=== PATIENT | female | born 1935 | race Caucasian/White ===

== ENCOUNTER 2016-10-11 04:00 | Inpatient (IN) | payer MEDICARE ==
[~2016-10-11] VITALS: Ht 160 cm; Wt 78.4 kg
[~2016-10-11 04:00] MED LIST: ACET500T68 PO; AMLO10TA2 PO; ASPI-612 PO; ATOR40TA59 PO; BYSTOLIC10 MG PO; CALC-104 PO; CELE200C PO; CHOL200074 PO; CLON0.3T PO; CLOP75TA PO; DOCU-150 PO; DOXA2TAB2 PO; FURO80TA3 PO; HYDR-2758 PO; INSU100V11 IJ; ISOS60TA2 PO; LOSA100T6 PO; MECL12.52 PO; MECL25TA3 PO; MELO7.5T29 PO; METF850T2 PO; METO25TA4 PO; NIFE90TA7 PO; NPH,100V SQ; OMEP40CA5 PO; POTA10TA31 PO; POTASSIUM CHLO10 MEQ PO; SPIR25TA3 PO; WARF2.5T83 PO; WARF2TAB7 PO; WARF5TAB7 PO
--- NOTE | 2016-10-11 04:12 | PHYS DOC ---
Past Medical History Past Medical History: CAD, Cancer, CHF, Diabetes-Type II, Hypertension, NV, Other Additional Past Medical Histor: menieres, breast cancer - L lumpectomy, cellulitis - BLE, Past Surgical History: Appendectomy, Cholecystectomy, Hysterectomy, Knee Replacement, Tonsillectomy, Other Additional Past Surgical Histo: lumpectomy in left breast, 2 CARDIAC STENTS AND 3 BALLOONS Alcohol Use: None Drug Use: None Adult General Chief Complaint Chief Complaint: CHEST PAIN HPI HPI Patient is a 81 year old F who presents with chest pain that started at 1 AM this morning. Patient states she woke up with chest pain on her left side nonradiating. Patient has a history of 2 MIs with stents placement in the past. Patient history of PEs and is currently on Coumadin. Patient is brought in by EMS given aspirin and nitroglycerin in route which has brought her pain down to a 5 out of 10. Patient denies any fevers. Patient denies any shortness of breath. Patient denies any nausea/vomiting/diarrhea. Patient has no other complaints. Liquor Clerk: Dr. Cast Pertinent exam findings: 4/ LIZZIE, heart was regular rate and rhythm Lungs are clear to auscultation bilaterally without crackles wheezes or rales ED course: Patient is seen and evaluated upon arrival CBC, CMP, troponin, EKG, INR, chest x -ray, CT angios chest were ordered 0435: Patient's chest pain has improved with some medical nitroglycerin given in the emergency room 0440: Dr. Prater paged 0445: Dr. Benton paged 0450: Dr. Prater called back and stated Dr. Cast is taking call this morning 0453: Discussed CC/HP/PMH with Dr. Benton and recommends Texting EKGs 0456: Dr. Benton agreed that the EKGs do not show a STEMI 0456: Dr. Cast has been paged 0505: Dr. Cast was re-paged 0510: Unable to get a hold of Dr. Cast 0533: Discussed CC/HP/PMH with Dr. Prater and recommends admit to the hospitalist and put Dr. Cast on consult 0543: Discussed CC/HP/PMH with Dr. Reyes and recommends admit 0550: Explained results and plan with the patient to admit and start a heparin drip and consult cardiology [] Pertinent results: 0407: EKG shows normal sinus rhythm rate of 100 no STEMI compared to EKG from May 15, 2016 the lateral depressions were present 0430: Repeat EKG shows normal sinus rhythm rate of [address] changes are still present compared to prior EKG 0445; repeat EKG shows normal sinus rhythm rate of 93 no STEMI and no overall change from previous 2 EKGs Troponin is elevated 0.631 MDM: After reviewing the chart, CC/HPI/PMH, physical exam, [lab results], [ radiological results], I do not believe the patient having a STEMI however given the patient's EKG findings, cardiac history, elevated troponin I believe the patient is having and NSTEMI and will be placed on a heparin drip and admitted to the CVC to the hospitalist with Dr. Cast on consult. After multiple attempts to get a hold of Dr. Cast who admits his own patients we discussed the plan with Dr. Prater who wanted the patient admitted to the hospitalist and have Dr. Cast on consult. Review of Systems Review of Systems GEN: Denies fevers, chills, sweats HEENT: Denies blurred vision, sore throat CV: chest pain RESP: Denies shortness of air, cough GI: Denies n/v/d NEURO: Denies confusion, dizziness MSK: Denies weakness, joint pain/swelling Current Medications Current Medications Current Medications Medications (Trade) Dose Ordered Sig/Huyen Start Time Stop Time Status Last Admin Dose Admin Heparin Sodium (Porcine) (Heparin Sodium) 1,900 unit PRN Q6HRS PRN 10/11/16 05:45 Heparin Sodium/ Dextrose 500 ml @ 0 mls/hr CONT PRN 10/11/16 05:45 Nitroglycerin (Nitrostat) 0.4 mg PRN Q5MIN PRN 10/11/16 04:15 10/11/16 04:55 0.4 MG Sodium Chloride 500 ml @ 500 mls/hr 1X ONCE 10/11/16 04:30 10/11/16 05:29 DC 10/11/16 04:25 500 MLS/HR Allergies Allergies Allergies Coded Allergies Type Severity Reaction Last Updated Verified Iodinated Contrast Media - Oral and Allergy Severe Anaphylaxis 03/18/16 Yes adhesive tape Allergy Intermediate 03/19/16 Yes meperidine Adverse Reaction Intermediate Vomiting 04/19/16 Yes Physical Exam Physical Exam GEN.: No apparent distress. Alert and oriented. HEENT: Head is normocephalic, atraumatic NECK: Supple. LUNGS: CTAB. HEART: RRR, 4/6 LIZZIE. Peripheral pulses intact ABDOMEN: Soft, nontender. Positive bowel sounds. EXTREMITIES: Without any cyanosis. NEUROLOGIC: Normal speech, normal tone PSYCHIATRIC: Normal affect, normal mood. SKIN: No ulcerations Current Patient Data Vital Signs Vital Signs Date Time Temp Pulse Resp B/P (MAP) Pulse Ox O2 Delivery O2 Flow Rate FiO2 10/11/16 04:55 90 179/81 10/11/16 04:40 18 94 Nasal Cannula 2.0 10/11/16 04:11 98.5 98.5 Lab Values Laboratory Tests Test 10/11/16 04:10 White Blood Count 8.4 x10^3/uL (4.0-11.0) Red Blood Count 3.35 x10^6/uL (3.50-5.40) L Hemoglobin 9.8 g/dL (12.0-15.5) L Hematocrit 29.7 % (36.0-47.0) L Mean Corpuscular Volume 89 fL (79-100) Mean Corpuscular Hemoglobin 29 pg (25-35) Mean Corpuscular Hemoglobin Concent 33 g/dL (31-37) Red Cell Distribution Width 15.7 % (11.5-14.5) H Platelet Count 352 x10^3/uL (140-400) Neutrophils (%) (Auto) 77 % (31-73) H Lymphocytes (%) (Auto) 12 % (24-48) L Monocytes (%) (Auto) 7 % (0-9) Eosinophils (%) (Auto) 4 % (0-3) H Basophils (%) (Auto) 1 % (0-3) Neutrophils # (Auto) 6.4 x10^3uL (1.8-7.7) Lymphocytes # (Auto) 1.0 x10^3/uL (1.0-4.8) Monocytes # (Auto) 0.6 x10^3/uL (0.0-1.1) Eosinophils # (Auto) 0.3 x10^3/uL (0.0-0.7) Basophils # (Auto) 0.1 x10^3/uL (0.0-0.2) Prothrombin Time 14.4 SEC (11.7-14.0) H Prothrombin Time INR 1.2 (0.8-1.1) H Sodium Level 134 mmol/L (136-145) L Potassium Level 4.4 mmol/L (3.5-5.1) Chloride Level 99 mmol/L (98-107) Carbon Dioxide Level 30 mmol/L (21-32) Anion Gap 5 (6-14) L Blood Urea Nitrogen 18 mg/dL (7-20) Creatinine 1.0 mg/dL (0.6-1.0) Estimated GFR (Cockcroft-Gault) 53.3 BUN/Creatinine Ratio 18 (6-20) Glucose Level 356 mg/dL (70-99) H Calcium Level 10.5 mg/dL (8.5-10.1) H Total Bilirubin 0.3 mg/dL (0.2-1.0) Aspartate Amino Transferase (AST) 18 U/L (15-37) Alanine Aminotransferase (ALT) 18 U/L (14-59) Alkaline Phosphatase 131 U/L (46-116) H Troponin I Quantitative 0.631 ng/mL (0.000-0.055) Total Protein 7.3 g/dL (6.4-8.2) Albumin 2.2 g/dL (3.4-5.0) L Albumin/Globulin Ratio 0.4 (1.0-1.7) L Laboratory Tests 10/11/16 04:10 Laboratory Tests 10/11/16 04:10 EKG EKG 0407: EKG shows normal sinus rhythm rate of 100 no STEMI compared to EKG from May 15, 2016 the lateral depressions were present 0430: Repeat EKG shows normal sinus rhythm rate of [address] changes are still present compared to prior EKG 0445; repeat EKG shows normal sinus rhythm rate of 93 no STEMI and no overall change from previous 2 EKGs Radiology/Procedures Radiology/Procedures Chest x-ray shows improvement of pulmonary congestion in the lower lobes bilaterally [] Course & Med Decision Making Course & Med Decision Making Pertinent Labs and Imaging studies reviewed. (See chart for details) Critical care time was 35 minutes exclusive of procedures. [] Dragon Disclaimer Dragon Disclaimer This electronic medical record was generated, in whole or in part, using a voice recognition dictation system. Departure Departure Impression: Primary Impression: NSTEMI (non-ST elevated myocardial infarction) Disposition: 09 ADMITTED INPATIENT Admitting Physician: Disha Reyes Condition: STABLE Referrals: ROSELIA KUMAR MD (PCP) JAMEEL CASTILLO DO Oct 11, 2016 04:12
[2016-10-11] MEDS ORDERED: IV NORMAL SALINE 1000ML BAG 1,000 ML IV ONE (04:15)
[2016-10-11 04:21] LABS: BASO # 0.1 x10^3/uL (0.0-0.2); BASO % 1 % (0-3); EOS % 4 % (0-3); HEMATOCRIT 29.7 % (36.0-47.0); HEMOGLOBIN 9.8 g/dL (12.0-15.5); LYMPH % 12 % (24-48); MEAN CORPUSCULAR HEMOGLOBIN 29 pg (25-35); MEAN CORPUSCULAR HGB CONC 33 g/dL (31-37); MEAN CORPUSCULAR VOLUME 89 fL (79-100); MONO % 7 % (0-9); NEUT % 77 % (31-73); PLATELET COUNT 352 x10^3/uL (140-400); RED BLOOD COUNT 3.35 x10^6/uL (3.50-5.40); RED CELL DISTRIBUTION WIDTH 15.7 % (11.5-14.5); WHITE BLOOD COUNT 8.4 x10^3/uL (4.0-11.0)
[2016-10-11] MEDS: NITROGLYCERIN SUBLINGUAL 0.4 MG BOTTLE OF 25. SL PRN ×2 (04:25→04:55)
[2016-10-11 04:29] LABS: INR 1.2 (0.8-1.1); PROTHROMBIN TIME PATIENT 14.4 SEC (11.7-14.0)
[2016-10-11] MEDS ORDERED: IV NORMAL SALINE 500ML BAG 500 ML IV ONE (04:30)
[2016-10-11 04:36] LABS: CALCIUM 10.5 mg/dL (8.5-10.1); GFR 53.3; POTASSIUM 4.4 mmol/L (3.5-5.1)
[2016-10-11 04:40] LABS: ALBUMIN 2.2 g/dL (3.4-5.0); ALBUMIN/GLOBULIN RATIO 0.4 (1.0-1.7); TOTAL BILIRUBIN 0.3 mg/dL (0.2-1.0); TOTAL PROTEIN 7.3 g/dL (6.4-8.2)
[2016-10-11] MEDS ORDERED: HEPARIN for IV BOLUS 10,000 UNIT/10 ML VIAL. IV PRN (05:45)
[2016-10-11] MEDS ORDERED: MORPHINE SULFATE 4 MG/ML DISP.SYRIN. IV PRN (06:00)
[2016-10-11] MEDS ORDERED: ONDANSETRON PF 4 MG/2 ML VIAL. IV PRN ×2 (06:00→08:36)
[2016-10-11] MEDS ORDERED: NITROGLYCERIN SUBLINGUAL 0.4 MG BOTTLE OF 25. SL PRN (06:00)
[2016-10-11] MEDS ORDERED: ACETAMINOPHEN 325 MG TABLET. PO PRN (06:00)
[2016-10-11] MEDS: HEPARIN 25,000UTS/500ML PREMIX 500 ML IV PRN ×2 (06:06→10:00)
--- NOTE | 2016-10-11 07:02 | EKG ---
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
--- NOTE | 2016-10-11 07:08 | EKG ---
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
--- NOTE | 2016-10-11 07:08 | EKG ---
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
--- NOTE | 2016-10-11 07:31 | RAD ---
Indication chest pain. A single view of the chest was obtained. Comparison is made to a study May 22, 2016. There is unchanged cardiomegaly. There are bilateral pulmonary infiltrates compatible with congestive heart failure. A consolidated pneumonia is not seen. Significant pleural fluid is not present. There is no pneumothorax. There are degenerative changes about the shoulders. IMPRESSION: Stable cardiomegaly. Pulmonary infiltrates compatible with congestive heart failure. No focal consolidated process seen
--- NOTE | 2016-10-11 07:35 | ACF ---
Admission Forms Criteria MYOCARDIAL INFARCTION Clinical Indications for Admission to Inpatient Care (Place 'X' for any and all applicable criteria): Admission is indicated for 1 or more of the following (1)(2)(3)(4): [X]I. Acute IN [ ]II. Contraindications and/or Inappropriate clinical situations for Observational Care in patients with Myocardial Infarction, when ANY ONE of the following is required: [ ]a) Patient with High risk of cardiac embolism (e.g, patients with previous cardiac embolism, LVEF < 40%, age >75 and patients with prosthetic valve) 18 [ ]b) Patient with Moderate risk including DM patient, CAD and patient aged 65-75 18 [ ]c) Patient with any change in cardiac biomarker especially troponin should be managed as high risk in an inpatient setting 19 [ ]d) Physician judgement irrespective of ECG and other diagnostic findings 20 [ ]III.General contraindications and/or Inappropriate clinical situations for Observational Care in patients with Myocardial Infarction, when ANY ONE of the following is required: [ ]a) Prediction of prolongation of LOS based on ANY ONE of the following may be considered as a contraindication for observational care 2, 3, 4, 5, 6, 7, 8, 9, 10, 11 [ ]i) Age > 65 yrs. [ ]ii) Patient arriving by ambulance [ ]iii) Patient with high acuity [ ]iv) Patient requiring vital sign monitoring [ ]v) Patient on IV medication [ ]b) Systolic blood pressures greater than or equal to 180mmHg 3,12 [ ]c) Patient with altered mental status including delirium and other alteration of consciousness, (3) [ ]d) Patient whose discharge disposition will be to a senior living home or rehabilitation home should not be managed in Emergency Department Observation Unit. CMS rule requires 3 days hospital stay before such placement. 3,13 [ ]e) Patient with failure to thrive due to broad array of etiologies 3 ,16,17 [ ]f) Inability to ambulate 3,14 Extended stay beyond goal length of stay may be needed for (1)(18)(20)(24)(25): [ ]a) Hemodynamic instability, persisting symptoms after intensive medical management, or recurring severe, prolonged symptoms [ ]b) Intravascular procedural complications such as acute vessel closure, stent thrombosis, stent malposition, or vessel dissection (26)(27)(28) [ ]c) Extravascular procedural complications such as retroperitoneal hematoma , pericardial effusion, or cardiac tamponade [ ]d) Entry site complications causing bleeding, hematoma or distal ischemia and requiring ongoing monitoring, surgical repair or surgical thrombectomy. Dangerous arrhythmia [ ]e) Complicated percutaneous coronary intervention (e.g., unsuccessful percutaneous coronary intervention or percutaneous coronary intervention of non- [place] vessel) [ ]f) Urgent or emergent surgery for complications of IN (e.g., ventricular rupture, valvular insufficiency) [ ]g) Surgical revascularization via coronary artery bypass graft [ ]h) Heart failure (e.g., pulmonary edema) [ ]i) Unstable pulmonary comorbidities, including COPD or pneumonia (31) [ ]j) Acute renal failure The original [employer] content created by [employer] has been revised. The portions of the content which have been revised are identified through the use of italic text or in bold, and [facility] [employer] has neither reviewed nor approved the modified material. All other unmodified content is copyright [employer] [facility] [employer] Please see references footnoted in the original [facility] [employer] center[facility] edition 2016 Admission Criteria Met?: Yes TITO MULLINS Oct 11, 2016 07:35
[2016-10-11 08:22] VITALS: BP 166/69
[2016-10-11] MEDS ORDERED: LABETALOL 20 MG/4 ML DISP.SYRIN. IVP PRN (08:45)
[2016-10-11] MEDS ORDERED: HYDROcodone/APAP 5/325MG 1 TAB TABLET PO PRN (08:45)
[2016-10-11] MEDS ORDERED: ACETAMINOPHEN 500 MG TABLET PO PRN (08:45)
[2016-10-11] MEDS ORDERED: DEXTROSE 50% 25 GM / 50ML DISP.SYRIN. IV PRN (08:45)
[2016-10-11] MEDS ORDERED: ASPIRIN ENTERIC COATED 81 MG TABLET.DR. PO SCH (09:00)
[2016-10-11] MEDS: FUROSEMIDE 80 MG TABLET. PO SCH ×2 (09:00→15:13)
[2016-10-11] MEDS: CLOPIDOGREL BISULFATE 75 MG TABLET PO SCH (09:00)
[2016-10-11] MEDS ORDERED: INSULIN ASPART 300 UNITS/3 ML INSULN.PEN SQ ONE (09:45)
[2016-10-11] MEDS: INSULIN DETEMIR 300 UNITS/3 ML INSULN.PEN. SQ SCH ×2 (10:00→21:00)
--- NOTE | 2016-10-11 11:43 | PDOC1 ---
History and Physical Date of Admission Date of Admission DATE: 10/11/16 TIME: 11:36 Identification/Chief Complaint Chief Complaint cp at sleep Problems: Source Source: Caregiver, Chart review, Patient History of Present Illness History of Present Illness 81 [address] Coronado for 30 yrs, i last admitted within the past yr for CHF, she does have extensive cardiac hx including IE? [place] before. This time, CP that woke her up from sleep, similar to CP she had when she had the SD in spet. Left sided, sharp, alleviated by meds at ER,. Admitted for nSTEMi, some ST t wave depression, Started on heparin gtt, Trops 0.6 Currently comfortable. Past Medical History Cardiovascular: CAD, CHF, HTN, SD, Valve insufficiency, Pulmonary hypertension GI: GERD, Gastritis Heme/Onc: Cancer Renal/: Chronic renal insuff Endocrine: Diabetes Past Surgical History Past Surgical History: Pacemaker, Other Family History Family History: No Significant, Diabetes, Hypertension Social History Smoke: No ALCOHOL: none Drugs: None Current Problem List Problem List Problems Medical Problems: (1) NSTEMI (non-ST elevated myocardial infarction) Status: Acute Problems: Current Medications Current Medications Current Medications Sodium Chloride 1,000 ml @ 1,000 mls/hr 1X ONCE IV ; Start 10/11/16 at 04:15; Stop 10/11/16 at 04:17; Status DC Nitroglycerin (Nitrostat) 0.4 mg PRN Q5MIN PRN SL CHEST PAIN Last administered on 10/11/16 04:55; Start 10/11/16 at 04:15 Sodium Chloride 500 ml @ 500 mls/hr 1X ONCE IV Last administered on 10/11/16 04:25; Start 10/11/16 at 04:30; Stop 10/11/16 at 05:29; Status DC Heparin Sodium/ Dextrose 500 ml @ 0 mls/hr CONT PRN IV SEE I/O RECORD Last administered on 10/11/16 06:06; Start 10/11/16 at 05:45 Heparin Sodium (Porcine) (Heparin Sodium) 1,900 unit PRN Q6HRS PRN IV FOR UFH LEVEL LESS THAN 0.2 Last administered on 10/11/16 06:04; Start 10/11/16 at 05:45 Ondansetron HCl (Zofran) 4 mg PRN Q8HRS PRN IV NAUSEA/VOMITING; Start 10/11/16 at 06:00; Stop 10/11/16 at 08:38; Status DC Morphine Sulfate 4 mg PRN Q2HR PRN IV PAIN; Start 10/11/16 at 06:00; Stop at 05:59 Acetaminophen (Tylenol) 650 mg PRN Q4HRS PRN PO FEVER; Start 10/11/16 at 06:00; Stop 10/11/16 at 09:49; Status DC Nitroglycerin (Nitrostat) 0.4 mg PRN Q5MIN PRN SL CHEST PAIN; Start 10/11/16 at 06:00; Stop 10/12/16 at 05:59 Ondansetron HCl (Zofran) 4 mg PRN Q6HRS PRN IV NAUSEA/VOMITING; Start 10/11/16 at 08:36; Stop 10/12/16 at 08:35 Acetaminophen (Tylenol) 500 mg PRN QID PRN PO PAIN; Start 10/11/16 at 08:45 Amlodipine Besylate (Norvasc) 10 mg DAILY PO ; Start 10/11/16 at 09:00 Aspirin (Ecotrin) 325 mg DAILY PO ; Start 10/11/16 at 09:00 Atorvastatin Calcium (Lipitor) 40 mg HS PO ; Start 10/11/16 at 21:00 Clopidogrel Bisulfate (Plavix) 75 mg QODAY PO ; Start 10/11/16 at 09:00 Docusate Sodium (Colace) 200 mg HS PO ; Start 10/11/16 at 21:00 Furosemide (Lasix) 80 mg BID92 PO ; Start 10/11/16 at 09:00 Acetaminophen/ Hydrocodone Bitart (Lortab 5/325) 1 tab PRN Q12HR PRN PO PAIN; Start 10/11/16 at 08:45 Isosorbide Mononitrate (Imdur) 60 mg DAILY PO ; Start 10/11/16 at 09:00 Meclizine HCl (Antivert) 12.5 mg BID PO ; Start 10/11/16 at 09:00 Meloxicam (Mobic) 7.5 mg DAILY PO ; Start 10/11/16 at 09:00 Metoprolol Tartrate (Lopressor) 25 mg BID PO ; Start 10/11/16 at 09:00 Spironolactone (Aldactone) 25 mg DAILY PO ; Start 10/11/16 at 09:00 Warfarin Sodium (Coumadin) 2.5 mg QTUTHSASU PO ; Start 10/11/16 at 16:00 Calcium/Vitamin D (Oscal D 500mg/ 200uts) 1 tab DAILYWBKFT PO ; Start 10/11/16 at 10:00 Vitamin D (Vitamin D3) 2,000 unit DAILY PO ; Start 10/11/16 at 10:00 Losartan Potassium (Cozaar) 50 mg DAILY PO ; Start 10/11/16 at 10:00 Insulin Detemir (Levemir) 20 units QHS SQ ; Start 10/11/16 at 21:00 Insulin Detemir (Levemir) 40 units DAILYWBKFT SQ ; Start 10/11/16 at 10:00 Pantoprazole Sodium (Protonix) 40 mg DAILYAC PO ; Start 10/11/16 at 11:30 Potassium Chloride (Klor-Con) 10 meq MoWeFr PO ; Start 10/11/16 at 08:00 Insulin Aspart (NovoLOG) 0-9 UNITS TIDWMEALS SQ ; Start 10/11/16 at 12:00 Dextrose (Dextrose 50%-Water Syringe) 12.5 gm PRN Q15MIN PRN IV SEE COMMENTS; Start 10/11/16 at 08:45 Labetalol HCl (Normodyne) 10 mg PRN Q2HR PRN IVP HYPERTENSION, SEE COMMENTS; Start 10/11/16 at 08:45 Insulin Aspart (NovoLOG) 12 units 1X ONCE SQ Last administered on 10/11/16t 09: 56; Start 10/11/16 at 09:45; Stop 10/11/16 at 09:46; Status DC Warfarin Sodium (Coumadin Per Physician) 1 each PRN DAILY PRN MC SEE COMMENTS; Start 10/11/16 at 09:45 Active Scripts Active Reported Clopidogrel (Clopidogrel Bisulfate) 75 Mg Tablet 1 Tab PO QODAY Metoprolol Tartrate 25 Mg Tablet 1 Tab PO BID Acetaminophen 500 Mg Tablet 500 Mg PO PRN PRN Warfarin Sodium 2 Mg Tablet 2.5 Mg PO QTUTHSASU Potassium Chloride 10 Meq Capsule.er 10 Meq PO 3X/WEEK Omeprazole 40 Mg Capsule.dr 1 Cap PO DAILYAC Meloxicam 7.5 Mg Tablet 1 Tab PO DAILY Meclizine Hcl 12.5 Mg Tablet 1 Tab PO BID Hydrocodone-Apap 5-325 (Hydrocodone Bit/Acetaminophen) 1 Each Tablet 1 Tab PO Q12HR PRN Humulin N (Nph, Human Insulin Isophane) 100 Unit/1 Ml Vial 20 Unit SQ HS Humulin N (Nph, Human Insulin Isophane) 100 Unit/1 Ml Vial 40 Unit SQ DAILYWBKFT Spironolactone 25 Mg Tablet 25 Mg PO DAILY Furosemide 80 Mg Tablet 80 Mg PO BID Stool Softener (Docusate Sodium) 100 Mg Capsule 200 Mg PO HS Amlodipine Besylate 10 Mg Tablet 10 Mg PO DAILY Losartan Potassium 100 Mg Tablet 100 Mg PO DAILY Atorvastatin Calcium 40 Mg Tablet 40 Mg PO HS Citracal + D Maximum Caplet (Calcium Citrate/Vitamin D3) 1 Each Tablet 1 Each PO DAILY Isosorbide Mononitrate Er (Isosorbide Mononitrate) 60 Mg Tab.er.24h 60 Mg PO DAILY Vitamin D-3 (Cholecalciferol (Vitamin D3)) 2,000 Unit Capsule 2,000 Unit PO DAILY Aspirin Ec (Aspirin) 81 Mg Tablet.dr 325 Mg PO DAILY Allergies Allergies: Coded Allergies: Iodinated Contrast Media - Oral and (Verified Allergy, Severe, Anaphylaxis , 03/18/16) adhesive tape (Verified Allergy, Intermediate, 03/19/16) meperidine (Verified Adverse Reaction, Intermediate, Vomiting, 04/19/16) ROS General: No: Chills, Night Sweats, Fatigue, Malaise, Appetite, Other PSYCHOLOGICAL ROS: No: Anxiety, Behavioral Disorder, Concentration difficultie , Decreased libido, Depression, Disorientation, Hallucinations, Hostility, Irritablity, Memory difficulties, Mood Swings, Obsessive thoughts, Physical abuse, Sexual abuse, Sleep disturbances, Suicidal ideation, Other Eyes: No Blurry vision, No Decreased vision, No Double vision, No Dry eyes, No Excessive tearing, No Eye Pain, No Itchy Eyes, No Loss of vision, No Photophobia , No Scotomata, No Uses contacts, No Uses glasses, No Other HEENT: No: Heacaches, Visual Changes, Hearing change, Nasal congestion, Nasal discharge, Oral lesions, Sinus pain, Sore Throat, Epistaxis, Sneezing, Snoring, Tinnitus, Vertigo, Vocal changes, Other ALLERGY AND IMMUNOLOGY: No: Hives, Insect Bite Sensitivity, Itchy/Watery Eyes, Nasal Congestion, Post Nasal Drip, Seasonal Allergies, Other Hematological and Lymphatic: No: Bleeding Problems, Blood Clots, Blood Transfusions, Brusing, Night Sweats, Pallor, Swollen Lymph Nodes, Other ENDOCRINE: No: Breast Changes, Galactorrhea, Hair Pattern Changes, Hot Flashes , Malaise/lethargy, Mood Swings, Palpitations, Polydipsia/polyuria, Skin Changes , Temperature Intolerance, Unexpected Weight Changes, Other Breast: No New/Changing Breast Lumps, No Nipple changes, No Nipple discharge, No Other Respiratory: No: Cough, Hemoptysis, Orthopnea, Pleuritic Pain, Shortness of breath, SOB with excertion, Sputum Changes, Stridor, Tachypnea, Wheezing, Other Cardiovascular: yes Chest Pain Gastrointestinal: No Nausea, No Vomiting, No Abdominal Pain, No Diarrhea, No Constipation, No Melena, No Hematochezia, No Other Genitourinary: No Dysuria, No Frequency, No Incontinence, No Hematuria, No Retention, No Discharge, No Urgency, No Pain, No Flank Pain, No Other, No , No , No , No , No , No , No Musculoskeletal: No Gait Disturbance, No Joint Pain, No Joint Stiffness, No Joint Swelling, No Muscle Pain, No Muscular Weakness, No Pain In:, No Swelling In:, No Other Neurological: No Behavorial Changes, No Bowel/Bladder ControlChng, No Confusion , No Dizziness, No Gait Disturbance, No Headaches, No Impaired Coord/balance, No Memory Loss, No Numbness/Tingling, No Seizures, No Speech Problems, No Tremors, No Visual Changes, No Weakness, No Other Skin: No Dry Skin, No Eczema, No Hair Changes, No Lumps, No Mole Changes, No Mottling, No Nail Changes, No Pruritus, No Rash, No Skin Lesion Changes, No Other, No Acne Physical Exam General: Alert, Oriented X3, Cooperative, No acute distress HEENT: PERRLA, EOMI Lungs: Clear to auscultation, Normal air movement Heart: S1S2, RRR, no thrills, no rubs, no gallops, no murmurs Cardiovascular: S1, S2 Breasts: Normal, Rt breast nml w/o mass, Lt breast nml w/o mass, Nipples normal Abdomen: Normal bowel sounds, Soft, No tenderness, No hepatosplenomegaly, No masses Rectal Exam: not examined Extremities: No clubbing, No cyanosis, No edema, Normal pulses, No tenderness/ swelling Skin: No rashes, No breakdown, No significant lesion Neuro: Normal gait, Normal speech, Strength at 5/5 X4 ext, Normal tone, Sensation intact, Cranial nerves 3-12 NL, Reflexes 2+ Psych/Mental Status: Mental status NL, Mood NL Vitals Vitals Vital Signs Date Time Temp Pulse Resp B/P (MAP) Pulse Ox O2 Delivery O2 Flow Rate FiO2 10/11/16 08:22 97.9 17 166/69 (101) 97 Room Air 97.9 10/11/16 07:40 2.0 10/11/16 06:31 80 Labs Labs Laboratory Tests Test 10/11/16 04:10 10/11/16 08:34 White Blood Count 8.4 x10^3/uL (4.0-11.0) Red Blood Count 3.35 x10^6/uL (3.50-5.40) Hemoglobin 9.8 g/dL (12.0-15.5) Hematocrit 29.7 % (36.0-47.0) Mean Corpuscular Volume 89 fL (79-100) Mean Corpuscular Hemoglobin 29 pg (25-35) Mean Corpuscular Hemoglobin Concent 33 g/dL (31-37) Red Cell Distribution Width 15.7 % (11.5-14.5) Platelet Count 352 x10^3/uL (140-400) Neutrophils (%) (Auto) 77 % (31-73) Lymphocytes (%) (Auto) 12 % (24-48) Monocytes (%) (Auto) 7 % (0-9) Eosinophils (%) (Auto) 4 % (0-3) Basophils (%) (Auto) 1 % (0-3) Neutrophils # (Auto) 6.4 x10^3uL (1.8-7.7) Lymphocytes # (Auto) 1.0 x10^3/uL (1.0-4.8) Monocytes # (Auto) 0.6 x10^3/uL (0.0-1.1) Eosinophils # (Auto) 0.3 x10^3/uL (0.0-0.7) Basophils # (Auto) 0.1 x10^3/uL (0.0-0.2) Prothrombin Time 14.4 SEC (11.7-14.0) Prothromb Time International Ratio 1.2 (0.8-1.1) Sodium Level 134 mmol/L (136-145) Potassium Level 4.4 mmol/L (3.5-5.1) Chloride Level 99 mmol/L (98-107) Carbon Dioxide Level 30 mmol/L (21-32) Anion Gap 5 (6-14) Blood Urea Nitrogen 18 mg/dL (7-20) Creatinine 1.0 mg/dL (0.6-1.0) Estimated GFR (Cockcroft-Gault) 53.3 BUN/Creatinine Ratio 18 (6-20) Glucose Level 356 mg/dL (70-99) Calcium Level 10.5 mg/dL (8.5-10.1) Total Bilirubin 0.3 mg/dL (0.2-1.0) Aspartate Amino Transf (AST/SGOT) 18 U/L (15-37) Alanine Aminotransferase (ALT/SGPT) 18 U/L (14-59) Alkaline Phosphatase 131 U/L (46-116) Troponin I Quantitative 0.631 ng/mL (0.000-0.055) Total Protein 7.3 g/dL (6.4-8.2) Albumin 2.2 g/dL (3.4-5.0) Albumin/Globulin Ratio 0.4 (1.0-1.7) Glucose (Fingerstick) 354 mg/dL (70-99) Laboratory Tests Test 10/11/16 04:10 10/11/16 08:34 White Blood Count 8.4 x10^3/uL (4.0-11.0) Red Blood Count 3.35 x10^6/uL (3.50-5.40) Hemoglobin 9.8 g/dL (12.0-15.5) Hematocrit 29.7 % (36.0-47.0) Mean Corpuscular Volume 89 fL (79-100) Mean Corpuscular Hemoglobin 29 pg (25-35) Mean Corpuscular Hemoglobin Concent 33 g/dL (31-37) Red Cell Distribution Width 15.7 % (11.5-14.5) Platelet Count 352 x10^3/uL (140-400) Neutrophils (%) (Auto) 77 % (31-73) Lymphocytes (%) (Auto) 12 % (24-48) Monocytes (%) (Auto) 7 % (0-9) Eosinophils (%) (Auto) 4 % (0-3) Basophils (%) (Auto) 1 % (0-3) Neutrophils # (Auto) 6.4 x10^3uL (1.8-7.7) Lymphocytes # (Auto) 1.0 x10^3/uL (1.0-4.8) Monocytes # (Auto) 0.6 x10^3/uL (0.0-1.1) Eosinophils # (Auto) 0.3 x10^3/uL (0.0-0.7) Basophils # (Auto) 0.1 x10^3/uL (0.0-0.2) Prothrombin Time 14.4 SEC (11.7-14.0) Prothromb Time International Ratio 1.2 (0.8-1.1) Sodium Level 134 mmol/L (136-145) Potassium Level 4.4 mmol/L (3.5-5.1) Chloride Level 99 mmol/L (98-107) Carbon Dioxide Level 30 mmol/L (21-32) Anion Gap 5 (6-14) Blood Urea Nitrogen 18 mg/dL (7-20) Creatinine 1.0 mg/dL (0.6-1.0) Estimated GFR (Cockcroft-Gault) 53.3 BUN/Creatinine Ratio 18 (6-20) Glucose Level 356 mg/dL (70-99) Calcium Level 10.5 mg/dL (8.5-10.1) Total Bilirubin 0.3 mg/dL (0.2-1.0) Aspartate Amino Transf (AST/SGOT) 18 U/L (15-37) Alanine Aminotransferase (ALT/SGPT) 18 U/L (14-59) Alkaline Phosphatase 131 U/L (46-116) Troponin I Quantitative 0.631 ng/mL (0.000-0.055) Total Protein 7.3 g/dL (6.4-8.2) Albumin 2.2 g/dL (3.4-5.0) Albumin/Globulin Ratio 0.4 (1.0-1.7) Glucose (Fingerstick) 354 mg/dL (70-99) VTE Prophylaxis Ordered VTE Prophylaxis Devices: Yes VTE Pharmacological Prophylaxi: Yes Assessment/Plan Assessment/Plan 1. NSTEMI 2. DM 2 on insulin, uncontrolled 3. 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 ARF, vasomotor DNR in [place] past but full code in chart now PLAn: Admit CArds consult Follow cards recs SSI resume home meds STarted on heparin gtt ON warf TTHSat INR 1,.2 only ALso on heparin gtt and plavix and ASA - will dw cards JOVANA GARCIA MD Oct 11, 2016 11:43
[2016-10-11 11:50] VITALS: BP 162/72
[2016-10-11] MEDS: LOSARTAN POTASSIUM 50 MG TABLET. PO SCH (12:39)
[2016-10-11] MEDS: CALCIUM CARB/VIT D3 500/200 TABLET. PO SCH (12:40)
[2016-10-11] MEDS: PANTOPRAZOLE 40 MG TABLET.DR. PO SCH (12:40)
[2016-10-11] MEDS: CHOLECALCIFEROL (VITAMIN D3) 1,000 UNIT TABLET PO SCH (12:40)
[2016-10-11] MEDS: POTASSIUM CHLORIDE 10 MEQ TABLET.ER. PO SCH (12:40)
[2016-10-11] MEDS: METOPROLOL TART IMMED RELEASE 25 MG TABLET. PO SCH ×2 (12:40→21:00)
[2016-10-11] MEDS: SPIRONOLACTONE 25 MG TABLET PO SCH (12:40)
[2016-10-11] MEDS: ISOSORBIDE MONONITRATE ER 60 MG TAB.ER.24H. PO SCH (12:40)
[2016-10-11] MEDS: MECLIZINE HCL 12.5 MG TABLET. PO SCH ×2 (12:41→21:00)
[2016-10-11] MEDS: amLODIPine BESYLATE 10 MG TABLET PO SCH (12:41)
[2016-10-11] MEDS: MELOXICAM 7.5 MG TABLET PO SCH (12:41)
[2016-10-11] MEDS: INSULIN ASPART 300 UNITS/3 ML INSULN.PEN SQ SCH ×2 (12:48→17:52)
[2016-10-11 15:00] VITALS: BP 148/68
[2016-10-11] MEDS: ASPIRIN ENTERIC COATED 325 MG TABLET.DR. PO SCH (15:13)
[2016-10-11] MEDS: WARFARIN 2.5 MG TABLET. PO SCH (16:00)
[2016-10-11 19:05] VITALS: BP 159/67
[2016-10-11] MEDS: DOCUSATE SODIUM 100 MG CAPSULE. PO SCH (21:00)
[2016-10-11] MEDS: ATORVASTATIN CALCIUM 40 MG TABLET. PO SCH (21:00)
--- NOTE | 2016-10-11 21:12 | PDOC2 ---
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 She has completed weeks of IV antibiotics. The patient had some episodes of chest pains that were on the left side and came in. There was a mild elevation of the troponin and no significant changes in her EKG. At the time that I saw her she was resting comfortably and denies having any chest pains. No dyspnea at this point. Past Medical History Cardiovascular: CAD, CHF, HTN, VA, Valve insufficiency, Pulmonary hypertension , Other (SBE) GI: GERD, Gastritis Heme/Onc: Cancer Renal/: Chronic renal insuff Endocrine: Diabetes Past Surgical History Past Surgical History: Pacemaker, Other Family History Family History: No Significant, Diabetes, Hypertension Social History No ALCOHOL: none Drugs: None Lives: with Family Current Problem List Problem List Problems Medical Problems: (1) NSTEMI (non-ST elevated myocardial infarction) Status: Acute Current Medications Current Medications Current Medications Sodium Chloride 1,000 ml @ 1,000 mls/hr 1X ONCE IV ; Start 10/11/16 at 04:15; Stop 10/11/16 at 04:17; Status DC Nitroglycerin (Nitrostat) 0.4 mg PRN Q5MIN PRN SL CHEST PAIN Last administered on 10/11/16 04:55; Start 10/11/16 at 04:15 Sodium Chloride 500 ml @ 500 mls/hr 1X ONCE IV Last administered on 10/11/16 04:25; Start 10/11/16 at 04:30; Stop 10/11/16 at 05:29; Status DC Heparin Sodium/ Dextrose 500 ml @ 0 mls/hr CONT PRN IV SEE I/O RECORD Last administered on 10/11/16 06:06; Start 10/11/16 at 05:45 Heparin Sodium (Porcine) (Heparin Sodium) 1,900 unit PRN Q6HRS PRN IV FOR UFH LEVEL LESS THAN 0.2 Last administered on 10/11/16 06:04; Start 10/11/16 at 05:45 Ondansetron HCl (Zofran) 4 mg PRN Q8HRS PRN IV NAUSEA/VOMITING; Start 10/11/16 at 06:00; Stop 10/11/16 at 08:38; Status DC Morphine Sulfate 4 mg PRN Q2HR PRN IV PAIN; Start 10/11/16 at 06:00; Stop at 05:59 Acetaminophen (Tylenol) 650 mg PRN Q4HRS PRN PO FEVER; Start 10/11/16 at 06:00; Stop 10/11/16 at 09:49; Status DC Nitroglycerin (Nitrostat) 0.4 mg PRN Q5MIN PRN SL CHEST PAIN; Start 10/11/16 at 06:00; Stop 10/12/16 at 05:59 Ondansetron HCl (Zofran) 4 mg PRN Q6HRS PRN IV NAUSEA/VOMITING; Start 10/11/16 at 08:36; Stop 10/12/16 at 08:35 Acetaminophen (Tylenol) 500 mg PRN QID PRN PO PAIN; Start 10/11/16 at 08:45 Amlodipine Besylate (Norvasc) 10 mg DAILY PO Last administered on 10/11/16 12: 41; Start 10/11/16 at 09:00 Aspirin (Ecotrin) 325 mg DAILY PO ; Start 10/11/16 at 09:00; Status Cancel Atorvastatin Calcium (Lipitor) 40 mg HS PO Last administered on 10/11/16 21:00 ; Start 10/11/16 at 21:00 Clopidogrel Bisulfate (Plavix) 75 mg QODAY PO ; Start 10/11/16 at 09:00 Docusate Sodium (Colace) 200 mg HS PO Last administered on 10/11/16 21:00; Start 10/11/16 at 21:00 Furosemide (Lasix) 80 mg BID92 PO Last administered on 10/11/16 15:13; Start at 09:00 Acetaminophen/ Hydrocodone Bitart (Lortab 5/325) 1 tab PRN Q12HR PRN PO PAIN; Start 10/11/16 at 08:45 Isosorbide Mononitrate (Imdur) 60 mg DAILY PO Last administered on 10/11/16 12: 40; Start 10/11/16 at 09:00 Meclizine HCl (Antivert) 12.5 mg BID PO Last administered on 10/11/16 21:00; Start 10/11/16 at 09:00 Meloxicam (Mobic) 7.5 mg DAILY PO Last administered on 10/11/16 12:41; Start at 09:00 Metoprolol Tartrate (Lopressor) 25 mg BID PO Last administered on 10/11/16 21: 00; Start 10/11/16 at 09:00 Spironolactone (Aldactone) 25 mg DAILY PO Last administered on 10/11/16 12:40; Start 10/11/16 at 09:00 Warfarin Sodium (Coumadin) 2.5 mg QTUTHSASU PO ; Start 10/11/16 at 16:00 Calcium/Vitamin D (Oscal D 500mg/ 200uts) 1 tab DAILYWBKFT PO Last administered on 10/11/16 12:40; Start 10/11/16 at 10:00 Vitamin D (Vitamin D3) 2,000 unit DAILY PO Last administered on 10/11/16 12:40 ; Start 10/11/16 at 10:00 Losartan Potassium (Cozaar) 50 mg DAILY PO Last administered on 10/11/16 12:39 ; Start 10/11/16 at 10:00 Insulin Detemir (Levemir) 20 units QHS SQ Last administered on 10/11/16 21:00; Start 10/11/16 at 21:00 Insulin Detemir (Levemir) 40 units DAILYWBKFT SQ ; Start 10/11/16 at 10:00 Pantoprazole Sodium (Protonix) 40 mg DAILYAC PO Last administered on 10/11/16 12:40; Start 10/11/16 at 11:30 Potassium Chloride (Klor-Con) 10 meq MoWeFr PO Last administered on 10/11/16 12 :40; Start 10/11/16 at 08:00 Insulin Aspart (NovoLOG) 0-9 UNITS TIDWMEALS SQ Last administered on 10/11/16 17:52; Start 10/11/16 at 12:00 Dextrose (Dextrose 50%-Water Syringe) 12.5 gm PRN Q15MIN PRN IV SEE COMMENTS; Start 10/11/16 at 08:45 Labetalol HCl (Normodyne) 10 mg PRN Q2HR PRN IVP HYPERTENSION, SEE COMMENTS; Start 10/11/16 at 08:45 Insulin Aspart (NovoLOG) 12 units 1X ONCE SQ Last administered on 10/11/16 09: 56; Start 10/11/16 at 09:45; Stop 10/11/16 at 09:46; Status DC Warfarin Sodium (Coumadin Per Physician) 1 each PRN DAILY PRN MC SEE COMMENTS Last administered on 10/11/16 14:23; Start 10/11/16 at 09:45 Aspirin (Ecotrin) 325 mg DAILY PO Last administered on 10/11/16 15:13; Start at 13:00 Active Scripts Active Reported Clopidogrel (Clopidogrel Bisulfate) 75 Mg Tablet 1 Tab PO QODAY Metoprolol Tartrate 25 Mg Tablet 1 Tab PO BID Acetaminophen 500 Mg Tablet 500 Mg PO PRN PRN Warfarin Sodium 2 Mg Tablet 2.5 Mg PO QTUTHSASU Potassium Chloride 10 Meq Capsule.er 10 Meq PO 3X/WEEK Omeprazole 40 Mg Capsule.dr 1 Cap PO DAILYAC Meloxicam 7.5 Mg Tablet 1 Tab PO DAILY Meclizine Hcl 12.5 Mg Tablet 1 Tab PO BID Hydrocodone-Apap 5-325 (Hydrocodone Bit/Acetaminophen) 1 Each Tablet 1 Tab PO Q12HR PRN Humulin N (Nph, Human Insulin Isophane) 100 Unit/1 Ml Vial 20 Unit SQ HS Humulin N (Nph, Human Insulin Isophane) 100 Unit/1 Ml Vial 40 Unit SQ DAILYWBKFT Spironolactone 25 Mg Tablet 25 Mg PO DAILY Furosemide 80 Mg Tablet 80 Mg PO BID Stool Softener (Docusate Sodium) 100 Mg Capsule 200 Mg PO HS Amlodipine Besylate 10 Mg Tablet 10 Mg PO DAILY Losartan Potassium 100 Mg Tablet 100 Mg PO DAILY Atorvastatin Calcium 40 Mg Tablet 40 Mg PO HS Citracal + D Maximum Caplet (Calcium Citrate/Vitamin D3) 1 Each Tablet 1 Each PO DAILY Isosorbide Mononitrate Er (Isosorbide Mononitrate) 60 Mg Tab.er.24h 60 Mg PO DAILY Vitamin D-3 (Cholecalciferol (Vitamin D3)) 2,000 Unit Capsule 2,000 Unit PO DAILY Aspirin Ec (Aspirin) 81 Mg Tablet. 325 Mg PO DAILY Allergies Allergies: Coded Allergies: Iodinated Contrast Media - Oral and (Verified Allergy, Severe, Anaphylaxis , 03/18/16) adhesive tape (Verified Allergy, Intermediate, 03/19/16) meperidine (Verified Adverse Reaction, Intermediate, Vomiting, 04/19/16) Physical Exam Physical Exam H EENT pupils are responsive. Oral mucosa well-hydrated. Neck is supple no JVD. Lungs moving air normally. No wheezing no Rales. Heart regular rate. S1-S2, no changes in her systolic murmur. Abdomen is soft bowel sounds are present Extremities no edema Vitals VITALS Vital Signs Date Time Temp Pulse Resp B/P (MAP) Pulse Ox O2 Delivery O2 Flow Rate FiO2 10/11/16 21:00 74 159/67 10/11/16 20:06 Nasal Cannula 2.0 10/11/16 19:05 99.8 18 88 99.8 Labs Labs Laboratory Tests Test 10/11/16 04:10 10/11/16 08:34 10/11/16 12:18 10/11/16 13:15 White Blood Count 8.4 x10^3/uL (4.0-11.0) Red Blood Count 3.35 x10^6/uL (3.50-5.40) Hemoglobin 9.8 g/dL (12.0-15.5) Hematocrit 29.7 % (36.0-47.0) Mean Corpuscular Volume 89 fL (79-100) Mean Corpuscular Hemoglobin 29 pg (25-35) Mean Corpuscular Hemoglobin Concent 33 g/dL (31-37) Red Cell Distribution Width 15.7 % (11.5-14.5) Platelet Count 352 x10^3/uL (140-400) Neutrophils (%) (Auto) 77 % (31-73) Lymphocytes (%) (Auto) 12 % (24-48) Monocytes (%) (Auto) 7 % (0-9) Eosinophils (%) (Auto) 4 % (0-3) Basophils (%) (Auto) 1 % (0-3) Neutrophils # (Auto) 6.4 x10^3uL (1.8-7.7) Lymphocytes # (Auto) 1.0 x10^3/uL (1.0-4.8) Monocytes # (Auto) 0.6 x10^3/uL (0.0-1.1) Eosinophils # (Auto) 0.3 x10^3/uL (0.0-0.7) Basophils # (Auto) 0.1 x10^3/uL (0.0-0.2) Prothrombin Time 14.4 SEC (11.7-14.0) Prothromb Time International Ratio 1.2 (0.8-1.1) Sodium Level 134 mmol/L (136-145) Potassium Level 4.4 mmol/L (3.5-5.1) Chloride Level 99 mmol/L (98-107) Carbon Dioxide Level 30 mmol/L (21-32) Anion Gap 5 (6-14) Blood Urea Nitrogen 18 mg/dL (7-20) Creatinine 1.0 mg/dL (0.6-1.0) Estimated GFR (Cockcroft-Gault) 53.3 BUN/Creatinine Ratio 18 (6-20) Glucose Level 356 mg/dL (70-99) Calcium Level 10.5 mg/dL (8.5-10.1) Total Bilirubin 0.3 mg/dL (0.2-1.0) Aspartate Amino Transf (AST/SGOT) 18 U/L (15-37) Alanine Aminotransferase (ALT/SGPT) 18 U/L (14-59) Alkaline Phosphatase 131 U/L (46-116) Troponin I Quantitative 0.631 ng/mL (0.000-0.055) Total Protein 7.3 g/dL (6.4-8.2) Albumin 2.2 g/dL (3.4-5.0) Albumin/Globulin Ratio 0.4 (1.0-1.7) Glucose (Fingerstick) 354 mg/dL (70-99) 155 mg/dL (70-99) Heparin Anti-Xa Act, Unfractionated < 0.10 IU/mL (0.30-0.70) Test 10/11/16 17:23 10/11/16 20:59 Glucose (Fingerstick) 217 mg/dL (70-99) 244 mg/dL (70-99) Laboratory Tests Test 10/11/16 04:10 10/11/16 08:34 10/11/16 12:18 10/11/16 13:15 White Blood Count 8.4 x10^3/uL (4.0-11.0) Red Blood Count 3.35 x10^6/uL (3.50-5.40) Hemoglobin 9.8 g/dL (12.0-15.5) Hematocrit 29.7 % (36.0-47.0) Mean Corpuscular Volume 89 fL (79-100) Mean Corpuscular Hemoglobin 29 pg (25-35) Mean Corpuscular Hemoglobin Concent 33 g/dL (31-37) Red Cell Distribution Width 15.7 % (11.5-14.5) Platelet Count 352 x10^3/uL (140-400) Neutrophils (%) (Auto) 77 % (31-73) Lymphocytes (%) (Auto) 12 % (24-48) Monocytes (%) (Auto) 7 % (0-9) Eosinophils (%) (Auto) 4 % (0-3) Basophils (%) (Auto) 1 % (0-3) Neutrophils # (Auto) 6.4 x10^3uL (1.8-7.7) Lymphocytes # (Auto) 1.0 x10^3/uL (1.0-4.8) Monocytes # (Auto) 0.6 x10^3/uL (0.0-1.1) Eosinophils # (Auto) 0.3 x10^3/uL (0.0-0.7) Basophils # (Auto) 0.1 x10^3/uL (0.0-0.2) Prothrombin Time 14.4 SEC (11.7-14.0) Prothromb Time International Ratio 1.2 (0.8-1.1) Sodium Level 134 mmol/L (136-145) Potassium Level 4.4 mmol/L (3.5-5.1) Chloride Level 99 mmol/L (98-107) Carbon Dioxide Level 30 mmol/L (21-32) Anion Gap 5 (6-14) Blood Urea Nitrogen 18 mg/dL (7-20) Creatinine 1.0 mg/dL (0.6-1.0) Estimated GFR (Cockcroft-Gault) 53.3 BUN/Creatinine Ratio 18 (6-20) Glucose Level 356 mg/dL (70-99) Calcium Level 10.5 mg/dL (8.5-10.1) Total Bilirubin 0.3 mg/dL (0.2-1.0) Aspartate Amino Transf (AST/SGOT) 18 U/L (15-37) Alanine Aminotransferase (ALT/SGPT) 18 U/L (14-59) Alkaline Phosphatase 131 U/L (46-116) Troponin I Quantitative 0.631 ng/mL (0.000-0.055) Total Protein 7.3 g/dL (6.4-8.2) Albumin 2.2 g/dL (3.4-5.0) Albumin/Globulin Ratio 0.4 (1.0-1.7) Glucose (Fingerstick) 354 mg/dL (70-99) 155 mg/dL (70-99) Heparin Anti-Xa Act, Unfractionated < 0.10 IU/mL (0.30-0.70) Test 10/11/16 17:23 10/11/16 20:59 Glucose (Fingerstick) 217 mg/dL (70-99) 244 mg/dL (70-99) Assessment/Plan Assessment/Plan This patient comes in after an episode of chest pains and may have had a non- STEMI she has multiple problems including known coronary artery disease, SBE, CAD, and renal failure. At this time I would like to treat the patient in a conservative fashion, medically. She had been recently in my office and we had a long discussion about this and had decided on a conservative approach. I will be happy to follow the patient with you. Thank you very much for asking me to participate in the care of this patient WILLY GURROLA MD Oct 11, 2016 21:12
[2016-10-11 23:05] VITALS: BP 120/59
[2016-10-12 03:05] VITALS: BP 134/62
[2016-10-12 03:58] LABS: BASO # 0.1 x10^3/uL (0.0-0.2); BASO % 1 % (0-3); EOS % 3 % (0-3); HEMATOCRIT 25.5 % (36.0-47.0); HEMOGLOBIN 8.6 g/dL (12.0-15.5); LYMPH # 1.5 x10^3/uL (1.0-4.8); LYMPH % 19 % (24-48); MEAN CORPUSCULAR HEMOGLOBIN 30 pg (25-35); MEAN CORPUSCULAR HGB CONC 34 g/dL (31-37); MEAN CORPUSCULAR VOLUME 88 fL (79-100); MONO % 9 % (0-9); NEUT % 68 % (31-73); PLATELET COUNT 293 x10^3/uL (140-400); RED CELL DISTRIBUTION WIDTH 16.3 % (11.5-14.5); WHITE BLOOD COUNT 7.5 x10^3/uL (4.0-11.0)
[2016-10-12 04:14] LABS: CALCIUM 9.4 mg/dL (8.5-10.1); GFR 53.3; POTASSIUM 3.7 mmol/L (3.5-5.1)
[2016-10-12 07:41] VITALS: BP 148/89
[2016-10-12] MEDS: INSULIN ASPART 300 UNITS/3 ML INSULN.PEN SQ SCH ×3 (08:00→17:18)
[2016-10-12] MEDS: PANTOPRAZOLE 40 MG TABLET.DR. PO SCH (08:21)
[2016-10-12] MEDS: MELOXICAM 7.5 MG TABLET PO SCH (08:21)
[2016-10-12] MEDS: MECLIZINE HCL 12.5 MG TABLET. PO SCH ×2 (08:21→21:03)
[2016-10-12] MEDS: SPIRONOLACTONE 25 MG TABLET PO SCH (08:22)
[2016-10-12] MEDS: CALCIUM CARB/VIT D3 500/200 TABLET. PO SCH (08:23)
[2016-10-12] MEDS: CHOLECALCIFEROL (VITAMIN D3) 1,000 UNIT TABLET PO SCH (08:23)
[2016-10-12] MEDS: ASPIRIN ENTERIC COATED 325 MG TABLET.DR. PO SCH (08:24)
[2016-10-12] MEDS: FUROSEMIDE 80 MG TABLET. PO SCH ×2 (08:24→14:40)
[2016-10-12] MEDS: amLODIPine BESYLATE 10 MG TABLET PO SCH (08:25)
[2016-10-12] MEDS: METOPROLOL TART IMMED RELEASE 25 MG TABLET. PO SCH ×2 (08:25→21:03)
[2016-10-12] MEDS: ISOSORBIDE MONONITRATE ER 60 MG TAB.ER.24H. PO SCH (08:26)
[2016-10-12] MEDS: LOSARTAN POTASSIUM 50 MG TABLET. PO SCH (08:26)
[2016-10-12] MEDS: INSULIN DETEMIR 300 UNITS/3 ML INSULN.PEN. SQ SCH ×2 (08:36→21:11)
[2016-10-12 10:51] VITALS: BP 142/66
--- NOTE | 2016-10-12 13:35 | PDOC ---
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 5 d/w daughter SSI History of Present Illness History of Present Illness NO CHEST PAIN WEAKNESS MILD FEVERS. Vitals Vitals Vital Signs Date Time Temp Pulse Resp B/P (MAP) Pulse Ox O2 Delivery O2 Flow Rate FiO2 10/12/16 10:51 99.5 65 21 142/66 (91) 97 Nasal Cannula 2.0 99.5 Physical Exam General: Alert, Oriented X3, Cooperative, No acute distress Heart: Normal S1 Lungs: Clear Abdomen: Normal bowel sounds, Soft, No tenderness, No hepatosplenomegaly, No masses Extremities: No clubbing, No cyanosis, No edema, Normal pulses, No tenderness/ swelling Skin: No rashes, No breakdown, No significant lesion Labs LABS Laboratory Tests Test 10/11/16 17:23 10/11/16 20:59 10/12/16 03:20 10/12/16 07:43 Glucose (Fingerstick) 217 mg/dL (70-99) 244 mg/dL (70-99) 102 mg/dL (70-99) White Blood Count 7.5 x10^3/uL (4.0-11.0) Red Blood Count 2.90 x10^6/uL (3.50-5.40) Hemoglobin 8.6 g/dL (12.0-15.5) Hematocrit 25.5 % (36.0-47.0) Mean Corpuscular Volume 88 fL (79-100) Mean Corpuscular Hemoglobin 30 pg (25-35) Mean Corpuscular Hemoglobin Concent 34 g/dL (31-37) Red Cell Distribution Width 16.3 % (11.5-14.5) Platelet Count 293 x10^3/uL (140-400) Neutrophils (%) (Auto) 68 % (31-73) Lymphocytes (%) (Auto) 19 % (24-48) Monocytes (%) (Auto) 9 % (0-9) Eosinophils (%) (Auto) 3 % (0-3) Basophils (%) (Auto) 1 % (0-3) Neutrophils # (Auto) 5.1 x10^3uL (1.8-7.7) Lymphocytes # (Auto) 1.5 x10^3/uL (1.0-4.8) Monocytes # (Auto) 0.7 x10^3/uL (0.0-1.1) Eosinophils # (Auto) 0.2 x10^3/uL (0.0-0.7) Basophils # (Auto) 0.1 x10^3/uL (0.0-0.2) Sodium Level 137 mmol/L (136-145) Potassium Level 3.7 mmol/L (3.5-5.1) Chloride Level 101 mmol/L (98-107) Carbon Dioxide Level 31 mmol/L (21-32) Anion Gap 5 (6-14) Blood Urea Nitrogen 18 mg/dL (7-20) Creatinine 1.0 mg/dL (0.6-1.0) Estimated GFR (Cockcroft-Gault) 53.3 Glucose Level 162 mg/dL (70-99) Calcium Level 9.4 mg/dL (8.5-10.1) Test 10/12/16 13:08 Glucose (Fingerstick) 134 mg/dL (70-99) Assessment and Plan Assessmemt and Plan Problems Medical Problems: (1) NSTEMI (non-ST elevated myocardial infarction) Status: Acute Problems: Comment Review of Relevant I have reviewed the following items alejandra (where applicable) has been applied. Labs Laboratory Tests Test 10/11/16 04:10 10/11/16 08:34 10/11/16 12:18 10/11/16 13:15 White Blood Count 8.4 x10^3/uL (4.0-11.0) Red Blood Count 3.35 x10^6/uL (3.50-5.40) Hemoglobin 9.8 g/dL (12.0-15.5) Hematocrit 29.7 % (36.0-47.0) Mean Corpuscular Volume 89 fL (79-100) Mean Corpuscular Hemoglobin 29 pg (25-35) Mean Corpuscular Hemoglobin Concent 33 g/dL (31-37) Red Cell Distribution Width 15.7 % (11.5-14.5) Platelet Count 352 x10^3/uL (140-400) Neutrophils (%) (Auto) 77 % (31-73) Lymphocytes (%) (Auto) 12 % (24-48) Monocytes (%) (Auto) 7 % (0-9) Eosinophils (%) (Auto) 4 % (0-3) Basophils (%) (Auto) 1 % (0-3) Neutrophils # (Auto) 6.4 x10^3uL (1.8-7.7) Lymphocytes # (Auto) 1.0 x10^3/uL (1.0-4.8) Monocytes # (Auto) 0.6 x10^3/uL (0.0-1.1) Eosinophils # (Auto) 0.3 x10^3/uL (0.0-0.7) Basophils # (Auto) 0.1 x10^3/uL (0.0-0.2) Prothrombin Time 14.4 SEC (11.7-14.0) Prothromb Time International Ratio 1.2 (0.8-1.1) Sodium Level 134 mmol/L (136-145) Potassium Level 4.4 mmol/L (3.5-5.1) Chloride Level 99 mmol/L (98-107) Carbon Dioxide Level 30 mmol/L (21-32) Anion Gap 5 (6-14) Blood Urea Nitrogen 18 mg/dL (7-20) Creatinine 1.0 mg/dL (0.6-1.0) Estimated GFR (Cockcroft-Gault) 53.3 BUN/Creatinine Ratio 18 (6-20) Glucose Level 356 mg/dL (70-99) Calcium Level 10.5 mg/dL (8.5-10.1) Total Bilirubin 0.3 mg/dL (0.2-1.0) Aspartate Amino Transf (AST/SGOT) 18 U/L (15-37) Alanine Aminotransferase (ALT/SGPT) 18 U/L (14-59) Alkaline Phosphatase 131 U/L (46-116) Troponin I Quantitative 0.631 ng/mL (0.000-0.055) Total Protein 7.3 g/dL (6.4-8.2) Albumin 2.2 g/dL (3.4-5.0) Albumin/Globulin Ratio 0.4 (1.0-1.7) Glucose (Fingerstick) 354 mg/dL (70-99) 155 mg/dL (70-99) Heparin Anti-Xa Act, Unfractionated < 0.10 IU/mL (0.30-0.70) Test 10/11/16 17:23 10/11/16 20:59 10/12/16 03:20 10/12/16 07:43 Glucose (Fingerstick) 217 mg/dL (70-99) 244 mg/dL (70-99) 102 mg/dL (70-99) White Blood Count 7.5 x10^3/uL (4.0-11.0) Red Blood Count 2.90 x10^6/uL (3.50-5.40) Hemoglobin 8.6 g/dL (12.0-15.5) Hematocrit 25.5 % (36.0-47.0) Mean Corpuscular Volume 88 fL (79-100) Mean Corpuscular Hemoglobin 30 pg (25-35) Mean Corpuscular Hemoglobin Concent 34 g/dL (31-37) Red Cell Distribution Width 16.3 % (11.5-14.5) Platelet Count 293 x10^3/uL (140-400) Neutrophils (%) (Auto) 68 % (31-73) Lymphocytes (%) (Auto) 19 % (24-48) Monocytes (%) (Auto) 9 % (0-9) Eosinophils (%) (Auto) 3 % (0-3) Basophils (%) (Auto) 1 % (0-3) Neutrophils # (Auto) 5.1 x10^3uL (1.8-7.7) Lymphocytes # (Auto) 1.5 x10^3/uL (1.0-4.8) Monocytes # (Auto) 0.7 x10^3/uL (0.0-1.1) Eosinophils # (Auto) 0.2 x10^3/uL (0.0-0.7) Basophils # (Auto) 0.1 x10^3/uL (0.0-0.2) Sodium Level 137 mmol/L (136-145) Potassium Level 3.7 mmol/L (3.5-5.1) Chloride Level 101 mmol/L (98-107) Carbon Dioxide Level 31 mmol/L (21-32) Anion Gap 5 (6-14) Blood Urea Nitrogen 18 mg/dL (7-20) Creatinine 1.0 mg/dL (0.6-1.0) Estimated GFR (Cockcroft-Gault) 53.3 Glucose Level 162 mg/dL (70-99) Calcium Level 9.4 mg/dL (8.5-10.1) Test 10/12/16 13:08 Glucose (Fingerstick) 134 mg/dL (70-99) Laboratory Tests Test 10/11/16 17:23 10/11/16 20:59 10/12/16 03:20 10/12/16 07:43 Glucose (Fingerstick) 217 mg/dL (70-99) 244 mg/dL (70-99) 102 mg/dL (70-99) White Blood Count 7.5 x10^3/uL (4.0-11.0) Red Blood Count 2.90 x10^6/uL (3.50-5.40) Hemoglobin 8.6 g/dL (12.0-15.5) Hematocrit 25.5 % (36.0-47.0) Mean Corpuscular Volume 88 fL (79-100) Mean Corpuscular Hemoglobin 30 pg (25-35) Mean Corpuscular Hemoglobin Concent 34 g/dL (31-37) Red Cell Distribution Width 16.3 % (11.5-14.5) Platelet Count 293 x10^3/uL (140-400) Neutrophils (%) (Auto) 68 % (31-73) Lymphocytes (%) (Auto) 19 % (24-48) Monocytes (%) (Auto) 9 % (0-9) Eosinophils (%) (Auto) 3 % (0-3) Basophils (%) (Auto) 1 % (0-3) Neutrophils # (Auto) 5.1 x10^3uL (1.8-7.7) Lymphocytes # (Auto) 1.5 x10^3/uL (1.0-4.8) Monocytes # (Auto) 0.7 x10^3/uL (0.0-1.1) Eosinophils # (Auto) 0.2 x10^3/uL (0.0-0.7) Basophils # (Auto) 0.1 x10^3/uL (0.0-0.2) Sodium Level 137 mmol/L (136-145) Potassium Level 3.7 mmol/L (3.5-5.1) Chloride Level 101 mmol/L (98-107) Carbon Dioxide Level 31 mmol/L (21-32) Anion Gap 5 (6-14) Blood Urea Nitrogen 18 mg/dL (7-20) Creatinine 1.0 mg/dL (0.6-1.0) Estimated GFR (Cockcroft-Gault) 53.3 Glucose Level 162 mg/dL (70-99) Calcium Level 9.4 mg/dL (8.5-10.1) Test 10/12/16 13:08 Glucose (Fingerstick) 134 mg/dL (70-99) Medications Current Medications Sodium Chloride 1,000 ml @ 1,000 mls/hr 1X ONCE IV ; Start 10/11/16 at 04:15; Stop 10/11/16 at 04:17; Status DC Nitroglycerin (Nitrostat) 0.4 mg PRN Q5MIN PRN SL CHEST PAIN Last administered on 10/11/16 04:55; Start 10/11/16 at 04:15 Sodium Chloride 500 ml @ 500 mls/hr 1X ONCE IV Last administered on 10/11/16 04:25; Start 10/11/16 at 04:30; Stop 10/11/16 at 05:29; Status DC Heparin Sodium/ Dextrose 500 ml @ 0 mls/hr CONT PRN IV SEE I/O RECORD Last administered on 10/11/16 06:06; Start 10/11/16 at 05:45 Heparin Sodium (Porcine) (Heparin Sodium) 1,900 unit PRN Q6HRS PRN IV FOR UFH LEVEL LESS THAN 0.2 Last administered on 10/11/16 06:04; Start 10/11/16 at 05:45 Ondansetron HCl (Zofran) 4 mg PRN Q8HRS PRN IV NAUSEA/VOMITING; Start 10/11/16 at 06:00; Stop 10/11/16 at 08:38; Status DC Morphine Sulfate 4 mg PRN Q2HR PRN IV PAIN; Start 10/11/16 at 06:00; Stop at 05:59; Status DC Acetaminophen (Tylenol) 650 mg PRN Q4HRS PRN PO FEVER; Start 10/11/16 at 06:00; Stop 10/11/16 at 09:49; Status DC Nitroglycerin (Nitrostat) 0.4 mg PRN Q5MIN PRN SL CHEST PAIN; Start 10/11/16 at 06:00; Stop 10/12/16 at 05:59; Status DC Ondansetron HCl (Zofran) 4 mg PRN Q6HRS PRN IV NAUSEA/VOMITING; Start 10/11/16 at 08:36; Stop 10/12/16 at 08:35; Status DC Acetaminophen (Tylenol) 500 mg PRN QID PRN PO MILD PAIN; Start 10/11/16 at 08:45 Amlodipine Besylate (Norvasc) 10 mg DAILY PO Last administered on 10/12/16 08: 25; Start 10/11/16 at 09:00 Aspirin (Ecotrin) 325 mg DAILY PO ; Start 10/11/16 at 09:00; Status Cancel Atorvastatin Calcium (Lipitor) 40 mg HS PO Last administered on 10/11/16 21:00 ; Start 10/11/16 at 21:00 Clopidogrel Bisulfate (Plavix) 75 mg QODAY PO ; Start 10/11/16 at 09:00 Docusate Sodium (Colace) 200 mg HS PO Last administered on 10/11/16 21:00; Start 10/11/16 at 21:00 Furosemide (Lasix) 80 mg [id number] PO Last administered on 10/12/16 08:24; Start at 09:00 Acetaminophen/ Hydrocodone Bitart (Lortab 5/325) 1 tab PRN Q12HR PRN PO MODERATE - SEVERE PAIN; Start 10/11/16 at 08:45 Isosorbide Mononitrate (Imdur) 60 mg DAILY PO Last administered on 10/12/16 08: 26; Start 10/11/16 at 09:00 Meclizine HCl (Antivert) 12.5 mg BID PO Last administered on 10/12/16 08:21; Start 10/11/16 at 09:00 Meloxicam (Mobic) 7.5 mg DAILY PO Last administered on 10/12/16 08:21; Start at 09:00 Metoprolol Tartrate (Lopressor) 25 mg BID PO Last administered on 10/12/16 08: 25; Start 10/11/16 at 09:00 Spironolactone (Aldactone) 25 mg DAILY PO Last administered on 10/12/16 08:22; Start 10/11/16 at 09:00 Warfarin Sodium (Coumadin) 2.5 mg QTUTHSASU PO ; Start 10/11/16 at 16:00 Calcium/Vitamin D (Oscal D 500mg/ 200uts) 1 tab DAILYWBKFT PO Last administered on 10/12/16 08:23; Start 10/11/16 at 10:00 Vitamin D (Vitamin D3) 2,000 unit DAILY PO Last administered on 10/12/16 08:23 ; Start 10/11/16 at 10:00 Losartan Potassium (Cozaar) 50 mg DAILY PO Last administered on 10/12/16 08:26 ; Start 10/11/16 at 10:00 Insulin Detemir (Levemir) 20 units QHS SQ Last administered on 10/11/16 21:00; Start 10/11/16 at 21:00 Insulin Detemir (Levemir) 40 units DAILYWBKFT SQ Last administered on 10/12/16 08:36; Start 10/11/16 at 10:00 Pantoprazole Sodium (Protonix) 40 mg DAILYAC PO Last administered on 10/12/16 08:21; Start 10/11/16 at 11:30 Potassium Chloride (Klor-Con) 10 meq MoWeFr PO Last administered on 10/11/16 12 :40; Start 10/11/16 at 08:00 Insulin Aspart (NovoLOG) 0-9 UNITS TIDWMEALS SQ Last administered on 10/11/16 17:52; Start 10/11/16 at 12:00 Dextrose (Dextrose 50%-Water Syringe) 12.5 gm PRN Q15MIN PRN IV SEE COMMENTS; Start 10/11/16 at 08:45 Labetalol HCl (Normodyne) 10 mg PRN Q2HR PRN IVP HYPERTENSION, SEE COMMENTS; Start 10/11/16 at 08:45 Insulin Aspart (NovoLOG) 12 units 1X ONCE SQ Last administered on 10/11/16 09: 56; Start 10/11/16 at 09:45; Stop 10/11/16 at 09:46; Status DC Warfarin Sodium (Coumadin Per Physician) 1 each PRN DAILY PRN MC SEE COMMENTS Last administered on 10/12/16 09:05; Start 10/11/16 at 09:45 Aspirin (Ecotrin) 325 mg DAILY PO Last administered on 10/12/16 08:24; Start at 13:00 Active Scripts Active Reported Clopidogrel (Clopidogrel Bisulfate) 75 Mg Tablet 1 Tab PO QODAY Metoprolol Tartrate 25 Mg Tablet 1 Tab PO BID Acetaminophen 500 Mg Tablet 500 Mg PO PRN PRN Warfarin Sodium 2 Mg Tablet 2.5 Mg PO QTUTHSASU Potassium Chloride 10 Meq Capsule.er 10 Meq PO 3X/WEEK Omeprazole 40 Mg Capsule.dr 1 Cap PO DAILYAC Meloxicam 7.5 Mg Tablet 1 Tab PO DAILY Meclizine Hcl 12.5 Mg Tablet 1 Tab PO BID Hydrocodone-Apap 5-325 (Hydrocodone Bit/Acetaminophen) 1 Each Tablet 1 Tab PO Q12HR PRN Humulin N (Nph, Human Insulin Isophane) 100 Unit/1 Ml Vial 20 Unit SQ HS Humulin N (Nph, Human Insulin Isophane) 100 Unit/1 Ml Vial 40 Unit SQ DAILYWBKFT Spironolactone 25 Mg Tablet 25 Mg PO DAILY Furosemide 80 Mg Tablet 80 Mg PO BID Stool Softener (Docusate Sodium) 100 Mg Capsule 200 Mg PO HS Amlodipine Besylate 10 Mg Tablet 10 Mg PO DAILY Losartan Potassium 100 Mg Tablet 100 Mg PO DAILY Atorvastatin Calcium 40 Mg Tablet 40 Mg PO HS Citracal + D Maximum Caplet (Calcium Citrate/Vitamin D3) 1 Each Tablet 1 Each PO DAILY Isosorbide Mononitrate Er (Isosorbide Mononitrate) 60 Mg Tab.er.24h 60 Mg PO DAILY Vitamin D-3 (Cholecalciferol (Vitamin D3)) 2,000 Unit Capsule 2,000 Unit PO DAILY Aspirin Ec (Aspirin) 81 Mg Tablet. 325 Mg PO DAILY Vitals/I & O Vital Sign - Last 24 Hours 10/11/16 10/11/16 10/11/16 10/11/16 15:00 19:05 20:06 21:00 Temp 97.9 99.8 97.9 99.8 Pulse 74 74 74 Resp 14 18 B/P (MAP) 148/68 (94) 159/67 (97) 159/67 Pulse Ox 95 88 O2 Delivery Nasal Cannula Room Air Nasal Cannula O2 Flow Rate 2.0 2.0 6/7/17 10/12/16 10/12/16 10/12/16 23:05 03:05 07:41 08:00 Temp 99.3 98.7 99.1 99.3 98.7 99.1 Pulse 74 57 69 Resp 20 16 20 B/P (MAP) 120/59 (79) 134/62 (86) 148/89 (108) Pulse Ox 93 93 96 O2 Delivery Room Air Room Air Room Air Room Air 10/12/16 10/12/16 10/12/16 10/12/16 08:25 08:25 08:26 08:26 Pulse 80 80 80 80 B/P (MAP) 148/89 148/89 148/89 148/89 10/12/16 10:51 Temp 99.5 99.5 Pulse 65 Resp 21 B/P (MAP) 142/66 (91) Pulse Ox 97 O2 Delivery Nasal Cannula O2 Flow Rate 2.0 Intake and Output 10/11/16 10/11/16 10/12/16 14:59 22:59 06:59 Intake Total 360 ml 300 ml Output Total 400 ml 500 ml Balance -40 ml -200 ml NOEMI CINTRON MD Oct 12, 2016 13:35
[2016-10-12 14:15] VITALS: BP 119/62
--- NOTE | 2016-10-12 15:34 | PDOC ---
PROGRESS NOTES Subjective Subjective Patient feels very weak and tired, no chest pains mild dyspnea at rest Objective Objective Vital Signs Date Time Temp Pulse Resp B/P (MAP) Pulse Ox O2 Delivery O2 Flow Rate FiO2 10/12/16 14:15 98.5 71 20 119/62 (81) 94 Nasal Cannula 2.0 98.5 Intake and Output 10/12/16 07:00 Intake Total 660 ml Output Total 900 ml Balance -240 ml Intake Oral 660 ml Output Urine Total 900 ml # Voids 10 Physical Exam Physical Exam No significant changes cardiac exam Assessment Assessment Patient has been running a low temperature. 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 This was discussed with the patient and her daughter Comment Review of Relevant I have reviewed the following items alejandra (where applicable) has been applied. Labs Laboratory Tests Test 10/11/16 04:10 10/11/16 08:34 10/11/16 12:18 10/11/16 13:15 White Blood Count 8.4 x10^3/uL (4.0-11.0) Red Blood Count 3.35 x10^6/uL (3.50-5.40) Hemoglobin 9.8 g/dL (12.0-15.5) Hematocrit 29.7 % (36.0-47.0) Mean Corpuscular Volume 89 fL (79-100) Mean Corpuscular Hemoglobin 29 pg (25-35) Mean Corpuscular Hemoglobin Concent 33 g/dL (31-37) Red Cell Distribution Width 15.7 % (11.5-14.5) Platelet Count 352 x10^3/uL (140-400) Neutrophils (%) (Auto) 77 % (31-73) Lymphocytes (%) (Auto) 12 % (24-48) Monocytes (%) (Auto) 7 % (0-9) Eosinophils (%) (Auto) 4 % (0-3) Basophils (%) (Auto) 1 % (0-3) Neutrophils # (Auto) 6.4 x10^3uL (1.8-7.7) Lymphocytes # (Auto) 1.0 x10^3/uL (1.0-4.8) Monocytes # (Auto) 0.6 x10^3/uL (0.0-1.1) Eosinophils # (Auto) 0.3 x10^3/uL (0.0-0.7) Basophils # (Auto) 0.1 x10^3/uL (0.0-0.2) Prothrombin Time 14.4 SEC (11.7-14.0) Prothromb Time International Ratio 1.2 (0.8-1.1) Sodium Level 134 mmol/L (136-145) Potassium Level 4.4 mmol/L (3.5-5.1) Chloride Level 99 mmol/L (98-107) Carbon Dioxide Level 30 mmol/L (21-32) Anion Gap 5 (6-14) Blood Urea Nitrogen 18 mg/dL (7-20) Creatinine 1.0 mg/dL (0.6-1.0) Estimated GFR (Cockcroft-Gault) 53.3 BUN/Creatinine Ratio 18 (6-20) Glucose Level 356 mg/dL (70-99) Calcium Level 10.5 mg/dL (8.5-10.1) Total Bilirubin 0.3 mg/dL (0.2-1.0) Aspartate Amino Transf (AST/SGOT) 18 U/L (15-37) Alanine Aminotransferase (ALT/SGPT) 18 U/L (14-59) Alkaline Phosphatase 131 U/L (46-116) Troponin I Quantitative 0.631 ng/mL (0.000-0.055) Total Protein 7.3 g/dL (6.4-8.2) Albumin 2.2 g/dL (3.4-5.0) Albumin/Globulin Ratio 0.4 (1.0-1.7) Glucose (Fingerstick) 354 mg/dL (70-99) 155 mg/dL (70-99) Heparin Anti-Xa Act, Unfractionated < 0.10 IU/mL (0.30-0.70) Test 10/11/16 17:23 10/11/16 20:59 10/12/16 03:20 10/12/16 07:43 Glucose (Fingerstick) 217 mg/dL (70-99) 244 mg/dL (70-99) 102 mg/dL (70-99) White Blood Count 7.5 x10^3/uL (4.0-11.0) Red Blood Count 2.90 x10^6/uL (3.50-5.40) Hemoglobin 8.6 g/dL (12.0-15.5) Hematocrit 25.5 % (36.0-47.0) Mean Corpuscular Volume 88 fL (79-100) Mean Corpuscular Hemoglobin 30 pg (25-35) Mean Corpuscular Hemoglobin Concent 34 g/dL (31-37) Red Cell Distribution Width 16.3 % (11.5-14.5) Platelet Count 293 x10^3/uL (140-400) Neutrophils (%) (Auto) 68 % (31-73) Lymphocytes (%) (Auto) 19 % (24-48) Monocytes (%) (Auto) 9 % (0-9) Eosinophils (%) (Auto) 3 % (0-3) Basophils (%) (Auto) 1 % (0-3) Neutrophils # (Auto) 5.1 x10^3uL (1.8-7.7) Lymphocytes # (Auto) 1.5 x10^3/uL (1.0-4.8) Monocytes # (Auto) 0.7 x10^3/uL (0.0-1.1) Eosinophils # (Auto) 0.2 x10^3/uL (0.0-0.7) Basophils # (Auto) 0.1 x10^3/uL (0.0-0.2) Sodium Level 137 mmol/L (136-145) Potassium Level 3.7 mmol/L (3.5-5.1) Chloride Level 101 mmol/L (98-107) Carbon Dioxide Level 31 mmol/L (21-32) Anion Gap 5 (6-14) Blood Urea Nitrogen 18 mg/dL (7-20) Creatinine 1.0 mg/dL (0.6-1.0) Estimated GFR (Cockcroft-Gault) 53.3 Glucose Level 162 mg/dL (70-99) Calcium Level 9.4 mg/dL (8.5-10.1) Test 10/12/16 13:08 Glucose (Fingerstick) 134 mg/dL (70-99) Laboratory Tests Test 10/11/16 17:23 10/11/16 20:59 10/12/16 03:20 10/12/16 07:43 Glucose (Fingerstick) 217 mg/dL (70-99) 244 mg/dL (70-99) 102 mg/dL (70-99) White Blood Count 7.5 x10^3/uL (4.0-11.0) Red Blood Count 2.90 x10^6/uL (3.50-5.40) Hemoglobin 8.6 g/dL (12.0-15.5) Hematocrit 25.5 % (36.0-47.0) Mean Corpuscular Volume 88 fL (79-100) Mean Corpuscular Hemoglobin 30 pg (25-35) Mean Corpuscular Hemoglobin Concent 34 g/dL (31-37) Red Cell Distribution Width 16.3 % (11.5-14.5) Platelet Count 293 x10^3/uL (140-400) Neutrophils (%) (Auto) 68 % (31-73) Lymphocytes (%) (Auto) 19 % (24-48) Monocytes (%) (Auto) 9 % (0-9) Eosinophils (%) (Auto) 3 % (0-3) Basophils (%) (Auto) 1 % (0-3) Neutrophils # (Auto) 5.1 x10^3uL (1.8-7.7) Lymphocytes # (Auto) 1.5 x10^3/uL (1.0-4.8) Monocytes # (Auto) 0.7 x10^3/uL (0.0-1.1) Eosinophils # (Auto) 0.2 x10^3/uL (0.0-0.7) Basophils # (Auto) 0.1 x10^3/uL (0.0-0.2) Sodium Level 137 mmol/L (136-145) Potassium Level 3.7 mmol/L (3.5-5.1) Chloride Level 101 mmol/L (98-107) Carbon Dioxide Level 31 mmol/L (21-32) Anion Gap 5 (6-14) Blood Urea Nitrogen 18 mg/dL (7-20) Creatinine 1.0 mg/dL (0.6-1.0) Estimated GFR (Cockcroft-Gault) 53.3 Glucose Level 162 mg/dL (70-99) Calcium Level 9.4 mg/dL (8.5-10.1) Test 10/12/16 13:08 Glucose (Fingerstick) 134 mg/dL (70-99) Medications Current Medications Sodium Chloride 1,000 ml @ 1,000 mls/hr 1X ONCE IV ; Start 10/11/16 at 04:15; Stop 10/11/16 at 04:17; Status DC Nitroglycerin (Nitrostat) 0.4 mg PRN Q5MIN PRN SL CHEST PAIN Last administered on 10/11/16 04:55; Start 10/11/16 at 04:15 Sodium Chloride 500 ml @ 500 mls/hr 1X ONCE IV Last administered on 10/11/16 04:25; Start 10/11/16 at 04:30; Stop 10/11/16 at 05:29; Status DC Heparin Sodium/ Dextrose 500 ml @ 0 mls/hr CONT PRN IV SEE I/O RECORD Last administered on 10/11/16 06:06; Start 10/11/16 at 05:45; Stop 10/12/16 at 14:18; Status DC Heparin Sodium (Porcine) (Heparin Sodium) 1,900 unit PRN Q6HRS PRN IV FOR UFH LEVEL LESS THAN 0.2 Last administered on 10/11/16 06:04; Start 10/11/16 at 05:45 ; Stop 10/12/16 at 14:18; Status DC Ondansetron HCl (Zofran) 4 mg PRN Q8HRS PRN IV NAUSEA/VOMITING; Start 10/11/16 at 06:00; Stop 10/11/16 at 08:38; Status DC Morphine Sulfate 4 mg PRN Q2HR PRN IV PAIN; Start 10/11/16 at 06:00; Stop at 05:59; Status DC Acetaminophen (Tylenol) 650 mg PRN Q4HRS PRN PO FEVER; Start 10/11/16 at 06:00; Stop 10/11/16 at 09:49; Status DC Nitroglycerin (Nitrostat) 0.4 mg PRN Q5MIN PRN SL CHEST PAIN; Start 10/11/16 at 06:00; Stop 10/12/16 at 05:59; Status DC Ondansetron HCl (Zofran) 4 mg PRN Q6HRS PRN IV NAUSEA/VOMITING; Start 10/11/16 at 08:36; Stop 10/12/16 at 08:35; Status DC Acetaminophen (Tylenol) 500 mg PRN QID PRN PO MILD PAIN; Start 10/11/16 at 08:45 Amlodipine Besylate (Norvasc) 10 mg DAILY PO Last administered on 10/12/16 08: 25; Start 10/11/16 at 09:00 Aspirin (Ecotrin) 325 mg DAILY PO ; Start 10/11/16 at 09:00; Status Cancel Atorvastatin Calcium (Lipitor) 40 mg HS PO Last administered on 10/11/16 21:00 ; Start 10/11/16 at 21:00 Clopidogrel Bisulfate (Plavix) 75 mg QODAY PO ; Start 10/11/16 at 09:00 Docusate Sodium (Colace) 200 mg HS PO Last administered on 10/11/16 21:00; Start 10/11/16 at 21:00 Furosemide (Lasix) 80 mg BID92 PO Last administered on 10/12/16 14:40; Start at 09:00 Acetaminophen/ Hydrocodone Bitart (Lortab 5/325) 1 tab PRN Q12HR PRN PO MODERATE - SEVERE PAIN; Start 10/11/16 at 08:45 Isosorbide Mononitrate (Imdur) 60 mg DAILY PO Last administered on 10/12/16 08: 26; Start 10/11/16 at 09:00 Meclizine HCl (Antivert) 12.5 mg BID PO Last administered on 10/12/16 08:21; Start 10/11/16 at 09:00 Meloxicam (Mobic) 7.5 mg DAILY PO Last administered on 10/12/16 08:21; Start at 09:00 Metoprolol Tartrate (Lopressor) 25 mg BID PO Last administered on 10/12/16 08: 25; Start 10/11/16 at 09:00 Spironolactone (Aldactone) 25 mg DAILY PO Last administered on 10/12/16 08:22; Start 10/11/16 at 09:00 Warfarin Sodium (Coumadin) 2.5 mg QTUTHSASU PO ; Start 10/11/16 at 16:00 Calcium/Vitamin D (Oscal D 500mg/ 200uts) 1 tab DAILYWBKFT PO Last administered on 10/12/16 08:23; Start 10/11/16 at 10:00 Vitamin D (Vitamin D3) 2,000 unit DAILY PO Last administered on 10/12/16 08:23 ; Start 10/11/16 at 10:00 Losartan Potassium (Cozaar) 50 mg DAILY PO Last administered on 10/12/16 08:26 ; Start 10/11/16 at 10:00 Insulin Detemir (Levemir) 20 units QHS SQ Last administered on 10/11/16 21:00; Start 10/11/16 at 21:00 Insulin Detemir (Levemir) 40 units DAILYWBKFT SQ Last administered on 10/12/16 08:36; Start 10/11/16 at 10:00 Pantoprazole Sodium (Protonix) 40 mg DAILYAC PO Last administered on 10/12/16 08:21; Start 10/11/16 at 11:30 Potassium Chloride (Klor-Con) 10 meq MoWeFr PO Last administered on 10/11/16 12 :40; Start 10/11/16 at 08:00 Insulin Aspart (NovoLOG) 0-9 UNITS TIDWMEALS SQ Last administered on 10/11/16 17:52; Start 10/11/16 at 12:00 Dextrose (Dextrose 50%-Water Syringe) 12.5 gm PRN Q15MIN PRN IV SEE COMMENTS; Start 10/11/16 at 08:45 Labetalol HCl (Normodyne) 10 mg PRN Q2HR PRN IVP HYPERTENSION, SEE COMMENTS; Start 10/11/16 at 08:45 Insulin Aspart (NovoLOG) 12 units 1X ONCE SQ Last administered on 10/11/16 09: 56; Start 10/11/16 at 09:45; Stop 10/11/16 at 09:46; Status DC Warfarin Sodium (Coumadin Per Physician) 1 each PRN DAILY PRN MC SEE COMMENTS Last administered on 10/12/16 09:05; Start 10/11/16 at 09:45 Aspirin (Ecotrin) 325 mg DAILY PO Last administered on 10/12/16 08:24; Start at 13:00 Enoxaparin Sodium (Lovenox Per Pharmacy Treatment Dosing) 1 each PRN DAILY PRN MC SEE COMMENTS; Start 10/12/16 at 14:15 Enoxaparin Sodium (Lovenox 80mg Syringe) 80 mg Q12HR SQ Last administered on t 14:40; Start 10/12/16 at 14:30 Active Scripts Active Reported Clopidogrel (Clopidogrel Bisulfate) 75 Mg Tablet 1 Tab PO QODAY Metoprolol Tartrate 25 Mg Tablet 1 Tab PO BID Acetaminophen 500 Mg Tablet 500 Mg PO PRN PRN Warfarin Sodium 2 Mg Tablet 2.5 Mg PO QTUTHSASU Potassium Chloride 10 Meq Capsule.er 10 Meq PO 3X/WEEK Omeprazole 40 Mg Capsule.dr 1 Cap PO DAILYAC Meloxicam 7.5 Mg Tablet 1 Tab PO DAILY Meclizine Hcl 12.5 Mg Tablet 1 Tab PO BID Hydrocodone-Apap 5-325 (Hydrocodone Bit/Acetaminophen) 1 Each Tablet 1 Tab PO Q12HR PRN Humulin N (Nph, Human Insulin Isophane) 100 Unit/1 Ml Vial 20 Unit SQ HS Humulin N (Nph, Human Insulin Isophane) 100 Unit/1 Ml Vial 40 Unit SQ DAILYWBKFT Spironolactone 25 Mg Tablet 25 Mg PO DAILY Furosemide 80 Mg Tablet 80 Mg PO BID Stool Softener (Docusate Sodium) 100 Mg Capsule 200 Mg PO HS Amlodipine Besylate 10 Mg Tablet 10 Mg PO DAILY Losartan Potassium 100 Mg Tablet 100 Mg PO DAILY Atorvastatin Calcium 40 Mg Tablet 40 Mg PO HS Citracal + D Maximum Caplet (Calcium Citrate/Vitamin D3) 1 Each Tablet 1 Each PO DAILY Isosorbide Mononitrate Er (Isosorbide Mononitrate) 60 Mg Tab.er.24h 60 Mg PO DAILY Vitamin D-3 (Cholecalciferol (Vitamin D3)) 2,000 Unit Capsule 2,000 Unit PO DAILY Aspirin Ec (Aspirin) 81 Mg Tablet. 325 Mg PO DAILY Vitals/I & O Vital Sign - Last 24 Hours 10/11/16 10/11/16 10/11/16 10/11/16 19:05 20:06 21:00 23:05 Temp 99.8 99.3 99.8 99.3 Pulse 74 74 74 Resp 18 20 B/P (MAP) 159/67 (97) 159/67 120/59 (79) Pulse Ox 88 93 O2 Delivery Room Air Nasal Cannula Room Air O2 Flow Rate 2.0 10/12/16 10/12/16 10/12/16 10/12/16 03:05 07:41 08:00 08:25 Temp 98.7 99.1 98.7 99.1 Pulse 57 69 80 Resp 16 20 B/P (MAP) 134/62 (86) 148/89 (108) 148/89 Pulse Ox 93 96 O2 Delivery Room Air Room Air Room Air 10/12/16 10/12/16 10/12/16 10/12/16 08:25 08:26 08:26 10:51 Temp 99.5 99.5 Pulse 80 80 80 65 Resp 21 B/P (MAP) 148/89 148/89 148/89 142/66 (91) Pulse Ox 97 O2 Delivery Nasal Cannula O2 Flow Rate 2.0 10/12/16 14:15 Temp 98.5 98.5 Pulse 71 Resp 20 B/P (MAP) 119/62 (81) Pulse Ox 94 O2 Delivery Nasal Cannula O2 Flow Rate 2.0 Intake and Output 10/11/16 10/11/16 10/12/16 15:00 23:00 07:00 Intake Total 360 ml 300 ml Output Total 400 ml 500 ml Balance -40 ml -200 ml WILLY GURROLA MD Oct 12, 2016 15:34
[2016-10-12] MEDS: WARFARIN 2.5 MG TABLET. PO SCH (17:13)
[2016-10-12 18:25] LABS: BILIRUBIN,URINE NEGATIVE (NEG); GLUCOSE,URINE NEGATIVE (NEG); NITRITE,URINE NEGATIVE (NEG); PH,URINE 5.5; PROTEIN,URINE NEGATIVE (NEG-TRACE); UROBILINOGEN,URINE 0.2 mg/dL (0.2 mg/dL)
[2016-10-12 18:34] LABS: BACTERIA,URINE 0 /HPF (0-FEW); RBC,URINE 0 /HPF (0-2); SQUAMOUS EPITHELIAL CELL,UR FEW /LPF
[2016-10-12 19:34] VITALS: BP 125/41
[2016-10-12] MEDS: ATORVASTATIN CALCIUM 40 MG TABLET. PO SCH (21:02)
[2016-10-12] MEDS: DOCUSATE SODIUM 100 MG CAPSULE. PO SCH (21:03)
[2016-10-12 23:31] VITALS: BP 138/45
[2016-10-13 03:30] VITALS: BP 146/62
[2016-10-13 07:00] VITALS: BP 145/70
[2016-10-13] MEDS: INSULIN ASPART 300 UNITS/3 ML INSULN.PEN SQ SCH ×3 (08:00→17:36)
[2016-10-13] MEDS: CHOLECALCIFEROL (VITAMIN D3) 1,000 UNIT TABLET PO SCH (08:51)
[2016-10-13] MEDS: CLOPIDOGREL BISULFATE 75 MG TABLET PO SCH (08:51)
[2016-10-13] MEDS: SPIRONOLACTONE 25 MG TABLET PO SCH (08:52)
[2016-10-13] MEDS: amLODIPine BESYLATE 10 MG TABLET PO SCH (08:52)
[2016-10-13] MEDS: ISOSORBIDE MONONITRATE ER 60 MG TAB.ER.24H. PO SCH (08:52)
[2016-10-13] MEDS: METOPROLOL TART IMMED RELEASE 25 MG TABLET. PO SCH ×2 (08:52→20:44)
[2016-10-13] MEDS: FUROSEMIDE 80 MG TABLET. PO SCH ×2 (08:52→14:41)
[2016-10-13] MEDS: PANTOPRAZOLE 40 MG TABLET.DR. PO SCH (08:52)
[2016-10-13] MEDS: LOSARTAN POTASSIUM 50 MG TABLET. PO SCH (08:53)
[2016-10-13] MEDS: MECLIZINE HCL 12.5 MG TABLET. PO SCH ×2 (08:53→20:44)
[2016-10-13] MEDS: CALCIUM CARB/VIT D3 500/200 TABLET. PO SCH (08:53)
[2016-10-13] MEDS: POTASSIUM CHLORIDE 10 MEQ TABLET.ER. PO SCH (08:53)
[2016-10-13] MEDS: ASPIRIN ENTERIC COATED 325 MG TABLET.DR. PO SCH (08:54)
[2016-10-13] MEDS: MELOXICAM 7.5 MG TABLET PO SCH (08:54)
[2016-10-13] MEDS: INSULIN DETEMIR 300 UNITS/3 ML INSULN.PEN. SQ SCH ×2 (08:56→20:46)
[2016-10-13 09:57] LABS: INR 1.2 (0.8-1.1); PROTHROMBIN TIME PATIENT 14.4 SEC (11.7-14.0)
--- NOTE | 2016-10-13 11:20 | PDOC ---
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 pt agrees with that. UA INR not therapeutic, give Lovenox weight based, Pharmacy to dose Coumadin cxr reviewed, BCX if temp > 100. 5 PT/OT SSI History of Present Illness History of Present Illness NO CHEST PAIN WEAKNESS MILD FEVERS. Vitals Vitals Vital Signs Date Time Temp Pulse Resp B/P (MAP) Pulse Ox O2 Delivery O2 Flow Rate FiO2 10/13/16 08:53 74 145/70 10/13/16 08:15 Room Air 2.0 10/13/16 07:00 98.8 16 95 98.8 Physical Exam General: Alert, Oriented X3, Cooperative, No acute distress Heart: Normal S1 Lungs: Clear Abdomen: Normal bowel sounds, Soft, No tenderness, No hepatosplenomegaly, No masses Extremities: No clubbing, No cyanosis, No edema, Normal pulses, No tenderness/ swelling Skin: No rashes, No breakdown, No significant lesion Labs LABS Laboratory Tests Test 10/12/16 13:08 10/12/16 14:55 10/12/16 16:52 10/12/16 18:10 Glucose (Fingerstick) 134 mg/dL (70-99) 194 mg/dL (70-99) Erythrocyte Sedimentation Rate > 150 (0-25) C-Reactive Protein, Quantitative 115.2 mg/L (0-3.3) Urine Collection Type Unknown Urine Color Yellow Urine Clarity Clear Urine pH 5.5 Urine Specific Gilbert 1.015 Urine Protein Negative mg/dL (NEG-TRACE) Urine Glucose (UA) Negative mg/dL (NEG) Urine Ketones (Stick) Negative mg/dL (NEG) Urine Blood Negative (NEG) Urine Nitrite Negative (NEG) Urine Bilirubin Negative (NEG) Urine Urobilinogen Dipstick 0.2 mg/dL (0.2 mg/dL) Urine Leukocyte Esterase Trace (NEG) Urine RBC 0 /HPF (0-2) Urine WBC 5-10 /HPF (0-4) Urine Squamous Epithelial Cells Few /LPF Urine Bacteria 0 /HPF (0-FEW) Urine Hyaline Casts Many /HPF Urine Mucus Mod /LPF Test 10/12/16 21:06 10/13/16 07:57 10/13/16 09:30 Glucose (Fingerstick) 192 mg/dL (70-99) 74 mg/dL (70-99) Prothrombin Time 14.4 SEC (11.7-14.0) Prothromb Time International Ratio 1.2 (0.8-1.1) Assessment and Plan Assessmemt and Plan Problems Medical Problems: (1) NSTEMI (non-ST elevated myocardial infarction) Status: Acute Problems: Comment Review of Relevant I have reviewed the following items alejandra (where applicable) has been applied. Labs Laboratory Tests Test 10/11/16 12:18 10/11/16 13:15 10/11/16 17:23 10/11/16 20:59 Glucose (Fingerstick) 155 mg/dL (70-99) 217 mg/dL (70-99) 244 mg/dL (70-99) Heparin Anti-Xa Act, Unfractionated < 0.10 IU/mL (0.30-0.70) Test 10/12/16 03:20 10/12/16 07:43 10/12/16 13:08 10/12/16 14:55 White Blood Count 7.5 x10^3/uL (4.0-11.0) Red Blood Count 2.90 x10^6/uL (3.50-5.40) Hemoglobin 8.6 g/dL (12.0-15.5) Hematocrit 25.5 % (36.0-47.0) Mean Corpuscular Volume 88 fL (79-100) Mean Corpuscular Hemoglobin 30 pg (25-35) Mean Corpuscular Hemoglobin Concent 34 g/dL (31-37) Red Cell Distribution Width 16.3 % (11.5-14.5) Platelet Count 293 x10^3/uL (140-400) Neutrophils (%) (Auto) 68 % (31-73) Lymphocytes (%) (Auto) 19 % (24-48) Monocytes (%) (Auto) 9 % (0-9) Eosinophils (%) (Auto) 3 % (0-3) Basophils (%) (Auto) 1 % (0-3) Neutrophils # (Auto) 5.1 x10^3uL (1.8-7.7) Lymphocytes # (Auto) 1.5 x10^3/uL (1.0-4.8) Monocytes # (Auto) 0.7 x10^3/uL (0.0-1.1) Eosinophils # (Auto) 0.2 x10^3/uL (0.0-0.7) Basophils # (Auto) 0.1 x10^3/uL (0.0-0.2) Sodium Level 137 mmol/L (136-145) Potassium Level 3.7 mmol/L (3.5-5.1) Chloride Level 101 mmol/L (98-107) Carbon Dioxide Level 31 mmol/L (21-32) Anion Gap 5 (6-14) Blood Urea Nitrogen 18 mg/dL (7-20) Creatinine 1.0 mg/dL (0.6-1.0) Estimated GFR (Cockcroft-Gault) 53.3 Glucose Level 162 mg/dL (70-99) Calcium Level 9.4 mg/dL (8.5-10.1) Glucose (Fingerstick) 102 mg/dL (70-99) 134 mg/dL (70-99) Erythrocyte Sedimentation Rate > 150 (0-25) C-Reactive Protein, Quantitative 115.2 mg/L (0-3.3) Test 10/12/16 16:52 10/12/16 18:10 10/12/16 21:06 10/13/16 07:57 Glucose (Fingerstick) 194 mg/dL (70-99) 192 mg/dL (70-99) 74 mg/dL (70-99) Urine Collection Type Unknown Urine Color Yellow Urine Clarity Clear Urine pH 5.5 Urine Specific Gilbert 1.015 Urine Protein Negative mg/dL (NEG-TRACE) Urine Glucose (UA) Negative mg/dL (NEG) Urine Ketones (Stick) Negative mg/dL (NEG) Urine Blood Negative (NEG) Urine Nitrite Negative (NEG) Urine Bilirubin Negative (NEG) Urine Urobilinogen Dipstick 0.2 mg/dL (0.2 mg/dL) Urine Leukocyte Esterase Trace (NEG) Urine RBC 0 /HPF (0-2) Urine WBC 5-10 /HPF (0-4) Urine Squamous Epithelial Cells Few /LPF Urine Bacteria 0 /HPF (0-FEW) Urine Hyaline Casts Many /HPF Urine Mucus Mod /LPF Test 10/13/16 09:30 Prothrombin Time 14.4 SEC (11.7-14.0) Prothromb Time International Ratio 1.2 (0.8-1.1) Laboratory Tests Test 10/12/16 13:08 10/12/16 14:55 10/12/16 16:52 10/12/16 18:10 Glucose (Fingerstick) 134 mg/dL (70-99) 194 mg/dL (70-99) Erythrocyte Sedimentation Rate > 150 (0-25) C-Reactive Protein, Quantitative 115.2 mg/L (0-3.3) Urine Collection Type Unknown Urine Color Yellow Urine Clarity Clear Urine pH 5.5 Urine Specific Gilbert 1.015 Urine Protein Negative mg/dL (NEG-TRACE) Urine Glucose (UA) Negative mg/dL (NEG) Urine Ketones (Stick) Negative mg/dL (NEG) Urine Blood Negative (NEG) Urine Nitrite Negative (NEG) Urine Bilirubin Negative (NEG) Urine Urobilinogen Dipstick 0.2 mg/dL (0.2 mg/dL) Urine Leukocyte Esterase Trace (NEG) Urine RBC 0 /HPF (0-2) Urine WBC 5-10 /HPF (0-4) Urine Squamous Epithelial Cells Few /LPF Urine Bacteria 0 /HPF (0-FEW) Urine Hyaline Casts Many /HPF Urine Mucus Mod /LPF Test 10/12/16 21:06 10/13/16 07:57 10/13/16 09:30 Glucose (Fingerstick) 192 mg/dL (70-99) 74 mg/dL (70-99) Prothrombin Time 14.4 SEC (11.7-14.0) Prothromb Time International Ratio 1.2 (0.8-1.1) Medications Current Medications Sodium Chloride 1,000 ml @ 1,000 mls/hr 1X ONCE IV ; Start 10/11/16 at 04:15; Stop 10/11/16 at 04:17; Status DC Nitroglycerin (Nitrostat) 0.4 mg PRN Q5MIN PRN SL CHEST PAIN Last administered on 10/11/16 04:55; Start 10/11/16 at 04:15 Sodium Chloride 500 ml @ 500 mls/hr 1X ONCE IV Last administered on 10/11/16 04:25; Start 10/11/16 at 04:30; Stop 10/11/16 at 05:29; Status DC Heparin Sodium/ Dextrose 500 ml @ 0 mls/hr CONT PRN IV SEE I/O RECORD Last administered on 10/11/16 06:06; Start 10/11/16 at 05:45; Stop 10/12/16 at 14:18; Status DC Heparin Sodium (Porcine) (Heparin Sodium) 1,900 unit PRN Q6HRS PRN IV FOR UFH LEVEL LESS THAN 0.2 Last administered on 10/11/16 06:04; Start 10/11/16 at 05:45 ; Stop 10/12/16 at 14:18; Status DC Ondansetron HCl (Zofran) 4 mg PRN Q8HRS PRN IV NAUSEA/VOMITING; Start 10/11/16 at 06:00; Stop 10/11/16 at 08:38; Status DC Morphine Sulfate 4 mg PRN Q2HR PRN IV PAIN; Start 10/11/16 at 06:00; Stop at 05:59; Status DC Acetaminophen (Tylenol) 650 mg PRN Q4HRS PRN PO FEVER; Start 10/11/16 at 06:00; Stop 10/11/16 at 09:49; Status DC Nitroglycerin (Nitrostat) 0.4 mg PRN Q5MIN PRN SL CHEST PAIN; Start 10/11/16 at 06:00; Stop 10/12/16 at 05:59; Status DC Ondansetron HCl (Zofran) 4 mg PRN Q6HRS PRN IV NAUSEA/VOMITING; Start 10/11/16 at 08:36; Stop 10/12/16 at 08:35; Status DC Acetaminophen (Tylenol) 500 mg PRN QID PRN PO MILD PAIN; Start 10/11/16 at 08:45 Amlodipine Besylate (Norvasc) 10 mg DAILY PO Last administered on 10/13/16 08: 52; Start 10/11/16 at 09:00 Aspirin (Ecotrin) 325 mg DAILY PO ; Start 10/11/16 at 09:00; Status Cancel Atorvastatin Calcium (Lipitor) 40 mg HS PO Last administered on 10/12/16 21:02 ; Start 10/11/16 at 21:00 Clopidogrel Bisulfate (Plavix) 75 mg QODAY PO Last administered on 10/13/16 08: 51; Start 10/11/16 at 09:00 Docusate Sodium (Colace) 200 mg HS PO Last administered on 10/12/16 21:03; Start 10/11/16 at 21:00 Furosemide (Lasix) 80 mg BID92 PO Last administered on 10/13/16 08:52; Start at 09:00 Acetaminophen/ Hydrocodone Bitart (Lortab 5/325) 1 tab PRN Q12HR PRN PO MODERATE - SEVERE PAIN; Start 10/11/16 at 08:45 Isosorbide Mononitrate (Imdur) 60 mg DAILY PO Last administered on 10/13/16 08: 52; Start 10/11/16 at 09:00 Meclizine HCl (Antivert) 12.5 mg BID PO Last administered on 10/13/16 08:53; Start 10/11/16 at 09:00 Meloxicam (Mobic) 7.5 mg DAILY PO Last administered on 10/13/16 08:54; Start at 09:00 Metoprolol Tartrate (Lopressor) 25 mg BID PO Last administered on 10/13/16 08: 52; Start 10/11/16 at 09:00 Spironolactone (Aldactone) 25 mg DAILY PO Last administered on 10/13/16 08:52; Start 10/11/16 at 09:00 Warfarin Sodium (Coumadin) 2.5 mg QTUTHSASU PO Last administered on 10/12/16 17 :13; Start 10/11/16 at 16:00 Calcium/Vitamin D (Oscal D 500mg/ 200uts) 1 tab DAILYWBKFT PO Last administered on 10/13/16 08:53; Start 10/11/16 at 10:00 Vitamin D (Vitamin D3) 2,000 unit DAILY PO Last administered on 10/13/16 08:51 ; Start 10/11/16 at 10:00 Losartan Potassium (Cozaar) 50 mg DAILY PO Last administered on 10/13/16 08:53 ; Start 10/11/16 at 10:00 Insulin Detemir (Levemir) 20 units QHS SQ Last administered on 10/12/16 21:11; Start 10/11/16 at 21:00 Insulin Detemir (Levemir) 40 units DAILYWBKFT SQ Last administered on 10/13/16 08:56; Start 10/11/16 at 10:00 Pantoprazole Sodium (Protonix) 40 mg DAILYAC PO Last administered on 10/13/16 08:52; Start 10/11/16 at 11:30 Potassium Chloride (Klor-Con) 10 meq MoWeFr PO Last administered on 10/13/16 08 :53; Start 10/11/16 at 08:00 Insulin Aspart (NovoLOG) 0-9 UNITS TIDWMEALS SQ Last administered on 10/12/16 17:18; Start 10/11/16 at 12:00 Dextrose (Dextrose 50%-Water Syringe) 12.5 gm PRN Q15MIN PRN IV SEE COMMENTS; Start 10/11/16 at 08:45 Labetalol HCl (Normodyne) 10 mg PRN Q2HR PRN IVP HYPERTENSION, SEE COMMENTS; Start 10/11/16 at 08:45 Insulin Aspart (NovoLOG) 12 units 1X ONCE SQ Last administered on 10/11/16 09: 56; Start 10/11/16 at 09:45; Stop 10/11/16 at 09:46; Status DC Warfarin Sodium (Coumadin Per Physician) 1 each PRN DAILY PRN MC SEE COMMENTS Last administered on 10/12/16 09:05; Start 10/11/16 at 09:45 Aspirin (Ecotrin) 325 mg DAILY PO Last administered on 10/13/16 08:54; Start at 13:00 Enoxaparin Sodium (Lovenox Per Pharmacy Treatment Dosing) 1 each PRN DAILY PRN MC SEE COMMENTS; Start 10/12/16 at 14:15 Enoxaparin Sodium (Lovenox 80mg Syringe) 80 mg Q12HR SQ Last administered on 08:57; Start 10/12/16 at 14:30 Active Scripts Active Reported Clopidogrel (Clopidogrel Bisulfate) 75 Mg Tablet 1 Tab PO QODAY Metoprolol Tartrate 25 Mg Tablet 1 Tab PO BID Acetaminophen 500 Mg Tablet 500 Mg PO PRN PRN Warfarin Sodium 2 Mg Tablet 2.5 Mg PO QTUTHSASU Potassium Chloride 10 Meq Capsule.er 10 Meq PO 3X/WEEK Omeprazole 40 Mg Capsule.dr 1 Cap PO DAILYAC Meloxicam 7.5 Mg Tablet 1 Tab PO DAILY Meclizine Hcl 12.5 Mg Tablet 1 Tab PO BID Hydrocodone-Apap 5-325 (Hydrocodone Bit/Acetaminophen) 1 Each Tablet 1 Tab PO Q12HR PRN Humulin N (Nph, Human Insulin Isophane) 100 Unit/1 Ml Vial 20 Unit SQ HS Humulin N (Nph, Human Insulin Isophane) 100 Unit/1 Ml Vial 40 Unit SQ DAILYWBKFT Spironolactone 25 Mg Tablet 25 Mg PO DAILY Furosemide 80 Mg Tablet 80 Mg PO BID Stool Softener (Docusate Sodium) 100 Mg Capsule 200 Mg PO HS Amlodipine Besylate 10 Mg Tablet 10 Mg PO DAILY Losartan Potassium 100 Mg Tablet 100 Mg PO DAILY Atorvastatin Calcium 40 Mg Tablet 40 Mg PO HS Citracal + D Maximum Caplet (Calcium Citrate/Vitamin D3) 1 Each Tablet 1 Each PO DAILY Isosorbide Mononitrate Er (Isosorbide Mononitrate) 60 Mg Tab.er.24h 60 Mg PO DAILY Vitamin D-3 (Cholecalciferol (Vitamin D3)) 2,000 Unit Capsule 2,000 Unit PO DAILY Aspirin Ec (Aspirin) 81 Mg Tablet.dr 325 Mg PO DAILY Vitals/I & O Vital Sign - Last 24 Hours 10/12/16 10/12/16 10/12/16 10/12/16 14:15 19:34 19:49 21:03 Temp 98.5 98.5 98.5 98.5 Pulse 71 68 68 Resp 20 16 B/P (MAP) 119/62 (81) 125/41 (69) 125/41 Pulse Ox 94 94 O2 Delivery Nasal Cannula Room Air Room Air O2 Flow Rate 2.0 2.0 10/12/16 10/13/16 10/13/16 10/13/16 23:31 03:30 07:00 08:15 Temp 98.9 98.7 98.8 98.9 98.7 98.8 Pulse 65 72 74 Resp 20 24 16 B/P (MAP) 138/45 (76) 146/62 (90) 145/70 (95) Pulse Ox 91 93 95 O2 Delivery Room Air Nasal Cannula Nasal Cannula Room Air O2 Flow Rate 2.0 2.0 10/13/16 10/13/16 10/13/16 10/13/16 08:52 08:52 08:52 08:53 Pulse 74 74 74 74 B/P (MAP) 145/70 145/70 145/70 145/70 Intake and Output 10/12/16 10/12/16 10/13/16 15:00 23:00 07:00 Intake Total 780 ml 350 ml Output Total 500 ml 200 ml Balance 280 ml 150 ml NOEMI CINTRON MD Oct 13, 2016 11:20
[2016-10-13 11:59] VITALS: BP 125/43
[2016-10-13 14:07] VITALS: BP 148/66
--- NOTE | 2016-10-13 17:14 | PDOC ---
PROGRESS NOTES Subjective Subjective Patient feels better today. Blood cultures are pending. Objective Objective Vital Signs Date Time Temp Pulse Resp B/P (MAP) Pulse Ox O2 Delivery O2 Flow Rate FiO2 10/13/16 14:07 98.0 68 21 148/66 (93) 96 Room Air 98.0 10/13/16 08:15 2.0 Intake and Output 10/13/16 07:00 Intake Total 1130 ml Output Total 700 ml Balance 430 ml Intake Oral 1130 ml Output Urine Total 700 ml # Voids 2 # Bowel Movements 1 Physical Exam Physical Exam No significant changes in cardiac exam Assessment Assessment A she is doing better today. She is compensated. No fever now. The blood cultures are pending. If the blood cultures are negative consider discharge in a.m. Comment Review of Relevant I have reviewed the following items alejandra (where applicable) has been applied. Labs Laboratory Tests Test 10/11/16 17:23 10/11/16 20:59 10/12/16 03:20 10/12/16 07:43 Glucose (Fingerstick) 217 mg/dL (70-99) 244 mg/dL (70-99) 102 mg/dL (70-99) White Blood Count 7.5 x10^3/uL (4.0-11.0) Red Blood Count 2.90 x10^6/uL (3.50-5.40) Hemoglobin 8.6 g/dL (12.0-15.5) Hematocrit 25.5 % (36.0-47.0) Mean Corpuscular Volume 88 fL (79-100) Mean Corpuscular Hemoglobin 30 pg (25-35) Mean Corpuscular Hemoglobin Concent 34 g/dL (31-37) Red Cell Distribution Width 16.3 % (11.5-14.5) Platelet Count 293 x10^3/uL (140-400) Neutrophils (%) (Auto) 68 % (31-73) Lymphocytes (%) (Auto) 19 % (24-48) Monocytes (%) (Auto) 9 % (0-9) Eosinophils (%) (Auto) 3 % (0-3) Basophils (%) (Auto) 1 % (0-3) Neutrophils # (Auto) 5.1 x10^3uL (1.8-7.7) Lymphocytes # (Auto) 1.5 x10^3/uL (1.0-4.8) Monocytes # (Auto) 0.7 x10^3/uL (0.0-1.1) Eosinophils # (Auto) 0.2 x10^3/uL (0.0-0.7) Basophils # (Auto) 0.1 x10^3/uL (0.0-0.2) Sodium Level 137 mmol/L (136-145) Potassium Level 3.7 mmol/L (3.5-5.1) Chloride Level 101 mmol/L (98-107) Carbon Dioxide Level 31 mmol/L (21-32) Anion Gap 5 (6-14) Blood Urea Nitrogen 18 mg/dL (7-20) Creatinine 1.0 mg/dL (0.6-1.0) Estimated GFR (Cockcroft-Gault) 53.3 Glucose Level 162 mg/dL (70-99) Calcium Level 9.4 mg/dL (8.5-10.1) Test 10/12/16 13:08 10/12/16 14:55 10/12/16 16:52 10/12/16 18:10 Glucose (Fingerstick) 134 mg/dL (70-99) 194 mg/dL (70-99) Erythrocyte Sedimentation Rate > 150 (0-25) C-Reactive Protein, Quantitative 115.2 mg/L (0-3.3) Urine Collection Type Unknown Urine Color Yellow Urine Clarity Clear Urine pH 5.5 Urine Specific [place] 1.015 Urine Protein Negative mg/dL (NEG-TRACE) Urine Glucose (UA) Negative mg/dL (NEG) Urine Ketones (Stick) Negative mg/dL (NEG) Urine Blood Negative (NEG) Urine Nitrite Negative (NEG) Urine Bilirubin Negative (NEG) Urine Urobilinogen Dipstick 0.2 mg/dL (0.2 mg/dL) Urine Leukocyte Esterase Trace (NEG) Urine RBC 0 /HPF (0-2) Urine WBC 5-10 /HPF (0-4) Urine Squamous Epithelial Cells Few /LPF Urine Bacteria 0 /HPF (0-FEW) Urine Hyaline Casts Many /HPF Urine Mucus Mod /LPF Test 10/12/16 21:06 10/13/16 07:57 10/13/16 09:30 10/13/16 11:44 Glucose (Fingerstick) 192 mg/dL (70-99) 74 mg/dL (70-99) 218 mg/dL (70-99) Prothrombin Time 14.4 SEC (11.7-14.0) Prothromb Time International Ratio 1.2 (0.8-1.1) Laboratory Tests Test 10/12/16 18:10 10/12/16 21:06 10/13/16 07:57 10/13/16 09:30 Urine Collection Type Unknown Urine Color Yellow Urine Clarity Clear Urine pH 5.5 Urine Specific [place] 1.015 Urine Protein Negative mg/dL (NEG-TRACE) Urine Glucose (UA) Negative mg/dL (NEG) Urine Ketones (Stick) Negative mg/dL (NEG) Urine Blood Negative (NEG) Urine Nitrite Negative (NEG) Urine Bilirubin Negative (NEG) Urine Urobilinogen Dipstick 0.2 mg/dL (0.2 mg/dL) Urine Leukocyte Esterase Trace (NEG) Urine RBC 0 /HPF (0-2) Urine WBC 5-10 /HPF (0-4) Urine Squamous Epithelial Cells Few /LPF Urine Bacteria 0 /HPF (0-FEW) Urine Hyaline Casts Many /HPF Urine Mucus Mod /LPF Glucose (Fingerstick) 192 mg/dL (70-99) 74 mg/dL (70-99) Prothrombin Time 14.4 SEC (11.7-14.0) Prothromb Time International Ratio 1.2 (0.8-1.1) Test 10/13/16 11:44 Glucose (Fingerstick) 218 mg/dL (70-99) Microbiology 10/12/16 Blood Culture - Preliminary, Resulted NO GROWTH AFTER 1 DAY 10/12/16 Urine Culture - Preliminary, Resulted 10/12/16 Urine Culture Result 1 (SHERRIE) - Preliminary, Resulted Medications Current Medications Sodium Chloride 1,000 ml @ 1,000 mls/hr 1X ONCE IV ; Start 10/11/16 at 04:15; Stop 10/11/16 at 04:17; Status DC Nitroglycerin (Nitrostat) 0.4 mg PRN Q5MIN PRN SL CHEST PAIN Last administered on 10/11/16 04:55; Start 10/11/16 at 04:15 Sodium Chloride 500 ml @ 500 mls/hr 1X ONCE IV Last administered on 10/11/16 04:25; Start 10/11/16 at 04:30; Stop 10/11/16 at 05:29; Status DC Heparin Sodium/ Dextrose 500 ml @ 0 mls/hr CONT PRN IV SEE I/O RECORD Last administered on 10/11/16 06:06; Start 10/11/16 at 05:45; Stop 10/12/16 at 14:18; Status DC Heparin Sodium (Porcine) (Heparin Sodium) 1,900 unit PRN Q6HRS PRN IV FOR UFH LEVEL LESS THAN 0.2 Last administered on 10/11/16 06:04; Start 10/11/16 at 05:45 ; Stop 10/12/16 at 14:18; Status DC Ondansetron HCl (Zofran) 4 mg PRN Q8HRS PRN IV NAUSEA/VOMITING; Start 10/11/16 at 06:00; Stop 10/11/16 at 08:38; Status DC Morphine Sulfate 4 mg PRN Q2HR PRN IV PAIN; Start 10/11/16 at 06:00; Stop at 05:59; Status DC Acetaminophen (Tylenol) 650 mg PRN Q4HRS PRN PO FEVER; Start 10/11/16 at 06:00; Stop 10/11/16 at 09:49; Status DC Nitroglycerin (Nitrostat) 0.4 mg PRN Q5MIN PRN SL CHEST PAIN; Start 10/11/16 at 06:00; Stop 10/12/16 at 05:59; Status DC Ondansetron HCl (Zofran) 4 mg PRN Q6HRS PRN IV NAUSEA/VOMITING; Start 10/11/16 at 08:36; Stop 10/12/16 at 08:35; Status DC Acetaminophen (Tylenol) 500 mg PRN QID PRN PO MILD PAIN; Start 10/11/16 at 08:45 Amlodipine Besylate (Norvasc) 10 mg DAILY PO Last administered on 10/13/16 08: 52; Start 10/11/16 at 09:00 Aspirin (Ecotrin) 325 mg DAILY PO ; Start 10/11/16 at 09:00; Status Cancel Atorvastatin Calcium (Lipitor) 40 mg HS PO Last administered on 10/12/16 21:02 ; Start 10/11/16 at 21:00 Clopidogrel Bisulfate (Plavix) 75 mg QODAY PO Last administered on 10/13/16 08: 51; Start 10/11/16 at 09:00 Docusate Sodium (Colace) 200 mg HS PO Last administered on 10/12/16 21:03; Start 10/11/16 at 21:00 Furosemide (Lasix) 80 mg BID92 PO Last administered on 10/13/16 14:41; Start at 09:00 Acetaminophen/ Hydrocodone Bitart (Lortab 5/325) 1 tab PRN Q12HR PRN PO MODERATE - SEVERE PAIN; Start 10/11/16 at 08:45 Isosorbide Mononitrate (Imdur) 60 mg DAILY PO Last administered on 10/13/16 08: 52; Start 10/11/16 at 09:00 Meclizine HCl (Antivert) 12.5 mg BID PO Last administered on 10/13/16 08:53; Start 10/11/16 at 09:00 Meloxicam (Mobic) 7.5 mg DAILY PO Last administered on 10/13/16 08:54; Start at 09:00 Metoprolol Tartrate (Lopressor) 25 mg BID PO Last administered on 10/13/16 08: 52; Start 10/11/16 at 09:00 Spironolactone (Aldactone) 25 mg DAILY PO Last administered on 10/13/16 08:52; Start 10/11/16 at 09:00 Warfarin Sodium (Coumadin) 2.5 mg QTUTHSASU PO Last administered on 10/12/16 17 :13; Start 10/11/16 at 16:00 Calcium/Vitamin D (Oscal D 500mg/ 200uts) 1 tab DAILYWBKFT PO Last administered on 10/13/16 08:53; Start 10/11/16 at 10:00 Vitamin D (Vitamin D3) 2,000 unit DAILY PO Last administered on 10/13/16 08:51 ; Start 10/11/16 at 10:00 Losartan Potassium (Cozaar) 50 mg DAILY PO Last administered on 10/13/16 08:53 ; Start 10/11/16 at 10:00 Insulin Detemir (Levemir) 20 units QHS SQ Last administered on 10/12/16 21:11; Start 10/11/16 at 21:00 Insulin Detemir (Levemir) 40 units DAILYWBKFT SQ Last administered on 10/13/16 08:56; Start 10/11/16 at 10:00 Pantoprazole Sodium (Protonix) 40 mg DAILYAC PO Last administered on 10/13/16 08:52; Start 10/11/16 at 11:30 Potassium Chloride (Klor-Con) 10 meq MoWeFr PO Last administered on 10/13/16 08 :53; Start 10/11/16 at 08:00 Insulin Aspart (NovoLOG) 0-9 UNITS TIDWMEALS SQ Last administered on 10/13/16 12:18; Start 10/11/16 at 12:00 Dextrose (Dextrose 50%-Water Syringe) 12.5 gm PRN Q15MIN PRN IV SEE COMMENTS; Start 10/11/16 at 08:45 Labetalol HCl (Normodyne) 10 mg PRN Q2HR PRN IVP HYPERTENSION, SEE COMMENTS; Start 10/11/16 at 08:45 Insulin Aspart (NovoLOG) 12 units 1X ONCE SQ Last administered on 10/11/16 09: 56; Start 10/11/16 at 09:45; Stop 10/11/16 at 09:46; Status DC Warfarin Sodium (Coumadin Per Physician) 1 each PRN DAILY PRN MC SEE COMMENTS Last administered on 10/13/16 13:00; Start 10/11/16 at 09:45 Aspirin (Ecotrin) 325 mg DAILY PO Last administered on 10/13/16 08:54; Start at 13:00 Enoxaparin Sodium (Lovenox Per Pharmacy Treatment Dosing) 1 each PRN DAILY PRN MC SEE COMMENTS; Start 10/12/16 at 14:15; Stop 10/13/16 at 13:00; Status DC Enoxaparin Sodium (Lovenox 80mg Syringe) 80 mg Q12HR SQ Last administered on 08:57; Start 10/12/16 at 14:30 Active Scripts Active Reported Clopidogrel (Clopidogrel Bisulfate) 75 Mg Tablet 1 Tab PO QODAY Metoprolol Tartrate 25 Mg Tablet 1 Tab PO BID Acetaminophen 500 Mg Tablet 500 Mg PO PRN PRN Warfarin Sodium 2 Mg Tablet 2.5 Mg PO QTUTHSASU Potassium Chloride 10 Meq Capsule.er 10 Meq PO 3X/WEEK Omeprazole 40 Mg Capsule.dr 1 Cap PO DAILYAC Meloxicam 7.5 Mg Tablet 1 Tab PO DAILY Meclizine Hcl 12.5 Mg Tablet 1 Tab PO BID Hydrocodone-Apap 5-325 (Hydrocodone Bit/Acetaminophen) 1 Each Tablet 1 Tab PO Q12HR PRN Humulin N (Nph, Human Insulin Isophane) 100 Unit/1 Ml Vial 20 Unit SQ HS Humulin N (Nph, Human Insulin Isophane) 100 Unit/1 Ml Vial 40 Unit SQ DAILYWBKFT Spironolactone 25 Mg Tablet 25 Mg PO DAILY Furosemide 80 Mg Tablet 80 Mg PO BID Stool Softener (Docusate Sodium) 100 Mg Capsule 200 Mg PO HS Amlodipine Besylate 10 Mg Tablet 10 Mg PO DAILY Losartan Potassium 100 Mg Tablet 100 Mg PO DAILY Atorvastatin Calcium 40 Mg Tablet 40 Mg PO HS Citracal + D Maximum Caplet (Calcium Citrate/Vitamin D3) 1 Each Tablet 1 Each PO DAILY Isosorbide Mononitrate Er (Isosorbide Mononitrate) 60 Mg Tab.er.24h 60 Mg PO DAILY Vitamin D-3 (Cholecalciferol (Vitamin D3)) 2,000 Unit Capsule 2,000 Unit PO DAILY Aspirin Ec (Aspirin) 81 Mg Tablet. 325 Mg PO DAILY Vitals/I & O Vital Sign - Last 24 Hours 10/12/16 10/12/16 10/12/16 10/12/16 19:34 19:49 21:03 23:31 Temp 98.5 98.9 98.5 98.9 Pulse 68 68 65 Resp 16 20 B/P (MAP) 125/41 (69) 125/41 138/45 (76) Pulse Ox 94 91 O2 Delivery Room Air Room Air Room Air O2 Flow Rate 2.0 10/13/16 10/13/16 10/13/16 10/13/16 03:30 07:00 08:15 08:52 Temp 98.7 98.8 98.7 98.8 Pulse 72 74 74 Resp 24 16 B/P (MAP) 146/62 (90) 145/70 (95) 145/70 Pulse Ox 93 95 O2 Delivery Nasal Cannula Nasal Cannula Room Air O2 Flow Rate 2.0 2.0 10/13/16 10/13/16 10/13/16 10/13/16 08:52 08:52 08:53 11:59 Temp 98.1 98.1 Pulse 74 74 74 64 Resp 20 B/P (MAP) 145/70 145/70 145/70 125/43 (70) Pulse Ox 92 O2 Delivery Room Air 10/13/16 14:07 Temp 98.0 98.0 Pulse 68 Resp 21 B/P (MAP) 148/66 (93) Pulse Ox 96 O2 Delivery Room Air Intake and Output 10/12/16 10/12/16 10/13/16 15:00 23:00 07:00 Intake Total 780 ml 350 ml Output Total 500 ml 200 ml Balance 280 ml 150 ml WILLY GURROLA MD Oct 13, 2016 17:14
[2016-10-13 19:43] VITALS: BP 150/67
[2016-10-13] MEDS: ATORVASTATIN CALCIUM 40 MG TABLET. PO SCH (20:44)
[2016-10-13] MEDS: DOCUSATE SODIUM 100 MG CAPSULE. PO SCH (20:44)
[2016-10-13 22:37] VITALS: BP 155/68
[2016-10-14 02:26] VITALS: BP 148/78
[2016-10-14 04:16] LABS: INR 1.2 (0.8-1.1); PROTHROMBIN TIME PATIENT 14.2 SEC (11.7-14.0)
[2016-10-14 07:00] VITALS: BP 147/57
[2016-10-14] MEDS: INSULIN ASPART 300 UNITS/3 ML INSULN.PEN SQ SCH ×2 (08:00→12:23)
[2016-10-14] MEDS: MELOXICAM 7.5 MG TABLET PO SCH (08:41)
[2016-10-14] MEDS: CHOLECALCIFEROL (VITAMIN D3) 1,000 UNIT TABLET PO SCH (08:41)
[2016-10-14] MEDS: PANTOPRAZOLE 40 MG TABLET.DR. PO SCH (08:41)
[2016-10-14] MEDS: FUROSEMIDE 80 MG TABLET. PO SCH (08:41)
[2016-10-14] MEDS: ASPIRIN ENTERIC COATED 325 MG TABLET.DR. PO SCH (08:41)
[2016-10-14] MEDS: SPIRONOLACTONE 25 MG TABLET PO SCH (08:41)
[2016-10-14] MEDS: MECLIZINE HCL 12.5 MG TABLET. PO SCH (08:41)
[2016-10-14] MEDS: LOSARTAN POTASSIUM 50 MG TABLET. PO SCH (08:42)
[2016-10-14] MEDS: amLODIPine BESYLATE 10 MG TABLET PO SCH (08:42)
[2016-10-14] MEDS: CALCIUM CARB/VIT D3 500/200 TABLET. PO SCH (08:42)
[2016-10-14] MEDS: METOPROLOL TART IMMED RELEASE 25 MG TABLET. PO SCH (08:42)
[2016-10-14] MEDS: ISOSORBIDE MONONITRATE ER 60 MG TAB.ER.24H. PO SCH (08:42)
[2016-10-14 11:00] VITALS: BP 136/63
[2016-10-14] MEDS: INSULIN DETEMIR 300 UNITS/3 ML INSULN.PEN. SQ SCH (12:23)
[2016-10-14] MEDS ORDERED: SMZ/TMP 800/160MG TABLET. PO SCH (13:00)
[2016-10-14] MEDS ORDERED: WARF3TAB7 PO (13:16)
--- NOTE | 2016-10-14 13:57 | PDOC ---
PROGRESS NOTES Subjective Subjective Patient feels better today. Urine cultures were negative. Blood cultures are pending Objective Objective Vital Signs Date Time Temp Pulse Resp B/P (MAP) Pulse Ox O2 Delivery O2 Flow Rate FiO2 10/14/16 11:00 98.6 75 18 136/63 (87) 95 Room Air 98.6 10/13/16 19:45 2.0 Intake and Output 10/14/16 07:00 Intake Total 340 ml Output Total 1750 ml Balance -1410 ml Intake Oral 340 ml Output Urine Total 1750 ml # Bowel Movements 1 Physical Exam Physical Exam No significant changes in cardiac exam Assessment Assessment Patient may go home. I would like to send her home on warfarin 2 mg by mouth daily and we will check as an outpatient and INR on Sunday. We will give her a prescription for Bactrim to take once a day if she starts having urinary tract problems again. She's had previous admissions with urinary tract infections. If her blood cultures come back positive then I will set her up as an outpatient to start getting antibiotics IV again. Comment Review of Relevant I have reviewed the following items alejandra (where applicable) has been applied. Labs Laboratory Tests Test 10/12/16 14:55 10/12/16 16:52 10/12/16 18:10 10/12/16 21:06 Erythrocyte Sedimentation Rate > 150 (0-25) C-Reactive Protein, Quantitative 115.2 mg/L (0-3.3) Glucose (Fingerstick) 194 mg/dL (70-99) 192 mg/dL (70-99) Urine Collection Type Unknown Urine Color Yellow Urine Clarity Clear Urine pH 5.5 Urine Specific [place] 1.015 Urine Protein Negative mg/dL (NEG-TRACE) Urine Glucose (UA) Negative mg/dL (NEG) Urine Ketones (Stick) Negative mg/dL (NEG) Urine Blood Negative (NEG) Urine Nitrite Negative (NEG) Urine Bilirubin Negative (NEG) Urine Urobilinogen Dipstick 0.2 mg/dL (0.2 mg/dL) Urine Leukocyte Esterase Trace (NEG) Urine RBC 0 /HPF (0-2) Urine WBC 5-10 /HPF (0-4) Urine Squamous Epithelial Cells Few /LPF Urine Bacteria 0 /HPF (0-FEW) Urine Hyaline Casts Many /HPF Urine Mucus Mod /LPF Test 10/13/16 07:57 10/13/16 09:30 10/13/16 11:44 10/13/16 17:23 Glucose (Fingerstick) 74 mg/dL (70-99) 218 mg/dL (70-99) 155 mg/dL (70-99) Prothrombin Time 14.4 SEC (11.7-14.0) Prothromb Time International Ratio 1.2 (0.8-1.1) Test 10/13/16 20:22 10/14/16 04:00 10/14/16 07:37 10/14/16 12:18 Glucose (Fingerstick) 141 mg/dL (70-99) 87 mg/dL (70-99) 228 mg/dL (70-99) Prothrombin Time 14.2 SEC (11.7-14.0) Prothromb Time International Ratio 1.2 (0.8-1.1) Laboratory Tests Test 10/13/16 17:23 10/13/16 20:22 10/14/16 04:00 10/14/16 07:37 Glucose (Fingerstick) 155 mg/dL (70-99) 141 mg/dL (70-99) 87 mg/dL (70-99) Prothrombin Time 14.2 SEC (11.7-14.0) Prothromb Time International Ratio 1.2 (0.8-1.1) Test 10/14/16 12:18 Glucose (Fingerstick) 228 mg/dL (70-99) Microbiology 10/12/16 Blood Culture - Preliminary, Resulted NO GROWTH AFTER 1 DAY 10/12/16 Urine Culture - Preliminary, Resulted 10/12/16 Urine Culture Result 1 (SHERRIE) - Preliminary, Resulted Medications Current Medications Sodium Chloride 1,000 ml @ 1,000 mls/hr 1X ONCE IV ; Start 10/11/16 at 04:15; Stop 10/11/16 at 04:17; Status DC Nitroglycerin (Nitrostat) 0.4 mg PRN Q5MIN PRN SL CHEST PAIN Last administered on 10/11/16 04:55; Start 10/11/16 at 04:15 Sodium Chloride 500 ml @ 500 mls/hr 1X ONCE IV Last administered on 10/11/16 04:25; Start 10/11/16 at 04:30; Stop 10/11/16 at 05:29; Status DC Heparin Sodium/ Dextrose 500 ml @ 0 mls/hr CONT PRN IV SEE I/O RECORD Last administered on 10/11/16 06:06; Start 10/11/16 at 05:45; Stop 10/12/16 at 14:18; Status DC Heparin Sodium (Porcine) (Heparin Sodium) 1,900 unit PRN Q6HRS PRN IV FOR UFH LEVEL LESS THAN 0.2 Last administered on 10/11/16 06:04; Start 10/11/16 at 05:45 ; Stop 10/12/16 at 14:18; Status DC Ondansetron HCl (Zofran) 4 mg PRN Q8HRS PRN IV NAUSEA/VOMITING; Start 10/11/16 at 06:00; Stop 10/11/16 at 08:38; Status DC Morphine Sulfate 4 mg PRN Q2HR PRN IV PAIN; Start 10/11/16 at 06:00; Stop at 05:59; Status DC Acetaminophen (Tylenol) 650 mg PRN Q4HRS PRN PO FEVER; Start 10/11/16 at 06:00; Stop 10/11/16 at 09:49; Status DC Nitroglycerin (Nitrostat) 0.4 mg PRN Q5MIN PRN SL CHEST PAIN; Start 10/11/16 at 06:00; Stop 10/12/16 at 05:59; Status DC Ondansetron HCl (Zofran) 4 mg PRN Q6HRS PRN IV NAUSEA/VOMITING; Start 10/11/16 at 08:36; Stop 10/12/16 at 08:35; Status DC Acetaminophen (Tylenol) 500 mg PRN QID PRN PO MILD PAIN; Start 10/11/16 at 08:45 Amlodipine Besylate (Norvasc) 10 mg DAILY PO Last administered on 10/14/16 08: 42; Start 10/11/16 at 09:00 Aspirin (Ecotrin) 325 mg DAILY PO ; Start 10/11/16 at 09:00; Status Cancel Atorvastatin Calcium (Lipitor) 40 mg HS PO Last administered on 10/13/16 20:44 ; Start 10/11/16 at 21:00 Clopidogrel Bisulfate (Plavix) 75 mg QODAY PO Last administered on 10/13/16 08: 51; Start 10/11/16 at 09:00 Docusate Sodium (Colace) 200 mg HS PO Last administered on 10/13/16 20:44; Start 10/11/16 at 21:00 Furosemide (Lasix) 80 mg BID92 PO Last administered on 10/14/16 08:41; Start 10/11/16 at 09:00 Acetaminophen/ Hydrocodone Bitart (Lortab 5/325) 1 tab PRN Q12HR PRN PO MODERATE - SEVERE PAIN; Start 10/11/16 at 08:45 Isosorbide Mononitrate (Imdur) 60 mg DAILY PO Last administered on 10/14/16 08 :42; Start 10/11/16 at 09:00 Meclizine HCl (Antivert) 12.5 mg BID PO Last administered on 10/14/16 08:41; Start 10/11/16 at 09:00 Meloxicam (Mobic) 7.5 mg DAILY PO Last administered on 10/14/16 08:41; Start 10/11/16 at 09:00 Metoprolol Tartrate (Lopressor) 25 mg BID PO Last administered on 10/14/16 08: 42; Start 10/11/16 at 09:00 Spironolactone (Aldactone) 25 mg DAILY PO Last administered on 10/14/16 08:41 ; Start 10/11/16 at 09:00 Warfarin Sodium (Coumadin) 2.5 mg QTUTHSASU PO Last administered on 10/12/16 17 :13; Start 10/11/16 at 16:00; Stop 10/14/16 at 10:56; Status DC Calcium/Vitamin D (Oscal D 500mg/ 200uts) 1 tab DAILYWBKFT PO Last administered on 10/14/16 08:42; Start 10/11/16 at 10:00 Vitamin D (Vitamin D3) 2,000 unit DAILY PO Last administered on 10/14/16 08:41 ; Start 10/11/16 at 10:00 Losartan Potassium (Cozaar) 50 mg DAILY PO Last administered on 10/14/16 08:42 ; Start 10/11/16 at 10:00 Insulin Detemir (Levemir) 20 units QHS SQ Last administered on 10/13/16 20:46; Start 10/11/16 at 21:00 Insulin Detemir (Levemir) 40 units DAILYWBKFT SQ Last administered on 12:23; Start 10/11/16 at 10:00 Pantoprazole Sodium (Protonix) 40 mg DAILYAC PO Last administered on 10/14/16 08:41; Start 10/11/16 at 11:30 Potassium Chloride (Klor-Con) 10 meq MoWeFr PO Last administered on 10/13/16 08 :53; Start 10/11/16 at 08:00 Insulin Aspart (NovoLOG) 0-9 UNITS TIDWMEALS SQ Last administered on 10/14/16 12:23; Start 10/11/16 at 12:00 Dextrose (Dextrose 50%-Water Syringe) 12.5 gm PRN Q15MIN PRN IV SEE COMMENTS; Start 10/11/16 at 08:45 Labetalol HCl (Normodyne) 10 mg PRN Q2HR PRN IVP HYPERTENSION, SEE COMMENTS; Start 10/11/16 at 08:45 Insulin Aspart (NovoLOG) 12 units 1X ONCE SQ Last administered on 10/11/16 09: 56; Start 10/11/16 at 09:45; Stop 10/11/16 at 09:46; Status DC Warfarin Sodium (Coumadin Per Physician) 1 each PRN DAILY PRN MC SEE COMMENTS Last administered on 10/14/16 10:47; Start 10/11/16 at 09:45; Stop 10/14/16 at 10:55; Status DC Aspirin (Ecotrin) 325 mg DAILY PO Last administered on 10/14/16 08:41; Start 10/11/16 at 13:00 Enoxaparin Sodium (Lovenox Per Pharmacy Treatment Dosing) 1 each PRN DAILY PRN MC SEE COMMENTS; Start 10/12/16 at 14:15; Stop 10/13/16 at 13:00; Status DC Enoxaparin Sodium (Lovenox 80mg Syringe) 80 mg Q12HR SQ Last administered on 08:43; Start 10/12/16 at 14:30 Warfarin Sodium (Coumadin Per Pharmacy) 1 each PRN DAILY PRN MC SEE COMMENTS Last administered on 10/14/16 10:59; Start 10/14/16 at 11:00 Warfarin Sodium (Coumadin) 4 mg 1X WARF ONCE PO ; Start 10/14/16 at 16:00; Stop 10/14/16 at 16:01 Trimethoprim/ Sulfamethoxazole (Bactrim Ds) 1 tab DAILY PO ; Start 10/14/16 at 13:00 Active Scripts Active Warfarin Sodium 3 Mg Tablet 1 Tab PO DAILY Reported Clopidogrel (Clopidogrel Bisulfate) 75 Mg Tablet 1 Tab PO QODAY Metoprolol Tartrate 25 Mg Tablet 1 Tab PO BID Acetaminophen 500 Mg Tablet 500 Mg PO PRN PRN Potassium Chloride 10 Meq Capsule.er 10 Meq PO 3X/WEEK Omeprazole 40 Mg Capsule.dr 1 Cap PO DAILYAC Meloxicam 7.5 Mg Tablet 1 Tab PO DAILY Meclizine Hcl 12.5 Mg Tablet 1 Tab PO BID Hydrocodone-Apap 5-325 (Hydrocodone Bit/Acetaminophen) 1 Each Tablet 1 Tab PO Q12HR PRN Humulin N (Nph, Human Insulin Isophane) 100 Unit/1 Ml Vial 20 Unit SQ HS Humulin N (Nph, Human Insulin Isophane) 100 Unit/1 Ml Vial 40 Unit SQ DAILYWBKFT Spironolactone 25 Mg Tablet 25 Mg PO DAILY Furosemide 80 Mg Tablet 80 Mg PO BID Stool Softener (Docusate Sodium) 100 Mg Capsule 200 Mg PO HS Amlodipine Besylate 10 Mg Tablet 10 Mg PO DAILY Losartan Potassium 100 Mg Tablet 100 Mg PO DAILY Atorvastatin Calcium 40 Mg Tablet 40 Mg PO HS Citracal + D Maximum Caplet (Calcium Citrate/Vitamin D3) 1 Each Tablet 1 Each PO DAILY Isosorbide Mononitrate Er (Isosorbide Mononitrate) 60 Mg Tab.er.24h 60 Mg PO DAILY Vitamin D-3 (Cholecalciferol (Vitamin D3)) 2,000 Unit Capsule 2,000 Unit PO DAILY Aspirin Ec (Aspirin) 81 Mg Tablet. 325 Mg PO DAILY Vitals/I & O Vital Sign - Last 24 Hours 10/13/16 10/13/16 10/13/16 10/13/16 14:07 19:43 19:45 20:44 Temp 98.0 97.9 98.0 97.9 Pulse 68 85 85 Resp 21 18 B/P (MAP) 148/66 (93) 150/67 (94) 150/67 Pulse Ox 96 93 O2 Delivery Room Air Room Air Room Air O2 Flow Rate 2.0 10/13/16 10/14/16 10/14/16 10/14/16 22:37 02:26 07:00 07:40 Temp 99.0 98.4 99.0 99.0 98.4 99.0 Pulse 72 75 75 Resp 18 18 16 B/P (MAP) 155/68 (97) 148/78 (101) 147/57 (87) Pulse Ox 94 94 94 O2 Delivery Room Air Room Air Room Air Room Air 10/14/16 10/14/16 10/14/16 10/14/16 08:42 08:42 08:42 08:42 Pulse 75 75 75 75 B/P (MAP) 147/57 147/57 147/57 147/57 10/14/16 11:00 Temp 98.6 98.6 Pulse 75 Resp 18 B/P (MAP) 136/63 (87) Pulse Ox 95 O2 Delivery Room Air Intake and Output 10/13/16 10/13/16 10/14/16 15:00 23:00 07:00 Intake Total 100 ml 240 ml Output Total 1000 ml 750 ml Balance -900 ml -510 ml WILLY GURROLA MD Oct 14, 2016 13:57
[2016-10-14] MEDS ORDERED: WARFARIN 4 MG TABLET. PO ONE (16:00)
== END 2016-10-14 14:00 | disposition home or self-care (01) | DRG 281 ==
LOC: ER 04:00 → 2 NORTH 05:34
PROVIDERS: ADMIT Internal Medicine; ATTEND Internal Medicine
DX: I21.4 Non-ST elevation (NSTEMI) myocardial infarction (principal); I50.42 Chronic combined systolic (congestive) and diastolic (congestive) heart failure; D63.8 Anemia in other chronic diseases classified elsewhere; E11.65 Type 2 diabetes mellitus with hyperglycemia; E78.5 Hyperlipidemia, unspecified; I11.0 Hypertensive heart disease with heart failure; Z96.659 Presence of unspecified artificial knee joint; I25.10 Atherosclerotic heart disease of native coronary artery without angina pectoris; I27.2 Other secondary pulmonary hypertension; I34.0 Nonrheumatic mitral (valve) insufficiency; K21.9 Gastro-esophageal reflux disease without esophagitis; Z66 Do not resuscitate; Z79.01 Long term (current) use of anticoagulants; I25.2 Old myocardial infarction; Z79.4 Long term (current) use of insulin; Z82.49 Family history of ischemic heart disease and other diseases of the circulatory system; Z83.3 Family history of diabetes mellitus; Z85.3 Personal history of malignant neoplasm of breast; Z86.711 Personal history of pulmonary embolism; Z86.718 Personal history of other venous thrombosis and embolism; Z90.49 Acquired absence of other specified parts of digestive tract; Z90.710 Acquired absence of both cervix and uterus; Z95.5 Presence of coronary angioplasty implant and graft; Z79.899 Other long term (current) drug therapy; Z79.2 Long term (current) use of antibiotics; Z79.1 Long term (current) use of non-steroidal anti-inflammatories (NSAID); Z79.82 Long term (current) use of aspirin
CPT/HCPCS: 36415; 71010; 80048; 80053; 81001; 82962; 84484; 85027; 85520; 85610; 85651; 86140; 87040; 87086; 93005; 96361; 96374; J1650; J1815; J7040; J8597; 99291-25

== ENCOUNTER 2016-11-10 15:32 | Inpatient (IN) | payer MEDICARE ==
[~2016-11-10] VITALS: Ht 160 cm; Wt 79.0 kg
[~2016-11-10 15:32] MED LIST changes: -CALC-157 PO; -INSU100C4 SQ; -INSU100I17 SQ; -INSU100V13 SQ; -NITR0.4T22 SL; -PANT40TA3 PO
[2016-11-10 19:22] VITALS: BP 120/45
[2016-11-10] MEDS ORDERED: NITR0.4T22 SL (20:24)
[2016-11-10] MEDS ORDERED: INSU100C4 SQ (20:24)
[2016-11-10] MEDS ORDERED: PANT40TA3 PO (20:24)
[2016-11-10] MEDS ORDERED: INSU100I17 SQ (20:24)
[2016-11-10] MEDS ORDERED: WARF2TAB7 PO (20:24)
[2016-11-10] MEDS ORDERED: CALC-157 PO (20:24)
[2016-11-10] MEDS ORDERED: INSU100V13 SQ (20:24)
[2016-11-10] MEDS ORDERED: HYDROcodone/APAP 5/325MG 1 TAB TABLET PO PRN (20:45)
[2016-11-10] MEDS ORDERED: ACETAMINOPHEN 500 MG TABLET PO PRN (20:45)
[2016-11-10] MEDS ORDERED: NITROGLYCERIN SUBLINGUAL 0.4 MG BOTTLE OF 25. SL PRN (20:45)
[2016-11-10 21:25] LABS: BASO % 1 % (0-3); EOS % 3 % (0-3); HEMATOCRIT 31.9 % (36.0-47.0); HEMOGLOBIN 10.4 g/dL (12.0-15.5); LYMPH # 1.6 x10^3/uL (1.0-4.8); LYMPH % 18 % (24-48); MEAN CORPUSCULAR HEMOGLOBIN 29 pg (25-35); MEAN CORPUSCULAR HGB CONC 33 g/dL (31-37); MEAN CORPUSCULAR VOLUME 89 fL (79-100); MONO % 6 % (0-9); NEUT % 72 % (31-73); PLATELET COUNT 388 x10^3/uL (140-400); RED BLOOD COUNT 3.59 x10^6/uL (3.50-5.40); RED CELL DISTRIBUTION WIDTH 16.5 % (11.5-14.5); WHITE BLOOD COUNT 8.8 x10^3/uL (4.0-11.0)
[2016-11-10 21:34] LABS: INR 1.3 (0.8-1.1); PROTHROMBIN TIME PATIENT 15.6 SEC (11.7-14.0)
[2016-11-10 21:38] LABS: ALBUMIN/GLOBULIN RATIO 0.5 (1.0-1.7); CALCIUM 9.9 mg/dL (8.5-10.1); CREATININE 1.5 mg/dL (0.6-1.0); GFR 33.4; POTASSIUM 4.6 mmol/L (3.5-5.1); TOTAL BILIRUBIN 0.2 mg/dL (0.2-1.0); TOTAL PROTEIN 8.7 g/dL (6.4-8.2)
[2016-11-10] MEDS: DOCUSATE SODIUM 100 MG CAPSULE. PO SCH (22:26)
[2016-11-10] MEDS: ATORVASTATIN CALCIUM 40 MG TABLET. PO SCH (22:26)
[2016-11-10] MEDS: MECLIZINE HCL 12.5 MG TABLET. PO SCH (22:26)
[2016-11-10] MEDS: INSULIN DETEMIR 300 UNITS/3 ML INSULN.PEN. SQ SCH (22:28)
[2016-11-10] MEDS: METOPROLOL TART IMMED RELEASE 25 MG TABLET. PO SCH (22:31)
[2016-11-10] MEDS: INSULIN ASPART 300 UNITS/3 ML INSULN.PEN SQ SCH (23:00)
[2016-11-10 23:02] VITALS: BP 154/53
[2016-11-11 03:10] VITALS: BP 122/54
[2016-11-11 07:00] VITALS: BP 125/70
--- NOTE | 2016-11-11 08:10 | RAD ---
Examination: 2 views of the chest. History: History of pneumonia. Comparison: 10/18/2016 Findings: The cardiomediastinal silhouette grossly appears unremarkable. A right-sided PICC line is identified with the tip projecting in the distal SVC region. There is no acute infiltrate or visualized pneumothorax identified. Mild hyperinflated lungs. Moderate degenerative changes thoracic spine. Impression: 1. No acute cardiopulmonary findings.
[2016-11-11] MEDS: ASPIRIN ENTERIC COATED 325 MG TABLET.DR. PO SCH (08:18)
[2016-11-11] MEDS: SPIRONOLACTONE 25 MG TABLET PO SCH (08:18)
[2016-11-11] MEDS: PANTOPRAZOLE 40 MG TABLET.DR. PO SCH (08:18)
[2016-11-11] MEDS: MECLIZINE HCL 12.5 MG TABLET. PO SCH ×2 (08:19→20:56)
[2016-11-11] MEDS: METOPROLOL TART IMMED RELEASE 25 MG TABLET. PO SCH ×2 (08:20→21:00)
[2016-11-11] MEDS: LOSARTAN POTASSIUM 50 MG TABLET. PO SCH (08:20)
[2016-11-11] MEDS: FUROSEMIDE 80 MG TABLET. PO SCH ×2 (08:20→16:18)
[2016-11-11] MEDS: ISOSORBIDE MONONITRATE ER 30 MG TAB.ER.24H PO SCH (08:20)
[2016-11-11] MEDS: CHOLECALCIFEROL (VITAMIN D3) 1,000 UNIT TABLET PO SCH (08:21)
[2016-11-11] MEDS: amLODIPine BESYLATE 10 MG TABLET PO SCH (08:21)
[2016-11-11] MEDS: MELOXICAM 7.5 MG TABLET PO SCH (08:21)
[2016-11-11] MEDS: CALCIUM CARB/VIT D3 500/200 TABLET. PO SCH (08:21)
[2016-11-11] MEDS: INSULIN ASPART 300 UNITS/3 ML INSULN.PEN SQ SCH ×7 (08:28→21:02)
--- NOTE | 2016-11-11 09:26 | PDOC2 ---
IM Consult Referring physician Dr Cast for ? endocarditis Date of Admission DATE: 11/11/16 TIME: 09:16 Chief Complaint Chief Complaint Pt is admitted for not feeling well, flutuating blood glucose, 60-600, some headache, no fever, no n/v/d/pain Problems: Past Medical History Cardiovascular: CAD, CHF, HTN, [place], Valve insufficiency, Pulmonary hypertension , Other (h/o endocarditis) GI: GERD, Gastritis Heme/Onc: Cancer Renal/: Chronic renal insuff Endocrine: Diabetes Past Surgical History Past Surgical History: Pacemaker, Other Past Family History Family History: No Significant, Diabetes, Hypertension Past Social History PSH no smoking, etoh or drugs Review of Symptoms Review of Symptoms General ROS: positive for - Psychological ROS: negative Ophthalmic ROS: negative ENT ROS: negative Allergy and Immunology ROS: negative Hematology and Lymphatic: negative Endocrine ROS: negative Respiratory ROS: no cold, cough, dyspnea. Cardiovascular ROS: no chest pain or dyspnea on exertion Gastrointestinal ROS: no abdominal pain, change in bowel habits, or black or bloody stools Genito-Urinary ROS: no dysuria, trouble voiding, or hematuria Musculoskeletal ROS: no pain Neurological ROS: negative Dermatological ROS: no rash Medications Current Medications Acetaminophen (Tylenol) 500 mg PRN Q8HRS PRN PO MILD PAIN Last administered on 11/11/16 08:22; Start 11/10/16 at 20:45 Acetaminophen/ Hydrocodone Bitart (Lortab 5/325) 1 tab PRN Q12HR PRN PO MODERATE - SEVERE PAIN; Start 11/10/16 at 20:45 Amlodipine Besylate (Norvasc) 10 mg DAILY PO Last administered on 11/11/16 08: 21; Start 11/11/16 at 09:00 Aspirin (Ecotrin) 325 mg DAILYWBKFT PO Last administered on 11/11/16 08:18; Start 11/11/16 at 08:00 Atorvastatin Calcium (Lipitor) 40 mg HS PO Last administered on 11/10/16 22:26 ; Start 11/10/16 at 21:00 Calcium/Vitamin D (Oscal D 500mg/ 200uts) 1 tab DAILY PO Last administered on 08:21; Start 11/11/16 at 09:00 Clopidogrel Bisulfate (Plavix) 75 mg QODAY PO ; Start 11/12/16 at 09:00; Stop 11/12/16 at 09:00; Status DC Docusate Sodium (Colace) 200 mg HS PO Last administered on 11/10/16 22:26; Start 11/10/16 at 21:00 Furosemide (Lasix) 80 mg BID94 PO Last administered on 11/11/16 08:20; Start at 09:00 Insulin Aspart (NovoLOG) 6 units TIDAC SQ Last administered on 11/11/16 08:28; Start 11/11/16 at 07:30 Insulin Aspart (NovoLOG) 150-200 3 UNITS 201-25... TIDACHC SQ Last administered on 11/11/16 08:28; Start 11/10/16 at 23:00 Insulin Detemir (Levemir) 50 units QHS SQ Last administered on 11/10/16 22:28; Start 11/10/16 at 21:30 Isosorbide Mononitrate (Imdur) 60 mg DAILY PO Last administered on 11/11/16 08: 20; Start 11/11/16 at 09:00 Losartan Potassium (Cozaar) 50 mg DAILY PO Last administered on 11/11/16 08:20 ; Start 11/11/16 at 09:00 Meclizine HCl (Antivert) 12.5 mg BID PO Last administered on 11/11/16 08:19; Start 11/10/16 at 21:00 Meloxicam (Mobic) 7.5 mg DAILY PO Last administered on 11/11/16 08:21; Start at 09:00 Metoprolol Tartrate (Lopressor) 25 mg BID PO Last administered on 11/11/16 08: 20; Start 11/10/16 at 21:00 Nitroglycerin (Nitrostat) 0.4 mg PRN Q5MIN PRN SL CHEST PAIN; Start 11/10/16 at 20:45 Pantoprazole Sodium (Protonix) 40 mg DAILYAC PO Last administered on 11/11/16 08:18; Start 11/11/16 at 07:30 Potassium Chloride (Klor-Con) 10 meq 3X/WEEK PO ; Start 11/13/16 at 09:00 Spironolactone (Aldactone) 25 mg DAILY PO Last administered on 11/11/16 08:18; Start 11/11/16 at 09:00 Vitamin D (Vitamin D3) 2,000 unit DAILY PO Last administered on 11/11/16 08:21 ; Start 11/11/16 at 09:00 Warfarin Sodium (Coumadin Per Physician) 1 each PRN DAILY PRN MC SEE COMMENTS Last administered on 11/11/16 09:09; Start 11/10/16 at 22:00 Warfarin Sodium (Coumadin) 2 mg DAILY16 PO ; Start 11/11/16 at 16:00 Allergy Allergies Coded Allergies Type Severity Reaction Last Updated Verified Iodinated Contrast- Oral and IV Dye Allergy Severe Anaphylaxis 03/18/16 Yes adhesive tape Allergy Intermediate 03/19/16 Yes meperidine Adverse Reaction Intermediate Vomiting 04/19/16 Yes Physical Exam Physical Exam General appearance - alert,well appearing, and in no distress and oriented to person, place, and time Mental Status - alert, oriented to person, place, and time, affect appropriate to mood Head - normal Chest - clear to auscultation, no wheezes, rales or rhonchi, symmetric air entry Heart - S1 and S2 normal Abdomen - soft, nontender, nondistended, no masses or organomegaly Neurological - alert and oriented Musculoskeletal - no muscular tenderness noted Extremities - no pedal edema Skin - warm and dry Labs Laboratory Tests Test 11/10/16 20:40 11/10/16 21:00 11/11/16 07:43 Glucose (Fingerstick) 429 mg/dL (70-99) 188 mg/dL (70-99) White Blood Count 8.8 x10^3/uL (4.0-11.0) Red Blood Count 3.59 x10^6/uL (3.50-5.40) Hemoglobin 10.4 g/dL (12.0-15.5) Hematocrit 31.9 % (36.0-47.0) Mean Corpuscular Volume 89 fL (79-100) Mean Corpuscular Hemoglobin 29 pg (25-35) Mean Corpuscular Hemoglobin Concent 33 g/dL (31-37) Red Cell Distribution Width 16.5 % (11.5-14.5) Platelet Count 388 x10^3/uL (140-400) Neutrophils (%) (Auto) 72 % (31-73) Lymphocytes (%) (Auto) 18 % (24-48) Monocytes (%) (Auto) 6 % (0-9) Eosinophils (%) (Auto) 3 % (0-3) Basophils (%) (Auto) 1 % (0-3) Neutrophils # (Auto) 6.3 x10^3uL (1.8-7.7) Lymphocytes # (Auto) 1.6 x10^3/uL (1.0-4.8) Monocytes # (Auto) 0.6 x10^3/uL (0.0-1.1) Eosinophils # (Auto) 0.2 x10^3/uL (0.0-0.7) Basophils # (Auto) 0.0 x10^3/uL (0.0-0.2) Prothrombin Time 15.6 SEC (11.7-14.0) Prothromb Time International Ratio 1.3 (0.8-1.1) Sodium Level 133 mmol/L (136-145) Potassium Level 4.6 mmol/L (3.5-5.1) Chloride Level 95 mmol/L (98-107) Carbon Dioxide Level 30 mmol/L (21-32) Anion Gap 8 (6-14) Blood Urea Nitrogen 42 mg/dL (7-20) Creatinine 1.5 mg/dL (0.6-1.0) Estimated GFR (Cockcroft-Gault) 33.4 BUN/Creatinine Ratio 28 (6-20) Glucose Level 439 mg/dL (70-99) Calcium Level 9.9 mg/dL (8.5-10.1) Total Bilirubin 0.2 mg/dL (0.2-1.0) Aspartate Amino Transf (AST/SGOT) 21 U/L (15-37) Alanine Aminotransferase (ALT/SGPT) 37 U/L (14-59) Alkaline Phosphatase 144 U/L (46-116) Total Protein 8.7 g/dL (6.4-8.2) Albumin 3.0 g/dL (3.4-5.0) Albumin/Globulin Ratio 0.5 (1.0-1.7) Laboratory Tests Test 11/10/16 20:40 11/10/16 21:00 11/11/16 07:43 Glucose (Fingerstick) 429 mg/dL (70-99) 188 mg/dL (70-99) White Blood Count 8.8 x10^3/uL (4.0-11.0) Red Blood Count 3.59 x10^6/uL (3.50-5.40) Hemoglobin 10.4 g/dL (12.0-15.5) Hematocrit 31.9 % (36.0-47.0) Mean Corpuscular Volume 89 fL (79-100) Mean Corpuscular Hemoglobin 29 pg (25-35) Mean Corpuscular Hemoglobin Concent 33 g/dL (31-37) Red Cell Distribution Width 16.5 % (11.5-14.5) Platelet Count 388 x10^3/uL (140-400) Neutrophils (%) (Auto) 72 % (31-73) Lymphocytes (%) (Auto) 18 % (24-48) Monocytes (%) (Auto) 6 % (0-9) Eosinophils (%) (Auto) 3 % (0-3) Basophils (%) (Auto) 1 % (0-3) Neutrophils # (Auto) 6.3 x10^3uL (1.8-7.7) Lymphocytes # (Auto) 1.6 x10^3/uL (1.0-4.8) Monocytes # (Auto) 0.6 x10^3/uL (0.0-1.1) Eosinophils # (Auto) 0.2 x10^3/uL (0.0-0.7) Basophils # (Auto) 0.0 x10^3/uL (0.0-0.2) Prothrombin Time 15.6 SEC (11.7-14.0) Prothromb Time International Ratio 1.3 (0.8-1.1) Sodium Level 133 mmol/L (136-145) Potassium Level 4.6 mmol/L (3.5-5.1) Chloride Level 95 mmol/L (98-107) Carbon Dioxide Level 30 mmol/L (21-32) Anion Gap 8 (6-14) Blood Urea Nitrogen 42 mg/dL (7-20) Creatinine 1.5 mg/dL (0.6-1.0) Estimated GFR (Cockcroft-Gault) 33.4 BUN/Creatinine Ratio 28 (6-20) Glucose Level 439 mg/dL (70-99) Calcium Level 9.9 mg/dL (8.5-10.1) Total Bilirubin 0.2 mg/dL (0.2-1.0) Aspartate Amino Transf (AST/SGOT) 21 U/L (15-37) Alanine Aminotransferase (ALT/SGPT) 37 U/L (14-59) Alkaline Phosphatase 144 U/L (46-116) Total Protein 8.7 g/dL (6.4-8.2) Albumin 3.0 g/dL (3.4-5.0) Albumin/Globulin Ratio 0.5 (1.0-1.7) Vitals Vital Signs Date Time Temp Pulse Resp B/P (MAP) Pulse Ox O2 Delivery O2 Flow Rate FiO2 11/11/16 08:21 59 125/70 11/11/16 07:43 Room Air 11/11/16 07:00 99.0 16 97 99.0 Assessment Assessment Fluctuating Blood glucose ? etiology H/O Endocarditis, no evidence s/s or recurrence CHF DM Plan Plan bc taken, will follow no need for antibiotics diabetic education ERINN BARRIOS MD Nov 11, 2016 09:26
[2016-11-11 11:00] VITALS: BP 101/28
[2016-11-11 15:00] VITALS: BP 115/32
[2016-11-11] MEDS: WARFARIN 2 MG TABLET. PO SCH (16:18)
--- NOTE | 2016-11-11 18:55 | PDOC1 ---
History and Physical Date of Admission Date of Admission DATE: 11/11/16 TIME: 18:49 Identification/Chief Complaint Chief Complaint Dyspnea, fatigue Problems: History of Present Illness History of Present Illness This patient is a very pleasant 81-year-old lady that has a long history of cardiac problems. She has mitral insufficiency and has a recent diagnosis of bacterial endocarditis with positive blood cultures and has an abnormal echocardiogram that showed a vegetation on the anterior mitral leaflet. The patient was treated with over 6 weeks of IV antibiotics and has had several hospital admissions. The last echocardiogram that was done showed almost complete dissolution of the vegetation. She now comes in with weakness and fatigue elevations of the CRP and overall deterioration. I talked to the nurse practitioner at the assisted living with the patient resides and he was decided to bring the patient in for an echocardiogram, cultures and further treatment. Past Medical History Cardiovascular: CAD, CHF, HTN, [place], Valve insufficiency, Pulmonary hypertension , Other (h/o endocarditis) GI: GERD, Gastritis Heme/Onc: Cancer Renal/: Chronic renal insuff Endocrine: Diabetes Past Surgical History Past Surgical History: Pacemaker, Other Family History Family History: No Significant, Diabetes, Hypertension Social History ALCOHOL: none Drugs: None Current Medications Current Medications Current Medications Acetaminophen (Tylenol) 500 mg PRN Q8HRS PRN PO MILD PAIN Last administered on 11/11/16 08:22; Start 11/10/16 at 20:45 Amlodipine Besylate (Norvasc) 10 mg DAILY PO Last administered on 11/11/16 08: 21; Start 11/11/16 at 09:00 Aspirin (Ecotrin) 325 mg DAILYWBKFT PO Last administered on 11/11/16 08:18; Start 11/11/16 at 08:00 Atorvastatin Calcium (Lipitor) 40 mg HS PO Last administered on 11/10/16 22:26 ; Start 11/10/16 at 21:00 Calcium/Vitamin D (Oscal D 500mg/ 200uts) 1 tab DAILY PO Last administered on 08:21; Start 11/11/16 at 09:00 Clopidogrel Bisulfate (Plavix) 75 mg QODAY PO ; Start 11/12/16 at 09:00; Stop 11/12/16 at 09:00; Status DC Docusate Sodium (Colace) 200 mg HS PO Last administered on 11/10/16 22:26; Start 11/10/16 at 21:00 Furosemide (Lasix) 80 mg BID94 PO Last administered on 11/11/16 16:18; Start at 09:00 Acetaminophen/ Hydrocodone Bitart (Lortab 5/325) 1 tab PRN Q12HR PRN PO MODERATE - SEVERE PAIN; Start 11/10/16 at 20:45 Meclizine HCl (Antivert) 12.5 mg BID PO Last administered on 11/11/16 08:19; Start 11/10/16 at 21:00 Meloxicam (Mobic) 7.5 mg DAILY PO Last administered on 11/11/16 08:21; Start at 09:00 Metoprolol Tartrate (Lopressor) 25 mg BID PO Last administered on 11/11/16 08: 20; Start 11/10/16 at 21:00 Nitroglycerin (Nitrostat) 0.4 mg PRN Q5MIN PRN SL CHEST PAIN; Start 11/10/16 at 20:45 Pantoprazole Sodium (Protonix) 40 mg DAILYAC PO Last administered on 11/11/16 08:18; Start 11/11/16 at 07:30 Spironolactone (Aldactone) 25 mg DAILY PO Last administered on 11/11/16 08:18; Start 11/11/16 at 09:00 Warfarin Sodium (Coumadin) 2 mg DAILY16 PO Last administered on 11/11/16 16:18 ; Start 11/11/16 at 16:00 Vitamin D (Vitamin D3) 2,000 unit DAILY PO Last administered on 11/11/16 08:21 ; Start 11/11/16 at 09:00 Insulin Aspart (NovoLOG) 6 units TIDAC SQ Last administered on 11/11/16 17:36; Start 11/11/16 at 07:30 Insulin Detemir (Levemir) 50 units QHS SQ Last administered on 11/10/16 22:28; Start 11/10/16 at 21:30 Isosorbide Mononitrate (Imdur) 60 mg DAILY PO Last administered on 11/11/16 08: 20; Start 11/11/16 at 09:00 Losartan Potassium (Cozaar) 50 mg DAILY PO Last administered on 11/11/16 08:20 ; Start 11/11/16 at 09:00 Potassium Chloride (Klor-Con) 10 meq 3X/WEEK PO ; Start 11/13/16 at 09:00 Warfarin Sodium (Coumadin Per Physician) 1 each PRN DAILY PRN MC SEE COMMENTS Last administered on 11/11/16 09:09; Start 11/10/16 at 22:00 Insulin Aspart (NovoLOG) 150-200 3 UNITS 201-25... TIDACHC SQ Last administered on 11/11/16 17:28; Start 11/10/16 at 23:00 Active Scripts Active Reported Calcium 500 + Vit D 200 Tablet (Calcium Carbonate/Vitamin D3) 1 Each Tablet 1 Each PO DAILY Novolog (Insulin Aspart) 100 Unit/1 Ml Cartridge 6 Unit SQ TIDBFRMEAL Novolog Flexpen (Insulin Aspart) 100 Unit/1 Ml Insuln.pen 1 Unit SQ 150-200= 3units 201-250= 6 units 251-300= 9 units 301-350= 12 units 351-400= 15 units 401+= notify Levsiriair (Insulin Detemir) 100 Unit/1 Ml Vial 50 Unit SQ QHS NITROGLYCERIN SubLingual (Nitroglycerin) 0.4 Mg Tab.subl 0.4 Mg SL PRN Q5MIN PRN Protonix (Pantoprazole Sodium) 40 Mg Tablet.dr 1 Tab PO DAILY Warfarin Sodium 2 Mg Tablet 1 Tab PO DAILY Metoprolol Tartrate 25 Mg Tablet 1 Tab PO BID Acetaminophen 500 Mg Tablet 500 Mg PO PRN Q8HRS PRN Potassium Chloride 10 Meq Capsule.er 10 Meq PO 3X/WEEK sunday, sunday, sunday Meloxicam 7.5 Mg Tablet 1 Tab PO DAILY Meclizine Hcl 12.5 Mg Tablet 1 Tab PO BID Hydrocodone-Apap 5-325 (Hydrocodone Bit/Acetaminophen) 1 Each Tablet 1 Tab PO Q12HR PRN Spironolactone 25 Mg Tablet 25 Mg PO DAILY Furosemide 80 Mg Tablet 80 Mg PO BID Stool Softener (Docusate Sodium) 100 Mg Capsule 200 Mg PO HS Amlodipine Besylate 10 Mg Tablet 10 Mg PO DAILY hold if sbp less than 100 Losartan Potassium 100 Mg Tablet 50 Mg PO DAILY Atorvastatin Calcium 40 Mg Tablet 40 Mg PO HS Isosorbide Mononitrate Er (Isosorbide Mononitrate) 60 Mg Tab.er.24h 60 Mg PO DAILY Vitamin D-3 (Cholecalciferol (Vitamin D3)) 2,000 Unit Capsule 2,000 Unit PO DAILY Aspirin Ec (Aspirin) 81 Mg Tablet.dr 325 Mg PO DAILY Allergies Allergies: Coded Allergies: Iodinated Contrast- Oral and IV Dye (Verified Allergy, Severe, Anaphylaxis , 03/18/16) adhesive tape (Verified Allergy, Intermediate, 03/19/16) meperidine (Verified Adverse Reaction, Intermediate, Vomiting, 04/19/16) Physical Exam General: Alert, Oriented X3, Cooperative HEENT: Atraumatic, PERRLA Lungs: Clear to auscultation Heart: S1S2, RRR, no rubs, murmurs Abdomen: Normal bowel sounds, Soft Rectal Exam: not examined Extremities: No edema Neuro: Normal gait, Normal speech, Strength at 5/5 X4 ext, Normal tone, Sensation intact, Cranial nerves 3-12 NL, Reflexes 2+ Vitals Vitals Vital Signs Date Time Temp Pulse Resp B/P (MAP) Pulse Ox O2 Delivery O2 Flow Rate FiO2 11/11/16 15:00 98.5 58 16 115/32 (59) 96 Room Air 98.5 Labs Labs Laboratory Tests Test 11/10/16 20:40 11/10/16 21:00 11/11/16 07:43 11/11/16 10:56 Glucose (Fingerstick) 429 mg/dL (70-99) 188 mg/dL (70-99) 147 mg/dL (70-99) White Blood Count 8.8 x10^3/uL (4.0-11.0) Red Blood Count 3.59 x10^6/uL (3.50-5.40) Hemoglobin 10.4 g/dL (12.0-15.5) Hematocrit 31.9 % (36.0-47.0) Mean Corpuscular Volume 89 fL (79-100) Mean Corpuscular Hemoglobin 29 pg (25-35) Mean Corpuscular Hemoglobin Concent 33 g/dL (31-37) Red Cell Distribution Width 16.5 % (11.5-14.5) Platelet Count 388 x10^3/uL (140-400) Neutrophils (%) (Auto) 72 % (31-73) Lymphocytes (%) (Auto) 18 % (24-48) Monocytes (%) (Auto) 6 % (0-9) Eosinophils (%) (Auto) 3 % (0-3) Basophils (%) (Auto) 1 % (0-3) Neutrophils # (Auto) 6.3 x10^3uL (1.8-7.7) Lymphocytes # (Auto) 1.6 x10^3/uL (1.0-4.8) Monocytes # (Auto) 0.6 x10^3/uL (0.0-1.1) Eosinophils # (Auto) 0.2 x10^3/uL (0.0-0.7) Basophils # (Auto) 0.0 x10^3/uL (0.0-0.2) Prothrombin Time 15.6 SEC (11.7-14.0) Prothromb Time International Ratio 1.3 (0.8-1.1) Sodium Level 133 mmol/L (136-145) Potassium Level 4.6 mmol/L (3.5-5.1) Chloride Level 95 mmol/L (98-107) Carbon Dioxide Level 30 mmol/L (21-32) Anion Gap 8 (6-14) Blood Urea Nitrogen 42 mg/dL (7-20) Creatinine 1.5 mg/dL (0.6-1.0) Estimated GFR (Cockcroft-Gault) 33.4 BUN/Creatinine Ratio 28 (6-20) Glucose Level 439 mg/dL (70-99) Calcium Level 9.9 mg/dL (8.5-10.1) Total Bilirubin 0.2 mg/dL (0.2-1.0) Aspartate Amino Transf (AST/SGOT) 21 U/L (15-37) Alanine Aminotransferase (ALT/SGPT) 37 U/L (14-59) Alkaline Phosphatase 144 U/L (46-116) Total Protein 8.7 g/dL (6.4-8.2) Albumin 3.0 g/dL (3.4-5.0) Albumin/Globulin Ratio 0.5 (1.0-1.7) Test 11/11/16 16:54 Glucose (Fingerstick) 225 mg/dL (70-99) Laboratory Tests Test 11/10/16 20:40 11/10/16 21:00 11/11/16 07:43 11/11/16 10:56 Glucose (Fingerstick) 429 mg/dL (70-99) 188 mg/dL (70-99) 147 mg/dL (70-99) White Blood Count 8.8 x10^3/uL (4.0-11.0) Red Blood Count 3.59 x10^6/uL (3.50-5.40) Hemoglobin 10.4 g/dL (12.0-15.5) Hematocrit 31.9 % (36.0-47.0) Mean Corpuscular Volume 89 fL (79-100) Mean Corpuscular Hemoglobin 29 pg (25-35) Mean Corpuscular Hemoglobin Concent 33 g/dL (31-37) Red Cell Distribution Width 16.5 % (11.5-14.5) Platelet Count 388 x10^3/uL (140-400) Neutrophils (%) (Auto) 72 % (31-73) Lymphocytes (%) (Auto) 18 % (24-48) Monocytes (%) (Auto) 6 % (0-9) Eosinophils (%) (Auto) 3 % (0-3) Basophils (%) (Auto) 1 % (0-3) Neutrophils # (Auto) 6.3 x10^3uL (1.8-7.7) Lymphocytes # (Auto) 1.6 x10^3/uL (1.0-4.8) Monocytes # (Auto) 0.6 x10^3/uL (0.0-1.1) Eosinophils # (Auto) 0.2 x10^3/uL (0.0-0.7) Basophils # (Auto) 0.0 x10^3/uL (0.0-0.2) Prothrombin Time 15.6 SEC (11.7-14.0) Prothromb Time International Ratio 1.3 (0.8-1.1) Sodium Level 133 mmol/L (136-145) Potassium Level 4.6 mmol/L (3.5-5.1) Chloride Level 95 mmol/L (98-107) Carbon Dioxide Level 30 mmol/L (21-32) Anion Gap 8 (6-14) Blood Urea Nitrogen 42 mg/dL (7-20) Creatinine 1.5 mg/dL (0.6-1.0) Estimated GFR (Cockcroft-Gault) 33.4 BUN/Creatinine Ratio 28 (6-20) Glucose Level 439 mg/dL (70-99) Calcium Level 9.9 mg/dL (8.5-10.1) Total Bilirubin 0.2 mg/dL (0.2-1.0) Aspartate Amino Transf (AST/SGOT) 21 U/L (15-37) Alanine Aminotransferase (ALT/SGPT) 37 U/L (14-59) Alkaline Phosphatase 144 U/L (46-116) Total Protein 8.7 g/dL (6.4-8.2) Albumin 3.0 g/dL (3.4-5.0) Albumin/Globulin Ratio 0.5 (1.0-1.7) Test 11/11/16 16:54 Glucose (Fingerstick) 225 mg/dL (70-99) VTE Prophylaxis Ordered VTE Prophylaxis Devices: Yes VTE Pharmacological Prophylaxi: Yes Assessment/Plan Assessment/Plan This patient is a lady that is very well-known to me as well as the institution from multiple admissions over the years. She comes in with possible recurrence of her bacterial endocarditis and I am concerned that if this is the case that we need to resume IV antibiotics, check the echocardiogram and consult infectious disease. Depending on the results of the cultures, the recommendations of the infectious disease physician, and the results of the echocardiogram will then decide about further workup and treatment. WILLY GURROLA MD Nov 11, 2016 18:55
[2016-11-11 19:00] VITALS: BP 111/46
[2016-11-11] MEDS: ATORVASTATIN CALCIUM 40 MG TABLET. PO SCH (20:56)
[2016-11-11] MEDS: DOCUSATE SODIUM 100 MG CAPSULE. PO SCH (20:57)
[2016-11-11] MEDS: INSULIN DETEMIR 300 UNITS/3 ML INSULN.PEN. SQ SCH (21:01)
[2016-11-11 23:00] VITALS: BP 152/38
[2016-11-12 03:00] VITALS: BP 143/38
[2016-11-12 06:58] LABS: INR 1.2 (0.8-1.1); PROTHROMBIN TIME PATIENT 14.3 SEC (11.7-14.0)
--- NOTE | 2016-11-12 06:59 | PDOC ---
Infectious Disease Note Subjective Subjective Doing ok. Didn't sleep much, Occ chill ROS ROS GEN: Denies fevers, sweats HEENT: Denies blurred vision, sore throat CV: Denies chest pain RESP: Denies shortness of air, has occ cough GI: Denies n/v/ NEURO: Denies confusion, dizziness MSK: Denies weakness, joint pain/swelling Vital Sign Vital Signs Vital Signs Date Time Temp Pulse Resp B/P (MAP) Pulse Ox O2 Delivery O2 Flow Rate FiO2 11/12/16 03:00 98.9 59 17 143/38 (73) 94 Room Air 98.9 Physical Exam PHYSICAL EXAM GENERAL: NAD, Alert, sitting up playing [employer] and drinking coffee HEENT: PERRL -s/p cataract, OC/OP- clear NECK: Supple, no JVD, no LN LUNGS: Clear - on 02 HEART: S1S2, no gallop, no murmur ABD: Soft, NT, no organomegaly, no rebound EXT: No edema, no cyanosis 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 etiology H/O Endocarditis, no evidence s/s or recurrence CHF DM Plan Plan of Care Cont off abx F/u labs and cults HARJINDER PANTOJA MD Nov 12, 2016 06:59
[2016-11-12 07:00] VITALS: BP 132/29
[2016-11-12] MEDS: INSULIN ASPART 300 UNITS/3 ML INSULN.PEN SQ SCH ×7 (07:30→20:59)
[2016-11-12] MEDS: CALCIUM CARB/VIT D3 500/200 TABLET. PO SCH (08:37)
[2016-11-12] MEDS: MECLIZINE HCL 12.5 MG TABLET. PO SCH ×2 (08:37→20:55)
[2016-11-12] MEDS: LOSARTAN POTASSIUM 50 MG TABLET. PO SCH (08:37)
[2016-11-12] MEDS: ISOSORBIDE MONONITRATE ER 30 MG TAB.ER.24H PO SCH (08:37)
[2016-11-12] MEDS: MELOXICAM 7.5 MG TABLET PO SCH (08:37)
[2016-11-12] MEDS: SPIRONOLACTONE 25 MG TABLET PO SCH (08:38)
[2016-11-12] MEDS: METOPROLOL TART IMMED RELEASE 25 MG TABLET. PO SCH ×2 (08:38→20:55)
[2016-11-12] MEDS: ASPIRIN ENTERIC COATED 325 MG TABLET.DR. PO SCH (08:38)
[2016-11-12] MEDS: FUROSEMIDE 80 MG TABLET. PO SCH ×2 (08:38→17:09)
[2016-11-12] MEDS: amLODIPine BESYLATE 10 MG TABLET PO SCH (08:38)
[2016-11-12] MEDS: PANTOPRAZOLE 40 MG TABLET.DR. PO SCH (08:38)
[2016-11-12] MEDS: CHOLECALCIFEROL (VITAMIN D3) 1,000 UNIT TABLET PO SCH (08:39)
[2016-11-12] MEDS ORDERED: CLOPIDOGREL BISULFATE 75 MG TABLET PO SCH (09:00)
[2016-11-12 10:50] VITALS: BP 134/35
--- NOTE | 2016-11-12 14:49 | PDOC ---
PROGRESS NOTES Subjective Subjective Covering for Dr. Cast. The patient has no symptoms today. Objective Objective Vital Signs Remains afebrile. No stigmata of embolization. Lungs are clear. Date Time Temp Pulse Resp B/P (MAP) Pulse Ox O2 Delivery O2 Flow Rate FiO2 11/12/16 10:50 97.6 57 18 134/35 (68) 98 Room Air 97.6 Intake and Output 11/12/16 07:00 Intake Total 1060 ml Output Total 1650 ml Balance -590 ml Intake Oral 1060 ml Output Urine Total 1650 ml Diagnosis DIAGNOSIS History of endocarditis. Febrile illness consider recurrence. Diabetes mellitus with fluctuating blood sugars. Problems: Plan Plan of Care Await blood cultures. May need ELADIO. Dr. Cast returns tomorrow. Comment Review of Relevant I have reviewed the following items alejandra (where applicable) has been applied. Labs Laboratory Tests Test 11/10/16 20:40 11/10/16 21:00 11/11/16 07:43 11/11/16 10:56 Glucose (Fingerstick) 429 mg/dL (70-99) 188 mg/dL (70-99) 147 mg/dL (70-99) White Blood Count 8.8 x10^3/uL (4.0-11.0) Red Blood Count 3.59 x10^6/uL (3.50-5.40) Hemoglobin 10.4 g/dL (12.0-15.5) Hematocrit 31.9 % (36.0-47.0) Mean Corpuscular Volume 89 fL (79-100) Mean Corpuscular Hemoglobin 29 pg (25-35) Mean Corpuscular Hemoglobin Concent 33 g/dL (31-37) Red Cell Distribution Width 16.5 % (11.5-14.5) Platelet Count 388 x10^3/uL (140-400) Neutrophils (%) (Auto) 72 % (31-73) Lymphocytes (%) (Auto) 18 % (24-48) Monocytes (%) (Auto) 6 % (0-9) Eosinophils (%) (Auto) 3 % (0-3) Basophils (%) (Auto) 1 % (0-3) Neutrophils # (Auto) 6.3 x10^3uL (1.8-7.7) Lymphocytes # (Auto) 1.6 x10^3/uL (1.0-4.8) Monocytes # (Auto) 0.6 x10^3/uL (0.0-1.1) Eosinophils # (Auto) 0.2 x10^3/uL (0.0-0.7) Basophils # (Auto) 0.0 x10^3/uL (0.0-0.2) Prothrombin Time 15.6 SEC (11.7-14.0) Prothromb Time International Ratio 1.3 (0.8-1.1) Sodium Level 133 mmol/L (136-145) Potassium Level 4.6 mmol/L (3.5-5.1) Chloride Level 95 mmol/L (98-107) Carbon Dioxide Level 30 mmol/L (21-32) Anion Gap 8 (6-14) Blood Urea Nitrogen 42 mg/dL (7-20) Creatinine 1.5 mg/dL (0.6-1.0) Estimated GFR (Cockcroft-Gault) 33.4 BUN/Creatinine Ratio 28 (6-20) Glucose Level 439 mg/dL (70-99) Calcium Level 9.9 mg/dL (8.5-10.1) Total Bilirubin 0.2 mg/dL (0.2-1.0) Aspartate Amino Transf (AST/SGOT) 21 U/L (15-37) Alanine Aminotransferase (ALT/SGPT) 37 U/L (14-59) Alkaline Phosphatase 144 U/L (46-116) Total Protein 8.7 g/dL (6.4-8.2) Albumin 3.0 g/dL (3.4-5.0) Albumin/Globulin Ratio 0.5 (1.0-1.7) Test 11/11/16 16:54 11/11/16 20:25 11/12/16 06:20 11/12/16 07:51 Glucose (Fingerstick) 225 mg/dL (70-99) 194 mg/dL (70-99) 119 mg/dL (70-99) Prothrombin Time 14.3 SEC (11.7-14.0) Prothromb Time International Ratio 1.2 (0.8-1.1) Test 11/12/16 11:31 Glucose (Fingerstick) 211 mg/dL (70-99) Laboratory Tests Test 11/11/16 16:54 11/11/16 20:25 11/12/16 06:20 11/12/16 07:51 Glucose (Fingerstick) 225 mg/dL (70-99) 194 mg/dL (70-99) 119 mg/dL (70-99) Prothrombin Time 14.3 SEC (11.7-14.0) Prothromb Time International Ratio 1.2 (0.8-1.1) Test 11/12/16 11:31 Glucose (Fingerstick) 211 mg/dL (70-99) Microbiology 11/10/16 Blood Culture - Preliminary, Resulted NO GROWTH AFTER 1 DAY Medications Current Medications Acetaminophen (Tylenol) 500 mg PRN Q8HRS PRN PO MILD PAIN Last administered on 11/11/16 08:22; Start 11/10/16 at 20:45 Amlodipine Besylate (Norvasc) 10 mg DAILY PO Last administered on 11/12/16 08: 38; Start 11/11/16 at 09:00 Aspirin (Ecotrin) 325 mg DAILYWBKFT PO Last administered on 11/12/16 08:38; Start 11/11/16 at 08:00 Atorvastatin Calcium (Lipitor) 40 mg HS PO Last administered on 11/11/16 20:56 ; Start 11/10/16 at 21:00 Calcium/Vitamin D (Oscal D 500mg/ 200uts) 1 tab DAILY PO Last administered on 08:37; Start 11/11/16 at 09:00 Clopidogrel Bisulfate (Plavix) 75 mg QODAY PO ; Start 11/12/16 at 09:00; Stop 11/12/16 at 09:00; Status DC Docusate Sodium (Colace) 200 mg HS PO Last administered on 11/11/16 20:57; Start 11/10/16 at 21:00 Furosemide (Lasix) 80 mg BID94 PO Last administered on 11/12/16 08:38; Start at 09:00 Acetaminophen/ Hydrocodone Bitart (Lortab 5/325) 1 tab PRN Q12HR PRN PO MODERATE - SEVERE PAIN; Start 11/10/16 at 20:45 Meclizine HCl (Antivert) 12.5 mg BID PO Last administered on 11/12/16 08:37; Start 11/10/16 at 21:00 Meloxicam (Mobic) 7.5 mg DAILY PO Last administered on 11/12/16 08:37; Start at 09:00 Metoprolol Tartrate (Lopressor) 25 mg BID PO Last administered on 11/12/16 08: 38; Start 11/10/16 at 21:00 Nitroglycerin (Nitrostat) 0.4 mg PRN Q5MIN PRN SL CHEST PAIN; Start 11/10/16 at 20:45 Pantoprazole Sodium (Protonix) 40 mg DAILYAC PO Last administered on 11/12/16 08:38; Start 11/11/16 at 07:30 Spironolactone (Aldactone) 25 mg DAILY PO Last administered on 11/12/16 08:38; Start 11/11/16 at 09:00 Warfarin Sodium (Coumadin) 2 mg DAILY16 PO Last administered on 11/11/16 16:18 ; Start 11/11/16 at 16:00 Vitamin D (Vitamin D3) 2,000 unit DAILY PO Last administered on 11/12/16 08:39 ; Start 11/11/16 at 09:00 Insulin Aspart (NovoLOG) 6 units TIDAC SQ Last administered on 11/12/16 12:11; Start 11/11/16 at 07:30 Insulin Detemir (Levemir) 50 units QHS SQ Last administered on 11/11/16 21:01; Start 11/10/16 at 21:30 Isosorbide Mononitrate (Imdur) 60 mg DAILY PO Last administered on 11/12/16 08: 37; Start 11/11/16 at 09:00 Losartan Potassium (Cozaar) 50 mg DAILY PO Last administered on 11/12/16 08:37 ; Start 11/11/16 at 09:00 Potassium Chloride (Klor-Con) 10 meq 3X/WEEK PO ; Start 11/13/16 at 09:00 Warfarin Sodium (Coumadin Per Physician) 1 each PRN DAILY PRN MC SEE COMMENTS Last administered on 11/12/16 09:31; Start 11/10/16 at 22:00 Insulin Aspart (NovoLOG) 150-200 3 UNITS 201-25... TIDACHC SQ Last administered on 11/12/16 12:12; Start 11/10/16 at 23:00 Active Scripts Active Reported Calcium 500 + Vit D 200 Tablet (Calcium Carbonate/Vitamin D3) 1 Each Tablet 1 Each PO DAILY Novolog (Insulin Aspart) 100 Unit/1 Ml Cartridge 6 Unit SQ TIDBFRMEAL Novolog Flexpen (Insulin Aspart) 100 Unit/1 Ml Insuln.pen 1 Unit SQ 150-200= 3units 201-250= 6 units 251-300= 9 units 301-350= 12 units 351-400= 15 units 401+= notify Levemir (Insulin Detemir) 100 Unit/1 Ml Vial 50 Unit SQ QHS NITROGLYCERIN SubLingual (Nitroglycerin) 0.4 Mg Tab.subl 0.4 Mg SL PRN Q5MIN PRN Protonix (Pantoprazole Sodium) 40 Mg Tablet.dr 1 Tab PO DAILY Warfarin Sodium 2 Mg Tablet 1 Tab PO DAILY Metoprolol Tartrate 25 Mg Tablet 1 Tab PO BID Acetaminophen 500 Mg Tablet 500 Mg PO PRN Q8HRS PRN Potassium Chloride 10 Meq Capsule.er 10 Meq PO 3X/WEEK sunday, sunday, sunday Meloxicam 7.5 Mg Tablet 1 Tab PO DAILY Meclizine Hcl 12.5 Mg Tablet 1 Tab PO BID Hydrocodone-Apap 5-325 (Hydrocodone Bit/Acetaminophen) 1 Each Tablet 1 Tab PO Q12HR PRN Spironolactone 25 Mg Tablet 25 Mg PO DAILY Furosemide 80 Mg Tablet 80 Mg PO BID Stool Softener (Docusate Sodium) 100 Mg Capsule 200 Mg PO HS Amlodipine Besylate 10 Mg Tablet 10 Mg PO DAILY hold if sbp less than 100 Losartan Potassium 100 Mg Tablet 50 Mg PO DAILY Atorvastatin Calcium 40 Mg Tablet 40 Mg PO HS Isosorbide Mononitrate Er (Isosorbide Mononitrate) 60 Mg Tab.er.24h 60 Mg PO DAILY Vitamin D-3 (Cholecalciferol (Vitamin D3)) 2,000 Unit Capsule 2,000 Unit PO DAILY Aspirin Ec (Aspirin) 81 Mg Tablet. 325 Mg PO DAILY Vitals/I & O Vital Sign - Last 24 Hours 11/11/16 11/11/16 11/11/16 11/11/16 15:00 19:00 20:00 21:00 Temp 98.5 98.5 98.5 98.5 Pulse 58 61 50 Resp 16 18 B/P (MAP) 115/32 (59) 111/46 (67) 111/46 Pulse Ox 96 94 O2 Delivery Room Air Room Air Room Air 11/11/16 11/12/16 11/12/16 11/12/16 23:00 03:00 07:00 08:10 Temp 98.7 98.9 98.9 98.7 98.9 98.9 Pulse 63 59 58 Resp 18 17 18 B/P (MAP) 152/38 (76) 143/38 (73) 132/29 (63) Pulse Ox 96 94 99 O2 Delivery Room Air Room Air Room Air Room Air 11/12/16 11/12/16 11/12/16 11/12/16 08:37 08:37 08:38 08:38 Pulse 58 58 58 58 B/P (MAP) 132/29 132/29 132/29 132/29 11/12/16 10:50 Temp 97.6 97.6 Pulse 57 Resp 18 B/P (MAP) 134/35 (68) Pulse Ox 98 O2 Delivery Room Air Intake and Output 11/11/16 11/11/16 11/12/16 15:00 23:00 07:00 Intake Total 250 ml 760 ml 50 ml Output Total 1350 ml 300 ml Balance 250 ml -590 ml -250 ml ABI MALAGON MD Nov 12, 2016 14:48
[2016-11-12 15:00] VITALS: BP 110/29
[2016-11-12] MEDS: WARFARIN 2 MG TABLET. PO SCH (17:09)
[2016-11-12 19:00] VITALS: BP 129/36
[2016-11-12] MEDS: DOCUSATE SODIUM 100 MG CAPSULE. PO SCH (20:54)
[2016-11-12] MEDS: ATORVASTATIN CALCIUM 40 MG TABLET. PO SCH (20:55)
[2016-11-12] MEDS: INSULIN DETEMIR 300 UNITS/3 ML INSULN.PEN. SQ SCH (20:58)
[2016-11-12 23:30] VITALS: BP 112/46
[2016-11-13 04:05] VITALS: BP 124/53
[2016-11-13 06:22] VITALS: BP 165/86
[2016-11-13 07:10] VITALS: BP 110/48
[2016-11-13] MEDS: INSULIN ASPART 300 UNITS/3 ML INSULN.PEN SQ SCH ×6 (07:30→17:37)
[2016-11-13 08:02] LABS: HEMATOCRIT 30.4 % (36.0-47.0); HEMOGLOBIN 10.3 g/dL (12.0-15.5); RED BLOOD COUNT 3.47 x10^6/uL (3.50-5.40); RED CELL DISTRIBUTION WIDTH 16.3 % (11.5-14.5); WHITE BLOOD COUNT 8.5 x10^3/uL (4.0-11.0)
[2016-11-13 08:17] LABS: INR 1.1 (0.8-1.1); PROTHROMBIN TIME PATIENT 13.8 SEC (11.7-14.0)
--- NOTE | 2016-11-13 08:17 | PDOC ---
Infectious Disease Note Subjective Subjective Doing ok. Has dull CRUZ which is unusual for her. O/w fine and ready to go ROS ROS GEN: Denies fevers, chills, sweats HEENT: Denies blurred vision, sore throat CV: Denies chest pain RESP: Denies shortness of air, cough GI: Denies n/v/d NEURO: Denies confusion, dizziness MSK: Denies weakness, joint pain/swelling Vital Sign Vital Signs Vital Signs Date Time Temp Pulse Resp B/P (MAP) Pulse Ox O2 Delivery O2 Flow Rate FiO2 11/13/16 07:10 98.5 56 18 110/48 (68) 97 Room Air 98.5 Physical Exam PHYSICAL EXAM GENERAL: NAD, Alert. 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, oriented x 3, no focal neurologic deficit SKIN: No rash IV: ok Labs Lab Laboratory Tests Test 11/12/16 11:31 11/12/16 16:28 11/12/16 20:29 11/13/16 07:17 Glucose (Fingerstick) 211 mg/dL (70-99) 171 mg/dL (70-99) 243 mg/dL (70-99) 105 mg/dL (70-99) Test 11/13/16 07:40 White Blood Count 8.5 x10^3/uL (4.0-11.0) Red Blood Count 3.47 x10^6/uL (3.50-5.40) Hemoglobin 10.3 g/dL (12.0-15.5) Hematocrit 30.4 % (36.0-47.0) Mean Corpuscular Volume 88 fL (79-100) Mean Corpuscular Hemoglobin 30 pg (25-35) Mean Corpuscular Hemoglobin Concent 34 g/dL (31-37) Red Cell Distribution Width 16.3 % (11.5-14.5) Platelet Count 322 x10^3/uL (140-400) Objective Assessment Fluctuating Blood glucose ? etiology Occ CRUZ. ? related to blood sugar ? HTN. No obvious weaknesses/droop/slurred speech/dizziness/sinus pressure or drainage H/O Endocarditis, no evidence s/s or recurrence. Blood cults are neg CHF DM Plan Plan of Care Cont off abx ID to sign off HARJINDER PANTOJA MD Nov 13, 2016 08:16
[2016-11-13 08:19] LABS: CALCIUM 9.6 mg/dL (8.5-10.1); CREATININE 1.5 mg/dL (0.6-1.0); GFR 33.4
[2016-11-13 08:36] LABS: POTASSIUM 4.5 mmol/L (3.5-5.1)
[2016-11-13] MEDS: MECLIZINE HCL 12.5 MG TABLET. PO SCH (08:38)
[2016-11-13] MEDS: LOSARTAN POTASSIUM 50 MG TABLET. PO SCH (08:39)
[2016-11-13] MEDS: amLODIPine BESYLATE 10 MG TABLET PO SCH (08:39)
[2016-11-13] MEDS: ASPIRIN ENTERIC COATED 325 MG TABLET.DR. PO SCH (08:40)
[2016-11-13] MEDS: METOPROLOL TART IMMED RELEASE 25 MG TABLET. PO SCH (08:40)
[2016-11-13] MEDS: MELOXICAM 7.5 MG TABLET PO SCH (08:40)
[2016-11-13] MEDS: ISOSORBIDE MONONITRATE ER 30 MG TAB.ER.24H PO SCH (08:40)
[2016-11-13] MEDS: CHOLECALCIFEROL (VITAMIN D3) 1,000 UNIT TABLET PO SCH (08:41)
[2016-11-13] MEDS: FUROSEMIDE 80 MG TABLET. PO SCH ×2 (08:41→16:21)
[2016-11-13] MEDS: CALCIUM CARB/VIT D3 500/200 TABLET. PO SCH (08:41)
[2016-11-13] MEDS: PANTOPRAZOLE 40 MG TABLET.DR. PO SCH (08:41)
[2016-11-13] MEDS: SPIRONOLACTONE 25 MG TABLET PO SCH (08:46)
[2016-11-13] MEDS ORDERED: POTASSIUM CHLORIDE 10 MEQ TABLET.ER. PO SCH (09:00)
[2016-11-13] MEDS ORDERED: HYDROmorphone 2 MG/ML VIAL IV PRN (10:45)
[2016-11-13 11:15] VITALS: BP 127/59
--- NOTE | 2016-11-13 13:20 | PDOC ---
PROGRESS NOTES Subjective Subjective Ms Astorga has maintained stable vitals. She doesn't complain of chest pain or shortness of breath. Objective Objective Vital Signs Date Time Temp Pulse Resp B/P (MAP) Pulse Ox O2 Delivery O2 Flow Rate FiO2 11/13/16 11:15 98.7 56 18 127/59 (81) 97 Room Air 98.7 Intake and Output 11/13/16 07:00 Intake Total 1130 ml Output Total 1450 ml Balance -320 ml Intake Oral 1130 ml Output Urine Total 1450 ml # Voids 2 # Bowel Movements 3 Physical Exam Heart: Regular rate (and rhythm), Normal S1, Normal S2 Extremities: No edema, Normal pulses (2/4 radial b/l) General: Alert, No acute distress Lungs: Clear to auscultation (b/l) Assessment Assessment Ms Astorga has no symptoms, with negative cultures after two days. Will discharge home Comment Review of Relevant I have reviewed the following items alejandra (where applicable) has been applied. Labs Laboratory Tests Test 11/11/16 16:54 11/11/16 20:25 11/12/16 06:20 11/12/16 07:51 Glucose (Fingerstick) 225 mg/dL (70-99) 194 mg/dL (70-99) 119 mg/dL (70-99) Prothrombin Time 14.3 SEC (11.7-14.0) Prothromb Time International Ratio 1.2 (0.8-1.1) Test 11/12/16 11:31 11/12/16 16:28 11/12/16 20:29 11/13/16 07:17 Glucose (Fingerstick) 211 mg/dL (70-99) 171 mg/dL (70-99) 243 mg/dL (70-99) 105 mg/dL (70-99) Test 11/13/16 07:40 11/13/16 11:13 White Blood Count 8.5 x10^3/uL (4.0-11.0) Red Blood Count 3.47 x10^6/uL (3.50-5.40) Hemoglobin 10.3 g/dL (12.0-15.5) Hematocrit 30.4 % (36.0-47.0) Mean Corpuscular Volume 88 fL (79-100) Mean Corpuscular Hemoglobin 30 pg (25-35) Mean Corpuscular Hemoglobin Concent 34 g/dL (31-37) Red Cell Distribution Width 16.3 % (11.5-14.5) Platelet Count 322 x10^3/uL (140-400) Prothrombin Time 13.8 SEC (11.7-14.0) Prothromb Time International Ratio 1.1 (0.8-1.1) Sodium Level 136 mmol/L (136-145) Potassium Level 4.5 mmol/L (3.5-5.1) Chloride Level 101 mmol/L (98-107) Carbon Dioxide Level 28 mmol/L (21-32) Anion Gap 7 (6-14) Blood Urea Nitrogen 56 mg/dL (7-20) Creatinine 1.5 mg/dL (0.6-1.0) Estimated GFR (Cockcroft-Gault) 33.4 Glucose Level 97 mg/dL (70-99) Calcium Level 9.6 mg/dL (8.5-10.1) Glucose (Fingerstick) 189 mg/dL (70-99) Laboratory Tests Test 11/12/16 16:28 11/12/16 20:29 11/13/16 07:17 11/13/16 07:40 Glucose (Fingerstick) 171 mg/dL (70-99) 243 mg/dL (70-99) 105 mg/dL (70-99) White Blood Count 8.5 x10^3/uL (4.0-11.0) Red Blood Count 3.47 x10^6/uL (3.50-5.40) Hemoglobin 10.3 g/dL (12.0-15.5) Hematocrit 30.4 % (36.0-47.0) Mean Corpuscular Volume 88 fL (79-100) Mean Corpuscular Hemoglobin 30 pg (25-35) Mean Corpuscular Hemoglobin Concent 34 g/dL (31-37) Red Cell Distribution Width 16.3 % (11.5-14.5) Platelet Count 322 x10^3/uL (140-400) Prothrombin Time 13.8 SEC (11.7-14.0) Prothromb Time International Ratio 1.1 (0.8-1.1) Sodium Level 136 mmol/L (136-145) Potassium Level 4.5 mmol/L (3.5-5.1) Chloride Level 101 mmol/L (98-107) Carbon Dioxide Level 28 mmol/L (21-32) Anion Gap 7 (6-14) Blood Urea Nitrogen 56 mg/dL (7-20) Creatinine 1.5 mg/dL (0.6-1.0) Estimated GFR (Cockcroft-Gault) 33.4 Glucose Level 97 mg/dL (70-99) Calcium Level 9.6 mg/dL (8.5-10.1) Test 11/13/16 11:13 Glucose (Fingerstick) 189 mg/dL (70-99) Microbiology 11/10/16 Blood Culture - Preliminary, Resulted NO GROWTH AFTER 2 DAYS Medications Current Medications Acetaminophen (Tylenol) 500 mg PRN Q8HRS PRN PO MILD PAIN Last administered on 11/11/16 08:22; Start 11/10/16 at 20:45 Amlodipine Besylate (Norvasc) 10 mg DAILY PO Last administered on 11/13/16 08: 39; Start 11/11/16 at 09:00 Aspirin (Ecotrin) 325 mg DAILYWBKFT PO Last administered on 11/13/16 08:40; Start 11/11/16 at 08:00 Atorvastatin Calcium (Lipitor) 40 mg HS PO Last administered on 11/12/16 20:55 ; Start 11/10/16 at 21:00 Calcium/Vitamin D (Oscal D 500mg/ 200uts) 1 tab DAILY PO Last administered on 08:41; Start 11/11/16 at 09:00 Clopidogrel Bisulfate (Plavix) 75 mg QODAY PO ; Start 11/12/16 at 09:00; Stop 11/12/16 at 09:00; Status DC Docusate Sodium (Colace) 200 mg HS PO Last administered on 11/12/16 20:54; Start 11/10/16 at 21:00 Furosemide (Lasix) 80 mg BID94 PO Last administered on 11/13/16 08:41; Start 11/11/16 at 09:00 Acetaminophen/ Hydrocodone Bitart (Lortab 5/325) 1 tab PRN Q12HR PRN PO MODERATE - SEVERE PAIN; Start 11/10/16 at 20:45 Meclizine HCl (Antivert) 12.5 mg BID PO Last administered on 11/13/16 08:38; Start 11/10/16 at 21:00 Meloxicam (Mobic) 7.5 mg DAILY PO Last administered on 11/13/16 08:40; Start 11/11/16 at 09:00 Metoprolol Tartrate (Lopressor) 25 mg BID PO Last administered on 11/13/16 08: 40; Start 11/10/16 at 21:00 Nitroglycerin (Nitrostat) 0.4 mg PRN Q5MIN PRN SL CHEST PAIN; Start 11/10/16 at 20:45 Pantoprazole Sodium (Protonix) 40 mg DAILYAC PO Last administered on 11/13/16 08:41; Start 11/11/16 at 07:30 Spironolactone (Aldactone) 25 mg DAILY PO Last administered on 11/13/16 08:46 ; Start 11/11/16 at 09:00 Warfarin Sodium (Coumadin) 2 mg DAILY16 PO Last administered on 11/12/16 17:09 ; Start 11/11/16 at 16:00 Vitamin D (Vitamin D3) 2,000 unit DAILY PO Last administered on 11/13/16 08:41 ; Start 11/11/16 at 09:00 Insulin Aspart (NovoLOG) 6 units TIDAC SQ Last administered on 11/13/16 12:56 ; Start 11/11/16 at 07:30 Insulin Detemir (Levemir) 50 units QHS SQ Last administered on 11/12/16 20:58; Start 11/10/16 at 21:30 Isosorbide Mononitrate (Imdur) 60 mg DAILY PO Last administered on 11/13/16 08 :40; Start 11/11/16 at 09:00 Losartan Potassium (Cozaar) 50 mg DAILY PO Last administered on 11/13/16 08:39 ; Start 11/11/16 at 09:00 Potassium Chloride (Klor-Con) 10 meq 3X/WEEK PO Last administered on 11/13/16 08:41; Start 11/13/16 at 09:00 Warfarin Sodium (Coumadin Per Physician) 1 each PRN DAILY PRN MC SEE COMMENTS Last administered on 11/13/16 10:53; Start 11/10/16 at 22:00 Insulin Aspart (NovoLOG) 150-200 3 UNITS 201-25... TIDACHC SQ Last administered on 11/13/16t 12:55; Start 11/10/16 at 23:00 Hydromorphone HCl (Dilaudid) 2 mg PRN Q4HRS PRN IV PAIN; Start 11/13/16 at 10: 45; Status UNV Active Scripts Active Reported Calcium 500 + Vit D 200 Tablet (Calcium Carbonate/Vitamin D3) 1 Each Tablet 1 Each PO DAILY Novolog (Insulin Aspart) 100 Unit/1 Ml Cartridge 6 Unit SQ TIDBFRMEAL Novolog Flexpen (Insulin Aspart) 100 Unit/1 Ml Insuln.pen 1 Unit SQ 150-200= 3units 201-250= 6 units 251-300= 9 units 301-350= 12 units 351-400= 15 units 401+= notify MD Nuñezir (Insulin Detemir) 100 Unit/1 Ml Vial 50 Unit SQ QHS NITROGLYCERIN SubLingual (Nitroglycerin) 0.4 Mg Tab.subl 0.4 Mg SL PRN Q5MIN PRN Protonix (Pantoprazole Sodium) 40 Mg Tablet.dr 1 Tab PO DAILY Warfarin Sodium 2 Mg Tablet 1 Tab PO DAILY Metoprolol Tartrate 25 Mg Tablet 1 Tab PO BID Acetaminophen 500 Mg Tablet 500 Mg PO PRN Q8HRS PRN Potassium Chloride 10 Meq Capsule.er 10 Meq PO 3X/WEEK sunday, sunday, sunday Meloxicam 7.5 Mg Tablet 1 Tab PO DAILY Meclizine Hcl 12.5 Mg Tablet 1 Tab PO BID Hydrocodone-Apap 5-325 (Hydrocodone Bit/Acetaminophen) 1 Each Tablet 1 Tab PO Q12HR PRN Spironolactone 25 Mg Tablet 25 Mg PO DAILY Furosemide 80 Mg Tablet 80 Mg PO BID Stool Softener (Docusate Sodium) 100 Mg Capsule 200 Mg PO HS Amlodipine Besylate 10 Mg Tablet 10 Mg PO DAILY hold if sbp less than 100 Losartan Potassium 100 Mg Tablet 50 Mg PO DAILY Atorvastatin Calcium 40 Mg Tablet 40 Mg PO HS Isosorbide Mononitrate Er (Isosorbide Mononitrate) 60 Mg Tab.er.24h 60 Mg PO DAILY Vitamin D-3 (Cholecalciferol (Vitamin D3)) 2,000 Unit Capsule 2,000 Unit PO DAILY Aspirin Ec (Aspirin) 81 Mg Tablet. 325 Mg PO DAILY Vitals/I & O Vital Sign - Last 24 Hours 11/12/16 11/12/16 11/12/16 11/12/16 15:00 19:00 20:00 20:55 Temp 97.6 98.1 97.6 98.1 Pulse 56 68 59 Resp 18 20 B/P (MAP) 110/29 (56) 129/36 (67) 103/45 Pulse Ox 97 96 O2 Delivery Room Air Room Air Room Air 11/12/16 11/13/16 11/13/16 11/13/16 23:30 03:00 04:05 06:22 Temp 98.5 98.4 98.5 98.4 Pulse 56 55 58 Resp 18 22 B/P (MAP) 112/46 (68) 124/53 (76) 165/86 (112) Pulse Ox 97 97 O2 Delivery Room Air Room Air 11/13/16 11/13/16 11/13/16 11/13/16 07:10 08:00 08:39 08:39 Temp 98.5 98.5 Pulse 56 Resp 18 B/P (MAP) 110/48 (68) 110/48 110/48 Pulse Ox 97 O2 Delivery Room Air Room Air 11/13/16 11/13/16 11/13/16 08:40 08:40 11:15 Temp 98.7 98.7 Pulse 56 Resp 18 B/P (MAP) 110/48 110/48 127/59 (81) Pulse Ox 97 O2 Delivery Room Air Intake and Output 11/12/16 11/12/16 11/13/16 15:00 23:00 07:00 Intake Total 540 ml 240 ml 350 ml Output Total 550 ml 900 ml Balance 540 ml -310 ml -550 ml WILLY GURROLA MD Nov 13, 2016 13:20
[2016-11-13 15:10] VITALS: BP 103/48
[2016-11-13] MEDS ORDERED: ASPI325T70 PO (15:43)
[2016-11-13] MEDS: WARFARIN 2 MG TABLET. PO SCH (16:22)
--- NOTE | 2016-11-13 19:47 | PDOC3 ---
Discharge Summary* Date of Admission: Nov 11, 2016 Date of Discharge: Nov 13, 2016 Admitting Diagnosis SBE Problems: Brief Hospital Course Ms. Astorga is a 81 old Lady who presented with progressive fatigue and increasing CRP at the assisted living facility. 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 Pt had been treated with IV antibiotics for 6 weeks. She returned with recurrence of the previous symptoms and was admitted to be evaluated. After admission ID was consulted and cultures and lab tests were done, please see the chart for the results. A repeat echocardiogram was questionable for recurrence of the vegetation and today the report on the blood cultures showed no bacterial growth. ID recommended to discharge the pt and I agree with this. Pt to be followed as an outpatient. The situation, options, follow up, diet, meds, and activity were discussed with the pt and she agrees with discharge. See MRAD for list of meds CONDITION AT DISCHARGE: Improved, Stable Scheduled Amlodipine Besylate (Amlodipine Besylate), 10 MG PO DAILY, (Reported) Aspirin/Calcium Carbonate/Mag (Aspirin Buffered 325 Mg Tab), 325 MG PO DAILY, ( Reported) Atorvastatin Calcium (Atorvastatin Calcium), 40 MG PO HS, (Reported) Calcium Carbonate/Vitamin D3 (Calcium 500 + Vit D 200 Tablet), 1 EACH PO DAILY, (Reported) Cholecalciferol (Vitamin D3) (Vitamin D-3), 2,000 UNIT PO DAILY, (Reported) Docusate Sodium (Stool Softener), 200 MG PO HS, (Reported) Furosemide (Furosemide), 80 MG PO BID, (Reported) Insulin Aspart (Novolog), 6 UNIT SQ TIDBFRMEAL, (Reported) Insulin Detemir (Levemir), 50 UNIT SQ QHS, (Reported) Isosorbide Mononitrate (Isosorbide Mononitrate Er), 60 MG PO DAILY, (Reported) Losartan Potassium (Losartan Potassium), 50 MG PO DAILY, (Reported) Meclizine Hcl (Meclizine Hcl), 1 TAB PO BID, (Reported) Meloxicam (Meloxicam), 1 TAB PO DAILY, (Reported) Metoprolol Tartrate (Metoprolol Tartrate), 1 TAB PO BID, (Reported) Pantoprazole Sodium (Protonix), 1 TAB PO DAILY, (Reported) Potassium Chloride (Potassium Chloride), 10 MEQ PO 3X/WEEK, (Reported) Spironolactone (Spironolactone), 25 MG PO DAILY, (Reported) Warfarin Sodium (Warfarin Sodium), 1 TAB PO DAILY, (Reported) Scheduled PRN Acetaminophen (Acetaminophen), 500 MG PO PRN Q8HRS PRN for PAIN, (Reported) Hydrocodone Bit/Acetaminophen (Hydrocodone-Apap 5-325 ), 1 TAB PO Q12HR PRN for PAIN, (Reported) Nitroglycerin (NITROGLYCERIN SubLingual), 0.4 MG SL PRN Q5MIN PRN for CHEST PAIN , (Reported) Miscellaneous Medications Insulin Aspart (Novolog Flexpen), 1 UNIT SQ, (Reported) Discontinued Medications Aspirin (Aspirin Ec), 325 MG PO DAILY, (Reported) Discontinued Reason: Prescription changed Calcium Citrate/Vitamin D3 (Citracal + D Maximum Caplet), 1 EACH PO DAILY, ( Reported) Clopidogrel Bisulfate (Clopidogrel), 1 TAB PO QODAY, (Reported) Nph, Human Insulin Isophane (Humulin N), 40 UNIT SQ [id number], (Reported) Nph, Human Insulin Isophane (Humulin N), 20 UNIT SQ HS, (Reported) Omeprazole (Omeprazole), 1 CAP PO DAILYAC, (Reported) Time Spent Total time spent with patient [] minutes for coordination of care, counseling, and education. WILLY GURROLA MD Nov 13, 2016 19:47
== END 2016-11-13 18:09 | disposition home or self-care (01) | DRG 948 ==
LOC: 2 SOUTH 18:50
PROVIDERS: ADMIT Internal Medicine Cardiovascular Disease; ATTEND Internal Medicine Cardiovascular Disease
DX: R53.83 Other fatigue (principal); I13.0 Hypertensive heart and chronic kidney disease with heart failure and stage 1 through stage 4 chronic kidney disease, or unspecified chronic kidney disease; I34.0 Nonrheumatic mitral (valve) insufficiency; I27.2 Other secondary pulmonary hypertension; N18.9 Chronic kidney disease, unspecified; I25.10 Atherosclerotic heart disease of native coronary artery without angina pectoris; K21.9 Gastro-esophageal reflux disease without esophagitis; I50.9 Heart failure, unspecified; Z79.899 Other long term (current) drug therapy; Z79.4 Long term (current) use of insulin; Z79.1 Long term (current) use of non-steroidal anti-inflammatories (NSAID); Z79.2 Long term (current) use of antibiotics; E11.22 Type 2 diabetes mellitus with diabetic chronic kidney disease; Z66 Do not resuscitate
CPT/HCPCS: 36415; 71020; 80048; 80053; 82962; 85027; 85610; 85651; 87040; 93306; A6539; J1815; J8597

== ENCOUNTER → 2016-11-10 | Outpatient (CLI) | payer MEDICARE ==
[2016-10-21 17:55] VITALS: BP 134/47
[~2016-11-10] MED LIST changes: +CALC-157 PO; +INSU100C4 SQ; +INSU100I17 SQ; +INSU100V13 SQ; +NITR0.4T22 SL; +PANT40TA3 PO; +WARF3TAB7 PO
[2016-11-10 14:39] LABS: BASO # 0.1 x10^3/uL (0.0-0.2); BASO % 1 % (0-3); EOS % 4 % (0-3); HEMATOCRIT 31.6 % (36.0-47.0); HEMOGLOBIN 10.5 g/dL (12.0-15.5); LYMPH # 2.3 x10^3/uL (1.0-4.8); LYMPH % 23 % (24-48); MEAN CORPUSCULAR HEMOGLOBIN 29 pg (25-35); MEAN CORPUSCULAR HGB CONC 33 g/dL (31-37); MEAN CORPUSCULAR VOLUME 88 fL (79-100); MONO % 9 % (0-9); NEUT % 64 % (31-73); PLATELET COUNT 424 x10^3/uL (140-400); RED BLOOD COUNT 3.59 x10^6/uL (3.50-5.40); RED CELL DISTRIBUTION WIDTH 16.6 % (11.5-14.5); WHITE BLOOD COUNT 10.3 x10^3/uL (4.0-11.0)
--- NOTE | 2016-11-10 14:49 | CARD ---
APPROVED REPORT EXAM: Two-dimensional and M-mode echocardiogram with Doppler and color Doppler. Other Information Quality : GoodHR: 61bpm Rhythm : NSR INDICATION Subacute bacterial endocarditis, Chronic CHF 2D DIMENSIONS RVDd3.3 (2.9-3.5cm)Left Atrium(2D)4.8 (1.6-4.0cm) IVSd1.1 (0.7-1.1cm)Aortic Root(2D)3.0 (2.0-3.7cm) LVDd4.2 (3.9-5.9cm)LVOT Diameter2.0 (1.8-2.4cm) PWd1.2 (0.7-1.1cm)LVDs3.3 (2.5-4.0cm) FS (%) 21.9 %SV35.3 ml LVEF(%)40.0 (>50%) Aortic Valve AoV Peak Amilcar.147.3cm/sAoV VTI32.7cm AO Peak GR.8.7mmHgLVOT Peak Amilcar.92.0cm/s AO Mean GR.5mmHgAVA (VMAX)1.88cm2 AI P 1/2 [id number] Mitral Valve MV E Snaapbop265.8cm/sMV E Peak Gr.4mmHg MV DECEL [id number] A Qdzgodgk04.9cm/s MV E Mean Gr.1mmHgE/A Ratio1.4 MV A [id number] Pulmonary Valve PV Peak Fjhtxodv715.1cm/s Tricuspid Valve TR P. Inrvkczv795io/sTR Peak Gr.39mmHg Pulmonary Vein S1 Hmdrqcvq93.6cm/sD2 Iectqaur86.8cm/s PVa [id number] LEFT VENTRICLE The left ventricle is normal size. There is mild concentric left ventricular hypertrophy. Left ventri urmila systolic function is bellow normal The Ejection Fraction is 40 %. There is mild hypokinesis in th e inferior, posterior and septal chapa at the base levels. The left ventricular diastolic function an d filling is normal for age. No left ventricle thrombus noted on this study. RIGHT VENTRICLE The right ventricle is normal size. There is normal right ventricular wall thickness. The right ventr icular systolic function is normal. ATRIA The left atrium is severely dilated. The right atrium size is normal. The interatrial septum is intac t with no evidence for an atrial septal defect or patent foramen ovale as noted on 2-D or Doppler chris ging. AORTIC VALVE The aortic valve is mildly sclerotic. The aortic valve is trileaflet. Doppler and Color Flow revealed mild aortic regurgitation. There is no significant aortic valvular stenosis. There is no aortic valv ular vegetation at exam time. MITRAL VALVE Mitral annular calcification is moderate. The mitral valve leaflets are calcified. There is no eviden ce of mitral valve prolapse. There is no mitral valve stenosis. Doppler and Color Flow revealed moder ate mitral regurgitation. The jet is anteriorly directed. There is calcifications and thickening of t he anterior leaflet, cannot rule out a vegetation there. This is where the vegetation was at in the p ast and it looks a little thicker than the last echocardiogram. TRICUSPID VALVE Doppler and Color Flow revealed mild tricuspid regurgitation. The pulmonary artery systolic pressure is estimated at 42 mmHg. There is mild pulmonary hypertension. PULMONIC VALVE The pulmonic valve is not well visualized but appears to open well. Doppler and Color Flow revealed m ild pulmonic valvular regurgitation. There is no pulmonic valvular stenosis by spectral Doppler. GREAT VESSELS The aortic root is normal in size. The ascending aorta is normal in size. The pulmonary artery is nor mal. The IVC is normal in size and collapses >50% with inspiration. PERICARDIAL EFFUSION There is no evidence of significant pericardial effusion. Critical Notification Critical Value: No <Conclusion> Left ventricle systolic function is bellow normal The Ejection Fraction is 40 %. There is mild concentric left ventricular hypertrophy. The left atrium is severely dilated. The right atrium size is normal. Doppler and Color Flow revealed mild aortic regurgitation. The aortic valve is mildly sclerotic. The aortic valve is trileaflet. Mitral annular calcification is moderate. The mitral valve leaflets are calcified. Doppler and Color Flow revealed moderate mitral regurgitation. The jet is anteriorly directed. There is calcifications and thickening of the anterior leaflet, cannot rule out a vegetation there. This i s where the vegetation was at in the past and it looks a little thicker than the last echocardiogram. Doppler and Color Flow revealed mild tricuspid regurgitation. The pulmonary artery systolic pressure is estimated at 42 mmHg. There is mild pulmonary hypertension. The pulmonic valve is not well visualized but appears to open well. Doppler and Color Flow revealed mild pulmonic valvular regurgitation. There is no pulmonic valvular stenosis by spectral Doppler. There is no evidence of significant pericardial effusion.
[2016-11-10 14:51] LABS: ALBUMIN 2.8 g/dL (3.4-5.0); ALBUMIN/GLOBULIN RATIO 0.5 (1.0-1.7); CALCIUM 9.8 mg/dL (8.5-10.1); CREATININE 1.4 mg/dL (0.6-1.0); GFR 36.2; POTASSIUM 4.3 mmol/L (3.5-5.1); TOTAL BILIRUBIN 0.2 mg/dL (0.2-1.0); TOTAL PROTEIN 8.2 g/dL (6.4-8.2)
== END | disposition home or self-care (01) ==
LOC: ECHO 13:03
PROVIDERS: ATTEND Internal Medicine Cardiovascular Disease
DX: I08.3 Combined rheumatic disorders of mitral, aortic and tricuspid valves (principal); I27.2 Other secondary pulmonary hypertension; I31.3 Pericardial effusion (noninflammatory); I33.0 Acute and subacute infective endocarditis; I50.9 Heart failure, unspecified
CPT/HCPCS: 36415; 80053; 85027; 85651; 87040; 93306

== ENCOUNTER 2016-12-28 12:49 | Inpatient (IN) | payer MEDICARE ==
[~2016-12-28] VITALS: Ht 154.9 cm; Wt 81.3 kg
[~2016-12-28 12:49] MED LIST changes: +ASPI325T70 PO; +CALC-157 PO; +INSU100C4 SQ; +INSU100I17 SQ; +INSU100V13 SQ; +NITR0.4T22 SL; +PANT40TA3 PO
--- NOTE | 2016-12-28 14:07 | PHYS DOC ---
Past Medical History Past Medical History: CAD, Cancer, CHF, Diabetes-Type II, GERD, Hypertension, ID, Other Additional Past Medical Histor: menieres, breast cancer - L lumpectomy, cellulitis - BLE, Past Surgical History: Appendectomy, Cholecystectomy, Hysterectomy, Knee Replacement, Tonsillectomy, Other Additional Past Surgical Histo: lumpectomy in left breast, 2 CARDIAC STENTS AND 3 BALLOONS Alcohol Use: None Drug Use: None Adult General Chief Complaint Chief Complaint: HYPERGLYCEMIA HPI HPI Patient is a 81 year old female who presents with hyperglycemia. She states she's has a urinary tract infection was diagnosed recently is on Levaquin for. She states that she's been filling worse in her sugars and binges getting higher and higher. She denies any fevers chills nausea or vomiting currently. She does have a history of mitral valve endocarditis and follows with Dr. Carlos regarding this. Review of Systems Review of Systems Constitutional: Denies fever or chills [] Eyes: Denies change in visual acuity, redness, or eye pain [] HENT: Denies nasal congestion or sore throat [] Respiratory: Denies cough or shortness of breath [] Cardiovascular: No additional information not addressed in HPI [] GI: Denies abdominal pain, nausea, vomiting, bloody stools or diarrhea [] : Denies dysuria or hematuria [] Musculoskeletal: Denies back pain or joint pain [] Integument: Denies rash or skin lesions [] Neurologic: Denies headache, focal weakness or sensory changes [] Endocrine: Denies polyuria or polydipsia [] Current Medications Current Medications Current Medications Medications (Trade) Dose Ordered Sig/Huyen Start Time Stop Time Status Last Admin Dose Admin Ceftriaxone Sodium 50 ml @ 100 mls/hr 1X ONCE 12/28/16 15:15 12/28/16 15:44 DC 12/28/16 15:29 100 MLS/HR Dextrose (Dextrose 50%-Water Syringe) 12.5 gm PRN Q15MIN PRN 12/28/16 15:30 Allergies Allergies Allergies Coded Allergies Type Severity Reaction Last Updated Verified Iodinated Contrast- Oral and IV Dye Allergy Severe Anaphylaxis 03/18/16 Yes adhesive tape Allergy Intermediate 03/19/16 Yes meperidine Adverse Reaction Intermediate Vomiting 04/19/16 Yes Physical Exam Physical Exam Constitutional: Well developed, well nourished, no acute distress, non-toxic appearance. [] HENT: Normocephalic, atraumatic, bilateral external ears normal, oropharynx moist, no oral exudates, nose normal. [] Eyes: PERRLA, EOMI, conjunctiva normal, no discharge. [] Neck: Normal range of motion, no tenderness, supple, no stridor. [] Cardiovascular:Heart rate regular rhythm, no murmur [] Lungs & Thorax: Bilateral breath sounds clear to auscultation [] Abdomen: Bowel sounds normal, soft, no tenderness, no masses, no pulsatile masses. [] Skin: Warm, dry, no erythema, no rash. [] Back: No tenderness, no CVA tenderness. [] Extremities: No tenderness, no cyanosis, no clubbing, ROM intact, no edema. [] Neurologic: Alert and oriented X 3, normal motor function, normal sensory function, no focal deficits noted. [] Psychologic: Affect normal, judgement normal, mood normal. [] Current Patient Data Vital Signs Vital Signs Date Time Temp Pulse Resp B/P (MAP) Pulse Ox O2 Delivery O2 Flow Rate FiO2 12/28/16 15:16 54 128/78 (95) 97 Room Air 12/28/16 13:46 20 12/28/16 13:13 98.0 98.0 Lab Values Laboratory Tests Test 12/28/16 13:55 12/28/16 14:24 White Blood Count 6.8 x10^3/uL (4.0-11.0) Red Blood Count 3.59 x10^6/uL (3.50-5.40) Hemoglobin 10.2 g/dL (12.0-15.5) L Hematocrit 31.1 % (36.0-47.0) L Mean Corpuscular Volume 87 fL (79-100) Mean Corpuscular Hemoglobin 29 pg (25-35) Mean Corpuscular Hemoglobin Concent 33 g/dL (31-37) Red Cell Distribution Width 16.7 % (11.5-14.5) H Platelet Count 330 x10^3/uL (140-400) Neutrophils (%) (Auto) 73 % (31-73) Lymphocytes (%) (Auto) 16 % (24-48) L Monocytes (%) (Auto) 7 % (0-9) Eosinophils (%) (Auto) 3 % (0-3) Basophils (%) (Auto) 0 % (0-3) Neutrophils # (Auto) 5.0 x10^3uL (1.8-7.7) Lymphocytes # (Auto) 1.1 x10^3/uL (1.0-4.8) Monocytes # (Auto) 0.5 x10^3/uL (0.0-1.1) Eosinophils # (Auto) 0.2 x10^3/uL (0.0-0.7) Basophils # (Auto) 0.0 x10^3/uL (0.0-0.2) Prothrombin Time 24.9 SEC (11.7-14.0) H Prothrombin Time INR 2.4 (0.8-1.1) H Sodium Level 129 mmol/L (136-145) L Potassium Level 5.2 mmol/L (3.5-5.1) H Chloride Level 93 mmol/L (98-107) L Carbon Dioxide Level 31 mmol/L (21-32) Anion Gap 5 (6-14) L Blood Urea Nitrogen 67 mg/dL (7-20) H Creatinine 2.0 mg/dL (0.6-1.0) H Estimated GFR (Cockcroft-Gault) 24.0 Glucose Level 636 mg/dL (70-99) *H Calcium Level 10.3 mg/dL (8.5-10.1) H Magnesium Level 2.3 mg/dL (1.8-2.4) Total Bilirubin 0.3 mg/dL (0.2-1.0) Direct Bilirubin 0.1 mg/dL (0.0-0.2) Aspartate Amino Transferase (AST) 11 U/L (15-37) L Alanine Aminotransferase (ALT) 18 U/L (14-59) Alkaline Phosphatase 148 U/L (46-116) H Creatine Kinase 22 U/L (26-192) L Creatine Kinase MB (Mass) 0.9 ng/mL (0.0-3.6) Creatine Kinase MB Relative Index 4.1 % (0-4) H Troponin I Quantitative 0.022 ng/mL (0.000-0.055) ZI-Anz-Z-Type Natriuretic Peptide 3568 pg/mL (0-449) H Total Protein 8.3 g/dL (6.4-8.2) H Albumin 2.7 g/dL (3.4-5.0) L Lipase 97 U/L (73-393) Thyroid Stimulating Hormone (TSH) 3.068 uIU/mL (0.358-3.74) Urine Collection Type Unknown Urine Color Yellow Urine Clarity Clear Urine pH 6.5 Urine Specific [place] 1.010 Urine Protein Negative mg/dL (NEG-TRACE) Urine Glucose (UA) >=1000 mg/dL (NEG) Urine Ketones (Stick) Negative mg/dL (NEG) Urine Blood Negative (NEG) Urine Nitrite Negative (NEG) Urine Bilirubin Negative (NEG) Urine Urobilinogen Dipstick 0.2 mg/dL (0.2 mg/dL) Urine Leukocyte Esterase Trace (NEG) Urine RBC Occ /HPF (0-2) Urine WBC 1-4 /HPF (0-4) Urine Squamous Epithelial Cells Mod /LPF Urine Bacteria Few /HPF (0-FEW) Urine Hyaline Casts Moderate /HPF Laboratory Tests 12/28/16 13:55 Laboratory Tests 12/28/16 13:55 EKG EKG EKG shows sinus rhythm with rate of 56 bpm with left axis deviation, T-wave inversions noted in leads 1 and aVL, T-wave inversions in V6, QTC 408 ms, as interpreted by me. EKG similar to one performed on October 18, 2016. Radiology/Procedures Radiology/Procedures [] Impressions: Hyperglycemia UTI Pseudohyponatremia Acute on chronic renal failure Course & Med Decision Making Course & Med Decision Making Pertinent Labs and Imaging studies reviewed. (See chart for details) Patient has slightly elevated potassium and hyponatremia which is likely secondary to her hyperglycemia that sugars in the 600s. She receives 10 units subcutaneous of NovoLog and was placed on sliding scale. She's being admitted to Dr. Fairchild with Dr. Carlos as consultation. Patient was also started on Rocephin for UTI. Since that she's been on Levaquin which has not been working effectively. Interim orders have been written patient's in stable condition. Dragon Disclaimer Dragon Disclaimer This electronic medical record was generated, in whole or in part, using a voice recognition dictation system. Departure Departure Impression: Primary Impression: Hyperglycemia Additional Impression: UTI (urinary tract infection) Disposition: ADMITTED INPATIENT Admitting Physician: Raza Fairchild Condition: STABLE Referrals: WILLY GURROLA MD (PCP) Problem Qualifiers Additional Impression: UTI (urinary tract infection) Urinary tract infection type: acute cystitis Hematuria presence: with hematuria Qualified Codes: N30.01 - Acute cystitis with hematuria SAMANTHA BUTLER MD Dec 28, 2016 14:07
[2016-12-28 14:12] LABS: BASO % 0 % (0-3); EOS % 3 % (0-3); HEMATOCRIT 31.1 % (36.0-47.0); HEMOGLOBIN 10.2 g/dL (12.0-15.5); LYMPH # 1.1 x10^3/uL (1.0-4.8); LYMPH % 16 % (24-48); MEAN CORPUSCULAR HEMOGLOBIN 29 pg (25-35); MEAN CORPUSCULAR HGB CONC 33 g/dL (31-37); MEAN CORPUSCULAR VOLUME 87 fL (79-100); MONO % 7 % (0-9); NEUT % 73 % (31-73); PLATELET COUNT 330 x10^3/uL (140-400); RED BLOOD COUNT 3.59 x10^6/uL (3.50-5.40); RED CELL DISTRIBUTION WIDTH 16.7 % (11.5-14.5); WHITE BLOOD COUNT 6.8 x10^3/uL (4.0-11.0)
[2016-12-28 14:23] LABS: INR 2.4 (0.8-1.1); PROTHROMBIN TIME PATIENT 24.9 SEC (11.7-14.0)
[2016-12-28 14:31] LABS: BILIRUBIN,URINE NEGATIVE (NEG); GLUCOSE,URINE >=1000 mg/dL (NEG); NITRITE,URINE NEGATIVE (NEG); PH,URINE 6.5; PROTEIN,URINE NEGATIVE (NEG-TRACE); UROBILINOGEN,URINE 0.2 mg/dL (0.2 mg/dL)
[2016-12-28 14:36] LABS: BACTERIA,URINE FEW /HPF (0-FEW); RBC,URINE OCC /HPF (0-2); SQUAMOUS EPITHELIAL CELL,UR MOD /LPF
[2016-12-28 14:37] LABS: ALBUMIN 2.7 g/dL (3.4-5.0); CALCIUM 10.3 mg/dL (8.5-10.1); DIRECT BILIRUBIN 0.1 mg/dL (0.0-0.2); MAGNESIUM 2.3 mg/dL (1.8-2.4); POTASSIUM 5.2 mmol/L (3.5-5.1); TOTAL BILIRUBIN 0.3 mg/dL (0.2-1.0); TOTAL PROTEIN 8.3 g/dL (6.4-8.2)
[2016-12-28 14:39] LABS: CKMB MASS 0.9 ng/mL (0.0-3.6)
[2016-12-28] MEDS ORDERED: DEXTROSE 50% 25 GM / 50ML DISP.SYRIN. IV PRN (15:30)
[2016-12-28] MEDS ORDERED: IV NORMAL SALINE 1000ML BAG 1,000 ML IV ONE (15:45)
--- NOTE | 2016-12-28 15:53 | EKG ---
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
[2016-12-28] MEDS ORDERED: ONDANSETRON PF 4 MG/2 ML VIAL. IV PRN (16:30)
[2016-12-28] MEDS: INSULIN ASPART 300 UNITS/3 ML INSULN.PEN SQ SCH (17:00)
[2016-12-28] MEDS ORDERED: INSULIN ASPART 300 UNITS/3 ML INSULN.PEN SQ ONE ×2 (17:15→19:15)
[2016-12-28] MEDS ORDERED: ASPI325T8 PO (19:22)
[2016-12-28] MEDS ORDERED: LEVO500T59 PO (19:41)
[2016-12-28] MEDS ORDERED: WARF4TAB68 PO ×2 (19:41)
[2016-12-28] MEDS ORDERED: NITROGLYCERIN SUBLINGUAL 0.4 MG BOTTLE OF 25. SL PRN (20:00)
[2016-12-28 20:25] VITALS: BP 122/40
[2016-12-28] MEDS: HYDROcodone/APAP 5/325MG 1 TAB TABLET PO PRN (20:30)
[2016-12-28] MEDS: MECLIZINE HCL 12.5 MG TABLET. PO SCH (21:11)
[2016-12-28] MEDS: DOCUSATE SODIUM 100 MG CAPSULE. PO SCH (21:12)
[2016-12-28] MEDS: ATORVASTATIN CALCIUM 40 MG TABLET. PO SCH (21:12)
[2016-12-28] MEDS: METOPROLOL TART IMMED RELEASE 25 MG TABLET. PO SCH (21:15)
[2016-12-28] MEDS ORDERED: WARFARIN 4 MG TABLET. PO ONE (21:29)
--- NOTE | 2016-12-28 22:18 | HP ---
ADMIT DATE: 12/28/2016 CHIEF COMPLAINT: Hyperglycemia. HISTORY OF PRESENT ILLNESS: The patient is a pleasant 81-year-old female well known to our service. At this time, she presents with hyperglycemia. Her sugars are in the 600 range. Her anion gap is surprisingly normal at 5. I have discussed the case with the ER physician. We are going to admit the patient with sliding scale insulin and fluids. PAST MEDICAL HISTORY: CAD, cancer, CHF, Meniere's, diabetes, breast cancer, lumpectomy, GERD, hypertension, cholecystectomy, hysterectomy, knee replacement, tonsillectomy, 2 cardiac stents. ALLERGIES: IODINE AND ADHESIVE AND MEPERIDINE. FAMILY HISTORY: Coronary artery disease. SOCIAL HISTORY: She does not drink, smoke or take drugs. MEDICATIONS: Reviewed, please refer to the MRAD. REVIEW OF SYSTEMS: GENERAL: No history of weight change or fevers. She complains of hyperglycemia and weakness. SKIN: No bruising, hair changes or rashes. EYES: No blurred, double or loss of vision. NOSE AND THROAT: No history of nosebleeds, hoarseness or sore throat. HEART: No history of palpitations, chest pain or shortness of breath on exertion. LUNGS: Denies cough, hemoptysis, wheezing or shortness of breath. GASTROINTESTINAL: Denies changes in appetite, nausea, vomiting, diarrhea or constipation. GENITOURINARY: No history of frequency, urgency, hesitancy or nocturia. NEUROLOGIC: Denies history of numbness, tingling, tremor or weakness. PSYCHIATRIC: No history of panic, anxiety or depression. ENDOCRINE: No history of heat or cold intolerance, polyuria or polydipsia. EXTREMITIES: Denies muscle weakness, joint pain, pain on walking or stiffness. PHYSICAL EXAMINATION: VITAL SIGNS: Temperature afebrile, pulse 98, respirations 16, blood pressure 139/80. GENERAL: She is alert, weak. HEART: Normal S1, S2. LUNGS: Clear. ABDOMEN: Soft. EXTREMITIES: No edema. SKIN: No rashes. PSYCHIATRIC: She is anxious. VASCULAR: Good capillary refill. ENDOCRINE: No thyromegaly. LYMPHATICS: No cervical nodes. HEMATOPOIETIC: No bruising. ASSESSMENT AND PLAN: Hyperglycemic hyperosmolar state. The patient has been admitted. We will give her IV fluids and subcutaneous insulin sliding scale. Continue home medicines, physical therapy, occupational therapy. HERVEL Sukhi BUSTILLOS DO DR: Laron JOB#: [id number] / [id number]
[2016-12-28 22:37] VITALS: BP 114/61
[2016-12-29 02:53] VITALS: BP 131/44
[2016-12-29 07:00] VITALS: BP 169/47
[2016-12-29] MEDS: PANTOPRAZOLE 40 MG TABLET.DR. PO SCH (07:59)
[2016-12-29] MEDS: ASPIRIN 325 MG TABLET PO SCH (07:59)
[2016-12-29] MEDS: INSULIN ASPART 300 UNITS/3 ML INSULN.PEN SQ SCH ×5 (08:08→20:52)
[2016-12-29] MEDS ORDERED: INSULIN ASPART 300 UNITS/3 ML INSULN.PEN SQ ONE ×3 (08:30→21:00)
[2016-12-29] MEDS: ISOSORBIDE MONONITRATE ER 30 MG TAB.ER.24H PO SCH (08:44)
[2016-12-29] MEDS: LOSARTAN POTASSIUM 50 MG TABLET. PO SCH (08:45)
[2016-12-29] MEDS: CALCIUM CARB/VIT D3 500/200 TABLET. PO SCH (08:45)
[2016-12-29] MEDS: METOPROLOL TART IMMED RELEASE 25 MG TABLET. PO SCH ×2 (08:45→20:31)
[2016-12-29] MEDS: MECLIZINE HCL 12.5 MG TABLET. PO SCH ×2 (08:46→20:31)
[2016-12-29] MEDS: amLODIPine BESYLATE 10 MG TABLET PO SCH (08:46)
[2016-12-29] MEDS: SPIRONOLACTONE 25 MG TABLET PO SCH (08:46)
[2016-12-29 08:51] LABS: BASO # 0.1 x10^3/uL (0.0-0.2); BASO % 1 % (0-3); EOS % 4 % (0-3); HEMATOCRIT 31.5 % (36.0-47.0); HEMOGLOBIN 10.9 g/dL (12.0-15.5); LYMPH # 1.4 x10^3/uL (1.0-4.8); LYMPH % 18 % (24-48); MEAN CORPUSCULAR HEMOGLOBIN 29 pg (25-35); MEAN CORPUSCULAR HGB CONC 35 g/dL (31-37); MEAN CORPUSCULAR VOLUME 85 fL (79-100); MONO % 6 % (0-9); NEUT % 71 % (31-73); PLATELET COUNT 345 x10^3/uL (140-400); RED BLOOD COUNT 3.71 x10^6/uL (3.50-5.40); RED CELL DISTRIBUTION WIDTH 16.8 % (11.5-14.5)
[2016-12-29 09:00] LABS: INR 2.4 (0.8-1.1); PROTHROMBIN TIME PATIENT 24.9 SEC (11.7-14.0)
[2016-12-29] MEDS ORDERED: MELOXICAM 7.5 MG TABLET PO SCH (09:00)
[2016-12-29] MEDS: FUROSEMIDE 80 MG TABLET. PO SCH ×2 (09:00→13:26)
[2016-12-29 09:05] LABS: CALCIUM 9.6 mg/dL (8.5-10.1); CREATININE 1.6 mg/dL (0.6-1.0); POTASSIUM 5.1 mmol/L (3.5-5.1)
--- NOTE | 2016-12-29 09:51 | PDOC ---
Infectious Disease Note Vital Sign Vital Signs Vital Signs Date Time Temp Pulse Resp B/P (MAP) Pulse Ox O2 Delivery O2 Flow Rate FiO2 12/29/16 08:46 64 169/47 12/29/16 07:00 97.3 18 96 Room Air 97.3 12/28/16 21:30 97.0 Labs Lab Laboratory Tests Test 12/28/16 13:55 12/28/16 14:24 12/28/16 18:53 12/28/16 18:55 White Blood Count 6.8 x10^3/uL (4.0-11.0) Red Blood Count 3.59 x10^6/uL (3.50-5.40) Hemoglobin 10.2 g/dL (12.0-15.5) Hematocrit 31.1 % (36.0-47.0) Mean Corpuscular Volume 87 fL (79-100) Mean Corpuscular Hemoglobin 29 pg (25-35) Mean Corpuscular Hemoglobin Concent 33 g/dL (31-37) Red Cell Distribution Width 16.7 % (11.5-14.5) Platelet Count 330 x10^3/uL (140-400) Neutrophils (%) (Auto) 73 % (31-73) Lymphocytes (%) (Auto) 16 % (24-48) Monocytes (%) (Auto) 7 % (0-9) Eosinophils (%) (Auto) 3 % (0-3) Basophils (%) (Auto) 0 % (0-3) Neutrophils # (Auto) 5.0 x10^3uL (1.8-7.7) Lymphocytes # (Auto) 1.1 x10^3/uL (1.0-4.8) Monocytes # (Auto) 0.5 x10^3/uL (0.0-1.1) Eosinophils # (Auto) 0.2 x10^3/uL (0.0-0.7) Basophils # (Auto) 0.0 x10^3/uL (0.0-0.2) Prothrombin Time 24.9 SEC (11.7-14.0) Prothromb Time International Ratio 2.4 (0.8-1.1) Sodium Level 129 mmol/L (136-145) Potassium Level 5.2 mmol/L (3.5-5.1) Chloride Level 93 mmol/L (98-107) Carbon Dioxide Level 31 mmol/L (21-32) Anion Gap 5 (6-14) Blood Urea Nitrogen 67 mg/dL (7-20) Creatinine 2.0 mg/dL (0.6-1.0) Estimated GFR (Cockcroft-Gault) 24.0 Glucose Level 636 mg/dL (70-99) 592 mg/dL (70-99) Calcium Level 10.3 mg/dL (8.5-10.1) Magnesium Level 2.3 mg/dL (1.8-2.4) Total Bilirubin 0.3 mg/dL (0.2-1.0) Direct Bilirubin 0.1 mg/dL (0.0-0.2) Aspartate Amino Transf (AST/SGOT) 11 U/L (15-37) Alanine Aminotransferase (ALT/SGPT) 18 U/L (14-59) Alkaline Phosphatase 148 U/L (46-116) Creatine Kinase 22 U/L (26-192) Creatine Kinase MB (Mass) 0.9 ng/mL (0.0-3.6) Creatine Kinase MB Relative Index 4.1 % (0-4) Troponin I Quantitative 0.022 ng/mL (0.000-0.055) LX-Jcy-M-Type Natriuretic Peptide 3568 pg/mL (0-449) Total Protein 8.3 g/dL (6.4-8.2) Albumin 2.7 g/dL (3.4-5.0) Lipase 97 U/L (73-393) Thyroid Stimulating Hormone (TSH) 3.068 uIU/mL (0.358-3.74) Urine Collection Type Unknown Urine Color Yellow Urine Clarity Clear Urine pH 6.5 Urine Specific [place] 1.010 Urine Protein Negative mg/dL (NEG-TRACE) Urine Glucose (UA) >=1000 mg/dL (NEG) Urine Ketones (Stick) Negative mg/dL (NEG) Urine Blood Negative (NEG) Urine Nitrite Negative (NEG) Urine Bilirubin Negative (NEG) Urine Urobilinogen Dipstick 0.2 mg/dL (0.2 mg/dL) Urine Leukocyte Esterase Trace (NEG) Urine RBC Occ /HPF (0-2) Urine WBC 1-4 /HPF (0-4) Urine Squamous Epithelial Cells Mod /LPF Urine Bacteria Few /HPF (0-FEW) Urine Hyaline Casts Moderate /HPF Glucose (Fingerstick) 591 mg/dL (70-99) Test 12/28/16 20:32 12/28/16 21:12 12/28/16 22:05 12/29/16 01:13 Glucose (Fingerstick) 465 mg/dL (70-99) 433 mg/dL (70-99) 287 mg/dL (70-99) Troponin I Quantitative 0.024 ng/mL (0.000-0.055) Test 12/29/16 07:47 12/29/16 08:00 Glucose (Fingerstick) 395 mg/dL (70-99) White Blood Count 8.0 x10^3/uL (4.0-11.0) Red Blood Count 3.71 x10^6/uL (3.50-5.40) Hemoglobin 10.9 g/dL (12.0-15.5) Hematocrit 31.5 % (36.0-47.0) Mean Corpuscular Volume 85 fL (79-100) Mean Corpuscular Hemoglobin 29 pg (25-35) Mean Corpuscular Hemoglobin Concent 35 g/dL (31-37) Red Cell Distribution Width 16.8 % (11.5-14.5) Platelet Count 345 x10^3/uL (140-400) Neutrophils (%) (Auto) 71 % (31-73) Lymphocytes (%) (Auto) 18 % (24-48) Monocytes (%) (Auto) 6 % (0-9) Eosinophils (%) (Auto) 4 % (0-3) Basophils (%) (Auto) 1 % (0-3) Neutrophils # (Auto) 5.7 x10^3uL (1.8-7.7) Lymphocytes # (Auto) 1.4 x10^3/uL (1.0-4.8) Monocytes # (Auto) 0.5 x10^3/uL (0.0-1.1) Eosinophils # (Auto) 0.4 x10^3/uL (0.0-0.7) Basophils # (Auto) 0.1 x10^3/uL (0.0-0.2) Prothrombin Time 24.9 SEC (11.7-14.0) Prothromb Time International Ratio 2.4 (0.8-1.1) Sodium Level 132 mmol/L (136-145) Potassium Level 5.1 mmol/L (3.5-5.1) Chloride Level 94 mmol/L (98-107) Carbon Dioxide Level 31 mmol/L (21-32) Anion Gap 7 (6-14) Blood Urea Nitrogen 58 mg/dL (7-20) Creatinine 1.6 mg/dL (0.6-1.0) Estimated GFR (Cockcroft-Gault) 31.0 Glucose Level 373 mg/dL (70-99) Calcium Level 9.6 mg/dL (8.5-10.1) Troponin I Quantitative < 0.017 ng/mL (0.000-0.055) Objective Assessment Hyperglycemia Renal insufficiency H/O Endocarditis in apr 2016, no evidence for recurrence Plan Plan of Care d/c antibiotics no need for any further work up for endocarditis does not have UTI ERINN BARRIOS MD Dec 29, 2016 09:51
[2016-12-29 11:00] VITALS: BP 116/43
--- NOTE | 2016-12-29 11:52 | PDOC2 ---
CONSULT Date of Consult Date of Consult DATE: 12/29/16 TIME: 11:46 Reason for Consult Reason for Consult: GRACIELA Referring Physician Referring Physician: APOLLO Identification/Chief Complaint Chief Complaint WEAKNESS Problems: Source Source: Chart review, Patient History of Present Illness Reason for Visit: THIS IS A VERY PLEASANT 81 YR OLD ADMITTED WITH HIGH BLOOD SUGARS. HER BG WAS 636. CR WAS 2.0. SHE STATES BS HAS BEEN OUT OF CONTROL SINCE HER RECENT DX OF AN UTI FOR WHICH SHE HAD BEEN PLACED ON LEVAQUIN. SHE HAS CKD STAGE 3 WITH BASELINE CR OF ABOUT 1.2-1.5. HX NOTABLE FOR HTN AND DM II Past Medical History Cardiovascular: CAD, CHF, HTN, GA, Valve insufficiency, Pulmonary hypertension , Other GI: GERD, Gastritis Heme/Onc: Cancer Renal/: Chronic renal insuff Endocrine: Diabetes Past Surgical History Past Surgical History: Pacemaker, Other Family History Family History: No Significant, Diabetes, Hypertension Social History ALCOHOL: none Drugs: None Lives: with Family Current Problem List Problem List Problems Medical Problems: (1) UTI (urinary tract infection) Status: Acute Current Medications Current Medications Current Medications Ceftriaxone Sodium 50 ml @ 100 mls/hr 1X ONCE IV Last administered on 15:29; Start 12/28/16 at 15:15; Stop 12/28/16 at 15:44; Status DC Insulin Aspart (NovoLOG) 0-7 UNITS TIDWMEALS SQ Last administered on 12/29/16 08:08; Start 12/28/16 at 17:00 Dextrose (Dextrose 50%-Water Syringe) 12.5 gm PRN Q15MIN PRN IV SEE COMMENTS; Start 12/28/16 at 15:30 Sodium Chloride 1,000 ml @ 1,000 mls/hr 1X ONCE IV Last administered on 15:48; Start 12/28/16 at 15:45; Stop 12/28/16 at 16:44; Status DC Ondansetron HCl (Zofran) 4 mg PRN Q8HRS PRN IV NAUSEA/VOMITING; Start 12/28/16 at 16:30; Stop 12/29/16 at 16:29 Insulin Aspart (NovoLOG) 10 units 1X ONCE SQ Last administered on 12/28/16 17 :35; Start 12/28/16 at 17:15; Stop 12/28/16 at 17:16; Status DC Insulin Aspart (NovoLOG) 10 units 1X ONCE SQ Last administered on 12/28/16 19 :24; Start 12/28/16 at 19:15; Stop 12/28/16 at 19:16; Status DC Acetaminophen (Tylenol) 500 mg PRN Q8HRS PRN PO PAIN; Start 12/28/16 at 20:00 Amlodipine Besylate (Norvasc) 10 mg DAILY PO Last administered on 12/29/16 08: 46; Start 12/29/16 at 09:00 Aspirin (Derek Aspirin) 325 mg [id number] PO Last administered on 12/29/16 07: 59; Start 12/29/16 at 08:00 Atorvastatin Calcium (Lipitor) 40 mg HS PO Last administered on 12/28/16 21:12 ; Start 12/28/16 at 21:00 Calcium/Vitamin D (Oscal D 500mg/ 200uts) 1 tab DAILY PO Last administered on 08:45; Start 12/29/16 at 09:00 Docusate Sodium (Colace) 200 mg HS PO Last administered on 12/28/16 21:12; Start 12/28/16 at 21:00 Furosemide (Lasix) 80 mg BID92 PO Last administered on 12/29/16 09:00; Start 12/29/16 at 09:00 Acetaminophen/ Hydrocodone Bitart (Lortab 5/325) 1 tab Q12HR PRN PO PAIN Last administered on 12/28/16 20:30; Start 12/28/16 at 20:00 Meclizine HCl (Antivert) 12.5 mg BID PO Last administered on 12/29/16 08:46; Start 12/28/16 at 21:00 Meloxicam (Mobic) 7.5 mg DAILY PO Last administered on 12/29/16 08:45; Start 12/29/16 at 09:00 Metoprolol Tartrate (Lopressor) 25 mg BID PO Last administered on 12/29/16 08: 45; Start 12/28/16 at 21:00 Nitroglycerin (Nitrostat) 0.4 mg PRN Q5MIN PRN SL CHEST PAIN; Start 12/28/16 at 20:00 Pantoprazole Sodium (Protonix) 40 mg DAILYAC PO Last administered on 12/29/16 07:59; Start 12/29/16 at 07:30 Spironolactone (Aldactone) 25 mg DAILY PO Last administered on 12/29/16 08:46 ; Start 12/29/16 at 09:00 Warfarin Sodium (Coumadin) 4 mg QM-F PO ; Start 12/29/16 at 16:00 Warfarin Sodium (Coumadin) 4 mg QSA PO ; Start 12/30/16 at 16:00 Isosorbide Mononitrate (Imdur) 60 mg DAILY PO Last administered on 12/29/16 08 :44; Start 12/29/16 at 09:00 Losartan Potassium (Cozaar) 50 mg DAILY PO Last administered on 12/29/16 08:45 ; Start 12/29/16 at 09:00 Levofloxacin (Levaquin) 250 mg DAILY06 PO Last administered on 12/29/16 06:30 ; Start 12/29/16 at 06:00; Stop 12/29/16 at 09:49; Status DC Warfarin Sodium (Coumadin Per Pharmacy) 1 each PRN DAILY PRN MC SEE COMMENTS; Start 12/28/16 at 20:45 Warfarin Sodium (Coumadin) 4 mg 1X WARF ONCE PO Last administered on 22:33; Start 12/28/16 at 21:29; Stop 12/28/16 at 21:30; Status DC Insulin Aspart (NovoLOG) 5 units 1X ONCE SQ Last administered on 12/29/16 08: 51; Start 12/29/16 at 08:30; Stop 12/29/16 at 08:31; Status DC Insulin Human Regular (NovoLIN R VIAL) 10 unit 1X ONCE IV ; Start 12/29/16 at 12:15; Stop 12/29/16 at 12:16 Active Scripts Active Reported Levaquin (Levofloxacin) 500 Mg Tablet 250 Mg PO DAILY for 14 days order started 12/22/16 Coumadin (Warfarin Sodium) 4 Mg Tablet 1 Tab PO QSA Coumadin (Warfarin Sodium) 4 Mg Tablet 1 Tab PO QM-F fr Mon til Sat Aspirin 325 Mg Tablet 1 Tab PO DAILY Calcium 500 + Vit D 200 Tablet (Calcium Carbonate/Vitamin D3) 1 Each Tablet 1 Each PO DAILY TAKE NEXT DOSE TOMORROW 11/14 IN AM Novolog Flexpen (Insulin Aspart) 100 Unit/1 Ml Insuln.pen 1 Unit SQ 150-200= 4 units 201-250= 7 units 251-300= 10 units 301-350= 13 units 351-400= 16 units 401-450= 18 units 451-500= 20 units 501-550= 22 units notify if bg < 110 NITROGLYCERIN SubLingual (Nitroglycerin) 0.4 Mg Tab.subl 0.4 Mg SL PRN Q5MIN PRN Protonix (Pantoprazole Sodium) 40 Mg Tablet.dr 1 Tab PO DAILY TAKE NEXT DOSE TOMORROW 11/14 IN AM Metoprolol Tartrate 25 Mg Tablet 1 Tab PO BID TAKE NEXT DOSE TONIGHT 710 AT BEDTIME Acetaminophen 500 Mg Tablet 500 Mg PO PRN Q8HRS PRN Potassium Chloride 10 Meq Capsule.er 10 Meq PO DAILY Meloxicam 7.5 Mg Tablet 1 Tab PO DAILY TAKE NEXT DOSE TOMORROW 11/14 IN AM Meclizine Hcl 12.5 Mg Tablet 1 Tab PO BID TAKE NEXT DOSE TONIGHT 07 AT BEDTIME Hydrocodone-Apap 5-325 (Hydrocodone Bit/Acetaminophen) 1 Each Tablet 1 Tab PO Q12HR PRN Spironolactone 25 Mg Tablet 25 Mg PO DAILY TAKE NEXT DOSE TOMORROW 11/14 IN AM Furosemide 80 Mg Tablet 80 Mg PO BID TAKE NEXT DOSE TOMORROW 11/14 IN AM Stool Softener (Docusate Sodium) 100 Mg Capsule 200 Mg PO HS TAKE NEXT DOSE TONIGHT 07 AT BEDTIME Amlodipine Besylate 10 Mg Tablet 10 Mg PO DAILY TAKE NEXT DOSE TOMORROW 11/14 IN AM hold if sbp less than 100 Losartan Potassium 100 Mg Tablet 50 Mg PO DAILY TAKE NEXT DOSE TOMORROW 11/14 IN AM Atorvastatin Calcium 40 Mg Tablet 40 Mg PO HS TAKE NEXT DOSE TONIGHT 0710 AT BEDTIME Isosorbide Mononitrate Er (Isosorbide Mononitrate) 60 Mg Tab.er.24h 60 Mg PO DAILY TAKE NEXT DOSE TOMORROW 11/14 IN AM Allergies Allergies: Coded Allergies: Iodinated Contrast- Oral and IV Dye (Verified Allergy, Severe, Anaphylaxis , 03/18/16) adhesive tape (Verified Allergy, Intermediate, 03/19/16) meperidine (Verified Adverse Reaction, Intermediate, Vomiting, 04/19/16) ROS General: YES: Fatigue, Malaise, Appetite PSYCHOLOGICAL ROS: YES: Anxiety Eyes: Yes Blurry vision, Yes Decreased vision HEENT: YES: Heacaches Respiratory: YES: Cough Gastrointestinal: Yes Constipation Genitourinary: YES Frequency, YES Other (NOCTURIA ) Musculoskeletal: Yes Muscular Weakness Neurological: Yes Weakness Skin: Yes Dry Skin Physical Exam General: Alert, Oriented X3, Cooperative, No acute distress HEENT: Atraumatic, PERRLA, EOMI, Mucous membr. moist/pink Lungs: Clear to auscultation, Normal air movement Heart: Regular rate, Normal S1, Normal S2 Abdomen: Normal bowel sounds, Soft, No tenderness Extremities: No clubbing, No cyanosis, No edema Skin: No rashes, No breakdown Neuro: Normal speech, Cranial nerves 3-12 NL Psych/Mental Status: Mental status NL, Mood NL MUSCULOSKELETAL: No joint tenderness, No deformity, No swelling Vitals VITALS Vital Signs Date Time Temp Pulse Resp B/P (MAP) Pulse Ox O2 Delivery O2 Flow Rate FiO2 12/29/16 11:00 97.4 53 18 116/43 (67) 94 Room Air 97.4 12/29/16 08:00 97.0 Labs Labs Laboratory Tests Test 12/28/16 13:55 12/28/16 14:24 12/28/16 18:53 12/28/16 18:55 White Blood Count 6.8 x10^3/uL (4.0-11.0) Red Blood Count 3.59 x10^6/uL (3.50-5.40) Hemoglobin 10.2 g/dL (12.0-15.5) Hematocrit 31.1 % (36.0-47.0) Mean Corpuscular Volume 87 fL (79-100) Mean Corpuscular Hemoglobin 29 pg (25-35) Mean Corpuscular Hemoglobin Concent 33 g/dL (31-37) Red Cell Distribution Width 16.7 % (11.5-14.5) Platelet Count 330 x10^3/uL (140-400) Neutrophils (%) (Auto) 73 % (31-73) Lymphocytes (%) (Auto) 16 % (24-48) Monocytes (%) (Auto) 7 % (0-9) Eosinophils (%) (Auto) 3 % (0-3) Basophils (%) (Auto) 0 % (0-3) Neutrophils # (Auto) 5.0 x10^3uL (1.8-7.7) Lymphocytes # (Auto) 1.1 x10^3/uL (1.0-4.8) Monocytes # (Auto) 0.5 x10^3/uL (0.0-1.1) Eosinophils # (Auto) 0.2 x10^3/uL (0.0-0.7) Basophils # (Auto) 0.0 x10^3/uL (0.0-0.2) Prothrombin Time 24.9 SEC (11.7-14.0) Prothromb Time International Ratio 2.4 (0.8-1.1) Sodium Level 129 mmol/L (136-145) Potassium Level 5.2 mmol/L (3.5-5.1) Chloride Level 93 mmol/L (98-107) Carbon Dioxide Level 31 mmol/L (21-32) Anion Gap 5 (6-14) Blood Urea Nitrogen 67 mg/dL (7-20) Creatinine 2.0 mg/dL (0.6-1.0) Estimated GFR (Cockcroft-Gault) 24.0 Glucose Level 636 mg/dL (70-99) 592 mg/dL (70-99) Calcium Level 10.3 mg/dL (8.5-10.1) Magnesium Level 2.3 mg/dL (1.8-2.4) Total Bilirubin 0.3 mg/dL (0.2-1.0) Direct Bilirubin 0.1 mg/dL (0.0-0.2) Aspartate Amino Transf (AST/SGOT) 11 U/L (15-37) Alanine Aminotransferase (ALT/SGPT) 18 U/L (14-59) Alkaline Phosphatase 148 U/L (46-116) Creatine Kinase 22 U/L (26-192) Creatine Kinase MB (Mass) 0.9 ng/mL (0.0-3.6) Creatine Kinase MB Relative Index 4.1 % (0-4) Troponin I Quantitative 0.022 ng/mL (0.000-0.055) ER-Yqh-Q-Type Natriuretic Peptide 3568 pg/mL (0-449) Total Protein 8.3 g/dL (6.4-8.2) Albumin 2.7 g/dL (3.4-5.0) Lipase 97 U/L (73-393) Thyroid Stimulating Hormone (TSH) 3.068 uIU/mL (0.358-3.74) Urine Collection Type Unknown Urine Color Yellow Urine Clarity Clear Urine pH 6.5 Urine Specific [place] 1.010 Urine Protein Negative mg/dL (NEG-TRACE) Urine Glucose (UA) >=1000 mg/dL (NEG) Urine Ketones (Stick) Negative mg/dL (NEG) Urine Blood Negative (NEG) Urine Nitrite Negative (NEG) Urine Bilirubin Negative (NEG) Urine Urobilinogen Dipstick 0.2 mg/dL (0.2 mg/dL) Urine Leukocyte Esterase Trace (NEG) Urine RBC Occ /HPF (0-2) Urine WBC 1-4 /HPF (0-4) Urine Squamous Epithelial Cells Mod /LPF Urine Bacteria Few /HPF (0-FEW) Urine Hyaline Casts Moderate /HPF Glucose (Fingerstick) 591 mg/dL (70-99) Test 12/28/16 20:32 12/28/16 21:12 12/28/16 22:05 12/29/16 01:13 Glucose (Fingerstick) 465 mg/dL (70-99) 433 mg/dL (70-99) 287 mg/dL (70-99) Troponin I Quantitative 0.024 ng/mL (0.000-0.055) Test 12/29/16 07:47 12/29/16 08:00 12/29/16 11:27 Glucose (Fingerstick) 395 mg/dL (70-99) 442 mg/dL (70-99) White Blood Count 8.0 x10^3/uL (4.0-11.0) Red Blood Count 3.71 x10^6/uL (3.50-5.40) Hemoglobin 10.9 g/dL (12.0-15.5) Hematocrit 31.5 % (36.0-47.0) Mean Corpuscular Volume 85 fL (79-100) Mean Corpuscular Hemoglobin 29 pg (25-35) Mean Corpuscular Hemoglobin Concent 35 g/dL (31-37) Red Cell Distribution Width 16.8 % (11.5-14.5) Platelet Count 345 x10^3/uL (140-400) Neutrophils (%) (Auto) 71 % (31-73) Lymphocytes (%) (Auto) 18 % (24-48) Monocytes (%) (Auto) 6 % (0-9) Eosinophils (%) (Auto) 4 % (0-3) Basophils (%) (Auto) 1 % (0-3) Neutrophils # (Auto) 5.7 x10^3uL (1.8-7.7) Lymphocytes # (Auto) 1.4 x10^3/uL (1.0-4.8) Monocytes # (Auto) 0.5 x10^3/uL (0.0-1.1) Eosinophils # (Auto) 0.4 x10^3/uL (0.0-0.7) Basophils # (Auto) 0.1 x10^3/uL (0.0-0.2) Prothrombin Time 24.9 SEC (11.7-14.0) Prothromb Time International Ratio 2.4 (0.8-1.1) Sodium Level 132 mmol/L (136-145) Potassium Level 5.1 mmol/L (3.5-5.1) Chloride Level 94 mmol/L (98-107) Carbon Dioxide Level 31 mmol/L (21-32) Anion Gap 7 (6-14) Blood Urea Nitrogen 58 mg/dL (7-20) Creatinine 1.6 mg/dL (0.6-1.0) Estimated GFR (Cockcroft-Gault) 31.0 Glucose Level 373 mg/dL (70-99) Calcium Level 9.6 mg/dL (8.5-10.1) Troponin I Quantitative < 0.017 ng/mL (0.000-0.055) Laboratory Tests Test 12/28/16 13:55 12/28/16 14:24 12/28/16 18:53 12/28/16 18:55 White Blood Count 6.8 x10^3/uL (4.0-11.0) Red Blood Count 3.59 x10^6/uL (3.50-5.40) Hemoglobin 10.2 g/dL (12.0-15.5) Hematocrit 31.1 % (36.0-47.0) Mean Corpuscular Volume 87 fL (79-100) Mean Corpuscular Hemoglobin 29 pg (25-35) Mean Corpuscular Hemoglobin Concent 33 g/dL (31-37) Red Cell Distribution Width 16.7 % (11.5-14.5) Platelet Count 330 x10^3/uL (140-400) Neutrophils (%) (Auto) 73 % (31-73) Lymphocytes (%) (Auto) 16 % (24-48) Monocytes (%) (Auto) 7 % (0-9) Eosinophils (%) (Auto) 3 % (0-3) Basophils (%) (Auto) 0 % (0-3) Neutrophils # (Auto) 5.0 x10^3uL (1.8-7.7) Lymphocytes # (Auto) 1.1 x10^3/uL (1.0-4.8) Monocytes # (Auto) 0.5 x10^3/uL (0.0-1.1) Eosinophils # (Auto) 0.2 x10^3/uL (0.0-0.7) Basophils # (Auto) 0.0 x10^3/uL (0.0-0.2) Prothrombin Time 24.9 SEC (11.7-14.0) Prothromb Time International Ratio 2.4 (0.8-1.1) Sodium Level 129 mmol/L (136-145) Potassium Level 5.2 mmol/L (3.5-5.1) Chloride Level 93 mmol/L (98-107) Carbon Dioxide Level 31 mmol/L (21-32) Anion Gap 5 (6-14) Blood Urea Nitrogen 67 mg/dL (7-20) Creatinine 2.0 mg/dL (0.6-1.0) Estimated GFR (Cockcroft-Gault) 24.0 Glucose Level 636 mg/dL (70-99) 592 mg/dL (70-99) Calcium Level 10.3 mg/dL (8.5-10.1) Magnesium Level 2.3 mg/dL (1.8-2.4) Total Bilirubin 0.3 mg/dL (0.2-1.0) Direct Bilirubin 0.1 mg/dL (0.0-0.2) Aspartate Amino Transf (AST/SGOT) 11 U/L (15-37) Alanine Aminotransferase (ALT/SGPT) 18 U/L (14-59) Alkaline Phosphatase 148 U/L (46-116) Creatine Kinase 22 U/L (26-192) Creatine Kinase MB (Mass) 0.9 ng/mL (0.0-3.6) Creatine Kinase MB Relative Index 4.1 % (0-4) Troponin I Quantitative 0.022 ng/mL (0.000-0.055) VA-Nuk-J-Type Natriuretic Peptide 3568 pg/mL (0-449) Total Protein 8.3 g/dL (6.4-8.2) Albumin 2.7 g/dL (3.4-5.0) Lipase 97 U/L (73-393) Thyroid Stimulating Hormone (TSH) 3.068 uIU/mL (0.358-3.74) Urine Collection Type Unknown Urine Color Yellow Urine Clarity Clear Urine pH 6.5 Urine Specific [place] 1.010 Urine Protein Negative mg/dL (NEG-TRACE) Urine Glucose (UA) >=1000 mg/dL (NEG) Urine Ketones (Stick) Negative mg/dL (NEG) Urine Blood Negative (NEG) Urine Nitrite Negative (NEG) Urine Bilirubin Negative (NEG) Urine Urobilinogen Dipstick 0.2 mg/dL (0.2 mg/dL) Urine Leukocyte Esterase Trace (NEG) Urine RBC Occ /HPF (0-2) Urine WBC 1-4 /HPF (0-4) Urine Squamous Epithelial Cells Mod /LPF Urine Bacteria Few /HPF (0-FEW) Urine Hyaline Casts Moderate /HPF Glucose (Fingerstick) 591 mg/dL (70-99) Test 12/28/16 20:32 12/28/16 21:12 12/28/16 22:05 12/29/16 01:13 Glucose (Fingerstick) 465 mg/dL (70-99) 433 mg/dL (70-99) 287 mg/dL (70-99) Troponin I Quantitative 0.024 ng/mL (0.000-0.055) Test 12/29/16 07:47 12/29/16 08:00 12/29/16 11:27 Glucose (Fingerstick) 395 mg/dL (70-99) 442 mg/dL (70-99) White Blood Count 8.0 x10^3/uL (4.0-11.0) Red Blood Count 3.71 x10^6/uL (3.50-5.40) Hemoglobin 10.9 g/dL (12.0-15.5) Hematocrit 31.5 % (36.0-47.0) Mean Corpuscular Volume 85 fL (79-100) Mean Corpuscular Hemoglobin 29 pg (25-35) Mean Corpuscular Hemoglobin Concent 35 g/dL (31-37) Red Cell Distribution Width 16.8 % (11.5-14.5) Platelet Count 345 x10^3/uL (140-400) Neutrophils (%) (Auto) 71 % (31-73) Lymphocytes (%) (Auto) 18 % (24-48) Monocytes (%) (Auto) 6 % (0-9) Eosinophils (%) (Auto) 4 % (0-3) Basophils (%) (Auto) 1 % (0-3) Neutrophils # (Auto) 5.7 x10^3uL (1.8-7.7) Lymphocytes # (Auto) 1.4 x10^3/uL (1.0-4.8) Monocytes # (Auto) 0.5 x10^3/uL (0.0-1.1) Eosinophils # (Auto) 0.4 x10^3/uL (0.0-0.7) Basophils # (Auto) 0.1 x10^3/uL (0.0-0.2) Prothrombin Time 24.9 SEC (11.7-14.0) Prothromb Time International Ratio 2.4 (0.8-1.1) Sodium Level 132 mmol/L (136-145) Potassium Level 5.1 mmol/L (3.5-5.1) Chloride Level 94 mmol/L (98-107) Carbon Dioxide Level 31 mmol/L (21-32) Anion Gap 7 (6-14) Blood Urea Nitrogen 58 mg/dL (7-20) Creatinine 1.6 mg/dL (0.6-1.0) Estimated GFR (Cockcroft-Gault) 31.0 Glucose Level 373 mg/dL (70-99) Calcium Level 9.6 mg/dL (8.5-10.1) Troponin I Quantitative < 0.017 ng/mL (0.000-0.055) Assessment/Plan Assessment/Plan IMP GRACIELA DEHYDRATION NON KETOTIC HYPEROSMOTIC STATE HYPERGLYCEMIA CKD STAGE 3 WITH CR OF 1.2-1.5 ON AVG DM II RECENT UTI HYPERNATREMIA HYPERKALEMIA PLAN IVF'S CR ESSENTIALLY BACK TO BASELINE FOR HER ALSO ASKED HER TO AVOID MOBIC USE-STOP MOBIC CONT COZAAR LABS IN WILL FOLLOW JOSHUA HERNANDEZ MD Dec 29, 2016 11:52
[2016-12-29] MEDS: IV NORMAL SALINE 1000ML BAG 1,000 ML IV SCH (12:11)
[2016-12-29] MEDS ORDERED: INSULIN REGULAR 100 UNIT/ML 10ML VIAL. IV ONE (12:15)
--- NOTE | 2016-12-29 12:28 | PDOC2 ---
CONSULT Date of Consult Date of Consult DATE: 12/29/16 TIME: 12:06 Reason for Consult Reason for Consult: CHF Referring Physician Referring Physician: Eligio Benitez MD Identification/Chief Complaint Chief Complaint Hyperglycemia Problems: History of Present Illness Reason for Visit: Ms. Astorga is a very pleasant 81 yo female who presents complaining of hyperglycemia. She stated on Sunday she had an episode with BS >600 and loss of consciousness and vomiting while at dinner. She came on on due to continuation of uncontrolled BS. She stated her blood sugars used to run <150 but have been consistently above 500 for the past week. She said she has an appointment with a new park interpreter soon and that she is unsure why her sugars have been so out of control. She additionalyl admits to being very weak, and "wobbly." She has a history of mitral regurg, WI x2, stents, endocarditis, and heart failure, and contrast induced anaphylaxis. 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 Past Medical History Cardiovascular: CAD, CHF, HTN, WI, Valve insufficiency, Pulmonary hypertension , Other GI: GERD, Gastritis Heme/Onc: Cancer Renal/: Chronic renal insuff Endocrine: Diabetes Past Surgical History Past Surgical History: Pacemaker, Other Family History Family History: No Significant, Diabetes, Hypertension Social History ALCOHOL: none Drugs: None Lives: with Family Current Problem List Problem List Problems Medical Problems: (1) UTI (urinary tract infection) Status: Acute Current Medications Current Medications Current Medications Ceftriaxone Sodium 50 ml @ 100 mls/hr 1X ONCE IV Last administered on 15:29; Start 12/28/16 at 15:15; Stop 12/28/16 at 15:44; Status DC Insulin Aspart (NovoLOG) 0-7 UNITS TIDWMEALS SQ Last administered on 12/29/16 08:08; Start 12/28/16 at 17:00 Dextrose (Dextrose 50%-Water Syringe) 12.5 gm PRN Q15MIN PRN IV SEE COMMENTS; Start 12/28/16 at 15:30 Sodium Chloride 1,000 ml @ 1,000 mls/hr 1X ONCE IV Last administered on 15:48; Start 12/28/16 at 15:45; Stop 12/28/16 at 16:44; Status DC Ondansetron HCl (Zofran) 4 mg PRN Q8HRS PRN IV NAUSEA/VOMITING; Start 12/28/16 at 16:30; Stop 12/29/16 at 16:29 Insulin Aspart (NovoLOG) 10 units 1X ONCE SQ Last administered on 12/28/16 17 :35; Start 12/28/16 at 17:15; Stop 12/28/16 at 17:16; Status DC Insulin Aspart (NovoLOG) 10 units 1X ONCE SQ Last administered on 12/28/16 19 :24; Start 12/28/16 at 19:15; Stop 12/28/16 at 19:16; Status DC Acetaminophen (Tylenol) 500 mg PRN Q8HRS PRN PO PAIN; Start 12/28/16 at 20:00 Amlodipine Besylate (Norvasc) 10 mg DAILY PO Last administered on 12/29/16 08: 46; Start 12/29/16 at 09:00 Aspirin (Derek Aspirin) 325 mg [id number] PO Last administered on 12/29/16 07: 59; Start 12/29/16 at 08:00 Atorvastatin Calcium (Lipitor) 40 mg HS PO Last administered on 12/28/16 21:12 ; Start 12/28/16 at 21:00 Calcium/Vitamin D (Oscal D 500mg/ 200uts) 1 tab DAILY PO Last administered on 08:45; Start 12/29/16 at 09:00 Docusate Sodium (Colace) 200 mg HS PO Last administered on 12/28/16 21:12; Start 12/28/16 at 21:00 Furosemide (Lasix) 80 mg BID92 PO Last administered on 12/29/16 09:00; Start 12/29/16 at 09:00 Acetaminophen/ Hydrocodone Bitart (Lortab 5/325) 1 tab Q12HR PRN PO PAIN Last administered on 12/28/16 20:30; Start 12/28/16 at 20:00 Meclizine HCl (Antivert) 12.5 mg BID PO Last administered on 12/29/16 08:46; Start 12/28/16 at 21:00 Meloxicam (Mobic) 7.5 mg DAILY PO Last administered on 12/29/16 08:45; Start 12/29/16 at 09:00; Stop 12/29/16 at 11:53; Status DC Metoprolol Tartrate (Lopressor) 25 mg BID PO Last administered on 12/29/16 08: 45; Start 12/28/16 at 21:00 Nitroglycerin (Nitrostat) 0.4 mg PRN Q5MIN PRN SL CHEST PAIN; Start 12/28/16 at 20:00 Pantoprazole Sodium (Protonix) 40 mg DAILYAC PO Last administered on 12/29/16 07:59; Start 12/29/16 at 07:30 Spironolactone (Aldactone) 25 mg DAILY PO Last administered on 12/29/16 08:46 ; Start 12/29/16 at 09:00 Warfarin Sodium (Coumadin) 4 mg QM-F PO ; Start 12/29/16 at 16:00 Warfarin Sodium (Coumadin) 4 mg QSA PO ; Start 12/30/16 at 16:00 Isosorbide Mononitrate (Imdur) 60 mg DAILY PO Last administered on 12/29/16 08 :44; Start 12/29/16 at 09:00 Losartan Potassium (Cozaar) 50 mg DAILY PO Last administered on 12/29/16 08:45 ; Start 12/29/16 at 09:00 Levofloxacin (Levaquin) 250 mg DAILY06 PO Last administered on 12/29/16 06:30 ; Start 12/29/16 at 06:00; Stop 12/29/16 at 09:49; Status DC Warfarin Sodium (Coumadin Per Pharmacy) 1 each PRN DAILY PRN MC SEE COMMENTS; Start 12/28/16 at 20:45 Warfarin Sodium (Coumadin) 4 mg 1X WARF ONCE PO Last administered on 22:33; Start 12/28/16 at 21:29; Stop 12/28/16 at 21:30; Status DC Insulin Aspart (NovoLOG) 5 units 1X ONCE SQ Last administered on 12/29/16 08: 51; Start 12/29/16 at 08:30; Stop 12/29/16 at 08:31; Status DC Insulin Human Regular (NovoLIN R VIAL) 10 unit 1X ONCE IV ; Start 12/29/16 at 12:15; Stop 12/29/16 at 12:16 Sodium Chloride 1,000 ml @ 75 mls/hr [id number] IV ; Start 12/29/16 at 12:00 Active Scripts Active Reported Levaquin (Levofloxacin) 500 Mg Tablet 250 Mg PO DAILY for 14 days order started 12/22/16 Coumadin (Warfarin Sodium) 4 Mg Tablet 1 Tab PO QSA Coumadin (Warfarin Sodium) 4 Mg Tablet 1 Tab PO QM-F fr Mon til Sat Aspirin 325 Mg Tablet 1 Tab PO DAILY Calcium 500 + Vit D 200 Tablet (Calcium Carbonate/Vitamin D3) 1 Each Tablet 1 Each PO DAILY TAKE NEXT DOSE TOMORROW 11/14 IN AM Novolog Flexpen (Insulin Aspart) 100 Unit/1 Ml Insuln.pen 1 Unit SQ 150-200= 4 units 201-250= 7 units 251-300= 10 units 301-350= 13 units 351-400= 16 units 401-450= 18 units 451-500= 20 units 501-550= 22 units notify if bg < 110 NITROGLYCERIN SubLingual (Nitroglycerin) 0.4 Mg Tab.subl 0.4 Mg SL PRN Q5MIN PRN Protonix (Pantoprazole Sodium) 40 Mg Tablet.dr 1 Tab PO DAILY TAKE NEXT DOSE TOMORROW 11/14 IN AM Metoprolol Tartrate 25 Mg Tablet 1 Tab PO BID TAKE NEXT DOSE TONIGHT 7/10 AT BEDTIME Acetaminophen 500 Mg Tablet 500 Mg PO PRN Q8HRS PRN Potassium Chloride 10 Meq Capsule.er 10 Meq PO DAILY Meloxicam 7.5 Mg Tablet 1 Tab PO DAILY TAKE NEXT DOSE TOMORROW 11/14 IN AM Meclizine Hcl 12.5 Mg Tablet 1 Tab PO BID TAKE NEXT DOSE TONIGHT 07 AT BEDTIME Hydrocodone-Apap 5-325 (Hydrocodone Bit/Acetaminophen) 1 Each Tablet 1 Tab PO Q12HR PRN Spironolactone 25 Mg Tablet 25 Mg PO DAILY TAKE NEXT DOSE TOMORROW 11/14 IN AM Furosemide 80 Mg Tablet 80 Mg PO BID TAKE NEXT DOSE TOMORROW 11/14 IN AM Stool Softener (Docusate Sodium) 100 Mg Capsule 200 Mg PO HS TAKE NEXT DOSE TONIGHT 07/10 AT BEDTIME Amlodipine Besylate 10 Mg Tablet 10 Mg PO DAILY TAKE NEXT DOSE TOMORROW 11/14 IN AM hold if sbp less than 100 Losartan Potassium 100 Mg Tablet 50 Mg PO DAILY TAKE NEXT DOSE TOMORROW 11/14 IN AM Atorvastatin Calcium 40 Mg Tablet 40 Mg PO HS TAKE NEXT DOSE TONIGHT 11/13 AT BEDTIME Isosorbide Mononitrate Er (Isosorbide Mononitrate) 60 Mg Tab.er.24h 60 Mg PO DAILY TAKE NEXT DOSE TOMORROW 11/14 IN AM Allergies Allergies: Coded Allergies: Iodinated Contrast- Oral and IV Dye (Verified Allergy, Severe, Anaphylaxis , 03/18/16) adhesive tape (Verified Allergy, Intermediate, 03/19/16) meperidine (Verified Adverse Reaction, Intermediate, Vomiting, 04/19/16) ROS General: YES: Fatigue, Malaise Gastrointestinal: Yes Nausea, Yes Vomiting Genitourinary: YES Frequency Physical Exam Physical Exam General: Awake, alert, weak. Mild distress Heart: RRR, mitral regurg 2/6. No rubs, gallops. Lungs: CTA bilaterally Vasc: No JVD, peripheral edema b/l LE Vitals VITALS Vital Signs Date Time Temp Pulse Resp B/P (MAP) Pulse Ox O2 Delivery O2 Flow Rate FiO2 12/29/16 11:00 97.4 53 18 116/43 (67) 94 Room Air 97.4 12/29/16 08:00 97.0 Labs Labs Laboratory Tests Test 12/28/16 13:55 12/28/16 14:24 12/28/16 18:53 12/28/16 18:55 White Blood Count 6.8 x10^3/uL (4.0-11.0) Red Blood Count 3.59 x10^6/uL (3.50-5.40) Hemoglobin 10.2 g/dL (12.0-15.5) Hematocrit 31.1 % (36.0-47.0) Mean Corpuscular Volume 87 fL (79-100) Mean Corpuscular Hemoglobin 29 pg (25-35) Mean Corpuscular Hemoglobin Concent 33 g/dL (31-37) Red Cell Distribution Width 16.7 % (11.5-14.5) Platelet Count 330 x10^3/uL (140-400) Neutrophils (%) (Auto) 73 % (31-73) Lymphocytes (%) (Auto) 16 % (24-48) Monocytes (%) (Auto) 7 % (0-9) Eosinophils (%) (Auto) 3 % (0-3) Basophils (%) (Auto) 0 % (0-3) Neutrophils # (Auto) 5.0 x10^3uL (1.8-7.7) Lymphocytes # (Auto) 1.1 x10^3/uL (1.0-4.8) Monocytes # (Auto) 0.5 x10^3/uL (0.0-1.1) Eosinophils # (Auto) 0.2 x10^3/uL (0.0-0.7) Basophils # (Auto) 0.0 x10^3/uL (0.0-0.2) Prothrombin Time 24.9 SEC (11.7-14.0) Prothromb Time International Ratio 2.4 (0.8-1.1) Sodium Level 129 mmol/L (136-145) Potassium Level 5.2 mmol/L (3.5-5.1) Chloride Level 93 mmol/L (98-107) Carbon Dioxide Level 31 mmol/L (21-32) Anion Gap 5 (6-14) Blood Urea Nitrogen 67 mg/dL (7-20) Creatinine 2.0 mg/dL (0.6-1.0) Estimated GFR (Cockcroft-Gault) 24.0 Glucose Level 636 mg/dL (70-99) 592 mg/dL (70-99) Calcium Level 10.3 mg/dL (8.5-10.1) Magnesium Level 2.3 mg/dL (1.8-2.4) Total Bilirubin 0.3 mg/dL (0.2-1.0) Direct Bilirubin 0.1 mg/dL (0.0-0.2) Aspartate Amino Transf (AST/SGOT) 11 U/L (15-37) Alanine Aminotransferase (ALT/SGPT) 18 U/L (14-59) Alkaline Phosphatase 148 U/L (46-116) Creatine Kinase 22 U/L (26-192) Creatine Kinase MB (Mass) 0.9 ng/mL (0.0-3.6) Creatine Kinase MB Relative Index 4.1 % (0-4) Troponin I Quantitative 0.022 ng/mL (0.000-0.055) PH-Ova-K-Type Natriuretic Peptide 3568 pg/mL (0-449) Total Protein 8.3 g/dL (6.4-8.2) Albumin 2.7 g/dL (3.4-5.0) Lipase 97 U/L (73-393) Thyroid Stimulating Hormone (TSH) 3.068 uIU/mL (0.358-3.74) Urine Collection Type Unknown Urine Color Yellow Urine Clarity Clear Urine pH 6.5 Urine Specific Larsen 1.010 Urine Protein Negative mg/dL (NEG-TRACE) Urine Glucose (UA) >=1000 mg/dL (NEG) Urine Ketones (Stick) Negative mg/dL (NEG) Urine Blood Negative (NEG) Urine Nitrite Negative (NEG) Urine Bilirubin Negative (NEG) Urine Urobilinogen Dipstick 0.2 mg/dL (0.2 mg/dL) Urine Leukocyte Esterase Trace (NEG) Urine RBC Occ /HPF (0-2) Urine WBC 1-4 /HPF (0-4) Urine Squamous Epithelial Cells Mod /LPF Urine Bacteria Few /HPF (0-FEW) Urine Hyaline Casts Moderate /HPF Glucose (Fingerstick) 591 mg/dL (70-99) Test 12/28/16 20:32 12/28/16 21:12 12/28/16 22:05 12/29/16 01:13 Glucose (Fingerstick) 465 mg/dL (70-99) 433 mg/dL (70-99) 287 mg/dL (70-99) Troponin I Quantitative 0.024 ng/mL (0.000-0.055) Test 12/29/16 07:47 12/29/16 08:00 12/29/16 11:27 Glucose (Fingerstick) 395 mg/dL (70-99) 442 mg/dL (70-99) White Blood Count 8.0 x10^3/uL (4.0-11.0) Red Blood Count 3.71 x10^6/uL (3.50-5.40) Hemoglobin 10.9 g/dL (12.0-15.5) Hematocrit 31.5 % (36.0-47.0) Mean Corpuscular Volume 85 fL (79-100) Mean Corpuscular Hemoglobin 29 pg (25-35) Mean Corpuscular Hemoglobin Concent 35 g/dL (31-37) Red Cell Distribution Width 16.8 % (11.5-14.5) Platelet Count 345 x10^3/uL (140-400) Neutrophils (%) (Auto) 71 % (31-73) Lymphocytes (%) (Auto) 18 % (24-48) Monocytes (%) (Auto) 6 % (0-9) Eosinophils (%) (Auto) 4 % (0-3) Basophils (%) (Auto) 1 % (0-3) Neutrophils # (Auto) 5.7 x10^3uL (1.8-7.7) Lymphocytes # (Auto) 1.4 x10^3/uL (1.0-4.8) Monocytes # (Auto) 0.5 x10^3/uL (0.0-1.1) Eosinophils # (Auto) 0.4 x10^3/uL (0.0-0.7) Basophils # (Auto) 0.1 x10^3/uL (0.0-0.2) Prothrombin Time 24.9 SEC (11.7-14.0) Prothromb Time International Ratio 2.4 (0.8-1.1) Sodium Level 132 mmol/L (136-145) Potassium Level 5.1 mmol/L (3.5-5.1) Chloride Level 94 mmol/L (98-107) Carbon Dioxide Level 31 mmol/L (21-32) Anion Gap 7 (6-14) Blood Urea Nitrogen 58 mg/dL (7-20) Creatinine 1.6 mg/dL (0.6-1.0) Estimated GFR (Cockcroft-Gault) 31.0 Glucose Level 373 mg/dL (70-99) Calcium Level 9.6 mg/dL (8.5-10.1) Troponin I Quantitative < 0.017 ng/mL (0.000-0.055) Laboratory Tests Test 12/28/16 13:55 12/28/16 14:24 12/28/16 18:53 12/28/16 18:55 White Blood Count 6.8 x10^3/uL (4.0-11.0) Red Blood Count 3.59 x10^6/uL (3.50-5.40) Hemoglobin 10.2 g/dL (12.0-15.5) Hematocrit 31.1 % (36.0-47.0) Mean Corpuscular Volume 87 fL (79-100) Mean Corpuscular Hemoglobin 29 pg (25-35) Mean Corpuscular Hemoglobin Concent 33 g/dL (31-37) Red Cell Distribution Width 16.7 % (11.5-14.5) Platelet Count 330 x10^3/uL (140-400) Neutrophils (%) (Auto) 73 % (31-73) Lymphocytes (%) (Auto) 16 % (24-48) Monocytes (%) (Auto) 7 % (0-9) Eosinophils (%) (Auto) 3 % (0-3) Basophils (%) (Auto) 0 % (0-3) Neutrophils # (Auto) 5.0 x10^3uL (1.8-7.7) Lymphocytes # (Auto) 1.1 x10^3/uL (1.0-4.8) Monocytes # (Auto) 0.5 x10^3/uL (0.0-1.1) Eosinophils # (Auto) 0.2 x10^3/uL (0.0-0.7) Basophils # (Auto) 0.0 x10^3/uL (0.0-0.2) Prothrombin Time 24.9 SEC (11.7-14.0) Prothromb Time International Ratio 2.4 (0.8-1.1) Sodium Level 129 mmol/L (136-145) Potassium Level 5.2 mmol/L (3.5-5.1) Chloride Level 93 mmol/L (98-107) Carbon Dioxide Level 31 mmol/L (21-32) Anion Gap 5 (6-14) Blood Urea Nitrogen 67 mg/dL (7-20) Creatinine 2.0 mg/dL (0.6-1.0) Estimated GFR (Cockcroft-Gault) 24.0 Glucose Level 636 mg/dL (70-99) 592 mg/dL (70-99) Calcium Level 10.3 mg/dL (8.5-10.1) Magnesium Level 2.3 mg/dL (1.8-2.4) Total Bilirubin 0.3 mg/dL (0.2-1.0) Direct Bilirubin 0.1 mg/dL (0.0-0.2) Aspartate Amino Transf (AST/SGOT) 11 U/L (15-37) Alanine Aminotransferase (ALT/SGPT) 18 U/L (14-59) Alkaline Phosphatase 148 U/L (46-116) Creatine Kinase 22 U/L (26-192) Creatine Kinase MB (Mass) 0.9 ng/mL (0.0-3.6) Creatine Kinase MB Relative Index 4.1 % (0-4) Troponin I Quantitative 0.022 ng/mL (0.000-0.055) QF-Hfd-I-Type Natriuretic Peptide 3568 pg/mL (0-449) Total Protein 8.3 g/dL (6.4-8.2) Albumin 2.7 g/dL (3.4-5.0) Lipase 97 U/L (73-393) Thyroid Stimulating Hormone (TSH) 3.068 uIU/mL (0.358-3.74) Urine Collection Type Unknown Urine Color Yellow Urine Clarity Clear Urine pH 6.5 Urine Specific Larsen 1.010 Urine Protein Negative mg/dL (NEG-TRACE) Urine Glucose (UA) >=1000 mg/dL (NEG) Urine Ketones (Stick) Negative mg/dL (NEG) Urine Blood Negative (NEG) Urine Nitrite Negative (NEG) Urine Bilirubin Negative (NEG) Urine Urobilinogen Dipstick 0.2 mg/dL (0.2 mg/dL) Urine Leukocyte Esterase Trace (NEG) Urine RBC Occ /HPF (0-2) Urine WBC 1-4 /HPF (0-4) Urine Squamous Epithelial Cells Mod /LPF Urine Bacteria Few /HPF (0-FEW) Urine Hyaline Casts Moderate /HPF Glucose (Fingerstick) 591 mg/dL (70-99) Test 12/28/16 20:32 12/28/16 21:12 12/28/16 22:05 12/29/16 01:13 Glucose (Fingerstick) 465 mg/dL (70-99) 433 mg/dL (70-99) 287 mg/dL (70-99) Troponin I Quantitative 0.024 ng/mL (0.000-0.055) Test 12/29/16 07:47 12/29/16 08:00 12/29/16 11:27 Glucose (Fingerstick) 395 mg/dL (70-99) 442 mg/dL (70-99) White Blood Count 8.0 x10^3/uL (4.0-11.0) Red Blood Count 3.71 x10^6/uL (3.50-5.40) Hemoglobin 10.9 g/dL (12.0-15.5) Hematocrit 31.5 % (36.0-47.0) Mean Corpuscular Volume 85 fL (79-100) Mean Corpuscular Hemoglobin 29 pg (25-35) Mean Corpuscular Hemoglobin Concent 35 g/dL (31-37) Red Cell Distribution Width 16.8 % (11.5-14.5) Platelet Count 345 x10^3/uL (140-400) Neutrophils (%) (Auto) 71 % (31-73) Lymphocytes (%) (Auto) 18 % (24-48) Monocytes (%) (Auto) 6 % (0-9) Eosinophils (%) (Auto) 4 % (0-3) Basophils (%) (Auto) 1 % (0-3) Neutrophils # (Auto) 5.7 x10^3uL (1.8-7.7) Lymphocytes # (Auto) 1.4 x10^3/uL (1.0-4.8) Monocytes # (Auto) 0.5 x10^3/uL (0.0-1.1) Eosinophils # (Auto) 0.4 x10^3/uL (0.0-0.7) Basophils # (Auto) 0.1 x10^3/uL (0.0-0.2) Prothrombin Time 24.9 SEC (11.7-14.0) Prothromb Time International Ratio 2.4 (0.8-1.1) Sodium Level 132 mmol/L (136-145) Potassium Level 5.1 mmol/L (3.5-5.1) Chloride Level 94 mmol/L (98-107) Carbon Dioxide Level 31 mmol/L (21-32) Anion Gap 7 (6-14) Blood Urea Nitrogen 58 mg/dL (7-20) Creatinine 1.6 mg/dL (0.6-1.0) Estimated GFR (Cockcroft-Gault) 31.0 Glucose Level 373 mg/dL (70-99) Calcium Level 9.6 mg/dL (8.5-10.1) Troponin I Quantitative < 0.017 ng/mL (0.000-0.055) Assessment/Plan Assessment/Plan -Pt has a longstanding hx of multiple cardiac issues. Concern for repeat heart failure d/t her MR vs any repeat of her endocarditis. However I think this is less likely as her weakness, fatigue is more likely explained by her hyperglycemia/ hyperglycemic hyperosmolar state. Will need to tightly control her BS. Pt to be managed with insulin sliding scale and fluids. Anion gap is normal. Echo has been ordered and will review. -Pt in [place], likely due to dehydration. Renal managing -I have looked at her echo and cannot rule out new vegetations vs calcifications on the mitral valve. I will follow up regarding this. However I do not believe this is affecting her current symptoms. -I will continue to monitor her closely as there are multiple different cardiac concerns WILLY GURROLA MD Dec 29, 2016 12:27
[2016-12-29] MEDS: LIDOCAINE (700MG/PATCH) PATCH. TD PRN (13:27)
[2016-12-29] MEDS: ACETAMINOPHEN 500 MG TABLET PO PRN ×2 (13:27→20:01)
--- NOTE | 2016-12-29 13:31 | PDOC ---
PROGRESS NOTES Chief Complaint Chief Complaint uncontrolled DM2 hyponatremia GRACIELA on ckd3, vasomotor no UTI h/o endocarditis h/o CAD with pci stable systolic CHF ef 40% H/O BCa htn gerd from assissted living facility h/o DVT on warfain plan: fu with card, id no need abx gentle ivf, dc tmr add levemir 20u qhs, aspart 6u tid, ssi check hba1c cont home meds on coumadin, INR daily PTOT History of Present Illness History of Present Illness tail bone pain hyperglycemia at home fluctuate glucose no UTI symptom, + polyuria with lasix bid Vitals Vitals Vital Signs Date Time Temp Pulse Resp B/P (MAP) Pulse Ox O2 Delivery O2 Flow Rate FiO2 12/29/16 11:00 97.4 53 18 116/43 (67) 94 Room Air 97.4 12/29/16 08:00 97.0 Physical Exam General: Alert, Oriented X3, Cooperative, No acute distress Heart: Regular rate, Normal S1, Normal S2 Lungs: Clear Abdomen: Normal bowel sounds, Soft, No tenderness Extremities: No clubbing, No cyanosis, No edema Skin: No rashes, No breakdown Labs LABS Laboratory Tests Test 12/28/16 13:55 12/28/16 14:24 12/28/16 18:53 12/28/16 18:55 White Blood Count 6.8 x10^3/uL (4.0-11.0) Red Blood Count 3.59 x10^6/uL (3.50-5.40) Hemoglobin 10.2 g/dL (12.0-15.5) Hematocrit 31.1 % (36.0-47.0) Mean Corpuscular Volume 87 fL (79-100) Mean Corpuscular Hemoglobin 29 pg (25-35) Mean Corpuscular Hemoglobin Concent 33 g/dL (31-37) Red Cell Distribution Width 16.7 % (11.5-14.5) Platelet Count 330 x10^3/uL (140-400) Neutrophils (%) (Auto) 73 % (31-73) Lymphocytes (%) (Auto) 16 % (24-48) Monocytes (%) (Auto) 7 % (0-9) Eosinophils (%) (Auto) 3 % (0-3) Basophils (%) (Auto) 0 % (0-3) Neutrophils # (Auto) 5.0 x10^3uL (1.8-7.7) Lymphocytes # (Auto) 1.1 x10^3/uL (1.0-4.8) Monocytes # (Auto) 0.5 x10^3/uL (0.0-1.1) Eosinophils # (Auto) 0.2 x10^3/uL (0.0-0.7) Basophils # (Auto) 0.0 x10^3/uL (0.0-0.2) Prothrombin Time 24.9 SEC (11.7-14.0) Prothromb Time International Ratio 2.4 (0.8-1.1) Sodium Level 129 mmol/L (136-145) Potassium Level 5.2 mmol/L (3.5-5.1) Chloride Level 93 mmol/L (98-107) Carbon Dioxide Level 31 mmol/L (21-32) Anion Gap 5 (6-14) Blood Urea Nitrogen 67 mg/dL (7-20) Creatinine 2.0 mg/dL (0.6-1.0) Estimated GFR (Cockcroft-Gault) 24.0 Glucose Level 636 mg/dL (70-99) 592 mg/dL (70-99) Calcium Level 10.3 mg/dL (8.5-10.1) Magnesium Level 2.3 mg/dL (1.8-2.4) Total Bilirubin 0.3 mg/dL (0.2-1.0) Direct Bilirubin 0.1 mg/dL (0.0-0.2) Aspartate Amino Transf (AST/SGOT) 11 U/L (15-37) Alanine Aminotransferase (ALT/SGPT) 18 U/L (14-59) Alkaline Phosphatase 148 U/L (46-116) Creatine Kinase 22 U/L (26-192) Creatine Kinase MB (Mass) 0.9 ng/mL (0.0-3.6) Creatine Kinase MB Relative Index 4.1 % (0-4) Troponin I Quantitative 0.022 ng/mL (0.000-0.055) YT-Tgc-C-Type Natriuretic Peptide 3568 pg/mL (0-449) Total Protein 8.3 g/dL (6.4-8.2) Albumin 2.7 g/dL (3.4-5.0) Lipase 97 U/L (73-393) Thyroid Stimulating Hormone (TSH) 3.068 uIU/mL (0.358-3.74) Urine Collection Type Unknown Urine Color Yellow Urine Clarity Clear Urine pH 6.5 Urine Specific Cunningham 1.010 Urine Protein Negative mg/dL (NEG-TRACE) Urine Glucose (UA) >=1000 mg/dL (NEG) Urine Ketones (Stick) Negative mg/dL (NEG) Urine Blood Negative (NEG) Urine Nitrite Negative (NEG) Urine Bilirubin Negative (NEG) Urine Urobilinogen Dipstick 0.2 mg/dL (0.2 mg/dL) Urine Leukocyte Esterase Trace (NEG) Urine RBC Occ /HPF (0-2) Urine WBC 1-4 /HPF (0-4) Urine Squamous Epithelial Cells Mod /LPF Urine Bacteria Few /HPF (0-FEW) Urine Hyaline Casts Moderate /HPF Glucose (Fingerstick) 591 mg/dL (70-99) Test 12/28/16 20:32 12/28/16 21:12 12/28/16 22:05 12/29/16 01:13 Glucose (Fingerstick) 465 mg/dL (70-99) 433 mg/dL (70-99) 287 mg/dL (70-99) Troponin I Quantitative 0.024 ng/mL (0.000-0.055) Test 12/29/16 07:47 12/29/16 08:00 12/29/16 11:27 Glucose (Fingerstick) 395 mg/dL (70-99) 442 mg/dL (70-99) White Blood Count 8.0 x10^3/uL (4.0-11.0) Red Blood Count 3.71 x10^6/uL (3.50-5.40) Hemoglobin 10.9 g/dL (12.0-15.5) Hematocrit 31.5 % (36.0-47.0) Mean Corpuscular Volume 85 fL (79-100) Mean Corpuscular Hemoglobin 29 pg (25-35) Mean Corpuscular Hemoglobin Concent 35 g/dL (31-37) Red Cell Distribution Width 16.8 % (11.5-14.5) Platelet Count 345 x10^3/uL (140-400) Neutrophils (%) (Auto) 71 % (31-73) Lymphocytes (%) (Auto) 18 % (24-48) Monocytes (%) (Auto) 6 % (0-9) Eosinophils (%) (Auto) 4 % (0-3) Basophils (%) (Auto) 1 % (0-3) Neutrophils # (Auto) 5.7 x10^3uL (1.8-7.7) Lymphocytes # (Auto) 1.4 x10^3/uL (1.0-4.8) Monocytes # (Auto) 0.5 x10^3/uL (0.0-1.1) Eosinophils # (Auto) 0.4 x10^3/uL (0.0-0.7) Basophils # (Auto) 0.1 x10^3/uL (0.0-0.2) Prothrombin Time 24.9 SEC (11.7-14.0) Prothromb Time International Ratio 2.4 (0.8-1.1) Sodium Level 132 mmol/L (136-145) Potassium Level 5.1 mmol/L (3.5-5.1) Chloride Level 94 mmol/L (98-107) Carbon Dioxide Level 31 mmol/L (21-32) Anion Gap 7 (6-14) Blood Urea Nitrogen 58 mg/dL (7-20) Creatinine 1.6 mg/dL (0.6-1.0) Estimated GFR (Cockcroft-Gault) 31.0 Glucose Level 373 mg/dL (70-99) Calcium Level 9.6 mg/dL (8.5-10.1) Troponin I Quantitative < 0.017 ng/mL (0.000-0.055) Assessment and Plan Assessmemt and Plan Problems Medical Problems: (1) UTI (urinary tract infection) Status: Acute Problems: Comment Review of Relevant I have reviewed the following items alejandra (where applicable) has been applied. Labs Laboratory Tests Test 12/28/16 13:55 12/28/16 14:24 12/28/16 18:53 12/28/16 18:55 White Blood Count 6.8 x10^3/uL (4.0-11.0) Red Blood Count 3.59 x10^6/uL (3.50-5.40) Hemoglobin 10.2 g/dL (12.0-15.5) Hematocrit 31.1 % (36.0-47.0) Mean Corpuscular Volume 87 fL (79-100) Mean Corpuscular Hemoglobin 29 pg (25-35) Mean Corpuscular Hemoglobin Concent 33 g/dL (31-37) Red Cell Distribution Width 16.7 % (11.5-14.5) Platelet Count 330 x10^3/uL (140-400) Neutrophils (%) (Auto) 73 % (31-73) Lymphocytes (%) (Auto) 16 % (24-48) Monocytes (%) (Auto) 7 % (0-9) Eosinophils (%) (Auto) 3 % (0-3) Basophils (%) (Auto) 0 % (0-3) Neutrophils # (Auto) 5.0 x10^3uL (1.8-7.7) Lymphocytes # (Auto) 1.1 x10^3/uL (1.0-4.8) Monocytes # (Auto) 0.5 x10^3/uL (0.0-1.1) Eosinophils # (Auto) 0.2 x10^3/uL (0.0-0.7) Basophils # (Auto) 0.0 x10^3/uL (0.0-0.2) Prothrombin Time 24.9 SEC (11.7-14.0) Prothromb Time International Ratio 2.4 (0.8-1.1) Sodium Level 129 mmol/L (136-145) Potassium Level 5.2 mmol/L (3.5-5.1) Chloride Level 93 mmol/L (98-107) Carbon Dioxide Level 31 mmol/L (21-32) Anion Gap 5 (6-14) Blood Urea Nitrogen 67 mg/dL (7-20) Creatinine 2.0 mg/dL (0.6-1.0) Estimated GFR (Cockcroft-Gault) 24.0 Glucose Level 636 mg/dL (70-99) 592 mg/dL (70-99) Calcium Level 10.3 mg/dL (8.5-10.1) Magnesium Level 2.3 mg/dL (1.8-2.4) Total Bilirubin 0.3 mg/dL (0.2-1.0) Direct Bilirubin 0.1 mg/dL (0.0-0.2) Aspartate Amino Transf (AST/SGOT) 11 U/L (15-37) Alanine Aminotransferase (ALT/SGPT) 18 U/L (14-59) Alkaline Phosphatase 148 U/L (46-116) Creatine Kinase 22 U/L (26-192) Creatine Kinase MB (Mass) 0.9 ng/mL (0.0-3.6) Creatine Kinase MB Relative Index 4.1 % (0-4) Troponin I Quantitative 0.022 ng/mL (0.000-0.055) ZC-Wqm-Q-Type Natriuretic Peptide 3568 pg/mL (0-449) Total Protein 8.3 g/dL (6.4-8.2) Albumin 2.7 g/dL (3.4-5.0) Lipase 97 U/L (73-393) Thyroid Stimulating Hormone (TSH) 3.068 uIU/mL (0.358-3.74) Urine Collection Type Unknown Urine Color Yellow Urine Clarity Clear Urine pH 6.5 Urine Specific Cunningham 1.010 Urine Protein Negative mg/dL (NEG-TRACE) Urine Glucose (UA) >=1000 mg/dL (NEG) Urine Ketones (Stick) Negative mg/dL (NEG) Urine Blood Negative (NEG) Urine Nitrite Negative (NEG) Urine Bilirubin Negative (NEG) Urine Urobilinogen Dipstick 0.2 mg/dL (0.2 mg/dL) Urine Leukocyte Esterase Trace (NEG) Urine RBC Occ /HPF (0-2) Urine WBC 1-4 /HPF (0-4) Urine Squamous Epithelial Cells Mod /LPF Urine Bacteria Few /HPF (0-FEW) Urine Hyaline Casts Moderate /HPF Glucose (Fingerstick) 591 mg/dL (70-99) Test 12/28/16 20:32 12/28/16 21:12 12/28/16 22:05 12/29/16 01:13 Glucose (Fingerstick) 465 mg/dL (70-99) 433 mg/dL (70-99) 287 mg/dL (70-99) Troponin I Quantitative 0.024 ng/mL (0.000-0.055) Test 12/29/16 07:47 12/29/16 08:00 12/29/16 11:27 Glucose (Fingerstick) 395 mg/dL (70-99) 442 mg/dL (70-99) White Blood Count 8.0 x10^3/uL (4.0-11.0) Red Blood Count 3.71 x10^6/uL (3.50-5.40) Hemoglobin 10.9 g/dL (12.0-15.5) Hematocrit 31.5 % (36.0-47.0) Mean Corpuscular Volume 85 fL (79-100) Mean Corpuscular Hemoglobin 29 pg (25-35) Mean Corpuscular Hemoglobin Concent 35 g/dL (31-37) Red Cell Distribution Width 16.8 % (11.5-14.5) Platelet Count 345 x10^3/uL (140-400) Neutrophils (%) (Auto) 71 % (31-73) Lymphocytes (%) (Auto) 18 % (24-48) Monocytes (%) (Auto) 6 % (0-9) Eosinophils (%) (Auto) 4 % (0-3) Basophils (%) (Auto) 1 % (0-3) Neutrophils # (Auto) 5.7 x10^3uL (1.8-7.7) Lymphocytes # (Auto) 1.4 x10^3/uL (1.0-4.8) Monocytes # (Auto) 0.5 x10^3/uL (0.0-1.1) Eosinophils # (Auto) 0.4 x10^3/uL (0.0-0.7) Basophils # (Auto) 0.1 x10^3/uL (0.0-0.2) Prothrombin Time 24.9 SEC (11.7-14.0) Prothromb Time International Ratio 2.4 (0.8-1.1) Sodium Level 132 mmol/L (136-145) Potassium Level 5.1 mmol/L (3.5-5.1) Chloride Level 94 mmol/L (98-107) Carbon Dioxide Level 31 mmol/L (21-32) Anion Gap 7 (6-14) Blood Urea Nitrogen 58 mg/dL (7-20) Creatinine 1.6 mg/dL (0.6-1.0) Estimated GFR (Cockcroft-Gault) 31.0 Glucose Level 373 mg/dL (70-99) Calcium Level 9.6 mg/dL (8.5-10.1) Troponin I Quantitative < 0.017 ng/mL (0.000-0.055) Laboratory Tests Test 12/28/16 13:55 12/28/16 14:24 12/28/16 18:53 12/28/16 18:55 White Blood Count 6.8 x10^3/uL (4.0-11.0) Red Blood Count 3.59 x10^6/uL (3.50-5.40) Hemoglobin 10.2 g/dL (12.0-15.5) Hematocrit 31.1 % (36.0-47.0) Mean Corpuscular Volume 87 fL (79-100) Mean Corpuscular Hemoglobin 29 pg (25-35) Mean Corpuscular Hemoglobin Concent 33 g/dL (31-37) Red Cell Distribution Width 16.7 % (11.5-14.5) Platelet Count 330 x10^3/uL (140-400) Neutrophils (%) (Auto) 73 % (31-73) Lymphocytes (%) (Auto) 16 % (24-48) Monocytes (%) (Auto) 7 % (0-9) Eosinophils (%) (Auto) 3 % (0-3) Basophils (%) (Auto) 0 % (0-3) Neutrophils # (Auto) 5.0 x10^3uL (1.8-7.7) Lymphocytes # (Auto) 1.1 x10^3/uL (1.0-4.8) Monocytes # (Auto) 0.5 x10^3/uL (0.0-1.1) Eosinophils # (Auto) 0.2 x10^3/uL (0.0-0.7) Basophils # (Auto) 0.0 x10^3/uL (0.0-0.2) Prothrombin Time 24.9 SEC (11.7-14.0) Prothromb Time International Ratio 2.4 (0.8-1.1) Sodium Level 129 mmol/L (136-145) Potassium Level 5.2 mmol/L (3.5-5.1) Chloride Level 93 mmol/L (98-107) Carbon Dioxide Level 31 mmol/L (21-32) Anion Gap 5 (6-14) Blood Urea Nitrogen 67 mg/dL (7-20) Creatinine 2.0 mg/dL (0.6-1.0) Estimated GFR (Cockcroft-Gault) 24.0 Glucose Level 636 mg/dL (70-99) 592 mg/dL (70-99) Calcium Level 10.3 mg/dL (8.5-10.1) Magnesium Level 2.3 mg/dL (1.8-2.4) Total Bilirubin 0.3 mg/dL (0.2-1.0) Direct Bilirubin 0.1 mg/dL (0.0-0.2) Aspartate Amino Transf (AST/SGOT) 11 U/L (15-37) Alanine Aminotransferase (ALT/SGPT) 18 U/L (14-59) Alkaline Phosphatase 148 U/L (46-116) Creatine Kinase 22 U/L (26-192) Creatine Kinase MB (Mass) 0.9 ng/mL (0.0-3.6) Creatine Kinase MB Relative Index 4.1 % (0-4) Troponin I Quantitative 0.022 ng/mL (0.000-0.055) TR-Wkk-Y-Type Natriuretic Peptide 3568 pg/mL (0-449) Total Protein 8.3 g/dL (6.4-8.2) Albumin 2.7 g/dL (3.4-5.0) Lipase 97 U/L (73-393) Thyroid Stimulating Hormone (TSH) 3.068 uIU/mL (0.358-3.74) Urine Collection Type Unknown Urine Color Yellow Urine Clarity Clear Urine pH 6.5 Urine Specific Cunningham 1.010 Urine Protein Negative mg/dL (NEG-TRACE) Urine Glucose (UA) >=1000 mg/dL (NEG) Urine Ketones (Stick) Negative mg/dL (NEG) Urine Blood Negative (NEG) Urine Nitrite Negative (NEG) Urine Bilirubin Negative (NEG) Urine Urobilinogen Dipstick 0.2 mg/dL (0.2 mg/dL) Urine Leukocyte Esterase Trace (NEG) Urine RBC Occ /HPF (0-2) Urine WBC 1-4 /HPF (0-4) Urine Squamous Epithelial Cells Mod /LPF Urine Bacteria Few /HPF (0-FEW) Urine Hyaline Casts Moderate /HPF Glucose (Fingerstick) 591 mg/dL (70-99) Test 12/28/16 20:32 12/28/16 21:12 12/28/16 22:05 12/29/16 01:13 Glucose (Fingerstick) 465 mg/dL (70-99) 433 mg/dL (70-99) 287 mg/dL (70-99) Troponin I Quantitative 0.024 ng/mL (0.000-0.055) Test 12/29/16 07:47 12/29/16 08:00 12/29/16 11:27 Glucose (Fingerstick) 395 mg/dL (70-99) 442 mg/dL (70-99) White Blood Count 8.0 x10^3/uL (4.0-11.0) Red Blood Count 3.71 x10^6/uL (3.50-5.40) Hemoglobin 10.9 g/dL (12.0-15.5) Hematocrit 31.5 % (36.0-47.0) Mean Corpuscular Volume 85 fL (79-100) Mean Corpuscular Hemoglobin 29 pg (25-35) Mean Corpuscular Hemoglobin Concent 35 g/dL (31-37) Red Cell Distribution Width 16.8 % (11.5-14.5) Platelet Count 345 x10^3/uL (140-400) Neutrophils (%) (Auto) 71 % (31-73) Lymphocytes (%) (Auto) 18 % (24-48) Monocytes (%) (Auto) 6 % (0-9) Eosinophils (%) (Auto) 4 % (0-3) Basophils (%) (Auto) 1 % (0-3) Neutrophils # (Auto) 5.7 x10^3uL (1.8-7.7) Lymphocytes # (Auto) 1.4 x10^3/uL (1.0-4.8) Monocytes # (Auto) 0.5 x10^3/uL (0.0-1.1) Eosinophils # (Auto) 0.4 x10^3/uL (0.0-0.7) Basophils # (Auto) 0.1 x10^3/uL (0.0-0.2) Prothrombin Time 24.9 SEC (11.7-14.0) Prothromb Time International Ratio 2.4 (0.8-1.1) Sodium Level 132 mmol/L (136-145) Potassium Level 5.1 mmol/L (3.5-5.1) Chloride Level 94 mmol/L (98-107) Carbon Dioxide Level 31 mmol/L (21-32) Anion Gap 7 (6-14) Blood Urea Nitrogen 58 mg/dL (7-20) Creatinine 1.6 mg/dL (0.6-1.0) Estimated GFR (Cockcroft-Gault) 31.0 Glucose Level 373 mg/dL (70-99) Calcium Level 9.6 mg/dL (8.5-10.1) Troponin I Quantitative < 0.017 ng/mL (0.000-0.055) Microbiology 12/28/16 Urine Culture - Preliminary, Resulted 12/28/16 Urine Culture Result 1 (SHERRIE) - Preliminary, Resulted Medications Current Medications Ceftriaxone Sodium 50 ml @ 100 mls/hr 1X ONCE IV Last administered on 15:29; Start 12/28/16 at 15:15; Stop 12/28/16 at 15:44; Status DC Insulin Aspart (NovoLOG) 0-7 UNITS TIDWMEALS SQ Last administered on 12/29/16 08:08; Start 12/28/16 at 17:00 Dextrose (Dextrose 50%-Water Syringe) 12.5 gm PRN Q15MIN PRN IV SEE COMMENTS; Start 12/28/16 at 15:30 Sodium Chloride 1,000 ml @ 1,000 mls/hr 1X ONCE IV Last administered on 15:48; Start 12/28/16 at 15:45; Stop 12/28/16 at 16:44; Status DC Ondansetron HCl (Zofran) 4 mg PRN Q8HRS PRN IV NAUSEA/VOMITING; Start 12/28/16 at 16:30; Stop 12/29/16 at 16:29 Insulin Aspart (NovoLOG) 10 units 1X ONCE SQ Last administered on 12/28/16 17 :35; Start 12/28/16 at 17:15; Stop 12/28/16 at 17:16; Status DC Insulin Aspart (NovoLOG) 10 units 1X ONCE SQ Last administered on 12/28/16 19 :24; Start 12/28/16 at 19:15; Stop 12/28/16 at 19:16; Status DC Acetaminophen (Tylenol) 500 mg PRN Q8HRS PRN PO PAIN; Start 12/28/16 at 20:00 Amlodipine Besylate (Norvasc) 10 mg DAILY PO Last administered on 12/29/16 08: 46; Start 12/29/16 at 09:00 Aspirin (Derek Aspirin) 325 mg [id number] PO Last administered on 12/29/16 07: 59; Start 12/29/16 at 08:00 Atorvastatin Calcium (Lipitor) 40 mg HS PO Last administered on 12/28/16 21:12 ; Start 12/28/16 at 21:00 Calcium/Vitamin D (Oscal D 500mg/ 200uts) 1 tab DAILY PO Last administered on 08:45; Start 12/29/16 at 09:00 Docusate Sodium (Colace) 200 mg HS PO Last administered on 12/28/16 21:12; Start 12/28/16 at 21:00 Furosemide (Lasix) 80 mg [id number] PO Last administered on 12/29/16 09:00; Start 12/29/16 at 09:00 Acetaminophen/ Hydrocodone Bitart (Lortab 5/325) 1 tab Q12HR PRN PO PAIN Last administered on 12/28/16 20:30; Start 12/28/16 at 20:00 Meclizine HCl (Antivert) 12.5 mg BID PO Last administered on 12/29/16 08:46; Start 12/28/16 at 21:00 Meloxicam (Mobic) 7.5 mg DAILY PO Last administered on 12/29/16 08:45; Start 12/29/16 at 09:00; Stop 12/29/16 at 11:53; Status DC Metoprolol Tartrate (Lopressor) 25 mg BID PO Last administered on 12/29/16 08: 45; Start 12/28/16 at 21:00 Nitroglycerin (Nitrostat) 0.4 mg PRN Q5MIN PRN SL CHEST PAIN; Start 12/28/16 at 20:00 Pantoprazole Sodium (Protonix) 40 mg DAILYAC PO Last administered on 12/29/16 07:59; Start 12/29/16 at 07:30 Spironolactone (Aldactone) 25 mg DAILY PO Last administered on 12/29/16 08:46 ; Start 12/29/16 at 09:00 Warfarin Sodium (Coumadin) 4 mg QM-F PO ; Start 12/29/16 at 16:00 Warfarin Sodium (Coumadin) 4 mg QSA PO ; Start 12/30/16 at 16:00 Isosorbide Mononitrate (Imdur) 60 mg DAILY PO Last administered on 12/29/16 08 :44; Start 12/29/16 at 09:00 Losartan Potassium (Cozaar) 50 mg DAILY PO Last administered on 12/29/16 08:45 ; Start 12/29/16 at 09:00 Levofloxacin (Levaquin) 250 mg DAILY06 PO Last administered on 12/29/16 06:30 ; Start 12/29/16 at 06:00; Stop 12/29/16 at 09:49; Status DC Warfarin Sodium (Coumadin Per Pharmacy) 1 each PRN DAILY PRN MC SEE COMMENTS; Start 12/28/16 at 20:45 Warfarin Sodium (Coumadin) 4 mg 1X WARF ONCE PO Last administered on 22:33; Start 12/28/16 at 21:29; Stop 12/28/16 at 21:30; Status DC Insulin Aspart (NovoLOG) 5 units 1X ONCE SQ Last administered on 12/29/16 08: 51; Start 12/29/16 at 08:30; Stop 12/29/16 at 08:31; Status DC Insulin Human Regular (NovoLIN R VIAL) 10 unit 1X ONCE IV Last administered on 12/29/16 12:18; Start 12/29/16 at 12:15; Stop 12/29/16 at 12:16; Status DC Sodium Chloride 1,000 ml @ 75 mls/hr [id number] IV Last administered on 12:11; Start 12/29/16 at 12:00 Lidocaine (Lidoderm) 1 patch PRN DAILY PRN TD PAIN; Start 12/29/16 at 13:30 Active Scripts Active Reported Levaquin (Levofloxacin) 500 Mg Tablet 250 Mg PO DAILY for 14 days order started 12/22/16 Coumadin (Warfarin Sodium) 4 Mg Tablet 1 Tab PO QSA Coumadin (Warfarin Sodium) 4 Mg Tablet 1 Tab PO QM-F fr Mon til Sat Aspirin 325 Mg Tablet 1 Tab PO DAILY Calcium 500 + Vit D 200 Tablet (Calcium Carbonate/Vitamin D3) 1 Each Tablet 1 Each PO DAILY TAKE NEXT DOSE TOMORROW 11/14 IN AM Novolog Flexpen (Insulin Aspart) 100 Unit/1 Ml Insuln.pen 1 Unit SQ 150-200= 4 units 201-250= 7 units 251-300= 10 units 301-350= 13 units 351-400= 16 units 401-450= 18 units 451-500= 20 units 501-550= 22 units notify if bg < 110 NITROGLYCERIN SubLingual (Nitroglycerin) 0.4 Mg Tab.subl 0.4 Mg SL PRN Q5MIN PRN Protonix (Pantoprazole Sodium) 40 Mg Tablet.dr 1 Tab PO DAILY TAKE NEXT DOSE TOMORROW 11/14 IN AM Metoprolol Tartrate 25 Mg Tablet 1 Tab PO BID TAKE NEXT DOSE TONIGHT 710 AT BEDTIME Acetaminophen 500 Mg Tablet 500 Mg PO PRN Q8HRS PRN Potassium Chloride 10 Meq Capsule.er 10 Meq PO DAILY Meloxicam 7.5 Mg Tablet 1 Tab PO DAILY TAKE NEXT DOSE TOMORROW 11/14 IN AM Meclizine Hcl 12.5 Mg Tablet 1 Tab PO BID TAKE NEXT DOSE TONIGHT 07 AT BEDTIME Hydrocodone-Apap 5-325 (Hydrocodone Bit/Acetaminophen) 1 Each Tablet 1 Tab PO Q12HR PRN Spironolactone 25 Mg Tablet 25 Mg PO DAILY TAKE NEXT DOSE TOMORROW 11/14 IN AM Furosemide 80 Mg Tablet 80 Mg PO BID TAKE NEXT DOSE TOMORROW 11/14 IN AM Stool Softener (Docusate Sodium) 100 Mg Capsule 200 Mg PO HS TAKE NEXT DOSE TONIGHT 07 AT BEDTIME Amlodipine Besylate 10 Mg Tablet 10 Mg PO DAILY TAKE NEXT DOSE TOMORROW 11/14 IN AM hold if sbp less than 100 Losartan Potassium 100 Mg Tablet 50 Mg PO DAILY TAKE NEXT DOSE TOMORROW 11/14 IN AM Atorvastatin Calcium 40 Mg Tablet 40 Mg PO HS TAKE NEXT DOSE TONIGHT 0710 AT BEDTIME Isosorbide Mononitrate Er (Isosorbide Mononitrate) 60 Mg Tab.er.24h 60 Mg PO DAILY TAKE NEXT DOSE TOMORROW 11/14 IN AM Vitals/I & O Vital Sign - Last 24 Hours 12/28/16 12/28/16 12/28/16 12/28/16 13:46 14:25 14:46 15:16 Pulse 60 56 54 Resp 20 B/P (MAP) 157/69 (98) 142/67 (92) 126/61 (82) 128/78 (95) Pulse Ox 96 96 97 O2 Delivery Room Air Room Air Room Air Room Air 12/28/16 12/28/16 12/28/16 12/28/16 15:46 16:16 16:46 17:14 Pulse 62 64 64 61 B/P (MAP) 146/72 (96) 126/54 (78) 136/59 (84) 152/68 (96) Pulse Ox 97 98 95 96 O2 Delivery Room Air Room Air Room Air Room Air 12/28/16 12/28/16 12/28/16 12/28/16 17:16 19:38 20:00 20:25 Temp 97.7 97.7 Pulse 60 62 Resp 18 20 B/P (MAP) 161/70 (100) 122/40 (67) Pulse Ox 95 O2 Delivery Room Air Room Air Room Air Room Air O2 Flow Rate 97.0 97.0 12/28/16 12/28/16 12/28/16 12/28/16 20:30 21:15 21:30 22:37 Temp 98.1 98.1 Pulse 62 56 Resp 20 20 18 B/P (MAP) 122/40 114/61 (78) Pulse Ox 95 95 95 O2 Delivery Room Air Room Air Room Air O2 Flow Rate 97.0 97.0 12/29/16 12/29/16 12/29/16 12/29/16 02:53 07:00 08:00 08:44 Temp 97.7 97.3 97.7 97.3 Pulse 52 64 64 Resp 18 18 B/P (MAP) 131/44 (73) 169/47 (87) 169/47 Pulse Ox 95 96 O2 Delivery Room Air Room Air Room Air O2 Flow Rate 97.0 12/29/16 12/29/16 12/29/16 12/29/16 08:45 08:45 08:46 11:00 Temp 97.4 97.4 Pulse 64 64 64 53 Resp 18 B/P (MAP) 169/47 169/47 169/47 116/43 (67) Pulse Ox 94 O2 Delivery Room Air Intake and Output 12/28/16 12/28/16 12/29/16 15:00 23:00 07:00 Intake Total 50 ml Output Total 1 ml Balance 50 ml -1 ml ALHAJI TONG MD Dec 29, 2016 13:31
--- NOTE | 2016-12-29 13:48 | CARD ---
APPROVED REPORT EXAM: Two-dimensional and M-mode echocardiogram with Doppler and color Doppler. Other Information Quality : GoodHR: 53bpm Rhythm : Bradycardia INDICATION Congestive Heart Failure Hx. mitral valve vegetations 2D DIMENSIONS RVDd3.4 (2.9-3.5cm)Left Atrium(2D)5.8 (1.6-4.0cm) IVSd1.2 (0.7-1.1cm)Aortic Root(2D)2.8 (2.0-3.7cm) LVDd4.7 (3.9-5.9cm)LVOT Diameter2.3 (1.8-2.4cm) PWd1.2 (0.7-1.1cm)LVDs3.5 (2.5-4.0cm) FS (%) 26.8 %SV54.6 ml LVEF(%)52.0 (>50%) Aortic Valve AoV Peak Amilcar.135.7cm/sAoV VTI30.9cm AO Peak GR.7.4mmHgLVOT Peak Amilcar.95.4cm/s AO Mean GR.4mmHgAVA (VMAX)2.93cm2 AI P 1/2 [id number] Mitral Valve MV E Phcowcru17.1cm/sMV E Peak Gr.5mmHg MV DECEL [id number] A Jfaakeof78.8cm/s MV E Mean Gr.2mmHgE/A Ratio0.9 MV A [id number] Pulmonary Valve PV Peak Lmtlhclr991.6cm/s Tricuspid Valve TR P. Zskshoab776yz/sTR Peak Gr.36mmHg Pulmonary Vein S1 Sxxyttry40.5cm/sD2 Yripnsft19.3cm/s PVa [id number] LEFT VENTRICLE The left ventricle is normal size. There is mild concentric left ventricular hypertrophy. Left ventri urmila systolic function is low normal. The Ejection Fraction is 52 % but has improved from previous exa m done in November of 2016 (40 %). There is mild hypokinesis in the basal septal and inferobasal chapa. T ransmitral Doppler flow pattern is Grade I-abnormal relaxation pattern. No left ventricle thrombus no kennedy on this study. RIGHT VENTRICLE The right ventricle is normal size. There is normal right ventricular wall thickness. The right ventr icular systolic function is normal. ATRIA The left atrium is severely dilated. The right atrium size is normal. The interatrial septum is intac t with no evidence for an atrial septal defect or patent foramen ovale as noted on 2-D or Doppler chrsi ging. AORTIC VALVE The aortic valve is mildly sclerotic. The aortic valve is trileaflet. Doppler and Color Flow revealed mild aortic regurgitation. There is no significant aortic valvular stenosis. MITRAL VALVE Mitral annular calcification is moderate. The mitral valve leaflets are thickened and calcified. Comp marquez mitral valve structure due to significant sclerosis and scarring of both leaflets and chordae ten dineae. Small vegetation/s cannot be ruled out at this time. There is no evidence of mitral valve pro lapse. There is no mitral valve stenosis. Doppler and Color Flow revealed moderate mitral regurgitati on. The mitral regurgitant jet is anteriorly directed. TRICUSPID VALVE Doppler and Color Flow revealed mild tricuspid regurgitation. The pulmonary artery systolic pressure is estimated at 39 mmHg. There is mild pulmonary hypertension. PULMONIC VALVE The pulmonic valve is not well visualized but appears to open adequately. Doppler and Color Flow reve aled trace pulmonic valvular regurgitation. There is no pulmonic valvular stenosis by spectral Dopple r. GREAT VESSELS The aortic root is normal in size. The ascending aorta is normal in size. The pulmonary artery is nor mal. The IVC is normal in size and collapses >50% with inspiration. PERICARDIAL EFFUSION There is no evidence of significant pericardial effusion. Critical Notification Critical Value: No <Conclusion> Left ventricle systolic function is low normal. The Ejection Fraction is 52 % but has improved from previous exam done in November of 2016 (40 %). Transmitral Doppler flow pattern is Grade I-abnormal relaxation pattern. The left atrium is severely dilated. The right atrium size is normal. Doppler and Color Flow revealed mild aortic regurgitation. The aortic valve is mildly sclerotic. The aortic valve is trileaflet. Mitral annular calcification is moderate. The mitral valve leaflets are thickened and calcified. Complex mitral valve structure due to signific ant sclerosis and scarring of both leaflets and chordae tendineae. Small vegetation/s cannot be rule d out at this time. Doppler and Color Flow revealed moderate mitral regurgitation. The mitral regurgitant jet is anterior ly directed. Doppler and Color Flow revealed mild tricuspid regurgitation. The pulmonary artery systolic pressure is estimated at 39 mmHg. There is mild pulmonary hypertension. The pulmonic valve is not well visualized but appears to open adequately. Doppler and Color Flow revealed trace pulmonic valvular regurgitation. There is no pulmonic valvular stenosis by spectral Doppler. There is no evidence of significant pericardial effusion.
[2016-12-29 15:00] VITALS: BP 113/23
--- NOTE | 2016-12-29 15:16 | CONS ---
DATE OF CONSULTATION: 12/29/2016 REQUESTING PHYSICIAN: Dr. Cast. REASON FOR CONSULTATION: History of endocarditis. ATTENDING PHYSICIAN: Dr. Raza Fairchild. HISTORY OF PRESENT ILLNESS: This is an 81-year-old female with history of endocarditis in April last year who has been adequately treated and repeat cultures multiple have been negative, who comes in with blood sugar fluctuating between low to 600. The patient had vomited once. The patient denies any fever or chills. Denies any urinary symptoms, denies any chest pain, abdominal pain, shortness of breath, headache or visual symptoms. The patient has been put on Levaquin for some reason, thinking UTI. PAST MEDICAL AND SURGICAL HISTORY: Positive for coronary artery disease, congestive heart failure, diabetes, hypertension, history of breast cancer, has lumpectomy done. 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 SOCIAL HISTORY: Negative for smoking, alcohol, illicit drug use. The patient is now a permanent detention resident. CURRENT MEDICATIONS: Reviewed. The patient is on Levaquin. REVIEW OF SYSTEMS: As per HPI, all other systems reviewed are negative. PHYSICAL EXAMINATION: GENERAL: Alert, oriented female, not in distress. VITAL SIGNS: Stable, afebrile. HEENT: NAD. NECK: Supple, no JVP, no lymphadenopathy. LUNGS: Clear. HEART: S1, S2 regular. ABDOMEN: Benign. EXTREMITIES: No cyanosis. SKIN: Unremarkable other than chronic venous insufficiency changes, especially on the left leg. NEUROLOGIC: The patient is neurologically intact. LABORATORY DATA: White count is normal. Her platelets are normal. BUN 58, creatinine 1.6. Urinalysis unremarkable. IMPRESSION: 1. Hyperglycemia. 2. Renal insufficiency. 3. History of endocarditis. No evidence or indication for any further workup on endocarditis. RECOMMENDATIONS: We would discontinue Levaquin, do not see the need for any antibiotics or any further workup in that direction. The patient also does not have urinary tract infection. Thank you very much, Dr. Cast and Dr. Fairchild for giving me the opportunity to participate in this patient's care. ERINN BARRIOS MD DR: SVEN/colten JOB#: [id number] / [id number]
[2016-12-29] MEDS ORDERED: DEXTROSE 50% 25 GM / 50ML DISP.SYRIN. IV PRN (16:00)
[2016-12-29] MEDS: WARFARIN 4 MG TABLET. PO SCH (17:27)
[2016-12-29 19:45] VITALS: BP 120/43
[2016-12-29] MEDS: DOCUSATE SODIUM 100 MG CAPSULE. PO SCH (20:30)
[2016-12-29] MEDS: ATORVASTATIN CALCIUM 40 MG TABLET. PO SCH (20:30)
[2016-12-29] MEDS: INSULIN DETEMIR 300 UNITS/3 ML INSULN.PEN. SQ SCH (20:34)
[2016-12-29] MEDS: HYDROcodone/APAP 5/325MG 1 TAB TABLET PO PRN (21:48)
[2016-12-29 22:41] VITALS: BP 147/45
[2016-12-30] MEDS: IV NORMAL SALINE 1000ML BAG 1,000 ML IV SCH (01:25)
--- NOTE | 2016-12-30 01:37 | ACF ---
Admission Forms Criteria DIABETES Clinical Indications for Admission to Inpatient Care ([facility]/check or initial the applicable condition/ criteria) Admission is indicated by 1 or more of the following(1)(2)(3)(4)(5): [ ]a) Diabetic ketoacidosis as indicated by ALL the following(9): [ ]i) Hyperglycemia (eg, plasma glucose greater than 200 mg/ dL (11.1 mmol/L)) [ ]ii) Acidosis (eg, arterial or venous pH less than 7.30, serum bicarbonate level less than 15 mEq/L (mmol/L)) [A] [ ]iii) Moderate ketonuria or ketonemia [ ]b) Hyperglycemic hyperosmolar state as indicated by ALL of the following: [ ]i) Plasma glucose greater than 600 mg/dL (33.3 mmol/L) [ ]ii) Serum osmolality greater than 320 mOsm/kg (mmol/kg) [ ]iii) Neurologic dysfunction (eg, stupor, coma, hemiparesis , seizure)(14) [X]c) Hyperglycemia requiring inpatient care as indicated by 1 or more of the following: [ ]i) Altered mental status that is severe or persistent [ ]ii) Dehydration that is severe or persistent [ ]iii) Vomiting that is severe or persistent [X]iv) Unexplained fever or severe infection [ ]v) Significant electrolyte abnormality(e.g., hypokalemia, hyperkalemia, hypernatremia) not responsive to outpatient and observation care treatment Extended stay beyond goal length of stay may be needed for(3)(20) [ ]a) Treatment of precipitating causes(2) [ ]b) Development of significant hypoglycemia(22)(23) [ ]c) Complications of treatment(24) [ ]d) Complications of decompensated diabetes (e.g., acute gastric dilatation, persistent metabolic or neurologic derangement) (25) [ ]e) Active Comorbidities [ ]f) Older patients The original [employer] content created by [employer] has been revised. The portions of the content which have been revised are identified through the use of italic text,and [facility] Coronel[facility]OFFER has neither reviewed nor approved the modified material. All other unmodified content is copyright [facility] [employer]. Please see references footnoted in the original [facility] [employer] edition 2015 Admission Criteria Met?: Yes JANE RAMOS Dec 30, 2016 01:37
[2016-12-30 03:30] VITALS: BP 152/90
[2016-12-30 07:00] VITALS: BP 146/47
[2016-12-30] MEDS: ISOSORBIDE MONONITRATE ER 30 MG TAB.ER.24H PO SCH (08:30)
[2016-12-30] MEDS: PANTOPRAZOLE 40 MG TABLET.DR. PO SCH (08:30)
[2016-12-30] MEDS: ASPIRIN 325 MG TABLET PO SCH (08:30)
[2016-12-30] MEDS: CALCIUM CARB/VIT D3 500/200 TABLET. PO SCH (08:31)
[2016-12-30] MEDS: MECLIZINE HCL 12.5 MG TABLET. PO SCH ×2 (08:31→20:56)
[2016-12-30] MEDS: amLODIPine BESYLATE 10 MG TABLET PO SCH (08:31)
[2016-12-30] MEDS: METOPROLOL TART IMMED RELEASE 25 MG TABLET. PO SCH ×2 (08:31→20:57)
[2016-12-30] MEDS: FUROSEMIDE 80 MG TABLET. PO SCH ×2 (08:31→15:00)
[2016-12-30] MEDS: SPIRONOLACTONE 25 MG TABLET PO SCH (08:31)
[2016-12-30] MEDS: INSULIN ASPART 300 UNITS/3 ML INSULN.PEN SQ SCH ×7 (08:40→21:00)
[2016-12-30] MEDS: LOSARTAN POTASSIUM 50 MG TABLET. PO SCH (09:25)
[2016-12-30] MEDS: LIDOCAINE (700MG/PATCH) PATCH. TD PRN (09:27)
[2016-12-30] MEDS: HYDROcodone/APAP 5/325MG 1 TAB TABLET PO PRN ×2 (09:31→21:46)
[2016-12-30 11:15] LABS: CALCIUM 9.1 mg/dL (8.5-10.1); CREATININE 1.6 mg/dL (0.6-1.0); POTASSIUM 4.5 mmol/L (3.5-5.1)
[2016-12-30 11:25] LABS: INR 2.7 (0.8-1.1)
[2016-12-30 11:35] VITALS: BP 114/35
--- NOTE | 2016-12-30 12:03 | PDOC ---
PROGRESS NOTES Subjective Subjective The patient feels a little better today. Her blood sugars have been running over 300. No cardiac complaints at this time. Objective Objective Vital Signs Date Time Temp Pulse Resp B/P (MAP) Pulse Ox O2 Delivery O2 Flow Rate FiO2 12/30/16 11:35 98.1 55 16 114/35 (61) 95 Room Air 98.1 12/30/16 10:31 97.0 Intake and Output 12/30/16 07:00 Intake Total 1781 ml Output Total 6 ml Balance 1775 ml Intake Oral 999 ml IV Total 782 ml Output Urine Total 5 ml Stool Total 1 ml # Voids 4 Physical Exam Physical Exam No significant changes and cardiac exam Assessment Assessment The patient appears to be compensated cardiac-ramos. However I am concerned that the blood sugars being out of control may be a manifestation of an ongoing infection. We'll leave up to infectious disease whether or not to add antibiotics. The case has been discussed with Dr. Fairchild Problems Medical Problems: (1) UTI (urinary tract infection) Status: Acute Comment Review of Relevant I have reviewed the following items alejandra (where applicable) has been applied. Labs Laboratory Tests Test 12/28/16 13:55 12/28/16 14:24 12/28/16 18:53 12/28/16 18:55 White Blood Count 6.8 x10^3/uL (4.0-11.0) Red Blood Count 3.59 x10^6/uL (3.50-5.40) Hemoglobin 10.2 g/dL (12.0-15.5) Hematocrit 31.1 % (36.0-47.0) Mean Corpuscular Volume 87 fL (79-100) Mean Corpuscular Hemoglobin 29 pg (25-35) Mean Corpuscular Hemoglobin Concent 33 g/dL (31-37) Red Cell Distribution Width 16.7 % (11.5-14.5) Platelet Count 330 x10^3/uL (140-400) Neutrophils (%) (Auto) 73 % (31-73) Lymphocytes (%) (Auto) 16 % (24-48) Monocytes (%) (Auto) 7 % (0-9) Eosinophils (%) (Auto) 3 % (0-3) Basophils (%) (Auto) 0 % (0-3) Neutrophils # (Auto) 5.0 x10^3uL (1.8-7.7) Lymphocytes # (Auto) 1.1 x10^3/uL (1.0-4.8) Monocytes # (Auto) 0.5 x10^3/uL (0.0-1.1) Eosinophils # (Auto) 0.2 x10^3/uL (0.0-0.7) Basophils # (Auto) 0.0 x10^3/uL (0.0-0.2) Prothrombin Time 24.9 SEC (11.7-14.0) Prothromb Time International Ratio 2.4 (0.8-1.1) Sodium Level 129 mmol/L (136-145) Potassium Level 5.2 mmol/L (3.5-5.1) Chloride Level 93 mmol/L (98-107) Carbon Dioxide Level 31 mmol/L (21-32) Anion Gap 5 (6-14) Blood Urea Nitrogen 67 mg/dL (7-20) Creatinine 2.0 mg/dL (0.6-1.0) Estimated GFR (Cockcroft-Gault) 24.0 Glucose Level 636 mg/dL (70-99) 592 mg/dL (70-99) Calcium Level 10.3 mg/dL (8.5-10.1) Magnesium Level 2.3 mg/dL (1.8-2.4) Total Bilirubin 0.3 mg/dL (0.2-1.0) Direct Bilirubin 0.1 mg/dL (0.0-0.2) Aspartate Amino Transf (AST/SGOT) 11 U/L (15-37) Alanine Aminotransferase (ALT/SGPT) 18 U/L (14-59) Alkaline Phosphatase 148 U/L (46-116) Creatine Kinase 22 U/L (26-192) Creatine Kinase MB (Mass) 0.9 ng/mL (0.0-3.6) Creatine Kinase MB Relative Index 4.1 % (0-4) Troponin I Quantitative 0.022 ng/mL (0.000-0.055) OG-Sqb-X-Type Natriuretic Peptide 3568 pg/mL (0-449) Total Protein 8.3 g/dL (6.4-8.2) Albumin 2.7 g/dL (3.4-5.0) Lipase 97 U/L (73-393) Thyroid Stimulating Hormone (TSH) 3.068 uIU/mL (0.358-3.74) Urine Collection Type Unknown Urine Color Yellow Urine Clarity Clear Urine pH 6.5 Urine Specific Kelford 1.010 Urine Protein Negative mg/dL (NEG-TRACE) Urine Glucose (UA) >=1000 mg/dL (NEG) Urine Ketones (Stick) Negative mg/dL (NEG) Urine Blood Negative (NEG) Urine Nitrite Negative (NEG) Urine Bilirubin Negative (NEG) Urine Urobilinogen Dipstick 0.2 mg/dL (0.2 mg/dL) Urine Leukocyte Esterase Trace (NEG) Urine RBC Occ /HPF (0-2) Urine WBC 1-4 /HPF (0-4) Urine Squamous Epithelial Cells Mod /LPF Urine Bacteria Few /HPF (0-FEW) Urine Hyaline Casts Moderate /HPF Glucose (Fingerstick) 591 mg/dL (70-99) Test 12/28/16 20:32 12/28/16 20:45 12/28/16 21:12 12/28/16 22:05 Glucose (Fingerstick) 465 mg/dL (70-99) 433 mg/dL (70-99) Nasal Screen MRSA (PCR) Negative (Negative) Troponin I Quantitative 0.024 ng/mL (0.000-0.055) Test 12/29/16 01:13 12/29/16 07:47 12/29/16 08:00 12/29/16 11:27 Glucose (Fingerstick) 287 mg/dL (70-99) 395 mg/dL (70-99) 442 mg/dL (70-99) White Blood Count 8.0 x10^3/uL (4.0-11.0) Red Blood Count 3.71 x10^6/uL (3.50-5.40) Hemoglobin 10.9 g/dL (12.0-15.5) Hematocrit 31.5 % (36.0-47.0) Mean Corpuscular Volume 85 fL (79-100) Mean Corpuscular Hemoglobin 29 pg (25-35) Mean Corpuscular Hemoglobin Concent 35 g/dL (31-37) Red Cell Distribution Width 16.8 % (11.5-14.5) Platelet Count 345 x10^3/uL (140-400) Neutrophils (%) (Auto) 71 % (31-73) Lymphocytes (%) (Auto) 18 % (24-48) Monocytes (%) (Auto) 6 % (0-9) Eosinophils (%) (Auto) 4 % (0-3) Basophils (%) (Auto) 1 % (0-3) Neutrophils # (Auto) 5.7 x10^3uL (1.8-7.7) Lymphocytes # (Auto) 1.4 x10^3/uL (1.0-4.8) Monocytes # (Auto) 0.5 x10^3/uL (0.0-1.1) Eosinophils # (Auto) 0.4 x10^3/uL (0.0-0.7) Basophils # (Auto) 0.1 x10^3/uL (0.0-0.2) Prothrombin Time 24.9 SEC (11.7-14.0) Prothromb Time International Ratio 2.4 (0.8-1.1) Sodium Level 132 mmol/L (136-145) Potassium Level 5.1 mmol/L (3.5-5.1) Chloride Level 94 mmol/L (98-107) Carbon Dioxide Level 31 mmol/L (21-32) Anion Gap 7 (6-14) Blood Urea Nitrogen 58 mg/dL (7-20) Creatinine 1.6 mg/dL (0.6-1.0) Estimated GFR (Cockcroft-Gault) 31.0 Glucose Level 373 mg/dL (70-99) Calcium Level 9.6 mg/dL (8.5-10.1) Troponin I Quantitative < 0.017 ng/mL (0.000-0.055) Test 12/29/16 14:04 12/29/16 16:48 12/29/16 19:42 12/29/16 22:44 Glucose (Fingerstick) 298 mg/dL (70-99) 443 mg/dL (70-99) 393 mg/dL (70-99) 188 mg/dL (70-99) Test 12/30/16 07:51 12/30/16 10:30 12/30/16 11:24 Glucose (Fingerstick) 161 mg/dL (70-99) 311 mg/dL (70-99) Prothrombin Time 27.0 SEC (11.7-14.0) Prothromb Time International Ratio 2.7 (0.8-1.1) Sodium Level 132 mmol/L (136-145) Potassium Level 4.5 mmol/L (3.5-5.1) Chloride Level 97 mmol/L (98-107) Carbon Dioxide Level 27 mmol/L (21-32) Anion Gap 8 (6-14) Blood Urea Nitrogen 60 mg/dL (7-20) Creatinine 1.6 mg/dL (0.6-1.0) Estimated GFR (Cockcroft-Gault) 31.0 Glucose Level 320 mg/dL (70-99) Calcium Level 9.1 mg/dL (8.5-10.1) Laboratory Tests Test 12/29/16 14:04 12/29/16 16:48 12/29/16 19:42 12/29/16 22:44 Glucose (Fingerstick) 298 mg/dL (70-99) 443 mg/dL (70-99) 393 mg/dL (70-99) 188 mg/dL (70-99) Test 12/30/16 07:51 12/30/16 10:30 12/30/16 11:24 Glucose (Fingerstick) 161 mg/dL (70-99) 311 mg/dL (70-99) Prothrombin Time 27.0 SEC (11.7-14.0) Prothromb Time International Ratio 2.7 (0.8-1.1) Sodium Level 132 mmol/L (136-145) Potassium Level 4.5 mmol/L (3.5-5.1) Chloride Level 97 mmol/L (98-107) Carbon Dioxide Level 27 mmol/L (21-32) Anion Gap 8 (6-14) Blood Urea Nitrogen 60 mg/dL (7-20) Creatinine 1.6 mg/dL (0.6-1.0) Estimated GFR (Cockcroft-Gault) 31.0 Glucose Level 320 mg/dL (70-99) Calcium Level 9.1 mg/dL (8.5-10.1) Microbiology 12/28/16 Blood Culture - Preliminary, Resulted NO GROWTH AFTER 1 DAY 12/28/16 Urine Culture - Preliminary, Resulted 12/28/16 Urine Culture Result 1 (SHERRIE) - Preliminary, Resulted Medications Current Medications Ceftriaxone Sodium 50 ml @ 100 mls/hr 1X ONCE IV Last administered on t 15:29; Start 12/28/16 at 15:15; Stop 12/28/16 at 15:44; Status DC Insulin Aspart (NovoLOG) 0-7 UNITS TIDWMEALS SQ Last administered on 12/29/16 08:08; Start 12/28/16 at 17:00; Stop 12/29/16 at 16:00; Status DC Dextrose (Dextrose 50%-Water Syringe) 12.5 gm PRN Q15MIN PRN IV SEE COMMENTS; Start 12/28/16 at 15:30; Stop 12/29/16 at 17:02; Status DC Sodium Chloride 1,000 ml @ 1,000 mls/hr 1X ONCE IV Last administered on 15:48; Start 12/28/16 at 15:45; Stop 12/28/16 at 16:44; Status DC Ondansetron HCl (Zofran) 4 mg PRN Q8HRS PRN IV NAUSEA/VOMITING; Start 12/28/16 at 16:30; Stop 12/29/16 at 16:29; Status DC Insulin Aspart (NovoLOG) 10 units 1X ONCE SQ Last administered on 12/28/16 17 :35; Start 12/28/16 at 17:15; Stop 12/28/16 at 17:16; Status DC Insulin Aspart (NovoLOG) 10 units 1X ONCE SQ Last administered on 12/28/16 19 :24; Start 12/28/16 at 19:15; Stop 12/28/16 at 19:16; Status DC Acetaminophen (Tylenol) 500 mg PRN Q8HRS PRN PO PAIN Last administered on 20:01; Start 12/28/16 at 20:00 Amlodipine Besylate (Norvasc) 10 mg DAILY PO Last administered on 12/30/16 08: 31; Start 12/29/16 at 09:00 Aspirin (Derek Aspirin) 325 mg DAILYWBKFT PO Last administered on 12/30/16 08: 30; Start 12/29/16 at 08:00 Atorvastatin Calcium (Lipitor) 40 mg HS PO Last administered on 12/29/16 20:30 ; Start 12/28/16 at 21:00 Calcium/Vitamin D (Oscal D 500mg/ 200uts) 1 tab DAILY PO Last administered on 08:31; Start 12/29/16 at 09:00 Docusate Sodium (Colace) 200 mg HS PO Last administered on 12/29/16 20:30; Start 12/28/16 at 21:00 Furosemide (Lasix) 80 mg BID92 PO Last administered on 12/30/16 08:31; Start 12/29/16 at 09:00 Acetaminophen/ Hydrocodone Bitart (Lortab 5/325) 1 tab Q12HR PRN PO PAIN Last administered on 12/30/16 09:31; Start 12/28/16 at 20:00 Meclizine HCl (Antivert) 12.5 mg BID PO Last administered on 12/30/16 08:31; Start 12/28/16 at 21:00 Meloxicam (Mobic) 7.5 mg DAILY PO Last administered on 12/29/16 08:45; Start 12/29/16 at 09:00; Stop 12/29/16 at 11:53; Status DC Metoprolol Tartrate (Lopressor) 25 mg BID PO Last administered on 12/30/16 08: 31; Start 12/28/16 at 21:00 Nitroglycerin (Nitrostat) 0.4 mg PRN Q5MIN PRN SL CHEST PAIN; Start 12/28/16 at 20:00 Pantoprazole Sodium (Protonix) 40 mg DAILYAC PO Last administered on 12/30/16 08:30; Start 12/29/16 at 07:30 Spironolactone (Aldactone) 25 mg DAILY PO Last administered on 12/30/16 08:31 ; Start 12/29/16 at 09:00 Warfarin Sodium (Coumadin) 4 mg QM-F PO Last administered on 12/29/16 17:27; Start 12/29/16 at 16:00 Warfarin Sodium (Coumadin) 4 mg QSA PO ; Start 12/30/16 at 16:00 Isosorbide Mononitrate (Imdur) 60 mg DAILY PO Last administered on 12/30/16 08 :30; Start 12/29/16 at 09:00 Losartan Potassium (Cozaar) 50 mg DAILY PO Last administered on 12/30/16 09:25 ; Start 12/29/16 at 09:00 Levofloxacin (Levaquin) 250 mg DAILY06 PO Last administered on 12/29/16 06:30 ; Start 12/29/16 at 06:00; Stop 12/29/16 at 09:49; Status DC Warfarin Sodium (Coumadin Per Pharmacy) 1 each PRN DAILY PRN MC SEE COMMENTS Last administered on 12/29/16 14:05; Start 12/28/16 at 20:45 Warfarin Sodium (Coumadin) 4 mg 1X WARF ONCE PO Last administered on 22:33; Start 12/28/16 at 21:29; Stop 12/28/16 at 21:30; Status DC Insulin Aspart (NovoLOG) 5 units 1X ONCE SQ Last administered on 12/29/16 08: 51; Start 12/29/16 at 08:30; Stop 12/29/16 at 08:31; Status DC Insulin Human Regular (NovoLIN R VIAL) 10 unit 1X ONCE IV Last administered on 12/29/16 12:18; Start 12/29/16 at 12:15; Stop 12/29/16 at 12:16; Status DC Sodium Chloride 1,000 ml @ 75 mls/hr [id number] IV Last administered on 01:25; Start 12/29/16 at 12:00 Lidocaine (Lidoderm) 1 patch PRN DAILY PRN TD PAIN Last administered on 09:27; Start 12/29/16 at 13:30 Insulin Detemir (Levemir) 20 units QHS SQ Last administered on 12/29/16 20:34 ; Start 12/29/16 at 21:00 Insulin Aspart (NovoLOG) 6 units TIDAC SQ Last administered on 12/30/16 11:47 ; Start 12/29/16 at 16:30 Insulin Aspart (NovoLOG) 0-9 UNITS QIDACHS SQ Last administered on 12/30/16 11 :46; Start 12/29/16 at 16:30 Dextrose (Dextrose 50%-Water Syringe) 12.5 gm PRN Q15MIN PRN IV SEE COMMENTS; Start 12/29/16 at 16:00 Insulin Aspart (NovoLOG) 20 units 1X ONCE SQ Last administered on 12/29/16 17 :32; Start 12/29/16 at 17:00; Stop 12/29/16 at 17:02; Status DC Insulin Aspart (NovoLOG) 15 units 1X ONCE SQ Last administered on 12/29/16t 20 :58; Start 12/29/16 at 21:00; Stop 12/29/16 at 21:01; Status DC Active Scripts Active Reported Levaquin (Levofloxacin) 500 Mg Tablet 250 Mg PO DAILY for 14 days order started 12/22/16 Coumadin (Warfarin Sodium) 4 Mg Tablet 1 Tab PO QSA Coumadin (Warfarin Sodium) 4 Mg Tablet 1 Tab PO QM-F fr Mon til Sat Aspirin 325 Mg Tablet 1 Tab PO DAILY Calcium 500 + Vit D 200 Tablet (Calcium Carbonate/Vitamin D3) 1 Each Tablet 1 Each PO DAILY TAKE NEXT DOSE TOMORROW 11/14 IN AM Novolog Flexpen (Insulin Aspart) 100 Unit/1 Ml Insuln.pen 1 Unit SQ 150-200= 4 units 201-250= 7 units 251-300= 10 units 301-350= 13 units 351-400= 16 units 401-450= 18 units 451-500= 20 units 501-550= 22 units notify if bg < 110 NITROGLYCERIN SubLingual (Nitroglycerin) 0.4 Mg Tab.subl 0.4 Mg SL PRN Q5MIN PRN Protonix (Pantoprazole Sodium) 40 Mg Tablet.dr 1 Tab PO DAILY TAKE NEXT DOSE TOMORROW 11/14 IN AM Metoprolol Tartrate 25 Mg Tablet 1 Tab PO BID TAKE NEXT DOSE TONIGHT 7/10 AT BEDTIME Acetaminophen 500 Mg Tablet 500 Mg PO PRN Q8HRS PRN Potassium Chloride 10 Meq Capsule.er 10 Meq PO DAILY Meloxicam 7.5 Mg Tablet 1 Tab PO DAILY TAKE NEXT DOSE TOMORROW 11/14 IN AM Meclizine Hcl 12.5 Mg Tablet 1 Tab PO BID TAKE NEXT DOSE TONIGHT 0710 AT BEDTIME Hydrocodone-Apap 5-325 (Hydrocodone Bit/Acetaminophen) 1 Each Tablet 1 Tab PO Q12HR PRN Spironolactone 25 Mg Tablet 25 Mg PO DAILY TAKE NEXT DOSE TOMORROW 11/14 IN AM Furosemide 80 Mg Tablet 80 Mg PO BID TAKE NEXT DOSE TOMORROW 11/14 IN AM Stool Softener (Docusate Sodium) 100 Mg Capsule 200 Mg PO HS TAKE NEXT DOSE TONIGHT 07/10 AT BEDTIME Amlodipine Besylate 10 Mg Tablet 10 Mg PO DAILY TAKE NEXT DOSE TOMORROW 11/14 IN AM hold if sbp less than 100 Losartan Potassium 100 Mg Tablet 50 Mg PO DAILY TAKE NEXT DOSE TOMORROW 11/14 IN AM Atorvastatin Calcium 40 Mg Tablet 40 Mg PO HS TAKE NEXT DOSE TONIGHT 11/13 AT BEDTIME Isosorbide Mononitrate Er (Isosorbide Mononitrate) 60 Mg Tab.er.24h 60 Mg PO DAILY TAKE NEXT DOSE TOMORROW 11/14 IN AM Vitals/I & O Vital Sign - Last 24 Hours 12/29/16 12/29/16 12/29/16 12/29/16 15:00 19:45 20:09 20:31 Temp 97.2 98.0 97.2 98.0 Pulse 55 68 68 Resp 18 16 B/P (MAP) 113/23 (53) 120/43 (68) 120/43 Pulse Ox 95 93 O2 Delivery Room Air Room Air Room Air 12/29/16 12/29/16 12/29/16 12/30/16 21:48 22:41 22:57 03:30 Temp 97.5 96.4 97.5 96.4 Pulse 60 58 Resp 20 18 20 16 B/P (MAP) 147/45 (79) 152/90 (110) Pulse Ox 98 97 O2 Delivery Room Air Room Air Room Air 12/30/16 12/30/16 12/30/16 12/30/16 07:00 08:30 08:31 08:31 Temp 96.1 96.1 Pulse 62 58 58 58 Resp 17 B/P (MAP) 146/47 (80) 152/90 152/90 152/90 Pulse Ox 100 O2 Delivery Room Air 12/30/16 12/30/16 12/30/16 12/30/16 09:25 09:31 10:31 11:35 Temp 98.1 98.1 Pulse 58 55 Resp 16 B/P (MAP) 152/90 114/35 (61) Pulse Ox 100 100 95 O2 Delivery Room Air Room Air Room Air O2 Flow Rate 97.0 97.0 Intake and Output 12/29/16 12/29/16 12/30/16 15:00 23:00 07:00 Intake Total 620 ml 1161 ml Output Total 1 ml 5 ml Balance 619 ml 1156 ml WILLY GURROLA MD Dec 30, 2016 12:03
--- NOTE | 2016-12-30 12:47 | PDOC ---
PROGRESS NOTES Chief Complaint Chief Complaint Uncontrolled DM2 Hyponatremia GRACIELA on ckd3 H/o endocarditis H/o CAD with pci HTN GERD H/o DVT on warfain History of Present Illness History of Present Illness Pt laying in bed and talkative. Glucose fluctuating. Vitals Vitals Vital Signs Date Time Temp Pulse Resp B/P (MAP) Pulse Ox O2 Delivery O2 Flow Rate FiO2 12/30/16 11:35 98.1 55 16 114/35 (61) 95 Room Air 98.1 12/30/16 10:31 97.0 Physical Exam General: Alert, Oriented X3, Cooperative, No acute distress Heart: Regular rate, Normal S1, Normal S2 Lungs: Clear, Other (No respiratory distress noted on exam) Abdomen: Normal bowel sounds, Soft, No tenderness Extremities: No clubbing, No cyanosis, No edema Skin: No rashes, No breakdown Labs LABS Laboratory Tests Test 12/29/16 14:04 12/29/16 16:48 12/29/16 19:42 12/29/16 22:44 Glucose (Fingerstick) 298 mg/dL (70-99) 443 mg/dL (70-99) 393 mg/dL (70-99) 188 mg/dL (70-99) Test 12/30/16 07:51 12/30/16 10:30 12/30/16 11:24 Glucose (Fingerstick) 161 mg/dL (70-99) 311 mg/dL (70-99) Prothrombin Time 27.0 SEC (11.7-14.0) Prothromb Time International Ratio 2.7 (0.8-1.1) Sodium Level 132 mmol/L (136-145) Potassium Level 4.5 mmol/L (3.5-5.1) Chloride Level 97 mmol/L (98-107) Carbon Dioxide Level 27 mmol/L (21-32) Anion Gap 8 (6-14) Blood Urea Nitrogen 60 mg/dL (7-20) Creatinine 1.6 mg/dL (0.6-1.0) Estimated GFR (Cockcroft-Gault) 31.0 Glucose Level 320 mg/dL (70-99) Calcium Level 9.1 mg/dL (8.5-10.1) Review of Systems Review of Systems C/o fatigue c/o hunger Assessment and Plan Assessmemt and Plan cc: Uncontrolled DM2: Sliding scale. Probable d/c when glucose <200 1. Hyponatremia: monitor 2. GRACIELA on ckd3: monitor. Consult renal 3. H/o endocarditis: discussed w/ Dr. Cast. Concerned about possible recurring bacterial endocarditis. Will await further ID input 4. H/o CAD with pci: cardiac consulted 5. HTN: monitor 6. GERD: monitor 7. H/o DVT on warfain: monitor 8. PTOT Problems: Comment Review of Relevant I have reviewed the following items alejandra (where applicable) has been applied. Labs Laboratory Tests Test 12/28/16 13:55 12/28/16 14:24 12/28/16 18:53 12/28/16 18:55 White Blood Count 6.8 x10^3/uL (4.0-11.0) Red Blood Count 3.59 x10^6/uL (3.50-5.40) Hemoglobin 10.2 g/dL (12.0-15.5) Hematocrit 31.1 % (36.0-47.0) Mean Corpuscular Volume 87 fL (79-100) Mean Corpuscular Hemoglobin 29 pg (25-35) Mean Corpuscular Hemoglobin Concent 33 g/dL (31-37) Red Cell Distribution Width 16.7 % (11.5-14.5) Platelet Count 330 x10^3/uL (140-400) Neutrophils (%) (Auto) 73 % (31-73) Lymphocytes (%) (Auto) 16 % (24-48) Monocytes (%) (Auto) 7 % (0-9) Eosinophils (%) (Auto) 3 % (0-3) Basophils (%) (Auto) 0 % (0-3) Neutrophils # (Auto) 5.0 x10^3uL (1.8-7.7) Lymphocytes # (Auto) 1.1 x10^3/uL (1.0-4.8) Monocytes # (Auto) 0.5 x10^3/uL (0.0-1.1) Eosinophils # (Auto) 0.2 x10^3/uL (0.0-0.7) Basophils # (Auto) 0.0 x10^3/uL (0.0-0.2) Prothrombin Time 24.9 SEC (11.7-14.0) Prothromb Time International Ratio 2.4 (0.8-1.1) Sodium Level 129 mmol/L (136-145) Potassium Level 5.2 mmol/L (3.5-5.1) Chloride Level 93 mmol/L (98-107) Carbon Dioxide Level 31 mmol/L (21-32) Anion Gap 5 (6-14) Blood Urea Nitrogen 67 mg/dL (7-20) Creatinine 2.0 mg/dL (0.6-1.0) Estimated GFR (Cockcroft-Gault) 24.0 Glucose Level 636 mg/dL (70-99) 592 mg/dL (70-99) Calcium Level 10.3 mg/dL (8.5-10.1) Magnesium Level 2.3 mg/dL (1.8-2.4) Total Bilirubin 0.3 mg/dL (0.2-1.0) Direct Bilirubin 0.1 mg/dL (0.0-0.2) Aspartate Amino Transf (AST/SGOT) 11 U/L (15-37) Alanine Aminotransferase (ALT/SGPT) 18 U/L (14-59) Alkaline Phosphatase 148 U/L (46-116) Creatine Kinase 22 U/L (26-192) Creatine Kinase MB (Mass) 0.9 ng/mL (0.0-3.6) Creatine Kinase MB Relative Index 4.1 % (0-4) Troponin I Quantitative 0.022 ng/mL (0.000-0.055) MZ-Gbn-T-Type Natriuretic Peptide 3568 pg/mL (0-449) Total Protein 8.3 g/dL (6.4-8.2) Albumin 2.7 g/dL (3.4-5.0) Lipase 97 U/L (73-393) Thyroid Stimulating Hormone (TSH) 3.068 uIU/mL (0.358-3.74) Urine Collection Type Unknown Urine Color Yellow Urine Clarity Clear Urine pH 6.5 Urine Specific [place] 1.010 Urine Protein Negative mg/dL (NEG-TRACE) Urine Glucose (UA) >=1000 mg/dL (NEG) Urine Ketones (Stick) Negative mg/dL (NEG) Urine Blood Negative (NEG) Urine Nitrite Negative (NEG) Urine Bilirubin Negative (NEG) Urine Urobilinogen Dipstick 0.2 mg/dL (0.2 mg/dL) Urine Leukocyte Esterase Trace (NEG) Urine RBC Occ /HPF (0-2) Urine WBC 1-4 /HPF (0-4) Urine Squamous Epithelial Cells Mod /LPF Urine Bacteria Few /HPF (0-FEW) Urine Hyaline Casts Moderate /HPF Glucose (Fingerstick) 591 mg/dL (70-99) Test 12/28/16 20:32 12/28/16 20:45 12/28/16 21:12 12/28/16 22:05 Glucose (Fingerstick) 465 mg/dL (70-99) 433 mg/dL (70-99) Nasal Screen MRSA (PCR) Negative (Negative) Troponin I Quantitative 0.024 ng/mL (0.000-0.055) Test 12/29/16 01:13 12/29/16 07:47 12/29/16 08:00 12/29/16 11:27 Glucose (Fingerstick) 287 mg/dL (70-99) 395 mg/dL (70-99) 442 mg/dL (70-99) White Blood Count 8.0 x10^3/uL (4.0-11.0) Red Blood Count 3.71 x10^6/uL (3.50-5.40) Hemoglobin 10.9 g/dL (12.0-15.5) Hematocrit 31.5 % (36.0-47.0) Mean Corpuscular Volume 85 fL (79-100) Mean Corpuscular Hemoglobin 29 pg (25-35) Mean Corpuscular Hemoglobin Concent 35 g/dL (31-37) Red Cell Distribution Width 16.8 % (11.5-14.5) Platelet Count 345 x10^3/uL (140-400) Neutrophils (%) (Auto) 71 % (31-73) Lymphocytes (%) (Auto) 18 % (24-48) Monocytes (%) (Auto) 6 % (0-9) Eosinophils (%) (Auto) 4 % (0-3) Basophils (%) (Auto) 1 % (0-3) Neutrophils # (Auto) 5.7 x10^3uL (1.8-7.7) Lymphocytes # (Auto) 1.4 x10^3/uL (1.0-4.8) Monocytes # (Auto) 0.5 x10^3/uL (0.0-1.1) Eosinophils # (Auto) 0.4 x10^3/uL (0.0-0.7) Basophils # (Auto) 0.1 x10^3/uL (0.0-0.2) Prothrombin Time 24.9 SEC (11.7-14.0) Prothromb Time International Ratio 2.4 (0.8-1.1) Sodium Level 132 mmol/L (136-145) Potassium Level 5.1 mmol/L (3.5-5.1) Chloride Level 94 mmol/L (98-107) Carbon Dioxide Level 31 mmol/L (21-32) Anion Gap 7 (6-14) Blood Urea Nitrogen 58 mg/dL (7-20) Creatinine 1.6 mg/dL (0.6-1.0) Estimated GFR (Cockcroft-Gault) 31.0 Glucose Level 373 mg/dL (70-99) Calcium Level 9.6 mg/dL (8.5-10.1) Troponin I Quantitative < 0.017 ng/mL (0.000-0.055) Test 12/29/16 14:04 12/29/16 16:48 12/29/16 19:42 12/29/16 22:44 Glucose (Fingerstick) 298 mg/dL (70-99) 443 mg/dL (70-99) 393 mg/dL (70-99) 188 mg/dL (70-99) Test 12/30/16 07:51 12/30/16 10:30 12/30/16 11:24 Glucose (Fingerstick) 161 mg/dL (70-99) 311 mg/dL (70-99) Prothrombin Time 27.0 SEC (11.7-14.0) Prothromb Time International Ratio 2.7 (0.8-1.1) Sodium Level 132 mmol/L (136-145) Potassium Level 4.5 mmol/L (3.5-5.1) Chloride Level 97 mmol/L (98-107) Carbon Dioxide Level 27 mmol/L (21-32) Anion Gap 8 (6-14) Blood Urea Nitrogen 60 mg/dL (7-20) Creatinine 1.6 mg/dL (0.6-1.0) Estimated GFR (Cockcroft-Gault) 31.0 Glucose Level 320 mg/dL (70-99) Calcium Level 9.1 mg/dL (8.5-10.1) Laboratory Tests Test 12/29/16 14:04 12/29/16 16:48 12/29/16 19:42 12/29/16 22:44 Glucose (Fingerstick) 298 mg/dL (70-99) 443 mg/dL (70-99) 393 mg/dL (70-99) 188 mg/dL (70-99) Test 12/30/16 07:51 12/30/16 10:30 12/30/16 11:24 Glucose (Fingerstick) 161 mg/dL (70-99) 311 mg/dL (70-99) Prothrombin Time 27.0 SEC (11.7-14.0) Prothromb Time International Ratio 2.7 (0.8-1.1) Sodium Level 132 mmol/L (136-145) Potassium Level 4.5 mmol/L (3.5-5.1) Chloride Level 97 mmol/L (98-107) Carbon Dioxide Level 27 mmol/L (21-32) Anion Gap 8 (6-14) Blood Urea Nitrogen 60 mg/dL (7-20) Creatinine 1.6 mg/dL (0.6-1.0) Estimated GFR (Cockcroft-Gault) 31.0 Glucose Level 320 mg/dL (70-99) Calcium Level 9.1 mg/dL (8.5-10.1) Microbiology 12/28/16 Blood Culture - Preliminary, Resulted NO GROWTH AFTER 1 DAY 12/28/16 Urine Culture - Preliminary, Resulted 12/28/16 Urine Culture Result 1 (SHERRIE) - Preliminary, Resulted Medications Current Medications Ceftriaxone Sodium 50 ml @ 100 mls/hr 1X ONCE IV Last administered on 15:29; Start 12/28/16 at 15:15; Stop 12/28/16 at 15:44; Status DC Insulin Aspart (NovoLOG) 0-7 UNITS TIDWMEALS SQ Last administered on 12/29/16 08:08; Start 12/28/16 at 17:00; Stop 12/29/16 at 16:00; Status DC Dextrose (Dextrose 50%-Water Syringe) 12.5 gm PRN Q15MIN PRN IV SEE COMMENTS; Start 12/28/16 at 15:30; Stop 12/29/16 at 17:02; Status DC Sodium Chloride 1,000 ml @ 1,000 mls/hr 1X ONCE IV Last administered on 15:48; Start 12/28/16 at 15:45; Stop 12/28/16 at 16:44; Status DC Ondansetron HCl (Zofran) 4 mg PRN Q8HRS PRN IV NAUSEA/VOMITING; Start 12/28/16 at 16:30; Stop 12/29/16 at 16:29; Status DC Insulin Aspart (NovoLOG) 10 units 1X ONCE SQ Last administered on 12/28/16 17 :35; Start 12/28/16 at 17:15; Stop 12/28/16 at 17:16; Status DC Insulin Aspart (NovoLOG) 10 units 1X ONCE SQ Last administered on 12/28/16 19 :24; Start 12/28/16 at 19:15; Stop 12/28/16 at 19:16; Status DC Acetaminophen (Tylenol) 500 mg PRN Q8HRS PRN PO PAIN Last administered on 20:01; Start 12/28/16 at 20:00 Amlodipine Besylate (Norvasc) 10 mg DAILY PO Last administered on 12/30/16 08: 31; Start 12/29/16 at 09:00 Aspirin (Derek Aspirin) 325 mg [id number] PO Last administered on 12/30/16 08: 30; Start 12/29/16 at 08:00 Atorvastatin Calcium (Lipitor) 40 mg HS PO Last administered on 12/29/16 20:30 ; Start 12/28/16 at 21:00 Calcium/Vitamin D (Oscal D 500mg/ 200uts) 1 tab DAILY PO Last administered on 08:31; Start 12/29/16 at 09:00 Docusate Sodium (Colace) 200 mg HS PO Last administered on 12/29/16 20:30; Start 12/28/16 at 21:00 Furosemide (Lasix) 80 mg BID92 PO Last administered on 12/30/16 08:31; Start 12/29/16 at 09:00 Acetaminophen/ Hydrocodone Bitart (Lortab 5/325) 1 tab Q12HR PRN PO PAIN Last administered on 12/30/16 09:31; Start 12/28/16 at 20:00 Meclizine HCl (Antivert) 12.5 mg BID PO Last administered on 12/30/16 08:31; Start 12/28/16 at 21:00 Meloxicam (Mobic) 7.5 mg DAILY PO Last administered on 12/29/16 08:45; Start 12/29/16 at 09:00; Stop 12/29/16 at 11:53; Status DC Metoprolol Tartrate (Lopressor) 25 mg BID PO Last administered on 12/30/16 08: 31; Start 12/28/16 at 21:00 Nitroglycerin (Nitrostat) 0.4 mg PRN Q5MIN PRN SL CHEST PAIN; Start 12/28/16 at 20:00 Pantoprazole Sodium (Protonix) 40 mg DAILYAC PO Last administered on 12/30/16 08:30; Start 12/29/16 at 07:30 Spironolactone (Aldactone) 25 mg DAILY PO Last administered on 12/30/16 08:31 ; Start 12/29/16 at 09:00 Warfarin Sodium (Coumadin) 4 mg QM-F PO Last administered on 12/29/16 17:27; Start 12/29/16 at 16:00 Warfarin Sodium (Coumadin) 4 mg QSA PO ; Start 12/30/16 at 16:00 Isosorbide Mononitrate (Imdur) 60 mg DAILY PO Last administered on 12/30/16 08 :30; Start 12/29/16 at 09:00 Losartan Potassium (Cozaar) 50 mg DAILY PO Last administered on 12/30/16 09:25 ; Start 12/29/16 at 09:00 Levofloxacin (Levaquin) 250 mg DAILY06 PO Last administered on 12/29/16 06:30 ; Start 12/29/16 at 06:00; Stop 12/29/16 at 09:49; Status DC Warfarin Sodium (Coumadin Per Pharmacy) 1 each PRN DAILY PRN MC SEE COMMENTS Last administered on 12/29/16 14:05; Start 12/28/16 at 20:45 Warfarin Sodium (Coumadin) 4 mg 1X WARF ONCE PO Last administered on 22:33; Start 12/28/16 at 21:29; Stop 12/28/16 at 21:30; Status DC Insulin Aspart (NovoLOG) 5 units 1X ONCE SQ Last administered on 12/29/16 08: 51; Start 12/29/16 at 08:30; Stop 12/29/16 at 08:31; Status DC Insulin Human Regular (NovoLIN R VIAL) 10 unit 1X ONCE IV Last administered on 12/29/16 12:18; Start 12/29/16 at 12:15; Stop 12/29/16 at 12:16; Status DC Sodium Chloride 1,000 ml @ 75 mls/hr [id number] IV Last administered on 01:25; Start 12/29/16 at 12:00 Lidocaine (Lidoderm) 1 patch PRN DAILY PRN TD PAIN Last administered on 09:27; Start 12/29/16 at 13:30 Insulin Detemir (Levemir) 20 units QHS SQ Last administered on 12/29/16 20:34 ; Start 12/29/16 at 21:00 Insulin Aspart (NovoLOG) 6 units TIDAC SQ Last administered on 12/30/16 11:47 ; Start 12/29/16 at 16:30 Insulin Aspart (NovoLOG) 0-9 UNITS QIDACHS SQ Last administered on 12/30/16 11 :46; Start 12/29/16 at 16:30 Dextrose (Dextrose 50%-Water Syringe) 12.5 gm PRN Q15MIN PRN IV SEE COMMENTS; Start 12/29/16 at 16:00 Insulin Aspart (NovoLOG) 20 units 1X ONCE SQ Last administered on 12/29/16 17 :32; Start 12/29/16 at 17:00; Stop 12/29/16 at 17:02; Status DC Insulin Aspart (NovoLOG) 15 units 1X ONCE SQ Last administered on 12/29/16 20 :58; Start 12/29/16 at 21:00; Stop 12/29/16 at 21:01; Status DC Active Scripts Active Reported Levaquin (Levofloxacin) 500 Mg Tablet 250 Mg PO DAILY for 14 days order started 12/22/16 Coumadin (Warfarin Sodium) 4 Mg Tablet 1 Tab PO QSA Coumadin (Warfarin Sodium) 4 Mg Tablet 1 Tab PO QM-F fr Mon til Sat Aspirin 325 Mg Tablet 1 Tab PO DAILY Calcium 500 + Vit D 200 Tablet (Calcium Carbonate/Vitamin D3) 1 Each Tablet 1 Each PO DAILY TAKE NEXT DOSE TOMORROW 11/14 IN AM Novolog Flexpen (Insulin Aspart) 100 Unit/1 Ml Insuln.pen 1 Unit SQ 150-200= 4 units 201-250= 7 units 251-300= 10 units 301-350= 13 units 351-400= 16 units 401-450= 18 units 451-500= 20 units 501-550= 22 units notify if bg < 110 NITROGLYCERIN SubLingual (Nitroglycerin) 0.4 Mg Tab.subl 0.4 Mg SL PRN Q5MIN PRN Protonix (Pantoprazole Sodium) 40 Mg Tablet.dr 1 Tab PO DAILY TAKE NEXT DOSE TOMORROW 11/14 IN AM Metoprolol Tartrate 25 Mg Tablet 1 Tab PO BID TAKE NEXT DOSE TONIGHT 7 AT BEDTIME Acetaminophen 500 Mg Tablet 500 Mg PO PRN Q8HRS PRN Potassium Chloride 10 Meq Capsule.er 10 Meq PO DAILY Meloxicam 7.5 Mg Tablet 1 Tab PO DAILY TAKE NEXT DOSE TOMORROW 11/14 IN AM Meclizine Hcl 12.5 Mg Tablet 1 Tab PO BID TAKE NEXT DOSE TONIGHT 07 AT BEDTIME Hydrocodone-Apap 5-325 (Hydrocodone Bit/Acetaminophen) 1 Each Tablet 1 Tab PO Q12HR PRN Spironolactone 25 Mg Tablet 25 Mg PO DAILY TAKE NEXT DOSE TOMORROW 11/14 IN AM Furosemide 80 Mg Tablet 80 Mg PO BID TAKE NEXT DOSE TOMORROW 11/14 IN AM Stool Softener (Docusate Sodium) 100 Mg Capsule 200 Mg PO HS TAKE NEXT DOSE TONIGHT 07 AT BEDTIME Amlodipine Besylate 10 Mg Tablet 10 Mg PO DAILY TAKE NEXT DOSE TOMORROW 11/14 IN AM hold if sbp less than 100 Losartan Potassium 100 Mg Tablet 50 Mg PO DAILY TAKE NEXT DOSE TOMORROW 11/14 IN AM Atorvastatin Calcium 40 Mg Tablet 40 Mg PO HS TAKE NEXT DOSE TONIGHT 0710 AT BEDTIME Isosorbide Mononitrate Er (Isosorbide Mononitrate) 60 Mg Tab.er.24h 60 Mg PO DAILY TAKE NEXT DOSE TOMORROW 11/14 IN AM Vitals/I & O Vital Sign - Last 24 Hours 12/29/16 12/29/16 12/29/16 12/29/16 15:00 19:45 20:09 20:31 Temp 97.2 98.0 97.2 98.0 Pulse 55 68 68 Resp 18 16 B/P (MAP) 113/23 (53) 120/43 (68) 120/43 Pulse Ox 95 93 O2 Delivery Room Air Room Air Room Air 12/29/16 12/29/16 12/29/16 12/30/16 21:48 22:41 22:57 03:30 Temp 97.5 96.4 97.5 96.4 Pulse 60 58 Resp 20 18 20 16 B/P (MAP) 147/45 (79) 152/90 (110) Pulse Ox 98 97 O2 Delivery Room Air Room Air Room Air 12/30/16 12/30/16 12/30/16 12/30/16 07:00 08:30 08:31 08:31 Temp 96.1 96.1 Pulse 62 58 58 58 Resp 17 B/P (MAP) 146/47 (80) 152/90 152/90 152/90 Pulse Ox 100 O2 Delivery Room Air 12/30/16 12/30/16 12/30/16 12/30/16 09:25 09:31 10:31 11:35 Temp 98.1 98.1 Pulse 58 55 Resp 16 B/P (MAP) 152/90 114/35 (61) Pulse Ox 100 100 95 O2 Delivery Room Air Room Air Room Air O2 Flow Rate 97.0 97.0 Intake and Output 12/29/16 12/29/16 12/30/16 15:00 23:00 07:00 Intake Total 620 ml 1161 ml Output Total 1 ml 5 ml Balance 619 ml 1156 ml JAIRO BUSTILLOS III DO Dec 30, 2016 12:47
--- NOTE | 2016-12-30 14:36 | PDOC ---
Infectious Disease Note Subjective Subjective Not feeling bad but not feeling good either ROS ROS GEN: Denies fevers, chills, sweats HEENT: Denies blurred vision, sore throat or sinus congestion CV: Denies chest pain RESP: Denies shortness of air, cough GI: Denies n/v/d NEURO: Denies confusion, dizziness MSK: Denies weakness, joint pain/swelling : Denies dysuria Vital Sign Vital Signs Vital Signs Date Time Temp Pulse Resp B/P (MAP) Pulse Ox O2 Delivery O2 Flow Rate FiO2 12/30/16 11:35 98.1 55 16 114/35 (61) 95 Room Air 98.1 12/30/16 10:31 97.0 Physical Exam PHYSICAL EXAM GENERAL: Sitting in the chair getting her hair curled, relaxed appearance, NAD HEENT: PERRL, OC/OP clear NECK: Supple, no JVD, no LN LUNGS: Clear HEART: S1S2, no gallop, no murmur appreciated ABD: Soft, NT EXT: No edema, no cyanosis; chronic venous changes MINE ANALYST: Alert, oriented x 3, no focal neurologic deficit SKIN: No rash IV: ok Labs Lab Laboratory Tests Test 12/29/16 16:48 12/29/16 19:42 12/29/16 22:44 12/30/16 07:51 Glucose (Fingerstick) 443 mg/dL (70-99) 393 mg/dL (70-99) 188 mg/dL (70-99) 161 mg/dL (70-99) Test 12/30/16 10:30 12/30/16 11:24 Prothrombin Time 27.0 SEC (11.7-14.0) Prothromb Time International Ratio 2.7 (0.8-1.1) Sodium Level 132 mmol/L (136-145) Potassium Level 4.5 mmol/L (3.5-5.1) Chloride Level 97 mmol/L (98-107) Carbon Dioxide Level 27 mmol/L (21-32) Anion Gap 8 (6-14) Blood Urea Nitrogen 60 mg/dL (7-20) Creatinine 1.6 mg/dL (0.6-1.0) Estimated GFR (Cockcroft-Gault) 31.0 Glucose Level 320 mg/dL (70-99) Calcium Level 9.1 mg/dL (8.5-10.1) Glucose (Fingerstick) 311 mg/dL (70-99) Micro BLOOD CULTURE Preliminary NO GROWTH AFTER 2 DAYS URINE CULTURE RES 1 Preliminary Comment No growth after 18-24 hours. Objective Assessment Hyperglycemia Renal insufficiency/CKD H/O Endocarditis in apr 2016, no evidence for recurrence Uncontrolled diabetes mellitus Plan Plan of Care Patient says her glucose readings at home normally range b/t 250-300 but that over the last 3 weeks has been in the 400-600 range. She is concern about a possible infection contributing to her uncontrolled glucose levels. The TTE showed no evidence of vegetation, urine and BC NGTD, WBC is WNL and she has been afebrile for weeks. There are no overt signs of infection. ? needs DM meds adjusted. Uncertain if a tumor could play into this but aside from elevated sugars she is asymptomatic. Mother of Pancreatitis. 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 Hensley Jan 22. Attending Co-Sign Attending Co-Sign The patient was seen and interviewed as well as examined at the bedside. The chart was reviewed. The case was discussed. Agree with the plan of care. JUSTIN NUNEZ APRN Dec 30, 2016 14:36 HARJINDER PANTOJA MD Dec 30, 2016 14:43
[2016-12-30 15:36] VITALS: BP 111/43
[2016-12-30] MEDS ORDERED: WARFARIN 4 MG TABLET. PO SCH (16:00)
[2016-12-30 19:00] VITALS: BP 97/52
[2016-12-30] MEDS: DOCUSATE SODIUM 100 MG CAPSULE. PO SCH (20:56)
[2016-12-30] MEDS: ATORVASTATIN CALCIUM 40 MG TABLET. PO SCH (20:56)
[2016-12-30] MEDS: INSULIN DETEMIR 300 UNITS/3 ML INSULN.PEN. SQ SCH (21:03)
[2016-12-30] MEDS ORDERED: INSULIN ASPART 300 UNITS/3 ML INSULN.PEN SQ ONE (21:30)
[2016-12-30 23:00] VITALS: BP 135/49
[2016-12-31] MEDS: IV NORMAL SALINE 1000ML BAG 1,000 ML IV SCH (00:25)
[2016-12-31 03:00] VITALS: BP 130/50
[2016-12-31 05:53] LABS: BASO % 1 % (0-3); EOS % 4 % (0-3); HEMATOCRIT 25.8 % (36.0-47.0); HEMOGLOBIN 9.2 g/dL (12.0-15.5); LYMPH # 1.5 x10^3/uL (1.0-4.8); LYMPH % 20 % (24-48); MEAN CORPUSCULAR HEMOGLOBIN 30 pg (25-35); MEAN CORPUSCULAR HGB CONC 36 g/dL (31-37); MEAN CORPUSCULAR VOLUME 83 fL (79-100); MONO % 9 % (0-9); NEUT % 66 % (31-73); PLATELET COUNT 293 x10^3/uL (140-400); RED BLOOD COUNT 3.11 x10^6/uL (3.50-5.40); RED CELL DISTRIBUTION WIDTH 16.4 % (11.5-14.5); WHITE BLOOD COUNT 7.4 x10^3/uL (4.0-11.0)
[2016-12-31 06:04] LABS: PROTHROMBIN TIME PATIENT 29.6 SEC (11.7-14.0)
[2016-12-31 06:12] LABS: CALCIUM 9.1 mg/dL (8.5-10.1); CREATININE 1.5 mg/dL (0.6-1.0); GFR 33.4; POTASSIUM 4.2 mmol/L (3.5-5.1)
[2016-12-31 07:00] VITALS: BP 156/54
[2016-12-31] MEDS: PANTOPRAZOLE 40 MG TABLET.DR. PO SCH (07:30)
[2016-12-31] MEDS: FUROSEMIDE 80 MG TABLET. PO SCH ×2 (08:21→13:17)
[2016-12-31] MEDS: ASPIRIN 325 MG TABLET PO SCH (08:21)
[2016-12-31] MEDS: SPIRONOLACTONE 25 MG TABLET PO SCH (08:21)
[2016-12-31] MEDS: CALCIUM CARB/VIT D3 500/200 TABLET. PO SCH (08:21)
[2016-12-31] MEDS: amLODIPine BESYLATE 10 MG TABLET PO SCH (08:23)
[2016-12-31] MEDS: ISOSORBIDE MONONITRATE ER 30 MG TAB.ER.24H PO SCH (08:23)
[2016-12-31] MEDS: METOPROLOL TART IMMED RELEASE 25 MG TABLET. PO SCH ×2 (08:23→21:18)
[2016-12-31] MEDS: MECLIZINE HCL 12.5 MG TABLET. PO SCH ×2 (08:23→21:17)
[2016-12-31] MEDS: INSULIN ASPART 300 UNITS/3 ML INSULN.PEN SQ SCH ×7 (08:32→21:30)
[2016-12-31] MEDS: LOSARTAN POTASSIUM 50 MG TABLET. PO SCH (08:34)
[2016-12-31 11:00] VITALS: BP 126/35
[2016-12-31] MEDS: HYDROcodone/APAP 5/325MG 1 TAB TABLET PO PRN ×2 (11:57→21:19)
[2016-12-31 14:41] VITALS: BP 130/46
[2016-12-31] MEDS ORDERED: BISACODYL 5 MG TABLET.DR. PO PRN (14:45)
--- NOTE | 2016-12-31 15:23 | RAD ---
CT abdomen and pelvis without contrast 12/31/2016 Clinical indication: Evaluation for pancreatic mass. Comparison: None. Findings: Multiple CT images of the abdomen and pelvis were obtained without contrast according to standard protocol. Coronal and sagittal reformations were obtained. PQRS Compliance Statement: One or more of the following individualized dose reduction techniques were utilized for this examination: 1. Automated exposure control 2. Adjustment of the mA and/or kV according to patient size 3. Use of iterative reconstruction technique Findings: Abdomen and pelvis: There is a 3 mm noncalcified nodule in the right middle lobe series 2/image 1, 3 mm noncalcified nodule in the right middle lobe also on series 2/image 1, 4 mm noncalcified nodule in the right lower lobe series 2/image 2. There are clustered reticular nodular opacities in the lateral left lung base. Moderate generalized cardiomegaly with coronary artery calcifications. Evaluation of the solid abdominopelvic viscera, lymphadenopathy and vasculature is limited in the absence of intravenous contrast. Unenhanced contour of the liver, spleen and adrenal glands are grossly unremarkable. Prior cholecystectomy. There is mild extra hepatic bladder ductal dilatation measuring up to 9 mm with gradual tapering to the ampulla and may be due to prior cholecystectomy. There is a small superior pole left renal cyst. No collecting system dilatation. There is moderate fatty atrophy of the pancreas. There is no suspicious solid soft tissue mass in the pancreas. There is a 11 mm low attenuation structure in the uncinate process with internal Hounsfield units of 10 which may represent a pancreatic pseudocyst or side branch IPM and. No main branch pancreatic ductal dilatation. Abdominal aorta is normal in caliber with heavy calcified atheromatous disease of the abdominal aorta, iliac arteries and major branch vessels. There is a small hiatal hernia. No bowel obstruction. There is mild scattered distal colonic diverticulosis without diverticulitis. No abdominal free fluid. No definite retroperitoneal or mesenteric lymphadenopathy. Mildly distended and unopacified urinary bladder unremarkable. Prior hysterectomy with the vaginal cuff within normal limits. No iliac or inguinal lymphadenopathy. There is mild subcutaneous stranding anterior to the right common femoral artery, likely due to prior catheterization. There is diffuse bony demineralization. There is a moderate central superior compression deformity at L2 with no significant bony retropulsion. Impression: 1. 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 No main branch pancreatic ductal dilatation or focal parenchymal atrophy. Given patient cannot receive iodinated contrast due to anaphylaxis, follow-up MR abdomen with contrast is recommended. 2. A few sub-5 mm noncalcified pulmonary nodules in the visualized lung bases, indeterminate. Follow-up noncontrast CT chest is recommended to assess for stability. 3. Moderate L2 compression deformity, age indeterminate, with no significant bony retropulsion. Correlation with point tenderness is recommended.
--- NOTE | 2016-12-31 15:33 | PDOC ---
PROGRESS NOTES Chief Complaint Chief Complaint Uncontrolled DM2 Hyponatremia GRACIELA on ckd3 H/o endocarditis H/o CAD with pci HTN GERD H/o DVT on warfain History of Present Illness History of Present Illness Pt in bathroom as we discussed her tx. She discussed w/ us her concerns for a previous CT that showed what she said were irregularities on her pancreas. Vitals Vitals Vital Signs Date Time Temp Pulse Resp B/P (MAP) Pulse Ox O2 Delivery O2 Flow Rate FiO2 12/31/16 14:41 97.7 61 18 130/46 (74) 97 Room Air 97.7 12/31/16 11:57 97.0 Physical Exam General: Alert, Oriented X3, Cooperative, No acute distress Heart: Regular rate, Normal S1, Normal S2 Lungs: Clear, Other (No respiratory distress noted on exam) Abdomen: Normal bowel sounds, Soft, No tenderness Extremities: No clubbing, No cyanosis, No edema Skin: No rashes, No breakdown Labs LABS Laboratory Tests Test 12/30/16 16:55 12/30/16 20:56 12/31/16 04:00 12/31/16 05:00 Glucose (Fingerstick) 229 mg/dL (70-99) 364 mg/dL (70-99) Sodium Level 133 mmol/L (136-145) Potassium Level 4.2 mmol/L (3.5-5.1) Chloride Level 98 mmol/L (98-107) Carbon Dioxide Level 28 mmol/L (21-32) Anion Gap 7 (6-14) Blood Urea Nitrogen 62 mg/dL (7-20) Creatinine 1.5 mg/dL (0.6-1.0) Estimated GFR (Cockcroft-Gault) 33.4 Glucose Level 211 mg/dL (70-99) Calcium Level 9.1 mg/dL (8.5-10.1) White Blood Count 7.4 x10^3/uL (4.0-11.0) Red Blood Count 3.11 x10^6/uL (3.50-5.40) Hemoglobin 9.2 g/dL (12.0-15.5) Hematocrit 25.8 % (36.0-47.0) Mean Corpuscular Volume 83 fL (79-100) Mean Corpuscular Hemoglobin 30 pg (25-35) Mean Corpuscular Hemoglobin Concent 36 g/dL (31-37) Red Cell Distribution Width 16.4 % (11.5-14.5) Platelet Count 293 x10^3/uL (140-400) Neutrophils (%) (Auto) 66 % (31-73) Lymphocytes (%) (Auto) 20 % (24-48) Monocytes (%) (Auto) 9 % (0-9) Eosinophils (%) (Auto) 4 % (0-3) Basophils (%) (Auto) 1 % (0-3) Neutrophils # (Auto) 4.9 x10^3uL (1.8-7.7) Lymphocytes # (Auto) 1.5 x10^3/uL (1.0-4.8) Monocytes # (Auto) 0.7 x10^3/uL (0.0-1.1) Eosinophils # (Auto) 0.3 x10^3/uL (0.0-0.7) Basophils # (Auto) 0.0 x10^3/uL (0.0-0.2) Prothrombin Time 29.6 SEC (11.7-14.0) Prothromb Time International Ratio 3.0 (0.8-1.1) Test 12/31/16 07:00 12/31/16 10:56 Glucose (Fingerstick) 205 mg/dL (70-99) 375 mg/dL (70-99) Review of Systems Review of Systems c/o fatigue c/o concerns about possible pancreatic complications that she says she remembers from a previous CT Assessment and Plan Assessmemt and Plan cc: Uncontrolled DM2: Sliding scale. Probable d/c when glucose <200 1. Hyponatremia: monitor 2. GRACIELA on ckd3: monitor. Consult renal 3. H/o endocarditis: discussed w/ Dr. Cast. Await further ID input 4. H/o CAD with pci: cardiac consulted 5. HTN: continue losartan, lasix. 6. GERD: continue pantoprazole 7. H/o DVT on warfarin: continue to give warfarin 8. PTOT Problems: Comment Review of Relevant I have reviewed the following items alejandra (where applicable) has been applied. Labs Laboratory Tests Test 12/29/16 16:48 12/29/16 19:42 12/29/16 22:44 12/30/16 07:51 Glucose (Fingerstick) 443 mg/dL (70-99) 393 mg/dL (70-99) 188 mg/dL (70-99) 161 mg/dL (70-99) Test 12/30/16 10:30 12/30/16 11:24 12/30/16 16:55 12/30/16 20:56 Prothrombin Time 27.0 SEC (11.7-14.0) Prothromb Time International Ratio 2.7 (0.8-1.1) Sodium Level 132 mmol/L (136-145) Potassium Level 4.5 mmol/L (3.5-5.1) Chloride Level 97 mmol/L (98-107) Carbon Dioxide Level 27 mmol/L (21-32) Anion Gap 8 (6-14) Blood Urea Nitrogen 60 mg/dL (7-20) Creatinine 1.6 mg/dL (0.6-1.0) Estimated GFR (Cockcroft-Gault) 31.0 Glucose Level 320 mg/dL (70-99) Hemoglobin A1c 11.2 % (4.8-5.6) Calcium Level 9.1 mg/dL (8.5-10.1) Glucose (Fingerstick) 311 mg/dL (70-99) 229 mg/dL (70-99) 364 mg/dL (70-99) Test 12/31/16 04:00 12/31/16 05:00 12/31/16 07:00 12/31/16 10:56 Sodium Level 133 mmol/L (136-145) Potassium Level 4.2 mmol/L (3.5-5.1) Chloride Level 98 mmol/L (98-107) Carbon Dioxide Level 28 mmol/L (21-32) Anion Gap 7 (6-14) Blood Urea Nitrogen 62 mg/dL (7-20) Creatinine 1.5 mg/dL (0.6-1.0) Estimated GFR (Cockcroft-Gault) 33.4 Glucose Level 211 mg/dL (70-99) Calcium Level 9.1 mg/dL (8.5-10.1) White Blood Count 7.4 x10^3/uL (4.0-11.0) Red Blood Count 3.11 x10^6/uL (3.50-5.40) Hemoglobin 9.2 g/dL (12.0-15.5) Hematocrit 25.8 % (36.0-47.0) Mean Corpuscular Volume 83 fL (79-100) Mean Corpuscular Hemoglobin 30 pg (25-35) Mean Corpuscular Hemoglobin Concent 36 g/dL (31-37) Red Cell Distribution Width 16.4 % (11.5-14.5) Platelet Count 293 x10^3/uL (140-400) Neutrophils (%) (Auto) 66 % (31-73) Lymphocytes (%) (Auto) 20 % (24-48) Monocytes (%) (Auto) 9 % (0-9) Eosinophils (%) (Auto) 4 % (0-3) Basophils (%) (Auto) 1 % (0-3) Neutrophils # (Auto) 4.9 x10^3uL (1.8-7.7) Lymphocytes # (Auto) 1.5 x10^3/uL (1.0-4.8) Monocytes # (Auto) 0.7 x10^3/uL (0.0-1.1) Eosinophils # (Auto) 0.3 x10^3/uL (0.0-0.7) Basophils # (Auto) 0.0 x10^3/uL (0.0-0.2) Prothrombin Time 29.6 SEC (11.7-14.0) Prothromb Time International Ratio 3.0 (0.8-1.1) Glucose (Fingerstick) 205 mg/dL (70-99) 375 mg/dL (70-99) Laboratory Tests Test 12/30/16 16:55 12/30/16 20:56 12/31/16 04:00 12/31/16 05:00 Glucose (Fingerstick) 229 mg/dL (70-99) 364 mg/dL (70-99) Sodium Level 133 mmol/L (136-145) Potassium Level 4.2 mmol/L (3.5-5.1) Chloride Level 98 mmol/L (98-107) Carbon Dioxide Level 28 mmol/L (21-32) Anion Gap 7 (6-14) Blood Urea Nitrogen 62 mg/dL (7-20) Creatinine 1.5 mg/dL (0.6-1.0) Estimated GFR (Cockcroft-Gault) 33.4 Glucose Level 211 mg/dL (70-99) Calcium Level 9.1 mg/dL (8.5-10.1) White Blood Count 7.4 x10^3/uL (4.0-11.0) Red Blood Count 3.11 x10^6/uL (3.50-5.40) Hemoglobin 9.2 g/dL (12.0-15.5) Hematocrit 25.8 % (36.0-47.0) Mean Corpuscular Volume 83 fL (79-100) Mean Corpuscular Hemoglobin 30 pg (25-35) Mean Corpuscular Hemoglobin Concent 36 g/dL (31-37) Red Cell Distribution Width 16.4 % (11.5-14.5) Platelet Count 293 x10^3/uL (140-400) Neutrophils (%) (Auto) 66 % (31-73) Lymphocytes (%) (Auto) 20 % (24-48) Monocytes (%) (Auto) 9 % (0-9) Eosinophils (%) (Auto) 4 % (0-3) Basophils (%) (Auto) 1 % (0-3) Neutrophils # (Auto) 4.9 x10^3uL (1.8-7.7) Lymphocytes # (Auto) 1.5 x10^3/uL (1.0-4.8) Monocytes # (Auto) 0.7 x10^3/uL (0.0-1.1) Eosinophils # (Auto) 0.3 x10^3/uL (0.0-0.7) Basophils # (Auto) 0.0 x10^3/uL (0.0-0.2) Prothrombin Time 29.6 SEC (11.7-14.0) Prothromb Time International Ratio 3.0 (0.8-1.1) Test 12/31/16 07:00 12/31/16 10:56 Glucose (Fingerstick) 205 mg/dL (70-99) 375 mg/dL (70-99) Microbiology 12/28/16 Blood Culture - Preliminary, Resulted NO GROWTH AFTER 3 DAYS 12/28/16 Urine Culture - Final, Complete 12/28/16 Urine Culture Result 1 (SHERRIE) - Final, Complete Medications Current Medications Ceftriaxone Sodium 50 ml @ 100 mls/hr 1X ONCE IV Last administered on t 15:29; Start 12/28/16 at 15:15; Stop 12/28/16 at 15:44; Status DC Insulin Aspart (NovoLOG) 0-7 UNITS TIDWMEALS SQ Last administered on 12/29/16 08:08; Start 12/28/16 at 17:00; Stop 12/29/16 at 16:00; Status DC Dextrose (Dextrose 50%-Water Syringe) 12.5 gm PRN Q15MIN PRN IV SEE COMMENTS; Start 12/28/16 at 15:30; Stop 12/29/16 at 17:02; Status DC Sodium Chloride 1,000 ml @ 1,000 mls/hr 1X ONCE IV Last administered on 15:48; Start 12/28/16 at 15:45; Stop 12/28/16 at 16:44; Status DC Ondansetron HCl (Zofran) 4 mg PRN Q8HRS PRN IV NAUSEA/VOMITING; Start 12/28/16 at 16:30; Stop 12/29/16 at 16:29; Status DC Insulin Aspart (NovoLOG) 10 units 1X ONCE SQ Last administered on 12/28/16 17 :35; Start 12/28/16 at 17:15; Stop 12/28/16 at 17:16; Status DC Insulin Aspart (NovoLOG) 10 units 1X ONCE SQ Last administered on 12/28/16 19 :24; Start 12/28/16 at 19:15; Stop 12/28/16 at 19:16; Status DC Acetaminophen (Tylenol) 500 mg PRN Q8HRS PRN PO PAIN Last administered on 20:01; Start 12/28/16 at 20:00 Amlodipine Besylate (Norvasc) 10 mg DAILY PO Last administered on 12/31/16 08: 23; Start 12/29/16 at 09:00 Aspirin (Derek Aspirin) 325 mg [id number] PO Last administered on 12/31/16 08: 21; Start 12/29/16 at 08:00 Atorvastatin Calcium (Lipitor) 40 mg HS PO Last administered on 12/30/16 20:56 ; Start 12/28/16 at 21:00 Calcium/Vitamin D (Oscal D 500mg/ 200uts) 1 tab DAILY PO Last administered on 08:21; Start 12/29/16 at 09:00 Docusate Sodium (Colace) 200 mg HS PO Last administered on 12/30/16 20:56; Start 12/28/16 at 21:00 Furosemide (Lasix) 80 mg [id number] PO Last administered on 12/31/16 13:17; Start 12/29/16 at 09:00 Acetaminophen/ Hydrocodone Bitart (Lortab 5/325) 1 tab Q12HR PRN PO PAIN Last administered on 12/31/16 11:57; Start 12/28/16 at 20:00 Meclizine HCl (Antivert) 12.5 mg BID PO Last administered on 12/31/16 08:23; Start 12/28/16 at 21:00 Meloxicam (Mobic) 7.5 mg DAILY PO Last administered on 12/29/16 08:45; Start 12/29/16 at 09:00; Stop 12/29/16 at 11:53; Status DC Metoprolol Tartrate (Lopressor) 25 mg BID PO Last administered on 12/31/16 08: 23; Start 12/28/16 at 21:00 Nitroglycerin (Nitrostat) 0.4 mg PRN Q5MIN PRN SL CHEST PAIN; Start 12/28/16 at 20:00 Pantoprazole Sodium (Protonix) 40 mg DAILYAC PO Last administered on 12/31/16 07:30; Start 12/29/16 at 07:30 Spironolactone (Aldactone) 25 mg DAILY PO Last administered on 12/31/16 08:21 ; Start 12/29/16 at 09:00 Warfarin Sodium (Coumadin) 4 mg QM-F PO Last administered on 12/29/16 17:27; Start 12/29/16 at 16:00 Warfarin Sodium (Coumadin) 4 mg QSA PO Last administered on 12/30/16 17:02; Start 12/30/16 at 16:00 Isosorbide Mononitrate (Imdur) 60 mg DAILY PO Last administered on 12/31/16 08 :23; Start 12/29/16 at 09:00 Losartan Potassium (Cozaar) 50 mg DAILY PO Last administered on 12/31/16 08:34 ; Start 12/29/16 at 09:00 Levofloxacin (Levaquin) 250 mg DAILY06 PO Last administered on 12/29/16 06:30 ; Start 12/29/16 at 06:00; Stop 12/29/16 at 09:49; Status DC Warfarin Sodium (Coumadin Per Pharmacy) 1 each PRN DAILY PRN MC SEE COMMENTS Last administered on 12/31/16 09:03; Start 12/28/16 at 20:45 Warfarin Sodium (Coumadin) 4 mg 1X WARF ONCE PO Last administered on 22:33; Start 12/28/16 at 21:29; Stop 12/28/16 at 21:30; Status DC Insulin Aspart (NovoLOG) 5 units 1X ONCE SQ Last administered on 12/29/16 08: 51; Start 12/29/16 at 08:30; Stop 12/29/16 at 08:31; Status DC Insulin Human Regular (NovoLIN R VIAL) 10 unit 1X ONCE IV Last administered on 12/29/16 12:18; Start 12/29/16 at 12:15; Stop 12/29/16 at 12:16; Status DC Sodium Chloride 1,000 ml @ 75 mls/hr [id number] IV Last administered on 00:25; Start 12/29/16 at 12:00; Stop 12/31/16 at 13:45; Status DC Lidocaine (Lidoderm) 1 patch PRN DAILY PRN TD PAIN Last administered on 09:27; Start 12/29/16 at 13:30 Insulin Detemir (Levemir) 20 units QHS SQ Last administered on 12/30/16 21:03 ; Start 12/29/16 at 21:00 Insulin Aspart (NovoLOG) 6 units TIDAC SQ Last administered on 12/31/16 12:04 ; Start 12/29/16 at 16:30 Insulin Aspart (NovoLOG) 0-9 UNITS QIDACHS SQ Last administered on 12/31/16 12 :04; Start 12/29/16 at 16:30 Dextrose (Dextrose 50%-Water Syringe) 12.5 gm PRN Q15MIN PRN IV SEE COMMENTS; Start 12/29/16 at 16:00 Insulin Aspart (NovoLOG) 20 units 1X ONCE SQ Last administered on 12/29/16 17 :32; Start 12/29/16 at 17:00; Stop 12/29/16 at 17:02; Status DC Insulin Aspart (NovoLOG) 15 units 1X ONCE SQ Last administered on 12/29/16 20 :58; Start 12/29/16 at 21:00; Stop 12/29/16 at 21:01; Status DC Insulin Aspart (NovoLOG) 15 units 1X ONCE SQ Last administered on 12/30/16t 21 :50; Start 12/30/16 at 21:30; Stop 12/30/16 at 21:32; Status DC Polyethylene Glycol (miraLAX PACKET) 17 gm DAILY PO ; Start 12/31/16 at 15:00 Bisacodyl (Dulcolax Tab) 10 mg PRN DAILY PRN PO CONSTIPATION; Start 12/31/16 at 14:45 Active Scripts Active Reported Levaquin (Levofloxacin) 500 Mg Tablet 250 Mg PO DAILY for 14 days order started 12/22/16 Coumadin (Warfarin Sodium) 4 Mg Tablet 1 Tab PO QSA Coumadin (Warfarin Sodium) 4 Mg Tablet 1 Tab PO QM-F fr Mon til Sat Aspirin 325 Mg Tablet 1 Tab PO DAILY Calcium 500 + Vit D 200 Tablet (Calcium Carbonate/Vitamin D3) 1 Each Tablet 1 Each PO DAILY TAKE NEXT DOSE TOMORROW 11/14 IN AM Novolog Flexpen (Insulin Aspart) 100 Unit/1 Ml Insuln.pen 1 Unit SQ 150-200= 4 units 201-250= 7 units 251-300= 10 units 301-350= 13 units 351-400= 16 units 401-450= 18 units 451-500= 20 units 501-550= 22 units notify if bg < 110 NITROGLYCERIN SubLingual (Nitroglycerin) 0.4 Mg Tab.subl 0.4 Mg SL PRN Q5MIN PRN Protonix (Pantoprazole Sodium) 40 Mg Tablet.dr 1 Tab PO DAILY TAKE NEXT DOSE TOMORROW 11/14 IN AM Metoprolol Tartrate 25 Mg Tablet 1 Tab PO BID TAKE NEXT DOSE TONIGHT 10 AT BEDTIME Acetaminophen 500 Mg Tablet 500 Mg PO PRN Q8HRS PRN Potassium Chloride 10 Meq Capsule.er 10 Meq PO DAILY Meloxicam 7.5 Mg Tablet 1 Tab PO DAILY TAKE NEXT DOSE TOMORROW 11/14 IN AM Meclizine Hcl 12.5 Mg Tablet 1 Tab PO BID TAKE NEXT DOSE TONIGHT 07 AT BEDTIME Hydrocodone-Apap 5-325 (Hydrocodone Bit/Acetaminophen) 1 Each Tablet 1 Tab PO Q12HR PRN Spironolactone 25 Mg Tablet 25 Mg PO DAILY TAKE NEXT DOSE TOMORROW 11/14 IN AM Furosemide 80 Mg Tablet 80 Mg PO BID TAKE NEXT DOSE TOMORROW 11/14 IN AM Stool Softener (Docusate Sodium) 100 Mg Capsule 200 Mg PO HS TAKE NEXT DOSE TONIGHT 11/13 AT BEDTIME Amlodipine Besylate 10 Mg Tablet 10 Mg PO DAILY TAKE NEXT DOSE TOMORROW 11/14 IN AM hold if sbp less than 100 Losartan Potassium 100 Mg Tablet 50 Mg PO DAILY TAKE NEXT DOSE TOMORROW 11/14 IN AM Atorvastatin Calcium 40 Mg Tablet 40 Mg PO HS TAKE NEXT DOSE TONIGHT 11/13 AT BEDTIME Isosorbide Mononitrate Er (Isosorbide Mononitrate) 60 Mg Tab.er.24h 60 Mg PO DAILY TAKE NEXT DOSE TOMORROW 11/14 IN AM Vitals/I & O Vital Sign - Last 24 Hours 12/30/16 12/30/16 12/30/16 12/30/16 15:36 19:00 20:00 20:57 Temp 98.0 98.1 98.0 98.1 Pulse 61 64 66 Resp 16 18 B/P (MAP) 111/43 (65) 97/52 (67) 135/46 Pulse Ox 97 97 O2 Delivery Room Air Room Air Room Air 12/30/16 12/30/16 12/30/16 12/31/16 21:46 22:46 23:00 03:00 Temp 98.1 97.5 98.1 97.5 Pulse 71 66 Resp 20 18 18 18 B/P (MAP) 135/49 (77) 130/50 (76) Pulse Ox 97 96 98 96 O2 Delivery Room Air Room Air Room Air Room Air O2 Flow Rate 97.0 97.0 12/31/16 12/31/16 12/31/16 12/31/16 07:00 08:23 08:23 08:23 Temp 97.9 97.9 Pulse 65 65 65 65 Resp 18 B/P (MAP) 156/54 (88) 156/54 156/54 156/54 Pulse Ox 99 O2 Delivery Room Air 12/31/16 12/31/16 12/31/16 12/31/16 08:34 11:00 11:57 14:41 Temp 98.1 97.7 98.1 97.7 Pulse 65 55 61 Resp 17 18 B/P (MAP) 156/54 126/35 (65) 130/46 (74) Pulse Ox 95 95 97 O2 Delivery Room Air Room Air Room Air O2 Flow Rate 97.0 Intake and Output 12/30/16 12/30/16 12/31/16 15:00 23:00 07:00 Intake Total 460 ml 1480 ml Output Total 4 ml Balance 456 ml 1480 ml JAIRO BUSTILLOS III DO Dec 31, 2016 15:33
--- NOTE | 2016-12-31 15:49 | PDOC ---
PROGRESS NOTES Subjective Subjective Patient has no new cardiac complaints. Her blood sugars are still above 300 Objective Objective Vital Signs Date Time Temp Pulse Resp B/P (MAP) Pulse Ox O2 Delivery O2 Flow Rate FiO2 12/31/16 14:41 97.7 61 18 130/46 (74) 97 Room Air 97.7 12/31/16 11:57 97.0 Intake and Output 12/31/16 07:00 Intake Total 1940 ml Output Total 4 ml Balance 1936 ml Intake Oral 940 ml IV Total 1000 ml Output Urine Total 4 ml # Voids 5 Physical Exam Physical Exam No significant changes in cardiac exam Assessment Assessment The patient is compensated cardiac-ramos. The diabetes is still not well controlled. I agree with present plan. Comment Review of Relevant I have reviewed the following items alejandra (where applicable) has been applied. Labs Laboratory Tests Test 12/29/16 16:48 12/29/16 19:42 12/29/16 22:44 12/30/16 07:51 Glucose (Fingerstick) 443 mg/dL (70-99) 393 mg/dL (70-99) 188 mg/dL (70-99) 161 mg/dL (70-99) Test 12/30/16 10:30 12/30/16 11:24 12/30/16 16:55 12/30/16 20:56 Prothrombin Time 27.0 SEC (11.7-14.0) Prothromb Time International Ratio 2.7 (0.8-1.1) Sodium Level 132 mmol/L (136-145) Potassium Level 4.5 mmol/L (3.5-5.1) Chloride Level 97 mmol/L (98-107) Carbon Dioxide Level 27 mmol/L (21-32) Anion Gap 8 (6-14) Blood Urea Nitrogen 60 mg/dL (7-20) Creatinine 1.6 mg/dL (0.6-1.0) Estimated GFR (Cockcroft-Gault) 31.0 Glucose Level 320 mg/dL (70-99) Hemoglobin A1c 11.2 % (4.8-5.6) Calcium Level 9.1 mg/dL (8.5-10.1) Glucose (Fingerstick) 311 mg/dL (70-99) 229 mg/dL (70-99) 364 mg/dL (70-99) Test 12/31/16 04:00 12/31/16 05:00 12/31/16 07:00 12/31/16 10:56 Sodium Level 133 mmol/L (136-145) Potassium Level 4.2 mmol/L (3.5-5.1) Chloride Level 98 mmol/L (98-107) Carbon Dioxide Level 28 mmol/L (21-32) Anion Gap 7 (6-14) Blood Urea Nitrogen 62 mg/dL (7-20) Creatinine 1.5 mg/dL (0.6-1.0) Estimated GFR (Cockcroft-Gault) 33.4 Glucose Level 211 mg/dL (70-99) Calcium Level 9.1 mg/dL (8.5-10.1) White Blood Count 7.4 x10^3/uL (4.0-11.0) Red Blood Count 3.11 x10^6/uL (3.50-5.40) Hemoglobin 9.2 g/dL (12.0-15.5) Hematocrit 25.8 % (36.0-47.0) Mean Corpuscular Volume 83 fL (79-100) Mean Corpuscular Hemoglobin 30 pg (25-35) Mean Corpuscular Hemoglobin Concent 36 g/dL (31-37) Red Cell Distribution Width 16.4 % (11.5-14.5) Platelet Count 293 x10^3/uL (140-400) Neutrophils (%) (Auto) 66 % (31-73) Lymphocytes (%) (Auto) 20 % (24-48) Monocytes (%) (Auto) 9 % (0-9) Eosinophils (%) (Auto) 4 % (0-3) Basophils (%) (Auto) 1 % (0-3) Neutrophils # (Auto) 4.9 x10^3uL (1.8-7.7) Lymphocytes # (Auto) 1.5 x10^3/uL (1.0-4.8) Monocytes # (Auto) 0.7 x10^3/uL (0.0-1.1) Eosinophils # (Auto) 0.3 x10^3/uL (0.0-0.7) Basophils # (Auto) 0.0 x10^3/uL (0.0-0.2) Prothrombin Time 29.6 SEC (11.7-14.0) Prothromb Time International Ratio 3.0 (0.8-1.1) Glucose (Fingerstick) 205 mg/dL (70-99) 375 mg/dL (70-99) Laboratory Tests Test 12/30/16 16:55 12/30/16 20:56 12/31/16 04:00 12/31/16 05:00 Glucose (Fingerstick) 229 mg/dL (70-99) 364 mg/dL (70-99) Sodium Level 133 mmol/L (136-145) Potassium Level 4.2 mmol/L (3.5-5.1) Chloride Level 98 mmol/L (98-107) Carbon Dioxide Level 28 mmol/L (21-32) Anion Gap 7 (6-14) Blood Urea Nitrogen 62 mg/dL (7-20) Creatinine 1.5 mg/dL (0.6-1.0) Estimated GFR (Cockcroft-Gault) 33.4 Glucose Level 211 mg/dL (70-99) Calcium Level 9.1 mg/dL (8.5-10.1) White Blood Count 7.4 x10^3/uL (4.0-11.0) Red Blood Count 3.11 x10^6/uL (3.50-5.40) Hemoglobin 9.2 g/dL (12.0-15.5) Hematocrit 25.8 % (36.0-47.0) Mean Corpuscular Volume 83 fL (79-100) Mean Corpuscular Hemoglobin 30 pg (25-35) Mean Corpuscular Hemoglobin Concent 36 g/dL (31-37) Red Cell Distribution Width 16.4 % (11.5-14.5) Platelet Count 293 x10^3/uL (140-400) Neutrophils (%) (Auto) 66 % (31-73) Lymphocytes (%) (Auto) 20 % (24-48) Monocytes (%) (Auto) 9 % (0-9) Eosinophils (%) (Auto) 4 % (0-3) Basophils (%) (Auto) 1 % (0-3) Neutrophils # (Auto) 4.9 x10^3uL (1.8-7.7) Lymphocytes # (Auto) 1.5 x10^3/uL (1.0-4.8) Monocytes # (Auto) 0.7 x10^3/uL (0.0-1.1) Eosinophils # (Auto) 0.3 x10^3/uL (0.0-0.7) Basophils # (Auto) 0.0 x10^3/uL (0.0-0.2) Prothrombin Time 29.6 SEC (11.7-14.0) Prothromb Time International Ratio 3.0 (0.8-1.1) Test 12/31/16 07:00 12/31/16 10:56 Glucose (Fingerstick) 205 mg/dL (70-99) 375 mg/dL (70-99) Microbiology 12/28/16 Blood Culture - Preliminary, Resulted NO GROWTH AFTER 3 DAYS 12/28/16 Urine Culture - Final, Complete 12/28/16 Urine Culture Result 1 (SHERRIE) - Final, Complete Medications Current Medications Ceftriaxone Sodium 50 ml @ 100 mls/hr 1X ONCE IV Last administered on 15:29; Start 12/28/16 at 15:15; Stop 12/28/16 at 15:44; Status DC Insulin Aspart (NovoLOG) 0-7 UNITS TIDWMEALS SQ Last administered on 12/29/16 08:08; Start 12/28/16 at 17:00; Stop 12/29/16 at 16:00; Status DC Dextrose (Dextrose 50%-Water Syringe) 12.5 gm PRN Q15MIN PRN IV SEE COMMENTS; Start 12/28/16 at 15:30; Stop 12/29/16 at 17:02; Status DC Sodium Chloride 1,000 ml @ 1,000 mls/hr 1X ONCE IV Last administered on 15:48; Start 12/28/16 at 15:45; Stop 12/28/16 at 16:44; Status DC Ondansetron HCl (Zofran) 4 mg PRN Q8HRS PRN IV NAUSEA/VOMITING; Start 12/28/16 at 16:30; Stop 12/29/16 at 16:29; Status DC Insulin Aspart (NovoLOG) 10 units 1X ONCE SQ Last administered on 12/28/16 17 :35; Start 12/28/16 at 17:15; Stop 12/28/16 at 17:16; Status DC Insulin Aspart (NovoLOG) 10 units 1X ONCE SQ Last administered on 12/28/16 19 :24; Start 12/28/16 at 19:15; Stop 12/28/16 at 19:16; Status DC Acetaminophen (Tylenol) 500 mg PRN Q8HRS PRN PO PAIN Last administered on 20:01; Start 12/28/16 at 20:00 Amlodipine Besylate (Norvasc) 10 mg DAILY PO Last administered on 12/31/16 08: 23; Start 12/29/16 at 09:00 Aspirin (Derek Aspirin) 325 mg [id number] PO Last administered on 12/31/16 08: 21; Start 12/29/16 at 08:00 Atorvastatin Calcium (Lipitor) 40 mg HS PO Last administered on 12/30/16 20:56 ; Start 12/28/16 at 21:00 Calcium/Vitamin D (Oscal D 500mg/ 200uts) 1 tab DAILY PO Last administered on 08:21; Start 12/29/16 at 09:00 Docusate Sodium (Colace) 200 mg HS PO Last administered on 12/30/16 20:56; Start 12/28/16 at 21:00 Furosemide (Lasix) 80 mg BID92 PO Last administered on 12/31/16 13:17; Start 12/29/16 at 09:00 Acetaminophen/ Hydrocodone Bitart (Lortab 5/325) 1 tab Q12HR PRN PO PAIN Last administered on 12/31/16 11:57; Start 12/28/16 at 20:00 Meclizine HCl (Antivert) 12.5 mg BID PO Last administered on 12/31/16 08:23; Start 12/28/16 at 21:00 Meloxicam (Mobic) 7.5 mg DAILY PO Last administered on 12/29/16 08:45; Start 12/29/16 at 09:00; Stop 12/29/16 at 11:53; Status DC Metoprolol Tartrate (Lopressor) 25 mg BID PO Last administered on 12/31/16 08: 23; Start 12/28/16 at 21:00 Nitroglycerin (Nitrostat) 0.4 mg PRN Q5MIN PRN SL CHEST PAIN; Start 12/28/16 at 20:00 Pantoprazole Sodium (Protonix) 40 mg DAILYAC PO Last administered on 12/31/16 07:30; Start 12/29/16 at 07:30 Spironolactone (Aldactone) 25 mg DAILY PO Last administered on 12/31/16 08:21 ; Start 12/29/16 at 09:00 Warfarin Sodium (Coumadin) 4 mg QM-F PO Last administered on 12/29/16 17:27; Start 12/29/16 at 16:00 Warfarin Sodium (Coumadin) 4 mg QSA PO Last administered on 12/30/16 17:02; Start 12/30/16 at 16:00 Isosorbide Mononitrate (Imdur) 60 mg DAILY PO Last administered on 12/31/16 08 :23; Start 12/29/16 at 09:00 Losartan Potassium (Cozaar) 50 mg DAILY PO Last administered on 12/31/16 08:34 ; Start 12/29/16 at 09:00 Levofloxacin (Levaquin) 250 mg DAILY06 PO Last administered on 12/29/16 06:30 ; Start 12/29/16 at 06:00; Stop 12/29/16 at 09:49; Status DC Warfarin Sodium (Coumadin Per Pharmacy) 1 each PRN DAILY PRN MC SEE COMMENTS Last administered on 12/31/16 09:03; Start 12/28/16 at 20:45 Warfarin Sodium (Coumadin) 4 mg 1X WARF ONCE PO Last administered on 22:33; Start 12/28/16 at 21:29; Stop 12/28/16 at 21:30; Status DC Insulin Aspart (NovoLOG) 5 units 1X ONCE SQ Last administered on 12/29/16 08: 51; Start 12/29/16 at 08:30; Stop 12/29/16 at 08:31; Status DC Insulin Human Regular (NovoLIN R VIAL) 10 unit 1X ONCE IV Last administered on 12/29/16 12:18; Start 12/29/16 at 12:15; Stop 12/29/16 at 12:16; Status DC Sodium Chloride 1,000 ml @ 75 mls/hr [id number] IV Last administered on 00:25; Start 12/29/16 at 12:00; Stop 12/31/16 at 13:45; Status DC Lidocaine (Lidoderm) 1 patch PRN DAILY PRN TD PAIN Last administered on 09:27; Start 12/29/16 at 13:30 Insulin Detemir (Levemir) 20 units QHS SQ Last administered on 12/30/16 21:03 ; Start 12/29/16 at 21:00 Insulin Aspart (NovoLOG) 6 units TIDAC SQ Last administered on 12/31/16 12:04 ; Start 12/29/16 at 16:30 Insulin Aspart (NovoLOG) 0-9 UNITS QIDACHS SQ Last administered on 12/31/16 12 :04; Start 12/29/16 at 16:30 Dextrose (Dextrose 50%-Water Syringe) 12.5 gm PRN Q15MIN PRN IV SEE COMMENTS; Start 12/29/16 at 16:00 Insulin Aspart (NovoLOG) 20 units 1X ONCE SQ Last administered on 12/29/16 17 :32; Start 12/29/16 at 17:00; Stop 12/29/16 at 17:02; Status DC Insulin Aspart (NovoLOG) 15 units 1X ONCE SQ Last administered on 12/29/16 20 :58; Start 12/29/16 at 21:00; Stop 12/29/16 at 21:01; Status DC Insulin Aspart (NovoLOG) 15 units 1X ONCE SQ Last administered on 12/30/16 21 :50; Start 12/30/16 at 21:30; Stop 12/30/16 at 21:32; Status DC Polyethylene Glycol (miraLAX PACKET) 17 gm DAILY PO ; Start 12/31/16 at 15:00 Bisacodyl (Dulcolax Tab) 10 mg PRN DAILY PRN PO CONSTIPATION; Start 12/31/16 at 14:45 Active Scripts Active Reported Levaquin (Levofloxacin) 500 Mg Tablet 250 Mg PO DAILY for 14 days order started 12/22/16 Coumadin (Warfarin Sodium) 4 Mg Tablet 1 Tab PO QSA Coumadin (Warfarin Sodium) 4 Mg Tablet 1 Tab PO QM-F fr Mon til Sat Aspirin 325 Mg Tablet 1 Tab PO DAILY Calcium 500 + Vit D 200 Tablet (Calcium Carbonate/Vitamin D3) 1 Each Tablet 1 Each PO DAILY TAKE NEXT DOSE TOMORROW 11/14 IN AM Novolog Flexpen (Insulin Aspart) 100 Unit/1 Ml Insuln.pen 1 Unit SQ 150-200= 4 units 201-250= 7 units 251-300= 10 units 301-350= 13 units 351-400= 16 units 401-450= 18 units 451-500= 20 units 501-550= 22 units notify if bg < 110 NITROGLYCERIN SubLingual (Nitroglycerin) 0.4 Mg Tab.subl 0.4 Mg SL PRN Q5MIN PRN Protonix (Pantoprazole Sodium) 40 Mg Tablet.dr 1 Tab PO DAILY TAKE NEXT DOSE TOMORROW 11/14 IN AM Metoprolol Tartrate 25 Mg Tablet 1 Tab PO BID TAKE NEXT DOSE TONIGHT 710 AT BEDTIME Acetaminophen 500 Mg Tablet 500 Mg PO PRN Q8HRS PRN Potassium Chloride 10 Meq Capsule.er 10 Meq PO DAILY Meloxicam 7.5 Mg Tablet 1 Tab PO DAILY TAKE NEXT DOSE TOMORROW 11/14 IN AM Meclizine Hcl 12.5 Mg Tablet 1 Tab PO BID TAKE NEXT DOSE TONIGHT 07 AT BEDTIME Hydrocodone-Apap 5-325 (Hydrocodone Bit/Acetaminophen) 1 Each Tablet 1 Tab PO Q12HR PRN Spironolactone 25 Mg Tablet 25 Mg PO DAILY TAKE NEXT DOSE TOMORROW 11/14 IN AM Furosemide 80 Mg Tablet 80 Mg PO BID TAKE NEXT DOSE TOMORROW 11/14 IN AM Stool Softener (Docusate Sodium) 100 Mg Capsule 200 Mg PO HS TAKE NEXT DOSE TONIGHT 07/ AT BEDTIME Amlodipine Besylate 10 Mg Tablet 10 Mg PO DAILY TAKE NEXT DOSE TOMORROW 11/14 IN AM hold if sbp less than 100 Losartan Potassium 100 Mg Tablet 50 Mg PO DAILY TAKE NEXT DOSE TOMORROW 11/14 IN AM Atorvastatin Calcium 40 Mg Tablet 40 Mg PO HS TAKE NEXT DOSE TONIGHT 07 AT BEDTIME Isosorbide Mononitrate Er (Isosorbide Mononitrate) 60 Mg Tab.er.24h 60 Mg PO DAILY TAKE NEXT DOSE TOMORROW 11/14 IN AM Vitals/I & O Vital Sign - Last 24 Hours 12/30/16 12/30/16 12/30/16 12/30/16 19:00 20:00 20:57 21:46 Temp 98.1 98.1 Pulse 64 66 Resp 18 20 B/P (MAP) 97/52 (67) 135/46 Pulse Ox 97 97 O2 Delivery Room Air Room Air Room Air O2 Flow Rate 97.0 812/30/16 12/31/16 12/31/16 22:46 23:00 03:00 07:00 Temp 98.1 97.5 97.9 98.1 97.5 97.9 Pulse 71 66 65 Resp 18 18 18 18 B/P (MAP) 135/49 (77) 130/50 (76) 156/54 (88) Pulse Ox 96 98 96 99 O2 Delivery Room Air Room Air Room Air Room Air O2 Flow Rate 97.0 12/31/16 12/31/16 12/31/16 12/31/16 08:23 08:23 08:23 08:34 Pulse 65 65 65 65 B/P (MAP) 156/54 156/54 156/54 156/54 12/31/16 12/31/16 12/31/16 11:00 11:57 14:41 Temp 98.1 97.7 98.1 97.7 Pulse 55 61 Resp 17 18 B/P (MAP) 126/35 (65) 130/46 (74) Pulse Ox 95 95 97 O2 Delivery Room Air Room Air Room Air O2 Flow Rate 97.0 Intake and Output 12/30/16 12/30/16 12/31/16 15:00 23:00 07:00 Intake Total 460 ml 1480 ml Output Total 4 ml Balance 456 ml 1480 ml WILLY GURROLA MD Dec 31, 2016 15:49
[2016-12-31] MEDS: POLYETHYLENE GLYCOL 3350 17 GM PACKET. PO SCH (16:58)
[2016-12-31 19:00] VITALS: BP 149/47
[2016-12-31] MEDS: DOCUSATE SODIUM 100 MG CAPSULE. PO SCH (21:17)
[2016-12-31] MEDS: ATORVASTATIN CALCIUM 40 MG TABLET. PO SCH (21:17)
[2016-12-31] MEDS: INSULIN DETEMIR 300 UNITS/3 ML INSULN.PEN. SQ SCH (21:29)
[2016-12-31 23:00] VITALS: BP 142/50
--- NOTE | 2016-12-31 23:58 | PDOC ---
Provider Note Provider Note RENAL F/U : NATHALY S : Doing OK No new issues. O : VSS Afberile BP low stable Alert No distress Neck : Supple Lungs : Non labored CVS : RRR Abd : Soft, no masses Ext : Trace edema Labs and meds reviewed. A/P: ARF HTH w CKD HYPERGLYCEMIA Better CPM NADINE ANDERSEN MD Dec 31, 2016 23:58
[2017-01-01 03:00] VITALS: BP 140/45
[2017-01-01 04:42] LABS: INR 2.6 (0.8-1.1); PROTHROMBIN TIME PATIENT 25.9 SEC (11.7-14.0)
[2017-01-01 04:43] LABS: BASO # 0.1 x10^3/uL (0.0-0.2); BASO % 1 % (0-3); EOS % 4 % (0-3); HEMOGLOBIN 10.2 g/dL (12.0-15.5); LYMPH # 1.4 x10^3/uL (1.0-4.8); LYMPH % 19 % (24-48); MEAN CORPUSCULAR HEMOGLOBIN 29 pg (25-35); MEAN CORPUSCULAR HGB CONC 34 g/dL (31-37); MEAN CORPUSCULAR VOLUME 86 fL (79-100); MONO % 7 % (0-9); NEUT % 70 % (31-73); PLATELET COUNT 351 x10^3/uL (140-400); RED CELL DISTRIBUTION WIDTH 16.4 % (11.5-14.5); WHITE BLOOD COUNT 7.6 x10^3/uL (4.0-11.0)
[2017-01-01 04:57] LABS: CALCIUM 9.8 mg/dL (8.5-10.1); CREATININE 1.4 mg/dL (0.6-1.0); GFR 36.2; POTASSIUM 4.4 mmol/L (3.5-5.1)
[2017-01-01] MEDS: LIDOCAINE (700MG/PATCH) PATCH. TD PRN (06:37)
[2017-01-01] MEDS: PANTOPRAZOLE 40 MG TABLET.DR. PO SCH (06:37)
[2017-01-01 07:00] VITALS: BP 154/39
[2017-01-01] MEDS: ISOSORBIDE MONONITRATE ER 30 MG TAB.ER.24H PO SCH (08:29)
[2017-01-01] MEDS: SPIRONOLACTONE 25 MG TABLET PO SCH (08:29)
[2017-01-01] MEDS: POLYETHYLENE GLYCOL 3350 17 GM PACKET. PO SCH (08:29)
[2017-01-01] MEDS: FUROSEMIDE 80 MG TABLET. PO SCH ×2 (08:29→13:09)
[2017-01-01] MEDS: METOPROLOL TART IMMED RELEASE 25 MG TABLET. PO SCH ×2 (08:30→20:54)
[2017-01-01] MEDS: amLODIPine BESYLATE 10 MG TABLET PO SCH (08:30)
[2017-01-01] MEDS: MECLIZINE HCL 12.5 MG TABLET. PO SCH ×2 (08:30→20:53)
[2017-01-01] MEDS: CALCIUM CARB/VIT D3 500/200 TABLET. PO SCH (08:30)
[2017-01-01] MEDS: ASPIRIN 325 MG TABLET PO SCH (08:30)
[2017-01-01] MEDS: LOSARTAN POTASSIUM 50 MG TABLET. PO SCH (08:30)
[2017-01-01] MEDS: INSULIN ASPART 300 UNITS/3 ML INSULN.PEN SQ SCH ×7 (08:38→21:00)
--- NOTE | 2017-01-01 10:16 | PDOC ---
Infectious Disease Note Subjective Subjective Not feeling bad in general but constipated and frustrated with sugars ROS ROS GEN: Denies fevers, chills, sweats HEENT: Denies blurred vision, sore throat CV: Denies chest pain RESP: Denies shortness of air, cough GI: Denies n/v/d NEURO: Denies confusion, dizziness MSK: Denies weakness, joint pain/swelling Vital Sign Vital Signs Vital Signs Date Time Temp Pulse Resp B/P (MAP) Pulse Ox O2 Delivery O2 Flow Rate FiO2 01/01/17 08:30 59 154/39 01/01/17 08:00 Room Air 97.0 01/01/17 07:00 97.7 20 98 97.7 Physical Exam PHYSICAL EXAM GENERAL: In bed, relaxed appearance, NAD HEENT: PERRL, OC/OP clear NECK: Supple, no JVD, no LN LUNGS: Clear HEART: S1S2, no gallop, no murmur appreciated ABD: Soft, NT, Obese EXT: No edema, no cyanosis; chronic venous changes OIL WELL ENGINEER: Alert, oriented x 3, no focal neurologic deficit SKIN: No rash IV: ok Labs Lab Laboratory Tests Test 12/31/16 10:56 12/31/16 16:36 12/31/16 20:47 01/01/17 04:10 Glucose (Fingerstick) 375 mg/dL (70-99) 281 mg/dL (70-99) 267 mg/dL (70-99) White Blood Count 7.6 x10^3/uL (4.0-11.0) Red Blood Count 3.50 x10^6/uL (3.50-5.40) Hemoglobin 10.2 g/dL (12.0-15.5) Hematocrit 30.0 % (36.0-47.0) Mean Corpuscular Volume 86 fL (79-100) Mean Corpuscular Hemoglobin 29 pg (25-35) Mean Corpuscular Hemoglobin Concent 34 g/dL (31-37) Red Cell Distribution Width 16.4 % (11.5-14.5) Platelet Count 351 x10^3/uL (140-400) Neutrophils (%) (Auto) 70 % (31-73) Lymphocytes (%) (Auto) 19 % (24-48) Monocytes (%) (Auto) 7 % (0-9) Eosinophils (%) (Auto) 4 % (0-3) Basophils (%) (Auto) 1 % (0-3) Neutrophils # (Auto) 5.3 x10^3uL (1.8-7.7) Lymphocytes # (Auto) 1.4 x10^3/uL (1.0-4.8) Monocytes # (Auto) 0.5 x10^3/uL (0.0-1.1) Eosinophils # (Auto) 0.3 x10^3/uL (0.0-0.7) Basophils # (Auto) 0.1 x10^3/uL (0.0-0.2) Prothrombin Time 25.9 SEC (11.7-14.0) Prothromb Time International Ratio 2.6 (0.8-1.1) Sodium Level 131 mmol/L (136-145) Potassium Level 4.4 mmol/L (3.5-5.1) Chloride Level 95 mmol/L (98-107) Carbon Dioxide Level 30 mmol/L (21-32) Anion Gap 6 (6-14) Blood Urea Nitrogen 58 mg/dL (7-20) Creatinine 1.4 mg/dL (0.6-1.0) Estimated GFR (Cockcroft-Gault) 36.2 Glucose Level 341 mg/dL (70-99) Calcium Level 9.8 mg/dL (8.5-10.1) Test 01/01/17 08:04 Glucose (Fingerstick) 305 mg/dL (70-99) Objective Assessment Hyperglycemia Constipation Renal insufficiency/CKD 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 Fairchild he plans Gi eval for pancreatic ? cyst/constipation. Mother of Pancreatitis. The TTE showed no evidence of vegetation, urine and BC NGTD, WBC is WNL and she has been afebrile for weeks. There are no overt signs of infection. She has appt with a new surgical instrument technician, Dr. Hensley Jan 18th ID to sign off HARJINDER PANTOJA MD Jan 01, 2017 10:16
[2017-01-01 11:00] VITALS: BP 119/41
--- NOTE | 2017-01-01 12:44 | PDOC ---
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 she would like further abd imaging, Vitals Vitals Vital Signs Date Time Temp Pulse Resp B/P (MAP) Pulse Ox O2 Delivery O2 Flow Rate FiO2 01/01/17 11:00 97.5 57 20 119/41 (67) 99 Room Air 97.5 01/01/17 08:00 97.0 Physical Exam General: Alert, Oriented X3, Cooperative, No acute distress Heart: Regular rate, Normal S1, Normal S2 Lungs: Clear, Other (No respiratory distress noted on exam) Abdomen: Normal bowel sounds, Soft, No tenderness Extremities: No clubbing, No cyanosis, No edema Skin: No rashes, No breakdown Labs LABS Laboratory Tests Test 12/31/16 16:36 12/31/16 20:47 01/01/17 04:10 01/01/17 08:04 Glucose (Fingerstick) 281 mg/dL (70-99) 267 mg/dL (70-99) 305 mg/dL (70-99) White Blood Count 7.6 x10^3/uL (4.0-11.0) Red Blood Count 3.50 x10^6/uL (3.50-5.40) Hemoglobin 10.2 g/dL (12.0-15.5) Hematocrit 30.0 % (36.0-47.0) Mean Corpuscular Volume 86 fL (79-100) Mean Corpuscular Hemoglobin 29 pg (25-35) Mean Corpuscular Hemoglobin Concent 34 g/dL (31-37) Red Cell Distribution Width 16.4 % (11.5-14.5) Platelet Count 351 x10^3/uL (140-400) Neutrophils (%) (Auto) 70 % (31-73) Lymphocytes (%) (Auto) 19 % (24-48) Monocytes (%) (Auto) 7 % (0-9) Eosinophils (%) (Auto) 4 % (0-3) Basophils (%) (Auto) 1 % (0-3) Neutrophils # (Auto) 5.3 x10^3uL (1.8-7.7) Lymphocytes # (Auto) 1.4 x10^3/uL (1.0-4.8) Monocytes # (Auto) 0.5 x10^3/uL (0.0-1.1) Eosinophils # (Auto) 0.3 x10^3/uL (0.0-0.7) Basophils # (Auto) 0.1 x10^3/uL (0.0-0.2) Prothrombin Time 25.9 SEC (11.7-14.0) Prothromb Time International Ratio 2.6 (0.8-1.1) Sodium Level 131 mmol/L (136-145) Potassium Level 4.4 mmol/L (3.5-5.1) Chloride Level 95 mmol/L (98-107) Carbon Dioxide Level 30 mmol/L (21-32) Anion Gap 6 (6-14) Blood Urea Nitrogen 58 mg/dL (7-20) Creatinine 1.4 mg/dL (0.6-1.0) Estimated GFR (Cockcroft-Gault) 36.2 Glucose Level 341 mg/dL (70-99) Calcium Level 9.8 mg/dL (8.5-10.1) Test 01/01/17 11:27 Glucose (Fingerstick) 260 mg/dL (70-99) Assessment and Plan Assessmemt and Plan Problems Medical Problems: (1) UTI (urinary tract infection) Status: Acute Problems: Comment Review of Relevant I have reviewed the following items alejandra (where applicable) has been applied. Labs Laboratory Tests Test 12/30/16 16:55 12/30/16 20:56 12/31/16 04:00 12/31/16 05:00 Glucose (Fingerstick) 229 mg/dL (70-99) 364 mg/dL (70-99) Sodium Level 133 mmol/L (136-145) Potassium Level 4.2 mmol/L (3.5-5.1) Chloride Level 98 mmol/L (98-107) Carbon Dioxide Level 28 mmol/L (21-32) Anion Gap 7 (6-14) Blood Urea Nitrogen 62 mg/dL (7-20) Creatinine 1.5 mg/dL (0.6-1.0) Estimated GFR (Cockcroft-Gault) 33.4 Glucose Level 211 mg/dL (70-99) Calcium Level 9.1 mg/dL (8.5-10.1) White Blood Count 7.4 x10^3/uL (4.0-11.0) Red Blood Count 3.11 x10^6/uL (3.50-5.40) Hemoglobin 9.2 g/dL (12.0-15.5) Hematocrit 25.8 % (36.0-47.0) Mean Corpuscular Volume 83 fL (79-100) Mean Corpuscular Hemoglobin 30 pg (25-35) Mean Corpuscular Hemoglobin Concent 36 g/dL (31-37) Red Cell Distribution Width 16.4 % (11.5-14.5) Platelet Count 293 x10^3/uL (140-400) Neutrophils (%) (Auto) 66 % (31-73) Lymphocytes (%) (Auto) 20 % (24-48) Monocytes (%) (Auto) 9 % (0-9) Eosinophils (%) (Auto) 4 % (0-3) Basophils (%) (Auto) 1 % (0-3) Neutrophils # (Auto) 4.9 x10^3uL (1.8-7.7) Lymphocytes # (Auto) 1.5 x10^3/uL (1.0-4.8) Monocytes # (Auto) 0.7 x10^3/uL (0.0-1.1) Eosinophils # (Auto) 0.3 x10^3/uL (0.0-0.7) Basophils # (Auto) 0.0 x10^3/uL (0.0-0.2) Prothrombin Time 29.6 SEC (11.7-14.0) Prothromb Time International Ratio 3.0 (0.8-1.1) Test 12/31/16 07:00 12/31/16 10:56 12/31/16 16:36 12/31/16 20:47 Glucose (Fingerstick) 205 mg/dL (70-99) 375 mg/dL (70-99) 281 mg/dL (70-99) 267 mg/dL (70-99) Test 01/01/17 04:10 01/01/17 08:04 01/01/17 11:27 White Blood Count 7.6 x10^3/uL (4.0-11.0) Red Blood Count 3.50 x10^6/uL (3.50-5.40) Hemoglobin 10.2 g/dL (12.0-15.5) Hematocrit 30.0 % (36.0-47.0) Mean Corpuscular Volume 86 fL (79-100) Mean Corpuscular Hemoglobin 29 pg (25-35) Mean Corpuscular Hemoglobin Concent 34 g/dL (31-37) Red Cell Distribution Width 16.4 % (11.5-14.5) Platelet Count 351 x10^3/uL (140-400) Neutrophils (%) (Auto) 70 % (31-73) Lymphocytes (%) (Auto) 19 % (24-48) Monocytes (%) (Auto) 7 % (0-9) Eosinophils (%) (Auto) 4 % (0-3) Basophils (%) (Auto) 1 % (0-3) Neutrophils # (Auto) 5.3 x10^3uL (1.8-7.7) Lymphocytes # (Auto) 1.4 x10^3/uL (1.0-4.8) Monocytes # (Auto) 0.5 x10^3/uL (0.0-1.1) Eosinophils # (Auto) 0.3 x10^3/uL (0.0-0.7) Basophils # (Auto) 0.1 x10^3/uL (0.0-0.2) Prothrombin Time 25.9 SEC (11.7-14.0) Prothromb Time International Ratio 2.6 (0.8-1.1) Sodium Level 131 mmol/L (136-145) Potassium Level 4.4 mmol/L (3.5-5.1) Chloride Level 95 mmol/L (98-107) Carbon Dioxide Level 30 mmol/L (21-32) Anion Gap 6 (6-14) Blood Urea Nitrogen 58 mg/dL (7-20) Creatinine 1.4 mg/dL (0.6-1.0) Estimated GFR (Cockcroft-Gault) 36.2 Glucose Level 341 mg/dL (70-99) Calcium Level 9.8 mg/dL (8.5-10.1) Glucose (Fingerstick) 305 mg/dL (70-99) 260 mg/dL (70-99) Laboratory Tests Test 12/31/16 16:36 12/31/16 20:47 01/01/17 04:10 01/01/17 08:04 Glucose (Fingerstick) 281 mg/dL (70-99) 267 mg/dL (70-99) 305 mg/dL (70-99) White Blood Count 7.6 x10^3/uL (4.0-11.0) Red Blood Count 3.50 x10^6/uL (3.50-5.40) Hemoglobin 10.2 g/dL (12.0-15.5) Hematocrit 30.0 % (36.0-47.0) Mean Corpuscular Volume 86 fL (79-100) Mean Corpuscular Hemoglobin 29 pg (25-35) Mean Corpuscular Hemoglobin Concent 34 g/dL (31-37) Red Cell Distribution Width 16.4 % (11.5-14.5) Platelet Count 351 x10^3/uL (140-400) Neutrophils (%) (Auto) 70 % (31-73) Lymphocytes (%) (Auto) 19 % (24-48) Monocytes (%) (Auto) 7 % (0-9) Eosinophils (%) (Auto) 4 % (0-3) Basophils (%) (Auto) 1 % (0-3) Neutrophils # (Auto) 5.3 x10^3uL (1.8-7.7) Lymphocytes # (Auto) 1.4 x10^3/uL (1.0-4.8) Monocytes # (Auto) 0.5 x10^3/uL (0.0-1.1) Eosinophils # (Auto) 0.3 x10^3/uL (0.0-0.7) Basophils # (Auto) 0.1 x10^3/uL (0.0-0.2) Prothrombin Time 25.9 SEC (11.7-14.0) Prothromb Time International Ratio 2.6 (0.8-1.1) Sodium Level 131 mmol/L (136-145) Potassium Level 4.4 mmol/L (3.5-5.1) Chloride Level 95 mmol/L (98-107) Carbon Dioxide Level 30 mmol/L (21-32) Anion Gap 6 (6-14) Blood Urea Nitrogen 58 mg/dL (7-20) Creatinine 1.4 mg/dL (0.6-1.0) Estimated GFR (Cockcroft-Gault) 36.2 Glucose Level 341 mg/dL (70-99) Calcium Level 9.8 mg/dL (8.5-10.1) Test 01/01/17 11:27 Glucose (Fingerstick) 260 mg/dL (70-99) Microbiology 12/28/16 Blood Culture - Preliminary, Resulted NO GROWTH AFTER 3 DAYS 12/28/16 Urine Culture - Final, Complete 12/28/16 Urine Culture Result 1 (SHERRIE) - Final, Complete Medications Current Medications Ceftriaxone Sodium 50 ml @ 100 mls/hr 1X ONCE IV Last administered on 15:29; Start 12/28/16 at 15:15; Stop 12/28/16 at 15:44; Status DC Insulin Aspart (NovoLOG) 0-7 UNITS TIDWMEALS SQ Last administered on 12/29/16 08:08; Start 12/28/16 at 17:00; Stop 12/29/16 at 16:00; Status DC Dextrose (Dextrose 50%-Water Syringe) 12.5 gm PRN Q15MIN PRN IV SEE COMMENTS; Start 12/28/16 at 15:30; Stop 12/29/16 at 17:02; Status DC Sodium Chloride 1,000 ml @ 1,000 mls/hr 1X ONCE IV Last administered on 15:48; Start 12/28/16 at 15:45; Stop 12/28/16 at 16:44; Status DC Ondansetron HCl (Zofran) 4 mg PRN Q8HRS PRN IV NAUSEA/VOMITING; Start 12/28/16 at 16:30; Stop 12/29/16 at 16:29; Status DC Insulin Aspart (NovoLOG) 10 units 1X ONCE SQ Last administered on 12/28/16 17 :35; Start 12/28/16 at 17:15; Stop 12/28/16 at 17:16; Status DC Insulin Aspart (NovoLOG) 10 units 1X ONCE SQ Last administered on 12/28/16 19 :24; Start 12/28/16 at 19:15; Stop 12/28/16 at 19:16; Status DC Acetaminophen (Tylenol) 500 mg PRN Q8HRS PRN PO PAIN Last administered on 20:01; Start 12/28/16 at 20:00 Amlodipine Besylate (Norvasc) 10 mg DAILY PO Last administered on 01/01/17 08: 30; Start 12/29/16 at 09:00 Aspirin (Derek Aspirin) 325 mg [id number] PO Last administered on 01/01/17 08: 30; Start 12/29/16 at 08:00 Atorvastatin Calcium (Lipitor) 40 mg HS PO Last administered on 12/31/16 21:17 ; Start 12/28/16 at 21:00 Calcium/Vitamin D (Oscal D 500mg/ 200uts) 1 tab DAILY PO Last administered on 08:30; Start 12/29/16 at 09:00 Docusate Sodium (Colace) 200 mg HS PO Last administered on 12/31/16 21:17; Start 12/28/16 at 21:00 Furosemide (Lasix) 80 mg [id number] PO Last administered on 01/01/17 08:29; Start 12/29/16 at 09:00 Acetaminophen/ Hydrocodone Bitart (Lortab 5/325) 1 tab Q12HR PRN PO PAIN Last administered on 12/31/16 21:19; Start 12/28/16 at 20:00 Meclizine HCl (Antivert) 12.5 mg BID PO Last administered on 01/01/17 08:30; Start 12/28/16 at 21:00 Meloxicam (Mobic) 7.5 mg DAILY PO Last administered on 12/29/16 08:45; Start 12/29/16 at 09:00; Stop 12/29/16 at 11:53; Status DC Metoprolol Tartrate (Lopressor) 25 mg BID PO Last administered on 01/01/17 08: 30; Start 12/28/16 at 21:00 Nitroglycerin (Nitrostat) 0.4 mg PRN Q5MIN PRN SL CHEST PAIN; Start 12/28/16 at 20:00 Pantoprazole Sodium (Protonix) 40 mg DAILYAC PO Last administered on 01/01/17 06:37; Start 12/29/16 at 07:30 Spironolactone (Aldactone) 25 mg DAILY PO Last administered on 01/01/17 08:29 ; Start 12/29/16 at 09:00 Warfarin Sodium (Coumadin) 4 mg QM-F PO Last administered on 12/29/16 17:27; Start 12/29/16 at 16:00 Warfarin Sodium (Coumadin) 4 mg QSA PO Last administered on 12/30/16 17:02; Start 12/30/16 at 16:00 Isosorbide Mononitrate (Imdur) 60 mg DAILY PO Last administered on 01/01/17 08 :29; Start 12/29/16 at 09:00 Losartan Potassium (Cozaar) 50 mg DAILY PO Last administered on 01/01/17 08:30 ; Start 12/29/16 at 09:00 Levofloxacin (Levaquin) 250 mg DAILY06 PO Last administered on 12/29/16 06:30 ; Start 12/29/16 at 06:00; Stop 12/29/16 at 09:49; Status DC Warfarin Sodium (Coumadin Per Pharmacy) 1 each PRN DAILY PRN MC SEE COMMENTS Last administered on 12/31/16 09:03; Start 12/28/16 at 20:45 Warfarin Sodium (Coumadin) 4 mg 1X WARF ONCE PO Last administered on 22:33; Start 12/28/16 at 21:29; Stop 12/28/16 at 21:30; Status DC Insulin Aspart (NovoLOG) 5 units 1X ONCE SQ Last administered on 12/29/16 08: 51; Start 12/29/16 at 08:30; Stop 12/29/16 at 08:31; Status DC Insulin Human Regular (NovoLIN R VIAL) 10 unit 1X ONCE IV Last administered on 12/29/16 12:18; Start 12/29/16 at 12:15; Stop 12/29/16 at 12:16; Status DC Sodium Chloride 1,000 ml @ 75 mls/hr [id number] IV Last administered on 00:25; Start 12/29/16 at 12:00; Stop 12/31/16 at 13:45; Status DC Lidocaine (Lidoderm) 1 patch PRN DAILY PRN TD PAIN Last administered on 06:37; Start 12/29/16 at 13:30 Insulin Detemir (Levemir) 20 units QHS SQ Last administered on 12/31/16 21:29 ; Start 12/29/16 at 21:00 Insulin Aspart (NovoLOG) 6 units TIDAC SQ Last administered on 01/01/17 12:12 ; Start 12/29/16 at 16:30 Insulin Aspart (NovoLOG) 0-9 UNITS QIDACHS SQ Last administered on 01/01/17 12 :13; Start 12/29/16 at 16:30 Dextrose (Dextrose 50%-Water Syringe) 12.5 gm PRN Q15MIN PRN IV SEE COMMENTS; Start 12/29/16 at 16:00 Insulin Aspart (NovoLOG) 20 units 1X ONCE SQ Last administered on 12/29/16 17 :32; Start 12/29/16 at 17:00; Stop 12/29/16 at 17:02; Status DC Insulin Aspart (NovoLOG) 15 units 1X ONCE SQ Last administered on 12/29/16 20 :58; Start 12/29/16 at 21:00; Stop 12/29/16 at 21:01; Status DC Insulin Aspart (NovoLOG) 15 units 1X ONCE SQ Last administered on 12/30/16 21 :50; Start 12/30/16 at 21:30; Stop 12/30/16 at 21:32; Status DC Polyethylene Glycol (miraLAX PACKET) 17 gm DAILY PO Last administered on 08:29; Start 12/31/16 at 15:00 Bisacodyl (Dulcolax Tab) 10 mg PRN DAILY PRN PO CONSTIPATION Last administered on 12/31/16 17:07; Start 12/31/16 at 14:45 Active Scripts Active Reported Levaquin (Levofloxacin) 500 Mg Tablet 250 Mg PO DAILY for 14 days order started 12/22/16 Coumadin (Warfarin Sodium) 4 Mg Tablet 1 Tab PO QSA Coumadin (Warfarin Sodium) 4 Mg Tablet 1 Tab PO QM-F fr Mon til Sat Aspirin 325 Mg Tablet 1 Tab PO DAILY Calcium 500 + Vit D 200 Tablet (Calcium Carbonate/Vitamin D3) 1 Each Tablet 1 Each PO DAILY TAKE NEXT DOSE TOMORROW 11/14 IN AM Novolog Flexpen (Insulin Aspart) 100 Unit/1 Ml Insuln.pen 1 Unit SQ 150-200= 4 units 201-250= 7 units 251-300= 10 units 301-350= 13 units 351-400= 16 units 401-450= 18 units 451-500= 20 units 501-550= 22 units notify if bg < 110 NITROGLYCERIN SubLingual (Nitroglycerin) 0.4 Mg Tab.subl 0.4 Mg SL PRN Q5MIN PRN Protonix (Pantoprazole Sodium) 40 Mg Tablet.dr 1 Tab PO DAILY TAKE NEXT DOSE TOMORROW 11/14 IN AM Metoprolol Tartrate 25 Mg Tablet 1 Tab PO BID TAKE NEXT DOSE TONIGHT 710 AT BEDTIME Acetaminophen 500 Mg Tablet 500 Mg PO PRN Q8HRS PRN Potassium Chloride 10 Meq Capsule.er 10 Meq PO DAILY Meloxicam 7.5 Mg Tablet 1 Tab PO DAILY TAKE NEXT DOSE TOMORROW 11/14 IN AM Meclizine Hcl 12.5 Mg Tablet 1 Tab PO BID TAKE NEXT DOSE TONIGHT 07 AT BEDTIME Hydrocodone-Apap 5-325 (Hydrocodone Bit/Acetaminophen) 1 Each Tablet 1 Tab PO Q12HR PRN Spironolactone 25 Mg Tablet 25 Mg PO DAILY TAKE NEXT DOSE TOMORROW 11/14 IN AM Furosemide 80 Mg Tablet 80 Mg PO BID TAKE NEXT DOSE TOMORROW 11/14 IN AM Stool Softener (Docusate Sodium) 100 Mg Capsule 200 Mg PO HS TAKE NEXT DOSE TONIGHT 07/10 AT BEDTIME Amlodipine Besylate 10 Mg Tablet 10 Mg PO DAILY TAKE NEXT DOSE TOMORROW 11/14 IN AM hold if sbp less than 100 Losartan Potassium 100 Mg Tablet 50 Mg PO DAILY TAKE NEXT DOSE TOMORROW 11/14 IN AM Atorvastatin Calcium 40 Mg Tablet 40 Mg PO HS TAKE NEXT DOSE TONIGHT 07 AT BEDTIME Isosorbide Mononitrate Er (Isosorbide Mononitrate) 60 Mg Tab.er.24h 60 Mg PO DAILY TAKE NEXT DOSE TOMORROW 11/14 IN AM Vitals/I & O Vital Sign - Last 24 Hours 12/31/16 12/31/16 12/31/16 12/31/16 14:41 19:00 20:00 21:18 Temp 97.7 98.1 97.7 98.1 Pulse 61 65 59 Resp 18 18 B/P (MAP) 130/46 (74) 149/47 (81) 130/54 Pulse Ox 97 98 O2 Delivery Room Air Room Air Room Air 12/31/16 12/31/16 12/31/16 01/01/17 21:19 22:19 23:00 03:00 Temp 96.9 97.7 96.9 97.7 Pulse 62 54 Resp 20 20 20 20 B/P (MAP) 142/50 (80) 140/45 (76) Pulse Ox 98 93 93 95 O2 Delivery Room Air Room Air Room Air Room Air O2 Flow Rate 97.0 97.0 01/01/17 01/01/17 01/01/17 01/01/17 07:00 08:00 08:29 08:30 Temp 97.7 97.7 Pulse 59 59 59 Resp 20 B/P (MAP) 154/39 (77) 154/39 154/39 Pulse Ox 98 O2 Delivery Room Air Room Air O2 Flow Rate 97.0 01/01/17 01/01/17 01/01/17 08:30 08:30 11:00 Temp 97.5 97.5 Pulse 59 59 57 Resp 20 B/P (MAP) 154/39 154/39 119/41 (67) Pulse Ox 99 O2 Delivery Room Air Intake and Output 12/31/16 12/31/16 01/01/17 15:00 23:00 07:00 Intake Total 300 ml 420 ml 3353 ml Balance 300 ml 420 ml 3353 ml ZEE POLO MD Jan 01, 2017 12:44
[2017-01-01] MEDS ORDERED: BISACODYL 10 MG SUPP.RECT. PR PRN (12:45)
[2017-01-01] MEDS ORDERED: SODIUM PHOSPHATES 19/7GM 133 ML ENEMA. PR PRN (12:45)
--- NOTE | 2017-01-01 13:05 | PDOC ---
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 FSBS Problems: COMMENT/RELEVANT DATA Meds Current Medications Medications (Trade) Dose Ordered Sig/Huyen Start Time Stop Time Status Last Admin Dose Admin Acetaminophen (Tylenol) 500 mg PRN Q8HRS PRN 12/28/16 20:00 12/29/16 20:01 500 MG Acetaminophen/ Hydrocodone Bitart (Lortab 5/325) 1 tab Q12HR PRN 12/28/16 20:00 12/31/16 21:19 1 TAB Amlodipine Besylate (Norvasc) 10 mg DAILY 12/29/16 09:00 01/01/17 08:30 10 MG Aspirin (Derek Aspirin) 325 mg [id number] 12/29/16 08:00 01/01/17 08:30 325 MG Atorvastatin Calcium (Lipitor) 40 mg HS 12/28/16 21:00 12/31/16 21:17 40 MG Bisacodyl (Dulcolax Supp) 10 mg PRN DAILY PRN 01/01/17 12:45 Bisacodyl (Dulcolax Tab) 10 mg PRN DAILY PRN 12/31/16 14:45 12/31/16 17:07 10 MG Calcium/Vitamin D (Oscal D 500mg/ 200uts) 1 tab DAILY 12/29/16 09:00 01/01/17 08:30 1 TAB Ceftriaxone Sodium 50 ml @ 100 mls/hr 1X ONCE 12/28/16 15:15 12/28/16 15:44 DC 12/28/16 15:29 100 MLS/HR Dextrose (Dextrose 50%-Water Syringe) 12.5 gm PRN Q15MIN PRN 12/29/16 16:00 Docusate Sodium (Colace) 200 mg HS 12/28/16 21:00 12/31/16 21:17 200 MG Furosemide (Lasix) 80 mg BID92 12/29/16 09:00 01/01/17 08:29 80 MG Insulin Aspart (NovoLOG) 9 units TIDAC 01/01/17 16:30 Insulin Detemir (Levemir) 25 units QHS 01/01/17 21:00 Insulin Human Regular (NovoLIN R VIAL) 10 unit 1X ONCE 12/29/16 12:15 12/29/16 12:16 DC 12/29/16 12:18 10 UNIT Isosorbide Mononitrate (Imdur) 60 mg DAILY 12/29/16 09:00 01/01/17 08:29 60 MG Levofloxacin (Levaquin) 250 mg DAILY06 12/29/16 06:00 12/29/16 09:49 DC 12/29/16 06:30 250 MG Lidocaine (Lidoderm) 1 patch PRN DAILY PRN 12/29/16 13:30 01/01/17 06:37 1 PATCH Losartan Potassium (Cozaar) 50 mg DAILY 12/29/16 09:00 01/01/17 08:30 50 MG Meclizine HCl (Antivert) 12.5 mg BID 12/28/16 21:00 01/01/17 08:30 12.5 MG Meloxicam (Mobic) 7.5 mg DAILY 12/29/16 09:00 12/29/16 11:53 DC 12/29/16 08:45 7.5 MG Metoprolol Tartrate (Lopressor) 25 mg BID 12/28/16 21:00 01/01/17 08:30 25 MG Nitroglycerin (Nitrostat) 0.4 mg PRN Q5MIN PRN 12/28/16 20:00 Ondansetron HCl (Zofran) 4 mg PRN Q8HRS PRN 12/28/16 16:30 12/29/16 16:29 DC Pantoprazole Sodium (Protonix) 40 mg DAILYAC 12/29/16 07:30 01/01/17 06:37 40 MG Polyethylene Glycol (miraLAX PACKET) 17 gm DAILY 8/27/17 15:00 01/01/17 08:29 17 GM Sodium Monofluorophosphate (Fleet Adult) 133 ml PRN DAILY PRN 01/01/17 12:45 Sodium Chloride 1,000 ml @ 75 mls/hr [id number] 12/29/16 12:00 12/31/16 13:45 DC 12/31/16 00:25 75 MLS/HR Spironolactone (Aldactone) 25 mg DAILY 12/29/16 09:00 01/01/17 08:29 25 MG Warfarin Sodium (Coumadin Per Pharmacy) 1 each PRN DAILY PRN 12/28/16 20:45 01/01/17 12:33 1 EACH Warfarin Sodium (Coumadin) 4 mg 1X WARF ONCE 12/28/16 21:29 12/28/16 21:30 DC 12/28/16 22:33 4 MG Lab Laboratory Tests Test 12/31/16 16:36 12/31/16 20:47 01/01/17 04:10 01/01/17 08:04 Glucose (Fingerstick) 281 mg/dL (70-99) 267 mg/dL (70-99) 305 mg/dL (70-99) White Blood Count 7.6 x10^3/uL (4.0-11.0) Red Blood Count 3.50 x10^6/uL (3.50-5.40) Hemoglobin 10.2 g/dL (12.0-15.5) Hematocrit 30.0 % (36.0-47.0) Mean Corpuscular Volume 86 fL (79-100) Mean Corpuscular Hemoglobin 29 pg (25-35) Mean Corpuscular Hemoglobin Concent 34 g/dL (31-37) Red Cell Distribution Width 16.4 % (11.5-14.5) Platelet Count 351 x10^3/uL (140-400) Neutrophils (%) (Auto) 70 % (31-73) Lymphocytes (%) (Auto) 19 % (24-48) Monocytes (%) (Auto) 7 % (0-9) Eosinophils (%) (Auto) 4 % (0-3) Basophils (%) (Auto) 1 % (0-3) Neutrophils # (Auto) 5.3 x10^3uL (1.8-7.7) Lymphocytes # (Auto) 1.4 x10^3/uL (1.0-4.8) Monocytes # (Auto) 0.5 x10^3/uL (0.0-1.1) Eosinophils # (Auto) 0.3 x10^3/uL (0.0-0.7) Basophils # (Auto) 0.1 x10^3/uL (0.0-0.2) Prothrombin Time 25.9 SEC (11.7-14.0) Prothromb Time International Ratio 2.6 (0.8-1.1) Sodium Level 131 mmol/L (136-145) Potassium Level 4.4 mmol/L (3.5-5.1) Chloride Level 95 mmol/L (98-107) Carbon Dioxide Level 30 mmol/L (21-32) Anion Gap 6 (6-14) Blood Urea Nitrogen 58 mg/dL (7-20) Creatinine 1.4 mg/dL (0.6-1.0) Estimated GFR (Cockcroft-Gault) 36.2 Glucose Level 341 mg/dL (70-99) Calcium Level 9.8 mg/dL (8.5-10.1) Test 01/01/17 11:27 Glucose (Fingerstick) 260 mg/dL (70-99) JULIO C BARRIOS MD Jan 01, 2017 13:05
--- NOTE | 2017-01-01 13:37 | PDOC ---
PROGRESS NOTES Subjective Subjective Pt continues to be weak, constipated. Sitting up in bed upon arrival Blood sugars remain >300 today Denies chest pain, shortness of breath Objective Objective Vital Signs Date Time Temp Pulse Resp B/P (MAP) Pulse Ox O2 Delivery O2 Flow Rate FiO2 01/01/17 11:00 97.5 57 20 119/41 (67) 99 Room Air 97.5 01/01/17 08:00 97.0 Intake and Output 01/01/17 07:00 Intake Total 4073 ml Balance 4073 ml Intake Oral 4073 ml # Voids 6 Physical Exam Physical Exam No significant changes Assessment Assessment 1) Hyperglycemia 2) Uncontrolled DBMT2 2) Hx of endocarditis 3) CAD 4) HTN 6) Hx [place] Plan Plan of Care I am concerned about her blood sugars remaining uncontrolled, >300. Possibility of infection vs neoplasm of the pancreas. She will receive an MRI for follow up of pancreatic findings on CT. Pt has prior anaphylactic reaction to contrast. She remains compensated cardiac ramos. Thank you for involving us in her care! Comment Review of Relevant I have reviewed the following items alejandra (where applicable) has been applied. Labs Laboratory Tests Test 12/30/16 16:55 12/30/16 20:56 12/31/16 04:00 12/31/16 05:00 Glucose (Fingerstick) 229 mg/dL (70-99) 364 mg/dL (70-99) Sodium Level 133 mmol/L (136-145) Potassium Level 4.2 mmol/L (3.5-5.1) Chloride Level 98 mmol/L (98-107) Carbon Dioxide Level 28 mmol/L (21-32) Anion Gap 7 (6-14) Blood Urea Nitrogen 62 mg/dL (7-20) Creatinine 1.5 mg/dL (0.6-1.0) Estimated GFR (Cockcroft-Gault) 33.4 Glucose Level 211 mg/dL (70-99) Calcium Level 9.1 mg/dL (8.5-10.1) White Blood Count 7.4 x10^3/uL (4.0-11.0) Red Blood Count 3.11 x10^6/uL (3.50-5.40) Hemoglobin 9.2 g/dL (12.0-15.5) Hematocrit 25.8 % (36.0-47.0) Mean Corpuscular Volume 83 fL (79-100) Mean Corpuscular Hemoglobin 30 pg (25-35) Mean Corpuscular Hemoglobin Concent 36 g/dL (31-37) Red Cell Distribution Width 16.4 % (11.5-14.5) Platelet Count 293 x10^3/uL (140-400) Neutrophils (%) (Auto) 66 % (31-73) Lymphocytes (%) (Auto) 20 % (24-48) Monocytes (%) (Auto) 9 % (0-9) Eosinophils (%) (Auto) 4 % (0-3) Basophils (%) (Auto) 1 % (0-3) Neutrophils # (Auto) 4.9 x10^3uL (1.8-7.7) Lymphocytes # (Auto) 1.5 x10^3/uL (1.0-4.8) Monocytes # (Auto) 0.7 x10^3/uL (0.0-1.1) Eosinophils # (Auto) 0.3 x10^3/uL (0.0-0.7) Basophils # (Auto) 0.0 x10^3/uL (0.0-0.2) Prothrombin Time 29.6 SEC (11.7-14.0) Prothromb Time International Ratio 3.0 (0.8-1.1) Test 12/31/16 07:00 12/31/16 10:56 12/31/16 16:36 12/31/16 20:47 Glucose (Fingerstick) 205 mg/dL (70-99) 375 mg/dL (70-99) 281 mg/dL (70-99) 267 mg/dL (70-99) Test 01/01/17 04:10 01/01/17 08:04 01/01/17 11:27 White Blood Count 7.6 x10^3/uL (4.0-11.0) Red Blood Count 3.50 x10^6/uL (3.50-5.40) Hemoglobin 10.2 g/dL (12.0-15.5) Hematocrit 30.0 % (36.0-47.0) Mean Corpuscular Volume 86 fL (79-100) Mean Corpuscular Hemoglobin 29 pg (25-35) Mean Corpuscular Hemoglobin Concent 34 g/dL (31-37) Red Cell Distribution Width 16.4 % (11.5-14.5) Platelet Count 351 x10^3/uL (140-400) Neutrophils (%) (Auto) 70 % (31-73) Lymphocytes (%) (Auto) 19 % (24-48) Monocytes (%) (Auto) 7 % (0-9) Eosinophils (%) (Auto) 4 % (0-3) Basophils (%) (Auto) 1 % (0-3) Neutrophils # (Auto) 5.3 x10^3uL (1.8-7.7) Lymphocytes # (Auto) 1.4 x10^3/uL (1.0-4.8) Monocytes # (Auto) 0.5 x10^3/uL (0.0-1.1) Eosinophils # (Auto) 0.3 x10^3/uL (0.0-0.7) Basophils # (Auto) 0.1 x10^3/uL (0.0-0.2) Prothrombin Time 25.9 SEC (11.7-14.0) Prothromb Time International Ratio 2.6 (0.8-1.1) Sodium Level 131 mmol/L (136-145) Potassium Level 4.4 mmol/L (3.5-5.1) Chloride Level 95 mmol/L (98-107) Carbon Dioxide Level 30 mmol/L (21-32) Anion Gap 6 (6-14) Blood Urea Nitrogen 58 mg/dL (7-20) Creatinine 1.4 mg/dL (0.6-1.0) Estimated GFR (Cockcroft-Gault) 36.2 Glucose Level 341 mg/dL (70-99) Calcium Level 9.8 mg/dL (8.5-10.1) Glucose (Fingerstick) 305 mg/dL (70-99) 260 mg/dL (70-99) Laboratory Tests Test 12/31/16 16:36 12/31/16 20:47 01/01/17 04:10 01/01/17 08:04 Glucose (Fingerstick) 281 mg/dL (70-99) 267 mg/dL (70-99) 305 mg/dL (70-99) White Blood Count 7.6 x10^3/uL (4.0-11.0) Red Blood Count 3.50 x10^6/uL (3.50-5.40) Hemoglobin 10.2 g/dL (12.0-15.5) Hematocrit 30.0 % (36.0-47.0) Mean Corpuscular Volume 86 fL (79-100) Mean Corpuscular Hemoglobin 29 pg (25-35) Mean Corpuscular Hemoglobin Concent 34 g/dL (31-37) Red Cell Distribution Width 16.4 % (11.5-14.5) Platelet Count 351 x10^3/uL (140-400) Neutrophils (%) (Auto) 70 % (31-73) Lymphocytes (%) (Auto) 19 % (24-48) Monocytes (%) (Auto) 7 % (0-9) Eosinophils (%) (Auto) 4 % (0-3) Basophils (%) (Auto) 1 % (0-3) Neutrophils # (Auto) 5.3 x10^3uL (1.8-7.7) Lymphocytes # (Auto) 1.4 x10^3/uL (1.0-4.8) Monocytes # (Auto) 0.5 x10^3/uL (0.0-1.1) Eosinophils # (Auto) 0.3 x10^3/uL (0.0-0.7) Basophils # (Auto) 0.1 x10^3/uL (0.0-0.2) Prothrombin Time 25.9 SEC (11.7-14.0) Prothromb Time International Ratio 2.6 (0.8-1.1) Sodium Level 131 mmol/L (136-145) Potassium Level 4.4 mmol/L (3.5-5.1) Chloride Level 95 mmol/L (98-107) Carbon Dioxide Level 30 mmol/L (21-32) Anion Gap 6 (6-14) Blood Urea Nitrogen 58 mg/dL (7-20) Creatinine 1.4 mg/dL (0.6-1.0) Estimated GFR (Cockcroft-Gault) 36.2 Glucose Level 341 mg/dL (70-99) Calcium Level 9.8 mg/dL (8.5-10.1) Test 01/01/17 11:27 Glucose (Fingerstick) 260 mg/dL (70-99) Microbiology 12/28/16 Blood Culture - Preliminary, Resulted NO GROWTH AFTER 3 DAYS 12/28/16 Urine Culture - Final, Complete 12/28/16 Urine Culture Result 1 (SHERRIE) - Final, Complete Medications Current Medications Ceftriaxone Sodium 50 ml @ 100 mls/hr 1X ONCE IV Last administered on 15:29; Start 12/28/16 at 15:15; Stop 12/28/16 at 15:44; Status DC Insulin Aspart (NovoLOG) 0-7 UNITS TIDWMEALS SQ Last administered on 12/29/16 08:08; Start 12/28/16 at 17:00; Stop 12/29/16 at 16:00; Status DC Dextrose (Dextrose 50%-Water Syringe) 12.5 gm PRN Q15MIN PRN IV SEE COMMENTS; Start 12/28/16 at 15:30; Stop 12/29/16 at 17:02; Status DC Sodium Chloride 1,000 ml @ 1,000 mls/hr 1X ONCE IV Last administered on 15:48; Start 12/28/16 at 15:45; Stop 12/28/16 at 16:44; Status DC Ondansetron HCl (Zofran) 4 mg PRN Q8HRS PRN IV NAUSEA/VOMITING; Start 12/28/16 at 16:30; Stop 12/29/16 at 16:29; Status DC Insulin Aspart (NovoLOG) 10 units 1X ONCE SQ Last administered on 12/28/16 17 :35; Start 12/28/16 at 17:15; Stop 12/28/16 at 17:16; Status DC Insulin Aspart (NovoLOG) 10 units 1X ONCE SQ Last administered on 12/28/16 19 :24; Start 12/28/16 at 19:15; Stop 12/28/16 at 19:16; Status DC Acetaminophen (Tylenol) 500 mg PRN Q8HRS PRN PO PAIN Last administered on 20:01; Start 12/28/16 at 20:00 Amlodipine Besylate (Norvasc) 10 mg DAILY PO Last administered on 01/01/17 08: 30; Start 12/29/16 at 09:00 Aspirin (Derek Aspirin) 325 mg [id number] PO Last administered on 01/01/17 08: 30; Start 12/29/16 at 08:00 Atorvastatin Calcium (Lipitor) 40 mg HS PO Last administered on 12/31/16 21:17 ; Start 12/28/16 at 21:00 Calcium/Vitamin D (Oscal D 500mg/ 200uts) 1 tab DAILY PO Last administered on 08:30; Start 12/29/16 at 09:00 Docusate Sodium (Colace) 200 mg HS PO Last administered on 12/31/16 21:17; Start 12/28/16 at 21:00 Furosemide (Lasix) 80 mg BID92 PO Last administered on 01/01/17 13:09; Start 12/29/16 at 09:00 Acetaminophen/ Hydrocodone Bitart (Lortab 5/325) 1 tab Q12HR PRN PO PAIN Last administered on 12/31/16 21:19; Start 12/28/16 at 20:00 Meclizine HCl (Antivert) 12.5 mg BID PO Last administered on 01/01/17 08:30; Start 12/28/16 at 21:00 Meloxicam (Mobic) 7.5 mg DAILY PO Last administered on 12/29/16 08:45; Start 12/29/16 at 09:00; Stop 12/29/16 at 11:53; Status DC Metoprolol Tartrate (Lopressor) 25 mg BID PO Last administered on 01/01/17 08: 30; Start 12/28/16 at 21:00 Nitroglycerin (Nitrostat) 0.4 mg PRN Q5MIN PRN SL CHEST PAIN; Start 12/28/16 at 20:00 Pantoprazole Sodium (Protonix) 40 mg DAILYAC PO Last administered on 01/01/17 06:37; Start 12/29/16 at 07:30 Spironolactone (Aldactone) 25 mg DAILY PO Last administered on 01/01/17 08:29 ; Start 12/29/16 at 09:00 Warfarin Sodium (Coumadin) 4 mg QM-F PO Last administered on 12/29/16 17:27; Start 12/29/16 at 16:00 Warfarin Sodium (Coumadin) 4 mg QSA PO Last administered on 12/30/16 17:02; Start 12/30/16 at 16:00 Isosorbide Mononitrate (Imdur) 60 mg DAILY PO Last administered on 01/01/17 08 :29; Start 12/29/16 at 09:00 Losartan Potassium (Cozaar) 50 mg DAILY PO Last administered on 01/01/17 08:30 ; Start 12/29/16 at 09:00 Levofloxacin (Levaquin) 250 mg DAILY06 PO Last administered on 12/29/16 06:30 ; Start 12/29/16 at 06:00; Stop 12/29/16 at 09:49; Status DC Warfarin Sodium (Coumadin Per Pharmacy) 1 each PRN DAILY PRN MC SEE COMMENTS Last administered on 01/01/17 12:33; Start 12/28/16 at 20:45 Warfarin Sodium (Coumadin) 4 mg 1X WARF ONCE PO Last administered on 22:33; Start 12/28/16 at 21:29; Stop 12/28/16 at 21:30; Status DC Insulin Aspart (NovoLOG) 5 units 1X ONCE SQ Last administered on 12/29/16 08: 51; Start 12/29/16 at 08:30; Stop 12/29/16 at 08:31; Status DC Insulin Human Regular (NovoLIN R VIAL) 10 unit 1X ONCE IV Last administered on 12/29/16 12:18; Start 12/29/16 at 12:15; Stop 12/29/16 at 12:16; Status DC Sodium Chloride 1,000 ml @ 75 mls/hr [id number] IV Last administered on 00:25; Start 12/29/16 at 12:00; Stop 12/31/16 at 13:45; Status DC Lidocaine (Lidoderm) 1 patch PRN DAILY PRN TD PAIN Last administered on 06:37; Start 12/29/16 at 13:30 Insulin Detemir (Levemir) 20 units QHS SQ Last administered on 12/31/16 21:29 ; Start 12/29/16 at 21:00; Stop 01/01/17 at 12:24; Status DC Insulin Aspart (NovoLOG) 6 units TIDAC SQ Last administered on 01/01/17 12:12 ; Start 12/29/16 at 16:30; Stop 01/01/17 at 12:24; Status DC Insulin Aspart (NovoLOG) 0-9 UNITS QIDACHS SQ Last administered on 01/01/17 12 :13; Start 12/29/16 at 16:30 Dextrose (Dextrose 50%-Water Syringe) 12.5 gm PRN Q15MIN PRN IV SEE COMMENTS; Start 12/29/16 at 16:00 Insulin Aspart (NovoLOG) 20 units 1X ONCE SQ Last administered on 12/29/16 17 :32; Start 12/29/16 at 17:00; Stop 12/29/16 at 17:02; Status DC Insulin Aspart (NovoLOG) 15 units 1X ONCE SQ Last administered on 12/29/16 20 :58; Start 12/29/16 at 21:00; Stop 12/29/16 at 21:01; Status DC Insulin Aspart (NovoLOG) 15 units 1X ONCE SQ Last administered on 12/30/16 21 :50; Start 12/30/16 at 21:30; Stop 12/30/16 at 21:32; Status DC Polyethylene Glycol (miraLAX PACKET) 17 gm DAILY PO Last administered on 08:29; Start 12/31/16 at 15:00 Bisacodyl (Dulcolax Tab) 10 mg PRN DAILY PRN PO CONSTIPATION Last administered on 12/31/16 17:07; Start 12/31/16 at 14:45 Insulin Aspart (NovoLOG) 10 units TIDAC SQ ; Start 01/01/17 at 16:30; Stop 01/01 at 16:30; Status DC Insulin Detemir (Levemir) 28 units QHS SQ ; Start 01/01/17 at 21:00; Stop at 21:00; Status DC Bisacodyl (Dulcolax Supp) 10 mg PRN DAILY PRN GA CONSTIPATION Last administered on 01/01/17 13:09; Start 01/01/17 at 12:45 Sodium Monofluorophosphate (Fleet Adult) 133 ml PRN DAILY PRN GA CONSTIPATION; Start 01/01/17 at 12:45 Insulin Aspart (NovoLOG) 9 units TIDAC SQ ; Start 01/01/17 at 16:30 Insulin Detemir (Levemir) 25 units QHS SQ ; Start 01/01/17 at 21:00 Active Scripts Active Reported Levaquin (Levofloxacin) 500 Mg Tablet 250 Mg PO DAILY for 14 days order started 12/22/16 Coumadin (Warfarin Sodium) 4 Mg Tablet 1 Tab PO QSA Coumadin (Warfarin Sodium) 4 Mg Tablet 1 Tab PO QM-F fr Mon til Sat Aspirin 325 Mg Tablet 1 Tab PO DAILY Calcium 500 + Vit D 200 Tablet (Calcium Carbonate/Vitamin D3) 1 Each Tablet 1 Each PO DAILY TAKE NEXT DOSE TOMORROW 11/14 IN AM Novolog Flexpen (Insulin Aspart) 100 Unit/1 Ml Insuln.pen 1 Unit SQ 150-200= 4 units 201-250= 7 units 251-300= 10 units 301-350= 13 units 351-400= 16 units 401-450= 18 units 451-500= 20 units 501-550= 22 units notify if bg < 110 NITROGLYCERIN SubLingual (Nitroglycerin) 0.4 Mg Tab.subl 0.4 Mg SL PRN Q5MIN PRN Protonix (Pantoprazole Sodium) 40 Mg Tablet.dr 1 Tab PO DAILY TAKE NEXT DOSE TOMORROW 11/14 IN AM Metoprolol Tartrate 25 Mg Tablet 1 Tab PO BID TAKE NEXT DOSE TONIGHT 7/10 AT BEDTIME Acetaminophen 500 Mg Tablet 500 Mg PO PRN Q8HRS PRN Potassium Chloride 10 Meq Capsule.er 10 Meq PO DAILY Meloxicam 7.5 Mg Tablet 1 Tab PO DAILY TAKE NEXT DOSE TOMORROW 11/14 IN AM Meclizine Hcl 12.5 Mg Tablet 1 Tab PO BID TAKE NEXT DOSE TONIGHT 07 AT BEDTIME Hydrocodone-Apap 5-325 (Hydrocodone Bit/Acetaminophen) 1 Each Tablet 1 Tab PO Q12HR PRN Spironolactone 25 Mg Tablet 25 Mg PO DAILY TAKE NEXT DOSE TOMORROW 11/14 IN AM Furosemide 80 Mg Tablet 80 Mg PO BID TAKE NEXT DOSE TOMORROW 11/14 IN AM Stool Softener (Docusate Sodium) 100 Mg Capsule 200 Mg PO HS TAKE NEXT DOSE TONIGHT 07/10 AT BEDTIME Amlodipine Besylate 10 Mg Tablet 10 Mg PO DAILY TAKE NEXT DOSE TOMORROW 11/14 IN AM hold if sbp less than 100 Losartan Potassium 100 Mg Tablet 50 Mg PO DAILY TAKE NEXT DOSE TOMORROW 11/14 IN AM Atorvastatin Calcium 40 Mg Tablet 40 Mg PO HS TAKE NEXT DOSE TONIGHT 07/10 AT BEDTIME Isosorbide Mononitrate Er (Isosorbide Mononitrate) 60 Mg Tab.er.24h 60 Mg PO DAILY TAKE NEXT DOSE TOMORROW 11/14 IN AM Vitals/I & O Vital Sign - Last 24 Hours 12/31/16 12/31/16 12/31/16 12/31/16 14:41 19:00 20:00 21:18 Temp 97.7 98.1 97.7 98.1 Pulse 61 65 59 Resp 18 18 B/P (MAP) 130/46 (74) 149/47 (81) 130/54 Pulse Ox 97 98 O2 Delivery Room Air Room Air Room Air 12/31/16 12/31/16 12/31/16 01/01/17 21:19 22:19 23:00 03:00 Temp 96.9 97.7 96.9 97.7 Pulse 62 54 Resp 20 20 20 20 B/P (MAP) 142/50 (80) 140/45 (76) Pulse Ox 98 93 93 95 O2 Delivery Room Air Room Air Room Air Room Air O2 Flow Rate 97.0 97.0 01/01/17 01/01/17 01/01/17 01/01/17 07:00 08:00 08:29 08:30 Temp 97.7 97.7 Pulse 59 59 59 Resp 20 B/P (MAP) 154/39 (77) 154/39 154/39 Pulse Ox 98 O2 Delivery Room Air Room Air O2 Flow Rate 97.0 01/01/17 01/01/17 01/01/17 08:30 08:30 11:00 Temp 97.5 97.5 Pulse 59 59 57 Resp 20 B/P (MAP) 154/39 154/39 119/41 (67) Pulse Ox 99 O2 Delivery Room Air Intake and Output 12/31/16 12/31/16 01/01/17 15:00 23:00 07:00 Intake Total 300 ml 420 ml 3353 ml Balance 300 ml 420 ml 3353 ml WILLY GURROLA MD Jan 01, 2017 13:37
[2017-01-01 15:00] VITALS: BP 100/30
[2017-01-01] MEDS ORDERED: INSULIN ASPART 300 UNITS/3 ML INSULN.PEN SQ SCH (16:30)
[2017-01-01] MEDS: WARFARIN 4 MG TABLET. PO SCH (17:28)
[2017-01-01 19:00] VITALS: BP 128/43
[2017-01-01] MEDS: ATORVASTATIN CALCIUM 40 MG TABLET. PO SCH (20:51)
[2017-01-01] MEDS: DOCUSATE SODIUM 100 MG CAPSULE. PO SCH (20:52)
[2017-01-01] MEDS ORDERED: INSULIN DETEMIR 300 UNITS/3 ML INSULN.PEN. SQ SCH (21:00)
[2017-01-01] MEDS: INSULIN DETEMIR 300 UNITS/3 ML INSULN.PEN. SQ SCH (21:01)
[2017-01-01] MEDS: ACETAMINOPHEN 500 MG TABLET PO PRN (21:09)
[2017-01-01] MEDS ORDERED: INSULIN ASPART 300 UNITS/3 ML INSULN.PEN SQ ONE (21:30)
[2017-01-01 23:00] VITALS: BP 130/43
[2017-01-02] VITALS (7 sets, daily range): BP systolic 100–149; BP diastolic 38–78
[2017-01-02 04:34] LABS: BASO # 0.1 x10^3/uL (0.0-0.2); BASO % 1 % (0-3); EOS % 3 % (0-3); HEMATOCRIT 25.6 % (36.0-47.0); HEMOGLOBIN 8.6 g/dL (12.0-15.5); LYMPH # 1.4 x10^3/uL (1.0-4.8); LYMPH % 16 % (24-48); MEAN CORPUSCULAR HEMOGLOBIN 29 pg (25-35); MEAN CORPUSCULAR HGB CONC 34 g/dL (31-37); MEAN CORPUSCULAR VOLUME 85 fL (79-100); MONO % 7 % (0-9); NEUT % 73 % (31-73); PLATELET COUNT 336 x10^3/uL (140-400); RED CELL DISTRIBUTION WIDTH 16.5 % (11.5-14.5); WHITE BLOOD COUNT 8.6 x10^3/uL (4.0-11.0)
[2017-01-02] MEDS: INSULIN ASPART 300 UNITS/3 ML INSULN.PEN SQ SCH ×7 (07:30→20:28)
[2017-01-02] MEDS: PANTOPRAZOLE 40 MG TABLET.DR. PO SCH (07:30)
[2017-01-02] MEDS: ASPIRIN 325 MG TABLET PO SCH (08:00)
[2017-01-02 08:46] LABS: CALCIUM 9.8 mg/dL (8.5-10.1); CREATININE 1.3 mg/dL (0.6-1.0); GFR 39.4; POTASSIUM 4.6 mmol/L (3.5-5.1)
[2017-01-02] MEDS: ACETAMINOPHEN 500 MG TABLET PO PRN ×2 (08:49→16:30)
[2017-01-02] MEDS: LIDOCAINE (700MG/PATCH) PATCH. TD PRN (08:50)
[2017-01-02] MEDS: METOPROLOL TART IMMED RELEASE 25 MG TABLET. PO SCH ×2 (08:50→20:22)
[2017-01-02] MEDS: FUROSEMIDE 80 MG TABLET. PO SCH ×2 (09:00→14:29)
[2017-01-02] MEDS: LOSARTAN POTASSIUM 50 MG TABLET. PO SCH (09:00)
[2017-01-02] MEDS: CALCIUM CARB/VIT D3 500/200 TABLET. PO SCH (09:00)
[2017-01-02] MEDS: MECLIZINE HCL 12.5 MG TABLET. PO SCH ×2 (09:00→20:21)
[2017-01-02] MEDS: ISOSORBIDE MONONITRATE ER 30 MG TAB.ER.24H PO SCH (09:00)
[2017-01-02] MEDS: POLYETHYLENE GLYCOL 3350 17 GM PACKET. PO SCH (09:00)
[2017-01-02] MEDS: amLODIPine BESYLATE 10 MG TABLET PO SCH (09:00)
[2017-01-02] MEDS: SPIRONOLACTONE 25 MG TABLET PO SCH (09:00)
--- NOTE | 2017-01-02 09:35 | RAD ---
MRI of the abdomen without contrast 01/01/2017 Clinical history: Cystic mass seen within the pancreas on recent CT scan. Technique: Unenhanced T2-weighted axial and coronal, fat-saturated T2-weighted axial and coronal and in and out of phase T1-weighted axial images of the abdomen were obtained. Findings: Comparison is made to the patient's CT scan of the abdomen dated 12/31/2016. There is mild to moderate cardiomegaly. A moderate-sized sliding hiatal hernia is seen. The adrenal glands are within normal limits. A 6 mm rounded high signal intensity lesion is seen involving the left lobe of the liver on the T2-weighted images consistent with a hepatic cyst. A 8 mm high signal intensity area is seen involving the anterior aspect of the spleen on the T2-weighted images. This likely represents a cyst. Several rounded high signal intensity lesions are seen on the T2-weighted images scattered throughout both kidneys. These measure 2 mm to 1.6 cm in size. They likely represent cysts. Atrophy of the pancreas is noted. Innumerable small rounded high signal intensity lesions are seen scattered throughout the pancreas which predominantly measure 2 mm to 1 cm in size on the T2-weighted images. The largest lesion is located in the uncinate process of the pancreas. It measures 1.2 cm in greatest diameter. This corresponds to the abnormality seen on patient's CT scan. No solid component is definitely visualized involving any of these lesions. No significant dilatation of the pancreatic duct is noted. These lesions are felt to most likely represent cysts. The abdominal aorta tapers normally. No free fluid fluid is seen. The patient appears to be post cholecystectomy. There is no evidence of bowel obstruction. The marrow signal visualized bony structures is within normal limits. Impression: Innumerable cysts are seen scattered throughout the pancreas which measure 2 mm to 1.2 cm in size. No solid mass is seen.
[2017-01-02 09:43] LABS: INR 2.2 (0.8-1.1)
--- NOTE | 2017-01-02 11:20 | PDOC ---
PROGRESS NOTES Subjective Subjective Pt feeling better today, feels much less "woozy" Denies chest pain, shortness of breath, lightheadedness, dizziness, or any other complaints Constipation improved after manual disimpaction, pt had bm earlier today Glucose improved at 180 this AM, patient encouraged by progress Objective Objective Vital Signs Date Time Temp Pulse Resp B/P (MAP) Pulse Ox O2 Delivery O2 Flow Rate FiO2 01/02/17 09:00 60 137/48 01/02/17 08:00 Room Air 97.0 01/02/17 07:00 97.0 18 95 97.0 Intake and Output 01/03/17 07:00 Intake Total 250 ml Balance 250 ml Intake Oral 250 ml Physical Exam Physical Exam no significant changes Assessment Assessment 1) Hyperglycemia 2) Uncontrolled DBMT2 2) Hx of endocarditis 3) CAD 4) HTN 6) Hx DE Plan Plan of Care Blood sugars improved today at 180. 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 She remains compensated cardiac ramos. I am not going to make any further changes at this time. Thank you for involving me in her care! Comment Review of Relevant I have reviewed the following items [email or web address] (where applicable) has been applied. Labs Laboratory Tests Test 12/31/16 16:36 12/31/16 20:47 01/01/17 04:10 01/01/17 08:04 Glucose (Fingerstick) 281 mg/dL (70-99) 267 mg/dL (70-99) 305 mg/dL (70-99) White Blood Count 7.6 x10^3/uL (4.0-11.0) Red Blood Count 3.50 x10^6/uL (3.50-5.40) Hemoglobin 10.2 g/dL (12.0-15.5) Hematocrit 30.0 % (36.0-47.0) Mean Corpuscular Volume 86 fL (79-100) Mean Corpuscular Hemoglobin 29 pg (25-35) Mean Corpuscular Hemoglobin Concent 34 g/dL (31-37) Red Cell Distribution Width 16.4 % (11.5-14.5) Platelet Count 351 x10^3/uL (140-400) Neutrophils (%) (Auto) 70 % (31-73) Lymphocytes (%) (Auto) 19 % (24-48) Monocytes (%) (Auto) 7 % (0-9) Eosinophils (%) (Auto) 4 % (0-3) Basophils (%) (Auto) 1 % (0-3) Neutrophils # (Auto) 5.3 x10^3uL (1.8-7.7) Lymphocytes # (Auto) 1.4 x10^3/uL (1.0-4.8) Monocytes # (Auto) 0.5 x10^3/uL (0.0-1.1) Eosinophils # (Auto) 0.3 x10^3/uL (0.0-0.7) Basophils # (Auto) 0.1 x10^3/uL (0.0-0.2) Prothrombin Time 25.9 SEC (11.7-14.0) Prothromb Time International Ratio 2.6 (0.8-1.1) Sodium Level 131 mmol/L (136-145) Potassium Level 4.4 mmol/L (3.5-5.1) Chloride Level 95 mmol/L (98-107) Carbon Dioxide Level 30 mmol/L (21-32) Anion Gap 6 (6-14) Blood Urea Nitrogen 58 mg/dL (7-20) Creatinine 1.4 mg/dL (0.6-1.0) Estimated GFR (Cockcroft-Gault) 36.2 Glucose Level 341 mg/dL (70-99) Calcium Level 9.8 mg/dL (8.5-10.1) Test 01/01/17 11:27 01/01/17 17:11 01/01/17 20:49 01/02/17 04:15 Glucose (Fingerstick) 260 mg/dL (70-99) 191 mg/dL (70-99) 368 mg/dL (70-99) White Blood Count 8.6 x10^3/uL (4.0-11.0) Red Blood Count 3.00 x10^6/uL (3.50-5.40) Hemoglobin 8.6 g/dL (12.0-15.5) Hematocrit 25.6 % (36.0-47.0) Mean Corpuscular Volume 85 fL (79-100) Mean Corpuscular Hemoglobin 29 pg (25-35) Mean Corpuscular Hemoglobin Concent 34 g/dL (31-37) Red Cell Distribution Width 16.5 % (11.5-14.5) Platelet Count 336 x10^3/uL (140-400) Neutrophils (%) (Auto) 73 % (31-73) Lymphocytes (%) (Auto) 16 % (24-48) Monocytes (%) (Auto) 7 % (0-9) Eosinophils (%) (Auto) 3 % (0-3) Basophils (%) (Auto) 1 % (0-3) Neutrophils # (Auto) 6.3 x10^3uL (1.8-7.7) Lymphocytes # (Auto) 1.4 x10^3/uL (1.0-4.8) Monocytes # (Auto) 0.6 x10^3/uL (0.0-1.1) Eosinophils # (Auto) 0.2 x10^3/uL (0.0-0.7) Basophils # (Auto) 0.1 x10^3/uL (0.0-0.2) Prothrombin Time 23.0 SEC (11.7-14.0) Prothromb Time International Ratio 2.2 (0.8-1.1) Test 01/02/17 04:20 01/02/17 07:07 Sodium Level 136 mmol/L (136-145) Potassium Level 4.6 mmol/L (3.5-5.1) Chloride Level 100 mmol/L (98-107) Carbon Dioxide Level 31 mmol/L (21-32) Anion Gap 5 (6-14) Blood Urea Nitrogen 60 mg/dL (7-20) Creatinine 1.3 mg/dL (0.6-1.0) Estimated GFR (Cockcroft-Gault) 39.4 Glucose Level 175 mg/dL (70-99) Calcium Level 9.8 mg/dL (8.5-10.1) Glucose (Fingerstick) 180 mg/dL (70-99) Laboratory Tests Test 01/01/17 11:27 01/01/17 17:11 01/01/17 20:49 01/02/17 04:15 Glucose (Fingerstick) 260 mg/dL (70-99) 191 mg/dL (70-99) 368 mg/dL (70-99) White Blood Count 8.6 x10^3/uL (4.0-11.0) Red Blood Count 3.00 x10^6/uL (3.50-5.40) Hemoglobin 8.6 g/dL (12.0-15.5) Hematocrit 25.6 % (36.0-47.0) Mean Corpuscular Volume 85 fL (79-100) Mean Corpuscular Hemoglobin 29 pg (25-35) Mean Corpuscular Hemoglobin Concent 34 g/dL (31-37) Red Cell Distribution Width 16.5 % (11.5-14.5) Platelet Count 336 x10^3/uL (140-400) Neutrophils (%) (Auto) 73 % (31-73) Lymphocytes (%) (Auto) 16 % (24-48) Monocytes (%) (Auto) 7 % (0-9) Eosinophils (%) (Auto) 3 % (0-3) Basophils (%) (Auto) 1 % (0-3) Neutrophils # (Auto) 6.3 x10^3uL (1.8-7.7) Lymphocytes # (Auto) 1.4 x10^3/uL (1.0-4.8) Monocytes # (Auto) 0.6 x10^3/uL (0.0-1.1) Eosinophils # (Auto) 0.2 x10^3/uL (0.0-0.7) Basophils # (Auto) 0.1 x10^3/uL (0.0-0.2) Prothrombin Time 23.0 SEC (11.7-14.0) Prothromb Time International Ratio 2.2 (0.8-1.1) Test 01/02/17 04:20 01/02/17 07:07 Sodium Level 136 mmol/L (136-145) Potassium Level 4.6 mmol/L (3.5-5.1) Chloride Level 100 mmol/L (98-107) Carbon Dioxide Level 31 mmol/L (21-32) Anion Gap 5 (6-14) Blood Urea Nitrogen 60 mg/dL (7-20) Creatinine 1.3 mg/dL (0.6-1.0) Estimated GFR (Cockcroft-Gault) 39.4 Glucose Level 175 mg/dL (70-99) Calcium Level 9.8 mg/dL (8.5-10.1) Glucose (Fingerstick) 180 mg/dL (70-99) Microbiology 12/28/16 Blood Culture - Preliminary, Resulted NO GROWTH AFTER 4 DAYS 12/28/16 Urine Culture - Final, Complete 12/28/16 Urine Culture Result 1 (SHERRIE) - Final, Complete Medications Current Medications Ceftriaxone Sodium 50 ml @ 100 mls/hr 1X ONCE IV Last administered on 15:29; Start 12/28/16 at 15:15; Stop 12/28/16 at 15:44; Status DC Insulin Aspart (NovoLOG) 0-7 UNITS TIDWMEALS SQ Last administered on 12/29/16 08:08; Start 12/28/16 at 17:00; Stop 12/29/16 at 16:00; Status DC Dextrose (Dextrose 50%-Water Syringe) 12.5 gm PRN Q15MIN PRN IV SEE COMMENTS; Start 12/28/16 at 15:30; Stop 12/29/16 at 17:02; Status DC Sodium Chloride 1,000 ml @ 1,000 mls/hr 1X ONCE IV Last administered on 15:48; Start 12/28/16 at 15:45; Stop 12/28/16 at 16:44; Status DC Ondansetron HCl (Zofran) 4 mg PRN Q8HRS PRN IV NAUSEA/VOMITING; Start 12/28/16 at 16:30; Stop 12/29/16 at 16:29; Status DC Insulin Aspart (NovoLOG) 10 units 1X ONCE SQ Last administered on 12/28/16 17 :35; Start 12/28/16 at 17:15; Stop 12/28/16 at 17:16; Status DC Insulin Aspart (NovoLOG) 10 units 1X ONCE SQ Last administered on 12/28/16 19 :24; Start 12/28/16 at 19:15; Stop 12/28/16 at 19:16; Status DC Acetaminophen (Tylenol) 500 mg PRN Q8HRS PRN PO MILD TO MODERATE PAIN Last administered on 01/02/17 08:49; Start 12/28/16 at 20:00 Amlodipine Besylate (Norvasc) 10 mg DAILY PO Last administered on 01/02/17 09: 00; Start 12/29/16 at 09:00 Aspirin (Derek Aspirin) 325 mg [id number] PO Last administered on 01/02/17 08: 00; Start 12/29/16 at 08:00 Atorvastatin Calcium (Lipitor) 40 mg HS PO Last administered on 01/01/17 20:51 ; Start 12/28/16 at 21:00 Calcium/Vitamin D (Oscal D 500mg/ 200uts) 1 tab DAILY PO Last administered on 09:00; Start 12/29/16 at 09:00 Docusate Sodium (Colace) 200 mg HS PO Last administered on 01/01/17 20:52; Start 12/28/16 at 21:00 Furosemide (Lasix) 80 mg [id number] PO Last administered on 01/02/17 09:00; Start 12/29/16 at 09:00 Acetaminophen/ Hydrocodone Bitart (Lortab 5/325) 1 tab Q12HR PRN PO PAIN Last administered on 12/31/16 21:19; Start 12/28/16 at 20:00; Stop 01/01/17 at 14:18 ; Status DC Meclizine HCl (Antivert) 12.5 mg BID PO Last administered on 01/02/17 09:00; Start 12/28/16 at 21:00 Meloxicam (Mobic) 7.5 mg DAILY PO Last administered on 12/29/16 08:45; Start 12/29/16 at 09:00; Stop 12/29/16 at 11:53; Status DC Metoprolol Tartrate (Lopressor) 25 mg BID PO Last administered on 01/02/17 08: 50; Start 12/28/16 at 21:00 Nitroglycerin (Nitrostat) 0.4 mg PRN Q5MIN PRN SL CHEST PAIN; Start 12/28/16 at 20:00 Pantoprazole Sodium (Protonix) 40 mg DAILYAC PO Last administered on 01/02/17 07:30; Start 12/29/16 at 07:30 Spironolactone (Aldactone) 25 mg DAILY PO Last administered on 01/02/17 09:00 ; Start 12/29/16 at 09:00 Warfarin Sodium (Coumadin) 4 mg QM-F PO Last administered on 01/01/17 17:28; Start 12/29/16 at 16:00 Warfarin Sodium (Coumadin) 4 mg QSA PO Last administered on 12/30/16 17:02; Start 12/30/16 at 16:00 Isosorbide Mononitrate (Imdur) 60 mg DAILY PO Last administered on 01/02/17 09 :00; Start 12/29/16 at 09:00 Losartan Potassium (Cozaar) 50 mg DAILY PO Last administered on 01/02/17 09:00 ; Start 12/29/16 at 09:00 Levofloxacin (Levaquin) 250 mg DAILY06 PO Last administered on 12/29/16 06:30 ; Start 12/29/16 at 06:00; Stop 12/29/16 at 09:49; Status DC Warfarin Sodium (Coumadin Per Pharmacy) 1 each PRN DAILY PRN MC SEE COMMENTS Last administered on 01/01/17 12:33; Start 12/28/16 at 20:45 Warfarin Sodium (Coumadin) 4 mg 1X WARF ONCE PO Last administered on 22:33; Start 12/28/16 at 21:29; Stop 12/28/16 at 21:30; Status DC Insulin Aspart (NovoLOG) 5 units 1X ONCE SQ Last administered on 12/29/16 08: 51; Start 12/29/16 at 08:30; Stop 12/29/16 at 08:31; Status DC Insulin Human Regular (NovoLIN R VIAL) 10 unit 1X ONCE IV Last administered on 12/29/16 12:18; Start 12/29/16 at 12:15; Stop 12/29/16 at 12:16; Status DC Sodium Chloride 1,000 ml @ 75 mls/hr [id number] IV Last administered on 00:25; Start 12/29/16 at 12:00; Stop 12/31/16 at 13:45; Status DC Lidocaine (Lidoderm) 1 patch PRN DAILY PRN TD PAIN Last administered on 08:50; Start 12/29/16 at 13:30 Insulin Detemir (Levemir) 20 units QHS SQ Last administered on 12/31/16 21:29 ; Start 12/29/16 at 21:00; Stop 01/01/17 at 12:24; Status DC Insulin Aspart (NovoLOG) 6 units TIDAC SQ Last administered on 01/01/17 12:12 ; Start 12/29/16 at 16:30; Stop 01/01/17 at 12:24; Status DC Insulin Aspart (NovoLOG) 0-9 UNITS QIDACHS SQ Last administered on 01/02/17 07 :30; Start 12/29/16 at 16:30 Dextrose (Dextrose 50%-Water Syringe) 12.5 gm PRN Q15MIN PRN IV SEE COMMENTS; Start 12/29/16 at 16:00 Insulin Aspart (NovoLOG) 20 units 1X ONCE SQ Last administered on 12/29/16 17 :32; Start 12/29/16 at 17:00; Stop 12/29/16 at 17:02; Status DC Insulin Aspart (NovoLOG) 15 units 1X ONCE SQ Last administered on 12/29/16 20 :58; Start 12/29/16 at 21:00; Stop 12/29/16 at 21:01; Status DC Insulin Aspart (NovoLOG) 15 units 1X ONCE SQ Last administered on 12/30/16 21 :50; Start 12/30/16 at 21:30; Stop 12/30/16 at 21:32; Status DC Polyethylene Glycol (miraLAX PACKET) 17 gm DAILY PO Last administered on 09:00; Start 12/31/16 at 15:00 Bisacodyl (Dulcolax Tab) 10 mg PRN DAILY PRN PO CONSTIPATION Last administered on 12/31/16 17:07; Start 12/31/16 at 14:45 Insulin Aspart (NovoLOG) 10 units TIDAC SQ ; Start 01/01/17 at 16:30; Stop 01/01 at 16:30; Status DC Insulin Detemir (Levemir) 28 units QHS SQ ; Start 01/01/17 at 21:00; Stop at 21:00; Status DC Bisacodyl (Dulcolax Supp) 10 mg PRN DAILY PRN [place] CONSTIPATION Last administered on 01/01/17 13:09; Start 01/01/17 at 12:45 Sodium Monofluorophosphate (Fleet Adult) 133 ml PRN DAILY PRN [place] CONSTIPATION; Start 01/01/17 at 12:45 Insulin Aspart (NovoLOG) 9 units TIDAC SQ Last administered on 01/02/17 07:30 ; Start 01/01/17 at 16:30 Insulin Detemir (Levemir) 25 units QHS SQ Last administered on 01/01/17 21:01 ; Start 01/01/17 at 21:00 Acetaminophen/ Hydrocodone Bitart (Lortab 5/325) 1 tab PRN Q12HR PRN PO MODERATE TO SEVER PAIN; Start 01/01/17 at 14:30 Insulin Aspart (NovoLOG) 15 units 1X ONCE SQ Last administered on 01/01/17 21 :27; Start 01/01/17 at 21:30; Stop 01/01/17 at 21:31; Status DC Active Scripts Active Reported Levaquin (Levofloxacin) 500 Mg Tablet 250 Mg PO DAILY for 14 days order started 12/22/16 Coumadin (Warfarin Sodium) 4 Mg Tablet 1 Tab PO QSA Coumadin (Warfarin Sodium) 4 Mg Tablet 1 Tab PO QM-F fr Mon til Sat Aspirin 325 Mg Tablet 1 Tab PO DAILY Calcium 500 + Vit D 200 Tablet (Calcium Carbonate/Vitamin D3) 1 Each Tablet 1 Each PO DAILY TAKE NEXT DOSE TOMORROW 11/14 IN AM Novolog Flexpen (Insulin Aspart) 100 Unit/1 Ml Insuln.pen 1 Unit SQ 150-200= 4 units 201-250= 7 units 251-300= 10 units 301-350= 13 units 351-400= 16 units 401-450= 18 units 451-500= 20 units 501-550= 22 units notify if bg < 110 NITROGLYCERIN SubLingual (Nitroglycerin) 0.4 Mg Tab.subl 0.4 Mg SL PRN Q5MIN PRN Protonix (Pantoprazole Sodium) 40 Mg Tablet.dr 1 Tab PO DAILY TAKE NEXT DOSE TOMORROW 11/14 IN AM Metoprolol Tartrate 25 Mg Tablet 1 Tab PO BID TAKE NEXT DOSE TONIGHT 710 AT BEDTIME Acetaminophen 500 Mg Tablet 500 Mg PO PRN Q8HRS PRN Potassium Chloride 10 Meq Capsule.er 10 Meq PO DAILY Meloxicam 7.5 Mg Tablet 1 Tab PO DAILY TAKE NEXT DOSE TOMORROW 11/14 IN AM Meclizine Hcl 12.5 Mg Tablet 1 Tab PO BID TAKE NEXT DOSE TONIGHT 07 AT BEDTIME Hydrocodone-Apap 5-325 (Hydrocodone Bit/Acetaminophen) 1 Each Tablet 1 Tab PO Q12HR PRN Spironolactone 25 Mg Tablet 25 Mg PO DAILY TAKE NEXT DOSE TOMORROW 11/14 IN AM Furosemide 80 Mg Tablet 80 Mg PO BID TAKE NEXT DOSE TOMORROW 11/14 IN AM Stool Softener (Docusate Sodium) 100 Mg Capsule 200 Mg PO HS TAKE NEXT DOSE TONIGHT 11/13 AT BEDTIME Amlodipine Besylate 10 Mg Tablet 10 Mg PO DAILY TAKE NEXT DOSE TOMORROW 11/14 IN AM hold if sbp less than 100 Losartan Potassium 100 Mg Tablet 50 Mg PO DAILY TAKE NEXT DOSE TOMORROW 11/14 IN AM Atorvastatin Calcium 40 Mg Tablet 40 Mg PO HS TAKE NEXT DOSE TONIGHT 11/13 AT BEDTIME Isosorbide Mononitrate Er (Isosorbide Mononitrate) 60 Mg Tab.er.24h 60 Mg PO DAILY TAKE NEXT DOSE TOMORROW 11/14 IN AM Vitals/I & O Vital Sign - Last 24 Hours 01/01/17 01/01/17 01/01/17 01/01/17 15:00 19:00 19:54 20:54 Temp 97.7 98.2 97.7 98.2 Pulse 59 73 69 Resp 20 20 B/P (MAP) 100/30 (53) 128/43 (71) 125/39 Pulse Ox 99 95 O2 Delivery Room Air Room Air Room Air O2 Flow Rate 97.0 01/01/17 01/02/17 01/02/17 01/02/17 23:00 03:00 07:00 08:00 Temp 97.9 96.4 97.0 97.9 96.4 97.0 Pulse 59 65 60 Resp 20 20 18 B/P (MAP) 130/43 (72) 149/78 (101) 137/48 (77) Pulse Ox 97 99 95 O2 Delivery Room Air Room Air Room Air Room Air O2 Flow Rate 97.0 01/02/17 01/02/17 01/02/17 01/02/17 08:50 09:00 09:00 09:00 Pulse 60 60 60 60 B/P (MAP) 137/48 137/48 137/48 137/48 Intake and Output 01/02/17 01/02/17 01/03/17 15:00 23:00 07:00 Intake Total 250 ml Balance 250 ml WILLY GURROLA MD Jan 02, 2017 11:20
--- NOTE | 2017-01-02 12:47 | PDOC ---
SUBJECTIVE ROS CKD III doign Ok from Renal standpoint OBJECTIVE Vital Signs Vital Signs Date Time Temp Pulse Resp B/P (MAP) Pulse Ox O2 Delivery O2 Flow Rate FiO2 01/02/17 09:00 60 137/48 01/02/17 08:00 Room Air 97.0 01/02/17 07:00 97.0 18 95 97.0 I & 0 Intake and Output 01/03/17 07:00 Intake Total 250 ml Balance 250 ml Intake Oral 250 ml PHYSICAL EXAM Physical Exam General Appearance: Awake: Alert Oriented x 2 Neck: No JVD or JVP Chest: CTA [place]: S1 S2 Abdomen - Soft NTND Extremities - No Edema DIAGNOSIS/ASSESSMENT Assessment & Plan CKD III - stable/ little better creat HTN with CKD - stable on +nt meds DM -2 with ^ed FSBS COMMENT/RELEVANT DATA Meds Current Medications Medications (Trade) Dose Ordered Sig/Huyen Start Time Stop Time Status Last Admin Dose Admin Acetaminophen (Tylenol) 500 mg PRN Q8HRS PRN 12/28/16 20:00 01/02/17 08:49 500 MG Acetaminophen/ Hydrocodone Bitart (Lortab 5/325) 1 tab PRN Q12HR PRN 01/01/17 14:30 Amlodipine Besylate (Norvasc) 10 mg DAILY 12/29/16 09:00 01/02/17 09:00 10 MG Aspirin (Derek Aspirin) 325 mg [id number] 12/29/16 08:00 01/02/17 08:00 325 MG Atorvastatin Calcium (Lipitor) 40 mg HS 12/28/16 21:00 01/01/17 20:51 40 MG Bisacodyl (Dulcolax Supp) 10 mg PRN DAILY PRN 01/01/17 12:45 01/01/17 13:09 10 MG Bisacodyl (Dulcolax Tab) 10 mg PRN DAILY PRN 12/31/16 14:45 12/31/16 17:07 10 MG Calcium/Vitamin D (Oscal D 500mg/ 200uts) 1 tab DAILY 12/29/16 09:00 01/02/17 09:00 1 TAB Ceftriaxone Sodium 50 ml @ 100 mls/hr 1X ONCE 12/28/16 15:15 12/28/16 15:44 DC 12/28/16 15:29 100 MLS/HR Dextrose (Dextrose 50%-Water Syringe) 12.5 gm PRN Q15MIN PRN 12/29/16 16:00 Docusate Sodium (Colace) 200 mg HS 12/28/16 21:00 01/01/17 20:52 200 MG Furosemide (Lasix) 80 mg [id number] 12/29/16 09:00 01/02/17 09:00 80 MG Insulin Aspart (NovoLOG) 15 units 1X ONCE 01/01/17 21:30 01/01/17 21:31 DC 01/01/17 21:27 15 UNITS Insulin Detemir (Levemir) 25 units QHS 01/01/17 21:00 01/01/17 21:01 25 UNITS Insulin Human Regular (NovoLIN R VIAL) 10 unit 1X ONCE 12/29/16 12:15 12/29/16 12:16 DC 12/29/16 12:18 10 UNIT Isosorbide Mononitrate (Imdur) 60 mg DAILY 12/29/16 09:00 01/02/17 09:00 60 MG Levofloxacin (Levaquin) 250 mg DAILY06 12/29/16 06:00 12/29/16 09:49 DC 12/29/16 06:30 250 MG Lidocaine (Lidoderm) 1 patch PRN DAILY PRN 12/29/16 13:30 01/02/17 08:50 1 PATCH Losartan Potassium (Cozaar) 50 mg DAILY 12/29/16 09:00 01/02/17 09:00 50 MG Meclizine HCl (Antivert) 12.5 mg BID 12/28/16 21:00 01/02/17 09:00 12.5 MG Meloxicam (Mobic) 7.5 mg DAILY 12/29/16 09:00 12/29/16 11:53 DC 12/29/16 08:45 7.5 MG Metoprolol Tartrate (Lopressor) 25 mg BID 12/28/16 21:00 01/02/17 08:50 25 MG Nitroglycerin (Nitrostat) 0.4 mg PRN Q5MIN PRN 12/28/16 20:00 Ondansetron HCl (Zofran) 4 mg PRN Q8HRS PRN 12/28/16 16:30 12/29/16 16:29 DC Pantoprazole Sodium (Protonix) 40 mg DAILYAC 12/29/16 07:30 01/02/17 07:30 40 MG Polyethylene Glycol (miraLAX PACKET) 17 gm DAILY 12/31/16 15:00 01/02/17 09:00 17 GM Sodium Monofluorophosphate (Fleet Adult) 133 ml PRN DAILY PRN 01/01/17 12:45 Sodium Chloride 1,000 ml @ 75 mls/hr [id number] 12/29/16 12:00 12/31/16 13:45 DC 12/31/16 00:25 75 MLS/HR Spironolactone (Aldactone) 25 mg DAILY 12/29/16 09:00 01/02/17 09:00 25 MG Warfarin Sodium (Coumadin Per Pharmacy) 1 each PRN DAILY PRN 12/28/16 20:45 01/01/17 12:33 1 EACH Warfarin Sodium (Coumadin) 4 mg 1X WARF ONCE 12/28/16 21:29 12/28/16 21:30 DC 12/28/16 22:33 4 MG Lab Laboratory Tests Test 01/01/17 17:11 01/01/17 20:49 01/02/17 04:15 01/02/17 04:20 Glucose (Fingerstick) 191 mg/dL (70-99) 368 mg/dL (70-99) White Blood Count 8.6 x10^3/uL (4.0-11.0) Red Blood Count 3.00 x10^6/uL (3.50-5.40) Hemoglobin 8.6 g/dL (12.0-15.5) Hematocrit 25.6 % (36.0-47.0) Mean Corpuscular Volume 85 fL (79-100) Mean Corpuscular Hemoglobin 29 pg (25-35) Mean Corpuscular Hemoglobin Concent 34 g/dL (31-37) Red Cell Distribution Width 16.5 % (11.5-14.5) Platelet Count 336 x10^3/uL (140-400) Neutrophils (%) (Auto) 73 % (31-73) Lymphocytes (%) (Auto) 16 % (24-48) Monocytes (%) (Auto) 7 % (0-9) Eosinophils (%) (Auto) 3 % (0-3) Basophils (%) (Auto) 1 % (0-3) Neutrophils # (Auto) 6.3 x10^3uL (1.8-7.7) Lymphocytes # (Auto) 1.4 x10^3/uL (1.0-4.8) Monocytes # (Auto) 0.6 x10^3/uL (0.0-1.1) Eosinophils # (Auto) 0.2 x10^3/uL (0.0-0.7) Basophils # (Auto) 0.1 x10^3/uL (0.0-0.2) Prothrombin Time 23.0 SEC (11.7-14.0) Prothromb Time International Ratio 2.2 (0.8-1.1) Sodium Level 136 mmol/L (136-145) Potassium Level 4.6 mmol/L (3.5-5.1) Chloride Level 100 mmol/L (98-107) Carbon Dioxide Level 31 mmol/L (21-32) Anion Gap 5 (6-14) Blood Urea Nitrogen 60 mg/dL (7-20) Creatinine 1.3 mg/dL (0.6-1.0) Estimated GFR (Cockcroft-Gault) 39.4 Glucose Level 175 mg/dL (70-99) Calcium Level 9.8 mg/dL (8.5-10.1) Test 01/02/17 07:07 01/02/17 11:41 Glucose (Fingerstick) 180 mg/dL (70-99) 246 mg/dL (70-99) JULIO C BARRIOS MD Jan 02, 2017 12:47
--- NOTE | 2017-01-02 13:11 | PDOC ---
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 Pt was frustrated re: her blood glucose levels. Discussed w/ pt the MRI results and told her that she has several pancreatic cysts & that we will consult GI Vitals Vitals Vital Signs Date Time Temp Pulse Resp B/P (MAP) Pulse Ox O2 Delivery O2 Flow Rate FiO2 01/02/17 09:00 60 137/48 01/02/17 08:00 Room Air 97.0 01/02/17 07:00 97.0 18 95 97.0 Physical Exam General: Alert, Oriented X3, Cooperative, No acute distress Heart: Regular rate, Normal S1, Normal S2 Lungs: Clear, Other (No respiratory distress ) Abdomen: Normal bowel sounds, Soft, No tenderness Extremities: No clubbing, No cyanosis, No edema Skin: No rashes, No breakdown Labs LABS Laboratory Tests Test 01/01/17 17:11 01/01/17 20:49 01/02/17 04:15 01/02/17 04:20 Glucose (Fingerstick) 191 mg/dL (70-99) 368 mg/dL (70-99) White Blood Count 8.6 x10^3/uL (4.0-11.0) Red Blood Count 3.00 x10^6/uL (3.50-5.40) Hemoglobin 8.6 g/dL (12.0-15.5) Hematocrit 25.6 % (36.0-47.0) Mean Corpuscular Volume 85 fL (79-100) Mean Corpuscular Hemoglobin 29 pg (25-35) Mean Corpuscular Hemoglobin Concent 34 g/dL (31-37) Red Cell Distribution Width 16.5 % (11.5-14.5) Platelet Count 336 x10^3/uL (140-400) Neutrophils (%) (Auto) 73 % (31-73) Lymphocytes (%) (Auto) 16 % (24-48) Monocytes (%) (Auto) 7 % (0-9) Eosinophils (%) (Auto) 3 % (0-3) Basophils (%) (Auto) 1 % (0-3) Neutrophils # (Auto) 6.3 x10^3uL (1.8-7.7) Lymphocytes # (Auto) 1.4 x10^3/uL (1.0-4.8) Monocytes # (Auto) 0.6 x10^3/uL (0.0-1.1) Eosinophils # (Auto) 0.2 x10^3/uL (0.0-0.7) Basophils # (Auto) 0.1 x10^3/uL (0.0-0.2) Prothrombin Time 23.0 SEC (11.7-14.0) Prothromb Time International Ratio 2.2 (0.8-1.1) Sodium Level 136 mmol/L (136-145) Potassium Level 4.6 mmol/L (3.5-5.1) Chloride Level 100 mmol/L (98-107) Carbon Dioxide Level 31 mmol/L (21-32) Anion Gap 5 (6-14) Blood Urea Nitrogen 60 mg/dL (7-20) Creatinine 1.3 mg/dL (0.6-1.0) Estimated GFR (Cockcroft-Gault) 39.4 Glucose Level 175 mg/dL (70-99) Calcium Level 9.8 mg/dL (8.5-10.1) Test 01/02/17 07:07 01/02/17 11:41 Glucose (Fingerstick) 180 mg/dL (70-99) 246 mg/dL (70-99) Review of Systems Review of Systems c/o anxiety re: blood sugar levels c/o hunger Assessment and Plan Assessmemt and Plan cc: Uncontrolled DM2: Sliding scale & continue to monitor levels. Level has improved from the last couple days 1.. MRI- Pancreatic cysts (largest is 1.2 cm in diamter on uncinate process): consulting GI 2. Hyponatremia: monitoring & currently within therapeutic range 3. GRACIELA on ckd3: monitor. Consulted renal. 4. H/o endocarditis: discussed w/ Dr. Cast 5. H/o CAD with pci: cardiac consulted 6. HTN: continue losartan, lasix. 7. GERD: continue pantoprazole 8. H/o DVT on warfarin: continue to give warfarin 9. Continue PTOT Problems: Comment Review of Relevant I have reviewed the following items alejandra (where applicable) has been applied. Labs Laboratory Tests Test 12/31/16 16:36 8/27/17 20:47 01/01/17 04:10 01/01/17 08:04 Glucose (Fingerstick) 281 mg/dL (70-99) 267 mg/dL (70-99) 305 mg/dL (70-99) White Blood Count 7.6 x10^3/uL (4.0-11.0) Red Blood Count 3.50 x10^6/uL (3.50-5.40) Hemoglobin 10.2 g/dL (12.0-15.5) Hematocrit 30.0 % (36.0-47.0) Mean Corpuscular Volume 86 fL (79-100) Mean Corpuscular Hemoglobin 29 pg (25-35) Mean Corpuscular Hemoglobin Concent 34 g/dL (31-37) Red Cell Distribution Width 16.4 % (11.5-14.5) Platelet Count 351 x10^3/uL (140-400) Neutrophils (%) (Auto) 70 % (31-73) Lymphocytes (%) (Auto) 19 % (24-48) Monocytes (%) (Auto) 7 % (0-9) Eosinophils (%) (Auto) 4 % (0-3) Basophils (%) (Auto) 1 % (0-3) Neutrophils # (Auto) 5.3 x10^3uL (1.8-7.7) Lymphocytes # (Auto) 1.4 x10^3/uL (1.0-4.8) Monocytes # (Auto) 0.5 x10^3/uL (0.0-1.1) Eosinophils # (Auto) 0.3 x10^3/uL (0.0-0.7) Basophils # (Auto) 0.1 x10^3/uL (0.0-0.2) Prothrombin Time 25.9 SEC (11.7-14.0) Prothromb Time International Ratio 2.6 (0.8-1.1) Sodium Level 131 mmol/L (136-145) Potassium Level 4.4 mmol/L (3.5-5.1) Chloride Level 95 mmol/L (98-107) Carbon Dioxide Level 30 mmol/L (21-32) Anion Gap 6 (6-14) Blood Urea Nitrogen 58 mg/dL (7-20) Creatinine 1.4 mg/dL (0.6-1.0) Estimated GFR (Cockcroft-Gault) 36.2 Glucose Level 341 mg/dL (70-99) Calcium Level 9.8 mg/dL (8.5-10.1) Test 01/01/17 11:27 01/01/17 17:11 01/01/17 20:49 01/02/17 04:15 Glucose (Fingerstick) 260 mg/dL (70-99) 191 mg/dL (70-99) 368 mg/dL (70-99) White Blood Count 8.6 x10^3/uL (4.0-11.0) Red Blood Count 3.00 x10^6/uL (3.50-5.40) Hemoglobin 8.6 g/dL (12.0-15.5) Hematocrit 25.6 % (36.0-47.0) Mean Corpuscular Volume 85 fL (79-100) Mean Corpuscular Hemoglobin 29 pg (25-35) Mean Corpuscular Hemoglobin Concent 34 g/dL (31-37) Red Cell Distribution Width 16.5 % (11.5-14.5) Platelet Count 336 x10^3/uL (140-400) Neutrophils (%) (Auto) 73 % (31-73) Lymphocytes (%) (Auto) 16 % (24-48) Monocytes (%) (Auto) 7 % (0-9) Eosinophils (%) (Auto) 3 % (0-3) Basophils (%) (Auto) 1 % (0-3) Neutrophils # (Auto) 6.3 x10^3uL (1.8-7.7) Lymphocytes # (Auto) 1.4 x10^3/uL (1.0-4.8) Monocytes # (Auto) 0.6 x10^3/uL (0.0-1.1) Eosinophils # (Auto) 0.2 x10^3/uL (0.0-0.7) Basophils # (Auto) 0.1 x10^3/uL (0.0-0.2) Prothrombin Time 23.0 SEC (11.7-14.0) Prothromb Time International Ratio 2.2 (0.8-1.1) Test 01/02/17 04:20 01/02/17 07:07 01/02/17 11:41 Sodium Level 136 mmol/L (136-145) Potassium Level 4.6 mmol/L (3.5-5.1) Chloride Level 100 mmol/L (98-107) Carbon Dioxide Level 31 mmol/L (21-32) Anion Gap 5 (6-14) Blood Urea Nitrogen 60 mg/dL (7-20) Creatinine 1.3 mg/dL (0.6-1.0) Estimated GFR (Cockcroft-Gault) 39.4 Glucose Level 175 mg/dL (70-99) Calcium Level 9.8 mg/dL (8.5-10.1) Glucose (Fingerstick) 180 mg/dL (70-99) 246 mg/dL (70-99) Laboratory Tests Test 01/01/17 17:11 01/01/17 20:49 01/02/17 04:15 01/02/17 04:20 Glucose (Fingerstick) 191 mg/dL (70-99) 368 mg/dL (70-99) White Blood Count 8.6 x10^3/uL (4.0-11.0) Red Blood Count 3.00 x10^6/uL (3.50-5.40) Hemoglobin 8.6 g/dL (12.0-15.5) Hematocrit 25.6 % (36.0-47.0) Mean Corpuscular Volume 85 fL (79-100) Mean Corpuscular Hemoglobin 29 pg (25-35) Mean Corpuscular Hemoglobin Concent 34 g/dL (31-37) Red Cell Distribution Width 16.5 % (11.5-14.5) Platelet Count 336 x10^3/uL (140-400) Neutrophils (%) (Auto) 73 % (31-73) Lymphocytes (%) (Auto) 16 % (24-48) Monocytes (%) (Auto) 7 % (0-9) Eosinophils (%) (Auto) 3 % (0-3) Basophils (%) (Auto) 1 % (0-3) Neutrophils # (Auto) 6.3 x10^3uL (1.8-7.7) Lymphocytes # (Auto) 1.4 x10^3/uL (1.0-4.8) Monocytes # (Auto) 0.6 x10^3/uL (0.0-1.1) Eosinophils # (Auto) 0.2 x10^3/uL (0.0-0.7) Basophils # (Auto) 0.1 x10^3/uL (0.0-0.2) Prothrombin Time 23.0 SEC (11.7-14.0) Prothromb Time International Ratio 2.2 (0.8-1.1) Sodium Level 136 mmol/L (136-145) Potassium Level 4.6 mmol/L (3.5-5.1) Chloride Level 100 mmol/L (98-107) Carbon Dioxide Level 31 mmol/L (21-32) Anion Gap 5 (6-14) Blood Urea Nitrogen 60 mg/dL (7-20) Creatinine 1.3 mg/dL (0.6-1.0) Estimated GFR (Cockcroft-Gault) 39.4 Glucose Level 175 mg/dL (70-99) Calcium Level 9.8 mg/dL (8.5-10.1) Test 01/02/17 07:07 01/02/17 11:41 Glucose (Fingerstick) 180 mg/dL (70-99) 246 mg/dL (70-99) Microbiology 12/28/16 Blood Culture - Preliminary, Resulted NO GROWTH AFTER 4 DAYS 12/28/16 Urine Culture - Final, Complete 12/28/16 Urine Culture Result 1 (SHERRIE) - Final, Complete Medications Current Medications Ceftriaxone Sodium 50 ml @ 100 mls/hr 1X ONCE IV Last administered on 15:29; Start 12/28/16 at 15:15; Stop 12/28/16 at 15:44; Status DC Insulin Aspart (NovoLOG) 0-7 UNITS TIDWMEALS SQ Last administered on 12/29/16 08:08; Start 12/28/16 at 17:00; Stop 12/29/16 at 16:00; Status DC Dextrose (Dextrose 50%-Water Syringe) 12.5 gm PRN Q15MIN PRN IV SEE COMMENTS; Start 12/28/16 at 15:30; Stop 12/29/16 at 17:02; Status DC Sodium Chloride 1,000 ml @ 1,000 mls/hr 1X ONCE IV Last administered on 15:48; Start 12/28/16 at 15:45; Stop 12/28/16 at 16:44; Status DC Ondansetron HCl (Zofran) 4 mg PRN Q8HRS PRN IV NAUSEA/VOMITING; Start 12/28/16 at 16:30; Stop 12/29/16 at 16:29; Status DC Insulin Aspart (NovoLOG) 10 units 1X ONCE SQ Last administered on 12/28/16 17 :35; Start 12/28/16 at 17:15; Stop 12/28/16 at 17:16; Status DC Insulin Aspart (NovoLOG) 10 units 1X ONCE SQ Last administered on 12/28/16 19 :24; Start 12/28/16 at 19:15; Stop 12/28/16 at 19:16; Status DC Acetaminophen (Tylenol) 500 mg PRN Q8HRS PRN PO MILD TO MODERATE PAIN Last administered on 01/02/17 08:49; Start 12/28/16 at 20:00 Amlodipine Besylate (Norvasc) 10 mg DAILY PO Last administered on 01/02/17 09: 00; Start 12/29/16 at 09:00 Aspirin (Derek Aspirin) 325 mg [id number] PO Last administered on 01/02/17 08: 00; Start 12/29/16 at 08:00 Atorvastatin Calcium (Lipitor) 40 mg HS PO Last administered on 01/01/17 20:51 ; Start 12/28/16 at 21:00 Calcium/Vitamin D (Oscal D 500mg/ 200uts) 1 tab DAILY PO Last administered on 09:00; Start 12/29/16 at 09:00 Docusate Sodium (Colace) 200 mg HS PO Last administered on 01/01/17 20:52; Start 12/28/16 at 21:00 Furosemide (Lasix) 80 mg BID92 PO Last administered on 01/02/17 09:00; Start 12/29/16 at 09:00 Acetaminophen/ Hydrocodone Bitart (Lortab 5/325) 1 tab Q12HR PRN PO PAIN Last administered on 12/31/16 21:19; Start 12/28/16 at 20:00; Stop 01/01/17 at 14:18 ; Status DC Meclizine HCl (Antivert) 12.5 mg BID PO Last administered on 01/02/17 09:00; Start 12/28/16 at 21:00 Meloxicam (Mobic) 7.5 mg DAILY PO Last administered on 12/29/16 08:45; Start 12/29/16 at 09:00; Stop 12/29/16 at 11:53; Status DC Metoprolol Tartrate (Lopressor) 25 mg BID PO Last administered on 01/02/17 08: 50; Start 12/28/16 at 21:00 Nitroglycerin (Nitrostat) 0.4 mg PRN Q5MIN PRN SL CHEST PAIN; Start 12/28/16 at 20:00 Pantoprazole Sodium (Protonix) 40 mg DAILYAC PO Last administered on 01/02/17 07:30; Start 12/29/16 at 07:30 Spironolactone (Aldactone) 25 mg DAILY PO Last administered on 01/02/17 09:00 ; Start 12/29/16 at 09:00 Warfarin Sodium (Coumadin) 4 mg QM-F PO Last administered on 01/01/17 17:28; Start 12/29/16 at 16:00 Warfarin Sodium (Coumadin) 4 mg QSA PO Last administered on 12/30/16 17:02; Start 12/30/16 at 16:00 Isosorbide Mononitrate (Imdur) 60 mg DAILY PO Last administered on 01/02/17 09 :00; Start 12/29/16 at 09:00 Losartan Potassium (Cozaar) 50 mg DAILY PO Last administered on 01/02/17 09:00 ; Start 12/29/16 at 09:00 Levofloxacin (Levaquin) 250 mg DAILY06 PO Last administered on 12/29/16 06:30 ; Start 12/29/16 at 06:00; Stop 12/29/16 at 09:49; Status DC Warfarin Sodium (Coumadin Per Pharmacy) 1 each PRN DAILY PRN MC SEE COMMENTS Last administered on 01/01/17 12:33; Start 12/28/16 at 20:45 Warfarin Sodium (Coumadin) 4 mg 1X WARF ONCE PO Last administered on 22:33; Start 12/28/16 at 21:29; Stop 12/28/16 at 21:30; Status DC Insulin Aspart (NovoLOG) 5 units 1X ONCE SQ Last administered on 12/29/16 08: 51; Start 12/29/16 at 08:30; Stop 12/29/16 at 08:31; Status DC Insulin Human Regular (NovoLIN R VIAL) 10 unit 1X ONCE IV Last administered on 12/29/16 12:18; Start 12/29/16 at 12:15; Stop 12/29/16 at 12:16; Status DC Sodium Chloride 1,000 ml @ 75 mls/hr [id number] IV Last administered on 00:25; Start 12/29/16 at 12:00; Stop 12/31/16 at 13:45; Status DC Lidocaine (Lidoderm) 1 patch PRN DAILY PRN TD PAIN Last administered on 08:50; Start 12/29/16 at 13:30 Insulin Detemir (Levemir) 20 units QHS SQ Last administered on 12/31/16 21:29 ; Start 12/29/16 at 21:00; Stop 01/01/17 at 12:24; Status DC Insulin Aspart (NovoLOG) 6 units TIDAC SQ Last administered on 01/01/17 12:12 ; Start 12/29/16 at 16:30; Stop 01/01/17 at 12:24; Status DC Insulin Aspart (NovoLOG) 0-9 UNITS QIDACHS SQ Last administered on 01/02/17 12 :10; Start 12/29/16 at 16:30 Dextrose (Dextrose 50%-Water Syringe) 12.5 gm PRN Q15MIN PRN IV SEE COMMENTS; Start 12/29/16 at 16:00 Insulin Aspart (NovoLOG) 20 units 1X ONCE SQ Last administered on 12/29/16 17 :32; Start 12/29/16 at 17:00; Stop 12/29/16 at 17:02; Status DC Insulin Aspart (NovoLOG) 15 units 1X ONCE SQ Last administered on 12/29/16 20 :58; Start 12/29/16 at 21:00; Stop 12/29/16 at 21:01; Status DC Insulin Aspart (NovoLOG) 15 units 1X ONCE SQ Last administered on 12/30/16 21 :50; Start 12/30/16 at 21:30; Stop 12/30/16 at 21:32; Status DC Polyethylene Glycol (miraLAX PACKET) 17 gm DAILY PO Last administered on 09:00; Start 12/31/16 at 15:00 Bisacodyl (Dulcolax Tab) 10 mg PRN DAILY PRN PO CONSTIPATION Last administered on 12/31/16 17:07; Start 12/31/16 at 14:45 Insulin Aspart (NovoLOG) 10 units TIDAC SQ ; Start 01/01/17 at 16:30; Stop 01/01 at 16:30; Status DC Insulin Detemir (Levemir) 28 units QHS SQ ; Start 01/01/17 at 21:00; Stop at 21:00; Status DC Bisacodyl (Dulcolax Supp) 10 mg PRN DAILY PRN [place] CONSTIPATION Last administered on 01/01/17 13:09; Start 01/01/17 at 12:45 Sodium Monofluorophosphate (Fleet Adult) 133 ml PRN DAILY PRN [place] CONSTIPATION; Start 01/01/17 at 12:45 Insulin Aspart (NovoLOG) 9 units TIDAC SQ Last administered on 01/02/17 12:10 ; Start 01/01/17 at 16:30 Insulin Detemir (Levemir) 25 units QHS SQ Last administered on 01/01/17 21:01 ; Start 01/01/17 at 21:00 Acetaminophen/ Hydrocodone Bitart (Lortab 5/325) 1 tab PRN Q12HR PRN PO MODERATE TO SEVER PAIN; Start 01/01/17 at 14:30 Insulin Aspart (NovoLOG) 15 units 1X ONCE SQ Last administered on 01/01/17 21 :27; Start 01/01/17 at 21:30; Stop 01/01/17 at 21:31; Status DC Active Scripts Active Reported Levaquin (Levofloxacin) 500 Mg Tablet 250 Mg PO DAILY for 14 days order started 12/22/16 Coumadin (Warfarin Sodium) 4 Mg Tablet 1 Tab PO QSA Coumadin (Warfarin Sodium) 4 Mg Tablet 1 Tab PO QM-F fr Mon til Sat Aspirin 325 Mg Tablet 1 Tab PO DAILY Calcium 500 + Vit D 200 Tablet (Calcium Carbonate/Vitamin D3) 1 Each Tablet 1 Each PO DAILY TAKE NEXT DOSE TOMORROW 11/14 IN AM Novolog Flexpen (Insulin Aspart) 100 Unit/1 Ml Insuln.pen 1 Unit SQ 150-200= 4 units 201-250= 7 units 251-300= 10 units 301-350= 13 units 351-400= 16 units 401-450= 18 units 451-500= 20 units 501-550= 22 units notify if bg < 110 NITROGLYCERIN SubLingual (Nitroglycerin) 0.4 Mg Tab.subl 0.4 Mg SL PRN Q5MIN PRN Protonix (Pantoprazole Sodium) 40 Mg Tablet.dr 1 Tab PO DAILY TAKE NEXT DOSE TOMORROW 11/14 IN AM Metoprolol Tartrate 25 Mg Tablet 1 Tab PO BID TAKE NEXT DOSE TONIGHT 710 AT BEDTIME Acetaminophen 500 Mg Tablet 500 Mg PO PRN Q8HRS PRN Potassium Chloride 10 Meq Capsule.er 10 Meq PO DAILY Meloxicam 7.5 Mg Tablet 1 Tab PO DAILY TAKE NEXT DOSE TOMORROW 11/14 IN AM Meclizine Hcl 12.5 Mg Tablet 1 Tab PO BID TAKE NEXT DOSE TONIGHT 07 AT BEDTIME Hydrocodone-Apap 5-325 (Hydrocodone Bit/Acetaminophen) 1 Each Tablet 1 Tab PO Q12HR PRN Spironolactone 25 Mg Tablet 25 Mg PO DAILY TAKE NEXT DOSE TOMORROW 11/14 IN AM Furosemide 80 Mg Tablet 80 Mg PO BID TAKE NEXT DOSE TOMORROW 11/14 IN AM Stool Softener (Docusate Sodium) 100 Mg Capsule 200 Mg PO HS TAKE NEXT DOSE TONIGHT 07 AT BEDTIME Amlodipine Besylate 10 Mg Tablet 10 Mg PO DAILY TAKE NEXT DOSE TOMORROW 11/14 IN AM hold if sbp less than 100 Losartan Potassium 100 Mg Tablet 50 Mg PO DAILY TAKE NEXT DOSE TOMORROW 11/14 IN AM Atorvastatin Calcium 40 Mg Tablet 40 Mg PO HS TAKE NEXT DOSE TONIGHT 07 AT BEDTIME Isosorbide Mononitrate Er (Isosorbide Mononitrate) 60 Mg Tab.er.24h 60 Mg PO DAILY TAKE NEXT DOSE TOMORROW 11/14 IN AM Vitals/I & O Vital Sign - Last 24 Hours 01/01/17 01/01/17 01/01/17 01/01/17 15:00 19:00 19:54 20:54 Temp 97.7 98.2 97.7 98.2 Pulse 59 73 69 Resp 20 20 B/P (MAP) 100/30 (53) 128/43 (71) 125/39 Pulse Ox 99 95 O2 Delivery Room Air Room Air Room Air O2 Flow Rate 97.0 8/28/17 8/29/17 8/29/17 8/29/17 23:00 03:00 07:00 08:00 Temp 97.9 96.4 97.0 97.9 96.4 97.0 Pulse 59 65 60 Resp 20 20 18 B/P (MAP) 130/43 (72) 149/78 (101) 137/48 (77) Pulse Ox 97 99 95 O2 Delivery Room Air Room Air Room Air Room Air O2 Flow Rate 97.0 01/02/17 01/02/17 01/02/17 01/02/17 08:50 09:00 09:00 09:00 Pulse 60 60 60 60 B/P (MAP) 137/48 137/48 137/48 137/48 Intake and Output 01/02/17 01/02/17 01/03/17 15:00 23:00 07:00 Intake Total 250 ml Balance 250 ml JAIRO BUSTILLOS III DO Jan 02, 2017 13:11
--- NOTE | 2017-01-02 14:15 | PDOC2 ---
GI CONSULT Reason For Consult: Pancreatic cysts HPI: HPI: 81 y/o female admitted 12/28/16 w/ hyperglycemia. H/o DM, A1c >11. Additionally , reports abnormal imaging of pancreas in 04/2016 or 05/2016 @ [facility] (hospitalized for endocarditis, had a ELADIO). Because of this had CT A/P which showed 10mm cyst on pancreatic uncinate process (small pseudocyst or side branch IPMN), fatty atrophy of pancreas, and extrahepatic ductal dilation (9mm) with gradual taper to ampulla. Follow-up abd MRI again showed pancreatic atrophy and innumerable cysts scattered throughout the pancreas (from 2mm to 1.2cm) w/o pancreatic ductal dilatation or solid components to lesions. Also noted were hepatic, splenic, and renal cysts. Prior to abnormal imaging earlier this year , denies pancreatic history. Denies n/v, abd pain, weight loss, early satiety, change in appetite, diarrhea, melena, and hematochezia. H/o GERD controlled for the most part on PPI QD. Previous EGD by Dr. Mansfield reportedly showed esophageal narrowing (not dilated as was asymptomatic). We did see her in 2015 for n/v, diarrhea, and anemia on NSAIDs; inpatient EGD was scheduled but cancelled due to CHF exacerbation. Outpt follow-up was recommended but not pursued by pt. Was constipated while taking pain medication since injuring tailbone last week, says was manually disimpacted yesterday and had a stool following. No previous colonoscopy. Additionally note h/o ACD w/ previous labs in 04/2016 showing low iron studies and normal retic, folate, and B12 levels. Most recent labs show normal WBC, Hgb 8.6 (not outside her normal range ) with normal indices, INR 2.2 (on Warfarin), BUN 60, Cr 1.3, glucose 246 (on admission >600), normal lipase and LFTs except Alk Phos 148 (has ranged from 131 to 152 since 04/2016). PMH: PMH: GERD, hiatal hernia, diverticulosis, CAD s/p stents, valvular insufficiency, endocarditis, HTN, KS, DM, DVT (LLE), PVD, CKD, arthritis, cellulitis, breast cancer s/p left lumpectomy and radiation, appendectomy, hysterectomy, cholecystectomy, tonsillectomy, pacemaker FH: Family History: Other (mother - pancreatitis) Social History: Smoke: No ALCOHOL: none (drank socially in the past, essentially not at all since diagnosed w/ DM in 1980s) Drugs: None ROS: GEN: Denies fevers, chills, sweats HEENT: Denies blurred vision, sore throat CV: Denies chest pain RESP: Denies shortness of air, cough GI: Per HPI : Denies hematuria, dysuria ENDO: Denies weight changes NEURO: Denies confusion, dizziness MSK: +tailbone pain SKIN: Denies jaundice, pruritus Vitals: Vitals: Vital Signs Date Time Temp Pulse Resp B/P (MAP) Pulse Ox O2 Delivery O2 Flow Rate FiO2 01/02/17 11:00 97.7 55 18 100/38 (58) 98 Room Air 97.7 01/02/17 08:00 97.0 Labs: Labs: Laboratory Tests Test 01/01/17 17:11 01/01/17 20:49 01/02/17 04:15 01/02/17 04:20 Glucose (Fingerstick) 191 mg/dL (70-99) 368 mg/dL (70-99) White Blood Count 8.6 x10^3/uL (4.0-11.0) Red Blood Count 3.00 x10^6/uL (3.50-5.40) Hemoglobin 8.6 g/dL (12.0-15.5) Hematocrit 25.6 % (36.0-47.0) Mean Corpuscular Volume 85 fL (79-100) Mean Corpuscular Hemoglobin 29 pg (25-35) Mean Corpuscular Hemoglobin Concent 34 g/dL (31-37) Red Cell Distribution Width 16.5 % (11.5-14.5) Platelet Count 336 x10^3/uL (140-400) Neutrophils (%) (Auto) 73 % (31-73) Lymphocytes (%) (Auto) 16 % (24-48) Monocytes (%) (Auto) 7 % (0-9) Eosinophils (%) (Auto) 3 % (0-3) Basophils (%) (Auto) 1 % (0-3) Neutrophils # (Auto) 6.3 x10^3uL (1.8-7.7) Lymphocytes # (Auto) 1.4 x10^3/uL (1.0-4.8) Monocytes # (Auto) 0.6 x10^3/uL (0.0-1.1) Eosinophils # (Auto) 0.2 x10^3/uL (0.0-0.7) Basophils # (Auto) 0.1 x10^3/uL (0.0-0.2) Prothrombin Time 23.0 SEC (11.7-14.0) Prothromb Time International Ratio 2.2 (0.8-1.1) Sodium Level 136 mmol/L (136-145) Potassium Level 4.6 mmol/L (3.5-5.1) Chloride Level 100 mmol/L (98-107) Carbon Dioxide Level 31 mmol/L (21-32) Anion Gap 5 (6-14) Blood Urea Nitrogen 60 mg/dL (7-20) Creatinine 1.3 mg/dL (0.6-1.0) Estimated GFR (Cockcroft-Gault) 39.4 Glucose Level 175 mg/dL (70-99) Calcium Level 9.8 mg/dL (8.5-10.1) Test 01/02/17 07:07 01/02/17 11:41 Glucose (Fingerstick) 180 mg/dL (70-99) 246 mg/dL (70-99) Allergies: Coded Allergies: Iodinated Contrast- Oral and IV Dye (Verified Allergy, Severe, Anaphylaxis , 03/18/16) adhesive tape (Verified Allergy, Intermediate, 03/19/16) meperidine (Verified Adverse Reaction, Intermediate, Vomiting, 04/19/16) Medications: Current Medications Medications (Trade) Dose Ordered Sig/Huyen Route PRN Reason Start Time Stop Time Status Last Admin Dose Admin Insulin Aspart (NovoLOG) 9 units TIDAC SQ 01/01/17 16:30 01/02/17 12:10 Insulin Detemir (Levemir) 25 units QHS SQ 01/01/17 21:00 01/01/17 21:01 Insulin Aspart (NovoLOG) 15 units 1X ONCE SQ 01/01/17 21:30 01/01/17 21:31 DC 01/01/17 21:27 Imaging: Imaging: CT A/P 12/31/16 Findings: There is a 3 mm noncalcified nodule in the right middle lobe series 2/image 1, 3 mm noncalcified nodule in the right middle lobe also on series 2/image 1, 4 mm noncalcified nodule in the right lower lobe series 2/image 2. There are clustered reticular nodular opacities in the lateral left lung base. Moderate generalized cardiomegaly with coronary artery calcifications. Evaluation of the solid abdominopelvic viscera, lymphadenopathy and vasculature is limited in the absence of intravenous contrast. Unenhanced contour of the liver, spleen and adrenal glands are grossly unremarkable. Prior cholecystectomy. There is mild extra hepatic bladder ductal dilatation measuring up to 9 mm with gradual tapering to the ampulla and may be due to prior cholecystectomy. There is a small superior pole left renal cyst. No collecting system dilatation. There is moderate fatty atrophy of the pancreas. There is no suspicious solid soft tissue mass in the pancreas. There is a 11 mm low attenuation structure in the uncinate process with internal Hounsfield units of 10 which may represent a pancreatic pseudocyst or side branch IPM and. No main branch pancreatic ductal dilatation. Abdominal aorta is normal in caliber with heavy calcified atheromatous disease of the abdominal aorta, iliac arteries and major branch vessels. There is a small hiatal hernia. No bowel obstruction. There is mild scattered distal colonic diverticulosis without diverticulitis. No abdominal free fluid. No definite retroperitoneal or mesenteric lymphadenopathy. Mildly distended and unopacified urinary bladder unremarkable. Prior hysterectomy with the vaginal cuff within normal limits. No iliac or inguinal lymphadenopathy. There is mild subcutaneous stranding anterior to the right common femoral artery, likely due to prior catheterization. There is diffuse bony demineralization. There is a moderate central superior compression deformity at L2 with no significant bony retropulsion. Impression: 1. 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 No main branch pancreatic ductal dilatation or focal parenchymal atrophy. Given patient cannot receive iodinated contrast due to anaphylaxis, follow-up MR abdomen with contrast is recommended. 2. A few sub-5 mm noncalcified pulmonary nodules in the visualized lung bases, indeterminate. Follow-up noncontrast CT chest is recommended to assess for stability. 3. Moderate L2 compression deformity, age indeterminate, with no significant bony retropulsion. Correlation with point tenderness is recommended. Abd MRI 01/01/17 There is mild to moderate cardiomegaly. A moderate-sized sliding hiatal hernia is seen. The adrenal glands are within normal limits. A 6 mm rounded high signal intensity lesion is seen involving the left lobe of the liver on the T2- weighted images consistent with a hepatic cyst. A 8 mm high signal intensity area is seen involving the anterior aspect of the spleen on the T2-weighted images. This likely represents a cyst. Several rounded high signal intensity lesions are seen on the T2-weighted images scattered throughout both kidneys. These measure 2 mm to 1.6 cm in size. They likely represent cysts. Atrophy of the pancreas is noted. Innumerable small rounded high signal intensity lesions are seen scattered throughout the pancreas which predominantly measure 2 mm to 1 cm in size on the T2-weighted images. The largest lesion is located in the uncinate process of the pancreas. It measures 1.2 cm in greatest diameter. This corresponds to the abnormality seen on patient 's CT scan. No solid component is definitely visualized involving any of these lesions. No significant dilatation of the pancreatic duct is noted. These lesions are felt to most likely represent cysts. The abdominal aorta tapers normally. No free fluid fluid is seen. The patient appears to be post cholecystectomy. There is no evidence of bowel obstruction. The marrow signal visualized bony structures is within normal limits. Impression: Innumerable cysts are seen scattered throughout the pancreas which measure 2 mm to 1.2 cm in size. No solid mass is seen. PE: GEN: NAD HEENT: Atraumatic, PERRL LUNGS: CTAB HEART: RRR +murm ABD: NABS, S/ND/NT EXTREMITY: No edema SKIN: No rashes, no jaundice NEURO/PSYCH: A & O 3 A/P: A/P: Uncontrolled IDDM, CKD Abnormal imaging of pancreas -abd MRI: pancreatic atrophy, innumerable cysts scattered throughout the pancreas (from 2mm to 1.2cm) -mother had pancreatitis ACD GERD - controlled w/ PPI Constipation - resolved -has Miralax and Colace QD along w/ Dulcolax tabs/supp PRN CRC screen -no previous colonoscopy -- Requested records from [facility]. Will review w/ Dr. Jj re: further workup. PAYAM ELLER Jan 02, 2017 14:14
[2017-01-02] MEDS: WARFARIN 4 MG TABLET. PO SCH (16:30)
[2017-01-02] MEDS: DOCUSATE SODIUM 100 MG CAPSULE. PO SCH (20:21)
[2017-01-02] MEDS: ATORVASTATIN CALCIUM 40 MG TABLET. PO SCH (20:21)
[2017-01-02] MEDS: INSULIN DETEMIR 300 UNITS/3 ML INSULN.PEN. SQ SCH (20:29)
[2017-01-03 05:48] LABS: BASO % 1 % (0-3); EOS % 3 % (0-3); HEMATOCRIT 27.5 % (36.0-47.0); HEMOGLOBIN 9.6 g/dL (12.0-15.5); LYMPH # 1.4 x10^3/uL (1.0-4.8); LYMPH % 17 % (24-48); MEAN CORPUSCULAR HEMOGLOBIN 29 pg (25-35); MEAN CORPUSCULAR HGB CONC 35 g/dL (31-37); MEAN CORPUSCULAR VOLUME 84 fL (79-100); MONO % 8 % (0-9); NEUT % 71 % (31-73); PLATELET COUNT 341 x10^3/uL (140-400); RED BLOOD COUNT 3.29 x10^6/uL (3.50-5.40); RED CELL DISTRIBUTION WIDTH 16.7 % (11.5-14.5)
[2017-01-03 06:04] LABS: CALCIUM 10.1 mg/dL (8.5-10.1); CREATININE 1.4 mg/dL (0.6-1.0); GFR 36.2; POTASSIUM 4.5 mmol/L (3.5-5.1)
[2017-01-03 07:00] VITALS: BP 153/47
[2017-01-03] MEDS: PANTOPRAZOLE 40 MG TABLET.DR. PO SCH (08:33)
[2017-01-03] MEDS: MECLIZINE HCL 12.5 MG TABLET. PO SCH ×2 (08:34→21:34)
[2017-01-03] MEDS: SPIRONOLACTONE 25 MG TABLET PO SCH (08:34)
[2017-01-03] MEDS: LOSARTAN POTASSIUM 50 MG TABLET. PO SCH (08:35)
[2017-01-03] MEDS: FUROSEMIDE 80 MG TABLET. PO SCH ×2 (08:36→13:46)
[2017-01-03] MEDS: ISOSORBIDE MONONITRATE ER 30 MG TAB.ER.24H PO SCH (08:36)
[2017-01-03] MEDS: POLYETHYLENE GLYCOL 3350 17 GM PACKET. PO SCH (08:37)
[2017-01-03] MEDS: METOPROLOL TART IMMED RELEASE 25 MG TABLET. PO SCH ×2 (08:37→21:35)
[2017-01-03] MEDS: amLODIPine BESYLATE 10 MG TABLET PO SCH (08:37)
[2017-01-03] MEDS: CALCIUM CARB/VIT D3 500/200 TABLET. PO SCH (08:38)
[2017-01-03] MEDS: ASPIRIN 325 MG TABLET PO SCH (08:38)
[2017-01-03] MEDS: INSULIN ASPART 300 UNITS/3 ML INSULN.PEN SQ SCH ×7 (08:48→21:00)
--- NOTE | 2017-01-03 09:24 | PDOC ---
PROGRESS NOTES Subjective Subjective Feeling much better today Admits to some mild SOB, but states it is chronic in nature. Denies chest pain, n/v, lightheadedness, syncope/presyncope, or any other symptoms Constipation significantly improved States her insulin is still being adjusted, but she is encouraged by the improvement. States she is very happy with the care she has been receiving here. Objective Objective Vital Signs Date Time Temp Pulse Resp B/P (MAP) Pulse Ox O2 Delivery O2 Flow Rate FiO2 01/03/17 08:37 64 153/47 01/03/17 07:00 98.1 18 96 Room Air 98.1 01/02/17 08:00 97.0 Physical Exam Physical Exam no significant changes Assessment Assessment 1) Hyperglycemia 2) Uncontrolled DBMT2 2) Hx of endocarditis 3) CAD 4) HTN 6) Hx TN Plan Plan of Care I would like to see her again tomorrow before possible d/c as I will continue to f/u with her in the outpatient setting. I will call the FOOD WRITER at her long term and go over medication changes. Blood sugars remain high at 211 this AM, however they are much improved. Pt will need long-term close follow up regarding this. GI seeing patient regarding pancreatic cysts. 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 Mother had pancreatitis, from this. She continues to be compensated cardiac ramos. No further changes at this time Thank you for involving me in her care! Comment Review of Relevant I have reviewed the following items alejandra (where applicable) has been applied. Labs Laboratory Tests Test 01/01/17 11:27 01/01/17 17:11 01/01/17 20:49 01/02/17 04:15 Glucose (Fingerstick) 260 mg/dL (70-99) 191 mg/dL (70-99) 368 mg/dL (70-99) White Blood Count 8.6 x10^3/uL (4.0-11.0) Red Blood Count 3.00 x10^6/uL (3.50-5.40) Hemoglobin 8.6 g/dL (12.0-15.5) Hematocrit 25.6 % (36.0-47.0) Mean Corpuscular Volume 85 fL (79-100) Mean Corpuscular Hemoglobin 29 pg (25-35) Mean Corpuscular Hemoglobin Concent 34 g/dL (31-37) Red Cell Distribution Width 16.5 % (11.5-14.5) Platelet Count 336 x10^3/uL (140-400) Neutrophils (%) (Auto) 73 % (31-73) Lymphocytes (%) (Auto) 16 % (24-48) Monocytes (%) (Auto) 7 % (0-9) Eosinophils (%) (Auto) 3 % (0-3) Basophils (%) (Auto) 1 % (0-3) Neutrophils # (Auto) 6.3 x10^3uL (1.8-7.7) Lymphocytes # (Auto) 1.4 x10^3/uL (1.0-4.8) Monocytes # (Auto) 0.6 x10^3/uL (0.0-1.1) Eosinophils # (Auto) 0.2 x10^3/uL (0.0-0.7) Basophils # (Auto) 0.1 x10^3/uL (0.0-0.2) Prothrombin Time 23.0 SEC (11.7-14.0) Prothromb Time International Ratio 2.2 (0.8-1.1) Test 01/02/17 04:20 01/02/17 07:07 01/02/17 11:41 01/02/17 16:14 Sodium Level 136 mmol/L (136-145) Potassium Level 4.6 mmol/L (3.5-5.1) Chloride Level 100 mmol/L (98-107) Carbon Dioxide Level 31 mmol/L (21-32) Anion Gap 5 (6-14) Blood Urea Nitrogen 60 mg/dL (7-20) Creatinine 1.3 mg/dL (0.6-1.0) Estimated GFR (Cockcroft-Gault) 39.4 Glucose Level 175 mg/dL (70-99) Calcium Level 9.8 mg/dL (8.5-10.1) Glucose (Fingerstick) 180 mg/dL (70-99) 246 mg/dL (70-99) 218 mg/dL (70-99) Test 01/02/17 20:10 01/03/17 04:50 01/03/17 07:56 Glucose (Fingerstick) 206 mg/dL (70-99) 211 mg/dL (70-99) White Blood Count 8.0 x10^3/uL (4.0-11.0) Red Blood Count 3.29 x10^6/uL (3.50-5.40) Hemoglobin 9.6 g/dL (12.0-15.5) Hematocrit 27.5 % (36.0-47.0) Mean Corpuscular Volume 84 fL (79-100) Mean Corpuscular Hemoglobin 29 pg (25-35) Mean Corpuscular Hemoglobin Concent 35 g/dL (31-37) Red Cell Distribution Width 16.7 % (11.5-14.5) Platelet Count 341 x10^3/uL (140-400) Neutrophils (%) (Auto) 71 % (31-73) Lymphocytes (%) (Auto) 17 % (24-48) Monocytes (%) (Auto) 8 % (0-9) Eosinophils (%) (Auto) 3 % (0-3) Basophils (%) (Auto) 1 % (0-3) Neutrophils # (Auto) 5.7 x10^3uL (1.8-7.7) Lymphocytes # (Auto) 1.4 x10^3/uL (1.0-4.8) Monocytes # (Auto) 0.6 x10^3/uL (0.0-1.1) Eosinophils # (Auto) 0.3 x10^3/uL (0.0-0.7) Basophils # (Auto) 0.0 x10^3/uL (0.0-0.2) Sodium Level 136 mmol/L (136-145) Potassium Level 4.5 mmol/L (3.5-5.1) Chloride Level 98 mmol/L (98-107) Carbon Dioxide Level 30 mmol/L (21-32) Anion Gap 8 (6-14) Blood Urea Nitrogen 65 mg/dL (7-20) Creatinine 1.4 mg/dL (0.6-1.0) Estimated GFR (Cockcroft-Gault) 36.2 Glucose Level 214 mg/dL (70-99) Calcium Level 10.1 mg/dL (8.5-10.1) Laboratory Tests Test 01/02/17 11:41 01/02/17 16:14 01/02/17 20:10 01/03/17 04:50 Glucose (Fingerstick) 246 mg/dL (70-99) 218 mg/dL (70-99) 206 mg/dL (70-99) White Blood Count 8.0 x10^3/uL (4.0-11.0) Red Blood Count 3.29 x10^6/uL (3.50-5.40) Hemoglobin 9.6 g/dL (12.0-15.5) Hematocrit 27.5 % (36.0-47.0) Mean Corpuscular Volume 84 fL (79-100) Mean Corpuscular Hemoglobin 29 pg (25-35) Mean Corpuscular Hemoglobin Concent 35 g/dL (31-37) Red Cell Distribution Width 16.7 % (11.5-14.5) Platelet Count 341 x10^3/uL (140-400) Neutrophils (%) (Auto) 71 % (31-73) Lymphocytes (%) (Auto) 17 % (24-48) Monocytes (%) (Auto) 8 % (0-9) Eosinophils (%) (Auto) 3 % (0-3) Basophils (%) (Auto) 1 % (0-3) Neutrophils # (Auto) 5.7 x10^3uL (1.8-7.7) Lymphocytes # (Auto) 1.4 x10^3/uL (1.0-4.8) Monocytes # (Auto) 0.6 x10^3/uL (0.0-1.1) Eosinophils # (Auto) 0.3 x10^3/uL (0.0-0.7) Basophils # (Auto) 0.0 x10^3/uL (0.0-0.2) Sodium Level 136 mmol/L (136-145) Potassium Level 4.5 mmol/L (3.5-5.1) Chloride Level 98 mmol/L (98-107) Carbon Dioxide Level 30 mmol/L (21-32) Anion Gap 8 (6-14) Blood Urea Nitrogen 65 mg/dL (7-20) Creatinine 1.4 mg/dL (0.6-1.0) Estimated GFR (Cockcroft-Gault) 36.2 Glucose Level 214 mg/dL (70-99) Calcium Level 10.1 mg/dL (8.5-10.1) Test 01/03/17 07:56 Glucose (Fingerstick) 211 mg/dL (70-99) Microbiology 12/28/16 Blood Culture - Final, Complete NO GROWTH AFTER 5 DAYS 12/28/16 Urine Culture - Final, Complete 12/28/16 Urine Culture Result 1 (SHERRIE) - Final, Complete Medications Current Medications Ceftriaxone Sodium 50 ml @ 100 mls/hr 1X ONCE IV Last administered on 15:29; Start 12/28/16 at 15:15; Stop 12/28/16 at 15:44; Status DC Insulin Aspart (NovoLOG) 0-7 UNITS TIDWMEALS SQ Last administered on 12/29/16 08:08; Start 12/28/16 at 17:00; Stop 12/29/16 at 16:00; Status DC Dextrose (Dextrose 50%-Water Syringe) 12.5 gm PRN Q15MIN PRN IV SEE COMMENTS; Start 12/28/16 at 15:30; Stop 12/29/16 at 17:02; Status DC Sodium Chloride 1,000 ml @ 1,000 mls/hr 1X ONCE IV Last administered on 15:48; Start 12/28/16 at 15:45; Stop 12/28/16 at 16:44; Status DC Ondansetron HCl (Zofran) 4 mg PRN Q8HRS PRN IV NAUSEA/VOMITING; Start 12/28/16 at 16:30; Stop 12/29/16 at 16:29; Status DC Insulin Aspart (NovoLOG) 10 units 1X ONCE SQ Last administered on 12/28/16 17 :35; Start 12/28/16 at 17:15; Stop 12/28/16 at 17:16; Status DC Insulin Aspart (NovoLOG) 10 units 1X ONCE SQ Last administered on 12/28/16 19 :24; Start 12/28/16 at 19:15; Stop 12/28/16 at 19:16; Status DC Acetaminophen (Tylenol) 500 mg PRN Q8HRS PRN PO MILD TO MODERATE PAIN Last administered on 01/02/17 16:30; Start 12/28/16 at 20:00 Amlodipine Besylate (Norvasc) 10 mg DAILY PO Last administered on 01/03/17 08: 37; Start 12/29/16 at 09:00 Aspirin (Derek Aspirin) 325 mg [id number] PO Last administered on 01/03/17 08: 38; Start 12/29/16 at 08:00 Atorvastatin Calcium (Lipitor) 40 mg HS PO Last administered on 01/02/17 20:21 ; Start 12/28/16 at 21:00 Calcium/Vitamin D (Oscal D 500mg/ 200uts) 1 tab DAILY PO Last administered on 08:38; Start 12/29/16 at 09:00 Docusate Sodium (Colace) 200 mg HS PO Last administered on 01/02/17 20:21; Start 12/28/16 at 21:00 Furosemide (Lasix) 80 mg BID92 PO Last administered on 01/03/17 08:36; Start 12/29/16 at 09:00 Acetaminophen/ Hydrocodone Bitart (Lortab 5/325) 1 tab Q12HR PRN PO PAIN Last administered on 12/31/16 21:19; Start 12/28/16 at 20:00; Stop 01/01/17 at 14:18 ; Status DC Meclizine HCl (Antivert) 12.5 mg BID PO Last administered on 01/03/17 08:34; Start 12/28/16 at 21:00 Meloxicam (Mobic) 7.5 mg DAILY PO Last administered on 12/29/16 08:45; Start 12/29/16 at 09:00; Stop 12/29/16 at 11:53; Status DC Metoprolol Tartrate (Lopressor) 25 mg BID PO Last administered on 01/03/17 08: 37; Start 12/28/16 at 21:00 Nitroglycerin (Nitrostat) 0.4 mg PRN Q5MIN PRN SL CHEST PAIN; Start 12/28/16 at 20:00 Pantoprazole Sodium (Protonix) 40 mg DAILYAC PO Last administered on 01/03/17 08:33; Start 12/29/16 at 07:30 Spironolactone (Aldactone) 25 mg DAILY PO Last administered on 01/03/17 08:34 ; Start 12/29/16 at 09:00 Warfarin Sodium (Coumadin) 4 mg QM-F PO Last administered on 01/02/17 16:30; Start 12/29/16 at 16:00 Warfarin Sodium (Coumadin) 4 mg QSA PO Last administered on 12/30/16 17:02; Start 12/30/16 at 16:00 Isosorbide Mononitrate (Imdur) 60 mg DAILY PO Last administered on 01/03/17 08 :36; Start 12/29/16 at 09:00 Losartan Potassium (Cozaar) 50 mg DAILY PO Last administered on 01/03/17 08:35 ; Start 12/29/16 at 09:00 Levofloxacin (Levaquin) 250 mg DAILY06 PO Last administered on 12/29/16 06:30 ; Start 12/29/16 at 06:00; Stop 12/29/16 at 09:49; Status DC Warfarin Sodium (Coumadin Per Pharmacy) 1 each PRN DAILY PRN MC SEE COMMENTS Last administered on 01/02/17 13:08; Start 12/28/16 at 20:45 Warfarin Sodium (Coumadin) 4 mg 1X WARF ONCE PO Last administered on 22:33; Start 12/28/16 at 21:29; Stop 12/28/16 at 21:30; Status DC Insulin Aspart (NovoLOG) 5 units 1X ONCE SQ Last administered on 12/29/16 08: 51; Start 12/29/16 at 08:30; Stop 12/29/16 at 08:31; Status DC Insulin Human Regular (NovoLIN R VIAL) 10 unit 1X ONCE IV Last administered on 12/29/16 12:18; Start 12/29/16 at 12:15; Stop 12/29/16 at 12:16; Status DC Sodium Chloride 1,000 ml @ 75 mls/hr [id number] IV Last administered on 00:25; Start 12/29/16 at 12:00; Stop 12/31/16 at 13:45; Status DC Lidocaine (Lidoderm) 1 patch PRN DAILY PRN TD PAIN Last administered on 08:50; Start 12/29/16 at 13:30 Insulin Detemir (Levemir) 20 units QHS SQ Last administered on 12/31/16 21:29 ; Start 12/29/16 at 21:00; Stop 01/01/17 at 12:24; Status DC Insulin Aspart (NovoLOG) 6 units TIDAC SQ Last administered on 01/01/17 12:12 ; Start 12/29/16 at 16:30; Stop 01/01/17 at 12:24; Status DC Insulin Aspart (NovoLOG) 0-9 UNITS QIDACHS SQ Last administered on 01/03/17 08 :48; Start 12/29/16 at 16:30 Dextrose (Dextrose 50%-Water Syringe) 12.5 gm PRN Q15MIN PRN IV SEE COMMENTS; Start 12/29/16 at 16:00 Insulin Aspart (NovoLOG) 20 units 1X ONCE SQ Last administered on 12/29/16 17 :32; Start 12/29/16 at 17:00; Stop 12/29/16 at 17:02; Status DC Insulin Aspart (NovoLOG) 15 units 1X ONCE SQ Last administered on 12/29/16 20 :58; Start 12/29/16 at 21:00; Stop 12/29/16 at 21:01; Status DC Insulin Aspart (NovoLOG) 15 units 1X ONCE SQ Last administered on 12/30/16 21 :50; Start 12/30/16 at 21:30; Stop 12/30/16 at 21:32; Status DC Polyethylene Glycol (miraLAX PACKET) 17 gm DAILY PO Last administered on 08:37; Start 12/31/16 at 15:00 Bisacodyl (Dulcolax Tab) 10 mg PRN DAILY PRN PO CONSTIPATION Last administered on 12/31/16 17:07; Start 12/31/16 at 14:45 Insulin Aspart (NovoLOG) 10 units TIDAC SQ ; Start 01/01/17 at 16:30; Stop 01/01 at 16:30; Status DC Insulin Detemir (Levemir) 28 units QHS SQ ; Start 01/01/17 at 21:00; Stop at 21:00; Status DC Bisacodyl (Dulcolax Supp) 10 mg PRN DAILY PRN [place] CONSTIPATION Last administered on 01/01/17 13:09; Start 01/01/17 at 12:45 Sodium Monofluorophosphate (Fleet Adult) 133 ml PRN DAILY PRN [place] CONSTIPATION; Start 01/01/17 at 12:45 Insulin Aspart (NovoLOG) 9 units TIDAC SQ Last administered on 01/02/17 16:38 ; Start 01/01/17 at 16:30; Stop 01/03/17 at 08:03; Status DC Insulin Detemir (Levemir) 25 units QHS SQ Last administered on 01/02/17 20:29 ; Start 01/01/17 at 21:00; Stop 01/03/17 at 08:03; Status DC Acetaminophen/ Hydrocodone Bitart (Lortab 5/325) 1 tab PRN Q12HR PRN PO MODERATE TO SEVER PAIN; Start 01/01/17 at 14:30 Insulin Aspart (NovoLOG) 15 units 1X ONCE SQ Last administered on 01/01/17 21 :27; Start 01/01/17 at 21:30; Stop 01/01/17 at 21:31; Status DC Insulin Aspart (NovoLOG) 10 units TIDAC SQ ; Start 01/03/17 at 11:30; Stop 01/03 at 11:30; Status DC Insulin Detemir (Levemir) 27 units QHS SQ ; Start 01/03/17 at 21:00 Insulin Aspart (NovoLOG) 10 units TIDAC SQ Last administered on 01/03/17 08:49 ; Start 01/03/17 at 08:30 Active Scripts Active Reported Levaquin (Levofloxacin) 500 Mg Tablet 250 Mg PO DAILY for 14 days order started 12/22/16 Coumadin (Warfarin Sodium) 4 Mg Tablet 1 Tab PO QSA Coumadin (Warfarin Sodium) 4 Mg Tablet 1 Tab PO QM-F fr Mon til Sat Aspirin 325 Mg Tablet 1 Tab PO DAILY Calcium 500 + Vit D 200 Tablet (Calcium Carbonate/Vitamin D3) 1 Each Tablet 1 Each PO DAILY TAKE NEXT DOSE TOMORROW 11/14 IN AM Novolog Flexpen (Insulin Aspart) 100 Unit/1 Ml Insuln.pen 1 Unit SQ 150-200= 4 units 201-250= 7 units 251-300= 10 units 301-350= 13 units 351-400= 16 units 401-450= 18 units 451-500= 20 units 501-550= 22 units notify if bg < 110 NITROGLYCERIN SubLingual (Nitroglycerin) 0.4 Mg Tab.subl 0.4 Mg SL PRN Q5MIN PRN Protonix (Pantoprazole Sodium) 40 Mg Tablet.dr 1 Tab PO DAILY TAKE NEXT DOSE TOMORROW 11/14 IN AM Metoprolol Tartrate 25 Mg Tablet 1 Tab PO BID TAKE NEXT DOSE TONIGHT 7/10 AT BEDTIME Acetaminophen 500 Mg Tablet 500 Mg PO PRN Q8HRS PRN Potassium Chloride 10 Meq Capsule.er 10 Meq PO DAILY Meloxicam 7.5 Mg Tablet 1 Tab PO DAILY TAKE NEXT DOSE TOMORROW 11/14 IN AM Meclizine Hcl 12.5 Mg Tablet 1 Tab PO BID TAKE NEXT DOSE TONIGHT 11/13 AT BEDTIME Hydrocodone-Apap 5-325 (Hydrocodone Bit/Acetaminophen) 1 Each Tablet 1 Tab PO Q12HR PRN Spironolactone 25 Mg Tablet 25 Mg PO DAILY TAKE NEXT DOSE TOMORROW 11/14 IN AM Furosemide 80 Mg Tablet 80 Mg PO BID TAKE NEXT DOSE TOMORROW 11/14 IN AM Stool Softener (Docusate Sodium) 100 Mg Capsule 200 Mg PO HS TAKE NEXT DOSE TONIGHT 11/13 AT BEDTIME Amlodipine Besylate 10 Mg Tablet 10 Mg PO DAILY TAKE NEXT DOSE TOMORROW 11/14 IN AM hold if sbp less than 100 Losartan Potassium 100 Mg Tablet 50 Mg PO DAILY TAKE NEXT DOSE TOMORROW 11/14 IN AM Atorvastatin Calcium 40 Mg Tablet 40 Mg PO HS TAKE NEXT DOSE TONIGHT 11/13 AT BEDTIME Isosorbide Mononitrate Er (Isosorbide Mononitrate) 60 Mg Tab.er.24h 60 Mg PO DAILY TAKE NEXT DOSE TOMORROW 11/14 IN AM Vitals/I & O Vital Sign - Last 24 Hours 01/02/17 01/02/17 01/02/17 01/02/17 11:00 15:00 19:15 19:50 Temp 97.7 97.5 97.9 97.7 97.5 97.9 Pulse 55 55 57 Resp 18 18 14 B/P (MAP) 100/38 (58) 113/42 (65) 131/39 (69) Pulse Ox 98 99 98 O2 Delivery Room Air Room Air Room Air Room Air 01/02/17 01/02/17 01/02/17 01/03/17 20:01 20:22 23:03 07:00 Temp 97.9 97.7 98.1 97.9 97.7 98.1 Pulse 57 57 60 64 Resp 14 16 18 B/P (MAP) 131/39 (69) 131/39 136/40 (72) 153/47 (82) Pulse Ox 98 95 96 O2 Delivery Room Air Room Air Room Air 8/3001/03/17 01/03/17 01/03/17 08:35 08:36 08:37 08:37 Pulse 64 64 64 64 B/P ([facility]) 153/47 153/47 153/47 153/47 WILLY GURROLA MD Jan 03, 2017 09:24
[2017-01-03] MEDS: LIDOCAINE (700MG/PATCH) PATCH. TD PRN (10:26)
[2017-01-03] MEDS: HYDROcodone/APAP 5/325MG 1 TAB TABLET PO PRN ×2 (10:27→21:47)
[2017-01-03 11:00] VITALS: BP 138/48
[2017-01-03] MEDS ORDERED: INSULIN ASPART 300 UNITS/3 ML INSULN.PEN SQ SCH (11:30)
--- NOTE | 2017-01-03 11:57 | PDOC ---
Subjective: Subjective: Feeling better, no GI complaints, says might get to discharge tomorrow. No BM today. Objective: Vital Signs: Vital Signs Date Time Temp Pulse Resp B/P (MAP) Pulse Ox O2 Delivery O2 Flow Rate FiO2 01/03/17 11:00 97.7 18 18 138/48 (78) 97 Room Air 97.7 01/02/17 08:00 97.0 Labs: Laboratory Tests Test 01/02/17 16:14 01/02/17 20:10 01/03/17 04:50 01/03/17 07:56 Glucose (Fingerstick) 218 mg/dL 206 mg/dL 211 mg/dL White Blood Count 8.0 x10^3/uL Red Blood Count 3.29 x10^6/uL Hemoglobin 9.6 g/dL Hematocrit 27.5 % Mean Corpuscular Volume 84 fL Mean Corpuscular Hemoglobin 29 pg Mean Corpuscular Hemoglobin Concent 35 g/dL Red Cell Distribution Width 16.7 % Platelet Count 341 x10^3/uL Neutrophils (%) (Auto) 71 % Lymphocytes (%) (Auto) 17 % Monocytes (%) (Auto) 8 % Eosinophils (%) (Auto) 3 % Basophils (%) (Auto) 1 % Neutrophils # (Auto) 5.7 x10^3uL Lymphocytes # (Auto) 1.4 x10^3/uL Monocytes # (Auto) 0.6 x10^3/uL Eosinophils # (Auto) 0.3 x10^3/uL Basophils # (Auto) 0.0 x10^3/uL Sodium Level 136 mmol/L Potassium Level 4.5 mmol/L Chloride Level 98 mmol/L Carbon Dioxide Level 30 mmol/L Anion Gap 8 Blood Urea Nitrogen 65 mg/dL Creatinine 1.4 mg/dL Estimated GFR (Cockcroft-Gault) 36.2 Glucose Level 214 mg/dL Calcium Level 10.1 mg/dL Test 01/03/17 11:26 Glucose (Fingerstick) 257 mg/dL PE: GEN: NAD LUNGS: clear HEART: RRR ABD: NABS, S/ND/NT NEURO/PSYCH: A & O 3 A/P: Uncontrolled IDDM, CKD, CAD, h/o endocarditis, h/o DVT Abnormal imaging of pancreas -abd MRI: pancreatic atrophy, innumerable cysts scattered throughout the pancreas (from 2mm to 1.2cm) Constipation - resolved -has Miralax and Colace QD along w/ Dulcolax tabs/supp PRN -no previous colonoscopy -additional h/o anemia (chronic disease), also GERD on PPI (previous EGD by Dr. Mansfield) -- No additional workup for pancreatic cysts at this time. Continue PPI and Miralax. PAYAM ELLER Jan 03, 2017 11:57
--- NOTE | 2017-01-03 13:16 | PDOC ---
PROGRESS NOTES Chief Complaint Chief Complaint uncontrolled DM2 hyponatremia GRACIELA on ckd3, vasomotor no UTI h/o endocarditis h/o CAD with pci stable systolic CHF ef 40% H/O BCa htn gerd from assisted living facility h/o DVT on warfarin abd pain, with pancreatic cysts, chronic cyst plan: fu with gi, card, id, renal cr stable no need abx slightly increased insulin ,see orders plan dc tmr History of Present Illness History of Present Illness glucose better cr ok no fever, chills, sob or chest pain Vitals Vitals Vital Signs Date Time Temp Pulse Resp B/P (MAP) Pulse Ox O2 Delivery O2 Flow Rate FiO2 01/03/17 11:27 20 95 Room Air 01/03/17 11:00 97.7 18 138/48 (78) 97.7 01/02/17 08:00 97.0 Physical Exam General: Alert, Oriented X3, Cooperative, No acute distress Heart: Regular rate, Normal S1, Normal S2 Lungs: Clear, Other (No respiratory distress ) Abdomen: Normal bowel sounds, Soft, No tenderness Extremities: No clubbing, No cyanosis, No edema Skin: No rashes, No breakdown Labs LABS Laboratory Tests Test 01/02/17 16:14 01/02/17 20:10 01/03/17 04:50 01/03/17 07:56 Glucose (Fingerstick) 218 mg/dL (70-99) 206 mg/dL (70-99) 211 mg/dL (70-99) White Blood Count 8.0 x10^3/uL (4.0-11.0) Red Blood Count 3.29 x10^6/uL (3.50-5.40) Hemoglobin 9.6 g/dL (12.0-15.5) Hematocrit 27.5 % (36.0-47.0) Mean Corpuscular Volume 84 fL (79-100) Mean Corpuscular Hemoglobin 29 pg (25-35) Mean Corpuscular Hemoglobin Concent 35 g/dL (31-37) Red Cell Distribution Width 16.7 % (11.5-14.5) Platelet Count 341 x10^3/uL (140-400) Neutrophils (%) (Auto) 71 % (31-73) Lymphocytes (%) (Auto) 17 % (24-48) Monocytes (%) (Auto) 8 % (0-9) Eosinophils (%) (Auto) 3 % (0-3) Basophils (%) (Auto) 1 % (0-3) Neutrophils # (Auto) 5.7 x10^3uL (1.8-7.7) Lymphocytes # (Auto) 1.4 x10^3/uL (1.0-4.8) Monocytes # (Auto) 0.6 x10^3/uL (0.0-1.1) Eosinophils # (Auto) 0.3 x10^3/uL (0.0-0.7) Basophils # (Auto) 0.0 x10^3/uL (0.0-0.2) Sodium Level 136 mmol/L (136-145) Potassium Level 4.5 mmol/L (3.5-5.1) Chloride Level 98 mmol/L (98-107) Carbon Dioxide Level 30 mmol/L (21-32) Anion Gap 8 (6-14) Blood Urea Nitrogen 65 mg/dL (7-20) Creatinine 1.4 mg/dL (0.6-1.0) Estimated GFR (Cockcroft-Gault) 36.2 Glucose Level 214 mg/dL (70-99) Calcium Level 10.1 mg/dL (8.5-10.1) Test 01/03/17 11:26 Glucose (Fingerstick) 257 mg/dL (70-99) Assessment and Plan Assessmemt and Plan Problems Medical Problems: (1) UTI (urinary tract infection) Status: Acute Problems: Comment Review of Relevant I have reviewed the following items alejandra (where applicable) has been applied. Labs Laboratory Tests Test 01/01/17 17:11 01/01/17 20:49 01/02/17 04:15 01/02/17 04:20 Glucose (Fingerstick) 191 mg/dL (70-99) 368 mg/dL (70-99) White Blood Count 8.6 x10^3/uL (4.0-11.0) Red Blood Count 3.00 x10^6/uL (3.50-5.40) Hemoglobin 8.6 g/dL (12.0-15.5) Hematocrit 25.6 % (36.0-47.0) Mean Corpuscular Volume 85 fL (79-100) Mean Corpuscular Hemoglobin 29 pg (25-35) Mean Corpuscular Hemoglobin Concent 34 g/dL (31-37) Red Cell Distribution Width 16.5 % (11.5-14.5) Platelet Count 336 x10^3/uL (140-400) Neutrophils (%) (Auto) 73 % (31-73) Lymphocytes (%) (Auto) 16 % (24-48) Monocytes (%) (Auto) 7 % (0-9) Eosinophils (%) (Auto) 3 % (0-3) Basophils (%) (Auto) 1 % (0-3) Neutrophils # (Auto) 6.3 x10^3uL (1.8-7.7) Lymphocytes # (Auto) 1.4 x10^3/uL (1.0-4.8) Monocytes # (Auto) 0.6 x10^3/uL (0.0-1.1) Eosinophils # (Auto) 0.2 x10^3/uL (0.0-0.7) Basophils # (Auto) 0.1 x10^3/uL (0.0-0.2) Prothrombin Time 23.0 SEC (11.7-14.0) Prothromb Time International Ratio 2.2 (0.8-1.1) Sodium Level 136 mmol/L (136-145) Potassium Level 4.6 mmol/L (3.5-5.1) Chloride Level 100 mmol/L (98-107) Carbon Dioxide Level 31 mmol/L (21-32) Anion Gap 5 (6-14) Blood Urea Nitrogen 60 mg/dL (7-20) Creatinine 1.3 mg/dL (0.6-1.0) Estimated GFR (Cockcroft-Gault) 39.4 Glucose Level 175 mg/dL (70-99) Calcium Level 9.8 mg/dL (8.5-10.1) Test 01/02/17 07:07 01/02/17 11:41 01/02/17 16:14 01/02/17 20:10 Glucose (Fingerstick) 180 mg/dL (70-99) 246 mg/dL (70-99) 218 mg/dL (70-99) 206 mg/dL (70-99) Test 01/03/17 04:50 01/03/17 07:56 01/03/17 11:26 White Blood Count 8.0 x10^3/uL (4.0-11.0) Red Blood Count 3.29 x10^6/uL (3.50-5.40) Hemoglobin 9.6 g/dL (12.0-15.5) Hematocrit 27.5 % (36.0-47.0) Mean Corpuscular Volume 84 fL (79-100) Mean Corpuscular Hemoglobin 29 pg (25-35) Mean Corpuscular Hemoglobin Concent 35 g/dL (31-37) Red Cell Distribution Width 16.7 % (11.5-14.5) Platelet Count 341 x10^3/uL (140-400) Neutrophils (%) (Auto) 71 % (31-73) Lymphocytes (%) (Auto) 17 % (24-48) Monocytes (%) (Auto) 8 % (0-9) Eosinophils (%) (Auto) 3 % (0-3) Basophils (%) (Auto) 1 % (0-3) Neutrophils # (Auto) 5.7 x10^3uL (1.8-7.7) Lymphocytes # (Auto) 1.4 x10^3/uL (1.0-4.8) Monocytes # (Auto) 0.6 x10^3/uL (0.0-1.1) Eosinophils # (Auto) 0.3 x10^3/uL (0.0-0.7) Basophils # (Auto) 0.0 x10^3/uL (0.0-0.2) Sodium Level 136 mmol/L (136-145) Potassium Level 4.5 mmol/L (3.5-5.1) Chloride Level 98 mmol/L (98-107) Carbon Dioxide Level 30 mmol/L (21-32) Anion Gap 8 (6-14) Blood Urea Nitrogen 65 mg/dL (7-20) Creatinine 1.4 mg/dL (0.6-1.0) Estimated GFR (Cockcroft-Gault) 36.2 Glucose Level 214 mg/dL (70-99) Calcium Level 10.1 mg/dL (8.5-10.1) Glucose (Fingerstick) 211 mg/dL (70-99) 257 mg/dL (70-99) Laboratory Tests Test 01/02/17 16:14 01/02/17 20:10 01/03/17 04:50 01/03/17 07:56 Glucose (Fingerstick) 218 mg/dL (70-99) 206 mg/dL (70-99) 211 mg/dL (70-99) White Blood Count 8.0 x10^3/uL (4.0-11.0) Red Blood Count 3.29 x10^6/uL (3.50-5.40) Hemoglobin 9.6 g/dL (12.0-15.5) Hematocrit 27.5 % (36.0-47.0) Mean Corpuscular Volume 84 fL (79-100) Mean Corpuscular Hemoglobin 29 pg (25-35) Mean Corpuscular Hemoglobin Concent 35 g/dL (31-37) Red Cell Distribution Width 16.7 % (11.5-14.5) Platelet Count 341 x10^3/uL (140-400) Neutrophils (%) (Auto) 71 % (31-73) Lymphocytes (%) (Auto) 17 % (24-48) Monocytes (%) (Auto) 8 % (0-9) Eosinophils (%) (Auto) 3 % (0-3) Basophils (%) (Auto) 1 % (0-3) Neutrophils # (Auto) 5.7 x10^3uL (1.8-7.7) Lymphocytes # (Auto) 1.4 x10^3/uL (1.0-4.8) Monocytes # (Auto) 0.6 x10^3/uL (0.0-1.1) Eosinophils # (Auto) 0.3 x10^3/uL (0.0-0.7) Basophils # (Auto) 0.0 x10^3/uL (0.0-0.2) Sodium Level 136 mmol/L (136-145) Potassium Level 4.5 mmol/L (3.5-5.1) Chloride Level 98 mmol/L (98-107) Carbon Dioxide Level 30 mmol/L (21-32) Anion Gap 8 (6-14) Blood Urea Nitrogen 65 mg/dL (7-20) Creatinine 1.4 mg/dL (0.6-1.0) Estimated GFR (Cockcroft-Gault) 36.2 Glucose Level 214 mg/dL (70-99) Calcium Level 10.1 mg/dL (8.5-10.1) Test 8/30/17 11:26 Glucose (Fingerstick) 257 mg/dL (70-99) Microbiology 12/28/16 Blood Culture - Final, Complete NO GROWTH AFTER 5 DAYS 12/28/16 Urine Culture - Final, Complete 12/28/16 Urine Culture Result 1 (SHERRIE) - Final, Complete Medications Current Medications Ceftriaxone Sodium 50 ml @ 100 mls/hr 1X ONCE IV Last administered on 15:29; Start 12/28/16 at 15:15; Stop 12/28/16 at 15:44; Status DC Insulin Aspart (NovoLOG) 0-7 UNITS TIDWMEALS SQ Last administered on 12/29/16 08:08; Start 12/28/16 at 17:00; Stop 12/29/16 at 16:00; Status DC Dextrose (Dextrose 50%-Water Syringe) 12.5 gm PRN Q15MIN PRN IV SEE COMMENTS; Start 12/28/16 at 15:30; Stop 12/29/16 at 17:02; Status DC Sodium Chloride 1,000 ml @ 1,000 mls/hr 1X ONCE IV Last administered on 15:48; Start 12/28/16 at 15:45; Stop 12/28/16 at 16:44; Status DC Ondansetron HCl (Zofran) 4 mg PRN Q8HRS PRN IV NAUSEA/VOMITING; Start 12/28/16 at 16:30; Stop 12/29/16 at 16:29; Status DC Insulin Aspart (NovoLOG) 10 units 1X ONCE SQ Last administered on 12/28/16 17 :35; Start 12/28/16 at 17:15; Stop 12/28/16 at 17:16; Status DC Insulin Aspart (NovoLOG) 10 units 1X ONCE SQ Last administered on 12/28/16 19 :24; Start 12/28/16 at 19:15; Stop 12/28/16 at 19:16; Status DC Acetaminophen (Tylenol) 500 mg PRN Q8HRS PRN PO MILD TO MODERATE PAIN Last administered on 01/02/17 16:30; Start 12/28/16 at 20:00 Amlodipine Besylate (Norvasc) 10 mg DAILY PO Last administered on 01/03/17 08: 37; Start 12/29/16 at 09:00 Aspirin (Derek Aspirin) 325 mg [id number] PO Last administered on 01/03/17 08: 38; Start 12/29/16 at 08:00 Atorvastatin Calcium (Lipitor) 40 mg HS PO Last administered on 01/02/17 20:21 ; Start 12/28/16 at 21:00 Calcium/Vitamin D (Oscal D 500mg/ 200uts) 1 tab DAILY PO Last administered on 08:38; Start 12/29/16 at 09:00 Docusate Sodium (Colace) 200 mg HS PO Last administered on 01/02/17 20:21; Start 12/28/16 at 21:00 Furosemide (Lasix) 80 mg BID92 PO Last administered on 01/03/17 08:36; Start 12/29/16 at 09:00 Acetaminophen/ Hydrocodone Bitart (Lortab 5/325) 1 tab Q12HR PRN PO PAIN Last administered on 12/31/16 21:19; Start 12/28/16 at 20:00; Stop 01/01/17 at 14:18 ; Status DC Meclizine HCl (Antivert) 12.5 mg BID PO Last administered on 01/03/17 08:34; Start 12/28/16 at 21:00 Meloxicam (Mobic) 7.5 mg DAILY PO Last administered on 12/29/16 08:45; Start 12/29/16 at 09:00; Stop 12/29/16 at 11:53; Status DC Metoprolol Tartrate (Lopressor) 25 mg BID PO Last administered on 01/03/17 08: 37; Start 12/28/16 at 21:00 Nitroglycerin (Nitrostat) 0.4 mg PRN Q5MIN PRN SL CHEST PAIN; Start 12/28/16 at 20:00 Pantoprazole Sodium (Protonix) 40 mg DAILYAC PO Last administered on 01/03/17 08:33; Start 12/29/16 at 07:30 Spironolactone (Aldactone) 25 mg DAILY PO Last administered on 01/03/17 08:34 ; Start 12/29/16 at 09:00 Warfarin Sodium (Coumadin) 4 mg QM-F PO Last administered on 01/02/17 16:30; Start 12/29/16 at 16:00 Warfarin Sodium (Coumadin) 4 mg QSA PO Last administered on 12/30/16 17:02; Start 12/30/16 at 16:00 Isosorbide Mononitrate (Imdur) 60 mg DAILY PO Last administered on 01/03/17 08 :36; Start 12/29/16 at 09:00 Losartan Potassium (Cozaar) 50 mg DAILY PO Last administered on 01/03/17 08:35 ; Start 12/29/16 at 09:00 Levofloxacin (Levaquin) 250 mg DAILY06 PO Last administered on 12/29/16 06:30 ; Start 12/29/16 at 06:00; Stop 12/29/16 at 09:49; Status DC Warfarin Sodium (Coumadin Per Pharmacy) 1 each PRN DAILY PRN MC SEE COMMENTS Last administered on 01/03/17 13:07; Start 12/28/16 at 20:45 Warfarin Sodium (Coumadin) 4 mg 1X WARF ONCE PO Last administered on 22:33; Start 12/28/16 at 21:29; Stop 12/28/16 at 21:30; Status DC Insulin Aspart (NovoLOG) 5 units 1X ONCE SQ Last administered on 12/29/16 08: 51; Start 12/29/16 at 08:30; Stop 12/29/16 at 08:31; Status DC Insulin Human Regular (NovoLIN R VIAL) 10 unit 1X ONCE IV Last administered on 12/29/16 12:18; Start 12/29/16 at 12:15; Stop 12/29/16 at 12:16; Status DC Sodium Chloride 1,000 ml @ 75 mls/hr [id number] IV Last administered on 00:25; Start 12/29/16 at 12:00; Stop 12/31/16 at 13:45; Status DC Lidocaine (Lidoderm) 1 patch PRN DAILY PRN TD PAIN Last administered on 10:26; Start 12/29/16 at 13:30 Insulin Detemir (Levemir) 20 units QHS SQ Last administered on 12/31/16 21:29 ; Start 12/29/16 at 21:00; Stop 01/01/17 at 12:24; Status DC Insulin Aspart (NovoLOG) 6 units TIDAC SQ Last administered on 01/01/17 12:12 ; Start 12/29/16 at 16:30; Stop 01/01/17 at 12:24; Status DC Insulin Aspart (NovoLOG) 0-9 UNITS QIDACHS SQ Last administered on 01/03/17 12 :27; Start 12/29/16 at 16:30 Dextrose (Dextrose 50%-Water Syringe) 12.5 gm PRN Q15MIN PRN IV SEE COMMENTS; Start 12/29/16 at 16:00 Insulin Aspart (NovoLOG) 20 units 1X ONCE SQ Last administered on 12/29/16 17 :32; Start 12/29/16 at 17:00; Stop 12/29/16 at 17:02; Status DC Insulin Aspart (NovoLOG) 15 units 1X ONCE SQ Last administered on 12/29/16 20 :58; Start 12/29/16 at 21:00; Stop 12/29/16 at 21:01; Status DC Insulin Aspart (NovoLOG) 15 units 1X ONCE SQ Last administered on 12/30/16 21 :50; Start 12/30/16 at 21:30; Stop 12/30/16 at 21:32; Status DC Polyethylene Glycol (miraLAX PACKET) 17 gm DAILY PO Last administered on 08:37; Start 12/31/16 at 15:00 Bisacodyl (Dulcolax Tab) 10 mg PRN DAILY PRN PO CONSTIPATION Last administered on 12/31/16 17:07; Start 12/31/16 at 14:45 Insulin Aspart (NovoLOG) 10 units TIDAC SQ ; Start 01/01/17 at 16:30; Stop 01/01 at 16:30; Status DC Insulin Detemir (Levemir) 28 units QHS SQ ; Start 01/01/17 at 21:00; Stop at 21:00; Status DC Bisacodyl (Dulcolax Supp) 10 mg PRN DAILY PRN DC CONSTIPATION Last administered on 01/01/17 13:09; Start 01/01/17 at 12:45 Sodium Monofluorophosphate (Fleet Adult) 133 ml PRN DAILY PRN DC CONSTIPATION; Start 01/01/17 at 12:45 Insulin Aspart (NovoLOG) 9 units TIDAC SQ Last administered on 01/02/17 16:38 ; Start 01/01/17 at 16:30; Stop 01/03/17 at 08:03; Status DC Insulin Detemir (Levemir) 25 units QHS SQ Last administered on 01/02/17 20:29 ; Start 01/01/17 at 21:00; Stop 01/03/17 at 08:03; Status DC Acetaminophen/ Hydrocodone Bitart (Lortab 5/325) 1 tab PRN Q12HR PRN PO MODERATE TO SEVER PAIN Last administered on 01/03/17 10:27; Start 01/01/17 at 14:30 Insulin Aspart (NovoLOG) 15 units 1X ONCE SQ Last administered on 01/01/17 21 :27; Start 01/01/17 at 21:30; Stop 01/01/17 at 21:31; Status DC Insulin Aspart (NovoLOG) 10 units TIDAC SQ ; Start 01/03/17 at 11:30; Stop 01/03 at 11:30; Status DC Insulin Detemir (Levemir) 27 units QHS SQ ; Start 01/03/17 at 21:00 Insulin Aspart (NovoLOG) 10 units TIDAC SQ Last administered on 01/03/17 12:27 ; Start 01/03/17 at 08:30 Active Scripts Active Reported Levaquin (Levofloxacin) 500 Mg Tablet 250 Mg PO DAILY for 14 days order started 12/22/16 Coumadin (Warfarin Sodium) 4 Mg Tablet 1 Tab PO QSA Coumadin (Warfarin Sodium) 4 Mg Tablet 1 Tab PO QM-F fr Mon til Sat Aspirin 325 Mg Tablet 1 Tab PO DAILY Calcium 500 + Vit D 200 Tablet (Calcium Carbonate/Vitamin D3) 1 Each Tablet 1 Each PO DAILY TAKE NEXT DOSE TOMORROW 11/14 IN AM Novolog Flexpen (Insulin Aspart) 100 Unit/1 Ml Insuln.pen 1 Unit SQ 150-200= 4 units 201-250= 7 units 251-300= 10 units 301-350= 13 units 351-400= 16 units 401-450= 18 units 451-500= 20 units 501-550= 22 units notify if bg < 110 NITROGLYCERIN SubLingual (Nitroglycerin) 0.4 Mg Tab.subl 0.4 Mg SL PRN Q5MIN PRN Protonix (Pantoprazole Sodium) 40 Mg Tablet.dr 1 Tab PO DAILY TAKE NEXT DOSE TOMORROW 11/14 IN AM Metoprolol Tartrate 25 Mg Tablet 1 Tab PO BID TAKE NEXT DOSE TONIGHT 11/13 AT BEDTIME Acetaminophen 500 Mg Tablet 500 Mg PO PRN Q8HRS PRN Potassium Chloride 10 Meq Capsule.er 10 Meq PO DAILY Meloxicam 7.5 Mg Tablet 1 Tab PO DAILY TAKE NEXT DOSE TOMORROW 11/14 IN AM Meclizine Hcl 12.5 Mg Tablet 1 Tab PO BID TAKE NEXT DOSE TONIGHT 07 AT BEDTIME Hydrocodone-Apap 5-325 (Hydrocodone Bit/Acetaminophen) 1 Each Tablet 1 Tab PO Q12HR PRN Spironolactone 25 Mg Tablet 25 Mg PO DAILY TAKE NEXT DOSE TOMORROW 11/14 IN AM Furosemide 80 Mg Tablet 80 Mg PO BID TAKE NEXT DOSE TOMORROW 11/14 IN AM Stool Softener (Docusate Sodium) 100 Mg Capsule 200 Mg PO HS TAKE NEXT DOSE TONIGHT 07 AT BEDTIME Amlodipine Besylate 10 Mg Tablet 10 Mg PO DAILY TAKE NEXT DOSE TOMORROW 11/14 IN AM hold if sbp less than 100 Losartan Potassium 100 Mg Tablet 50 Mg PO DAILY TAKE NEXT DOSE TOMORROW 11/14 IN AM Atorvastatin Calcium 40 Mg Tablet 40 Mg PO HS TAKE NEXT DOSE TONIGHT 11/13 AT BEDTIME Isosorbide Mononitrate Er (Isosorbide Mononitrate) 60 Mg Tab.er.24h 60 Mg PO DAILY TAKE NEXT DOSE TOMORROW 11/14 IN AM Vitals/I & O Vital Sign - Last 24 Hours 01/02/17 01/02/17 01/02/17 01/02/17 15:00 19:15 19:50 20:01 Temp 97.5 97.9 97.9 97.5 97.9 97.9 Pulse 55 57 57 Resp 18 14 14 B/P (MAP) 113/42 (65) 131/39 (69) 131/39 (69) Pulse Ox 99 98 98 O2 Delivery Room Air Room Air Room Air Room Air 01/02/17 01/02/17 01/03/17 01/03/17 20:22 23:03 07:00 08:00 Temp 97.7 98.1 97.7 98.1 Pulse 57 60 64 Resp 16 18 B/P (MAP) 131/39 136/40 (72) 153/47 (82) Pulse Ox 95 96 O2 Delivery Room Air Room Air Room Air 01/03/17 01/03/17 01/03/17 01/03/17 08:35 08:36 08:37 08:37 Pulse 64 64 64 64 B/P (MAP) 153/47 153/47 153/47 153/47 01/03/17 01/03/17 01/03/17 10:27 11:00 11:27 Temp 97.7 97.7 Pulse 18 Resp 20 18 20 B/P (MAP) 138/48 (78) Pulse Ox 95 97 95 O2 Delivery Room Air Room Air Room Air ALHAJI TONG MD Jan 03, 2017 13:16
[2017-01-03 14:09] VITALS: BP 120/43
--- NOTE | 2017-01-03 15:46 | PDOC ---
SUBJECTIVE ROS CKD III doing OK overall OBJECTIVE Vital Signs Vital Signs Date Time Temp Pulse Resp B/P (MAP) Pulse Ox O2 Delivery O2 Flow Rate FiO2 01/03/17 14:09 97.5 56 20 120/43 (68) 99 Room Air 97.5 01/02/17 08:00 97.0 PHYSICAL EXAM Physical Exam General Appearance: Awake: Alert Oriented x 2 Neck: No JVD or JVP Chest: CTA [place]: S1 S2 Abdomen - Soft NTND Extremities - No Edema DIAGNOSIS/ASSESSMENT Assessment & Plan CKD III - stable/ little better creat HTN with CKD - stable on +nt meds COMMENT/RELEVANT DATA Meds Current Medications Medications (Trade) Dose Ordered Sig/Huyen Start Time Stop Time Status Last Admin Dose Admin Acetaminophen (Tylenol) 500 mg PRN Q8HRS PRN 12/28/16 20:00 01/02/17 16:30 500 MG Acetaminophen/ Hydrocodone Bitart (Lortab 5/325) 1 tab PRN Q12HR PRN 01/01/17 14:30 01/03/17 10:27 1 TAB Amlodipine Besylate (Norvasc) 10 mg DAILY 12/29/16 09:00 01/03/17 08:37 10 MG Aspirin (Derek Aspirin) 325 mg [id number] 12/29/16 08:00 01/03/17 08:38 325 MG Atorvastatin Calcium (Lipitor) 40 mg HS 12/28/16 21:00 01/02/17 20:21 40 MG Bisacodyl (Dulcolax Supp) 10 mg PRN DAILY PRN 01/01/17 12:45 01/01/17 13:09 10 MG Bisacodyl (Dulcolax Tab) 10 mg PRN DAILY PRN 12/31/16 14:45 12/31/16 17:07 10 MG Calcium/Vitamin D (Oscal D 500mg/ 200uts) 1 tab DAILY 12/29/16 09:00 01/03/17 08:38 1 TAB Ceftriaxone Sodium 50 ml @ 100 mls/hr 1X ONCE 12/28/16 15:15 12/28/16 15:44 DC 12/28/16 15:29 100 MLS/HR Dextrose (Dextrose 50%-Water Syringe) 12.5 gm PRN Q15MIN PRN 12/29/16 16:00 Docusate Sodium (Colace) 200 mg HS 12/28/16 21:00 01/02/17 20:21 200 MG Furosemide (Lasix) 80 mg [id number] 12/29/16 09:00 01/03/17 13:46 80 MG Insulin Aspart (NovoLOG) 10 units TIDAC 01/03/17 08:30 01/03/17 12:27 10 UNITS Insulin Detemir (Levemir) 27 units QHS 01/03/17 21:00 Insulin Human Regular (NovoLIN R VIAL) 10 unit 1X ONCE 12/29/16 12:15 12/29/16 12:16 DC 12/29/16 12:18 10 UNIT Isosorbide Mononitrate (Imdur) 60 mg DAILY 12/29/16 09:00 01/03/17 08:36 60 MG Levofloxacin (Levaquin) 250 mg DAILY06 12/29/16 06:00 12/29/16 09:49 DC 12/29/16 06:30 250 MG Lidocaine (Lidoderm) 1 patch PRN DAILY PRN 12/29/16 13:30 01/03/17 10:26 1 PATCH Losartan Potassium (Cozaar) 50 mg DAILY 12/29/16 09:00 01/03/17 08:35 50 MG Meclizine HCl (Antivert) 12.5 mg BID 12/28/16 21:00 01/03/17 08:34 12.5 MG Meloxicam (Mobic) 7.5 mg DAILY 12/29/16 09:00 12/29/16 11:53 DC 12/29/16 08:45 7.5 MG Metoprolol Tartrate (Lopressor) 25 mg BID 12/28/16 21:00 01/03/17 08:37 25 MG Nitroglycerin (Nitrostat) 0.4 mg PRN Q5MIN PRN 12/28/16 20:00 Ondansetron HCl (Zofran) 4 mg PRN Q8HRS PRN 12/28/16 16:30 12/29/16 16:29 DC Pantoprazole Sodium (Protonix) 40 mg DAILYAC 12/29/16 07:30 01/03/17 08:33 40 MG Polyethylene Glycol (miraLAX PACKET) 17 gm DAILY 12/31/16 15:00 01/03/17 08:37 17 GM Sodium Monofluorophosphate (Fleet Adult) 133 ml PRN DAILY PRN 01/01/17 12:45 Sodium Chloride 1,000 ml @ 75 mls/hr [id number] 12/29/16 12:00 12/31/16 13:45 DC 12/31/16 00:25 75 MLS/HR Spironolactone (Aldactone) 25 mg DAILY 12/29/16 09:00 01/03/17 08:34 25 MG Warfarin Sodium (Coumadin Per Pharmacy) 1 each PRN DAILY PRN 12/28/16 20:45 01/03/17 13:07 1 EACH Warfarin Sodium (Coumadin) 4 mg 1X WARF ONCE 12/28/16 21:29 12/28/16 21:30 DC 12/28/16 22:33 4 MG Lab Laboratory Tests Test 01/02/17 16:14 01/02/17 20:10 01/03/17 04:50 01/03/17 07:56 Glucose (Fingerstick) 218 mg/dL (70-99) 206 mg/dL (70-99) 211 mg/dL (70-99) White Blood Count 8.0 x10^3/uL (4.0-11.0) Red Blood Count 3.29 x10^6/uL (3.50-5.40) Hemoglobin 9.6 g/dL (12.0-15.5) Hematocrit 27.5 % (36.0-47.0) Mean Corpuscular Volume 84 fL (79-100) Mean Corpuscular Hemoglobin 29 pg (25-35) Mean Corpuscular Hemoglobin Concent 35 g/dL (31-37) Red Cell Distribution Width 16.7 % (11.5-14.5) Platelet Count 341 x10^3/uL (140-400) Neutrophils (%) (Auto) 71 % (31-73) Lymphocytes (%) (Auto) 17 % (24-48) Monocytes (%) (Auto) 8 % (0-9) Eosinophils (%) (Auto) 3 % (0-3) Basophils (%) (Auto) 1 % (0-3) Neutrophils # (Auto) 5.7 x10^3uL (1.8-7.7) Lymphocytes # (Auto) 1.4 x10^3/uL (1.0-4.8) Monocytes # (Auto) 0.6 x10^3/uL (0.0-1.1) Eosinophils # (Auto) 0.3 x10^3/uL (0.0-0.7) Basophils # (Auto) 0.0 x10^3/uL (0.0-0.2) Sodium Level 136 mmol/L (136-145) Potassium Level 4.5 mmol/L (3.5-5.1) Chloride Level 98 mmol/L (98-107) Carbon Dioxide Level 30 mmol/L (21-32) Anion Gap 8 (6-14) Blood Urea Nitrogen 65 mg/dL (7-20) Creatinine 1.4 mg/dL (0.6-1.0) Estimated GFR (Cockcroft-Gault) 36.2 Glucose Level 214 mg/dL (70-99) Calcium Level 10.1 mg/dL (8.5-10.1) Test 01/03/17 11:26 Glucose (Fingerstick) 257 mg/dL (70-99) JULIO C BARRIOS MD Jan 03, 2017 15:46
[2017-01-03] MEDS: WARFARIN 4 MG TABLET. PO SCH (17:06)
[2017-01-03 19:00] VITALS: BP 124/40
[2017-01-03] MEDS ORDERED: INSULIN DETEMIR 300 UNITS/3 ML INSULN.PEN. SQ SCH (21:00)
[2017-01-03] MEDS: ATORVASTATIN CALCIUM 40 MG TABLET. PO SCH (21:34)
[2017-01-03] MEDS: DOCUSATE SODIUM 100 MG CAPSULE. PO SCH (21:34)
[2017-01-03 23:00] VITALS: BP 129/35
[2017-01-04 05:53] LABS: BASO # 0.1 x10^3/uL (0.0-0.2); BASO % 1 % (0-3); EOS % 3 % (0-3); HEMATOCRIT 27.2 % (36.0-47.0); HEMOGLOBIN 9.4 g/dL (12.0-15.5); LYMPH # 1.7 x10^3/uL (1.0-4.8); LYMPH % 22 % (24-48); MEAN CORPUSCULAR HEMOGLOBIN 29 pg (25-35); MEAN CORPUSCULAR HGB CONC 35 g/dL (31-37); MEAN CORPUSCULAR VOLUME 84 fL (79-100); MONO % 8 % (0-9); NEUT % 67 % (31-73); PLATELET COUNT 373 x10^3/uL (140-400); RED BLOOD COUNT 3.22 x10^6/uL (3.50-5.40); RED CELL DISTRIBUTION WIDTH 16.7 % (11.5-14.5); WHITE BLOOD COUNT 7.6 x10^3/uL (4.0-11.0)
[2017-01-04 06:01] LABS: INR 2.2 (0.8-1.1); PROTHROMBIN TIME PATIENT 23.2 SEC (11.7-14.0)
[2017-01-04 06:06] LABS: CREATININE 1.4 mg/dL (0.6-1.0); GFR 36.2; POTASSIUM 4.7 mmol/L (3.5-5.1)
[2017-01-04 07:00] VITALS: BP 91/55
[2017-01-04] MEDS: PANTOPRAZOLE 40 MG TABLET.DR. PO SCH (08:49)
[2017-01-04] MEDS: ASPIRIN 325 MG TABLET PO SCH (08:49)
[2017-01-04] MEDS: MECLIZINE HCL 12.5 MG TABLET. PO SCH (08:50)
[2017-01-04] MEDS: POLYETHYLENE GLYCOL 3350 17 GM PACKET. PO SCH (08:51)
[2017-01-04] MEDS: CALCIUM CARB/VIT D3 500/200 TABLET. PO SCH (08:51)
[2017-01-04] MEDS: INSULIN ASPART 300 UNITS/3 ML INSULN.PEN SQ SCH ×4 (08:58→12:35)
--- NOTE | 2017-01-04 09:49 | PDOC ---
Subjective: Subjective: Says Dr. Cast told her she might go home today. Tailbone pain (w/ recent fall). Stooling normally. Objective: Vital Signs: Vital Signs Date Time Temp Pulse Resp B/P (MAP) Pulse Ox O2 Delivery O2 Flow Rate FiO2 01/04/17 07:00 96.4 57 18 91/55 (67) 99 Room Air 96.4 Labs: Laboratory Tests Test 01/03/17 11:26 01/03/17 16:34 01/03/17 18:04 01/03/17 21:45 Glucose (Fingerstick) 257 mg/dL 114 mg/dL 136 mg/dL 158 mg/dL Test 01/04/17 05:05 01/04/17 07:50 White Blood Count 7.6 x10^3/uL Red Blood Count 3.22 x10^6/uL Hemoglobin 9.4 g/dL Hematocrit 27.2 % Mean Corpuscular Volume 84 fL Mean Corpuscular Hemoglobin 29 pg Mean Corpuscular Hemoglobin Concent 35 g/dL Red Cell Distribution Width 16.7 % Platelet Count 373 x10^3/uL Neutrophils (%) (Auto) 67 % Lymphocytes (%) (Auto) 22 % Monocytes (%) (Auto) 8 % Eosinophils (%) (Auto) 3 % Basophils (%) (Auto) 1 % Neutrophils # (Auto) 5.1 x10^3uL Lymphocytes # (Auto) 1.7 x10^3/uL Monocytes # (Auto) 0.6 x10^3/uL Eosinophils # (Auto) 0.2 x10^3/uL Basophils # (Auto) 0.1 x10^3/uL Prothrombin Time 23.2 SEC Prothromb Time International Ratio 2.2 Sodium Level 133 mmol/L Potassium Level 4.7 mmol/L Chloride Level 97 mmol/L Carbon Dioxide Level 31 mmol/L Anion Gap 5 Blood Urea Nitrogen 69 mg/dL Creatinine 1.4 mg/dL Estimated GFR (Cockcroft-Gault) 36.2 Glucose Level 228 mg/dL Calcium Level 10.0 mg/dL Glucose (Fingerstick) 166 mg/dL PE: GEN: NAD, up to chair LUNGS: clear HEART: S1S2 ABD: S/ND/NT NEURO/PSYCH: A & O 3 A/P: IDDM, CKD, CAD, h/o endocarditis, h/o DVT Abnormal imaging of pancreas -abd MRI: pancreatic atrophy, innumerable cysts scattered throughout the pancreas (from 2mm to 1.2cm) ---> no further workup recommended Constipation - resolved -has Miralax and Colace QD along w/ Dulcolax tabs/supp PRN -no previous colonoscopy -additional h/o anemia (chronic disease), also GERD on PPI (previous EGD by Dr. Mansfield) -- Continue PPI and Miralax. DC per primary, follow-up w/ GI PRN. PAYAM ELLER Jan 04, 2017 09:49
[2017-01-04 09:54] VITALS: BP 126/45
[2017-01-04] MEDS: SPIRONOLACTONE 25 MG TABLET PO SCH (09:55)
[2017-01-04] MEDS: LOSARTAN POTASSIUM 50 MG TABLET. PO SCH (09:56)
[2017-01-04] MEDS: METOPROLOL TART IMMED RELEASE 25 MG TABLET. PO SCH (09:57)
[2017-01-04] MEDS: ISOSORBIDE MONONITRATE ER 30 MG TAB.ER.24H PO SCH (09:57)
[2017-01-04] MEDS: FUROSEMIDE 80 MG TABLET. PO SCH (09:57)
[2017-01-04] MEDS: amLODIPine BESYLATE 10 MG TABLET PO SCH (09:58)
[2017-01-04] MEDS: HYDROcodone/APAP 5/325MG 1 TAB TABLET PO PRN (09:59)
[2017-01-04] MEDS: LIDOCAINE (700MG/PATCH) PATCH. TD PRN (10:00)
--- NOTE | 2017-01-04 10:02 | PDOC ---
SUBJECTIVE ROS CKD III Feeling good this am CVS: no Orthopnea, no CP RESP: no SOB, no CHANCE GI: no Nausea, no Vomiting : no Dysuria, no Urgency OBJECTIVE Vital Signs Vital Signs Date Time Temp Pulse Resp B/P (MAP) Pulse Ox O2 Delivery O2 Flow Rate FiO2 01/04/17 07:00 96.4 57 18 91/55 (67) 99 Room Air 96.4 PHYSICAL EXAM Physical Exam GEN: Awake, Oriented x 3, In no distress EYES: Vision Unchanged, Conjunctiva Normal EN: No EN Drainage, Mucous Membranes moist NECK: no JVD, no JVP, Supple, no Thyromegaly CVS: S1S2, + Murmur, No Gallop, No Rub,no Edema RESP: no Rales, no Rhonchi,no Acc. Muscle Use GI: BS + ve, NO Bruit, Non Tender, Non Distended : no CVA tenderness, no Suprapubic Tenderness DIAGNOSIS/ASSESSMENT Assessment & Plan CKD III - Current fluid and E-lyte status does not necessitate emergent need for dialysis. Creat is stable for now ^ed BUN/Creat ratio - Given Improved EF on ECHo - I will decrease Lasix ANEMIA; Check [place]; Aranap as ordered, Transfuse as needed Uncontrolled DM - defer to Primary team - may be contributing to some dehydrationt oo HypoTN: reval after dec Lasix Discussed Plan of Care with Dr Mukherjee (re ABN ECHO) and pt at bedside Problems: COMMENT/RELEVANT DATA Meds Current Medications Medications (Trade) Dose Ordered Sig/Huyen Start Time Stop Time Status Last Admin Dose Admin Acetaminophen (Tylenol) 500 mg PRN Q8HRS PRN 12/28/16 20:00 01/02/17 16:30 500 MG Acetaminophen/ Hydrocodone Bitart (Lortab 5/325) 1 tab PRN Q12HR PRN 01/01/17 14:30 01/03/17 21:47 1 TAB Amlodipine Besylate (Norvasc) 10 mg DAILY 12/29/16 09:00 01/03/17 08:37 10 MG Aspirin (Derek Aspirin) 325 mg [id number] 12/29/16 08:00 01/04/17 08:49 325 MG Atorvastatin Calcium (Lipitor) 40 mg HS 12/28/16 21:00 01/03/17 21:34 40 MG Bisacodyl (Dulcolax Supp) 10 mg PRN DAILY PRN 01/01/17 12:45 01/01/17 13:09 10 MG Bisacodyl (Dulcolax Tab) 10 mg PRN DAILY PRN 12/31/16 14:45 12/31/16 17:07 10 MG Calcium/Vitamin D (Oscal D 500mg/ 200uts) 1 tab DAILY 12/29/16 09:00 01/04/17 08:51 1 TAB Ceftriaxone Sodium 50 ml @ 100 mls/hr 1X ONCE 12/28/16 15:15 12/28/16 15:44 DC 12/28/16 15:29 100 MLS/HR Dextrose (Dextrose 50%-Water Syringe) 12.5 gm PRN Q15MIN PRN 12/29/16 16:00 Docusate Sodium (Colace) 200 mg HS 12/28/16 21:00 01/03/17 21:34 200 MG Furosemide (Lasix) 80 mg [id number] 12/29/16 09:00 01/03/17 13:46 80 MG Insulin Aspart (NovoLOG) 10 units TIDAC 01/03/17 08:30 01/04/17 08:58 10 UNITS Insulin Detemir (Levemir) 27 units QHS 01/03/17 21:00 01/03/17 21:50 27 UNITS Insulin Human Regular (NovoLIN R VIAL) 10 unit 1X ONCE 12/29/16 12:15 12/29/16 12:16 DC 12/29/16 12:18 10 UNIT Isosorbide Mononitrate (Imdur) 60 mg DAILY 12/29/16 09:00 01/03/17 08:36 60 MG Levofloxacin (Levaquin) 250 mg DAILY06 12/29/16 06:00 12/29/16 09:49 DC 12/29/16 06:30 250 MG Lidocaine (Lidoderm) 1 patch PRN DAILY PRN 12/29/16 13:30 01/03/17 10:26 1 PATCH Losartan Potassium (Cozaar) 50 mg DAILY 12/29/16 09:00 01/03/17 08:35 50 MG Meclizine HCl (Antivert) 12.5 mg BID 12/28/16 21:00 01/04/17 08:50 12.5 MG Meloxicam (Mobic) 7.5 mg DAILY 12/29/16 09:00 12/29/16 11:53 DC 12/29/16 08:45 7.5 MG Metoprolol Tartrate (Lopressor) 25 mg BID 12/28/16 21:00 01/03/17 21:35 25 MG Nitroglycerin (Nitrostat) 0.4 mg PRN Q5MIN PRN 12/28/16 20:00 Ondansetron HCl (Zofran) 4 mg PRN Q8HRS PRN 12/28/16 16:30 12/29/16 16:29 DC Pantoprazole Sodium (Protonix) 40 mg DAILYAC 12/29/16 07:30 01/04/17 08:49 40 MG Polyethylene Glycol (miraLAX PACKET) 17 gm DAILY 12/31/16 15:00 01/04/17 08:51 17 GM Sodium Monofluorophosphate (Fleet Adult) 133 ml PRN DAILY PRN 01/01/17 12:45 Sodium Chloride 1,000 ml @ 75 mls/hr [id number] 12/29/16 12:00 12/31/16 13:45 DC 12/31/16 00:25 75 MLS/HR Spironolactone (Aldactone) 25 mg DAILY 12/29/16 09:00 01/03/17 08:34 25 MG Warfarin Sodium (Coumadin Per Pharmacy) 1 each PRN DAILY PRN 12/28/16 20:45 01/03/17 13:07 1 EACH Warfarin Sodium (Coumadin) 4 mg 1X WARF ONCE 12/28/16 21:29 12/28/16 21:30 DC 12/28/16 22:33 4 MG Lab Laboratory Tests Test 01/03/17 11:26 01/03/17 16:34 01/03/17 18:04 01/03/17 21:45 Glucose (Fingerstick) 257 mg/dL (70-99) 114 mg/dL (70-99) 136 mg/dL (70-99) 158 mg/dL (70-99) Test 01/04/17 05:05 01/04/17 07:50 White Blood Count 7.6 x10^3/uL (4.0-11.0) Red Blood Count 3.22 x10^6/uL (3.50-5.40) Hemoglobin 9.4 g/dL (12.0-15.5) Hematocrit 27.2 % (36.0-47.0) Mean Corpuscular Volume 84 fL (79-100) Mean Corpuscular Hemoglobin 29 pg (25-35) Mean Corpuscular Hemoglobin Concent 35 g/dL (31-37) Red Cell Distribution Width 16.7 % (11.5-14.5) Platelet Count 373 x10^3/uL (140-400) Neutrophils (%) (Auto) 67 % (31-73) Lymphocytes (%) (Auto) 22 % (24-48) Monocytes (%) (Auto) 8 % (0-9) Eosinophils (%) (Auto) 3 % (0-3) Basophils (%) (Auto) 1 % (0-3) Neutrophils # (Auto) 5.1 x10^3uL (1.8-7.7) Lymphocytes # (Auto) 1.7 x10^3/uL (1.0-4.8) Monocytes # (Auto) 0.6 x10^3/uL (0.0-1.1) Eosinophils # (Auto) 0.2 x10^3/uL (0.0-0.7) Basophils # (Auto) 0.1 x10^3/uL (0.0-0.2) Prothrombin Time 23.2 SEC (11.7-14.0) Prothromb Time International Ratio 2.2 (0.8-1.1) Sodium Level 133 mmol/L (136-145) Potassium Level 4.7 mmol/L (3.5-5.1) Chloride Level 97 mmol/L (98-107) Carbon Dioxide Level 31 mmol/L (21-32) Anion Gap 5 (6-14) Blood Urea Nitrogen 69 mg/dL (7-20) Creatinine 1.4 mg/dL (0.6-1.0) Estimated GFR (Cockcroft-Gault) 36.2 Glucose Level 228 mg/dL (70-99) Calcium Level 10.0 mg/dL (8.5-10.1) Glucose (Fingerstick) 166 mg/dL (70-99) JULIO C BARRIOS MD Jan 04, 2017 10:02
[2017-01-04 10:31] LABS: % SAT IRON 14 % (15-34); IRON,SERUM 42 ug/dL (50-170)
[2017-01-04 11:00] VITALS: BP 154/45
[2017-01-04] MEDS ORDERED: IRON SUCROSE COMPLEX 200 MG in IV NORMAL SALINE 100ML 100 ML IV ONE (11:00)
[2017-01-04] MEDS ORDERED: BISA-42 PO (11:46)
[2017-01-04] MEDS ORDERED: BISA10SU55 RC (11:47)
[2017-01-04] MEDS ORDERED: INSU100I17 SQ (11:48)
[2017-01-04] MEDS ORDERED: INSU100V13 SQ (11:49)
[2017-01-04] MEDS ORDERED: POLY17PO29 PO (11:49)
[2017-01-04] MEDS ORDERED: FURO40TA4 PO (11:53)
--- NOTE | 2017-01-04 13:25 | PDOC3 ---
Discharge Summary Visit Information Date of Admission: Dec 28, 2016 Date of Discharge: Jan 04, 2017 Final Diagnosis uncontrolled DM2, A1c 11.2 hyponatremia GRACIELA on ckd3, vasomotor no UTI h/o endocarditis h/o CAD with pci stable systolic CHF ef 40% H/O BCa htn gerd from assisted living facility h/o DVT on warfarin abd pain, with pancreatic cysts, chronic cyst iron deficiency without significant anemia Problems Medical Problems: (1) UTI (urinary tract infection) Status: Acute Brief Hospital Course Allergies Allergies Coded Allergies Type Severity Reaction Last Updated Verified Iodinated Contrast- Oral and IV Dye Allergy Severe Anaphylaxis 03/18/16 Yes adhesive tape Allergy Intermediate 03/19/16 Yes meperidine Adverse Reaction Intermediate Vomiting 04/19/16 Yes Vital Signs Vital Signs Date Time Temp Pulse Resp B/P (MAP) Pulse Ox O2 Delivery O2 Flow Rate FiO2 01/04/17 11:00 98.8 56 16 154/45 (81) 97 Room Air 98.8 Lab Results Laboratory Tests Test 01/02/17 16:14 01/02/17 20:10 01/03/17 04:50 01/03/17 07:56 Glucose (Fingerstick) 218 mg/dL (70-99) 206 mg/dL (70-99) 211 mg/dL (70-99) White Blood Count 8.0 x10^3/uL (4.0-11.0) Red Blood Count 3.29 x10^6/uL (3.50-5.40) Hemoglobin 9.6 g/dL (12.0-15.5) Hematocrit 27.5 % (36.0-47.0) Mean Corpuscular Volume 84 fL (79-100) Mean Corpuscular Hemoglobin 29 pg (25-35) Mean Corpuscular Hemoglobin Concent 35 g/dL (31-37) Red Cell Distribution Width 16.7 % (11.5-14.5) Platelet Count 341 x10^3/uL (140-400) Neutrophils (%) (Auto) 71 % (31-73) Lymphocytes (%) (Auto) 17 % (24-48) Monocytes (%) (Auto) 8 % (0-9) Eosinophils (%) (Auto) 3 % (0-3) Basophils (%) (Auto) 1 % (0-3) Neutrophils # (Auto) 5.7 x10^3uL (1.8-7.7) Lymphocytes # (Auto) 1.4 x10^3/uL (1.0-4.8) Monocytes # (Auto) 0.6 x10^3/uL (0.0-1.1) Eosinophils # (Auto) 0.3 x10^3/uL (0.0-0.7) Basophils # (Auto) 0.0 x10^3/uL (0.0-0.2) Sodium Level 136 mmol/L (136-145) Potassium Level 4.5 mmol/L (3.5-5.1) Chloride Level 98 mmol/L (98-107) Carbon Dioxide Level 30 mmol/L (21-32) Anion Gap 8 (6-14) Blood Urea Nitrogen 65 mg/dL (7-20) Creatinine 1.4 mg/dL (0.6-1.0) Estimated GFR (Cockcroft-Gault) 36.2 Glucose Level 214 mg/dL (70-99) Calcium Level 10.1 mg/dL (8.5-10.1) Test 01/03/17 11:26 01/03/17 16:34 01/03/17 18:04 01/03/17 21:45 Glucose (Fingerstick) 257 mg/dL (70-99) 114 mg/dL (70-99) 136 mg/dL (70-99) 158 mg/dL (70-99) Test 01/04/17 05:05 01/04/17 07:50 01/04/17 11:13 White Blood Count 7.6 x10^3/uL (4.0-11.0) Red Blood Count 3.22 x10^6/uL (3.50-5.40) Hemoglobin 9.4 g/dL (12.0-15.5) Hematocrit 27.2 % (36.0-47.0) Mean Corpuscular Volume 84 fL (79-100) Mean Corpuscular Hemoglobin 29 pg (25-35) Mean Corpuscular Hemoglobin Concent 35 g/dL (31-37) Red Cell Distribution Width 16.7 % (11.5-14.5) Platelet Count 373 x10^3/uL (140-400) Neutrophils (%) (Auto) 67 % (31-73) Lymphocytes (%) (Auto) 22 % (24-48) Monocytes (%) (Auto) 8 % (0-9) Eosinophils (%) (Auto) 3 % (0-3) Basophils (%) (Auto) 1 % (0-3) Neutrophils # (Auto) 5.1 x10^3uL (1.8-7.7) Lymphocytes # (Auto) 1.7 x10^3/uL (1.0-4.8) Monocytes # (Auto) 0.6 x10^3/uL (0.0-1.1) Eosinophils # (Auto) 0.2 x10^3/uL (0.0-0.7) Basophils # (Auto) 0.1 x10^3/uL (0.0-0.2) Reticulocyte Count (auto) 1.3 % (0.5-2.5) Prothrombin Time 23.2 SEC (11.7-14.0) Prothromb Time International Ratio 2.2 (0.8-1.1) Sodium Level 133 mmol/L (136-145) Potassium Level 4.7 mmol/L (3.5-5.1) Chloride Level 97 mmol/L (98-107) Carbon Dioxide Level 31 mmol/L (21-32) Anion Gap 5 (6-14) Blood Urea Nitrogen 69 mg/dL (7-20) Creatinine 1.4 mg/dL (0.6-1.0) Estimated GFR (Cockcroft-Gault) 36.2 Glucose Level 228 mg/dL (70-99) Calcium Level 10.0 mg/dL (8.5-10.1) Iron Level 42 ug/dL (50-170) Total Iron Binding Capacity 308 ug/dL (250-450) Iron Saturation 14 % (15-34) Ferritin 86 ng/mL (8-252) Glucose (Fingerstick) 166 mg/dL (70-99) 221 mg/dL (70-99) Laboratory Tests Test 01/03/17 16:34 01/03/17 18:04 01/03/17 21:45 01/04/17 05:05 Glucose (Fingerstick) 114 mg/dL (70-99) 136 mg/dL (70-99) 158 mg/dL (70-99) White Blood Count 7.6 x10^3/uL (4.0-11.0) Red Blood Count 3.22 x10^6/uL (3.50-5.40) Hemoglobin 9.4 g/dL (12.0-15.5) Hematocrit 27.2 % (36.0-47.0) Mean Corpuscular Volume 84 fL (79-100) Mean Corpuscular Hemoglobin 29 pg (25-35) Mean Corpuscular Hemoglobin Concent 35 g/dL (31-37) Red Cell Distribution Width 16.7 % (11.5-14.5) Platelet Count 373 x10^3/uL (140-400) Neutrophils (%) (Auto) 67 % (31-73) Lymphocytes (%) (Auto) 22 % (24-48) Monocytes (%) (Auto) 8 % (0-9) Eosinophils (%) (Auto) 3 % (0-3) Basophils (%) (Auto) 1 % (0-3) Neutrophils # (Auto) 5.1 x10^3uL (1.8-7.7) Lymphocytes # (Auto) 1.7 x10^3/uL (1.0-4.8) Monocytes # (Auto) 0.6 x10^3/uL (0.0-1.1) Eosinophils # (Auto) 0.2 x10^3/uL (0.0-0.7) Basophils # (Auto) 0.1 x10^3/uL (0.0-0.2) Reticulocyte Count (auto) 1.3 % (0.5-2.5) Prothrombin Time 23.2 SEC (11.7-14.0) Prothromb Time International Ratio 2.2 (0.8-1.1) Sodium Level 133 mmol/L (136-145) Potassium Level 4.7 mmol/L (3.5-5.1) Chloride Level 97 mmol/L (98-107) Carbon Dioxide Level 31 mmol/L (21-32) Anion Gap 5 (6-14) Blood Urea Nitrogen 69 mg/dL (7-20) Creatinine 1.4 mg/dL (0.6-1.0) Estimated GFR (Cockcroft-Gault) 36.2 Glucose Level 228 mg/dL (70-99) Calcium Level 10.0 mg/dL (8.5-10.1) Iron Level 42 ug/dL (50-170) Total Iron Binding Capacity 308 ug/dL (250-450) Iron Saturation 14 % (15-34) Ferritin 86 ng/mL (8-252) Test 01/04/17 07:50 01/04/17 11:13 Glucose (Fingerstick) 166 mg/dL (70-99) 221 mg/dL (70-99) Brief Hospital Course Ms. Astorga is a 81 old female,. admit iwth hyperglycemia to 600, weakess, lethargy. Prior known to our serivce. Hgb A1c > 10, she reported compliance with meds and diet. insulin increased, lasix decreased, BUN elevated to 60, Dr. Hunter to follow, CHF meds OK she felt well at DC pt and OT to home health with assisted lviing. Discharge Information Condition at Discharge: Improved Follow Up: Weeks Disposition/Orders: D/C to Home Scheduled Amlodipine Besylate (Amlodipine Besylate), 10 MG PO DAILY, (Reported) Aspirin (Aspirin), 1 TAB PO DAILY, (Reported) Atorvastatin Calcium (Atorvastatin Calcium), 40 MG PO HS, (Reported) Calcium Carbonate/Vitamin D3 (Calcium 500 + Vit D 200 Tablet), 1 EACH PO DAILY, (Reported) Docusate Sodium (Stool Softener), 200 MG PO HS, (Reported) Furosemide (Furosemide), 40 MG PO BID92, (Reported) Insulin Aspart (Novolog Flexpen), 10 UNIT SQ TIDAC, (Reported) Insulin Detemir (Levemir), 27 UNIT SQ HS, (Reported) Isosorbide Mononitrate (Isosorbide Mononitrate Er), 60 MG PO DAILY, (Reported) Losartan Potassium (Losartan Potassium), 50 MG PO DAILY, (Reported) Meclizine Hcl (Meclizine Hcl), 1 TAB PO BID, (Reported) Metoprolol Tartrate (Metoprolol Tartrate), 1 TAB PO BID, (Reported) Pantoprazole Sodium (Protonix), 1 TAB PO DAILY, (Reported) Polyethylene Glycol 3350 (Miralax), 1 PACKET PO DAILY, (Reported) Spironolactone (Spironolactone), 25 MG PO DAILY, (Reported) Warfarin Sodium (Coumadin), 1 TAB PO QM-F, (Reported) Warfarin Sodium (Coumadin), 1 TAB PO QSA, (Reported) Scheduled PRN Acetaminophen (Acetaminophen), 500 MG PO PRN Q8HRS PRN for PAIN, (Reported) Bisacodyl (Dulcolax), 10 MG PO PRN DAILY PRN for CONSTIPATION, (Reported) Bisacodyl (Dulcolax), 10 MG RC PRN DAILY PRN for CONSTIPATION, (Reported) Hydrocodone Bit/Acetaminophen (Hydrocodone-Apap 5-325 ), 1 TAB PO Q12HR PRN for PAIN, (Reported) Nitroglycerin (NITROGLYCERIN SubLingual), 0.4 MG SL PRN Q5MIN PRN for CHEST PAIN , (Reported) Discontinued Medications Furosemide (Furosemide), 80 MG PO BID, (Reported) Insulin Aspart (Novolog Flexpen), 1 UNIT SQ, (Reported) Levofloxacin (Levaquin), 250 MG PO DAILY, (Reported) Meloxicam (Meloxicam), 1 TAB PO DAILY, (Reported) Potassium Chloride (Potassium Chloride), 10 MEQ PO DAILY, (Reported) Patient Instructions Patient Instructions > 30 min ZEE POLO MD Jan 04, 2017 13:25
[2017-01-04] MEDS ORDERED: FERR-26 PO (13:47)
[2017-01-04 15:40] VITALS: BP 115/43
--- NOTE | 2017-01-04 15:44 | PDOC ---
PROGRESS NOTES Subjective Subjective Ms. Astorga is feeling much better today, no concerns or complaints at the time Denies chest pain, shortness of breath, diaphoresis, n/v, lightheadedness or any other complaints She is sitting up in her chair at time of arrival She will be discharged back to custodial Objective Objective Vital Signs Date Time Temp Pulse Resp B/P (MAP) Pulse Ox O2 Delivery O2 Flow Rate FiO2 01/04/17 11:00 98.8 56 16 154/45 (81) 97 Room Air 98.8 01/02/17 08:00 97.0 Intake and Output 01/05/17 07:00 Intake Total 600 ml Balance 600 ml Intake Oral 600 ml Physical Exam Physical Exam no significant changes Assessment Assessment 1) Hyperglycemia 2) Uncontrolled DBMT2 2) Hx of endocarditis 3) CAD 4) HTN 6) Hx MD Plan Plan of Care I have no further concerns at this time. BS this morning is improved to 228, although will still need further close management in the outpatient setting. She continues to be compensated cardiac ramos. No further changes. Thank you for involving me in her care! Comment Review of Relevant I have reviewed the following items alejandra (where applicable) has been applied. Labs Laboratory Tests Test 01/02/17 16:14 01/02/17 20:10 01/03/17 04:50 01/03/17 07:56 Glucose (Fingerstick) 218 mg/dL (70-99) 206 mg/dL (70-99) 211 mg/dL (70-99) White Blood Count 8.0 x10^3/uL (4.0-11.0) Red Blood Count 3.29 x10^6/uL (3.50-5.40) Hemoglobin 9.6 g/dL (12.0-15.5) Hematocrit 27.5 % (36.0-47.0) Mean Corpuscular Volume 84 fL (79-100) Mean Corpuscular Hemoglobin 29 pg (25-35) Mean Corpuscular Hemoglobin Concent 35 g/dL (31-37) Red Cell Distribution Width 16.7 % (11.5-14.5) Platelet Count 341 x10^3/uL (140-400) Neutrophils (%) (Auto) 71 % (31-73) Lymphocytes (%) (Auto) 17 % (24-48) Monocytes (%) (Auto) 8 % (0-9) Eosinophils (%) (Auto) 3 % (0-3) Basophils (%) (Auto) 1 % (0-3) Neutrophils # (Auto) 5.7 x10^3uL (1.8-7.7) Lymphocytes # (Auto) 1.4 x10^3/uL (1.0-4.8) Monocytes # (Auto) 0.6 x10^3/uL (0.0-1.1) Eosinophils # (Auto) 0.3 x10^3/uL (0.0-0.7) Basophils # (Auto) 0.0 x10^3/uL (0.0-0.2) Sodium Level 136 mmol/L (136-145) Potassium Level 4.5 mmol/L (3.5-5.1) Chloride Level 98 mmol/L (98-107) Carbon Dioxide Level 30 mmol/L (21-32) Anion Gap 8 (6-14) Blood Urea Nitrogen 65 mg/dL (7-20) Creatinine 1.4 mg/dL (0.6-1.0) Estimated GFR (Cockcroft-Gault) 36.2 Glucose Level 214 mg/dL (70-99) Calcium Level 10.1 mg/dL (8.5-10.1) Test 01/03/17 11:26 01/03/17 16:34 01/03/17 18:04 01/03/17 21:45 Glucose (Fingerstick) 257 mg/dL (70-99) 114 mg/dL (70-99) 136 mg/dL (70-99) 158 mg/dL (70-99) Test 01/04/17 05:05 01/04/17 07:50 01/04/17 11:13 White Blood Count 7.6 x10^3/uL (4.0-11.0) Red Blood Count 3.22 x10^6/uL (3.50-5.40) Hemoglobin 9.4 g/dL (12.0-15.5) Hematocrit 27.2 % (36.0-47.0) Mean Corpuscular Volume 84 fL (79-100) Mean Corpuscular Hemoglobin 29 pg (25-35) Mean Corpuscular Hemoglobin Concent 35 g/dL (31-37) Red Cell Distribution Width 16.7 % (11.5-14.5) Platelet Count 373 x10^3/uL (140-400) Neutrophils (%) (Auto) 67 % (31-73) Lymphocytes (%) (Auto) 22 % (24-48) Monocytes (%) (Auto) 8 % (0-9) Eosinophils (%) (Auto) 3 % (0-3) Basophils (%) (Auto) 1 % (0-3) Neutrophils # (Auto) 5.1 x10^3uL (1.8-7.7) Lymphocytes # (Auto) 1.7 x10^3/uL (1.0-4.8) Monocytes # (Auto) 0.6 x10^3/uL (0.0-1.1) Eosinophils # (Auto) 0.2 x10^3/uL (0.0-0.7) Basophils # (Auto) 0.1 x10^3/uL (0.0-0.2) Reticulocyte Count (auto) 1.3 % (0.5-2.5) Prothrombin Time 23.2 SEC (11.7-14.0) Prothromb Time International Ratio 2.2 (0.8-1.1) Sodium Level 133 mmol/L (136-145) Potassium Level 4.7 mmol/L (3.5-5.1) Chloride Level 97 mmol/L (98-107) Carbon Dioxide Level 31 mmol/L (21-32) Anion Gap 5 (6-14) Blood Urea Nitrogen 69 mg/dL (7-20) Creatinine 1.4 mg/dL (0.6-1.0) Estimated GFR (Cockcroft-Gault) 36.2 Glucose Level 228 mg/dL (70-99) Calcium Level 10.0 mg/dL (8.5-10.1) Iron Level 42 ug/dL (50-170) Total Iron Binding Capacity 308 ug/dL (250-450) Iron Saturation 14 % (15-34) Ferritin 86 ng/mL (8-252) Glucose (Fingerstick) 166 mg/dL (70-99) 221 mg/dL (70-99) Laboratory Tests Test 01/03/17 16:34 01/03/17 18:04 01/03/17 21:45 01/04/17 05:05 Glucose (Fingerstick) 114 mg/dL (70-99) 136 mg/dL (70-99) 158 mg/dL (70-99) White Blood Count 7.6 x10^3/uL (4.0-11.0) Red Blood Count 3.22 x10^6/uL (3.50-5.40) Hemoglobin 9.4 g/dL (12.0-15.5) Hematocrit 27.2 % (36.0-47.0) Mean Corpuscular Volume 84 fL (79-100) Mean Corpuscular Hemoglobin 29 pg (25-35) Mean Corpuscular Hemoglobin Concent 35 g/dL (31-37) Red Cell Distribution Width 16.7 % (11.5-14.5) Platelet Count 373 x10^3/uL (140-400) Neutrophils (%) (Auto) 67 % (31-73) Lymphocytes (%) (Auto) 22 % (24-48) Monocytes (%) (Auto) 8 % (0-9) Eosinophils (%) (Auto) 3 % (0-3) Basophils (%) (Auto) 1 % (0-3) Neutrophils # (Auto) 5.1 x10^3uL (1.8-7.7) Lymphocytes # (Auto) 1.7 x10^3/uL (1.0-4.8) Monocytes # (Auto) 0.6 x10^3/uL (0.0-1.1) Eosinophils # (Auto) 0.2 x10^3/uL (0.0-0.7) Basophils # (Auto) 0.1 x10^3/uL (0.0-0.2) Reticulocyte Count (auto) 1.3 % (0.5-2.5) Prothrombin Time 23.2 SEC (11.7-14.0) Prothromb Time International Ratio 2.2 (0.8-1.1) Sodium Level 133 mmol/L (136-145) Potassium Level 4.7 mmol/L (3.5-5.1) Chloride Level 97 mmol/L (98-107) Carbon Dioxide Level 31 mmol/L (21-32) Anion Gap 5 (6-14) Blood Urea Nitrogen 69 mg/dL (7-20) Creatinine 1.4 mg/dL (0.6-1.0) Estimated GFR (Cockcroft-Gault) 36.2 Glucose Level 228 mg/dL (70-99) Calcium Level 10.0 mg/dL (8.5-10.1) Iron Level 42 ug/dL (50-170) Total Iron Binding Capacity 308 ug/dL (250-450) Iron Saturation 14 % (15-34) Ferritin 86 ng/mL (8-252) Test 01/04/17 07:50 01/04/17 11:13 Glucose (Fingerstick) 166 mg/dL (70-99) 221 mg/dL (70-99) Microbiology 12/28/16 Blood Culture - Final, Complete NO GROWTH AFTER 5 DAYS 12/28/16 Urine Culture - Final, Complete 12/28/16 Urine Culture Result 1 (SHERRIE) - Final, Complete Medications Current Medications Ceftriaxone Sodium 50 ml @ 100 mls/hr 1X ONCE IV Last administered on 15:29; Start 12/28/16 at 15:15; Stop 12/28/16 at 15:44; Status DC Insulin Aspart (NovoLOG) 0-7 UNITS TIDWMEALS SQ Last administered on 12/29/16 08:08; Start 12/28/16 at 17:00; Stop 12/29/16 at 16:00; Status DC Dextrose (Dextrose 50%-Water Syringe) 12.5 gm PRN Q15MIN PRN IV SEE COMMENTS; Start 12/28/16 at 15:30; Stop 12/29/16 at 17:02; Status DC Sodium Chloride 1,000 ml @ 1,000 mls/hr 1X ONCE IV Last administered on 15:48; Start 12/28/16 at 15:45; Stop 12/28/16 at 16:44; Status DC Ondansetron HCl (Zofran) 4 mg PRN Q8HRS PRN IV NAUSEA/VOMITING; Start 12/28/16 at 16:30; Stop 12/29/16 at 16:29; Status DC Insulin Aspart (NovoLOG) 10 units 1X ONCE SQ Last administered on 12/28/16 17 :35; Start 12/28/16 at 17:15; Stop 12/28/16 at 17:16; Status DC Insulin Aspart (NovoLOG) 10 units 1X ONCE SQ Last administered on 12/28/16 19 :24; Start 12/28/16 at 19:15; Stop 12/28/16 at 19:16; Status DC Acetaminophen (Tylenol) 500 mg PRN Q8HRS PRN PO MILD TO MODERATE PAIN Last administered on 01/02/17 16:30; Start 12/28/16 at 20:00 Amlodipine Besylate (Norvasc) 10 mg DAILY PO Last administered on 01/04/17 09: 58; Start 12/29/16 at 09:00 Aspirin (Derek Aspirin) 325 mg [id number] PO Last administered on 01/04/17 08: 49; Start 12/29/16 at 08:00 Atorvastatin Calcium (Lipitor) 40 mg HS PO Last administered on 01/03/17 21:34 ; Start 12/28/16 at 21:00 Calcium/Vitamin D (Oscal D 500mg/ 200uts) 1 tab DAILY PO Last administered on 08:51; Start 12/29/16 at 09:00 Docusate Sodium (Colace) 200 mg HS PO Last administered on 01/03/17 21:34; Start 12/28/16 at 21:00 Furosemide (Lasix) 80 mg BID92 PO Last administered on 01/04/17 09:57; Start 12/29/16 at 09:00; Stop 01/04/17 at 10:00; Status DC Acetaminophen/ Hydrocodone Bitart (Lortab 5/325) 1 tab Q12HR PRN PO PAIN Last administered on 12/31/16 21:19; Start 12/28/16 at 20:00; Stop 01/01/17 at 14:18 ; Status DC Meclizine HCl (Antivert) 12.5 mg BID PO Last administered on 01/04/17 08:50; Start 12/28/16 at 21:00 Meloxicam (Mobic) 7.5 mg DAILY PO Last administered on 12/29/16 08:45; Start 12/29/16 at 09:00; Stop 12/29/16 at 11:53; Status DC Metoprolol Tartrate (Lopressor) 25 mg BID PO Last administered on 01/04/17 09: 57; Start 12/28/16 at 21:00 Nitroglycerin (Nitrostat) 0.4 mg PRN Q5MIN PRN SL CHEST PAIN; Start 12/28/16 at 20:00 Pantoprazole Sodium (Protonix) 40 mg DAILYAC PO Last administered on 01/04/17 08:49; Start 12/29/16 at 07:30 Spironolactone (Aldactone) 25 mg DAILY PO Last administered on 01/04/17 09:55 ; Start 12/29/16 at 09:00 Warfarin Sodium (Coumadin) 4 mg QM-F PO Last administered on 01/03/17 17:06; Start 12/29/16 at 16:00 Warfarin Sodium (Coumadin) 4 mg QSA PO Last administered on 12/30/16 17:02; Start 12/30/16 at 16:00 Isosorbide Mononitrate (Imdur) 60 mg DAILY PO Last administered on 01/04/17 09 :57; Start 12/29/16 at 09:00 Losartan Potassium (Cozaar) 50 mg DAILY PO Last administered on 01/04/17 09:56 ; Start 12/29/16 at 09:00 Levofloxacin (Levaquin) 250 mg DAILY06 PO Last administered on 12/29/16 06:30 ; Start 12/29/16 at 06:00; Stop 12/29/16 at 09:49; Status DC Warfarin Sodium (Coumadin Per Pharmacy) 1 each PRN DAILY PRN MC SEE COMMENTS Last administered on 01/03/17 13:07; Start 12/28/16 at 20:45 Warfarin Sodium (Coumadin) 4 mg 1X WARF ONCE PO Last administered on 22:33; Start 12/28/16 at 21:29; Stop 12/28/16 at 21:30; Status DC Insulin Aspart (NovoLOG) 5 units 1X ONCE SQ Last administered on 12/29/16 08: 51; Start 12/29/16 at 08:30; Stop 12/29/16 at 08:31; Status DC Insulin Human Regular (NovoLIN R VIAL) 10 unit 1X ONCE IV Last administered on 12/29/16 12:18; Start 12/29/16 at 12:15; Stop 12/29/16 at 12:16; Status DC Sodium Chloride 1,000 ml @ 75 mls/hr [id number] IV Last administered on 00:25; Start 12/29/16 at 12:00; Stop 12/31/16 at 13:45; Status DC Lidocaine (Lidoderm) 1 patch PRN DAILY PRN TD PAIN Last administered on 10:00; Start 12/29/16 at 13:30 Insulin Detemir (Levemir) 20 units QHS SQ Last administered on 12/31/16 21:29 ; Start 12/29/16 at 21:00; Stop 01/01/17 at 12:24; Status DC Insulin Aspart (NovoLOG) 6 units TIDAC SQ Last administered on 01/01/17 12:12 ; Start 12/29/16 at 16:30; Stop 01/01/17 at 12:24; Status DC Insulin Aspart (NovoLOG) 0-9 UNITS QIDACHS SQ Last administered on 01/04/17 12 :34; Start 12/29/16 at 16:30 Dextrose (Dextrose 50%-Water Syringe) 12.5 gm PRN Q15MIN PRN IV SEE COMMENTS; Start 12/29/16 at 16:00 Insulin Aspart (NovoLOG) 20 units 1X ONCE SQ Last administered on 12/29/16 17 :32; Start 12/29/16 at 17:00; Stop 12/29/16 at 17:02; Status DC Insulin Aspart (NovoLOG) 15 units 1X ONCE SQ Last administered on 12/29/16 20 :58; Start 12/29/16 at 21:00; Stop 12/29/16 at 21:01; Status DC Insulin Aspart (NovoLOG) 15 units 1X ONCE SQ Last administered on 12/30/16 21 :50; Start 12/30/16 at 21:30; Stop 12/30/16 at 21:32; Status DC Polyethylene Glycol (miraLAX PACKET) 17 gm DAILY PO Last administered on 08:51; Start 12/31/16 at 15:00 Bisacodyl (Dulcolax Tab) 10 mg PRN DAILY PRN PO CONSTIPATION Last administered on 12/31/16 17:07; Start 12/31/16 at 14:45 Insulin Aspart (NovoLOG) 10 units TIDAC SQ ; Start 01/01/17 at 16:30; Stop 01/01 at 16:30; Status DC Insulin Detemir (Levemir) 28 units QHS SQ ; Start 01/01/17 at 21:00; Stop at 21:00; Status DC Bisacodyl (Dulcolax Supp) 10 mg PRN DAILY PRN UT CONSTIPATION Last administered on 01/01/17 13:09; Start 01/01/17 at 12:45 Sodium Monofluorophosphate (Fleet Adult) 133 ml PRN DAILY PRN UT CONSTIPATION; Start 01/01/17 at 12:45; Stop 01/04/17 at 10:00; Status DC Insulin Aspart (NovoLOG) 9 units TIDAC SQ Last administered on 01/02/17 16:38 ; Start 01/01/17 at 16:30; Stop 01/03/17 at 08:03; Status DC Insulin Detemir (Levemir) 25 units QHS SQ Last administered on 01/02/17 20:29 ; Start 01/01/17 at 21:00; Stop 01/03/17 at 08:03; Status DC Acetaminophen/ Hydrocodone Bitart (Lortab 5/325) 1 tab PRN Q12HR PRN PO MODERATE TO SEVER PAIN Last administered on 01/04/17 09:59; Start 01/01/17 at 14:30 Insulin Aspart (NovoLOG) 15 units 1X ONCE SQ Last administered on 01/01/17 21 :27; Start 01/01/17 at 21:30; Stop 01/01/17 at 21:31; Status DC Insulin Aspart (NovoLOG) 10 units TIDAC SQ ; Start 01/03/17 at 11:30; Stop 01/03 at 11:30; Status DC Insulin Detemir (Levemir) 27 units QHS SQ Last administered on 01/03/17 21:50 ; Start 01/03/17 at 21:00 Insulin Aspart (NovoLOG) 10 units TIDAC SQ Last administered on 01/04/17 12:35 ; Start 01/03/17 at 08:30 Furosemide (Lasix) 40 mg BID92 PO ; Start 01/05/17 at 14:00 Iron Sucrose 200 mg/Sodium Chloride 110 ml @ 55 mls/hr 1X ONCE IV ; Start at 11:00; Stop 01/04/17 at 11:16; Status DC Active Scripts Active Reported Ferrous Sulfate 325 Mg Tablet 1 Tab PO DAILY Furosemide 40 Mg Tablet 40 Mg PO BID92 Miralax (Polyethylene Glycol 3350) 17 Gm Powd.pack 1 Packet PO DAILY Levemir (Insulin Detemir) 100 Unit/1 Ml Vial 27 Unit SQ HS Novolog Flexpen (Insulin Aspart) 100 Unit/1 Ml Insuln.pen 10 Unit SQ TIDAC Dulcolax (Bisacodyl) 10 Mg Supp.rect 10 Mg RC PRN DAILY PRN Dulcolax (Bisacodyl) 5 Mg Tablet.dr 10 Mg PO PRN DAILY PRN Coumadin (Warfarin Sodium) 4 Mg Tablet 1 Tab PO QSA Coumadin (Warfarin Sodium) 4 Mg Tablet 1 Tab PO QM-F fr Mon til Sat Aspirin 325 Mg Tablet 1 Tab PO DAILY Calcium 500 + Vit D 200 Tablet (Calcium Carbonate/Vitamin D3) 1 Each Tablet 1 Each PO DAILY TAKE NEXT DOSE TOMORROW 11/14 IN AM NITROGLYCERIN SubLingual (Nitroglycerin) 0.4 Mg Tab.subl 0.4 Mg SL PRN Q5MIN PRN Protonix (Pantoprazole Sodium) 40 Mg Tablet.dr 1 Tab PO DAILY TAKE NEXT DOSE TOMORROW 11/14 IN AM Metoprolol Tartrate 25 Mg Tablet 1 Tab PO BID TAKE NEXT DOSE TONIGHT 7/10 AT BEDTIME Acetaminophen 500 Mg Tablet 500 Mg PO PRN Q8HRS PRN Meclizine Hcl 12.5 Mg Tablet 1 Tab PO BID TAKE NEXT DOSE TONIGHT 07/10 AT BEDTIME Hydrocodone-Apap 5-325 (Hydrocodone Bit/Acetaminophen) 1 Each Tablet 1 Tab PO Q12HR PRN Spironolactone 25 Mg Tablet 25 Mg PO DAILY TAKE NEXT DOSE TOMORROW 11/14 IN AM Stool Softener (Docusate Sodium) 100 Mg Capsule 200 Mg PO HS TAKE NEXT DOSE TONIGHT 07/10 AT BEDTIME Amlodipine Besylate 10 Mg Tablet 10 Mg PO DAILY TAKE NEXT DOSE TOMORROW 11/14 IN AM hold if sbp less than 100 Losartan Potassium 100 Mg Tablet 50 Mg PO DAILY TAKE NEXT DOSE TOMORROW 11/14 IN AM Atorvastatin Calcium 40 Mg Tablet 40 Mg PO HS TAKE NEXT DOSE TONIGHT 07/10 AT BEDTIME Isosorbide Mononitrate Er (Isosorbide Mononitrate) 60 Mg Tab.er.24h 60 Mg PO DAILY TAKE NEXT DOSE TOMORROW 11/14 IN AM Vitals/I & O Vital Sign - Last 24 Hours 8/01/03/17 01/03/17 01/03/17 19:00 20:00 21:35 21:47 Temp 97.9 97.9 Pulse 62 62 B/P (MAP) 124/40 (68) 124/40 Pulse Ox 95 99 O2 Delivery Room Air Room Air Room Air 01/03/17 01/04/17 01/04/17 01/04/17 23:00 07:00 09:54 09:56 Temp 97.9 96.4 97.9 96.4 Pulse 62 57 61 61 Resp 18 18 18 B/P (MAP) 129/35 (66) 91/55 (67) 126/45 (72) 126/45 Pulse Ox 98 99 95 O2 Delivery Room Air Room Air Room Air 01/04/17 01/04/17 01/04/17 01/04/17 09:57 09:57 09:58 09:59 Pulse 61 61 61 Resp 20 B/P (MAP) 126/45 126/45 126/45 Pulse Ox 95 O2 Delivery Room Air 01/04/17 01/04/17 10:59 11:00 Temp 98.8 98.8 Pulse 56 Resp 18 16 B/P (MAP) 154/45 (81) Pulse Ox 95 97 O2 Delivery Room Air Room Air Intake and Output 01/04/17 01/04/17 01/05/17 15:00 23:00 07:00 Intake Total 600 ml Balance 600 ml WILLY GURROLA MD Jan 04, 2017 15:44
[2017-01-04] MEDS: WARFARIN 4 MG TABLET. PO SCH (16:24)
[2017-01-05] MEDS ORDERED: FUROSEMIDE 40 MG TABLET. PO SCH (14:00)
== END 2017-01-04 16:30 | disposition home health service (06) | DRG 637 ==
LOC: ER 12:49 → 5 NORTH 15:40
PROVIDERS: ADMIT Internal Medicine; ATTEND Internal Medicine
DX: E11.00 Type 2 diabetes mellitus with hyperosmolarity without nonketotic hyperglycemic-hyperosmolar coma (NKHHC) (principal); N17.0 Acute kidney failure with tubular necrosis; K86.2 Cyst of pancreas; E44.0 Moderate protein-calorie malnutrition; I50.42 Chronic combined systolic (congestive) and diastolic (congestive) heart failure; I13.0 Hypertensive heart and chronic kidney disease with heart failure and stage 1 through stage 4 chronic kidney disease, or unspecified chronic kidney disease; E87.1 Hypo-osmolality and hyponatremia; E11.65 Type 2 diabetes mellitus with hyperglycemia; E11.22 Type 2 diabetes mellitus with diabetic chronic kidney disease; E11.51 Type 2 diabetes mellitus with diabetic peripheral angiopathy without gangrene; K21.9 Gastro-esophageal reflux disease without esophagitis; I25.10 Atherosclerotic heart disease of native coronary artery without angina pectoris; I05.9 Rheumatic mitral valve disease, unspecified; N18.3 Chronic kidney disease, stage 3 (moderate); E61.1 Iron deficiency; K59.00 Constipation, unspecified; E87.5 Hyperkalemia; I27.2 Other secondary pulmonary hypertension; K57.90 Diverticulosis of intestine, part unspecified, without perforation or abscess without bleeding; M19.90 Unspecified osteoarthritis, unspecified site; Z96.659 Presence of unspecified artificial knee joint; Z90.49 Acquired absence of other specified parts of digestive tract; Z90.710 Acquired absence of both cervix and uterus; Z95.5 Presence of coronary angioplasty implant and graft; I25.2 Old myocardial infarction; Z88.8 Allergy status to other drugs, medicaments and biological substances; Z88.9 Allergy status to unspecified drugs, medicaments and biological substances; Z91.041 Radiographic dye allergy status; Z79.01 Long term (current) use of anticoagulants; Z86.718 Personal history of other venous thrombosis and embolism; Z79.4 Long term (current) use of insulin; Z92.3 Personal history of irradiation; Z85.3 Personal history of malignant neoplasm of breast; Z83.3 Family history of diabetes mellitus; Z82.49 Family history of ischemic heart disease and other diseases of the circulatory system; Z68.33 Body mass index [BMI] 33.0-33.9, adult
CPT/HCPCS: 36415; 74176; 74181; 80048; 80076; 81001; 82553; 82728; 82947; 82962; 83036; 83540; 83550; 83690; 83735; 83880; 84443; 84484; 85025; 85045; 85610; 87040; 87086; 87641; 93005; 93306; 96361; 96365; 96375; J0690; J1815; J7030; J8597; 99285-25

== ENCOUNTER 2017-03-25 03:42 | Inpatient (IN) | payer MEDICARE ==
[~2017-03-25] VITALS: Ht 157.5 cm; Wt 86.3 kg
[~2017-03-25 03:42] MED LIST changes: +ASPI325T8 PO; +BISA-42 PO; +BISA10SU55 RC; +DARB10SY IJ; +FERR-26 PO; +FURO40TA4 PO; +INSU100I30 SQ; +INSU100V31 SQ; +LEVO500T59 PO; +MELO7.5T5 PO; -NIFE90TA7 PO; +NIFE90TA8 PO; +POLY17PO29 PO; +WARF4TAB68 PO
--- NOTE | 2017-03-25 03:52 | PHYS DOC ---
Past Medical History Past Medical History: CAD, Cancer, CHF, Diabetes-Type II, GERD, Hypertension, [place], Other Additional Past Medical Histor: menieres, breast cancer - L lumpectomy, cellulitis - BLE, Past Surgical History: Appendectomy, Cholecystectomy, Hysterectomy, Knee Replacement, Tonsillectomy, Other Additional Past Surgical Histo: lumpectomy in left breast, 2 CARDIAC STENTS AND 3 BALLOONS Alcohol Use: None Drug Use: None Adult General Chief Complaint Chief Complaint: CHEST PAIN HPI HPI Patient is a 82 year old F who presents with chest pain since 10 PM. Patient states the pain started off as a heartburn epigastric pain that progressively got worse throughout the night. Patient has history of stent placement with congestive heart failure. 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 Patient denies any shortness of breath. Patient denies any fevers. Patient denies any nausea or vomiting. Patient state her pain in the emergency room is better after receiving aspirin and nitroglycerin and morphine and route by EMS. Patient has no other complaints. Review of Systems Review of Systems GEN: Denies fevers, chills, sweats HEENT: Denies blurred vision, sore throat CV: Chest pain RESP: Denies shortness of air, cough GI: Denies n/v/d NEURO: Denies confusion, dizziness MSK: Denies weakness, joint pain/swelling All other systems were reviewed and found to be within normal limits, except as documented in this note. Current Medications Current Medications Current Medications Medications (Trade) Dose Ordered Sig/Huyen Start Time Stop Time Status Last Admin Dose Admin Acetaminophen (Tylenol) 650 mg PRN Q4HRS PRN 03/25/17 04:30 03/26/17 04:29 UNV Heparin Sodium (Porcine) (Heparin Sodium) 2,150 unit PRN Q6HRS PRN 03/25/17 04:30 UNV Heparin Sodium/ Dextrose 500 ml @ 0 mls/hr CONT PRN 03/25/17 04:30 UNV Morphine Sulfate 4 mg PRN Q2HR PRN 03/25/17 04:30 03/26/17 04:29 UNV Nitroglycerin (Nitrostat) 0.4 mg PRN Q5MIN PRN 03/25/17 04:30 03/26/17 04:29 UNV Ondansetron HCl (Zofran) 4 mg PRN Q8HRS PRN 03/25/17 04:30 03/26/17 04:29 UNV Allergies Allergies Allergies Coded Allergies Type Severity Reaction Last Updated Verified Iodinated Contrast- Oral and IV Dye Allergy Severe Anaphylaxis 01/11/17 Yes adhesive tape Allergy Intermediate 01/11/17 Yes meperidine Adverse Reaction Intermediate Vomiting 01/11/17 Yes Physical Exam Physical Exam GEN.: No apparent distress. Alert and oriented. HEENT: Head is normocephalic, atraumatic NECK: Supple. LUNGS: CTAB. HEART: RRR, 3/6 LIZZIE. Peripheral pulses intact ABDOMEN: Soft, nontender. Positive bowel sounds. EXTREMITIES: Without any cyanosis. NEUROLOGIC: Normal speech, normal tone PSYCHIATRIC: Normal affect, normal mood. SKIN: No ulcerations Current Patient Data Vital Signs Vital Signs Date Time Temp Pulse Resp B/P (MAP) Pulse Ox O2 Delivery O2 Flow Rate FiO2 03/25/17 03:47 98.4 84 18 190/81 (117) 95 Room Air 98.4 Lab Values Laboratory Tests Test 03/25/17 03:50 White Blood Count 8.2 x10^3/uL (4.0-11.0) Red Blood Count 3.44 x10^6/uL (3.50-5.40) L Hemoglobin 9.9 g/dL (12.0-15.5) L Hematocrit 29.9 % (36.0-47.0) L Mean Corpuscular Volume 87 fL (79-100) Mean Corpuscular Hemoglobin 29 pg (25-35) Mean Corpuscular Hemoglobin Concent 33 g/dL (31-37) Red Cell Distribution Width 17.6 % (11.5-14.5) H Platelet Count 349 x10^3/uL (140-400) Neutrophils (%) (Auto) 81 % (31-73) H Lymphocytes (%) (Auto) 12 % (24-48) L Monocytes (%) (Auto) 5 % (0-9) Eosinophils (%) (Auto) 1 % (0-3) Basophils (%) (Auto) 0 % (0-3) Neutrophils # (Auto) 6.6 x10^3uL (1.8-7.7) Lymphocytes # (Auto) 1.0 x10^3/uL (1.0-4.8) Monocytes # (Auto) 0.4 x10^3/uL (0.0-1.1) Eosinophils # (Auto) 0.1 x10^3/uL (0.0-0.7) Basophils # (Auto) 0.0 x10^3/uL (0.0-0.2) Sodium Level 134 mmol/L (136-145) L Potassium Level 4.1 mmol/L (3.5-5.1) Chloride Level 100 mmol/L (98-107) Carbon Dioxide Level 29 mmol/L (21-32) Anion Gap 5 (6-14) L Blood Urea Nitrogen 43 mg/dL (7-20) H Creatinine 1.4 mg/dL (0.6-1.0) H Estimated GFR (Cockcroft-Gault) 36.1 BUN/Creatinine Ratio 31 (6-20) H Glucose Level 403 mg/dL (70-99) H Calcium Level 9.8 mg/dL (8.5-10.1) Total Bilirubin 0.2 mg/dL (0.2-1.0) Aspartate Amino Transferase (AST) 19 U/L (15-37) Alanine Aminotransferase (ALT) 17 U/L (14-59) Alkaline Phosphatase 123 U/L (46-116) H Troponin I Quantitative 0.387 ng/mL (0.000-0.055) Total Protein 8.2 g/dL (6.4-8.2) Albumin 3.0 g/dL (3.4-5.0) L Albumin/Globulin Ratio 0.6 (1.0-1.7) L Laboratory Tests 03/25/17 03:50 Laboratory Tests 03/25/17 03:50 EKG EKG 0345: EKG shows normal sinus rhythm rate of 85 no STEMI, when compared to the EKG from October 11, 2016 no overall significant change still ST depressions in the lateral leads[] Radiology/Procedures Radiology/Procedures Chest x-ray NAD[] Course & Med Decision Making Course & Med Decision Making Pertinent Labs and Imaging studies reviewed. (See chart for details) ED course: Patient was seen and examined emergency room cardiac workup was ordered Patient was updated on blood work and elevated troponin and plan to admit and start a heparin drip, on reexamination patient's chest pain is still 1/10 in no acute distress 0440: Discussed CC/HP/PMH with Dr. Cast and recommends admit to CVC and place the patient heparin drip MDM: After reviewing the chart, CC/HPI/PMH, physical exam, [lab results], [ radiological results], I believe the patient is having an NSTEMI and will place the patient on a heparin drip to the CVC. Critical care time was 35 minutes exclusive of procedures. [] Dragon Disclaimer Dragon Disclaimer This electronic medical record was generated, in whole or in part, using a voice recognition dictation system. Departure Departure Impression: Primary Impression: NSTEMI (non-ST elevated myocardial infarction) Additional Impression: Chest pain Disposition: 09 ADMITTED INPATIENT Admitting Physician: Pelon Cast Condition: STABLE Referrals: ROSELIA KUMAR MD (PCP) Problem Qualifiers JAMEEL CASTILLO DO Mar 25, 2017 03:52
[2017-03-25 04:00] LABS: BASO % 0 % (0-3); EOS % 1 % (0-3); HEMATOCRIT 29.9 % (36.0-47.0); HEMOGLOBIN 9.9 g/dL (12.0-15.5); LYMPH % 12 % (24-48); MEAN CORPUSCULAR HEMOGLOBIN 29 pg (25-35); MEAN CORPUSCULAR HGB CONC 33 g/dL (31-37); MEAN CORPUSCULAR VOLUME 87 fL (79-100); MONO % 5 % (0-9); NEUT % 81 % (31-73); PLATELET COUNT 349 x10^3/uL (140-400); RED BLOOD COUNT 3.44 x10^6/uL (3.50-5.40); RED CELL DISTRIBUTION WIDTH 17.6 % (11.5-14.5); WHITE BLOOD COUNT 8.2 x10^3/uL (4.0-11.0)
[2017-03-25 04:10] LABS: CALCIUM 9.8 mg/dL (8.5-10.1); CREATININE 1.4 mg/dL (0.6-1.0); GFR 36.1; POTASSIUM 4.1 mmol/L (3.5-5.1)
[2017-03-25 04:16] LABS: ALBUMIN/GLOBULIN RATIO 0.6 (1.0-1.7); TOTAL BILIRUBIN 0.2 mg/dL (0.2-1.0); TOTAL PROTEIN 8.2 g/dL (6.4-8.2)
[2017-03-25] MEDS ORDERED: HEPARIN for IV BOLUS 10,000 UNIT/10 ML VIAL. IV ONE (04:30)
[2017-03-25] MEDS ORDERED: HEPARIN for IV BOLUS 10,000 UNIT/10 ML VIAL. IV PRN (04:30)
[2017-03-25] MEDS ORDERED: ACETAMINOPHEN 325 MG TABLET. PO PRN (04:30)
[2017-03-25] MEDS ORDERED: MORPHINE SULFATE 4 MG/ML DISP.SYRIN. IV PRN (04:30)
[2017-03-25] MEDS ORDERED: NITROGLYCERIN SUBLINGUAL 0.4 MG BOTTLE OF 25. SL PRN ×2 (04:30→12:00)
[2017-03-25] MEDS ORDERED: ONDANSETRON PF 4 MG/2 ML VIAL. IV PRN (04:30)
[2017-03-25] MEDS: HEPARIN 25,000UTS/500ML PREMIX 500 ML IV PRN ×2 (05:07→20:20)
[2017-03-25 05:56] VITALS: BP 165/80
[2017-03-25 07:00] VITALS: BP 173/70
[2017-03-25] MEDS ORDERED: FURO20TA3 PO (07:07)
--- NOTE | 2017-03-25 08:00 | RAD ---
AP PORTABLE CHEST Clinical Indication: cp. Comparison: AP chest 03/12/2017. Findings: Atherosclerotic thoracic aorta. Stable cardiomegaly. Mild interstitial marking prominence. No focal airspace disease. There is no pneumothorax. No pleural effusion is appreciated. There is advanced degenerative arthropathy of the shoulders. IMPRESSION: Mild interstitial edema. Stable cardiomegaly.
--- NOTE | 2017-03-25 08:59 | EKG ---
[facility] [address] [place] [address] Test Date: 2017-03-25 Test Time: 03:45:59 Pat Name: TESSA ROGERS Department: Room: 207 1 Gender: F Jewel Sorter: : 1935 Requested By: JAMEEL CASTILLO Order Number: [id number] Reading MD: Darian Carreno MD Measurements Intervals [place] Rate: 85 P: 90 FL: 230 QRS: -36 QRSD: 102 T: 100 QT: 388 QTc: 462 Interpretive Statements SINUS RHYTHM PROLONGED FL INTERVAL ABNORMAL LEFT AXIS DEVIATION LEFT ANTERIOR FASCICULAR BLOCK LVH WITH REPOLARIZATION ABNORMALITY Electronically Signed On 03-27-2017 12:26:44 RESEARCH ADVISOR by Darian Carreno MD
[2017-03-25 11:00] VITALS: BP_SYST 119; BP_SYST 196; BP_SYST 199; BP_DIAS 64; BP_DIAS 71; BP_DIAS 77
--- NOTE | 2017-03-25 11:55 | PDOC1 ---
History and Physical Date of Admission Date of Admission DATE: 03/25/17 TIME: 11:47 Identification/Chief Complaint Chief Complaint Chest pain Problems: History of Present Illness History of Present Illness This is a very pleasant 82-year-old lady that has a known history of coronary artery disease, hypertension, diabetes, CKD, previous problems with cancer and valvular heart disease. She is very allergic to contrast and has had a previous episode of anaphylactic shock when we were trying to do a heart catheterization. Her condition has been deterioratingrecently the last year and a half and she is a DNR. The patient was sent home and developed acute onset of severe chest pain worse and she's had in the past and radiating into the neck and the left axilla. She came into the emergency room and her EKG did not show any significant ST segment changes but she had elevation of the troponin. At the time that I examined the patient she is not having any chest discomfort. The patient complains that she has also been gaining weight and has had a 5 pound gain over 2 days. She is having some dyspnea. Past Medical History Cardiovascular: CAD, CHF, HTN, PA, Valve insufficiency, Pulmonary hypertension , Other GI: GERD, Gastritis Heme/Onc: Cancer Renal/: Chronic renal insuff Endocrine: Diabetes Past Surgical History Past Surgical History: Pacemaker, Other Family History Family History: No Significant, Diabetes, Hypertension Social History ALCOHOL: none Drugs: None Current Problem List Problem List Problems Medical Problems: (1) Chest pain Status: Acute (2) NSTEMI (non-ST elevated myocardial infarction) Status: Acute Problems: Current Medications Current Medications Current Medications Heparin Sodium (Porcine) (Heparin Sodium) 4,000 unit 1X ONCE IV Last administered on 03/25/17 04:58; Start 03/25/17 at 04:30; Stop 03/25/17 at 05 :07; Status DC Heparin Sodium/ Dextrose 500 ml @ 0 mls/hr CONT PRN IV SEE I/O RECORD Last administered on 03/25/17 05:07; Start 03/25/17 at 04:30 Heparin Sodium (Porcine) (Heparin Sodium) 2,150 unit PRN Q6HRS PRN IV FOR UFH LEVEL LESS THAN 0.2; Start 03/25/17 at 04:30 Ondansetron HCl (Zofran) 4 mg PRN Q8HRS PRN IV NAUSEA/VOMITING; Start at 04:30; Stop 03/26/17 at 04:29 Morphine Sulfate 4 mg PRN Q2HR PRN IV PAIN; Start 03/25/17 at 04:30; Stop at 04:29 Acetaminophen (Tylenol) 650 mg PRN Q4HRS PRN PO FEVER; Start 03/25/17 at 04:30 ; Stop 03/26/17 at 04:29 Nitroglycerin (Nitrostat) 0.4 mg PRN Q5MIN PRN SL CHEST PAIN; Start 03/25/17 at 04:30; Stop 03/26/17 at 04:29 Insulin Aspart (NovoLOG) 12 units DAILYAC SQ ; Start 03/26/17 at 07:30 Active Scripts Active Reported Furosemide 20 Mg Tablet 60 Mg PO BID am and 1400 Mobic (Meloxicam) 7.5 Mg Tablet 7.5 Mg PO DAILY Aranesp (Darbepoetin Pablo in Polysorbat) 10 Mcg/0.4 Ml Syringe 60 Mcg IJ WEEKLYHS on sunday Tresiba Flextouch U-100 (Insulin Degludec) 100 Unit/1 Ml Insuln.pen 30 Unit SQ DAILYWBKFT Novolog (Insulin Aspart) 100 Unit/1 Ml Vial 100 Unit SQ sliding scale as follows 150-200=2units 201-250=4units 251-300=6units 301-350=8units 351-400=10units >401=12units Novolog (Insulin Aspart) 100 Unit/1 Ml Vial 12 Unit SQ DAILYAC Ferrous Sulfate 325 Mg Tablet 1 Tab PO DAILY Miralax (Polyethylene Glycol 3350) 17 Gm Powd.pack 1 Packet PO DAILY Dulcolax (Bisacodyl) 10 Mg Supp.rect 10 Mg RC PRN DAILY PRN Dulcolax (Bisacodyl) 5 Mg Tablet.dr 10 Mg PO PRN DAILY PRN Coumadin (Warfarin Sodium) 4 Mg Tablet 4 Mg PO DAILY fr Mon til Sat Aspirin 325 Mg Tablet 1 Tab PO DAILY Calcium 500 + Vit D 200 Tablet (Calcium Carbonate/Vitamin D3) 1 Each Tablet 1 Each PO DAILY TAKE NEXT DOSE TOMORROW 11/14 IN AM NITROGLYCERIN SubLingual (Nitroglycerin) 0.4 Mg Tab.subl 0.4 Mg SL PRN Q5MIN PRN Protonix (Pantoprazole Sodium) 40 Mg Tablet.dr 1 Tab PO DAILY TAKE NEXT DOSE TOMORROW 11/14 IN AM Metoprolol Tartrate 25 Mg Tablet 1 Tab PO BID TAKE NEXT DOSE TONIGHT 11/13 AT BEDTIME Acetaminophen 500 Mg Tablet 500 Mg PO PRN Q8HRS PRN Meclizine Hcl 12.5 Mg Tablet 1 Tab PO BID Hydrocodone-Apap 5-325 (Hydrocodone Bit/Acetaminophen) 1 Each Tablet 1 Tab PO Q12HR PRN Stool Softener (Docusate Sodium) 100 Mg Capsule 200 Mg PO HS TAKE NEXT DOSE TONIGHT 11/13 AT BEDTIME Amlodipine Besylate 10 Mg Tablet 5 Mg PO DAILY hold if sbp less than 100 hold if sbp less than 100 Losartan Potassium 100 Mg Tablet 50 Mg PO DAILY TAKE NEXT DOSE TOMORROW 11/14 IN AM Atorvastatin Calcium 40 Mg Tablet 40 Mg PO HS TAKE NEXT DOSE TONIGHT 11/13 AT BEDTIME Isosorbide Mononitrate Er (Isosorbide Mononitrate) 60 Mg Tab.er.24h 60 Mg PO DAILY TAKE NEXT DOSE TOMORROW 11/14 IN AM Allergies Allergies: Coded Allergies: Iodinated Contrast- Oral and IV Dye (Verified Allergy, Severe, Anaphylaxis , 01/11/17) adhesive tape (Verified Allergy, Intermediate, 01/11/17) meperidine (Verified Adverse Reaction, Intermediate, Vomiting, 01/11/17) Physical Exam General: Alert, Oriented X3, Cooperative HEENT: PERRLA Lungs: Other (% decrease some rales in the lower justin) Heart: S1S2, RRR, murmurs Abdomen: Normal bowel sounds, Soft Extremities: Other (2+ pitting edema bilaterally) Vitals Vitals Vital Signs Date Time Temp Pulse Resp B/P (MAP) Pulse Ox O2 Delivery O2 Flow Rate FiO2 03/25/17 08:00 Room Air 03/25/17 07:00 97.4 63 19 173/70 (104) 97 97.4 Labs Labs Laboratory Tests Test 03/25/17 03:50 03/25/17 06:00 03/25/17 08:02 03/25/17 10:25 White Blood Count 8.2 x10^3/uL (4.0-11.0) Red Blood Count 3.44 x10^6/uL (3.50-5.40) Hemoglobin 9.9 g/dL (12.0-15.5) Hematocrit 29.9 % (36.0-47.0) Mean Corpuscular Volume 87 fL (79-100) Mean Corpuscular Hemoglobin 29 pg (25-35) Mean Corpuscular Hemoglobin Concent 33 g/dL (31-37) Red Cell Distribution Width 17.6 % (11.5-14.5) Platelet Count 349 x10^3/uL (140-400) Neutrophils (%) (Auto) 81 % (31-73) Lymphocytes (%) (Auto) 12 % (24-48) Monocytes (%) (Auto) 5 % (0-9) Eosinophils (%) (Auto) 1 % (0-3) Basophils (%) (Auto) 0 % (0-3) Neutrophils # (Auto) 6.6 x10^3uL (1.8-7.7) Lymphocytes # (Auto) 1.0 x10^3/uL (1.0-4.8) Monocytes # (Auto) 0.4 x10^3/uL (0.0-1.1) Eosinophils # (Auto) 0.1 x10^3/uL (0.0-0.7) Basophils # (Auto) 0.0 x10^3/uL (0.0-0.2) Sodium Level 134 mmol/L (136-145) Potassium Level 4.1 mmol/L (3.5-5.1) Chloride Level 100 mmol/L (98-107) Carbon Dioxide Level 29 mmol/L (21-32) Anion Gap 5 (6-14) Blood Urea Nitrogen 43 mg/dL (7-20) Creatinine 1.4 mg/dL (0.6-1.0) Estimated GFR (Cockcroft-Gault) 36.1 BUN/Creatinine Ratio 31 (6-20) Glucose Level 403 mg/dL (70-99) Calcium Level 9.8 mg/dL (8.5-10.1) Total Bilirubin 0.2 mg/dL (0.2-1.0) Aspartate Amino Transf (AST/SGOT) 19 U/L (15-37) Alanine Aminotransferase (ALT/SGPT) 17 U/L (14-59) Alkaline Phosphatase 123 U/L (46-116) Troponin I Quantitative 0.387 ng/mL (0.000-0.055) 5.287 ng/mL (0.000-0.055) Total Protein 8.2 g/dL (6.4-8.2) Albumin 3.0 g/dL (3.4-5.0) Albumin/Globulin Ratio 0.6 (1.0-1.7) CW-Fvg-I-Type Natriuretic Peptide 5262 pg/mL (0-449) Glucose (Fingerstick) 265 mg/dL (70-99) Heparin Anti-Xa Act, Unfractionated 0.24 IU/mL (0.30-0.70) Laboratory Tests Test 03/25/17 03:50 03/25/17 06:00 03/25/17 08:02 03/25/17 10:25 White Blood Count 8.2 x10^3/uL (4.0-11.0) Red Blood Count 3.44 x10^6/uL (3.50-5.40) Hemoglobin 9.9 g/dL (12.0-15.5) Hematocrit 29.9 % (36.0-47.0) Mean Corpuscular Volume 87 fL (79-100) Mean Corpuscular Hemoglobin 29 pg (25-35) Mean Corpuscular Hemoglobin Concent 33 g/dL (31-37) Red Cell Distribution Width 17.6 % (11.5-14.5) Platelet Count 349 x10^3/uL (140-400) Neutrophils (%) (Auto) 81 % (31-73) Lymphocytes (%) (Auto) 12 % (24-48) Monocytes (%) (Auto) 5 % (0-9) Eosinophils (%) (Auto) 1 % (0-3) Basophils (%) (Auto) 0 % (0-3) Neutrophils # (Auto) 6.6 x10^3uL (1.8-7.7) Lymphocytes # (Auto) 1.0 x10^3/uL (1.0-4.8) Monocytes # (Auto) 0.4 x10^3/uL (0.0-1.1) Eosinophils # (Auto) 0.1 x10^3/uL (0.0-0.7) Basophils # (Auto) 0.0 x10^3/uL (0.0-0.2) Sodium Level 134 mmol/L (136-145) Potassium Level 4.1 mmol/L (3.5-5.1) Chloride Level 100 mmol/L (98-107) Carbon Dioxide Level 29 mmol/L (21-32) Anion Gap 5 (6-14) Blood Urea Nitrogen 43 mg/dL (7-20) Creatinine 1.4 mg/dL (0.6-1.0) Estimated GFR (Cockcroft-Gault) 36.1 BUN/Creatinine Ratio 31 (6-20) Glucose Level 403 mg/dL (70-99) Calcium Level 9.8 mg/dL (8.5-10.1) Total Bilirubin 0.2 mg/dL (0.2-1.0) Aspartate Amino Transf (AST/SGOT) 19 U/L (15-37) Alanine Aminotransferase (ALT/SGPT) 17 U/L (14-59) Alkaline Phosphatase 123 U/L (46-116) Troponin I Quantitative 0.387 ng/mL (0.000-0.055) 5.287 ng/mL (0.000-0.055) Total Protein 8.2 g/dL (6.4-8.2) Albumin 3.0 g/dL (3.4-5.0) Albumin/Globulin Ratio 0.6 (1.0-1.7) OD-Dqx-W-Type Natriuretic Peptide 5262 pg/mL (0-449) Glucose (Fingerstick) 265 mg/dL (70-99) Heparin Anti-Xa Act, Unfractionated 0.24 IU/mL (0.30-0.70) VTE Prophylaxis Ordered VTE Prophylaxis Devices: Yes VTE Pharmacological Prophylaxi: Yes Assessment/Plan Assessment/Plan This patient is a very complex situation with multiple medical problems. At this point she appears to be here with a non-STEMI and she continues to deteriorate. She also appears to be in acute on chronic CHF. I will keep her on heparin and consult nephrology to address the kidney issues so that we can get some fluid off of her. The patient is a DNR/DNI. The long-term prognosis is poor for this patient WILLY GURROLA MD Mar 25, 2017 11:55
[2017-03-25] MEDS ORDERED: HYDROcodone/APAP 5/325MG 1 TAB TABLET PO PRN (12:00)
[2017-03-25] MEDS ORDERED: BISACODYL 10 MG SUPP.RECT. RC PRN (12:00)
[2017-03-25] MEDS ORDERED: ACETAMINOPHEN 500 MG TABLET PO PRN (12:00)
[2017-03-25] MEDS ORDERED: BISACODYL 5 MG TABLET.DR. PO PRN (12:00)
[2017-03-25] MEDS: ASPIRIN 325 MG TABLET PO SCH (12:56)
[2017-03-25] MEDS: FUROSEMIDE 20 MG TABLET PO SCH ×2 (12:56→16:55)
[2017-03-25] MEDS: ISOSORBIDE MONONITRATE ER 30 MG TAB.ER.24H PO SCH (12:56)
[2017-03-25] MEDS: LOSARTAN POTASSIUM 50 MG TABLET. PO SCH (12:56)
[2017-03-25] MEDS: CALCIUM CARB/VIT D3 500/200 TABLET. PO SCH (12:57)
[2017-03-25] MEDS: METOPROLOL TART IMMED RELEASE 25 MG TABLET. PO SCH ×2 (12:57→20:21)
[2017-03-25] MEDS: MELOXICAM 7.5 MG TABLET PO SCH (12:58)
[2017-03-25] MEDS: amLODIPine BESYLATE 5 MG TABLET PO SCH (12:58)
[2017-03-25] MEDS: PANTOPRAZOLE 40 MG TABLET.DR. PO SCH (12:58)
[2017-03-25] MEDS: FERROUS SULFATE 325 MG TABLET. PO SCH (13:00)
[2017-03-25] MEDS: MECLIZINE HCL 12.5 MG TABLET. PO SCH ×2 (13:01→20:21)
[2017-03-25] MEDS: POLYETHYLENE GLYCOL 3350 17 GM PACKET. PO SCH (13:01)
[2017-03-25 15:00] VITALS: BP 154/60
--- NOTE | 2017-03-25 15:47 | PDOC2 ---
CONSULT Date of Consult Date of Consult DATE: 03/25/17 TIME: 15:39 Reason for Consult Reason for Consult: CKD III Referring Physician Referring Physician: Dr Cast Identification/Chief Complaint Chief Complaint CP Problems: Source Source: Chart review, Patient History of Present Illness Reason for Visit: as dictated Past Medical History Cardiovascular: CAD, CHF, HTN, [place], Valve insufficiency, Pulmonary hypertension , Other GI: GERD, Gastritis Heme/Onc: Cancer Renal/: Chronic renal insuff Endocrine: Diabetes Past Surgical History Past Surgical History: Pacemaker, Other Family History Family History: No Significant, Diabetes, Hypertension Social History ALCOHOL: none Drugs: None Lives: with Family Current Problem List Problem List Problems Medical Problems: (1) Chest pain Status: Acute (2) NSTEMI (non-ST elevated myocardial infarction) Status: Acute Current Medications Current Medications Current Medications Heparin Sodium (Porcine) (Heparin Sodium) 4,000 unit 1X ONCE IV Last administered on 03/25/17 04:58; Start 03/25/17 at 04:30; Stop 03/25/17 at 05 :07; Status DC Heparin Sodium/ Dextrose 500 ml @ 0 mls/hr CONT PRN IV SEE I/O RECORD Last administered on 03/25/17 05:07; Start 03/25/17 at 04:30 Heparin Sodium (Porcine) (Heparin Sodium) 2,150 unit PRN Q6HRS PRN IV FOR UFH LEVEL LESS THAN 0.2; Start 03/25/17 at 04:30 Ondansetron HCl (Zofran) 4 mg PRN Q8HRS PRN IV NAUSEA/VOMITING; Start at 04:30; Stop 03/26/17 at 04:29 Morphine Sulfate 4 mg PRN Q2HR PRN IV PAIN; Start 03/25/17 at 04:30; Stop at 04:29 Acetaminophen (Tylenol) 650 mg PRN Q4HRS PRN PO FEVER; Start 03/25/17 at 04:30 ; Stop 03/26/17 at 04:29 Nitroglycerin (Nitrostat) 0.4 mg PRN Q5MIN PRN SL CHEST PAIN; Start 03/25/17 at 04:30; Stop 03/25/17 at 12:32; Status DC Insulin Aspart (NovoLOG) 12 units DAILYAC SQ ; Start 03/26/17 at 07:30 Acetaminophen (Tylenol) 500 mg PRN Q8HRS PRN PO PAIN; Start 03/25/17 at 12:00 Amlodipine Besylate (Norvasc) 5 mg DAILY PO Last administered on 03/25/17 12: 58; Start 03/25/17 at 12:30 Aspirin (Derek Aspirin) 325 mg DAILY PO Last administered on 03/25/17 12:56; Start 03/25/17 at 12:30 Atorvastatin Calcium (Lipitor) 40 mg HS PO ; Start 03/25/17 at 21:00 Bisacodyl (Dulcolax Tab) 10 mg PRN DAILY PRN PO CONSTIPATION; Start 03/25/17 at 12:00 Bisacodyl (Dulcolax Supp) 10 mg PRN DAILY PRN RC CONSTIPATION; Start 03/25/17 at 12:00 Calcium/Vitamin D (Oscal D 500mg/ 200uts) 1 tab DAILY PO Last administered on 03/25/17 12:57; Start 03/25/17 at 12:30 Docusate Sodium (Colace) 200 mg HS PO ; Start 03/25/17 at 21:00 Ferrous Sulfate (Feosol) 325 mg DAILYWBKFT PO Last administered on 03/25/17 13:00; Start 03/25/17 at 12:30 Furosemide (Lasix) 60 mg BID94 PO Last administered on 03/25/17 12:56; Start 03/25/17 at 12:30 Acetaminophen/ Hydrocodone Bitart (Lortab 5/325) 1 tab PRN Q12HRS PRN PO PAIN; Start 03/25/17 at 12:00 Meclizine HCl (Antivert) 12.5 mg BID PO Last administered on 03/25/17 13:01; Start 03/25/17 at 12:30 Meloxicam (Mobic) 7.5 mg DAILY PO Last administered on 03/25/17 12:58; Start 03/25/17 at 12:30 Metoprolol Tartrate (Lopressor) 25 mg BID PO Last administered on 03/25/17 12 :57; Start 03/25/17 at 12:30 Nitroglycerin (Nitrostat) 0.4 mg PRN Q5MIN PRN SL CHEST PAIN; Start 03/25/17 at 12:00 Pantoprazole Sodium (Protonix) 40 mg DAILYAC PO Last administered on 12:58; Start 03/25/17 at 12:30 Polyethylene Glycol (miraLAX PACKET) 17 gm DAILY PO Last administered on 13:01; Start 03/25/17 at 12:30 Darbepoetin Pablo (Aranesp) 60 mcg WEEKLYHS SQ ; Start 03/28/17 at 21:00 Non-Formulary Medication 30 unit DAILYWBKFT SQ ; Start 03/26/17 at 08:00; Status UNV Isosorbide Mononitrate (Imdur) 60 mg DAILY PO Last administered on 03/25/17 12:56; Start 03/25/17 at 12:30 Losartan Potassium (Cozaar) 50 mg DAILY PO Last administered on 03/25/17 12: 56; Start 03/25/17 at 12:30 Prednisone (Prednisone) 20 mg BIDACLD PO ; Start 03/25/17 at 16:30 Famotidine (Pepcid) 20 mg BID PO ; Start 03/25/17 at 21:00 Active Scripts Active Reported Furosemide 20 Mg Tablet 60 Mg PO BID am and 1400 Mobic (Meloxicam) 7.5 Mg Tablet 7.5 Mg PO DAILY Aranesp (Darbepoetin Pablo in Polysorbat) 10 Mcg/0.4 Ml Syringe 60 Mcg IJ WEEKLYHS on sunday Tresiba Flextouch U-100 (Insulin Degludec) 100 Unit/1 Ml Insuln.pen 30 Unit SQ DAILYWBKFT Novolog (Insulin Aspart) 100 Unit/1 Ml Vial 100 Unit SQ sliding scale as follows 150-200=2units 201-250=4units 251-300=6units 301-350=8units 351-400=10units >401=12units Novolog (Insulin Aspart) 100 Unit/1 Ml Vial 12 Unit SQ DAILYAC Ferrous Sulfate 325 Mg Tablet 1 Tab PO DAILY Miralax (Polyethylene Glycol 3350) 17 Gm Powd.pack 1 Packet PO DAILY Dulcolax (Bisacodyl) 10 Mg Supp.rect 10 Mg RC PRN DAILY PRN Dulcolax (Bisacodyl) 5 Mg Tablet.dr 10 Mg PO PRN DAILY PRN Coumadin (Warfarin Sodium) 4 Mg Tablet 4 Mg PO DAILY fr Mon til Sat Aspirin 325 Mg Tablet 1 Tab PO DAILY Calcium 500 + Vit D 200 Tablet (Calcium Carbonate/Vitamin D3) 1 Each Tablet 1 Each PO DAILY TAKE NEXT DOSE TOMORROW 11/14 IN AM NITROGLYCERIN SubLingual (Nitroglycerin) 0.4 Mg Tab.subl 0.4 Mg SL PRN Q5MIN PRN Protonix (Pantoprazole Sodium) 40 Mg Tablet.dr 1 Tab PO DAILY TAKE NEXT DOSE TOMORROW 11/14 IN AM Metoprolol Tartrate 25 Mg Tablet 1 Tab PO BID TAKE NEXT DOSE TONIGHT 10 AT BEDTIME Acetaminophen 500 Mg Tablet 500 Mg PO PRN Q8HRS PRN Meclizine Hcl 12.5 Mg Tablet 1 Tab PO BID Hydrocodone-Apap 5-325 (Hydrocodone Bit/Acetaminophen) 1 Each Tablet 1 Tab PO Q12HR PRN Stool Softener (Docusate Sodium) 100 Mg Capsule 200 Mg PO HS TAKE NEXT DOSE TONIGHT 07 AT BEDTIME Amlodipine Besylate 10 Mg Tablet 5 Mg PO DAILY hold if sbp less than 100 hold if sbp less than 100 Losartan Potassium 100 Mg Tablet 50 Mg PO DAILY TAKE NEXT DOSE TOMORROW 11/14 IN AM Atorvastatin Calcium 40 Mg Tablet 40 Mg PO HS TAKE NEXT DOSE TONIGHT 07 AT BEDTIME Isosorbide Mononitrate Er (Isosorbide Mononitrate) 60 Mg Tab.er.24h 60 Mg PO DAILY TAKE NEXT DOSE TOMORROW 11/14 IN AM Allergies Allergies: Coded Allergies: Iodinated Contrast- Oral and IV Dye (Verified Allergy, Severe, Anaphylaxis , 01/11/17) adhesive tape (Verified Allergy, Intermediate, 01/11/17) meperidine (Verified Adverse Reaction, Intermediate, Vomiting, 01/11/17) ROS Review of System GEN: no Fevers no Chills EYES: no new Visual Complaints ENT: no EN Drainage no Hearing deficiets CVS: no Orthopnea + CP RESP: min SOB ? CHANCE GI: + Nausea no Vomiting : no Dysuria no Urgency HEME: no easy bruising no Palp Ly Nodes NEURO no Focal Weakness no Sz PSYCH: no Suicidal Ideation no Depression SKIN: no Rashes ENDO: no Polyuria or Polydipsia no Hot/Cold Intolerance MU SK: + Arthraigia no Myalgia Physical Exam Physical Exam General Appearance: Awake Alert Oriented x 3 In no Distress Eyes: VIsion Unchanged Conjunctiva Normal EN: No EN Drainage Mucous Memb. moist Neck: min JVD + JVP Supple no Thyromegaly CVS: S1 S2 + Murmur No Gallop No Rub tr Edema Resp: no Rales no Rhonchi no Acc. Muscle use GI: BAS +ve NO Bruit Non Tender Non Distended : no CVA tenderness; no Suprapubic Tenderness SKIN: no Rashes Breast Exam deferred Mu.Sk: Adequate ROM no Muscle Atrophy Heme: Unable to palpate Obvious LAD no Splenomegaly NEURO: Good Strength and Tone Cranial Nerves II - XII grossly intact Psych: ? Depressed no Active hallucination Vital Signs Vital Signs Date Time Temp Pulse Resp B/P (MAP) Pulse Ox O2 Delivery O2 Flow Rate FiO2 03/25/17 12:58 72 199/64 03/25/17 11:00 97.5 19 98 Room Air 97.5 Assessment & Plan CKD III (DM/ HTNsive / NS) Current FLuid and E-lyte status does not necessitate emergent need for Dialysis. Will re-evaluate for Dialysis in am IDDM - fci insulin use with ^ed AIC ( uncontrolled) Anemia: started Epogen Transfuse as needed. Wake OK on previous exam Accel. HTN: reviewed home BP meds . Meds were not given until recently. recehck after BP meds restarted. Fl. Overload - / wt gain - agree with lasix gtt; consider RHC - suspect Pulm Pressures are much higher then estimated by ECHO. This may explain a lot of her fluid gain/ wt gain - she is not significantly proteinruic per se NSTEMI - Dr Johnson's note reviewed. Discussed Plan of Care and prognosis etc. at length with family. Labs Labs Laboratory Tests Test 03/25/17 03:50 03/25/17 06:00 03/25/17 08:02 03/25/17 10:25 White Blood Count 8.2 x10^3/uL (4.0-11.0) Red Blood Count 3.44 x10^6/uL (3.50-5.40) Hemoglobin 9.9 g/dL (12.0-15.5) Hematocrit 29.9 % (36.0-47.0) Mean Corpuscular Volume 87 fL (79-100) Mean Corpuscular Hemoglobin 29 pg (25-35) Mean Corpuscular Hemoglobin Concent 33 g/dL (31-37) Red Cell Distribution Width 17.6 % (11.5-14.5) Platelet Count 349 x10^3/uL (140-400) Neutrophils (%) (Auto) 81 % (31-73) Lymphocytes (%) (Auto) 12 % (24-48) Monocytes (%) (Auto) 5 % (0-9) Eosinophils (%) (Auto) 1 % (0-3) Basophils (%) (Auto) 0 % (0-3) Neutrophils # (Auto) 6.6 x10^3uL (1.8-7.7) Lymphocytes # (Auto) 1.0 x10^3/uL (1.0-4.8) Monocytes # (Auto) 0.4 x10^3/uL (0.0-1.1) Eosinophils # (Auto) 0.1 x10^3/uL (0.0-0.7) Basophils # (Auto) 0.0 x10^3/uL (0.0-0.2) Sodium Level 134 mmol/L (136-145) Potassium Level 4.1 mmol/L (3.5-5.1) Chloride Level 100 mmol/L (98-107) Carbon Dioxide Level 29 mmol/L (21-32) Anion Gap 5 (6-14) Blood Urea Nitrogen 43 mg/dL (7-20) Creatinine 1.4 mg/dL (0.6-1.0) Estimated GFR (Cockcroft-Gault) 36.1 BUN/Creatinine Ratio 31 (6-20) Glucose Level 403 mg/dL (70-99) Calcium Level 9.8 mg/dL (8.5-10.1) Total Bilirubin 0.2 mg/dL (0.2-1.0) Aspartate Amino Transf (AST/SGOT) 19 U/L (15-37) Alanine Aminotransferase (ALT/SGPT) 17 U/L (14-59) Alkaline Phosphatase 123 U/L (46-116) Troponin I Quantitative 0.387 ng/mL (0.000-0.055) 5.287 ng/mL (0.000-0.055) Total Protein 8.2 g/dL (6.4-8.2) Albumin 3.0 g/dL (3.4-5.0) Albumin/Globulin Ratio 0.6 (1.0-1.7) KP-Ugj-E-Type Natriuretic Peptide 5262 pg/mL (0-449) Glucose (Fingerstick) 265 mg/dL (70-99) Heparin Anti-Xa Act, Unfractionated 0.24 IU/mL (0.30-0.70) Test 03/25/17 12:08 Glucose (Fingerstick) 151 mg/dL (70-99) Laboratory Tests Test 03/25/17 03:50 03/25/17 06:00 03/25/17 08:02 03/25/17 10:25 White Blood Count 8.2 x10^3/uL (4.0-11.0) Red Blood Count 3.44 x10^6/uL (3.50-5.40) Hemoglobin 9.9 g/dL (12.0-15.5) Hematocrit 29.9 % (36.0-47.0) Mean Corpuscular Volume 87 fL (79-100) Mean Corpuscular Hemoglobin 29 pg (25-35) Mean Corpuscular Hemoglobin Concent 33 g/dL (31-37) Red Cell Distribution Width 17.6 % (11.5-14.5) Platelet Count 349 x10^3/uL (140-400) Neutrophils (%) (Auto) 81 % (31-73) Lymphocytes (%) (Auto) 12 % (24-48) Monocytes (%) (Auto) 5 % (0-9) Eosinophils (%) (Auto) 1 % (0-3) Basophils (%) (Auto) 0 % (0-3) Neutrophils # (Auto) 6.6 x10^3uL (1.8-7.7) Lymphocytes # (Auto) 1.0 x10^3/uL (1.0-4.8) Monocytes # (Auto) 0.4 x10^3/uL (0.0-1.1) Eosinophils # (Auto) 0.1 x10^3/uL (0.0-0.7) Basophils # (Auto) 0.0 x10^3/uL (0.0-0.2) Sodium Level 134 mmol/L (136-145) Potassium Level 4.1 mmol/L (3.5-5.1) Chloride Level 100 mmol/L (98-107) Carbon Dioxide Level 29 mmol/L (21-32) Anion Gap 5 (6-14) Blood Urea Nitrogen 43 mg/dL (7-20) Creatinine 1.4 mg/dL (0.6-1.0) Estimated GFR (Cockcroft-Gault) 36.1 BUN/Creatinine Ratio 31 (6-20) Glucose Level 403 mg/dL (70-99) Calcium Level 9.8 mg/dL (8.5-10.1) Total Bilirubin 0.2 mg/dL (0.2-1.0) Aspartate Amino Transf (AST/SGOT) 19 U/L (15-37) Alanine Aminotransferase (ALT/SGPT) 17 U/L (14-59) Alkaline Phosphatase 123 U/L (46-116) Troponin I Quantitative 0.387 ng/mL (0.000-0.055) 5.287 ng/mL (0.000-0.055) Total Protein 8.2 g/dL (6.4-8.2) Albumin 3.0 g/dL (3.4-5.0) Albumin/Globulin Ratio 0.6 (1.0-1.7) RN-Wur-I-Type Natriuretic Peptide 5262 pg/mL (0-449) Glucose (Fingerstick) 265 mg/dL (70-99) Heparin Anti-Xa Act, Unfractionated 0.24 IU/mL (0.30-0.70) Test 03/25/17 12:08 Glucose (Fingerstick) 151 mg/dL (70-99) JULIO C BARRIOS MD Mar 25, 2017 15:47
[2017-03-25] MEDS ORDERED: MAGNESIUM SULFATE 2GM 50 ML IV PRN (16:00)
[2017-03-25] MEDS ORDERED: DEXTROSE 50% 25 GM / 50ML DISP.SYRIN. IV PRN (16:45)
[2017-03-25] MEDS: predniSONE 20 MG TABLET PO SCH (16:56)
[2017-03-25] MEDS: INSULIN ASPART 300 UNITS/3 ML INSULN.PEN SQ SCH ×2 (17:00)
[2017-03-25 19:55] VITALS: BP 148/67
[2017-03-25] MEDS: FAMOTIDINE 20 MG TABLET. PO SCH (20:21)
[2017-03-25] MEDS: DOCUSATE SODIUM 100 MG CAPSULE. PO SCH (20:21)
[2017-03-25] MEDS: FUROSEMIDE INJ 100 MG in IV NORMAL SALINE 100ML 100 ML IV PRN (20:21)
[2017-03-25] MEDS: ATORVASTATIN CALCIUM 40 MG TABLET. PO SCH (20:21)
[2017-03-25] MEDS ORDERED: DARBEPOETIN ALFA 60 MCG/0.3 ML DISP.SYRIN. SQ SCH (21:00)
[2017-03-25 22:26] VITALS: BP 144/57
[2017-03-26 01:55] LABS: BASO % 0 % (0-3); EOS % 0 % (0-3); HEMATOCRIT 27.9 % (36.0-47.0); HEMOGLOBIN 9.2 g/dL (12.0-15.5); LYMPH # 0.8 x10^3/uL (1.0-4.8); LYMPH % 9 % (24-48); MEAN CORPUSCULAR HEMOGLOBIN 29 pg (25-35); MEAN CORPUSCULAR HGB CONC 33 g/dL (31-37); MEAN CORPUSCULAR VOLUME 87 fL (79-100); MONO % 2 % (0-9); NEUT % 89 % (31-73); PLATELET COUNT 308 x10^3/uL (140-400); RED BLOOD COUNT 3.21 x10^6/uL (3.50-5.40); RED CELL DISTRIBUTION WIDTH 17.3 % (11.5-14.5); WHITE BLOOD COUNT 8.9 x10^3/uL (4.0-11.0)
[2017-03-26 02:33] LABS: ALBUMIN 2.8 g/dL (3.4-5.0); CALCIUM 9.1 mg/dL (8.5-10.1); CREATININE 1.4 mg/dL (0.6-1.0); GFR 36.1; PHOSPHORUS 3.7 mg/dL (2.6-4.7); POTASSIUM 4.7 mmol/L (3.5-5.1)
[2017-03-26 02:34] LABS: ANISOCYTOSIS SLIGHT; HYPOCHROMIA SLIGHT; PLT ESTIMATE ADEQUATE (ADEQUATE)
[2017-03-26 02:35] LABS: TEAR DROP CELLS OCC
[2017-03-26 03:16] VITALS: BP 148/74
[2017-03-26] MEDS: FUROSEMIDE INJ 100 MG in IV NORMAL SALINE 100ML 100 ML IV PRN ×2 (04:44→14:56)
--- NOTE | 2017-03-26 05:57 | CONS ---
DATE OF CONSULTATION: 03/25/2017 HISTORY OF PRESENT ILLNESS: The patient is an 82-year-old female who has had multiple hospitalizations here at this facility mostly for fluid overload. She presented to the ER with new onset chest pain. It initially started off as heartburn and epigastric discomfort that got worse through the night. Her troponins were checked in the ER and were somewhat marginal; however, these have gone up from 0.387-5.287. She is known to have anaphylactic shock associated with IV dye use and hence heart catheterization has not been pursued. She does not have a history of longstanding diabetes and CKD. Her baseline creatinine appears to be 1.4-1.8. She has occasionally been as high as 2.0 and she has required significant diuresis. Her medication list does show she is on Mobic; however, she takes it rarely by her report and is not aware of when she last took it. Her chest in the ER did get better with aspirin, nitro and morphine. Blood pressures are extremely elevated currently. She is known to have significant atherosclerotic vascular disease and possibly left renal artery stenosis also. Blood pressures are now better controlled after home blood pressure medications were restarted. She is chest pain free currently and is feeling much better. She does feel like she has gained some fluid weight as well as some edema. She is noted to have small amounts of JVD as well as significant JVP. Her Lasix drip is being contemplated and I would agree with the same as she is felt to be grossly fluid overloaded. She does have the blood pressure for the same currently also. For rest of details, see electronic records. JULIO C BARRIOS MD DR: ZOE/colten JOB#: [id number] / [id number]
[2017-03-26 07:00] VITALS: BP 160/65
[2017-03-26] MEDS ORDERED: INSULIN ASPART 300 UNITS/3 ML INSULN.PEN SQ SCH (07:30)
[2017-03-26] MEDS: CALCIUM CARB/VIT D3 500/200 TABLET. PO SCH (08:46)
[2017-03-26] MEDS: MELOXICAM 7.5 MG TABLET PO SCH (08:46)
[2017-03-26] MEDS: ASPIRIN 325 MG TABLET PO SCH (08:46)
[2017-03-26] MEDS: PANTOPRAZOLE 40 MG TABLET.DR. PO SCH (08:46)
[2017-03-26] MEDS: LOSARTAN POTASSIUM 50 MG TABLET. PO SCH (08:47)
[2017-03-26] MEDS: predniSONE 20 MG TABLET PO SCH ×2 (08:47→17:44)
[2017-03-26] MEDS: ISOSORBIDE MONONITRATE ER 30 MG TAB.ER.24H PO SCH (08:47)
[2017-03-26] MEDS: amLODIPine BESYLATE 5 MG TABLET PO SCH (08:48)
[2017-03-26] MEDS: FERROUS SULFATE 325 MG TABLET. PO SCH (08:48)
[2017-03-26] MEDS: FAMOTIDINE 20 MG TABLET. PO SCH (08:48)
[2017-03-26] MEDS: METOPROLOL TART IMMED RELEASE 25 MG TABLET. PO SCH ×2 (08:48→20:40)
[2017-03-26] MEDS: POLYETHYLENE GLYCOL 3350 17 GM PACKET. PO SCH (08:49)
[2017-03-26] MEDS: INSULIN DEGLUDEC SQ SCH (08:56)
[2017-03-26] MEDS: INSULIN ASPART 300 UNITS/3 ML INSULN.PEN SQ SCH ×6 (08:57→17:47)
[2017-03-26] MEDS: MECLIZINE HCL 12.5 MG TABLET. PO SCH ×2 (08:59→20:40)
--- NOTE | 2017-03-26 09:40 | PDOC ---
PROGRESS NOTES Subjective Subjective Patient sitting up in chair eating breakfast this AM. States that she was unable to sleep last night and is very tired this AM. Reports mild SOB that is not abnormal for her. Denies any chest discomfort. Feels that her LE edema is decreasing with diuresis. No additional concerns at this time. Objective Objective Vital Signs Date Time Temp Pulse Resp B/P (MAP) Pulse Ox O2 Delivery O2 Flow Rate FiO2 03/26/17 08:48 62 160/65 03/26/17 07:00 97.9 18 93 Room Air 97.9 Intake and Output 03/26/17 06:59 Intake Total 2450 ml Output Total 4100 ml Balance -1650 ml Intake Oral 2450 ml Output Urine Total 4100 ml Physical Exam COMMENT Awake, Alert, Oriented No acute distress No change in cardiac exam + 1 pitting edema in LE b/l Assessment Assessment Problems Medical Problems: (1) Chest pain Status: Acute (2) NSTEMI (non-ST elevated myocardial infarction) Status: Acute Plan Plan of Care This patient is a very complex situation with multiple medical problems. Acute on Chronic CHF- Patient stable at this time. Decreased LE edema with increased diuresis. Will continue on Lasix. Nephrology following for CKDIII. They will reassess need for HD this am. Non-STEMI- Continue on heparin. Continue on BP meds. BP continues to be elevated this AM. Patient is a DNR/DNI. Long-term prognosis is poor. Comment Review of Relevant I have reviewed the following items alejandra (where applicable) has been applied. Labs Laboratory Tests Test 03/25/17 03:50 03/25/17 06:00 03/25/17 08:02 03/25/17 10:25 White Blood Count 8.2 x10^3/uL (4.0-11.0) Red Blood Count 3.44 x10^6/uL (3.50-5.40) Hemoglobin 9.9 g/dL (12.0-15.5) Hematocrit 29.9 % (36.0-47.0) Mean Corpuscular Volume 87 fL (79-100) Mean Corpuscular Hemoglobin 29 pg (25-35) Mean Corpuscular Hemoglobin Concent 33 g/dL (31-37) Red Cell Distribution Width 17.6 % (11.5-14.5) Platelet Count 349 x10^3/uL (140-400) Neutrophils (%) (Auto) 81 % (31-73) Lymphocytes (%) (Auto) 12 % (24-48) Monocytes (%) (Auto) 5 % (0-9) Eosinophils (%) (Auto) 1 % (0-3) Basophils (%) (Auto) 0 % (0-3) Neutrophils # (Auto) 6.6 x10^3uL (1.8-7.7) Lymphocytes # (Auto) 1.0 x10^3/uL (1.0-4.8) Monocytes # (Auto) 0.4 x10^3/uL (0.0-1.1) Eosinophils # (Auto) 0.1 x10^3/uL (0.0-0.7) Basophils # (Auto) 0.0 x10^3/uL (0.0-0.2) Sodium Level 134 mmol/L (136-145) Potassium Level 4.1 mmol/L (3.5-5.1) Chloride Level 100 mmol/L (98-107) Carbon Dioxide Level 29 mmol/L (21-32) Anion Gap 5 (6-14) Blood Urea Nitrogen 43 mg/dL (7-20) Creatinine 1.4 mg/dL (0.6-1.0) Estimated GFR (Cockcroft-Gault) 36.1 BUN/Creatinine Ratio 31 (6-20) Glucose Level 403 mg/dL (70-99) Calcium Level 9.8 mg/dL (8.5-10.1) Total Bilirubin 0.2 mg/dL (0.2-1.0) Aspartate Amino Transf (AST/SGOT) 19 U/L (15-37) Alanine Aminotransferase (ALT/SGPT) 17 U/L (14-59) Alkaline Phosphatase 123 U/L (46-116) Troponin I Quantitative 0.387 ng/mL (0.000-0.055) 5.287 ng/mL (0.000-0.055) Total Protein 8.2 g/dL (6.4-8.2) Albumin 3.0 g/dL (3.4-5.0) Albumin/Globulin Ratio 0.6 (1.0-1.7) LO-Jia-M-Type Natriuretic Peptide 5262 pg/mL (0-449) Glucose (Fingerstick) 265 mg/dL (70-99) Heparin Anti-Xa Act, Unfractionated 0.24 IU/mL (0.30-0.70) Test 03/25/17 12:08 03/25/17 16:10 03/25/17 16:22 03/25/17 20:56 Glucose (Fingerstick) 151 mg/dL (70-99) 207 mg/dL (70-99) 153 mg/dL (70-99) Troponin I Quantitative 6.481 ng/mL (0.000-0.055) Test 03/26/17 01:30 03/26/17 07:40 White Blood Count 8.9 x10^3/uL (4.0-11.0) Red Blood Count 3.21 x10^6/uL (3.50-5.40) Hemoglobin 9.2 g/dL (12.0-15.5) Hematocrit 27.9 % (36.0-47.0) Mean Corpuscular Volume 87 fL (79-100) Mean Corpuscular Hemoglobin 29 pg (25-35) Mean Corpuscular Hemoglobin Concent 33 g/dL (31-37) Red Cell Distribution Width 17.3 % (11.5-14.5) Platelet Count 308 x10^3/uL (140-400) Neutrophils (%) (Auto) 89 % (31-73) Lymphocytes (%) (Auto) 9 % (24-48) Monocytes (%) (Auto) 2 % (0-9) Eosinophils (%) (Auto) 0 % (0-3) Basophils (%) (Auto) 0 % (0-3) Neutrophils # (Auto) 8.0 x10^3uL (1.8-7.7) Lymphocytes # (Auto) 0.8 x10^3/uL (1.0-4.8) Monocytes # (Auto) 0.1 x10^3/uL (0.0-1.1) Eosinophils # (Auto) 0.0 x10^3/uL (0.0-0.7) Basophils # (Auto) 0.0 x10^3/uL (0.0-0.2) Segmented Neutrophils % 89 % (35-66) Lymphocytes % 10 % (24-48) Monocytes % 1 % (0-10) Platelet Estimate Adequate (ADEQUATE) Hypochromasia Slight Anisocytosis Slight Tear Drop Cells Occ Heparin Anti-Xa Act, Unfractionated 0.23 IU/mL (0.30-0.70) Sodium Level 137 mmol/L (136-145) Potassium Level 4.7 mmol/L (3.5-5.1) Chloride Level 101 mmol/L (98-107) Carbon Dioxide Level 28 mmol/L (21-32) Anion Gap 8 (6-14) Blood Urea Nitrogen 43 mg/dL (7-20) Creatinine 1.4 mg/dL (0.6-1.0) Estimated GFR (Cockcroft-Gault) 36.1 Glucose Level 319 mg/dL (70-99) Calcium Level 9.1 mg/dL (8.5-10.1) Phosphorus Level 3.7 mg/dL (2.6-4.7) Magnesium Level 1.9 mg/dL (1.8-2.4) Albumin 2.8 g/dL (3.4-5.0) Glucose (Fingerstick) 280 mg/dL (70-99) Laboratory Tests Test 03/25/17 10:25 03/25/17 12:08 03/25/17 16:10 03/25/17 16:22 Heparin Anti-Xa Act, Unfractionated 0.24 IU/mL (0.30-0.70) Troponin I Quantitative 5.287 ng/mL (0.000-0.055) 6.481 ng/mL (0.000-0.055) Glucose (Fingerstick) 151 mg/dL (70-99) 207 mg/dL (70-99) Test 03/25/17 20:56 03/26/17 01:30 03/26/17 07:40 Glucose (Fingerstick) 153 mg/dL (70-99) 280 mg/dL (70-99) White Blood Count 8.9 x10^3/uL (4.0-11.0) Red Blood Count 3.21 x10^6/uL (3.50-5.40) Hemoglobin 9.2 g/dL (12.0-15.5) Hematocrit 27.9 % (36.0-47.0) Mean Corpuscular Volume 87 fL (79-100) Mean Corpuscular Hemoglobin 29 pg (25-35) Mean Corpuscular Hemoglobin Concent 33 g/dL (31-37) Red Cell Distribution Width 17.3 % (11.5-14.5) Platelet Count 308 x10^3/uL (140-400) Neutrophils (%) (Auto) 89 % (31-73) Lymphocytes (%) (Auto) 9 % (24-48) Monocytes (%) (Auto) 2 % (0-9) Eosinophils (%) (Auto) 0 % (0-3) Basophils (%) (Auto) 0 % (0-3) Neutrophils # (Auto) 8.0 x10^3uL (1.8-7.7) Lymphocytes # (Auto) 0.8 x10^3/uL (1.0-4.8) Monocytes # (Auto) 0.1 x10^3/uL (0.0-1.1) Eosinophils # (Auto) 0.0 x10^3/uL (0.0-0.7) Basophils # (Auto) 0.0 x10^3/uL (0.0-0.2) Segmented Neutrophils % 89 % (35-66) Lymphocytes % 10 % (24-48) Monocytes % 1 % (0-10) Platelet Estimate Adequate (ADEQUATE) Hypochromasia Slight Anisocytosis Slight Tear Drop Cells Occ Heparin Anti-Xa Act, Unfractionated 0.23 IU/mL (0.30-0.70) Sodium Level 137 mmol/L (136-145) Potassium Level 4.7 mmol/L (3.5-5.1) Chloride Level 101 mmol/L (98-107) Carbon Dioxide Level 28 mmol/L (21-32) Anion Gap 8 (6-14) Blood Urea Nitrogen 43 mg/dL (7-20) Creatinine 1.4 mg/dL (0.6-1.0) Estimated GFR (Cockcroft-Gault) 36.1 Glucose Level 319 mg/dL (70-99) Calcium Level 9.1 mg/dL (8.5-10.1) Phosphorus Level 3.7 mg/dL (2.6-4.7) Magnesium Level 1.9 mg/dL (1.8-2.4) Albumin 2.8 g/dL (3.4-5.0) Medications Current Medications Heparin Sodium (Porcine) (Heparin Sodium) 4,000 unit 1X ONCE IV Last administered on 03/25/17 04:58; Start 03/25/17 at 04:30; Stop 03/25/17 at 05 :07; Status DC Heparin Sodium/ Dextrose 500 ml @ 0 mls/hr CONT PRN IV SEE I/O RECORD Last administered on 03/25/17 20:20; Start 03/25/17 at 04:30 Heparin Sodium (Porcine) (Heparin Sodium) 2,150 unit PRN Q6HRS PRN IV FOR UFH LEVEL LESS THAN 0.2; Start 03/25/17 at 04:30 Ondansetron HCl (Zofran) 4 mg PRN Q8HRS PRN IV NAUSEA/VOMITING; Start at 04:30; Stop 03/26/17 at 04:30; Status DC Morphine Sulfate 4 mg PRN Q2HR PRN IV PAIN; Start 03/25/17 at 04:30; Stop at 04:30; Status DC Acetaminophen (Tylenol) 650 mg PRN Q4HRS PRN PO FEVER; Start 03/25/17 at 04:30 ; Stop 03/26/17 at 04:30; Status DC Nitroglycerin (Nitrostat) 0.4 mg PRN Q5MIN PRN SL CHEST PAIN; Start 03/25/17 at 04:30; Stop 03/25/17 at 12:32; Status DC Insulin Aspart (NovoLOG) 12 units DAILYAC SQ ; Start 03/26/17 at 07:30; Stop 03/26/17 at 07:30; Status DC Acetaminophen (Tylenol) 500 mg PRN Q8HRS PRN PO PAIN; Start 03/25/17 at 12:00 Amlodipine Besylate (Norvasc) 5 mg DAILY PO Last administered on 03/26/17 08: 48; Start 03/25/17 at 12:30 Aspirin (Derek Aspirin) 325 mg DAILY PO Last administered on 03/26/17 08:46; Start 03/25/17 at 12:30 Atorvastatin Calcium (Lipitor) 40 mg HS PO Last administered on 03/25/17 20: 21; Start 03/25/17 at 21:00 Bisacodyl (Dulcolax Tab) 10 mg PRN DAILY PRN PO CONSTIPATION; Start 03/25/17 at 12:00 Bisacodyl (Dulcolax Supp) 10 mg PRN DAILY PRN RC CONSTIPATION; Start 03/25/17 at 12:00 Calcium/Vitamin D (Oscal D 500mg/ 200uts) 1 tab DAILY PO Last administered on 03/26/17 08:46; Start 03/25/17 at 12:30 Docusate Sodium (Colace) 200 mg HS PO Last administered on 03/25/17 20:21; Start 03/25/17 at 21:00 Ferrous Sulfate (Feosol) 325 mg DAILYWBKFT PO Last administered on 03/26/17 08:48; Start 03/25/17 at 12:30 Furosemide (Lasix) 60 mg BID94 PO Last administered on 03/25/17 16:55; Start 03/25/17 at 12:30; Stop 03/25/17 at 19:26; Status DC Acetaminophen/ Hydrocodone Bitart (Lortab 5/325) 1 tab PRN Q12HRS PRN PO PAIN; Start 03/25/17 at 12:00 Meclizine HCl (Antivert) 12.5 mg BID PO Last administered on 03/26/17 08:59; Start 03/25/17 at 12:30 Meloxicam (Mobic) 7.5 mg DAILY PO Last administered on 03/26/17 08:46; Start 03/25/17 at 12:30 Metoprolol Tartrate (Lopressor) 25 mg BID PO Last administered on 03/26/17 08 :48; Start 03/25/17 at 12:30 Nitroglycerin (Nitrostat) 0.4 mg PRN Q5MIN PRN SL CHEST PAIN; Start 03/25/17 at 12:00 Pantoprazole Sodium (Protonix) 40 mg DAILYAC PO Last administered on 08:46; Start 03/25/17 at 12:30 Polyethylene Glycol (miraLAX PACKET) 17 gm DAILY PO Last administered on 08:49; Start 03/25/17 at 12:30 Darbepoetin Pablo (Aranesp) 60 mcg WEEKLYHS SQ ; Start 03/28/17 at 21:00 Non-Formulary Medication 30 unit DAILYWBKFT SQ Last administered on 03/26/17 08:56; Start 03/26/17 at 08:00 Isosorbide Mononitrate (Imdur) 60 mg DAILY PO Last administered on 03/26/17 08:47; Start 03/25/17 at 12:30 Losartan Potassium (Cozaar) 50 mg DAILY PO Last administered on 03/26/17 08: 47; Start 03/25/17 at 12:30 Prednisone (Prednisone) 20 mg BIDACLD PO Last administered on 03/26/17 08:47 ; Start 03/25/17 at 16:30 Famotidine (Pepcid) 20 mg BID PO Last administered on 03/26/17 08:48; Start 03/25/17 at 21:00 Darbepoetin Pablo (Aranesp) 60 mcg WEEKLYHS SQ ; Start 03/25/17 at 21:00; Status UNV Magnesium Sulfate/ Dextrose 50 ml @ 25 mls/hr PRN DAILY PRN IV for Mag < 1.7 on am labs; Start 03/25/17 at 16:00 Insulin Aspart (NovoLOG) 0-7 UNITS TIDWMEALS SQ Last administered on 08:58; Start 03/25/17 at 17:00 Dextrose (Dextrose 50%-Water Syringe) 12.5 gm PRN Q15MIN PRN IV SEE COMMENTS; Start 03/25/17 at 16:45 Insulin Aspart (NovoLOG) 12 units TIDWMEALS SQ Last administered on 03/26/17 08:57; Start 03/25/17 at 17:00 Furosemide 100 mg/ Sodium Chloride 100 ml @ 0 mls/hr CONT PRN IV SEE I/O RECORD Last administered on 03/26/17 04:44; Start 03/25/17 at 19:15 Active Scripts Active Reported Furosemide 20 Mg Tablet 60 Mg PO BID am and 1400 Mobic (Meloxicam) 7.5 Mg Tablet 7.5 Mg PO DAILY Aranesp (Darbepoetin Pablo in Polysorbat) 10 Mcg/0.4 Ml Syringe 60 Mcg IJ WEEKLYHS on sunday Tresiba Flextouch U-100 (Insulin Degludec) 100 Unit/1 Ml Insuln.pen 30 Unit SQ DAILYWBKFT Novolog (Insulin Aspart) 100 Unit/1 Ml Vial 100 Unit SQ sliding scale as follows 150-200=2units 201-250=4units 251-300=6units 301-350=8units 351-400=10units >401=12units Novolog (Insulin Aspart) 100 Unit/1 Ml Vial 12 Unit SQ DAILYAC Ferrous Sulfate 325 Mg Tablet 1 Tab PO DAILY Miralax (Polyethylene Glycol 3350) 17 Gm Powd.pack 1 Packet PO DAILY Dulcolax (Bisacodyl) 10 Mg Supp.rect 10 Mg RC PRN DAILY PRN Dulcolax (Bisacodyl) 5 Mg Tablet.dr 10 Mg PO PRN DAILY PRN Coumadin (Warfarin Sodium) 4 Mg Tablet 4 Mg PO DAILY fr Mon til Sat Aspirin 325 Mg Tablet 1 Tab PO DAILY Calcium 500 + Vit D 200 Tablet (Calcium Carbonate/Vitamin D3) 1 Each Tablet 1 Each PO DAILY TAKE NEXT DOSE TOMORROW 11/14 IN AM NITROGLYCERIN SubLingual (Nitroglycerin) 0.4 Mg Tab.subl 0.4 Mg SL PRN Q5MIN PRN Protonix (Pantoprazole Sodium) 40 Mg Tablet.dr 1 Tab PO DAILY TAKE NEXT DOSE TOMORROW 11/14 IN AM Metoprolol Tartrate 25 Mg Tablet 1 Tab PO BID TAKE NEXT DOSE TONIGHT 710 AT BEDTIME Acetaminophen 500 Mg Tablet 500 Mg PO PRN Q8HRS PRN Meclizine Hcl 12.5 Mg Tablet 1 Tab PO BID Hydrocodone-Apap 5-325 (Hydrocodone Bit/Acetaminophen) 1 Each Tablet 1 Tab PO Q12HR PRN Stool Softener (Docusate Sodium) 100 Mg Capsule 200 Mg PO HS TAKE NEXT DOSE TONIGHT 0710 AT BEDTIME Amlodipine Besylate 10 Mg Tablet 5 Mg PO DAILY hold if sbp less than 100 hold if sbp less than 100 Losartan Potassium 100 Mg Tablet 50 Mg PO DAILY TAKE NEXT DOSE TOMORROW 11/14 IN AM Atorvastatin Calcium 40 Mg Tablet 40 Mg PO HS TAKE NEXT DOSE TONIGHT 0710 AT BEDTIME Isosorbide Mononitrate Er (Isosorbide Mononitrate) 60 Mg Tab.er.24h 60 Mg PO DAILY TAKE NEXT DOSE TOMORROW 11/14 IN AM Vitals/I & O Vital Sign - Last 24 Hours 03/25/17 03/25/17 03/25/17 03/25/17 11:00 11:00 12:56 12:56 Temp 97.5 97.5 Pulse 72 72 72 Resp 19 B/P (MAP) 199/64 (109) 196/71 (112) 199/64 199/64 Pulse Ox 98 O2 Delivery Room Air 03/25/17 03/25/17 03/25/17 03/25/17 12:57 12:58 15:00 19:50 Pulse 72 72 67 Resp 18 B/P (MAP) 199/64 199/64 154/60 (91) O2 Delivery Room Air Room Air 03/25/17 03/25/17 03/25/17 03/26/17 19:55 20:21 22:26 03:16 Temp 98.5 98.1 98.3 98.5 98.1 98.3 Pulse 61 61 55 58 Resp 18 18 18 B/P (MAP) 148/67 (94) 148/67 144/57 (86) 148/74 (98) Pulse Ox 94 94 94 O2 Delivery Room Air Room Air 03/26/17 03/26/17 03/26/17 03/26/17 07:00 08:47 08:47 08:48 Temp 97.9 97.9 Pulse 62 62 62 62 Resp 18 B/P (MAP) 160/65 (96) 160/65 160/65 160/65 Pulse Ox 93 O2 Delivery Room Air 03/26/17 08:48 Pulse 62 B/P (MAP) 160/65 Intake and Output 03/25/17 03/25/17 03/26/17 14:59 22:59 06:59 Intake Total 750 ml 1400 ml 300 ml Output Total 500 ml 875 ml 2725 ml Balance 250 ml 525 ml -2425 ml WILLY GURROLA MD Mar 26, 2017 09:40
[2017-03-26 11:00] VITALS: BP 146/52
--- NOTE | 2017-03-26 12:00 | PDOC ---
SUBJECTIVE ROS CKD III Doign better today CVS: ch Orthopnea, no CP RESP: no SOB, ? CHANCE GI: no Nausea, no Vomiting : no Dysuria, no Urgency OBJECTIVE Vital Signs Vital Signs Date Time Temp Pulse Resp B/P (MAP) Pulse Ox O2 Delivery O2 Flow Rate FiO2 03/26/17 11:00 97.5 69 20 146/52 (83) 93 Room Air 97.5 I & 0 Intake and Output 03/26/17 07:00 Intake Total 2450 ml Output Total 4100 ml Balance -1650 ml Intake Oral 2450 ml Output Urine Total 4100 ml PHYSICAL EXAM Physical Exam General Appearance: Awake Alert Oriented x 3 In no Distress Eyes: VIsion Unchanged Conjunctiva Normal EN: No EN Drainage Mucous Memb. moist Neck: min JVD + JVP Supple no Thyromegaly CVS: S1 S2 + Murmur No Gallop No Rub tr Edema Resp: no Rales no Rhonchi no Acc. Muscle use GI: BAS +ve NO Bruit Non Tender Non Distended : no CVA tenderness; no Suprapubic Tenderness Assessment & Plan CKD III (DM/ HTNsive / NS) Current FLuid and E-lyte status does not necessitate emergent need for Dialysis. Will re-evaluate for Dialysis in am . 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 Page OK on previous exam Accel. HTN: reviewed home BP meds . Meds were not given until recently. recehck after BP meds restarted. Fl. Overload - / wt gain - agree with lasix gtt for now; D/w Dr Cast re posibilty of Pulm Pressures being much higher then estimated by ECHO. This may explain her fluid gain/ wt gain - she is not significantly proteinuric per se; Suspect some of this may be exacerbated by NSAID use too NSTEMI - D/w Dr Johnson - conservative mx Discussed Plan of Care and prognosis etc. at length with pt COMMENT/RELEVANT DATA Meds Current Medications Medications (Trade) Dose Ordered Sig/Huyen Start Time Stop Time Status Last Admin Dose Admin Acetaminophen (Tylenol) 500 mg PRN Q8HRS PRN 03/25/17 12:00 Acetaminophen/ Hydrocodone Bitart (Lortab 5/325) 1 tab PRN Q12HRS PRN 03/25/17 12:00 Amlodipine Besylate (Norvasc) 5 mg DAILY 03/25/17 12:30 03/26/17 08:48 5 MG Aspirin (Derek Aspirin) 325 mg DAILY 03/25/17 12:30 03/26/17 08:46 325 MG Atorvastatin Calcium (Lipitor) 40 mg HS 03/25/17 21:00 03/25/17 20:21 40 MG Bisacodyl (Dulcolax Supp) 10 mg PRN DAILY PRN 03/25/17 12:00 Bisacodyl (Dulcolax Tab) 10 mg PRN DAILY PRN 03/25/17 12:00 Calcium/Vitamin D (Oscal D 500mg/ 200uts) 1 tab DAILY 03/25/17 12:30 03/26/17 08:46 1 TAB Darbepoetin Pablo (Aranesp) 60 mcg WEEKLYHS 03/25/17 21:00 UNV Dextrose (Dextrose 50%-Water Syringe) 12.5 gm PRN Q15MIN PRN 03/25/17 16:45 Docusate Sodium (Colace) 200 mg HS 03/25/17 21:00 03/25/17 20:21 200 MG Famotidine (Pepcid) 20 mg BID 03/25/17 21:00 03/26/17 08:48 20 MG Ferrous Sulfate (Feosol) 325 mg DAILYWBKFT 03/25/17 12:30 03/26/17 08:48 325 MG Furosemide (Lasix) 60 mg BID94 03/25/17 12:30 03/25/17 19:26 DC 03/25/17 16:55 60 MG Furosemide 100 mg/ Sodium Chloride 100 ml @ 0 mls/hr CONT PRN 03/25/17 19:15 03/26/17 04:44 10 MLS/HR Heparin Sodium (Porcine) (Heparin Sodium) 2,150 unit PRN Q6HRS PRN 03/25/17 04:30 Heparin Sodium/ Dextrose 500 ml @ 0 mls/hr CONT PRN 03/25/17 04:30 03/25/17 20:20 0 MLS/HR Insulin Aspart (NovoLOG) 12 units TIDWMEALS 03/25/17 17:00 03/26/17 08:57 12 UNITS Isosorbide Mononitrate (Imdur) 60 mg DAILY 03/25/17 12:30 03/26/17 08:47 60 MG Losartan Potassium (Cozaar) 50 mg DAILY 03/25/17 12:30 03/26/17 08:47 50 MG Magnesium Sulfate/ Dextrose 50 ml @ 25 mls/hr PRN DAILY PRN 03/25/17 16:00 Meclizine HCl (Antivert) 12.5 mg BID 03/25/17 12:30 03/26/17 08:59 12.5 MG Meloxicam (Mobic) 7.5 mg DAILY 03/25/17 12:30 03/26/17 08:46 7.5 MG Metoprolol Tartrate (Lopressor) 25 mg BID 03/25/17 12:30 03/26/17 08:48 25 MG Morphine Sulfate 4 mg PRN Q2HR PRN 03/25/17 04:30 03/26/17 04:30 DC Nitroglycerin (Nitrostat) 0.4 mg PRN Q5MIN PRN 03/25/17 12:00 Non-Formulary Medication 30 unit DAILYWBKFT 03/26/17 08:00 03/26/17 08:56 30 UNIT Ondansetron HCl (Zofran) 4 mg PRN Q8HRS PRN 03/25/17 04:30 03/26/17 04:30 DC Pantoprazole Sodium (Protonix) 40 mg DAILYAC 03/25/17 12:30 03/26/17 08:46 40 MG Polyethylene Glycol (miraLAX PACKET) 17 gm DAILY 03/25/17 12:30 03/26/17 08:49 17 GM Prednisone (Prednisone) 20 mg BIDACLD 03/25/17 16:30 03/26/17 08:47 20 MG Lab Laboratory Tests Test 03/25/17 12:08 03/25/17 16:10 03/25/17 16:22 03/25/17 20:56 Glucose (Fingerstick) 151 mg/dL (70-99) 207 mg/dL (70-99) 153 mg/dL (70-99) Troponin I Quantitative 6.481 ng/mL (0.000-0.055) Test 03/26/17 01:30 03/26/17 07:40 03/26/17 09:14 White Blood Count 8.9 x10^3/uL (4.0-11.0) Red Blood Count 3.21 x10^6/uL (3.50-5.40) Hemoglobin 9.2 g/dL (12.0-15.5) Hematocrit 27.9 % (36.0-47.0) Mean Corpuscular Volume 87 fL (79-100) Mean Corpuscular Hemoglobin 29 pg (25-35) Mean Corpuscular Hemoglobin Concent 33 g/dL (31-37) Red Cell Distribution Width 17.3 % (11.5-14.5) Platelet Count 308 x10^3/uL (140-400) Neutrophils (%) (Auto) 89 % (31-73) Lymphocytes (%) (Auto) 9 % (24-48) Monocytes (%) (Auto) 2 % (0-9) Eosinophils (%) (Auto) 0 % (0-3) Basophils (%) (Auto) 0 % (0-3) Neutrophils # (Auto) 8.0 x10^3uL (1.8-7.7) Lymphocytes # (Auto) 0.8 x10^3/uL (1.0-4.8) Monocytes # (Auto) 0.1 x10^3/uL (0.0-1.1) Eosinophils # (Auto) 0.0 x10^3/uL (0.0-0.7) Basophils # (Auto) 0.0 x10^3/uL (0.0-0.2) Segmented Neutrophils % 89 % (35-66) Lymphocytes % 10 % (24-48) Monocytes % 1 % (0-10) Platelet Estimate Adequate (ADEQUATE) Hypochromasia Slight Anisocytosis Slight Tear Drop Cells Occ Heparin Anti-Xa Act, Unfractionated 0.23 IU/mL (0.30-0.70) 0.42 IU/mL (0.30-0.70) Sodium Level 137 mmol/L (136-145) Potassium Level 4.7 mmol/L (3.5-5.1) Chloride Level 101 mmol/L (98-107) Carbon Dioxide Level 28 mmol/L (21-32) Anion Gap 8 (6-14) Blood Urea Nitrogen 43 mg/dL (7-20) Creatinine 1.4 mg/dL (0.6-1.0) Estimated GFR (Cockcroft-Gault) 36.1 Glucose Level 319 mg/dL (70-99) Calcium Level 9.1 mg/dL (8.5-10.1) Phosphorus Level 3.7 mg/dL (2.6-4.7) Magnesium Level 1.9 mg/dL (1.8-2.4) Albumin 2.8 g/dL (3.4-5.0) Glucose (Fingerstick) 280 mg/dL (70-99) JULIO C BARRIOS MD Mar 26, 2017 12:00
[2017-03-26 15:00] VITALS: BP 140/61
[2017-03-26] MEDS: HEPARIN 25,000UTS/500ML PREMIX 500 ML IV PRN (17:40)
[2017-03-26 19:25] VITALS: BP 159/71
[2017-03-26] MEDS: DOCUSATE SODIUM 100 MG CAPSULE. PO SCH (20:40)
[2017-03-26] MEDS: ATORVASTATIN CALCIUM 40 MG TABLET. PO SCH (20:40)
[2017-03-26 23:05] VITALS: BP 183/59
[2017-03-27] MEDS: FUROSEMIDE INJ 100 MG in IV NORMAL SALINE 100ML 100 ML IV PRN (01:11)
[2017-03-27 03:05] VITALS: BP 177/75
[2017-03-27 04:47] LABS: ALBUMIN 2.6 g/dL (3.4-5.0); CALCIUM 9.4 mg/dL (8.5-10.1); CREATININE 1.4 mg/dL (0.6-1.0); GFR 36.1; POTASSIUM 4.1 mmol/L (3.5-5.1)
[2017-03-27 07:00] VITALS: BP 181/56
[2017-03-27] MEDS: MELOXICAM 7.5 MG TABLET PO SCH (09:00)
[2017-03-27] MEDS: MECLIZINE HCL 12.5 MG TABLET. PO SCH ×2 (09:00→20:34)
[2017-03-27] MEDS: ASPIRIN 325 MG TABLET PO SCH (09:04)
[2017-03-27] MEDS: CALCIUM CARB/VIT D3 500/200 TABLET. PO SCH (09:04)
[2017-03-27] MEDS: ISOSORBIDE MONONITRATE ER 30 MG TAB.ER.24H PO SCH (09:05)
[2017-03-27] MEDS: FAMOTIDINE 20 MG TABLET. PO SCH (09:06)
[2017-03-27] MEDS: METOPROLOL TART IMMED RELEASE 25 MG TABLET. PO SCH ×2 (09:06→20:34)
[2017-03-27] MEDS: PANTOPRAZOLE 40 MG TABLET.DR. PO SCH (09:07)
[2017-03-27] MEDS: amLODIPine BESYLATE 5 MG TABLET PO SCH (09:07)
[2017-03-27] MEDS: LOSARTAN POTASSIUM 50 MG TABLET. PO SCH (09:07)
[2017-03-27] MEDS: FERROUS SULFATE 325 MG TABLET. PO SCH (09:07)
[2017-03-27] MEDS: INSULIN DEGLUDEC SQ SCH (09:08)
[2017-03-27] MEDS: POLYETHYLENE GLYCOL 3350 17 GM PACKET. PO SCH (09:08)
[2017-03-27] MEDS: INSULIN ASPART 300 UNITS/3 ML INSULN.PEN SQ SCH ×6 (09:18→17:40)
--- NOTE | 2017-03-27 09:29 | PDOC ---
SUBJECTIVE ROS CKD III Doign better today CVS: no Orthopnea, min CP(yest) RESP: ch SOB, ? CHANCE GI: no Nausea, no Vomiting : no Dysuria, no Urgency - joyce in place OBJECTIVE Vital Signs Vital Signs Date Time Temp Pulse Resp B/P (MAP) Pulse Ox O2 Delivery O2 Flow Rate FiO2 03/27/17 08:00 Room Air 03/27/17 07:00 97.6 57 18 181/56 (97) 96 97.6 I & 0 Intake and Output 03/27/17 06:59 Intake Total 2804 ml Output Total 5375 ml Balance -2571 ml Intake Oral 1220 ml IV Total 1584 ml Output Urine Total 5375 ml PHYSICAL EXAM Physical Exam General Appearance: Awake Alert Oriented x 3 In no Distress Eyes: VIsion Unchanged Conjunctiva Normal EN: No EN Drainage Mucous Memb. moist Neck: no JVD + JVP Supple no Thyromegaly CVS: S1 S2 soft Murmur No Gallop No Rub no Edema Resp: no Rales no Rhonchi no Acc. Muscle use GI: BS +ve NO Bruit Non Tender Non Distended : no CVA tenderness; no Suprapubic Tenderness Assessment & Plan CKD III (DM/ HTNsive / NS) creat at or close to baseline IDDM - senior living insulin use with ^ed AIC ( uncontrolled based on most recent A1c) ; FSBS remain ^ed Anemia: started Epogen Transfuse as needed. Iron OK on previous exam Accel. HTN: reviewed home BP meds . ^ ARB forn ow; defer to Dr Cast to optimzie further from cardiac standpoint Fl. Overload - / wt gain - agree with lasix gtt for now; transition to PO BUMEX 1mg BID once CHF is better NSTEMI - D/w Dr Johnson - conservative mx Discussed Plan of Care and prognosis etc. at length with pt COMMENT/RELEVANT DATA Meds Current Medications Medications (Trade) Dose Ordered Sig/Huyen Start Time Stop Time Status Last Admin Dose Admin Acetaminophen (Tylenol) 500 mg PRN Q8HRS PRN 03/25/17 12:00 Acetaminophen/ Hydrocodone Bitart (Lortab 5/325) 1 tab PRN Q12HRS PRN 03/25/17 12:00 Amlodipine Besylate (Norvasc) 5 mg DAILY 03/25/17 12:30 03/26/17 08:48 5 MG Aspirin (Derek Aspirin) 325 mg DAILY 03/25/17 12:30 03/26/17 08:46 325 MG Atorvastatin Calcium (Lipitor) 40 mg HS 03/25/17 21:00 03/26/17 20:40 40 MG Bisacodyl (Dulcolax Supp) 10 mg PRN DAILY PRN 03/25/17 12:00 Bisacodyl (Dulcolax Tab) 10 mg PRN DAILY PRN 03/25/17 12:00 Calcium/Vitamin D (Oscal D 500mg/ 200uts) 1 tab DAILY 03/25/17 12:30 03/26/17 08:46 1 TAB Darbepoetin Pablo (Aranesp) 60 mcg WEEKLYHS 03/25/17 21:00 UNV Dextrose (Dextrose 50%-Water Syringe) 12.5 gm PRN Q15MIN PRN 03/25/17 16:45 Docusate Sodium (Colace) 200 mg HS 03/25/17 21:00 03/26/17 20:40 200 MG Famotidine (Pepcid) 20 mg DAILY 03/27/17 09:00 Ferrous Sulfate (Feosol) 325 mg DAILYWBKFT 03/25/17 12:30 03/26/17 08:48 325 MG Furosemide (Lasix) 60 mg BID94 03/25/17 12:30 03/25/17 19:26 DC 03/25/17 16:55 60 MG Furosemide 100 mg/ Sodium Chloride 100 ml @ 0 mls/hr CONT PRN 03/25/17 19:15 03/27/17 01:11 10 MLS/HR Heparin Sodium (Porcine) (Heparin Sodium) 2,150 unit PRN Q6HRS PRN 03/25/17 04:30 Heparin Sodium/ Dextrose 500 ml @ 0 mls/hr CONT PRN 03/25/17 04:30 03/26/17 17:40 0 MLS/HR Insulin Aspart (NovoLOG) 12 units TIDWMEALS 03/25/17 17:00 03/26/17 17:47 12 UNITS Isosorbide Mononitrate (Imdur) 60 mg DAILY 03/25/17 12:30 03/26/17 08:47 60 MG Losartan Potassium (Cozaar) 50 mg DAILY 03/25/17 12:30 03/26/17 08:47 50 MG Magnesium Sulfate/ Dextrose 50 ml @ 25 mls/hr PRN DAILY PRN 03/25/17 16:00 Meclizine HCl (Antivert) 12.5 mg BID 03/25/17 12:30 03/26/17 20:40 12.5 MG Meloxicam (Mobic) 7.5 mg DAILY 03/25/17 12:30 03/26/17 08:46 7.5 MG Metoprolol Tartrate (Lopressor) 25 mg BID 03/25/17 12:30 03/26/17 20:40 25 MG Morphine Sulfate 4 mg PRN Q2HR PRN 03/25/17 04:30 03/26/17 04:30 DC Nitroglycerin (Nitrostat) 0.4 mg PRN Q5MIN PRN 03/25/17 12:00 Non-Formulary Medication 30 unit DAILYWBKFT 03/26/17 08:00 03/26/17 08:56 30 UNIT Ondansetron HCl (Zofran) 4 mg PRN Q8HRS PRN 03/25/17 04:30 03/26/17 04:30 DC Pantoprazole Sodium (Protonix) 40 mg DAILYAC 03/25/17 12:30 03/26/17 08:46 40 MG Polyethylene Glycol (miraLAX PACKET) 17 gm DAILY 03/25/17 12:30 03/26/17 08:49 17 GM Prednisone (Prednisone) 20 mg BIDACLD 03/25/17 16:30 03/26/17 17:44 20 MG Lab Laboratory Tests Test 03/26/17 11:54 03/26/17 15:00 03/26/17 16:38 03/26/17 20:38 Glucose (Fingerstick) 300 mg/dL (70-99) 278 mg/dL (70-99) 286 mg/dL (70-99) Heparin Anti-Xa Act, Unfractionated 0.33 IU/mL (0.30-0.70) Test 03/27/17 03:55 03/27/17 07:54 Heparin Anti-Xa Act, Unfractionated 0.36 IU/mL (0.30-0.70) Sodium Level 134 mmol/L (136-145) Potassium Level 4.1 mmol/L (3.5-5.1) Chloride Level 97 mmol/L (98-107) Carbon Dioxide Level 29 mmol/L (21-32) Anion Gap 8 (6-14) Blood Urea Nitrogen 50 mg/dL (7-20) Creatinine 1.4 mg/dL (0.6-1.0) Estimated GFR (Cockcroft-Gault) 36.1 Glucose Level 385 mg/dL (70-99) Calcium Level 9.4 mg/dL (8.5-10.1) Phosphorus Level 3.0 mg/dL (2.6-4.7) Magnesium Level 2.0 mg/dL (1.8-2.4) Albumin 2.6 g/dL (3.4-5.0) Glucose (Fingerstick) 301 mg/dL (70-99) JULIO C BARRIOS MD Mar 27, 2017 09:29
--- NOTE | 2017-03-27 10:35 | PDOC ---
PROGRESS NOTES Subjective Subjective Patient doing well this AM. Sitting up comfortable in chair. New bradycardia noted today; not present since admission. HRs in the 40s. Denies any chest discomfort. Reports mild SOB that is not abnormal for her. LE edema continues to decrease with diuresis. Patient c/o hematoma on R acosta. Reports that she hit her acosta over the weekend and had a bruise from this incident. She noticed the "knot" on her R acosta yesterday and placed ice on it. Does not feel that it has grown much since yesterday. No additional concerns at this time. Objective Objective Vital Signs Date Time Temp Pulse Resp B/P (MAP) Pulse Ox O2 Delivery O2 Flow Rate FiO2 03/27/17 09:29 Room Air 03/27/17 09:07 57 181/56 03/27/17 07:00 97.6 18 96 97.6 Intake and Output 03/27/17 06:59 Intake Total 2804 ml Output Total 5375 ml Balance -2571 ml Intake Oral 1220 ml IV Total 1584 ml Output Urine Total 5375 ml Physical Exam COMMENT Alert, Awake, Oriented No Acute Distress No changes in cardiac exam Lungs CTAB 0-1 edema in LE b/l, improving Medium-sized round hematoma on middle right acosta; stable. Does not appear to be growing Assessment Assessment Problems Medical Problems: (1) Chest pain Status: Acute (2) NSTEMI (non-ST elevated myocardial infarction) Status: Acute Plan Plan of Care This patient is a very complex situation with multiple medical problems. Acute on Chronic CHF- Patient stable at this time. Decreased LE edema with increased diuresis. Will continue on Lasix. Agree with plan to transition to PO Bumex 1 mg BID once CH is better. Nephrology following for CKDIII. No indication for HD at this time. Non-STEMI- Will d/c heparin today. Continue on current BP meds. BP continues to be elevated this AM. Increased ARB for continued elevated BP. Patient is a DNR/ DNI. Long-term prognosis is poor. Due to this, will proceed with conservative medical management at this time vs. heart catheterization. Discussed plan with patient who is in agreement. R Acosta Hematoma- Will d/c heparin today. Continue to monitor for improvement Comment Review of Relevant I have reviewed the following items alejandra (where applicable) has been applied. Labs Laboratory Tests Test 03/25/17 12:08 03/25/17 16:10 03/25/17 16:22 03/25/17 20:56 Glucose (Fingerstick) 151 mg/dL (70-99) 207 mg/dL (70-99) 153 mg/dL (70-99) Troponin I Quantitative 6.481 ng/mL (0.000-0.055) Test 03/26/17 01:30 03/26/17 07:40 03/26/17 09:14 03/26/17 11:54 White Blood Count 8.9 x10^3/uL (4.0-11.0) Red Blood Count 3.21 x10^6/uL (3.50-5.40) Hemoglobin 9.2 g/dL (12.0-15.5) Hematocrit 27.9 % (36.0-47.0) Mean Corpuscular Volume 87 fL (79-100) Mean Corpuscular Hemoglobin 29 pg (25-35) Mean Corpuscular Hemoglobin Concent 33 g/dL (31-37) Red Cell Distribution Width 17.3 % (11.5-14.5) Platelet Count 308 x10^3/uL (140-400) Neutrophils (%) (Auto) 89 % (31-73) Lymphocytes (%) (Auto) 9 % (24-48) Monocytes (%) (Auto) 2 % (0-9) Eosinophils (%) (Auto) 0 % (0-3) Basophils (%) (Auto) 0 % (0-3) Neutrophils # (Auto) 8.0 x10^3uL (1.8-7.7) Lymphocytes # (Auto) 0.8 x10^3/uL (1.0-4.8) Monocytes # (Auto) 0.1 x10^3/uL (0.0-1.1) Eosinophils # (Auto) 0.0 x10^3/uL (0.0-0.7) Basophils # (Auto) 0.0 x10^3/uL (0.0-0.2) Segmented Neutrophils % 89 % (35-66) Lymphocytes % 10 % (24-48) Monocytes % 1 % (0-10) Platelet Estimate Adequate (ADEQUATE) Hypochromasia Slight Anisocytosis Slight Tear Drop Cells Occ Heparin Anti-Xa Act, Unfractionated 0.23 IU/mL (0.30-0.70) 0.42 IU/mL (0.30-0.70) Sodium Level 137 mmol/L (136-145) Potassium Level 4.7 mmol/L (3.5-5.1) Chloride Level 101 mmol/L (98-107) Carbon Dioxide Level 28 mmol/L (21-32) Anion Gap 8 (6-14) Blood Urea Nitrogen 43 mg/dL (7-20) Creatinine 1.4 mg/dL (0.6-1.0) Estimated GFR (Cockcroft-Gault) 36.1 Glucose Level 319 mg/dL (70-99) Calcium Level 9.1 mg/dL (8.5-10.1) Phosphorus Level 3.7 mg/dL (2.6-4.7) Magnesium Level 1.9 mg/dL (1.8-2.4) Albumin 2.8 g/dL (3.4-5.0) Glucose (Fingerstick) 280 mg/dL (70-99) 300 mg/dL (70-99) Test 03/26/17 15:00 03/26/17 16:38 03/26/17 20:38 03/27/17 03:55 Heparin Anti-Xa Act, Unfractionated 0.33 IU/mL (0.30-0.70) 0.36 IU/mL (0.30-0.70) Glucose (Fingerstick) 278 mg/dL (70-99) 286 mg/dL (70-99) Sodium Level 134 mmol/L (136-145) Potassium Level 4.1 mmol/L (3.5-5.1) Chloride Level 97 mmol/L (98-107) Carbon Dioxide Level 29 mmol/L (21-32) Anion Gap 8 (6-14) Blood Urea Nitrogen 50 mg/dL (7-20) Creatinine 1.4 mg/dL (0.6-1.0) Estimated GFR (Cockcroft-Gault) 36.1 Glucose Level 385 mg/dL (70-99) Calcium Level 9.4 mg/dL (8.5-10.1) Phosphorus Level 3.0 mg/dL (2.6-4.7) Magnesium Level 2.0 mg/dL (1.8-2.4) Albumin 2.6 g/dL (3.4-5.0) Test 03/27/17 07:54 Glucose (Fingerstick) 301 mg/dL (70-99) Laboratory Tests Test 03/26/17 11:54 03/26/17 15:00 03/26/17 16:38 03/26/17 20:38 Glucose (Fingerstick) 300 mg/dL (70-99) 278 mg/dL (70-99) 286 mg/dL (70-99) Heparin Anti-Xa Act, Unfractionated 0.33 IU/mL (0.30-0.70) Test 03/27/17 03:55 03/27/17 07:54 Heparin Anti-Xa Act, Unfractionated 0.36 IU/mL (0.30-0.70) Sodium Level 134 mmol/L (136-145) Potassium Level 4.1 mmol/L (3.5-5.1) Chloride Level 97 mmol/L (98-107) Carbon Dioxide Level 29 mmol/L (21-32) Anion Gap 8 (6-14) Blood Urea Nitrogen 50 mg/dL (7-20) Creatinine 1.4 mg/dL (0.6-1.0) Estimated GFR (Cockcroft-Gault) 36.1 Glucose Level 385 mg/dL (70-99) Calcium Level 9.4 mg/dL (8.5-10.1) Phosphorus Level 3.0 mg/dL (2.6-4.7) Magnesium Level 2.0 mg/dL (1.8-2.4) Albumin 2.6 g/dL (3.4-5.0) Glucose (Fingerstick) 301 mg/dL (70-99) Medications Current Medications Heparin Sodium (Porcine) (Heparin Sodium) 4,000 unit 1X ONCE IV Last administered on 03/25/17 04:58; Start 03/25/17 at 04:30; Stop 03/25/17 at 05 :07; Status DC Heparin Sodium/ Dextrose 500 ml @ 0 mls/hr CONT PRN IV SEE I/O RECORD Last administered on 03/26/17 17:40; Start 03/25/17 at 04:30 Heparin Sodium (Porcine) (Heparin Sodium) 2,150 unit PRN Q6HRS PRN IV FOR UFH LEVEL LESS THAN 0.2; Start 03/25/17 at 04:30 Ondansetron HCl (Zofran) 4 mg PRN Q8HRS PRN IV NAUSEA/VOMITING; Start at 04:30; Stop 03/26/17 at 04:30; Status DC Morphine Sulfate 4 mg PRN Q2HR PRN IV PAIN; Start 03/25/17 at 04:30; Stop at 04:30; Status DC Acetaminophen (Tylenol) 650 mg PRN Q4HRS PRN PO FEVER; Start 03/25/17 at 04:30 ; Stop 03/26/17 at 04:30; Status DC Nitroglycerin (Nitrostat) 0.4 mg PRN Q5MIN PRN SL CHEST PAIN; Start 03/25/17 at 04:30; Stop 03/25/17 at 12:32; Status DC Insulin Aspart (NovoLOG) 12 units DAILYAC SQ ; Start 03/26/17 at 07:30; Stop 03/26/17 at 07:30; Status DC Acetaminophen (Tylenol) 500 mg PRN Q8HRS PRN PO PAIN; Start 03/25/17 at 12:00 Amlodipine Besylate (Norvasc) 5 mg DAILY PO Last administered on 03/27/17 09: 07; Start 03/25/17 at 12:30 Aspirin (Derek Aspirin) 325 mg DAILY PO Last administered on 03/27/17 09:04; Start 03/25/17 at 12:30 Atorvastatin Calcium (Lipitor) 40 mg HS PO Last administered on 03/26/17 20: 40; Start 03/25/17 at 21:00 Bisacodyl (Dulcolax Tab) 10 mg PRN DAILY PRN PO CONSTIPATION; Start 03/25/17 at 12:00 Bisacodyl (Dulcolax Supp) 10 mg PRN DAILY PRN RC CONSTIPATION; Start 03/25/17 at 12:00 Calcium/Vitamin D (Oscal D 500mg/ 200uts) 1 tab DAILY PO Last administered on 03/27/17 09:04; Start 03/25/17 at 12:30 Docusate Sodium (Colace) 200 mg HS PO Last administered on 03/26/17 20:40; Start 03/25/17 at 21:00 Ferrous Sulfate (Feosol) 325 mg DAILYWBKFT PO Last administered on 03/27/17 09:07; Start 03/25/17 at 12:30 Furosemide (Lasix) 60 mg BID94 PO Last administered on 03/25/17 16:55; Start 03/25/17 at 12:30; Stop 03/25/17 at 19:26; Status DC Acetaminophen/ Hydrocodone Bitart (Lortab 5/325) 1 tab PRN Q12HRS PRN PO PAIN; Start 03/25/17 at 12:00 Meclizine HCl (Antivert) 12.5 mg BID PO Last administered on 03/26/17 20:40; Start 03/25/17 at 12:30 Meloxicam (Mobic) 7.5 mg DAILY PO Last administered on 03/26/17 08:46; Start 03/25/17 at 12:30 Metoprolol Tartrate (Lopressor) 25 mg BID PO Last administered on 03/27/17 09 :06; Start 03/25/17 at 12:30 Nitroglycerin (Nitrostat) 0.4 mg PRN Q5MIN PRN SL CHEST PAIN; Start 03/25/17 at 12:00 Pantoprazole Sodium (Protonix) 40 mg DAILYAC PO Last administered on 09:07; Start 03/25/17 at 12:30 Polyethylene Glycol (miraLAX PACKET) 17 gm DAILY PO Last administered on 09:08; Start 03/25/17 at 12:30 Darbepoetin Pablo (Aranesp) 60 mcg WEEKLYHS SQ ; Start 03/28/17 at 21:00 Non-Formulary Medication 30 unit DAILYWBKFT SQ Last administered on 03/27/17 09:08; Start 03/26/17 at 08:00 Isosorbide Mononitrate (Imdur) 60 mg DAILY PO Last administered on 03/27/17 09:05; Start 03/25/17 at 12:30 Losartan Potassium (Cozaar) 50 mg DAILY PO Last administered on 03/27/17 09: 07; Start 03/25/17 at 12:30; Stop 03/27/17 at 09:29; Status DC Prednisone (Prednisone) 20 mg BIDACLD PO Last administered on 03/26/17 17:44 ; Start 03/25/17 at 16:30 Famotidine (Pepcid) 20 mg BID PO Last administered on 03/26/17 08:48; Start 03/25/17 at 21:00; Stop 03/26/17 at 13:06; Status DC Darbepoetin Pablo (Aranesp) 60 mcg WEEKLYHS SQ ; Start 03/25/17 at 21:00; Status UNV Magnesium Sulfate/ Dextrose 50 ml @ 25 mls/hr PRN DAILY PRN IV for Mag < 1.7 on am labs; Start 03/25/17 at 16:00 Insulin Aspart (NovoLOG) 0-7 UNITS TIDWMEALS SQ Last administered on 09:19; Start 03/25/17 at 17:00 Dextrose (Dextrose 50%-Water Syringe) 12.5 gm PRN Q15MIN PRN IV SEE COMMENTS; Start 03/25/17 at 16:45 Insulin Aspart (NovoLOG) 12 units TIDWMEALS SQ Last administered on 03/27/17 09:18; Start 03/25/17 at 17:00 Furosemide 100 mg/ Sodium Chloride 100 ml @ 0 mls/hr CONT PRN IV SEE I/O RECORD Last administered on 03/27/17 01:11; Start 03/25/17 at 19:15 Famotidine (Pepcid) 20 mg DAILY PO Last administered on 03/27/17 09:06; Start 03/27/17 at 09:00 Losartan Potassium (Cozaar) 100 mg DAILY PO ; Start 03/28/17 at 09:00 Active Scripts Active Reported Furosemide 20 Mg Tablet 60 Mg PO BID am and 1400 Mobic (Meloxicam) 7.5 Mg Tablet 7.5 Mg PO DAILY Aranesp (Darbepoetin Pablo in Polysorbat) 10 Mcg/0.4 Ml Syringe 60 Mcg IJ WEEKLYHS on sunday Tresiba Flextouch U-100 (Insulin Degludec) 100 Unit/1 Ml Insuln.pen 30 Unit SQ DAILYWBKFT Novolog (Insulin Aspart) 100 Unit/1 Ml Vial 100 Unit SQ sliding scale as follows 150-200=2units 201-250=4units 251-300=6units 301-350=8units 351-400=10units >401=12units Novolog (Insulin Aspart) 100 Unit/1 Ml Vial 12 Unit SQ DAILYAC Ferrous Sulfate 325 Mg Tablet 1 Tab PO DAILY Miralax (Polyethylene Glycol 3350) 17 Gm Powd.pack 1 Packet PO DAILY Dulcolax (Bisacodyl) 10 Mg Supp.rect 10 Mg RC PRN DAILY PRN Dulcolax (Bisacodyl) 5 Mg Tablet.dr 10 Mg PO PRN DAILY PRN Coumadin (Warfarin Sodium) 4 Mg Tablet 4 Mg PO DAILY fr Mon til Sat Aspirin 325 Mg Tablet 1 Tab PO DAILY Calcium 500 + Vit D 200 Tablet (Calcium Carbonate/Vitamin D3) 1 Each Tablet 1 Each PO DAILY TAKE NEXT DOSE TOMORROW 11/14 IN AM NITROGLYCERIN SubLingual (Nitroglycerin) 0.4 Mg Tab.subl 0.4 Mg SL PRN Q5MIN PRN Protonix (Pantoprazole Sodium) 40 Mg Tablet.dr 1 Tab PO DAILY TAKE NEXT DOSE TOMORROW 11/14 IN AM Metoprolol Tartrate 25 Mg Tablet 1 Tab PO BID TAKE NEXT DOSE TONIGHT 710 AT BEDTIME Acetaminophen 500 Mg Tablet 500 Mg PO PRN Q8HRS PRN Meclizine Hcl 12.5 Mg Tablet 1 Tab PO BID Hydrocodone-Apap 5-325 (Hydrocodone Bit/Acetaminophen) 1 Each Tablet 1 Tab PO Q12HR PRN Stool Softener (Docusate Sodium) 100 Mg Capsule 200 Mg PO HS TAKE NEXT DOSE TONIGHT 07 AT BEDTIME Amlodipine Besylate 10 Mg Tablet 5 Mg PO DAILY hold if sbp less than 100 hold if sbp less than 100 Losartan Potassium 100 Mg Tablet 50 Mg PO DAILY TAKE NEXT DOSE TOMORROW 11/14 IN AM Atorvastatin Calcium 40 Mg Tablet 40 Mg PO HS TAKE NEXT DOSE TONIGHT 07 AT BEDTIME Isosorbide Mononitrate Er (Isosorbide Mononitrate) 60 Mg Tab.er.24h 60 Mg PO DAILY TAKE NEXT DOSE TOMORROW 11/14 IN AM Vitals/I & O Vital Sign - Last 24 Hours 03/26/17 03/26/17 03/26/17 03/26/17 11:00 15:00 19:25 20:00 Temp 97.5 97.2 97.8 97.5 97.2 97.8 Pulse 69 74 61 Resp 20 20 20 B/P (MAP) 146/52 (83) 140/61 (87) 159/71 (100) Pulse Ox 93 94 97 O2 Delivery Room Air Room Air Room Air Room Air 03/26/17 03/26/17 03/27/17 03/27/17 20:40 23:05 03:05 07:00 Temp 98.6 97.7 97.6 98.6 97.7 97.6 Pulse 61 61 65 57 Resp 18 18 18 B/P (MAP) 159/71 183/59 (100) 177/75 (109) 181/56 (97) Pulse Ox 97 98 96 O2 Delivery Room Air Room Air Room Air 03/27/17 03/27/17 03/27/17 03/27/17 08:00 09:05 09:06 09:07 Pulse 57 57 57 B/P (MAP) 181/56 181/56 181/56 O2 Delivery Room Air 03/27/17 03/27/17 09:07 09:29 Pulse 57 B/P (MAP) 181/56 O2 Delivery Room Air Intake and Output 03/26/17 03/26/17 03/27/17 14:59 22:59 06:59 Intake Total 660 ml 2144 ml Output Total 1325 ml 1000 ml 3050 ml Balance -1325 ml -340 ml -906 ml WILLY GURROLA MD Mar 27, 2017 10:35
[2017-03-27 11:00] VITALS: BP 140/39
[2017-03-27] MEDS: predniSONE 20 MG TABLET PO SCH (11:30)
[2017-03-27] MEDS ORDERED: BUME1TAB PO (13:17)
[2017-03-27 14:58] VITALS: BP 125/42
[2017-03-27] MEDS ORDERED: BISACODYL 10 MG SUPP.RECT. PR PRN (15:45)
[2017-03-27 16:43] LABS: INR 1.3 (0.8-1.1); PROTHROMBIN TIME PATIENT 15.8 SEC (11.7-14.0)
[2017-03-27] MEDS ORDERED: WARFARIN 5 MG TABLET. PO ONE (17:00)
[2017-03-27] MEDS: BUMETANIDE 1 MG TABLET. PO SCH (17:37)
[2017-03-27 19:15] VITALS: BP 131/45
[2017-03-27] MEDS: DOCUSATE SODIUM 100 MG CAPSULE. PO SCH (20:33)
[2017-03-27] MEDS: ATORVASTATIN CALCIUM 40 MG TABLET. PO SCH (20:34)
[2017-03-27 23:00] VITALS: BP 151/57
[2017-03-28 02:28] VITALS: BP 165/62
[2017-03-28 06:04] LABS: ALBUMIN 2.6 g/dL (3.4-5.0); CALCIUM 9.6 mg/dL (8.5-10.1); CREATININE 1.5 mg/dL (0.6-1.0); GFR 33.3; MAGNESIUM 2.2 mg/dL (1.8-2.4); PHOSPHORUS 2.4 mg/dL (2.6-4.7)
[2017-03-28 07:20] VITALS: BP 161/48
[2017-03-28] MEDS: INSULIN ASPART 300 UNITS/3 ML INSULN.PEN SQ SCH ×4 (08:00→12:23)
[2017-03-28] MEDS ORDERED: LOSARTAN POTASSIUM 50 MG TABLET. PO SCH (09:00)
[2017-03-28] MEDS ORDERED: predniSONE 5 MG TABLET PO SCH (09:00)
[2017-03-28] MEDS: POLYETHYLENE GLYCOL 3350 17 GM PACKET. PO SCH (09:19)
[2017-03-28] MEDS: amLODIPine BESYLATE 5 MG TABLET PO SCH (09:20)
[2017-03-28] MEDS: MELOXICAM 7.5 MG TABLET PO SCH (09:20)
[2017-03-28] MEDS: BUMETANIDE 1 MG TABLET. PO SCH ×2 (09:22→16:26)
[2017-03-28] MEDS: FERROUS SULFATE 325 MG TABLET. PO SCH (09:23)
[2017-03-28] MEDS: CALCIUM CARB/VIT D3 500/200 TABLET. PO SCH (09:23)
[2017-03-28] MEDS: FAMOTIDINE 20 MG TABLET. PO SCH (09:23)
[2017-03-28] MEDS: ISOSORBIDE MONONITRATE ER 30 MG TAB.ER.24H PO SCH (09:24)
[2017-03-28] MEDS: MECLIZINE HCL 12.5 MG TABLET. PO SCH (09:24)
[2017-03-28] MEDS: PANTOPRAZOLE 40 MG TABLET.DR. PO SCH (09:25)
[2017-03-28] MEDS: ASPIRIN 325 MG TABLET PO SCH (09:25)
[2017-03-28] MEDS: METOPROLOL TART IMMED RELEASE 25 MG TABLET. PO SCH (09:25)
[2017-03-28] MEDS: INSULIN DEGLUDEC SQ SCH (09:35)
[2017-03-28 09:55] LABS: INR 1.4 (0.8-1.1); PROTHROMBIN TIME PATIENT 16.1 SEC (11.7-14.0)
[2017-03-28 10:32] VITALS: BP 126/32
--- NOTE | 2017-03-28 12:44 | PDOC ---
SUBJECTIVE ROS CKD III doing well, thinks the Bumex is working better CVS: no Orthopnea, no CP RESP: no SOB, no CHANCE GI: no Nausea, no Vomiting : no Dysuria, no Urgency OBJECTIVE Vital Signs Vital Signs Date Time Temp Pulse Resp B/P (MAP) Pulse Ox O2 Delivery O2 Flow Rate FiO2 03/28/17 10:32 97.3 59 18 126/32 (63) 97 Room Air 97.3 I & 0 Intake and Output 03/28/17 07:00 Intake Total 1740 ml Output Total 1850 ml Balance -110 ml Intake Oral 1740 ml Output Urine Total 1850 ml # Voids 1 PHYSICAL EXAM Physical Exam General Appearance: Awake Alert Oriented x 3 In no Distress Eyes: VIsion Unchanged Conjunctiva Normal EN: No EN Drainage Mucous Memb. moist Neck: no JVD + JVP Supple no Thyromegaly CVS: S1 S2 soft Murmur No Gallop No Rub no Edema Resp: no Rales no Rhonchi no Acc. Muscle use GI: BS +ve NO Bruit Non Tender Non Distended : no CVA tenderness; no Suprapubic Tenderness Assessment & Plan CKD III (DM/ HTNsive / NS) creat at or close to baseline - No NSAIDs re- emphasized with the Pt IDDM - senior care insulin use with ^ed AIC ( uncontrolled based on most recent A1c) ; FSBS remain ^ed Anemia: started Epogen Transfuse as needed. Iron OK on previous exam Accel. HTN: ^ed ARB forn ow; defer to Dr Cast to optimzie further from cardiac standpoint - remains labile Fl. Overload - / wt gain - she thinks the PO BUMEX 1mg BID is working better NSTEMI - D/w Dr Johnson - conservative mx Discussed Plan of Care and prognosis etc. at length with pt COMMENT/RELEVANT DATA Meds Current Medications Medications (Trade) Dose Ordered Sig/Huyen Start Time Stop Time Status Last Admin Dose Admin Acetaminophen (Tylenol) 500 mg PRN Q8HRS PRN 03/25/17 12:00 Acetaminophen/ Hydrocodone Bitart (Lortab 5/325) 1 tab PRN Q12HRS PRN 03/25/17 12:00 Amlodipine Besylate (Norvasc) 5 mg DAILY 03/25/17 12:30 03/28/17 09:20 5 MG Aspirin (Derek Aspirin) 325 mg DAILY 03/25/17 12:30 03/28/17 09:25 325 MG Atorvastatin Calcium (Lipitor) 40 mg HS 03/25/17 21:00 03/27/17 20:34 40 MG Bisacodyl (Dulcolax Supp) 10 mg PRN DAILY PRN 03/27/17 15:45 Bisacodyl (Dulcolax Tab) 10 mg PRN DAILY PRN 03/25/17 12:00 03/28/17 09:21 10 MG Bumetanide (Bumex) 1.5 mg BID94 03/27/17 16:00 03/28/17 09:22 1.5 MG Calcium/Vitamin D (Oscal D 500mg/ 200uts) 1 tab DAILY 03/25/17 12:30 03/28/17 09:23 1 TAB Darbepoetin Pablo (Aranesp) 60 mcg WEEKLYHS 03/25/17 21:00 UNV Dextrose (Dextrose 50%-Water Syringe) 12.5 gm PRN Q15MIN PRN 03/25/17 16:45 Docusate Sodium (Colace) 200 mg HS 03/25/17 21:00 03/27/17 20:33 200 MG Famotidine (Pepcid) 20 mg DAILY 03/27/17 09:00 03/28/17 09:23 20 MG Ferrous Sulfate (Feosol) 325 mg DAILYWBKFT 03/25/17 12:30 03/28/17 09:23 325 MG Furosemide (Lasix) 60 mg BID94 03/25/17 12:30 03/25/17 19:26 DC 03/25/17 16:55 60 MG Furosemide 100 mg/ Sodium Chloride 100 ml @ 0 mls/hr CONT PRN 03/25/17 19:15 03/27/17 13:05 DC 03/27/17 01:11 10 MLS/HR Heparin Sodium (Porcine) (Heparin Sodium) 2,150 unit PRN Q6HRS PRN 03/25/17 04:30 03/27/17 16:13 DC Heparin Sodium/ Dextrose 500 ml @ 0 mls/hr CONT PRN 03/25/17 04:30 03/27/17 13:05 DC 03/26/17 17:40 0 MLS/HR Insulin Aspart (NovoLOG) 12 units TIDWMEALS 03/25/17 17:00 03/28/17 12:23 12 UNITS Isosorbide Mononitrate (Imdur) 60 mg DAILY 03/25/17 12:30 03/28/17 09:24 60 MG Losartan Potassium (Cozaar) 100 mg DAILY 03/28/17 09:00 03/28/17 09:24 100 MG Magnesium Sulfate/ Dextrose 50 ml @ 25 mls/hr PRN DAILY PRN 03/25/17 16:00 Meclizine HCl (Antivert) 12.5 mg BID 03/25/17 12:30 03/28/17 09:24 12.5 MG Meloxicam (Mobic) 7.5 mg DAILY 03/25/17 12:30 03/28/17 09:20 7.5 MG Metoprolol Tartrate (Lopressor) 25 mg BID 03/25/17 12:30 03/28/17 09:25 25 MG Morphine Sulfate 4 mg PRN Q2HR PRN 03/25/17 04:30 03/26/17 04:30 DC Nitroglycerin (Nitrostat) 0.4 mg PRN Q5MIN PRN 03/25/17 12:00 Non-Formulary Medication 30 unit DAILYWBKFT 03/26/17 08:00 03/28/17 09:35 30 UNIT Ondansetron HCl (Zofran) 4 mg PRN Q8HRS PRN 03/25/17 04:30 03/26/17 04:30 DC Pantoprazole Sodium (Protonix) 40 mg DAILYAC 03/25/17 12:30 03/28/17 09:25 40 MG Polyethylene Glycol (miraLAX PACKET) 17 gm DAILY 03/25/17 12:30 03/28/17 09:19 17 GM Prednisone (Prednisone) 5 mg DAILY 03/28/17 09:00 03/28/17 09:25 5 MG Warfarin Sodium (Coumadin Per Physician) 1 each PRN DAILY PRN 03/27/17 16:15 Warfarin Sodium (Coumadin) 5 mg 1X ONCE 03/27/17 17:00 03/27/17 17:01 DC 03/27/17 17:36 5 MG Lab Laboratory Tests Test 03/27/17 16:09 03/27/17 16:57 03/27/17 21:32 03/28/17 04:00 Prothrombin Time 15.8 SEC (11.7-14.0) Prothromb Time International Ratio 1.3 (0.8-1.1) Glucose (Fingerstick) 110 mg/dL (70-99) 153 mg/dL (70-99) Sodium Level 140 mmol/L (136-145) Potassium Level 4.0 mmol/L (3.5-5.1) Chloride Level 100 mmol/L (98-107) Carbon Dioxide Level 35 mmol/L (21-32) Anion Gap 5 (6-14) Blood Urea Nitrogen 59 mg/dL (7-20) Creatinine 1.5 mg/dL (0.6-1.0) Estimated GFR (Cockcroft-Gault) 33.3 Glucose Level 111 mg/dL (70-99) Calcium Level 9.6 mg/dL (8.5-10.1) Phosphorus Level 2.4 mg/dL (2.6-4.7) Magnesium Level 2.2 mg/dL (1.8-2.4) Albumin 2.6 g/dL (3.4-5.0) Test 03/28/17 07:23 03/28/17 09:04 03/28/17 11:35 Glucose (Fingerstick) 121 mg/dL (70-99) 237 mg/dL (70-99) Prothrombin Time 16.1 SEC (11.7-14.0) Prothromb Time International Ratio 1.4 (0.8-1.1) JULIO C BARRIOS MD Mar 28, 2017 12:44
[2017-03-28 15:15] VITALS: BP 116/38
--- NOTE | 2017-03-28 16:39 | PDOC3 ---
Discharge Summary* Date of Admission: Mar 25, 2017 Date of Discharge: Mar 28, 2017 Admitting Diagnosis Problems Medical Problems: (1) Chest pain Status: Acute (2) NSTEMI (non-ST elevated myocardial infarction) Status: Acute Problems: Final Diagnosis Chest pain Non-STEMI CHF Chronic renal failure Brief Hospital Course Patient is a very pleasant 82-year-old lady with a known history of vomiting or heart disease, cardiomyopathy, CHF and coronary artery disease. For over a year the patient's overall condition has been deteriorating and she' s had some recent admissions for CHF and chronic renal failure. This time she woke up with a severe chest pain that did not go away and eventually made her come in to the emergency room. There were no acute changes in the EKG but she had mild elevation of the troponins on the first set of enzymes. She was seen and evaluated in the ER and he was decided to admit her for further workup and treatment. After admission the enzymes went up and the troponin peaked at 5. She didn't have any more chest pain when I saw her initially and there were no significant changes in her EKG. However the patient was getting very short of breath and she had a lot of edema as well as pulmonary rales and was found to be in acute on chronic CHF again. Her CHF is both systolic and diastolic. Was decided to treat the patient conservatively. She is a DNR/DNI and did not want to have any sort of intervention. I consulted the foundation director because of her chronic renal failure and started the patient on a Lasix drip. She gradually improved and was switched from the Lasix to a Bumex this she appeared to be diuresing better. Today the patient appears to be stable and she wants to go home to be followed as an outpatient. I will see the patient in the office next week and I have discussed with her with regards to her condition, prognosis, status, medications, diet, activity and her overall prognosis as well as deteriorating situation the patient's understands this. I have also discussed this with one of the daughters. See the MRAD for the list of discharge medications. Patient to be discharged home today in stable condition with a non-STEMI and she is to be followed with a conservative management. CONDITION AT DISCHARGE: Improved, Stable Scheduled Amlodipine Besylate (Amlodipine Besylate), 5 MG PO DAILY, (Reported) Aspirin (Aspirin), 1 TAB PO DAILY, (Reported) Atorvastatin Calcium (Atorvastatin Calcium), 40 MG PO HS, (Reported) Bumetanide (Bumetanide), 1.5 TAB PO BID94, (Reported) Calcium Carbonate/Vitamin D3 (Calcium 500 + Vit D 200 Tablet), 1 EACH PO DAILY, (Reported) Darbepoetin Pablo in Polysorbat (Aranesp), 60 MCG IJ WEEKLYHS, (Reported) Docusate Sodium (Stool Softener), 200 MG PO HS, (Reported) Ferrous Sulfate (Ferrous Sulfate), 1 TAB PO DAILY, (Reported) Insulin Aspart (Novolog), 12 UNIT SQ DAILYAC, (Reported) Insulin Degludec (Tresiba Flextouch U-100), 30 UNIT SQ DAILYWBKFT, (Reported) Isosorbide Mononitrate (Isosorbide Mononitrate Er), 60 MG PO DAILY, (Reported) Losartan Potassium (Losartan Potassium), 50 MG PO DAILY, (Reported) Meclizine Hcl (Meclizine Hcl), 1 TAB PO BID, (Reported) Metoprolol Tartrate (Metoprolol Tartrate), 1 TAB PO BID, (Reported) Pantoprazole Sodium (Protonix), 1 TAB PO DAILY, (Reported) Polyethylene Glycol 3350 (Miralax), 1 PACKET PO DAILY, (Reported) Warfarin Sodium (Coumadin), 4 MG PO DAILY, (Reported) Scheduled PRN Acetaminophen (Acetaminophen), 500 MG PO PRN Q8HRS PRN for PAIN, (Reported) Bisacodyl (Dulcolax), 10 MG PO PRN DAILY PRN for CONSTIPATION, (Reported) Bisacodyl (Dulcolax), 10 MG RC PRN DAILY PRN for CONSTIPATION, (Reported) Hydrocodone Bit/Acetaminophen (Hydrocodone-Apap 5-325 ), 1 TAB PO Q12HR PRN for PAIN, (Reported) Nitroglycerin (NITROGLYCERIN SubLingual), 0.4 MG SL PRN Q5MIN PRN for CHEST PAIN , (Reported) Miscellaneous Medications Insulin Aspart (Novolog), 100 UNIT SQ, (Reported) Discontinued Medications Furosemide (Furosemide), 60 MG PO BID, (Reported) Meloxicam (Mobic), 7.5 MG PO DAILY, (Reported) Time Spent Total time spent with patient [] minutes for coordination of care, counseling, and education. WILLY GURROLA MD Mar 28, 2017 16:39
[2017-03-28] MEDS ORDERED: DARBEPOETIN ALFA 60 MCG/0.3 ML DISP.SYRIN. SQ SCH (21:00)
[2017-05-04] MEDS ORDERED: FURO20TA3 PO (12:27)
[2017-05-04] MEDS ORDERED: INSU100I17 SQ (12:27)
[2017-05-04] MEDS ORDERED: DILT240C77 PO (12:27)
[2017-05-07] MEDS ORDERED: AMLO5TAB2 PO (13:03)
== END 2017-03-28 17:45 | disposition home or self-care (01) | DRG 280 ==
LOC: ER 03:42 → 2 NORTH 04:36
PROVIDERS: ADMIT Internal Medicine Cardiovascular Disease; ATTEND Internal Medicine Cardiovascular Disease
DX: I21.4 Non-ST elevation (NSTEMI) myocardial infarction (principal); I50.43 Acute on chronic combined systolic (congestive) and diastolic (congestive) heart failure; E11.22 Type 2 diabetes mellitus with diabetic chronic kidney disease; I27.20 Pulmonary hypertension, unspecified; I13.0 Hypertensive heart and chronic kidney disease with heart failure and stage 1 through stage 4 chronic kidney disease, or unspecified chronic kidney disease; I42.9 Cardiomyopathy, unspecified; I25.10 Atherosclerotic heart disease of native coronary artery without angina pectoris; K21.9 Gastro-esophageal reflux disease without esophagitis; Z96.659 Presence of unspecified artificial knee joint; Z66 Do not resuscitate; N18.3 Chronic kidney disease, stage 3 (moderate); D64.9 Anemia, unspecified; N28.1 Cyst of kidney, acquired; I25.2 Old myocardial infarction; Z85.3 Personal history of malignant neoplasm of breast; Z90.49 Acquired absence of other specified parts of digestive tract; Z90.710 Acquired absence of both cervix and uterus; Z95.5 Presence of coronary angioplasty implant and graft; Z91.041 Radiographic dye allergy status; Z88.8 Allergy status to other drugs, medicaments and biological substances; Z91.048 Other nonmedicinal substance allergy status; Z79.4 Long term (current) use of insulin
CPT/HCPCS: 36415; 71010; 80053; 80069; 82962; 83735; 83880; 84484; 85007; 85025; 85520; 85610; 93005; J1644; J1815; J7512; J8597; 99291-25

== ENCOUNTER 2017-04-27 10:41 | Inpatient (IN) | payer MEDICARE ==
[2017-04-27] MEDS: ASPIRIN CHEWABLE 81 MG TABLET. PO ×2 (11:15→11:23)
[2017-04-27] MEDS: dilTIAZem IV PUSH 25 MG/5 ML VIAL IVP ×2 (11:24→13:52)
[2017-04-27] MEDS: dilTIAZem 125 MG in IV NORMAL SALINE 100ML 100 ML IV ×2 (11:25→20:39)
[2017-04-27 11:33] LABS: GLUCOSE ISTAT 296 mg/dL (70-99); HEMATOCRIT ISTAT 31 % (36-40); POTASSIUM ISTAT 4.7 mmol/L (3.5-5.0); SODIUM ISTAT 138 mmol/L (135-145); TOT CO2 ISTAT 30 mmol/L (23-32)
[2017-04-27 11:40] LABS: ADD MAN DIFF? NO
[2017-04-27 11:42] LABS: BASO # 0.1 x10^3/uL (0.0-0.2); BASO % 1 % (0-3); EOS % 2 % (0-3); HEMATOCRIT 31.3 % (36.0-47.0); HEMOGLOBIN 10.4 g/dL (12.0-15.5); LYMPH # 0.9 x10^3/uL (1.0-4.8); LYMPH % 11 % (24-48); MEAN CORPUSCULAR HEMOGLOBIN 29 pg (25-35); MEAN CORPUSCULAR HGB CONC 33 g/dL (31-37); MEAN CORPUSCULAR VOLUME 87 fL (79-100); MONO % 7 % (0-9); NEUT % 79 % (31-73); PLATELET COUNT 432 x10^3/uL (140-400); RED BLOOD COUNT 3.61 x10^6/uL (3.50-5.40); RED CELL DISTRIBUTION WIDTH 17.5 % (11.5-14.5); WHITE BLOOD COUNT 8.1 x10^3/uL (4.0-11.0)
[2017-04-27 11:53] LABS: ANION GAP 12 (6-14); BLOOD UREA NITROGEN 27 mg/dL (7-20); CARBON DIOXIDE 28 mmol/L (21-32); CHLORIDE 100 mmol/L (98-107); CREATININE 1.2 mg/dL (0.6-1.0); GFR 43.1; GLUCOSE 307 mg/dL (70-99); INR 3.2 (0.8-1.1); POTASSIUM 4.7 mmol/L (3.5-5.1); SODIUM 140 mmol/L (136-145)
[2017-04-27 11:54] LABS: PARTIAL THROMBOPLASTIN TIME 67 SEC (24-38)
[2017-04-27 11:59] LABS: ALBUMIN 2.7 g/dL (3.4-5.0); ALK PHOS 143 U/L (46-116); ALT (SGPT) 14 U/L (14-59); AST (SGOT) 23 U/L (15-37); DIRECT BILIRUBIN < 0.1 mg/dL (0.0-0.2); TOTAL BILIRUBIN 0.2 mg/dL (0.2-1.0); TOTAL PROTEIN 8.2 g/dL (6.4-8.2)
[2017-04-27 12:05] LABS: NT-PRO BNP 5761 pg/mL (0-449)
[2017-04-27 12:08] LABS: TROPONINI 0.216 ng/mL (0.000-0.055)
[2017-04-27] MEDS ORDERED: MORPHINE SULFATE 2 MG/ML DISP.SYRIN. (12:21)
[2017-04-27] MEDS: MORPHINE SULFATE 2 MG/ML DISP.SYRIN. IV (12:25)
[2017-04-27 12:30] LABS: TROPONIN BY ISTAT 0.17 ng/ml (<0.08)
[2017-04-27] MEDS ORDERED: ONDANSETRON PF 4 MG/2 ML VIAL. IV (12:30)
[2017-04-27] MEDS: HEPARIN for IV BOLUS 10,000 UNIT/10 ML VIAL. IV (12:39)
[2017-04-27] MEDS: HEPARIN 25,000UTS/500ML PREMIX 500 ML IV (12:42)
[2017-04-27 14:36] LABS: POC GLUCOSE 159 mg/dL (70-99)
[2017-04-27] MEDS: DIGOXIN IV 500 MCG/2 ML AMPUL. IV (15:56)
[2017-04-27] MEDS ORDERED: DEXTROSE 50% 25 GM / 50ML DISP.SYRIN. IV (17:30)
[2017-04-27] MEDS ORDERED: HYDROcodone/APAP 5/325MG 1 TAB TABLET PO (17:30)
[2017-04-27] MEDS ORDERED: NITROGLYCERIN SUBLINGUAL 0.4 MG BOTTLE OF 25. SL (17:30)
[2017-04-27] MEDS ORDERED: BISACODYL 10 MG SUPP.RECT. RC (17:30)
[2017-04-27] MEDS: INSULIN ASPART 300 UNITS/3 ML INSULN.PEN SQ (18:13)
[2017-04-27 20:07] LABS: TROPONINI 5.174 ng/mL (0.000-0.055)
[2017-04-27] MEDS: DOCUSATE SODIUM 100 MG CAPSULE. PO (20:39)
[2017-04-27] MEDS: METOPROLOL TART IMMED RELEASE 25 MG TABLET. PO (20:40)
[2017-04-27] MEDS: MECLIZINE HCL 12.5 MG TABLET. PO (20:44)
[2017-04-27] MEDS: ATORVASTATIN CALCIUM 40 MG TABLET. PO (20:48)
[2017-04-27 21:09] LABS: POC GLUCOSE 154 mg/dL (70-99)
[2017-04-27] MEDS: ALPRAZolam 0.5 MG TABLET PO (21:25)
[2017-04-28 01:28] LABS: TROPONINI 5.534 ng/mL (0.000-0.055)
[2017-04-28 02:32] LABS: POC GLUCOSE 258 mg/dL (70-99)
[2017-04-28 04:38] LABS: ADD MAN DIFF? NO
[2017-04-28 04:55] LABS: BASO % 1 % (0-3); EOS % 5 % (0-3); HEMATOCRIT 26.9 % (36.0-47.0); HEMOGLOBIN 8.9 g/dL (12.0-15.5); LYMPH # 1.5 x10^3/uL (1.0-4.8); LYMPH % 21 % (24-48); MEAN CORPUSCULAR HEMOGLOBIN 29 pg (25-35); MEAN CORPUSCULAR HGB CONC 33 g/dL (31-37); MEAN CORPUSCULAR VOLUME 87 fL (79-100); MONO % 8 % (0-9); NEUT % 65 % (31-73); PLATELET COUNT 362 x10^3/uL (140-400); RED BLOOD COUNT 3.11 x10^6/uL (3.50-5.40); RED CELL DISTRIBUTION WIDTH 17.2 % (11.5-14.5)
[2017-04-28 05:02] LABS: ANION GAP 7 (6-14); BLOOD UREA NITROGEN 28 mg/dL (7-20); CALCIUM 8.9 mg/dL (8.5-10.1); CARBON DIOXIDE 29 mmol/L (21-32); CHLORIDE 103 mmol/L (98-107); CREATININE 1.2 mg/dL (0.6-1.0); GFR 43.1; GLUCOSE 174 mg/dL (70-99); POTASSIUM 4.3 mmol/L (3.5-5.1); SODIUM 139 mmol/L (136-145)
[2017-04-28] MEDS: dilTIAZem 125 MG in IV NORMAL SALINE 100ML 100 ML IV (05:26)
[2017-04-28] MEDS: INSULIN ASPART 300 UNITS/3 ML INSULN.PEN SQ ×4 (08:00→17:24)
[2017-04-28] MEDS: BUMETANIDE 1 MG TABLET. PO ×2 (08:08→15:54)
[2017-04-28] MEDS: CALCIUM CARB/VIT D3 500/200 TABLET. PO (08:09)
[2017-04-28] MEDS: METOPROLOL TART IMMED RELEASE 25 MG TABLET. PO ×2 (08:09→21:13)
[2017-04-28] MEDS: ASPIRIN 325 MG TABLET PO (08:10)
[2017-04-28] MEDS: PANTOPRAZOLE 40 MG TABLET.DR. PO (08:10)
[2017-04-28] MEDS: FERROUS SULFATE 325 MG TABLET. PO (08:10)
[2017-04-28] MEDS: amLODIPine BESYLATE 5 MG TABLET PO (08:10)
[2017-04-28] MEDS: LOSARTAN POTASSIUM 50 MG TABLET. PO (08:10)
[2017-04-28] MEDS: MECLIZINE HCL 12.5 MG TABLET. PO ×2 (08:10→21:13)
[2017-04-28] MEDS: ISOSORBIDE MONONITRATE ER 30 MG TAB.ER.24H PO (08:11)
[2017-04-28] MEDS: POLYETHYLENE GLYCOL 3350 17 GM PACKET. PO (08:13)
[2017-04-28 08:15] LABS: POC GLUCOSE 173 mg/dL (70-99)
[2017-04-28] MEDS: TRESIBA INSULIN SQ (08:51)
[2017-04-28 12:11] LABS: POC GLUCOSE 203 mg/dL (70-99)
[2017-04-28] MEDS: ALPRAZolam 0.5 MG TABLET PO (14:28)
[2017-04-28] MEDS: WARFARIN 4 MG TABLET. PO (15:56)
[2017-04-28 16:23] LABS: POC GLUCOSE 182 mg/dL (70-99)
[2017-04-28 20:56] LABS: POC GLUCOSE 123 mg/dL (70-99)
[2017-04-28] MEDS: DOCUSATE SODIUM 100 MG CAPSULE. PO (21:12)
[2017-04-28] MEDS: ATORVASTATIN CALCIUM 40 MG TABLET. PO (21:12)
[2017-04-29] MEDS: ALPRAZolam 0.5 MG TABLET PO ×2 (02:34→23:45)
[2017-04-29 06:09] LABS: INR 2.8 (0.8-1.1)
[2017-04-29] MEDS: INSULIN ASPART 300 UNITS/3 ML INSULN.PEN SQ ×4 (08:00→17:18)
[2017-04-29 08:23] LABS: POC GLUCOSE 188 mg/dL (70-99)
[2017-04-29] MEDS: ISOSORBIDE MONONITRATE ER 30 MG TAB.ER.24H PO (08:23)
[2017-04-29] MEDS: ASPIRIN 325 MG TABLET PO (08:24)
[2017-04-29] MEDS: BUMETANIDE 1 MG TABLET. PO ×2 (08:24→17:14)
[2017-04-29] MEDS: amLODIPine BESYLATE 5 MG TABLET PO (08:24)
[2017-04-29] MEDS: FERROUS SULFATE 325 MG TABLET. PO (08:24)
[2017-04-29] MEDS: METOPROLOL TART IMMED RELEASE 25 MG TABLET. PO ×2 (08:25→19:59)
[2017-04-29] MEDS: CALCIUM CARB/VIT D3 500/200 TABLET. PO (08:25)
[2017-04-29] MEDS: MECLIZINE HCL 12.5 MG TABLET. PO ×2 (08:25→19:59)
[2017-04-29] MEDS: POLYETHYLENE GLYCOL 3350 17 GM PACKET. PO ×3 (08:25→20:00)
[2017-04-29] MEDS: PANTOPRAZOLE 40 MG TABLET.DR. PO (08:25)
[2017-04-29] MEDS: LOSARTAN POTASSIUM 50 MG TABLET. PO (08:26)
[2017-04-29] MEDS: BISACODYL 5 MG TABLET.DR. PO (08:26)
[2017-04-29] MEDS: TRESIBA INSULIN SQ (08:27)
[2017-04-29 12:00] LABS: POC GLUCOSE 201 mg/dL (70-99)
[2017-04-29 14:09] LABS: RETIC COUNT 1.6 % (0.5-2.5)
[2017-04-29 14:10] LABS: % SAT IRON 47 % (15-34); IRON,SERUM 24 ug/dL (50-170)
[2017-04-29 14:24] LABS: FERRITIN 92 ng/mL (8-252)
[2017-04-29 16:44] LABS: POC GLUCOSE 170 mg/dL (70-99)
[2017-04-29] MEDS: WARFARIN 4 MG TABLET. PO (17:14)
[2017-04-29] MEDS: ATORVASTATIN CALCIUM 40 MG TABLET. PO (19:59)
[2017-04-29] MEDS: DOCUSATE SODIUM 100 MG CAPSULE. PO (19:59)
[2017-04-29] MEDS: ZOLPIDEM 5 MG TABLET. PO (20:00)
[2017-04-29] MEDS: MAGNESIUM HYDROXIDE 2,400 MG/30 ML ORAL.SUSP. PO (20:01)
[2017-04-29 20:53] LABS: POC GLUCOSE 284 mg/dL (70-99)
[2017-04-30 05:36] LABS: INR 2.6 (0.8-1.1); PROTHROMBIN TIME PATIENT 26.3 SEC (11.7-14.0)
[2017-04-30 05:45] LABS: ANION GAP 9 (6-14); BLOOD UREA NITROGEN 37 mg/dL (7-20); CALCIUM 8.4 mg/dL (8.5-10.1); CARBON DIOXIDE 27 mmol/L (21-32); CHLORIDE 101 mmol/L (98-107); CREATININE 1.3 mg/dL (0.6-1.0); GFR 39.3; GLUCOSE 377 mg/dL (70-99); POTASSIUM 4.1 mmol/L (3.5-5.1); SODIUM 137 mmol/L (136-145)
[2017-04-30] MEDS: BUMETANIDE 1 MG TABLET. PO ×2 (08:40→16:44)
[2017-04-30] MEDS: CALCIUM CARB/VIT D3 500/200 TABLET. PO (08:40)
[2017-04-30] MEDS: ISOSORBIDE MONONITRATE ER 30 MG TAB.ER.24H PO (08:40)
[2017-04-30 08:41] LABS: POC GLUCOSE 316 mg/dL (70-99)
[2017-04-30] MEDS: LOSARTAN POTASSIUM 50 MG TABLET. PO (08:41)
[2017-04-30] MEDS: PANTOPRAZOLE 40 MG TABLET.DR. PO (08:41)
[2017-04-30] MEDS: amLODIPine BESYLATE 5 MG TABLET PO (08:41)
[2017-04-30] MEDS: MECLIZINE HCL 12.5 MG TABLET. PO ×2 (08:41→21:11)
[2017-04-30] MEDS: FERROUS SULFATE 325 MG TABLET. PO (08:42)
[2017-04-30] MEDS: POLYETHYLENE GLYCOL 3350 17 GM PACKET. PO ×2 (08:42→21:24)
[2017-04-30] MEDS: METOPROLOL TART IMMED RELEASE 25 MG TABLET. PO ×2 (08:42→21:12)
[2017-04-30] MEDS: INSULIN ASPART 300 UNITS/3 ML INSULN.PEN SQ ×4 (08:52→16:50)
[2017-04-30] MEDS: TRESIBA INSULIN SQ (09:16)
[2017-04-30] MEDS: ASPIRIN 325 MG TABLET PO (09:16)
[2017-04-30 11:39] LABS: POC GLUCOSE 413 mg/dL (70-99)
[2017-04-30 14:16] LABS: POC GLUCOSE 147 mg/dL (70-99)
[2017-04-30 16:26] LABS: POC GLUCOSE 234 mg/dL (70-99)
[2017-04-30] MEDS: WARFARIN 4 MG TABLET. PO (16:44)
[2017-04-30] MEDS: ATORVASTATIN CALCIUM 40 MG TABLET. PO (21:11)
[2017-04-30] MEDS: DOCUSATE SODIUM 100 MG CAPSULE. PO (21:12)
[2017-04-30] MEDS: ZOLPIDEM 5 MG TABLET. PO (21:16)
[2017-04-30 21:27] LABS: POC GLUCOSE 282 mg/dL (70-99)
[2017-05-01 04:50] LABS: INR 2.5 (0.8-1.1); PROTHROMBIN TIME PATIENT 25.3 SEC (11.7-14.0)
[2017-05-01] MEDS: PANTOPRAZOLE 40 MG TABLET.DR. PO (08:13)
[2017-05-01] MEDS: BUMETANIDE 1 MG TABLET. PO ×3 (08:14→14:00)
[2017-05-01] MEDS: amLODIPine BESYLATE 5 MG TABLET PO (08:15)
[2017-05-01] MEDS: FERROUS SULFATE 325 MG TABLET. PO (08:15)
[2017-05-01] MEDS: CALCIUM CARB/VIT D3 500/200 TABLET. PO (08:15)
[2017-05-01] MEDS: ASPIRIN 325 MG TABLET PO (08:15)
[2017-05-01] MEDS: MECLIZINE HCL 12.5 MG TABLET. PO ×2 (08:15→21:22)
[2017-05-01 08:16] LABS: POC GLUCOSE 322 mg/dL (70-99)
[2017-05-01] MEDS: LOSARTAN POTASSIUM 50 MG TABLET. PO (08:16)
[2017-05-01] MEDS: ISOSORBIDE MONONITRATE ER 30 MG TAB.ER.24H PO (08:17)
[2017-05-01] MEDS: POLYETHYLENE GLYCOL 3350 17 GM PACKET. PO ×2 (08:19→21:23)
[2017-05-01] MEDS: METOPROLOL TART IMMED RELEASE 25 MG TABLET. PO ×2 (08:19→21:22)
[2017-05-01] MEDS: INSULIN ASPART 300 UNITS/3 ML INSULN.PEN SQ ×3 (08:32→17:58)
[2017-05-01] MEDS: TRESIBA INSULIN SQ (08:33)
[2017-05-01 11:53] LABS: POC GLUCOSE 314 mg/dL (70-99)
[2017-05-01] MEDS ORDERED: FUROSEMIDE 100 MG/10 ML VIAL. IVP (13:30)
[2017-05-01] MEDS ORDERED: BUMETANIDE 1 MG TABLET. PO (14:00)
[2017-05-01] MEDS: FUROSEMIDE 100 MG/10 ML VIAL. IVP (17:42)
[2017-05-01] MEDS: WARFARIN 4 MG TABLET. PO (17:44)
[2017-05-01 17:46] LABS: POC GLUCOSE 305 mg/dL (70-99)
[2017-05-01] MEDS: ATORVASTATIN CALCIUM 40 MG TABLET. PO (21:21)
[2017-05-01] MEDS: DOCUSATE SODIUM 100 MG CAPSULE. PO (21:22)
[2017-05-01] MEDS: ZOLPIDEM 5 MG TABLET. PO (21:22)
[2017-05-01 21:57] LABS: POC GLUCOSE 268 mg/dL (70-99)
[2017-05-02 04:28] LABS: ADD MAN DIFF? NO
[2017-05-02 04:35] LABS: BASO % 1 % (0-3); EOS % 3 % (0-3); HEMATOCRIT 25.9 % (36.0-47.0); HEMOGLOBIN 8.5 g/dL (12.0-15.5); LYMPH # 1.1 x10^3/uL (1.0-4.8); LYMPH % 12 % (24-48); MEAN CORPUSCULAR HEMOGLOBIN 28 pg (25-35); MEAN CORPUSCULAR HGB CONC 33 g/dL (31-37); MEAN CORPUSCULAR VOLUME 86 fL (79-100); MONO % 8 % (0-9); NEUT % 77 % (31-73); PLATELET COUNT 304 x10^3/uL (140-400); RED BLOOD COUNT 3.02 x10^6/uL (3.50-5.40); RED CELL DISTRIBUTION WIDTH 17.1 % (11.5-14.5); WHITE BLOOD COUNT 9.2 x10^3/uL (4.0-11.0)
[2017-05-02 04:57] LABS: ANION GAP 9 (6-14); BLOOD UREA NITROGEN 37 mg/dL (7-20); CALCIUM 8.5 mg/dL (8.5-10.1); CARBON DIOXIDE 27 mmol/L (21-32); CHLORIDE 101 mmol/L (98-107); CREATININE 1.2 mg/dL (0.6-1.0); GFR 43.1; GLUCOSE 238 mg/dL (70-99); MAGNESIUM 1.9 mg/dL (1.8-2.4); POTASSIUM 4.4 mmol/L (3.5-5.1); SODIUM 137 mmol/L (136-145)
[2017-05-02 05:35] LABS: INR 2.6 (0.8-1.1); PROTHROMBIN TIME PATIENT 26.2 SEC (11.7-14.0)
[2017-05-02] MEDS: FUROSEMIDE 100 MG/10 ML VIAL. IVP ×2 (05:46→17:03)
[2017-05-02] MEDS: PANTOPRAZOLE 40 MG TABLET.DR. PO (05:47)
[2017-05-02 08:24] LABS: POC GLUCOSE 234 mg/dL (70-99)
[2017-05-02] MEDS: POLYETHYLENE GLYCOL 3350 17 GM PACKET. PO ×2 (08:44→21:31)
[2017-05-02] MEDS: CALCIUM CARB/VIT D3 500/200 TABLET. PO (08:45)
[2017-05-02] MEDS: BUMETANIDE 1 MG TABLET. PO (08:45)
[2017-05-02] MEDS: amLODIPine BESYLATE 5 MG TABLET PO (08:45)
[2017-05-02] MEDS: MECLIZINE HCL 12.5 MG TABLET. PO ×2 (08:45→21:30)
[2017-05-02] MEDS: ASPIRIN 325 MG TABLET PO (08:45)
[2017-05-02] MEDS: FERROUS SULFATE 325 MG TABLET. PO (08:45)
[2017-05-02] MEDS: LOSARTAN POTASSIUM 50 MG TABLET. PO (08:46)
[2017-05-02] MEDS: ISOSORBIDE MONONITRATE ER 30 MG TAB.ER.24H PO (08:48)
[2017-05-02] MEDS: METOPROLOL TART IMMED RELEASE 25 MG TABLET. PO ×2 (08:48→21:30)
[2017-05-02] MEDS: INSULIN ASPART 300 UNITS/3 ML INSULN.PEN SQ ×3 (08:55→17:12)
[2017-05-02] MEDS: TRESIBA INSULIN SQ (08:56)
[2017-05-02] MEDS: ACETAMINOPHEN 500 MG TABLET PO (09:35)
[2017-05-02] MEDS: ALPRAZolam 0.5 MG TABLET PO (09:35)
[2017-05-02 12:05] LABS: POC GLUCOSE 249 mg/dL (70-99)
[2017-05-02] MEDS: WARFARIN 4 MG TABLET. PO (17:04)
[2017-05-02 17:42] LABS: POC GLUCOSE 222 mg/dL (70-99)
[2017-05-02] MEDS: DOCUSATE SODIUM 100 MG CAPSULE. PO (21:30)
[2017-05-02] MEDS: ATORVASTATIN CALCIUM 40 MG TABLET. PO (21:30)
[2017-05-02] MEDS: ZOLPIDEM 5 MG TABLET. PO (21:30)
[2017-05-02] MEDS: DARBEPOETIN ALFA 60 MCG/0.3 ML DISP.SYRIN. SQ (21:36)
[2017-05-02 21:40] LABS: POC GLUCOSE 315 mg/dL (70-99)
[2017-05-03] MEDS: PANTOPRAZOLE 40 MG TABLET.DR. PO (06:24)
[2017-05-03] MEDS: FUROSEMIDE 100 MG/10 ML VIAL. IVP (06:25)
[2017-05-03 07:33] LABS: ADD MAN DIFF? NO
[2017-05-03 07:36] LABS: BASO # 0.1 x10^3/uL (0.0-0.2); BASO % 1 % (0-3); EOS % 3 % (0-3); HEMATOCRIT 28.2 % (36.0-47.0); HEMOGLOBIN 9.1 g/dL (12.0-15.5); LYMPH # 0.9 x10^3/uL (1.0-4.8); LYMPH % 10 % (24-48); MEAN CORPUSCULAR HEMOGLOBIN 28 pg (25-35); MEAN CORPUSCULAR HGB CONC 32 g/dL (31-37); MEAN CORPUSCULAR VOLUME 87 fL (79-100); MONO % 6 % (0-9); NEUT % 80 % (31-73); PLATELET COUNT 344 x10^3/uL (140-400); RED BLOOD COUNT 3.26 x10^6/uL (3.50-5.40); RED CELL DISTRIBUTION WIDTH 17.3 % (11.5-14.5); WHITE BLOOD COUNT 9.4 x10^3/uL (4.0-11.0)
[2017-05-03 07:46] LABS: INR 2.7 (0.8-1.1); PROTHROMBIN TIME PATIENT 27.1 SEC (11.7-14.0)
[2017-05-03 08:14] LABS: ANION GAP 7 (6-14); BLOOD UREA NITROGEN 39 mg/dL (7-20); CALCIUM 8.7 mg/dL (8.5-10.1); CARBON DIOXIDE 30 mmol/L (21-32); CHLORIDE 99 mmol/L (98-107); CREATININE 1.2 mg/dL (0.6-1.0); GFR 43.1; GLUCOSE 303 mg/dL (70-99); MAGNESIUM 2.1 mg/dL (1.8-2.4); POTASSIUM 4.5 mmol/L (3.5-5.1); SODIUM 136 mmol/L (136-145)
[2017-05-03] MEDS: ASPIRIN 325 MG TABLET PO (08:26)
[2017-05-03] MEDS: FERROUS SULFATE 325 MG TABLET. PO (08:27)
[2017-05-03] MEDS: LOSARTAN POTASSIUM 50 MG TABLET. PO (08:27)
[2017-05-03] MEDS: ISOSORBIDE MONONITRATE ER 30 MG TAB.ER.24H PO (08:28)
[2017-05-03] MEDS: CALCIUM CARB/VIT D3 500/200 TABLET. PO (08:28)
[2017-05-03] MEDS: amLODIPine BESYLATE 5 MG TABLET PO (08:28)
[2017-05-03] MEDS: POLYETHYLENE GLYCOL 3350 17 GM PACKET. PO ×2 (08:29→21:32)
[2017-05-03] MEDS: TRESIBA INSULIN SQ (08:29)
[2017-05-03] MEDS: METOPROLOL TART IMMED RELEASE 25 MG TABLET. PO ×2 (08:29→21:33)
[2017-05-03] MEDS: MECLIZINE HCL 12.5 MG TABLET. PO ×2 (08:29→21:32)
[2017-05-03] MEDS: INSULIN ASPART 300 UNITS/3 ML INSULN.PEN SQ ×3 (08:37→17:27)
[2017-05-03 11:32] LABS: POC GLUCOSE 342 mg/dL (70-99)
[2017-05-03 16:37] LABS: POC GLUCOSE 216 mg/dL (70-99)
[2017-05-03] MEDS: WARFARIN 4 MG TABLET. PO (17:24)
[2017-05-03] MEDS: ATORVASTATIN CALCIUM 40 MG TABLET. PO (21:32)
[2017-05-03] MEDS: DOCUSATE SODIUM 100 MG CAPSULE. PO (21:32)
[2017-05-03] MEDS: ZOLPIDEM 5 MG TABLET. PO (21:33)
[2017-05-03 21:35] LABS: POC GLUCOSE 250 mg/dL (70-99)
[2017-05-04 04:24] LABS: POC GLUCOSE 303 mg/dL (70-99)
[2017-05-04 04:37] LABS: ADD MAN DIFF? NO
[2017-05-04 04:52] LABS: BASO % 1 % (0-3); EOS % 4 % (0-3); HEMATOCRIT 24.4 % (36.0-47.0); LYMPH # 1.2 x10^3/uL (1.0-4.8); LYMPH % 15 % (24-48); MEAN CORPUSCULAR HEMOGLOBIN 28 pg (25-35); MEAN CORPUSCULAR HGB CONC 33 g/dL (31-37); MEAN CORPUSCULAR VOLUME 86 fL (79-100); MONO % 7 % (0-9); NEUT % 74 % (31-73); PLATELET COUNT 299 x10^3/uL (140-400); RED BLOOD COUNT 2.84 x10^6/uL (3.50-5.40); RED CELL DISTRIBUTION WIDTH 17.1 % (11.5-14.5)
[2017-05-04 05:06] LABS: ANION GAP 8 (6-14); BLOOD UREA NITROGEN 50 mg/dL (7-20); CALCIUM 8.6 mg/dL (8.5-10.1); CARBON DIOXIDE 29 mmol/L (21-32); CHLORIDE 96 mmol/L (98-107); CREATININE 1.3 mg/dL (0.6-1.0); GFR 39.3; GLUCOSE 293 mg/dL (70-99); MAGNESIUM 2.1 mg/dL (1.8-2.4); POTASSIUM 4.1 mmol/L (3.5-5.1); SODIUM 133 mmol/L (136-145)
[2017-05-04] MEDS: PANTOPRAZOLE 40 MG TABLET.DR. PO (05:55)
[2017-05-04 06:47] LABS: INR 2.8 (0.8-1.1); PROTHROMBIN TIME PATIENT 27.6 SEC (11.7-14.0)
[2017-05-04] MEDS: POLYETHYLENE GLYCOL 3350 17 GM PACKET. PO (08:27)
[2017-05-04] MEDS: MECLIZINE HCL 12.5 MG TABLET. PO (08:28)
[2017-05-04] MEDS: FERROUS SULFATE 325 MG TABLET. PO (08:28)
[2017-05-04] MEDS: CALCIUM CARB/VIT D3 500/200 TABLET. PO (08:28)
[2017-05-04] MEDS: ASPIRIN 325 MG TABLET PO (08:28)
[2017-05-04] MEDS: FUROSEMIDE 20 MG TABLET PO (08:28)
[2017-05-04] MEDS: LOSARTAN POTASSIUM 50 MG TABLET. PO (08:30)
[2017-05-04] MEDS: METOPROLOL TART IMMED RELEASE 25 MG TABLET. PO (08:30)
[2017-05-04] MEDS: amLODIPine BESYLATE 5 MG TABLET PO (08:31)
[2017-05-04] MEDS: ISOSORBIDE MONONITRATE ER 30 MG TAB.ER.24H PO (08:31)
[2017-05-04] MEDS: TRESIBA INSULIN SQ (08:32)
[2017-05-04] MEDS: INSULIN ASPART 300 UNITS/3 ML INSULN.PEN SQ ×2 (08:38→12:52)
[2017-05-04 11:04] LABS: POC GLUCOSE 295 mg/dL (70-99)
[2017-05-04 11:04] LABS: POC GLUCOSE 280 mg/dL (70-99)
== END 2017-05-04 16:40 | disposition home health service (06) | DRG 280 ==
LOC: ER 10:41 → 2 SOUTH 11:27
DX: I13.0 Hypertensive heart and chronic kidney disease with heart failure and stage 1 through stage 4 chronic kidney disease, or unspecified chronic kidney disease (principal); I21.4 Non-ST elevation (NSTEMI) myocardial infarction; I50.43 Acute on chronic combined systolic (congestive) and diastolic (congestive) heart failure; E11.22 Type 2 diabetes mellitus with diabetic chronic kidney disease; I27.20 Pulmonary hypertension, unspecified; N18.3 Chronic kidney disease, stage 3 (moderate); G47.00 Insomnia, unspecified; I25.119 Atherosclerotic heart disease of native coronary artery with unspecified angina pectoris; I25.2 Old myocardial infarction; I48.91 Unspecified atrial fibrillation; K21.9 Gastro-esophageal reflux disease without esophagitis; K59.00 Constipation, unspecified; Z82.49 Family history of ischemic heart disease and other diseases of the circulatory system; Z83.3 Family history of diabetes mellitus; Z85.3 Personal history of malignant neoplasm of breast; Z90.49 Acquired absence of other specified parts of digestive tract; Z90.710 Acquired absence of both cervix and uterus; Z95.5 Presence of coronary angioplasty implant and graft; Z96.659 Presence of unspecified artificial knee joint; Z85.9 Personal history of malignant neoplasm, unspecified; Z88.8 Allergy status to other drugs, medicaments and biological substances; Z91.041 Radiographic dye allergy status; D64.9 Anemia, unspecified
CPT/HCPCS: 36415; 71010; 80047; 80048; 80076; 82728; 82962; 83540; 83550; 83690; 83735; 83880; 84484; 85025; 85045; 85610; 85730; 93005; 94620; 96374; 96375; 97116-GP; 97161-GP; 97166-GO; 97530-GO; 97530-GP; 97535-GO; 99291; 99291-25; J0881; J1160; J1644; J1815; J2270; J3490; J8597

== ENCOUNTER 2017-06-20 14:30 | Inpatient (IN) | payer MEDICARE ==
[2017-06-20] MEDS: VANCOMYCIN 2 GM in IV DEXTROSE 5 %-0.2 % NACL 500 ML IV (16:30)
[2017-06-20 17:54] LABS: POC GLUCOSE 313 mg/dL (70-99)
[2017-06-20 18:00] LABS: ADD MAN DIFF? NO
[2017-06-20] MEDS ORDERED: ceFAZolin SODIUM 1 GM in IV DEXTROSE 5% 50 ML IV (18:00)
[2017-06-20 18:09] LABS: BASO # 0.1 x10^3/uL (0.0-0.2); BASO % 1 % (0-3); EOS # 0.4 x10^3/uL (0.0-0.7); EOS % 4 % (0-3); HEMATOCRIT 28.7 % (36.0-47.0); HEMOGLOBIN 9.6 g/dL (12.0-15.5); LYMPH # 1.4 x10^3/uL (1.0-4.8); LYMPH % 14 % (24-48); MEAN CORPUSCULAR HEMOGLOBIN 29 pg (25-35); MEAN CORPUSCULAR HGB CONC 34 g/dL (31-37); MEAN CORPUSCULAR VOLUME 86 fL (79-100); MONO # 0.6 x10^3/uL (0.0-1.1); MONO % 6 % (0-9); NEUT # 7.2 x10^3uL (1.8-7.7); NEUT % 75 % (31-73); PLATELET COUNT 331 x10^3/uL (140-400); RED BLOOD COUNT 3.34 x10^6/uL (3.50-5.40); RED CELL DISTRIBUTION WIDTH 17.9 % (11.5-14.5); WHITE BLOOD COUNT 9.6 x10^3/uL (4.0-11.0)
[2017-06-20 18:13] LABS: ANION GAP 8 (6-14); BLOOD UREA NITROGEN 62 mg/dL (7-20); BUN/CREATININE RATIO 44 (6-20); CALCIUM 9.6 mg/dL (8.5-10.1); CARBON DIOXIDE 34 mmol/L (21-32); CHLORIDE 95 mmol/L (98-107); CREATININE 1.4 mg/dL (0.6-1.0); GFR 36.1; GLUCOSE 305 mg/dL (70-99); POTASSIUM 3.5 mmol/L (3.5-5.1); SODIUM 137 mmol/L (136-145)
[2017-06-20 18:18] LABS: PROTHROMBIN TIME PATIENT 29.6 SEC (11.7-14.0)
[2017-06-20 18:19] LABS: ALBUMIN 2.5 g/dL (3.4-5.0); ALBUMIN/GLOBULIN RATIO 0.5 (1.0-1.7); ALK PHOS 128 U/L (46-116); ALT (SGPT) 13 U/L (14-59); AST (SGOT) 15 U/L (15-37); TOTAL BILIRUBIN 0.3 mg/dL (0.2-1.0)
[2017-06-20] MEDS: VANCOMYCIN PER PHARMACY MC (20:18)
[2017-06-20] MEDS ORDERED: BISACODYL 10 MG SUPP.RECT. RC (20:30)
[2017-06-20] MEDS: DARBEPOETIN ALFA 60 MCG/0.3 ML DISP.SYRIN. SQ (22:13)
[2017-06-20] MEDS: ceFAZolin SODIUM IV Push 1 GM VIAL. IVP (22:14)
[2017-06-20] MEDS: ATORVASTATIN CALCIUM 40 MG TABLET. PO (22:14)
[2017-06-20] MEDS: DOCUSATE SODIUM 100 MG CAPSULE. PO (22:15)
[2017-06-20] MEDS: METOPROLOL TART IMMED RELEASE 25 MG TABLET. PO (22:15)
[2017-06-20] MEDS: HYDROcodone/APAP 5/325MG 1 TAB TABLET PO (22:16)
[2017-06-20] MEDS: MECLIZINE HCL 12.5 MG TABLET. PO (22:17)
[2017-06-20] MEDS: INSULIN ASPART 300 UNITS/3 ML INSULN.PEN SQ (22:29)
[2017-06-20 22:58] LABS: POC GLUCOSE 385 mg/dL (70-99)
[2017-06-21] MEDS: ceFAZolin SODIUM IV Push 1 GM VIAL. IVP ×4 (01:23→22:43)
[2017-06-21 08:08] LABS: POC GLUCOSE 207 mg/dL (70-99)
[2017-06-21] MEDS: POLYETHYLENE GLYCOL 3350 17 GM PACKET. PO (09:25)
[2017-06-21] MEDS: MECLIZINE HCL 12.5 MG TABLET. PO ×2 (09:26→22:19)
[2017-06-21] MEDS: BUMETANIDE 1 MG TABLET. PO ×2 (09:26→16:07)
[2017-06-21] MEDS: PANTOPRAZOLE 40 MG TABLET.DR. PO (09:26)
[2017-06-21] MEDS: FUROSEMIDE 80 MG TABLET. PO (09:26)
[2017-06-21] MEDS: ASPIRIN 325 MG TABLET PO (09:26)
[2017-06-21] MEDS: CALCIUM CARB/VIT D3 500/200 TABLET. PO (09:26)
[2017-06-21] MEDS: METOPROLOL TART IMMED RELEASE 25 MG TABLET. PO ×2 (09:27→22:19)
[2017-06-21] MEDS: FERROUS SULFATE 325 MG TABLET. PO (09:27)
[2017-06-21] MEDS: HYDROcodone/APAP 5/325MG 1 TAB TABLET PO ×2 (09:28→22:18)
[2017-06-21] MEDS: LOSARTAN POTASSIUM 50 MG TABLET. PO (09:28)
[2017-06-21] MEDS: metOLazone 2.5 MG TABLET PO (09:29)
[2017-06-21] MEDS: INSULIN ASPART 300 UNITS/3 ML INSULN.PEN SQ ×3 (09:33→18:22)
[2017-06-21] MEDS: [UNRECOGNIZED DRUG - OTHER] SQ (09:34)
[2017-06-21] MEDS: INSULIN DEGLUDEC SQ (09:34)
[2017-06-21 11:15] LABS: POC GLUCOSE 317 mg/dL (70-99)
[2017-06-21] MEDS ORDERED: VANCOMYCIN 1 GM in IV DEXTROSE 5% 250 ML IV (12:00)
[2017-06-21] MEDS: VANCOMYCIN PER PHARMACY MC (15:11)
[2017-06-21] MEDS: DEXTROSE ORAL GEL 15 GM TUBE. PO (15:32)
[2017-06-21 15:39] LABS: POC GLUCOSE 40 mg/dL (70-99)
[2017-06-21 15:39] LABS: POC GLUCOSE 71 mg/dL (70-99)
[2017-06-21 16:01] LABS: GLUCOSE 84 mg/dL (70-99)
[2017-06-21] MEDS: VANCOMYCIN 1.25 GM in IV DEXTROSE 5% 250 ML IV (16:08)
[2017-06-21 17:21] LABS: POC GLUCOSE 185 mg/dL (70-99)
[2017-06-21 20:52] LABS: POC GLUCOSE 295 mg/dL (70-99)
[2017-06-21] MEDS: DOCUSATE SODIUM 100 MG CAPSULE. PO (22:18)
[2017-06-21] MEDS: ATORVASTATIN CALCIUM 40 MG TABLET. PO (22:19)
[2017-06-21] MEDS: LACTOBACILLUS RHAMNOSUS GG 1 CAPSULE. PO (22:19)
[2017-06-22] MEDS: ceFAZolin SODIUM IV Push 1 GM VIAL. IVP ×4 (00:08→17:42)
[2017-06-22] MEDS: MORPHINE SULFATE 5 MG, KETOROLAC 30 MG, ROPIVacaine 0.5% PF 60 ML, EPINEPHrine 0.5 MG i... INT ART (06:00)
[2017-06-22] MEDS ORDERED: HYDROmorphone 2 MG/ML VIAL IV (07:00)
[2017-06-22] MEDS ORDERED: LIDOCAINE 1% PF 2 ML VIAL. ID (07:00)
[2017-06-22 07:10] LABS: POC GLUCOSE 177 mg/dL (70-99)
[2017-06-22] MEDS ORDERED: SCOPOLAMINE 1.5MG PATCH. TD (07:12)
[2017-06-22] MEDS ORDERED: FAMOTIDINE 20 MG/2 ML VIAL (07:13)
[2017-06-22] MEDS ORDERED: ONDANSETRON PF 4 MG/2 ML VIAL. (07:13)
[2017-06-22] MEDS ORDERED: ROCURONIUM 50 MG/5 ML VIAL. (07:13)
[2017-06-22] MEDS ORDERED: LIDOCAINE 2% PF Vial for OR 5 ML VIAL. (07:13)
[2017-06-22] MEDS ORDERED: ETOMIDATE 20 MG/10 ML VIAL. IV (07:13)
[2017-06-22] MEDS ORDERED: fentaNYL PF VIAL 100 MCG/2 ML VIAL ×2 (07:14→08:35)
[2017-06-22] MEDS: SCOPOLAMINE 1.5MG PATCH. TD (07:16)
[2017-06-22] MEDS ORDERED: PHENYLEPHRINE in 0.9% NACL PF 1 MG/10 ML SYRINGE. IV (07:17)
[2017-06-22] MEDS: IV RINGERS,LACTATED 1000ML 1,000 ML IV (07:17)
[2017-06-22] MEDS: INSULIN ASPART 300 UNITS/3 ML INSULN.PEN SQ ×4 (07:30→22:36)
[2017-06-22] MEDS ORDERED: diphenhydrAMINE 50 MG/ML VIAL (07:59)
[2017-06-22] MEDS: INSULIN DEGLUDEC SQ (08:00)
[2017-06-22] MEDS: [UNRECOGNIZED DRUG - OTHER] SQ (08:00)
[2017-06-22 08:20] LABS: HEMOGLOBIN 9.3 g/dL (12.0-15.5)
[2017-06-22 08:21] LABS: HEMATOCRIT 27.8 % (36.0-47.0)
[2017-06-22 08:38] LABS: INR 1.5 (0.8-1.1); PROTHROMBIN TIME PATIENT 17.4 SEC (11.7-14.0)
[2017-06-22] MEDS ORDERED: NEOSTIGMINE METHYLSULFATE 5 MG/5 ML SYRINGE. (08:50)
[2017-06-22] MEDS ORDERED: GLYCOPYRROLATE 1 MG/5 ML VIAL. (08:50)
[2017-06-22] MEDS: PANTOPRAZOLE 40 MG TABLET.DR. PO (09:00)
[2017-06-22] MEDS: LACTOBACILLUS RHAMNOSUS GG 1 CAPSULE. PO ×2 (09:00→21:04)
[2017-06-22] MEDS: FERROUS SULFATE 325 MG TABLET. PO (09:00)
[2017-06-22] MEDS: MECLIZINE HCL 12.5 MG TABLET. PO ×2 (09:00→21:05)
[2017-06-22] MEDS: metOLazone 2.5 MG TABLET PO (09:00)
[2017-06-22] MEDS: METOPROLOL TART IMMED RELEASE 25 MG TABLET. PO ×2 (09:00→21:08)
[2017-06-22] MEDS: CALCIUM CARB/VIT D3 500/200 TABLET. PO (09:00)
[2017-06-22] MEDS: FUROSEMIDE 80 MG TABLET. PO (09:00)
[2017-06-22] MEDS: LOSARTAN POTASSIUM 50 MG TABLET. PO (09:00)
[2017-06-22] MEDS: ASPIRIN 325 MG TABLET PO (09:00)
[2017-06-22] MEDS: BUMETANIDE 1 MG TABLET. PO ×2 (09:00→17:43)
[2017-06-22] MEDS: POLYETHYLENE GLYCOL 3350 17 GM PACKET. PO (09:00)
[2017-06-22] MEDS ORDERED: SEVOFLURANE 61 TO 120 MINUTES. IH (09:17)
[2017-06-22] MEDS ORDERED: PROCHLORPERAZINE 10 MG/2 ML VIAL. (10:06)
[2017-06-22] MEDS: PROCHLORPERAZINE 10 MG/2 ML VIAL. IV (10:09)
[2017-06-22 10:13] LABS: POC GLUCOSE 220 mg/dL (70-99)
[2017-06-22] MEDS: ONDANSETRON PF 4 MG/2 ML VIAL. IV (10:59)
[2017-06-22] MEDS: MORPHINE SULFATE 2 MG/ML DISP.SYRIN. IV (11:46)
[2017-06-22 11:47] LABS: POC GLUCOSE 263 mg/dL (70-99)
[2017-06-22 13:38] LABS: CREATININE 1.2 mg/dL (0.6-1.0)
[2017-06-22 13:38] LABS: GFR 43.1
[2017-06-22] MEDS: HYDROcodone/APAP 5/325MG 1 TAB TABLET PO (13:52)
[2017-06-22] MEDS: MORPHINE SULFATE 4 MG/ML DISP.SYRIN. IV (14:30)
[2017-06-22] MEDS: VANCOMYCIN PER PHARMACY MC (16:30)
[2017-06-22 16:49] LABS: POC GLUCOSE 384 mg/dL (70-99)
[2017-06-22] MEDS: VANCOMYCIN 1.25 GM in IV DEXTROSE 5% 250 ML IV (17:43)
[2017-06-22] MEDS: fentaNYL PF VIAL 100 MCG/2 ML VIAL IV (17:48)
[2017-06-22] MEDS: ATORVASTATIN CALCIUM 40 MG TABLET. PO (21:04)
[2017-06-22] MEDS: DOCUSATE SODIUM 100 MG CAPSULE. PO (21:04)
[2017-06-22] MEDS: ACETAMINOPHEN 500 MG TABLET PO (21:05)
[2017-06-22 21:09] LABS: POC GLUCOSE 329 mg/dL (70-99)
[2017-06-22] MEDS ORDERED: INSULIN ASPART 300 UNITS/3 ML INSULN.PEN SQ (22:30)
[2017-06-23] MEDS: ceFAZolin SODIUM IV Push 1 GM VIAL. IVP ×3 (00:05→13:08)
[2017-06-23] MEDS: HYDROcodone/APAP 10/325 1 TAB TABLET PO ×4 (00:31→21:49)
[2017-06-23] MEDS: ACETAMINOPHEN 500 MG TABLET PO (05:52)
[2017-06-23] MEDS: INSULIN ASPART 300 UNITS/3 ML INSULN.PEN SQ ×6 (07:30→17:00)
[2017-06-23] MEDS: INSULIN DEGLUDEC SQ (08:00)
[2017-06-23] MEDS: [UNRECOGNIZED DRUG - OTHER] SQ (08:00)
[2017-06-23 08:39] LABS: POC GLUCOSE 314 mg/dL (70-99)
[2017-06-23] MEDS: LACTOBACILLUS RHAMNOSUS GG 1 CAPSULE. PO ×2 (10:12→21:48)
[2017-06-23] MEDS: POLYETHYLENE GLYCOL 3350 17 GM PACKET. PO (10:12)
[2017-06-23] MEDS: BUMETANIDE 1 MG TABLET. PO ×2 (10:12→18:19)
[2017-06-23] MEDS: metOLazone 2.5 MG TABLET PO (10:12)
[2017-06-23] MEDS: CALCIUM CARB/VIT D3 500/200 TABLET. PO (10:13)
[2017-06-23] MEDS: FUROSEMIDE 80 MG TABLET. PO (10:13)
[2017-06-23] MEDS: ASPIRIN 325 MG TABLET PO (10:13)
[2017-06-23] MEDS: MECLIZINE HCL 12.5 MG TABLET. PO ×2 (10:13→21:48)
[2017-06-23] MEDS: LOSARTAN POTASSIUM 50 MG TABLET. PO (10:14)
[2017-06-23] MEDS: FERROUS SULFATE 325 MG TABLET. PO (10:14)
[2017-06-23] MEDS: PANTOPRAZOLE 40 MG TABLET.DR. PO (10:14)
[2017-06-23] MEDS: METOPROLOL TART IMMED RELEASE 25 MG TABLET. PO ×2 (10:15→21:48)
[2017-06-23 12:00] LABS: POC GLUCOSE 322 mg/dL (70-99)
[2017-06-23] MEDS: VANCOMYCIN PER PHARMACY MC ×3 (13:39→16:41)
[2017-06-23] MEDS: PIPERACILLIN/TAZOBACTAM 3.375 GM in IV NORMAL SALINE 50ML 50 ML IV ×2 (15:00→18:22)
[2017-06-23 16:25] LABS: POC GLUCOSE 146 mg/dL (70-99)
[2017-06-23 16:35] LABS: VANC TR 21.9 mcg/mL (10.0-20.0)
[2017-06-23] MEDS ORDERED: ONDANSETRON ODT 4 MG TAB.RAPDIS. PO (18:30)
[2017-06-23] MEDS: DOCUSATE SODIUM 100 MG CAPSULE. PO (21:48)
[2017-06-23] MEDS: ATORVASTATIN CALCIUM 40 MG TABLET. PO (21:48)
[2017-06-23 21:57] LABS: POC GLUCOSE 126 mg/dL (70-99)
[2017-06-24] MEDS: HYDROcodone/APAP 10/325 1 TAB TABLET PO ×3 (04:24→20:00)
[2017-06-24] MEDS: VANCOMYCIN 1 GM in IV 1/2 NORMAL SALINE 250 ML IV (05:00)
[2017-06-24] MEDS: PIPERACILLIN/TAZOBACTAM 3.375 GM in IV NORMAL SALINE 50ML 50 ML IV ×4 (05:15→17:23)
[2017-06-24 05:18] LABS: POC GLUCOSE 159 mg/dL (70-99)
[2017-06-24 05:29] LABS: ADD MAN DIFF? NO
[2017-06-24 05:37] LABS: BASO % 1 % (0-3); EOS # 0.3 x10^3/uL (0.0-0.7); EOS % 3 % (0-3); HEMATOCRIT 21.9 % (36.0-47.0); HEMOGLOBIN 7.3 g/dL (12.0-15.5); LYMPH # 0.9 x10^3/uL (1.0-4.8); LYMPH % 12 % (24-48); MEAN CORPUSCULAR HEMOGLOBIN 29 pg (25-35); MEAN CORPUSCULAR HGB CONC 33 g/dL (31-37); MEAN CORPUSCULAR VOLUME 87 fL (79-100); MONO # 0.5 x10^3/uL (0.0-1.1); MONO % 6 % (0-9); NEUT % 78 % (31-73); PLATELET COUNT 253 x10^3/uL (140-400); RED BLOOD COUNT 2.52 x10^6/uL (3.50-5.40); RED CELL DISTRIBUTION WIDTH 17.8 % (11.5-14.5); WHITE BLOOD COUNT 7.7 x10^3/uL (4.0-11.0)
[2017-06-24 05:48] LABS: ANION GAP 5 (6-14); BLOOD UREA NITROGEN 62 mg/dL (7-20); CALCIUM 9.1 mg/dL (8.5-10.1); CARBON DIOXIDE 32 mmol/L (21-32); CHLORIDE 96 mmol/L (98-107); CREATININE 1.5 mg/dL (0.6-1.0); GFR 33.3; GLUCOSE 168 mg/dL (70-99); POTASSIUM 3.6 mmol/L (3.5-5.1); SODIUM 133 mmol/L (136-145)
[2017-06-24] MEDS: INSULIN ASPART 300 UNITS/3 ML INSULN.PEN SQ ×6 (08:00→17:00)
[2017-06-24] MEDS: FUROSEMIDE 80 MG TABLET. PO (09:10)
[2017-06-24] MEDS: ASPIRIN 325 MG TABLET PO (09:10)
[2017-06-24] MEDS: MECLIZINE HCL 12.5 MG TABLET. PO ×2 (09:10→20:00)
[2017-06-24] MEDS: metOLazone 2.5 MG TABLET PO (09:11)
[2017-06-24] MEDS: FERROUS SULFATE 325 MG TABLET. PO (09:11)
[2017-06-24] MEDS: LOSARTAN POTASSIUM 50 MG TABLET. PO (09:11)
[2017-06-24] MEDS: METOPROLOL TART IMMED RELEASE 25 MG TABLET. PO ×2 (09:11→20:00)
[2017-06-24 09:12] LABS: POC GLUCOSE 240 mg/dL (70-99)
[2017-06-24] MEDS: BUMETANIDE 1 MG TABLET. PO ×2 (09:12→15:29)
[2017-06-24] MEDS: LACTOBACILLUS RHAMNOSUS GG 1 CAPSULE. PO ×2 (09:12→20:00)
[2017-06-24] MEDS: DOCUSATE SODIUM 100 MG CAPSULE. PO ×2 (09:12→20:00)
[2017-06-24] MEDS: POLYETHYLENE GLYCOL 3350 17 GM PACKET. PO (09:12)
[2017-06-24] MEDS: CALCIUM CARB/VIT D3 500/200 TABLET. PO (09:12)
[2017-06-24] MEDS: PANTOPRAZOLE 40 MG TABLET.DR. PO (09:12)
[2017-06-24] MEDS: [UNRECOGNIZED DRUG - OTHER] SQ (09:15)
[2017-06-24] MEDS: INSULIN DEGLUDEC SQ (09:15)
[2017-06-24 12:26] LABS: POC GLUCOSE 168 mg/dL (70-99)
[2017-06-24] MEDS: VANCOMYCIN PER PHARMACY MC (14:46)
[2017-06-24] MEDS: DEXTROSE 50% 25 GM / 50ML DISP.SYRIN. IV (16:02)
[2017-06-24 16:21] LABS: POC GLUCOSE 57 mg/dL (70-99)
[2017-06-24 17:09] LABS: POC GLUCOSE 146 mg/dL (70-99)
[2017-06-24] MEDS: ATORVASTATIN CALCIUM 40 MG TABLET. PO (20:00)
[2017-06-24 21:54] LABS: POC GLUCOSE 178 mg/dL (70-99)
[2017-06-25] MEDS: HYDROcodone/APAP 10/325 1 TAB TABLET PO ×4 (00:43→21:05)
[2017-06-25] MEDS: PANTOPRAZOLE 40 MG TABLET.DR. PO (05:15)
[2017-06-25] MEDS: PIPERACILLIN/TAZOBACTAM 3.375 GM in IV NORMAL SALINE 50ML 50 ML IV ×2 (05:16)
[2017-06-25] MEDS: VANCOMYCIN 1 GM in IV DEXTROSE 5 %-0.2 % NACL 250 ML IV (05:16)
[2017-06-25 05:56] LABS: CREATININE 1.7 mg/dL (0.6-1.0)
[2017-06-25 05:56] LABS: GFR 28.8
[2017-06-25] MEDS: INSULIN ASPART 300 UNITS/3 ML INSULN.PEN SQ ×7 (08:00→22:02)
[2017-06-25 08:12] LABS: POC GLUCOSE 221 mg/dL (70-99)
[2017-06-25] MEDS: INSULIN DEGLUDEC SQ (08:52)
[2017-06-25] MEDS: [UNRECOGNIZED DRUG - OTHER] SQ (08:52)
[2017-06-25] MEDS: MECLIZINE HCL 12.5 MG TABLET. PO ×2 (09:00→21:02)
[2017-06-25] MEDS: DOCUSATE SODIUM 100 MG CAPSULE. PO ×2 (09:00→21:03)
[2017-06-25] MEDS: BUMETANIDE 1 MG TABLET. PO ×2 (09:00→14:17)
[2017-06-25] MEDS: POLYETHYLENE GLYCOL 3350 17 GM PACKET. PO (09:00)
[2017-06-25] MEDS: FUROSEMIDE 80 MG TABLET. PO (10:10)
[2017-06-25] MEDS: ASPIRIN 325 MG TABLET PO (10:10)
[2017-06-25] MEDS: metOLazone 2.5 MG TABLET PO (10:10)
[2017-06-25] MEDS: METOPROLOL TART IMMED RELEASE 25 MG TABLET. PO ×2 (10:11→21:03)
[2017-06-25] MEDS: FERROUS SULFATE 325 MG TABLET. PO (10:12)
[2017-06-25] MEDS: LOSARTAN POTASSIUM 50 MG TABLET. PO (10:12)
[2017-06-25] MEDS: CALCIUM CARB/VIT D3 500/200 TABLET. PO (10:12)
[2017-06-25 11:03] LABS: POC GLUCOSE 207 mg/dL (70-99)
[2017-06-25 11:38] LABS: POC GLUCOSE 191 mg/dL (70-99)
[2017-06-25] MEDS: VANCOMYCIN PER PHARMACY MC (12:37)
[2017-06-25] MEDS: LACTOBACILLUS RHAMNOSUS GG 1 CAPSULE. PO ×2 (14:16→21:03)
[2017-06-25] MEDS: DEXTROSE 50% 25 GM / 50ML DISP.SYRIN. IV (15:49)
[2017-06-25 16:13] LABS: POC GLUCOSE 44 mg/dL (70-99)
[2017-06-25 16:14] LABS: POC GLUCOSE 93 mg/dL (70-99)
[2017-06-25 17:42] LABS: POC GLUCOSE 88 mg/dL (70-99)
[2017-06-25] MEDS: NITROGLYCERIN SUBLINGUAL 0.4 MG BOTTLE OF 25. SL ×2 (21:01→21:21)
[2017-06-25] MEDS: ATORVASTATIN CALCIUM 40 MG TABLET. PO (21:03)
[2017-06-25 21:40] LABS: POC GLUCOSE 333 mg/dL (70-99)
[2017-06-25] MEDS: MORPHINE SULFATE 4 MG/ML DISP.SYRIN. IV (21:55)
[2017-06-26 04:54] LABS: GFR 33.3
[2017-06-26 04:54] LABS: CREATININE 1.5 mg/dL (0.6-1.0)
[2017-06-26 04:59] LABS: VANC TR 22.9 mcg/mL (10.0-20.0)
[2017-06-26] MEDS: [UNRECOGNIZED DRUG - OTHER] SQ (08:00)
[2017-06-26] MEDS: INSULIN ASPART 300 UNITS/3 ML INSULN.PEN SQ ×6 (08:00→17:41)
[2017-06-26] MEDS: INSULIN DEGLUDEC SQ (08:00)
[2017-06-26 08:59] LABS: POC GLUCOSE 149 mg/dL (70-99)
[2017-06-26] MEDS: VANCOMYCIN PER PHARMACY MC ×4 (08:59→16:19)
[2017-06-26] MEDS: METOPROLOL TART IMMED RELEASE 25 MG TABLET. PO ×2 (09:00→21:03)
[2017-06-26] MEDS: ASPIRIN 325 MG TABLET PO (09:12)
[2017-06-26] MEDS: metOLazone 2.5 MG TABLET PO (09:12)
[2017-06-26] MEDS: FERROUS SULFATE 325 MG TABLET. PO (09:12)
[2017-06-26] MEDS: BUMETANIDE 1 MG TABLET. PO ×2 (09:12→16:50)
[2017-06-26] MEDS: MECLIZINE HCL 12.5 MG TABLET. PO ×2 (09:12→21:02)
[2017-06-26] MEDS: LOSARTAN POTASSIUM 50 MG TABLET. PO (09:13)
[2017-06-26] MEDS: PANTOPRAZOLE 40 MG TABLET.DR. PO (09:14)
[2017-06-26] MEDS: CALCIUM CARB/VIT D3 500/200 TABLET. PO (09:14)
[2017-06-26] MEDS: POLYETHYLENE GLYCOL 3350 17 GM PACKET. PO (09:14)
[2017-06-26] MEDS: FUROSEMIDE 80 MG TABLET. PO (09:14)
[2017-06-26] MEDS: DOCUSATE SODIUM 100 MG CAPSULE. PO ×2 (09:14→21:02)
[2017-06-26] MEDS: LACTOBACILLUS RHAMNOSUS GG 1 CAPSULE. PO ×2 (09:14→21:02)
[2017-06-26 12:05] LABS: POC GLUCOSE 184 mg/dL (70-99)
[2017-06-26] MEDS ORDERED: PIPERACILLIN/TAZOBACTAM 3.375 GM in IV NORMAL SALINE 50ML 50 ML IV (16:30)
[2017-06-26 17:23] LABS: POC GLUCOSE 148 mg/dL (70-99)
[2017-06-26] MEDS ORDERED: VANCOMYCIN 1 GM in IV 1/2 NORMAL SALINE 250 ML IV (21:00)
[2017-06-26] MEDS ORDERED: VANCOMYCIN 750 MG in IV 1/2 NORMAL SALINE 250 ML IV (21:00)
[2017-06-26] MEDS: ATORVASTATIN CALCIUM 40 MG TABLET. PO (21:02)
[2017-06-26] MEDS: HYDROcodone/APAP 5/325MG 1 TAB TABLET PO (21:06)
[2017-06-27] MEDS: VANCOMYCIN RANDOM LEVEL. MC (05:55)
[2017-06-27 06:09] LABS: GFR 33.3
[2017-06-27 06:09] LABS: CREATININE 1.5 mg/dL (0.6-1.0)
[2017-06-27 06:35] LABS: POC GLUCOSE 80 mg/dL (70-99)
[2017-06-27 06:35] LABS: POC GLUCOSE 163 mg/dL (70-99)
[2017-06-27] MEDS: INSULIN ASPART 300 UNITS/3 ML INSULN.PEN SQ ×6 (08:00→18:06)
[2017-06-27 08:47] LABS: POC GLUCOSE 136 mg/dL (70-99)
[2017-06-27] MEDS: POLYETHYLENE GLYCOL 3350 17 GM PACKET. PO (09:00)
[2017-06-27] MEDS: MECLIZINE HCL 12.5 MG TABLET. PO ×2 (09:02→20:47)
[2017-06-27] MEDS: DOCUSATE SODIUM 100 MG CAPSULE. PO ×2 (09:02→20:47)
[2017-06-27] MEDS: BUMETANIDE 1 MG TABLET. PO ×2 (09:02→15:27)
[2017-06-27] MEDS: FUROSEMIDE 80 MG TABLET. PO (09:02)
[2017-06-27] MEDS: CALCIUM CARB/VIT D3 500/200 TABLET. PO (09:03)
[2017-06-27] MEDS: ASPIRIN 325 MG TABLET PO (09:03)
[2017-06-27] MEDS: FERROUS SULFATE 325 MG TABLET. PO (09:03)
[2017-06-27] MEDS: METOPROLOL TART IMMED RELEASE 25 MG TABLET. PO ×2 (09:03→20:47)
[2017-06-27] MEDS: LACTOBACILLUS RHAMNOSUS GG 1 CAPSULE. PO ×2 (09:03→20:53)
[2017-06-27] MEDS: PANTOPRAZOLE 40 MG TABLET.DR. PO (09:03)
[2017-06-27] MEDS: LOSARTAN POTASSIUM 50 MG TABLET. PO (09:03)
[2017-06-27] MEDS: [UNRECOGNIZED DRUG - OTHER] SQ (09:05)
[2017-06-27] MEDS: INSULIN DEGLUDEC SQ (09:05)
[2017-06-27] MEDS: metOLazone 2.5 MG TABLET PO (09:15)
[2017-06-27 11:13] LABS: CREATINE KINASE 25 U/L (26-192)
[2017-06-27 11:54] LABS: POC GLUCOSE 197 mg/dL (70-99)
[2017-06-27] MEDS: DAPTOmycin 540 MG in IV NORMAL SALINE 50ML 50 ML IV (13:27)
[2017-06-27] MEDS: MULTIVITAMIN with MINERAL TABLET. PO (15:26)
[2017-06-27] MEDS: ASCORBIC ACID 500 MG TABLET PO (15:26)
[2017-06-27] MEDS: WARFARIN 5 MG TABLET. PO (15:27)
[2017-06-27 16:41] LABS: POC GLUCOSE 121 mg/dL (70-99)
[2017-06-27 20:42] LABS: POC GLUCOSE 127 mg/dL (70-99)
[2017-06-27] MEDS: ACETAMINOPHEN 500 MG TABLET PO (20:47)
[2017-06-27] MEDS: ATORVASTATIN CALCIUM 40 MG TABLET. PO (20:47)
[2017-06-27] MEDS: DARBEPOETIN ALFA 60 MCG/0.3 ML DISP.SYRIN. SQ (20:48)
[2017-06-28] MEDS: HYDROcodone/APAP 10/325 1 TAB TABLET PO (00:47)
[2017-06-28 05:53] LABS: PROTHROMBIN TIME PATIENT 12.4 SEC (11.7-14.0)
[2017-06-28 06:06] LABS: GFR 33.3
[2017-06-28 06:06] LABS: CREATININE 1.5 mg/dL (0.6-1.0)
[2017-06-28 07:55] LABS: POC GLUCOSE 171 mg/dL (70-99)
[2017-06-28] MEDS: [UNRECOGNIZED DRUG - OTHER] SQ (08:00)
[2017-06-28] MEDS: INSULIN DEGLUDEC SQ (08:00)
[2017-06-28] MEDS: ASPIRIN 325 MG TABLET PO (08:49)
[2017-06-28] MEDS: CALCIUM CARB/VIT D3 500/200 TABLET. PO (08:49)
[2017-06-28] MEDS: MECLIZINE HCL 12.5 MG TABLET. PO ×2 (08:49→21:37)
[2017-06-28] MEDS: BUMETANIDE 1 MG TABLET. PO ×2 (08:50→17:56)
[2017-06-28] MEDS: DOCUSATE SODIUM 100 MG CAPSULE. PO ×2 (08:50→21:00)
[2017-06-28] MEDS: ASCORBIC ACID 500 MG TABLET PO (08:50)
[2017-06-28] MEDS: LACTOBACILLUS RHAMNOSUS GG 1 CAPSULE. PO ×2 (08:50→21:37)
[2017-06-28] MEDS: FUROSEMIDE 80 MG TABLET. PO (08:50)
[2017-06-28] MEDS: metOLazone 2.5 MG TABLET PO (08:50)
[2017-06-28] MEDS: PANTOPRAZOLE 40 MG TABLET.DR. PO (08:51)
[2017-06-28] MEDS: HYDROcodone/APAP 5/325MG 1 TAB TABLET PO (08:51)
[2017-06-28] MEDS: FERROUS SULFATE 325 MG TABLET. PO (08:51)
[2017-06-28] MEDS: MULTIVITAMIN with MINERAL TABLET. PO (08:52)
[2017-06-28] MEDS: POLYETHYLENE GLYCOL 3350 17 GM PACKET. PO (08:53)
[2017-06-28] MEDS: LOSARTAN POTASSIUM 50 MG TABLET. PO (08:54)
[2017-06-28] MEDS: METOPROLOL TART IMMED RELEASE 25 MG TABLET. PO ×2 (08:54→21:39)
[2017-06-28] MEDS: INSULIN ASPART 300 UNITS/3 ML INSULN.PEN SQ ×6 (09:07→18:07)
[2017-06-28 11:38] LABS: POC GLUCOSE 235 mg/dL (70-99)
[2017-06-28] MEDS: DAPTOmycin 540 MG in IV NORMAL SALINE 50ML 50 ML IV (13:03)
[2017-06-28 17:19] LABS: POC GLUCOSE 143 mg/dL (70-99)
[2017-06-28 20:18] LABS: POC GLUCOSE 129 mg/dL (70-99)
[2017-06-28] MEDS: ATORVASTATIN CALCIUM 40 MG TABLET. PO (21:36)
[2017-06-29] MEDS: INSULIN DEGLUDEC SQ (08:00)
[2017-06-29] MEDS: INSULIN ASPART 300 UNITS/3 ML INSULN.PEN SQ ×4 (08:00→13:11)
[2017-06-29] MEDS: [UNRECOGNIZED DRUG - OTHER] SQ (08:00)
[2017-06-29] MEDS: POLYETHYLENE GLYCOL 3350 17 GM PACKET. PO (09:07)
[2017-06-29] MEDS: LACTOBACILLUS RHAMNOSUS GG 1 CAPSULE. PO (09:12)
[2017-06-29] MEDS: BUMETANIDE 1 MG TABLET. PO (09:12)
[2017-06-29] MEDS: ASCORBIC ACID 500 MG TABLET PO (09:12)
[2017-06-29] MEDS: ASPIRIN 325 MG TABLET PO (09:12)
[2017-06-29] MEDS: FERROUS SULFATE 325 MG TABLET. PO (09:12)
[2017-06-29] MEDS: PANTOPRAZOLE 40 MG TABLET.DR. PO (09:12)
[2017-06-29] MEDS: MECLIZINE HCL 12.5 MG TABLET. PO (09:13)
[2017-06-29] MEDS: HYDROcodone/APAP 10/325 1 TAB TABLET PO (09:13)
[2017-06-29] MEDS: metOLazone 2.5 MG TABLET PO (09:13)
[2017-06-29] MEDS: METOPROLOL TART IMMED RELEASE 25 MG TABLET. PO (09:13)
[2017-06-29] MEDS: DOCUSATE SODIUM 100 MG CAPSULE. PO (09:13)
[2017-06-29] MEDS: MULTIVITAMIN with MINERAL TABLET. PO (09:14)
[2017-06-29] MEDS: LOSARTAN POTASSIUM 50 MG TABLET. PO (09:14)
[2017-06-29] MEDS: CALCIUM CARB/VIT D3 500/200 TABLET. PO (09:14)
[2017-06-29] MEDS: FUROSEMIDE 80 MG TABLET. PO (09:14)
[2017-06-29 09:16] LABS: POC GLUCOSE 193 mg/dL (70-99)
[2017-06-29] MEDS: DAPTOmycin 540 MG in IV NORMAL SALINE 50ML 50 ML IV (11:54)
[2017-06-29 12:45] LABS: POC GLUCOSE 223 mg/dL (70-99)
== END 2017-06-29 16:50 | DRG 464 ==
LOC: 2 SOUTH 06-25 22:39 → 4 NORTH 14:30
PROVIDERS: Internal Medicine Cardiovascular Disease
PROC: 0SRC0JZ Replacement of Right Knee Joint with Synthetic Substitute, Open Approach (ICD-10-PCS; principal; 2017-06-22 07:30)
PROC: 0SPC0JZ Removal of Synthetic Substitute from Right Knee Joint, Open Approach (ICD-10-PCS; 2017-06-22 07:30)
PROC: 0JBN0ZZ Excision of Right Lower Leg Subcutaneous Tissue and Fascia, Open Approach (ICD-10-PCS; 2017-06-22 07:30)
PROC: 02HV33Z Insertion of Infusion Device into Superior Vena Cava, Percutaneous Approach (ICD-10-PCS; 2017-06-22 07:37)
DX: T84.53XA Infection and inflammatory reaction due to internal right knee prosthesis, initial encounter (principal); M00.9 Pyogenic arthritis, unspecified; E11.22 Type 2 diabetes mellitus with diabetic chronic kidney disease; M00.861 Arthritis due to other bacteria, right knee; B95.62 Methicillin resistant Staphylococcus aureus infection as the cause of diseases classified elsewhere; E11.51 Type 2 diabetes mellitus with diabetic peripheral angiopathy without gangrene; I13.0 Hypertensive heart and chronic kidney disease with heart failure and stage 1 through stage 4 chronic kidney disease, or unspecified chronic kidney disease; M19.90 Unspecified osteoarthritis, unspecified site; E11.649 Type 2 diabetes mellitus with hypoglycemia without coma; E78.5 Hyperlipidemia, unspecified; I25.10 Atherosclerotic heart disease of native coronary artery without angina pectoris; I27.20 Pulmonary hypertension, unspecified; I48.91 Unspecified atrial fibrillation; I50.9 Heart failure, unspecified; K21.9 Gastro-esophageal reflux disease without esophagitis; N18.9 Chronic kidney disease, unspecified; S80.01XA Contusion of right knee, initial encounter; Y83.1 Surgical operation with implant of artificial internal device as the cause of abnormal reaction of the patient, or of later complication, without mention of misadventure at the time of the procedure; Z79.01 Long term (current) use of anticoagulants; Z79.4 Long term (current) use of insulin; Z79.82 Long term (current) use of aspirin; Z96.653 Presence of artificial knee joint, bilateral; Z95.5 Presence of coronary angioplasty implant and graft; Z90.710 Acquired absence of both cervix and uterus; Z85.3 Personal history of malignant neoplasm of breast; I25.2 Old myocardial infarction; Z91.041 Radiographic dye allergy status; Z98.49 Cataract extraction status, unspecified eye; Y92.89 Other specified places as the place of occurrence of the external cause; Z88.8 Allergy status to other drugs, medicaments and biological substances; Z91.048 Other nonmedicinal substance allergy status; Z83.3 Family history of diabetes mellitus; Z82.49 Family history of ischemic heart disease and other diseases of the circulatory system; Z82.3 Family history of stroke
CPT/HCPCS: 36415; 36569; 71045; 80048; 80053; 80202; 82550; 82565; 82947; 82962; 85014; 85018; 85025; 85610; 86850; 86900; 86901; 87040; 87071; 87075; 87186; 87205; 93005; 97110-GP; 97116-GP; 97161-GP; 97164-GP; 97166-GO; 97168-GO; 97535-GO; J0690; J0780; J0878; J0881; J1200; J1815; J2270; J2370; J2405; J2543; J2710; J3010; J3370; J3490; J7030; J7042; J7120; J8597; S0028

== ENCOUNTER → 2017-06-20 | Outpatient (CLI) | payer MEDICARE | END | disposition home or self-care (01) | LOC: PMGWOUND 12:03 | DX: T84.53XA Infection and inflammatory reaction due to internal right knee prosthesis, initial encounter (principal); K21.9 Gastro-esophageal reflux disease without esophagitis; I25.2 Old myocardial infarction; E11.22 Type 2 diabetes mellitus with diabetic chronic kidney disease; I13.0 Hypertensive heart and chronic kidney disease with heart failure and stage 1 through stage 4 chronic kidney disease, or unspecified chronic kidney disease; N18.9 Chronic kidney disease, unspecified; I50.33 Acute on chronic diastolic (congestive) heart failure; I25.10 Atherosclerotic heart disease of native coronary artery without angina pectoris; F41.9 Anxiety disorder, unspecified; I48.91 Unspecified atrial fibrillation; Z85.3 Personal history of malignant neoplasm of breast; Z96.651 Presence of right artificial knee joint; Z95.0 Presence of cardiac pacemaker; Z87.891 Personal history of nicotine dependence; Z95.5 Presence of coronary angioplasty implant and graft; Z90.710 Acquired absence of both cervix and uterus; X58.XXXA Exposure to other specified factors, initial encounter; Y93.9 Activity, unspecified; Y99.8 Other external cause status; Y92.9 Unspecified place or not applicable | CPT/HCPCS: 99214 ==

== ENCOUNTER → 2017-07-11 | Outpatient (CLI) | payer MEDICARE | END | disposition home or self-care (01) | LOC: PMGWOUND 10:15 | DX: T84.53XD Infection and inflammatory reaction due to internal right knee prosthesis, subsequent encounter (principal); A49.02 Methicillin resistant Staphylococcus aureus infection, unspecified site; I25.10 Atherosclerotic heart disease of native coronary artery without angina pectoris; K21.9 Gastro-esophageal reflux disease without esophagitis; E11.22 Type 2 diabetes mellitus with diabetic chronic kidney disease; I13.0 Hypertensive heart and chronic kidney disease with heart failure and stage 1 through stage 4 chronic kidney disease, or unspecified chronic kidney disease; N18.9 Chronic kidney disease, unspecified; I50.33 Acute on chronic diastolic (congestive) heart failure; E78.5 Hyperlipidemia, unspecified; I25.2 Old myocardial infarction; M00.9 Pyogenic arthritis, unspecified; E11.51 Type 2 diabetes mellitus with diabetic peripheral angiopathy without gangrene; M19.90 Unspecified osteoarthritis, unspecified site; I48.91 Unspecified atrial fibrillation; F41.9 Anxiety disorder, unspecified; Z85.3 Personal history of malignant neoplasm of breast; Z96.653 Presence of artificial knee joint, bilateral; Z90.710 Acquired absence of both cervix and uterus; Z79.4 Long term (current) use of insulin; Z79.01 Long term (current) use of anticoagulants; Y83.8 Other surgical procedures as the cause of abnormal reaction of the patient, or of later complication, without mention of misadventure at the time of the procedure | CPT/HCPCS: 97597; 97607 ==

== ENCOUNTER → 2017-07-13 | Outpatient (CLI) | payer MEDICARE | END | disposition home or self-care (01) | LOC: PMGWOUND 09:58 | DX: T84.53XD Infection and inflammatory reaction due to internal right knee prosthesis, subsequent encounter (principal); S81.001D Unspecified open wound, right knee, subsequent encounter; A49.02 Methicillin resistant Staphylococcus aureus infection, unspecified site; F41.9 Anxiety disorder, unspecified; K21.9 Gastro-esophageal reflux disease without esophagitis; E11.22 Type 2 diabetes mellitus with diabetic chronic kidney disease; I13.0 Hypertensive heart and chronic kidney disease with heart failure and stage 1 through stage 4 chronic kidney disease, or unspecified chronic kidney disease; N18.9 Chronic kidney disease, unspecified; I50.33 Acute on chronic diastolic (congestive) heart failure; E78.5 Hyperlipidemia, unspecified; I25.2 Old myocardial infarction; E11.51 Type 2 diabetes mellitus with diabetic peripheral angiopathy without gangrene; M00.9 Pyogenic arthritis, unspecified; I48.91 Unspecified atrial fibrillation; M19.90 Unspecified osteoarthritis, unspecified site; Z96.653 Presence of artificial knee joint, bilateral; Z85.3 Personal history of malignant neoplasm of breast; Z95.0 Presence of cardiac pacemaker; Z90.710 Acquired absence of both cervix and uterus; Z79.4 Long term (current) use of insulin; Z79.01 Long term (current) use of anticoagulants | CPT/HCPCS: 97605 ==

== ENCOUNTER → 2017-07-20 | Outpatient (CLI) | payer MEDICARE | END | disposition home or self-care (01) | LOC: PMGWOUND 09:44 | DX: T84.53XD Infection and inflammatory reaction due to internal right knee prosthesis, subsequent encounter (principal); E11.622 Type 2 diabetes mellitus with other skin ulcer; L97.816 Non-pressure chronic ulcer of other part of right lower leg with bone involvement without evidence of necrosis; A49.02 Methicillin resistant Staphylococcus aureus infection, unspecified site; F41.9 Anxiety disorder, unspecified; K21.9 Gastro-esophageal reflux disease without esophagitis; E11.22 Type 2 diabetes mellitus with diabetic chronic kidney disease; I13.0 Hypertensive heart and chronic kidney disease with heart failure and stage 1 through stage 4 chronic kidney disease, or unspecified chronic kidney disease; N18.9 Chronic kidney disease, unspecified; I50.33 Acute on chronic diastolic (congestive) heart failure; E78.5 Hyperlipidemia, unspecified; I25.2 Old myocardial infarction; E11.51 Type 2 diabetes mellitus with diabetic peripheral angiopathy without gangrene; M00.9 Pyogenic arthritis, unspecified; I48.91 Unspecified atrial fibrillation; M19.90 Unspecified osteoarthritis, unspecified site; Z96.653 Presence of artificial knee joint, bilateral; Z85.3 Personal history of malignant neoplasm of breast; Z95.0 Presence of cardiac pacemaker; Z90.710 Acquired absence of both cervix and uterus; Z79.4 Long term (current) use of insulin; Z79.01 Long term (current) use of anticoagulants | CPT/HCPCS: 97597 ==

== ENCOUNTER → 2017-07-24 | Outpatient (CLI) | payer MEDICARE | END | disposition home or self-care (01) | LOC: PMGWOUND 09:22 | DX: T84.53XD Infection and inflammatory reaction due to internal right knee prosthesis, subsequent encounter (principal); E11.622 Type 2 diabetes mellitus with other skin ulcer; L97.816 Non-pressure chronic ulcer of other part of right lower leg with bone involvement without evidence of necrosis; A49.02 Methicillin resistant Staphylococcus aureus infection, unspecified site; F41.9 Anxiety disorder, unspecified; K21.9 Gastro-esophageal reflux disease without esophagitis; E11.22 Type 2 diabetes mellitus with diabetic chronic kidney disease; I13.0 Hypertensive heart and chronic kidney disease with heart failure and stage 1 through stage 4 chronic kidney disease, or unspecified chronic kidney disease; N18.9 Chronic kidney disease, unspecified; I50.33 Acute on chronic diastolic (congestive) heart failure; E78.5 Hyperlipidemia, unspecified; E11.51 Type 2 diabetes mellitus with diabetic peripheral angiopathy without gangrene; E11.649 Type 2 diabetes mellitus with hypoglycemia without coma; M00.9 Pyogenic arthritis, unspecified; I48.91 Unspecified atrial fibrillation; M19.90 Unspecified osteoarthritis, unspecified site; I25.2 Old myocardial infarction; Z96.653 Presence of artificial knee joint, bilateral; Z85.3 Personal history of malignant neoplasm of breast; Z95.0 Presence of cardiac pacemaker; Z90.710 Acquired absence of both cervix and uterus; Z79.4 Long term (current) use of insulin; Z79.01 Long term (current) use of anticoagulants; Z79.82 Long term (current) use of aspirin | CPT/HCPCS: 97605 ==

== ENCOUNTER → 2017-07-27 | Outpatient (CLI) | payer MEDICARE | END | disposition home or self-care (01) | LOC: PMGWOUND 11:04 | DX: T84.53XD Infection and inflammatory reaction due to internal right knee prosthesis, subsequent encounter (principal); E11.622 Type 2 diabetes mellitus with other skin ulcer; L97.816 Non-pressure chronic ulcer of other part of right lower leg with bone involvement without evidence of necrosis; A49.02 Methicillin resistant Staphylococcus aureus infection, unspecified site; F41.9 Anxiety disorder, unspecified; K21.9 Gastro-esophageal reflux disease without esophagitis; E11.22 Type 2 diabetes mellitus with diabetic chronic kidney disease; I13.0 Hypertensive heart and chronic kidney disease with heart failure and stage 1 through stage 4 chronic kidney disease, or unspecified chronic kidney disease; N18.9 Chronic kidney disease, unspecified; I50.33 Acute on chronic diastolic (congestive) heart failure; E78.5 Hyperlipidemia, unspecified; E11.51 Type 2 diabetes mellitus with diabetic peripheral angiopathy without gangrene; E11.649 Type 2 diabetes mellitus with hypoglycemia without coma; M00.9 Pyogenic arthritis, unspecified; I48.91 Unspecified atrial fibrillation; M19.90 Unspecified osteoarthritis, unspecified site; I25.2 Old myocardial infarction; Z96.653 Presence of artificial knee joint, bilateral; Z85.3 Personal history of malignant neoplasm of breast; Z95.0 Presence of cardiac pacemaker; Z90.710 Acquired absence of both cervix and uterus; Z79.4 Long term (current) use of insulin; Z79.01 Long term (current) use of anticoagulants; Z79.82 Long term (current) use of aspirin | CPT/HCPCS: 97597 ==

== ENCOUNTER → 2017-07-30 | Outpatient (CLI) | payer MEDICARE | END | disposition home or self-care (01) | LOC: PMGWOUND 12:08 | DX: T84.53XD Infection and inflammatory reaction due to internal right knee prosthesis, subsequent encounter (principal); E11.622 Type 2 diabetes mellitus with other skin ulcer; L97.816 Non-pressure chronic ulcer of other part of right lower leg with bone involvement without evidence of necrosis; A49.02 Methicillin resistant Staphylococcus aureus infection, unspecified site; F41.9 Anxiety disorder, unspecified; K21.9 Gastro-esophageal reflux disease without esophagitis; E11.22 Type 2 diabetes mellitus with diabetic chronic kidney disease; I13.0 Hypertensive heart and chronic kidney disease with heart failure and stage 1 through stage 4 chronic kidney disease, or unspecified chronic kidney disease; N18.9 Chronic kidney disease, unspecified; I50.33 Acute on chronic diastolic (congestive) heart failure; E78.5 Hyperlipidemia, unspecified; E11.51 Type 2 diabetes mellitus with diabetic peripheral angiopathy without gangrene; E11.649 Type 2 diabetes mellitus with hypoglycemia without coma; M00.9 Pyogenic arthritis, unspecified; I48.91 Unspecified atrial fibrillation; M19.90 Unspecified osteoarthritis, unspecified site; I25.2 Old myocardial infarction; Z96.653 Presence of artificial knee joint, bilateral; Z85.3 Personal history of malignant neoplasm of breast; Z95.0 Presence of cardiac pacemaker; Z90.710 Acquired absence of both cervix and uterus; Z79.4 Long term (current) use of insulin; Z79.01 Long term (current) use of anticoagulants; Z79.82 Long term (current) use of aspirin | CPT/HCPCS: 97605 ==

== ENCOUNTER → 2017-08-01 | Outpatient (CLI) | payer MEDICARE | END | disposition home or self-care (01) | LOC: PMGWOUND 11:35 | DX: T84.53XD Infection and inflammatory reaction due to internal right knee prosthesis, subsequent encounter (principal); E11.622 Type 2 diabetes mellitus with other skin ulcer; L97.816 Non-pressure chronic ulcer of other part of right lower leg with bone involvement without evidence of necrosis; A49.02 Methicillin resistant Staphylococcus aureus infection, unspecified site; F41.9 Anxiety disorder, unspecified; K21.9 Gastro-esophageal reflux disease without esophagitis; E11.22 Type 2 diabetes mellitus with diabetic chronic kidney disease; I13.0 Hypertensive heart and chronic kidney disease with heart failure and stage 1 through stage 4 chronic kidney disease, or unspecified chronic kidney disease; N18.9 Chronic kidney disease, unspecified; I50.33 Acute on chronic diastolic (congestive) heart failure; E78.5 Hyperlipidemia, unspecified; E11.51 Type 2 diabetes mellitus with diabetic peripheral angiopathy without gangrene; E11.649 Type 2 diabetes mellitus with hypoglycemia without coma; M00.9 Pyogenic arthritis, unspecified; I48.91 Unspecified atrial fibrillation; M19.90 Unspecified osteoarthritis, unspecified site; I25.2 Old myocardial infarction; Z96.653 Presence of artificial knee joint, bilateral; Z85.3 Personal history of malignant neoplasm of breast; Z95.0 Presence of cardiac pacemaker; Z90.710 Acquired absence of both cervix and uterus; Z79.4 Long term (current) use of insulin; Z79.01 Long term (current) use of anticoagulants; Z79.82 Long term (current) use of aspirin | CPT/HCPCS: 97605 ==

== ENCOUNTER → 2017-08-03 | Outpatient (CLI) | payer MEDICARE | END | disposition home or self-care (01) | LOC: PMGWOUND 11:46 | DX: T84.53XD Infection and inflammatory reaction due to internal right knee prosthesis, subsequent encounter (principal); E11.622 Type 2 diabetes mellitus with other skin ulcer; L97.816 Non-pressure chronic ulcer of other part of right lower leg with bone involvement without evidence of necrosis; A49.02 Methicillin resistant Staphylococcus aureus infection, unspecified site; F41.9 Anxiety disorder, unspecified; K21.9 Gastro-esophageal reflux disease without esophagitis; E11.22 Type 2 diabetes mellitus with diabetic chronic kidney disease; I13.0 Hypertensive heart and chronic kidney disease with heart failure and stage 1 through stage 4 chronic kidney disease, or unspecified chronic kidney disease; N18.9 Chronic kidney disease, unspecified; I50.33 Acute on chronic diastolic (congestive) heart failure; E78.5 Hyperlipidemia, unspecified; E11.51 Type 2 diabetes mellitus with diabetic peripheral angiopathy without gangrene; E11.649 Type 2 diabetes mellitus with hypoglycemia without coma; M00.9 Pyogenic arthritis, unspecified; I48.91 Unspecified atrial fibrillation; M19.90 Unspecified osteoarthritis, unspecified site; I25.2 Old myocardial infarction; Z96.653 Presence of artificial knee joint, bilateral; Z85.3 Personal history of malignant neoplasm of breast; Z95.0 Presence of cardiac pacemaker; Z90.710 Acquired absence of both cervix and uterus; Z79.4 Long term (current) use of insulin; Z79.01 Long term (current) use of anticoagulants; Z79.82 Long term (current) use of aspirin | CPT/HCPCS: 97597; 97605 ==

== ENCOUNTER → 2017-08-07 | Outpatient (CLI) | payer MEDICARE | END | disposition home or self-care (01) | LOC: PMGWOUND 11:00 | DX: T84.53XD Infection and inflammatory reaction due to internal right knee prosthesis, subsequent encounter (principal); E11.622 Type 2 diabetes mellitus with other skin ulcer; L97.816 Non-pressure chronic ulcer of other part of right lower leg with bone involvement without evidence of necrosis; A49.02 Methicillin resistant Staphylococcus aureus infection, unspecified site; F41.9 Anxiety disorder, unspecified; K21.9 Gastro-esophageal reflux disease without esophagitis; E11.22 Type 2 diabetes mellitus with diabetic chronic kidney disease; I13.0 Hypertensive heart and chronic kidney disease with heart failure and stage 1 through stage 4 chronic kidney disease, or unspecified chronic kidney disease; N18.9 Chronic kidney disease, unspecified; I50.33 Acute on chronic diastolic (congestive) heart failure; E78.5 Hyperlipidemia, unspecified; E11.51 Type 2 diabetes mellitus with diabetic peripheral angiopathy without gangrene; E11.649 Type 2 diabetes mellitus with hypoglycemia without coma; M00.9 Pyogenic arthritis, unspecified; I48.91 Unspecified atrial fibrillation; M19.90 Unspecified osteoarthritis, unspecified site; I25.2 Old myocardial infarction; Z96.653 Presence of artificial knee joint, bilateral; Z85.3 Personal history of malignant neoplasm of breast; Z95.0 Presence of cardiac pacemaker; Z90.710 Acquired absence of both cervix and uterus; Z79.4 Long term (current) use of insulin; Z79.01 Long term (current) use of anticoagulants; Z79.82 Long term (current) use of aspirin; X58.XXXD Exposure to other specified factors, subsequent encounter | CPT/HCPCS: 97605 ==

== ENCOUNTER → 2017-08-10 | Outpatient (CLI) | payer MEDICARE | END | disposition home or self-care (01) | LOC: PMGWOUND 10:36 | DX: T84.53XD Infection and inflammatory reaction due to internal right knee prosthesis, subsequent encounter (principal); E11.622 Type 2 diabetes mellitus with other skin ulcer; L97.816 Non-pressure chronic ulcer of other part of right lower leg with bone involvement without evidence of necrosis; L02.415 Cutaneous abscess of right lower limb; A49.02 Methicillin resistant Staphylococcus aureus infection, unspecified site; I48.91 Unspecified atrial fibrillation; K21.9 Gastro-esophageal reflux disease without esophagitis; I25.2 Old myocardial infarction; I11.0 Hypertensive heart disease with heart failure; I50.9 Heart failure, unspecified; I25.10 Atherosclerotic heart disease of native coronary artery without angina pectoris; Z85.3 Personal history of malignant neoplasm of breast; Z87.891 Personal history of nicotine dependence; Y83.8 Other surgical procedures as the cause of abnormal reaction of the patient, or of later complication, without mention of misadventure at the time of the procedure | CPT/HCPCS: 97597; 97605 ==

== ENCOUNTER → 2017-08-14 | Outpatient (CLI) | payer MEDICARE | END | disposition home or self-care (01) | LOC: PMGWOUND 09:30 | DX: T84.53XD Infection and inflammatory reaction due to internal right knee prosthesis, subsequent encounter (principal); E11.622 Type 2 diabetes mellitus with other skin ulcer; L97.816 Non-pressure chronic ulcer of other part of right lower leg with bone involvement without evidence of necrosis; A49.02 Methicillin resistant Staphylococcus aureus infection, unspecified site; F41.9 Anxiety disorder, unspecified; K21.9 Gastro-esophageal reflux disease without esophagitis; E11.22 Type 2 diabetes mellitus with diabetic chronic kidney disease; I13.0 Hypertensive heart and chronic kidney disease with heart failure and stage 1 through stage 4 chronic kidney disease, or unspecified chronic kidney disease; N18.9 Chronic kidney disease, unspecified; I50.33 Acute on chronic diastolic (congestive) heart failure; E78.5 Hyperlipidemia, unspecified; E11.51 Type 2 diabetes mellitus with diabetic peripheral angiopathy without gangrene; E11.649 Type 2 diabetes mellitus with hypoglycemia without coma; M00.9 Pyogenic arthritis, unspecified; I48.91 Unspecified atrial fibrillation; M19.90 Unspecified osteoarthritis, unspecified site; I25.2 Old myocardial infarction; Z96.653 Presence of artificial knee joint, bilateral; Z85.3 Personal history of malignant neoplasm of breast; Z95.0 Presence of cardiac pacemaker; Z90.710 Acquired absence of both cervix and uterus; Z79.4 Long term (current) use of insulin; Z79.01 Long term (current) use of anticoagulants; Z79.82 Long term (current) use of aspirin; X58.XXXD Exposure to other specified factors, subsequent encounter | CPT/HCPCS: 97605 ==

== ENCOUNTER → 2017-08-17 | Outpatient (CLI) | payer MEDICARE | END | disposition home or self-care (01) | LOC: PMGWOUND 09:30 | DX: T84.53XD Infection and inflammatory reaction due to internal right knee prosthesis, subsequent encounter (principal); E11.622 Type 2 diabetes mellitus with other skin ulcer; L97.816 Non-pressure chronic ulcer of other part of right lower leg with bone involvement without evidence of necrosis; A49.02 Methicillin resistant Staphylococcus aureus infection, unspecified site; F41.9 Anxiety disorder, unspecified; K21.9 Gastro-esophageal reflux disease without esophagitis; E11.22 Type 2 diabetes mellitus with diabetic chronic kidney disease; I13.0 Hypertensive heart and chronic kidney disease with heart failure and stage 1 through stage 4 chronic kidney disease, or unspecified chronic kidney disease; N18.9 Chronic kidney disease, unspecified; I50.33 Acute on chronic diastolic (congestive) heart failure; E78.5 Hyperlipidemia, unspecified; E11.51 Type 2 diabetes mellitus with diabetic peripheral angiopathy without gangrene; E11.649 Type 2 diabetes mellitus with hypoglycemia without coma; M00.9 Pyogenic arthritis, unspecified; I48.91 Unspecified atrial fibrillation; M19.90 Unspecified osteoarthritis, unspecified site; I25.2 Old myocardial infarction; Z96.653 Presence of artificial knee joint, bilateral; Z85.3 Personal history of malignant neoplasm of breast; Z95.0 Presence of cardiac pacemaker; Z90.710 Acquired absence of both cervix and uterus; Z79.4 Long term (current) use of insulin; Z79.01 Long term (current) use of anticoagulants; Z79.82 Long term (current) use of aspirin; X58.XXXD Exposure to other specified factors, subsequent encounter | CPT/HCPCS: 97597; 97605 ==

== ENCOUNTER → 2017-08-21 | Outpatient (CLI) | payer MEDICARE | END | disposition home or self-care (01) | LOC: PMGWOUND 08:34 | DX: T84.53XD Infection and inflammatory reaction due to internal right knee prosthesis, subsequent encounter (principal); E11.622 Type 2 diabetes mellitus with other skin ulcer; L97.816 Non-pressure chronic ulcer of other part of right lower leg with bone involvement without evidence of necrosis; A49.02 Methicillin resistant Staphylococcus aureus infection, unspecified site; F41.9 Anxiety disorder, unspecified; K21.9 Gastro-esophageal reflux disease without esophagitis; E11.22 Type 2 diabetes mellitus with diabetic chronic kidney disease; I13.0 Hypertensive heart and chronic kidney disease with heart failure and stage 1 through stage 4 chronic kidney disease, or unspecified chronic kidney disease; N18.9 Chronic kidney disease, unspecified; I50.33 Acute on chronic diastolic (congestive) heart failure; E78.5 Hyperlipidemia, unspecified; E11.51 Type 2 diabetes mellitus with diabetic peripheral angiopathy without gangrene; E11.649 Type 2 diabetes mellitus with hypoglycemia without coma; M00.9 Pyogenic arthritis, unspecified; I48.91 Unspecified atrial fibrillation; M19.90 Unspecified osteoarthritis, unspecified site; I25.2 Old myocardial infarction; Z96.653 Presence of artificial knee joint, bilateral; Z85.3 Personal history of malignant neoplasm of breast; Z95.0 Presence of cardiac pacemaker; Z90.710 Acquired absence of both cervix and uterus; Z79.4 Long term (current) use of insulin; Z79.01 Long term (current) use of anticoagulants; Z79.82 Long term (current) use of aspirin; X58.XXXD Exposure to other specified factors, subsequent encounter | CPT/HCPCS: 97605 ==

== ENCOUNTER → 2017-08-24 | Outpatient (CLI) | payer MEDICARE | END | disposition home or self-care (01) | LOC: PMGWOUND 08:37 | DX: T84.53XD Infection and inflammatory reaction due to internal right knee prosthesis, subsequent encounter (principal); E11.622 Type 2 diabetes mellitus with other skin ulcer; L97.816 Non-pressure chronic ulcer of other part of right lower leg with bone involvement without evidence of necrosis; A49.02 Methicillin resistant Staphylococcus aureus infection, unspecified site; F41.9 Anxiety disorder, unspecified; K21.9 Gastro-esophageal reflux disease without esophagitis; E11.22 Type 2 diabetes mellitus with diabetic chronic kidney disease; I13.0 Hypertensive heart and chronic kidney disease with heart failure and stage 1 through stage 4 chronic kidney disease, or unspecified chronic kidney disease; N18.9 Chronic kidney disease, unspecified; I50.33 Acute on chronic diastolic (congestive) heart failure; E78.5 Hyperlipidemia, unspecified; E11.51 Type 2 diabetes mellitus with diabetic peripheral angiopathy without gangrene; E11.649 Type 2 diabetes mellitus with hypoglycemia without coma; M00.9 Pyogenic arthritis, unspecified; I48.91 Unspecified atrial fibrillation; M19.90 Unspecified osteoarthritis, unspecified site; I25.2 Old myocardial infarction; Z96.653 Presence of artificial knee joint, bilateral; Z85.3 Personal history of malignant neoplasm of breast; Z95.0 Presence of cardiac pacemaker; Z90.710 Acquired absence of both cervix and uterus; Z79.4 Long term (current) use of insulin; Z79.01 Long term (current) use of anticoagulants; Z79.82 Long term (current) use of aspirin; X58.XXXD Exposure to other specified factors, subsequent encounter | CPT/HCPCS: 97597; 97605 ==

== ENCOUNTER → 2017-08-28 | Outpatient (CLI) | payer MEDICARE | END | disposition home or self-care (01) | LOC: PMGWOUND 09:49 | DX: E11.622 Type 2 diabetes mellitus with other skin ulcer (principal); L97.316 Non-pressure chronic ulcer of right ankle with bone involvement without evidence of necrosis; F41.9 Anxiety disorder, unspecified; K21.9 Gastro-esophageal reflux disease without esophagitis; E11.22 Type 2 diabetes mellitus with diabetic chronic kidney disease; I13.0 Hypertensive heart and chronic kidney disease with heart failure and stage 1 through stage 4 chronic kidney disease, or unspecified chronic kidney disease; N18.9 Chronic kidney disease, unspecified; I50.33 Acute on chronic diastolic (congestive) heart failure; E78.5 Hyperlipidemia, unspecified; I25.2 Old myocardial infarction; M00.9 Pyogenic arthritis, unspecified; I48.91 Unspecified atrial fibrillation; E11.51 Type 2 diabetes mellitus with diabetic peripheral angiopathy without gangrene; I25.10 Atherosclerotic heart disease of native coronary artery without angina pectoris; Z85.3 Personal history of malignant neoplasm of breast; Z96.653 Presence of artificial knee joint, bilateral; Z95.0 Presence of cardiac pacemaker; Z87.891 Personal history of nicotine dependence; Z79.4 Long term (current) use of insulin; Z79.01 Long term (current) use of anticoagulants; Z90.710 Acquired absence of both cervix and uterus | CPT/HCPCS: 97605 ==

== ENCOUNTER → 2017-08-31 | Outpatient (CLI) | payer MEDICARE | END | disposition home or self-care (01) | LOC: PMGWOUND 09:50 | DX: E11.622 Type 2 diabetes mellitus with other skin ulcer (principal); L97.816 Non-pressure chronic ulcer of other part of right lower leg with bone involvement without evidence of necrosis; A49.02 Methicillin resistant Staphylococcus aureus infection, unspecified site; F41.9 Anxiety disorder, unspecified; K21.9 Gastro-esophageal reflux disease without esophagitis; E78.5 Hyperlipidemia, unspecified; I25.2 Old myocardial infarction; E11.22 Type 2 diabetes mellitus with diabetic chronic kidney disease; I13.0 Hypertensive heart and chronic kidney disease with heart failure and stage 1 through stage 4 chronic kidney disease, or unspecified chronic kidney disease; N18.9 Chronic kidney disease, unspecified; I50.9 Heart failure, unspecified; M00.9 Pyogenic arthritis, unspecified; E11.51 Type 2 diabetes mellitus with diabetic peripheral angiopathy without gangrene; M19.90 Unspecified osteoarthritis, unspecified site; I25.10 Atherosclerotic heart disease of native coronary artery without angina pectoris; I48.91 Unspecified atrial fibrillation; Z85.3 Personal history of malignant neoplasm of breast; Z96.653 Presence of artificial knee joint, bilateral; Z90.710 Acquired absence of both cervix and uterus; Z87.891 Personal history of nicotine dependence; Z79.4 Long term (current) use of insulin; Z95.0 Presence of cardiac pacemaker; Z79.01 Long term (current) use of anticoagulants | CPT/HCPCS: 17250; 97597; 97605 ==

== ENCOUNTER → 2017-09-04 | Outpatient (CLI) | payer MEDICARE | END | disposition home or self-care (01) | LOC: PMGWOUND 09:24 | DX: E11.622 Type 2 diabetes mellitus with other skin ulcer (principal); L97.816 Non-pressure chronic ulcer of other part of right lower leg with bone involvement without evidence of necrosis; F41.9 Anxiety disorder, unspecified; K21.9 Gastro-esophageal reflux disease without esophagitis; E11.22 Type 2 diabetes mellitus with diabetic chronic kidney disease; I13.0 Hypertensive heart and chronic kidney disease with heart failure and stage 1 through stage 4 chronic kidney disease, or unspecified chronic kidney disease; N18.9 Chronic kidney disease, unspecified; I50.33 Acute on chronic diastolic (congestive) heart failure; E78.5 Hyperlipidemia, unspecified; I25.2 Old myocardial infarction; E11.51 Type 2 diabetes mellitus with diabetic peripheral angiopathy without gangrene; I48.91 Unspecified atrial fibrillation; M19.90 Unspecified osteoarthritis, unspecified site; A49.02 Methicillin resistant Staphylococcus aureus infection, unspecified site; Z90.710 Acquired absence of both cervix and uterus; Z85.3 Personal history of malignant neoplasm of breast; Z87.891 Personal history of nicotine dependence; Z96.653 Presence of artificial knee joint, bilateral; Z95.0 Presence of cardiac pacemaker; M00.9 Pyogenic arthritis, unspecified; Z79.01 Long term (current) use of anticoagulants; Z79.4 Long term (current) use of insulin | CPT/HCPCS: 97605 ==

== ENCOUNTER → 2017-09-07 | Outpatient (CLI) | payer MEDICARE | END | disposition home or self-care (01) | LOC: PMGWOUND 09:09 | DX: T84.53XA Infection and inflammatory reaction due to internal right knee prosthesis, initial encounter (principal); E11.622 Type 2 diabetes mellitus with other skin ulcer; L97.816 Non-pressure chronic ulcer of other part of right lower leg with bone involvement without evidence of necrosis; A49.02 Methicillin resistant Staphylococcus aureus infection, unspecified site; F41.9 Anxiety disorder, unspecified; K21.9 Gastro-esophageal reflux disease without esophagitis; E11.22 Type 2 diabetes mellitus with diabetic chronic kidney disease; I13.0 Hypertensive heart and chronic kidney disease with heart failure and stage 1 through stage 4 chronic kidney disease, or unspecified chronic kidney disease; N18.9 Chronic kidney disease, unspecified; I50.33 Acute on chronic diastolic (congestive) heart failure; E78.5 Hyperlipidemia, unspecified; I25.10 Atherosclerotic heart disease of native coronary artery without angina pectoris; E11.51 Type 2 diabetes mellitus with diabetic peripheral angiopathy without gangrene; I25.2 Old myocardial infarction; I48.91 Unspecified atrial fibrillation; M19.90 Unspecified osteoarthritis, unspecified site; M00.9 Pyogenic arthritis, unspecified; Z90.710 Acquired absence of both cervix and uterus; Z85.3 Personal history of malignant neoplasm of breast; Z87.891 Personal history of nicotine dependence; Z96.653 Presence of artificial knee joint, bilateral; Z95.0 Presence of cardiac pacemaker; Z79.4 Long term (current) use of insulin; Z79.01 Long term (current) use of anticoagulants; Y83.8 Other surgical procedures as the cause of abnormal reaction of the patient, or of later complication, without mention of misadventure at the time of the procedure | CPT/HCPCS: 97605 ==

== ENCOUNTER → 2017-09-11 | Outpatient (CLI) | payer MEDICARE | END | disposition home or self-care (01) | LOC: PMGWOUND 09:16 | DX: T84.53XD Infection and inflammatory reaction due to internal right knee prosthesis, subsequent encounter (principal); E11.622 Type 2 diabetes mellitus with other skin ulcer; L97.816 Non-pressure chronic ulcer of other part of right lower leg with bone involvement without evidence of necrosis; A49.02 Methicillin resistant Staphylococcus aureus infection, unspecified site; F41.9 Anxiety disorder, unspecified; I25.10 Atherosclerotic heart disease of native coronary artery without angina pectoris; K21.9 Gastro-esophageal reflux disease without esophagitis; E78.5 Hyperlipidemia, unspecified; E11.22 Type 2 diabetes mellitus with diabetic chronic kidney disease; I13.0 Hypertensive heart and chronic kidney disease with heart failure and stage 1 through stage 4 chronic kidney disease, or unspecified chronic kidney disease; N18.9 Chronic kidney disease, unspecified; I50.43 Acute on chronic combined systolic (congestive) and diastolic (congestive) heart failure; I25.2 Old myocardial infarction; I48.91 Unspecified atrial fibrillation; M00.9 Pyogenic arthritis, unspecified; Z90.710 Acquired absence of both cervix and uterus; Z85.3 Personal history of malignant neoplasm of breast; Z87.891 Personal history of nicotine dependence; Z96.653 Presence of artificial knee joint, bilateral; Z95.0 Presence of cardiac pacemaker; Z79.4 Long term (current) use of insulin; Z79.01 Long term (current) use of anticoagulants; Y83.8 Other surgical procedures as the cause of abnormal reaction of the patient, or of later complication, without mention of misadventure at the time of the procedure | CPT/HCPCS: 97605 ==

== ENCOUNTER → 2017-09-14 | Outpatient (CLI) | payer MEDICARE | END | disposition home or self-care (01) | LOC: PMGWOUND 09:15 | DX: E11.622 Type 2 diabetes mellitus with other skin ulcer (principal); L97.816 Non-pressure chronic ulcer of other part of right lower leg with bone involvement without evidence of necrosis; A49.02 Methicillin resistant Staphylococcus aureus infection, unspecified site; F41.9 Anxiety disorder, unspecified; I25.10 Atherosclerotic heart disease of native coronary artery without angina pectoris; K21.9 Gastro-esophageal reflux disease without esophagitis; E11.22 Type 2 diabetes mellitus with diabetic chronic kidney disease; I13.0 Hypertensive heart and chronic kidney disease with heart failure and stage 1 through stage 4 chronic kidney disease, or unspecified chronic kidney disease; N18.9 Chronic kidney disease, unspecified; I50.43 Acute on chronic combined systolic (congestive) and diastolic (congestive) heart failure; E78.5 Hyperlipidemia, unspecified; I25.2 Old myocardial infarction; M19.90 Unspecified osteoarthritis, unspecified site; E11.51 Type 2 diabetes mellitus with diabetic peripheral angiopathy without gangrene; I48.91 Unspecified atrial fibrillation; M00.9 Pyogenic arthritis, unspecified; Z87.891 Personal history of nicotine dependence; Z90.710 Acquired absence of both cervix and uterus; Z96.653 Presence of artificial knee joint, bilateral; Z95.0 Presence of cardiac pacemaker; Z85.3 Personal history of malignant neoplasm of breast; Z79.4 Long term (current) use of insulin; Z79.01 Long term (current) use of anticoagulants | CPT/HCPCS: 17250 ==

== ENCOUNTER → 2017-09-17 | Outpatient (CLI) | payer MEDICARE | END | disposition home or self-care (01) | LOC: PMGWOUND 09:12 | DX: T84.53XD Infection and inflammatory reaction due to internal right knee prosthesis, subsequent encounter (principal); E11.622 Type 2 diabetes mellitus with other skin ulcer; L97.816 Non-pressure chronic ulcer of other part of right lower leg with bone involvement without evidence of necrosis; A49.02 Methicillin resistant Staphylococcus aureus infection, unspecified site; F41.9 Anxiety disorder, unspecified; I25.10 Atherosclerotic heart disease of native coronary artery without angina pectoris; K21.9 Gastro-esophageal reflux disease without esophagitis; E11.22 Type 2 diabetes mellitus with diabetic chronic kidney disease; I13.0 Hypertensive heart and chronic kidney disease with heart failure and stage 1 through stage 4 chronic kidney disease, or unspecified chronic kidney disease; N18.9 Chronic kidney disease, unspecified; I50.43 Acute on chronic combined systolic (congestive) and diastolic (congestive) heart failure; E11.51 Type 2 diabetes mellitus with diabetic peripheral angiopathy without gangrene; M00.9 Pyogenic arthritis, unspecified; I48.91 Unspecified atrial fibrillation; M19.90 Unspecified osteoarthritis, unspecified site; I25.2 Old myocardial infarction; E78.5 Hyperlipidemia, unspecified; Z85.3 Personal history of malignant neoplasm of breast; Z87.891 Personal history of nicotine dependence; Z96.653 Presence of artificial knee joint, bilateral; Z90.710 Acquired absence of both cervix and uterus; Z79.01 Long term (current) use of anticoagulants; Z79.4 Long term (current) use of insulin; Y83.8 Other surgical procedures as the cause of abnormal reaction of the patient, or of later complication, without mention of misadventure at the time of the procedure | CPT/HCPCS: 87205; 99214 ==

== ENCOUNTER → 2017-10-10 | Outpatient (CLI) | payer MEDICARE | END | disposition home or self-care (01) | LOC: PMGWOUND 07:44 | DX: T84.53XD Infection and inflammatory reaction due to internal right knee prosthesis, subsequent encounter (principal); E11.622 Type 2 diabetes mellitus with other skin ulcer; L97.816 Non-pressure chronic ulcer of other part of right lower leg with bone involvement without evidence of necrosis; A49.02 Methicillin resistant Staphylococcus aureus infection, unspecified site; F41.9 Anxiety disorder, unspecified; I25.10 Atherosclerotic heart disease of native coronary artery without angina pectoris; K21.9 Gastro-esophageal reflux disease without esophagitis; E11.22 Type 2 diabetes mellitus with diabetic chronic kidney disease; I13.0 Hypertensive heart and chronic kidney disease with heart failure and stage 1 through stage 4 chronic kidney disease, or unspecified chronic kidney disease; N18.9 Chronic kidney disease, unspecified; I50.43 Acute on chronic combined systolic (congestive) and diastolic (congestive) heart failure; E11.51 Type 2 diabetes mellitus with diabetic peripheral angiopathy without gangrene; M00.9 Pyogenic arthritis, unspecified; I48.91 Unspecified atrial fibrillation; M19.90 Unspecified osteoarthritis, unspecified site; I25.2 Old myocardial infarction; E78.5 Hyperlipidemia, unspecified; Z85.3 Personal history of malignant neoplasm of breast; Z87.891 Personal history of nicotine dependence; Z96.653 Presence of artificial knee joint, bilateral; Z90.710 Acquired absence of both cervix and uterus; Z79.01 Long term (current) use of anticoagulants; Z79.4 Long term (current) use of insulin; Y83.8 Other surgical procedures as the cause of abnormal reaction of the patient, or of later complication, without mention of misadventure at the time of the procedure | CPT/HCPCS: 11042; 97597; 97605 ==

== ENCOUNTER → 2017-10-17 | Outpatient (CLI) | payer MEDICARE | END | disposition home or self-care (01) | LOC: PMGWOUND 08:00 | DX: T84.53XD Infection and inflammatory reaction due to internal right knee prosthesis, subsequent encounter (principal); E11.622 Type 2 diabetes mellitus with other skin ulcer; L97.816 Non-pressure chronic ulcer of other part of right lower leg with bone involvement without evidence of necrosis; A49.02 Methicillin resistant Staphylococcus aureus infection, unspecified site; F41.9 Anxiety disorder, unspecified; I25.10 Atherosclerotic heart disease of native coronary artery without angina pectoris; K21.9 Gastro-esophageal reflux disease without esophagitis; E11.22 Type 2 diabetes mellitus with diabetic chronic kidney disease; I13.0 Hypertensive heart and chronic kidney disease with heart failure and stage 1 through stage 4 chronic kidney disease, or unspecified chronic kidney disease; N18.9 Chronic kidney disease, unspecified; I50.43 Acute on chronic combined systolic (congestive) and diastolic (congestive) heart failure; E11.51 Type 2 diabetes mellitus with diabetic peripheral angiopathy without gangrene; E11.649 Type 2 diabetes mellitus with hypoglycemia without coma; M00.9 Pyogenic arthritis, unspecified; I48.91 Unspecified atrial fibrillation; M19.90 Unspecified osteoarthritis, unspecified site; I25.2 Old myocardial infarction; E78.5 Hyperlipidemia, unspecified; Z85.3 Personal history of malignant neoplasm of breast; Z87.891 Personal history of nicotine dependence; Z96.653 Presence of artificial knee joint, bilateral; Z90.710 Acquired absence of both cervix and uterus; Z79.01 Long term (current) use of anticoagulants; Z79.4 Long term (current) use of insulin; Z95.0 Presence of cardiac pacemaker; Z79.82 Long term (current) use of aspirin; Y83.8 Other surgical procedures as the cause of abnormal reaction of the patient, or of later complication, without mention of misadventure at the time of the procedure | CPT/HCPCS: 97597; 97605 ==

== ENCOUNTER → 2017-10-24 | Outpatient (CLI) | payer MEDICARE | END | disposition home or self-care (01) | LOC: PMGWOUND 08:04 | DX: T84.53XD Infection and inflammatory reaction due to internal right knee prosthesis, subsequent encounter (principal); E11.622 Type 2 diabetes mellitus with other skin ulcer; L97.816 Non-pressure chronic ulcer of other part of right lower leg with bone involvement without evidence of necrosis; A49.02 Methicillin resistant Staphylococcus aureus infection, unspecified site; F41.9 Anxiety disorder, unspecified; I25.10 Atherosclerotic heart disease of native coronary artery without angina pectoris; K21.9 Gastro-esophageal reflux disease without esophagitis; E11.22 Type 2 diabetes mellitus with diabetic chronic kidney disease; I13.0 Hypertensive heart and chronic kidney disease with heart failure and stage 1 through stage 4 chronic kidney disease, or unspecified chronic kidney disease; N18.9 Chronic kidney disease, unspecified; I50.43 Acute on chronic combined systolic (congestive) and diastolic (congestive) heart failure; E11.51 Type 2 diabetes mellitus with diabetic peripheral angiopathy without gangrene; E11.649 Type 2 diabetes mellitus with hypoglycemia without coma; M00.9 Pyogenic arthritis, unspecified; I48.91 Unspecified atrial fibrillation; M19.90 Unspecified osteoarthritis, unspecified site; I25.2 Old myocardial infarction; E78.5 Hyperlipidemia, unspecified; Z85.3 Personal history of malignant neoplasm of breast; Z87.891 Personal history of nicotine dependence; Z96.653 Presence of artificial knee joint, bilateral; Z90.710 Acquired absence of both cervix and uterus; Z79.01 Long term (current) use of anticoagulants; Z79.4 Long term (current) use of insulin; Z95.0 Presence of cardiac pacemaker; Z79.82 Long term (current) use of aspirin; Y83.8 Other surgical procedures as the cause of abnormal reaction of the patient, or of later complication, without mention of misadventure at the time of the procedure | CPT/HCPCS: 97597; 97605 ==

== ENCOUNTER → 2017-10-31 | Outpatient (CLI) | payer MEDICARE | END | disposition home or self-care (01) | LOC: PMGWOUND 07:58 | DX: T84.53XD Infection and inflammatory reaction due to internal right knee prosthesis, subsequent encounter (principal); E11.622 Type 2 diabetes mellitus with other skin ulcer; L97.816 Non-pressure chronic ulcer of other part of right lower leg with bone involvement without evidence of necrosis; A49.02 Methicillin resistant Staphylococcus aureus infection, unspecified site; F41.9 Anxiety disorder, unspecified; K21.9 Gastro-esophageal reflux disease without esophagitis; E78.5 Hyperlipidemia, unspecified; E11.22 Type 2 diabetes mellitus with diabetic chronic kidney disease; I13.0 Hypertensive heart and chronic kidney disease with heart failure and stage 1 through stage 4 chronic kidney disease, or unspecified chronic kidney disease; N18.9 Chronic kidney disease, unspecified; I50.43 Acute on chronic combined systolic (congestive) and diastolic (congestive) heart failure; I25.2 Old myocardial infarction; M00.9 Pyogenic arthritis, unspecified; E11.51 Type 2 diabetes mellitus with diabetic peripheral angiopathy without gangrene; M19.90 Unspecified osteoarthritis, unspecified site; I50.41 Acute combined systolic (congestive) and diastolic (congestive) heart failure; J45.909 Unspecified asthma, uncomplicated; I25.10 Atherosclerotic heart disease of native coronary artery without angina pectoris; I48.91 Unspecified atrial fibrillation; Z90.710 Acquired absence of both cervix and uterus; Z90.49 Acquired absence of other specified parts of digestive tract; Z85.3 Personal history of malignant neoplasm of breast; Z87.891 Personal history of nicotine dependence; Z95.0 Presence of cardiac pacemaker; Z96.653 Presence of artificial knee joint, bilateral; Z79.4 Long term (current) use of insulin; Y83.8 Other surgical procedures as the cause of abnormal reaction of the patient, or of later complication, without mention of misadventure at the time of the procedure | CPT/HCPCS: 97597; 97605 ==

== ENCOUNTER → 2017-11-05 | Outpatient (CLI) | payer MEDICARE | END | disposition home or self-care (01) | LOC: PMGWOUND 08:42 | DX: T84.53XD Infection and inflammatory reaction due to internal right knee prosthesis, subsequent encounter (principal); E11.622 Type 2 diabetes mellitus with other skin ulcer; L97.816 Non-pressure chronic ulcer of other part of right lower leg with bone involvement without evidence of necrosis; A49.02 Methicillin resistant Staphylococcus aureus infection, unspecified site; F41.9 Anxiety disorder, unspecified; I25.10 Atherosclerotic heart disease of native coronary artery without angina pectoris; K21.9 Gastro-esophageal reflux disease without esophagitis; E11.22 Type 2 diabetes mellitus with diabetic chronic kidney disease; I13.0 Hypertensive heart and chronic kidney disease with heart failure and stage 1 through stage 4 chronic kidney disease, or unspecified chronic kidney disease; N18.9 Chronic kidney disease, unspecified; I50.43 Acute on chronic combined systolic (congestive) and diastolic (congestive) heart failure; E11.51 Type 2 diabetes mellitus with diabetic peripheral angiopathy without gangrene; E11.649 Type 2 diabetes mellitus with hypoglycemia without coma; M00.9 Pyogenic arthritis, unspecified; I48.91 Unspecified atrial fibrillation; M19.90 Unspecified osteoarthritis, unspecified site; I25.2 Old myocardial infarction; E78.5 Hyperlipidemia, unspecified; Z85.3 Personal history of malignant neoplasm of breast; Z87.891 Personal history of nicotine dependence; Z96.653 Presence of artificial knee joint, bilateral; Z90.710 Acquired absence of both cervix and uterus; Z79.01 Long term (current) use of anticoagulants; Z79.4 Long term (current) use of insulin; Z95.0 Presence of cardiac pacemaker; Z79.82 Long term (current) use of aspirin; Y83.8 Other surgical procedures as the cause of abnormal reaction of the patient, or of later complication, without mention of misadventure at the time of the procedure | CPT/HCPCS: 99214 ==

== ENCOUNTER → 2017-11-19 | Outpatient (CLI) | payer MEDICARE | END | disposition home or self-care (01) | LOC: PMGWOUND 08:03 | DX: T84.53XD Infection and inflammatory reaction due to internal right knee prosthesis, subsequent encounter (principal); E11.622 Type 2 diabetes mellitus with other skin ulcer; L97.816 Non-pressure chronic ulcer of other part of right lower leg with bone involvement without evidence of necrosis; A49.02 Methicillin resistant Staphylococcus aureus infection, unspecified site; F41.9 Anxiety disorder, unspecified; I25.10 Atherosclerotic heart disease of native coronary artery without angina pectoris; K21.9 Gastro-esophageal reflux disease without esophagitis; E78.5 Hyperlipidemia, unspecified; I25.2 Old myocardial infarction; M00.9 Pyogenic arthritis, unspecified; E11.51 Type 2 diabetes mellitus with diabetic peripheral angiopathy without gangrene; I48.91 Unspecified atrial fibrillation; M19.90 Unspecified osteoarthritis, unspecified site; J45.909 Unspecified asthma, uncomplicated; E11.22 Type 2 diabetes mellitus with diabetic chronic kidney disease; I13.0 Hypertensive heart and chronic kidney disease with heart failure and stage 1 through stage 4 chronic kidney disease, or unspecified chronic kidney disease; N18.9 Chronic kidney disease, unspecified; I50.43 Acute on chronic combined systolic (congestive) and diastolic (congestive) heart failure; Z90.710 Acquired absence of both cervix and uterus; Z90.49 Acquired absence of other specified parts of digestive tract; Z85.3 Personal history of malignant neoplasm of breast; Z87.891 Personal history of nicotine dependence; Z96.653 Presence of artificial knee joint, bilateral; Z95.5 Presence of coronary angioplasty implant and graft; Z79.01 Long term (current) use of anticoagulants; Z79.4 Long term (current) use of insulin; Y83.8 Other surgical procedures as the cause of abnormal reaction of the patient, or of later complication, without mention of misadventure at the time of the procedure | CPT/HCPCS: 99214 ==

== ENCOUNTER → 2017-12-05 | Outpatient (CLI) | payer MEDICARE | END | disposition home or self-care (01) | LOC: PMGWOUND 08:10 | DX: T84.53XD Infection and inflammatory reaction due to internal right knee prosthesis, subsequent encounter (principal); E11.622 Type 2 diabetes mellitus with other skin ulcer; L97.816 Non-pressure chronic ulcer of other part of right lower leg with bone involvement without evidence of necrosis; A49.02 Methicillin resistant Staphylococcus aureus infection, unspecified site; F41.9 Anxiety disorder, unspecified; I25.10 Atherosclerotic heart disease of native coronary artery without angina pectoris; K21.9 Gastro-esophageal reflux disease without esophagitis; E78.5 Hyperlipidemia, unspecified; I25.2 Old myocardial infarction; M00.9 Pyogenic arthritis, unspecified; E11.51 Type 2 diabetes mellitus with diabetic peripheral angiopathy without gangrene; I48.91 Unspecified atrial fibrillation; M19.90 Unspecified osteoarthritis, unspecified site; J45.909 Unspecified asthma, uncomplicated; E11.22 Type 2 diabetes mellitus with diabetic chronic kidney disease; I13.0 Hypertensive heart and chronic kidney disease with heart failure and stage 1 through stage 4 chronic kidney disease, or unspecified chronic kidney disease; N18.9 Chronic kidney disease, unspecified; I50.43 Acute on chronic combined systolic (congestive) and diastolic (congestive) heart failure; Z90.710 Acquired absence of both cervix and uterus; Z90.49 Acquired absence of other specified parts of digestive tract; Z85.3 Personal history of malignant neoplasm of breast; Z87.891 Personal history of nicotine dependence; Z96.653 Presence of artificial knee joint, bilateral; Z95.5 Presence of coronary angioplasty implant and graft; Z79.01 Long term (current) use of anticoagulants; Z79.4 Long term (current) use of insulin; Y83.8 Other surgical procedures as the cause of abnormal reaction of the patient, or of later complication, without mention of misadventure at the time of the procedure | CPT/HCPCS: 17250 ==

== ENCOUNTER → 2017-12-19 | Outpatient (CLI) | payer MEDICARE ==
[2017-10-03 15:00] VITALS: BP 125/54
[~2017-12-19] MED LIST changes: +AMLO5TAB2 PO; +AMOX500T PO; +ASCO500T3 PO; +BUME1TAB PO; +BUME2TAB PO; +CALC-56 PO; +DILT180C29 PO; +DILT180C79 PO; +DILT240C77 PO; +DOXY100T PO; +ESCITALOPRAM OX20 MG PO; -FERR-26 PO; +FERR325T14 PO; +FURO20TA3 PO; +FURO80TA72 PO; +MAGN2400 PO; +METO5TAB4 PO; +MULT1TAB52 PO; +POTA10TA12 PO; -POTASSIUM CHLO10 MEQ PO; +RANI150T2 PO; -SPIR25TA3 PO; +SPIR25TA5 PO; +WARF-31 PO; +WARF2TAB PO; -WARF2TAB7 PO; +WARF2TAB96 PO; +WARF3TAB50 PO; -WARF3TAB7 PO; -WARF5TAB7 PO
== END | disposition home or self-care (01) ==
LOC: PMGWOUND 08:05
PROVIDERS: ATTEND Preventive Medicine Undersea and Hyperbaric Medicine
DX: E11.622 Type 2 diabetes mellitus with other skin ulcer (principal); L97.818 Non-pressure chronic ulcer of other part of right lower leg with other specified severity; I13.0 Hypertensive heart and chronic kidney disease with heart failure and stage 1 through stage 4 chronic kidney disease, or unspecified chronic kidney disease; I50.43 Acute on chronic combined systolic (congestive) and diastolic (congestive) heart failure; E11.22 Type 2 diabetes mellitus with diabetic chronic kidney disease; N18.9 Chronic kidney disease, unspecified; E11.649 Type 2 diabetes mellitus with hypoglycemia without coma; E11.51 Type 2 diabetes mellitus with diabetic peripheral angiopathy without gangrene; I25.10 Atherosclerotic heart disease of native coronary artery without angina pectoris; I25.2 Old myocardial infarction; K21.9 Gastro-esophageal reflux disease without esophagitis; I48.91 Unspecified atrial fibrillation; E78.5 Hyperlipidemia, unspecified; A49.02 Methicillin resistant Staphylococcus aureus infection, unspecified site; M00.9 Pyogenic arthritis, unspecified; J45.909 Unspecified asthma, uncomplicated; F41.9 Anxiety disorder, unspecified; Z79.4 Long term (current) use of insulin; Z79.82 Long term (current) use of aspirin; Z95.0 Presence of cardiac pacemaker; Z79.01 Long term (current) use of anticoagulants; Z90.710 Acquired absence of both cervix and uterus; Z95.5 Presence of coronary angioplasty implant and graft; Z90.49 Acquired absence of other specified parts of digestive tract; Z87.891 Personal history of nicotine dependence; Z96.653 Presence of artificial knee joint, bilateral; Z85.3 Personal history of malignant neoplasm of breast
CPT/HCPCS: 99213

== ENCOUNTER 2018-02-24 13:45 | Inpatient (IN) | payer MEDICARE ==
[~2018-02-24] VITALS: Ht 157.5 cm; Wt 95.3 kg
[~2018-02-24 13:45] MED LIST changes: -AMLO10TA2 PO; +AMLO10TA6 PO; -AMLO5TAB2 PO; +AMLO5TAB7 PO; -LOSA100T6 PO; +LOSA100T7 PO; -METF850T2 PO; +METF850T8 PO
--- NOTE | 2018-02-24 14:12 | PHYS DOC ---
Past Medical History Past Medical History: A-Fib, CAD, Cancer, CHF, Diabetes-Type II, GERD, Hypertension, [place], Other Additional Past Medical Histor: menieres, breast cancer - L lumpectomy, cellulitis - BLE, Past Surgical History: Appendectomy, Cholecystectomy, Hysterectomy, Knee Replacement, Tonsillectomy, Other Additional Past Surgical Histo: lumpectomy in left breast, 2 CARDIAC STENTS AND 3 BALLOONS Alcohol Use: None Drug Use: None Adult General Chief Complaint Chief Complaint: CHEST PAIN HPI HPI Patient is an 83-year-old female past history of coronary artery disease and several other medical problems and presents to the emergency department for evaluation. She states that about 2 hours ago she began experiencing anterior chest discomfort, described as an achiness, which has been waxing and waning in intensity but has not resolved. She describes the pain is exactly the same as her prior cardiac episodes. The pain does not radiate. She has had chronic shortness of breath but states she is more short of breath then normal. She denies any nausea, vomiting, or diaphoresis. She has not had any numbness, weakness, or headache. There are no alleviating, or exacerbating factors to her symptoms. Pt has taken 324 mg ASA at home this morning [place]. She also takes warfarin for a Hx of a fib. Review of Systems Review of Systems Constitutional: Denies fever or chills [] Eyes: Denies change in visual acuity, redness, or eye pain [] HENT: Denies nasal congestion or sore throat [] Respiratory: Denies cough or pleuritic chest pain[] Cardiovascular: No additional information not addressed in HPI [] GI: Denies abdominal pain, nausea, vomiting, bloody stools or diarrhea [] : Denies dysuria or hematuria [] Musculoskeletal: Denies back pain or joint pain [] Integument: Denies rash or skin lesions [] Neurologic: Denies headache, focal weakness or sensory changes [] Endocrine: Denies polyuria or polydipsia [] All other systems were reviewed and found to be within normal limits, except as documented in this note. Current Medications Current Medications Current Medications Medications (Trade) Dose Ordered Sig/Huyen Start Time Stop Time Status Last Admin Dose Admin Dextrose (Dextrose 50%-Water Syringe) 12.5 gm 1X ONCE 02/24/18 14:45 02/24/18 14:46 DC 02/24/18 14:42 12.5 GM Allergies Allergies Allergies Coded Allergies Type Severity Reaction Last Updated Verified Iodinated Contrast- Oral and IV Dye Allergy Severe Anaphylaxis 07/19/17 Yes adhesive tape Allergy Intermediate 07/19/17 Yes I S O L A T I O N *CONTACT* Allergy Unknown 07/19/17 Yes meperidine Adverse Reaction Intermediate Vomiting 07/19/17 Yes Physical Exam Physical Exam PHYSICAL EXAM: CONSTITUTIONAL: Well developed, well nourished HEAD: normocephalic, atraumatic EENT: PERRL, EOMI. Conjunctivae normal color, sclerae non-icteric; moist mucous membranes. NECK: Supple, non-tender; no meningismus. LUNGS: Lungs CTA, breathing even and unlabored. Normal air movement. HEART: Irregularly irregular rhythm, no murmur CHEST: No deformity; non-tender ABDOMEN: The abdomen is soft, and non-tender, no masses or bruits. EXTREM: Normal ROM; no deformity, no calf tenderness. Normal pulses palpable in all extremities. There is no pedal edema. SKIN: No rash; no diaphoresis NEURO: Alert; normal speech and cognition; CN's grossly intact; strength grossly intact without focal deficit. BACK: No CVA TTP. Current Patient Data Vital Signs Vital Signs Date Time Temp Pulse Resp B/P (MAP) Pulse Ox O2 Delivery O2 Flow Rate FiO2 02/24/18 13:50 98.7 68 20 133/63 (86) 99 Room Air 98.7 Lab Values Laboratory Tests Test 02/24/18 14:19 White Blood Count 10.0 x10^3/uL (4.0-11.0) Red Blood Count 3.67 x10^6/uL (3.50-5.40) Hemoglobin 12.3 g/dL (12.0-15.5) Hematocrit 35.2 % (36.0-47.0) L Mean Corpuscular Volume 96 fL (79-100) Mean Corpuscular Hemoglobin 34 pg (25-35) Mean Corpuscular Hemoglobin Concent 35 g/dL (31-37) Red Cell Distribution Width 14.7 % (11.5-14.5) H Platelet Count 323 x10^3/uL (140-400) Neutrophils (%) (Auto) 69 % (31-73) Lymphocytes (%) (Auto) 21 % (24-48) L Monocytes (%) (Auto) 7 % (0-9) Eosinophils (%) (Auto) 2 % (0-3) Basophils (%) (Auto) 1 % (0-3) Neutrophils # (Auto) 6.9 x10^3uL (1.8-7.7) Lymphocytes # (Auto) 2.1 x10^3/uL (1.0-4.8) Monocytes # (Auto) 0.7 x10^3/uL (0.0-1.1) Eosinophils # (Auto) 0.2 x10^3/uL (0.0-0.7) Basophils # (Auto) 0.1 x10^3/uL (0.0-0.2) Prothrombin Time 14.2 SEC (11.7-14.0) H Prothrombin Time INR 1.2 (0.8-1.1) H Sodium Level 143 mmol/L (136-145) Potassium Level 4.3 mmol/L (3.5-5.1) Chloride Level 103 mmol/L (98-107) Carbon Dioxide Level 32 mmol/L (21-32) Anion Gap 8 (6-14) Blood Urea Nitrogen 64 mg/dL (7-20) H Creatinine 2.0 mg/dL (0.6-1.0) H Estimated GFR (Cockcroft-Gault) 23.9 BUN/Creatinine Ratio 32 (6-20) H Glucose Level 49 mg/dL (70-99) L Calcium Level 10.4 mg/dL (8.5-10.1) H Total Bilirubin 0.3 mg/dL (0.2-1.0) Aspartate Amino Transferase (AST) 17 U/L (15-37) Alanine Aminotransferase (ALT) 21 U/L (14-59) Alkaline Phosphatase 134 U/L (46-116) H Creatine Kinase 34 U/L (26-192) Creatine Kinase MB (Mass) 1.2 ng/mL (0.0-3.6) Creatine Kinase MB Relative Index 3.5 % (0-4) Troponin I Quantitative < 0.017 ng/mL (0.000-0.055) EO-Eqp-V-Type Natriuretic Peptide 6486 pg/mL (0-449) H Total Protein 7.9 g/dL (6.4-8.2) Albumin 3.1 g/dL (3.4-5.0) L Albumin/Globulin Ratio 0.6 (1.0-1.7) L Laboratory Tests 02/24/18 14:19 Laboratory Tests 02/24/18 14:19 EKG EKG ] atrial fibrillation at a rate of 70 beats for minute, left axis deviation, left anterior fascicular block. There is lateral T wave inversion and nonspecific ST/T changes. The patient's EKG is not significantly changed compared to her prior EKG from 09/2017. Radiology/Procedures Radiology/Procedures [PROCEDURE: PORTABLE CHEST 1V PORTABLE CHEST 1V INDICATION: CHEST PAIN, HX DIABETES. COMPARISON: Chest radiograph dated 09/20/2017 FINDINGS: Normal lung volume. No focal consolidation. Pulmonary vascular fullness. Possible trace right pleural effusion. No pneumothorax. Unchanged cardiomegaly. Unchanged atherosclerotic thoracic aorta. No acute osseous abnormality. IMPRESSION: 1. No focal consolidation. 2. Possible trace right pleural effusion. 3. Cardiomegaly. Pulmonary vascular fullness which can be seen with mild pulmonary edema.z ] Course & Med Decision Making Course & Med Decision Making Pertinent Labs and Imaging studies reviewed. (See chart for details) [3:30 PM: The patient's condition remains stable. I spoke with the hospitalist , who accepted the patient to the hospital for further evaluation and treatment. ] Dragon Disclaimer Dragon Disclaimer This electronic medical record was generated, in whole or in part, using a voice recognition dictation system. Departure Departure Impression: Primary Impression: Chest pain Additional Impression: CAD (coronary artery disease) Disposition: ADMITTED INPATIENT Admitting Physician: Xie. Mcadams Condition: STABLE Referrals: WILLY GURROLA MD (PCP) Problem Qualifiers MELVIN KAUFMAN MD Feb 24, 2018 14:12
[2018-02-24 14:28] LABS: BASO # 0.1 x10^3/uL (0.0-0.2); BASO % 1 % (0-3); EOS # 0.2 x10^3/uL (0.0-0.7); EOS % 2 % (0-3); HEMATOCRIT 35.2 % (36.0-47.0); HEMOGLOBIN 12.3 g/dL (12.0-15.5); LYMPH # 2.1 x10^3/uL (1.0-4.8); LYMPH % 21 % (24-48); MEAN CORPUSCULAR HEMOGLOBIN 34 pg (25-35); MEAN CORPUSCULAR HGB CONC 35 g/dL (31-37); MEAN CORPUSCULAR VOLUME 96 fL (79-100); MONO # 0.7 x10^3/uL (0.0-1.1); MONO % 7 % (0-9); NEUT # 6.9 x10^3uL (1.8-7.7); NEUT % 69 % (31-73); PLATELET COUNT 323 x10^3/uL (140-400); RED BLOOD COUNT 3.67 x10^6/uL (3.50-5.40); RED CELL DISTRIBUTION WIDTH 14.7 % (11.5-14.5)
--- NOTE | 2018-02-24 14:37 | RAD ---
PORTABLE CHEST 1V INDICATION: CHEST PAIN, HX DIABETES. COMPARISON: Chest radiograph dated 09/20/2017 FINDINGS: Normal lung volume. No focal consolidation. Pulmonary vascular fullness. Possible trace right pleural effusion. No pneumothorax. Unchanged cardiomegaly. Unchanged atherosclerotic thoracic aorta. No acute osseous abnormality. IMPRESSION: 1. No focal consolidation. 2. Possible trace right pleural effusion. 3. Cardiomegaly. Pulmonary vascular fullness which can be seen with mild pulmonary edema.z Electronically signed by: Taz Weiss MD (02/24/2018 2:34 PM) [facility]
[2018-02-24 14:40] LABS: PROTHROMBIN TIME PATIENT 14.2 SEC (11.7-14.0)
[2018-02-24] MEDS ORDERED: DEXTROSE 50% 25 GM / 50ML DISP.SYRIN. IV ONE (14:45)
[2018-02-24 14:48] LABS: CALCIUM 10.4 mg/dL (8.5-10.1); GFR 23.9; POTASSIUM 4.3 mmol/L (3.5-5.1)
[2018-02-24 14:56] LABS: ALBUMIN 3.1 g/dL (3.4-5.0); ALBUMIN/GLOBULIN RATIO 0.6 (1.0-1.7); TOTAL BILIRUBIN 0.3 mg/dL (0.2-1.0); TOTAL PROTEIN 7.9 g/dL (6.4-8.2)
--- NOTE | 2018-02-24 15:06 | EKG ---
[facility] [address] [place] [address] Test Date: 2018-02-24 Test Time: 14:00:44 Pat Name: TESSA ROGERS Department: Room: Gender: F Academic Support Director: FAYE : 1935 Requested By: MELVIN KAUFMAN Order Number: [id number] Reading MD: Darian Carreno MD Measurements Intervals [place] Rate: 70 P: [place]: QRS: -41 QRSD: 102 T: 133 QT: 426 QTc: 463 Interpretive Statements PROBABLE ATRIAL FIBRILLATION NON-SPECIFIC ST/T CHANGES Electronically Signed On 02-25-2018 12:26:44 CDT by Darian Carreno MD
[2018-02-24] MEDS ORDERED: LABETALOL 20 MG/4 ML DISP.SYRIN. IVP PRN (16:00)
[2018-02-24] MEDS ORDERED: MORPHINE SULFATE 2 MG/ML VIAL. IV PRN (16:00)
[2018-02-24] MEDS ORDERED: DOCUSATE SODIUM 100 MG CAPSULE. PO PRN (16:00)
[2018-02-24] MEDS ORDERED: DEXTROSE 50% 25 GM / 50ML DISP.SYRIN. IV PRN (16:00)
[2018-02-24] MEDS ORDERED: ACETAMINOPHEN 325 MG TABLET. PO PRN (16:00)
[2018-02-24] MEDS ORDERED: traMADol 50 MG TABLET PO PRN (16:00)
[2018-02-24] MEDS ORDERED: ONDANSETRON PF 4 MG/2 ML VIAL. IV PRN (16:00)
--- NOTE | 2018-02-24 16:11 | PDOC1 ---
History and Physical Date of Admission Date of Admission 02/24/18 Identification/Chief Complaint Chief Complaint chest pain Source Source: Caregiver, Chart review, Patient History of Present Illness History of Present Illness HPI HPI Patient is an 83-year-old female past history of coronary artery disease and several other medical problems and presents to the emergency department for chest pain. pt said she lives at assisted living facility. has h/o 2 stents , 5 times ballon angioplasty, last time was 1.5yes ago with dr. Cast. Pt said she has been feeling chest pressure for 2 ds, today about noon time started to feel left side chest pain, achiness, 6/10, no radiation, has some sob, no diaphoresis, N/V or palpitation. The chest pain is intermittent, but cannot tell me how long each time lasts. She feels the pain as like her previous CO. Pt said not sure if had tenderness at chest wall, but has severe tender when i palpitated her left upper chest. also has diffuse mild abd tenderness which she said she didnot know before. said BM normal, no N/V. EKG looks same as last year, first trop neg. 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 She also takes warfarin for a Hx of a fib. Past Medical History Cardiovascular: CAD, CHF, HTN, [place], Valve insufficiency, Pulmonary hypertension , Other Pulmonary: Asthma, Bronchitis GI: GERD, Gastritis Heme/Onc: Cancer Renal/: Chronic renal insuff Endocrine: Diabetes Past Surgical History Past Surgical History breast cancer - L lumpectomy, cellulitis - BLE, Past Surgical History: Appendectomy, Cholecystectomy, Hysterectomy, Knee Replacement, Tonsillectomy, Other Past Surgical History: Pacemaker, Other Family History Family History: Diabetes, Hypertension Social History Smoke: No ALCOHOL: none Drugs: None Current Problem List Problem List Problems Medical Problems: (1) CAD (coronary artery disease) Status: Acute (2) Chest pain Status: Acute Current Medications Current Medications Current Medications Medications (Trade) Dose Ordered Sig/Huyen Start Time Stop Time Status Last Admin Dose Admin Acetaminophen (Tylenol) 650 mg PRN Q6HRS PRN 02/24/18 16:00 UNV Dextrose (Dextrose 50%-Water Syringe) 12.5 gm PRN Q15MIN PRN 02/24/18 16:00 UNV Docusate Sodium (Colace) 100 mg PRN DAILY PRN 02/24/18 16:00 UNV Heparin Sodium (Porcine) (Heparin Sodium) 5,000 unit Q8HRS 02/24/18 22:00 UNV Insulin Human Lispro (HumaLOG) 0-9 UNITS TIDWMEALS 02/24/18 17:00 UNV Labetalol HCl (Normodyne Iv Push) 20 mg PRN Q2HR PRN 02/24/18 16:00 UNV Morphine Sulfate (Morphine Sulfate) 2 mg PRN Q2HR PRN 02/24/18 16:00 UNV Ondansetron HCl (Zofran) 4 mg PRN Q6HRS PRN 02/24/18 16:00 UNV Tramadol HCl (Ultram) 50 mg PRN Q6HRS PRN 02/24/18 16:00 UNV Allergies Allergies Allergies Coded Allergies Type Severity Reaction Last Updated Verified Iodinated Contrast- Oral and IV Dye Allergy Severe Anaphylaxis 07/19/17 Yes adhesive tape Allergy Intermediate 07/19/17 Yes I S O L A T I O N *CONTACT* Allergy Unknown 07/19/17 Yes meperidine Adverse Reaction Intermediate Vomiting 07/19/17 Yes ROS Review of System CONSTITUTIONAL: No fever or chills EYES: No recent changes SKIN: No rash or itching CARDIOVASCULAR: No chest pain, syncope, palpitations, or edema RESPIRATORY: No SOB or cough GASTROINTESTINAL: No nausea, vomiting or abdominal pain NEUROLOGICAL: No headaches or weakness ENDOCRINE: No cold or heat intolerance GENITOURINARY: No urgency or frequency of urination MUSCULOSKELETAL: No back pain or joint pain LYMPHATICS: No enlarged lymph nodes PSYCHIATRIC: No anxiety or depression Physical Exam Physical Exam GEN.: No apparent distress. Alert and oriented. HEENT: Head is normocephalic, atraumatic NECK: Supple. LUNGS: Clear to auscultation. left upper chest wall tenderness. HEART: irregular, S1, S2 present. Peripheral pulses intact ABDOMEN: Soft, Positive bowel sounds. diffuse mild abd tenderness. EXTREMITIES: Without any cyanosis. bl feet trace edema. NEUROLOGIC: Normal speech, normal tone PSYCHIATRIC: Normal affect, normal mood. SKIN: No ulcerations Vitals Vitals Vital Signs Date Time Temp Pulse Resp B/P (MAP) Pulse Ox O2 Delivery O2 Flow Rate FiO2 02/24/18 13:50 98.7 68 20 133/63 (86) 99 Room Air 98.7 Labs Labs Laboratory Tests Test 02/24/18 14:19 White Blood Count 10.0 x10^3/uL (4.0-11.0) Red Blood Count 3.67 x10^6/uL (3.50-5.40) Hemoglobin 12.3 g/dL (12.0-15.5) Hematocrit 35.2 % (36.0-47.0) Mean Corpuscular Volume 96 fL (79-100) Mean Corpuscular Hemoglobin 34 pg (25-35) Mean Corpuscular Hemoglobin Concent 35 g/dL (31-37) Red Cell Distribution Width 14.7 % (11.5-14.5) Platelet Count 323 x10^3/uL (140-400) Neutrophils (%) (Auto) 69 % (31-73) Lymphocytes (%) (Auto) 21 % (24-48) Monocytes (%) (Auto) 7 % (0-9) Eosinophils (%) (Auto) 2 % (0-3) Basophils (%) (Auto) 1 % (0-3) Neutrophils # (Auto) 6.9 x10^3uL (1.8-7.7) Lymphocytes # (Auto) 2.1 x10^3/uL (1.0-4.8) Monocytes # (Auto) 0.7 x10^3/uL (0.0-1.1) Eosinophils # (Auto) 0.2 x10^3/uL (0.0-0.7) Basophils # (Auto) 0.1 x10^3/uL (0.0-0.2) Prothrombin Time 14.2 SEC (11.7-14.0) Prothromb Time International Ratio 1.2 (0.8-1.1) Sodium Level 143 mmol/L (136-145) Potassium Level 4.3 mmol/L (3.5-5.1) Chloride Level 103 mmol/L (98-107) Carbon Dioxide Level 32 mmol/L (21-32) Anion Gap 8 (6-14) Blood Urea Nitrogen 64 mg/dL (7-20) Creatinine 2.0 mg/dL (0.6-1.0) Estimated GFR (Cockcroft-Gault) 23.9 BUN/Creatinine Ratio 32 (6-20) Glucose Level 49 mg/dL (70-99) Calcium Level 10.4 mg/dL (8.5-10.1) Total Bilirubin 0.3 mg/dL (0.2-1.0) Aspartate Amino Transf (AST/SGOT) 17 U/L (15-37) Alanine Aminotransferase (ALT/SGPT) 21 U/L (14-59) Alkaline Phosphatase 134 U/L (46-116) Creatine Kinase 34 U/L (26-192) Creatine Kinase MB (Mass) 1.2 ng/mL (0.0-3.6) Creatine Kinase MB Relative Index 3.5 % (0-4) Troponin I Quantitative < 0.017 ng/mL (0.000-0.055) RE-Pfv-C-Type Natriuretic Peptide 6486 pg/mL (0-449) Total Protein 7.9 g/dL (6.4-8.2) Albumin 3.1 g/dL (3.4-5.0) Albumin/Globulin Ratio 0.6 (1.0-1.7) Laboratory Tests Test 02/24/18 14:19 White Blood Count 10.0 x10^3/uL (4.0-11.0) Red Blood Count 3.67 x10^6/uL (3.50-5.40) Hemoglobin 12.3 g/dL (12.0-15.5) Hematocrit 35.2 % (36.0-47.0) Mean Corpuscular Volume 96 fL (79-100) Mean Corpuscular Hemoglobin 34 pg (25-35) Mean Corpuscular Hemoglobin Concent 35 g/dL (31-37) Red Cell Distribution Width 14.7 % (11.5-14.5) Platelet Count 323 x10^3/uL (140-400) Neutrophils (%) (Auto) 69 % (31-73) Lymphocytes (%) (Auto) 21 % (24-48) Monocytes (%) (Auto) 7 % (0-9) Eosinophils (%) (Auto) 2 % (0-3) Basophils (%) (Auto) 1 % (0-3) Neutrophils # (Auto) 6.9 x10^3uL (1.8-7.7) Lymphocytes # (Auto) 2.1 x10^3/uL (1.0-4.8) Monocytes # (Auto) 0.7 x10^3/uL (0.0-1.1) Eosinophils # (Auto) 0.2 x10^3/uL (0.0-0.7) Basophils # (Auto) 0.1 x10^3/uL (0.0-0.2) Prothrombin Time 14.2 SEC (11.7-14.0) Prothromb Time International Ratio 1.2 (0.8-1.1) Sodium Level 143 mmol/L (136-145) Potassium Level 4.3 mmol/L (3.5-5.1) Chloride Level 103 mmol/L (98-107) Carbon Dioxide Level 32 mmol/L (21-32) Anion Gap 8 (6-14) Blood Urea Nitrogen 64 mg/dL (7-20) Creatinine 2.0 mg/dL (0.6-1.0) Estimated GFR (Cockcroft-Gault) 23.9 BUN/Creatinine Ratio 32 (6-20) Glucose Level 49 mg/dL (70-99) Calcium Level 10.4 mg/dL (8.5-10.1) Total Bilirubin 0.3 mg/dL (0.2-1.0) Aspartate Amino Transf (AST/SGOT) 17 U/L (15-37) Alanine Aminotransferase (ALT/SGPT) 21 U/L (14-59) Alkaline Phosphatase 134 U/L (46-116) Creatine Kinase 34 U/L (26-192) Creatine Kinase MB (Mass) 1.2 ng/mL (0.0-3.6) Creatine Kinase MB Relative Index 3.5 % (0-4) Troponin I Quantitative < 0.017 ng/mL (0.000-0.055) CE-Guz-A-Type Natriuretic Peptide 6486 pg/mL (0-449) Total Protein 7.9 g/dL (6.4-8.2) Albumin 3.1 g/dL (3.4-5.0) Albumin/Globulin Ratio 0.6 (1.0-1.7) VTE Prophylaxis Ordered VTE Prophylaxis Devices: Yes VTE Pharmacological Prophylaxi: Yes Assessment/Plan Assessment/Plan chest pain, unstable angina vs. muscular pain with tenderness h/o CAD with PCI h/o CHF diastolic, stable griffin, vasomotor ckd3 chronic afib on warfarin dm2 on insulin h/o BCa left lumpectomy GERD HTN h/o Menieres PPM Morbid obesity plan: renal, card consult cycle CE, CHEck tsh, lipid panel, echo renal US need verify home meds on warfarin , INR daily, currently not therapeutic SSI for now dvt ppx PTOT labs tmr ALHAJI TONG MD Feb 24, 2018 16:11
[2018-02-24 16:30] VITALS: BP 135/50
--- NOTE | 2018-02-24 16:59 | RAD ---
Ultrasound renal complete 02/24/2018 CLINICAL INDICATION: Acute kidney injury. COMPARISON: None. FINDINGS: Right kidney measures 10.9 cm in length without hydronephrosis or abnormal perinephric fluid collection. Left kidney measures 12.1 cm in length without hydronephrosis or abnormal perinephric fluid collection. The partially distended urinary bladder is unremarkable. IMPRESSION: Both kidneys present without hydronephrosis. Electronically signed by: Deni Osborne MD (02/24/2018 4:55 PM) [facility]
--- NOTE | 2018-02-24 17:35 | RAD ---
KUB INDICATION: ABDOMINAL PAIN COMPARISON: MRI abdomen dated 01/01/2017 FINDINGS: No obvious free air. Nonobstructive bowel gas pattern. Dense atherosclerotic calcifications, particularly in the region of the splenic artery. Surgical clips in the right upper abdomen. No acute osseous abnormality. Cardiomegaly. IMPRESSION: 1. Nonobstructive bowel gas pattern. 2. Cardiomegaly. Electronically signed by: Taz Weiss MD (02/24/2018 5:31 PM) [facility]
[2018-02-24] MEDS: INSULIN LISPRO 300 UNITS/3 ML INSULN.PEN. SQ SCH (18:08)
[2018-02-24 19:00] VITALS: BP 123/50
[2018-02-24] MEDS ORDERED: OXYC-323 PO (19:21)
[2018-02-24] MEDS ORDERED: POTA10TA12 PO (19:21)
[2018-02-24] MEDS ORDERED: SPIR25TA5 PO (19:21)
[2018-02-24] MEDS ORDERED: OMEP40CA5 PO (19:21)
[2018-02-24] MEDS ORDERED: MAGNESIUM HYDROXIDE 2,400 MG/30 ML ORAL.SUSP. PO PRN (21:15)
[2018-02-24] MEDS ORDERED: NITROGLYCERIN SUBLINGUAL 0.4 MG BOTTLE OF 25. SL PRN (21:15)
[2018-02-24] MEDS ORDERED: HYDROcodone/APAP 5/325MG 1 TAB TABLET PO PRN (21:15)
[2018-02-24] MEDS: HEPARIN for SUB-Q USE 5,000 UNIT/ML VIAL. SQ SCH (21:43)
[2018-02-24 23:00] VITALS: BP 126/46
[2018-02-25 03:00] VITALS: BP 130/63
[2018-02-25 04:02] LABS: BASO % 0 % (0-3); EOS # 0.2 x10^3/uL (0.0-0.7); EOS % 3 % (0-3); HEMATOCRIT 30.5 % (36.0-47.0); HEMOGLOBIN 10.7 g/dL (12.0-15.5); LYMPH # 1.6 x10^3/uL (1.0-4.8); LYMPH % 23 % (24-48); MEAN CORPUSCULAR HEMOGLOBIN 34 pg (25-35); MEAN CORPUSCULAR HGB CONC 35 g/dL (31-37); MEAN CORPUSCULAR VOLUME 96 fL (79-100); MONO # 0.7 x10^3/uL (0.0-1.1); MONO % 9 % (0-9); NEUT # 4.5 x10^3uL (1.8-7.7); NEUT % 65 % (31-73); PLATELET COUNT 247 x10^3/uL (140-400); RED BLOOD COUNT 3.19 x10^6/uL (3.50-5.40); RED CELL DISTRIBUTION WIDTH 14.4 % (11.5-14.5)
[2018-02-25 04:11] LABS: PROTHROMBIN TIME PATIENT 14.8 SEC (11.7-14.0)
[2018-02-25 04:34] LABS: CALCIUM 9.5 mg/dL (8.5-10.1); CREATININE 1.8 mg/dL (0.6-1.0); GFR 26.9; POTASSIUM 4.5 mmol/L (3.5-5.1)
[2018-02-25 04:37] LABS: CHOLESTEROL/HDL RATIO 7.6
[2018-02-25] MEDS: HEPARIN for SUB-Q USE 5,000 UNIT/ML VIAL. SQ SCH (06:08)
[2018-02-25 07:00] VITALS: BP 121/56
[2018-02-25] MEDS: INSULIN LISPRO 300 UNITS/3 ML INSULN.PEN. SQ SCH ×3 (08:00→17:42)
[2018-02-25] MEDS: DOCUSATE SODIUM 100 MG CAPSULE. PO SCH ×2 (08:32→20:53)
[2018-02-25] MEDS: POTASSIUM CHLORIDE 10 MEQ TABLET.ER. PO SCH (08:32)
[2018-02-25] MEDS: MECLIZINE HCL 12.5 MG TABLET. PO SCH ×2 (08:33→20:54)
[2018-02-25] MEDS: MULTIVITAMIN with MINERAL TABLET. PO SCH (08:33)
[2018-02-25] MEDS: FERROUS SULFATE 325 MG TABLET. PO SCH (08:33)
[2018-02-25] MEDS: CALCIUM CARB/VIT D3 500/200 TABLET. PO SCH (08:33)
[2018-02-25] MEDS: PANTOPRAZOLE 40 MG TABLET.DR. PO SCH (08:33)
[2018-02-25] MEDS: ASPIRIN 325 MG TABLET PO SCH (08:33)
[2018-02-25] MEDS: LOSARTAN POTASSIUM 50 MG TABLET. PO SCH (08:34)
[2018-02-25] MEDS: BUMETANIDE 1 MG TABLET. PO SCH ×2 (08:34→15:15)
[2018-02-25] MEDS: CITALOPRAM 20 MG TABLET. PO SCH (08:34)
[2018-02-25] MEDS: metOLazone 2.5 MG TABLET PO SCH (08:34)
[2018-02-25] MEDS: SPIRONOLACTONE 25 MG TABLET PO SCH (08:34)
[2018-02-25] MEDS ORDERED: NON FORMULARY ITEM (Ranitidine Hcl 150 MG) PO SCH (09:00)
[2018-02-25] MEDS ORDERED: METOPROLOL TART IMMED RELEASE 25 MG TABLET. PO SCH (09:00)
[2018-02-25] MEDS: TRESIBA (INSULIN DEGLUDEC) SQ SCH (09:00)
--- NOTE | 2018-02-25 09:09 | PDOC2 ---
CONSULT Date of Consult Date of Consult DATE: 02/25/18 TIME: 08:59 Reason for Consult Reason for Consult: chest pain Referring Physician Referring Physician: Dr. Lima Valentine Identification/Chief Complaint Chief Complaint chest pain x1d Source Source: Patient History of Present Illness Reason for Visit: Zoey Astorga is a 83 y/o F with past hx of CAD s/p stent last placed 1.[address] Gurrola, CHF, HTN, SC, Valve insufficiency presenting to the ED with chest pain that begun at noon on 02/24. She said that she was just sitting in her chair, when the painc delmer on all of a sudden, and was about 6/ 10. The pain was located on the left side of the chest, and was non-radiating. At the time she said when someone put pressure on the external surface of the chest, there was increased pain. She stated she hasnt had chest pain in many months and had been doing well she thought. She could not think of any precipitating factors that contributed to this episode of pain. Past Medical History Cardiovascular: CAD, CHF, HTN, SC, Valve insufficiency, Pulmonary hypertension , Other Pulmonary: Asthma, Bronchitis GI: GERD, Gastritis Heme/Onc: Cancer Musculoskeletal: Osteoarthritis Renal/: Chronic renal insuff Endocrine: Diabetes Past Surgical History Past Surgical History: Pacemaker, Other Family History Family History: Diabetes, Hypertension Social History No ALCOHOL: none Drugs: None Lives: with Family Current Problem List Problem List Problems Medical Problems: (1) CAD (coronary artery disease) Status: Acute (2) Chest pain Status: Acute Current Medications Current Medications Current Medications Dextrose (Dextrose 50%-Water Syringe) 12.5 gm 1X ONCE IV Last administered on 02/24/18at 14:42; Start 02/24/18 at 14:45; Stop 02/24/18 at 14:46; Status DC Acetaminophen (Tylenol) 650 mg PRN Q6HRS PRN PO FEVER; Start 02/24/18 at 16:00 Ondansetron HCl (Zofran) 4 mg PRN Q6HRS PRN IV NAUSEA/VOMITING; Start at 16:00 Morphine Sulfate (Morphine Sulfate) 2 mg PRN Q2HR PRN IV MODERATE TO SEVERE PAIN; Start 02/24/18 at 16:00 Tramadol HCl (Ultram) 50 mg PRN Q6HRS PRN PO MILD TO MODERATE PAIN; Start at 16:00 Docusate Sodium (Colace) 100 mg PRN DAILY PRN PO CONSTIPATION; Start 02/24/18 at 16:00 Labetalol HCl (Normodyne Iv Push) 20 mg PRN Q2HR PRN IVP HYPERTENSION, SEE COMMENTS; Start 02/24/18 at 16:00 Heparin Sodium (Porcine) (Heparin Sodium) 5,000 unit Q8HRS SQ Last administered on 02/25/18at 06:08; Start 02/24/18 at 22:00 Insulin Human Lispro (HumaLOG) 0-9 UNITS TIDWMEALS SQ Last administered on at 18:08; Start 02/24/18 at 17:00 Dextrose (Dextrose 50%-Water Syringe) 12.5 gm PRN Q15MIN PRN IV SEE COMMENTS; Start 02/24/18 at 16:00 Influenza Virus Vaccine (Afluria Trivalent [id number] Syringe) 0.5 ml ONCE ONCE VAX IM ; Start 02/25/18 at 09:00; Stop 02/25/18 at 09:01 Aspirin (Derek Aspirin) 325 mg DAILY PO Last administered on 02/25/18at 08:33; Start 02/25/18 at 09:00 Calcium/Vitamin D (Oscal D 500mg/ 200uts) 1 tab DAILYWBKFT PO Last administered on 02/25/18at 08:33; Start 02/25/18 at 08:00 Docusate Sodium (Colace) 100 mg BID PO Last administered on 02/25/18at 08:32; Start 02/25/18 at 09:00 Ferrous Sulfate (Feosol) 325 mg DAILY PO Last administered on 02/25/18at 08:33 ; Start 02/25/18 at 09:00 Acetaminophen/ Hydrocodone Bitart (Lortab 5/325) 1 tab PRN Q12HRS PRN PO PAIN; Start 02/24/18 at 21:15 Metoprolol Tartrate (Lopressor) 625 mg BID PO ; Start 02/25/18 at 09:00; Stop 02/25/18 at 09:00; Status DC Nitroglycerin (Nitrostat) 0.4 mg PRN Q5MIN PRN SL CHEST PAIN; Start 02/24/18 at 21:15 Potassium Chloride (Klor-Con) 10 meq DAILY PO Last administered on 02/25/18 08:32; Start 02/25/18 at 09:00 Bumetanide (Bumex) 2 mg BID92 PO Last administered on 02/25/18 08:34; Start 02/25/18 at 09:00 Diltiazem HCl (Cardizem 24hr Cd) 180 mg DAILY PO Last administered on 08:33; Start 02/25/18 at 09:00 Citalopram Hydrobromide (CeleXA) 40 mg DAILY PO Last administered on 08:34; Start 02/25/18 at 09:00 Losartan Potassium (Cozaar) 50 mg DAILY PO Last administered on 02/25/18 08: 34; Start 02/25/18 at 09:00 Magnesium Hydroxide (Milk Of Magnesia) 2,400 mg PRN DAILY PRN PO CONSTIPATION; Start 02/24/18 at 21:15 Meclizine HCl (Antivert) 12.5 mg BID PO Last administered on 02/25/18 08:33; Start 02/25/18 at 09:00 Metolazone (Zaroxolyn) 5 mg DAILY PO Last administered on 02/25/18 08:34; Start 02/25/18 at 09:00 Multivitamins (Thera M Plus) 1 tab DAILY PO Last administered on 02/25/18 08: 33; Start 02/25/18 at 09:00 Pantoprazole Sodium (Protonix) 40 mg DAILYAC PO Last administered on 08:33; Start 02/25/18 at 07:30 Non-Formulary Medication (Ranitidine Hcl ) 150 mg DAILY PO ; Start 02/25/18 at 09:00; Stop 02/25/18 at 09:00; Status DC Spironolactone (Aldactone) 25 mg DAILY PO Last administered on 02/25/18 08:34 ; Start 02/25/18 at 09:00 Warfarin Sodium (Coumadin) 5 mg DAILY16 PO ; Start 02/25/18 at 16:00 Insulin Glargine (Lantus) 15 units QHS SQ ; Start 02/25/18 at 21:00 Warfarin Sodium (Coumadin Per Physician) 1 each PRN DAILY PRN MC SEE COMMENTS; Start 02/25/18 at 16:00 Active Scripts Active Reported Percocet 5-325 Mg Tablet (Oxycodone/Acetaminophen) 1 Each Tablet 1 Tab PO PRN Q6HRS PRN Spironolactone 25 Mg Tablet 25 Mg PO DAILY Potassium Chloride 10 Meq Tablet.er 10 Meq PO DAILY Omeprazole 40 Mg Capsule.dr 40 Mg PO DAILY Warfarin Sodium 5 Mg Tablet 1 Tab PO DAILY Ranitidine Hcl 150 Mg Tablet 150 Mg PO DAILY Amoxicillin 500 Mg Tablet 1 Tab PO TID Calcium 500 + Vit D 200 Caplet (Calcium Carbonate/Vitamin D3) 1 Each Tablet 1 Each PO DAILY NITROGLYCERIN SubLingual (Nitroglycerin) 0.4 Mg Tab.subl 0.4 Mg SL PRN Q5MIN PRN Miralax (Polyethylene Glycol 3350) 17 Gm Powd.pack 1 Packet PO DAILY Milk Of Magnesia (Magnesium Hydroxide) 2,400 Mg/10 Ml Oral.susp 2,400 Mg PO PRN DAILY PRN Escitalopram Oxalate 20 Mg Tablet 1 Tab PO DAILY Doxycycline Hyclate 100 Mg Tablet 1 Tab PO BID Diltiazem 24HR Cd (Diltiazem Hcl) 180 Mg Cap.er.24h 1 Cap PO DAILY Ascorbic Acid 500 Mg Tablet 500 Mg PO Bumetanide 2 Mg Tablet 2 Tab PO BID Multivitamins (Multivitamin) 1 Each Tablet 1 Tab PO DAILY Metolazone 5 Mg Tablet 5 Mg PO DAILY Novolog Flexpen (Insulin Aspart) 100 Unit/1 Ml Insuln.pen 10 Unit SQ TIDAC Tresiba Flextouch U-100 (Insulin Degludec) 100 Unit/1 Ml Insuln.pen 34 Unit SQ DAILYWBKFT Ferrous Sulfate 325 Mg Tablet 1 Tab PO DAILY Dulcolax (Bisacodyl) 10 Mg Supp.rect 10 Mg RC PRN DAILY PRN Aspirin 325 Mg Tablet 1 Tab PO DAILY Metoprolol Tartrate 25 Mg Tablet 25 Tab PO BID Acetaminophen 500 Mg Tablet 500 Mg PO PRN Q8HRS PRN Meclizine Hcl 12.5 Mg Tablet 1 Tab PO BID Hydrocodone-Apap 5-325 (Hydrocodone Bit/Acetaminophen) 1 Each Tablet 1 Tab PO Q12HR PRN Stool Softener (Docusate Sodium) 100 Mg Capsule 100 Mg PO BID Losartan Potassium 100 Mg Tablet 50 Mg PO DAILY Allergies Allergies: Coded Allergies: Iodinated Contrast- Oral and IV Dye (Verified Allergy, Severe, Anaphylaxis , 07/19/17) adhesive tape (Verified Allergy, Intermediate, 07/19/17) I S O L A T I O N *CONTACT* (Verified Allergy, Unknown, 07/19/17) mrsa meperidine (Verified Adverse Reaction, Intermediate, Vomiting, 07/19/17) ROS General: No: Fatigue, Malaise Eyes: No Blurry vision, No Decreased vision, No Double vision, No Photophobia HEENT: No: Visual Changes, Hearing change, Sore Throat Respiratory: YES: Other (pt states there is baseline SOB, but laya any increase from baseline at this time ) Cardiovascular: yes Chest Pain (pt states chest pain in 07/14 at this time, non radiating, pressure along left side of chest wall), yes Other Gastrointestinal: No Nausea, No Vomiting, No Diarrhea, No Constipation Genitourinary: No Dysuria, No Frequency, No Hematuria Physical Exam General: Alert, Oriented X3, Cooperative, No acute distress Lungs: Clear to auscultation, Normal air movement Heart: Normal S1, Normal S2, Other (irregular rythym) Extremities: No clubbing, No cyanosis, Normal pulses Skin: Other (chronic venous stasis changes in distal LE b/l) Vitals VITALS Vital Signs Date Time Temp Pulse Resp B/P (MAP) Pulse Ox O2 Delivery O2 Flow Rate FiO2 02/25/18 08:34 70 130/63 02/25/18 07:00 97.7 18 100 Nasal Cannula 2.0 97.7 Labs Labs Laboratory Tests Test 02/24/18 14:19 02/24/18 14:36 02/24/18 16:25 02/24/18 17:13 White Blood Count 10.0 x10^3/uL (4.0-11.0) Red Blood Count 3.67 x10^6/uL (3.50-5.40) Hemoglobin 12.3 g/dL (12.0-15.5) Hematocrit 35.2 % (36.0-47.0) Mean Corpuscular Volume 96 fL (79-100) Mean Corpuscular Hemoglobin 34 pg (25-35) Mean Corpuscular Hemoglobin Concent 35 g/dL (31-37) Red Cell Distribution Width 14.7 % (11.5-14.5) Platelet Count 323 x10^3/uL (140-400) Neutrophils (%) (Auto) 69 % (31-73) Lymphocytes (%) (Auto) 21 % (24-48) Monocytes (%) (Auto) 7 % (0-9) Eosinophils (%) (Auto) 2 % (0-3) Basophils (%) (Auto) 1 % (0-3) Neutrophils # (Auto) 6.9 x10^3uL (1.8-7.7) Lymphocytes # (Auto) 2.1 x10^3/uL (1.0-4.8) Monocytes # (Auto) 0.7 x10^3/uL (0.0-1.1) Eosinophils # (Auto) 0.2 x10^3/uL (0.0-0.7) Basophils # (Auto) 0.1 x10^3/uL (0.0-0.2) Prothrombin Time 14.2 SEC (11.7-14.0) Prothromb Time International Ratio 1.2 (0.8-1.1) Sodium Level 143 mmol/L (136-145) Potassium Level 4.3 mmol/L (3.5-5.1) Chloride Level 103 mmol/L (98-107) Carbon Dioxide Level 32 mmol/L (21-32) Anion Gap 8 (6-14) Blood Urea Nitrogen 64 mg/dL (7-20) Creatinine 2.0 mg/dL (0.6-1.0) Estimated GFR (Cockcroft-Gault) 23.9 BUN/Creatinine Ratio 32 (6-20) Glucose Level 49 mg/dL (70-99) Calcium Level 10.4 mg/dL (8.5-10.1) Total Bilirubin 0.3 mg/dL (0.2-1.0) Aspartate Amino Transf (AST/SGOT) 17 U/L (15-37) Alanine Aminotransferase (ALT/SGPT) 21 U/L (14-59) Alkaline Phosphatase 134 U/L (46-116) Creatine Kinase 34 U/L (26-192) Creatine Kinase MB (Mass) 1.2 ng/mL (0.0-3.6) Creatine Kinase MB Relative Index 3.5 % (0-4) Troponin I Quantitative < 0.017 ng/mL (0.000-0.055) OC-Wsm-W-Type Natriuretic Peptide 6486 pg/mL (0-449) Total Protein 7.9 g/dL (6.4-8.2) Albumin 3.1 g/dL (3.4-5.0) Albumin/Globulin Ratio 0.6 (1.0-1.7) Thyroid Stimulating Hormone (TSH) 3.648 uIU/mL (0.358-3.74) Glucose (Fingerstick) 49 mg/dL (70-99) 177 mg/dL (70-99) 220 mg/dL (70-99) Test 02/24/18 18:20 02/24/18 21:40 02/25/18 03:15 02/25/18 07:38 Troponin I Quantitative < 0.017 ng/mL (0.000-0.055) < 0.017 ng/mL (0.000-0.055) Glucose (Fingerstick) 264 mg/dL (70-99) 108 mg/dL (70-99) White Blood Count 7.0 x10^3/uL (4.0-11.0) Red Blood Count 3.19 x10^6/uL (3.50-5.40) Hemoglobin 10.7 g/dL (12.0-15.5) Hematocrit 30.5 % (36.0-47.0) Mean Corpuscular Volume 96 fL (79-100) Mean Corpuscular Hemoglobin 34 pg (25-35) Mean Corpuscular Hemoglobin Concent 35 g/dL (31-37) Red Cell Distribution Width 14.4 % (11.5-14.5) Platelet Count 247 x10^3/uL (140-400) Neutrophils (%) (Auto) 65 % (31-73) Lymphocytes (%) (Auto) 23 % (24-48) Monocytes (%) (Auto) 9 % (0-9) Eosinophils (%) (Auto) 3 % (0-3) Basophils (%) (Auto) 0 % (0-3) Neutrophils # (Auto) 4.5 x10^3uL (1.8-7.7) Lymphocytes # (Auto) 1.6 x10^3/uL (1.0-4.8) Monocytes # (Auto) 0.7 x10^3/uL (0.0-1.1) Eosinophils # (Auto) 0.2 x10^3/uL (0.0-0.7) Basophils # (Auto) 0.0 x10^3/uL (0.0-0.2) Prothrombin Time 14.8 SEC (11.7-14.0) Prothromb Time International Ratio 1.2 (0.8-1.1) Sodium Level 143 mmol/L (136-145) Potassium Level 4.5 mmol/L (3.5-5.1) Chloride Level 105 mmol/L (98-107) Carbon Dioxide Level 31 mmol/L (21-32) Anion Gap 7 (6-14) Blood Urea Nitrogen 56 mg/dL (7-20) Creatinine 1.8 mg/dL (0.6-1.0) Estimated GFR (Cockcroft-Gault) 26.9 Glucose Level 140 mg/dL (70-99) Calcium Level 9.5 mg/dL (8.5-10.1) Triglycerides Level 197 mg/dL (0-150) Cholesterol Level 237 mg/dL (0-200) LDL Cholesterol, Calculated 167 mg/dL (0-100) VLDL Cholesterol, Calculated 39 mg/dL (0-40) Non-HDL Cholesterol Calculated 206 mg/dL (0-129) HDL Cholesterol 31 mg/dL (40-60) Cholesterol/HDL Ratio 7.6 Laboratory Tests Test 02/24/18 14:19 02/24/18 14:36 02/24/18 16:25 02/24/18 17:13 White Blood Count 10.0 x10^3/uL (4.0-11.0) Red Blood Count 3.67 x10^6/uL (3.50-5.40) Hemoglobin 12.3 g/dL (12.0-15.5) Hematocrit 35.2 % (36.0-47.0) Mean Corpuscular Volume 96 fL (79-100) Mean Corpuscular Hemoglobin 34 pg (25-35) Mean Corpuscular Hemoglobin Concent 35 g/dL (31-37) Red Cell Distribution Width 14.7 % (11.5-14.5) Platelet Count 323 x10^3/uL (140-400) Neutrophils (%) (Auto) 69 % (31-73) Lymphocytes (%) (Auto) 21 % (24-48) Monocytes (%) (Auto) 7 % (0-9) Eosinophils (%) (Auto) 2 % (0-3) Basophils (%) (Auto) 1 % (0-3) Neutrophils # (Auto) 6.9 x10^3uL (1.8-7.7) Lymphocytes # (Auto) 2.1 x10^3/uL (1.0-4.8) Monocytes # (Auto) 0.7 x10^3/uL (0.0-1.1) Eosinophils # (Auto) 0.2 x10^3/uL (0.0-0.7) Basophils # (Auto) 0.1 x10^3/uL (0.0-0.2) Prothrombin Time 14.2 SEC (11.7-14.0) Prothromb Time International Ratio 1.2 (0.8-1.1) Sodium Level 143 mmol/L (136-145) Potassium Level 4.3 mmol/L (3.5-5.1) Chloride Level 103 mmol/L (98-107) Carbon Dioxide Level 32 mmol/L (21-32) Anion Gap 8 (6-14) Blood Urea Nitrogen 64 mg/dL (7-20) Creatinine 2.0 mg/dL (0.6-1.0) Estimated GFR (Cockcroft-Gault) 23.9 BUN/Creatinine Ratio 32 (6-20) Glucose Level 49 mg/dL (70-99) Calcium Level 10.4 mg/dL (8.5-10.1) Total Bilirubin 0.3 mg/dL (0.2-1.0) Aspartate Amino Transf (AST/SGOT) 17 U/L (15-37) Alanine Aminotransferase (ALT/SGPT) 21 U/L (14-59) Alkaline Phosphatase 134 U/L (46-116) Creatine Kinase 34 U/L (26-192) Creatine Kinase MB (Mass) 1.2 ng/mL (0.0-3.6) Creatine Kinase MB Relative Index 3.5 % (0-4) Troponin I Quantitative < 0.017 ng/mL (0.000-0.055) RI-Ukl-A-Type Natriuretic Peptide 6486 pg/mL (0-449) Total Protein 7.9 g/dL (6.4-8.2) Albumin 3.1 g/dL (3.4-5.0) Albumin/Globulin Ratio 0.6 (1.0-1.7) Thyroid Stimulating Hormone (TSH) 3.648 uIU/mL (0.358-3.74) Glucose (Fingerstick) 49 mg/dL (70-99) 177 mg/dL (70-99) 220 mg/dL (70-99) Test 02/24/18 18:20 02/24/18 21:40 02/25/18 03:15 02/25/18 07:38 Troponin I Quantitative < 0.017 ng/mL (0.000-0.055) < 0.017 ng/mL (0.000-0.055) Glucose (Fingerstick) 264 mg/dL (70-99) 108 mg/dL (70-99) White Blood Count 7.0 x10^3/uL (4.0-11.0) Red Blood Count 3.19 x10^6/uL (3.50-5.40) Hemoglobin 10.7 g/dL (12.0-15.5) Hematocrit 30.5 % (36.0-47.0) Mean Corpuscular Volume 96 fL (79-100) Mean Corpuscular Hemoglobin 34 pg (25-35) Mean Corpuscular Hemoglobin Concent 35 g/dL (31-37) Red Cell Distribution Width 14.4 % (11.5-14.5) Platelet Count 247 x10^3/uL (140-400) Neutrophils (%) (Auto) 65 % (31-73) Lymphocytes (%) (Auto) 23 % (24-48) Monocytes (%) (Auto) 9 % (0-9) Eosinophils (%) (Auto) 3 % (0-3) Basophils (%) (Auto) 0 % (0-3) Neutrophils # (Auto) 4.5 x10^3uL (1.8-7.7) Lymphocytes # (Auto) 1.6 x10^3/uL (1.0-4.8) Monocytes # (Auto) 0.7 x10^3/uL (0.0-1.1) Eosinophils # (Auto) 0.2 x10^3/uL (0.0-0.7) Basophils # (Auto) 0.0 x10^3/uL (0.0-0.2) Prothrombin Time 14.8 SEC (11.7-14.0) Prothromb Time International Ratio 1.2 (0.8-1.1) Sodium Level 143 mmol/L (136-145) Potassium Level 4.5 mmol/L (3.5-5.1) Chloride Level 105 mmol/L (98-107) Carbon Dioxide Level 31 mmol/L (21-32) Anion Gap 7 (6-14) Blood Urea Nitrogen 56 mg/dL (7-20) Creatinine 1.8 mg/dL (0.6-1.0) Estimated GFR (Cockcroft-Gault) 26.9 Glucose Level 140 mg/dL (70-99) Calcium Level 9.5 mg/dL (8.5-10.1) Triglycerides Level 197 mg/dL (0-150) Cholesterol Level 237 mg/dL (0-200) LDL Cholesterol, Calculated 167 mg/dL (0-100) VLDL Cholesterol, Calculated 39 mg/dL (0-40) Non-HDL Cholesterol Calculated 206 mg/dL (0-129) HDL Cholesterol 31 mg/dL (40-60) Cholesterol/HDL Ratio 7.6 Assessment/Plan Assessment/Plan echocardiogram 02/25 to assess LV function will continue to monitor patient for repeat chest pain WILLY GURROLA MD Feb 25, 2018 09:09
[2018-02-25] MEDS ORDERED: ONDANSETRON ODT 4 MG TAB.RAPDIS. PO PRN (09:45)
[2018-02-25] MEDS ORDERED: ONDANSETRON PF 4 MG/2 ML VIAL. IV PRN (09:45)
[2018-02-25 11:00] VITALS: BP 152/61
--- NOTE | 2018-02-25 11:15 | PDOC ---
PROGRESS NOTES Chief Complaint Chief Complaint chest pain, unstable angina vs. 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 Cast Vitals Vitals Vital Signs Date Time Temp Pulse Resp B/P (MAP) Pulse Ox O2 Delivery O2 Flow Rate FiO2 02/25/18 08:34 70 130/63 02/25/18 07:00 97.7 18 100 Nasal Cannula 2.0 97.7 Physical Exam General: Alert, Oriented X3, Cooperative, No acute distress Heart: Normal S1, Normal S2, Other (irregular rythym) Lungs: Clear Extremities: No clubbing, No cyanosis, Normal pulses Skin: Other (chronic venous stasis changes in distal LE b/l) Labs LABS Laboratory Tests Test 02/24/18 14:19 02/24/18 14:36 02/24/18 16:25 02/24/18 17:13 White Blood Count 10.0 x10^3/uL (4.0-11.0) Red Blood Count 3.67 x10^6/uL (3.50-5.40) Hemoglobin 12.3 g/dL (12.0-15.5) Hematocrit 35.2 % (36.0-47.0) Mean Corpuscular Volume 96 fL (79-100) Mean Corpuscular Hemoglobin 34 pg (25-35) Mean Corpuscular Hemoglobin Concent 35 g/dL (31-37) Red Cell Distribution Width 14.7 % (11.5-14.5) Platelet Count 323 x10^3/uL (140-400) Neutrophils (%) (Auto) 69 % (31-73) Lymphocytes (%) (Auto) 21 % (24-48) Monocytes (%) (Auto) 7 % (0-9) Eosinophils (%) (Auto) 2 % (0-3) Basophils (%) (Auto) 1 % (0-3) Neutrophils # (Auto) 6.9 x10^3uL (1.8-7.7) Lymphocytes # (Auto) 2.1 x10^3/uL (1.0-4.8) Monocytes # (Auto) 0.7 x10^3/uL (0.0-1.1) Eosinophils # (Auto) 0.2 x10^3/uL (0.0-0.7) Basophils # (Auto) 0.1 x10^3/uL (0.0-0.2) Prothrombin Time 14.2 SEC (11.7-14.0) Prothromb Time International Ratio 1.2 (0.8-1.1) Sodium Level 143 mmol/L (136-145) Potassium Level 4.3 mmol/L (3.5-5.1) Chloride Level 103 mmol/L (98-107) Carbon Dioxide Level 32 mmol/L (21-32) Anion Gap 8 (6-14) Blood Urea Nitrogen 64 mg/dL (7-20) Creatinine 2.0 mg/dL (0.6-1.0) Estimated GFR (Cockcroft-Gault) 23.9 BUN/Creatinine Ratio 32 (6-20) Glucose Level 49 mg/dL (70-99) Calcium Level 10.4 mg/dL (8.5-10.1) Total Bilirubin 0.3 mg/dL (0.2-1.0) Aspartate Amino Transf (AST/SGOT) 17 U/L (15-37) Alanine Aminotransferase (ALT/SGPT) 21 U/L (14-59) Alkaline Phosphatase 134 U/L (46-116) Creatine Kinase 34 U/L (26-192) Creatine Kinase MB (Mass) 1.2 ng/mL (0.0-3.6) Creatine Kinase MB Relative Index 3.5 % (0-4) Troponin I Quantitative < 0.017 ng/mL (0.000-0.055) XH-Dwn-Z-Type Natriuretic Peptide 6486 pg/mL (0-449) Total Protein 7.9 g/dL (6.4-8.2) Albumin 3.1 g/dL (3.4-5.0) Albumin/Globulin Ratio 0.6 (1.0-1.7) Thyroid Stimulating Hormone (TSH) 3.648 uIU/mL (0.358-3.74) Glucose (Fingerstick) 49 mg/dL (70-99) 177 mg/dL (70-99) 220 mg/dL (70-99) Test 02/24/18 18:20 02/24/18 21:40 02/25/18 03:15 02/25/18 07:38 Troponin I Quantitative < 0.017 ng/mL (0.000-0.055) < 0.017 ng/mL (0.000-0.055) Glucose (Fingerstick) 264 mg/dL (70-99) 108 mg/dL (70-99) White Blood Count 7.0 x10^3/uL (4.0-11.0) Red Blood Count 3.19 x10^6/uL (3.50-5.40) Hemoglobin 10.7 g/dL (12.0-15.5) Hematocrit 30.5 % (36.0-47.0) Mean Corpuscular Volume 96 fL (79-100) Mean Corpuscular Hemoglobin 34 pg (25-35) Mean Corpuscular Hemoglobin Concent 35 g/dL (31-37) Red Cell Distribution Width 14.4 % (11.5-14.5) Platelet Count 247 x10^3/uL (140-400) Neutrophils (%) (Auto) 65 % (31-73) Lymphocytes (%) (Auto) 23 % (24-48) Monocytes (%) (Auto) 9 % (0-9) Eosinophils (%) (Auto) 3 % (0-3) Basophils (%) (Auto) 0 % (0-3) Neutrophils # (Auto) 4.5 x10^3uL (1.8-7.7) Lymphocytes # (Auto) 1.6 x10^3/uL (1.0-4.8) Monocytes # (Auto) 0.7 x10^3/uL (0.0-1.1) Eosinophils # (Auto) 0.2 x10^3/uL (0.0-0.7) Basophils # (Auto) 0.0 x10^3/uL (0.0-0.2) Prothrombin Time 14.8 SEC (11.7-14.0) Prothromb Time International Ratio 1.2 (0.8-1.1) Sodium Level 143 mmol/L (136-145) Potassium Level 4.5 mmol/L (3.5-5.1) Chloride Level 105 mmol/L (98-107) Carbon Dioxide Level 31 mmol/L (21-32) Anion Gap 7 (6-14) Blood Urea Nitrogen 56 mg/dL (7-20) Creatinine 1.8 mg/dL (0.6-1.0) Estimated GFR (Cockcroft-Gault) 26.9 Glucose Level 140 mg/dL (70-99) Calcium Level 9.5 mg/dL (8.5-10.1) Triglycerides Level 197 mg/dL (0-150) Cholesterol Level 237 mg/dL (0-200) LDL Cholesterol, Calculated 167 mg/dL (0-100) VLDL Cholesterol, Calculated 39 mg/dL (0-40) Non-HDL Cholesterol Calculated 206 mg/dL (0-129) HDL Cholesterol 31 mg/dL (40-60) Cholesterol/HDL Ratio 7.6 Review of Systems Review of Systems A 14 point ROS was completed with the following noted as positive: Other systems reviewed and negative. \CONSTITUTIONAL: No fever or chills EYES: No recent changes SKIN: No rash or itching CARDIOVASCULAR: No chest pain, syncope, palpitations, or edema RESPIRATORY: No SOB or cough GASTROINTESTINAL: No nausea, vomiting or abdominal pain NEUROLOGICAL: No headaches or weakness ENDOCRINE: No cold or heat intolerance GENITOURINARY: No urgency or frequency of urination MUSCULOSKELETAL: No back pain or joint pain LYMPHATICS: No enlarged lymph nodes PSYCHIATRIC: No anxiety or depression Assessment and Plan Assessmemt and Plan Problems Medical Problems: (1) CAD (coronary artery disease) Status: Acute (2) Chest pain Status: Acute Comment Review of Relevant I have reviewed the following items alejandra (where applicable) has been applied. Labs Laboratory Tests Test 02/24/18 14:19 02/24/18 14:36 02/24/18 16:25 02/24/18 17:13 White Blood Count 10.0 x10^3/uL (4.0-11.0) Red Blood Count 3.67 x10^6/uL (3.50-5.40) Hemoglobin 12.3 g/dL (12.0-15.5) Hematocrit 35.2 % (36.0-47.0) Mean Corpuscular Volume 96 fL (79-100) Mean Corpuscular Hemoglobin 34 pg (25-35) Mean Corpuscular Hemoglobin Concent 35 g/dL (31-37) Red Cell Distribution Width 14.7 % (11.5-14.5) Platelet Count 323 x10^3/uL (140-400) Neutrophils (%) (Auto) 69 % (31-73) Lymphocytes (%) (Auto) 21 % (24-48) Monocytes (%) (Auto) 7 % (0-9) Eosinophils (%) (Auto) 2 % (0-3) Basophils (%) (Auto) 1 % (0-3) Neutrophils # (Auto) 6.9 x10^3uL (1.8-7.7) Lymphocytes # (Auto) 2.1 x10^3/uL (1.0-4.8) Monocytes # (Auto) 0.7 x10^3/uL (0.0-1.1) Eosinophils # (Auto) 0.2 x10^3/uL (0.0-0.7) Basophils # (Auto) 0.1 x10^3/uL (0.0-0.2) Prothrombin Time 14.2 SEC (11.7-14.0) Prothromb Time International Ratio 1.2 (0.8-1.1) Sodium Level 143 mmol/L (136-145) Potassium Level 4.3 mmol/L (3.5-5.1) Chloride Level 103 mmol/L (98-107) Carbon Dioxide Level 32 mmol/L (21-32) Anion Gap 8 (6-14) Blood Urea Nitrogen 64 mg/dL (7-20) Creatinine 2.0 mg/dL (0.6-1.0) Estimated GFR (Cockcroft-Gault) 23.9 BUN/Creatinine Ratio 32 (6-20) Glucose Level 49 mg/dL (70-99) Calcium Level 10.4 mg/dL (8.5-10.1) Total Bilirubin 0.3 mg/dL (0.2-1.0) Aspartate Amino Transf (AST/SGOT) 17 U/L (15-37) Alanine Aminotransferase (ALT/SGPT) 21 U/L (14-59) Alkaline Phosphatase 134 U/L (46-116) Creatine Kinase 34 U/L (26-192) Creatine Kinase MB (Mass) 1.2 ng/mL (0.0-3.6) Creatine Kinase MB Relative Index 3.5 % (0-4) Troponin I Quantitative < 0.017 ng/mL (0.000-0.055) UQ-Dqn-Z-Type Natriuretic Peptide 6486 pg/mL (0-449) Total Protein 7.9 g/dL (6.4-8.2) Albumin 3.1 g/dL (3.4-5.0) Albumin/Globulin Ratio 0.6 (1.0-1.7) Thyroid Stimulating Hormone (TSH) 3.648 uIU/mL (0.358-3.74) Glucose (Fingerstick) 49 mg/dL (70-99) 177 mg/dL (70-99) 220 mg/dL (70-99) Test 02/24/18 18:20 02/24/18 21:40 02/25/18 03:15 02/25/18 07:38 Troponin I Quantitative < 0.017 ng/mL (0.000-0.055) < 0.017 ng/mL (0.000-0.055) Glucose (Fingerstick) 264 mg/dL (70-99) 108 mg/dL (70-99) White Blood Count 7.0 x10^3/uL (4.0-11.0) Red Blood Count 3.19 x10^6/uL (3.50-5.40) Hemoglobin 10.7 g/dL (12.0-15.5) Hematocrit 30.5 % (36.0-47.0) Mean Corpuscular Volume 96 fL (79-100) Mean Corpuscular Hemoglobin 34 pg (25-35) Mean Corpuscular Hemoglobin Concent 35 g/dL (31-37) Red Cell Distribution Width 14.4 % (11.5-14.5) Platelet Count 247 x10^3/uL (140-400) Neutrophils (%) (Auto) 65 % (31-73) Lymphocytes (%) (Auto) 23 % (24-48) Monocytes (%) (Auto) 9 % (0-9) Eosinophils (%) (Auto) 3 % (0-3) Basophils (%) (Auto) 0 % (0-3) Neutrophils # (Auto) 4.5 x10^3uL (1.8-7.7) Lymphocytes # (Auto) 1.6 x10^3/uL (1.0-4.8) Monocytes # (Auto) 0.7 x10^3/uL (0.0-1.1) Eosinophils # (Auto) 0.2 x10^3/uL (0.0-0.7) Basophils # (Auto) 0.0 x10^3/uL (0.0-0.2) Prothrombin Time 14.8 SEC (11.7-14.0) Prothromb Time International Ratio 1.2 (0.8-1.1) Sodium Level 143 mmol/L (136-145) Potassium Level 4.5 mmol/L (3.5-5.1) Chloride Level 105 mmol/L (98-107) Carbon Dioxide Level 31 mmol/L (21-32) Anion Gap 7 (6-14) Blood Urea Nitrogen 56 mg/dL (7-20) Creatinine 1.8 mg/dL (0.6-1.0) Estimated GFR (Cockcroft-Gault) 26.9 Glucose Level 140 mg/dL (70-99) Calcium Level 9.5 mg/dL (8.5-10.1) Triglycerides Level 197 mg/dL (0-150) Cholesterol Level 237 mg/dL (0-200) LDL Cholesterol, Calculated 167 mg/dL (0-100) VLDL Cholesterol, Calculated 39 mg/dL (0-40) Non-HDL Cholesterol Calculated 206 mg/dL (0-129) HDL Cholesterol 31 mg/dL (40-60) Cholesterol/HDL Ratio 7.6 Laboratory Tests Test 02/24/18 14:19 02/24/18 14:36 02/24/18 16:25 02/24/18 17:13 White Blood Count 10.0 x10^3/uL (4.0-11.0) Red Blood Count 3.67 x10^6/uL (3.50-5.40) Hemoglobin 12.3 g/dL (12.0-15.5) Hematocrit 35.2 % (36.0-47.0) Mean Corpuscular Volume 96 fL (79-100) Mean Corpuscular Hemoglobin 34 pg (25-35) Mean Corpuscular Hemoglobin Concent 35 g/dL (31-37) Red Cell Distribution Width 14.7 % (11.5-14.5) Platelet Count 323 x10^3/uL (140-400) Neutrophils (%) (Auto) 69 % (31-73) Lymphocytes (%) (Auto) 21 % (24-48) Monocytes (%) (Auto) 7 % (0-9) Eosinophils (%) (Auto) 2 % (0-3) Basophils (%) (Auto) 1 % (0-3) Neutrophils # (Auto) 6.9 x10^3uL (1.8-7.7) Lymphocytes # (Auto) 2.1 x10^3/uL (1.0-4.8) Monocytes # (Auto) 0.7 x10^3/uL (0.0-1.1) Eosinophils # (Auto) 0.2 x10^3/uL (0.0-0.7) Basophils # (Auto) 0.1 x10^3/uL (0.0-0.2) Prothrombin Time 14.2 SEC (11.7-14.0) Prothromb Time International Ratio 1.2 (0.8-1.1) Sodium Level 143 mmol/L (136-145) Potassium Level 4.3 mmol/L (3.5-5.1) Chloride Level 103 mmol/L (98-107) Carbon Dioxide Level 32 mmol/L (21-32) Anion Gap 8 (6-14) Blood Urea Nitrogen 64 mg/dL (7-20) Creatinine 2.0 mg/dL (0.6-1.0) Estimated GFR (Cockcroft-Gault) 23.9 BUN/Creatinine Ratio 32 (6-20) Glucose Level 49 mg/dL (70-99) Calcium Level 10.4 mg/dL (8.5-10.1) Total Bilirubin 0.3 mg/dL (0.2-1.0) Aspartate Amino Transf (AST/SGOT) 17 U/L (15-37) Alanine Aminotransferase (ALT/SGPT) 21 U/L (14-59) Alkaline Phosphatase 134 U/L (46-116) Creatine Kinase 34 U/L (26-192) Creatine Kinase MB (Mass) 1.2 ng/mL (0.0-3.6) Creatine Kinase MB Relative Index 3.5 % (0-4) Troponin I Quantitative < 0.017 ng/mL (0.000-0.055) WG-Nkg-I-Type Natriuretic Peptide 6486 pg/mL (0-449) Total Protein 7.9 g/dL (6.4-8.2) Albumin 3.1 g/dL (3.4-5.0) Albumin/Globulin Ratio 0.6 (1.0-1.7) Thyroid Stimulating Hormone (TSH) 3.648 uIU/mL (0.358-3.74) Glucose (Fingerstick) 49 mg/dL (70-99) 177 mg/dL (70-99) 220 mg/dL (70-99) Test 02/24/18 18:20 02/24/18 21:40 02/25/18 03:15 02/25/18 07:38 Troponin I Quantitative < 0.017 ng/mL (0.000-0.055) < 0.017 ng/mL (0.000-0.055) Glucose (Fingerstick) 264 mg/dL (70-99) 108 mg/dL (70-99) White Blood Count 7.0 x10^3/uL (4.0-11.0) Red Blood Count 3.19 x10^6/uL (3.50-5.40) Hemoglobin 10.7 g/dL (12.0-15.5) Hematocrit 30.5 % (36.0-47.0) Mean Corpuscular Volume 96 fL (79-100) Mean Corpuscular Hemoglobin 34 pg (25-35) Mean Corpuscular Hemoglobin Concent 35 g/dL (31-37) Red Cell Distribution Width 14.4 % (11.5-14.5) Platelet Count 247 x10^3/uL (140-400) Neutrophils (%) (Auto) 65 % (31-73) Lymphocytes (%) (Auto) 23 % (24-48) Monocytes (%) (Auto) 9 % (0-9) Eosinophils (%) (Auto) 3 % (0-3) Basophils (%) (Auto) 0 % (0-3) Neutrophils # (Auto) 4.5 x10^3uL (1.8-7.7) Lymphocytes # (Auto) 1.6 x10^3/uL (1.0-4.8) Monocytes # (Auto) 0.7 x10^3/uL (0.0-1.1) Eosinophils # (Auto) 0.2 x10^3/uL (0.0-0.7) Basophils # (Auto) 0.0 x10^3/uL (0.0-0.2) Prothrombin Time 14.8 SEC (11.7-14.0) Prothromb Time International Ratio 1.2 (0.8-1.1) Sodium Level 143 mmol/L (136-145) Potassium Level 4.5 mmol/L (3.5-5.1) Chloride Level 105 mmol/L (98-107) Carbon Dioxide Level 31 mmol/L (21-32) Anion Gap 7 (6-14) Blood Urea Nitrogen 56 mg/dL (7-20) Creatinine 1.8 mg/dL (0.6-1.0) Estimated GFR (Cockcroft-Gault) 26.9 Glucose Level 140 mg/dL (70-99) Calcium Level 9.5 mg/dL (8.5-10.1) Triglycerides Level 197 mg/dL (0-150) Cholesterol Level 237 mg/dL (0-200) LDL Cholesterol, Calculated 167 mg/dL (0-100) VLDL Cholesterol, Calculated 39 mg/dL (0-40) Non-HDL Cholesterol Calculated 206 mg/dL (0-129) HDL Cholesterol 31 mg/dL (40-60) Cholesterol/HDL Ratio 7.6 Medications Current Medications Dextrose (Dextrose 50%-Water Syringe) 12.5 gm 1X ONCE IV Last administered on 02/24/18at 14:42; Start 02/24/18 at 14:45; Stop 02/24/18 at 14:46; Status DC Acetaminophen (Tylenol) 650 mg PRN Q6HRS PRN PO FEVER; Start 02/24/18 at 16:00 Ondansetron HCl (Zofran) 4 mg PRN Q6HRS PRN IV NAUSEA/VOMITING; Start at 16:00 Morphine Sulfate (Morphine Sulfate) 2 mg PRN Q2HR PRN IV MODERATE TO SEVERE PAIN; Start 02/24/18 at 16:00 Tramadol HCl (Ultram) 50 mg PRN Q6HRS PRN PO MILD TO MODERATE PAIN; Start at 16:00 Docusate Sodium (Colace) 100 mg PRN DAILY PRN PO CONSTIPATION; Start 02/24/18 at 16:00 Labetalol HCl (Normodyne Iv Push) 20 mg PRN Q2HR PRN IVP HYPERTENSION, SEE COMMENTS; Start 02/24/18 at 16:00 Heparin Sodium (Porcine) (Heparin Sodium) 5,000 unit Q8HRS SQ Last administered on 02/25/18at 06:08; Start 02/24/18 at 22:00; Stop 02/25/18 at 09 :33; Status DC Insulin Human Lispro (HumaLOG) 0-9 UNITS TIDWMEALS SQ Last administered on at 18:08; Start 02/24/18 at 17:00 Dextrose (Dextrose 50%-Water Syringe) 12.5 gm PRN Q15MIN PRN IV SEE COMMENTS; Start 02/24/18 at 16:00 Influenza Virus Vaccine (Afluria Trivalent 2795-2816 Syringe) 0.5 ml ONCE ONCE VAX IM ; Start 02/25/18 at 09:00; Stop 02/25/18 at 09:01; Status DC Aspirin (Derek Aspirin) 325 mg DAILY PO Last administered on 02/25/18at 08:33; Start 02/25/18 at 09:00 Calcium/Vitamin D (Oscal D 500mg/ 200uts) 1 tab [id number] PO Last administered on 02/25/18at 08:33; Start 02/25/18 at 08:00 Docusate Sodium (Colace) 100 mg BID PO Last administered on 02/25/18at 08:32; Start 02/25/18 at 09:00 Ferrous Sulfate (Feosol) 325 mg DAILY PO Last administered on 02/25/18at 08:33 ; Start 02/25/18 at 09:00 Acetaminophen/ Hydrocodone Bitart (Lortab 5/325) 1 tab PRN Q12HRS PRN PO PAIN; Start 02/24/18 at 21:15 Metoprolol Tartrate (Lopressor) 625 mg BID PO ; Start 02/25/18 at 09:00; Stop 02/25/18 at 09:00; Status DC Nitroglycerin (Nitrostat) 0.4 mg PRN Q5MIN PRN SL CHEST PAIN; Start 02/24/18 at 21:15 Potassium Chloride (Klor-Con) 10 meq DAILY PO Last administered on 02/25/18 08:32; Start 02/25/18 at 09:00 Bumetanide (Bumex) 2 mg BID92 PO Last administered on 02/25/18 08:34; Start 02/25/18 at 09:00 Diltiazem HCl (Cardizem 24hr Cd) 180 mg DAILY PO Last administered on 08:33; Start 02/25/18 at 09:00 Citalopram Hydrobromide (CeleXA) 40 mg DAILY PO Last administered on 08:34; Start 02/25/18 at 09:00 Losartan Potassium (Cozaar) 50 mg DAILY PO Last administered on 02/25/18 08: 34; Start 02/25/18 at 09:00 Magnesium Hydroxide (Milk Of Magnesia) 2,400 mg PRN DAILY PRN PO CONSTIPATION; Start 02/24/18 at 21:15 Meclizine HCl (Antivert) 12.5 mg BID PO Last administered on 02/25/18at 08:33; Start 02/25/18 at 09:00 Metolazone (Zaroxolyn) 5 mg DAILY PO Last administered on 02/25/18 08:34; Start 02/25/18 at 09:00 Multivitamins (Thera M Plus) 1 tab DAILY PO Last administered on 02/25/18 08: 33; Start 02/25/18 at 09:00 Pantoprazole Sodium (Protonix) 40 mg DAILYAC PO Last administered on 08:33; Start 02/25/18 at 07:30 Non-Formulary Medication (Ranitidine Hcl ) 150 mg DAILY PO ; Start 02/25/18 at 09:00; Stop 02/25/18 at 09:00; Status DC Spironolactone (Aldactone) 25 mg DAILY PO Last administered on 02/25/18at 08:34 ; Start 02/25/18 at 09:00 Warfarin Sodium (Coumadin) 5 mg DAILY16 PO ; Start 02/25/18 at 16:00 Insulin Glargine (Lantus) 15 units QHS SQ ; Start 02/25/18 at 21:00 Warfarin Sodium (Coumadin Per Physician) 1 each PRN DAILY PRN MC SEE COMMENTS; Start 02/25/18 at 16:00 Ondansetron HCl (Zofran) 4 mg PRN Q6HRS PRN IV NAUSEA/VOMITING; Start at 09:45; Status UNV Ondansetron HCl (Zofran Odt) 4 mg PRN Q6HRS PRN PO NAUSEA/VOMITING; Start at 09:45 Enoxaparin Sodium (Lovenox 100mg Syringe) 90 mg DAILY SQ ; Start 02/25/18 at 10 :00 Active Scripts Active Reported Percocet 5-325 Mg Tablet (Oxycodone/Acetaminophen) 1 Each Tablet 1 Tab PO PRN Q6HRS PRN Spironolactone 25 Mg Tablet 25 Mg PO DAILY Potassium Chloride 10 Meq Tablet.er 10 Meq PO DAILY Omeprazole 40 Mg Capsule.dr 40 Mg PO DAILY Warfarin Sodium 5 Mg Tablet 1 Tab PO DAILY Ranitidine Hcl 150 Mg Tablet 150 Mg PO DAILY Amoxicillin 500 Mg Tablet 1 Tab PO TID Calcium 500 + Vit D 200 Caplet (Calcium Carbonate/Vitamin D3) 1 Each Tablet 1 Each PO DAILY NITROGLYCERIN SubLingual (Nitroglycerin) 0.4 Mg Tab.subl 0.4 Mg SL PRN Q5MIN PRN Miralax (Polyethylene Glycol 3350) 17 Gm Powd.pack 1 Packet PO DAILY Milk Of Magnesia (Magnesium Hydroxide) 2,400 Mg/10 Ml Oral.susp 2,400 Mg PO PRN DAILY PRN Escitalopram Oxalate 20 Mg Tablet 1 Tab PO DAILY Doxycycline Hyclate 100 Mg Tablet 1 Tab PO BID Diltiazem 24HR Cd (Diltiazem Hcl) 180 Mg Cap.er.24h 1 Cap PO DAILY Ascorbic Acid 500 Mg Tablet 500 Mg PO Bumetanide 2 Mg Tablet 2 Tab PO BID Multivitamins (Multivitamin) 1 Each Tablet 1 Tab PO DAILY Metolazone 5 Mg Tablet 5 Mg PO DAILY Novolog Flexpen (Insulin Aspart) 100 Unit/1 Ml Insuln.pen 10 Unit SQ TIDAC Tresiba Flextouch U-100 (Insulin Degludec) 100 Unit/1 Ml Insuln.pen 34 Unit SQ DAILYWBKFT Ferrous Sulfate 325 Mg Tablet 1 Tab PO DAILY Dulcolax (Bisacodyl) 10 Mg Supp.rect 10 Mg RC PRN DAILY PRN Aspirin 325 Mg Tablet 1 Tab PO DAILY Metoprolol Tartrate 25 Mg Tablet 25 Tab PO BID Acetaminophen 500 Mg Tablet 500 Mg PO PRN Q8HRS PRN Meclizine Hcl 12.5 Mg Tablet 1 Tab PO BID Hydrocodone-Apap 5-325 (Hydrocodone Bit/Acetaminophen) 1 Each Tablet 1 Tab PO Q12HR PRN Stool Softener (Docusate Sodium) 100 Mg Capsule 100 Mg PO BID Losartan Potassium 100 Mg Tablet 50 Mg PO DAILY Vitals/I & O Vital Sign - Last 24 Hours 02/24/18 02/24/18 02/24/18 02/24/18 13:50 16:30 18:17 19:00 Temp 98.7 97.8 97.9 98.7 97.8 97.9 Pulse 68 64 67 Resp 18 B/P (MAP) 133/63 (86) 135/50 (78) 123/50 (74) Pulse Ox 99 98 97 O2 Delivery Room Air Room Air Room Air 02/24/18 02/24/18 02/25/18 02/25/18 20:27 23:00 03:00 07:00 Temp 97.9 97.7 97.7 97.9 97.7 97.7 Pulse 66 70 75 Resp 18 B/P (MAP) 126/46 (72) 130/63 (85) 121/56 (77) Pulse Ox 100 98 100 O2 Delivery Room Air Room Air Nasal Cannula Nasal Cannula O2 Flow Rate 2.0 2.0 02/25/18 02/25/18 08:33 08:34 Pulse 70 70 B/P (MAP) 130/63 130/63 Intake and Output 02/24/18 02/24/18 02/25/18 15:00 23:00 07:00 Intake Total 240 ml Output Total 300 ml Balance -60 ml JOVANA GARCIA MD Feb 25, 2018 11:15
--- NOTE | 2018-02-25 12:16 | PDOC2 ---
CONSULT Date of Consult Date of Consult DATE: 02/25/18 TIME: 12:12 Reason for Consult Reason for Consult: CKD Referring Physician Referring Physician: RAN Identification/Chief Complaint Chief Complaint CHEST PAIN Source Source: Chart review, Patient History of Present Illness Reason for Visit: THIS IS AN 83 YR OLD WITH CHEST PAIN. SHE HAS A HX OF CAD WITH PTCA AND STENTS COUPLE YEARS AGO. HER CR IS 1.8. SHE HAS ON AVG CR OF 1.8-2.0 C/W STAGE 3 CKD DUE TO HTN AND DM II. NO OTHER HX EXCEPT SOME NOCTURIA AND STRESS INCONTINENCE Past Medical History Cardiovascular: CAD, CHF, HTN, MO, Valve insufficiency, Pulmonary hypertension , Other Pulmonary: Asthma, Bronchitis GI: GERD, Gastritis Heme/Onc: Cancer Musculoskeletal: Osteoarthritis Renal/: Chronic renal insuff Endocrine: Diabetes Past Surgical History Past Surgical History: Pacemaker, Other Family History Family History: Diabetes, Hypertension Social History No ALCOHOL: none Drugs: None Lives: with Family Current Problem List Problem List Problems Medical Problems: (1) CAD (coronary artery disease) Status: Acute (2) Chest pain Status: Acute Current Medications Current Medications Current Medications Dextrose (Dextrose 50%-Water Syringe) 12.5 gm 1X ONCE IV Last administered on 02/24/18at 14:42; Start 02/24/18 at 14:45; Stop 02/24/18 at 14:46; Status DC Acetaminophen (Tylenol) 650 mg PRN Q6HRS PRN PO FEVER; Start 02/24/18 at 16:00 Ondansetron HCl (Zofran) 4 mg PRN Q6HRS PRN IV NAUSEA/VOMITING; Start at 16:00 Morphine Sulfate (Morphine Sulfate) 2 mg PRN Q2HR PRN IV MODERATE TO SEVERE PAIN; Start 02/24/18 at 16:00 Tramadol HCl (Ultram) 50 mg PRN Q6HRS PRN PO MILD TO MODERATE PAIN; Start at 16:00 Docusate Sodium (Colace) 100 mg PRN DAILY PRN PO CONSTIPATION; Start 02/24/18 at 16:00 Labetalol HCl (Normodyne Iv Push) 20 mg PRN Q2HR PRN IVP HYPERTENSION, SEE COMMENTS; Start 02/24/18 at 16:00 Heparin Sodium (Porcine) (Heparin Sodium) 5,000 unit Q8HRS SQ Last administered on 02/25/18at 06:08; Start 02/24/18 at 22:00; Stop 02/25/18 at 09 :33; Status DC Insulin Human Lispro (HumaLOG) 0-9 UNITS TIDWMEALS SQ Last administered on at 18:08; Start 02/24/18 at 17:00 Dextrose (Dextrose 50%-Water Syringe) 12.5 gm PRN Q15MIN PRN IV SEE COMMENTS; Start 02/24/18 at 16:00 Influenza Virus Vaccine (Afluria Trivalent [id number] Syringe) 0.5 ml ONCE ONCE VAX IM ; Start 02/25/18 at 09:00; Stop 02/25/18 at 09:01; Status DC Aspirin (Derek Aspirin) 325 mg DAILY PO Last administered on 02/25/18at 08:33; Start 02/25/18 at 09:00 Calcium/Vitamin D (Oscal D 500mg/ 200uts) 1 tab DAILYWBKFT PO Last administered on 02/25/18at 08:33; Start 02/25/18 at 08:00 Docusate Sodium (Colace) 100 mg BID PO Last administered on 02/25/18at 08:32; Start 02/25/18 at 09:00 Ferrous Sulfate (Feosol) 325 mg DAILY PO Last administered on 02/25/18at 08:33 ; Start 02/25/18 at 09:00 Acetaminophen/ Hydrocodone Bitart (Lortab 5/325) 1 tab PRN Q12HRS PRN PO PAIN; Start 02/24/18 at 21:15 Metoprolol Tartrate (Lopressor) 625 mg BID PO ; Start 02/25/18 at 09:00; Stop 02/25/18 at 09:00; Status DC Nitroglycerin (Nitrostat) 0.4 mg PRN Q5MIN PRN SL CHEST PAIN; Start 02/24/18 at 21:15 Potassium Chloride (Klor-Con) 10 meq DAILY PO Last administered on 02/25/18at 08:32; Start 02/25/18 at 09:00 Bumetanide (Bumex) 2 mg BID92 PO Last administered on 02/25/18at 08:34; Start 02/25/18 at 09:00 Diltiazem HCl (Cardizem 24hr Cd) 180 mg DAILY PO Last administered on 08:33; Start 02/25/18 at 09:00 Citalopram Hydrobromide (CeleXA) 40 mg DAILY PO Last administered on at 08:34; Start 02/25/18 at 09:00 Losartan Potassium (Cozaar) 50 mg DAILY PO Last administered on 02/25/18 08: 34; Start 02/25/18 at 09:00 Magnesium Hydroxide (Milk Of Magnesia) 2,400 mg PRN DAILY PRN PO CONSTIPATION; Start 02/24/18 at 21:15 Meclizine HCl (Antivert) 12.5 mg BID PO Last administered on 02/25/18 08:33; Start 02/25/18 at 09:00 Metolazone (Zaroxolyn) 5 mg DAILY PO Last administered on 02/25/18 08:34; Start 02/25/18 at 09:00 Multivitamins (Thera M Plus) 1 tab DAILY PO Last administered on 02/25/18at 08: 33; Start 02/25/18 at 09:00 Pantoprazole Sodium (Protonix) 40 mg DAILYAC PO Last administered on 08:33; Start 02/25/18 at 07:30 Non-Formulary Medication (Ranitidine Hcl ) 150 mg DAILY PO ; Start 02/25/18 at 09:00; Stop 02/25/18 at 09:00; Status DC Spironolactone (Aldactone) 25 mg DAILY PO Last administered on 02/25/18at 08:34 ; Start 02/25/18 at 09:00 Warfarin Sodium (Coumadin) 5 mg DAILY16 PO ; Start 02/25/18 at 16:00 Insulin Glargine (Lantus) 15 units QHS SQ ; Start 02/25/18 at 21:00 Warfarin Sodium (Coumadin Per Physician) 1 each PRN DAILY PRN MC SEE COMMENTS; Start 02/25/18 at 16:00 Ondansetron HCl (Zofran) 4 mg PRN Q6HRS PRN IV NAUSEA/VOMITING; Start at 09:45; Status UNV Ondansetron HCl (Zofran Odt) 4 mg PRN Q6HRS PRN PO NAUSEA/VOMITING; Start at 09:45 Enoxaparin Sodium (Lovenox 100mg Syringe) 90 mg DAILY SQ ; Start 02/25/18 at 10 :00 Non-Formulary Medication 34 ea DAILY SQ ; Start 02/25/18 at 09:00 Active Scripts Active Reported Percocet 5-325 Mg Tablet (Oxycodone/Acetaminophen) 1 Each Tablet 1 Tab PO PRN Q6HRS PRN Spironolactone 25 Mg Tablet 25 Mg PO DAILY Potassium Chloride 10 Meq Tablet.er 10 Meq PO DAILY Omeprazole 40 Mg Capsule.dr 40 Mg PO DAILY Warfarin Sodium 5 Mg Tablet 1 Tab PO DAILY Ranitidine Hcl 150 Mg Tablet 150 Mg PO DAILY Amoxicillin 500 Mg Tablet 1 Tab PO TID Calcium 500 + Vit D 200 Caplet (Calcium Carbonate/Vitamin D3) 1 Each Tablet 1 Each PO DAILY NITROGLYCERIN SubLingual (Nitroglycerin) 0.4 Mg Tab.subl 0.4 Mg SL PRN Q5MIN PRN Miralax (Polyethylene Glycol 3350) 17 Gm Powd.pack 1 Packet PO DAILY Milk Of Magnesia (Magnesium Hydroxide) 2,400 Mg/10 Ml Oral.susp 2,400 Mg PO PRN DAILY PRN Escitalopram Oxalate 20 Mg Tablet 1 Tab PO DAILY Doxycycline Hyclate 100 Mg Tablet 1 Tab PO BID Diltiazem 24HR Cd (Diltiazem Hcl) 180 Mg Cap.er.24h 1 Cap PO DAILY Ascorbic Acid 500 Mg Tablet 500 Mg PO Bumetanide 2 Mg Tablet 2 Tab PO BID Multivitamins (Multivitamin) 1 Each Tablet 1 Tab PO DAILY Metolazone 5 Mg Tablet 5 Mg PO DAILY Novolog Flexpen (Insulin Aspart) 100 Unit/1 Ml Insuln.pen 10 Unit SQ TIDAC Tresiba Flextouch U-100 (Insulin Degludec) 100 Unit/1 Ml Insuln.pen 34 Unit SQ DAILYWBKFT Ferrous Sulfate 325 Mg Tablet 1 Tab PO DAILY Dulcolax (Bisacodyl) 10 Mg Supp.rect 10 Mg RC PRN DAILY PRN Aspirin 325 Mg Tablet 1 Tab PO DAILY Metoprolol Tartrate 25 Mg Tablet 25 Tab PO BID Acetaminophen 500 Mg Tablet 500 Mg PO PRN Q8HRS PRN Meclizine Hcl 12.5 Mg Tablet 1 Tab PO BID Hydrocodone-Apap 5-325 (Hydrocodone Bit/Acetaminophen) 1 Each Tablet 1 Tab PO Q12HR PRN Stool Softener (Docusate Sodium) 100 Mg Capsule 100 Mg PO BID Losartan Potassium 100 Mg Tablet 50 Mg PO DAILY Allergies Allergies: Coded Allergies: Iodinated Contrast- Oral and IV Dye (Verified Allergy, Severe, Anaphylaxis , 07/19/17) adhesive tape (Verified Allergy, Intermediate, 07/19/17) I S O L A T I O N *CONTACT* (Verified Allergy, Unknown, 07/19/17) mrsa meperidine (Verified Adverse Reaction, Intermediate, Vomiting, 07/19/17) ROS General: YES: Fatigue PSYCHOLOGICAL ROS: YES: Anxiety Eyes: Yes Decreased vision HEENT: YES: Heacaches Respiratory: YES: Cough Cardiovascular: yes Chest Pain Gastrointestinal: Yes Constipation Genitourinary: YES Incontinence, YES Other (NOCTURIA) Musculoskeletal: Yes Muscular Weakness Neurological: Yes Weakness Skin: Yes Dry Skin Physical Exam General: Alert, Oriented X3, Cooperative, No acute distress HEENT: Atraumatic, PERRLA Lungs: Clear to auscultation Heart: Regular rate Abdomen: Normal bowel sounds, Soft, No tenderness Extremities: No cyanosis Skin: No breakdown Neuro: Normal speech, Cranial nerves 3-12 NL Psych/Mental Status: Mental status NL, Mood NL MUSCULOSKELETAL: No deformity, No swelling Vitals VITALS Vital Signs Date Time Temp Pulse Resp B/P (MAP) Pulse Ox O2 Delivery O2 Flow Rate FiO2 02/25/18 08:34 70 130/63 02/25/18 07:00 97.7 18 100 Nasal Cannula 2.0 97.7 Labs Labs Laboratory Tests Test 02/24/18 14:19 02/24/18 14:36 02/24/18 16:25 02/24/18 17:13 White Blood Count 10.0 x10^3/uL (4.0-11.0) Red Blood Count 3.67 x10^6/uL (3.50-5.40) Hemoglobin 12.3 g/dL (12.0-15.5) Hematocrit 35.2 % (36.0-47.0) Mean Corpuscular Volume 96 fL (79-100) Mean Corpuscular Hemoglobin 34 pg (25-35) Mean Corpuscular Hemoglobin Concent 35 g/dL (31-37) Red Cell Distribution Width 14.7 % (11.5-14.5) Platelet Count 323 x10^3/uL (140-400) Neutrophils (%) (Auto) 69 % (31-73) Lymphocytes (%) (Auto) 21 % (24-48) Monocytes (%) (Auto) 7 % (0-9) Eosinophils (%) (Auto) 2 % (0-3) Basophils (%) (Auto) 1 % (0-3) Neutrophils # (Auto) 6.9 x10^3uL (1.8-7.7) Lymphocytes # (Auto) 2.1 x10^3/uL (1.0-4.8) Monocytes # (Auto) 0.7 x10^3/uL (0.0-1.1) Eosinophils # (Auto) 0.2 x10^3/uL (0.0-0.7) Basophils # (Auto) 0.1 x10^3/uL (0.0-0.2) Prothrombin Time 14.2 SEC (11.7-14.0) Prothromb Time International Ratio 1.2 (0.8-1.1) Sodium Level 143 mmol/L (136-145) Potassium Level 4.3 mmol/L (3.5-5.1) Chloride Level 103 mmol/L (98-107) Carbon Dioxide Level 32 mmol/L (21-32) Anion Gap 8 (6-14) Blood Urea Nitrogen 64 mg/dL (7-20) Creatinine 2.0 mg/dL (0.6-1.0) Estimated GFR (Cockcroft-Gault) 23.9 BUN/Creatinine Ratio 32 (6-20) Glucose Level 49 mg/dL (70-99) Calcium Level 10.4 mg/dL (8.5-10.1) Total Bilirubin 0.3 mg/dL (0.2-1.0) Aspartate Amino Transf (AST/SGOT) 17 U/L (15-37) Alanine Aminotransferase (ALT/SGPT) 21 U/L (14-59) Alkaline Phosphatase 134 U/L (46-116) Creatine Kinase 34 U/L (26-192) Creatine Kinase MB (Mass) 1.2 ng/mL (0.0-3.6) Creatine Kinase MB Relative Index 3.5 % (0-4) Troponin I Quantitative < 0.017 ng/mL (0.000-0.055) CM-Jcz-L-Type Natriuretic Peptide 6486 pg/mL (0-449) Total Protein 7.9 g/dL (6.4-8.2) Albumin 3.1 g/dL (3.4-5.0) Albumin/Globulin Ratio 0.6 (1.0-1.7) Thyroid Stimulating Hormone (TSH) 3.648 uIU/mL (0.358-3.74) Glucose (Fingerstick) 49 mg/dL (70-99) 177 mg/dL (70-99) 220 mg/dL (70-99) Test 02/24/18 18:20 02/24/18 21:40 02/25/18 03:15 02/25/18 07:38 Troponin I Quantitative < 0.017 ng/mL (0.000-0.055) < 0.017 ng/mL (0.000-0.055) Glucose (Fingerstick) 264 mg/dL (70-99) 108 mg/dL (70-99) White Blood Count 7.0 x10^3/uL (4.0-11.0) Red Blood Count 3.19 x10^6/uL (3.50-5.40) Hemoglobin 10.7 g/dL (12.0-15.5) Hematocrit 30.5 % (36.0-47.0) Mean Corpuscular Volume 96 fL (79-100) Mean Corpuscular Hemoglobin 34 pg (25-35) Mean Corpuscular Hemoglobin Concent 35 g/dL (31-37) Red Cell Distribution Width 14.4 % (11.5-14.5) Platelet Count 247 x10^3/uL (140-400) Neutrophils (%) (Auto) 65 % (31-73) Lymphocytes (%) (Auto) 23 % (24-48) Monocytes (%) (Auto) 9 % (0-9) Eosinophils (%) (Auto) 3 % (0-3) Basophils (%) (Auto) 0 % (0-3) Neutrophils # (Auto) 4.5 x10^3uL (1.8-7.7) Lymphocytes # (Auto) 1.6 x10^3/uL (1.0-4.8) Monocytes # (Auto) 0.7 x10^3/uL (0.0-1.1) Eosinophils # (Auto) 0.2 x10^3/uL (0.0-0.7) Basophils # (Auto) 0.0 x10^3/uL (0.0-0.2) Prothrombin Time 14.8 SEC (11.7-14.0) Prothromb Time International Ratio 1.2 (0.8-1.1) Sodium Level 143 mmol/L (136-145) Potassium Level 4.5 mmol/L (3.5-5.1) Chloride Level 105 mmol/L (98-107) Carbon Dioxide Level 31 mmol/L (21-32) Anion Gap 7 (6-14) Blood Urea Nitrogen 56 mg/dL (7-20) Creatinine 1.8 mg/dL (0.6-1.0) Estimated GFR (Cockcroft-Gault) 26.9 Glucose Level 140 mg/dL (70-99) Calcium Level 9.5 mg/dL (8.5-10.1) Triglycerides Level 197 mg/dL (0-150) Cholesterol Level 237 mg/dL (0-200) LDL Cholesterol, Calculated 167 mg/dL (0-100) VLDL Cholesterol, Calculated 39 mg/dL (0-40) Non-HDL Cholesterol Calculated 206 mg/dL (0-129) HDL Cholesterol 31 mg/dL (40-60) Cholesterol/HDL Ratio 7.6 Test 02/25/18 11:29 Glucose (Fingerstick) 279 mg/dL (70-99) Laboratory Tests Test 02/24/18 14:19 02/24/18 14:36 02/24/18 16:25 02/24/18 17:13 White Blood Count 10.0 x10^3/uL (4.0-11.0) Red Blood Count 3.67 x10^6/uL (3.50-5.40) Hemoglobin 12.3 g/dL (12.0-15.5) Hematocrit 35.2 % (36.0-47.0) Mean Corpuscular Volume 96 fL (79-100) Mean Corpuscular Hemoglobin 34 pg (25-35) Mean Corpuscular Hemoglobin Concent 35 g/dL (31-37) Red Cell Distribution Width 14.7 % (11.5-14.5) Platelet Count 323 x10^3/uL (140-400) Neutrophils (%) (Auto) 69 % (31-73) Lymphocytes (%) (Auto) 21 % (24-48) Monocytes (%) (Auto) 7 % (0-9) Eosinophils (%) (Auto) 2 % (0-3) Basophils (%) (Auto) 1 % (0-3) Neutrophils # (Auto) 6.9 x10^3uL (1.8-7.7) Lymphocytes # (Auto) 2.1 x10^3/uL (1.0-4.8) Monocytes # (Auto) 0.7 x10^3/uL (0.0-1.1) Eosinophils # (Auto) 0.2 x10^3/uL (0.0-0.7) Basophils # (Auto) 0.1 x10^3/uL (0.0-0.2) Prothrombin Time 14.2 SEC (11.7-14.0) Prothromb Time International Ratio 1.2 (0.8-1.1) Sodium Level 143 mmol/L (136-145) Potassium Level 4.3 mmol/L (3.5-5.1) Chloride Level 103 mmol/L (98-107) Carbon Dioxide Level 32 mmol/L (21-32) Anion Gap 8 (6-14) Blood Urea Nitrogen 64 mg/dL (7-20) Creatinine 2.0 mg/dL (0.6-1.0) Estimated GFR (Cockcroft-Gault) 23.9 BUN/Creatinine Ratio 32 (6-20) Glucose Level 49 mg/dL (70-99) Calcium Level 10.4 mg/dL (8.5-10.1) Total Bilirubin 0.3 mg/dL (0.2-1.0) Aspartate Amino Transf (AST/SGOT) 17 U/L (15-37) Alanine Aminotransferase (ALT/SGPT) 21 U/L (14-59) Alkaline Phosphatase 134 U/L (46-116) Creatine Kinase 34 U/L (26-192) Creatine Kinase MB (Mass) 1.2 ng/mL (0.0-3.6) Creatine Kinase MB Relative Index 3.5 % (0-4) Troponin I Quantitative < 0.017 ng/mL (0.000-0.055) IG-Thj-K-Type Natriuretic Peptide 6486 pg/mL (0-449) Total Protein 7.9 g/dL (6.4-8.2) Albumin 3.1 g/dL (3.4-5.0) Albumin/Globulin Ratio 0.6 (1.0-1.7) Thyroid Stimulating Hormone (TSH) 3.648 uIU/mL (0.358-3.74) Glucose (Fingerstick) 49 mg/dL (70-99) 177 mg/dL (70-99) 220 mg/dL (70-99) Test 02/24/18 18:20 02/24/18 21:40 02/25/18 03:15 02/25/18 07:38 Troponin I Quantitative < 0.017 ng/mL (0.000-0.055) < 0.017 ng/mL (0.000-0.055) Glucose (Fingerstick) 264 mg/dL (70-99) 108 mg/dL (70-99) White Blood Count 7.0 x10^3/uL (4.0-11.0) Red Blood Count 3.19 x10^6/uL (3.50-5.40) Hemoglobin 10.7 g/dL (12.0-15.5) Hematocrit 30.5 % (36.0-47.0) Mean Corpuscular Volume 96 fL (79-100) Mean Corpuscular Hemoglobin 34 pg (25-35) Mean Corpuscular Hemoglobin Concent 35 g/dL (31-37) Red Cell Distribution Width 14.4 % (11.5-14.5) Platelet Count 247 x10^3/uL (140-400) Neutrophils (%) (Auto) 65 % (31-73) Lymphocytes (%) (Auto) 23 % (24-48) Monocytes (%) (Auto) 9 % (0-9) Eosinophils (%) (Auto) 3 % (0-3) Basophils (%) (Auto) 0 % (0-3) Neutrophils # (Auto) 4.5 x10^3uL (1.8-7.7) Lymphocytes # (Auto) 1.6 x10^3/uL (1.0-4.8) Monocytes # (Auto) 0.7 x10^3/uL (0.0-1.1) Eosinophils # (Auto) 0.2 x10^3/uL (0.0-0.7) Basophils # (Auto) 0.0 x10^3/uL (0.0-0.2) Prothrombin Time 14.8 SEC (11.7-14.0) Prothromb Time International Ratio 1.2 (0.8-1.1) Sodium Level 143 mmol/L (136-145) Potassium Level 4.5 mmol/L (3.5-5.1) Chloride Level 105 mmol/L (98-107) Carbon Dioxide Level 31 mmol/L (21-32) Anion Gap 7 (6-14) Blood Urea Nitrogen 56 mg/dL (7-20) Creatinine 1.8 mg/dL (0.6-1.0) Estimated GFR (Cockcroft-Gault) 26.9 Glucose Level 140 mg/dL (70-99) Calcium Level 9.5 mg/dL (8.5-10.1) Triglycerides Level 197 mg/dL (0-150) Cholesterol Level 237 mg/dL (0-200) LDL Cholesterol, Calculated 167 mg/dL (0-100) VLDL Cholesterol, Calculated 39 mg/dL (0-40) Non-HDL Cholesterol Calculated 206 mg/dL (0-129) HDL Cholesterol 31 mg/dL (40-60) Cholesterol/HDL Ratio 7.6 Test 02/25/18 11:29 Glucose (Fingerstick) 279 mg/dL (70-99) Assessment/Plan Assessment/Plan IMP CHEST PAIN CKD STAGE 3 WITH CR BASELINE OF 1.8-2.0 DM II HTN HX OF CAD WITH PTCA AND STENTS OBESITY PLAN CARDIAC EVAL HYDRATE IF CATH NEEDED RENAL SONO NEG ECHOCARDIOGRAM TODAY JOSHUA HERNANDEZ MD Feb 25, 2018 12:16
[2018-02-25 15:00] VITALS: BP 136/53
[2018-02-25] MEDS: WARFARIN 5 MG TABLET. PO SCH (17:30)
--- NOTE | 2018-02-25 17:58 | CARD ---
MR#: [id number] Date of Study: 02/25/2018 Ordering Physician: ALHAJI TONG, Referring Physician: ALHAJI TONG Tech: Jhoana Ravi RDCS APPROVED REPORT EXAM: Two-dimensional and M-mode echocardiogram with Doppler and color Doppler. Other Information Quality : Good INDICATION Chest Pain Surgery/Intervention Pacemaker: 2D DIMENSIONS RVDd3.2 (2.9-3.5cm)Left Atrium(2D)5.4 (1.6-4.0cm) IVSd1.2 (0.7-1.1cm)Aortic Root(2D)2.8 (2.0-3.7cm) LVDd4.4 (3.9-5.9cm)LVOT Diameter2.1 (1.8-2.4cm) PWd1.1 (0.7-1.1cm)LVDs3.0 (2.5-4.0cm) FS (%) 30.9 %SV51.3 ml LVEF(%)60.0 (>50%) Aortic Valve AoV Peak Amilcar.130.4cm/sAoV VTI27.9cm AO Peak GR.6.8mmHgLVOT Peak Amilcar.69.2cm/s LVOT VTI 17.23cmAO Mean GR.4mmHg MARIA ELENA (VMAX)1.09gb1LFU (VTI)2.08cm2 AI P 1/2 Fung161al Mitral Valve MV E Hlppmjgb873.4cm/sMV DECEL LTXL833lz MV A Dwnyeutx67.7cm/sMV PBJ31iu E/A Ratio2.3MVA (PHT)4.29cm2 TDI E/Lateral E'12.6E/Medial E'20.1 Tricuspid Valve TR P. Kodxclue923lt/sRAP LRYWFABU2hxSs TR Peak Gr.87hwAyZZGA58chPe Pulmonary Vein S1 Grmleknk14.6cm/sD2 Utczocax17.3cm/s LEFT VENTRICLE The left ventricle is normal size. There is mild concentric left ventricular hypertrophy. The left ve ntricular systolic function is normal and the ejection fraction is within normal range. The Ejection Fraction is 60%. There is normal LV segmental wall motion. Transmitral Doppler flow pattern is restri ctive diastolic dysfunction. RIGHT VENTRICLE The right ventricle is normal size. The right ventricular systolic function is normal. ATRIA The left atrium is moderately dilated. The right atrium is moderately dilated. The interatrial septum is intact with no evidence for an atrial septal defect or patent foramen ovale as noted on 2-D or Do ppler imaging. AORTIC VALVE The aortic valve is calcified but opens well. Doppler and Color Flow revealed mild to moderate aortic regurgitation. There is no significant aortic valvular stenosis. There is no aortic valvular vegetat ion. MITRAL VALVE The mitral valve is calcified but opens well. Mitral annular calcification is mild to moderate. There is no evidence of mitral valve prolapse. There is no mitral valve stenosis. Doppler and Color-flow r evealed moderate mitral regurgitation. TRICUSPID VALVE The tricuspid valve is normal in structure and function. Doppler and Color Flow revealed mild to mode rate tricuspid regurgitation. There is moderate pulmonary hypertension. The PA pressure was estimated at 55 mmHg. There is no tricuspid valve stenosis. PULMONIC VALVE The pulmonic valve is not well visualized. Doppler and Color Flow revealed mild pulmonic valvular reg urgitation. There is no pulmonic valvular stenosis. GREAT VESSELS The aortic root is normal in size. The ascending aorta is normal in size. The IVC is normal in size a nd collapses >50% with inspiration. PERICARDIAL EFFUSION There is a trace of pericardial effusion. Critical Notification Critical Value: No <Conclusion> There is mild concentric left ventricular hypertrophy. The left ventricular systolic function is normal and the ejection fraction is within normal range. T he Ejection Fraction is 60%. Transmitral Doppler flow pattern is restrictive diastolic dysfunction. The left atrium is moderately dilated. The right atrium is moderately dilated. Doppler and Color Flow revealed mild to moderate aortic regurgitation. The mitral valve is calcified but opens well. Mitral annular calcification is mild to moderate. Doppler and Color-flow revealed moderate mitral regurgitation. Doppler and Color Flow revealed mild to moderate tricuspid regurgitation. There is moderate pulmonary hypertension. The PA pressure was estimated at 55 mmHg. The pulmonic valve is not well visualized. There is a trace of pericardial effusion. Signed by : Pelon Cast MD Electronically Approved : 02/25/2018 17:57:52
[2018-02-25 19:00] VITALS: BP 132/57
[2018-02-25] MEDS ORDERED: INSULIN GLARGINE 300 UNITS/3 ML INSULN.PEN. SQ SCH (21:00)
[2018-02-25 22:31] VITALS: BP 137/58
[2018-02-26 03:01] VITALS: BP 152/74
[2018-02-26 06:39] LABS: CALCIUM 9.7 mg/dL (8.5-10.1); CREATININE 1.6 mg/dL (0.6-1.0); GFR 30.9; POTASSIUM 4.6 mmol/L (3.5-5.1)
[2018-02-26 07:40] VITALS: BP 149/75
[2018-02-26] MEDS: INSULIN LISPRO 300 UNITS/3 ML INSULN.PEN. SQ SCH ×3 (08:00→18:24)
[2018-02-26] MEDS: ASPIRIN 325 MG TABLET PO SCH (09:00)
[2018-02-26] MEDS: CITALOPRAM 20 MG TABLET. PO SCH (09:00)
[2018-02-26] MEDS: BUMETANIDE 1 MG TABLET. PO SCH ×2 (09:00→14:39)
[2018-02-26] MEDS: FERROUS SULFATE 325 MG TABLET. PO SCH (09:00)
[2018-02-26] MEDS: CALCIUM CARB/VIT D3 500/200 TABLET. PO SCH (09:01)
[2018-02-26] MEDS: metOLazone 2.5 MG TABLET PO SCH (09:01)
[2018-02-26] MEDS: SPIRONOLACTONE 25 MG TABLET PO SCH (09:01)
[2018-02-26] MEDS: DOCUSATE SODIUM 100 MG CAPSULE. PO SCH (09:01)
[2018-02-26] MEDS: LOSARTAN POTASSIUM 50 MG TABLET. PO SCH (09:02)
[2018-02-26] MEDS: MULTIVITAMIN with MINERAL TABLET. PO SCH (09:02)
[2018-02-26] MEDS: PANTOPRAZOLE 40 MG TABLET.DR. PO SCH (09:02)
[2018-02-26] MEDS: MECLIZINE HCL 12.5 MG TABLET. PO SCH (09:02)
[2018-02-26] MEDS: POTASSIUM CHLORIDE 10 MEQ TABLET.ER. PO SCH (09:02)
[2018-02-26] MEDS: TRESIBA (INSULIN DEGLUDEC) SQ SCH (10:21)
[2018-02-26 10:32] VITALS: BP 159/59
[2018-02-26] MEDS ORDERED: BISACODYL 10 MG SUPP.RECT. RC PRN (11:00)
[2018-02-26] MEDS ORDERED: oxyCODONE/APAP 5/325 1 TAB TABLET PO PRN (11:00)
[2018-02-26] MEDS ORDERED: POLYETHYLENE GLYCOL 3350 17 GM PACKET. PO SCH (11:00)
[2018-02-26] MEDS ORDERED: ASCORBIC ACID 500 MG TABLET PO SCH (11:00)
[2018-02-26] MEDS ORDERED: ACETAMINOPHEN 500 MG TABLET PO PRN (11:00)
--- NOTE | 2018-02-26 11:00 | PDOC ---
PROGRESS NOTES Chief Complaint Chief Complaint chest pain, unstable angina vs. 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 Metolazone is on file but she's not getting her Bumex here I defer this to cardiology or renal Creatinine stable INR still low at 1.2 She claims to me that she gets bleeding with the Lovenox shots twice a day Plan: Resume 10 units 3 times a day, resume 34 units daily at bedtime insulin DC Lovenox per patient request Warfarin 5 mg daily per physician Dr. Cast usually manages her warfarin as outpatient I have provided a copy of the echocardiogram I defer restarting Bumex to renal/cardiology She wants to go home soon hopefully today We'll defer to cards Discussed with RN at bedside Vitals Vitals Vital Signs Date Time Temp Pulse Resp B/P (MAP) Pulse Ox O2 Delivery O2 Flow Rate FiO2 02/26/18 10:32 97.6 68 18 159/59 (92) 99 Room Air 97.6 02/26/18 03:01 2.0 Physical Exam General: Alert, Oriented X3, Cooperative, No acute distress Heart: Regular rate Lungs: Clear Abdomen: Normal bowel sounds, Soft, No tenderness Extremities: No cyanosis Skin: No breakdown Labs LABS Laboratory Tests Test 02/25/18 11:29 02/25/18 17:09 02/25/18 20:17 02/26/18 05:05 Glucose (Fingerstick) 279 mg/dL (70-99) 163 mg/dL (70-99) 265 mg/dL (70-99) Sodium Level 142 mmol/L (136-145) Potassium Level 4.6 mmol/L (3.5-5.1) Chloride Level 103 mmol/L (98-107) Carbon Dioxide Level 32 mmol/L (21-32) Anion Gap 7 (6-14) Blood Urea Nitrogen 50 mg/dL (7-20) Creatinine 1.6 mg/dL (0.6-1.0) Estimated GFR (Cockcroft-Gault) 30.9 Glucose Level 115 mg/dL (70-99) Calcium Level 9.7 mg/dL (8.5-10.1) Test 02/26/18 07:44 Glucose (Fingerstick) 125 mg/dL (70-99) Review of Systems Review of Systems A 14 point ROS was completed with the following noted as positive: Other systems reviewed and negative. \CONSTITUTIONAL: No fever or chills EYES: No recent changes SKIN: No rash or itching CARDIOVASCULAR: No chest pain, syncope, palpitations, or edema RESPIRATORY: No SOB or cough GASTROINTESTINAL: No nausea, vomiting or abdominal pain NEUROLOGICAL: No headaches or weakness ENDOCRINE: No cold or heat intolerance GENITOURINARY: No urgency or frequency of urination MUSCULOSKELETAL: No back pain or joint pain LYMPHATICS: No enlarged lymph nodes PSYCHIATRIC: No anxiety or depression Assessment and Plan Assessmemt and Plan Problems Medical Problems: (1) CAD (coronary artery disease) Status: Acute (2) Chest pain Status: Acute Comment Review of Relevant I have reviewed the following items alejandra (where applicable) has been applied. Labs Laboratory Tests Test 02/24/18 14:19 02/24/18 14:36 02/24/18 16:25 02/24/18 17:13 White Blood Count 10.0 x10^3/uL (4.0-11.0) Red Blood Count 3.67 x10^6/uL (3.50-5.40) Hemoglobin 12.3 g/dL (12.0-15.5) Hematocrit 35.2 % (36.0-47.0) Mean Corpuscular Volume 96 fL (79-100) Mean Corpuscular Hemoglobin 34 pg (25-35) Mean Corpuscular Hemoglobin Concent 35 g/dL (31-37) Red Cell Distribution Width 14.7 % (11.5-14.5) Platelet Count 323 x10^3/uL (140-400) Neutrophils (%) (Auto) 69 % (31-73) Lymphocytes (%) (Auto) 21 % (24-48) Monocytes (%) (Auto) 7 % (0-9) Eosinophils (%) (Auto) 2 % (0-3) Basophils (%) (Auto) 1 % (0-3) Neutrophils # (Auto) 6.9 x10^3uL (1.8-7.7) Lymphocytes # (Auto) 2.1 x10^3/uL (1.0-4.8) Monocytes # (Auto) 0.7 x10^3/uL (0.0-1.1) Eosinophils # (Auto) 0.2 x10^3/uL (0.0-0.7) Basophils # (Auto) 0.1 x10^3/uL (0.0-0.2) Prothrombin Time 14.2 SEC (11.7-14.0) Prothromb Time International Ratio 1.2 (0.8-1.1) Sodium Level 143 mmol/L (136-145) Potassium Level 4.3 mmol/L (3.5-5.1) Chloride Level 103 mmol/L (98-107) Carbon Dioxide Level 32 mmol/L (21-32) Anion Gap 8 (6-14) Blood Urea Nitrogen 64 mg/dL (7-20) Creatinine 2.0 mg/dL (0.6-1.0) Estimated GFR (Cockcroft-Gault) 23.9 BUN/Creatinine Ratio 32 (6-20) Glucose Level 49 mg/dL (70-99) Calcium Level 10.4 mg/dL (8.5-10.1) Total Bilirubin 0.3 mg/dL (0.2-1.0) Aspartate Amino Transf (AST/SGOT) 17 U/L (15-37) Alanine Aminotransferase (ALT/SGPT) 21 U/L (14-59) Alkaline Phosphatase 134 U/L (46-116) Creatine Kinase 34 U/L (26-192) Creatine Kinase MB (Mass) 1.2 ng/mL (0.0-3.6) Creatine Kinase MB Relative Index 3.5 % (0-4) Troponin I Quantitative < 0.017 ng/mL (0.000-0.055) DT-Umy-U-Type Natriuretic Peptide 6486 pg/mL (0-449) Total Protein 7.9 g/dL (6.4-8.2) Albumin 3.1 g/dL (3.4-5.0) Albumin/Globulin Ratio 0.6 (1.0-1.7) Thyroid Stimulating Hormone (TSH) 3.648 uIU/mL (0.358-3.74) Glucose (Fingerstick) 49 mg/dL (70-99) 177 mg/dL (70-99) 220 mg/dL (70-99) Test 02/24/18 18:20 02/24/18 21:40 02/25/18 00:30 02/25/18 03:15 Troponin I Quantitative < 0.017 ng/mL (0.000-0.055) < 0.017 ng/mL (0.000-0.055) Glucose (Fingerstick) 264 mg/dL (70-99) Nasal Screen MRSA (PCR) Negative (Negative) White Blood Count 7.0 x10^3/uL (4.0-11.0) Red Blood Count 3.19 x10^6/uL (3.50-5.40) Hemoglobin 10.7 g/dL (12.0-15.5) Hematocrit 30.5 % (36.0-47.0) Mean Corpuscular Volume 96 fL (79-100) Mean Corpuscular Hemoglobin 34 pg (25-35) Mean Corpuscular Hemoglobin Concent 35 g/dL (31-37) Red Cell Distribution Width 14.4 % (11.5-14.5) Platelet Count 247 x10^3/uL (140-400) Neutrophils (%) (Auto) 65 % (31-73) Lymphocytes (%) (Auto) 23 % (24-48) Monocytes (%) (Auto) 9 % (0-9) Eosinophils (%) (Auto) 3 % (0-3) Basophils (%) (Auto) 0 % (0-3) Neutrophils # (Auto) 4.5 x10^3uL (1.8-7.7) Lymphocytes # (Auto) 1.6 x10^3/uL (1.0-4.8) Monocytes # (Auto) 0.7 x10^3/uL (0.0-1.1) Eosinophils # (Auto) 0.2 x10^3/uL (0.0-0.7) Basophils # (Auto) 0.0 x10^3/uL (0.0-0.2) Prothrombin Time 14.8 SEC (11.7-14.0) Prothromb Time International Ratio 1.2 (0.8-1.1) Sodium Level 143 mmol/L (136-145) Potassium Level 4.5 mmol/L (3.5-5.1) Chloride Level 105 mmol/L (98-107) Carbon Dioxide Level 31 mmol/L (21-32) Anion Gap 7 (6-14) Blood Urea Nitrogen 56 mg/dL (7-20) Creatinine 1.8 mg/dL (0.6-1.0) Estimated GFR (Cockcroft-Gault) 26.9 Glucose Level 140 mg/dL (70-99) Calcium Level 9.5 mg/dL (8.5-10.1) Triglycerides Level 197 mg/dL (0-150) Cholesterol Level 237 mg/dL (0-200) LDL Cholesterol, Calculated 167 mg/dL (0-100) VLDL Cholesterol, Calculated 39 mg/dL (0-40) Non-HDL Cholesterol Calculated 206 mg/dL (0-129) HDL Cholesterol 31 mg/dL (40-60) Cholesterol/HDL Ratio 7.6 Test 02/25/18 07:38 02/25/18 11:29 02/25/18 17:09 02/25/18 20:17 Glucose (Fingerstick) 108 mg/dL (70-99) 279 mg/dL (70-99) 163 mg/dL (70-99) 265 mg/dL (70-99) Test 02/26/18 05:05 02/26/18 07:44 Sodium Level 142 mmol/L (136-145) Potassium Level 4.6 mmol/L (3.5-5.1) Chloride Level 103 mmol/L (98-107) Carbon Dioxide Level 32 mmol/L (21-32) Anion Gap 7 (6-14) Blood Urea Nitrogen 50 mg/dL (7-20) Creatinine 1.6 mg/dL (0.6-1.0) Estimated GFR (Cockcroft-Gault) 30.9 Glucose Level 115 mg/dL (70-99) Calcium Level 9.7 mg/dL (8.5-10.1) Glucose (Fingerstick) 125 mg/dL (70-99) Laboratory Tests Test 02/25/18 11:29 02/25/18 17:09 02/25/18 20:17 02/26/18 05:05 Glucose (Fingerstick) 279 mg/dL (70-99) 163 mg/dL (70-99) 265 mg/dL (70-99) Sodium Level 142 mmol/L (136-145) Potassium Level 4.6 mmol/L (3.5-5.1) Chloride Level 103 mmol/L (98-107) Carbon Dioxide Level 32 mmol/L (21-32) Anion Gap 7 (6-14) Blood Urea Nitrogen 50 mg/dL (7-20) Creatinine 1.6 mg/dL (0.6-1.0) Estimated GFR (Cockcroft-Gault) 30.9 Glucose Level 115 mg/dL (70-99) Calcium Level 9.7 mg/dL (8.5-10.1) Test 02/26/18 07:44 Glucose (Fingerstick) 125 mg/dL (70-99) Medications Current Medications Dextrose (Dextrose 50%-Water Syringe) 12.5 gm 1X ONCE IV Last administered on 02/24/18at 14:42; Start 02/24/18 at 14:45; Stop 02/24/18 at 14:46; Status DC Acetaminophen (Tylenol) 650 mg PRN Q6HRS PRN PO FEVER Last administered on at 15:14; Start 02/24/18 at 16:00 Ondansetron HCl (Zofran) 4 mg PRN Q6HRS PRN IV NAUSEA/VOMITING; Start at 16:00 Morphine Sulfate (Morphine Sulfate) 2 mg PRN Q2HR PRN IV MODERATE TO SEVERE PAIN; Start 02/24/18 at 16:00 Tramadol HCl (Ultram) 50 mg PRN Q6HRS PRN PO MILD TO MODERATE PAIN; Start at 16:00 Docusate Sodium (Colace) 100 mg PRN DAILY PRN PO HARD STOOLS; Start 02/24/18 at 16:00 Labetalol HCl (Normodyne Iv Push) 20 mg PRN Q2HR PRN IVP HYPERTENSION, SEE COMMENTS; Start 02/24/18 at 16:00 Heparin Sodium (Porcine) (Heparin Sodium) 5,000 unit Q8HRS SQ Last administered on 02/25/18at 06:08; Start 02/24/18 at 22:00; Stop 02/25/18 at 09 :33; Status DC Insulin Human Lispro (HumaLOG) 0-9 UNITS TIDWMEALS SQ Last administered on at 17:42; Start 02/24/18 at 17:00 Dextrose (Dextrose 50%-Water Syringe) 12.5 gm PRN Q15MIN PRN IV SEE COMMENTS; Start 02/24/18 at 16:00 Influenza Virus Vaccine (Afluria Trivalent [id number] Syringe) 0.5 ml ONCE ONCE VAX IM Last administered on 02/25/18at 15:19; Start 02/25/18 at 09:00; Stop 02/25/18 at 09:01; Status DC Aspirin (Derek Aspirin) 325 mg DAILY PO Last administered on 02/26/18at 09:00; Start 02/25/18 at 09:00 Calcium/Vitamin D (Oscal D 500mg/ 200uts) 1 tab [id number] PO Last administered on 02/26/18at 09:01; Start 02/25/18 at 08:00 Docusate Sodium (Colace) 100 mg BID PO Last administered on 02/26/18at 09:01; Start 02/25/18 at 09:00 Ferrous Sulfate (Feosol) 325 mg DAILY PO Last administered on 02/26/18at 09:00 ; Start 02/25/18 at 09:00 Acetaminophen/ Hydrocodone Bitart (Lortab 5/325) 1 tab PRN Q12HRS PRN PO PAIN; Start 02/24/18 at 21:15 Metoprolol Tartrate (Lopressor) 625 mg BID PO ; Start 02/25/18 at 09:00; Stop 02/25/18 at 09:00; Status DC Nitroglycerin (Nitrostat) 0.4 mg PRN Q5MIN PRN SL CHEST PAIN; Start 02/24/18 at 21:15 Potassium Chloride (Klor-Con) 10 meq DAILY PO Last administered on 02/26/18at 09:02; Start 02/25/18 at 09:00 Bumetanide (Bumex) 2 mg [id number] PO Last administered on 02/26/18at 09:00; Start 02/25/18 at 09:00 Diltiazem HCl (Cardizem 24hr Cd) 180 mg DAILY PO Last administered on 09:01; Start 02/25/18 at 09:00 Citalopram Hydrobromide (CeleXA) 40 mg DAILY PO Last administered on at 09:00; Start 02/25/18 at 09:00 Losartan Potassium (Cozaar) 50 mg DAILY PO Last administered on 02/26/18 09: 02; Start 02/25/18 at 09:00 Magnesium Hydroxide (Milk Of Magnesia) 2,400 mg PRN DAILY PRN PO CONSTIPATION; Start 02/24/18 at 21:15 Meclizine HCl (Antivert) 12.5 mg BID PO Last administered on 02/26/18 09:02; Start 02/25/18 at 09:00 Metolazone (Zaroxolyn) 5 mg DAILY PO Last administered on 02/26/18 09:01; Start 02/25/18 at 09:00 Multivitamins (Thera M Plus) 1 tab DAILY PO Last administered on 02/26/18 09: 02; Start 02/25/18 at 09:00 Pantoprazole Sodium (Protonix) 40 mg DAILYAC PO Last administered on 09:02; Start 02/25/18 at 07:30 Non-Formulary Medication (Ranitidine Hcl ) 150 mg DAILY PO ; Start 02/25/18 at 09:00; Stop 02/25/18 at 09:00; Status DC Spironolactone (Aldactone) 25 mg DAILY PO Last administered on 02/26/18at 09:01 ; Start 02/25/18 at 09:00 Warfarin Sodium (Coumadin) 5 mg DAILY16 PO Last administered on 02/25/18at 17: 30; Start 02/25/18 at 16:00 Insulin Glargine (Lantus) 15 units QHS SQ ; Start 02/25/18 at 21:00 Warfarin Sodium (Coumadin Per Physician) 1 each PRN DAILY PRN MC SEE COMMENTS Last administered on 02/25/18at 19:18; Start 02/25/18 at 16:00 Ondansetron HCl (Zofran) 4 mg PRN Q6HRS PRN IV NAUSEA/VOMITING; Start at 09:45; Status UNV Ondansetron HCl (Zofran Odt) 4 mg PRN Q6HRS PRN PO NAUSEA/VOMITING; Start at 09:45 Enoxaparin Sodium (Lovenox 100mg Syringe) 90 mg DAILY SQ Last administered on 02/26/18at 10:20; Start 02/25/18 at 10:00 Non-Formulary Medication 34 ea DAILY SQ Last administered on 02/26/18at 10:21; Start 02/25/18 at 09:00 Active Scripts Active Reported Percocet 5-325 Mg Tablet (Oxycodone/Acetaminophen) 1 Each Tablet 1 Tab PO PRN Q6HRS PRN Spironolactone 25 Mg Tablet 25 Mg PO DAILY Potassium Chloride 10 Meq Tablet.er 10 Meq PO DAILY Omeprazole 40 Mg Capsule.dr 40 Mg PO DAILY Warfarin Sodium 5 Mg Tablet 1 Tab PO DAILY Ranitidine Hcl 150 Mg Tablet 150 Mg PO DAILY Amoxicillin 500 Mg Tablet 1 Tab PO TID Calcium 500 + Vit D 200 Caplet (Calcium Carbonate/Vitamin D3) 1 Each Tablet 1 Each PO DAILY NITROGLYCERIN SubLingual (Nitroglycerin) 0.4 Mg Tab.subl 0.4 Mg SL PRN Q5MIN PRN Miralax (Polyethylene Glycol 3350) 17 Gm Powd.pack 1 Packet PO DAILY Milk Of Magnesia (Magnesium Hydroxide) 2,400 Mg/10 Ml Oral.susp 2,400 Mg PO PRN DAILY PRN Escitalopram Oxalate 20 Mg Tablet 1 Tab PO DAILY Doxycycline Hyclate 100 Mg Tablet 1 Tab PO BID Diltiazem 24HR Cd (Diltiazem Hcl) 180 Mg Cap.er.24h 1 Cap PO DAILY Ascorbic Acid 500 Mg Tablet 500 Mg PO Bumetanide 2 Mg Tablet 2 Tab PO BID Multivitamins (Multivitamin) 1 Each Tablet 1 Tab PO DAILY Metolazone 5 Mg Tablet 5 Mg PO DAILY Novolog Flexpen (Insulin Aspart) 100 Unit/1 Ml Insuln.pen 10 Unit SQ TIDAC Tresiba Flextouch U-100 (Insulin Degludec) 100 Unit/1 Ml Insuln.pen 34 Unit SQ DAILYWBKFT Ferrous Sulfate 325 Mg Tablet 1 Tab PO DAILY Dulcolax (Bisacodyl) 10 Mg Supp.rect 10 Mg RC PRN DAILY PRN Aspirin 325 Mg Tablet 1 Tab PO DAILY Metoprolol Tartrate 25 Mg Tablet 25 Tab PO BID Acetaminophen 500 Mg Tablet 500 Mg PO PRN Q8HRS PRN Meclizine Hcl 12.5 Mg Tablet 1 Tab PO BID Hydrocodone-Apap 5-325 (Hydrocodone Bit/Acetaminophen) 1 Each Tablet 1 Tab PO Q12HR PRN Stool Softener (Docusate Sodium) 100 Mg Capsule 100 Mg PO BID Losartan Potassium 100 Mg Tablet 50 Mg PO DAILY Vitals/I & O Vital Sign - Last 24 Hours 02/25/18 02/25/18 02/25/18 02/25/18 11:00 15:00 19:00 20:00 Temp 97.4 97.9 97.8 97.4 97.9 97.8 Pulse 71 66 66 Resp 18 16 18 B/P (MAP) 152/61 (91) 136/53 (80) 132/57 (82) Pulse Ox 99 98 100 O2 Delivery Room Air Room Air Room Air Room Air 02/25/18 02/26/18 02/26/18 02/26/18 22:31 03:01 07:40 09:01 Temp 98.2 97.4 98.1 98.2 97.4 98.1 Pulse 60 73 75 75 Resp 18 19 17 B/P (MAP) 137/58 (84) 152/74 (100) 149/75 (99) 149/75 Pulse Ox 96 96 98 O2 Delivery Room Air Nasal Cannula Room Air O2 Flow Rate 2.0 02/26/18 02/26/18 09:02 10:32 Temp 97.6 97.6 Pulse 75 68 Resp 18 B/P (MAP) 149/75 159/59 (92) Pulse Ox 99 O2 Delivery Room Air Intake and Output 02/25/18 02/25/18 02/26/18 15:00 23:00 07:00 Intake Total 1240 ml 540 ml Balance 1240 ml 540 ml JOVANA GARCIA MD Feb 26, 2018 11:00
--- NOTE | 2018-02-26 11:20 | PDOC ---
PROGRESS NOTES Subjective Subjective Patient feeling well, but states she still has feeling of constant chest pressure with occasional non-radiating left sided chest pain without SOB, n/v, or diaphoresis. Objective Objective Vital Signs Date Time Temp Pulse Resp B/P (MAP) Pulse Ox O2 Delivery O2 Flow Rate FiO2 02/26/18 10:32 97.6 68 18 159/59 (92) 99 Room Air 97.6 02/26/18 03:01 2.0 Intake and Output 02/26/18 07:00 Intake Total 1780 ml Balance 1780 ml Intake Oral 1780 ml # Voids 4 Physical Exam Physical Exam No significant change in cardiac exam Assessment Assessment Patient looks stable today feeling much better. Not having any chest discomfort. We discussed the situation and options and that she wants to go home. I agree with discharge today. Plan Plan of Care Echo performed yesterday, revealed LVEF 60%, moderate aortic, mitral, and tricuspid regurgitation, and moderate pulmonary HTN (55mmHg) If the patient is discharged today will follow her as an outpatient. Comment Review of Relevant I have reviewed the following items alejandra (where applicable) has been applied. Labs Laboratory Tests Test 02/24/18 14:19 02/24/18 14:36 02/24/18 16:25 02/24/18 17:13 White Blood Count 10.0 x10^3/uL (4.0-11.0) Red Blood Count 3.67 x10^6/uL (3.50-5.40) Hemoglobin 12.3 g/dL (12.0-15.5) Hematocrit 35.2 % (36.0-47.0) Mean Corpuscular Volume 96 fL (79-100) Mean Corpuscular Hemoglobin 34 pg (25-35) Mean Corpuscular Hemoglobin Concent 35 g/dL (31-37) Red Cell Distribution Width 14.7 % (11.5-14.5) Platelet Count 323 x10^3/uL (140-400) Neutrophils (%) (Auto) 69 % (31-73) Lymphocytes (%) (Auto) 21 % (24-48) Monocytes (%) (Auto) 7 % (0-9) Eosinophils (%) (Auto) 2 % (0-3) Basophils (%) (Auto) 1 % (0-3) Neutrophils # (Auto) 6.9 x10^3uL (1.8-7.7) Lymphocytes # (Auto) 2.1 x10^3/uL (1.0-4.8) Monocytes # (Auto) 0.7 x10^3/uL (0.0-1.1) Eosinophils # (Auto) 0.2 x10^3/uL (0.0-0.7) Basophils # (Auto) 0.1 x10^3/uL (0.0-0.2) Prothrombin Time 14.2 SEC (11.7-14.0) Prothromb Time International Ratio 1.2 (0.8-1.1) Sodium Level 143 mmol/L (136-145) Potassium Level 4.3 mmol/L (3.5-5.1) Chloride Level 103 mmol/L (98-107) Carbon Dioxide Level 32 mmol/L (21-32) Anion Gap 8 (6-14) Blood Urea Nitrogen 64 mg/dL (7-20) Creatinine 2.0 mg/dL (0.6-1.0) Estimated GFR (Cockcroft-Gault) 23.9 BUN/Creatinine Ratio 32 (6-20) Glucose Level 49 mg/dL (70-99) Calcium Level 10.4 mg/dL (8.5-10.1) Total Bilirubin 0.3 mg/dL (0.2-1.0) Aspartate Amino Transf (AST/SGOT) 17 U/L (15-37) Alanine Aminotransferase (ALT/SGPT) 21 U/L (14-59) Alkaline Phosphatase 134 U/L (46-116) Creatine Kinase 34 U/L (26-192) Creatine Kinase MB (Mass) 1.2 ng/mL (0.0-3.6) Creatine Kinase MB Relative Index 3.5 % (0-4) Troponin I Quantitative < 0.017 ng/mL (0.000-0.055) QB-Pki-W-Type Natriuretic Peptide 6486 pg/mL (0-449) Total Protein 7.9 g/dL (6.4-8.2) Albumin 3.1 g/dL (3.4-5.0) Albumin/Globulin Ratio 0.6 (1.0-1.7) Thyroid Stimulating Hormone (TSH) 3.648 uIU/mL (0.358-3.74) Glucose (Fingerstick) 49 mg/dL (70-99) 177 mg/dL (70-99) 220 mg/dL (70-99) Test 02/24/18 18:20 02/24/18 21:40 02/25/18 00:30 02/25/18 03:15 Troponin I Quantitative < 0.017 ng/mL (0.000-0.055) < 0.017 ng/mL (0.000-0.055) Glucose (Fingerstick) 264 mg/dL (70-99) Nasal Screen MRSA (PCR) Negative (Negative) White Blood Count 7.0 x10^3/uL (4.0-11.0) Red Blood Count 3.19 x10^6/uL (3.50-5.40) Hemoglobin 10.7 g/dL (12.0-15.5) Hematocrit 30.5 % (36.0-47.0) Mean Corpuscular Volume 96 fL (79-100) Mean Corpuscular Hemoglobin 34 pg (25-35) Mean Corpuscular Hemoglobin Concent 35 g/dL (31-37) Red Cell Distribution Width 14.4 % (11.5-14.5) Platelet Count 247 x10^3/uL (140-400) Neutrophils (%) (Auto) 65 % (31-73) Lymphocytes (%) (Auto) 23 % (24-48) Monocytes (%) (Auto) 9 % (0-9) Eosinophils (%) (Auto) 3 % (0-3) Basophils (%) (Auto) 0 % (0-3) Neutrophils # (Auto) 4.5 x10^3uL (1.8-7.7) Lymphocytes # (Auto) 1.6 x10^3/uL (1.0-4.8) Monocytes # (Auto) 0.7 x10^3/uL (0.0-1.1) Eosinophils # (Auto) 0.2 x10^3/uL (0.0-0.7) Basophils # (Auto) 0.0 x10^3/uL (0.0-0.2) Prothrombin Time 14.8 SEC (11.7-14.0) Prothromb Time International Ratio 1.2 (0.8-1.1) Sodium Level 143 mmol/L (136-145) Potassium Level 4.5 mmol/L (3.5-5.1) Chloride Level 105 mmol/L (98-107) Carbon Dioxide Level 31 mmol/L (21-32) Anion Gap 7 (6-14) Blood Urea Nitrogen 56 mg/dL (7-20) Creatinine 1.8 mg/dL (0.6-1.0) Estimated GFR (Cockcroft-Gault) 26.9 Glucose Level 140 mg/dL (70-99) Calcium Level 9.5 mg/dL (8.5-10.1) Triglycerides Level 197 mg/dL (0-150) Cholesterol Level 237 mg/dL (0-200) LDL Cholesterol, Calculated 167 mg/dL (0-100) VLDL Cholesterol, Calculated 39 mg/dL (0-40) Non-HDL Cholesterol Calculated 206 mg/dL (0-129) HDL Cholesterol 31 mg/dL (40-60) Cholesterol/HDL Ratio 7.6 Test 02/25/18 07:38 02/25/18 11:29 02/25/18 17:09 02/25/18 20:17 Glucose (Fingerstick) 108 mg/dL (70-99) 279 mg/dL (70-99) 163 mg/dL (70-99) 265 mg/dL (70-99) Test 02/26/18 05:05 02/26/18 07:44 Sodium Level 142 mmol/L (136-145) Potassium Level 4.6 mmol/L (3.5-5.1) Chloride Level 103 mmol/L (98-107) Carbon Dioxide Level 32 mmol/L (21-32) Anion Gap 7 (6-14) Blood Urea Nitrogen 50 mg/dL (7-20) Creatinine 1.6 mg/dL (0.6-1.0) Estimated GFR (Cockcroft-Gault) 30.9 Glucose Level 115 mg/dL (70-99) Calcium Level 9.7 mg/dL (8.5-10.1) Glucose (Fingerstick) 125 mg/dL (70-99) Laboratory Tests Test 02/25/18 11:29 02/25/18 17:09 02/25/18 20:17 02/26/18 05:05 Glucose (Fingerstick) 279 mg/dL (70-99) 163 mg/dL (70-99) 265 mg/dL (70-99) Sodium Level 142 mmol/L (136-145) Potassium Level 4.6 mmol/L (3.5-5.1) Chloride Level 103 mmol/L (98-107) Carbon Dioxide Level 32 mmol/L (21-32) Anion Gap 7 (6-14) Blood Urea Nitrogen 50 mg/dL (7-20) Creatinine 1.6 mg/dL (0.6-1.0) Estimated GFR (Cockcroft-Gault) 30.9 Glucose Level 115 mg/dL (70-99) Calcium Level 9.7 mg/dL (8.5-10.1) Test 02/26/18 07:44 Glucose (Fingerstick) 125 mg/dL (70-99) Medications Current Medications Dextrose (Dextrose 50%-Water Syringe) 12.5 gm 1X ONCE IV Last administered on 02/24/18at 14:42; Start 02/24/18 at 14:45; Stop 02/24/18 at 14:46; Status DC Acetaminophen (Tylenol) 650 mg PRN Q6HRS PRN PO FEVER Last administered on at 15:14; Start 02/24/18 at 16:00 Ondansetron HCl (Zofran) 4 mg PRN Q6HRS PRN IV NAUSEA/VOMITING; Start at 16:00 Morphine Sulfate (Morphine Sulfate) 2 mg PRN Q2HR PRN IV MODERATE TO SEVERE PAIN; Start 02/24/18 at 16:00 Tramadol HCl (Ultram) 50 mg PRN Q6HRS PRN PO MILD TO MODERATE PAIN; Start at 16:00 Docusate Sodium (Colace) 100 mg PRN DAILY PRN PO HARD STOOLS; Start 02/24/18 at 16:00 Labetalol HCl (Normodyne Iv Push) 20 mg PRN Q2HR PRN IVP HYPERTENSION, SEE COMMENTS; Start 02/24/18 at 16:00 Heparin Sodium (Porcine) (Heparin Sodium) 5,000 unit Q8HRS SQ Last administered on 02/25/18at 06:08; Start 02/24/18 at 22:00; Stop 02/25/18 at 09 :33; Status DC Insulin Human Lispro (HumaLOG) 0-9 UNITS TIDWMEALS SQ Last administered on at 17:42; Start 02/24/18 at 17:00 Dextrose (Dextrose 50%-Water Syringe) 12.5 gm PRN Q15MIN PRN IV SEE COMMENTS; Start 02/24/18 at 16:00 Influenza Virus Vaccine (Afluria Trivalent [id number] Syringe) 0.5 ml ONCE ONCE VAX IM Last administered on 02/25/18at 15:19; Start 02/25/18 at 09:00; Stop 02/25/18 at 09:01; Status DC Aspirin (Derek Aspirin) 325 mg DAILY PO Last administered on 02/26/18at 09:00; Start 02/25/18 at 09:00 Calcium/Vitamin D (Oscal D 500mg/ 200uts) 1 tab DAILYWBKFT PO Last administered on 02/26/18at 09:01; Start 02/25/18 at 08:00 Docusate Sodium (Colace) 100 mg BID PO Last administered on 02/26/18 09:01; Start 02/25/18 at 09:00 Ferrous Sulfate (Feosol) 325 mg DAILY PO Last administered on 02/26/18at 09:00 ; Start 02/25/18 at 09:00 Acetaminophen/ Hydrocodone Bitart (Lortab 5/325) 1 tab PRN Q12HRS PRN PO PAIN; Start 02/24/18 at 21:15 Metoprolol Tartrate (Lopressor) 625 mg BID PO ; Start 02/25/18 at 09:00; Stop 02/25/18 at 09:00; Status DC Nitroglycerin (Nitrostat) 0.4 mg PRN Q5MIN PRN SL CHEST PAIN; Start 02/24/18 at 21:15 Potassium Chloride (Klor-Con) 10 meq DAILY PO Last administered on 02/26/18at 09:02; Start 02/25/18 at 09:00 Bumetanide (Bumex) 2 mg BID92 PO Last administered on 02/26/18at 09:00; Start 02/25/18 at 09:00 Diltiazem HCl (Cardizem 24hr Cd) 180 mg DAILY PO Last administered on at 09:01; Start 02/25/18 at 09:00 Citalopram Hydrobromide (CeleXA) 40 mg DAILY PO Last administered on at 09:00; Start 02/25/18 at 09:00 Losartan Potassium (Cozaar) 50 mg DAILY PO Last administered on 02/26/18 09: 02; Start 02/25/18 at 09:00 Magnesium Hydroxide (Milk Of Magnesia) 2,400 mg PRN DAILY PRN PO CONSTIPATION; Start 02/24/18 at 21:15 Meclizine HCl (Antivert) 12.5 mg BID PO Last administered on 02/26/18 09:02; Start 02/25/18 at 09:00 Metolazone (Zaroxolyn) 5 mg DAILY PO Last administered on 02/26/18 09:01; Start 02/25/18 at 09:00 Multivitamins (Thera M Plus) 1 tab DAILY PO Last administered on 02/26/18 09: 02; Start 02/25/18 at 09:00 Pantoprazole Sodium (Protonix) 40 mg DAILYAC PO Last administered on 09:02; Start 02/25/18 at 07:30 Non-Formulary Medication (Ranitidine Hcl ) 150 mg DAILY PO ; Start 02/25/18 at 09:00; Stop 02/25/18 at 09:00; Status DC Spironolactone (Aldactone) 25 mg DAILY PO Last administered on 02/26/18 09:01 ; Start 02/25/18 at 09:00 Warfarin Sodium (Coumadin) 5 mg DAILY16 PO Last administered on 02/25/18at 17: 30; Start 02/25/18 at 16:00 Insulin Glargine (Lantus) 15 units QHS SQ ; Start 02/25/18 at 21:00 Warfarin Sodium (Coumadin Per Physician) 1 each PRN DAILY PRN MC SEE COMMENTS Last administered on 02/25/18at 19:18; Start 02/25/18 at 16:00 Ondansetron HCl (Zofran) 4 mg PRN Q6HRS PRN IV NAUSEA/VOMITING; Start at 09:45; Status UNV Ondansetron HCl (Zofran Odt) 4 mg PRN Q6HRS PRN PO NAUSEA/VOMITING; Start at 09:45 Enoxaparin Sodium (Lovenox 100mg Syringe) 90 mg DAILY SQ Last administered on 02/26/18at 10:20; Start 02/25/18 at 10:00 Non-Formulary Medication 34 ea DAILY SQ Last administered on 02/26/18at 10:21; Start 02/25/18 at 09:00 Active Scripts Active Reported Percocet 5-325 Mg Tablet (Oxycodone/Acetaminophen) 1 Each Tablet 1 Tab PO PRN Q6HRS PRN Spironolactone 25 Mg Tablet 25 Mg PO DAILY Potassium Chloride 10 Meq Tablet.er 10 Meq PO DAILY Omeprazole 40 Mg Capsule.dr 40 Mg PO DAILY Warfarin Sodium 5 Mg Tablet 1 Tab PO DAILY Ranitidine Hcl 150 Mg Tablet 150 Mg PO DAILY Amoxicillin 500 Mg Tablet 1 Tab PO TID Calcium 500 + Vit D 200 Caplet (Calcium Carbonate/Vitamin D3) 1 Each Tablet 1 Each PO DAILY NITROGLYCERIN SubLingual (Nitroglycerin) 0.4 Mg Tab.subl 0.4 Mg SL PRN Q5MIN PRN Miralax (Polyethylene Glycol 3350) 17 Gm Powd.pack 1 Packet PO DAILY Milk Of Magnesia (Magnesium Hydroxide) 2,400 Mg/10 Ml Oral.susp 2,400 Mg PO PRN DAILY PRN Escitalopram Oxalate 20 Mg Tablet 1 Tab PO DAILY Doxycycline Hyclate 100 Mg Tablet 1 Tab PO BID Diltiazem 24HR Cd (Diltiazem Hcl) 180 Mg Cap.er.24h 1 Cap PO DAILY Ascorbic Acid 500 Mg Tablet 500 Mg PO Bumetanide 2 Mg Tablet 2 Tab PO BID Multivitamins (Multivitamin) 1 Each Tablet 1 Tab PO DAILY Metolazone 5 Mg Tablet 5 Mg PO DAILY Novolog Flexpen (Insulin Aspart) 100 Unit/1 Ml Insuln.pen 10 Unit SQ TIDAC Tresiba Flextouch U-100 (Insulin Degludec) 100 Unit/1 Ml Insuln.pen 34 Unit SQ DAILYWBKFT Ferrous Sulfate 325 Mg Tablet 1 Tab PO DAILY Dulcolax (Bisacodyl) 10 Mg Supp.rect 10 Mg RC PRN DAILY PRN Aspirin 325 Mg Tablet 1 Tab PO DAILY Metoprolol Tartrate 25 Mg Tablet 25 Tab PO BID Acetaminophen 500 Mg Tablet 500 Mg PO PRN Q8HRS PRN Meclizine Hcl 12.5 Mg Tablet 1 Tab PO BID Hydrocodone-Apap 5-325 (Hydrocodone Bit/Acetaminophen) 1 Each Tablet 1 Tab PO Q12HR PRN Stool Softener (Docusate Sodium) 100 Mg Capsule 100 Mg PO BID Losartan Potassium 100 Mg Tablet 50 Mg PO DAILY Vitals/I & O Vital Sign - Last 24 Hours 02/25/18 02/25/18 02/25/18 02/25/18 15:00 19:00 20:00 22:31 Temp 97.9 97.8 98.2 97.9 97.8 98.2 Pulse 66 66 60 Resp 16 18 18 B/P (MAP) 136/53 (80) 132/57 (82) 137/58 (84) Pulse Ox 98 100 96 O2 Delivery Room Air Room Air Room Air Room Air 02/26/18 02/26/18 02/26/18 02/26/18 03:01 07:40 09:01 09:02 Temp 97.4 98.1 97.4 98.1 Pulse 73 75 75 75 Resp 19 17 B/P (MAP) 152/74 (100) 149/75 (99) 149/75 149/75 Pulse Ox 96 98 O2 Delivery Nasal Cannula Room Air O2 Flow Rate 2.0 02/26/18 10:32 Temp 97.6 97.6 Pulse 68 Resp 18 B/P (MAP) 159/59 (92) Pulse Ox 99 O2 Delivery Room Air Intake and Output 02/25/18 02/25/18 02/26/18 15:00 23:00 07:00 Intake Total 1240 ml 540 ml Balance 1240 ml 540 ml WILLY GURROLA MD Feb 26, 2018 11:20
--- NOTE | 2018-02-26 11:35 | PDOC ---
Renal-Progress Notes Subjective Notes Notes NO COMPLAINTS, NO SOB History of Present Illness Hx of present illness STABLE Vitals Vitals Vital Signs Date Time Temp Pulse Resp B/P (MAP) Pulse Ox O2 Delivery O2 Flow Rate FiO2 02/26/18 10:32 97.6 68 18 159/59 (92) 99 Room Air 97.6 02/26/18 08:00 2.0 Weight Weight [ ] I.O. Intake and Output Intake and Output 02/26/18 07:00 Intake Total 1780 ml Balance 1780 ml Intake Oral 1780 ml # Voids 4 Labs Labs Laboratory Tests Test 02/25/18 17:09 02/25/18 20:17 02/26/18 05:05 02/26/18 07:44 Glucose (Fingerstick) 163 mg/dL (70-99) 265 mg/dL (70-99) 125 mg/dL (70-99) Sodium Level 142 mmol/L (136-145) Potassium Level 4.6 mmol/L (3.5-5.1) Chloride Level 103 mmol/L (98-107) Carbon Dioxide Level 32 mmol/L (21-32) Anion Gap 7 (6-14) Blood Urea Nitrogen 50 mg/dL (7-20) Creatinine 1.6 mg/dL (0.6-1.0) Estimated GFR (Cockcroft-Gault) 30.9 Glucose Level 115 mg/dL (70-99) Calcium Level 9.7 mg/dL (8.5-10.1) Review of Systems Constitutional: yes: weakness, alert, oriented Ears/Nose/Throat: Yes: no symptom reported Eyes: Yes: no symptom reported Pulmonary: Yes dyspnea Cardiovascular: Yes no symptom reported Gastrointestional: Yes: no symptom reported Genitourinary: Yes: no symptom reported Musculoskeletal: Yes: no symptom reported Skin: Yes no symptom reported Psychiatric/Neurological: Yes: no symptom reported Endocrine: Yes: no symptom reported Physical Exam General Appearance: no apparent distress Skin: warm Respiratory: decreased breath sounds Heart: S1S2 Abdomen: soft, bowel sounds present Genitourinary: bladder flat Extremities: pulses present Neurology: alert Musculoskeletal: Osteoarthritis Assessment Assessment IMP CHEST PAIN HX OF CAD HTN DM II CKD STAGE 3-CR STABLE AT 1.6 PULM HTN PLAN ONGOING CARDIOLOGY EVAL RENAL FXN STABLE HYDRATED IF CATH PLANNED WILL FOLLOW JOSHUA HERNANDEZ MD Feb 26, 2018 11:35
[2018-02-26 14:47] VITALS: BP 133/56
[2018-02-26] MEDS: WARFARIN 5 MG TABLET. PO SCH (18:20)
[2018-02-26 19:00] VITALS: BP 126/47
[2018-02-27] MEDS ORDERED: INSULIN DEGLUDEC 34 UNIT SQ SCH (08:00)
[2018-02-27] MEDS ORDERED: TRESIBA (INSULIN DEGLUDEC) SQ SCH (09:00)
--- NOTE | 2018-03-11 14:32 | PDOC3 ---
Discharge Summary Visit Information Date of Admission: Feb 24, 2018 Date of Discharge: Feb 26, 2018 Admitting Diagnosis Comment: chest pain, unstable angina vs. muscular pain with tenderness - reassuring echo h/o CAD with PCI h/o CHF diastolic, stable griffin, vasomotor ckd3 chronic afib on warfarin - sub therapeutic INR dm2 on insulin h/o BCa left lumpectomy GERD HTN h/o Menieres PPM Morbid obesity Final Diagnosis Problems Medical Problems: (1) CAD (coronary artery disease) Status: Acute (2) Chest pain Status: Acute Brief Hospital Course Allergies Allergies Coded Allergies Type Severity Reaction Last Updated Verified Iodinated Contrast- Oral and IV Dye Allergy Severe Anaphylaxis 07/19/17 Yes adhesive tape Allergy Intermediate 07/19/17 Yes I S O L A T I O N *CONTACT* Allergy Unknown 07/19/17 Yes meperidine Adverse Reaction Intermediate Vomiting 07/19/17 Yes Brief Hospital Course Ms. Astorga is a 83 old female known to Dr. Cast, admitted for chest pain. Some cardiac history. A. fib on warfarin. INR 1.2. Okay to DC despite low INR. INR mx c/o Dr. Cast . 2 notes on day of dc NON cardiac Cp?. Discharge Information Condition at Discharge: Improved, Stable Disposition/Orders: D/C to Home Scheduled Aspirin (Aspirin) 325 Mg Tablet, 1 TAB PO DAILY, #30 Ref 5 (Reported) Entered as Reported by: PENNIE MILLER on 12/28/161921 Last Taken: Unknown Dose on 02/24/18899 Last Action: Continued on 02/24 by ALHAJI TONG MD Calcium Carbonate/Vitamin D3 (Calcium 500 + Vit D 200 Caplet) 1 Each Tablet, 1 EACH PO DAILY, (Reported) Entered as Reported by: RAYMOND TINEO on 09/19/172054 Last Taken: Unknown Dose on 02/24/18899 Last Action: Continued on 02/24 by ALHAJI TONG MD Diltiazem Hcl (Diltiazem 24HR Cd) 180 Mg Cap.er.24h, 1 CAP PO DAILY, #30 Ref 5 ( Reported) Entered as Reported by: RAYMOND TINEO on 09/19/172043 Last Taken: Unknown Dose on 02/24/18899 Last Action: Converted on 02/24 by ALHAJI TONG MD Docusate Sodium (Stool Softener) 100 Mg Capsule, 100 MG PO BID, (Reported) Entered as Reported by: JAZZ DELCID on 05/10/132049 Last Taken: Unknown Dose on 02/24/18 Last Action: Continued on 02/24/182114 by ALHAJI TONG MD Escitalopram Oxalate (Escitalopram Oxalate) 20 Mg Tablet, 1 TAB PO DAILY, #30 Ref 5 (Reported) Entered as Reported by: RAYMOND TINEO on 09/19/172043 Last Taken: Unknown Dose on 02/24/18 Last Action: Converted on 02/24/182114 by ALHAJI TONG MD Ferrous Sulfate (Ferrous Sulfate) 325 Mg Tablet, 1 TAB PO DAILY, #30 Ref 3 ( Reported) Entered as Reported by: ARABELLA BUCKNER on 01/04/17 1347 Last Taken: Unknown Dose on 02/24/18 Last Action: Continued on 02/24/182114 by ALHAJI TONG MD Insulin Aspart (Novolog Flexpen) 100 Unit/1 Ml Insuln.pen, 10 UNIT SQ TIDAC, ( Reported) Entered as Reported by: Marie Jimenez on 05/15/17 1444 Last Taken: Unknown Dose on 02/24/18 0900 Last Action: Converted on 02/26 by JOVANA GARCIA Insulin Degludec (Tresiba Flextouch U-100) 100 Unit/1 Ml Insuln.pen, 34 UNIT SQ DAILYWBKFT, (Reported) Entered as Reported by: JAMEEL VALLADARES on 03/12/17 1003 Last Taken: Unknown Dose on 02/24/18 0900 Last Action: Converted on 02/26 by JOVANA GARCIA Losartan Potassium (Losartan Potassium) 100 Mg Tablet, 50 MG PO DAILY, (Reported ) Entered as Reported by: JAZZ DELCID on 05/10/132049 Last Taken: Unknown Dose on 02/24/18 09 Last Action: Converted on 02/24 by ALHAJI OTNG MD Meclizine Hcl (Meclizine Hcl) 12.5 Mg Tablet, 1 TAB PO BID, #60 (Reported) Entered as Reported by: ALHAJI POPE on 01/17/16 0905 Last Taken: Unknown Dose on 02/24/18899 Last Action: Converted on 02/24 by ALHAJI TONG MD Metolazone (Metolazone) 5 Mg Tablet, 5 MG PO DAILY, #30 Ref 0 (Reported) Entered as Reported by: Marie Jimenez on 05/15/17 1447 Last Taken: Unknown Dose on 02/24/18899 Last Action: Converted on 02/24 by ALHAJI TONG MD Metoprolol Tartrate (Metoprolol Tartrate) 25 Mg Tablet, 25 TAB PO BID, #180 Ref 1 (Reported) Entered as Reported by: PEBBLES MENESES on 03/24/16 1403 Last Taken: Unknown Dose on 02/24/18899 Last Action: Continued on 02/24 by ALHAJI TONG MD Multivitamin (Multivitamins) 1 Each Tablet, 1 TAB PO DAILY, #90 Ref 3 (Reported) Entered as Reported by: PARISH HDZ on 06/29/17 1555 Last Taken: Unknown Dose on 02/24/18899 Last Action: Converted on 02/24 by ALHAJI TONG MD Omeprazole (Omeprazole) 40 Mg Capsule.dr, 40 MG PO DAILY, (Reported) Entered as Reported by: HARJIT LYLES on 02/24/181920 Last Taken: Unknown Dose on 02/24/18899 Last Action: Converted on 02/24 by ALHAJI TONG MD Polyethylene Glycol 3350 (Miralax) 17 Gm Powd.pack, 1 PACKET PO DAILY, #30 Ref 3 (Reported) Entered as Reported by: RAYMOND TINEO on 09/19/172054 Last Taken: Unknown Dose on 02/24/18899 Last Action: Converted on 02/26 by JOVANA GARCIA Potassium Chloride (Potassium Chloride) 10 Meq Tablet.er, 10 MEQ PO DAILY, ( Reported) Entered as Reported by: HARJIT LYLES on 02/24/181920 Last Taken: Unknown Dose on 02/24/18899 Last Action: Continued on 02/24 by ALHAJI TONG MD Ranitidine Hcl (Ranitidine Hcl) 150 Mg Tablet, 150 MG PO DAILY, (Reported) Entered as Reported by: RAYMOND TINEO on 09/19/172100 Last Taken: Unknown Dose on 02/24/18899 Last Action: Converted on 02/24 by ALHAJI TONG MD Spironolactone (Spironolactone) 25 Mg Tablet, 25 MG PO DAILY, (Reported) Entered as Reported by: HARJIT LYLES on 02/24/181920 Last Taken: Unknown Dose on 02/24/18899 Last Action: Converted on 02/24 by ALHAJI TONG MD Warfarin Sodium (Warfarin Sodium) 5 Mg Tablet, 1 TAB PO DAILY, #90 Ref 1 ( Reported) Entered as Reported by: EH BURCH on 10/03/17 172 Last Taken: Unknown Dose on 02/24/18 Last Action: Converted on 02/24/182114 by ALHAJI TONG MD Scheduled PRN Acetaminophen (Acetaminophen) 500 Mg Tablet, 500 MG PO PRN Q8HRS PRN for PAIN, ( Reported) Entered as Reported by: JAYLYN MONCADA on 02/16/16 193 Last Taken: Unknown Dose on Unknown Date & Time Last Action: Continued on 02/26/18 1054 by JOVANA GARCIA Bisacodyl (Dulcolax) 10 Mg Supp.rect, 10 MG RC PRN DAILY PRN for CONSTIPATION, Ref 0 (Reported) Entered as Reported by: ARABELLA BUCKNER on 01/04/17 1147 Last Taken: Unknown Dose on Unknown Date & Time Last Action: Continued on 02/26/18 1054 by JOVANA GARCIA Hydrocodone Bit/Acetaminophen (Hydrocodone-Apap 5-325 ) 1 Each Tablet, 1 TAB PO Q12HR PRN for PAIN, Ref 0 (Reported) Entered as Reported by: ALHAJI POPE on 01/17/16 0905 Last Taken: Unknown Dose on Unknown Date & Time Last Action: Continued on 02/24/182114 by ALHAJI TONG MD Magnesium Hydroxide (Milk Of Magnesia) 2,400 Mg/10 Ml Oral.susp, 2,400 MG PO PRN DAILY PRN for CONSTIPATION, (Reported) Entered as Reported by: RAYMOND TINEO on 09/19/172054 Last Taken: Unknown Dose on Unknown Date & Time Last Action: Converted on 02/24/182114 by ALHAJI TONG MD Nitroglycerin (NITROGLYCERIN SubLingual) 0.4 Mg Tab.subl, 0.4 MG SL PRN Q5MIN PRN for CHEST PAIN, (Reported) Entered as Reported by: RAYMOND TINEO on 09/19/172054 Last Taken: Unknown Dose on Unknown Date & Time Last Action: Continued on 02/24/182114 by ALHAJI TONG MD Oxycodone/Apap 5-325 (Percocet 5-325 Mg Tablet) 1 Each Tablet, 1 TAB PO PRN Q6HRS PRN for PAIN, Ref 0 (Reported) Entered as Reported by: HARJIT LYLES on 02/24/181920 Last Taken: Unknown Dose on Unknown Date & Time Last Action: Continued on 02/26/181053 by JOVANA GARCIA Miscellaneous Medications Ascorbic Acid (Ascorbic Acid) 500 Mg Tablet, 500 MG PO, (Reported) Entered as Reported by: PARISH HDZ on 06/29/17 1558 Last Taken: Unknown Dose on 02/24/18 0900 Last Action: Continued on 02/26 1054 by JOVANA MERINO MD Mar 11, 2018 14:32
== END 2018-02-26 20:15 | disposition home or self-care (01) | DRG 302 ==
LOC: ER 13:45 → 5 SOUTH 15:35
PROVIDERS: ADMIT Internal Medicine; ATTEND Internal Medicine
DX: I25.10 Atherosclerotic heart disease of native coronary artery without angina pectoris (principal); N17.0 Acute kidney failure with tubular necrosis; I13.0 Hypertensive heart and chronic kidney disease with heart failure and stage 1 through stage 4 chronic kidney disease, or unspecified chronic kidney disease; I50.30 Unspecified diastolic (congestive) heart failure; K21.9 Gastro-esophageal reflux disease without esophagitis; I48.2 Chronic atrial fibrillation; N18.3 Chronic kidney disease, stage 3 (moderate); E11.22 Type 2 diabetes mellitus with diabetic chronic kidney disease; Z96.659 Presence of unspecified artificial knee joint; E66.01 Morbid (severe) obesity due to excess calories; M19.90 Unspecified osteoarthritis, unspecified site; R79.1 Abnormal coagulation profile; I27.20 Pulmonary hypertension, unspecified; J45.909 Unspecified asthma, uncomplicated; Z83.3 Family history of diabetes mellitus; Z82.49 Family history of ischemic heart disease and other diseases of the circulatory system; Z79.01 Long term (current) use of anticoagulants; Z88.8 Allergy status to other drugs, medicaments and biological substances; Z85.3 Personal history of malignant neoplasm of breast; Z90.710 Acquired absence of both cervix and uterus; Z90.49 Acquired absence of other specified parts of digestive tract; Z95.5 Presence of coronary angioplasty implant and graft; Z91.041 Radiographic dye allergy status; Z79.4 Long term (current) use of insulin; I25.2 Old myocardial infarction; Z68.38 Body mass index [BMI] 38.0-38.9, adult
CPT/HCPCS: 36415; 71045; 74018; 76770; 80048; 80053; 80061; 82553; 82962; 83880; 84443; 84484; 85025; 85610; 87641; 90471; 90756; 93005; 93306; 96374; J1644; J1650; J1815; J7042; J8597; 97116; 97535; 99285-25; Q2035

== ENCOUNTER 2018-08-01 15:55 | Emergency (ER) | payer MEDICARE ==
[~2018-08-01] VITALS: Ht 157.5 cm; Wt 91.2 kg
[~2018-08-01 15:55] MED LIST changes: -AMLO10TA6 PO; +AMLO10TA8 PO; +AMLO5TAB10 PO; -AMLO5TAB7 PO; -BUME1TAB PO; +BUME1TAB3 PO; -BUME2TAB PO; +BUME2TAB3 PO; -DILT240C77 PO; +DILT240C82 PO; -HYDR-2758 PO; +HYDR-2761 PO; +LOSA100T14 PO; -LOSA100T7 PO; +OXYC1TAB15 PO
--- NOTE | 2018-08-01 16:19 | PHYS DOC ---
Past Medical History Past Medical History: A-Fib, CAD, Cancer, CHF, Diabetes-Type II, GERD, Hypertension, OH, Other Additional Past Medical Histor: menieres, breast cancer - L lumpectomy, cellulitis - BLE, (AFSANEH IRWIN MD) Past Surgical History: Appendectomy, Cholecystectomy, Hysterectomy, Knee Replacement, Tonsillectomy, Other Additional Past Surgical Histo: lumpectomy in left breast, 2 CARDIAC STENTS AND 3 BALLOONS (AFSANEH IRWIN MD) Alcohol Use: None Drug Use: None (AFSANEH IRWIN MD) Adult General Chief Complaint Chief Complaint: LACERATION/AVULSION HPI HPI Patient is a 83 year old female patient resident of assisted living home with history of chronic anticoagulation use who brought him by EMS because of a fall and not stop bleeding from right elbow. Patient was on Coumadin and Eliquis that was stopped one week ago because of elevation of INR. Patient states she had frequent falls because her knees giving up on her and had a fall today and landed on bilateral arms and her back without head injury or loss of consciousness this morning. Patient had a small laceration of right elbow that did not stop bleeding and sent to ER for evaluation. Patient is up-to-date with her tetanus immunization. Patient complaining of chronic knee pain without complaining of acute pain. (AFSANEH IRWIN MD) Review of Systems Review of Systems Constitutional: Denies fever or chills [] Eyes: Denies change in visual acuity, redness, or eye pain [] HENT: Denies nasal congestion or sore throat [] Respiratory: Denies cough or shortness of breath [] Cardiovascular: No additional information not addressed in HPI [] GI: Denies abdominal pain, nausea, vomiting, bloody stools or diarrhea [] : Denies dysuria or hematuria [] Musculoskeletal: Denies back pain, reports joint pain [] Integument: Denies rash or skin lesions [] Neurologic: Denies headache, focal weakness or sensory changes [] Endocrine: Denies polyuria or polydipsia [] All other systems were reviewed and found to be within normal limits, except as documented in this note. (AFSANEH IRWIN MD) Allergies Allergies Allergies Coded Allergies Type Severity Reaction Last Updated Verified Iodinated Contrast- Oral and IV Dye Allergy Severe Anaphylaxis 07/19/17 Yes adhesive tape Allergy Intermediate 07/19/17 Yes I S O L A T I O N *CONTACT* Allergy Unknown 07/19/17 Yes meperidine Adverse Reaction Intermediate Vomiting 07/19/17 Yes (TERESA CHUNG DO) Physical Exam Physical Exam Constitutional: Well developed, well nourished, mild distress, non-toxic appearance. [] HENT: Normocephalic, atraumatic Eyes: PERRLA, EOMI, conjunctiva normal, no discharge. [] Neck: Normal range of motion, no tenderness, supple, no stridor. [] Cardiovascular: Irregularly irregular, no murmur [] Lungs & Thorax: Bilateral breath sounds clear to auscultation [] Abdomen: Bowel sounds normal, soft, no tenderness, no masses, no pulsatile masses. [] Skin: Warm, dry, no erythema, no rash multiple upper and lower extremity ecchymosis. [] Back: No tenderness, no CVA tenderness. [] Extremities: Right elbow with a small wound with mild bleeding that stopped with applying Tegaderm dressing, no tenderness, no cyanosis, no clubbing, ROM intact, no edema. [] Neurologic: Alert and oriented X 3, normal motor function, normal sensory function, no focal deficits noted. [] Psychologic: Affect normal, judgement normal, mood normal. [] (AFSANEH IRWIN MD) Physical Exam Constitutional: Well developed, well nourished HENT: Normocephalic, atraumatic Lungs & Thorax: No distress Skin: Warm, dry, multiple scattered caridad of ecchymosis at varius stages of healing Extremities: Right elbow with wound recently repaired with steri-strips [] Neurologic: Alert and oriented X 3, normal motor function, normal sensory function, no focal deficits noted. [] (TERESA CHUNG DO) Current Patient Data Vital Signs Vital Signs Date Time Temp Pulse Resp B/P (MAP) Pulse Ox O2 Delivery O2 Flow Rate FiO2 08/01/18 19:30 78 20 181/74 (109) 98 Room Air 08/01/18 15:55 98.3 98.3 (TERESA CHUNG DO) Lab Values Laboratory Tests Test 08/01/18 16:03 08/01/18 17:08 08/01/18 18:43 Prothrombin Time 33.3 SEC (11.7-14.0) H Prothrombin Time INR 3.3 (0.8-1.1) H PTT 50 SEC (24-38) H Sodium Level 136 mmol/L (136-145) Potassium Level 4.9 mmol/L (3.5-5.1) Chloride Level 98 mmol/L (98-107) Carbon Dioxide Level 24 mmol/L (21-32) Anion Gap 14 (6-14) Blood Urea Nitrogen 69 mg/dL (7-20) H Creatinine 2.2 mg/dL (0.6-1.0) H Estimated GFR (Cockcroft-Gault) 21.4 BUN/Creatinine Ratio 31 (6-20) H Glucose Level 334 mg/dL (70-99) H Calcium Level 9.8 mg/dL (8.5-10.1) Magnesium Level 1.9 mg/dL (1.8-2.4) Total Bilirubin 0.2 mg/dL (0.2-1.0) Aspartate Amino Transferase (AST) 11 U/L (15-37) L Alanine Aminotransferase (ALT) 17 U/L (14-59) Alkaline Phosphatase 120 U/L (46-116) H Creatine Kinase 39 U/L (26-192) Troponin I Quantitative < 0.017 ng/mL (0.000-0.055) EK-Gnf-N-Type Natriuretic Peptide 13160 pg/mL (0-449) H Total Protein 7.6 g/dL (6.4-8.2) Albumin 3.0 g/dL (3.4-5.0) L Albumin/Globulin Ratio 0.7 (1.0-1.7) L White Blood Count 11.5 x10^3/uL (4.0-11.0) H Red Blood Count 3.64 x10^6/uL (3.50-5.40) Hemoglobin 11.5 g/dL (12.0-15.5) L Hematocrit 35.3 % (36.0-47.0) L Mean Corpuscular Volume 97 fL (79-100) Mean Corpuscular Hemoglobin 32 pg (25-35) Mean Corpuscular Hemoglobin Concent 33 g/dL (31-37) Red Cell Distribution Width 15.0 % (11.5-14.5) H Platelet Count 350 x10^3/uL (140-400) Neutrophils (%) (Auto) 82 % (31-73) H Lymphocytes (%) (Auto) 10 % (24-48) L Monocytes (%) (Auto) 8 % (0-9) Eosinophils (%) (Auto) 0 % (0-3) Basophils (%) (Auto) 0 % (0-3) Neutrophils # (Auto) 9.5 x10^3uL (1.8-7.7) H Lymphocytes # (Auto) 1.1 x10^3/uL (1.0-4.8) Monocytes # (Auto) 0.9 x10^3/uL (0.0-1.1) Eosinophils # (Auto) 0.0 x10^3/uL (0.0-0.7) Basophils # (Auto) 0.0 x10^3/uL (0.0-0.2) Urine Collection Type U cath Urine Color Yellow Urine Clarity Clear Urine pH 6.0 Urine Specific [place] 1.010 Urine Protein Negative mg/dL (NEG-TRACE) Urine Glucose (UA) Negative mg/dL (NEG) Urine Ketones (Stick) Negative mg/dL (NEG) Urine Blood Negative (NEG) Urine Nitrite Negative (NEG) Urine Bilirubin Negative (NEG) Urine Urobilinogen Dipstick 0.2 mg/dL (0.2 mg/dL) Urine Leukocyte Esterase Negative (NEG) Urine RBC 0 /HPF (0-2) Urine WBC Occ /HPF (0-4) Urine Squamous Epithelial Cells Occ /LPF Urine Bacteria 0 /HPF (0-FEW) Urine Hyaline Casts Few /HPF Laboratory Tests 08/01/18 17:08 Laboratory Tests 08/01/18 16:03 (TERESA CHUNG DO) Lab Values Laboratory Tests Test 08/01/18 16:03 08/01/18 17:08 Prothrombin Time 33.3 SEC (11.7-14.0) H Prothrombin Time INR 3.3 (0.8-1.1) H PTT 50 SEC (24-38) H Sodium Level 136 mmol/L (136-145) Potassium Level 4.9 mmol/L (3.5-5.1) Chloride Level 98 mmol/L (98-107) Carbon Dioxide Level 24 mmol/L (21-32) Anion Gap 14 (6-14) Blood Urea Nitrogen 69 mg/dL (7-20) H Creatinine 2.2 mg/dL (0.6-1.0) H Estimated GFR (Cockcroft-Gault) 21.4 BUN/Creatinine Ratio 31 (6-20) H Glucose Level 334 mg/dL (70-99) H Calcium Level 9.8 mg/dL (8.5-10.1) Magnesium Level 1.9 mg/dL (1.8-2.4) Total Bilirubin 0.2 mg/dL (0.2-1.0) Aspartate Amino Transferase (AST) 11 U/L (15-37) L Alanine Aminotransferase (ALT) 17 U/L (14-59) Alkaline Phosphatase 120 U/L (46-116) H Creatine Kinase 39 U/L (26-192) Troponin I Quantitative < 0.017 ng/mL (0.000-0.055) PT-Apc-Q-Type Natriuretic Peptide 00340 pg/mL (0-449) H Total Protein 7.6 g/dL (6.4-8.2) Albumin 3.0 g/dL (3.4-5.0) L Albumin/Globulin Ratio 0.7 (1.0-1.7) L White Blood Count 11.5 x10^3/uL (4.0-11.0) H Red Blood Count 3.64 x10^6/uL (3.50-5.40) Hemoglobin 11.5 g/dL (12.0-15.5) L Hematocrit 35.3 % (36.0-47.0) L Mean Corpuscular Volume 97 fL (79-100) Mean Corpuscular Hemoglobin 32 pg (25-35) Mean Corpuscular Hemoglobin Concent 33 g/dL (31-37) Red Cell Distribution Width 15.0 % (11.5-14.5) H Platelet Count 350 x10^3/uL (140-400) Neutrophils (%) (Auto) 82 % (31-73) H Lymphocytes (%) (Auto) 10 % (24-48) L Monocytes (%) (Auto) 8 % (0-9) Eosinophils (%) (Auto) 0 % (0-3) Basophils (%) (Auto) 0 % (0-3) Neutrophils # (Auto) 9.5 x10^3uL (1.8-7.7) H Lymphocytes # (Auto) 1.1 x10^3/uL (1.0-4.8) Monocytes # (Auto) 0.9 x10^3/uL (0.0-1.1) Eosinophils # (Auto) 0.0 x10^3/uL (0.0-0.7) Basophils # (Auto) 0.0 x10^3/uL (0.0-0.2) Laboratory Tests 08/01/18 17:08 Laboratory Tests 08/01/18 16:03 (AFSANEH IRWIN MD) EKG EKG EKG interpreted by me. EKG at 1605 showed atrial fibrillation at rate of 75, left axis deviation, ventricular fascicular block, incomplete right bundle branch block, LVH, no acute ST-T wave abnormalities. (AFSANEH IRWIN MD) Radiology/Procedures Radiology/Procedures [] (AFSANEH IRWIN MD) Radiology/Procedures PROCEDURE: ELBOW RIGHT 3V EXAM: 3 views right elbow DATE: 08/01/2018 4:45 PM INDICATION: ER PATIENT. TRAUMA FALL TODAY. RIGHT ELBOW PAIN. SKIN TEAR TO ROSS. COMPARISON: No Prior FINDINGS: Mild to moderate right elbow joint effusion. Decreased bone mineral density. Subchondral lucency in the capitellum suspicious for nondisplaced fracture. Dorsal soft tissue swelling/irregularity, consistent with history of laceration. Atherosclerotic vascular calcifications are seen. IMPRESSION: 1. Right elbow joint effusion with suspected nondisplaced capitellar fracture. 2. Dorsal soft tissue swelling/irregularity, consistent with provided history of laceration Electronically signed by: Cristhian Sterling MD (08/01/2018 5:15 PM) [facility] CT UPPR EXTREMTY WO CONTRST RT PROCEDURE: PELVIS EXAM: AP pelvis DATE: 08/01/2018 4:52 PM INDICATION: ER PATIENT TRAUMA FALL TODAY. BACKWARDS FALL PAIN IN THE PELVIS. COMPARISON: Prior CT 12/31/2016 FINDINGS: No evidence of acute fracture or dislocation. Decreased bone mineral density. Iliac crest, initial tuberosity and trochanteric enthesopathy. Atherosclerotic vascular calcifications are seen. Lower lumbar spine degenerative changes are seen. Apparent right iliac wing sclerotic focus measures approximately 1.6 cm No pubic symphysis or SI joint diastases. IMPRESSION: 1. No evidence of acute fracture or dislocation. 2. Decreased bone mineral density. 3. Apparent sclerotic focus within the right iliac wing of uncertain clinical significance. This may be from an overlying structure although aggressive or nonaggressive bony lesion may have similar appearance. This was not definitively seen on prior CT 12/31/2016, and can be compared with multiple recent priors if available. Electronically signed by: Cristhian Sterling MD (08/01/2018 5:22 PM) [facility] PROCEDURE: PORTABLE CHEST 1V EXAM: AP View of the chest DATE: 08/01/2018 4:43 PM INDICATION: TRAUMA FALL TODAY. Hx HTN, Afib, CAD, DIABETES, CHF. COMPARISON: 02/24/2018, 09/20/2017 FINDINGS/ IMPRESSION: Moderate cardiomegaly. Atherosclerotic calcifications of the tortuous aorta are seen. Trace bilateral pleural effusions. No lobar consolidation. No pneumothorax. Mild eventration right hemidiaphragm. Advanced left glenohumeral joint osteoarthritis. Electronically signed by: Cristhian Sterling MD (08/01/2018 5:17 PM) [facility] EXAM: CT RIGHT ELBOW DATE: 08/01/2018 5:28 PM COMPARISON: Right elbow radiographs 08/01/2018 INDICATION: Right elbow injury/pain TECHNIQUE: CT of the right elbow was performed without IV contrast. Axial coronal and sagittal reformatted images were generated. PQRS compliance statement - One or more of the following individualized dose reduction techniques were utilized for this study: 1. Automated exposure control 2. Adjustment of the mA and/or kV according to patient size 3. Use of iterative reconstruction technique FINDINGS: The lucency seen to the capitellum on prior radiograph likely from summation artifact from small marginal osteophyte. No discrete fracture is seen within the right elbow. Small right elbow joint effusion. Normal muscle bulk. No significant subcutaneous soft tissue edema. Atherosclerotic vascular calcifications are seen. IMPRESSION: No evidence for acute fracture or dislocation. The abnormality seen on prior radiographs from summation artifact. Electronically signed by: Cristhian Sterling MD (08/01/2018 6:39 PM) [facility] (TERESA CHUNG DO) Course & Med Decision Making Course & Med Decision Making Pertinent Labs and Imaging studies reviewed. (See chart for details) Evaluation of patient in ER showed 83-year-old female patient with a fall at correction and uncontrolled bleeding of right elbow. Patient had INR of 6.6 and Coumadin was stopped last week. Bleeding of right elbow skin tear was controlled with apply Dermabond and Steri-Strip. X-ray of elbow was questionable for possible fracture and CT of elbow is pending. Patient has chronic renal failure, and blood sugar of 334 that was elevated after she had steroid shot yesterday in bilateral shoulders. Patient's care transferred to Dr. Chung at 1800. (AFSANEH IRWIN MD) Course & Med Decision Making 1800- Sign out received from Dr. Irwin for patient with report of fall at home with injury to right elbow. Elbow wound previously repaired. Labs also previously obtained and reviewed. XR with concern for possible fracture. CXR and pelvis XR stable. CT head without acute process. CT of right elbow pending. Patient seen and evaluated by myself. CT elbow without acute fracture. Patient stable for discharge with outpatient follow-up with PCP. Discussed findings and plan with patient and family, who acknowledge understanding and agreement. (TERESA CHUNG DO) Dragon Disclaimer Dragon Disclaimer This electronic medical record was generated, in whole or in part, using a voice recognition dictation system. (AFSANEH IRWIN MD) Splinting Splinting : Location: R elbow Pre-Made Type: CYNTHIA bandage Pre-Proc Neuro Vasc Exam: normal Post-Proc Neuro Vasc Exam: normal, unchanged from pre-exam (TERESA CHUNG DO) Departure Departure Impression: Primary Impression: Fall Additional Impressions: Injury of right elbow Anticoagulant-induced bleeding Chronic renal insufficiency Hyperglycemia Disposition: HOME, SELF-CARE Condition: STABLE Referrals: WILLY GURROLA MD (PCP) Patient Instructions: Contusion, [id number], Elastic Bandage and RICE, Fall Prevention and Home Safety, [id number], Hyperglycemia, [id number] Laceration Repair Lac Repair Indication: Right elbow laceration Procedure: The patient was placed in the appropriate position small right elbow skin tear was repaired with Dermabond and Steri-Strip with well bleeding controlled. Total repaired wound length: 1 cm Other Items: [OTHER ITEMS] The patient tolerated the procedure well Complications:none. (AFSANEH IRWIN MD) Problem Qualifiers Primary Impression: Fall Encounter type: initial encounter Qualified Codes: W19.XXXA - Unspecified fall, initial encounter Additional Impressions: Injury of right elbow Encounter type: initial encounter Qualified Codes: S59.901A - Unspecified injury of right elbow, initial encounter Chronic renal insufficiency Chronic kidney disease stage: stage 4 (severe) Qualified Codes: N18.4 - Chronic kidney disease, stage 4 (severe) AFSANEH IRWIN MD Aug 01, 2018 16:19 TERESA CHUNG DO Aug 01, 2018 19:22
[2018-08-01 16:25] LABS: CALCIUM 9.8 mg/dL (8.5-10.1); CREATININE 2.2 mg/dL (0.6-1.0); GFR 21.4; POTASSIUM 4.9 mmol/L (3.5-5.1)
[2018-08-01 16:30] LABS: PROTHROMBIN TIME PATIENT 33.3 SEC (11.7-14.0)
[2018-08-01 16:32] LABS: ALBUMIN/GLOBULIN RATIO 0.7 (1.0-1.7); MAGNESIUM 1.9 mg/dL (1.8-2.4); TOTAL BILIRUBIN 0.2 mg/dL (0.2-1.0); TOTAL PROTEIN 7.6 g/dL (6.4-8.2)
--- NOTE | 2018-08-01 16:39 | EKG ---
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
--- NOTE | 2018-08-01 16:54 | RAD ---
PQRS Compliance Statement: One or more of the following individualized dose reduction techniques were utilized for this examination: 1. Automated exposure control 2. Adjustment of the mA and/or kV according to patient size 3. Use of iterative reconstruction technique CT HEAD WITHOUT CONTRAST History: MULTIPLE FALLS, ON BLOOD THINNERS Comparison: CT head without contrast, May 10, 2013. Technique: Axial images are obtained of the head from the skull base through the vertex without IV contrast. Findings: No mass-effect, midline shift, extra-axial fluid collection, hemorrhage, or obvious acute infarction is identified. Basilar cisterns are patent. The ventricles and sulci are prominent, consistent with age-related cerebral atrophy. There is supratentorial white matter hypoattenuation. This is a nonspecific finding but is commonly due to chronic small vessel ischemic disease. Bone windows demonstrate no acute calvarial abnormality. The visualized paranasal sinuses are clear. Mastoid air cells are well aerated. IMPRESSION: 1. No acute intracranial abnormality. 2. Age-related cerebral atrophy and supratentorial white matter changes probably due to chronic small vessel ischemic disease. Electronically signed by: Delfin Mclain MD (08/01/2018 4:51 PM) [id number]
--- NOTE | 2018-08-01 17:19 | RAD ---
EXAM: 3 views right elbow DATE: 08/01/2018 4:45 PM INDICATION: ER PATIENT. TRAUMA FALL TODAY. RIGHT ELBOW PAIN. SKIN TEAR TO ROSS. COMPARISON: No Prior FINDINGS: Mild to moderate right elbow joint effusion. Decreased bone mineral density. Subchondral lucency in the capitellum suspicious for nondisplaced fracture. Dorsal soft tissue swelling/irregularity, consistent with history of laceration. Atherosclerotic vascular calcifications are seen. IMPRESSION: 1. Right elbow joint effusion with suspected nondisplaced capitellar fracture. 2. Dorsal soft tissue swelling/irregularity, consistent with provided history of laceration Electronically signed by: Cristhian Sterling MD (08/01/2018 5:15 PM) [facility]
[2018-08-01 17:20] LABS: BASO % 0 % (0-3); EOS % 0 % (0-3); HEMATOCRIT 35.3 % (36.0-47.0); HEMOGLOBIN 11.5 g/dL (12.0-15.5); LYMPH # 1.1 x10^3/uL (1.0-4.8); LYMPH % 10 % (24-48); MEAN CORPUSCULAR HEMOGLOBIN 32 pg (25-35); MEAN CORPUSCULAR HGB CONC 33 g/dL (31-37); MEAN CORPUSCULAR VOLUME 97 fL (79-100); MONO # 0.9 x10^3/uL (0.0-1.1); MONO % 8 % (0-9); NEUT # 9.5 x10^3uL (1.8-7.7); NEUT % 82 % (31-73); PLATELET COUNT 350 x10^3/uL (140-400); RED BLOOD COUNT 3.64 x10^6/uL (3.50-5.40); WHITE BLOOD COUNT 11.5 x10^3/uL (4.0-11.0)
--- NOTE | 2018-08-01 17:20 | RAD ---
EXAM: AP View of the chest DATE: 08/01/2018 4:43 PM INDICATION: TRAUMA FALL TODAY. Hx HTN, Afib, CAD, DIABETES, CHF. COMPARISON: 02/24/2018, 09/20/2017 FINDINGS/ IMPRESSION: Moderate cardiomegaly. Atherosclerotic calcifications of the tortuous aorta are seen. Trace bilateral pleural effusions. No lobar consolidation. No pneumothorax. Mild eventration right hemidiaphragm. Advanced left glenohumeral joint osteoarthritis. Electronically signed by: Cristhian Sterling MD (08/01/2018 5:17 PM) [employer]
--- NOTE | 2018-08-01 17:25 | RAD ---
EXAM: AP pelvis DATE: 08/01/2018 4:52 PM INDICATION: ER PATIENT TRAUMA FALL TODAY. BACKWARDS FALL PAIN IN THE PELVIS. COMPARISON: Prior CT 12/31/2016 FINDINGS: No evidence of acute fracture or dislocation. Decreased bone mineral density. Iliac crest, initial tuberosity and trochanteric enthesopathy. Atherosclerotic vascular calcifications are seen. Lower lumbar spine degenerative changes are seen. Apparent right iliac wing sclerotic focus measures approximately 1.6 cm No pubic symphysis or SI joint diastases. IMPRESSION: 1. No evidence of acute fracture or dislocation. 2. Decreased bone mineral density. 3. Apparent sclerotic focus within the right iliac wing of uncertain clinical significance. This may be from an overlying structure although aggressive or nonaggressive bony lesion may have similar appearance. This was not definitively seen on prior CT 12/31/2016, and can be compared with multiple recent priors if available. Electronically signed by: Cristhian Sterling MD (08/01/2018 5:22 PM) [facility]
--- NOTE | 2018-08-01 18:42 | RAD ---
EXAM: CT RIGHT ELBOW DATE: 08/01/2018 5:28 PM COMPARISON: Right elbow radiographs 08/01/2018 INDICATION: Right elbow injury/pain TECHNIQUE: CT of the right elbow was performed without IV contrast. Axial coronal and sagittal reformatted images were generated. PQRS compliance statement - One or more of the following individualized dose reduction techniques were utilized for this study: 1. Automated exposure control 2. Adjustment of the mA and/or kV according to patient size 3. Use of iterative reconstruction technique FINDINGS: The lucency seen to the capitellum on prior radiograph likely from summation artifact from small marginal osteophyte. No discrete fracture is seen within the right elbow. Small right elbow joint effusion. Normal muscle bulk. No significant subcutaneous soft tissue edema. Atherosclerotic vascular calcifications are seen. IMPRESSION: No evidence for acute fracture or dislocation. The abnormality seen on prior radiographs from summation artifact. Electronically signed by: Cristhian Sterling MD (08/01/2018 6:39 PM) [facility]
[2018-08-01 18:53] LABS: BILIRUBIN,URINE NEGATIVE (NEG); CLARITY,URINE CLEAR; COLOR,URINE YELLOW; NITRITE,URINE NEGATIVE (NEG); PROTEIN,URINE NEGATIVE (NEG-TRACE); UROBILINOGEN,URINE 0.2 mg/dL (0.2 mg/dL)
[2018-08-01 19:04] LABS: BACTERIA,URINE 0 /HPF (0-FEW); HYALINE CASTS, URINE FEW /HPF; RBC,URINE 0 /HPF (0-2); SQUAMOUS EPITHELIAL CELL,UR OCC /LPF; WBC,URINE OCC /HPF (0-4)
[2018-08-01 19:30] VITALS: BP 181/74
== END 2018-08-01 19:35 | disposition home or self-care (01) ==
LOC: ER 15:55
DX: S51.011A Laceration without foreign body of right elbow, initial encounter (principal); S80.12XA Contusion of left lower leg, initial encounter; S80.11XA Contusion of right lower leg, initial encounter; S40.022A Contusion of left upper arm, initial encounter; S40.021A Contusion of right upper arm, initial encounter; G89.29 Other chronic pain; M25.561 Pain in right knee; M25.562 Pain in left knee; R10.2 Pelvic and perineal pain; M19.012 Primary osteoarthritis, left shoulder; G31.9 Degenerative disease of nervous system, unspecified; I48.91 Unspecified atrial fibrillation; I25.10 Atherosclerotic heart disease of native coronary artery without angina pectoris; K21.9 Gastro-esophageal reflux disease without esophagitis; I25.2 Old myocardial infarction; E11.9 Type 2 diabetes mellitus without complications; I11.0 Hypertensive heart disease with heart failure; I50.9 Heart failure, unspecified; Z91.041 Radiographic dye allergy status; Z88.1 Allergy status to other antibiotic agents; Z88.8 Allergy status to other drugs, medicaments and biological substances; Z90.49 Acquired absence of other specified parts of digestive tract; Z90.710 Acquired absence of both cervix and uterus; Z90.89 Acquired absence of other organs; Z95.5 Presence of coronary angioplasty implant and graft; Z79.01 Long term (current) use of anticoagulants; W18.39XA Other fall on same level, initial encounter; Y93.89 Activity, other specified; Y92.89 Other specified places as the place of occurrence of the external cause; Y99.8 Other external cause status
CPT/HCPCS: 12001; 36415; 70450; 71045; 72170; 73080; 73200; 80053; 81001; 82550; 83735; 83880; 84484; 85025; 85610; 85730; 93005; 99284; P9612

== ENCOUNTER 2018-08-06 15:29 | Inpatient (IN) | payer MEDICARE ==
[~2018-08-06] VITALS: Ht 167.6 cm; Wt 84.8 kg
[2018-08-06] MEDS ORDERED: IV NORMAL SALINE 500ML BAG 500 ML IV ONE (16:00)
--- NOTE | 2018-08-06 16:00 | PHYS DOC ---
Past Medical History Past Medical History: A-Fib, CAD, Cancer, CHF, Diabetes-Type II, GERD, Hypertension, IN, Other Additional Past Medical Histor: menieres, breast cancer - L lumpectomy, cellulitis - BLE, Past Surgical History: Appendectomy, Cholecystectomy, Hysterectomy, Knee Replacement, Tonsillectomy, Other Additional Past Surgical Histo: lumpectomy in left breast, 2 CARDIAC STENTS AND 3 BALLOONS Alcohol Use: None Drug Use: None Adult General Chief Complaint Chief Complaint: ALTERED MENTAL STATUS HPI HPI 83-year-old female presents to ER from local care home for change in mental status per her family. No family is present at time of patient's arrival. Patient is alert to self. On exam patient was found to have multiple bruising and she does state she fell but is uncertain as to when or events leading up to fall. Facility paperwork shows patient has DNR. Review of Systems Review of Systems Unable to obtain info with pt's current MS- she does have c/o lt arm/shoulder pain and reports she fell but doesn't know when or events causing fall. Current Medications Current Medications Current Medications Medications (Trade) Dose Ordered Sig/Huyen Start Time Stop Time Status Last Admin Dose Admin Sodium Chloride 500 ml @ 500 mls/hr 1X ONCE 08/06/18 16:00 08/06/18 16:59 DC 08/06/18 16:21 500 MLS/HR Allergies Allergies Allergies Coded Allergies Type Severity Reaction Last Updated Verified Iodinated Contrast- Oral and IV Dye Allergy Severe Anaphylaxis 07/19/17 Yes adhesive tape Allergy Intermediate 07/19/17 Yes meperidine Adverse Reaction Intermediate Vomiting 07/19/17 Yes Physical Exam Physical Exam Constitutional: Well developed, well nourished, no acute distress, non-toxic appearance. Speech is clear HENT: Normocephalic, atraumatic, bilateral external ears normal, oropharynx moist, no oral exudates, nose normal. [] Eyes: 1mm PERRLA, EOMI, no nystagmus, conjunctiva normal, no discharge. [] Neck: Normal range of motion, no tenderness, supple, no stridor. [] Cardiovascular: Heart rate irregular rhythm, no murmur [] Lungs & Thorax: Bilateral breath sounds clear to auscultation. Resp. equal/ nonlabored Abdomen: Bowel sounds normal, soft, no tenderness- bruising to left lower abd- no distention, no masses, no pulsatile masses. [] Skin: Warm, dry, multiple bruises noted on pt's exam in different healing phases - no open wounds Back: No tenderness on palp. of midline spine- no palp. deformity. Ecchymosis mid lumbar and on rt buttock Extremities: Pelvis stable/nontender. Tender on palp. lt lateral shoulder and c/ o increased pain with ROM of lt upper extrem., no cyanosis, no clubbing, no edema. [] Neurologic: Alert and oriented X 2- alert to self/place, normal motor function, normal sensory function, no focal deficits noted. [] Psychologic: No uncontrollable behavior/anxiety Current Patient Data Vital Signs Vital Signs Date Time Temp Pulse Resp B/P (MAP) Pulse Ox O2 Delivery O2 Flow Rate FiO2 08/06/18 18:05 86 31 99 08/06/18 15:30 97.8 139/73 (95) Room Air 97.8 Lab Values Laboratory Tests Test 08/06/18 15:47 08/06/18 16:00 08/06/18 16:08 08/06/18 16:25 Stool Occult Blood Negative (NEG) White Blood Count 11.8 x10^3/uL (4.0-11.0) H Red Blood Count 4.05 x10^6/uL (3.50-5.40) Hemoglobin 13.2 g/dL (12.0-15.5) Hematocrit 39.1 % (36.0-47.0) Mean Corpuscular Volume 96 fL (79-100) Mean Corpuscular Hemoglobin 33 pg (25-35) Mean Corpuscular Hemoglobin Concent 34 g/dL (31-37) Red Cell Distribution Width 15.0 % (11.5-14.5) H Platelet Count 367 x10^3/uL (140-400) Neutrophils (%) (Auto) 74 % (31-73) H Lymphocytes (%) (Auto) 17 % (24-48) L Monocytes (%) (Auto) 7 % (0-9) Eosinophils (%) (Auto) 1 % (0-3) Basophils (%) (Auto) 1 % (0-3) Neutrophils # (Auto) 8.8 x10^3uL (1.8-7.7) H Lymphocytes # (Auto) 1.9 x10^3/uL (1.0-4.8) Monocytes # (Auto) 0.9 x10^3/uL (0.0-1.1) Eosinophils # (Auto) 0.2 x10^3/uL (0.0-0.7) Basophils # (Auto) 0.1 x10^3/uL (0.0-0.2) Sodium Level 140 mmol/L (136-145) Potassium Level 4.5 mmol/L (3.5-5.1) Chloride Level 100 mmol/L (98-107) Carbon Dioxide Level 29 mmol/L (21-32) Anion Gap 11 (6-14) Blood Urea Nitrogen 61 mg/dL (7-20) H Creatinine 1.6 mg/dL (0.6-1.0) H Estimated GFR (Cockcroft-Gault) 30.9 BUN/Creatinine Ratio 38 (6-20) H Glucose Level 99 mg/dL (70-99) Lactic Acid Level 2.1 mmol/L (0.4-2.0) H Calcium Level 10.3 mg/dL (8.5-10.1) H Magnesium Level 2.2 mg/dL (1.8-2.4) Total Bilirubin 0.5 mg/dL (0.2-1.0) Aspartate Amino Transferase (AST) 17 U/L (15-37) Alanine Aminotransferase (ALT) 22 U/L (14-59) Alkaline Phosphatase 107 U/L (46-116) Creatine Kinase 28 U/L (26-192) Creatine Kinase MB (Mass) 1.5 ng/mL (0.0-3.6) Creatine Kinase MB Relative Index % (0-4) Troponin I Quantitative 0.385 ng/mL (0.000-0.055) Total Protein 7.5 g/dL (6.4-8.2) Albumin 2.9 g/dL (3.4-5.0) L Albumin/Globulin Ratio 0.6 (1.0-1.7) L Urine Collection Type U cath Urine Color Yellow Urine Clarity Clear Urine pH 7.5 Urine Specific [place] 1.010 Urine Protein Negative mg/dL (NEG-TRACE) Urine Glucose (UA) Negative mg/dL (NEG) Urine Ketones (Stick) Negative mg/dL (NEG) Urine Blood Negative (NEG) Urine Nitrite Negative (NEG) Urine Bilirubin Negative (NEG) Urine Urobilinogen Dipstick 0.2 mg/dL (0.2 mg/dL) Urine Leukocyte Esterase Negative (NEG) Urine RBC 0 /HPF (0-2) Urine WBC 0 /HPF (0-4) Urine Transitional Epithelial Cells Occ /LPF Urine Bacteria 0 /HPF (0-FEW) Urine Mucus Slight /LPF Influenza Type A Antigen Negative (NEGATIVE) Influenza Type B Antigen Negative (NEGATIVE) Test 08/06/18 16:40 Prothrombin Time 13.6 SEC (11.7-14.0) Prothrombin Time INR 1.1 (0.8-1.1) PTT 22 SEC (24-38) L Laboratory Tests 08/06/18 16:00 Laboratory Tests 08/06/18 16:00 EKG EKG EKG obtained 08/06/18 at [address] Salgado Afib Rate Rate 73 No STEMI Radiology/Procedures Radiology/Procedures PROCEDURE: CT HEAD AND CERVICAL SPINE PQRS Compliance statement: One or more of the following individualized dose reduction techniques were utilized for this examination: 1. Automated exposure control. 2. Adjustment of the mA and/or kV according to patient size. 3. Use of iterative reconstruction technique. Indication:fall- change in MS, PRIOR CT HEAD SENT TECHNIQUE: CT head without IV contrast COMPARISON:08/01/2018 FINDINGS: No pathologic extra-axial or intra-axial fluid collection. Mild diffuse atrophy with ex vacuo dilation of the ventricles. The basal cisterns are within normal limits. No acute intracranial bleed. Mild periventricular low-attenuation of the right matter noted. No focal loss of vila-white differentiation. Orbits are within normal limits. No large scalp hematoma. No acute calvarial fractures. The paranasal sinuses and mastoid air cells are clear. Atherosclerotic plaque is seen in the bilateral cavernous segments of the ICA. IMPRESSION: 1. No acute intracranial bleed or calvarial fracture. 2. Mild to moderate atrophy with white matter changes likely secondary to chronic microvascular ischemic disease. Indication:fall- change in MS, PRIOR CT HEAD SENT TECHNIQUE: CT of the cervical spine without IV contrast with multiplanar reformats. COMPARISON:None FINDINGS: The cervical spine is in normal anatomic alignment. Atlantoaxial joint interval is preserved with mild degenerative changes. No compression deformities. Facet joints are in normal anatomic alignment with multilevel moderate facet arthropathy. Severe intervertebral disc space narrowing with endplate irregularities and anterior bridging osteophyte formation seen at C4-C5, C5-C6 and C6-C7. No acute fractures. Noncontrast appearance of the neck soft tissue is within normal limits. Moderate atherosclerotic disease seen in the right carotid bulb. Clear lung apices. IMPRESSION: 1. No acute fractures. 2. Advanced degenerative disc disease at C4-C7. Multilevel moderate facet arthropathy. Electronically signed by: Jeison Mott DO (08/06/2018 5:09 PM) [facility] DICTATED and SIGNED BY: JEISON MOTT DO DATE: 08/06/18 4691 PROCEDURE: CT LUMBAR SPINE RECONSTRUCTION PQRS Compliance statement: One or more of the following individualized dose reduction techniques were utilized for this examination: 1. Automated exposure control. 2. Adjustment of the mA and/or kV according to patient size. 3. Use of iterative reconstruction technique. Indication:FALL, BACK PAIN, NO PRIORS TECHNIQUE: CT lumbar spine without IV contrast with multiplanar reformats. COMPARISON: CT abdomen pelvis from 12/31/2016 FINDINGS: Lumbar spine is in normal anatomic alignment. There are 5 lumbar type vertebral bodies. Chronic compression deformity seen of the abdomen vertebral body with no retropulsion the spinal canal. No new compression deformity seen. Facet joints are in normal anatomic alignment with multilevel moderate facet arthropathy. Bilateral SI joint osteoarthritis. No acute fractures. L5-S1 moderate degenerative disc disease seen. IMPRESSION: 1. No acute fractures or compression deformities. 2. Chronic L2 compression deformity dating back to December 2016. Fibula multilevel facet arthropathy with moderate to advanced degenerative disc disease at L4-L5. Electronically signed by: Jeison Mott DO (08/06/2018 5:20 PM) [facility] DICTATED and SIGNED BY: JEISON MOTT DO DATE: 08/06/18 5940 PROCEDURE: CHEST AP ONLY EXAM: CHEST 1 VIEW History: Fall COMPARISON: 07/24/2018 TECHNIQUE: Single portable radiograph of the chest FINDINGS: The cardiac silhouette is unremarkable. Mild prominent appearing bilateral interstitial lung markings likely chronic interstitial changes similar to prior exam. The costophrenic sulci are clear and well demarcated. IMPRESSION: No radiographic evidence of an acute cardiopulmonary process. Electronically signed by: Henrry Lewis MD (08/06/2018 5:43 PM) [place] [id number] DICTATED and SIGNED BY: HENRRY LEWIS MD DATE: 08/06/181742 PROCEDURE: SHOULDER 2+V LEFT Examination: Single views of the left shoulder and 2 views of the left humerus HISTORY: History of fall, pain COMPARISON: 03/18/2016 FINDINGS: Severe joint space loss identified in the glenohumeral joint. There is mild superior translation of the humerus head in relation to glenoid. Moderate degenerative changes acromioclavicular joint. No obvious fracture identified. IMPRESSION: 1. Severe degenerative changes left glenohumeral joint. There is superior translation the humerus in relation to glenoid probably due to chronic rotator cuff tear. Electronically signed by: Henrry Lewis MD (08/06/2018 5:42 PM) [facility] DICTATED and SIGNED BY: HENRRY LEWIS MD DATE: 08/06/181741 PROCEDURE: CT ABDOMEN PELVIS WO CONTRAST PQRS Compliance statement: One or more of the following individualized dose reduction techniques were utilized for this examination: 1. Automated exposure control. 2. Adjustment of the mA and/or kV according to patient size. 3. Use of iterative reconstruction technique. Indication:RECENT FALL, ABD PAIN, NO PRIOR TECHNIQUE: CT abdomen and pelvis without IV contrast with multiplanar reformats. COMPARISON: None FINDINGS: Limited evaluation of solid abdominal and pelvic organs due to lack of IV contrast. Heart is moderately enlarged in size. No pericardial or pleural effusion. 3 mm nodule in the right middle lobe. Otherwise, clear lung bases. Noncontrast appearance of the liver, spleen, pancreas, adrenals within normal limits. Status post cholecystectomy. No nephrolithiasis or hydronephrosis. No free pelvic fluid or ascites. Status post hysterectomy. Moderate diffuse atherosclerotic disease of the abdominal aorta and its major branches. No enlarged retroperitoneal or pelvic adenopathy. No bowel obstruction. No pneumoperitoneum. Small sliding hiatal hernia. Urinary bladder is within normal limits. Compression deformity seen of the L2 vertebral body with no retropulsion the spinal canal. This is stable from previous exam from 2017. IMPRESSION: Limited evaluation of solid abdominal and pelvic organs due to lack of IV contrast. 1. No acute findings. Please see above for incidental findings. Electronically signed by: Jeison Mott DO (08/06/2018 5:14 PM) [facility] DICTATED and SIGNED BY: JEISON MOTT DO DATE: 08/06/18 1714 Course & Med Decision Making Course & Med Decision Making Pertinent Labs and Imaging studies reviewed. (See chart for details) 1725: Patient's daughters arrived to bedside and provided further insight into patient's case. They report patient is typically independent and requires minimal assist with ADLs. They report patient is typically alert and oriented 3 with no neuro deficits. The report today around 2:30 PM patient's granddaughter received a phone call from her and she was not making sense on the phone. When the granddaughter arrived to the patient's room she found patient to be alert but having difficulty with articulating thoughts and words which is not norm for pt. They are uncertain of if patient was seen by staff this morning. One of the daughters is calling the facility to further verify information. Pt's dgtr reports pt has been having ongoing bilat. shoulder pain and did recently get injections in them for pain. 1740: Per patient's daughter facility is reporting that patient was last seen late last night and was normal limits on mentation but had not seen patient today. So uncertain as to last known normal limits mental status. Labs/EKG and imaging obtained. Head/Cspine CT neg. for acute findings. UA neg. for infection. EKG with no acute ST elevation/STEMI- Afib rhythm with hx of and troponin was 0.385. With last result in pt's records <0.017 which was on . Pt has denied any CP/SOA. CK NL at 28. INR 1.1. Flu swab neg. WBCs 11.8 with lactic acid at 2.1 with no source of infection as chest xray/UA with no acute findings. Pt was given IV flds 500cc NS. Neg fecal occult. Pt's case was discussed with Dr. Salgado who went to bedside to bhavna. pt and talk with family. With pt's change in MS will admit to hospitalist for further care and monitoring. Pt during ER visit per family had intermittent moments where she was A&O to her normal MS and then at other times seemed to not recognize family at bedside and was more confused. Will consult neurology with admit orders. Will also consult cardiology and repeat serial troponin. Dragon Disclaimer Dragon Disclaimer This electronic medical record was generated, in whole or in part, using a voice recognition dictation system. Departure Departure Impression: Primary Impression: Change in mental status Disposition: ADMITTED INPATIENT Admitting Physician: Other (Dr. Parra) Condition: STABLE Referrals: PATRICIA EID MD (PCP) Scripts Lorazepam (LORAZEPAM INTENSOL) 2 Mg/1 Ml Oral.conc 2 MG SL PRN Q6HRS PRN for ANXIETY / AGITATION MDD 1, #30 MISC Prov: JOVANA GARCIA MD 08/16/18 Morphine Sulfate (MORPHINE SULFATE) 100 Mg/5 Ml Solution 5 MG SL PRN Q3HRS PRN for PAIN MDD 1, #30 MISC Prov: JOVANA GARCIA MD 08/16/18 MYRTLE FRIEDMAN APRN Aug 06, 2018 16:00
[2018-08-06 16:16] LABS: BASO # 0.1 x10^3/uL (0.0-0.2); BASO % 1 % (0-3); EOS # 0.2 x10^3/uL (0.0-0.7); EOS % 1 % (0-3); HEMATOCRIT 39.1 % (36.0-47.0); HEMOGLOBIN 13.2 g/dL (12.0-15.5); LYMPH # 1.9 x10^3/uL (1.0-4.8); LYMPH % 17 % (24-48); MEAN CORPUSCULAR HEMOGLOBIN 33 pg (25-35); MEAN CORPUSCULAR HGB CONC 34 g/dL (31-37); MEAN CORPUSCULAR VOLUME 96 fL (79-100); MONO # 0.9 x10^3/uL (0.0-1.1); MONO % 7 % (0-9); NEUT # 8.8 x10^3uL (1.8-7.7); NEUT % 74 % (31-73); PLATELET COUNT 367 x10^3/uL (140-400); RED BLOOD COUNT 4.05 x10^6/uL (3.50-5.40); WHITE BLOOD COUNT 11.8 x10^3/uL (4.0-11.0)
[2018-08-06 16:17] LABS: FECAL OB PT NEGATIVE (NEG)
--- NOTE | 2018-08-06 16:19 | EKG ---
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
[2018-08-06 16:20] LABS: BILIRUBIN,URINE NEGATIVE (NEG); CLARITY,URINE CLEAR; COLOR,URINE YELLOW; NITRITE,URINE NEGATIVE (NEG); PH,URINE 7.5; PROTEIN,URINE NEGATIVE (NEG-TRACE); UROBILINOGEN,URINE 0.2 mg/dL (0.2 mg/dL)
[2018-08-06 16:31] LABS: BACTERIA,URINE 0 /HPF (0-FEW); RBC,URINE 0 /HPF (0-2); WBC,URINE 0 /HPF (0-4)
[2018-08-06 16:38] LABS: CALCIUM 10.3 mg/dL (8.5-10.1); CREATININE 1.6 mg/dL (0.6-1.0); GFR 30.9; POTASSIUM 4.5 mmol/L (3.5-5.1)
[2018-08-06 16:51] LABS: ALBUMIN 2.9 g/dL (3.4-5.0); ALBUMIN/GLOBULIN RATIO 0.6 (1.0-1.7); CREATINE KINASE 28 U/L (26-192); MAGNESIUM 2.2 mg/dL (1.8-2.4); TOTAL BILIRUBIN 0.5 mg/dL (0.2-1.0); TOTAL PROTEIN 7.5 g/dL (6.4-8.2)
[2018-08-06 16:55] LABS: INFLUENZA A PATIENT NEGATIVE (NEGATIVE); INFLUENZA B PATIENT NEGATIVE (NEGATIVE)
[2018-08-06 16:58] LABS: PROTHROMBIN TIME PATIENT 13.6 SEC (11.7-14.0)
--- NOTE | 2018-08-06 17:13 | RAD ---
PQRS Compliance statement: One or more of the following individualized dose reduction techniques were utilized for this examination: 1. Automated exposure control. 2. Adjustment of the mA and/or kV according to patient size. 3. Use of iterative reconstruction technique. Indication:fall- change in MS, PRIOR CT HEAD SENT TECHNIQUE: CT head without IV contrast COMPARISON:08/01/2018 FINDINGS: No pathologic extra-axial or intra-axial fluid collection. Mild diffuse atrophy with ex vacuo dilation of the ventricles. The basal cisterns are within normal limits. No acute intracranial bleed. Mild periventricular low-attenuation of the right matter noted. No focal loss of vila-white differentiation. Orbits are within normal limits. No large scalp hematoma. No acute calvarial fractures. The paranasal sinuses and mastoid air cells are clear. Atherosclerotic plaque is seen in the bilateral cavernous segments of the ICA. IMPRESSION: 1. No acute intracranial bleed or calvarial fracture. 2. Mild to moderate atrophy with white matter changes likely secondary to chronic microvascular ischemic disease. Indication:fall- change in MS, PRIOR CT HEAD SENT TECHNIQUE: CT of the cervical spine without IV contrast with multiplanar reformats. COMPARISON:None FINDINGS: The cervical spine is in normal anatomic alignment. Atlantoaxial joint interval is preserved with mild degenerative changes. No compression deformities. Facet joints are in normal anatomic alignment with multilevel moderate facet arthropathy. Severe intervertebral disc space narrowing with endplate irregularities and anterior bridging osteophyte formation seen at C4-C5, C5-C6 and C6-C7. No acute fractures. Noncontrast appearance of the neck soft tissue is within normal limits. Moderate atherosclerotic disease seen in the right carotid bulb. Clear lung apices. IMPRESSION: 1. No acute fractures. 2. Advanced degenerative disc disease at C4-C7. Multilevel moderate facet arthropathy. Electronically signed by: Jeison Mott DO (08/06/2018 5:09 PM) [facility]
--- NOTE | 2018-08-06 17:14 | RAD ---
CT THORACIC SPINE WO CONTRAST Indication: RECENT FALL, BACK PAIN Technique: Noncontrast CT imaging was performed of the thoracic spine, multiplanar reconstruction images submitted. One or more of the following individualized dose reduction techniques were utilized for this examination: 1. Automated exposure control 2. Adjustment of the mA and/or kV according to patient size 3. Use of iterative reconstruction technique. Comparison: None Findings: Thoracic vertebral body stature is overall maintained. There is bone demineralization. No acute thoracic spine fracture is identified by CT. There is wall thickening of the distal esophagus, mild dilatation. Lingula small right upper lobe pulmonary nodules, largest 0.5 cm axial image 41 series 3. There is superior L2 compression deformity as seen on previous 2017 CT abdomen pelvis exam. IMPRESSION: 1. No acute thoracic spine fracture is identified by CT. 2. There is nonspecific wall thickening of the distal esophagus, mild dilatation. 3. There are some small right upper lobe pulmonary nodules with largest about 0.5 cm not fully evaluated. If there are increased risk factors for neoplasm, dedicated chest CT to completely evaluate the lung parenchyma may be beneficial. Regarding the visualized nodules, no additional follow-up is needed if low risk factors for neoplasm, optional 12 month follow-up if increased risk factors as per revised Fleischner guidelines. Electronically signed by: Marino Magallanes MD (08/06/2018 5:11 PM) [facility]
--- NOTE | 2018-08-06 17:17 | RAD ---
PQRS Compliance statement: One or more of the following individualized dose reduction techniques were utilized for this examination: 1. Automated exposure control. 2. Adjustment of the mA and/or kV according to patient size. 3. Use of iterative reconstruction technique. Indication:RECENT FALL, ABD PAIN, NO PRIOR TECHNIQUE: CT abdomen and pelvis without IV contrast with multiplanar reformats. COMPARISON: None FINDINGS: Limited evaluation of solid abdominal and pelvic organs due to lack of IV contrast. Heart is moderately enlarged in size. No pericardial or pleural effusion. 3 mm nodule in the right middle lobe. Otherwise, clear lung bases. Noncontrast appearance of the liver, spleen, pancreas, adrenals within normal limits. Status post cholecystectomy. No nephrolithiasis or hydronephrosis. No free pelvic fluid or ascites. Status post hysterectomy. Moderate diffuse atherosclerotic disease of the abdominal aorta and its major branches. No enlarged retroperitoneal or pelvic adenopathy. No bowel obstruction. No pneumoperitoneum. Small sliding hiatal hernia. Urinary bladder is within normal limits. Compression deformity seen of the L2 vertebral body with no retropulsion the spinal canal. This is stable from previous exam from 2017. IMPRESSION: Limited evaluation of solid abdominal and pelvic organs due to lack of IV contrast. 1. No acute findings. Please see above for incidental findings. Electronically signed by: Jeison Mott DO (08/06/2018 5:14 PM) [facility]
--- NOTE | 2018-08-06 17:23 | RAD ---
PQRS Compliance statement: One or more of the following individualized dose reduction techniques were utilized for this examination: 1. Automated exposure control. 2. Adjustment of the mA and/or kV according to patient size. 3. Use of iterative reconstruction technique. Indication:FALL, BACK PAIN, NO PRIORS TECHNIQUE: CT lumbar spine without IV contrast with multiplanar reformats. COMPARISON: CT abdomen pelvis from 12/31/2016 FINDINGS: Lumbar spine is in normal anatomic alignment. There are 5 lumbar type vertebral bodies. Chronic compression deformity seen of the abdomen vertebral body with no retropulsion the spinal canal. No new compression deformity seen. Facet joints are in normal anatomic alignment with multilevel moderate facet arthropathy. Bilateral SI joint osteoarthritis. No acute fractures. L5-S1 moderate degenerative disc disease seen. IMPRESSION: 1. No acute fractures or compression deformities. 2. Chronic L2 compression deformity dating back to December 2016. Fibula multilevel facet arthropathy with moderate to advanced degenerative disc disease at L4-L5. Electronically signed by: Jeison Mott DO (08/06/2018 5:20 PM) [facility]
--- NOTE | 2018-08-06 17:45 | RAD ---
Examination: Single views of the left shoulder and 2 views of the left humerus HISTORY: History of fall, pain COMPARISON: 03/18/2016 FINDINGS: Severe joint space loss identified in the glenohumeral joint. There is mild superior translation of the humerus head in relation to glenoid. Moderate degenerative changes acromioclavicular joint. No obvious fracture identified. IMPRESSION: 1. Severe degenerative changes left glenohumeral joint. There is superior translation the humerus in relation to glenoid probably due to chronic rotator cuff tear. Electronically signed by: Henrry Lewis MD (08/06/2018 5:42 PM) [id number]
--- NOTE | 2018-08-06 17:46 | RAD ---
EXAM: CHEST 1 VIEW History: Fall COMPARISON: 07/24/2018 TECHNIQUE: Single portable radiograph of the chest FINDINGS: The cardiac silhouette is unremarkable. Mild prominent appearing bilateral interstitial lung markings likely chronic interstitial changes similar to prior exam. The costophrenic sulci are clear and well demarcated. IMPRESSION: No radiographic evidence of an acute cardiopulmonary process. Electronically signed by: Henrry Lewis MD (08/06/2018 5:43 PM) [id number]
[2018-08-06] MEDS ORDERED: ONDANSETRON PF 4 MG/2 ML VIAL. IV PRN (18:15)
[2018-08-06] MEDS ORDERED: NITROGLYCERIN SUBLINGUAL 0.4 MG BOTTLE OF 25. SL PRN (18:15)
[2018-08-06] MEDS ORDERED: MORPHINE SULFATE 2 MG/ML VIAL. IV PRN (18:15)
[2018-08-06] MEDS ORDERED: HYDROcodone/APAP 5/325MG 1 TAB TABLET PO PRN (18:15)
[2018-08-06] MEDS ORDERED: LACTULOSE 20 GM/30 ML SOLUTION. PO PRN (18:15)
[2018-08-06] MEDS ORDERED: MAGNESIUM HYDROXIDE 2,400 MG/30 ML ORAL.SUSP. PO PRN (19:00)
[2018-08-06] MEDS ORDERED: ACETAMINOPHEN 500 MG TABLET PO PRN (19:00)
[2018-08-06] MEDS ORDERED: WARFARIN 5 MG TABLET. PO SCH (19:30)
[2018-08-06] MEDS ORDERED: OMEP40CA5 PO (20:18)
[2018-08-06] MEDS ORDERED: LIDO1ADH44 TP (20:18)
[2018-08-06] MEDS ORDERED: BUME2TAB3 PO (20:18)
[2018-08-06] MEDS ORDERED: ISOS60TA2 PO (20:18)
[2018-08-06] MEDS ORDERED: TROL35.4 TP (20:18)
[2018-08-06] MEDS ORDERED: METHYL SALICYLATE/MENTHOL TOPICAL OINTMENT 29GM TUBE. TP PRN ×2 (20:45)
--- NOTE | 2018-08-06 20:45 | PDOC1 ---
History and Physical Date of Admission Date of Admission 08/06/2018 Identification/Chief Complaint Chief Complaint I cannot talk Problems: (1) TIA (transient ischemic attack) Source Source: Chart review, Patient History of Present Illness History of Present Illness Patient is an 83-year-old female with multiple comorbidities including diabetes and atrial fibrillation was in her usual state of health until the day of her admission when she had the sudden onset of dysarthria. This happened around 2: 30 in the afternoon the patient at the time my evaluation is alert awake oriented in person time place and situation she is right-handed she did not percent motor or sensory deficits. She does seem quite frustrated due to her inability to express her thoughts. The patient was noted to be unable to express herself and EMS was summoned to assess her subsequently being transferred to our emergency department. Patient's evaluation yielded no evidence of acute ischemic changes on her CAT scan. Patient did not percent motor or sensory deficits. She is able to provide me details and denies loss of consciousness no palpitations no chest pain no shortness of breath no loss of consciousness was reported by the patient. The only change to her medication has been stopping warfarin and starting what seems to be Eliquis. She is unable to tell me the name of the medication and seems quite frustrating about it. The patient upon of knowledge seems to be intact her object naming is intact proprioception is intact no motor or sensory deficits were appreciated. The patient is alert awake oriented in person place and situation. When asked about the dates she knows but it's a year 2019 unable to tell me the exact date probably because she is unable to find the right words at this time. When asked about current events and the current president is she becomes very agitated and HER SPEECH BECOMES MUCH MORE CLEAR, as per daughters she is not a big fan of the current president which is quite evident when the question was asked. The only other complaint is headache no blurred vision no dysphagia no odynophagia no palpitations no nausea vomiting abdominal pain no peripheral edema has been reported. Of noticed that the patient is on chronic antibiotic therapy due to a leg infection and what sounds to be a bacteremia that has been followed by Dr. Poe in the outpatient setting. She had 1 episode of loose bowels today but denies abdominal pain fevers and she is not exhibiting signs of toxicity at the present time. Plan of care has been In detail to the patient and the family members at bedside all other concerns were addressed to the best of my abilities Past Medical History Cardiovascular: CAD, CHF, HTN, DE, Valve insufficiency, Pulmonary hypertension , Other Pulmonary: Asthma, Bronchitis GI: GERD, Gastritis Heme/Onc: Cancer Renal/: Chronic renal insuff Endocrine: Diabetes Past Surgical History Past Surgical History: Pacemaker, Other Family History Family History: Diabetes, Hypertension Social History ALCOHOL: none Drugs: None Current Problem List Problem List Problems Medical Problems: (1) Change in mental status Status: Acute Current Medications Current Medications Current Medications Medications (Trade) Dose Ordered Sig/Huyen Start Time Stop Time Status Last Admin Dose Admin Acetaminophen (Tylenol) 500 mg PRN Q8HRS PRN 08/06/18 19:00 Acetaminophen/ Hydrocodone Bitart (Lortab 5/325) 1 tab PRN Q12HRS PRN 08/06/18 18:15 Ascorbic Acid (Vitamin C) 500 mg DAILY 08/07/18 09:00 Aspirin (Derek Aspirin) 325 mg DAILY 08/07/18 09:00 Bisacodyl (Dulcolax Supp) 10 mg PRN DAILY PRN 08/06/18 19:00 Calcium/Vitamin D (Oscal D 500mg/ 200uts) 1 tab DAILY 08/07/18 09:00 Citalopram Hydrobromide (CeleXA) 40 mg DAILY 08/07/18 09:00 Diltiazem HCl (Cardizem 24hr Cd) 180 mg DAILY 08/07/18 09:00 Docusate Sodium (Colace) 100 mg BID 08/06/18 21:00 Famotidine (Pepcid) 20 mg DAILY 08/07/18 09:00 Ferrous Sulfate (Feosol) 325 mg DAILY 08/07/18 09:00 Heparin Sodium (Porcine) (Heparin Sodium) 5,000 unit Q12HR 08/06/18 21:00 Insulin Glargine (Lantus) 34 units [id number] 08/07/18 08:00 Insulin Human Lispro (HumaLOG) 10 units TIDWMEALS 08/06/18 19:30 Isosorbide Mononitrate (Imdur) 60 mg DAILY 08/07/18 09:00 Lactulose (Lactulose) 20 gm PRN Q12HR PRN 08/06/18 18:15 Losartan Potassium (Cozaar) 50 mg DAILY 08/07/18 09:00 Magnesium Hydroxide (Milk Of Magnesia) 2,400 mg PRN DAILY PRN 08/06/18 19:00 Meclizine HCl (Antivert) 12.5 mg BID 08/06/18 21:00 Metolazone (Zaroxolyn) 5 mg DAILY 08/07/18 09:00 Metoprolol Tartrate (Lopressor) 25 mg BID 08/06/18 21:00 Mirtazapine (Remeron) 7.5 mg QHS 08/06/18 21:00 Morphine Sulfate (Morphine Sulfate) 1 mg PRN Q1HR PRN 08/06/18 18:15 Multivitamins (Thera M Plus) 1 tab DAILY 08/07/18 09:00 Nitroglycerin (Nitrostat) 0.4 mg PRN Q5MIN PRN 08/06/18 18:15 Non-Formulary Medication (Bumetanide ) 4 mg BID 08/06/18 21:00 UNV Non-Formulary Medication (Lidocaine (Aspercreme)) 1 each DAILY 08/07/18 09:00 UNV Non-Formulary Medication (Omeprazole ) 40 mg DAILY 08/07/18 09:00 UNV Non-Formulary Medication (Trolamine Salicylate/Aloe Vera (Aspercreme 10% Cream)) 35.4 gm TID PRN PRN 08/06/18 20:30 UNV Ondansetron HCl (Zofran) 4 mg PRN Q6HRS PRN 08/06/18 18:15 Oxycodone/ Acetaminophen (Percocet 5/325) 1 tab PRN Q6HRS PRN 08/06/18 18:15 Pantoprazole Sodium (Protonix) 40 mg DAILYAC 08/07/18 07:30 Polyethylene Glycol (miraLAX PACKET) 17 gm DAILY 08/07/18 09:00 Potassium Chloride (Klor-Con) 10 meq DAILY 08/07/18 09:00 Sodium Chloride 500 ml @ 500 mls/hr 1X ONCE 08/06/18 16:00 08/06/18 16:59 DC 08/06/18 16:21 500 MLS/HR Spironolactone (Aldactone) 25 mg DAILY 08/07/18 09:00 Warfarin Sodium (Coumadin Per Physician) 1 each PRN DAILY PRN 08/06/18 19:00 Warfarin Sodium (Coumadin) 5 mg DAILY16 08/06/18 19:30 Allergies Allergies Allergies Coded Allergies Type Severity Reaction Last Updated Verified Iodinated Contrast- Oral and IV Dye Allergy Severe Anaphylaxis 07/19/17 Yes adhesive tape Allergy Intermediate 07/19/17 Yes I S O L A T I O N *CONTACT* Allergy Unknown 07/19/17 Yes meperidine Adverse Reaction Intermediate Vomiting 07/19/17 Yes ROS Review of System CONSTITUTIONAL: No fever or chills EYES: No recent changes SKIN: No rash or itching CARDIOVASCULAR: No chest pain, syncope, palpitations, or edema RESPIRATORY: No SOB or cough GASTROINTESTINAL: No nausea, vomiting or abdominal pain NEUROLOGICAL: No headaches or weakness ENDOCRINE: No cold or heat intolerance GENITOURINARY: No urgency or frequency of urination MUSCULOSKELETAL: No back pain or joint pain LYMPHATICS: No enlarged lymph nodes PSYCHIATRIC: No anxiety or depression Physical Exam Physical Exam GEN.: No apparent distress. Alert and oriented. HEENT: Head is normocephalic, atraumatic NECK: Supple. LUNGS: Clear to auscultation. HEART: RRR, S1, S2 present. Peripheral pulses intact ABDOMEN: Soft, nontender. Positive bowel sounds. EXTREMITIES: Without any cyanosis. NEUROLOGIC: Normal speech, normal tone PSYCHIATRIC: Normal affect, normal mood. SKIN: No ulcerations Vitals Vitals Vital Signs Date Time Temp Pulse Resp B/P (MAP) Pulse Ox O2 Delivery O2 Flow Rate FiO2 08/06/18 18:35 84 22 99 08/06/18 15:30 97.8 139/73 (95) Room Air 97.8 Labs Labs Laboratory Tests Test 08/06/18 15:47 08/06/18 16:00 08/06/18 16:08 08/06/18 16:25 Stool Occult Blood Negative (NEG) White Blood Count 11.8 x10^3/uL (4.0-11.0) Red Blood Count 4.05 x10^6/uL (3.50-5.40) Hemoglobin 13.2 g/dL (12.0-15.5) Hematocrit 39.1 % (36.0-47.0) Mean Corpuscular Volume 96 fL (79-100) Mean Corpuscular Hemoglobin 33 pg (25-35) Mean Corpuscular Hemoglobin Concent 34 g/dL (31-37) Red Cell Distribution Width 15.0 % (11.5-14.5) Platelet Count 367 x10^3/uL (140-400) Neutrophils (%) (Auto) 74 % (31-73) Lymphocytes (%) (Auto) 17 % (24-48) Monocytes (%) (Auto) 7 % (0-9) Eosinophils (%) (Auto) 1 % (0-3) Basophils (%) (Auto) 1 % (0-3) Neutrophils # (Auto) 8.8 x10^3uL (1.8-7.7) Lymphocytes # (Auto) 1.9 x10^3/uL (1.0-4.8) Monocytes # (Auto) 0.9 x10^3/uL (0.0-1.1) Eosinophils # (Auto) 0.2 x10^3/uL (0.0-0.7) Basophils # (Auto) 0.1 x10^3/uL (0.0-0.2) Sodium Level 140 mmol/L (136-145) Potassium Level 4.5 mmol/L (3.5-5.1) Chloride Level 100 mmol/L (98-107) Carbon Dioxide Level 29 mmol/L (21-32) Anion Gap 11 (6-14) Blood Urea Nitrogen 61 mg/dL (7-20) Creatinine 1.6 mg/dL (0.6-1.0) Estimated GFR (Cockcroft-Gault) 30.9 BUN/Creatinine Ratio 38 (6-20) Glucose Level 99 mg/dL (70-99) Lactic Acid Level 2.1 mmol/L (0.4-2.0) Calcium Level 10.3 mg/dL (8.5-10.1) Magnesium Level 2.2 mg/dL (1.8-2.4) Total Bilirubin 0.5 mg/dL (0.2-1.0) Aspartate Amino Transf (AST/SGOT) 17 U/L (15-37) Alanine Aminotransferase (ALT/SGPT) 22 U/L (14-59) Alkaline Phosphatase 107 U/L (46-116) Creatine Kinase 28 U/L (26-192) Creatine Kinase MB (Mass) 1.5 ng/mL (0.0-3.6) Creatine Kinase MB Relative Index % (0-4) Troponin I Quantitative 0.385 ng/mL (0.000-0.055) Total Protein 7.5 g/dL (6.4-8.2) Albumin 2.9 g/dL (3.4-5.0) Albumin/Globulin Ratio 0.6 (1.0-1.7) Urine Collection Type U cath Urine Color Yellow Urine Clarity Clear Urine pH 7.5 Urine Specific [place] 1.010 Urine Protein Negative mg/dL (NEG-TRACE) Urine Glucose (UA) Negative mg/dL (NEG) Urine Ketones (Stick) Negative mg/dL (NEG) Urine Blood Negative (NEG) Urine Nitrite Negative (NEG) Urine Bilirubin Negative (NEG) Urine Urobilinogen Dipstick 0.2 mg/dL (0.2 mg/dL) Urine Leukocyte Esterase Negative (NEG) Urine RBC 0 /HPF (0-2) Urine WBC 0 /HPF (0-4) Urine Transitional Epithelial Cells Occ /LPF Urine Bacteria 0 /HPF (0-FEW) Urine Mucus Slight /LPF Influenza Type A Antigen Negative (NEGATIVE) Influenza Type B Antigen Negative (NEGATIVE) Test 08/06/18 16:40 Prothrombin Time 13.6 SEC (11.7-14.0) Prothromb Time International Ratio 1.1 (0.8-1.1) Activated Partial Thromboplast Time 22 SEC (24-38) Laboratory Tests Test 08/06/18 15:47 08/06/18 16:00 08/06/18 16:08 08/06/18 16:25 Stool Occult Blood Negative (NEG) White Blood Count 11.8 x10^3/uL (4.0-11.0) Red Blood Count 4.05 x10^6/uL (3.50-5.40) Hemoglobin 13.2 g/dL (12.0-15.5) Hematocrit 39.1 % (36.0-47.0) Mean Corpuscular Volume 96 fL (79-100) Mean Corpuscular Hemoglobin 33 pg (25-35) Mean Corpuscular Hemoglobin Concent 34 g/dL (31-37) Red Cell Distribution Width 15.0 % (11.5-14.5) Platelet Count 367 x10^3/uL (140-400) Neutrophils (%) (Auto) 74 % (31-73) Lymphocytes (%) (Auto) 17 % (24-48) Monocytes (%) (Auto) 7 % (0-9) Eosinophils (%) (Auto) 1 % (0-3) Basophils (%) (Auto) 1 % (0-3) Neutrophils # (Auto) 8.8 x10^3uL (1.8-7.7) Lymphocytes # (Auto) 1.9 x10^3/uL (1.0-4.8) Monocytes # (Auto) 0.9 x10^3/uL (0.0-1.1) Eosinophils # (Auto) 0.2 x10^3/uL (0.0-0.7) Basophils # (Auto) 0.1 x10^3/uL (0.0-0.2) Sodium Level 140 mmol/L (136-145) Potassium Level 4.5 mmol/L (3.5-5.1) Chloride Level 100 mmol/L (98-107) Carbon Dioxide Level 29 mmol/L (21-32) Anion Gap 11 (6-14) Blood Urea Nitrogen 61 mg/dL (7-20) Creatinine 1.6 mg/dL (0.6-1.0) Estimated GFR (Cockcroft-Gault) 30.9 BUN/Creatinine Ratio 38 (6-20) Glucose Level 99 mg/dL (70-99) Lactic Acid Level 2.1 mmol/L (0.4-2.0) Calcium Level 10.3 mg/dL (8.5-10.1) Magnesium Level 2.2 mg/dL (1.8-2.4) Total Bilirubin 0.5 mg/dL (0.2-1.0) Aspartate Amino Transf (AST/SGOT) 17 U/L (15-37) Alanine Aminotransferase (ALT/SGPT) 22 U/L (14-59) Alkaline Phosphatase 107 U/L (46-116) Creatine Kinase 28 U/L (26-192) Creatine Kinase MB (Mass) 1.5 ng/mL (0.0-3.6) Creatine Kinase MB Relative Index % (0-4) Troponin I Quantitative 0.385 ng/mL (0.000-0.055) Total Protein 7.5 g/dL (6.4-8.2) Albumin 2.9 g/dL (3.4-5.0) Albumin/Globulin Ratio 0.6 (1.0-1.7) Urine Collection Type U cath Urine Color Yellow Urine Clarity Clear Urine pH 7.5 Urine Specific [place] 1.010 Urine Protein Negative mg/dL (NEG-TRACE) Urine Glucose (UA) Negative mg/dL (NEG) Urine Ketones (Stick) Negative mg/dL (NEG) Urine Blood Negative (NEG) Urine Nitrite Negative (NEG) Urine Bilirubin Negative (NEG) Urine Urobilinogen Dipstick 0.2 mg/dL (0.2 mg/dL) Urine Leukocyte Esterase Negative (NEG) Urine RBC 0 /HPF (0-2) Urine WBC 0 /HPF (0-4) Urine Transitional Epithelial Cells Occ /LPF Urine Bacteria 0 /HPF (0-FEW) Urine Mucus Slight /LPF Influenza Type A Antigen Negative (NEGATIVE) Influenza Type B Antigen Negative (NEGATIVE) Test 08/06/18 16:40 Prothrombin Time 13.6 SEC (11.7-14.0) Prothromb Time International Ratio 1.1 (0.8-1.1) Activated Partial Thromboplast Time 22 SEC (24-38) VTE Prophylaxis Ordered VTE Prophylaxis Devices: Yes VTE Pharmacological Prophylaxi: Yes Assessment/Plan Assessment/Plan Dysarthria high suspicion for central etiology given her comorbidities Atrial fibrillation on chronic anticoagulation currently transitioning to a new agent according to the patient and her daughters at bedside history of hypertension DM type 2 insulin requiring ckd3 chronic afib on warfarin dm2 on insulin h/o BCa left lumpectomy GERD HTN h/o [place] PPM Morbid obesity History of chronic diastolic dysfunction currently seems to be compensated. plan: Admit patient to the medical floor Consult neurology Resume home medications Verify current anticoagulation Monitor hemodynamics and neurochecks Further recommendations based on the clinical course DVT prophylaxis patient is currently on a new anticoagulant once we have established his home medications will discontinue the current order for heparin WILLY VINCENT MD Aug 06, 2018 20:45
[2018-08-06] MEDS ORDERED: APIX5TAB PO (20:50)
[2018-08-06] MEDS ORDERED: HEPARIN for SUB-Q USE 5,000 UNIT/ML VIAL. SQ SCH (21:00)
[2018-08-06] MEDS: INSULIN LISPRO 300 UNITS/3 ML INSULN.PEN. SQ SCH (21:13)
[2018-08-06] MEDS: MECLIZINE HCL 12.5 MG TABLET. PO SCH (22:16)
[2018-08-06] MEDS: DOCUSATE SODIUM 100 MG CAPSULE. PO SCH (22:16)
[2018-08-06] MEDS: MIRTAZAPINE 7.5 MG TABLET. PO SCH (22:16)
[2018-08-06] MEDS: APIXABAN 5 MG TABLET. PO SCH (22:16)
[2018-08-06] MEDS: METOPROLOL TART IMMED RELEASE 25 MG TABLET. PO SCH (22:17)
[2018-08-06] MEDS: ANTI-COAG MONITOR BY PHARMACY. MC PRN (22:54)
[2018-08-06 23:00] VITALS: BP 108/69
[2018-08-07 03:00] VITALS: BP 105/39
[2018-08-07] MEDS ORDERED: DOXY100T PO (04:14)
[2018-08-07 04:28] LABS: BASO % 0 % (0-3); EOS # 0.2 x10^3/uL (0.0-0.7); EOS % 2 % (0-3); HEMATOCRIT 35.6 % (36.0-47.0); LYMPH # 2.1 x10^3/uL (1.0-4.8); LYMPH % 21 % (24-48); MEAN CORPUSCULAR HEMOGLOBIN 32 pg (25-35); MEAN CORPUSCULAR HGB CONC 34 g/dL (31-37); MEAN CORPUSCULAR VOLUME 96 fL (79-100); MONO # 0.8 x10^3/uL (0.0-1.1); MONO % 9 % (0-9); NEUT # 6.6 x10^3uL (1.8-7.7); NEUT % 68 % (31-73); PLATELET COUNT 325 x10^3/uL (140-400); RED BLOOD COUNT 3.73 x10^6/uL (3.50-5.40); WHITE BLOOD COUNT 9.7 x10^3/uL (4.0-11.0)
[2018-08-07 04:45] LABS: CALCIUM 9.7 mg/dL (8.5-10.1); CREATININE 1.5 mg/dL (0.6-1.0); GFR 33.2; POTASSIUM 4.1 mmol/L (3.5-5.1)
[2018-08-07 06:55] VITALS: BP 153/47
[2018-08-07] MEDS: PANTOPRAZOLE 40 MG TABLET.DR. PO SCH (07:30)
[2018-08-07] MEDS: INSULIN LISPRO 300 UNITS/3 ML INSULN.PEN. SQ SCH ×3 (08:00→16:23)
[2018-08-07] MEDS ORDERED: ACETAMINOPHEN 325 MG TABLET. PO PRN (09:00)
[2018-08-07] MEDS: POLYETHYLENE GLYCOL 3350 17 GM PACKET. PO SCH (09:00)
[2018-08-07] MEDS: MECLIZINE HCL 12.5 MG TABLET. PO SCH ×2 (09:00→21:13)
[2018-08-07] MEDS: DOCUSATE SODIUM 100 MG CAPSULE. PO SCH ×2 (09:00→21:15)
[2018-08-07] MEDS ORDERED: NON FORMULARY ITEM (Omeprazole 40 MG) PO SCH (09:00)
[2018-08-07] MEDS ORDERED: LOSARTAN POTASSIUM 50 MG TABLET. PO SCH (09:00)
[2018-08-07] MEDS ORDERED: metOLazone 2.5 MG TABLET PO SCH (09:00)
[2018-08-07] MEDS ORDERED: BUMETANIDE 1 MG TABLET. PO SCH (09:00)
[2018-08-07] MEDS: METOPROLOL TART IMMED RELEASE 25 MG TABLET. PO SCH ×2 (09:00→21:13)
[2018-08-07] MEDS ORDERED: ACETAMINOPHEN 650 MG SUPP.RECT. PR PRN (09:00)
[2018-08-07] MEDS ORDERED: LIDOCAINE TP SCH (09:00)
[2018-08-07] MEDS ORDERED: ISOSORBIDE MONONITRATE ER 30 MG TAB.ER.24H PO SCH (09:00)
[2018-08-07] MEDS: MULTIVITAMIN with MINERAL TABLET. PO SCH (09:23)
[2018-08-07] MEDS: CITALOPRAM 20 MG TABLET. PO SCH (09:24)
[2018-08-07] MEDS: ASPIRIN 325 MG TABLET PO SCH (09:24)
[2018-08-07] MEDS: CALCIUM CARB/VIT D3 500/200 TABLET. PO SCH (09:25)
[2018-08-07] MEDS: POTASSIUM CHLORIDE 10 MEQ TABLET.ER. PO SCH (09:25)
[2018-08-07] MEDS: FAMOTIDINE 20 MG TABLET. PO SCH (09:26)
[2018-08-07] MEDS: APIXABAN 5 MG TABLET. PO SCH ×2 (09:26→21:12)
[2018-08-07] MEDS: ASCORBIC ACID 500 MG TABLET PO SCH (09:27)
[2018-08-07] MEDS: SPIRONOLACTONE 25 MG TABLET PO SCH (09:27)
[2018-08-07] MEDS: FERROUS SULFATE 325 MG TABLET. PO SCH (09:27)
--- NOTE | 2018-08-07 09:46 | NUR ---
SW following pt for anticipated dc needs. Chart reviewed and discussed with RN. RICK confirmed with Kathy at [facility] pt is OR resident. PT/OT pending. RICK will await for PT/OT recommendation to assess dc needs. Will continue to follow. Addendum: 08/07/18 at 1324 by LOWELL GRIFFIN SW Per pt's family request, RICK spoke with pt's daughterMaite, phone: [phone] and Jessie in room about dc plan. SW discussed PT/OT is ordered and SW is awaiting for their evaluation to assess skilled needs. RICK extensively discussed about rehab, SNU vs HH and insurance coverage. RICK also discussed options. Will discuss with daughterMaite after PT/OT evaluates/treats pt. Discussed with Physician and RN.
--- NOTE | 2018-08-07 09:48 | PDOC2 ---
JEFF BUSBY DRIP MOLDER 08/07/18 0948: CARDIAC CONSULT DATE OF CONSULT Date of Consult DATE: 08/07/18 TIME: 09:26 REASON FOR CONSULT Reason for Consult: AFIB, elevated trop REFERRING PHYSICIAN Referring Physician: Sahara SOURCE Source: Chart review, Patient HISTORY OF PRESENT ILLNESS HISTORY OF PRESENT ILLNESS This is a pleasant 83 yo female admitted ffor noted altered mental status. She resides at [facility]. She noticed herself unable to speak and called her niece and for some reason she was able to dial her niece's phone number. No fall at that time. Help arrived and noted her acting confused. No visual or auditory disturbances but complained of some CRUZ but no chest pain, palpitations, nausea, vomiting. She has been complaint with her medications otherwise per report. Today she is speaking better compared to what was described and swallowing ok per speech eval and able to follow directions AOx3 with no unilateral weakness except for her LUE to which she has chronic tear to her RTC. She did fall about a week ago, noting that she lost her balance with possible lumbar radiculopathy and hit her right elbow and fell and no lost of consciousness but noted with INR at 6.9 initially per daughter and so her coumadin was discontinued on 07/31 and was planned to be started on eliquis which she did the other day. 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 Mukherjee as an outpt. She has chronic AFIB and CAD and saw Dr. 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 No CP, significant SOA, no palpiations. No dizziness or passing out. No prior hx of CVA. PAST MEDICAL HISTORY Cardiovascular: AFIB, CAD, CHF, HTN, IA, Valve insufficiency, Pulmonary hypertension Pulmonary: Asthma, Pneumonia CENTRAL NERVOUS SYSTEM: Other (No pertinent history) GI: GERD Heme/Onc: Anemia NOS (with chronic anticoagulation), Cancer (breast), Other ( DVT) Hepatobiliary: No pertinent hx Musculoskeletal: Osteoarthritis Rheumatologic: No pertinent hx Infectious disease: No pertinent hx ENT: Other (menieres) Renal/: Chronic renal insuff (CKD3), UTI, Urinary Incontinence Endocrine: No pertinent hx Dermatology: No pertinent hx PAST SURGICAL HISTORY Past Surgical History: Appendectomy, Cholecystectomy, Cataract Removal, Mastectomy (left lumpectomy), Tonsillectomy, Hysterectomy, Other (PCI/JH 2016 multivessel) FAMILY HISTORY Family History: Diabetes, Hypertension SOCIAL HISTORY Smoke: No ALCOHOL: none Drugs: None Lives: with Family CURRENT MEDICATIONS CURRENT MEDICATIONS Current Medications Medications (Trade) Dose Ordered Sig/Huyen Route PRN Reason Start Time Stop Time Status Last Admin Dose Admin Sodium Chloride 500 ml @ 500 mls/hr 1X ONCE IV 08/06/18 16:00 08/06/18 16:59 DC 08/06/18 16:21 Docusate Sodium (Colace) 100 mg BID PO 08/06/18 21:00 08/06/18 22:16 Metoprolol Tartrate (Lopressor) 25 mg BID PO 08/06/18 21:00 08/06/18 22:17 Meclizine HCl (Antivert) 12.5 mg BID PO 08/06/18 21:00 08/06/18 22:16 Mirtazapine (Remeron) 7.5 mg QHS PO 08/06/18 21:00 08/06/18 22:16 Multi-Ingredient Ointment (Analgesic [place]) 1 marisol PRN TID PRN TP MUSCLE PAIN 08/06/18 20:45 08/06/18 22:17 Apixaban (Eliquis) 5 mg BID PO 08/06/18 21:00 08/06/18 22:16 Info (Anti-Coagulation Monitoring By Pharmacy) 1 each PRN DAILY PRN MC SEE COMMENTS 08/06/18 21:00 08/06/18 22:54 ALLERGIES ALLERGIES: Coded Allergies: Iodinated Contrast- Oral and IV Dye (Verified Allergy, Severe, Anaphylaxis , 07/19/17) adhesive tape (Verified Allergy, Intermediate, 07/19/17) I S O L A T I O N *CONTACT* (Verified Allergy, Unknown, 07/19/17) mrsa meperidine (Verified Adverse Reaction, Intermediate, Vomiting, 07/19/17) ROS Review of System 14 point ROS evaluated with pertinent positives noted per HPI PHYSICAL EXAM General: Alert, Oriented X3, Cooperative, No acute distress HEENT: Atraumatic, Mucous membr. moist/pink Lungs: Clear to auscultation, Normal air movement Heart: Other (AFIB rate controlled; 2/6 systolic murmur to LLS border) Abdomen: Soft, No tenderness Extremities: No cyanosis, No edema Skin: No breakdown, No significant lesion Neuro: Normal speech, Sensation intact Psych/Mental Status: Mental status NL, Other (flat affect) MUSCULOSKELETAL: Osteoarthritic changes both hands VITALS VITALS Vital Signs Date Time Temp Pulse Resp B/P (MAP) Pulse Ox O2 Delivery O2 Flow Rate FiO2 08/07/18 09:00 60 153/47 08/07/18 06:55 97.5 18 98 Room Air 97.5 LABS Lab: Laboratory Tests Test 08/06/18 15:47 08/06/18 16:00 08/06/18 16:08 08/06/18 16:25 Stool Occult Blood Negative (NEG) White Blood Count 11.8 x10^3/uL (4.0-11.0) Red Blood Count 4.05 x10^6/uL (3.50-5.40) Hemoglobin 13.2 g/dL (12.0-15.5) Hematocrit 39.1 % (36.0-47.0) Mean Corpuscular Volume 96 fL (79-100) Mean Corpuscular Hemoglobin 33 pg (25-35) Mean Corpuscular Hemoglobin Concent 34 g/dL (31-37) Red Cell Distribution Width 15.0 % (11.5-14.5) Platelet Count 367 x10^3/uL (140-400) Neutrophils (%) (Auto) 74 % (31-73) Lymphocytes (%) (Auto) 17 % (24-48) Monocytes (%) (Auto) 7 % (0-9) Eosinophils (%) (Auto) 1 % (0-3) Basophils (%) (Auto) 1 % (0-3) Neutrophils # (Auto) 8.8 x10^3uL (1.8-7.7) Lymphocytes # (Auto) 1.9 x10^3/uL (1.0-4.8) Monocytes # (Auto) 0.9 x10^3/uL (0.0-1.1) Eosinophils # (Auto) 0.2 x10^3/uL (0.0-0.7) Basophils # (Auto) 0.1 x10^3/uL (0.0-0.2) Sodium Level 140 mmol/L (136-145) Potassium Level 4.5 mmol/L (3.5-5.1) Chloride Level 100 mmol/L (98-107) Carbon Dioxide Level 29 mmol/L (21-32) Anion Gap 11 (6-14) Blood Urea Nitrogen 61 mg/dL (7-20) Creatinine 1.6 mg/dL (0.6-1.0) Estimated GFR (Cockcroft-Gault) 30.9 BUN/Creatinine Ratio 38 (6-20) Glucose Level 99 mg/dL (70-99) Lactic Acid Level 2.1 mmol/L (0.4-2.0) Calcium Level 10.3 mg/dL (8.5-10.1) Magnesium Level 2.2 mg/dL (1.8-2.4) Total Bilirubin 0.5 mg/dL (0.2-1.0) Aspartate Amino Transf (AST/SGOT) 17 U/L (15-37) Alanine Aminotransferase (ALT/SGPT) 22 U/L (14-59) Alkaline Phosphatase 107 U/L (46-116) Creatine Kinase 28 U/L (26-192) Creatine Kinase MB (Mass) 1.5 ng/mL (0.0-3.6) Creatine Kinase MB Relative Index % (0-4) Troponin I Quantitative 0.385 ng/mL (0.000-0.055) Total Protein 7.5 g/dL (6.4-8.2) Albumin 2.9 g/dL (3.4-5.0) Albumin/Globulin Ratio 0.6 (1.0-1.7) Urine Collection Type U cath Urine Color Yellow Urine Clarity Clear Urine pH 7.5 Urine Specific Holden 1.010 Urine Protein Negative mg/dL (NEG-TRACE) Urine Glucose (UA) Negative mg/dL (NEG) Urine Ketones (Stick) Negative mg/dL (NEG) Urine Blood Negative (NEG) Urine Nitrite Negative (NEG) Urine Bilirubin Negative (NEG) Urine Urobilinogen Dipstick 0.2 mg/dL (0.2 mg/dL) Urine Leukocyte Esterase Negative (NEG) Urine RBC 0 /HPF (0-2) Urine WBC 0 /HPF (0-4) Urine Transitional Epithelial Cells Occ /LPF Urine Bacteria 0 /HPF (0-FEW) Urine Mucus Slight /LPF Influenza Type A Antigen Negative (NEGATIVE) Influenza Type B Antigen Negative (NEGATIVE) Test 08/06/18 16:40 08/07/18 03:50 08/07/18 07:35 Prothrombin Time 13.6 SEC (11.7-14.0) Prothromb Time International Ratio 1.1 (0.8-1.1) Activated Partial Thromboplast Time 22 SEC (24-38) White Blood Count 9.7 x10^3/uL (4.0-11.0) Red Blood Count 3.73 x10^6/uL (3.50-5.40) Hemoglobin 12.0 g/dL (12.0-15.5) Hematocrit 35.6 % (36.0-47.0) Mean Corpuscular Volume 96 fL (79-100) Mean Corpuscular Hemoglobin 32 pg (25-35) Mean Corpuscular Hemoglobin Concent 34 g/dL (31-37) Red Cell Distribution Width 15.0 % (11.5-14.5) Platelet Count 325 x10^3/uL (140-400) Neutrophils (%) (Auto) 68 % (31-73) Lymphocytes (%) (Auto) 21 % (24-48) Monocytes (%) (Auto) 9 % (0-9) Eosinophils (%) (Auto) 2 % (0-3) Basophils (%) (Auto) 0 % (0-3) Neutrophils # (Auto) 6.6 x10^3uL (1.8-7.7) Lymphocytes # (Auto) 2.1 x10^3/uL (1.0-4.8) Monocytes # (Auto) 0.8 x10^3/uL (0.0-1.1) Eosinophils # (Auto) 0.2 x10^3/uL (0.0-0.7) Basophils # (Auto) 0.0 x10^3/uL (0.0-0.2) Sodium Level 139 mmol/L (136-145) Potassium Level 4.1 mmol/L (3.5-5.1) Chloride Level 102 mmol/L (98-107) Carbon Dioxide Level 29 mmol/L (21-32) Anion Gap 8 (6-14) Blood Urea Nitrogen 57 mg/dL (7-20) Creatinine 1.5 mg/dL (0.6-1.0) Estimated GFR (Cockcroft-Gault) 33.2 Glucose Level 103 mg/dL (70-99) Calcium Level 9.7 mg/dL (8.5-10.1) Troponin I Quantitative 0.290 ng/mL (0.000-0.055) Glucose (Fingerstick) 112 mg/dL (70-99) ECHOCARDIOGRAM ECHOCARDIOGRAM <Conclusion> There is mild concentric left ventricular hypertrophy. The left ventricular systolic function is normal and the ejection fraction is within normal range. The Ejection Fraction is 60%. Transmitral Doppler flow pattern is restrictive diastolic dysfunction. The left atrium is moderately dilated. The right atrium is moderately dilated. Doppler and Color Flow revealed mild to moderate aortic regurgitation. The mitral valve is calcified but opens well. Mitral annular calcification is mild to moderate. Doppler and Color-flow revealed moderate mitral regurgitation. Doppler and Color Flow revealed mild to moderate tricuspid regurgitation. There is moderate pulmonary hypertension. The PA pressure was estimated at 55 mmHg. The pulmonic valve is not well visualized. There is a trace of pericardial effusion. DATE: 02/25/181756 HEART CATH HEART CATH PROCEDURE NARRATIVE After obtaining informed consent the patient was brought to the computer lab aide. With the patient in the supine position the right groin area was prepped and draped in the usual fashion. The area was infiltrated with Xylocaine to obtain topical anesthesia and then using Seldinger technique a Cordis sheath was inserted into the femoral artery and another one into the femoral vein. The patient was then heparinized and she also received a bolus of Aggrastat and a drip was started. Through the arterial sheath A left Hafsa guiding catheter was then advanced and utilized to engage left coronary os because of the left coronary artery were then done. The left main is unchanged. The LAD is unchanged. The circumflex has diffuse 60-90% stenosis of the entire midsegment and up to his marginal has a 90% area of stenosis. The distal circumflex is 100% occluded and there are some bridging collaterals present. A guidewire was then advanced into the circumflex and in the obtuse marginal across the area of stenosis. A 2.0 mm balloon was advanced and placed in the area of stenosis of the obtuse marginal on multiple dilatations were done in that area. The balloon was removed and a view wasn't done and we didn't so that the vessel appears to be very well And with excellent flow through it no dissection was identified. I didn't repositioned the guidewire into the circumflex and across the area of diffuse disease in the mid segment of the circumflex. The guidewire goes into a small marginal. He was not cross in the distal circumflex. 8.5 mm drug-eluting stent was the guidewire and once he was in the mid segment of the circumflex just distal to the takeoff of the obtuse marginal the stent was deployed and multiple high-pressure inflations were then done. Then done and I could see that the stent was open in good position no dissection was identified and there was excellent flow through the stent into the small marginal and the bridging collaterals to the distal circumflex. The left Hafsa catheter was then removed and a right Hafsa guiding catheter was then utilized to engage the right coronary os. Review of the right coronary artery wasn't done. The right coronary artery has a proximal 60% stenosis with a tandem lesion that is about 70% and then in the mid segment just distal to the acute marginal the right coronary is about 90% stenosis. There is in the posterolateral branch and the PDA and it is unchanged. A guidewire was then advanced all the way to the PDA and then over the guidewire a 3.0 mm x 38 mm drug-eluting stent was advanced over the guidewire once I was satisfied with its position and from the proximal through the mid segment the stent was then deployed in view of the right coronary artery were then done. The RCA appears to be well and no dissection was identified. The stent is in good position. No apparent residual disease was seen and there is excellent flow through the right coronary all the way to the distal branches. In view of this I decided to terminate the procedure at this time. The patient was stable. The sheaths were sutured in place and a dressing was applied to the groin. There was some bleeding from the arterial sheath therefore prior to leaving the computer lab aide the 6 Mohawk sheath was exchanged for an 8 Mohawk sheath. With this the bleeding appeared to be controlled and after that sheath was sutured the patient was then transferred to the intensive care unit for further care in stable condition after tolerating the procedure rather well. Conclusion This patient had a successful PTCA of the obtuse marginal. A successful stenting of the circumflex and the RCA with drug-eluting stents. We will continue with the Aggrastat and the heparin until the morning and then stop it following which we will remove the groin lines. Recommendations Medical Therapy DATE: 01/22/16 1359 ASSESSMENT/PLAN ASSESSMENT/PLAN 1. Acute CVA: dysarthria/confusion. suspect cardioembolic 2. Elevated troponin: suspect CVA contributing and renal insufficiency. Peaked at 0.38, no cardiac symptoms. WEKG with artifacts 3. Recent mechanical Fall: no significant traumatic injury 4. Recent coumadin induced coagulopathy: Warfarin was taken off and off for about 5 days per daughter and was transitioned to eliquis. INR nml currently 5. 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 Chronic AFIB: rate controlled 7. CAD: past stents 8. HTN; controlled 9. HLP 10. CKD3 11. Barrets esophagus? Recommendations 1. MRI pending. TTE, TSH, lipids. Repeat EKG. 2. Continue cardizem for rate control. 3. Agree with eliquis as INR consistency would be affected by chronic antibiotic treatment with coumadin. 4. ASA, statin, secondary prevention measures 5. questionable hydration and on high dose bumex will titrate down for now and monitor renal function. Await TTE. 6. Supportive care. Outpt stress test is a consideration. 7. Will obtain accurate med list, discuss with RN. LA AGARWAL MD 08/07/18 3122: CARDIAC CONSULT ASSESSMENT/PLAN ASSESSMENT/PLAN Patient seen and examined. Agree with BEAVER TRAPPER's assessment and plan. Permanent atrial fibrillation rate controlled. Continue Cardizem and eliquis 2-D echo showed LVEF 50-55% Neurology following for acute CVA CAD status clinically stable Thank you for your consultation JEFF BUSBY APRN Aug 07, 2018 09:48 LA AGARWAL MD Aug 07, 2018 16:49
--- NOTE | 2018-08-07 10:00 | NUR ---
IP: Pt has a hx of + mrsa screen on 06/22/17 and one documented negative on 02/25/18. Current screen is pending. Pt to be in contact precautions until current screen is verified.
[2018-08-07] MEDS: INSULIN GLARGINE 300 UNITS/3 ML INSULN.PEN. SQ SCH (10:18)
--- NOTE | 2018-08-07 11:09 | EKG ---
[facility] [address] [place] [address] Test Date: 2018-08-07 Test Time: 10:53:10 Pat Name: TESSA ROGERS Department: Room: 650 1 Gender: F Hardwood Sawyer: MATILDA : 1935 Requested By: JEFF BUSBY Order Number: [id number] Reading MD: Darian Carreno MD Measurements Intervals Hazel Rate: 85 P: ME: QRS: -47 QRSD: 112 T: 127 QT: 422 QTc: 508 Interpretive Statements SR PAC'S NON-SPECIFIC ST/T CHANGES PROLONGED QT Electronically Signed On 08-08-2018 9:38:21 CDT by Darian Carreno MD
[2018-08-07] MEDS: ANTI-COAG MONITOR BY PHARMACY. MC PRN (11:16)
--- NOTE | 2018-08-07 11:18 | PDOC ---
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 Chronic A FIB CAD: past stents HTN HLP CKD3 History of Present Illness History of Present Illness 83yo F presented with dysarthria and confusion, no motor or sensory defects Pt sitting upright in bed this morning, family at bedside Pt responding to questions and moving b/l lower extremities Discussed plans of care with family Vitals Vitals Vital Signs Date Time Temp Pulse Resp B/P (MAP) Pulse Ox O2 Delivery O2 Flow Rate FiO2 08/07/18 09:27 60 153/47 08/07/18 06:55 97.5 18 98 Room Air 97.5 Physical Exam General: Alert, Cooperative, No acute distress Heart: Regular rate, Other (A-FIB rate controlled; 2/6 systolic murmur to LLS border) Lungs: Clear, Other (no crackles or wheezing ) Abdomen: Normal bowel sounds, Soft, No tenderness Extremities: No clubbing, No cyanosis, Other (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 ) Skin: No breakdown, No significant lesion, Other ([place] indurated b/l lower extremities ) Labs LABS Laboratory Tests Test 08/06/18 15:47 08/06/18 16:00 08/06/18 16:08 08/06/18 16:25 Stool Occult Blood Negative (NEG) White Blood Count 11.8 x10^3/uL (4.0-11.0) Red Blood Count 4.05 x10^6/uL (3.50-5.40) Hemoglobin 13.2 g/dL (12.0-15.5) Hematocrit 39.1 % (36.0-47.0) Mean Corpuscular Volume 96 fL (79-100) Mean Corpuscular Hemoglobin 33 pg (25-35) Mean Corpuscular Hemoglobin Concent 34 g/dL (31-37) Red Cell Distribution Width 15.0 % (11.5-14.5) Platelet Count 367 x10^3/uL (140-400) Neutrophils (%) (Auto) 74 % (31-73) Lymphocytes (%) (Auto) 17 % (24-48) Monocytes (%) (Auto) 7 % (0-9) Eosinophils (%) (Auto) 1 % (0-3) Basophils (%) (Auto) 1 % (0-3) Neutrophils # (Auto) 8.8 x10^3uL (1.8-7.7) Lymphocytes # (Auto) 1.9 x10^3/uL (1.0-4.8) Monocytes # (Auto) 0.9 x10^3/uL (0.0-1.1) Eosinophils # (Auto) 0.2 x10^3/uL (0.0-0.7) Basophils # (Auto) 0.1 x10^3/uL (0.0-0.2) Sodium Level 140 mmol/L (136-145) Potassium Level 4.5 mmol/L (3.5-5.1) Chloride Level 100 mmol/L (98-107) Carbon Dioxide Level 29 mmol/L (21-32) Anion Gap 11 (6-14) Blood Urea Nitrogen 61 mg/dL (7-20) Creatinine 1.6 mg/dL (0.6-1.0) Estimated GFR (Cockcroft-Gault) 30.9 BUN/Creatinine Ratio 38 (6-20) Glucose Level 99 mg/dL (70-99) Lactic Acid Level 2.1 mmol/L (0.4-2.0) Calcium Level 10.3 mg/dL (8.5-10.1) Magnesium Level 2.2 mg/dL (1.8-2.4) Total Bilirubin 0.5 mg/dL (0.2-1.0) Aspartate Amino Transf (AST/SGOT) 17 U/L (15-37) Alanine Aminotransferase (ALT/SGPT) 22 U/L (14-59) Alkaline Phosphatase 107 U/L (46-116) Creatine Kinase 28 U/L (26-192) Creatine Kinase MB (Mass) 1.5 ng/mL (0.0-3.6) Creatine Kinase MB Relative Index % (0-4) Troponin I Quantitative 0.385 ng/mL (0.000-0.055) Total Protein 7.5 g/dL (6.4-8.2) Albumin 2.9 g/dL (3.4-5.0) Albumin/Globulin Ratio 0.6 (1.0-1.7) Urine Collection Type U cath Urine Color Yellow Urine Clarity Clear Urine pH 7.5 Urine Specific [place]olo 1.010 Urine Protein Negative mg/dL (NEG-TRACE) Urine Glucose (UA) Negative mg/dL (NEG) Urine Ketones (Stick) Negative mg/dL (NEG) Urine Blood Negative (NEG) Urine Nitrite Negative (NEG) Urine Bilirubin Negative (NEG) Urine Urobilinogen Dipstick 0.2 mg/dL (0.2 mg/dL) Urine Leukocyte Esterase Negative (NEG) Urine RBC 0 /HPF (0-2) Urine WBC 0 /HPF (0-4) Urine Transitional Epithelial Cells Occ /LPF Urine Bacteria 0 /HPF (0-FEW) Urine Mucus Slight /LPF Influenza Type A Antigen Negative (NEGATIVE) Influenza Type B Antigen Negative (NEGATIVE) Test 08/06/18 16:40 08/07/18 03:50 08/07/18 07:35 Prothrombin Time 13.6 SEC (11.7-14.0) Prothromb Time International Ratio 1.1 (0.8-1.1) Activated Partial Thromboplast Time 22 SEC (24-38) White Blood Count 9.7 x10^3/uL (4.0-11.0) Red Blood Count 3.73 x10^6/uL (3.50-5.40) Hemoglobin 12.0 g/dL (12.0-15.5) Hematocrit 35.6 % (36.0-47.0) Mean Corpuscular Volume 96 fL (79-100) Mean Corpuscular Hemoglobin 32 pg (25-35) Mean Corpuscular Hemoglobin Concent 34 g/dL (31-37) Red Cell Distribution Width 15.0 % (11.5-14.5) Platelet Count 325 x10^3/uL (140-400) Neutrophils (%) (Auto) 68 % (31-73) Lymphocytes (%) (Auto) 21 % (24-48) Monocytes (%) (Auto) 9 % (0-9) Eosinophils (%) (Auto) 2 % (0-3) Basophils (%) (Auto) 0 % (0-3) Neutrophils # (Auto) 6.6 x10^3uL (1.8-7.7) Lymphocytes # (Auto) 2.1 x10^3/uL (1.0-4.8) Monocytes # (Auto) 0.8 x10^3/uL (0.0-1.1) Eosinophils # (Auto) 0.2 x10^3/uL (0.0-0.7) Basophils # (Auto) 0.0 x10^3/uL (0.0-0.2) Sodium Level 139 mmol/L (136-145) Potassium Level 4.1 mmol/L (3.5-5.1) Chloride Level 102 mmol/L (98-107) Carbon Dioxide Level 29 mmol/L (21-32) Anion Gap 8 (6-14) Blood Urea Nitrogen 57 mg/dL (7-20) Creatinine 1.5 mg/dL (0.6-1.0) Estimated GFR (Cockcroft-Gault) 33.2 Glucose Level 103 mg/dL (70-99) Calcium Level 9.7 mg/dL (8.5-10.1) Troponin I Quantitative 0.290 ng/mL (0.000-0.055) Thyroid Stimulating Hormone (TSH) 2.006 uIU/mL (0.358-3.74) Glucose (Fingerstick) 112 mg/dL (70-99) Review of Systems Review of Systems Denies N/V Denies F/C Assessment and Plan Assessmemt and Plan Assessment: Acute CVA w/ dysarthria/AMS Elevated troponin 0.385 suspect CVA and renal insufficiency contributing Recent mechanical Fall: no significant traumatic injury Recent coumadin induced coagulopathy, transitioned to eliquis 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 Labs Laboratory Tests Test 08/06/18 15:47 08/06/18 16:00 08/06/18 16:08 08/06/18 16:25 Stool Occult Blood Negative (NEG) White Blood Count 11.8 x10^3/uL (4.0-11.0) Red Blood Count 4.05 x10^6/uL (3.50-5.40) Hemoglobin 13.2 g/dL (12.0-15.5) Hematocrit 39.1 % (36.0-47.0) Mean Corpuscular Volume 96 fL (79-100) Mean Corpuscular Hemoglobin 33 pg (25-35) Mean Corpuscular Hemoglobin Concent 34 g/dL (31-37) Red Cell Distribution Width 15.0 % (11.5-14.5) Platelet Count 367 x10^3/uL (140-400) Neutrophils (%) (Auto) 74 % (31-73) Lymphocytes (%) (Auto) 17 % (24-48) Monocytes (%) (Auto) 7 % (0-9) Eosinophils (%) (Auto) 1 % (0-3) Basophils (%) (Auto) 1 % (0-3) Neutrophils # (Auto) 8.8 x10^3uL (1.8-7.7) Lymphocytes # (Auto) 1.9 x10^3/uL (1.0-4.8) Monocytes # (Auto) 0.9 x10^3/uL (0.0-1.1) Eosinophils # (Auto) 0.2 x10^3/uL (0.0-0.7) Basophils # (Auto) 0.1 x10^3/uL (0.0-0.2) Sodium Level 140 mmol/L (136-145) Potassium Level 4.5 mmol/L (3.5-5.1) Chloride Level 100 mmol/L (98-107) Carbon Dioxide Level 29 mmol/L (21-32) Anion Gap 11 (6-14) Blood Urea Nitrogen 61 mg/dL (7-20) Creatinine 1.6 mg/dL (0.6-1.0) Estimated GFR (Cockcroft-Gault) 30.9 BUN/Creatinine Ratio 38 (6-20) Glucose Level 99 mg/dL (70-99) Lactic Acid Level 2.1 mmol/L (0.4-2.0) Calcium Level 10.3 mg/dL (8.5-10.1) Magnesium Level 2.2 mg/dL (1.8-2.4) Total Bilirubin 0.5 mg/dL (0.2-1.0) Aspartate Amino Transf (AST/SGOT) 17 U/L (15-37) Alanine Aminotransferase (ALT/SGPT) 22 U/L (14-59) Alkaline Phosphatase 107 U/L (46-116) Creatine Kinase 28 U/L (26-192) Creatine Kinase MB (Mass) 1.5 ng/mL (0.0-3.6) Creatine Kinase MB Relative Index % (0-4) Troponin I Quantitative 0.385 ng/mL (0.000-0.055) Total Protein 7.5 g/dL (6.4-8.2) Albumin 2.9 g/dL (3.4-5.0) Albumin/Globulin Ratio 0.6 (1.0-1.7) Urine Collection Type U cath Urine Color Yellow Urine Clarity Clear Urine pH 7.5 Urine Specific [place] 1.010 Urine Protein Negative mg/dL (NEG-TRACE) Urine Glucose (UA) Negative mg/dL (NEG) Urine Ketones (Stick) Negative mg/dL (NEG) Urine Blood Negative (NEG) Urine Nitrite Negative (NEG) Urine Bilirubin Negative (NEG) Urine Urobilinogen Dipstick 0.2 mg/dL (0.2 mg/dL) Urine Leukocyte Esterase Negative (NEG) Urine RBC 0 /HPF (0-2) Urine WBC 0 /HPF (0-4) Urine Transitional Epithelial Cells Occ /LPF Urine Bacteria 0 /HPF (0-FEW) Urine Mucus Slight /LPF Influenza Type A Antigen Negative (NEGATIVE) Influenza Type B Antigen Negative (NEGATIVE) Test 08/06/18 16:40 08/07/18 03:50 08/07/18 07:35 Prothrombin Time 13.6 SEC (11.7-14.0) Prothromb Time International Ratio 1.1 (0.8-1.1) Activated Partial Thromboplast Time 22 SEC (24-38) White Blood Count 9.7 x10^3/uL (4.0-11.0) Red Blood Count 3.73 x10^6/uL (3.50-5.40) Hemoglobin 12.0 g/dL (12.0-15.5) Hematocrit 35.6 % (36.0-47.0) Mean Corpuscular Volume 96 fL (79-100) Mean Corpuscular Hemoglobin 32 pg (25-35) Mean Corpuscular Hemoglobin Concent 34 g/dL (31-37) Red Cell Distribution Width 15.0 % (11.5-14.5) Platelet Count 325 x10^3/uL (140-400) Neutrophils (%) (Auto) 68 % (31-73) Lymphocytes (%) (Auto) 21 % (24-48) Monocytes (%) (Auto) 9 % (0-9) Eosinophils (%) (Auto) 2 % (0-3) Basophils (%) (Auto) 0 % (0-3) Neutrophils # (Auto) 6.6 x10^3uL (1.8-7.7) Lymphocytes # (Auto) 2.1 x10^3/uL (1.0-4.8) Monocytes # (Auto) 0.8 x10^3/uL (0.0-1.1) Eosinophils # (Auto) 0.2 x10^3/uL (0.0-0.7) Basophils # (Auto) 0.0 x10^3/uL (0.0-0.2) Sodium Level 139 mmol/L (136-145) Potassium Level 4.1 mmol/L (3.5-5.1) Chloride Level 102 mmol/L (98-107) Carbon Dioxide Level 29 mmol/L (21-32) Anion Gap 8 (6-14) Blood Urea Nitrogen 57 mg/dL (7-20) Creatinine 1.5 mg/dL (0.6-1.0) Estimated GFR (Cockcroft-Gault) 33.2 Glucose Level 103 mg/dL (70-99) Calcium Level 9.7 mg/dL (8.5-10.1) Troponin I Quantitative 0.290 ng/mL (0.000-0.055) Thyroid Stimulating Hormone (TSH) 2.006 uIU/mL (0.358-3.74) Glucose (Fingerstick) 112 mg/dL (70-99) Laboratory Tests Test 08/06/18 15:47 08/06/18 16:00 08/06/18 16:08 08/06/18 16:25 Stool Occult Blood Negative (NEG) White Blood Count 11.8 x10^3/uL (4.0-11.0) Red Blood Count 4.05 x10^6/uL (3.50-5.40) Hemoglobin 13.2 g/dL (12.0-15.5) Hematocrit 39.1 % (36.0-47.0) Mean Corpuscular Volume 96 fL (79-100) Mean Corpuscular Hemoglobin 33 pg (25-35) Mean Corpuscular Hemoglobin Concent 34 g/dL (31-37) Red Cell Distribution Width 15.0 % (11.5-14.5) Platelet Count 367 x10^3/uL (140-400) Neutrophils (%) (Auto) 74 % (31-73) Lymphocytes (%) (Auto) 17 % (24-48) Monocytes (%) (Auto) 7 % (0-9) Eosinophils (%) (Auto) 1 % (0-3) Basophils (%) (Auto) 1 % (0-3) Neutrophils # (Auto) 8.8 x10^3uL (1.8-7.7) Lymphocytes # (Auto) 1.9 x10^3/uL (1.0-4.8) Monocytes # (Auto) 0.9 x10^3/uL (0.0-1.1) Eosinophils # (Auto) 0.2 x10^3/uL (0.0-0.7) Basophils # (Auto) 0.1 x10^3/uL (0.0-0.2) Sodium Level 140 mmol/L (136-145) Potassium Level 4.5 mmol/L (3.5-5.1) Chloride Level 100 mmol/L (98-107) Carbon Dioxide Level 29 mmol/L (21-32) Anion Gap 11 (6-14) Blood Urea Nitrogen 61 mg/dL (7-20) Creatinine 1.6 mg/dL (0.6-1.0) Estimated GFR (Cockcroft-Gault) 30.9 BUN/Creatinine Ratio 38 (6-20) Glucose Level 99 mg/dL (70-99) Lactic Acid Level 2.1 mmol/L (0.4-2.0) Calcium Level 10.3 mg/dL (8.5-10.1) Magnesium Level 2.2 mg/dL (1.8-2.4) Total Bilirubin 0.5 mg/dL (0.2-1.0) Aspartate Amino Transf (AST/SGOT) 17 U/L (15-37) Alanine Aminotransferase (ALT/SGPT) 22 U/L (14-59) Alkaline Phosphatase 107 U/L (46-116) Creatine Kinase 28 U/L (26-192) Creatine Kinase MB (Mass) 1.5 ng/mL (0.0-3.6) Creatine Kinase MB Relative Index % (0-4) Troponin I Quantitative 0.385 ng/mL (0.000-0.055) Total Protein 7.5 g/dL (6.4-8.2) Albumin 2.9 g/dL (3.4-5.0) Albumin/Globulin Ratio 0.6 (1.0-1.7) Urine Collection Type U cath Urine Color Yellow Urine Clarity Clear Urine pH 7.5 Urine Specific [place] 1.010 Urine Protein Negative mg/dL (NEG-TRACE) Urine Glucose (UA) Negative mg/dL (NEG) Urine Ketones (Stick) Negative mg/dL (NEG) Urine Blood Negative (NEG) Urine Nitrite Negative (NEG) Urine Bilirubin Negative (NEG) Urine Urobilinogen Dipstick 0.2 mg/dL (0.2 mg/dL) Urine Leukocyte Esterase Negative (NEG) Urine RBC 0 /HPF (0-2) Urine WBC 0 /HPF (0-4) Urine Transitional Epithelial Cells Occ /LPF Urine Bacteria 0 /HPF (0-FEW) Urine Mucus Slight /LPF Influenza Type A Antigen Negative (NEGATIVE) Influenza Type B Antigen Negative (NEGATIVE) Test 08/06/18 16:40 08/07/18 03:50 08/07/18 07:35 Prothrombin Time 13.6 SEC (11.7-14.0) Prothromb Time International Ratio 1.1 (0.8-1.1) Activated Partial Thromboplast Time 22 SEC (24-38) White Blood Count 9.7 x10^3/uL (4.0-11.0) Red Blood Count 3.73 x10^6/uL (3.50-5.40) Hemoglobin 12.0 g/dL (12.0-15.5) Hematocrit 35.6 % (36.0-47.0) Mean Corpuscular Volume 96 fL (79-100) Mean Corpuscular Hemoglobin 32 pg (25-35) Mean Corpuscular Hemoglobin Concent 34 g/dL (31-37) Red Cell Distribution Width 15.0 % (11.5-14.5) Platelet Count 325 x10^3/uL (140-400) Neutrophils (%) (Auto) 68 % (31-73) Lymphocytes (%) (Auto) 21 % (24-48) Monocytes (%) (Auto) 9 % (0-9) Eosinophils (%) (Auto) 2 % (0-3) Basophils (%) (Auto) 0 % (0-3) Neutrophils # (Auto) 6.6 x10^3uL (1.8-7.7) Lymphocytes # (Auto) 2.1 x10^3/uL (1.0-4.8) Monocytes # (Auto) 0.8 x10^3/uL (0.0-1.1) Eosinophils # (Auto) 0.2 x10^3/uL (0.0-0.7) Basophils # (Auto) 0.0 x10^3/uL (0.0-0.2) Sodium Level 139 mmol/L (136-145) Potassium Level 4.1 mmol/L (3.5-5.1) Chloride Level 102 mmol/L (98-107) Carbon Dioxide Level 29 mmol/L (21-32) Anion Gap 8 (6-14) Blood Urea Nitrogen 57 mg/dL (7-20) Creatinine 1.5 mg/dL (0.6-1.0) Estimated GFR (Cockcroft-Gault) 33.2 Glucose Level 103 mg/dL (70-99) Calcium Level 9.7 mg/dL (8.5-10.1) Troponin I Quantitative 0.290 ng/mL (0.000-0.055) Thyroid Stimulating Hormone (TSH) 2.006 uIU/mL (0.358-3.74) Glucose (Fingerstick) 112 mg/dL (70-99) Medications Current Medications Sodium Chloride 500 ml @ 500 mls/hr 1X ONCE IV Last administered on 08/06/18at 16:21; Start 08/06/18 at 16:00; Stop 08/06/18 at 16:59; Status DC Ondansetron HCl (Zofran) 4 mg PRN Q6HRS PRN IV NAUSEA/VOMITING; Start 08/06/18 at 18:15 Morphine Sulfate (Morphine Sulfate) 1 mg PRN Q1HR PRN IV PAIN; Start 08/06/18 at 18:15 Lactulose (Lactulose) 20 gm PRN Q12HR PRN PO CONSTIPATION, 2ND CHOICE; Start at 18:15 Heparin Sodium (Porcine) (Heparin Sodium) 5,000 unit Q12HR SQ ; Start 08/06/18 at 21:00; Stop 08/06/18 at 21:00; Status DC Ascorbic Acid (Vitamin C) 500 mg DAILY PO Last administered on 08/07/18 09:27; Start 08/07/18 at 09:00 Aspirin (Derek Aspirin) 325 mg DAILY PO Last administered on 08/07/18at 09:24; Start 08/07/18 at 09:00 Calcium/Vitamin D (Oscal D 500mg/ 200uts) 1 tab DAILY PO Last administered on 09:25; Start 08/07/18 at 09:00 Docusate Sodium (Colace) 100 mg BID PO Last administered on 08/06/18at 22:16; Start 08/06/18 at 21:00 Ferrous Sulfate (Feosol) 325 mg DAILY PO Last administered on 08/07/18 09:27; Start 08/07/18 at 09:00 Acetaminophen/ Hydrocodone Bitart (Lortab 5/325) 1 tab PRN Q12HRS PRN PO PAIN; Start 08/06/18 at 18:15 Metoprolol Tartrate (Lopressor) 25 mg BID PO Last administered on 08/06/18at 22: 17; Start 08/06/18 at 21:00 Nitroglycerin (Nitrostat) 0.4 mg PRN Q5MIN PRN SL CHEST PAIN; Start 08/06/18 at 18:15 Oxycodone/ Acetaminophen (Percocet 5/325) 1 tab PRN Q6HRS PRN PO PAIN; Start at 18:15 Potassium Chloride (Klor-Con) 10 meq DAILY PO Last administered on 08/07/18at 09: 25; Start 08/07/18 at 09:00 Acetaminophen (Tylenol) 500 mg PRN Q8HRS PRN PO MILD PAIN / TEMP; Start at 19:00 Bisacodyl (Dulcolax Supp) 10 mg PRN DAILY PRN SD CONSTIPATION; Start 08/06/18 at 19:00 Diltiazem HCl (Cardizem 24hr Cd) 180 mg DAILY PO ; Start 08/07/18 at 09:00 Citalopram Hydrobromide (CeleXA) 40 mg DAILY PO Last administered on 08/07/18 09:24; Start 08/07/18 at 09:00 Insulin Human Lispro (HumaLOG) 10 units TIDWMEALS SQ ; Start 08/06/18 at 19:30 Insulin Glargine (Lantus) 34 units DAILYWBKFT SQ Last administered on 08/07/18at 10:18; Start 08/07/18 at 08:00 Losartan Potassium (Cozaar) 50 mg DAILY PO Last administered on 08/07/18 09:26 ; Start 08/07/18 at 09:00 Magnesium Hydroxide (Milk Of Magnesia) 2,400 mg PRN DAILY PRN PO CONSTIPATION, 1ST CHOICE; Start 08/06/18 at 19:00 Meclizine HCl (Antivert) 12.5 mg BID PO Last administered on 08/06/18at 22:16; Start 08/06/18 at 21:00 Metolazone (Zaroxolyn) 5 mg DAILY PO Last administered on 08/07/18at 09:23; Start 08/07/18 at 09:00; Stop 08/07/18 at 10:37; Status DC Multivitamins (Thera M Plus) 1 tab DAILY PO Last administered on 08/07/18 09:23 ; Start 08/07/18 at 09:00 Pantoprazole Sodium (Protonix) 40 mg DAILYAC PO ; Start 08/07/18 at 07:30 Polyethylene Glycol (miraLAX PACKET) 17 gm DAILY PO ; Start 08/07/18 at 09:00 Famotidine (Pepcid) 20 mg DAILY PO Last administered on 08/07/18 09:26; Start 08/07/18 at 09:00 Spironolactone (Aldactone) 25 mg DAILY PO Last administered on 08/07/18 09:27; Start 08/07/18 at 09:00 Warfarin Sodium (Coumadin) 5 mg DAILY16 PO ; Start 08/06/18 at 19:30; Stop at 20:46; Status DC Warfarin Sodium (Coumadin Per Physician) 1 each PRN DAILY PRN MC SEE COMMENTS; Start 08/06/18 at 19:00; Stop 08/06/18 at 20:46; Status DC Bumetanide (Bumex) 4 mg BID94 PO Last administered on 08/07/18at 09:23; Start 08/07/18 at 09:00; Stop 08/07/18 at 10:33; Status DC Isosorbide Mononitrate (Imdur) 60 mg DAILY PO Last administered on 08/07/18at 09: 27; Start 08/07/18 at 09:00 Non-Formulary Medication (Lidocaine (Aspercreme)) 1 each DAILY TP ; Start at 09:00; Status UNV Non-Formulary Medication (Omeprazole ) 40 mg DAILY PO ; Start 08/07/18 at 09:00; Status UNV Multi-Ingredient Ointment (Analgesic [place]) 1 marisol PRN TID PRN TP MUSCLE PAIN; Start 08/06/18 at 20:45; Stop 08/06/18 at 20:45; Status DC Mirtazapine (Remeron) 7.5 mg QHS PO Last administered on 08/06/18at 22:16; Start 08/06/18 at 21:00 Multi-Ingredient Ointment (Analgesic [place]) 1 marisol PRN TID PRN TP MUSCLE PAIN Last administered on 08/06/18at 22:17; Start 08/06/18 at 20:45 Apixaban (Eliquis) 5 mg BID PO Last administered on 08/07/18at 09:26; Start at 21:00 Info (Anti-Coagulation Monitoring By Pharmacy) 1 each PRN DAILY PRN MC SEE COMMENTS Last administered on 08/06/18at 22:54; Start 08/06/18 at 21:00 Acetaminophen (Tylenol) 650 mg PRN Q6HRS PRN PO TEMP > 100.4F; Start 08/07/18 at 09:00 Acetaminophen (Tylenol Supp) 650 mg PRN Q4HRS PRN SD TEMP > 100.4F; Start at 09:00 Bumetanide (Bumex) 2 mg BID94 PO ; Start 08/07/18 at 16:00 Active Scripts Active Reported Doxycycline Hyclate 100 Mg Tablet 100 Mg PO BID Eliquis (Apixaban) 5 Mg Tablet 5 Mg PO BID Aspercreme 10% Cream (Trolamine Salicylate/Aloe Vera) 35.4 Gm Cream..g. 35.4 Gm TP TID PRN PRN Omeprazole 40 Mg Capsule.dr 40 Mg PO DAILY Isosorbide Mononitrate Er (Isosorbide Mononitrate) 60 Mg Tab.er.24h 60 Mg PO DAILY Aspercreme (Lidocaine) 1 Each Adh..patch 1 Each TP DAILY Bumetanide 2 Mg Tablet 4 Mg PO BID Percocet 5-325 Mg Tablet (Oxycodone/Acetaminophen) 1 Each Tablet 1 Tab PO PRN Q6HRS PRN Spironolactone 25 Mg Tablet 25 Mg PO DAILY Potassium Chloride 10 Meq Tablet.er 10 Meq PO DAILY Omeprazole 40 Mg Capsule.dr 40 Mg PO DAILY Warfarin Sodium 5 Mg Tablet 1 Tab PO DAILY NITROGLYCERIN SubLingual (Nitroglycerin) 0.4 Mg Tab.subl 0.4 Mg SL PRN Q5MIN PRN Escitalopram Oxalate 20 Mg Tablet 1 Tab PO DAILY Diltiazem 24HR Cd (Diltiazem Hcl) 180 Mg Cap.er.24h 1 Cap PO DAILY Ascorbic Acid 500 Mg Tablet 500 Mg PO Multivitamins (Multivitamin) 1 Each Tablet 1 Tab PO DAILY Metolazone 5 Mg Tablet 5 Mg PO DAILY Novolog Flexpen (Insulin Aspart) 100 Unit/1 Ml Insuln.pen 10 Unit SQ TIDAC Tresiba Flextouch U-100 (Insulin Degludec) 100 Unit/1 Ml Insuln.pen 34 Unit SQ DAILYWBKFT Ferrous Sulfate 325 Mg Tablet 1 Tab PO DAILY Dulcolax (Bisacodyl) 10 Mg Supp.rect 10 Mg RC PRN DAILY PRN Aspirin 325 Mg Tablet 1 Tab PO DAILY Metoprolol Tartrate 25 Mg Tablet 25 Tab PO BID Acetaminophen 500 Mg Tablet 500 Mg PO PRN Q8HRS PRN Meclizine Hcl 12.5 Mg Tablet 1 Tab PO BID Hydrocodone-Apap 5-325 (Hydrocodone Bit/Acetaminophen) 1 Each Tablet 1 Tab PO Q12HR PRN Stool Softener (Docusate Sodium) 100 Mg Capsule 100 Mg PO BID Losartan Potassium 100 Mg Tablet 50 Mg PO DAILY Vitals/I & O Vital Sign - Last 24 Hours 08/06/18 08/06/18 08/06/18 08/06/18 15:30 16:21 17:05 17:35 Temp 97.8 97.8 Pulse 77 72 84 Resp 22 25 22 B/P (MAP) 139/73 (95) Pulse Ox 97 99 99 99 O2 Delivery Room Air 08/06/18 08/06/18 08/06/18 08/06/18 18:05 18:35 20:00 22:17 Pulse 86 84 84 Resp 31 22 B/P (MAP) 153/87 Pulse Ox 99 99 O2 Delivery Room Air 08/06/18 08/07/18 08/07/18 08/07/18 23:00 03:00 06:55 09:00 Temp 98.3 98.7 97.5 98.3 98.7 97.5 Pulse 71 60 60 60 Resp 16 16 18 B/P (MAP) 108/69 (82) 105/39 (61) 153/47 (82) 153/47 Pulse Ox 100 100 98 O2 Delivery Room Air Room Air Room Air 08/07/18 08/07/18 08/07/18 09:00 09:26 09:27 Pulse 60 60 60 B/P (MAP) 153/47 153/47 153/47 Intake and Output 08/06/18 08/06/18 08/07/18 14:59 22:59 06:59 Intake Total 450 ml Balance 450 ml JAIRO BUSTILLOS III DO Aug 07, 2018 11:18
--- NOTE | 2018-08-07 12:25 | CARD ---
MR#: [id number] Date of Study: 08/07/2018 Ordering Physician: JEFF BUSBY, Referring Physician: WILLY VINCENT Tech: Miryam Estrada JENNIFER APPROVED REPORT EXAM: Two-dimensional and M-mode echocardiogram with Doppler and color Doppler. Other Information Quality : Technically LimitedHR: 74bpm Rhythm : OtherTechnically limited study due to body habitus. INDICATION Atrial Fibrillation 2D DIMENSIONS RVDd2.5 (2.9-3.5cm)Left Atrium(2D)4.7 (1.6-4.0cm) IVSd1.8 (0.7-1.1cm)Aortic Root(2D)3.0 (2.0-3.7cm) LVDd5.0 (3.9-5.9cm)LVOT Diameter1.8 (1.8-2.4cm) PWd1.1 (0.7-1.1cm)LVDs3.1 (2.5-4.0cm) FS (%) 38.2 %SV82.2 ml Aortic Valve AoV Peak Amilcar.110.4cm/sAoV VTI17.3cm AO Peak GR.4.9mmHgLVOT Peak Amilcar.74.4cm/s AO Mean GR.3mmHgAVA (VMAX)1.80cm2 MARIA ELENA (VTI)1.17ff8FM P 1/2 [id number] Mitral Valve MV E Wklpmusx341.5cm/sMV E Peak Gr.6mmHg MV DECEL [id number] A Qfflyssi24.4cm/s MV E Mean Gr.1mmHgE/A Ratio4.9 Pulmonary Valve PV Peak Vieorwwk41.5cm/s Tricuspid Valve TR P. Oenkarth385ld/sRAP GYZUYCOL5seMl TR Peak Gr.21pjEdTWPL29pfMj LEFT VENTRICLE The left ventricle is normal size. Proximal septal thickening is noted. The left ventricular systolic function is normal and the ejection fraction is within normal range. The Ejection Fraction is 50-55% . There is normal LV segmental wall motion. Transmitral Doppler flow pattern is Grade III-reversible restrictive diastolic dysfunction. RIGHT VENTRICLE The right ventricle is normal size. There is normal right ventricular wall thickness. The right ventr icular systolic function is normal. ATRIA The left atrium is mildly dilated. The right atrium is mildly dilated. The interatrial septum is inta ct with no evidence for an atrial septal defect or patent foramen ovale as noted on 2-D or Doppler im aging. AORTIC VALVE The aortic valve is mildly calcified. The aortic valve is trileaflet. Doppler and Color Flow revealed mild aortic regurgitation. There is no significant aortic valvular stenosis. MITRAL VALVE Mitral annular calcification is moderate. There is no evidence of mitral valve prolapse. There is no mitral valve stenosis. Doppler and Color-flow revealed mild to moderate mitral regurgitation. TRICUSPID VALVE The tricuspid valve is normal in structure and function. Doppler and Color Flow revealed mild tricusp id regurgitation. There is moderate pulmonary hypertension. The PA pressure was estimated at 40 mmHg. There is no tricuspid valve prolapse or vegetation. There is no tricuspid valve stenosis. PULMONIC VALVE The pulmonic valve is not well visualized. GREAT VESSELS The aortic root is normal in size. The ascending aorta is normal in size. The IVC is normal in size a nd collapses >50% with inspiration. PERICARDIAL EFFUSION There is no evidence of significant pericardial effusion. Critical Notification Critical Value: No <Conclusion> The left ventricle is normal size. The left ventricular systolic function is normal and the ejection fraction is within normal range. The Ejection Fraction is 50-55%. Proximal septal thickening is noted. There is no significant aortic valvular stenosis. Doppler and Color Flow revealed mild aortic regurgitation. Doppler and Color-flow revealed mild to moderate mitral regurgitation. Doppler and Color Flow revealed mild tricuspid regurgitation. There is moderate pulmonary hypertension. The PA pressure was estimated at 40 mmHg. Signed by : Elijah Myers MD Electronically Approved : 08/07/2018 12:24:38
--- NOTE | 2018-08-07 12:41 | RAD ---
MRI Lumbar Spine without contrast History: Chronic low back pain with worsening leg weakness left greater than right, falls Technique: Multiplanar, multi sequential noncontrast MR imaging was performed of the lumbar spine. Comparison: None Findings: There is old superior L2 compression fracture. There is grade 1 anterior spondylolisthesis at L4-5, negligible anterior spondylolisthesis L5-S1. Conus terminates at L1-L2. There is more advanced degenerative disc disease at L5-S1, mild disc desiccation at more superior levels. There is no significant marrow edema. There are annular tears most notable anteriorly at L2-3-4, anteriorly and posteriorly at L4-5 and L5-S1. There is T2 hyperintense lesion left kidney about 1.6 cm, likely cyst. L1-L2: Spinal canal and neural foramina are adequate. There is mild buckling of the ligamentum flavum. L2-L3: There is mild buckling of the ligamentum flavum and facet degenerative change. There is negligible disc osteophyte complex. Spinal canal is overall adequate. Neural foramina are adequate. L3-L4: There is ddhm-ol-fgjthpmm buckling of the ligamentum flavum and facet degenerative change. There is overall mild attenuation of the thecal sac. There is mild posterior narrowing of the left neural foramen, right neural foramen adequate. L4-L5: There is moderate to severe facet degenerative change and moderate buckling of the ligamentum flavum. There is negligible bulge. There is fairly severe spinal stenosis with limited preserved subarachnoid space, lateral recess stenosis bilaterally with contact of the descending L5 nerve roots greater on the left. Neural foramina are overall adequate. L5-S1: There is moderate buckling of the ligamentum flavum greater on the right. There is mild/moderate facet degenerative change greater on the right. There is mild to moderate narrowing of the far right lateral recess from posteriorly, minimal narrowing of the far left lateral recess from posteriorly. There is mild narrowing of the left neural foramen. There is mild to moderate narrowing of the right neural foramen with contact exiting right L5 nerve root by minimal disc osteophyte complex/protrusion. Impression: 1. There is old superior L2 compression fracture. 2. There is more advanced degenerative disc disease L5-S1. 3. There is severe spinal stenosis L4-5. There is right greater than left L5-S1 neural foramina compromise. 4. There is mild to moderate narrowing of the L5-S1 neural foramen, minimal narrowing of the left L5-S1 and L3-4 neural foramina. 5. There is grade 1 anterior spondylolisthesis at L4-5, negligible anterior spondylolisthesis at L5-S1. There is facet degenerative change greater inferiorly of the lumbar spine. Electronically signed by: Marino Magallanes MD (08/07/2018 12:38 PM) [id number]
--- NOTE | 2018-08-07 12:58 | PDOC2 ---
NEUROLOGY CONSULT Date of Admission Date of Admission DATE: 08/07/18 TIME: 12:43 Reason for Consult Reason for Consult: Altered mental status Referring Physician Referring Physician: Dr. Parra PCP: Dr. Gallegos Source Source: Caregiver (Daughters), Chart review, Patient History of Present Illness History of Present Illness The patient is an 83-year-old right-handed female with history of atrial fibrillation who had sudden onset of all to mental status yesterday. A daughter talk to the patient on the phone at 2 PM and noticed the patient had trouble getting her words out. Last known normal was the evening of 08/05 according to the correction. The patient had no focal motor or sensory prions, just difficulty expressing speech. I was not contacted by the emergency room, but the decision to not use Alteplace was made, because of unknown onset time as well as the fact that the patient is on apixaban. She has been on warfarin or a novel oral anticoagulant since her 20s when she had several bouts of thrombophlebitis. There is no history of prior stroke, seizure, or head injury.The patient has had chronic back pain was some increasing leg weakness in the last few months, and was scheduled for an outpatient lumbar MRI Past Medical History Cardiovascular: AFIB, CAD, CHF, HTN, Hyperlipidemia, Other ( endocarditis, deep vein thrombosis) Pulmonary: Pulmonary embolus, Pneumonia GI: Constipation, GERD, Other ( diarrhea) Heme/Onc: Anemia NOS, Other ( easy bruising) Psych: Depression Musculoskeletal: low back pain Endocrine: Diabetes Past Surgical History Past Surgical History: Appendectomy, Cholecystectomy, Cataract Removal, Total knee replacement ( bilateral), Tonsillectomy ( adenoids), Other ( coronary stents, left leg vein stripping, cardiac catheterization, right knee incision and drainage) Family History Family History: CAD Social History Social History , lives in assisted living, no alcohol or tobacco Current Medications Current Medications Current Medications Sodium Chloride 500 ml @ 500 mls/hr 1X ONCE IV Last administered on 08/06/18at 16:21; Start 08/06/18 at 16:00; Stop 08/06/18 at 16:59; Status DC Ondansetron HCl (Zofran) 4 mg PRN Q6HRS PRN IV NAUSEA/VOMITING; Start 08/06/18 at 18:15 Morphine Sulfate (Morphine Sulfate) 1 mg PRN Q1HR PRN IV PAIN; Start 08/06/18 at 18:15 Lactulose (Lactulose) 20 gm PRN Q12HR PRN PO CONSTIPATION, 2ND CHOICE; Start at 18:15 Heparin Sodium (Porcine) (Heparin Sodium) 5,000 unit Q12HR SQ ; Start 08/06/18 at 21:00; Stop 08/06/18 at 21:00; Status DC Ascorbic Acid (Vitamin C) 500 mg DAILY PO Last administered on 08/07/18 09:27; Start 08/07/18 at 09:00 Aspirin (Derek Aspirin) 325 mg DAILY PO Last administered on 08/07/18 09:24; Start 08/07/18 at 09:00 Calcium/Vitamin D (Oscal D 500mg/ 200uts) 1 tab DAILY PO Last administered on 09:25; Start 08/07/18 at 09:00 Docusate Sodium (Colace) 100 mg BID PO Last administered on 08/06/18at 22:16; Start 08/06/18 at 21:00 Ferrous Sulfate (Feosol) 325 mg DAILY PO Last administered on 08/07/18 09:27; Start 08/07/18 at 09:00 Acetaminophen/ Hydrocodone Bitart (Lortab 5/325) 1 tab PRN Q12HRS PRN PO MODERATE PAIN; Start 08/06/18 at 18:15 Metoprolol Tartrate (Lopressor) 25 mg BID PO Last administered on 08/06/18at 22: 17; Start 08/06/18 at 21:00 Nitroglycerin (Nitrostat) 0.4 mg PRN Q5MIN PRN SL CHEST PAIN; Start 08/06/18 at 18:15 Oxycodone/ Acetaminophen (Percocet 5/325) 1 tab PRN Q6HRS PRN PO SEVERE PAIN; Start 08/06/18 at 18:15 Potassium Chloride (Klor-Con) 10 meq DAILY PO Last administered on 08/07/18 09: 25; Start 08/07/18 at 09:00 Acetaminophen (Tylenol) 500 mg PRN Q8HRS PRN PO MILD PAIN / TEMP; Start at 19:00 Bisacodyl (Dulcolax Supp) 10 mg PRN DAILY PRN NV CONSTIPATION; Start 08/06/18 at 19:00 Diltiazem HCl (Cardizem 24hr Cd) 180 mg DAILY PO ; Start 08/07/18 at 09:00 Citalopram Hydrobromide (CeleXA) 40 mg DAILY PO Last administered on 08/07/18at 09:24; Start 08/07/18 at 09:00 Insulin Human Lispro (HumaLOG) 10 units TIDWMEALS SQ Last administered on 12:39; Start 08/06/18 at 19:30 Insulin Glargine (Lantus) 34 units DAILYWBKFT SQ Last administered on 08/07/18at 10:18; Start 08/07/18 at 08:00 Losartan Potassium (Cozaar) 50 mg DAILY PO Last administered on 08/07/18 09:26 ; Start 08/07/18 at 09:00 Magnesium Hydroxide (Milk Of Magnesia) 2,400 mg PRN DAILY PRN PO CONSTIPATION, 1ST CHOICE; Start 08/06/18 at 19:00 Meclizine HCl (Antivert) 12.5 mg BID PO Last administered on 08/06/18at 22:16; Start 08/06/18 at 21:00 Metolazone (Zaroxolyn) 5 mg DAILY PO Last administered on 08/07/18 09:23; Start 08/07/18 at 09:00; Stop 08/07/18 at 10:37; Status DC Multivitamins (Thera M Plus) 1 tab DAILY PO Last administered on 08/07/18at 09:23 ; Start 08/07/18 at 09:00 Pantoprazole Sodium (Protonix) 40 mg DAILYAC PO ; Start 08/07/18 at 07:30 Polyethylene Glycol (miraLAX PACKET) 17 gm DAILY PO ; Start 08/07/18 at 09:00 Famotidine (Pepcid) 20 mg DAILY PO Last administered on 08/07/18 09:26; Start 08/07/18 at 09:00 Spironolactone (Aldactone) 25 mg DAILY PO Last administered on 08/07/18at 09:27; Start 08/07/18 at 09:00 Warfarin Sodium (Coumadin) 5 mg DAILY16 PO ; Start 08/06/18 at 19:30; Stop at 20:46; Status DC Warfarin Sodium (Coumadin Per Physician) 1 each PRN DAILY PRN MC SEE COMMENTS; Start 08/06/18 at 19:00; Stop 08/06/18 at 20:46; Status DC Bumetanide (Bumex) 4 mg BID94 PO Last administered on 08/07/18at 09:23; Start 08/07/18 at 09:00; Stop 08/07/18 at 10:33; Status DC Isosorbide Mononitrate (Imdur) 60 mg DAILY PO Last administered on 08/07/18at 09: 27; Start 08/07/18 at 09:00 Non-Formulary Medication (Lidocaine (Aspercreme)) 1 each DAILY TP ; Start at 09:00; Status UNV Non-Formulary Medication (Omeprazole ) 40 mg DAILY PO ; Start 08/07/18 at 09:00; Status UNV Multi-Ingredient Ointment (Analgesic [place]) 1 marisol PRN TID PRN TP MUSCLE PAIN; Start 08/06/18 at 20:45; Stop 08/06/18 at 20:45; Status DC Mirtazapine (Remeron) 7.5 mg QHS PO Last administered on 08/06/18at 22:16; Start 08/06/18 at 21:00 Multi-Ingredient Ointment (Analgesic [place]) 1 marisol PRN TID PRN TP MUSCLE PAIN Last administered on 08/06/18at 22:17; Start 08/06/18 at 20:45 Apixaban (Eliquis) 5 mg BID PO Last administered on 08/07/18 09:26; Start at 21:00 Info (Anti-Coagulation Monitoring By Pharmacy) 1 each PRN DAILY PRN MC SEE COMMENTS Last administered on 08/07/18at 11:16; Start 08/06/18 at 21:00 Acetaminophen (Tylenol) 650 mg PRN Q6HRS PRN PO TEMP > 100.4F; Start 08/07/18 at 09:00 Acetaminophen (Tylenol Supp) 650 mg PRN Q4HRS PRN NV TEMP > 100.4F; Start at 09:00 Bumetanide (Bumex) 2 mg BID94 PO ; Start 08/07/18 at 16:00 Active Scripts Active Reported Doxycycline Hyclate 100 Mg Tablet 100 Mg PO BID Eliquis (Apixaban) 5 Mg Tablet 5 Mg PO BID Aspercreme 10% Cream (Trolamine Salicylate/Aloe Vera) 35.4 Gm Cream..g. 35.4 Gm TP TID PRN PRN Omeprazole 40 Mg Capsule.dr 40 Mg PO DAILY Isosorbide Mononitrate Er (Isosorbide Mononitrate) 60 Mg Tab.er.24h 60 Mg PO DAILY Aspercreme (Lidocaine) 1 Each Adh..patch 1 Each TP DAILY Bumetanide 2 Mg Tablet 4 Mg PO BID Percocet 5-325 Mg Tablet (Oxycodone/Acetaminophen) 1 Each Tablet 1 Tab PO PRN Q6HRS PRN Spironolactone 25 Mg Tablet 25 Mg PO DAILY Potassium Chloride 10 Meq Tablet.er 10 Meq PO DAILY Omeprazole 40 Mg Capsule.dr 40 Mg PO DAILY Warfarin Sodium 5 Mg Tablet 1 Tab PO DAILY NITROGLYCERIN SubLingual (Nitroglycerin) 0.4 Mg Tab.subl 0.4 Mg SL PRN Q5MIN PRN Escitalopram Oxalate 20 Mg Tablet 1 Tab PO DAILY Diltiazem 24HR Cd (Diltiazem Hcl) 180 Mg Cap.er.24h 1 Cap PO DAILY Ascorbic Acid 500 Mg Tablet 500 Mg PO Multivitamins (Multivitamin) 1 Each Tablet 1 Tab PO DAILY Metolazone 5 Mg Tablet 5 Mg PO DAILY Novolog Flexpen (Insulin Aspart) 100 Unit/1 Ml Insuln.pen 10 Unit SQ TIDAC Tresiba Flextouch U-100 (Insulin Degludec) 100 Unit/1 Ml Insuln.pen 34 Unit SQ DAILYWBKFT Ferrous Sulfate 325 Mg Tablet 1 Tab PO DAILY Dulcolax (Bisacodyl) 10 Mg Supp.rect 10 Mg RC PRN DAILY PRN Aspirin 325 Mg Tablet 1 Tab PO DAILY Metoprolol Tartrate 25 Mg Tablet 25 Tab PO BID Acetaminophen 500 Mg Tablet 500 Mg PO PRN Q8HRS PRN Meclizine Hcl 12.5 Mg Tablet 1 Tab PO BID Hydrocodone-Apap 5-325 (Hydrocodone Bit/Acetaminophen) 1 Each Tablet 1 Tab PO Q12HR PRN Stool Softener (Docusate Sodium) 100 Mg Capsule 100 Mg PO BID Losartan Potassium 100 Mg Tablet 50 Mg PO DAILY Allergies Allergies: Coded Allergies: Iodinated Contrast- Oral and IV Dye (Verified Allergy, Severe, Anaphylaxis , 3/15/18) adhesive tape (Verified Allergy, Intermediate, 07/19/17) I S O L A T I O N *CONTACT* (Verified Allergy, Unknown, 07/19/17) mrsa meperidine (Verified Adverse Reaction, Intermediate, Vomiting, 07/19/17) ROS Review of System Negative for fever, chills, weight loss, shortness of breath, chest pain, indigestion, hematochezia, melena, and dysuria. Full 14-point review of systems is negative. Physical Exam Physical Examination General: Well-developed, well-nourished white female in no acute distress HEENT: Normocephalic andatraumatic. Temporal arteriespulsatile and nontender. Neck: Supple without bruit, no meningismus Musculoskeletal: Stability:see neurologic. Gait exam:see neurologic. Tone:see neurologic. Strength:see neurologic. Neurological: Mental Status:orientation, memory, attention span/concentration, language, fund of knowledge: she has some dysnomia, non-fluent speech, and receptive deficits as well. Cranial Nerves:Pupils equal and reactive to light, extraocular movements areintact, visual justin are full to confrontation. Facial sensation is normal. There is no facial asymmetry. Vestibulo-ocular reflex is intact. Palate elevates and tongue protrudes in midline. All other cranial related problems are negative except as mentioned before.Reflexes:2+ and symmetric with flexor plantar responses. Motor:5/5 strength with normal tone and bulk. Coordination:Finger-nose finger and [id number]-gc-[id number] testing are normal. Rapid alternating movements and fine finger movements are intact. Gait: Normal, including tandem. Sensory:Normal pinprick, vibration, light touch, proprioception. Vitals VITALS Vital Signs Date Time Temp Pulse Resp B/P (MAP) Pulse Ox O2 Delivery O2 Flow Rate FiO2 08/07/18 09:27 60 153/47 08/07/18 08:00 Room Air 08/07/18 06:55 97.5 18 98 97.5 Labs Labs Laboratory Tests Test 08/06/18 15:47 08/06/18 16:00 08/06/18 16:08 08/06/18 16:25 Stool Occult Blood Negative (NEG) White Blood Count 11.8 x10^3/uL (4.0-11.0) Red Blood Count 4.05 x10^6/uL (3.50-5.40) Hemoglobin 13.2 g/dL (12.0-15.5) Hematocrit 39.1 % (36.0-47.0) Mean Corpuscular Volume 96 fL (79-100) Mean Corpuscular Hemoglobin 33 pg (25-35) Mean Corpuscular Hemoglobin Concent 34 g/dL (31-37) Red Cell Distribution Width 15.0 % (11.5-14.5) Platelet Count 367 x10^3/uL (140-400) Neutrophils (%) (Auto) 74 % (31-73) Lymphocytes (%) (Auto) 17 % (24-48) Monocytes (%) (Auto) 7 % (0-9) Eosinophils (%) (Auto) 1 % (0-3) Basophils (%) (Auto) 1 % (0-3) Neutrophils # (Auto) 8.8 x10^3uL (1.8-7.7) Lymphocytes # (Auto) 1.9 x10^3/uL (1.0-4.8) Monocytes # (Auto) 0.9 x10^3/uL (0.0-1.1) Eosinophils # (Auto) 0.2 x10^3/uL (0.0-0.7) Basophils # (Auto) 0.1 x10^3/uL (0.0-0.2) Sodium Level 140 mmol/L (136-145) Potassium Level 4.5 mmol/L (3.5-5.1) Chloride Level 100 mmol/L (98-107) Carbon Dioxide Level 29 mmol/L (21-32) Anion Gap 11 (6-14) Blood Urea Nitrogen 61 mg/dL (7-20) Creatinine 1.6 mg/dL (0.6-1.0) Estimated GFR (Cockcroft-Gault) 30.9 BUN/Creatinine Ratio 38 (6-20) Glucose Level 99 mg/dL (70-99) Lactic Acid Level 2.1 mmol/L (0.4-2.0) Calcium Level 10.3 mg/dL (8.5-10.1) Magnesium Level 2.2 mg/dL (1.8-2.4) Total Bilirubin 0.5 mg/dL (0.2-1.0) Aspartate Amino Transf (AST/SGOT) 17 U/L (15-37) Alanine Aminotransferase (ALT/SGPT) 22 U/L (14-59) Alkaline Phosphatase 107 U/L (46-116) Creatine Kinase 28 U/L (26-192) Creatine Kinase MB (Mass) 1.5 ng/mL (0.0-3.6) Creatine Kinase MB Relative Index % (0-4) Troponin I Quantitative 0.385 ng/mL (0.000-0.055) Total Protein 7.5 g/dL (6.4-8.2) Albumin 2.9 g/dL (3.4-5.0) Albumin/Globulin Ratio 0.6 (1.0-1.7) Urine Collection Type U cath Urine Color Yellow Urine Clarity Clear Urine pH 7.5 Urine Specific Castell 1.010 Urine Protein Negative mg/dL (NEG-TRACE) Urine Glucose (UA) Negative mg/dL (NEG) Urine Ketones (Stick) Negative mg/dL (NEG) Urine Blood Negative (NEG) Urine Nitrite Negative (NEG) Urine Bilirubin Negative (NEG) Urine Urobilinogen Dipstick 0.2 mg/dL (0.2 mg/dL) Urine Leukocyte Esterase Negative (NEG) Urine RBC 0 /HPF (0-2) Urine WBC 0 /HPF (0-4) Urine Transitional Epithelial Cells Occ /LPF Urine Bacteria 0 /HPF (0-FEW) Urine Mucus Slight /LPF Influenza Type A Antigen Negative (NEGATIVE) Influenza Type B Antigen Negative (NEGATIVE) Test 08/06/18 16:40 08/07/18 03:50 08/07/18 07:35 08/07/18 12:28 Prothrombin Time 13.6 SEC (11.7-14.0) Prothromb Time International Ratio 1.1 (0.8-1.1) Activated Partial Thromboplast Time 22 SEC (24-38) White Blood Count 9.7 x10^3/uL (4.0-11.0) Red Blood Count 3.73 x10^6/uL (3.50-5.40) Hemoglobin 12.0 g/dL (12.0-15.5) Hematocrit 35.6 % (36.0-47.0) Mean Corpuscular Volume 96 fL (79-100) Mean Corpuscular Hemoglobin 32 pg (25-35) Mean Corpuscular Hemoglobin Concent 34 g/dL (31-37) Red Cell Distribution Width 15.0 % (11.5-14.5) Platelet Count 325 x10^3/uL (140-400) Neutrophils (%) (Auto) 68 % (31-73) Lymphocytes (%) (Auto) 21 % (24-48) Monocytes (%) (Auto) 9 % (0-9) Eosinophils (%) (Auto) 2 % (0-3) Basophils (%) (Auto) 0 % (0-3) Neutrophils # (Auto) 6.6 x10^3uL (1.8-7.7) Lymphocytes # (Auto) 2.1 x10^3/uL (1.0-4.8) Monocytes # (Auto) 0.8 x10^3/uL (0.0-1.1) Eosinophils # (Auto) 0.2 x10^3/uL (0.0-0.7) Basophils # (Auto) 0.0 x10^3/uL (0.0-0.2) Sodium Level 139 mmol/L (136-145) Potassium Level 4.1 mmol/L (3.5-5.1) Chloride Level 102 mmol/L (98-107) Carbon Dioxide Level 29 mmol/L (21-32) Anion Gap 8 (6-14) Blood Urea Nitrogen 57 mg/dL (7-20) Creatinine 1.5 mg/dL (0.6-1.0) Estimated GFR (Cockcroft-Gault) 33.2 Glucose Level 103 mg/dL (70-99) Calcium Level 9.7 mg/dL (8.5-10.1) Troponin I Quantitative 0.290 ng/mL (0.000-0.055) Thyroid Stimulating Hormone (TSH) 2.006 uIU/mL (0.358-3.74) Glucose (Fingerstick) 112 mg/dL (70-99) 173 mg/dL (70-99) Laboratory Tests Test 08/06/18 15:47 08/06/18 16:00 08/06/18 16:08 08/06/18 16:25 Stool Occult Blood Negative (NEG) White Blood Count 11.8 x10^3/uL (4.0-11.0) Red Blood Count 4.05 x10^6/uL (3.50-5.40) Hemoglobin 13.2 g/dL (12.0-15.5) Hematocrit 39.1 % (36.0-47.0) Mean Corpuscular Volume 96 fL (79-100) Mean Corpuscular Hemoglobin 33 pg (25-35) Mean Corpuscular Hemoglobin Concent 34 g/dL (31-37) Red Cell Distribution Width 15.0 % (11.5-14.5) Platelet Count 367 x10^3/uL (140-400) Neutrophils (%) (Auto) 74 % (31-73) Lymphocytes (%) (Auto) 17 % (24-48) Monocytes (%) (Auto) 7 % (0-9) Eosinophils (%) (Auto) 1 % (0-3) Basophils (%) (Auto) 1 % (0-3) Neutrophils # (Auto) 8.8 x10^3uL (1.8-7.7) Lymphocytes # (Auto) 1.9 x10^3/uL (1.0-4.8) Monocytes # (Auto) 0.9 x10^3/uL (0.0-1.1) Eosinophils # (Auto) 0.2 x10^3/uL (0.0-0.7) Basophils # (Auto) 0.1 x10^3/uL (0.0-0.2) Sodium Level 140 mmol/L (136-145) Potassium Level 4.5 mmol/L (3.5-5.1) Chloride Level 100 mmol/L (98-107) Carbon Dioxide Level 29 mmol/L (21-32) Anion Gap 11 (6-14) Blood Urea Nitrogen 61 mg/dL (7-20) Creatinine 1.6 mg/dL (0.6-1.0) Estimated GFR (Cockcroft-Gault) 30.9 BUN/Creatinine Ratio 38 (6-20) Glucose Level 99 mg/dL (70-99) Lactic Acid Level 2.1 mmol/L (0.4-2.0) Calcium Level 10.3 mg/dL (8.5-10.1) Magnesium Level 2.2 mg/dL (1.8-2.4) Total Bilirubin 0.5 mg/dL (0.2-1.0) Aspartate Amino Transf (AST/SGOT) 17 U/L (15-37) Alanine Aminotransferase (ALT/SGPT) 22 U/L (14-59) Alkaline Phosphatase 107 U/L (46-116) Creatine Kinase 28 U/L (26-192) Creatine Kinase MB (Mass) 1.5 ng/mL (0.0-3.6) Creatine Kinase MB Relative Index % (0-4) Troponin I Quantitative 0.385 ng/mL (0.000-0.055) Total Protein 7.5 g/dL (6.4-8.2) Albumin 2.9 g/dL (3.4-5.0) Albumin/Globulin Ratio 0.6 (1.0-1.7) Urine Collection Type U cath Urine Color Yellow Urine Clarity Clear Urine pH 7.5 Urine Specific Castell 1.010 Urine Protein Negative mg/dL (NEG-TRACE) Urine Glucose (UA) Negative mg/dL (NEG) Urine Ketones (Stick) Negative mg/dL (NEG) Urine Blood Negative (NEG) Urine Nitrite Negative (NEG) Urine Bilirubin Negative (NEG) Urine Urobilinogen Dipstick 0.2 mg/dL (0.2 mg/dL) Urine Leukocyte Esterase Negative (NEG) Urine RBC 0 /HPF (0-2) Urine WBC 0 /HPF (0-4) Urine Transitional Epithelial Cells Occ /LPF Urine Bacteria 0 /HPF (0-FEW) Urine Mucus Slight /LPF Influenza Type A Antigen Negative (NEGATIVE) Influenza Type B Antigen Negative (NEGATIVE) Test 08/06/18 16:40 08/07/18 03:50 08/07/18 07:35 08/07/18 12:28 Prothrombin Time 13.6 SEC (11.7-14.0) Prothromb Time International Ratio 1.1 (0.8-1.1) Activated Partial Thromboplast Time 22 SEC (24-38) White Blood Count 9.7 x10^3/uL (4.0-11.0) Red Blood Count 3.73 x10^6/uL (3.50-5.40) Hemoglobin 12.0 g/dL (12.0-15.5) Hematocrit 35.6 % (36.0-47.0) Mean Corpuscular Volume 96 fL (79-100) Mean Corpuscular Hemoglobin 32 pg (25-35) Mean Corpuscular Hemoglobin Concent 34 g/dL (31-37) Red Cell Distribution Width 15.0 % (11.5-14.5) Platelet Count 325 x10^3/uL (140-400) Neutrophils (%) (Auto) 68 % (31-73) Lymphocytes (%) (Auto) 21 % (24-48) Monocytes (%) (Auto) 9 % (0-9) Eosinophils (%) (Auto) 2 % (0-3) Basophils (%) (Auto) 0 % (0-3) Neutrophils # (Auto) 6.6 x10^3uL (1.8-7.7) Lymphocytes # (Auto) 2.1 x10^3/uL (1.0-4.8) Monocytes # (Auto) 0.8 x10^3/uL (0.0-1.1) Eosinophils # (Auto) 0.2 x10^3/uL (0.0-0.7) Basophils # (Auto) 0.0 x10^3/uL (0.0-0.2) Sodium Level 139 mmol/L (136-145) Potassium Level 4.1 mmol/L (3.5-5.1) Chloride Level 102 mmol/L (98-107) Carbon Dioxide Level 29 mmol/L (21-32) Anion Gap 8 (6-14) Blood Urea Nitrogen 57 mg/dL (7-20) Creatinine 1.5 mg/dL (0.6-1.0) Estimated GFR (Cockcroft-Gault) 33.2 Glucose Level 103 mg/dL (70-99) Calcium Level 9.7 mg/dL (8.5-10.1) Troponin I Quantitative 0.290 ng/mL (0.000-0.055) Thyroid Stimulating Hormone (TSH) 2.006 uIU/mL (0.358-3.74) Glucose (Fingerstick) 112 mg/dL (70-99) 173 mg/dL (70-99) Images Images CT head without IV contrast No pathologic extra-axial or intra-axial fluid collection. Mild diffuse atrophy with ex vacuo dilation of the ventricles. The basal cisterns are within normal limits. No acute intracranial bleed. Mild periventricular low-attenuation of the right matter noted. No focal loss of vila-white differentiation. Orbits are within normal limits. No large scalp hematoma. No acute calvarial fractures. The paranasal sinuses and mastoid air cells are clear. Atherosclerotic plaque is seen in the bilateral cavernous segments of the ICA. IMPRESSION: 1. No acute intracranial bleed or calvarial fracture. 2. Mild to moderate atrophy with white matter changes likely secondary to chronic microvascular ischemic disease. Indication:fall- change in MS, PRIOR CT HEAD SENT TECHNIQUE: CT of the cervical spine without IV contrast with multiplanar reformats. COMPARISON:None FINDINGS: The cervical spine is in normal anatomic alignment. Atlantoaxial joint interval is preserved with mild degenerative changes. No compression deformities. Facet joints are in normal anatomic alignment with multilevel moderate facet arthropathy. Severe intervertebral disc space narrowing with endplate irregularities and anterior bridging osteophyte formation seen at C4-C5, C5-C6 and C6-C7. No acute fractures. Noncontrast appearance of the neck soft tissue is within normal limits. Moderate atherosclerotic disease seen in the right carotid bulb. Clear lung apices. IMPRESSION: 1. No acute fractures. 2. Advanced degenerative disc disease at C4-C7. Multilevel moderate facet arthropathy. CT THORACIC SPINE WO CONTRAST Indication: RECENT FALL, BACK PAIN Technique: Noncontrast CT imaging was performed of the thoracic spine, multiplanar reconstruction images submitted. One or more of the following individualized dose reduction techniques were utilized for this examination: 1. Automated exposure control 2. Adjustment of the mA and/or kV according to patient size 3. Use of iterative reconstruction technique. Comparison: None Findings: Thoracic vertebral body stature is overall maintained. There is bone demineralization. No acute thoracic spine fracture is identified by CT. There is wall thickening of the distal esophagus, mild dilatation. Lingula small right upper lobe pulmonary nodules, largest 0.5 cm axial image 41 series 3. There is superior L2 compression deformity as seen on previous 2017 CT abdomen pelvis exam. IMPRESSION: 1. No acute thoracic spine fracture is identified by CT. 2. There is nonspecific wall thickening of the distal esophagus, mild dilatation. 3. There are some small right upper lobe pulmonary nodules with largest about 0.5 cm not fully evaluated. If there are increased risk factors for neoplasm, dedicated chest CT to completely evaluate the lung parenchyma may be beneficial. Regarding the visualized nodules, no additional follow-up is needed if low risk factors for neoplasm, optional 12 month follow-up if increased risk factors as per revised Fleischner guidelines. CT lumbar spine without IV contrast with multiplanar reformats. COMPARISON: CT abdomen pelvis from 12/31/2016 FINDINGS: Lumbar spine is in normal anatomic alignment. There are 5 lumbar type vertebral bodies. Chronic compression deformity seen of the abdomen vertebral body with no retropulsion the spinal canal. No new compression deformity seen. Facet joints are in normal anatomic alignment with multilevel moderate facet arthropathy. Bilateral SI joint osteoarthritis. No acute fractures. L5-S1 moderate degenerative disc disease seen. IMPRESSION: 1. No acute fractures or compression deformities. 2. Chronic L2 compression deformity dating back to December 2016. Fibula multilevel facet arthropathy with moderate to advanced degenerative disc disease at L4-L5. MRI Lumbar Spine without contrast History: Chronic low back pain with worsening leg weakness left greater than right, falls Technique: Multiplanar, multi sequential noncontrast MR imaging was performed of the lumbar spine. Comparison: None Findings: There is old superior L2 compression fracture. There is grade 1 anterior spondylolisthesis at L4-5, negligible anterior spondylolisthesis L5-S1. Conus terminates at L1-L2. There is more advanced degenerative disc disease at L5-S1, mild disc desiccation at more superior levels. There is no significant marrow edema. There are annular tears most notable anteriorly at L2-3-4, anteriorly and posteriorly at L4-5 and L5-S1. There is T2 hyperintense lesion left kidney about 1.6 cm, likely cyst. L1-L2: Spinal canal and neural foramina are adequate. There is mild buckling of the ligamentum flavum. L2-L3: There is mild buckling of the ligamentum flavum and facet degenerative change. There is negligible disc osteophyte complex. Spinal canal is overall adequate. Neural foramina are adequate. L3-L4: There is [id number] buckling of the ligamentum flavum and facet degenerative change. There is overall mild attenuation of the thecal sac. There is mild posterior narrowing of the left neural foramen, right neural foramen adequate. L4-L5: There is moderate to severe facet degenerative change and moderate buckling of the ligamentum flavum. There is negligible bulge. There is fairly severe spinal stenosis with limited preserved subarachnoid space, lateral recess stenosis bilaterally with contact of the descending L5 nerve roots greater on the left. Neural foramina are overall adequate. L5-S1: There is moderate buckling of the ligamentum flavum greater on the right. There is mild/moderate facet degenerative change greater on the right. There is mild to moderate narrowing of the far right lateral recess from posteriorly, minimal narrowing of the far left lateral recess from posteriorly. There is mild narrowing of the left neural foramen. There is mild to moderate narrowing of the right neural foramen with contact exiting right L5 nerve root by minimal disc osteophyte complex/protrusion. Impression: 1. There is old superior L2 compression fracture. 2. There is more advanced degenerative disc disease L5-S1. 3. There is severe spinal stenosis L4-5. There is right greater than left L5-S1 neural foramina compromise. 4. There is mild to moderate narrowing of the L5-S1 neural foramen, minimal narrowing of the left L5-S1 and L3-4 neural foramina. 5. There is grade 1 anterior spondylolisthesis at L4-5, negligible anterior spondylolisthesis at L5-S1. There is facet degenerative change greater inferiorly of the lumbar spine. Assessment/Plan Assessment/Plan Impression: Clinically left hemisphere stroke with aphasia, receptive and expressive components. No sign of motor involvement. Usually these strokes are cardio- embolic, therefore the patient is a failure on apixaban. Lumbar spine disease: old superior L2 compression fracture, advanced degenerative disc disease L5-S1, severe spinal stenosis L4-5, right greater than left L5-S1 neural foramina compromise, mild to moderate narrowing of the L5 -S1 neural foramen, minimal narrowing of the left L5-S1 and L3-4 neural foramina , grade 1 anterior spondylolisthesis at L4-5, negligible anterior spondylolisthesis at L5-S1. There is facet degenerative change greater inferiorly of the lumbar spine. Cervical spondylosis: degenerative disc disease at C4-C7 Recommendations: MRI of the brain MRI of the lumbar spine, already done Carotid Doppler studies Echocardiogram Cardiology consultation regarding elevated troponin levels and fibrillation Speech evaluation, swallowing and cognitive Rehabilitation modalities. Note that she was started on warfarin, Now back on apixaban. Disagree with starting aspirin, risks outweigh benefits of combination of aspirin and Apixaban Check lipids, start statin depending on results Fully discussed with patience daughters. Thank you for letting me help with the patient's care. LIONEL OGLESBY MD Aug 07, 2018 12:58
[2018-08-07 14:00] VITALS: BP 104/46
--- NOTE | 2018-08-07 14:20 | RAD ---
EXAM: Carotid Doppler sonogram. HISTORY: Stroke. TECHNIQUE: Barrett scale and color Doppler sonographic evaluation of the neck with spectral waveform analysis was performed and static images are submitted for review. FINDINGS: There is mild atherosclerotic plaque within the carotid bifurcations. The peak systolic velocity within the right common carotid artery is 59 cm/sec. The peak systolic velocity within the right internal carotid artery is 55 cm/sec and the end diastolic velocity within the right internal carotid artery is 16 cm/sec. The right ICA/CCA ratio is 1.25. The peak systolic velocity within the left common carotid artery is 80 cm/sec. The peak systolic velocity within the left internal carotid artery is 107 cm/sec and the end diastolic velocity within the left internal carotid artery is 27 cm/sec. The left ICA/CCA ratio is 1.42. There is normal antegrade flow within both vertebral arteries. IMPRESSION: No Doppler evidence of hemodynamically significant stenosis within the vertebral arteries or internal carotid arteries. PQRS Compliance Statement - Stenosis calculations for CT, MR and conventional angiography are based upon measurement of the distal ICA diameter in accordance with the NASCET methodology. Stenosis calculations for carotid ultrasound studies are derived from validated velocity criteria which are known to correlate with the NASCET methodology. Electronically signed by: Mine Guajardo MD (08/07/2018 2:17 PM) [place] [id number]
--- NOTE | 2018-08-07 15:51 | NUR ---
SW following pt. Spoke with Maite via phone about PT recommendation for Acute rehab. Discussed options ([facility], [facility], [facility], [facility] and [facility]) and daughter chose [facility]. SW phoned and faxed referral. Pt acceptance and admission pending. Will continue to follow.
[2018-08-07] MEDS: BUMETANIDE 1 MG TABLET. PO SCH (16:00)
--- NOTE | 2018-08-07 16:03 | RAD ---
MRI Brain without contrast History: Generalized weakness, confusion Technique: Multiplanar, multisequential noncontrast MR imaging was performed of the brain. Comparison: None Findings: There is 3.2 cm AP by 2.5 cm transverse focus of restricted diffusion of the left temporal lobe with cortical involvement. There is a separate small focus anteriorly of the left temporal cortical surface. Ventricular size is within normal limits. There is moderate supratentorial atrophy more greatly affecting parietal lobes. There is scattered mild T2 and FLAIR hyperintense signal abnormality of the supratentorial parenchyma bilaterally. There are old lacunar infarcts of the right centrum semiovale and left basal ganglia, also of the right cerebellum. There is also mild to moderate T2 and FLAIR hyperintense signal abnormality of the ju. There is preservation of the major arterial flow voids at the skull base, small right intradural vertebral artery flow-void. There has been lens surgery bilaterally, slightly disconjugate gaze. There is patchy minimal ethmoid air cell mucosal thickening. Mastoid air cells are aerated. Cerebellar tonsils are normal in location. There is no significant abnormality of the pineal gland or pituitary gland. There is preserved marrow signal of the clivus. There is degenerative disc disease at the visualized C4-5 level. Impression: 1. There is a recent acute or early subacute infarct of the left temporal lobe with cortical involvement, separate small focus just anteriorly. There are old lacunar infarcts as stated. Other scattered nonspecific T2 and FLAIR hyperintense signal abnormality is probably due to chronic microvascular ischemic disease. 2. There is moderate supratentorial atrophy more greatly affecting the parietal lobes. FOR INTERNAL CODING PURPOSES Critical result: Findings discussed with patient's nurse Jeremias at 08/07/2018 3:56 PM. RESULT CODE: (C) Electronically signed by: Marino Magallanes MD (08/07/2018 4:00 PM) [email or web address]
[2018-08-07 17:20] VITALS: BP 105/40
[2018-08-07 19:32] VITALS: BP 110/38
[2018-08-07] MEDS: oxyCODONE/APAP 5/325 1 TAB TABLET PO PRN (21:12)
[2018-08-07] MEDS: MIRTAZAPINE 7.5 MG TABLET. PO SCH (21:12)
[2018-08-07 23:30] VITALS: BP 97/46
[2018-08-08] VITALS (14 sets, daily range): BP systolic 93–148; BP diastolic 39–101
[2018-08-08] MEDS: POLYETHYLENE GLYCOL 3350 17 GM PACKET. PO SCH (08:54)
[2018-08-08] MEDS: CITALOPRAM 20 MG TABLET. PO SCH (08:55)
[2018-08-08 08:56] LABS: BASO # 0.1 x10^3/uL (0.0-0.2); BASO % 1 % (0-3); EOS # 0.3 x10^3/uL (0.0-0.7); EOS % 3 % (0-3); HEMATOCRIT 38.9 % (36.0-47.0); HEMOGLOBIN 13.2 g/dL (12.0-15.5); LYMPH # 1.5 x10^3/uL (1.0-4.8); LYMPH % 18 % (24-48); MEAN CORPUSCULAR HEMOGLOBIN 33 pg (25-35); MEAN CORPUSCULAR HGB CONC 34 g/dL (31-37); MEAN CORPUSCULAR VOLUME 97 fL (79-100); MONO # 0.7 x10^3/uL (0.0-1.1); MONO % 8 % (0-9); NEUT # 5.9 x10^3uL (1.8-7.7); NEUT % 71 % (31-73); PLATELET COUNT 324 x10^3/uL (140-400); RED CELL DISTRIBUTION WIDTH 14.6 % (11.5-14.5); WHITE BLOOD COUNT 8.3 x10^3/uL (4.0-11.0)
[2018-08-08] MEDS: POTASSIUM CHLORIDE 10 MEQ TABLET.ER. PO SCH (08:56)
[2018-08-08] MEDS: ASPIRIN 325 MG TABLET PO SCH (08:56)
[2018-08-08] MEDS: FERROUS SULFATE 325 MG TABLET. PO SCH (08:56)
[2018-08-08] MEDS: METOPROLOL TART IMMED RELEASE 25 MG TABLET. PO SCH ×2 (08:57→21:00)
[2018-08-08] MEDS: FAMOTIDINE 20 MG TABLET. PO SCH (08:57)
[2018-08-08] MEDS: MECLIZINE HCL 12.5 MG TABLET. PO SCH ×2 (08:57→21:38)
[2018-08-08] MEDS: ASCORBIC ACID 500 MG TABLET PO SCH (08:57)
[2018-08-08] MEDS: MULTIVITAMIN with MINERAL TABLET. PO SCH (08:57)
[2018-08-08] MEDS: CALCIUM CARB/VIT D3 500/200 TABLET. PO SCH (08:57)
[2018-08-08] MEDS: APIXABAN 5 MG TABLET. PO SCH (08:57)
[2018-08-08] MEDS: DOCUSATE SODIUM 100 MG CAPSULE. PO SCH ×2 (08:57→21:39)
[2018-08-08] MEDS: SPIRONOLACTONE 25 MG TABLET PO SCH (08:58)
[2018-08-08] MEDS: BUMETANIDE 1 MG TABLET. PO SCH (08:58)
[2018-08-08] MEDS: PANTOPRAZOLE 40 MG TABLET.DR. PO SCH (08:58)
[2018-08-08] MEDS: INSULIN LISPRO 300 UNITS/3 ML INSULN.PEN. SQ SCH ×3 (09:00→17:00)
[2018-08-08] MEDS: INSULIN GLARGINE 300 UNITS/3 ML INSULN.PEN. SQ SCH (09:00)
[2018-08-08 09:20] LABS: CALCIUM 9.9 mg/dL (8.5-10.1); CREATININE 1.6 mg/dL (0.6-1.0); GFR 30.9; POTASSIUM 4.1 mmol/L (3.5-5.1)
[2018-08-08 09:22] LABS: CHOLESTEROL/HDL RATIO 7.6
--- NOTE | 2018-08-08 10:27 | NUR ---
IP: Pt now has 2 negative mrsa screens and no open wounds. Contact precautions may be discontinued.
--- NOTE | 2018-08-08 11:12 | PDOC ---
JEFF BUSBY SQUEAK [employer] REPAIRER 08/08/18 1111: CARDIO Progress Notes Date and Time Date of Service 08/08/2018 Time of Evaluation 1050 Subjective Subjective: Other (unresponsive) Vitals Vitals Vital Signs Date Time Temp Pulse Resp B/P (MAP) Pulse Ox O2 Delivery O2 Flow Rate FiO2 08/08/18 08:57 97 140/84 08/08/18 06:55 97.6 18 98 Room Air 97.6 Weight Weight [ ] Input and Output Intake and Output Intake and Output 08/08/18 07:00 Intake Total 600 ml Balance 600 ml Intake Oral 600 ml # Voids 6 # Bowel Movements 2 Laboratory Labs Laboratory Tests Test 08/07/18 12:28 08/07/18 16:21 08/07/18 20:50 08/08/18 07:19 Glucose (Fingerstick) 173 mg/dL (70-99) 72 mg/dL (70-99) 161 mg/dL (70-99) 110 mg/dL (70-99) Test 08/08/18 07:40 White Blood Count 8.3 x10^3/uL (4.0-11.0) Red Blood Count 4.00 x10^6/uL (3.50-5.40) Hemoglobin 13.2 g/dL (12.0-15.5) Hematocrit 38.9 % (36.0-47.0) Mean Corpuscular Volume 97 fL (79-100) Mean Corpuscular Hemoglobin 33 pg (25-35) Mean Corpuscular Hemoglobin Concent 34 g/dL (31-37) Red Cell Distribution Width 14.6 % (11.5-14.5) Platelet Count 324 x10^3/uL (140-400) Neutrophils (%) (Auto) 71 % (31-73) Lymphocytes (%) (Auto) 18 % (24-48) Monocytes (%) (Auto) 8 % (0-9) Eosinophils (%) (Auto) 3 % (0-3) Basophils (%) (Auto) 1 % (0-3) Neutrophils # (Auto) 5.9 x10^3uL (1.8-7.7) Lymphocytes # (Auto) 1.5 x10^3/uL (1.0-4.8) Monocytes # (Auto) 0.7 x10^3/uL (0.0-1.1) Eosinophils # (Auto) 0.3 x10^3/uL (0.0-0.7) Basophils # (Auto) 0.1 x10^3/uL (0.0-0.2) Sodium Level 140 mmol/L (136-145) Potassium Level 4.1 mmol/L (3.5-5.1) Chloride Level 101 mmol/L (98-107) Carbon Dioxide Level 30 mmol/L (21-32) Anion Gap 9 (6-14) Blood Urea Nitrogen 52 mg/dL (7-20) Creatinine 1.6 mg/dL (0.6-1.0) Estimated GFR (Cockcroft-Gault) 30.9 Glucose Level 120 mg/dL (70-99) Calcium Level 9.9 mg/dL (8.5-10.1) Triglycerides Level 205 mg/dL (0-150) Cholesterol Level 257 mg/dL (0-200) LDL Cholesterol, Calculated 182 mg/dL (0-100) VLDL Cholesterol, Calculated 41 mg/dL (0-40) Non-HDL Cholesterol Calculated 223 mg/dL (0-129) HDL Cholesterol 34 mg/dL (40-60) Cholesterol/HDL Ratio 7.6 Microbiology Micro Microbiology 08/06/18 Blood Culture - Preliminary, Resulted NO GROWTH AFTER 1 DAY Physical Exam HEENT: Neck Supple W Full Motion Chest: Symmetric LUNGS: Clear to Auscultation Heart: murmurs (3/6 systolic murmur to LLS border), irregularly irregular ( AFIB no significant ectopies) Abdomen: Other (soft) Extremities: No Calf Tenderness, Other (trace LE edema with venous dermatitis) Neurology: other (stupor) Assessment Assessment Around 1045 Pt called to go to the bathroom, she was sat up in bed by staff then fell back to bed and was unresponsive. She does currently moans with sternal rub. BP stable, AFIB rate controlled and no significant ectopies otherwise. No hypoxia. No diuretics were given and cardizem and metoprolol were given. Narcan was received as well.Now transferring to ICU with stat CT head. 1. Acute CVA and now encephalopatic/stupor: suspect cardioembolic. MRI revealed left temporal lobe with cortical involvement 2. Elevated troponin: suspect CVA contributing and renal insufficiency.Type 2. Peaked at 0.38, no cardiac symptoms. EKG AFIB no acute ST-T wave changes 3. Recent mechanical Fall: no significant traumatic injury 4. Recent coumadin induced coagulopathy: Warfarin was taken off and off for about 5 days per daughter and was transitioned to eliquis. INR nml currently 5. 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 Chronic AFIB: rate controlled 7. CAD: past stents 8. HTN; controlled 9. HLP: not on goal. 10. CKD3 11. Barrets esophagus? Recommendations 1. CT head pending. Accurate med list noted changes as below 2. Currently on PO cardizem/metoprolol for rate control and may change to IV tonight pending mentation 3. Will note CT head prior to continuing eliquis. 4. Hold ARB for now with well controlled BP. Will change PO rate controlled agents to IV pending mentation and PO status 5. DC diuretics for now and will place on PRN dosing. Start on lipitor once PO allowed. 6. Will reeval needs pending neurological status. 7. Supportive care. LA AGARWAL MD 08/09/18 0747: CARDIO Progress Notes Assessment Assessment Patient seen and examined 08/08/18. Agree with GEOPHYSICAL SUPPORT SPECIALIST's assessment and plan. 2-D echo showed LVEF 50-55% Slight troponin elevation probably demand ischemia Permanent atrial fibrillation rate controlled Neurology following for CVA JEFF BUSBY APRN Aug 08, 2018 11:11 LA AGARWAL MD Aug 09, 2018 07:47
--- NOTE | 2018-08-08 11:22 | RAD ---
CT HEAD WO CONTRAST History: Neurological changes in the last 20 minutes, recent stroke Comparison: MRI brain exam August 07, 2018 and August 06, [address] exam Technique: Noncontrast CT imaging was performed of the head. Exposure: One or more of the following individualized dose reduction techniques were utilized for this examination: 1. Automated exposure control 2. Adjustment of the mA and/or kV according to patient size 3. Use of iterative reconstruction technique. Findings: There is motion degradation. There is no evidence of acute intracranial hemorrhage. There is again moderate supratentorial atrophy. Patient has a known recent left temporal infarct as better seen on MRI, some corresponding ill-defined low-density in this region. Ventricular size is stable. There is no new midline shift or intra-axial mass effect. Visualized paranasal sinuses and mastoid air cells are aerated. There is atherosclerotic calcification of the carotid siphons bilaterally. Impression: 1. There is no evidence of acute intracranial hemorrhage. There is some ill-defined low-density of the left temporal lobe at site of known recent infarct. There is moderate supratentorial atrophy. Electronically signed by: Marion Magallanes MD (08/08/2018 11:19 AM) [facility]
[2018-08-08] MEDS ORDERED: NALOXONE 0.4 MG/ML VIAL. IV ONE (11:30)
--- NOTE | 2018-08-08 11:45 | PN ---
DATE: 08/08/2018 CHIEF COMPLAINT: Mental status change. SUBJECTIVE AND OBJECTIVE: The patient is a pleasant middle-aged female who we have been seeing for the past few days with stroke symptoms. She has been undergoing routine care for her stroke. She has had some mild expressive aphasia and dysarthria and confusion, but has been doing relatively well. This morning, I saw her, she was little dizzy. I walked up to talk to the nurse and 5 minutes later, she was unresponsive. We checked her glucose, it was 223. We gave Narcan that did not seem to help. I then ordered a stat CT of the brain and went down to the CAT scan, talked to them, looked at the scan, it looks normal, but I am awaiting the official report. I have called Dr. Little of the Neurology Service. He is recommending to go ahead and load her with Keppra. He is concerned she could be having another stroke. We are going to go ahead and load her. Right now her heart tones are normal. She has maintained her vital signs. Her lungs are clear, but she is snoring. Neurological, she is slightly posturing. She is very stiff in her lower extremities. LABORATORY DATA: This morning, her hematology is normal. Her electrolytes are basically normal other than a BUN of 52 and creatinine of 1.6. Glucose as I said earlier in the 200s. ASSESSMENT AND PLAN: New acute mental status change, suspect new [id number] stroke. Prognosis is extremely guarded. She is critically ill. I have transferred her to the ICU. I have consulted Pulmonary because she might need to be intubated, although currently she is satting fine. I am going to talk to Dr. Lin. He is down in the ICU here. I am going to talk to the daughter who is also here right now. Frequent labs. ICU monitoring. Prognosis is extremely guarded at best. She is DNR already. Total time 44 minutes. JAIRO BUSTILLOS DO DR: NURIA/colten JOB#: [id number] / [id number]
--- NOTE | 2018-08-08 11:50 | NUR ---
pt called for help to the [facility] while aid was helping pt to lean forward pt eyes rolled back and pt went unresponsive, Dr. Fairchild had just come out of her room and was at nurses station still, Dr. Fairchild assessed, Blood sugar was 218, BP was 118/48, one dose of Narcan IV was given, pt was still unresponsive, Dr. Fairchild ordered a STAT Head CT and an order to transfer to ICU. pt taken down for Head CT, after completion of Head CT pt transferred directly to ICU. Luis RN nurse in ICU was given report at bedside.
[2018-08-08] MEDS: levETIRAcetam 500 MG in IV DEXTROSE 5% 100ML 100 ML IV SCH ×2 (11:57→21:39)
[2018-08-08] MEDS ORDERED: LOSARTAN POTASSIUM 50 MG TABLET. PO SCH (12:00)
[2018-08-08 12:02] LABS: BASE EXCESS ABG 4 mmol/L (-3-3); HCO3 ABG 27 mmol/L (21-28); PCO2 ABG 32 mmHg (35-46); PO2 ABG 100 mmHg (65-108); SAT O2 ABG 98 % (92-99)
[2018-08-08 12:04] LABS: FIO2 ABG 21%
--- NOTE | 2018-08-08 12:35 | NUR ---
[place] becoming [place]responsive. HIMs notified, consult to neuro and pulm. called. Patient started on keppra to avoid seizure activity. Patient has bouts of apnea, pulm made aware. blood gas drawn. will continue to monitor.
[2018-08-08] MEDS: ANTI-COAG MONITOR BY PHARMACY. MC PRN (13:22)
--- NOTE | 2018-08-08 13:36 | CONS ---
DATE OF CONSULTATION: PULMONARY CONSULTATION ATTENDING PHYSICIAN: Pelon Parra MD. REASON FOR CONSULTATION: Altered mental status, encephalopathy. HISTORY OF PRESENT ILLNESS: The patient is an 83-year-old female who has history of atrial fibrillation. She was hospitalized with acute encephalopathy. The patient did not receive TPA as the time of the symptom onset was unknown. The patient was also already on apixaban. The patient underwent MRI and was abnormal and was consistent with acute stroke. The MRI done yesterday showed a subacute infarct in the left temporal lobe along with cortical involvement. There were old lacunar infarcts. She was brought into the hospital with more decline in her mental status. She did receive Narcan, which did not made any difference. The patient is on multiple medications including oxycodone, which she received yesterday and morphine was not given to her, although it was on her MARS. Arterial blood gases revealed no hypercapnia, pH of 7.54, pCO2 of 32 and a pO2 of 100. This was obtained on room air. On observation, she appears to having Johnny-Silva breathing pattern with episodes of apneas and ____. I have been asked to see her for further evaluation. The patient's family was at the bedside who gave much of the history. No history of tobacco use. No history of any pulmonary conditions. PAST MEDICAL HISTORY: Significant for history of CAD, CHF, atrial fibrillation, pulmonary hypertension, diabetes, chronic renal insufficiency. PAST SURGICAL HISTORY: Pacemaker. FAMILY HISTORY: Diabetes and hypertension. SOCIAL HISTORY: Nonsmoker. ALLERGIES: IV DYE, AND MEPERIDINE. MEDICATIONS: Reviewed as listed in the MRAD. REVIEW OF SYSTEMS: Unable to obtain. PHYSICAL EXAMINATION: VITAL SIGNS: Reviewed. Blood pressure is stable, pulse ox 97% room air. NECK: Supple. LUNGS: Clear. CARDIOVASCULAR: Regular rate and rhythm. ABDOMEN: Soft. EXTREMITIES: With no pitting edema. LABORATORY DATA: Reviewed. ABGs are discussed in my history of present illness. Influenza screen is negative. BUN and creatinine 52 and 1.6. IMPRESSION: 1. Acute metabolic encephalopathy , likely related to extension of stroke. ABGs showed no evidence of any hypercapnia. 2. Acute stroke with suspected extension. The MRI of the brain showed subacute infarct of the left temporal lobe along with cortical involvement. She has Johnny-Silva breathing pattern likely related to her stroke. Ejection fraction was normal. 3. No significant history of tobacco use. 4. Chest x-ray slightly abnormal on admission with mildly prominent interstitial markings, could be mild neurogenic edema. RECOMMENDATIONS: 1. From a pulmonary standpoint, I have recommended to place her on BiPAP. 2. Discussed with neurology, Dr. Little and discussed with entire family and they agree with DNR and DNI. 3. Repeat MRI has been ordered. We will follow the results. 4. Avoid any narcotics. 5. Further discussion will be with the family once MRI results are available. 6. May consider hospice or palliative care. Critical care time 35 minutes. ADRIAN LEO MD DR: RUTHY/colten JOB#: [id number] / [id number] [place]
--- NOTE | 2018-08-08 13:54 | PDOC ---
PROGRESS NOTES Assessment Problems Medical Problems: (1) Change in mental status Status: Acute Left temporal stroke with aphasia, receptive and expressive components. Then she became even more obtunded at about 11 AM, suspect new right hemispheric stroke given the fact that she is having posturing and Johnny- Silva respirations. Lumbar spine disease: old superior L2 compression fracture, advanced degenerative disc disease L5-S1, severe spinal stenosis L4-5, right greater than left L5-S1 neural foramina compromise, mild to moderate narrowing of the L5 -S1 neural foramen, minimal narrowing of the left L5-S1 and L3-4 neural foramina , grade 1 anterior spondylolisthesis at L4-5, negligible anterior spondylolisthesis at L5-S1. There is facet degenerative change greater inferiorly of the lumbar spine. Cervical spondylosis: degenerative disc disease at C4-C7 Plan Repeat MRI of the brain with MRA I am not a candidate for alteplase because of anticoagulation, probably not a good candidate for clot retrieval and the family wants a nonaggressive approach. Patient is DO NOT RESUSCITATE. They would like to know what is going on in the brain and are agreeable to the MRI studies. Apixaban if able to take orally, risks outweigh benefits of heparin. She needs a statin when able to take by mouth Fully discussed with patient's daughters. Subjective none Objective Vital Signs Date Time Temp Pulse Resp B/P (MAP) Pulse Ox O2 Delivery O2 Flow Rate FiO2 08/08/18 11:57 80 145/56 08/08/18 10:50 97 Room Air 08/08/18 10:40 16 08/08/18 06:55 97.6 97.6 Intake and Output 08/08/18 07:00 Intake Total 600 ml Balance 600 ml Intake Oral 600 ml # Voids 6 # Bowel Movements 2 PHYSICAL EXAM Eyes closed, does not respond to voice, Johnny-Silva respirations PERRL. EOMI. CN: no focal findings. Muscle tone: normal. Muscle strength: Extensor posturing to mild stimulation DTR: 1+ Plantar reflex: Silent Gait: not examined. Sensory exam: Not cooperative. Cerebellar: Not cooperative Review of Relevant I have reviewed the following items alejandra (where applicable) has been applied. Labs Laboratory Tests Test 08/06/18 15:47 08/06/18 16:00 08/06/18 16:08 08/06/18 16:25 Stool Occult Blood Negative (NEG) White Blood Count 11.8 x10^3/uL (4.0-11.0) Red Blood Count 4.05 x10^6/uL (3.50-5.40) Hemoglobin 13.2 g/dL (12.0-15.5) Hematocrit 39.1 % (36.0-47.0) Mean Corpuscular Volume 96 fL (79-100) Mean Corpuscular Hemoglobin 33 pg (25-35) Mean Corpuscular Hemoglobin Concent 34 g/dL (31-37) Red Cell Distribution Width 15.0 % (11.5-14.5) Platelet Count 367 x10^3/uL (140-400) Neutrophils (%) (Auto) 74 % (31-73) Lymphocytes (%) (Auto) 17 % (24-48) Monocytes (%) (Auto) 7 % (0-9) Eosinophils (%) (Auto) 1 % (0-3) Basophils (%) (Auto) 1 % (0-3) Neutrophils # (Auto) 8.8 x10^3uL (1.8-7.7) Lymphocytes # (Auto) 1.9 x10^3/uL (1.0-4.8) Monocytes # (Auto) 0.9 x10^3/uL (0.0-1.1) Eosinophils # (Auto) 0.2 x10^3/uL (0.0-0.7) Basophils # (Auto) 0.1 x10^3/uL (0.0-0.2) Sodium Level 140 mmol/L (136-145) Potassium Level 4.5 mmol/L (3.5-5.1) Chloride Level 100 mmol/L (98-107) Carbon Dioxide Level 29 mmol/L (21-32) Anion Gap 11 (6-14) Blood Urea Nitrogen 61 mg/dL (7-20) Creatinine 1.6 mg/dL (0.6-1.0) Estimated GFR (Cockcroft-Gault) 30.9 BUN/Creatinine Ratio 38 (6-20) Glucose Level 99 mg/dL (70-99) Lactic Acid Level 2.1 mmol/L (0.4-2.0) Calcium Level 10.3 mg/dL (8.5-10.1) Magnesium Level 2.2 mg/dL (1.8-2.4) Total Bilirubin 0.5 mg/dL (0.2-1.0) Aspartate Amino Transf (AST/SGOT) 17 U/L (15-37) Alanine Aminotransferase (ALT/SGPT) 22 U/L (14-59) Alkaline Phosphatase 107 U/L (46-116) Creatine Kinase 28 U/L (26-192) Creatine Kinase MB (Mass) 1.5 ng/mL (0.0-3.6) Creatine Kinase MB Relative Index % (0-4) Troponin I Quantitative 0.385 ng/mL (0.000-0.055) Total Protein 7.5 g/dL (6.4-8.2) Albumin 2.9 g/dL (3.4-5.0) Albumin/Globulin Ratio 0.6 (1.0-1.7) Urine Collection Type U cath Urine Color Yellow Urine Clarity Clear Urine pH 7.5 Urine Specific Elon 1.010 Urine Protein Negative mg/dL (NEG-TRACE) Urine Glucose (UA) Negative mg/dL (NEG) Urine Ketones (Stick) Negative mg/dL (NEG) Urine Blood Negative (NEG) Urine Nitrite Negative (NEG) Urine Bilirubin Negative (NEG) Urine Urobilinogen Dipstick 0.2 mg/dL (0.2 mg/dL) Urine Leukocyte Esterase Negative (NEG) Urine RBC 0 /HPF (0-2) Urine WBC 0 /HPF (0-4) Urine Transitional Epithelial Cells Occ /LPF Urine Bacteria 0 /HPF (0-FEW) Urine Mucus Slight /LPF Influenza Type A Antigen Negative (NEGATIVE) Influenza Type B Antigen Negative (NEGATIVE) Test 08/06/18 16:40 08/06/18 22:20 08/07/18 03:50 08/07/18 07:35 Prothrombin Time 13.6 SEC (11.7-14.0) Prothromb Time International Ratio 1.1 (0.8-1.1) Activated Partial Thromboplast Time 22 SEC (24-38) Nasal Screen MRSA (PCR) Negative (Negative) White Blood Count 9.7 x10^3/uL (4.0-11.0) Red Blood Count 3.73 x10^6/uL (3.50-5.40) Hemoglobin 12.0 g/dL (12.0-15.5) Hematocrit 35.6 % (36.0-47.0) Mean Corpuscular Volume 96 fL (79-100) Mean Corpuscular Hemoglobin 32 pg (25-35) Mean Corpuscular Hemoglobin Concent 34 g/dL (31-37) Red Cell Distribution Width 15.0 % (11.5-14.5) Platelet Count 325 x10^3/uL (140-400) Neutrophils (%) (Auto) 68 % (31-73) Lymphocytes (%) (Auto) 21 % (24-48) Monocytes (%) (Auto) 9 % (0-9) Eosinophils (%) (Auto) 2 % (0-3) Basophils (%) (Auto) 0 % (0-3) Neutrophils # (Auto) 6.6 x10^3uL (1.8-7.7) Lymphocytes # (Auto) 2.1 x10^3/uL (1.0-4.8) Monocytes # (Auto) 0.8 x10^3/uL (0.0-1.1) Eosinophils # (Auto) 0.2 x10^3/uL (0.0-0.7) Basophils # (Auto) 0.0 x10^3/uL (0.0-0.2) Sodium Level 139 mmol/L (136-145) Potassium Level 4.1 mmol/L (3.5-5.1) Chloride Level 102 mmol/L (98-107) Carbon Dioxide Level 29 mmol/L (21-32) Anion Gap 8 (6-14) Blood Urea Nitrogen 57 mg/dL (7-20) Creatinine 1.5 mg/dL (0.6-1.0) Estimated GFR (Cockcroft-Gault) 33.2 Glucose Level 103 mg/dL (70-99) Calcium Level 9.7 mg/dL (8.5-10.1) Troponin I Quantitative 0.290 ng/mL (0.000-0.055) Thyroid Stimulating Hormone (TSH) 2.006 uIU/mL (0.358-3.74) Glucose (Fingerstick) 112 mg/dL (70-99) Test 08/07/18 12:28 08/07/18 16:21 08/07/18 20:50 08/08/18 07:19 Glucose (Fingerstick) 173 mg/dL (70-99) 72 mg/dL (70-99) 161 mg/dL (70-99) 110 mg/dL (70-99) Test 08/08/18 07:40 08/08/18 10:41 08/08/18 11:55 White Blood Count 8.3 x10^3/uL (4.0-11.0) Red Blood Count 4.00 x10^6/uL (3.50-5.40) Hemoglobin 13.2 g/dL (12.0-15.5) Hematocrit 38.9 % (36.0-47.0) Mean Corpuscular Volume 97 fL (79-100) Mean Corpuscular Hemoglobin 33 pg (25-35) Mean Corpuscular Hemoglobin Concent 34 g/dL (31-37) Red Cell Distribution Width 14.6 % (11.5-14.5) Platelet Count 324 x10^3/uL (140-400) Neutrophils (%) (Auto) 71 % (31-73) Lymphocytes (%) (Auto) 18 % (24-48) Monocytes (%) (Auto) 8 % (0-9) Eosinophils (%) (Auto) 3 % (0-3) Basophils (%) (Auto) 1 % (0-3) Neutrophils # (Auto) 5.9 x10^3uL (1.8-7.7) Lymphocytes # (Auto) 1.5 x10^3/uL (1.0-4.8) Monocytes # (Auto) 0.7 x10^3/uL (0.0-1.1) Eosinophils # (Auto) 0.3 x10^3/uL (0.0-0.7) Basophils # (Auto) 0.1 x10^3/uL (0.0-0.2) Sodium Level 140 mmol/L (136-145) Potassium Level 4.1 mmol/L (3.5-5.1) Chloride Level 101 mmol/L (98-107) Carbon Dioxide Level 30 mmol/L (21-32) Anion Gap 9 (6-14) Blood Urea Nitrogen 52 mg/dL (7-20) Creatinine 1.6 mg/dL (0.6-1.0) Estimated GFR (Cockcroft-Gault) 30.9 Glucose Level 120 mg/dL (70-99) Calcium Level 9.9 mg/dL (8.5-10.1) Magnesium Level 2.6 mg/dL (1.8-2.4) Triglycerides Level 205 mg/dL (0-150) Cholesterol Level 257 mg/dL (0-200) LDL Cholesterol, Calculated 182 mg/dL (0-100) VLDL Cholesterol, Calculated 41 mg/dL (0-40) Non-HDL Cholesterol Calculated 223 mg/dL (0-129) HDL Cholesterol 34 mg/dL (40-60) Cholesterol/HDL Ratio 7.6 Glucose (Fingerstick) 219 mg/dL (70-99) O2 Saturation 98 % (92-99) Arterial Blood pH 7.54 (7.35-7.45) Arterial Blood pCO2 at Patient Temp 32 mmHg (35-46) Arterial Blood pO2 at Patient Temp 100 mmHg (65-108) Arterial Blood HCO3 27 mmol/L (21-28) Arterial Blood Base Excess 4 mmol/L (-3-3) FiO2 21% Laboratory Tests Test 08/07/18 16:21 08/07/18 20:50 08/08/18 07:19 08/08/18 07:40 Glucose (Fingerstick) 72 mg/dL (70-99) 161 mg/dL (70-99) 110 mg/dL (70-99) White Blood Count 8.3 x10^3/uL (4.0-11.0) Red Blood Count 4.00 x10^6/uL (3.50-5.40) Hemoglobin 13.2 g/dL (12.0-15.5) Hematocrit 38.9 % (36.0-47.0) Mean Corpuscular Volume 97 fL (79-100) Mean Corpuscular Hemoglobin 33 pg (25-35) Mean Corpuscular Hemoglobin Concent 34 g/dL (31-37) Red Cell Distribution Width 14.6 % (11.5-14.5) Platelet Count 324 x10^3/uL (140-400) Neutrophils (%) (Auto) 71 % (31-73) Lymphocytes (%) (Auto) 18 % (24-48) Monocytes (%) (Auto) 8 % (0-9) Eosinophils (%) (Auto) 3 % (0-3) Basophils (%) (Auto) 1 % (0-3) Neutrophils # (Auto) 5.9 x10^3uL (1.8-7.7) Lymphocytes # (Auto) 1.5 x10^3/uL (1.0-4.8) Monocytes # (Auto) 0.7 x10^3/uL (0.0-1.1) Eosinophils # (Auto) 0.3 x10^3/uL (0.0-0.7) Basophils # (Auto) 0.1 x10^3/uL (0.0-0.2) Sodium Level 140 mmol/L (136-145) Potassium Level 4.1 mmol/L (3.5-5.1) Chloride Level 101 mmol/L (98-107) Carbon Dioxide Level 30 mmol/L (21-32) Anion Gap 9 (6-14) Blood Urea Nitrogen 52 mg/dL (7-20) Creatinine 1.6 mg/dL (0.6-1.0) Estimated GFR (Cockcroft-Gault) 30.9 Glucose Level 120 mg/dL (70-99) Calcium Level 9.9 mg/dL (8.5-10.1) Magnesium Level 2.6 mg/dL (1.8-2.4) Triglycerides Level 205 mg/dL (0-150) Cholesterol Level 257 mg/dL (0-200) LDL Cholesterol, Calculated 182 mg/dL (0-100) VLDL Cholesterol, Calculated 41 mg/dL (0-40) Non-HDL Cholesterol Calculated 223 mg/dL (0-129) HDL Cholesterol 34 mg/dL (40-60) Cholesterol/HDL Ratio 7.6 Test 08/08/18 10:41 08/08/18 11:55 Glucose (Fingerstick) 219 mg/dL (70-99) O2 Saturation 98 % (92-99) Arterial Blood pH 7.54 (7.35-7.45) Arterial Blood pCO2 at Patient Temp 32 mmHg (35-46) Arterial Blood pO2 at Patient Temp 100 mmHg (65-108) Arterial Blood HCO3 27 mmol/L (21-28) Arterial Blood Base Excess 4 mmol/L (-3-3) FiO2 21% Microbiology 08/06/18 Blood Culture - Preliminary, Resulted NO GROWTH AFTER 1 DAY Medications Current Medications Sodium Chloride 500 ml @ 500 mls/hr 1X ONCE IV Last administered on 08/06/18at 16:21; Start 08/06/18 at 16:00; Stop 08/06/18 at 16:59; Status DC Ondansetron HCl (Zofran) 4 mg PRN Q6HRS PRN IV NAUSEA/VOMITING; Start 08/06/18 at 18:15 Morphine Sulfate (Morphine Sulfate) 1 mg PRN Q1HR PRN IV PAIN; Start 08/06/18 at 18:15 Lactulose (Lactulose) 20 gm PRN Q12HR PRN PO CONSTIPATION, 2ND CHOICE; Start at 18:15 Heparin Sodium (Porcine) (Heparin Sodium) 5,000 unit Q12HR SQ ; Start 08/06/18 at 21:00; Stop 08/06/18 at 21:00; Status DC Ascorbic Acid (Vitamin C) 500 mg DAILY PO Last administered on 08/08/18 08:57; Start 08/07/18 at 09:00 Aspirin (Derek Aspirin) 325 mg DAILY PO Last administered on 08/08/18 08:56; Start 08/07/18 at 09:00 Calcium/Vitamin D (Oscal D 500mg/ 200uts) 1 tab DAILY PO Last administered on 08:57; Start 08/07/18 at 09:00 Docusate Sodium (Colace) 100 mg BID PO Last administered on 08/08/18 08:57; Start 08/06/18 at 21:00 Ferrous Sulfate (Feosol) 325 mg DAILY PO Last administered on 08/08/18 08:56; Start 08/07/18 at 09:00 Acetaminophen/ Hydrocodone Bitart (Lortab 5/325) 1 tab PRN Q12HRS PRN PO MODERATE PAIN Last administered on 08/08/18 02:32; Start 08/06/18 at 18:15 Metoprolol Tartrate (Lopressor) 25 mg BID PO Last administered on 08/08/18 08: 57; Start 08/06/18 at 21:00 Nitroglycerin (Nitrostat) 0.4 mg PRN Q5MIN PRN SL CHEST PAIN; Start 08/06/18 at 18:15 Oxycodone/ Acetaminophen (Percocet 5/325) 1 tab PRN Q6HRS PRN PO SEVERE PAIN Last administered on 08/07/18 21:12; Start 08/06/18 at 18:15 Potassium Chloride (Klor-Con) 10 meq DAILY PO Last administered on 08/08/18 08: 56; Start 08/07/18 at 09:00 Acetaminophen (Tylenol) 500 mg PRN Q8HRS PRN PO MILD PAIN / TEMP Last administered on 08/07/18 14:07; Start 08/06/18 at 19:00 Bisacodyl (Dulcolax Supp) [address] CONSTIPATION; Start 08/06/18 at 19:00 Diltiazem HCl (Cardizem 24hr Cd) 180 mg DAILY PO Last administered on 08/08/18 08:56; Start 08/07/18 at 09:00 Citalopram Hydrobromide (CeleXA) 40 mg DAILY PO Last administered on 08/08/18 08:55; Start 08/07/18 at 09:00 Insulin Human Lispro (HumaLOG) 10 units TIDWMEALS SQ Last administered on 09:00; Start 08/06/18 at 19:30 Insulin Glargine (Lantus) 34 units DAILYWBKFT SQ Last administered on 08/08/18 09:00; Start 08/07/18 at 08:00 Losartan Potassium (Cozaar) 50 mg DAILY PO Last administered on 08/07/18 09:26 ; Start 08/07/18 at 09:00; Stop 08/08/18 at 07:30; Status DC Magnesium Hydroxide (Milk Of Magnesia) 2,400 mg PRN DAILY PRN PO CONSTIPATION, 1ST CHOICE; Start 08/06/18 at 19:00 Meclizine HCl (Antivert) 12.5 mg BID PO Last administered on 08/08/18 08:57; Start 08/06/18 at 21:00 Metolazone (Zaroxolyn) 5 mg DAILY PO Last administered on 08/07/18 09:23; Start 08/07/18 at 09:00; Stop 08/07/18 at 10:37; Status DC Multivitamins (Thera M Plus) 1 tab DAILY PO Last administered on 08/08/18 08:57 ; Start 08/07/18 at 09:00 Pantoprazole Sodium (Protonix) 40 mg DAILYAC PO Last administered on 08/08/18 08:58; Start 08/07/18 at 07:30 Polyethylene Glycol (miraLAX PACKET) 17 gm DAILY PO Last administered on 08:54; Start 08/07/18 at 09:00 Famotidine (Pepcid) 20 mg DAILY PO Last administered on 08/08/18 08:57; Start 08/07/18 at 09:00 Spironolactone (Aldactone) 25 mg DAILY PO Last administered on 08/07/18 09:27; Start 08/07/18 at 09:00; Stop 08/08/18 at 12:43; Status DC Warfarin Sodium (Coumadin) 5 mg DAILY16 PO ; Start 08/06/18 at 19:30; Stop at 20:46; Status DC Warfarin Sodium (Coumadin Per Physician) 1 each PRN DAILY PRN MC SEE COMMENTS; Start 08/06/18 at 19:00; Stop 08/06/18 at 20:46; Status DC Bumetanide (Bumex) 4 mg BID94 PO Last administered on 08/07/18at 09:23; Start 08/07/18 at 09:00; Stop 08/07/18 at 10:33; Status DC Isosorbide Mononitrate (Imdur) 60 mg DAILY PO Last administered on 08/07/18 09: 27; Start 08/07/18 at 09:00; Stop 08/08/18 at 07:30; Status DC Non-Formulary Medication (Lidocaine (Aspercreme)) 1 each DAILY TP ; Start at 09:00; Status UNV Non-Formulary Medication (Omeprazole ) 40 mg DAILY PO ; Start 08/07/18 at 09:00; Status UNV Multi-Ingredient Ointment (Analgesic [place]) 1 marisol PRN TID PRN TP MUSCLE PAIN; Start 08/06/18 at 20:45; Stop 08/06/18 at 20:45; Status DC Mirtazapine (Remeron) 7.5 mg QHS PO Last administered on 08/07/18at 21:12; Start 08/06/18 at 21:00 Multi-Ingredient Ointment (Analgesic [place]) 1 marisol PRN TID PRN TP MUSCLE PAIN Last administered on 08/06/18at 22:17; Start 08/06/18 at 20:45 Apixaban (Eliquis) 5 mg BID PO Last administered on 08/08/18at 08:57; Start at 21:00; Stop 08/08/18 at 13:15; Status DC Info (Anti-Coagulation Monitoring By Pharmacy) 1 each PRN DAILY PRN MC SEE COMMENTS Last administered on 08/08/18at 13:22; Start 08/06/18 at 21:00 Acetaminophen (Tylenol) 650 mg PRN Q6HRS PRN PO TEMP > 100.4F; Start 08/07/18 at 09:00 Acetaminophen (Tylenol Supp) 650 [address]N Q4HRS PRN CT TEMP > 100.4F; Start at 09:00 Bumetanide (Bumex) 2 mg BID94 PO ; Start 08/07/18 at 16:00; Stop 08/08/18 at 12:43 ; Status DC Losartan Potassium (Cozaar) 50 mg NOON PO ; Start 08/08/18 at 12:00 Naloxone HCl (Narcan) 0.4 mg 1X ONCE IV Last administered on 08/08/18at 10:47; Start 08/08/18 at 11:30; Stop 08/08/18 at 11:31; Status DC Atorvastatin Calcium (Lipitor) 40 mg QHS PO ; Start 08/08/18 at 21:00 Levetiracetam 500 mg/Dextrose 105 ml @ 420 mls/hr Q12HR IV Last administered on 08/08/18at 11:57; Start 08/08/18 at 12:00 Apixaban (Eliquis) 2.5 mg BID PO ; Start 08/08/18 at 21:00 Active Scripts Active Reported Doxycycline Hyclate 100 Mg Tablet 100 Mg PO BID Eliquis (Apixaban) 5 Mg Tablet 5 Mg PO BID Aspercreme 10% Cream (Trolamine Salicylate/Aloe Vera) 35.4 Gm Cream..g. 35.4 Gm TP TID PRN PRN Isosorbide Mononitrate Er (Isosorbide Mononitrate) 60 Mg Tab.er.24h 60 Mg PO DAILY Aspercreme (Lidocaine) 1 Each Adh..patch 1 Each TP DAILY Bumetanide 2 Mg Tablet 4 Mg PO BID Spironolactone 25 Mg Tablet 25 Mg PO DAILY Potassium Chloride 10 Meq Tablet.er 10 Meq PO DAILY Omeprazole 40 Mg Capsule.dr 40 Mg PO DAILY NITROGLYCERIN SubLingual (Nitroglycerin) 0.4 Mg Tab.subl 0.4 Mg SL PRN Q5MIN PRN Escitalopram Oxalate 20 Mg Tablet 1 Tab PO DAILY Diltiazem 24HR Cd (Diltiazem Hcl) 180 Mg Cap.er.24h 1 Cap PO DAILY Ascorbic Acid 500 Mg Tablet 500 Mg PO Multivitamins (Multivitamin) 1 Each Tablet 1 Tab PO DAILY Metolazone 5 Mg Tablet 5 Mg PO DAILY Novolog Flexpen (Insulin Aspart) 100 Unit/1 Ml Insuln.pen 10 Unit SQ TIDAC Tresiba Flextouch U-100 (Insulin Degludec) 100 Unit/1 Ml Insuln.pen 34 Unit SQ DAILYWBKFT Ferrous Sulfate 325 Mg Tablet 1 Tab PO DAILY Dulcolax (Bisacodyl) 10 Mg Supp.rect 10 Mg RC PRN DAILY PRN Aspirin 325 Mg Tablet 1 Tab PO DAILY Metoprolol Tartrate 25 Mg Tablet 25 Tab PO BID Acetaminophen 500 Mg Tablet 500 Mg PO PRN Q8HRS PRN Meclizine Hcl 12.5 Mg Tablet 1 Tab PO BID Hydrocodone-Apap 5-325 (Hydrocodone Bit/Acetaminophen) 1 Each Tablet 1 Tab PO Q12HR PRN Stool Softener (Docusate Sodium) 100 Mg Capsule 100 Mg PO BID Losartan Potassium 100 Mg Tablet 50 Mg PO DAILY Vitals/I & O Vital Sign - Last 24 Hours 08/07/18 08/07/18 08/07/18 08/07/18 14:00 17:20 19:32 20:00 Temp 98.1 98.0 97.7 98.1 98.0 97.7 Pulse 75 76 88 Resp 18 18 16 B/P (MAP) 104/46 (65) 105/40 (61) 110/38 (62) Pulse Ox 97 98 93 O2 Delivery Room Air Room Air Room Air Room Air 08/07/18 08/07/18 08/07/18 08/07/18 21:12 21:13 22:12 23:30 Temp 97.8 97.8 Pulse 88 74 Resp 16 B/P (MAP) 110/38 97/46 (63) Pulse Ox 95 O2 Delivery Room Air Room Air Room Air 08/08/18 08/08/18 08/08/18 08/08/18 02:32 03:00 03:32 06:55 Temp 97.5 97.6 97.5 97.6 Pulse 73 97 Resp 16 18 B/P (MAP) 143/81 (101) 140/84 (102) Pulse Ox 98 98 O2 Delivery Room Air Room Air Room Air Room Air 08/08/18 08/08/18 08/08/18 08/08/18 08:00 08:56 08:57 10:40 Pulse 97 97 69 Resp 16 B/P (MAP) 140/84 140/84 118/45 (69) Pulse Ox 99 O2 Delivery Room Air Room Air 08/08/18 08/08/18 08/08/18 10:45 10:50 11:57 Pulse 77 80 B/P (MAP) 94/59 (71) 116/56 (76) 145/56 Pulse Ox 97 O2 Delivery Room Air Room Air Intake and Output 08/07/18 08/07/18 08/08/18 15:00 23:00 07:00 Intake Total 200 ml 400 ml 0 ml Balance 200 ml 400 ml 0 ml Images I reviewed yesterday's MRI, carotid Doppler studies, and echocardiogram as well as this morning's repeat head CT. LIONEL OGLESBY MD Aug 08, 2018 13:54
--- NOTE | 2018-08-08 15:10 | RAD ---
MR of the brain without contrast HISTORY: Acute loss of consciousness. Weakness. Recent stroke in the left temporal lobe. TECHNIQUE: Axial T1-weighted, T2-weighted, FLAIR, diffusion, sagittal T1 weighted, axial gradient echo, coronal T2-weighted images are obtained. Emergency interpretation was requested. COMPARISON: August 07, 2018. FINDINGS: Moderate to severe motion degradation on the exam, patient was unable to remain still. Since the prior study, there has been development of new restricted diffusion in the right thalamus, may also involve the posterior internal capsule. There is some tiny signal in the medial left thalamus, could be artifact versus small acute infarction. Areas of restricted diffusion in the left temporal lobe are again seen. There may be a very small new focus of ischemia along the cortical surface of the left temporal lobe since prior study. There is some increased T2 signal within the ju was also described on the prior study, difficult to accurately compare due to the motion. Cerebral atrophy is again seen. There appear to be foci of T2 and FLAIR signal within the bilateral white matter, probably similar to the prior study, but more difficult to visualize today due to the motion degradation. No obvious midline shift or abnormal extra-axial fluid collection. IMPRESSION: 1. Evidence of a new acute infarction in the region of the right thalamus, and possibly posterior right internal capsule and medial left thalamus. 2. Left temporal infarction changes are again seen. There may be a new tiny focus of acute infarction in the anterior left temporal lobe. 3. Otherwise, severe motion degradation limits the usefulness of this exam. FOR INTERNAL CODING PURPOSES Critical result: Findings discussed with nurse Smith in the ICU at 08/08/2018 2:56 PM. RESULT CODE: (C) Electronically signed by: Thom Donaldson MD (08/08/2018 3:07 PM) [id number]
--- NOTE | 2018-08-08 15:19 | RAD ---
MRA Brain History: Weakness, suspected right CVA, acute change in level of consciousness Technique: 3-D [id number] MR angiography was performed of the brain. Comparison: None Findings: Determination of any degree of stenosis is based on NASCET criteria. There is significant motion degradation. Left vertebral artery constitutes the basilar artery. Right vertebral artery is not seen. Region of PICAs is not included. There is visualization left AICA, not well seen on the right. There is visualization of segments of bilateral superior cerebellar arteries. There is patent left posterior communicating artery, small vessel in region of right posterior communicating artery more likely venous. There is visualization of the internal carotid arteries bilaterally at the skull base. No significant anterior communicating artery is visualized. Accurate evaluation for stenosis is limited due to degree of motion. There is likely at least moderate stenosis of the more distal right P2 segment. There is significant/critical stenosis with greater than than 90% luminal diameter reduction of the right P1 segment. There are likely tandem stenoses of the proximal left superior cerebellar artery, at least moderate luminal diameter reduction. 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 There is degree of stenoses of the cavernous internal carotid arteries bilaterally difficult to accurately quantify due to motion. There is other wall irregularity of the middle and anterior cerebral arteries likely due to intracranial atherosclerotic disease. There is at least mild stenosis near origin of the left A1 segment. Impression: 1. There is significant motion degradation. There is significant/critical stenosis right P1 segment. There are moderate tandem stenoses of the proximal left superior cerebellar artery. There is degree of narrowing of the cavernous internal carotid arteries bilaterally due to plaque. Neck MRA without contrast History: Weakness, suspected right CVA, acute change in level of consciousness Technique: [id number] MR angiography was performed of the neck. Comparison: None Findings: Determination of any degree of stenosis is based on NASCET criteria. There is significant motion degradation. There is antegrade flow of segments of the bilateral vertebral arteries although right vertebral artery very small in caliber and variably poorly visualized. There is antegrade flow in the bilateral common and internal carotid arteries. No significant stenosis is identified of the cervical internal carotid arteries allowing for significant motion. Brachiocephalic artery is not well-visualized in its entirety due to signal loss and motion. Impression: 1. Exam is limited due to motion, no significant stenosis identified of the cervical internal carotid arteries. Right vertebral artery is variably poorly visualized and small in caliber, may be chronic. Electronically signed by: Marino Magallanes MD (08/08/2018 3:17 PM) [id number]
[2018-08-08] MEDS ORDERED: METOPROLOL TARTRATE 5 MG/5 ML VIAL. IVP PRN (15:45)
[2018-08-08] MEDS: ENOXAPARIN 40 MG/0.4 ML SYRINGE. SQ SCH (16:00)
--- NOTE | 2018-08-08 17:04 | RAD ---
EXAM: Abdomen, single view. HISTORY: Nasogastric tube placement. COMPARISON: 02/24/2018 FINDINGS: A frontal view of the abdomen is obtained. There is a nasogastric tube within the proximal stomach. There are nonspecific air-filled loops of bowel within the abdomen. There are cholecystectomy clips. IMPRESSION: Nasogastric tube within the stomach. Electronically signed by: Mine Guajardo MD (08/08/2018 5:01 PM) [id number]
[2018-08-08] MEDS ORDERED: DEXTROSE 50% 25 GM / 50ML DISP.SYRIN. IV ONE ×3 (17:25→21:40)
--- NOTE | 2018-08-08 17:42 | NUR ---
unable to perform NIHSS assessment due to patient being unresponsive. Neuro on case
[2018-08-08] MEDS: METOPROLOL TARTRATE 5 MG/5 ML VIAL. IVP SCH (18:00)
[2018-08-08] MEDS ORDERED: APIXABAN 2.5 MG TABLET. PO SCH (21:00)
[2018-08-08] MEDS: MIRTAZAPINE 7.5 MG TABLET. PO SCH (21:39)
[2018-08-08] MEDS: ATORVASTATIN CALCIUM 40 MG TABLET. PO SCH (21:39)
[2018-08-08] MEDS ORDERED: DEXTROSE 50% 25 GM / 50ML DISP.SYRIN. IV PRN (21:45)
[2018-08-09] VITALS (24 sets, daily range): BP systolic 100–150; BP diastolic 48–84
[2018-08-09] MEDS: METOPROLOL TARTRATE 5 MG/5 ML VIAL. IVP SCH ×4 (00:22→18:37)
[2018-08-09 05:09] LABS: BASO % 0 % (0-3); EOS # 0.3 x10^3/uL (0.0-0.7); EOS % 2 % (0-3); HEMATOCRIT 36.8 % (36.0-47.0); HEMOGLOBIN 12.4 g/dL (12.0-15.5); LYMPH # 1.4 x10^3/uL (1.0-4.8); LYMPH % 13 % (24-48); MEAN CORPUSCULAR HEMOGLOBIN 33 pg (25-35); MEAN CORPUSCULAR HGB CONC 34 g/dL (31-37); MEAN CORPUSCULAR VOLUME 97 fL (79-100); MONO # 0.9 x10^3/uL (0.0-1.1); MONO % 8 % (0-9); NEUT # 8.2 x10^3uL (1.8-7.7); NEUT % 76 % (31-73); PLATELET COUNT 315 x10^3/uL (140-400); RED CELL DISTRIBUTION WIDTH 14.8 % (11.5-14.5); WHITE BLOOD COUNT 10.8 x10^3/uL (4.0-11.0)
[2018-08-09 05:24] LABS: CALCIUM 9.7 mg/dL (8.5-10.1); CREATININE 1.4 mg/dL (0.6-1.0); POTASSIUM 4.2 mmol/L (3.5-5.1)
[2018-08-09] MEDS: INSULIN GLARGINE 300 UNITS/3 ML INSULN.PEN. SQ SCH (08:00)
[2018-08-09] MEDS: INSULIN LISPRO 300 UNITS/3 ML INSULN.PEN. SQ SCH ×3 (08:00→17:00)
[2018-08-09] MEDS: POLYETHYLENE GLYCOL 3350 17 GM PACKET. PO SCH (09:00)
[2018-08-09] MEDS: MULTIVITAMIN with MINERAL TABLET. PO SCH (09:00)
[2018-08-09] MEDS: CALCIUM CARB/VIT D3 500/200 TABLET. PO SCH (09:00)
[2018-08-09] MEDS: FERROUS SULFATE 325 MG TABLET. PO SCH (09:00)
[2018-08-09] MEDS: POTASSIUM CHLORIDE 10 MEQ TABLET.ER. PO SCH (09:00)
[2018-08-09] MEDS: FAMOTIDINE 20 MG TABLET. PO SCH (09:00)
[2018-08-09] MEDS: METOPROLOL TART IMMED RELEASE 25 MG TABLET. PO SCH (09:00)
[2018-08-09] MEDS: ASCORBIC ACID 500 MG TABLET PO SCH (09:00)
[2018-08-09] MEDS: MECLIZINE HCL 12.5 MG TABLET. PO SCH ×2 (09:00→21:00)
--- NOTE | 2018-08-09 09:01 | PDOC ---
PROGRESS NOTES Chief Complaint Chief Complaint Acute CVA w/ dysarthria/confusion New rigth sided CVA with thalamus involvement. MRI showed Evidence of a new acute infarction in the region of the right thalamus, and possibly posterior right internal capsule and medial left thalamus. Left temporal infarction changes are again seen. There may be a new tiny focus of acute infarction in the anterior left temporal lobe. Elevated troponin 0.385low concern for cardiac etiology suspect CVA and renal insufficiency contributing Recent mechanical Fall: no significant traumatic injury Recent coumadin induced coagulopathy, transitioned to eliquis Cervical/lumbar stenosis with chronic L RTC tear Chronic A FIB CAD: past stents HTN HLP CKD3 Plan: will observe for the next 24 hours, Pat consult supportive measures further recommendations based on clinical course. History of Present Illness History of Present Illness Patient not responding to verbal stimuli patient not following commands patient protecting her airway and not requiring more invasive ventilation. Lung conversation regarding prognosis and expectations to place with patient's daughter at bedside. Reassurance has been provided will observe for next 24 hours and follow recommendations from wine consultant as well Vitals Vitals Vital Signs Date Time Temp Pulse Resp B/P (MAP) Pulse Ox O2 Delivery O2 Flow Rate FiO2 08/09/18 08:49 100 BiPAP/CPAP 08/09/18 06:00 87 16 100/61 (74) 08/09/18 04:00 97.6 97.6 08/08/18 18:00 21.0 Physical Exam General: Alert, Cooperative, No acute distress Heart: Regular rate, Other (A-FIB rate controlled; 2/6 systolic murmur to LLS border) Lungs: Clear, Other (no crackles or wheezing ) Abdomen: Normal bowel sounds, Soft, No tenderness Extremities: No clubbing, No cyanosis, Other (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 ) Skin: No breakdown, No significant lesion, Other (Ranson indurated b/l lower extremities ) Labs LABS Laboratory Tests Test 08/08/18 10:41 08/08/18 11:55 08/08/18 17:23 08/08/18 17:52 Glucose (Fingerstick) 219 mg/dL (70-99) 48 mg/dL (70-99) 189 mg/dL (70-99) O2 Saturation 98 % (92-99) Arterial Blood pH 7.54 (7.35-7.45) Arterial Blood pCO2 at Patient Temp 32 mmHg (35-46) Arterial Blood pO2 at Patient Temp 100 mmHg (65-108) Arterial Blood HCO3 27 mmol/L (21-28) Arterial Blood Base Excess 4 mmol/L (-3-3) FiO2 21% Test 08/08/18 21:37 08/08/18 22:02 08/09/18 04:30 Glucose (Fingerstick) 68 mg/dL (70-99) 136 mg/dL (70-99) White Blood Count 10.8 x10^3/uL (4.0-11.0) Red Blood Count 3.80 x10^6/uL (3.50-5.40) Hemoglobin 12.4 g/dL (12.0-15.5) Hematocrit 36.8 % (36.0-47.0) Mean Corpuscular Volume 97 fL (79-100) Mean Corpuscular Hemoglobin 33 pg (25-35) Mean Corpuscular Hemoglobin Concent 34 g/dL (31-37) Red Cell Distribution Width 14.8 % (11.5-14.5) Platelet Count 315 x10^3/uL (140-400) Neutrophils (%) (Auto) 76 % (31-73) Lymphocytes (%) (Auto) 13 % (24-48) Monocytes (%) (Auto) 8 % (0-9) Eosinophils (%) (Auto) 2 % (0-3) Basophils (%) (Auto) 0 % (0-3) Neutrophils # (Auto) 8.2 x10^3uL (1.8-7.7) Lymphocytes # (Auto) 1.4 x10^3/uL (1.0-4.8) Monocytes # (Auto) 0.9 x10^3/uL (0.0-1.1) Eosinophils # (Auto) 0.3 x10^3/uL (0.0-0.7) Basophils # (Auto) 0.0 x10^3/uL (0.0-0.2) Sodium Level 141 mmol/L (136-145) Potassium Level 4.2 mmol/L (3.5-5.1) Chloride Level 105 mmol/L (98-107) Carbon Dioxide Level 29 mmol/L (21-32) Anion Gap 7 (6-14) Blood Urea Nitrogen 46 mg/dL (7-20) Creatinine 1.4 mg/dL (0.6-1.0) Estimated GFR (Cockcroft-Gault) 36.0 Glucose Level 81 mg/dL (70-99) Calcium Level 9.7 mg/dL (8.5-10.1) Assessment and Plan Assessmemt and Plan Problems Medical Problems: (1) Change in mental status Status: Acute Comment Review of Relevant I have reviewed the following items alejandra (where applicable) has been applied. Labs Laboratory Tests Test 08/07/18 12:28 08/07/18 16:21 08/07/18 20:50 08/08/18 07:19 Glucose (Fingerstick) 173 mg/dL (70-99) 72 mg/dL (70-99) 161 mg/dL (70-99) 110 mg/dL (70-99) Test 08/08/18 07:40 08/08/18 10:41 08/08/18 11:55 08/08/18 17:23 White Blood Count 8.3 x10^3/uL (4.0-11.0) Red Blood Count 4.00 x10^6/uL (3.50-5.40) Hemoglobin 13.2 g/dL (12.0-15.5) Hematocrit 38.9 % (36.0-47.0) Mean Corpuscular Volume 97 fL (79-100) Mean Corpuscular Hemoglobin 33 pg (25-35) Mean Corpuscular Hemoglobin Concent 34 g/dL (31-37) Red Cell Distribution Width 14.6 % (11.5-14.5) Platelet Count 324 x10^3/uL (140-400) Neutrophils (%) (Auto) 71 % (31-73) Lymphocytes (%) (Auto) 18 % (24-48) Monocytes (%) (Auto) 8 % (0-9) Eosinophils (%) (Auto) 3 % (0-3) Basophils (%) (Auto) 1 % (0-3) Neutrophils # (Auto) 5.9 x10^3uL (1.8-7.7) Lymphocytes # (Auto) 1.5 x10^3/uL (1.0-4.8) Monocytes # (Auto) 0.7 x10^3/uL (0.0-1.1) Eosinophils # (Auto) 0.3 x10^3/uL (0.0-0.7) Basophils # (Auto) 0.1 x10^3/uL (0.0-0.2) Sodium Level 140 mmol/L (136-145) Potassium Level 4.1 mmol/L (3.5-5.1) Chloride Level 101 mmol/L (98-107) Carbon Dioxide Level 30 mmol/L (21-32) Anion Gap 9 (6-14) Blood Urea Nitrogen 52 mg/dL (7-20) Creatinine 1.6 mg/dL (0.6-1.0) Estimated GFR (Cockcroft-Gault) 30.9 Glucose Level 120 mg/dL (70-99) Calcium Level 9.9 mg/dL (8.5-10.1) Magnesium Level 2.6 mg/dL (1.8-2.4) Triglycerides Level 205 mg/dL (0-150) Cholesterol Level 257 mg/dL (0-200) LDL Cholesterol, Calculated 182 mg/dL (0-100) VLDL Cholesterol, Calculated 41 mg/dL (0-40) Non-HDL Cholesterol Calculated 223 mg/dL (0-129) HDL Cholesterol 34 mg/dL (40-60) Cholesterol/HDL Ratio 7.6 Glucose (Fingerstick) 219 mg/dL (70-99) 48 mg/dL (70-99) O2 Saturation 98 % (92-99) Arterial Blood pH 7.54 (7.35-7.45) Arterial Blood pCO2 at Patient Temp 32 mmHg (35-46) Arterial Blood pO2 at Patient Temp 100 mmHg (65-108) Arterial Blood HCO3 27 mmol/L (21-28) Arterial Blood Base Excess 4 mmol/L (-3-3) FiO2 21% Test 08/08/18 17:52 08/08/18 21:37 08/08/18 22:02 08/09/18 04:30 Glucose (Fingerstick) 189 mg/dL (70-99) 68 mg/dL (70-99) 136 mg/dL (70-99) White Blood Count 10.8 x10^3/uL (4.0-11.0) Red Blood Count 3.80 x10^6/uL (3.50-5.40) Hemoglobin 12.4 g/dL (12.0-15.5) Hematocrit 36.8 % (36.0-47.0) Mean Corpuscular Volume 97 fL (79-100) Mean Corpuscular Hemoglobin 33 pg (25-35) Mean Corpuscular Hemoglobin Concent 34 g/dL (31-37) Red Cell Distribution Width 14.8 % (11.5-14.5) Platelet Count 315 x10^3/uL (140-400) Neutrophils (%) (Auto) 76 % (31-73) Lymphocytes (%) (Auto) 13 % (24-48) Monocytes (%) (Auto) 8 % (0-9) Eosinophils (%) (Auto) 2 % (0-3) Basophils (%) (Auto) 0 % (0-3) Neutrophils # (Auto) 8.2 x10^3uL (1.8-7.7) Lymphocytes # (Auto) 1.4 x10^3/uL (1.0-4.8) Monocytes # (Auto) 0.9 x10^3/uL (0.0-1.1) Eosinophils # (Auto) 0.3 x10^3/uL (0.0-0.7) Basophils # (Auto) 0.0 x10^3/uL (0.0-0.2) Sodium Level 141 mmol/L (136-145) Potassium Level 4.2 mmol/L (3.5-5.1) Chloride Level 105 mmol/L (98-107) Carbon Dioxide Level 29 mmol/L (21-32) Anion Gap 7 (6-14) Blood Urea Nitrogen 46 mg/dL (7-20) Creatinine 1.4 mg/dL (0.6-1.0) Estimated GFR (Cockcroft-Gault) 36.0 Glucose Level 81 mg/dL (70-99) Calcium Level 9.7 mg/dL (8.5-10.1) Laboratory Tests Test 08/08/18 10:41 08/08/18 11:55 08/08/18 17:23 08/08/18 17:52 Glucose (Fingerstick) 219 mg/dL (70-99) 48 mg/dL (70-99) 189 mg/dL (70-99) O2 Saturation 98 % (92-99) Arterial Blood pH 7.54 (7.35-7.45) Arterial Blood pCO2 at Patient Temp 32 mmHg (35-46) Arterial Blood pO2 at Patient Temp 100 mmHg (65-108) Arterial Blood HCO3 27 mmol/L (21-28) Arterial Blood Base Excess 4 mmol/L (-3-3) FiO2 21% Test 08/08/18 21:37 08/08/18 22:02 08/09/18 04:30 Glucose (Fingerstick) 68 mg/dL (70-99) 136 mg/dL (70-99) White Blood Count 10.8 x10^3/uL (4.0-11.0) Red Blood Count 3.80 x10^6/uL (3.50-5.40) Hemoglobin 12.4 g/dL (12.0-15.5) Hematocrit 36.8 % (36.0-47.0) Mean Corpuscular Volume 97 fL (79-100) Mean Corpuscular Hemoglobin 33 pg (25-35) Mean Corpuscular Hemoglobin Concent 34 g/dL (31-37) Red Cell Distribution Width 14.8 % (11.5-14.5) Platelet Count 315 x10^3/uL (140-400) Neutrophils (%) (Auto) 76 % (31-73) Lymphocytes (%) (Auto) 13 % (24-48) Monocytes (%) (Auto) 8 % (0-9) Eosinophils (%) (Auto) 2 % (0-3) Basophils (%) (Auto) 0 % (0-3) Neutrophils # (Auto) 8.2 x10^3uL (1.8-7.7) Lymphocytes # (Auto) 1.4 x10^3/uL (1.0-4.8) Monocytes # (Auto) 0.9 x10^3/uL (0.0-1.1) Eosinophils # (Auto) 0.3 x10^3/uL (0.0-0.7) Basophils # (Auto) 0.0 x10^3/uL (0.0-0.2) Sodium Level 141 mmol/L (136-145) Potassium Level 4.2 mmol/L (3.5-5.1) Chloride Level 105 mmol/L (98-107) Carbon Dioxide Level 29 mmol/L (21-32) Anion Gap 7 (6-14) Blood Urea Nitrogen 46 mg/dL (7-20) Creatinine 1.4 mg/dL (0.6-1.0) Estimated GFR (Cockcroft-Gault) 36.0 Glucose Level 81 mg/dL (70-99) Calcium Level 9.7 mg/dL (8.5-10.1) Microbiology 08/06/18 Blood Culture - Preliminary, Resulted NO GROWTH AFTER 2 DAYS Medications Current Medications Sodium Chloride 500 ml @ 500 mls/hr 1X ONCE IV Last administered on 08/06/18 16:21; Start 08/06/18 at 16:00; Stop 08/06/18 at 16:59; Status DC Ondansetron HCl (Zofran) 4 mg PRN Q6HRS PRN IV NAUSEA/VOMITING; Start 08/06/18 at 18:15 Morphine Sulfate (Morphine Sulfate) 1 mg PRN Q1HR PRN IV PAIN; Start 08/06/18 at 18:15 Lactulose (Lactulose) 20 gm PRN Q12HR PRN PO CONSTIPATION, 2ND CHOICE; Start at 18:15 Heparin Sodium (Porcine) (Heparin Sodium) 5,000 unit Q12HR SQ ; Start 08/06/18 at 21:00; Stop 08/06/18 at 21:00; Status DC Ascorbic Acid (Vitamin C) 500 mg DAILY PO Last administered on 08/08/18 08:57; Start 08/07/18 at 09:00 Aspirin (Derek Aspirin) 325 mg DAILY PO Last administered on 08/08/18 08:56; Start 08/07/18 at 09:00; Stop 08/08/18 at 15:05; Status DC Calcium/Vitamin D (Oscal D 500mg/ 200uts) 1 tab DAILY PO Last administered on 08:57; Start 08/07/18 at 09:00 Docusate Sodium (Colace) 100 mg BID PO Last administered on 08/08/18 21:39; Start 08/06/18 at 21:00 Ferrous Sulfate (Feosol) 325 mg DAILY PO Last administered on 08/08/18 08:56; Start 08/07/18 at 09:00 Acetaminophen/ Hydrocodone Bitart (Lortab 5/325) 1 tab PRN Q12HRS PRN PO MODERATE PAIN Last administered on 08/08/18 02:32; Start 08/06/18 at 18:15 Metoprolol Tartrate (Lopressor) 25 mg BID PO Last administered on 08/08/18 08: 57; Start 08/06/18 at 21:00 Nitroglycerin (Nitrostat) 0.4 mg PRN Q5MIN PRN SL CHEST PAIN; Start 08/06/18 at 18:15 Oxycodone/ Acetaminophen (Percocet 5/325) 1 tab PRN Q6HRS PRN PO SEVERE PAIN Last administered on 08/07/18 21:12; Start 08/06/18 at 18:15 Potassium Chloride (Klor-Con) 10 meq DAILY PO Last administered on 08/08/18 08: 56; Start 08/07/18 at 09:00 Acetaminophen (Tylenol) 500 mg PRN Q8HRS PRN PO MILD PAIN / TEMP Last administered on 08/07/18 14:07; Start 08/06/18 at 19:00; Stop 08/08/18 at 14:52; Status DC Bisacodyl (Dulcolax Supp) 10 mg PRN DAILY PRN HI CONSTIPATION; Start 08/06/18 at 19:00 Diltiazem HCl (Cardizem 24hr Cd) 180 mg DAILY PO Last administered on 08/08/18 08:56; Start 08/07/18 at 09:00 Citalopram Hydrobromide (CeleXA) 40 mg DAILY PO Last administered on 08/08/18 08:55; Start 08/07/18 at 09:00 Insulin Human Lispro (HumaLOG) 10 units TIDWMEALS SQ Last administered on 09:00; Start 08/06/18 at 19:30 Insulin Glargine (Lantus) 34 units DAILYWBKFT SQ Last administered on 08/08/18 09:00; Start 08/07/18 at 08:00 Losartan Potassium (Cozaar) 50 mg DAILY PO Last administered on 08/07/18 09:26 ; Start 08/07/18 at 09:00; Stop 08/08/18 at 07:30; Status DC Magnesium Hydroxide (Milk Of Magnesia) 2,400 mg PRN DAILY PRN PO CONSTIPATION, 1ST CHOICE; Start 08/06/18 at 19:00 Meclizine HCl (Antivert) 12.5 mg BID PO Last administered on 08/08/18 21:38; Start 08/06/18 at 21:00 Metolazone (Zaroxolyn) 5 mg DAILY PO Last administered on 08/07/18 09:23; Start 08/07/18 at 09:00; Stop 08/07/18 at 10:37; Status DC Multivitamins (Thera M Plus) 1 tab DAILY PO Last administered on 08/08/18 08:57 ; Start 08/07/18 at 09:00 Pantoprazole Sodium (Protonix) 40 mg DAILYAC PO Last administered on 08/08/18 08:58; Start 08/07/18 at 07:30 Polyethylene Glycol (miraLAX PACKET) 17 gm DAILY PO Last administered on 08:54; Start 08/07/18 at 09:00 Famotidine (Pepcid) 20 mg DAILY PO Last administered on 08/08/18 08:57; Start 08/07/18 at 09:00 Spironolactone (Aldactone) 25 mg DAILY PO Last administered on 08/07/18 09:27; Start 08/07/18 at 09:00; Stop 08/08/18 at 12:43; Status DC Warfarin Sodium (Coumadin) 5 mg DAILY16 PO ; Start 08/06/18 at 19:30; Stop at 20:46; Status DC Warfarin Sodium (Coumadin Per Physician) 1 each PRN DAILY PRN MC SEE COMMENTS; Start 08/06/18 at 19:00; Stop 08/06/18 at 20:46; Status DC Bumetanide (Bumex) 4 mg BID94 PO Last administered on 08/07/18 09:23; Start 08/07/18 at 09:00; Stop 08/07/18 at 10:33; Status DC Isosorbide Mononitrate (Imdur) 60 mg DAILY PO Last administered on 08/07/18 09: 27; Start 08/07/18 at 09:00; Stop 08/08/18 at 07:30; Status DC Non-Formulary Medication (Lidocaine (Aspercreme)) 1 each DAILY TP ; Start at 09:00; Status UNV Non-Formulary Medication (Omeprazole ) 40 mg DAILY PO ; Start 08/07/18 at 09:00; Status UNV Multi-Ingredient Ointment (Analgesic [place]) 1 marisol PRN TID PRN TP MUSCLE PAIN; Start 08/06/18 at 20:45; Stop 08/06/18 at 20:45; Status DC Mirtazapine (Remeron) 7.5 mg QHS PO Last administered on 08/08/18 21:39; Start 08/06/18 at 21:00 Multi-Ingredient Ointment (Analgesic [place]) 1 marisol PRN TID PRN TP MUSCLE PAIN Last administered on 08/06/18 22:17; Start 08/06/18 at 20:45 Apixaban (Eliquis) 5 mg BID PO Last administered on 08/08/18 08:57; Start at 21:00; Stop 08/08/18 at 13:15; Status DC Info (Anti-Coagulation Monitoring By Pharmacy) 1 each PRN DAILY PRN MC SEE COMMENTS Last administered on 08/08/18at 13:22; Start 08/06/18 at 21:00 Acetaminophen (Tylenol) 650 mg PRN Q6HRS PRN PO TEMP > 100.4F; Start 08/07/18 at 09:00 Acetaminophen (Tylenol Supp) 650 mg PRN Q4HRS PRN HI TEMP > 100.4F; Start at 09:00 Bumetanide (Bumex) 2 mg BID94 PO ; Start 08/07/18 at 16:00; Stop 08/08/18 at 12:43 ; Status DC Losartan Potassium (Cozaar) 50 mg NOON PO ; Start 08/08/18 at 12:00 Naloxone HCl (Narcan) 0.4 mg 1X ONCE IV Last administered on 08/08/18 10:47; Start 08/08/18 at 11:30; Stop 08/08/18 at 11:31; Status DC Atorvastatin Calcium (Lipitor) 40 mg QHS PO Last administered on 08/08/18 21:39 ; Start 08/08/18 at 21:00 Levetiracetam 500 mg/Dextrose 105 ml @ 420 mls/hr Q12HR IV Last administered on 08/08/18 21:39; Start 08/08/18 at 12:00 Apixaban (Eliquis) 2.5 mg BID PO ; Start 08/08/18 at 21:00; Stop 08/08/18 at 21:00 ; Status DC Enoxaparin Sodium (Lovenox 40mg Syringe) 40 mg Q24H SQ Last administered on 08/08at 16:00; Start 08/08/18 at 16:00 Metoprolol Tartrate (Lopressor Vial) 5 mg PRN Q6HRS PRN IVP HYPERTENSION, SEE COMMENTS; Start 08/08/18 at 15:45; Stop 08/08/18 at 17:09; Status DC Metoprolol Tartrate (Lopressor Vial) 5 mg Q6HRS IVP Last administered on at 05:47; Start 08/08/18 at 18:00 Dextrose (Dextrose 50%-Water Syringe) 25 gm STK-MED ONCE IV ; Start 08/08/18 at 17:25; Stop 08/08/18 at 17:26; Status DC Dextrose (Dextrose 50%-Water Syringe) 25 gm STK-MED ONCE IV ; Start 08/08/18 at 21:40; Stop 08/08/18 at 21:41; Status DC Dextrose (Dextrose 50%-Water Syringe) 12.5 gm PRN Q15MIN PRN IV SEE COMMENTS Last administered on 08/08/18at 21:45; Start 08/08/18 at 21:45 Dextrose (Dextrose 50%-Water Syringe) 25 gm STK-MED ONCE IV ; Start 08/08/18 at 18:00; Stop 08/09/18 at 08:52; Status DC Active Scripts Active Reported Doxycycline Hyclate 100 Mg Tablet 100 Mg PO BID Eliquis (Apixaban) 5 Mg Tablet 5 Mg PO BID Aspercreme 10% Cream (Trolamine Salicylate/Aloe Vera) 35.4 Gm Cream..g. 35.4 Gm TP TID PRN PRN Isosorbide Mononitrate Er (Isosorbide Mononitrate) 60 Mg Tab.er.24h 60 Mg PO DAILY Aspercreme (Lidocaine) 1 Each Adh..patch 1 Each TP DAILY Bumetanide 2 Mg Tablet 4 Mg PO BID Spironolactone 25 Mg Tablet 25 Mg PO DAILY Potassium Chloride 10 Meq Tablet.er 10 Meq PO DAILY Omeprazole 40 Mg Capsule.dr 40 Mg PO DAILY NITROGLYCERIN SubLingual (Nitroglycerin) 0.4 Mg Tab.subl 0.4 Mg SL PRN Q5MIN PRN Escitalopram Oxalate 20 Mg Tablet 1 Tab PO DAILY Diltiazem 24HR Cd (Diltiazem Hcl) 180 Mg Cap.er.24h 1 Cap PO DAILY Ascorbic Acid 500 Mg Tablet 500 Mg PO Multivitamins (Multivitamin) 1 Each Tablet 1 Tab PO DAILY Metolazone 5 Mg Tablet 5 Mg PO DAILY Novolog Flexpen (Insulin Aspart) 100 Unit/1 Ml Insuln.pen 10 Unit SQ TIDAC Tresiba Flextouch U-100 (Insulin Degludec) 100 Unit/1 Ml Insuln.pen 34 Unit SQ DAILYWBKFT Ferrous Sulfate 325 Mg Tablet 1 Tab PO DAILY Dulcolax (Bisacodyl) 10 Mg Supp.rect 10 Mg RC PRN DAILY PRN Aspirin 325 Mg Tablet 1 Tab PO DAILY Metoprolol Tartrate 25 Mg Tablet 25 Tab PO BID Acetaminophen 500 Mg Tablet 500 Mg PO PRN Q8HRS PRN Meclizine Hcl 12.5 Mg Tablet 1 Tab PO BID Hydrocodone-Apap 5-325 (Hydrocodone Bit/Acetaminophen) 1 Each Tablet 1 Tab PO Q12HR PRN Stool Softener (Docusate Sodium) 100 Mg Capsule 100 Mg PO BID Losartan Potassium 100 Mg Tablet 50 Mg PO DAILY Vitals/I & O Vital Sign - Last 24 Hours 08/08/18 08/08/18 08/08/18 08/08/18 10:40 10:45 10:50 11:57 Pulse 69 77 80 Resp 16 B/P (MAP) 118/45 (69) 94/59 (71) 116/56 (76) 145/56 Pulse Ox 99 97 O2 Delivery Room Air Room Air Room Air 08/08/18 08/08/18 08/08/18 08/08/18 12:00 15:00 15:15 15:21 Temp 97.6 97.6 Pulse 93 B/P (MAP) 119/81 (94) Pulse Ox 97 97 97 O2 Delivery Room Air Bi-pap BiPAP/CPAP Room Air 08/08/18 08/08/18 08/08/18 08/08/18 16:00 17:00 17:22 18:00 Pulse 93 93 93 B/P (MAP) 148/101 (117) 136/92 (107) 93/53 (66) Pulse Ox 97 98 99 97 O2 Delivery BiPAP/CPAP BiPAP/CPAP BiPAP/CPAP BiPAP/CPAP O2 Flow Rate 21.0 21.0 21.0 08/08/18 08/08/18 08/08/18 08/08/18 19:00 19:52 20:00 20:00 Temp 97.7 97.7 Pulse 76 76 Resp 16 16 B/P (MAP) 108/39 (62) 109/45 (66) Pulse Ox 100 100 99 O2 Delivery BiPAP/CPAP BiPAP/CPAP BiPAP/CPAP Bi-pap 08/08/18 08/08/18 08/08/18 08/08/18 21:00 21:00 22:00 23:00 Pulse 79 84 79 74 Resp 18 20 16 B/P (MAP) 94/50 94/50 (65) 102/55 (71) 128/69 (88) Pulse Ox 99 99 98 O2 Delivery BiPAP/CPAP BiPAP/CPAP BiPAP/CPAP 08/08/18 08/09/18 08/09/18 08/09/18 23:41 00:00 00:00 00:22 Temp 97.7 97.7 Pulse 67 94 Resp 16 B/P (MAP) 133/57 (82) 133/57 Pulse Ox 100 98 O2 Delivery BiPAP/CPAP BiPAP/CPAP Bi-pap 08/09/18 08/09/18 08/09/18 08/09/18 01:00 01:44 02:00 03:00 Pulse 90 85 80 Resp 16 16 16 B/P (MAP) 128/54 (78) 137/80 (99) 124/67 (86) Pulse Ox 100 100 100 100 O2 Delivery BiPAP/CPAP BiPAP/CPAP BiPAP/CPAP BiPAP/CPAP 08/09/18 08/09/18 08/09/18 08/09/18 04:00 04:00 04:11 05:00 Temp 97.6 97.6 Pulse 80 92 Resp 16 18 B/P (MAP) 132/74 (93) 121/68 (85) Pulse Ox 100 100 100 O2 Delivery BiPAP/CPAP Bi-pap BiPAP/CPAP BiPAP/CPAP 08/09/18 08/09/18 08/09/18 08/09/18 05:47 05:58 06:00 07:40 Pulse 91 87 Resp 16 B/P (MAP) 129/69 100/61 (74) Pulse Ox 100 100 95 O2 Delivery BiPAP/CPAP BiPAP/CPAP BiPAP/CPAP 08/09/18 08:49 Pulse Ox 100 O2 Delivery BiPAP/CPAP Intake and Output 08/08/18 08/08/18 08/09/18 15:00 23:00 07:00 Intake Total 200 ml 105 ml 105 ml Output Total 615 ml 315 ml Balance 200 ml -510 ml -210 ml WILLY VINCENT MD Aug 09, 2018 09:01
--- NOTE | 2018-08-09 09:13 | PDOC ---
PROGRESS NOTES Assessment Problems Medical Problems: (1) Change in mental status Status: Acute Left temporal stroke with aphasia, receptive and expressive components. New acute infarction in the region of the right thalamus, and possibly posterior right internal capsule and medial left thalamus, possible new tiny focus of acute infarction in the anterior left temporal lobe. Right P2 intracranial stenosis The combination of bilateral infarcts, although each is fairly small and non- life-threatening, has rendered her in a comatose state Lumbar spine disease: old superior L2 compression fracture, advanced degenerative disc disease L5-S1, severe spinal stenosis L4-5, right greater than left L5-S1 neural foramina compromise, mild to moderate narrowing of the L5 -S1 neural foramen, minimal narrowing of the left L5-S1 and L3-4 neural foramina , grade 1 anterior spondylolisthesis at L4-5, negligible anterior spondylolisthesis at L5-S1. There is facet degenerative change greater inferiorly of the lumbar spine. Cervical spondylosis: degenerative disc disease at C4-C7 Plan Lovenox Risks outweigh benefits of heparin, acute intracranial hemorrhage. 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 Also, the patient is at risk for further embolic strokes Fully discussed with patient's daughters. Agree with palliative care consult Subjective None Objective Vital Signs Date Time Temp Pulse Resp B/P (MAP) Pulse Ox O2 Delivery O2 Flow Rate FiO2 08/09/18 08:49 100 BiPAP/CPAP 08/09/18 06:00 87 16 100/61 (74) 08/09/18 04:00 97.6 97.6 08/08/18 18:00 21.0 Intake and Output 08/09/18 07:00 Intake Total 410 ml Output Total 930 ml Balance -520 ml Intake Oral 200 ml IV Total 210 ml Output Urine Total 930 ml PHYSICAL EXAM Eyes closed, does not respond to voice, Johnny-Silva respirations PERRL. EOMI. CN: no focal findings. Muscle tone: normal. Muscle strength: Extensor posturing to mild stimulation DTR: 1+ Plantar reflex: Silent Gait: not examined. Sensory exam: Not cooperative. Cerebellar: Not cooperative Review of Relevant I have reviewed the following items alejandra (where applicable) has been applied. Labs Laboratory Tests Test 4/3/19 12:28 08/07/18 16:21 08/07/18 20:50 08/08/18 07:19 Glucose (Fingerstick) 173 mg/dL (70-99) 72 mg/dL (70-99) 161 mg/dL (70-99) 110 mg/dL (70-99) Test 08/08/18 07:40 08/08/18 10:41 08/08/18 11:55 08/08/18 17:23 White Blood Count 8.3 x10^3/uL (4.0-11.0) Red Blood Count 4.00 x10^6/uL (3.50-5.40) Hemoglobin 13.2 g/dL (12.0-15.5) Hematocrit 38.9 % (36.0-47.0) Mean Corpuscular Volume 97 fL (79-100) Mean Corpuscular Hemoglobin 33 pg (25-35) Mean Corpuscular Hemoglobin Concent 34 g/dL (31-37) Red Cell Distribution Width 14.6 % (11.5-14.5) Platelet Count 324 x10^3/uL (140-400) Neutrophils (%) (Auto) 71 % (31-73) Lymphocytes (%) (Auto) 18 % (24-48) Monocytes (%) (Auto) 8 % (0-9) Eosinophils (%) (Auto) 3 % (0-3) Basophils (%) (Auto) 1 % (0-3) Neutrophils # (Auto) 5.9 x10^3uL (1.8-7.7) Lymphocytes # (Auto) 1.5 x10^3/uL (1.0-4.8) Monocytes # (Auto) 0.7 x10^3/uL (0.0-1.1) Eosinophils # (Auto) 0.3 x10^3/uL (0.0-0.7) Basophils # (Auto) 0.1 x10^3/uL (0.0-0.2) Sodium Level 140 mmol/L (136-145) Potassium Level 4.1 mmol/L (3.5-5.1) Chloride Level 101 mmol/L (98-107) Carbon Dioxide Level 30 mmol/L (21-32) Anion Gap 9 (6-14) Blood Urea Nitrogen 52 mg/dL (7-20) Creatinine 1.6 mg/dL (0.6-1.0) Estimated GFR (Cockcroft-Gault) 30.9 Glucose Level 120 mg/dL (70-99) Calcium Level 9.9 mg/dL (8.5-10.1) Magnesium Level 2.6 mg/dL (1.8-2.4) Triglycerides Level 205 mg/dL (0-150) Cholesterol Level 257 mg/dL (0-200) LDL Cholesterol, Calculated 182 mg/dL (0-100) VLDL Cholesterol, Calculated 41 mg/dL (0-40) Non-HDL Cholesterol Calculated 223 mg/dL (0-129) HDL Cholesterol 34 mg/dL (40-60) Cholesterol/HDL Ratio 7.6 Glucose (Fingerstick) 219 mg/dL (70-99) 48 mg/dL (70-99) O2 Saturation 98 % (92-99) Arterial Blood pH 7.54 (7.35-7.45) Arterial Blood pCO2 at Patient Temp 32 mmHg (35-46) Arterial Blood pO2 at Patient Temp 100 mmHg (65-108) Arterial Blood HCO3 27 mmol/L (21-28) Arterial Blood Base Excess 4 mmol/L (-3-3) FiO2 21% Test 08/08/18 17:52 08/08/18 21:37 08/08/18 22:02 08/09/18 04:30 Glucose (Fingerstick) 189 mg/dL (70-99) 68 mg/dL (70-99) 136 mg/dL (70-99) White Blood Count 10.8 x10^3/uL (4.0-11.0) Red Blood Count 3.80 x10^6/uL (3.50-5.40) Hemoglobin 12.4 g/dL (12.0-15.5) Hematocrit 36.8 % (36.0-47.0) Mean Corpuscular Volume 97 fL (79-100) Mean Corpuscular Hemoglobin 33 pg (25-35) Mean Corpuscular Hemoglobin Concent 34 g/dL (31-37) Red Cell Distribution Width 14.8 % (11.5-14.5) Platelet Count 315 x10^3/uL (140-400) Neutrophils (%) (Auto) 76 % (31-73) Lymphocytes (%) (Auto) 13 % (24-48) Monocytes (%) (Auto) 8 % (0-9) Eosinophils (%) (Auto) 2 % (0-3) Basophils (%) (Auto) 0 % (0-3) Neutrophils # (Auto) 8.2 x10^3uL (1.8-7.7) Lymphocytes # (Auto) 1.4 x10^3/uL (1.0-4.8) Monocytes # (Auto) 0.9 x10^3/uL (0.0-1.1) Eosinophils # (Auto) 0.3 x10^3/uL (0.0-0.7) Basophils # (Auto) 0.0 x10^3/uL (0.0-0.2) Sodium Level 141 mmol/L (136-145) Potassium Level 4.2 mmol/L (3.5-5.1) Chloride Level 105 mmol/L (98-107) Carbon Dioxide Level 29 mmol/L (21-32) Anion Gap 7 (6-14) Blood Urea Nitrogen 46 mg/dL (7-20) Creatinine 1.4 mg/dL (0.6-1.0) Estimated GFR (Cockcroft-Gault) 36.0 Glucose Level 81 mg/dL (70-99) Calcium Level 9.7 mg/dL (8.5-10.1) Laboratory Tests Test 08/08/18 10:41 08/08/18 11:55 08/08/18 17:23 08/08/18 17:52 Glucose (Fingerstick) 219 mg/dL (70-99) 48 mg/dL (70-99) 189 mg/dL (70-99) O2 Saturation 98 % (92-99) Arterial Blood pH 7.54 (7.35-7.45) Arterial Blood pCO2 at Patient Temp 32 mmHg (35-46) Arterial Blood pO2 at Patient Temp 100 mmHg (65-108) Arterial Blood HCO3 27 mmol/L (21-28) Arterial Blood Base Excess 4 mmol/L (-3-3) FiO2 21% Test 08/08/18 21:37 08/08/18 22:02 08/09/18 04:30 Glucose (Fingerstick) 68 mg/dL (70-99) 136 mg/dL (70-99) White Blood Count 10.8 x10^3/uL (4.0-11.0) Red Blood Count 3.80 x10^6/uL (3.50-5.40) Hemoglobin 12.4 g/dL (12.0-15.5) Hematocrit 36.8 % (36.0-47.0) Mean Corpuscular Volume 97 fL (79-100) Mean Corpuscular Hemoglobin 33 pg (25-35) Mean Corpuscular Hemoglobin Concent 34 g/dL (31-37) Red Cell Distribution Width 14.8 % (11.5-14.5) Platelet Count 315 x10^3/uL (140-400) Neutrophils (%) (Auto) 76 % (31-73) Lymphocytes (%) (Auto) 13 % (24-48) Monocytes (%) (Auto) 8 % (0-9) Eosinophils (%) (Auto) 2 % (0-3) Basophils (%) (Auto) 0 % (0-3) Neutrophils # (Auto) 8.2 x10^3uL (1.8-7.7) Lymphocytes # (Auto) 1.4 x10^3/uL (1.0-4.8) Monocytes # (Auto) 0.9 x10^3/uL (0.0-1.1) Eosinophils # (Auto) 0.3 x10^3/uL (0.0-0.7) Basophils # (Auto) 0.0 x10^3/uL (0.0-0.2) Sodium Level 141 mmol/L (136-145) Potassium Level 4.2 mmol/L (3.5-5.1) Chloride Level 105 mmol/L (98-107) Carbon Dioxide Level 29 mmol/L (21-32) Anion Gap 7 (6-14) Blood Urea Nitrogen 46 mg/dL (7-20) Creatinine 1.4 mg/dL (0.6-1.0) Estimated GFR (Cockcroft-Gault) 36.0 Glucose Level 81 mg/dL (70-99) Calcium Level 9.7 mg/dL (8.5-10.1) Microbiology 08/06/18 Blood Culture - Preliminary, Resulted NO GROWTH AFTER 2 DAYS Medications Current Medications Sodium Chloride 500 ml @ 500 mls/hr 1X ONCE IV Last administered on 08/06/18at 16:21; Start 08/06/18 at 16:00; Stop 08/06/18 at 16:59; Status DC Ondansetron HCl (Zofran) 4 mg PRN Q6HRS PRN IV NAUSEA/VOMITING; Start 08/06/18 at 18:15 Morphine Sulfate (Morphine Sulfate) 1 mg PRN Q1HR PRN IV PAIN; Start 08/06/18 at 18:15 Lactulose (Lactulose) 20 gm PRN Q12HR PRN PO CONSTIPATION, 2ND CHOICE; Start at 18:15 Heparin Sodium (Porcine) (Heparin Sodium) 5,000 unit Q12HR SQ ; Start 08/06/18 at 21:00; Stop 08/06/18 at 21:00; Status DC Ascorbic Acid (Vitamin C) 500 mg DAILY PO Last administered on 08/08/18 08:57; Start 08/07/18 at 09:00 Aspirin (Derek Aspirin) 325 mg DAILY PO Last administered on 08/08/18 08:56; Start 08/07/18 at 09:00; Stop 08/08/18 at 15:05; Status DC Calcium/Vitamin D (Oscal D 500mg/ 200uts) 1 tab DAILY PO Last administered on 08:57; Start 08/07/18 at 09:00 Docusate Sodium (Colace) 100 mg BID PO Last administered on 08/08/18 21:39; Start 08/06/18 at 21:00 Ferrous Sulfate (Feosol) 325 mg DAILY PO Last administered on 08/08/18 08:56; Start 08/07/18 at 09:00 Acetaminophen/ Hydrocodone Bitart (Lortab 5/325) 1 tab PRN Q12HRS PRN PO MODERATE PAIN Last administered on 08/08/18 02:32; Start 08/06/18 at 18:15 Metoprolol Tartrate (Lopressor) 25 mg BID PO Last administered on 08/08/18 08: 57; Start 08/06/18 at 21:00 Nitroglycerin (Nitrostat) 0.4 mg PRN Q5MIN PRN SL CHEST PAIN; Start 08/06/18 at 18:15 Oxycodone/ Acetaminophen (Percocet 5/325) 1 tab PRN Q6HRS PRN PO SEVERE PAIN Last administered on 08/07/18 21:12; Start 08/06/18 at 18:15 Potassium Chloride (Klor-Con) 10 meq DAILY PO Last administered on 08/08/18 08: 56; Start 08/07/18 at 09:00 Acetaminophen (Tylenol) 500 mg PRN Q8HRS PRN PO MILD PAIN / TEMP Last administered on 08/07/18 14:07; Start 08/06/18 at 19:00; Stop 08/08/18 at 14:52; Status DC Bisacodyl (Dulcolax Supp) 10 mg PRN DAILY PRN [place] CONSTIPATION; Start 08/06/18 at 19:00 Diltiazem HCl (Cardizem 24hr Cd) 180 mg DAILY PO Last administered on 08/08/18 08:56; Start 08/07/18 at 09:00 Citalopram Hydrobromide (CeleXA) 40 mg DAILY PO Last administered on 08/08/18 08:55; Start 08/07/18 at 09:00 Insulin Human Lispro (HumaLOG) 10 units TIDWMEALS SQ Last administered on 09:00; Start 08/06/18 at 19:30 Insulin Glargine (Lantus) 34 units DAILYWBKFT SQ Last administered on 08/08/18 09:00; Start 08/07/18 at 08:00 Losartan Potassium (Cozaar) 50 mg DAILY PO Last administered on 08/07/18 09:26 ; Start 08/07/18 at 09:00; Stop 08/08/18 at 07:30; Status DC Magnesium Hydroxide (Milk Of Magnesia) 2,400 mg PRN DAILY PRN PO CONSTIPATION, 1ST CHOICE; Start 08/06/18 at 19:00 Meclizine HCl (Antivert) 12.5 mg BID PO Last administered on 08/08/18 21:38; Start 08/06/18 at 21:00 Metolazone (Zaroxolyn) 5 mg DAILY PO Last administered on 08/07/18 09:23; Start 08/07/18 at 09:00; Stop 08/07/18 at 10:37; Status DC Multivitamins (Thera M Plus) 1 tab DAILY PO Last administered on 08/08/18 08:57 ; Start 08/07/18 at 09:00 Pantoprazole Sodium (Protonix) 40 mg DAILYAC PO Last administered on 08/08/18 08:58; Start 08/07/18 at 07:30 Polyethylene Glycol (miraLAX PACKET) 17 gm DAILY PO Last administered on 08:54; Start 08/07/18 at 09:00 Famotidine (Pepcid) 20 mg DAILY PO Last administered on 08/08/18 08:57; Start 08/07/18 at 09:00 Spironolactone (Aldactone) 25 mg DAILY PO Last administered on 08/07/18 09:27; Start 08/07/18 at 09:00; Stop 08/08/18 at 12:43; Status DC Warfarin Sodium (Coumadin) 5 mg DAILY16 PO ; Start 08/06/18 at 19:30; Stop at 20:46; Status DC Warfarin Sodium (Coumadin Per Physician) 1 each PRN DAILY PRN MC SEE COMMENTS; Start 08/06/18 at 19:00; Stop 08/06/18 at 20:46; Status DC Bumetanide (Bumex) 4 mg BID94 PO Last administered on 08/07/18at 09:23; Start 08/07/18 at 09:00; Stop 08/07/18 at 10:33; Status DC Isosorbide Mononitrate (Imdur) 60 mg DAILY PO Last administered on 08/07/18 09: 27; Start 08/07/18 at 09:00; Stop 08/08/18 at 07:30; Status DC Non-Formulary Medication (Lidocaine (Aspercreme)) 1 each DAILY TP ; Start at 09:00; Status UNV Non-Formulary Medication (Omeprazole ) 40 mg DAILY PO ; Start 08/07/18 at 09:00; Status UNV Multi-Ingredient Ointment (Analgesic Nu Mine) 1 marisol PRN TID PRN TP MUSCLE PAIN; Start 08/06/18 at 20:45; Stop 08/06/18 at 20:45; Status DC Mirtazapine (Remeron) 7.5 mg QHS PO Last administered on 08/08/18at 21:39; Start 08/06/18 at 21:00 Multi-Ingredient Ointment (Analgesic Nu Mine) 1 marisol PRN TID PRN TP MUSCLE PAIN Last administered on 08/06/18at 22:17; Start 08/06/18 at 20:45 Apixaban (Eliquis) 5 mg BID PO Last administered on 08/08/18at 08:57; Start at 21:00; Stop 08/08/18 at 13:15; Status DC Info (Anti-Coagulation Monitoring By Pharmacy) 1 each PRN DAILY PRN MC SEE COMMENTS Last administered on 08/08/18at 13:22; Start 08/06/18 at 21:00 Acetaminophen (Tylenol) 650 mg PRN Q6HRS PRN PO TEMP > 100.4F; Start 08/07/18 at 09:00 Acetaminophen (Tylenol Supp) 650 mg PRN Q4HRS PRN [place] TEMP > 100.4F; Start at 09:00 Bumetanide (Bumex) 2 mg BID94 PO ; Start 08/07/18 at 16:00; Stop 08/08/18 at 12:43 ; Status DC Losartan Potassium (Cozaar) 50 mg NOON PO ; Start 08/08/18 at 12:00 Naloxone HCl (Narcan) 0.4 mg 1X ONCE IV Last administered on 08/08/18at 10:47; Start 08/08/18 at 11:30; Stop 08/08/18 at 11:31; Status DC Atorvastatin Calcium (Lipitor) 40 mg QHS PO Last administered on 08/08/18at 21:39 ; Start 08/08/18 at 21:00 Levetiracetam 500 mg/Dextrose 105 ml @ 420 mls/hr Q12HR IV Last administered on 08/08/18at 21:39; Start 08/08/18 at 12:00 Apixaban (Eliquis) 2.5 mg BID PO ; Start 08/08/18 at 21:00; Stop 08/08/18 at 21:00 ; Status DC Enoxaparin Sodium (Lovenox 40mg Syringe) 40 mg Q24H SQ Last administered on 08/08at 16:00; Start 08/08/18 at 16:00 Metoprolol Tartrate (Lopressor Vial) 5 mg PRN Q6HRS PRN IVP HYPERTENSION, SEE COMMENTS; Start 08/08/18 at 15:45; Stop 08/08/18 at 17:09; Status DC Metoprolol Tartrate (Lopressor Vial) 5 mg Q6HRS IVP Last administered on at 05:47; Start 08/08/18 at 18:00 Dextrose (Dextrose 50%-Water Syringe) 25 gm STK-MED ONCE IV ; Start 08/08/18 at 17:25; Stop 08/08/18 at 17:26; Status DC Dextrose (Dextrose 50%-Water Syringe) 25 gm STK-MED ONCE IV ; Start 08/08/18 at 21:40; Stop 08/08/18 at 21:41; Status DC Dextrose (Dextrose 50%-Water Syringe) 12.5 gm PRN Q15MIN PRN IV SEE COMMENTS Last administered on 08/08/18at 21:45; Start 08/08/18 at 21:45 Dextrose (Dextrose 50%-Water Syringe) 25 gm STK-MED ONCE IV ; Start 08/08/18 at 18:00; Stop 08/09/18 at 08:52; Status DC Active Scripts Active Reported Doxycycline Hyclate 100 Mg Tablet 100 Mg PO BID Eliquis (Apixaban) 5 Mg Tablet 5 Mg PO BID Aspercreme 10% Cream (Trolamine Salicylate/Aloe Vera) 35.4 Gm Cream..g. 35.4 Gm TP TID PRN PRN Isosorbide Mononitrate Er (Isosorbide Mononitrate) 60 Mg Tab.er.24h 60 Mg PO DAILY Aspercreme (Lidocaine) 1 Each Adh..patch 1 Each TP DAILY Bumetanide 2 Mg Tablet 4 Mg PO BID Spironolactone 25 Mg Tablet 25 Mg PO DAILY Potassium Chloride 10 Meq Tablet.er 10 Meq PO DAILY Omeprazole 40 Mg Capsule.dr 40 Mg PO DAILY NITROGLYCERIN SubLingual (Nitroglycerin) 0.4 Mg Tab.subl 0.4 Mg SL PRN Q5MIN PRN Escitalopram Oxalate 20 Mg Tablet 1 Tab PO DAILY Diltiazem 24HR Cd (Diltiazem Hcl) 180 Mg Cap.er.24h 1 Cap PO DAILY Ascorbic Acid 500 Mg Tablet 500 Mg PO Multivitamins (Multivitamin) 1 Each Tablet 1 Tab PO DAILY Metolazone 5 Mg Tablet 5 Mg PO DAILY Novolog Flexpen (Insulin Aspart) 100 Unit/1 Ml Insuln.pen 10 Unit SQ TIDAC Tresiba Flextouch U-100 (Insulin Degludec) 100 Unit/1 Ml Insuln.pen 34 Unit SQ DAILYWBKFT Ferrous Sulfate 325 Mg Tablet 1 Tab PO DAILY Dulcolax (Bisacodyl) 10 Mg Supp.rect 10 Mg RC PRN DAILY PRN Aspirin 325 Mg Tablet 1 Tab PO DAILY Metoprolol Tartrate 25 Mg Tablet 25 Tab PO BID Acetaminophen 500 Mg Tablet 500 Mg PO PRN Q8HRS PRN Meclizine Hcl 12.5 Mg Tablet 1 Tab PO BID Hydrocodone-Apap 5-325 (Hydrocodone Bit/Acetaminophen) 1 Each Tablet 1 Tab PO Q12HR PRN Stool Softener (Docusate Sodium) 100 Mg Capsule 100 Mg PO BID Losartan Potassium 100 Mg Tablet 50 Mg PO DAILY Vitals/I & O Vital Sign - Last 24 Hours 08/08/18 08/08/18 08/08/18 08/08/18 10:40 10:45 10:50 11:57 Pulse 69 77 80 Resp 16 B/P (MAP) 118/45 (69) 94/59 (71) 116/56 (76) 145/56 Pulse Ox 99 97 O2 Delivery Room Air Room Air Room Air 08/08/18 08/08/18 08/08/18 08/08/18 12:00 15:00 15:15 15:21 Temp 97.6 97.6 Pulse 93 B/P (MAP) 119/81 (94) Pulse Ox 97 97 97 O2 Delivery Room Air Bi-pap BiPAP/CPAP Room Air 08/08/18 08/08/18 08/08/18 08/08/18 16:00 17:00 17:22 18:00 Pulse 93 93 93 B/P (MAP) 148/101 (117) 136/92 (107) 93/53 (66) Pulse Ox 97 98 99 97 O2 Delivery BiPAP/CPAP BiPAP/CPAP BiPAP/CPAP BiPAP/CPAP O2 Flow Rate 21.0 21.0 21.0 08/08/18 08/08/18 08/08/18 08/08/18 19:00 19:52 20:00 20:00 Temp 97.7 97.7 Pulse 76 76 Resp 16 16 B/P (MAP) 108/39 (62) 109/45 (66) Pulse Ox 100 100 99 O2 Delivery BiPAP/CPAP BiPAP/CPAP BiPAP/CPAP Bi-pap 08/08/18 08/08/18 08/08/18 08/08/18 21:00 21:00 22:00 23:00 Pulse 79 84 79 74 Resp 18 20 16 B/P (MAP) 94/50 94/50 (65) 102/55 (71) 128/69 (88) Pulse Ox 99 99 98 O2 Delivery BiPAP/CPAP BiPAP/CPAP BiPAP/CPAP 08/08/18 08/09/18 08/09/18 08/09/18 23:41 00:00 00:00 00:22 Temp 97.7 97.7 Pulse 67 94 Resp 16 B/P (MAP) 133/57 (82) 133/57 Pulse Ox 100 98 O2 Delivery BiPAP/CPAP BiPAP/CPAP Bi-pap 08/09/18 08/09/18 08/09/18 08/09/18 01:00 01:44 02:00 03:00 Pulse 90 85 80 Resp 16 16 16 B/P (MAP) 128/54 (78) 137/80 (99) 124/67 (86) Pulse Ox 100 100 100 100 O2 Delivery BiPAP/CPAP BiPAP/CPAP BiPAP/CPAP BiPAP/CPAP 08/09/18 08/09/18 08/09/18 08/09/18 04:00 04:00 04:11 05:00 Temp 97.6 97.6 Pulse 80 92 Resp 16 18 B/P (MAP) 132/74 (93) 121/68 (85) Pulse Ox 100 100 100 O2 Delivery BiPAP/CPAP Bi-pap BiPAP/CPAP BiPAP/CPAP 08/09/18 08/09/18 08/09/18 08/09/18 05:47 05:58 06:00 07:40 Pulse 91 87 Resp 16 B/P (MAP) 129/69 100/61 (74) Pulse Ox 100 100 95 O2 Delivery BiPAP/CPAP BiPAP/CPAP BiPAP/CPAP 08/09/18 08:49 Pulse Ox 100 O2 Delivery BiPAP/CPAP Intake and Output 08/08/18 08/08/18 08/09/18 15:00 23:00 07:00 Intake Total 200 ml 105 ml 105 ml Output Total 615 ml 315 ml Balance 200 ml -510 ml -210 ml Images MR of the brain without contrast HISTORY: Acute loss of consciousness. Weakness. Recent stroke in the left temporal lobe. TECHNIQUE: Axial T1-weighted, T2-weighted, FLAIR, diffusion, sagittal T1 weighted, axial gradient echo, coronal T2-weighted images are obtained. Emergency interpretation was requested. COMPARISON: August 07, 2018. FINDINGS: Moderate to severe motion degradation on the exam, patient was unable to remain still. Since the prior study, there has been development of new restricted diffusion in the right thalamus, may also involve the posterior internal capsule. There is some tiny signal in the medial left thalamus, could be artifact versus small acute infarction. Areas of restricted diffusion in the left temporal lobe are again seen. There may be a very small new focus of ischemia along the cortical surface of the left temporal lobe since prior study. There is some increased T2 signal within the ju was also described on the prior study, difficult to accurately compare due to the motion. Cerebral atrophy is again seen. There appear to be foci of T2 and FLAIR signal within the bilateral white matter, probably similar to the prior study, but more difficult to visualize today due to the motion degradation. No obvious midline shift or abnormal extra-axial fluid collection. IMPRESSION: 1. Evidence of a new acute infarction in the region of the right thalamus, and possibly posterior right internal capsule and medial left thalamus. 2. Left temporal infarction changes are again seen. There may be a new tiny focus of acute infarction in the anterior left temporal lobe. 3. Otherwise, severe motion degradation limits the usefulness of this exam. MRA Brain History: Weakness, suspected right CVA, acute change in level of consciousness Technique: 3-D [id number] MR angiography was performed of the brain. Comparison: None Findings: Determination of any degree of stenosis is based on NASCET criteria. There is significant motion degradation. Left vertebral artery constitutes the basilar artery. Right vertebral artery is not seen. Region of PICAs is not included. There is visualization left AICA, not well seen on the right. There is visualization of segments of bilateral superior cerebellar arteries. There is patent left posterior communicating artery, small vessel in region of right posterior communicating artery more likely venous. There is visualization of the internal carotid arteries bilaterally at the skull base. No significant anterior communicating artery is visualized. Accurate evaluation for stenosis is limited due to degree of motion. There is likely at least moderate stenosis of the more distal right P2 segment. There is significant/critical stenosis with greater than than 90% luminal diameter reduction of the right P1 segment. There are likely tandem stenoses of the proximal left superior cerebellar artery, at least moderate luminal diameter reduction. 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 There is degree of stenoses of the cavernous internal carotid arteries bilaterally difficult to accurately quantify due to motion. There is other wall irregularity of the middle and anterior cerebral arteries likely due to intracranial atherosclerotic disease. There is at least mild stenosis near origin of the left A1 segment. Impression: 1. There is significant motion degradation. There is significant/critical stenosis right P1 segment. There are moderate tandem stenoses of the proximal left superior cerebellar artery. There is degree of narrowing of the cavernous internal carotid arteries bilaterally due to plaque. Neck MRA without contrast History: Weakness, suspected right CVA, acute change in level of consciousness Technique: [id number] MR angiography was performed of the neck. Comparison: None Findings: Determination of any degree of stenosis is based on NASCET criteria. There is significant motion degradation. There is antegrade flow of segments of the bilateral vertebral arteries although right vertebral artery very small in caliber and variably poorly visualized. There is antegrade flow in the bilateral common and internal carotid arteries. No significant stenosis is identified of the cervical internal carotid arteries allowing for significant motion. Brachiocephalic artery is not well-visualized in its entirety due to signal loss and motion. Impression: 1. Exam is limited due to motion, no significant stenosis identified of the cervical internal carotid arteries. Right vertebral artery is variably poorly visualized and small in caliber, may be chronic. LEFT VENTRICLE The left ventricle is normal size. Proximal septal thickening is noted. The left ventricular systolic function is normal and the ejection fraction is within normal range. The Ejection Fraction is 50-55%. There is normal LV segmental wall motion. Transmitral Doppler flow pattern is Grade III-reversible restrictive diastolic dysfunction. RIGHT VENTRICLE The right ventricle is normal size. There is normal right ventricular wall thickness. The right ventricular systolic function is normal. ATRIA The left atrium is mildly dilated. The right atrium is mildly dilated. The interatrial septum is intact with no evidence for an atrial septal defect or patent foramen ovale as noted on 2-D or Doppler imaging. AORTIC VALVE The aortic valve is mildly calcified. The aortic valve is trileaflet. Doppler and Color Flow revealed mild aortic regurgitation. There is no significant aortic valvular stenosis. MITRAL VALVE Mitral annular calcification is moderate. There is no evidence of mitral valve prolapse. There is no mitral valve stenosis. Doppler and Color-flow revealed mild to moderate mitral regurgitation. TRICUSPID VALVE The tricuspid valve is normal in structure and function. Doppler and Color Flow revealed mild tricuspid regurgitation. There is moderate pulmonary hypertension. The PA pressure was estimated at 40 mmHg. There is no tricuspid valve prolapse or vegetation. There is no tricuspid valve stenosis. PULMONIC VALVE The pulmonic valve is not well visualized. GREAT VESSELS The aortic root is normal in size. The ascending aorta is normal in size. The IVC is normal in size and collapses >50% with inspiration. PERICARDIAL EFFUSION There is no evidence of significant pericardial effusion. Critical Notification Critical Value: No <Conclusion> The left ventricle is normal size. The left ventricular systolic function is normal and the ejection fraction is within normal range. The Ejection Fraction is 50-55%. Proximal septal thickening is noted. There is no significant aortic valvular stenosis. Doppler and Color Flow revealed mild aortic regurgitation. Doppler and Color-flow revealed mild to moderate mitral regurgitation. Doppler and Color Flow revealed mild tricuspid regurgitation. There is moderate pulmonary hypertension. The PA pressure was estimated at 40 mmHg.Sleep LIONEL OGLESBY MD Aug 09, 2018 09:13
[2018-08-09] MEDS: BISACODYL 10 MG SUPP.RECT. PR PRN (09:28)
[2018-08-09] MEDS: levETIRAcetam 500 MG in IV DEXTROSE 5% 100ML 100 ML IV SCH ×2 (09:28→21:03)
[2018-08-09] MEDS: DOCUSATE SODIUM 100 MG CAPSULE. PO SCH ×2 (09:28→21:00)
[2018-08-09] MEDS: PANTOPRAZOLE 40 MG TABLET.DR. PO SCH (09:28)
[2018-08-09] MEDS: CITALOPRAM 20 MG TABLET. PO SCH (09:28)
--- NOTE | 2018-08-09 10:26 | NUR ---
Bedside Swallow Evaluation: Currently pt unresponsive and on BiPAP, and unable to participate in swallow evaluation. COKE INSPECTOR to f/u as appropriate when pt able to participate for evaluation. Continue NPO pending swallow evaluation. D/w RN and palliative care.
--- NOTE | 2018-08-09 10:29 | PDOC ---
PULMONARY PROGRESS NOTES Subjective REMAINS NON RESPONSIVE ON BIPAP FOR JOHNNY ANNA BREATHING Vitals Vital Signs Date Time Temp Pulse Resp B/P (MAP) Pulse Ox O2 Delivery O2 Flow Rate FiO2 08/09/18 08:49 100 BiPAP/CPAP 08/09/18 06:00 87 16 100/61 (74) 08/09/18 04:00 97.6 97.6 08/08/18 18:00 21.0 HEENT: Other Lungs: Clear Cardiovascular: S1, S2 Abdomen: Soft Extremities: No Edema Labs Laboratory Tests Test 08/07/18 12:28 08/07/18 16:21 08/07/18 20:50 08/08/18 07:19 Glucose (Fingerstick) 173 mg/dL (70-99) 72 mg/dL (70-99) 161 mg/dL (70-99) 110 mg/dL (70-99) Test 08/08/18 07:40 08/08/18 10:41 08/08/18 11:55 08/08/18 17:23 White Blood Count 8.3 x10^3/uL (4.0-11.0) Red Blood Count 4.00 x10^6/uL (3.50-5.40) Hemoglobin 13.2 g/dL (12.0-15.5) Hematocrit 38.9 % (36.0-47.0) Mean Corpuscular Volume 97 fL (79-100) Mean Corpuscular Hemoglobin 33 pg (25-35) Mean Corpuscular Hemoglobin Concent 34 g/dL (31-37) Red Cell Distribution Width 14.6 % (11.5-14.5) Platelet Count 324 x10^3/uL (140-400) Neutrophils (%) (Auto) 71 % (31-73) Lymphocytes (%) (Auto) 18 % (24-48) Monocytes (%) (Auto) 8 % (0-9) Eosinophils (%) (Auto) 3 % (0-3) Basophils (%) (Auto) 1 % (0-3) Neutrophils # (Auto) 5.9 x10^3uL (1.8-7.7) Lymphocytes # (Auto) 1.5 x10^3/uL (1.0-4.8) Monocytes # (Auto) 0.7 x10^3/uL (0.0-1.1) Eosinophils # (Auto) 0.3 x10^3/uL (0.0-0.7) Basophils # (Auto) 0.1 x10^3/uL (0.0-0.2) Sodium Level 140 mmol/L (136-145) Potassium Level 4.1 mmol/L (3.5-5.1) Chloride Level 101 mmol/L (98-107) Carbon Dioxide Level 30 mmol/L (21-32) Anion Gap 9 (6-14) Blood Urea Nitrogen 52 mg/dL (7-20) Creatinine 1.6 mg/dL (0.6-1.0) Estimated GFR (Cockcroft-Gault) 30.9 Glucose Level 120 mg/dL (70-99) Calcium Level 9.9 mg/dL (8.5-10.1) Magnesium Level 2.6 mg/dL (1.8-2.4) Triglycerides Level 205 mg/dL (0-150) Cholesterol Level 257 mg/dL (0-200) LDL Cholesterol, Calculated 182 mg/dL (0-100) VLDL Cholesterol, Calculated 41 mg/dL (0-40) Non-HDL Cholesterol Calculated 223 mg/dL (0-129) HDL Cholesterol 34 mg/dL (40-60) Cholesterol/HDL Ratio 7.6 Glucose (Fingerstick) 219 mg/dL (70-99) 48 mg/dL (70-99) O2 Saturation 98 % (92-99) Arterial Blood pH 7.54 (7.35-7.45) Arterial Blood pCO2 at Patient Temp 32 mmHg (35-46) Arterial Blood pO2 at Patient Temp 100 mmHg (65-108) Arterial Blood HCO3 27 mmol/L (21-28) Arterial Blood Base Excess 4 mmol/L (-3-3) FiO2 21% Test 08/08/18 17:52 08/08/18 21:37 08/08/18 22:02 08/09/18 04:30 Glucose (Fingerstick) 189 mg/dL (70-99) 68 mg/dL (70-99) 136 mg/dL (70-99) White Blood Count 10.8 x10^3/uL (4.0-11.0) Red Blood Count 3.80 x10^6/uL (3.50-5.40) Hemoglobin 12.4 g/dL (12.0-15.5) Hematocrit 36.8 % (36.0-47.0) Mean Corpuscular Volume 97 fL (79-100) Mean Corpuscular Hemoglobin 33 pg (25-35) Mean Corpuscular Hemoglobin Concent 34 g/dL (31-37) Red Cell Distribution Width 14.8 % (11.5-14.5) Platelet Count 315 x10^3/uL (140-400) Neutrophils (%) (Auto) 76 % (31-73) Lymphocytes (%) (Auto) 13 % (24-48) Monocytes (%) (Auto) 8 % (0-9) Eosinophils (%) (Auto) 2 % (0-3) Basophils (%) (Auto) 0 % (0-3) Neutrophils # (Auto) 8.2 x10^3uL (1.8-7.7) Lymphocytes # (Auto) 1.4 x10^3/uL (1.0-4.8) Monocytes # (Auto) 0.9 x10^3/uL (0.0-1.1) Eosinophils # (Auto) 0.3 x10^3/uL (0.0-0.7) Basophils # (Auto) 0.0 x10^3/uL (0.0-0.2) Sodium Level 141 mmol/L (136-145) Potassium Level 4.2 mmol/L (3.5-5.1) Chloride Level 105 mmol/L (98-107) Carbon Dioxide Level 29 mmol/L (21-32) Anion Gap 7 (6-14) Blood Urea Nitrogen 46 mg/dL (7-20) Creatinine 1.4 mg/dL (0.6-1.0) Estimated GFR (Cockcroft-Gault) 36.0 Glucose Level 81 mg/dL (70-99) Calcium Level 9.7 mg/dL (8.5-10.1) Test 08/09/18 09:33 Glucose (Fingerstick) 87 mg/dL (70-99) Laboratory Tests Test 08/08/18 10:41 08/08/18 11:55 08/08/18 17:23 08/08/18 17:52 Glucose (Fingerstick) 219 mg/dL (70-99) 48 mg/dL (70-99) 189 mg/dL (70-99) O2 Saturation 98 % (92-99) Arterial Blood pH 7.54 (7.35-7.45) Arterial Blood pCO2 at Patient Temp 32 mmHg (35-46) Arterial Blood pO2 at Patient Temp 100 mmHg (65-108) Arterial Blood HCO3 27 mmol/L (21-28) Arterial Blood Base Excess 4 mmol/L (-3-3) FiO2 21% Test 08/08/18 21:37 08/08/18 22:02 08/09/18 04:30 08/09/18 09:33 Glucose (Fingerstick) 68 mg/dL (70-99) 136 mg/dL (70-99) 87 mg/dL (70-99) White Blood Count 10.8 x10^3/uL (4.0-11.0) Red Blood Count 3.80 x10^6/uL (3.50-5.40) Hemoglobin 12.4 g/dL (12.0-15.5) Hematocrit 36.8 % (36.0-47.0) Mean Corpuscular Volume 97 fL (79-100) Mean Corpuscular Hemoglobin 33 pg (25-35) Mean Corpuscular Hemoglobin Concent 34 g/dL (31-37) Red Cell Distribution Width 14.8 % (11.5-14.5) Platelet Count 315 x10^3/uL (140-400) Neutrophils (%) (Auto) 76 % (31-73) Lymphocytes (%) (Auto) 13 % (24-48) Monocytes (%) (Auto) 8 % (0-9) Eosinophils (%) (Auto) 2 % (0-3) Basophils (%) (Auto) 0 % (0-3) Neutrophils # (Auto) 8.2 x10^3uL (1.8-7.7) Lymphocytes # (Auto) 1.4 x10^3/uL (1.0-4.8) Monocytes # (Auto) 0.9 x10^3/uL (0.0-1.1) Eosinophils # (Auto) 0.3 x10^3/uL (0.0-0.7) Basophils # (Auto) 0.0 x10^3/uL (0.0-0.2) Sodium Level 141 mmol/L (136-145) Potassium Level 4.2 mmol/L (3.5-5.1) Chloride Level 105 mmol/L (98-107) Carbon Dioxide Level 29 mmol/L (21-32) Anion Gap 7 (6-14) Blood Urea Nitrogen 46 mg/dL (7-20) Creatinine 1.4 mg/dL (0.6-1.0) Estimated GFR (Cockcroft-Gault) 36.0 Glucose Level 81 mg/dL (70-99) Calcium Level 9.7 mg/dL (8.5-10.1) Medications Active Scripts Medications Dose Route/Sig Max Daily Dose Days Date Category Doxycycline Hyclate 100 Mg Tablet 100 Mg PO BID 08/07/18 Reported Eliquis (Apixaban) 5 Mg Tablet 5 Mg PO BID 08/06/18 Reported Aspercreme 10% Cream (Trolamine Salicylate/Aloe Vera) 35.4 Gm Cream..g. 35.4 Gm TP TID PRN PRN 08/06/18 Reported Isosorbide Mononitrate Er (Isosorbide Mononitrate) 60 Mg Tab.er.24h 60 Mg PO DAILY 08/06/18 Reported Aspercreme (Lidocaine) 1 Each Adh..patch 1 Each TP DAILY 08/06/18 Reported Bumetanide 2 Mg Tablet 4 Mg PO BID 08/06/18 Reported Spironolactone 25 Mg Tablet 25 Mg PO DAILY 02/24/18 Reported Potassium Chloride 10 Meq Tablet.er 10 Meq PO DAILY 02/24/18 Reported Omeprazole 40 Mg Capsule.dr 40 Mg PO DAILY 02/24/18 Reported NITROGLYCERIN SubLingual (Nitroglycerin) 0.4 Mg Tab.subl 0.4 Mg SL PRN Q5MIN PRN 09/19/17 Reported Escitalopram Oxalate 20 Mg Tablet 1 Tab PO DAILY 09/19/17 Reported Diltiazem 24HR Cd (Diltiazem Hcl) 180 Mg Cap.er.24h 1 Cap PO DAILY 09/19/17 Reported Ascorbic Acid 500 Mg Tablet 500 Mg PO 06/29/17 Reported Multivitamins (Multivitamin) 1 Each Tablet 1 Tab PO DAILY 06/29/17 Reported Metolazone 5 Mg Tablet 5 Mg PO DAILY 05/15/17 Reported Novolog Flexpen (Insulin Aspart) 100 Unit/1 Ml Insuln.pen 10 Unit SQ TIDAC 05/15/17 Reported Tresiba Flextouch U-100 (Insulin Degludec) 100 Unit/1 Ml Insuln.pen 34 Unit SQ [id number] 03/12/17 Reported Ferrous Sulfate 325 Mg Tablet 1 Tab PO DAILY 01/04/17 Reported Dulcolax (Bisacodyl) 10 Mg Supp.rect 10 Mg RC PRN DAILY PRN 01/04/17 Reported Aspirin 325 Mg Tablet 1 Tab PO DAILY 12/28/16 Reported Metoprolol Tartrate 25 Mg Tablet 25 Tab PO BID 03/24/16 Reported Acetaminophen 500 Mg Tablet 500 Mg PO PRN Q8HRS PRN 02/16/16 Reported Meclizine Hcl 12.5 Mg Tablet 1 Tab PO BID 01/17/16 Reported Hydrocodone-Apap 5-325 (Hydrocodone Bit/Acetaminophen) 1 Each Tablet 1 Tab PO Q12HR PRN 01/17/16 Reported Stool Softener (Docusate Sodium) 100 Mg Capsule 100 Mg PO BID 05/10/13 Reported Losartan Potassium 100 Mg Tablet 50 Mg PO DAILY 05/10/13 Reported Comments MRI IMPRESSION: 1. Evidence of a new acute infarction in the region of the right thalamus, and possibly posterior right internal capsule and medial left thalamus. 2. Left temporal infarction changes are again seen. There may be a new tiny focus of acute infarction in the anterior left temporal lobe. 3. Otherwise, severe motion degradation limits the usefulness of this exam. Impression . 1. Acute metabolic encephalopathy due to new acute infarction in the region of the right thalamus, and possibly posterior right internal capsule and medial left thalamus. ABGs showed no evidence of any hypercapnia. 2. Acute stroke with extension. 3. Johnny-Anna breathing pattern related to her stroke. Ejection fraction was normal. 3. No significant history of tobacco use. 4. Chest x-ray slightly abnormal on admission with mildly prominent interstitial markings, could be mild neurogenic edema. Plan . 1. From a pulmonary standpoint, I have recommended to continue on BiPAP. 2. Discussed with neurology, Dr. Little / and discussed with entire family today / DNR and DNI. 3. May consider hospice in 24 hr 4. Avoid any narcotics. 6. palliative care consulted ADRIAN LEO MD Aug 09, 2018 10:29
--- NOTE | 2018-08-09 11:52 | PDOC ---
CARDIO Progress Notes Date and Time Date of Service 08/09/2018 Time of Evaluation 1115 Subjective Subjective: Other (moves extremities with stimuli) Vitals Vitals Vital Signs Date Time Temp Pulse Resp B/P (MAP) Pulse Ox O2 Delivery O2 Flow Rate FiO2 08/09/18 08:49 100 BiPAP/CPAP 08/09/18 06:00 87 16 100/61 (74) 08/09/18 04:00 97.6 97.6 08/08/18 18:00 21.0 Weight Weight [ ] Input and Output Intake and Output Intake and Output 08/09/18 07:00 Intake Total 410 ml Output Total 930 ml Balance -520 ml Intake Oral 200 ml IV Total 210 ml Output Urine Total 930 ml Laboratory Labs Laboratory Tests Test 08/08/18 11:55 08/08/18 17:23 08/08/18 17:52 08/08/18 21:37 O2 Saturation 98 % (92-99) Arterial Blood pH 7.54 (7.35-7.45) Arterial Blood pCO2 at Patient Temp 32 mmHg (35-46) Arterial Blood pO2 at Patient Temp 100 mmHg (65-108) Arterial Blood HCO3 27 mmol/L (21-28) Arterial Blood Base Excess 4 mmol/L (-3-3) FiO2 21% Glucose (Fingerstick) 48 mg/dL (70-99) 189 mg/dL (70-99) 68 mg/dL (70-99) Test 08/08/18 22:02 08/09/18 04:30 08/09/18 09:33 Glucose (Fingerstick) 136 mg/dL (70-99) 87 mg/dL (70-99) White Blood Count 10.8 x10^3/uL (4.0-11.0) Red Blood Count 3.80 x10^6/uL (3.50-5.40) Hemoglobin 12.4 g/dL (12.0-15.5) Hematocrit 36.8 % (36.0-47.0) Mean Corpuscular Volume 97 fL (79-100) Mean Corpuscular Hemoglobin 33 pg (25-35) Mean Corpuscular Hemoglobin Concent 34 g/dL (31-37) Red Cell Distribution Width 14.8 % (11.5-14.5) Platelet Count 315 x10^3/uL (140-400) Neutrophils (%) (Auto) 76 % (31-73) Lymphocytes (%) (Auto) 13 % (24-48) Monocytes (%) (Auto) 8 % (0-9) Eosinophils (%) (Auto) 2 % (0-3) Basophils (%) (Auto) 0 % (0-3) Neutrophils # (Auto) 8.2 x10^3uL (1.8-7.7) Lymphocytes # (Auto) 1.4 x10^3/uL (1.0-4.8) Monocytes # (Auto) 0.9 x10^3/uL (0.0-1.1) Eosinophils # (Auto) 0.3 x10^3/uL (0.0-0.7) Basophils # (Auto) 0.0 x10^3/uL (0.0-0.2) Sodium Level 141 mmol/L (136-145) Potassium Level 4.2 mmol/L (3.5-5.1) Chloride Level 105 mmol/L (98-107) Carbon Dioxide Level 29 mmol/L (21-32) Anion Gap 7 (6-14) Blood Urea Nitrogen 46 mg/dL (7-20) Creatinine 1.4 mg/dL (0.6-1.0) Estimated GFR (Cockcroft-Gault) 36.0 Glucose Level 81 mg/dL (70-99) Calcium Level 9.7 mg/dL (8.5-10.1) Microbiology Micro Microbiology 08/06/18 Blood Culture - Preliminary, Resulted NO GROWTH AFTER 2 DAYS Physical Exam HEENT: Neck Supple W Full Motion Chest: Symmetric LUNGS: Other (diminished bases, NPPV in place) Heart: murmurs (3/6 systolic murmur to LLS border), irregularly irregular ( AFIB no significant ectopies) Abdomen: Other (soft) Extremities: No Calf Tenderness, Other (trace LE edema with venous dermatitis) Neurology: other (stupor) Assessment Assessment 1. Acute CVA with right thalamic extension: currently stupor, responds to pain stimuli 2. Acute respiratory failure: due to CVA noted with Johnny-slade resp. currently on NPPV. Pulmonary following 3. Elevated troponin: Type 2 with CVA contributing and renal insufficiency. Peaked at 0.38, no cardiac symptoms before changed in mental status 4. Recent mechanical Fall: no significant traumatic injury 5. Recent coumadin induced coagulopathy: Warfarin was taken off and off for about 5 days per daughter and was transitioned to eliquis. INR nml currently 6. Chronic AFIB: rate controlled 7. CAD: past stents 8. HTN; controlled 9. HLP: not on goal. 10. CKD3 11. Barrets esophagus? Recommendations 1. Continue with IV lopressor for rate control. DC losartan and cardizem and avoid marginal BP to prevent cerebral hypoperfusion. 2. Dig IV PRN for any sustained RVR. 3. No diuretics for now and will place on PRN dosing. Start on lipitor once PO allowed. 4. On low dose lovenox, start on further anticoagulation pending neuro status and timeline per neurology given her new CVA. 5. Supportive care. JEFF BUBSY APRN Aug 09, 2018 11:52
[2018-08-09] MEDS ORDERED: DIGOXIN IV 500 MCG/2 ML AMPUL. IV PRN (12:00)
--- NOTE | 2018-08-09 12:52 | PDOC2 ---
PALLIATIVE CARE Palliative Care Note Palliative Care Consult requested by Dr. Parra to assist with plan of care. Medical Assessment per medical record/Dr. Little Left temporal stroke with aphasia, receptive and expressive components. New acute infarction in the region of the right thalamus, and possibly posterior right internal capsule and medial left thalamus, possible new tiny focus of acute infarction in the anterior left temporal lobe. Right P2 intracranial stenosis Patient responds to painful stimuli. On BiPap--Johnny Silva breathing before BiPap Copy of AD and POA documents placed on Medical record. Acknowledged as most recent document by daughter/CPOA Maite Medical condition was reviewed with family by physicians and again in the meeting with daughter. Patient has 4 daughters and one son; DAVE Snell (currently in [place] on vacation --she is aware of her mother's illness) Maite GRIGGS, and Jessie GRIGGS. Daughter Kizzy ([place]); Denny son. Reviewed their mothers AD. They would like to give their mother opportunity to see if she would improve and if she does not make improvement they will focus on comfort. Discussed options where comfort care could take place. (Patient was living at [facility] and likely could not return. Other options discussed depending on need for symptom management. Patient is Jew. Member of [employer]. Very involved in several of the ministries/activities. Message left with [employer] Worke[employer] Bennett to contact [facility] for [facility] S[facility] Patient enjoyed family functions, cooking. Worked in [employer] since 2010. Confirmed DNR/DNI. Outside the Hospital DNR/DNI form signed. Plan: Continue to monitor for 24-48 hours. DNR/DNI AD placed on medical record. Meet again on Sunday as needed OSIEL FERRO Aug 09, 2018 12:52
[2018-08-09] MEDS: ENOXAPARIN 40 MG/0.4 ML SYRINGE. SQ SCH (18:37)
[2018-08-09] MEDS: ATORVASTATIN CALCIUM 40 MG TABLET. PO SCH (21:00)
[2018-08-09] MEDS: MIRTAZAPINE 7.5 MG TABLET. PO SCH (21:00)
[2018-08-10] VITALS (24 sets, daily range): BP systolic 113–150; BP diastolic 54–78
[2018-08-10] MEDS: METOPROLOL TARTRATE 5 MG/5 ML VIAL. IVP SCH ×4 (00:12→18:00)
[2018-08-10 04:00] LABS: BASO % 0 % (0-3); EOS # 0.1 x10^3/uL (0.0-0.7); EOS % 0 % (0-3); HEMATOCRIT 38.4 % (36.0-47.0); HEMOGLOBIN 12.7 g/dL (12.0-15.5); LYMPH # 1.1 x10^3/uL (1.0-4.8); LYMPH % 8 % (24-48); MEAN CORPUSCULAR HEMOGLOBIN 32 pg (25-35); MEAN CORPUSCULAR HGB CONC 33 g/dL (31-37); MEAN CORPUSCULAR VOLUME 97 fL (79-100); MONO # 0.9 x10^3/uL (0.0-1.1); MONO % 7 % (0-9); NEUT # 11.2 x10^3uL (1.8-7.7); NEUT % 84 % (31-73); PLATELET COUNT 310 x10^3/uL (140-400); RED BLOOD COUNT 3.95 x10^6/uL (3.50-5.40); RED CELL DISTRIBUTION WIDTH 14.7 % (11.5-14.5); WHITE BLOOD COUNT 13.3 x10^3/uL (4.0-11.0)
[2018-08-10 04:17] LABS: CALCIUM 9.5 mg/dL (8.5-10.1); CREATININE 1.8 mg/dL (0.6-1.0); GFR 26.9; POTASSIUM 4.7 mmol/L (3.5-5.1)
--- NOTE | 2018-08-10 06:24 | PDOC ---
PULMONARY PROGRESS NOTES Subjective no response, off bipap Vitals Vital Signs Date Time Temp Pulse Resp B/P (MAP) Pulse Ox O2 Delivery O2 Flow Rate FiO2 08/10/18 06:00 85 22 150/61 (90) 99 Room Air 08/10/18 04:00 99.1 99.1 08/10/18 00:01 21.0 HEENT: Other (nc at perrl ) Lungs: Crackles Cardiovascular: S1, S2 Abdomen: Soft, Non-tender Extremities: No Edema Skin: Warm Labs Laboratory Tests Test 08/08/18 07:19 08/08/18 07:40 08/08/18 10:41 08/08/18 11:50 Glucose (Fingerstick) 110 mg/dL (70-99) 219 mg/dL (70-99) White Blood Count 8.3 x10^3/uL (4.0-11.0) Red Blood Count 4.00 x10^6/uL (3.50-5.40) Hemoglobin 13.2 g/dL (12.0-15.5) Hematocrit 38.9 % (36.0-47.0) Mean Corpuscular Volume 97 fL (79-100) Mean Corpuscular Hemoglobin 33 pg (25-35) Mean Corpuscular Hemoglobin Concent 34 g/dL (31-37) Red Cell Distribution Width 14.6 % (11.5-14.5) Platelet Count 324 x10^3/uL (140-400) Neutrophils (%) (Auto) 71 % (31-73) Lymphocytes (%) (Auto) 18 % (24-48) Monocytes (%) (Auto) 8 % (0-9) Eosinophils (%) (Auto) 3 % (0-3) Basophils (%) (Auto) 1 % (0-3) Neutrophils # (Auto) 5.9 x10^3uL (1.8-7.7) Lymphocytes # (Auto) 1.5 x10^3/uL (1.0-4.8) Monocytes # (Auto) 0.7 x10^3/uL (0.0-1.1) Eosinophils # (Auto) 0.3 x10^3/uL (0.0-0.7) Basophils # (Auto) 0.1 x10^3/uL (0.0-0.2) Sodium Level 140 mmol/L (136-145) Potassium Level 4.1 mmol/L (3.5-5.1) Chloride Level 101 mmol/L (98-107) Carbon Dioxide Level 30 mmol/L (21-32) Anion Gap 9 (6-14) Blood Urea Nitrogen 52 mg/dL (7-20) Creatinine 1.6 mg/dL (0.6-1.0) Estimated GFR (Cockcroft-Gault) 30.9 Glucose Level 120 mg/dL (70-99) Calcium Level 9.9 mg/dL (8.5-10.1) Magnesium Level 2.6 mg/dL (1.8-2.4) Triglycerides Level 205 mg/dL (0-150) Cholesterol Level 257 mg/dL (0-200) LDL Cholesterol, Calculated 182 mg/dL (0-100) VLDL Cholesterol, Calculated 41 mg/dL (0-40) Non-HDL Cholesterol Calculated 223 mg/dL (0-129) HDL Cholesterol 34 mg/dL (40-60) Cholesterol/HDL Ratio 7.6 Nasal Screen MRSA (PCR) Negative (Negative) Test 08/08/18 11:55 08/08/18 17:23 08/08/18 17:52 08/08/18 21:37 O2 Saturation 98 % (92-99) Arterial Blood pH 7.54 (7.35-7.45) Arterial Blood pCO2 at Patient Temp 32 mmHg (35-46) Arterial Blood pO2 at Patient Temp 100 mmHg (65-108) Arterial Blood HCO3 27 mmol/L (21-28) Arterial Blood Base Excess 4 mmol/L (-3-3) FiO2 21% Glucose (Fingerstick) 48 mg/dL (70-99) 189 mg/dL (70-99) 68 mg/dL (70-99) Test 08/08/18 22:02 08/09/18 04:30 08/09/18 09:33 08/09/18 14:17 Glucose (Fingerstick) 136 mg/dL (70-99) 87 mg/dL (70-99) 122 mg/dL (70-99) White Blood Count 10.8 x10^3/uL (4.0-11.0) Red Blood Count 3.80 x10^6/uL (3.50-5.40) Hemoglobin 12.4 g/dL (12.0-15.5) Hematocrit 36.8 % (36.0-47.0) Mean Corpuscular Volume 97 fL (79-100) Mean Corpuscular Hemoglobin 33 pg (25-35) Mean Corpuscular Hemoglobin Concent 34 g/dL (31-37) Red Cell Distribution Width 14.8 % (11.5-14.5) Platelet Count 315 x10^3/uL (140-400) Neutrophils (%) (Auto) 76 % (31-73) Lymphocytes (%) (Auto) 13 % (24-48) Monocytes (%) (Auto) 8 % (0-9) Eosinophils (%) (Auto) 2 % (0-3) Basophils (%) (Auto) 0 % (0-3) Neutrophils # (Auto) 8.2 x10^3uL (1.8-7.7) Lymphocytes # (Auto) 1.4 x10^3/uL (1.0-4.8) Monocytes # (Auto) 0.9 x10^3/uL (0.0-1.1) Eosinophils # (Auto) 0.3 x10^3/uL (0.0-0.7) Basophils # (Auto) 0.0 x10^3/uL (0.0-0.2) Sodium Level 141 mmol/L (136-145) Potassium Level 4.2 mmol/L (3.5-5.1) Chloride Level 105 mmol/L (98-107) Carbon Dioxide Level 29 mmol/L (21-32) Anion Gap 7 (6-14) Blood Urea Nitrogen 46 mg/dL (7-20) Creatinine 1.4 mg/dL (0.6-1.0) Estimated GFR (Cockcroft-Gault) 36.0 Glucose Level 81 mg/dL (70-99) Calcium Level 9.7 mg/dL (8.5-10.1) Test 08/10/18 00:08 08/10/18 03:33 Glucose (Fingerstick) 202 mg/dL (70-99) White Blood Count 13.3 x10^3/uL (4.0-11.0) Red Blood Count 3.95 x10^6/uL (3.50-5.40) Hemoglobin 12.7 g/dL (12.0-15.5) Hematocrit 38.4 % (36.0-47.0) Mean Corpuscular Volume 97 fL (79-100) Mean Corpuscular Hemoglobin 32 pg (25-35) Mean Corpuscular Hemoglobin Concent 33 g/dL (31-37) Red Cell Distribution Width 14.7 % (11.5-14.5) Platelet Count 310 x10^3/uL (140-400) Neutrophils (%) (Auto) 84 % (31-73) Lymphocytes (%) (Auto) 8 % (24-48) Monocytes (%) (Auto) 7 % (0-9) Eosinophils (%) (Auto) 0 % (0-3) Basophils (%) (Auto) 0 % (0-3) Neutrophils # (Auto) 11.2 x10^3uL (1.8-7.7) Lymphocytes # (Auto) 1.1 x10^3/uL (1.0-4.8) Monocytes # (Auto) 0.9 x10^3/uL (0.0-1.1) Eosinophils # (Auto) 0.1 x10^3/uL (0.0-0.7) Basophils # (Auto) 0.0 x10^3/uL (0.0-0.2) Sodium Level 140 mmol/L (136-145) Potassium Level 4.7 mmol/L (3.5-5.1) Chloride Level 104 mmol/L (98-107) Carbon Dioxide Level 27 mmol/L (21-32) Anion Gap 9 (6-14) Blood Urea Nitrogen 47 mg/dL (7-20) Creatinine 1.8 mg/dL (0.6-1.0) Estimated GFR (Cockcroft-Gault) 26.9 Glucose Level 282 mg/dL (70-99) Calcium Level 9.5 mg/dL (8.5-10.1) Laboratory Tests Test 08/09/18 09:33 08/09/18 14:17 08/10/18 00:08 08/10/18 03:33 Glucose (Fingerstick) 87 mg/dL (70-99) 122 mg/dL (70-99) 202 mg/dL (70-99) White Blood Count 13.3 x10^3/uL (4.0-11.0) Red Blood Count 3.95 x10^6/uL (3.50-5.40) Hemoglobin 12.7 g/dL (12.0-15.5) Hematocrit 38.4 % (36.0-47.0) Mean Corpuscular Volume 97 fL (79-100) Mean Corpuscular Hemoglobin 32 pg (25-35) Mean Corpuscular Hemoglobin Concent 33 g/dL (31-37) Red Cell Distribution Width 14.7 % (11.5-14.5) Platelet Count 310 x10^3/uL (140-400) Neutrophils (%) (Auto) 84 % (31-73) Lymphocytes (%) (Auto) 8 % (24-48) Monocytes (%) (Auto) 7 % (0-9) Eosinophils (%) (Auto) 0 % (0-3) Basophils (%) (Auto) 0 % (0-3) Neutrophils # (Auto) 11.2 x10^3uL (1.8-7.7) Lymphocytes # (Auto) 1.1 x10^3/uL (1.0-4.8) Monocytes # (Auto) 0.9 x10^3/uL (0.0-1.1) Eosinophils # (Auto) 0.1 x10^3/uL (0.0-0.7) Basophils # (Auto) 0.0 x10^3/uL (0.0-0.2) Sodium Level 140 mmol/L (136-145) Potassium Level 4.7 mmol/L (3.5-5.1) Chloride Level 104 mmol/L (98-107) Carbon Dioxide Level 27 mmol/L (21-32) Anion Gap 9 (6-14) Blood Urea Nitrogen 47 mg/dL (7-20) Creatinine 1.8 mg/dL (0.6-1.0) Estimated GFR (Cockcroft-Gault) 26.9 Glucose Level 282 mg/dL (70-99) Calcium Level 9.5 mg/dL (8.5-10.1) Medications Active Scripts Medications Dose Route/Sig Max Daily Dose Days Date Category Doxycycline Hyclate 100 Mg Tablet 100 Mg PO BID 08/07/18 Reported Eliquis (Apixaban) 5 Mg Tablet 5 Mg PO BID 08/06/18 Reported Aspercreme 10% Cream (Trolamine Salicylate/Aloe Vera) 35.4 Gm Cream..g. 35.4 Gm TP TID PRN PRN 08/06/18 Reported Isosorbide Mononitrate Er (Isosorbide Mononitrate) 60 Mg Tab.er.24h 60 Mg PO DAILY 08/06/18 Reported Aspercreme (Lidocaine) 1 Each Adh..patch 1 Each TP DAILY 08/06/18 Reported Bumetanide 2 Mg Tablet 4 Mg PO BID 08/06/18 Reported Spironolactone 25 Mg Tablet 25 Mg PO DAILY 02/24/18 Reported Potassium Chloride 10 Meq Tablet.er 10 Meq PO DAILY 02/24/18 Reported Omeprazole 40 Mg Capsule.dr 40 Mg PO DAILY 02/24/18 Reported NITROGLYCERIN SubLingual (Nitroglycerin) 0.4 Mg Tab.subl 0.4 Mg SL PRN Q5MIN PRN 09/19/17 Reported Escitalopram Oxalate 20 Mg Tablet 1 Tab PO DAILY 09/19/17 Reported Diltiazem 24HR Cd (Diltiazem Hcl) 180 Mg Cap.er.24h 1 Cap PO DAILY 09/19/17 Reported Ascorbic Acid 500 Mg Tablet 500 Mg PO 06/29/17 Reported Multivitamins (Multivitamin) 1 Each Tablet 1 Tab PO DAILY 06/29/17 Reported Metolazone 5 Mg Tablet 5 Mg PO DAILY 05/15/17 Reported Novolog Flexpen (Insulin Aspart) 100 Unit/1 Ml Insuln.pen 10 Unit SQ TIDAC 05/15/17 Reported Tresiba Flextouch U-100 (Insulin Degludec) 100 Unit/1 Ml Insuln.pen 34 Unit SQ [id number] 03/12/17 Reported Ferrous Sulfate 325 Mg Tablet 1 Tab PO DAILY 01/04/17 Reported Dulcolax (Bisacodyl) 10 Mg Supp.rect 10 Mg RC PRN DAILY PRN 01/04/17 Reported Aspirin 325 Mg Tablet 1 Tab PO DAILY 12/28/16 Reported Metoprolol Tartrate 25 Mg Tablet 25 Tab PO BID 03/24/16 Reported Acetaminophen 500 Mg Tablet 500 Mg PO PRN Q8HRS PRN 02/16/16 Reported Meclizine Hcl 12.5 Mg Tablet 1 Tab PO BID 01/17/16 Reported Hydrocodone-Apap 5-325 (Hydrocodone Bit/Acetaminophen) 1 Each Tablet 1 Tab PO Q12HR PRN 01/17/16 Reported Stool Softener (Docusate Sodium) 100 Mg Capsule 100 Mg PO BID 05/10/13 Reported Losartan Potassium 100 Mg Tablet 50 Mg PO DAILY 05/10/13 Reported Comments MRI IMPRESSION: 1. Evidence of a new acute infarction in the region of the right thalamus, and possibly posterior right internal capsule and medial left thalamus. 2. Left temporal infarction changes are again seen. There may be a new tiny focus of acute infarction in the anterior left temporal lobe. 3. Otherwise, severe motion degradation limits the usefulness of this exam. Impression . 1. Acute metabolic encephalopathy due to new acute infarction in the region of the right thalamus, and possibly posterior right internal capsule and medial left thalamus. ABGs showed no evidence of any hypercapnia. 2. Acute stroke with extension. 3. Johnny-Silva breathing pattern related to her stroke. Ejection fraction was normal. 3. No significant history of tobacco use. 4. Chest x-ray slightly abnormal on admission with mildly prominent interstitial markings, could be mild neurogenic edema. Plan . 1. BiPAP prn during day, cont at night, setting reviewed. 2. DNR and DNI. 3. May consider hospice 4. Avoid any narcotics. 6. palliative care consulted, poor prognosis discussed w YOAV Kumar MD Aug 10, 2018 06:24
[2018-08-10] MEDS: PANTOPRAZOLE 40 MG TABLET.DR. PO SCH (07:30)
[2018-08-10] MEDS: MECLIZINE HCL 12.5 MG TABLET. PO SCH ×2 (08:36→20:50)
[2018-08-10] MEDS: CITALOPRAM 20 MG TABLET. PO SCH (08:36)
[2018-08-10] MEDS: CALCIUM CARB/VIT D3 500/200 TABLET. PO SCH (08:37)
[2018-08-10] MEDS: POLYETHYLENE GLYCOL 3350 17 GM PACKET. PO SCH (08:37)
[2018-08-10] MEDS: FERROUS SULFATE 325 MG TABLET. PO SCH (08:37)
[2018-08-10] MEDS: MULTIVITAMIN with MINERAL TABLET. PO SCH (08:37)
[2018-08-10] MEDS: DOCUSATE SODIUM 100 MG CAPSULE. PO SCH ×2 (08:37→20:50)
[2018-08-10] MEDS: POTASSIUM CHLORIDE 10 MEQ TABLET.ER. PO SCH (08:37)
[2018-08-10] MEDS: FAMOTIDINE 20 MG TABLET. PO SCH (08:37)
[2018-08-10] MEDS: ASCORBIC ACID 500 MG TABLET PO SCH (08:38)
[2018-08-10] MEDS: levETIRAcetam 500 MG in IV DEXTROSE 5% 100ML 100 ML IV SCH ×2 (08:43→20:50)
[2018-08-10] MEDS: INSULIN LISPRO 300 UNITS/3 ML INSULN.PEN. SQ SCH ×3 (08:45→17:05)
[2018-08-10] MEDS: INSULIN GLARGINE 300 UNITS/3 ML INSULN.PEN. SQ SCH (08:47)
--- NOTE | 2018-08-10 11:00 | PDOC ---
PROGRESS NOTES Chief Complaint Chief Complaint Acute CVA w/ dysarthria/confusion New rigth sided CVA with thalamus involvement. MRI showed Evidence of a new acute infarction in the region of the right thalamus, and possibly posterior right internal capsule and medial left thalamus. Left temporal infarction changes are again seen. There may be a new tiny focus of acute infarction in the anterior left temporal lobe. Elevated troponin 0.385low concern for cardiac etiology suspect CVA and renal insufficiency contributing Recent mechanical Fall: no significant traumatic injury Recent coumadin induced coagulopathy, transitioned to eliquis Cervical/lumbar stenosis with chronic L RTC tear Chronic A FIB CAD: past stents HTN HLP CKD3 Plan: will observe for the next 24 hours, Palliative care consult supportive measures further recommendations based on clinical course. History of Present Illness History of Present Illness Patient not responding to verbal stimuli patient not following commands patient protecting her airway and not requiring more invasive ventilation. Lung conversation regarding prognosis and expectations to place with patient's daughter at bedside. 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 ) Skin: No breakdown, No significant lesion, Other ([place] indurated b/l lower extremities ) Labs LABS Laboratory Tests Test 08/09/18 14:17 08/10/18 00:08 08/10/18 03:33 08/10/18 08:42 Glucose (Fingerstick) 122 mg/dL (70-99) 202 mg/dL (70-99) 304 mg/dL (70-99) White Blood Count 13.3 x10^3/uL (4.0-11.0) Red Blood Count 3.95 x10^6/uL (3.50-5.40) Hemoglobin 12.7 g/dL (12.0-15.5) Hematocrit 38.4 % (36.0-47.0) Mean Corpuscular Volume 97 fL (79-100) Mean Corpuscular Hemoglobin 32 pg (25-35) Mean Corpuscular Hemoglobin Concent 33 g/dL (31-37) Red Cell Distribution Width 14.7 % (11.5-14.5) Platelet Count 310 x10^3/uL (140-400) Neutrophils (%) (Auto) 84 % (31-73) Lymphocytes (%) (Auto) 8 % (24-48) Monocytes (%) (Auto) 7 % (0-9) Eosinophils (%) (Auto) 0 % (0-3) Basophils (%) (Auto) 0 % (0-3) Neutrophils # (Auto) 11.2 x10^3uL (1.8-7.7) Lymphocytes # (Auto) 1.1 x10^3/uL (1.0-4.8) Monocytes # (Auto) 0.9 x10^3/uL (0.0-1.1) Eosinophils # (Auto) 0.1 x10^3/uL (0.0-0.7) Basophils # (Auto) 0.0 x10^3/uL (0.0-0.2) Sodium Level 140 mmol/L (136-145) Potassium Level 4.7 mmol/L (3.5-5.1) Chloride Level 104 mmol/L (98-107) Carbon Dioxide Level 27 mmol/L (21-32) Anion Gap 9 (6-14) Blood Urea Nitrogen 47 mg/dL (7-20) Creatinine 1.8 mg/dL (0.6-1.0) Estimated GFR (Cockcroft-Gault) 26.9 Glucose Level 282 mg/dL (70-99) Calcium Level 9.5 mg/dL (8.5-10.1) Assessment and Plan Assessmemt and Plan Problems Medical Problems: (1) Change in mental status Status: Acute Comment Review of Relevant I have reviewed the following items alejandra (where applicable) has been applied. Labs Laboratory Tests Test 08/08/18 11:50 08/08/18 11:55 08/08/18 17:23 08/08/18 17:52 Nasal Screen MRSA (PCR) Negative (Negative) O2 Saturation 98 % (92-99) Arterial Blood pH 7.54 (7.35-7.45) Arterial Blood pCO2 at Patient Temp 32 mmHg (35-46) Arterial Blood pO2 at Patient Temp 100 mmHg (65-108) Arterial Blood HCO3 27 mmol/L (21-28) Arterial Blood Base Excess 4 mmol/L (-3-3) FiO2 21% Glucose (Fingerstick) 48 mg/dL (70-99) 189 mg/dL (70-99) Test 08/08/18 21:37 08/08/18 22:02 08/09/18 04:30 08/09/18 09:33 Glucose (Fingerstick) 68 mg/dL (70-99) 136 mg/dL (70-99) 87 mg/dL (70-99) White Blood Count 10.8 x10^3/uL (4.0-11.0) Red Blood Count 3.80 x10^6/uL (3.50-5.40) Hemoglobin 12.4 g/dL (12.0-15.5) Hematocrit 36.8 % (36.0-47.0) Mean Corpuscular Volume 97 fL (79-100) Mean Corpuscular Hemoglobin 33 pg (25-35) Mean Corpuscular Hemoglobin Concent 34 g/dL (31-37) Red Cell Distribution Width 14.8 % (11.5-14.5) Platelet Count 315 x10^3/uL (140-400) Neutrophils (%) (Auto) 76 % (31-73) Lymphocytes (%) (Auto) 13 % (24-48) Monocytes (%) (Auto) 8 % (0-9) Eosinophils (%) (Auto) 2 % (0-3) Basophils (%) (Auto) 0 % (0-3) Neutrophils # (Auto) 8.2 x10^3uL (1.8-7.7) Lymphocytes # (Auto) 1.4 x10^3/uL (1.0-4.8) Monocytes # (Auto) 0.9 x10^3/uL (0.0-1.1) Eosinophils # (Auto) 0.3 x10^3/uL (0.0-0.7) Basophils # (Auto) 0.0 x10^3/uL (0.0-0.2) Sodium Level 141 mmol/L (136-145) Potassium Level 4.2 mmol/L (3.5-5.1) Chloride Level 105 mmol/L (98-107) Carbon Dioxide Level 29 mmol/L (21-32) Anion Gap 7 (6-14) Blood Urea Nitrogen 46 mg/dL (7-20) Creatinine 1.4 mg/dL (0.6-1.0) Estimated GFR (Cockcroft-Gault) 36.0 Glucose Level 81 mg/dL (70-99) Calcium Level 9.7 mg/dL (8.5-10.1) Test 08/09/18 14:17 08/10/18 00:08 08/10/18 03:33 08/10/18 08:42 Glucose (Fingerstick) 122 mg/dL (70-99) 202 mg/dL (70-99) 304 mg/dL (70-99) White Blood Count 13.3 x10^3/uL (4.0-11.0) Red Blood Count 3.95 x10^6/uL (3.50-5.40) Hemoglobin 12.7 g/dL (12.0-15.5) Hematocrit 38.4 % (36.0-47.0) Mean Corpuscular Volume 97 fL (79-100) Mean Corpuscular Hemoglobin 32 pg (25-35) Mean Corpuscular Hemoglobin Concent 33 g/dL (31-37) Red Cell Distribution Width 14.7 % (11.5-14.5) Platelet Count 310 x10^3/uL (140-400) Neutrophils (%) (Auto) 84 % (31-73) Lymphocytes (%) (Auto) 8 % (24-48) Monocytes (%) (Auto) 7 % (0-9) Eosinophils (%) (Auto) 0 % (0-3) Basophils (%) (Auto) 0 % (0-3) Neutrophils # (Auto) 11.2 x10^3uL (1.8-7.7) Lymphocytes # (Auto) 1.1 x10^3/uL (1.0-4.8) Monocytes # (Auto) 0.9 x10^3/uL (0.0-1.1) Eosinophils # (Auto) 0.1 x10^3/uL (0.0-0.7) Basophils # (Auto) 0.0 x10^3/uL (0.0-0.2) Sodium Level 140 mmol/L (136-145) Potassium Level 4.7 mmol/L (3.5-5.1) Chloride Level 104 mmol/L (98-107) Carbon Dioxide Level 27 mmol/L (21-32) Anion Gap 9 (6-14) Blood Urea Nitrogen 47 mg/dL (7-20) Creatinine 1.8 mg/dL (0.6-1.0) Estimated GFR (Cockcroft-Gault) 26.9 Glucose Level 282 mg/dL (70-99) Calcium Level 9.5 mg/dL (8.5-10.1) Laboratory Tests Test 08/09/18 14:17 08/10/18 00:08 08/10/18 03:33 08/10/18 08:42 Glucose (Fingerstick) 122 mg/dL (70-99) 202 mg/dL (70-99) 304 mg/dL (70-99) White Blood Count 13.3 x10^3/uL (4.0-11.0) Red Blood Count 3.95 x10^6/uL (3.50-5.40) Hemoglobin 12.7 g/dL (12.0-15.5) Hematocrit 38.4 % (36.0-47.0) Mean Corpuscular Volume 97 fL (79-100) Mean Corpuscular Hemoglobin 32 pg (25-35) Mean Corpuscular Hemoglobin Concent 33 g/dL (31-37) Red Cell Distribution Width 14.7 % (11.5-14.5) Platelet Count 310 x10^3/uL (140-400) Neutrophils (%) (Auto) 84 % (31-73) Lymphocytes (%) (Auto) 8 % (24-48) Monocytes (%) (Auto) 7 % (0-9) Eosinophils (%) (Auto) 0 % (0-3) Basophils (%) (Auto) 0 % (0-3) Neutrophils # (Auto) 11.2 x10^3uL (1.8-7.7) Lymphocytes # (Auto) 1.1 x10^3/uL (1.0-4.8) Monocytes # (Auto) 0.9 x10^3/uL (0.0-1.1) Eosinophils # (Auto) 0.1 x10^3/uL (0.0-0.7) Basophils # (Auto) 0.0 x10^3/uL (0.0-0.2) Sodium Level 140 mmol/L (136-145) Potassium Level 4.7 mmol/L (3.5-5.1) Chloride Level 104 mmol/L (98-107) Carbon Dioxide Level 27 mmol/L (21-32) Anion Gap 9 (6-14) Blood Urea Nitrogen 47 mg/dL (7-20) Creatinine 1.8 mg/dL (0.6-1.0) Estimated GFR (Cockcroft-Gault) 26.9 Glucose Level 282 mg/dL (70-99) Calcium Level 9.5 mg/dL (8.5-10.1) Microbiology 08/06/18 Blood Culture - Preliminary, Resulted NO GROWTH AFTER 3 DAYS Medications Current Medications Sodium Chloride 500 ml @ 500 mls/hr 1X ONCE IV Last administered on 08/06/18at 16:21; Start 08/06/18 at 16:00; Stop 08/06/18 at 16:59; Status DC Ondansetron HCl (Zofran) 4 mg PRN Q6HRS PRN IV NAUSEA/VOMITING; Start 08/06/18 at 18:15 Morphine Sulfate (Morphine Sulfate) 1 mg PRN Q1HR PRN IV PAIN; Start 08/06/18 at 18:15 Lactulose (Lactulose) 20 gm PRN Q12HR PRN PO CONSTIPATION, 2ND CHOICE; Start at 18:15 Heparin Sodium (Porcine) (Heparin Sodium) 5,000 unit Q12HR SQ ; Start 08/06/18 at 21:00; Stop 08/06/18 at 21:00; Status DC Ascorbic Acid (Vitamin C) 500 mg DAILY PO Last administered on 08/08/18 08:57; Start 08/07/18 at 09:00 Aspirin (Derek Aspirin) 325 mg DAILY PO Last administered on 08/08/18 08:56; Start 08/07/18 at 09:00; Stop 08/08/18 at 15:05; Status DC Calcium/Vitamin D (Oscal D 500mg/ 200uts) 1 tab DAILY PO Last administered on 08:57; Start 08/07/18 at 09:00 Docusate Sodium (Colace) 100 mg BID PO Last administered on 08/09/18 09:28; Start 08/06/18 at 21:00 Ferrous Sulfate (Feosol) 325 mg DAILY PO Last administered on 08/08/18 08:56; Start 08/07/18 at 09:00 Acetaminophen/ Hydrocodone Bitart (Lortab 5/325) 1 tab PRN Q12HRS PRN PO MODERATE PAIN Last administered on 08/08/18 02:32; Start 08/06/18 at 18:15 Metoprolol Tartrate (Lopressor) 25 mg BID PO Last administered on 08/08/18 08: 57; Start 08/06/18 at 21:00; Stop 08/09/18 at 19:16; Status DC Nitroglycerin (Nitrostat) 0.4 mg PRN Q5MIN PRN SL CHEST PAIN; Start 08/06/18 at 18:15 Oxycodone/ Acetaminophen (Percocet 5/325) 1 tab PRN Q6HRS PRN PO SEVERE PAIN Last administered on 08/07/18 21:12; Start 08/06/18 at 18:15 Potassium Chloride (Klor-Con) 10 meq DAILY PO Last administered on 08/08/18 08: 56; Start 08/07/18 at 09:00 Acetaminophen (Tylenol) 500 mg PRN Q8HRS PRN PO MILD PAIN / TEMP Last administered on 08/07/18 14:07; Start 08/06/18 at 19:00; Stop 08/08/18 at 14:52; Status DC Bisacodyl (Dulcolax Supp) 10 mg PRN DAILY PRN [place] CONSTIPATION Last administered on 08/09/18 09:28; Start 08/06/18 at 19:00 Diltiazem HCl (Cardizem 24hr Cd) 180 mg DAILY PO Last administered on 08/08/18 08:56; Start 08/07/18 at 09:00; Stop 08/09/18 at 11:49; Status DC Citalopram Hydrobromide (CeleXA) 40 mg DAILY PO Last administered on 08/09/18 09:28; Start 08/07/18 at 09:00 Insulin Human Lispro (HumaLOG) 10 units TIDWMEALS SQ Last administered on 08:45; Start 08/06/18 at 19:30 Insulin Glargine (Lantus) 34 units DAILYWBKFT SQ Last administered on 08/10/18 08:47; Start 08/07/18 at 08:00 Losartan Potassium (Cozaar) 50 mg DAILY PO Last administered on 08/07/18 09:26 ; Start 08/07/18 at 09:00; Stop 08/08/18 at 07:30; Status DC Magnesium Hydroxide (Milk Of Magnesia) 2,400 mg PRN DAILY PRN PO CONSTIPATION, 1ST CHOICE; Start 08/06/18 at 19:00 Meclizine HCl (Antivert) 12.5 mg BID PO Last administered on 08/08/18 21:38; Start 08/06/18 at 21:00 Metolazone (Zaroxolyn) 5 mg DAILY PO Last administered on 08/07/18 09:23; Start 08/07/18 at 09:00; Stop 08/07/18 at 10:37; Status DC Multivitamins (Thera M Plus) 1 tab DAILY PO Last administered on 08/08/18 08:57 ; Start 08/07/18 at 09:00 Pantoprazole Sodium (Protonix) 40 mg DAILYAC PO Last administered on 08/09/18 09:28; Start 08/07/18 at 07:30 Polyethylene Glycol (miraLAX PACKET) 17 gm DAILY PO Last administered on 08:54; Start 08/07/18 at 09:00 Famotidine (Pepcid) 20 mg DAILY PO Last administered on 08/08/18 08:57; Start 08/07/18 at 09:00 Spironolactone (Aldactone) 25 mg DAILY PO Last administered on 08/07/18 09:27; Start 08/07/18 at 09:00; Stop 08/08/18 at 12:43; Status DC Warfarin Sodium (Coumadin) 5 mg DAILY16 PO ; Start 08/06/18 at 19:30; Stop at 20:46; Status DC Warfarin Sodium (Coumadin Per Physician) 1 each PRN DAILY PRN MC SEE COMMENTS; Start 08/06/18 at 19:00; Stop 08/06/18 at 20:46; Status DC Bumetanide (Bumex) 4 mg BID94 PO Last administered on 08/07/18 09:23; Start 08/07/18 at 09:00; Stop 08/07/18 at 10:33; Status DC Isosorbide Mononitrate (Imdur) 60 mg DAILY PO Last administered on 08/07/18at 09: 27; Start 08/07/18 at 09:00; Stop 08/08/18 at 07:30; Status DC Non-Formulary Medication (Lidocaine (Aspercreme)) 1 each DAILY TP ; Start at 09:00; Status UNV Non-Formulary Medication (Omeprazole ) 40 mg DAILY PO ; Start 08/07/18 at 09:00; Status UNV Multi-Ingredient Ointment (Analgesic [place]) 1 marisol PRN TID PRN TP MUSCLE PAIN; Start 08/06/18 at 20:45; Stop 08/06/18 at 20:45; Status DC Mirtazapine (Remeron) 7.5 mg QHS PO Last administered on 08/08/18at 21:39; Start 08/06/18 at 21:00 Multi-Ingredient Ointment (Analgesic [place]) 1 marisol PRN TID PRN TP MUSCLE PAIN Last administered on 08/06/18at 22:17; Start 08/06/18 at 20:45 Apixaban (Eliquis) 5 mg BID PO Last administered on 08/08/18 08:57; Start at 21:00; Stop 08/08/18 at 13:15; Status DC Info (Anti-Coagulation Monitoring By Pharmacy) 1 each PRN DAILY PRN MC SEE COMMENTS Last administered on 08/08/18at 13:22; Start 08/06/18 at 21:00 Acetaminophen (Tylenol) 650 mg PRN Q6HRS PRN PO TEMP > 100.4F; Start 08/07/18 at 09:00 Acetaminophen (Tylenol Supp) 650 mg PRN Q4HRS PRN [place] TEMP > 100.4F; Start at 09:00 Bumetanide (Bumex) 2 mg BID94 PO ; Start 08/07/18 at 16:00; Stop 08/08/18 at 12:43 ; Status DC Losartan Potassium (Cozaar) 50 mg NOON PO ; Start 08/08/18 at 12:00; Stop at 11:49; Status DC Naloxone HCl (Narcan) 0.4 mg 1X ONCE IV Last administered on 08/08/18at 10:47; Start 08/08/18 at 11:30; Stop 08/08/18 at 11:31; Status DC Atorvastatin Calcium (Lipitor) 40 mg QHS PO Last administered on 08/08/18at 21:39 ; Start 08/08/18 at 21:00 Levetiracetam 500 mg/Dextrose 105 ml @ 420 mls/hr Q12HR IV Last administered on 08/10/18at 08:43; Start 08/08/18 at 12:00 Apixaban (Eliquis) 2.5 mg BID PO ; Start 08/08/18 at 21:00; Stop 08/08/18 at 21:00 ; Status DC Enoxaparin Sodium (Lovenox 40mg Syringe) 40 mg Q24H SQ Last administered on 08/09at 18:37; Start 08/08/18 at 16:00; Stop 08/10/18 at 10:12; Status DC Metoprolol Tartrate (Lopressor Vial) 5 mg PRN Q6HRS PRN IVP HYPERTENSION, SEE COMMENTS; Start 08/08/18 at 15:45; Stop 08/08/18 at 17:09; Status DC Metoprolol Tartrate (Lopressor Vial) 5 mg Q6HRS IVP Last administered on at 00:12; Start 08/08/18 at 18:00 Dextrose (Dextrose 50%-Water Syringe) 25 gm STK-MED ONCE IV ; Start 08/08/18 at 17:25; Stop 08/08/18 at 17:26; Status DC Dextrose (Dextrose 50%-Water Syringe) 25 gm STK-MED ONCE IV ; Start 08/08/18 at 21:40; Stop 08/08/18 at 21:41; Status DC Dextrose (Dextrose 50%-Water Syringe) 12.5 gm PRN Q15MIN PRN IV SEE COMMENTS Last administered on 08/08/18at 21:45; Start 08/08/18 at 21:45 Dextrose (Dextrose 50%-Water Syringe) 25 gm STK-MED ONCE IV ; Start 08/08/18 at 18:00; Stop 08/09/18 at 08:52; Status DC Digoxin (Lanoxin) 250 mcg PRN DAILY PRN IV SEE COMMENTS; Start 08/09/18 at 12:00 Enoxaparin Sodium (Lovenox 30mg Syringe) 30 mg Q24H SQ ; Start 08/10/18 at 16:00 Active Scripts Active Reported Doxycycline Hyclate 100 Mg Tablet 100 Mg PO BID Eliquis (Apixaban) 5 Mg Tablet 5 Mg PO BID Aspercreme 10% Cream (Trolamine Salicylate/Aloe Vera) 35.4 Gm Cream..g. 35.4 Gm TP TID PRN PRN Isosorbide Mononitrate Er (Isosorbide Mononitrate) 60 Mg Tab.er.24h 60 Mg PO DAILY Aspercreme (Lidocaine) 1 Each Adh..patch 1 Each TP DAILY Bumetanide 2 Mg Tablet 4 Mg PO BID Spironolactone 25 Mg Tablet 25 Mg PO DAILY Potassium Chloride 10 Meq Tablet.er 10 Meq PO DAILY Omeprazole 40 Mg Capsule.dr 40 Mg PO DAILY NITROGLYCERIN SubLingual (Nitroglycerin) 0.4 Mg Tab.subl 0.4 Mg SL PRN Q5MIN PRN Escitalopram Oxalate 20 Mg Tablet 1 Tab PO DAILY Diltiazem 24HR Cd (Diltiazem Hcl) 180 Mg Cap.er.24h 1 Cap PO DAILY Ascorbic Acid 500 Mg Tablet 500 Mg PO Multivitamins (Multivitamin) 1 Each Tablet 1 Tab PO DAILY Metolazone 5 Mg Tablet 5 Mg PO DAILY Novolog Flexpen (Insulin Aspart) 100 Unit/1 Ml Insuln.pen 10 Unit SQ TIDAC Tresiba Flextouch U-100 (Insulin Degludec) 100 Unit/1 Ml Insuln.pen 34 Unit SQ DAILYWBKFT Ferrous Sulfate 325 Mg Tablet 1 Tab PO DAILY Dulcolax (Bisacodyl) 10 Mg Supp.rect 10 Mg RC PRN DAILY PRN Aspirin 325 Mg Tablet 1 Tab PO DAILY Metoprolol Tartrate 25 Mg Tablet 25 Tab PO BID Acetaminophen 500 Mg Tablet 500 Mg PO PRN Q8HRS PRN Meclizine Hcl 12.5 Mg Tablet 1 Tab PO BID Hydrocodone-Apap 5-325 (Hydrocodone Bit/Acetaminophen) 1 Each Tablet 1 Tab PO Q12HR PRN Stool Softener (Docusate Sodium) 100 Mg Capsule 100 Mg PO BID Losartan Potassium 100 Mg Tablet 50 Mg PO DAILY Vitals/I & O Vital Sign - Last 24 Hours 08/09/18 08/09/18 08/09/18 08/09/18 11:00 11:48 12:00 13:00 Temp 98.8 98.8 Pulse 78 87 84 Resp 10 16 16 B/P (MAP) 113/64 (80) 119/65 (83) 122/61 (81) Pulse Ox 99 99 100 100 O2 Delivery Room Air BiPAP/CPAP BiPAP/CPAP BiPAP/CPAP 08/09/18 08/09/18 08/09/18 08/09/18 14:00 14:02 14:13 15:00 Pulse 78 75 74 Resp 16 12 B/P (MAP) 115/63 (80) 115/63 109/49 (69) Pulse Ox 100 99 99 O2 Delivery BiPAP/CPAP BiPAP/CPAP Room Air 08/09/18 08/09/18 08/09/18 08/09/18 16:00 17:00 18:00 18:37 Temp 98.0 98.0 Pulse 74 74 80 80 Resp 12 21 24 B/P (MAP) 109/49 (69) 132/48 (76) 148/65 (92) 148/65 Pulse Ox 99 99 99 O2 Delivery Room Air Room Air Room Air 08/09/18 08/09/18 08/09/18 08/09/18 19:00 19:53 19:54 20:08 Pulse 78 79 Resp 18 22 B/P (MAP) 141/67 (91) 113/59 (77) Pulse Ox 100 99 O2 Delivery Room Air Bi-pap Room Air O2 Flow Rate 21.0 21.0 08/09/18 08/09/18 08/09/18 08/10/18 21:15 22:04 23:00 00:01 Temp 99.1 97.5 99.1 97.5 Pulse 79 87 73 70 Resp 22 22 20 22 B/P (MAP) 115/57 (76) 144/84 (104) 150/52 (84) 144/59 (87) Pulse Ox 98 98 100 100 O2 Delivery Room Air Room Air Room Air 08/10/18 08/10/18 08/10/18 08/10/18 00:01 00:01 00:12 01:11 Pulse 75 70 Resp 18 B/P (MAP) 144/59 114/58 (76) Pulse Ox 99 O2 Delivery Bi-pap Room Air O2 Flow Rate 21.0 21.0 08/10/18 08/10/18 08/10/18 08/10/18 02:06 03:00 03:55 04:00 Temp 99.1 99.1 Pulse 84 85 91 Resp 16 24 22 B/P (MAP) 137/63 (87) 131/56 (81) 140/65 (90) Pulse Ox 99 99 99 O2 Delivery Room Air Room Air Room Air Room Air 08/10/18 08/10/18 08/10/18 08/10/18 05:00 05:49 06:00 07:00 Temp 99.4 99.4 Pulse 82 84 85 80 Resp 13 22 22 B/P (MAP) 147/78 (101) 147/78 150/61 (90) 140/65 (90) Pulse Ox 100 99 99 O2 Delivery Room Air Room Air Room Air 08/10/18 08/10/18 08/10/18 08/10/18 08:00 08:00 08:00 09:00 Pulse 84 78 Resp 22 22 B/P (MAP) 147/69 (95) 141/65 (90) Pulse Ox 99 99 O2 Delivery Room Air Room Air Room Air O2 Flow Rate 21.0 08/10/18 10:00 Pulse 80 Resp 22 B/P (MAP) 137/62 (87) Pulse Ox 99 O2 Delivery Room Air Intake and Output 08/09/18 08/09/18 08/10/18 14:59 22:59 06:59 Intake Total 484 ml 644 ml Output Total 455 ml 245 ml Balance 29 ml 399 ml WILLY VINCENT MD Aug 10, 2018 11:00
--- NOTE | 2018-08-10 16:03 | PDOC ---
PROGRESS NOTES Assessment Problems Medical Problems: (1) Change in mental status Status: Acute Left temporal stroke with aphasia, receptive and expressive components. New acute infarction in the region of the right thalamus, and possibly posterior right internal capsule and medial left thalamus, possible new tiny focus of acute infarction in the anterior left temporal lobe. Right P2 intracranial stenosis The combination of bilateral infarcts, although each is fairly small and non- life-threatening, has rendered her in a comatose state Lumbar spine disease: old superior L2 compression fracture, advanced degenerative disc disease L5-S1, severe spinal stenosis L4-5, right greater than left L5-S1 neural foramina compromise, mild to moderate narrowing of the L5 -S1 neural foramen, minimal narrowing of the left L5-S1 and L3-4 neural foramina , grade 1 anterior spondylolisthesis at L4-5, negligible anterior spondylolisthesis at L5-S1. There is facet degenerative change greater inferiorly of the lumbar spine. Cervical spondylosis: degenerative disc disease at C4-C7 Plan Lovenox Risks outweigh benefits of heparin, acute intracranial hemorrhage. 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 Also, the patient is at risk for further embolic strokes Fully discussed with patient's grand daughter. Agree with palliative care consult EEG on 08/12 for completeness, continue levetiracetam Subjective None Objective Vital Signs Date Time Temp Pulse Resp B/P (MAP) Pulse Ox O2 Delivery O2 Flow Rate FiO2 08/10/18 15:00 84 22 142/67 (92) 99 Room Air 08/10/18 12:00 21.0 08/10/18 12:00 98.9 98.9 Intake and Output 08/10/18 07:00 Intake Total 1128 ml Output Total 700 ml Balance 428 ml Intake Oral 0 ml IV Total 105 ml Tube Feeding 723 ml Other 300 ml Output Urine Total 700 ml PHYSICAL EXAM Eyes closed, does not respond to voice, no longer has Johnny-Silva respirations PERRL. EOMI. CN: no focal findings. Muscle tone: normal. Muscle strength: minimal withdrawal on right to mild stimulation DTR: 1+ Plantar reflex: Silent Gait: not examined. Sensory exam: Not cooperative. Cerebellar: Not cooperative Review of Relevant I have reviewed the following items alejandra (where applicable) has been applied. Labs Laboratory Tests Test 08/08/18 17:23 08/08/18 17:52 08/08/18 21:37 08/08/18 22:02 Glucose (Fingerstick) 48 mg/dL (70-99) 189 mg/dL (70-99) 68 mg/dL (70-99) 136 mg/dL (70-99) Test 08/09/18 04:30 08/09/18 09:33 08/09/18 14:17 08/10/18 00:08 White Blood Count 10.8 x10^3/uL (4.0-11.0) Red Blood Count 3.80 x10^6/uL (3.50-5.40) Hemoglobin 12.4 g/dL (12.0-15.5) Hematocrit 36.8 % (36.0-47.0) Mean Corpuscular Volume 97 fL (79-100) Mean Corpuscular Hemoglobin 33 pg (25-35) Mean Corpuscular Hemoglobin Concent 34 g/dL (31-37) Red Cell Distribution Width 14.8 % (11.5-14.5) Platelet Count 315 x10^3/uL (140-400) Neutrophils (%) (Auto) 76 % (31-73) Lymphocytes (%) (Auto) 13 % (24-48) Monocytes (%) (Auto) 8 % (0-9) Eosinophils (%) (Auto) 2 % (0-3) Basophils (%) (Auto) 0 % (0-3) Neutrophils # (Auto) 8.2 x10^3uL (1.8-7.7) Lymphocytes # (Auto) 1.4 x10^3/uL (1.0-4.8) Monocytes # (Auto) 0.9 x10^3/uL (0.0-1.1) Eosinophils # (Auto) 0.3 x10^3/uL (0.0-0.7) Basophils # (Auto) 0.0 x10^3/uL (0.0-0.2) Sodium Level 141 mmol/L (136-145) Potassium Level 4.2 mmol/L (3.5-5.1) Chloride Level 105 mmol/L (98-107) Carbon Dioxide Level 29 mmol/L (21-32) Anion Gap 7 (6-14) Blood Urea Nitrogen 46 mg/dL (7-20) Creatinine 1.4 mg/dL (0.6-1.0) Estimated GFR (Cockcroft-Gault) 36.0 Glucose Level 81 mg/dL (70-99) Calcium Level 9.7 mg/dL (8.5-10.1) Glucose (Fingerstick) 87 mg/dL (70-99) 122 mg/dL (70-99) 202 mg/dL (70-99) Test 08/10/18 03:33 08/10/18 08:42 08/10/18 13:01 White Blood Count 13.3 x10^3/uL (4.0-11.0) Red Blood Count 3.95 x10^6/uL (3.50-5.40) Hemoglobin 12.7 g/dL (12.0-15.5) Hematocrit 38.4 % (36.0-47.0) Mean Corpuscular Volume 97 fL (79-100) Mean Corpuscular Hemoglobin 32 pg (25-35) Mean Corpuscular Hemoglobin Concent 33 g/dL (31-37) Red Cell Distribution Width 14.7 % (11.5-14.5) Platelet Count 310 x10^3/uL (140-400) Neutrophils (%) (Auto) 84 % (31-73) Lymphocytes (%) (Auto) 8 % (24-48) Monocytes (%) (Auto) 7 % (0-9) Eosinophils (%) (Auto) 0 % (0-3) Basophils (%) (Auto) 0 % (0-3) Neutrophils # (Auto) 11.2 x10^3uL (1.8-7.7) Lymphocytes # (Auto) 1.1 x10^3/uL (1.0-4.8) Monocytes # (Auto) 0.9 x10^3/uL (0.0-1.1) Eosinophils # (Auto) 0.1 x10^3/uL (0.0-0.7) Basophils # (Auto) 0.0 x10^3/uL (0.0-0.2) Sodium Level 140 mmol/L (136-145) Potassium Level 4.7 mmol/L (3.5-5.1) Chloride Level 104 mmol/L (98-107) Carbon Dioxide Level 27 mmol/L (21-32) Anion Gap 9 (6-14) Blood Urea Nitrogen 47 mg/dL (7-20) Creatinine 1.8 mg/dL (0.6-1.0) Estimated GFR (Cockcroft-Gault) 26.9 Glucose Level 282 mg/dL (70-99) Calcium Level 9.5 mg/dL (8.5-10.1) Glucose (Fingerstick) 304 mg/dL (70-99) 276 mg/dL (70-99) Laboratory Tests Test 08/10/18 00:08 08/10/18 03:33 08/10/18 08:42 08/10/18 13:01 Glucose (Fingerstick) 202 mg/dL (70-99) 304 mg/dL (70-99) 276 mg/dL (70-99) White Blood Count 13.3 x10^3/uL (4.0-11.0) Red Blood Count 3.95 x10^6/uL (3.50-5.40) Hemoglobin 12.7 g/dL (12.0-15.5) Hematocrit 38.4 % (36.0-47.0) Mean Corpuscular Volume 97 fL (79-100) Mean Corpuscular Hemoglobin 32 pg (25-35) Mean Corpuscular Hemoglobin Concent 33 g/dL (31-37) Red Cell Distribution Width 14.7 % (11.5-14.5) Platelet Count 310 x10^3/uL (140-400) Neutrophils (%) (Auto) 84 % (31-73) Lymphocytes (%) (Auto) 8 % (24-48) Monocytes (%) (Auto) 7 % (0-9) Eosinophils (%) (Auto) 0 % (0-3) Basophils (%) (Auto) 0 % (0-3) Neutrophils # (Auto) 11.2 x10^3uL (1.8-7.7) Lymphocytes # (Auto) 1.1 x10^3/uL (1.0-4.8) Monocytes # (Auto) 0.9 x10^3/uL (0.0-1.1) Eosinophils # (Auto) 0.1 x10^3/uL (0.0-0.7) Basophils # (Auto) 0.0 x10^3/uL (0.0-0.2) Sodium Level 140 mmol/L (136-145) Potassium Level 4.7 mmol/L (3.5-5.1) Chloride Level 104 mmol/L (98-107) Carbon Dioxide Level 27 mmol/L (21-32) Anion Gap 9 (6-14) Blood Urea Nitrogen 47 mg/dL (7-20) Creatinine 1.8 mg/dL (0.6-1.0) Estimated GFR (Cockcroft-Gault) 26.9 Glucose Level 282 mg/dL (70-99) Calcium Level 9.5 mg/dL (8.5-10.1) Microbiology 08/06/18 Blood Culture - Preliminary, Resulted NO GROWTH AFTER 3 DAYS Medications Current Medications Sodium Chloride 500 ml @ 500 mls/hr 1X ONCE IV Last administered on 08/06/18 16:21; Start 08/06/18 at 16:00; Stop 08/06/18 at 16:59; Status DC Ondansetron HCl (Zofran) 4 mg PRN Q6HRS PRN IV NAUSEA/VOMITING; Start 08/06/18 at 18:15 Morphine Sulfate (Morphine Sulfate) 1 mg PRN Q1HR PRN IV PAIN; Start 08/06/18 at 18:15 Lactulose (Lactulose) 20 gm PRN Q12HR PRN PO CONSTIPATION, 2ND CHOICE; Start at 18:15 Heparin Sodium (Porcine) (Heparin Sodium) 5,000 unit Q12HR SQ ; Start 08/06/18 at 21:00; Stop 08/06/18 at 21:00; Status DC Ascorbic Acid (Vitamin C) 500 mg DAILY PO Last administered on 08/08/18 08:57; Start 08/07/18 at 09:00 Aspirin (Derek Aspirin) 325 mg DAILY PO Last administered on 08/08/18 08:56; Start 08/07/18 at 09:00; Stop 08/08/18 at 15:05; Status DC Calcium/Vitamin D (Oscal D 500mg/ 200uts) 1 tab DAILY PO Last administered on 08:57; Start 08/07/18 at 09:00 Docusate Sodium (Colace) 100 mg BID PO Last administered on 08/09/18 09:28; Start 08/06/18 at 21:00 Ferrous Sulfate (Feosol) 325 mg DAILY PO Last administered on 08/08/18 08:56; Start 08/07/18 at 09:00 Acetaminophen/ Hydrocodone Bitart (Lortab 5/325) 1 tab PRN Q12HRS PRN PO MODERATE PAIN Last administered on 08/08/18 02:32; Start 08/06/18 at 18:15 Metoprolol Tartrate (Lopressor) 25 mg BID PO Last administered on 08/08/18 08: 57; Start 08/06/18 at 21:00; Stop 08/09/18 at 19:16; Status DC Nitroglycerin (Nitrostat) 0.4 mg PRN Q5MIN PRN SL CHEST PAIN; Start 08/06/18 at 18:15 Oxycodone/ Acetaminophen (Percocet 5/325) 1 tab PRN Q6HRS PRN PO SEVERE PAIN Last administered on 08/07/18 21:12; Start 08/06/18 at 18:15 Potassium Chloride (Klor-Con) 10 meq DAILY PO Last administered on 08/08/18 08: 56; Start 08/07/18 at 09:00 Acetaminophen (Tylenol) 500 mg PRN Q8HRS PRN PO MILD PAIN / TEMP Last administered on 08/07/18 14:07; Start 08/06/18 at 19:00; Stop 08/08/18 at 14:52; Status DC Bisacodyl (Dulcolax Supp) 10 mg PRN DAILY PRN [place] CONSTIPATION Last administered on 08/09/18 09:28; Start 08/06/18 at 19:00 Diltiazem HCl (Cardizem 24hr Cd) 180 mg DAILY PO Last administered on 08/08/18 08:56; Start 08/07/18 at 09:00; Stop 08/09/18 at 11:49; Status DC Citalopram Hydrobromide (CeleXA) 40 mg DAILY PO Last administered on 08/09/18 09:28; Start 08/07/18 at 09:00 Insulin Human Lispro (HumaLOG) 10 units TIDWMEALS SQ Last administered on 13:04; Start 08/06/18 at 19:30 Insulin Glargine (Lantus) 34 units DAILYWBKFT SQ Last administered on 08/10/18 08:47; Start 08/07/18 at 08:00 Losartan Potassium (Cozaar) 50 mg DAILY PO Last administered on 08/07/18 09:26 ; Start 08/07/18 at 09:00; Stop 08/08/18 at 07:30; Status DC Magnesium Hydroxide (Milk Of Magnesia) 2,400 mg PRN DAILY PRN PO CONSTIPATION, 1ST CHOICE; Start 08/06/18 at 19:00 Meclizine HCl (Antivert) 12.5 mg BID PO Last administered on 08/08/18 21:38; Start 08/06/18 at 21:00 Metolazone (Zaroxolyn) 5 mg DAILY PO Last administered on 08/07/18 09:23; Start 08/07/18 at 09:00; Stop 08/07/18 at 10:37; Status DC Multivitamins (Thera M Plus) 1 tab DAILY PO Last administered on 08/08/18 08:57 ; Start 08/07/18 at 09:00 Pantoprazole Sodium (Protonix) 40 mg DAILYAC PO Last administered on 08/09/18 09:28; Start 08/07/18 at 07:30 Polyethylene Glycol (miraLAX PACKET) 17 gm DAILY PO Last administered on 08:54; Start 08/07/18 at 09:00 Famotidine (Pepcid) 20 mg DAILY PO Last administered on 08/08/18 08:57; Start 08/07/18 at 09:00 Spironolactone (Aldactone) 25 mg DAILY PO Last administered on 08/07/18 09:27; Start 08/07/18 at 09:00; Stop 08/08/18 at 12:43; Status DC Warfarin Sodium (Coumadin) 5 mg DAILY16 PO ; Start 08/06/18 at 19:30; Stop at 20:46; Status DC Warfarin Sodium (Coumadin Per Physician) 1 each PRN DAILY PRN MC SEE COMMENTS; Start 08/06/18 at 19:00; Stop 08/06/18 at 20:46; Status DC Bumetanide (Bumex) 4 mg BID94 PO Last administered on 08/07/18 09:23; Start 08/07/18 at 09:00; Stop 08/07/18 at 10:33; Status DC Isosorbide Mononitrate (Imdur) 60 mg DAILY PO Last administered on 08/07/18 09: 27; Start 08/07/18 at 09:00; Stop 08/08/18 at 07:30; Status DC Non-Formulary Medication (Lidocaine (Aspercreme)) 1 each DAILY TP ; Start at 09:00; Status UNV Non-Formulary Medication (Omeprazole ) 40 mg DAILY PO ; Start 08/07/18 at 09:00; Status UNV Multi-Ingredient Ointment (Analgesic [place]) 1 marisol PRN TID PRN TP MUSCLE PAIN; Start 08/06/18 at 20:45; Stop 08/06/18 at 20:45; Status DC Mirtazapine (Remeron) 7.5 mg QHS PO Last administered on 08/08/18 21:39; Start 08/06/18 at 21:00 Multi-Ingredient Ointment (Analgesic [place]) 1 marisol PRN TID PRN TP MUSCLE PAIN Last administered on 08/06/18 22:17; Start 08/06/18 at 20:45 Apixaban (Eliquis) 5 mg BID PO Last administered on 08/08/18 08:57; Start at 21:00; Stop 08/08/18 at 13:15; Status DC Info (Anti-Coagulation Monitoring By Pharmacy) 1 each PRN DAILY PRN MC SEE COMMENTS Last administered on 08/08/18at 13:22; Start 08/06/18 at 21:00 Acetaminophen (Tylenol) 650 mg PRN Q6HRS PRN PO TEMP > 100.4F; Start 08/07/18 at 09:00 Acetaminophen (Tylenol Supp) 650 mg PRN Q4HRS PRN [place] TEMP > 100.4F; Start at 09:00 Bumetanide (Bumex) 2 mg BID94 PO ; Start 08/07/18 at 16:00; Stop 08/08/18 at 12:43 ; Status DC Losartan Potassium (Cozaar) 50 mg NOON PO ; Start 08/08/18 at 12:00; Stop at 11:49; Status DC Naloxone HCl (Narcan) 0.4 mg 1X ONCE IV Last administered on 08/08/18at 10:47; Start 08/08/18 at 11:30; Stop 08/08/18 at 11:31; Status DC Atorvastatin Calcium (Lipitor) 40 mg QHS PO Last administered on 08/08/18at 21:39 ; Start 08/08/18 at 21:00 Levetiracetam 500 mg/Dextrose 105 ml @ 420 mls/hr Q12HR IV Last administered on 08/10/18at 08:43; Start 08/08/18 at 12:00 Apixaban (Eliquis) 2.5 mg BID PO ; Start 08/08/18 at 21:00; Stop 08/08/18 at 21:00 ; Status DC Enoxaparin Sodium (Lovenox 40mg Syringe) 40 mg Q24H SQ Last administered on 08/09at 18:37; Start 08/08/18 at 16:00; Stop 08/10/18 at 10:12; Status DC Metoprolol Tartrate (Lopressor Vial) 5 mg PRN Q6HRS PRN IVP HYPERTENSION, SEE COMMENTS; Start 08/08/18 at 15:45; Stop 08/08/18 at 17:09; Status DC Metoprolol Tartrate (Lopressor Vial) 5 mg Q6HRS IVP Last administered on at 00:12; Start 08/08/18 at 18:00 Dextrose (Dextrose 50%-Water Syringe) 25 gm STK-MED ONCE IV ; Start 08/08/18 at 17:25; Stop 08/08/18 at 17:26; Status DC Dextrose (Dextrose 50%-Water Syringe) 25 gm STK-MED ONCE IV ; Start 08/08/18 at 21:40; Stop 08/08/18 at 21:41; Status DC Dextrose (Dextrose 50%-Water Syringe) 12.5 gm PRN Q15MIN PRN IV SEE COMMENTS Last administered on 08/08/18at 21:45; Start 08/08/18 at 21:45 Dextrose (Dextrose 50%-Water Syringe) 25 gm STK-MED ONCE IV ; Start 08/08/18 at 18:00; Stop 08/09/18 at 08:52; Status DC Digoxin (Lanoxin) 250 mcg PRN DAILY PRN IV SEE COMMENTS; Start 08/09/18 at 12:00 Enoxaparin Sodium (Lovenox 30mg Syringe) 30 mg Q24H SQ ; Start 08/10/18 at 16:00 Active Scripts Active Reported Doxycycline Hyclate 100 Mg Tablet 100 Mg PO BID Eliquis (Apixaban) 5 Mg Tablet 5 Mg PO BID Aspercreme 10% Cream (Trolamine Salicylate/Aloe Vera) 35.4 Gm Cream..g. 35.4 Gm TP TID PRN PRN Isosorbide Mononitrate Er (Isosorbide Mononitrate) 60 Mg Tab.er.24h 60 Mg PO DAILY Aspercreme (Lidocaine) 1 Each Adh..patch 1 Each TP DAILY Bumetanide 2 Mg Tablet 4 Mg PO BID Spironolactone 25 Mg Tablet 25 Mg PO DAILY Potassium Chloride 10 Meq Tablet.er 10 Meq PO DAILY Omeprazole 40 Mg Capsule.dr 40 Mg PO DAILY NITROGLYCERIN SubLingual (Nitroglycerin) 0.4 Mg Tab.subl 0.4 Mg SL PRN Q5MIN PRN Escitalopram Oxalate 20 Mg Tablet 1 Tab PO DAILY Diltiazem 24HR Cd (Diltiazem Hcl) 180 Mg Cap.er.24h 1 Cap PO DAILY Ascorbic Acid 500 Mg Tablet 500 Mg PO Multivitamins (Multivitamin) 1 Each Tablet 1 Tab PO DAILY Metolazone 5 Mg Tablet 5 Mg PO DAILY Novolog Flexpen (Insulin Aspart) 100 Unit/1 Ml Insuln.pen 10 Unit SQ TIDAC Tresiba Flextouch U-100 (Insulin Degludec) 100 Unit/1 Ml Insuln.pen 34 Unit SQ DAILYWBKFT Ferrous Sulfate 325 Mg Tablet 1 Tab PO DAILY Dulcolax (Bisacodyl) 10 Mg Supp.rect 10 Mg RC PRN DAILY PRN Aspirin 325 Mg Tablet 1 Tab PO DAILY Metoprolol Tartrate 25 Mg Tablet 25 Tab PO BID Acetaminophen 500 Mg Tablet 500 Mg PO PRN Q8HRS PRN Meclizine Hcl 12.5 Mg Tablet 1 Tab PO BID Hydrocodone-Apap 5-325 (Hydrocodone Bit/Acetaminophen) 1 Each Tablet 1 Tab PO Q12HR PRN Stool Softener (Docusate Sodium) 100 Mg Capsule 100 Mg PO BID Losartan Potassium 100 Mg Tablet 50 Mg PO DAILY Vitals/I & O Vital Sign - Last 24 Hours 08/09/18 08/09/18 08/09/18 08/09/18 17:00 18:00 18:37 19:00 Temp 98.0 98.0 Pulse 74 80 80 78 Resp 18 B/P (MAP) 132/48 (76) 148/65 (92) 148/65 141/67 (91) Pulse Ox 99 99 100 O2 Delivery Room Air Room Air Room Air 08/09/18 08/09/18 08/09/18 08/09/18 19:53 19:54 20:08 21:15 Temp 99.1 99.1 Pulse 79 79 Resp 22 B/P (MAP) 113/59 (77) 115/57 (76) Pulse Ox 99 98 O2 Delivery Bi-pap Room Air Room Air O2 Flow Rate 21.0 21.0 08/09/18 08/09/18 08/10/18 08/10/18 22:04 23:00 00:01 00:01 Temp 97.5 97.5 Pulse 87 73 70 Resp B/P (MAP) 144/84 (104) 150/52 (84) 144/59 (87) Pulse Ox 98 100 100 O2 Delivery Room Air Room Air O2 Flow Rate 21.0 08/10/18 08/10/18 08/10/18 08/10/18 00:01 00:12 01:11 02:06 Pulse 75 70 84 Resp 18 16 B/P (MAP) 144/59 114/58 (76) 137/63 (87) Pulse Ox 99 99 O2 Delivery Bi-pap Room Air Room Air O2 Flow Rate 21.0 08/10/18 08/10/18 08/10/18 08/10/18 03:00 03:55 04:00 05:00 Temp 99.1 99.1 Pulse 85 91 82 Resp 13 B/P (MAP) 131/56 (81) 140/65 (90) 147/78 (101) Pulse Ox 99 99 100 O2 Delivery Room Air Room Air Room Air Room Air 08/10/18 08/10/18 08/10/18 08/10/18 05:49 06:00 07:00 08:00 Temp 99.4 99.4 Pulse 84 85 80 Resp 22 B/P (MAP) 147/78 150/61 (90) 140/65 (90) Pulse Ox 99 99 O2 Delivery Room Air Room Air Room Air 08/10/18 08/10/18 08/10/18 08/10/18 08:00 08:00 09:00 10:00 Pulse 84 78 80 Resp 22 22 22 B/P (MAP) 147/69 (95) 141/65 (90) 137/62 (87) Pulse Ox 99 99 99 O2 Delivery Room Air Room Air Room Air O2 Flow Rate 21.0 08/10/18 08/10/18 08/10/18 08/10/18 11:00 12:00 12:00 12:00 Temp 98.9 98.9 Pulse 80 84 Resp 22 26 B/P (MAP) 132/67 (88) 139/72 (94) Pulse Ox 99 99 O2 Delivery Room Air Room Air Room Air O2 Flow Rate 21.0 08/10/18 08/10/18 08/10/18 13:00 14:00 15:00 Pulse 80 82 84 Resp 22 B/P (MAP) 132/67 (88) 144/71 (95) 142/67 (92) Pulse Ox 99 99 99 O2 Delivery Room Air Room Air Room Air Intake and Output 08/09/18 08/09/18 08/10/18 15:00 23:00 07:00 Intake Total 514 ml 614 ml Output Total 490 ml 210 ml Balance 24 ml 404 ml LIONEL OGLESBY MD Aug 10, 2018 16:03
[2018-08-10] MEDS: ENOXAPARIN 30 MG/0.3 ML SYRINGE. SQ SCH (16:54)
[2018-08-10] MEDS: ATORVASTATIN CALCIUM 40 MG TABLET. PO SCH (20:50)
[2018-08-10] MEDS: MIRTAZAPINE 7.5 MG TABLET. PO SCH (20:50)
[2018-08-11] VITALS (23 sets, daily range): BP systolic 115–162; BP diastolic 50–73
[2018-08-11] MEDS: METOPROLOL TARTRATE 5 MG/5 ML VIAL. IVP SCH ×4 (00:16→16:32)
[2018-08-11 04:53] LABS: BASO # 0.1 x10^3/uL (0.0-0.2); BASO % 0 % (0-3); EOS # 0.1 x10^3/uL (0.0-0.7); EOS % 1 % (0-3); HEMATOCRIT 36.6 % (36.0-47.0); LYMPH # 0.9 x10^3/uL (1.0-4.8); LYMPH % 7 % (24-48); MEAN CORPUSCULAR HEMOGLOBIN 32 pg (25-35); MEAN CORPUSCULAR HGB CONC 33 g/dL (31-37); MEAN CORPUSCULAR VOLUME 98 fL (79-100); MONO # 1.1 x10^3/uL (0.0-1.1); MONO % 8 % (0-9); NEUT % 85 % (31-73); PLATELET COUNT 250 x10^3/uL (140-400); RED BLOOD COUNT 3.73 x10^6/uL (3.50-5.40); RED CELL DISTRIBUTION WIDTH 14.8 % (11.5-14.5)
[2018-08-11 05:22] LABS: CALCIUM 9.6 mg/dL (8.5-10.1); CREATININE 1.6 mg/dL (0.6-1.0); GFR 30.9; POTASSIUM 4.6 mmol/L (3.5-5.1)
[2018-08-11 07:01] LABS: % EOS 1 % (0-5); % LYMPHS 11 % (24-48); % MONOS 5 % (0-10); % SEGS 83 % (35-66)
[2018-08-11 07:02] LABS: PLT ESTIMATE ADEQUATE (ADEQUATE)
[2018-08-11] MEDS: PANTOPRAZOLE 40 MG TABLET.DR. PO SCH (07:30)
[2018-08-11] MEDS: CITALOPRAM 20 MG TABLET. PO SCH (07:47)
[2018-08-11] MEDS: POLYETHYLENE GLYCOL 3350 17 GM PACKET. PO SCH (07:48)
[2018-08-11] MEDS: MULTIVITAMIN with MINERAL TABLET. PO SCH (07:48)
[2018-08-11] MEDS: POTASSIUM CHLORIDE 10 MEQ TABLET.ER. PO SCH (07:48)
[2018-08-11] MEDS: FAMOTIDINE 20 MG TABLET. PO SCH (07:48)
[2018-08-11] MEDS: FERROUS SULFATE 325 MG TABLET. PO SCH (07:48)
[2018-08-11] MEDS: CALCIUM CARB/VIT D3 500/200 TABLET. PO SCH (07:48)
[2018-08-11] MEDS: ASCORBIC ACID 500 MG TABLET PO SCH (07:48)
[2018-08-11] MEDS: INSULIN LISPRO 300 UNITS/3 ML INSULN.PEN. SQ SCH ×3 (08:54→16:35)
[2018-08-11] MEDS: INSULIN GLARGINE 300 UNITS/3 ML INSULN.PEN. SQ SCH (08:57)
[2018-08-11] MEDS: levETIRAcetam 500 MG in IV DEXTROSE 5% 100ML 100 ML IV SCH ×2 (08:58→21:31)
[2018-08-11] MEDS: MECLIZINE HCL 12.5 MG TABLET. PO SCH ×2 (09:00→21:35)
[2018-08-11] MEDS: DOCUSATE SODIUM 100 MG CAPSULE. PO SCH ×2 (09:00→20:53)
--- NOTE | 2018-08-11 09:50 | PDOC ---
PROGRESS NOTES Assessment Problems Medical Problems: (1) Change in mental status Status: Acute Admitted with left temporal stroke with aphasia, receptive and expressive components. Then had new acute infarction in the region of the right thalamus, and possibly posterior right internal capsule and medial left thalamus, possible new tiny focus of acute infarction in the anterior left temporal lobe. Right P2 intracranial stenosis Cardioembolic phenomenon The combination of bilateral infarcts, although each is fairly small and non- life-threatening, has rendered her in a near-comatose state. She is slowly improving Lumbar spine disease: old superior L2 compression fracture, advanced degenerative disc disease L5-S1, severe spinal stenosis L4-5, right greater than left L5-S1 neural foramina compromise, mild to moderate narrowing of the L5 -S1 neural foramen, minimal narrowing of the left L5-S1 and L3-4 neural foramina , grade 1 anterior spondylolisthesis at L4-5, negligible anterior spondylolisthesis at L5-S1. There is facet degenerative change greater inferiorly of the lumbar spine. Cervical spondylosis: degenerative disc disease at C4-C7 Plan Lovenox Risks outweigh benefits of heparin, acute intracranial hemorrhage. 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 Also, the patient is at risk for further embolic strokes Fully discussed with patient's grand daughter. Agree with palliative care consult EEG on 08/12 for completeness, continue levetiracetam until then Subjective none Objective Vital Signs Date Time Temp Pulse Resp B/P (MAP) Pulse Ox O2 Delivery O2 Flow Rate FiO2 08/11/18 06:00 81 20 140/55 (83) 98 Room Air 08/11/18 04:00 21.0 08/11/18 04:00 99.9 99.9 Intake and Output 08/11/18 06:59 Intake Total 1301 ml Output Total 1015 ml Balance 286 ml Intake Oral 0 ml IV Total 210 ml Tube Feeding 890 ml Other 201 ml Output Urine Total 1015 ml PHYSICAL EXAM Eyes closed, moans and says "uh uh," to calling her name. Does not follow commands PERRL. EOMI. CN: no focal findings. Muscle tone: normal. Muscle strength: minimal withdrawal on right to mild stimulation DTR: 1+ Plantar reflex: Silent Gait: not examined. Sensory exam: Not cooperative. Cerebellar: Not cooperative Review of Relevant I have reviewed the following items alejandra (where applicable) has been applied. Labs Laboratory Tests Test 08/09/18 14:17 08/10/18 00:08 08/10/18 03:33 08/10/18 08:42 Glucose (Fingerstick) 122 mg/dL (70-99) 202 mg/dL (70-99) 304 mg/dL (70-99) White Blood Count 13.3 x10^3/uL (4.0-11.0) Red Blood Count 3.95 x10^6/uL (3.50-5.40) Hemoglobin 12.7 g/dL (12.0-15.5) Hematocrit 38.4 % (36.0-47.0) Mean Corpuscular Volume 97 fL (79-100) Mean Corpuscular Hemoglobin 32 pg (25-35) Mean Corpuscular Hemoglobin Concent 33 g/dL (31-37) Red Cell Distribution Width 14.7 % (11.5-14.5) Platelet Count 310 x10^3/uL (140-400) Neutrophils (%) (Auto) 84 % (31-73) Lymphocytes (%) (Auto) 8 % (24-48) Monocytes (%) (Auto) 7 % (0-9) Eosinophils (%) (Auto) 0 % (0-3) Basophils (%) (Auto) 0 % (0-3) Neutrophils # (Auto) 11.2 x10^3uL (1.8-7.7) Lymphocytes # (Auto) 1.1 x10^3/uL (1.0-4.8) Monocytes # (Auto) 0.9 x10^3/uL (0.0-1.1) Eosinophils # (Auto) 0.1 x10^3/uL (0.0-0.7) Basophils # (Auto) 0.0 x10^3/uL (0.0-0.2) Sodium Level 140 mmol/L (136-145) Potassium Level 4.7 mmol/L (3.5-5.1) Chloride Level 104 mmol/L (98-107) Carbon Dioxide Level 27 mmol/L (21-32) Anion Gap 9 (6-14) Blood Urea Nitrogen 47 mg/dL (7-20) Creatinine 1.8 mg/dL (0.6-1.0) Estimated GFR (Cockcroft-Gault) 26.9 Glucose Level 282 mg/dL (70-99) Calcium Level 9.5 mg/dL (8.5-10.1) Test 08/10/18 13:01 08/10/18 16:58 08/10/18 20:59 08/11/18 04:30 Glucose (Fingerstick) 276 mg/dL (70-99) 209 mg/dL (70-99) 173 mg/dL (70-99) White Blood Count 13.0 x10^3/uL (4.0-11.0) Red Blood Count 3.73 x10^6/uL (3.50-5.40) Hemoglobin 12.0 g/dL (12.0-15.5) Hematocrit 36.6 % (36.0-47.0) Mean Corpuscular Volume 98 fL (79-100) Mean Corpuscular Hemoglobin 32 pg (25-35) Mean Corpuscular Hemoglobin Concent 33 g/dL (31-37) Red Cell Distribution Width 14.8 % (11.5-14.5) Platelet Count 250 x10^3/uL (140-400) Neutrophils (%) (Auto) 85 % (31-73) Lymphocytes (%) (Auto) 7 % (24-48) Monocytes (%) (Auto) 8 % (0-9) Eosinophils (%) (Auto) 1 % (0-3) Basophils (%) (Auto) 0 % (0-3) Neutrophils # (Auto) 11.0 x10^3uL (1.8-7.7) Lymphocytes # (Auto) 0.9 x10^3/uL (1.0-4.8) Monocytes # (Auto) 1.1 x10^3/uL (0.0-1.1) Eosinophils # (Auto) 0.1 x10^3/uL (0.0-0.7) Basophils # (Auto) 0.1 x10^3/uL (0.0-0.2) Segmented Neutrophils % 83 % (35-66) Lymphocytes % 11 % (24-48) Monocytes % 5 % (0-10) Eosinophils % 1 % (0-5) Platelet Estimate Adequate (ADEQUATE) Sodium Level 140 mmol/L (136-145) Potassium Level 4.6 mmol/L (3.5-5.1) Chloride Level 103 mmol/L (98-107) Carbon Dioxide Level 29 mmol/L (21-32) Anion Gap 8 (6-14) Blood Urea Nitrogen 45 mg/dL (7-20) Creatinine 1.6 mg/dL (0.6-1.0) Estimated GFR (Cockcroft-Gault) 30.9 Glucose Level 256 mg/dL (70-99) Calcium Level 9.6 mg/dL (8.5-10.1) Test 08/11/18 08:21 Glucose (Fingerstick) 239 mg/dL (70-99) Laboratory Tests Test 08/10/18 13:01 08/10/18 16:58 08/10/18 20:59 08/11/18 04:30 Glucose (Fingerstick) 276 mg/dL (70-99) 209 mg/dL (70-99) 173 mg/dL (70-99) White Blood Count 13.0 x10^3/uL (4.0-11.0) Red Blood Count 3.73 x10^6/uL (3.50-5.40) Hemoglobin 12.0 g/dL (12.0-15.5) Hematocrit 36.6 % (36.0-47.0) Mean Corpuscular Volume 98 fL (79-100) Mean Corpuscular Hemoglobin 32 pg (25-35) Mean Corpuscular Hemoglobin Concent 33 g/dL (31-37) Red Cell Distribution Width 14.8 % (11.5-14.5) Platelet Count 250 x10^3/uL (140-400) Neutrophils (%) (Auto) 85 % (31-73) Lymphocytes (%) (Auto) 7 % (24-48) Monocytes (%) (Auto) 8 % (0-9) Eosinophils (%) (Auto) 1 % (0-3) Basophils (%) (Auto) 0 % (0-3) Neutrophils # (Auto) 11.0 x10^3uL (1.8-7.7) Lymphocytes # (Auto) 0.9 x10^3/uL (1.0-4.8) Monocytes # (Auto) 1.1 x10^3/uL (0.0-1.1) Eosinophils # (Auto) 0.1 x10^3/uL (0.0-0.7) Basophils # (Auto) 0.1 x10^3/uL (0.0-0.2) Segmented Neutrophils % 83 % (35-66) Lymphocytes % 11 % (24-48) Monocytes % 5 % (0-10) Eosinophils % 1 % (0-5) Platelet Estimate Adequate (ADEQUATE) Sodium Level 140 mmol/L (136-145) Potassium Level 4.6 mmol/L (3.5-5.1) Chloride Level 103 mmol/L (98-107) Carbon Dioxide Level 29 mmol/L (21-32) Anion Gap 8 (6-14) Blood Urea Nitrogen 45 mg/dL (7-20) Creatinine 1.6 mg/dL (0.6-1.0) Estimated GFR (Cockcroft-Gault) 30.9 Glucose Level 256 mg/dL (70-99) Calcium Level 9.6 mg/dL (8.5-10.1) Test 08/11/18 08:21 Glucose (Fingerstick) 239 mg/dL (70-99) Microbiology 08/06/18 Blood Culture - Preliminary, Resulted NO GROWTH AFTER 4 DAYS Medications Current Medications Sodium Chloride 500 ml @ 500 mls/hr 1X ONCE IV Last administered on 08/06/18at 16:21; Start 08/06/18 at 16:00; Stop 08/06/18 at 16:59; Status DC Ondansetron HCl (Zofran) 4 mg PRN Q6HRS PRN IV NAUSEA/VOMITING; Start 08/06/18 at 18:15 Morphine Sulfate (Morphine Sulfate) 1 mg PRN Q1HR PRN IV PAIN; Start 08/06/18 at 18:15 Lactulose (Lactulose) 20 gm PRN Q12HR PRN PO CONSTIPATION, 2ND CHOICE; Start at 18:15 Heparin Sodium (Porcine) (Heparin Sodium) 5,000 unit Q12HR SQ ; Start 08/06/18 at 21:00; Stop 08/06/18 at 21:00; Status DC Ascorbic Acid (Vitamin C) 500 mg DAILY PO Last administered on 08/08/18at 08:57; Start 08/07/18 at 09:00 Aspirin (Derek Aspirin) 325 mg DAILY PO Last administered on 08/08/18 08:56; Start 08/07/18 at 09:00; Stop 08/08/18 at 15:05; Status DC Calcium/Vitamin D (Oscal D 500mg/ 200uts) 1 tab DAILY PO Last administered on 08:57; Start 08/07/18 at 09:00 Docusate Sodium (Colace) 100 mg BID PO Last administered on 08/10/18 20:50; Start 08/06/18 at 21:00 Ferrous Sulfate (Feosol) 325 mg DAILY PO Last administered on 08/08/18 08:56; Start 08/07/18 at 09:00 Acetaminophen/ Hydrocodone Bitart (Lortab 5/325) 1 tab PRN Q12HRS PRN PO MODERATE PAIN Last administered on 08/08/18 02:32; Start 08/06/18 at 18:15 Metoprolol Tartrate (Lopressor) 25 mg BID PO Last administered on 08/08/18 08: 57; Start 08/06/18 at 21:00; Stop 08/09/18 at 19:16; Status DC Nitroglycerin (Nitrostat) 0.4 mg PRN Q5MIN PRN SL CHEST PAIN; Start 08/06/18 at 18:15 Oxycodone/ Acetaminophen (Percocet 5/325) 1 tab PRN Q6HRS PRN PO SEVERE PAIN Last administered on 08/07/18 21:12; Start 08/06/18 at 18:15 Potassium Chloride (Klor-Con) 10 meq DAILY PO Last administered on 08/08/18 08: 56; Start 08/07/18 at 09:00 Acetaminophen (Tylenol) 500 mg PRN Q8HRS PRN PO MILD PAIN / TEMP Last administered on 08/07/18 14:07; Start 08/06/18 at 19:00; Stop 08/08/18 at 14:52; Status DC Bisacodyl (Dulcolax Supp) 10 mg PRN DAILY PRN [place] CONSTIPATION Last administered on 08/09/18 09:28; Start 08/06/18 at 19:00 Diltiazem HCl (Cardizem 24hr Cd) 180 mg DAILY PO Last administered on 08/08/18 08:56; Start 08/07/18 at 09:00; Stop 08/09/18 at 11:49; Status DC Citalopram Hydrobromide (CeleXA) 40 mg DAILY PO Last administered on 08/09/18 09:28; Start 08/07/18 at 09:00 Insulin Human Lispro (HumaLOG) 10 units TIDWMEALS SQ Last administered on 08:54; Start 08/06/18 at 19:30 Insulin Glargine (Lantus) 34 units DAILYWBKFT SQ Last administered on 08/11/18 08:57; Start 08/07/18 at 08:00 Losartan Potassium (Cozaar) 50 mg DAILY PO Last administered on 08/07/18 09:26 ; Start 08/07/18 at 09:00; Stop 08/08/18 at 07:30; Status DC Magnesium Hydroxide (Milk Of Magnesia) 2,400 mg PRN DAILY PRN PO CONSTIPATION, 1ST CHOICE; Start 08/06/18 at 19:00 Meclizine HCl (Antivert) 12.5 mg BID PO Last administered on 08/10/18 20:50; Start 08/06/18 at 21:00 Metolazone (Zaroxolyn) 5 mg DAILY PO Last administered on 08/07/18 09:23; Start 08/07/18 at 09:00; Stop 08/07/18 at 10:37; Status DC Multivitamins (Thera M Plus) 1 tab DAILY PO Last administered on 08/08/18 08:57 ; Start 08/07/18 at 09:00 Pantoprazole Sodium (Protonix) 40 mg DAILYAC PO Last administered on 08/09/18 09:28; Start 08/07/18 at 07:30 Polyethylene Glycol (miraLAX PACKET) 17 gm DAILY PO Last administered on 08:54; Start 08/07/18 at 09:00 Famotidine (Pepcid) 20 mg DAILY PO Last administered on 08/08/18 08:57; Start 08/07/18 at 09:00 Spironolactone (Aldactone) 25 mg DAILY PO Last administered on 08/07/18 09:27; Start 08/07/18 at 09:00; Stop 08/08/18 at 12:43; Status DC Warfarin Sodium (Coumadin) 5 mg DAILY16 PO ; Start 08/06/18 at 19:30; Stop at 20:46; Status DC Warfarin Sodium (Coumadin Per Physician) 1 each PRN DAILY PRN MC SEE COMMENTS; Start 08/06/18 at 19:00; Stop 08/06/18 at 20:46; Status DC Bumetanide (Bumex) 4 mg BID94 PO Last administered on 08/07/18at 09:23; Start 08/07/18 at 09:00; Stop 08/07/18 at 10:33; Status DC Isosorbide Mononitrate (Imdur) 60 mg DAILY PO Last administered on 08/07/18at 09: 27; Start 08/07/18 at 09:00; Stop 08/08/18 at 07:30; Status DC Non-Formulary Medication (Lidocaine (Aspercreme)) 1 each DAILY TP ; Start at 09:00; Status UNV Non-Formulary Medication (Omeprazole ) 40 mg DAILY PO ; Start 08/07/18 at 09:00; Status UNV Multi-Ingredient Ointment (Analgesic [place]) 1 marisol PRN TID PRN TP MUSCLE PAIN; Start 08/06/18 at 20:45; Stop 08/06/18 at 20:45; Status DC Mirtazapine (Remeron) 7.5 mg QHS PO Last administered on 08/10/18at 20:50; Start 08/06/18 at 21:00 Multi-Ingredient Ointment (Analgesic [place]) 1 marisol PRN TID PRN TP MUSCLE PAIN Last administered on 08/06/18at 22:17; Start 08/06/18 at 20:45 Apixaban (Eliquis) 5 mg BID PO Last administered on 08/08/18at 08:57; Start at 21:00; Stop 08/08/18 at 13:15; Status DC Info (Anti-Coagulation Monitoring By Pharmacy) 1 each PRN DAILY PRN MC SEE COMMENTS Last administered on 08/08/18at 13:22; Start 08/06/18 at 21:00 Acetaminophen (Tylenol) 650 mg PRN Q6HRS PRN PO TEMP > 100.4F; Start 08/07/18 at 09:00 Acetaminophen (Tylenol Supp) 650 mg PRN Q4HRS PRN [place] TEMP > 100.4F; Start at 09:00 Bumetanide (Bumex) 2 mg BID94 PO ; Start 08/07/18 at 16:00; Stop 08/08/18 at 12:43 ; Status DC Losartan Potassium (Cozaar) 50 mg NOON PO ; Start 08/08/18 at 12:00; Stop at 11:49; Status DC Naloxone HCl (Narcan) 0.4 mg 1X ONCE IV Last administered on 08/08/18at 10:47; Start 08/08/18 at 11:30; Stop 08/08/18 at 11:31; Status DC Atorvastatin Calcium (Lipitor) 40 mg QHS PO Last administered on 08/10/18at 20:50 ; Start 08/08/18 at 21:00 Levetiracetam 500 mg/Dextrose 105 ml @ 420 mls/hr Q12HR IV Last administered on 08/11/18at 08:58; Start 08/08/18 at 12:00 Apixaban (Eliquis) 2.5 mg BID PO ; Start 08/08/18 at 21:00; Stop 08/08/18 at 21:00 ; Status DC Enoxaparin Sodium (Lovenox 40mg Syringe) 40 mg Q24H SQ Last administered on 08/09at 18:37; Start 08/08/18 at 16:00; Stop 08/10/18 at 10:12; Status DC Metoprolol Tartrate (Lopressor Vial) 5 mg PRN Q6HRS PRN IVP HYPERTENSION, SEE COMMENTS; Start 08/08/18 at 15:45; Stop 08/08/18 at 17:09; Status DC Metoprolol Tartrate (Lopressor Vial) 5 mg Q6HRS IVP Last administered on at 05:37; Start 08/08/18 at 18:00 Dextrose (Dextrose 50%-Water Syringe) 25 gm STK-MED ONCE IV ; Start 08/08/18 at 17:25; Stop 08/08/18 at 17:26; Status DC Dextrose (Dextrose 50%-Water Syringe) 25 gm STK-MED ONCE IV ; Start 08/08/18 at 21:40; Stop 08/08/18 at 21:41; Status DC Dextrose (Dextrose 50%-Water Syringe) 12.5 gm PRN Q15MIN PRN IV SEE COMMENTS Last administered on 08/08/18at 21:45; Start 08/08/18 at 21:45 Dextrose (Dextrose 50%-Water Syringe) 25 gm STK-MED ONCE IV ; Start 08/08/18 at 18:00; Stop 08/09/18 at 08:52; Status DC Digoxin (Lanoxin) 250 mcg PRN DAILY PRN IV SEE COMMENTS; Start 08/09/18 at 12:00 Enoxaparin Sodium (Lovenox 30mg Syringe) 30 mg Q24H SQ Last administered on 08/10at 16:54; Start 08/10/18 at 16:00 Active Scripts Active Reported Doxycycline Hyclate 100 Mg Tablet 100 Mg PO BID Eliquis (Apixaban) 5 Mg Tablet 5 Mg PO BID Aspercreme 10% Cream (Trolamine Salicylate/Aloe Vera) 35.4 Gm Cream..g. 35.4 Gm TP TID PRN PRN Isosorbide Mononitrate Er (Isosorbide Mononitrate) 60 Mg Tab.er.24h 60 Mg PO DAILY Aspercreme (Lidocaine) 1 Each Adh..patch 1 Each TP DAILY Bumetanide 2 Mg Tablet 4 Mg PO BID Spironolactone 25 Mg Tablet 25 Mg PO DAILY Potassium Chloride 10 Meq Tablet.er 10 Meq PO DAILY Omeprazole 40 Mg Capsule.dr 40 Mg PO DAILY NITROGLYCERIN SubLingual (Nitroglycerin) 0.4 Mg Tab.subl 0.4 Mg SL PRN Q5MIN PRN Escitalopram Oxalate 20 Mg Tablet 1 Tab PO DAILY Diltiazem 24HR Cd (Diltiazem Hcl) 180 Mg Cap.er.24h 1 Cap PO DAILY Ascorbic Acid 500 Mg Tablet 500 Mg PO Multivitamins (Multivitamin) 1 Each Tablet 1 Tab PO DAILY Metolazone 5 Mg Tablet 5 Mg PO DAILY Novolog Flexpen (Insulin Aspart) 100 Unit/1 Ml Insuln.pen 10 Unit SQ TIDAC Tresiba Flextouch U-100 (Insulin Degludec) 100 Unit/1 Ml Insuln.pen 34 Unit SQ DAILYWBKFT Ferrous Sulfate 325 Mg Tablet 1 Tab PO DAILY Dulcolax (Bisacodyl) 10 Mg Supp.rect 10 Mg RC PRN DAILY PRN Aspirin 325 Mg Tablet 1 Tab PO DAILY Metoprolol Tartrate 25 Mg Tablet 25 Tab PO BID Acetaminophen 500 Mg Tablet 500 Mg PO PRN Q8HRS PRN Meclizine Hcl 12.5 Mg Tablet 1 Tab PO BID Hydrocodone-Apap 5-325 (Hydrocodone Bit/Acetaminophen) 1 Each Tablet 1 Tab PO Q12HR PRN Stool Softener (Docusate Sodium) 100 Mg Capsule 100 Mg PO BID Losartan Potassium 100 Mg Tablet 50 Mg PO DAILY Vitals/I & O Vital Sign - Last 24 Hours 08/10/18 08/10/18 08/10/18 08/10/18 10:00 11:00 12:00 12:00 Temp 98.9 98.9 Pulse 80 80 84 Resp 22 22 26 B/P (MAP) 137/62 (87) 132/67 (88) 139/72 (94) Pulse Ox 99 99 99 O2 Delivery Room Air Room Air Room Air O2 Flow Rate 21.0 08/10/18 08/10/18 08/10/18 08/10/18 12:00 13:00 14:00 15:00 Pulse 80 82 84 Resp 22 22 B/P (MAP) 132/67 (88) 144/71 (95) 142/67 (92) Pulse Ox 99 99 99 O2 Delivery Room Air Room Air Room Air Room Air 08/10/18 08/10/18 08/10/18 08/10/18 16:00 16:00 16:00 17:00 Pulse 81 77 Resp 22 B/P (MAP) 137/62 (87) 113/62 (79) Pulse Ox 99 99 O2 Delivery Room Air Room Air Room Air O2 Flow Rate 21.0 08/10/18 08/10/18 08/10/18 08/10/18 18:00 19:00 20:00 20:00 Pulse 89 87 Resp 22 24 B/P (MAP) 132/58 (82) 137/63 (87) Pulse Ox 99 99 O2 Delivery Room Air Room Air Room Air O2 Flow Rate 21.0 08/10/18 08/10/18 08/10/18 08/10/18 20:00 21:00 22:00 23:00 Temp 99.8 99.8 Pulse 90 84 95 91 Resp 24 21 15 12 B/P (MAP) 136/65 (88) 142/54 (83) 118/67 (84) 133/66 (88) Pulse Ox 96 97 99 99 O2 Delivery Room Air Room Air Room Air Room Air 08/10/18 08/10/18 08/11/18 08/11/18 23:50 23:50 00:00 00:16 Temp 99.6 99.6 Pulse 93 116 Resp 11 B/P (MAP) 117/58 (77) 125/60 Pulse Ox 100 O2 Delivery Room Air Room Air O2 Flow Rate 21.0 08/11/18 08/11/18 08/11/18 08/11/18 01:00 02:00 03:00 04:00 Pulse 85 93 74 Resp 20 26 28 B/P (MAP) 115/60 (78) 124/67 (86) 130/57 (81) Pulse Ox 95 93 97 O2 Delivery Room Air Room Air Room Air Room Air 08/11/18 08/11/18 08/11/18 08/11/18 04:00 04:00 05:00 05:37 Temp 99.9 99.9 Pulse 83 87 90 Resp 21 18 B/P (MAP) 141/67 (91) 123/50 (74) 116/57 Pulse Ox 96 95 O2 Delivery Room Air Room Air O2 Flow Rate 21.0 08/11/18 06:00 Pulse 81 Resp 20 B/P (MAP) 140/55 (83) Pulse Ox 98 O2 Delivery Room Air Intake and Output 08/10/18 08/10/18 08/11/18 14:59 22:59 06:59 Intake Total 0 ml 577 ml 724 ml Output Total 295 ml 395 ml 325 ml Balance -295 ml 182 ml 399 ml LIONEL OGLESBY MD Aug 11, 2018 09:50
--- NOTE | 2018-08-11 10:02 | PDOC ---
PROGRESS NOTES Chief Complaint Chief Complaint Acute CVA w/ dysarthria/confusion New rigth sided CVA with thalamus involvement. MRI showed Evidence of a new acute infarction in the region of the right thalamus, and possibly posterior right internal capsule and medial left thalamus. Left temporal infarction changes are again seen. There may be a new tiny focus of acute infarction in the anterior left temporal lobe. Elevated troponin 0.385low concern for cardiac etiology suspect CVA and renal insufficiency contributing Recent mechanical Fall: no significant traumatic injury Recent coumadin induced coagulopathy, transitioned to eliquis Cervical/lumbar stenosis with chronic L RTC tear Chronic A FIB CAD: past stents HTN HLP CKD3 Plan: EEG in the am supportive measures further recommendations based on clinical course. improving over the last 24 hours History of Present Illness History of Present Illness Patient more responsive today compared to yesterday. Hopefully will start waking up more,, EEG planned for the morning. 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 ) Skin: No breakdown, No significant lesion, Other ([place] indurated b/l lower extremities ) Labs LABS Laboratory Tests Test 08/10/18 13:01 08/10/18 16:58 08/10/18 20:59 08/11/18 04:30 Glucose (Fingerstick) 276 mg/dL (70-99) 209 mg/dL (70-99) 173 mg/dL (70-99) White Blood Count 13.0 x10^3/uL (4.0-11.0) Red Blood Count 3.73 x10^6/uL (3.50-5.40) Hemoglobin 12.0 g/dL (12.0-15.5) Hematocrit 36.6 % (36.0-47.0) Mean Corpuscular Volume 98 fL (79-100) Mean Corpuscular Hemoglobin 32 pg (25-35) Mean Corpuscular Hemoglobin Concent 33 g/dL (31-37) Red Cell Distribution Width 14.8 % (11.5-14.5) Platelet Count 250 x10^3/uL (140-400) Neutrophils (%) (Auto) 85 % (31-73) Lymphocytes (%) (Auto) 7 % (24-48) Monocytes (%) (Auto) 8 % (0-9) Eosinophils (%) (Auto) 1 % (0-3) Basophils (%) (Auto) 0 % (0-3) Neutrophils # (Auto) 11.0 x10^3uL (1.8-7.7) Lymphocytes # (Auto) 0.9 x10^3/uL (1.0-4.8) Monocytes # (Auto) 1.1 x10^3/uL (0.0-1.1) Eosinophils # (Auto) 0.1 x10^3/uL (0.0-0.7) Basophils # (Auto) 0.1 x10^3/uL (0.0-0.2) Segmented Neutrophils % 83 % (35-66) Lymphocytes % 11 % (24-48) Monocytes % 5 % (0-10) Eosinophils % 1 % (0-5) Platelet Estimate Adequate (ADEQUATE) Sodium Level 140 mmol/L (136-145) Potassium Level 4.6 mmol/L (3.5-5.1) Chloride Level 103 mmol/L (98-107) Carbon Dioxide Level 29 mmol/L (21-32) Anion Gap 8 (6-14) Blood Urea Nitrogen 45 mg/dL (7-20) Creatinine 1.6 mg/dL (0.6-1.0) Estimated GFR (Cockcroft-Gault) 30.9 Glucose Level 256 mg/dL (70-99) Calcium Level 9.6 mg/dL (8.5-10.1) Test 08/11/18 08:21 Glucose (Fingerstick) 239 mg/dL (70-99) Assessment and Plan Assessmemt and Plan Problems Medical Problems: (1) Change in mental status Status: Acute Comment Review of Relevant I have reviewed the following items alejandra (where applicable) has been applied. Labs Laboratory Tests Test 08/09/18 14:17 4/6/19 00:08 08/10/18 03:33 08/10/18 08:42 Glucose (Fingerstick) 122 mg/dL (70-99) 202 mg/dL (70-99) 304 mg/dL (70-99) White Blood Count 13.3 x10^3/uL (4.0-11.0) Red Blood Count 3.95 x10^6/uL (3.50-5.40) Hemoglobin 12.7 g/dL (12.0-15.5) Hematocrit 38.4 % (36.0-47.0) Mean Corpuscular Volume 97 fL (79-100) Mean Corpuscular Hemoglobin 32 pg (25-35) Mean Corpuscular Hemoglobin Concent 33 g/dL (31-37) Red Cell Distribution Width 14.7 % (11.5-14.5) Platelet Count 310 x10^3/uL (140-400) Neutrophils (%) (Auto) 84 % (31-73) Lymphocytes (%) (Auto) 8 % (24-48) Monocytes (%) (Auto) 7 % (0-9) Eosinophils (%) (Auto) 0 % (0-3) Basophils (%) (Auto) 0 % (0-3) Neutrophils # (Auto) 11.2 x10^3uL (1.8-7.7) Lymphocytes # (Auto) 1.1 x10^3/uL (1.0-4.8) Monocytes # (Auto) 0.9 x10^3/uL (0.0-1.1) Eosinophils # (Auto) 0.1 x10^3/uL (0.0-0.7) Basophils # (Auto) 0.0 x10^3/uL (0.0-0.2) Sodium Level 140 mmol/L (136-145) Potassium Level 4.7 mmol/L (3.5-5.1) Chloride Level 104 mmol/L (98-107) Carbon Dioxide Level 27 mmol/L (21-32) Anion Gap 9 (6-14) Blood Urea Nitrogen 47 mg/dL (7-20) Creatinine 1.8 mg/dL (0.6-1.0) Estimated GFR (Cockcroft-Gault) 26.9 Glucose Level 282 mg/dL (70-99) Calcium Level 9.5 mg/dL (8.5-10.1) Test 08/10/18 13:01 08/10/18 16:58 08/10/18 20:59 08/11/18 04:30 Glucose (Fingerstick) 276 mg/dL (70-99) 209 mg/dL (70-99) 173 mg/dL (70-99) White Blood Count 13.0 x10^3/uL (4.0-11.0) Red Blood Count 3.73 x10^6/uL (3.50-5.40) Hemoglobin 12.0 g/dL (12.0-15.5) Hematocrit 36.6 % (36.0-47.0) Mean Corpuscular Volume 98 fL (79-100) Mean Corpuscular Hemoglobin 32 pg (25-35) Mean Corpuscular Hemoglobin Concent 33 g/dL (31-37) Red Cell Distribution Width 14.8 % (11.5-14.5) Platelet Count 250 x10^3/uL (140-400) Neutrophils (%) (Auto) 85 % (31-73) Lymphocytes (%) (Auto) 7 % (24-48) Monocytes (%) (Auto) 8 % (0-9) Eosinophils (%) (Auto) 1 % (0-3) Basophils (%) (Auto) 0 % (0-3) Neutrophils # (Auto) 11.0 x10^3uL (1.8-7.7) Lymphocytes # (Auto) 0.9 x10^3/uL (1.0-4.8) Monocytes # (Auto) 1.1 x10^3/uL (0.0-1.1) Eosinophils # (Auto) 0.1 x10^3/uL (0.0-0.7) Basophils # (Auto) 0.1 x10^3/uL (0.0-0.2) Segmented Neutrophils % 83 % (35-66) Lymphocytes % 11 % (24-48) Monocytes % 5 % (0-10) Eosinophils % 1 % (0-5) Platelet Estimate Adequate (ADEQUATE) Sodium Level 140 mmol/L (136-145) Potassium Level 4.6 mmol/L (3.5-5.1) Chloride Level 103 mmol/L (98-107) Carbon Dioxide Level 29 mmol/L (21-32) Anion Gap 8 (6-14) Blood Urea Nitrogen 45 mg/dL (7-20) Creatinine 1.6 mg/dL (0.6-1.0) Estimated GFR (Cockcroft-Gault) 30.9 Glucose Level 256 mg/dL (70-99) Calcium Level 9.6 mg/dL (8.5-10.1) Test 08/11/18 08:21 Glucose (Fingerstick) 239 mg/dL (70-99) Laboratory Tests Test 08/10/18 13:01 08/10/18 16:58 08/10/18 20:59 08/11/18 04:30 Glucose (Fingerstick) 276 mg/dL (70-99) 209 mg/dL (70-99) 173 mg/dL (70-99) White Blood Count 13.0 x10^3/uL (4.0-11.0) Red Blood Count 3.73 x10^6/uL (3.50-5.40) Hemoglobin 12.0 g/dL (12.0-15.5) Hematocrit 36.6 % (36.0-47.0) Mean Corpuscular Volume 98 fL (79-100) Mean Corpuscular Hemoglobin 32 pg (25-35) Mean Corpuscular Hemoglobin Concent 33 g/dL (31-37) Red Cell Distribution Width 14.8 % (11.5-14.5) Platelet Count 250 x10^3/uL (140-400) Neutrophils (%) (Auto) 85 % (31-73) Lymphocytes (%) (Auto) 7 % (24-48) Monocytes (%) (Auto) 8 % (0-9) Eosinophils (%) (Auto) 1 % (0-3) Basophils (%) (Auto) 0 % (0-3) Neutrophils # (Auto) 11.0 x10^3uL (1.8-7.7) Lymphocytes # (Auto) 0.9 x10^3/uL (1.0-4.8) Monocytes # (Auto) 1.1 x10^3/uL (0.0-1.1) Eosinophils # (Auto) 0.1 x10^3/uL (0.0-0.7) Basophils # (Auto) 0.1 x10^3/uL (0.0-0.2) Segmented Neutrophils % 83 % (35-66) Lymphocytes % 11 % (24-48) Monocytes % 5 % (0-10) Eosinophils % 1 % (0-5) Platelet Estimate Adequate (ADEQUATE) Sodium Level 140 mmol/L (136-145) Potassium Level 4.6 mmol/L (3.5-5.1) Chloride Level 103 mmol/L (98-107) Carbon Dioxide Level 29 mmol/L (21-32) Anion Gap 8 (6-14) Blood Urea Nitrogen 45 mg/dL (7-20) Creatinine 1.6 mg/dL (0.6-1.0) Estimated GFR (Cockcroft-Gault) 30.9 Glucose Level 256 mg/dL (70-99) Calcium Level 9.6 mg/dL (8.5-10.1) Test 08/11/18 08:21 Glucose (Fingerstick) 239 mg/dL (70-99) Microbiology 08/06/18 Blood Culture - Preliminary, Resulted NO GROWTH AFTER 4 DAYS Medications Current Medications Sodium Chloride 500 ml @ 500 mls/hr 1X ONCE IV Last administered on 08/06/18at 16:21; Start 08/06/18 at 16:00; Stop 08/06/18 at 16:59; Status DC Ondansetron HCl (Zofran) 4 mg PRN Q6HRS PRN IV NAUSEA/VOMITING; Start 08/06/18 at 18:15 Morphine Sulfate (Morphine Sulfate) 1 mg PRN Q1HR PRN IV PAIN; Start 08/06/18 at 18:15 Lactulose (Lactulose) 20 gm PRN Q12HR PRN PO CONSTIPATION, 2ND CHOICE; Start at 18:15 Heparin Sodium (Porcine) (Heparin Sodium) 5,000 unit Q12HR SQ ; Start 08/06/18 at 21:00; Stop 08/06/18 at 21:00; Status DC Ascorbic Acid (Vitamin C) 500 mg DAILY PO Last administered on 08/08/18at 08:57; Start 08/07/18 at 09:00 Aspirin (Derek Aspirin) 325 mg DAILY PO Last administered on 08/08/18at 08:56; Start 08/07/18 at 09:00; Stop 08/08/18 at 15:05; Status DC Calcium/Vitamin D (Oscal D 500mg/ 200uts) 1 tab DAILY PO Last administered on 08:57; Start 08/07/18 at 09:00 Docusate Sodium (Colace) 100 mg BID PO Last administered on 08/10/18 20:50; Start 08/06/18 at 21:00 Ferrous Sulfate (Feosol) 325 mg DAILY PO Last administered on 08/08/18 08:56; Start 08/07/18 at 09:00 Acetaminophen/ Hydrocodone Bitart (Lortab 5/325) 1 tab PRN Q12HRS PRN PO MODERATE PAIN Last administered on 08/08/18 02:32; Start 08/06/18 at 18:15 Metoprolol Tartrate (Lopressor) 25 mg BID PO Last administered on 08/08/18 08: 57; Start 08/06/18 at 21:00; Stop 08/09/18 at 19:16; Status DC Nitroglycerin (Nitrostat) 0.4 mg PRN Q5MIN PRN SL CHEST PAIN; Start 08/06/18 at 18:15 Oxycodone/ Acetaminophen (Percocet 5/325) 1 tab PRN Q6HRS PRN PO SEVERE PAIN Last administered on 08/07/18 21:12; Start 08/06/18 at 18:15 Potassium Chloride (Klor-Con) 10 meq DAILY PO Last administered on 08/08/18 08: 56; Start 08/07/18 at 09:00 Acetaminophen (Tylenol) 500 mg PRN Q8HRS PRN PO MILD PAIN / TEMP Last administered on 08/07/18 14:07; Start 08/06/18 at 19:00; Stop 08/08/18 at 14:52; Status DC Bisacodyl (Dulcolax Supp) 10 mg PRN DAILY PRN LA CONSTIPATION Last administered on 08/09/18 09:28; Start 08/06/18 at 19:00 Diltiazem HCl (Cardizem 24hr Cd) 180 mg DAILY PO Last administered on 08/08/18 08:56; Start 08/07/18 at 09:00; Stop 08/09/18 at 11:49; Status DC Citalopram Hydrobromide (CeleXA) 40 mg DAILY PO Last administered on 08/09/18 09:28; Start 08/07/18 at 09:00 Insulin Human Lispro (HumaLOG) 10 units TIDWMEALS SQ Last administered on 08:54; Start 08/06/18 at 19:30 Insulin Glargine (Lantus) 34 units DAILYWBKFT SQ Last administered on 08/11/18 08:57; Start 08/07/18 at 08:00 Losartan Potassium (Cozaar) 50 mg DAILY PO Last administered on 08/07/18 09:26 ; Start 08/07/18 at 09:00; Stop 08/08/18 at 07:30; Status DC Magnesium Hydroxide (Milk Of Magnesia) 2,400 mg PRN DAILY PRN PO CONSTIPATION, 1ST CHOICE; Start 08/06/18 at 19:00 Meclizine HCl (Antivert) 12.5 mg BID PO Last administered on 08/10/18 20:50; Start 08/06/18 at 21:00 Metolazone (Zaroxolyn) 5 mg DAILY PO Last administered on 08/07/18 09:23; Start 08/07/18 at 09:00; Stop 08/07/18 at 10:37; Status DC Multivitamins (Thera M Plus) 1 tab DAILY PO Last administered on 08/08/18 08:57 ; Start 08/07/18 at 09:00 Pantoprazole Sodium (Protonix) 40 mg DAILYAC PO Last administered on 08/09/18 09:28; Start 08/07/18 at 07:30 Polyethylene Glycol (miraLAX PACKET) 17 gm DAILY PO Last administered on 08:54; Start 08/07/18 at 09:00 Famotidine (Pepcid) 20 mg DAILY PO Last administered on 08/08/18 08:57; Start 08/07/18 at 09:00 Spironolactone (Aldactone) 25 mg DAILY PO Last administered on 08/07/18 09:27; Start 08/07/18 at 09:00; Stop 08/08/18 at 12:43; Status DC Warfarin Sodium (Coumadin) 5 mg DAILY16 PO ; Start 08/06/18 at 19:30; Stop at 20:46; Status DC Warfarin Sodium (Coumadin Per Physician) 1 each PRN DAILY PRN MC SEE COMMENTS; Start 08/06/18 at 19:00; Stop 08/06/18 at 20:46; Status DC Bumetanide (Bumex) 4 mg BID94 PO Last administered on 08/07/18at 09:23; Start 08/07/18 at 09:00; Stop 08/07/18 at 10:33; Status DC Isosorbide Mononitrate (Imdur) 60 mg DAILY PO Last administered on 08/07/18at 09: 27; Start 08/07/18 at 09:00; Stop 08/08/18 at 07:30; Status DC Non-Formulary Medication (Lidocaine (Aspercreme)) 1 each DAILY TP ; Start at 09:00; Status UNV Non-Formulary Medication (Omeprazole ) 40 mg DAILY PO ; Start 08/07/18 at 09:00; Status UNV Multi-Ingredient Ointment (Analgesic [place]) 1 marisol PRN TID PRN TP MUSCLE PAIN; Start 08/06/18 at 20:45; Stop 08/06/18 at 20:45; Status DC Mirtazapine (Remeron) 7.5 mg QHS PO Last administered on 08/10/18at 20:50; Start 08/06/18 at 21:00 Multi-Ingredient Ointment (Analgesic [place]) 1 marisol PRN TID PRN TP MUSCLE PAIN Last administered on 08/06/18at 22:17; Start 08/06/18 at 20:45 Apixaban (Eliquis) 5 mg BID PO Last administered on 08/08/18at 08:57; Start at 21:00; Stop 08/08/18 at 13:15; Status DC Info (Anti-Coagulation Monitoring By Pharmacy) 1 each PRN DAILY PRN MC SEE COMMENTS Last administered on 08/08/18at 13:22; Start 08/06/18 at 21:00 Acetaminophen (Tylenol) 650 mg PRN Q6HRS PRN PO TEMP > 100.4F; Start 08/07/18 at 09:00 Acetaminophen (Tylenol Supp) 650 mg PRN Q4HRS PRN LA TEMP > 100.4F; Start at 09:00 Bumetanide (Bumex) 2 mg BID94 PO ; Start 08/07/18 at 16:00; Stop 08/08/18 at 12:43 ; Status DC Losartan Potassium (Cozaar) 50 mg NOON PO ; Start 08/08/18 at 12:00; Stop at 11:49; Status DC Naloxone HCl (Narcan) 0.4 mg 1X ONCE IV Last administered on 08/08/18at 10:47; Start 08/08/18 at 11:30; Stop 08/08/18 at 11:31; Status DC Atorvastatin Calcium (Lipitor) 40 mg QHS PO Last administered on 08/10/18at 20:50 ; Start 08/08/18 at 21:00 Levetiracetam 500 mg/Dextrose 105 ml @ 420 mls/hr Q12HR IV Last administered on 08/11/18at 08:58; Start 08/08/18 at 12:00 Apixaban (Eliquis) 2.5 mg BID PO ; Start 08/08/18 at 21:00; Stop 08/08/18 at 21:00 ; Status DC Enoxaparin Sodium (Lovenox 40mg Syringe) 40 mg Q24H SQ Last administered on 08/09at 18:37; Start 08/08/18 at 16:00; Stop 08/10/18 at 10:12; Status DC Metoprolol Tartrate (Lopressor Vial) 5 mg PRN Q6HRS PRN IVP HYPERTENSION, SEE COMMENTS; Start 08/08/18 at 15:45; Stop 08/08/18 at 17:09; Status DC Metoprolol Tartrate (Lopressor Vial) 5 mg Q6HRS IVP Last administered on at 05:37; Start 08/08/18 at 18:00 Dextrose (Dextrose 50%-Water Syringe) 25 gm STK-MED ONCE IV ; Start 08/08/18 at 17:25; Stop 08/08/18 at 17:26; Status DC Dextrose (Dextrose 50%-Water Syringe) 25 gm STK-MED ONCE IV ; Start 08/08/18 at 21:40; Stop 08/08/18 at 21:41; Status DC Dextrose (Dextrose 50%-Water Syringe) 12.5 gm PRN Q15MIN PRN IV SEE COMMENTS Last administered on 08/08/18at 21:45; Start 08/08/18 at 21:45 Dextrose (Dextrose 50%-Water Syringe) 25 gm STK-MED ONCE IV ; Start 08/08/18 at 18:00; Stop 08/09/18 at 08:52; Status DC Digoxin (Lanoxin) 250 mcg PRN DAILY PRN IV SEE COMMENTS; Start 08/09/18 at 12:00 Enoxaparin Sodium (Lovenox 30mg Syringe) 30 mg Q24H SQ Last administered on 08/10at 16:54; Start 08/10/18 at 16:00 Active Scripts Active Reported Doxycycline Hyclate 100 Mg Tablet 100 Mg PO BID Eliquis (Apixaban) 5 Mg Tablet 5 Mg PO BID Aspercreme 10% Cream (Trolamine Salicylate/Aloe Vera) 35.4 Gm Cream..g. 35.4 Gm TP TID PRN PRN Isosorbide Mononitrate Er (Isosorbide Mononitrate) 60 Mg Tab.er.24h 60 Mg PO DAILY Aspercreme (Lidocaine) 1 Each Adh..patch 1 Each TP DAILY Bumetanide 2 Mg Tablet 4 Mg PO BID Spironolactone 25 Mg Tablet 25 Mg PO DAILY Potassium Chloride 10 Meq Tablet.er 10 Meq PO DAILY Omeprazole 40 Mg Capsule.dr 40 Mg PO DAILY NITROGLYCERIN SubLingual (Nitroglycerin) 0.4 Mg Tab.subl 0.4 Mg SL PRN Q5MIN PRN Escitalopram Oxalate 20 Mg Tablet 1 Tab PO DAILY Diltiazem 24HR Cd (Diltiazem Hcl) 180 Mg Cap.er.24h 1 Cap PO DAILY Ascorbic Acid 500 Mg Tablet 500 Mg PO Multivitamins (Multivitamin) 1 Each Tablet 1 Tab PO DAILY Metolazone 5 Mg Tablet 5 Mg PO DAILY Novolog Flexpen (Insulin Aspart) 100 Unit/1 Ml Insuln.pen 10 Unit SQ TIDAC Tresiba Flextouch U-100 (Insulin Degludec) 100 Unit/1 Ml Insuln.pen 34 Unit SQ DAILYWBKFT Ferrous Sulfate 325 Mg Tablet 1 Tab PO DAILY Dulcolax (Bisacodyl) 10 Mg Supp.rect 10 Mg RC PRN DAILY PRN Aspirin 325 Mg Tablet 1 Tab PO DAILY Metoprolol Tartrate 25 Mg Tablet 25 Tab PO BID Acetaminophen 500 Mg Tablet 500 Mg PO PRN Q8HRS PRN Meclizine Hcl 12.5 Mg Tablet 1 Tab PO BID Hydrocodone-Apap 5-325 (Hydrocodone Bit/Acetaminophen) 1 Each Tablet 1 Tab PO Q12HR PRN Stool Softener (Docusate Sodium) 100 Mg Capsule 100 Mg PO BID Losartan Potassium 100 Mg Tablet 50 Mg PO DAILY Vitals/I & O Vital Sign - Last 24 Hours 08/10/18 08/10/18 08/10/18 08/10/18 10:00 11:00 12:00 12:00 Temp 98.9 98.9 Pulse 80 80 84 Resp 26 B/P (MAP) 137/62 (87) 132/67 (88) 139/72 (94) Pulse Ox 99 99 99 O2 Delivery Room Air Room Air Room Air O2 Flow Rate 21.0 08/10/18 08/10/18 08/10/18 08/10/18 12:00 13:00 14:00 15:00 Pulse 80 82 84 Resp B/P (MAP) 132/67 (88) 144/71 (95) 142/67 (92) Pulse Ox 99 99 99 O2 Delivery Room Air Room Air Room Air Room Air 08/10/18 08/10/18 08/10/18 08/10/18 16:00 16:00 16:00 17:00 Pulse 81 77 Resp B/P (MAP) 137/62 (87) 113/62 (79) Pulse Ox 99 99 O2 Delivery Room Air Room Air Room Air O2 Flow Rate 21.0 08/10/18 08/10/18 08/10/18 08/10/18 18:00 19:00 20:00 20:00 Pulse 89 87 Resp B/P (MAP) 132/58 (82) 137/63 (87) Pulse Ox 99 99 O2 Delivery Room Air Room Air Room Air O2 Flow Rate 21.0 08/10/18 08/10/18 08/10/18 08/10/18 20:00 21:00 22:00 23:00 Temp 99.8 99.8 Pulse 90 84 95 91 Resp 24 21 15 12 B/P (MAP) 136/65 (88) 142/54 (83) 118/67 (84) 133/66 (88) Pulse Ox 96 97 99 99 O2 Delivery Room Air Room Air Room Air Room Air 08/10/18 08/10/18 08/11/187/19 23:50 23:50 00:00 00:16 Temp 99.6 99.6 Pulse 93 116 Resp 11 B/P (MAP) 117/58 (77) 125/60 Pulse Ox 100 O2 Delivery Room Air Room Air O2 Flow Rate 21.0 08/11/18 08/11/18 08/11/18 08/11/18 01:00 02:00 03:00 04:00 Pulse 85 93 74 Resp 20 26 28 B/P (MAP) 115/60 (78) 124/67 (86) 130/57 (81) Pulse Ox 95 93 97 O2 Delivery Room Air Room Air Room Air Room Air 08/11/18 08/11/18 08/11/18 08/11/18 04:00 04:00 05:00 05:37 Temp 99.9 99.9 Pulse 83 87 90 Resp 21 18 B/P (MAP) 141/67 (91) 123/50 (74) 116/57 Pulse Ox 96 95 O2 Delivery Room Air Room Air O2 Flow Rate 21.0 08/11/18 06:00 Pulse 81 Resp 20 B/P (MAP) 140/55 (83) Pulse Ox 98 O2 Delivery Room Air Intake and Output 08/10/18 08/10/18 08/11/18 15:00 23:00 07:00 Intake Total 0 ml 577 ml 724 ml Output Total 355 ml 370 ml 290 ml Balance -355 ml 207 ml 434 ml WILLY VINCENT MD Aug 11, 2018 10:02
--- NOTE | 2018-08-11 15:12 | PDOC ---
PULMONARY PROGRESS NOTES Subjective no response, off bipap Vitals Vital Signs Date Time Temp Pulse Resp B/P (MAP) Pulse Ox O2 Delivery O2 Flow Rate FiO2 08/11/18 14:00 89 20 148/72 (97) 98 Room Air 08/11/18 13:00 98.9 98.9 08/11/18 12:00 21.0 HEENT: Other (nc at perrl ) Lungs: Crackles Cardiovascular: S1, S2 Abdomen: Soft, Non-tender Extremities: No Edema Skin: Warm Labs Laboratory Tests Test 08/10/18 00:08 08/10/18 03:33 08/10/18 08:42 08/10/18 13:01 Glucose (Fingerstick) 202 mg/dL (70-99) 304 mg/dL (70-99) 276 mg/dL (70-99) White Blood Count 13.3 x10^3/uL (4.0-11.0) Red Blood Count 3.95 x10^6/uL (3.50-5.40) Hemoglobin 12.7 g/dL (12.0-15.5) Hematocrit 38.4 % (36.0-47.0) Mean Corpuscular Volume 97 fL (79-100) Mean Corpuscular Hemoglobin 32 pg (25-35) Mean Corpuscular Hemoglobin Concent 33 g/dL (31-37) Red Cell Distribution Width 14.7 % (11.5-14.5) Platelet Count 310 x10^3/uL (140-400) Neutrophils (%) (Auto) 84 % (31-73) Lymphocytes (%) (Auto) 8 % (24-48) Monocytes (%) (Auto) 7 % (0-9) Eosinophils (%) (Auto) 0 % (0-3) Basophils (%) (Auto) 0 % (0-3) Neutrophils # (Auto) 11.2 x10^3uL (1.8-7.7) Lymphocytes # (Auto) 1.1 x10^3/uL (1.0-4.8) Monocytes # (Auto) 0.9 x10^3/uL (0.0-1.1) Eosinophils # (Auto) 0.1 x10^3/uL (0.0-0.7) Basophils # (Auto) 0.0 x10^3/uL (0.0-0.2) Sodium Level 140 mmol/L (136-145) Potassium Level 4.7 mmol/L (3.5-5.1) Chloride Level 104 mmol/L (98-107) Carbon Dioxide Level 27 mmol/L (21-32) Anion Gap 9 (6-14) Blood Urea Nitrogen 47 mg/dL (7-20) Creatinine 1.8 mg/dL (0.6-1.0) Estimated GFR (Cockcroft-Gault) 26.9 Glucose Level 282 mg/dL (70-99) Calcium Level 9.5 mg/dL (8.5-10.1) Test 08/10/18 16:58 08/10/18 20:59 08/11/18 04:30 08/11/18 08:21 Glucose (Fingerstick) 209 mg/dL (70-99) 173 mg/dL (70-99) 239 mg/dL (70-99) White Blood Count 13.0 x10^3/uL (4.0-11.0) Red Blood Count 3.73 x10^6/uL (3.50-5.40) Hemoglobin 12.0 g/dL (12.0-15.5) Hematocrit 36.6 % (36.0-47.0) Mean Corpuscular Volume 98 fL (79-100) Mean Corpuscular Hemoglobin 32 pg (25-35) Mean Corpuscular Hemoglobin Concent 33 g/dL (31-37) Red Cell Distribution Width 14.8 % (11.5-14.5) Platelet Count 250 x10^3/uL (140-400) Neutrophils (%) (Auto) 85 % (31-73) Lymphocytes (%) (Auto) 7 % (24-48) Monocytes (%) (Auto) 8 % (0-9) Eosinophils (%) (Auto) 1 % (0-3) Basophils (%) (Auto) 0 % (0-3) Neutrophils # (Auto) 11.0 x10^3uL (1.8-7.7) Lymphocytes # (Auto) 0.9 x10^3/uL (1.0-4.8) Monocytes # (Auto) 1.1 x10^3/uL (0.0-1.1) Eosinophils # (Auto) 0.1 x10^3/uL (0.0-0.7) Basophils # (Auto) 0.1 x10^3/uL (0.0-0.2) Segmented Neutrophils % 83 % (35-66) Lymphocytes % 11 % (24-48) Monocytes % 5 % (0-10) Eosinophils % 1 % (0-5) Platelet Estimate Adequate (ADEQUATE) Sodium Level 140 mmol/L (136-145) Potassium Level 4.6 mmol/L (3.5-5.1) Chloride Level 103 mmol/L (98-107) Carbon Dioxide Level 29 mmol/L (21-32) Anion Gap 8 (6-14) Blood Urea Nitrogen 45 mg/dL (7-20) Creatinine 1.6 mg/dL (0.6-1.0) Estimated GFR (Cockcroft-Gault) 30.9 Glucose Level 256 mg/dL (70-99) Calcium Level 9.6 mg/dL (8.5-10.1) Test 08/11/18 13:37 Glucose (Fingerstick) 245 mg/dL (70-99) Laboratory Tests Test 08/10/18 16:58 08/10/18 20:59 08/11/18 04:30 08/11/18 08:21 Glucose (Fingerstick) 209 mg/dL (70-99) 173 mg/dL (70-99) 239 mg/dL (70-99) White Blood Count 13.0 x10^3/uL (4.0-11.0) Red Blood Count 3.73 x10^6/uL (3.50-5.40) Hemoglobin 12.0 g/dL (12.0-15.5) Hematocrit 36.6 % (36.0-47.0) Mean Corpuscular Volume 98 fL (79-100) Mean Corpuscular Hemoglobin 32 pg (25-35) Mean Corpuscular Hemoglobin Concent 33 g/dL (31-37) Red Cell Distribution Width 14.8 % (11.5-14.5) Platelet Count 250 x10^3/uL (140-400) Neutrophils (%) (Auto) 85 % (31-73) Lymphocytes (%) (Auto) 7 % (24-48) Monocytes (%) (Auto) 8 % (0-9) Eosinophils (%) (Auto) 1 % (0-3) Basophils (%) (Auto) 0 % (0-3) Neutrophils # (Auto) 11.0 x10^3uL (1.8-7.7) Lymphocytes # (Auto) 0.9 x10^3/uL (1.0-4.8) Monocytes # (Auto) 1.1 x10^3/uL (0.0-1.1) Eosinophils # (Auto) 0.1 x10^3/uL (0.0-0.7) Basophils # (Auto) 0.1 x10^3/uL (0.0-0.2) Segmented Neutrophils % 83 % (35-66) Lymphocytes % 11 % (24-48) Monocytes % 5 % (0-10) Eosinophils % 1 % (0-5) Platelet Estimate Adequate (ADEQUATE) Sodium Level 140 mmol/L (136-145) Potassium Level 4.6 mmol/L (3.5-5.1) Chloride Level 103 mmol/L (98-107) Carbon Dioxide Level 29 mmol/L (21-32) Anion Gap 8 (6-14) Blood Urea Nitrogen 45 mg/dL (7-20) Creatinine 1.6 mg/dL (0.6-1.0) Estimated GFR (Cockcroft-Gault) 30.9 Glucose Level 256 mg/dL (70-99) Calcium Level 9.6 mg/dL (8.5-10.1) Test 08/11/18 13:37 Glucose (Fingerstick) 245 mg/dL (70-99) Medications Active Scripts Medications Dose Route/Sig Max Daily Dose Days Date Category Doxycycline Hyclate 100 Mg Tablet 100 Mg PO BID 08/07/18 Reported Eliquis (Apixaban) 5 Mg Tablet 5 Mg PO BID 08/06/18 Reported Aspercreme 10% Cream (Trolamine Salicylate/Aloe Vera) 35.4 Gm Cream..g. 35.4 Gm TP TID PRN PRN 08/06/18 Reported Isosorbide Mononitrate Er (Isosorbide Mononitrate) 60 Mg Tab.er.24h 60 Mg PO DAILY 08/06/18 Reported Aspercreme (Lidocaine) 1 Each Adh..patch 1 Each TP DAILY 08/06/18 Reported Bumetanide 2 Mg Tablet 4 Mg PO BID 08/06/18 Reported Spironolactone 25 Mg Tablet 25 Mg PO DAILY 02/24/18 Reported Potassium Chloride 10 Meq Tablet.er 10 Meq PO DAILY 02/24/18 Reported Omeprazole 40 Mg Capsule.dr 40 Mg PO DAILY 02/24/18 Reported NITROGLYCERIN SubLingual (Nitroglycerin) 0.4 Mg Tab.subl 0.4 Mg SL PRN Q5MIN PRN 09/19/17 Reported Escitalopram Oxalate 20 Mg Tablet 1 Tab PO DAILY 09/19/17 Reported Diltiazem 24HR Cd (Diltiazem Hcl) 180 Mg Cap.er.24h 1 Cap PO DAILY 09/19/17 Reported Ascorbic Acid 500 Mg Tablet 500 Mg PO 06/29/17 Reported Multivitamins (Multivitamin) 1 Each Tablet 1 Tab PO DAILY 06/29/17 Reported Metolazone 5 Mg Tablet 5 Mg PO DAILY 05/15/17 Reported Novolog Flexpen (Insulin Aspart) 100 Unit/1 Ml Insuln.pen 10 Unit SQ TIDAC 05/15/17 Reported Tresiba Flextouch U-100 (Insulin Degludec) 100 Unit/1 Ml Insuln.pen 34 Unit SQ [id number] 03/12/17 Reported Ferrous Sulfate 325 Mg Tablet 1 Tab PO DAILY 01/04/17 Reported Dulcolax (Bisacodyl) 10 Mg Supp.rect 10 Mg RC PRN DAILY PRN 01/04/17 Reported Aspirin 325 Mg Tablet 1 Tab PO DAILY 12/28/16 Reported Metoprolol Tartrate 25 Mg Tablet 25 Tab PO BID 03/24/16 Reported Acetaminophen 500 Mg Tablet 500 Mg PO PRN Q8HRS PRN 02/16/16 Reported Meclizine Hcl 12.5 Mg Tablet 1 Tab PO BID 01/17/16 Reported Hydrocodone-Apap 5-325 (Hydrocodone Bit/Acetaminophen) 1 Each Tablet 1 Tab PO Q12HR PRN 01/17/16 Reported Stool Softener (Docusate Sodium) 100 Mg Capsule 100 Mg PO BID 05/10/13 Reported Losartan Potassium 100 Mg Tablet 50 Mg PO DAILY 05/10/13 Reported Comments MRI IMPRESSION: 1. Evidence of a new acute infarction in the region of the right thalamus, and possibly posterior right internal capsule and medial left thalamus. 2. Left temporal infarction changes are again seen. There may be a new tiny focus of acute infarction in the anterior left temporal lobe. 3. Otherwise, severe motion degradation limits the usefulness of this exam. Impression . 1. Acute metabolic encephalopathy due to new acute infarction in the region of the right thalamus, and possibly posterior right internal capsule and medial left thalamus. ABGs showed no evidence of any hypercapnia. 2. Acute stroke with extension. 3. Johnny-Silva breathing pattern related to her stroke. Ejection fraction was normal. 3. No significant history of tobacco use. 4. Chest x-ray slightly abnormal on admission with mildly prominent interstitial markings, could be mild neurogenic edema. Plan . 1. BiPAP prn during day, cont at night, setting reviewed. 2. DNR and DNI. 3. May consider hospice 4. Avoid any narcotics. 6. palliative care consulted, poor prognosis discussed w ADRIAN Clark MD Aug 11, 2018 15:12
[2018-08-11] MEDS: ENOXAPARIN 30 MG/0.3 ML SYRINGE. SQ SCH (16:34)
[2018-08-11] MEDS: ATORVASTATIN CALCIUM 40 MG TABLET. PO SCH (21:35)
[2018-08-11] MEDS: MIRTAZAPINE 7.5 MG TABLET. PO SCH (21:35)
[2018-08-12] VITALS (22 sets, daily range): BP systolic 100–179; BP diastolic 54–89
[2018-08-12] MEDS: METOPROLOL TARTRATE 5 MG/5 ML VIAL. IVP SCH ×4 (00:21→17:29)
[2018-08-12 06:12] LABS: BASO % 0 % (0-3); EOS # 0.1 x10^3/uL (0.0-0.7); EOS % 1 % (0-3); HEMATOCRIT 34.2 % (36.0-47.0); HEMOGLOBIN 11.5 g/dL (12.0-15.5); LYMPH # 1.1 x10^3/uL (1.0-4.8); LYMPH % 9 % (24-48); MEAN CORPUSCULAR HEMOGLOBIN 33 pg (25-35); MEAN CORPUSCULAR HGB CONC 34 g/dL (31-37); MEAN CORPUSCULAR VOLUME 97 fL (79-100); MONO # 0.7 x10^3/uL (0.0-1.1); MONO % 6 % (0-9); NEUT # 9.8 x10^3uL (1.8-7.7); NEUT % 83 % (31-73); PLATELET COUNT 244 x10^3/uL (140-400); RED BLOOD COUNT 3.52 x10^6/uL (3.50-5.40); RED CELL DISTRIBUTION WIDTH 14.8 % (11.5-14.5); WHITE BLOOD COUNT 11.8 x10^3/uL (4.0-11.0)
[2018-08-12 06:37] LABS: CALCIUM 9.7 mg/dL (8.5-10.1); GFR 23.9; POTASSIUM 4.9 mmol/L (3.5-5.1)
[2018-08-12] MEDS: PANTOPRAZOLE 40 MG TABLET.DR. PO SCH (07:26)
[2018-08-12] MEDS: FERROUS SULFATE 325 MG TABLET. PO SCH (07:27)
[2018-08-12] MEDS: CALCIUM CARB/VIT D3 500/200 TABLET. PO SCH (07:27)
[2018-08-12] MEDS: POTASSIUM CHLORIDE 10 MEQ TABLET.ER. PO SCH (07:27)
[2018-08-12] MEDS: CITALOPRAM 20 MG TABLET. PO SCH (07:27)
[2018-08-12] MEDS: MECLIZINE HCL 12.5 MG TABLET. PO SCH ×2 (07:27→21:25)
[2018-08-12] MEDS: DOCUSATE SODIUM 100 MG CAPSULE. PO SCH (07:27)
[2018-08-12] MEDS: POLYETHYLENE GLYCOL 3350 17 GM PACKET. PO SCH (07:27)
[2018-08-12] MEDS: MULTIVITAMIN with MINERAL TABLET. PO SCH (07:28)
[2018-08-12] MEDS: FAMOTIDINE 20 MG TABLET. PO SCH (07:28)
[2018-08-12] MEDS: ASCORBIC ACID 500 MG TABLET PO SCH (07:28)
[2018-08-12] MEDS: levETIRAcetam 500 MG in IV DEXTROSE 5% 100ML 100 ML IV SCH ×2 (08:57→21:24)
[2018-08-12] MEDS: INSULIN GLARGINE 300 UNITS/3 ML INSULN.PEN. SQ SCH (08:59)
[2018-08-12] MEDS: INSULIN LISPRO 300 UNITS/3 ML INSULN.PEN. SQ SCH ×3 (08:59→17:21)
--- NOTE | 2018-08-12 10:43 | PDOC2 ---
PALLIATIVE CARE Palliative Care Note Palliative Care Patient more alert today. Opens eyes to command. Squeezes with left hand to command Daughter at bedside. EEG done --waiting for results. OSIEL FERRO Aug 12, 2018 10:43
[2018-08-12] MEDS: BUMETANIDE 1 MG/4 ML VIAL. IV SCH ×2 (10:45→16:17)
--- NOTE | 2018-08-12 11:46 | PDOC ---
PULMONARY PROGRESS NOTES Subjective no response, off bipap RN c/o chest congestion Vitals Vital Signs Date Time Temp Pulse Resp B/P (MAP) Pulse Ox O2 Delivery O2 Flow Rate FiO2 08/12/18 11:00 79 22 148/69 (95) 99 Room Air 08/12/18 08:00 21.0 08/12/18 07:00 98.3 98.3 HEENT: Other (nc at perrl ) Lungs: Other (few rhonchi) Cardiovascular: S1, S2 Abdomen: Soft, Non-tender Extremities: No Edema Skin: Warm Labs Laboratory Tests Test 08/10/18 13:01 08/10/18 16:58 08/10/18 20:59 08/11/18 04:30 Glucose (Fingerstick) 276 mg/dL (70-99) 209 mg/dL (70-99) 173 mg/dL (70-99) White Blood Count 13.0 x10^3/uL (4.0-11.0) Red Blood Count 3.73 x10^6/uL (3.50-5.40) Hemoglobin 12.0 g/dL (12.0-15.5) Hematocrit 36.6 % (36.0-47.0) Mean Corpuscular Volume 98 fL (79-100) Mean Corpuscular Hemoglobin 32 pg (25-35) Mean Corpuscular Hemoglobin Concent 33 g/dL (31-37) Red Cell Distribution Width 14.8 % (11.5-14.5) Platelet Count 250 x10^3/uL (140-400) Neutrophils (%) (Auto) 85 % (31-73) Lymphocytes (%) (Auto) 7 % (24-48) Monocytes (%) (Auto) 8 % (0-9) Eosinophils (%) (Auto) 1 % (0-3) Basophils (%) (Auto) 0 % (0-3) Neutrophils # (Auto) 11.0 x10^3uL (1.8-7.7) Lymphocytes # (Auto) 0.9 x10^3/uL (1.0-4.8) Monocytes # (Auto) 1.1 x10^3/uL (0.0-1.1) Eosinophils # (Auto) 0.1 x10^3/uL (0.0-0.7) Basophils # (Auto) 0.1 x10^3/uL (0.0-0.2) Segmented Neutrophils % 83 % (35-66) Lymphocytes % 11 % (24-48) Monocytes % 5 % (0-10) Eosinophils % 1 % (0-5) Platelet Estimate Adequate (ADEQUATE) Sodium Level 140 mmol/L (136-145) Potassium Level 4.6 mmol/L (3.5-5.1) Chloride Level 103 mmol/L (98-107) Carbon Dioxide Level 29 mmol/L (21-32) Anion Gap 8 (6-14) Blood Urea Nitrogen 45 mg/dL (7-20) Creatinine 1.6 mg/dL (0.6-1.0) Estimated GFR (Cockcroft-Gault) 30.9 Glucose Level 256 mg/dL (70-99) Calcium Level 9.6 mg/dL (8.5-10.1) Test 08/11/18 08:21 08/11/18 13:37 08/11/18 16:33 08/12/18 00:28 Glucose (Fingerstick) 239 mg/dL (70-99) 245 mg/dL (70-99) 206 mg/dL (70-99) 182 mg/dL (70-99) Test 08/12/18 05:00 08/12/18 06:05 08/12/18 08:51 Sodium Level 138 mmol/L (136-145) Potassium Level 4.9 mmol/L (3.5-5.1) Chloride Level 102 mmol/L (98-107) Carbon Dioxide Level 29 mmol/L (21-32) Anion Gap 7 (6-14) Blood Urea Nitrogen 53 mg/dL (7-20) Creatinine 2.0 mg/dL (0.6-1.0) Estimated GFR (Cockcroft-Gault) 23.9 Glucose Level 267 mg/dL (70-99) Calcium Level 9.7 mg/dL (8.5-10.1) White Blood Count 11.8 x10^3/uL (4.0-11.0) Red Blood Count 3.52 x10^6/uL (3.50-5.40) Hemoglobin 11.5 g/dL (12.0-15.5) Hematocrit 34.2 % (36.0-47.0) Mean Corpuscular Volume 97 fL (79-100) Mean Corpuscular Hemoglobin 33 pg (25-35) Mean Corpuscular Hemoglobin Concent 34 g/dL (31-37) Red Cell Distribution Width 14.8 % (11.5-14.5) Platelet Count 244 x10^3/uL (140-400) Neutrophils (%) (Auto) 83 % (31-73) Lymphocytes (%) (Auto) 9 % (24-48) Monocytes (%) (Auto) 6 % (0-9) Eosinophils (%) (Auto) 1 % (0-3) Basophils (%) (Auto) 0 % (0-3) Neutrophils # (Auto) 9.8 x10^3uL (1.8-7.7) Lymphocytes # (Auto) 1.1 x10^3/uL (1.0-4.8) Monocytes # (Auto) 0.7 x10^3/uL (0.0-1.1) Eosinophils # (Auto) 0.1 x10^3/uL (0.0-0.7) Basophils # (Auto) 0.0 x10^3/uL (0.0-0.2) Glucose (Fingerstick) 286 mg/dL (70-99) Laboratory Tests Test 08/11/18 13:37 08/11/18 16:33 08/12/18 00:28 08/12/18 05:00 Glucose (Fingerstick) 245 mg/dL (70-99) 206 mg/dL (70-99) 182 mg/dL (70-99) Sodium Level 138 mmol/L (136-145) Potassium Level 4.9 mmol/L (3.5-5.1) Chloride Level 102 mmol/L (98-107) Carbon Dioxide Level 29 mmol/L (21-32) Anion Gap 7 (6-14) Blood Urea Nitrogen 53 mg/dL (7-20) Creatinine 2.0 mg/dL (0.6-1.0) Estimated GFR (Cockcroft-Gault) 23.9 Glucose Level 267 mg/dL (70-99) Calcium Level 9.7 mg/dL (8.5-10.1) Test 08/12/18 06:05 08/12/18 08:51 White Blood Count 11.8 x10^3/uL (4.0-11.0) Red Blood Count 3.52 x10^6/uL (3.50-5.40) Hemoglobin 11.5 g/dL (12.0-15.5) Hematocrit 34.2 % (36.0-47.0) Mean Corpuscular Volume 97 fL (79-100) Mean Corpuscular Hemoglobin 33 pg (25-35) Mean Corpuscular Hemoglobin Concent 34 g/dL (31-37) Red Cell Distribution Width 14.8 % (11.5-14.5) Platelet Count 244 x10^3/uL (140-400) Neutrophils (%) (Auto) 83 % (31-73) Lymphocytes (%) (Auto) 9 % (24-48) Monocytes (%) (Auto) 6 % (0-9) Eosinophils (%) (Auto) 1 % (0-3) Basophils (%) (Auto) 0 % (0-3) Neutrophils # (Auto) 9.8 x10^3uL (1.8-7.7) Lymphocytes # (Auto) 1.1 x10^3/uL (1.0-4.8) Monocytes # (Auto) 0.7 x10^3/uL (0.0-1.1) Eosinophils # (Auto) 0.1 x10^3/uL (0.0-0.7) Basophils # (Auto) 0.0 x10^3/uL (0.0-0.2) Glucose (Fingerstick) 286 mg/dL (70-99) Medications Active Scripts Medications Dose Route/Sig Max Daily Dose Days Date Category Doxycycline Hyclate 100 Mg Tablet 100 Mg PO BID 08/07/18 Reported Eliquis (Apixaban) 5 Mg Tablet 5 Mg PO BID 08/06/18 Reported Aspercreme 10% Cream (Trolamine Salicylate/Aloe Vera) 35.4 Gm Cream..g. 35.4 Gm TP TID PRN PRN 08/06/18 Reported Isosorbide Mononitrate Er (Isosorbide Mononitrate) 60 Mg Tab.er.24h 60 Mg PO DAILY 08/06/18 Reported Aspercreme (Lidocaine) 1 Each Adh..patch 1 Each TP DAILY 08/06/18 Reported Bumetanide 2 Mg Tablet 4 Mg PO BID 08/06/18 Reported Spironolactone 25 Mg Tablet 25 Mg PO DAILY 02/24/18 Reported Potassium Chloride 10 Meq Tablet.er 10 Meq PO DAILY 02/24/18 Reported Omeprazole 40 Mg Capsule.dr 40 Mg PO DAILY 02/24/18 Reported NITROGLYCERIN SubLingual (Nitroglycerin) 0.4 Mg Tab.subl 0.4 Mg SL PRN Q5MIN PRN 09/19/17 Reported Escitalopram Oxalate 20 Mg Tablet 1 Tab PO DAILY 09/19/17 Reported Diltiazem 24HR Cd (Diltiazem Hcl) 180 Mg Cap.er.24h 1 Cap PO DAILY 09/19/17 Reported Ascorbic Acid 500 Mg Tablet 500 Mg PO 06/29/17 Reported Multivitamins (Multivitamin) 1 Each Tablet 1 Tab PO DAILY 06/29/17 Reported Metolazone 5 Mg Tablet 5 Mg PO DAILY 05/15/17 Reported Novolog Flexpen (Insulin Aspart) 100 Unit/1 Ml Insuln.pen 10 Unit SQ TIDAC 05/15/17 Reported Tresiba Flextouch U-100 (Insulin Degludec) 100 Unit/1 Ml Insuln.pen 34 Unit SQ [id number] 03/12/17 Reported Ferrous Sulfate 325 Mg Tablet 1 Tab PO DAILY 01/04/17 Reported Dulcolax (Bisacodyl) 10 Mg Supp.rect 10 Mg RC PRN DAILY PRN 01/04/17 Reported Aspirin 325 Mg Tablet 1 Tab PO DAILY 12/28/16 Reported Metoprolol Tartrate 25 Mg Tablet 25 Tab PO BID 03/24/16 Reported Acetaminophen 500 Mg Tablet 500 Mg PO PRN Q8HRS PRN 02/16/16 Reported Meclizine Hcl 12.5 Mg Tablet 1 Tab PO BID 01/17/16 Reported Hydrocodone-Apap 5-325 (Hydrocodone Bit/Acetaminophen) 1 Each Tablet 1 Tab PO Q12HR PRN 01/17/16 Reported Stool Softener (Docusate Sodium) 100 Mg Capsule 100 Mg PO BID 05/10/13 Reported Losartan Potassium 100 Mg Tablet 50 Mg PO DAILY 05/10/13 Reported Comments MRI IMPRESSION: 1. Evidence of a new acute infarction in the region of the right thalamus, and possibly posterior right internal capsule and medial left thalamus. 2. Left temporal infarction changes are again seen. There may be a new tiny focus of acute infarction in the anterior left temporal lobe. 3. Otherwise, severe motion degradation limits the usefulness of this exam. Impression . 1. Acute metabolic encephalopathy due to new acute infarction in the region of the right thalamus, and possibly posterior right internal capsule and medial left thalamus. ABGs showed no evidence of any hypercapnia. 2. Acute stroke with extension. 3. Johnny-Silva breathing pattern related to her stroke. Ejection fraction was normal. Now resolved 3. No significant history of tobacco use. 4. Chest x-ray slightly abnormal on admission with mildly prominent interstitial markings, could be mild neurogenic edema. Plan . 1. off BiPAP 2. DNR and DNI. 3. May consider hospice 4. Avoid any narcotics. 6. palliative care following, poor prognosis 7. CXR with mild Interstitial infiltrate, try ADRIAN Murillo rn, MD Aug 12, 2018 11:46
[2018-08-12] MEDS ORDERED: FUROSEMIDE 20 MG/2 ML VIAL. IVP ONE (12:00)
--- NOTE | 2018-08-12 12:57 | RAD ---
Single view of the chest. 08/12/2018 10:40 AM Indication: PULMONARY EDEMA Comparison: Chest radiograph August 06, 2018 Findings: There is a weighted feeding tube extending into the stomach. Diffuse interstitial coarsening is noted. No overt central vascular congestion or interstitial edema is identified on today's radiograph. No pneumothorax or pleural effusion is seen. Heart is mildly enlarged but similar to comparison study. IMPRESSION: 1. New weighted feeding tube with tip extending below the diaphragm into the stomach 2. Mild interstitial coarsening. No overt edema identified. Electronically signed by: Rodolfo Maki MD (08/12/2018 12:54 PM) [id number]
--- NOTE | 2018-08-12 14:13 | PDOC ---
PROGRESS NOTES Chief Complaint Chief Complaint Acute CVA w/ dysarthria/confusion New rigth sided CVA with thalamus involvement. MRI showed Evidence of a new acute infarction in the region of the right thalamus, and possibly posterior right internal capsule and medial left thalamus. Left temporal infarction changes are again seen. There may be a new tiny focus of acute infarction in the anterior left temporal lobe. Elevated troponin 0.385low concern for cardiac etiology suspect CVA and renal insufficiency contributing Recent mechanical Fall: no significant traumatic injury Recent Coumadin induced coagulopathy, transitioned to eliquis Cervical/lumbar stenosis with chronic L RTC tear Chronic A FIB CAD: past stents HTN HLP CKD3 acute on chronic insufficiency, will try diuresing in light of physical exam and supporting pfindings on xray with vascular congestion Plan: follow recommendations from neurology customer care voice consultant EEG done early in the day will follow results congestion on physical exam, x ray noted, will give Bumex BID supportive measures further recommendations based on clinical course. improving over the last 24 hours History of Present Illness History of Present Illness Patient more responsive today compared to yesterday. Hopefully will start waking up more,, EEG planned for the morning. 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 ) Skin: No breakdown, No significant lesion, Other (Chestnut indurated b/l lower extremities ) Labs LABS Laboratory Tests Test 08/11/18 16:33 08/12/18 00:28 08/12/18 05:00 08/12/18 06:05 Glucose (Fingerstick) 206 mg/dL (70-99) 182 mg/dL (70-99) Sodium Level 138 mmol/L (136-145) Potassium Level 4.9 mmol/L (3.5-5.1) Chloride Level 102 mmol/L (98-107) Carbon Dioxide Level 29 mmol/L (21-32) Anion Gap 7 (6-14) Blood Urea Nitrogen 53 mg/dL (7-20) Creatinine 2.0 mg/dL (0.6-1.0) Estimated GFR (Cockcroft-Gault) 23.9 Glucose Level 267 mg/dL (70-99) Calcium Level 9.7 mg/dL (8.5-10.1) White Blood Count 11.8 x10^3/uL (4.0-11.0) Red Blood Count 3.52 x10^6/uL (3.50-5.40) Hemoglobin 11.5 g/dL (12.0-15.5) Hematocrit 34.2 % (36.0-47.0) Mean Corpuscular Volume 97 fL (79-100) Mean Corpuscular Hemoglobin 33 pg (25-35) Mean Corpuscular Hemoglobin Concent 34 g/dL (31-37) Red Cell Distribution Width 14.8 % (11.5-14.5) Platelet Count 244 x10^3/uL (140-400) Neutrophils (%) (Auto) 83 % (31-73) Lymphocytes (%) (Auto) 9 % (24-48) Monocytes (%) (Auto) 6 % (0-9) Eosinophils (%) (Auto) 1 % (0-3) Basophils (%) (Auto) 0 % (0-3) Neutrophils # (Auto) 9.8 x10^3uL (1.8-7.7) Lymphocytes # (Auto) 1.1 x10^3/uL (1.0-4.8) Monocytes # (Auto) 0.7 x10^3/uL (0.0-1.1) Eosinophils # (Auto) 0.1 x10^3/uL (0.0-0.7) Basophils # (Auto) 0.0 x10^3/uL (0.0-0.2) Test 08/12/18 08:51 08/12/18 12:48 Glucose (Fingerstick) 286 mg/dL (70-99) 198 mg/dL (70-99) Assessment and Plan Assessmemt and Plan Problems Medical Problems: (1) Change in mental status Status: Acute Comment Review of Relevant I have reviewed the following items alejandra (where applicable) has been applied. Labs Laboratory Tests Test 08/10/18 16:58 08/10/18 20:59 08/11/18 04:30 08/11/18 08:21 Glucose (Fingerstick) 209 mg/dL (70-99) 173 mg/dL (70-99) 239 mg/dL (70-99) White Blood Count 13.0 x10^3/uL (4.0-11.0) Red Blood Count 3.73 x10^6/uL (3.50-5.40) Hemoglobin 12.0 g/dL (12.0-15.5) Hematocrit 36.6 % (36.0-47.0) Mean Corpuscular Volume 98 fL (79-100) Mean Corpuscular Hemoglobin 32 pg (25-35) Mean Corpuscular Hemoglobin Concent 33 g/dL (31-37) Red Cell Distribution Width 14.8 % (11.5-14.5) Platelet Count 250 x10^3/uL (140-400) Neutrophils (%) (Auto) 85 % (31-73) Lymphocytes (%) (Auto) 7 % (24-48) Monocytes (%) (Auto) 8 % (0-9) Eosinophils (%) (Auto) 1 % (0-3) Basophils (%) (Auto) 0 % (0-3) Neutrophils # (Auto) 11.0 x10^3uL (1.8-7.7) Lymphocytes # (Auto) 0.9 x10^3/uL (1.0-4.8) Monocytes # (Auto) 1.1 x10^3/uL (0.0-1.1) Eosinophils # (Auto) 0.1 x10^3/uL (0.0-0.7) Basophils # (Auto) 0.1 x10^3/uL (0.0-0.2) Segmented Neutrophils % 83 % (35-66) Lymphocytes % 11 % (24-48) Monocytes % 5 % (0-10) Eosinophils % 1 % (0-5) Platelet Estimate Adequate (ADEQUATE) Sodium Level 140 mmol/L (136-145) Potassium Level 4.6 mmol/L (3.5-5.1) Chloride Level 103 mmol/L (98-107) Carbon Dioxide Level 29 mmol/L (21-32) Anion Gap 8 (6-14) Blood Urea Nitrogen 45 mg/dL (7-20) Creatinine 1.6 mg/dL (0.6-1.0) Estimated GFR (Cockcroft-Gault) 30.9 Glucose Level 256 mg/dL (70-99) Calcium Level 9.6 mg/dL (8.5-10.1) Test 08/11/18 13:37 08/11/18 16:33 08/12/18 00:28 08/12/18 05:00 Glucose (Fingerstick) 245 mg/dL (70-99) 206 mg/dL (70-99) 182 mg/dL (70-99) Sodium Level 138 mmol/L (136-145) Potassium Level 4.9 mmol/L (3.5-5.1) Chloride Level 102 mmol/L (98-107) Carbon Dioxide Level 29 mmol/L (21-32) Anion Gap 7 (6-14) Blood Urea Nitrogen 53 mg/dL (7-20) Creatinine 2.0 mg/dL (0.6-1.0) Estimated GFR (Cockcroft-Gault) 23.9 Glucose Level 267 mg/dL (70-99) Calcium Level 9.7 mg/dL (8.5-10.1) Test 08/12/18 06:05 08/12/18 08:51 08/12/18 12:48 White Blood Count 11.8 x10^3/uL (4.0-11.0) Red Blood Count 3.52 x10^6/uL (3.50-5.40) Hemoglobin 11.5 g/dL (12.0-15.5) Hematocrit 34.2 % (36.0-47.0) Mean Corpuscular Volume 97 fL (79-100) Mean Corpuscular Hemoglobin 33 pg (25-35) Mean Corpuscular Hemoglobin Concent 34 g/dL (31-37) Red Cell Distribution Width 14.8 % (11.5-14.5) Platelet Count 244 x10^3/uL (140-400) Neutrophils (%) (Auto) 83 % (31-73) Lymphocytes (%) (Auto) 9 % (24-48) Monocytes (%) (Auto) 6 % (0-9) Eosinophils (%) (Auto) 1 % (0-3) Basophils (%) (Auto) 0 % (0-3) Neutrophils # (Auto) 9.8 x10^3uL (1.8-7.7) Lymphocytes # (Auto) 1.1 x10^3/uL (1.0-4.8) Monocytes # (Auto) 0.7 x10^3/uL (0.0-1.1) Eosinophils # (Auto) 0.1 x10^3/uL (0.0-0.7) Basophils # (Auto) 0.0 x10^3/uL (0.0-0.2) Glucose (Fingerstick) 286 mg/dL (70-99) 198 mg/dL (70-99) Laboratory Tests Test 08/11/18 16:33 08/12/18 00:28 08/12/18 05:00 08/12/18 06:05 Glucose (Fingerstick) 206 mg/dL (70-99) 182 mg/dL (70-99) Sodium Level 138 mmol/L (136-145) Potassium Level 4.9 mmol/L (3.5-5.1) Chloride Level 102 mmol/L (98-107) Carbon Dioxide Level 29 mmol/L (21-32) Anion Gap 7 (6-14) Blood Urea Nitrogen 53 mg/dL (7-20) Creatinine 2.0 mg/dL (0.6-1.0) Estimated GFR (Cockcroft-Gault) 23.9 Glucose Level 267 mg/dL (70-99) Calcium Level 9.7 mg/dL (8.5-10.1) White Blood Count 11.8 x10^3/uL (4.0-11.0) Red Blood Count 3.52 x10^6/uL (3.50-5.40) Hemoglobin 11.5 g/dL (12.0-15.5) Hematocrit 34.2 % (36.0-47.0) Mean Corpuscular Volume 97 fL (79-100) Mean Corpuscular Hemoglobin 33 pg (25-35) Mean Corpuscular Hemoglobin Concent 34 g/dL (31-37) Red Cell Distribution Width 14.8 % (11.5-14.5) Platelet Count 244 x10^3/uL (140-400) Neutrophils (%) (Auto) 83 % (31-73) Lymphocytes (%) (Auto) 9 % (24-48) Monocytes (%) (Auto) 6 % (0-9) Eosinophils (%) (Auto) 1 % (0-3) Basophils (%) (Auto) 0 % (0-3) Neutrophils # (Auto) 9.8 x10^3uL (1.8-7.7) Lymphocytes # (Auto) 1.1 x10^3/uL (1.0-4.8) Monocytes # (Auto) 0.7 x10^3/uL (0.0-1.1) Eosinophils # (Auto) 0.1 x10^3/uL (0.0-0.7) Basophils # (Auto) 0.0 x10^3/uL (0.0-0.2) Test 08/12/18 08:51 08/12/18 12:48 Glucose (Fingerstick) 286 mg/dL (70-99) 198 mg/dL (70-99) Microbiology 08/06/18 Blood Culture - Final, Complete NO GROWTH AFTER 5 DAYS Medications Current Medications Sodium Chloride 500 ml @ 500 mls/hr 1X ONCE IV Last administered on 08/06/18at 16:21; Start 08/06/18 at 16:00; Stop 08/06/18 at 16:59; Status DC Ondansetron HCl (Zofran) 4 mg PRN Q6HRS PRN IV NAUSEA/VOMITING; Start 08/06/18 at 18:15 Morphine Sulfate (Morphine Sulfate) 1 mg PRN Q1HR PRN IV PAIN; Start 08/06/18 at 18:15 Lactulose (Lactulose) 20 gm PRN Q12HR PRN PO CONSTIPATION, 2ND CHOICE; Start at 18:15 Heparin Sodium (Porcine) (Heparin Sodium) 5,000 unit Q12HR SQ ; Start 08/06/18 at 21:00; Stop 08/06/18 at 21:00; Status DC Ascorbic Acid (Vitamin C) 500 mg DAILY PO Last administered on 08/08/18at 08:57; Start 08/07/18 at 09:00 Aspirin (Derek Aspirin) 325 mg DAILY PO Last administered on 08/08/18at 08:56; Start 08/07/18 at 09:00; Stop 08/08/18 at 15:05; Status DC Calcium/Vitamin D (Oscal D 500mg/ 200uts) 1 tab DAILY PO Last administered on 08:57; Start 08/07/18 at 09:00 Docusate Sodium (Colace) 100 mg BID PO Last administered on 08/10/18 20:50; Start 08/06/18 at 21:00 Ferrous Sulfate (Feosol) 325 mg DAILY PO Last administered on 08/08/18 08:56; Start 08/07/18 at 09:00 Acetaminophen/ Hydrocodone Bitart (Lortab 5/325) 1 tab PRN Q12HRS PRN PO MODERATE PAIN Last administered on 08/08/18 02:32; Start 08/06/18 at 18:15 Metoprolol Tartrate (Lopressor) 25 mg BID PO Last administered on 08/08/18 08: 57; Start 08/06/18 at 21:00; Stop 08/09/18 at 19:16; Status DC Nitroglycerin (Nitrostat) 0.4 mg PRN Q5MIN PRN SL CHEST PAIN; Start 08/06/18 at 18:15 Oxycodone/ Acetaminophen (Percocet 5/325) 1 tab PRN Q6HRS PRN PO SEVERE PAIN Last administered on 08/07/18 21:12; Start 08/06/18 at 18:15 Potassium Chloride (Klor-Con) 10 meq DAILY PO Last administered on 08/08/18 08: 56; Start 08/07/18 at 09:00 Acetaminophen (Tylenol) 500 mg PRN Q8HRS PRN PO MILD PAIN / TEMP Last administered on 08/07/18 14:07; Start 08/06/18 at 19:00; Stop 08/08/18 at 14:52; Status DC Bisacodyl (Dulcolax Supp) 10 mg PRN DAILY PRN NV CONSTIPATION Last administered on 08/09/18 09:28; Start 08/06/18 at 19:00 Diltiazem HCl (Cardizem 24hr Cd) 180 mg DAILY PO Last administered on 08/08/18 08:56; Start 08/07/18 at 09:00; Stop 08/09/18 at 11:49; Status DC Citalopram Hydrobromide (CeleXA) 40 mg DAILY PO Last administered on 08/09/18 09:28; Start 08/07/18 at 09:00 Insulin Human Lispro (HumaLOG) 10 units TIDWMEALS SQ Last administered on 12:51; Start 08/06/18 at 19:30 Insulin Glargine (Lantus) 34 units DAILYWBKFT SQ Last administered on 08/12/18 08:59; Start 08/07/18 at 08:00 Losartan Potassium (Cozaar) 50 mg DAILY PO Last administered on 08/07/18 09:26 ; Start 08/07/18 at 09:00; Stop 08/08/18 at 07:30; Status DC Magnesium Hydroxide (Milk Of Magnesia) 2,400 mg PRN DAILY PRN PO CONSTIPATION, 1ST CHOICE; Start 08/06/18 at 19:00 Meclizine HCl (Antivert) 12.5 mg BID PO Last administered on 08/11/18 21:35; Start 08/06/18 at 21:00 Metolazone (Zaroxolyn) 5 mg DAILY PO Last administered on 08/07/18 09:23; Start 08/07/18 at 09:00; Stop 08/07/18 at 10:37; Status DC Multivitamins (Thera M Plus) 1 tab DAILY PO Last administered on 08/08/18 08:57 ; Start 08/07/18 at 09:00 Pantoprazole Sodium (Protonix) 40 mg DAILYAC PO Last administered on 08/09/18 09:28; Start 08/07/18 at 07:30 Polyethylene Glycol (miraLAX PACKET) 17 gm DAILY PO Last administered on 08:54; Start 08/07/18 at 09:00 Famotidine (Pepcid) 20 mg DAILY PO Last administered on 08/08/18 08:57; Start 08/07/18 at 09:00 Spironolactone (Aldactone) 25 mg DAILY PO Last administered on 08/07/18 09:27; Start 08/07/18 at 09:00; Stop 08/08/18 at 12:43; Status DC Warfarin Sodium (Coumadin) 5 mg DAILY16 PO ; Start 08/06/18 at 19:30; Stop at 20:46; Status DC Warfarin Sodium (Coumadin Per Physician) 1 each PRN DAILY PRN MC SEE COMMENTS; Start 08/06/18 at 19:00; Stop 08/06/18 at 20:46; Status DC Bumetanide (Bumex) 4 mg BID94 PO Last administered on 08/07/18at 09:23; Start 08/07/18 at 09:00; Stop 08/07/18 at 10:33; Status DC Isosorbide Mononitrate (Imdur) 60 mg DAILY PO Last administered on 08/07/18at 09: 27; Start 08/07/18 at 09:00; Stop 08/08/18 at 07:30; Status DC Non-Formulary Medication (Lidocaine (Aspercreme)) 1 each DAILY TP ; Start at 09:00; Status UNV Non-Formulary Medication (Omeprazole ) 40 mg DAILY PO ; Start 08/07/18 at 09:00; Status UNV Multi-Ingredient Ointment (Analgesic [place]) 1 marisol PRN TID PRN TP MUSCLE PAIN; Start 08/06/18 at 20:45; Stop 08/06/18 at 20:45; Status DC Mirtazapine (Remeron) 7.5 mg QHS PO Last administered on 08/11/18at 21:35; Start 08/06/18 at 21:00 Multi-Ingredient Ointment (Analgesic [place]) 1 marisol PRN TID PRN TP MUSCLE PAIN Last administered on 08/06/18at 22:17; Start 08/06/18 at 20:45 Apixaban (Eliquis) 5 mg BID PO Last administered on 08/08/18at 08:57; Start at 21:00; Stop 08/08/18 at 13:15; Status DC Info (Anti-Coagulation Monitoring By Pharmacy) 1 each PRN DAILY PRN MC SEE COMMENTS Last administered on 08/08/18at 13:22; Start 08/06/18 at 21:00 Acetaminophen (Tylenol) 650 mg PRN Q6HRS PRN PO TEMP > 100.4F; Start 08/07/18 at 09:00 Acetaminophen (Tylenol Supp) 650 mg PRN Q4HRS PRN NV TEMP > 100.4F; Start at 09:00 Bumetanide (Bumex) 2 mg BID94 PO ; Start 08/07/18 at 16:00; Stop 08/08/18 at 12:43 ; Status DC Losartan Potassium (Cozaar) 50 mg NOON PO ; Start 08/08/18 at 12:00; Stop at 11:49; Status DC Naloxone HCl (Narcan) 0.4 mg 1X ONCE IV Last administered on 08/08/18at 10:47; Start 08/08/18 at 11:30; Stop 08/08/18 at 11:31; Status DC Atorvastatin Calcium (Lipitor) 40 mg QHS PO Last administered on 08/11/18at 21:35 ; Start 08/08/18 at 21:00 Levetiracetam 500 mg/Dextrose 105 ml @ 420 mls/hr Q12HR IV Last administered on 08/12/18at 08:57; Start 08/08/18 at 12:00 Apixaban (Eliquis) 2.5 mg BID PO ; Start 08/08/18 at 21:00; Stop 08/08/18 at 21:00 ; Status DC Enoxaparin Sodium (Lovenox 40mg Syringe) 40 mg Q24H SQ Last administered on 08/09at 18:37; Start 08/08/18 at 16:00; Stop 08/10/18 at 10:12; Status DC Metoprolol Tartrate (Lopressor Vial) 5 mg PRN Q6HRS PRN IVP HYPERTENSION, SEE COMMENTS; Start 08/08/18 at 15:45; Stop 08/08/18 at 17:09; Status DC Metoprolol Tartrate (Lopressor Vial) 5 mg Q6HRS IVP Last administered on at 12:50; Start 08/08/18 at 18:00 Dextrose (Dextrose 50%-Water Syringe) 25 gm STK-MED ONCE IV ; Start 08/08/18 at 17:25; Stop 08/08/18 at 17:26; Status DC Dextrose (Dextrose 50%-Water Syringe) 25 gm STK-MED ONCE IV ; Start 08/08/18 at 21:40; Stop 08/08/18 at 21:41; Status DC Dextrose (Dextrose 50%-Water Syringe) 12.5 gm PRN Q15MIN PRN IV SEE COMMENTS Last administered on 08/08/18at 21:45; Start 08/08/18 at 21:45 Dextrose (Dextrose 50%-Water Syringe) 25 gm STK-MED ONCE IV ; Start 08/08/18 at 18:00; Stop 08/09/18 at 08:52; Status DC Digoxin (Lanoxin) 250 mcg PRN DAILY PRN IV SEE COMMENTS; Start 08/09/18 at 12:00 Enoxaparin Sodium (Lovenox 30mg Syringe) 30 mg Q24H SQ Last administered on 08/11at 16:34; Start 08/10/18 at 16:00 Bumetanide (Bumex) 1 mg BID92 IV Last administered on 08/12/18at 10:45; Start 08/12/18 at 10:00 Furosemide (Lasix) 20 mg 1X ONCE IVP ; Start 08/12/18 at 12:00; Stop 08/12/18 at 12:21; Status DC Aspirin (Aspirin) 300 mg DAILY NV ; Start 08/13/18 at 09:00 Active Scripts Active Reported Doxycycline Hyclate 100 Mg Tablet 100 Mg PO BID Eliquis (Apixaban) 5 Mg Tablet 5 Mg PO BID Aspercreme 10% Cream (Trolamine Salicylate/Aloe Vera) 35.4 Gm Cream..g. 35.4 Gm TP TID PRN PRN Isosorbide Mononitrate Er (Isosorbide Mononitrate) 60 Mg Tab.er.24h 60 Mg PO DAILY Aspercreme (Lidocaine) 1 Each Adh..patch 1 Each TP DAILY Bumetanide 2 Mg Tablet 4 Mg PO BID Spironolactone 25 Mg Tablet 25 Mg PO DAILY Potassium Chloride 10 Meq Tablet.er 10 Meq PO DAILY Omeprazole 40 Mg Capsule.dr 40 Mg PO DAILY NITROGLYCERIN SubLingual (Nitroglycerin) 0.4 Mg Tab.subl 0.4 Mg SL PRN Q5MIN PRN Escitalopram Oxalate 20 Mg Tablet 1 Tab PO DAILY Diltiazem 24HR Cd (Diltiazem Hcl) 180 Mg Cap.er.24h 1 Cap PO DAILY Ascorbic Acid 500 Mg Tablet 500 Mg PO Multivitamins (Multivitamin) 1 Each Tablet 1 Tab PO DAILY Metolazone 5 Mg Tablet 5 Mg PO DAILY Novolog Flexpen (Insulin Aspart) 100 Unit/1 Ml Insuln.pen 10 Unit SQ TIDAC Tresiba Flextouch U-100 (Insulin Degludec) 100 Unit/1 Ml Insuln.pen 34 Unit SQ DAILYWBKFT Ferrous Sulfate 325 Mg Tablet 1 Tab PO DAILY Dulcolax (Bisacodyl) 10 Mg Supp.rect 10 Mg RC PRN DAILY PRN Aspirin 325 Mg Tablet 1 Tab PO DAILY Metoprolol Tartrate 25 Mg Tablet 25 Tab PO BID Acetaminophen 500 Mg Tablet 500 Mg PO PRN Q8HRS PRN Meclizine Hcl 12.5 Mg Tablet 1 Tab PO BID Hydrocodone-Apap 5-325 (Hydrocodone Bit/Acetaminophen) 1 Each Tablet 1 Tab PO Q12HR PRN Stool Softener (Docusate Sodium) 100 Mg Capsule 100 Mg PO BID Losartan Potassium 100 Mg Tablet 50 Mg PO DAILY Vitals/I & O Vital Sign - Last 24 Hours 08/11/18 08/11/18 08/11/18 08/11/18 15:00 16:03 16:04 16:09 Pulse 88 85 Resp 20 20 B/P (MAP) 142/56 (84) 160/73 (102) Pulse Ox 98 98 O2 Delivery Room Air Room Air Room Air O2 Flow Rate 21.0 08/11/18 08/11/18 08/11/18 08/11/18 16:32 17:00 19:00 20:00 Pulse 85 86 88 Resp 20 17 B/P (MAP) 160/73 150/68 (95) 124/53 (76) Pulse Ox 98 99 O2 Delivery Room Air Room Air Room Air 08/11/18 08/11/18 08/11/18 08/11/18 20:00 21:00 22:00 23:00 Temp 99.0 99.0 Pulse 87 100 86 92 Resp 22 26 20 23 B/P (MAP) 144/65 (91) 146/64 (91) 150/72 (98) 147/72 (97) Pulse Ox 100 99 99 99 O2 Delivery Room Air Room Air Room Air Room Air 08/12/18 08/12/18 08/12/18 08/12/18 00:08 00:13 00:21 01:00 Temp 98.5 98.5 Pulse 107 107 88 Resp 20 18 B/P (MAP) 126/62 (83) 126/62 125/68 (87) Pulse Ox 98 99 O2 Delivery Room Air Room Air Room Air 08/12/18 08/12/18 08/12/18 08/12/18 02:00 03:00 04:00 04:00 Temp 98.1 98.1 Pulse 78 89 105 Resp 23 B/P (MAP) 139/58 (85) 146/76 (99) 143/81 (101) Pulse Ox 98 100 98 O2 Delivery Room Air Room Air Room Air Room Air 08/12/18 08/12/18 08/12/18 08/12/18 05:00 05:22 06:04 07:00 Temp 98.3 98.3 Pulse 92 92 97 83 Resp B/P (MAP) 131/59 (83) 131/59 126/86 (99) 138/80 (99) Pulse Ox 99 99 99 O2 Delivery Room Air Room Air Room Air 08/12/18 08/12/18 08/12/18 08/12/18 08:00 08:00 08:00 09:00 Pulse 97 84 Resp B/P (MAP) 134/74 (94) 133/64 (87) Pulse Ox 99 99 O2 Delivery Room Air Room Air Room Air O2 Flow Rate 21.0 08/12/18 08/12/18 08/12/18 08/12/18 10:00 11:00 12:00 12:15 Pulse 92 79 88 Resp 22 B/P (MAP) 153/83 (106) 148/69 (95) 143/68 (93) Pulse Ox 99 99 99 O2 Delivery Room Air Room Air Room Air O2 Flow Rate 21.0 08/12/18 08/12/18 08/12/18 12:16 12:50 13:07 Pulse 88 82 Resp 22 B/P (MAP) 143/68 124/71 (88) Pulse Ox 99 O2 Delivery Room Air Room Air Intake and Output 08/11/18 08/11/18 08/12/18 15:00 23:00 07:00 Intake Total 105 ml 355 ml 592 ml Output Total 340 ml 185 ml 246 ml Balance -235 ml 170 ml 346 ml WILLY VINCENT MD Aug 12, 2018 14:13
--- NOTE | 2018-08-12 14:20 | PDOC ---
PROGRESS NOTES Assessment Assessment IMPRESSION: Subacute bilateral infarctions in the region of the right thalamus, and possibly posterior right internal capsule and medial left thalamus, possible new tiny focus of acute infarction in the anterior left temporal lobe. thalami infarcts. Recent temporal lobe stroke with aphasia, receptive and expressive components. 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 Cardioembolic phenomenon. The combination of bilateral infarcts, although each is fairly small and non- life-threatening, has rendered her in a near-comatose state. She is slowly improving. Metabolic encephalopathy. AFib. Hyperglycemia. Renal failure. DM. HTN. HLD. CHF. Obesity. Old superior L2 compression fracture, advanced degenerative disc disease L5-S1 , severe spinal stenosis L4-5, right greater than left L5-S1 neural foramina compromise, mild to moderate narrowing of the L5-S1 neural foramen, minimal narrowing of the left L5-S1 and L3-4 neural foramina, grade 1 anterior spondylolisthesis at L4-5, negligible anterior spondylolisthesis at L5-S1. There is facet degenerative change greater inferiorly of the lumbar spine. Cervical spondylosis: degenerative disc disease at C4-C7 RECOMMENDATIONS/PLAN: ASA 300 mg rectal daily at the present time. Statin HS when able to take PO. Treat medical diseases. Continue Keppra at the present time. EEG. Palliative care consulted. Discussed with her grandson at bedside in ICU on 08/12/18. Past Medical History Cardiovascular: AFIB, CAD, CHF, HTN, Hyperlipidemia, Other ( endocarditis, deep vein thrombosis) Pulmonary: Pulmonary embolus, Pneumonia GI: Constipation, GERD, Other ( diarrhea) Heme/Onc: Anemia NOS, Other ( easy bruising) Psych: Depression Musculoskeletal: low back pain Endocrine: Diabetes Past Surgical History Appendectomy, Cholecystectomy, Cataract Removal, Total knee replacement ( bilateral), Tonsillectomy ( adenoids), Other ( coronary stents, left leg vein stripping, cardiac catheterization, right knee incision and drainage) Family History CAD Social History , lives in assisted living, no alcohol or tobacco Allergies Coded Allergies: Iodinated Contrast- Oral and IV Dye (Verified Allergy, Severe, Anaphylaxis , 07/19/17) adhesive tape (Verified Allergy, Intermediate, 07/19/17) I S O L A T I O N *CONTACT* (Verified Allergy, Unknown, 07/19/17) mrsa meperidine (Verified Adverse Reaction, Intermediate, Vomiting, 3/15/18) ROS Negative for fever, chills, weight loss, shortness of breath, chest pain, indigestion, hematochezia, melena, and dysuria. Full 14-point review of systems is negative. MEDICATIONS: Refer to [facility] PHYSICAL EXAMINATION: General appearance in subacute distress. HEENT: Normocephalic and nontraumatic. Eyes, nose, ears, and throat are unremarkable. Hearing decrease. Neck is supple. No lymphadenopathy. No Crepitus. Cardiovascular: S1, S2, irregular rate and rhythm. Pulmonary: Decreased to auscultation bilaterally. Abdomen: Bowel sounds are positive. Extremities: Edema and ecchymoses noted. No restriction of range of motion, but mo active movements noted. NEUROLOGICAL EXAMINATION: Eyes closed. Moaning. Not oriented to time, place and person. Not communicating. PERRL. EOMI. CN: Not able to access due to not follow commands. Muscle tone: Decreased. Muscle strength: Minimal movements to stimuli. DTR: 1 Plantar reflex: Neutral response bilaterally Gait: not able to walk. Sensory exam: not accurate due to not follow commands. Not able to access cerebellar signs. F-T-N test not performed due to not follow commands. Objective Objective Vital Signs Date Time Temp Pulse Resp B/P (MAP) Pulse Ox O2 Delivery O2 Flow Rate FiO2 08/12/18 13:07 82 22 124/71 (88) 99 Room Air 08/12/18 12:15 21.0 08/12/18 07:00 98.3 98.3 Intake and Output 08/12/18 07:00 Intake Total 1052 ml Output Total 771 ml Balance 281 ml IV Total 210 ml Tube Feeding 642 ml Other 200 ml Output Urine Total 771 ml Vitals Signs Vitals VS - Last 72 Hours, by Label Date Time Temp Pulse Resp B/P (MAP) Pulse Ox O2 Delivery O2 Flow Rate FiO2 08/12/18 13:07 82 22 124/71 (88) 99 Room Air 08/12/18 12:50 88 143/68 08/12/18 12:16 Room Air 08/12/18 12:15 21.0 08/12/18 12:00 88 22 143/68 (93) 99 Room Air 08/12/18 11:00 79 22 148/69 (95) 99 Room Air 08/12/18 10:00 92 22 153/83 (106) 99 Room Air 08/12/18 09:00 84 22 133/64 (87) 99 Room Air 08/12/18 08:00 21.0 08/12/18 08:00 97 22 134/74 (94) 99 Room Air 08/12/18 08:00 Room Air 08/12/18 07:00 98.3 83 22 138/80 (99) 99 Room Air 98.3 08/12/18 06:04 97 22 126/86 (99) 99 Room Air 08/12/18 05:22 92 131/59 08/12/18 05:00 92 22 131/59 (83) 99 Room Air 08/12/18 04:00 Room Air 08/12/18 04:00 98.1 105 23 143/81 (101) 98 Room Air 98.1 08/12/18 03:00 89 19 146/76 (99) 100 Room Air 08/12/18 02:00 78 24 139/58 (85) 98 Room Air 08/12/18 01:00 88 18 125/68 (87) 99 Room Air 08/12/18 00:21 107 126/62 08/12/18 00:13 Room Air 08/12/18 00:08 98.5 107 20 126/62 (83) 98 Room Air 98.5 08/11/18 23:00 92 23 147/72 (97) 99 Room Air 08/11/18 22:00 86 20 150/72 (98) 99 Room Air 08/11/18 21:00 100 26 146/64 (91) 99 Room Air 08/11/18 20:00 99.0 87 22 144/65 (91) 100 Room Air 99.0 08/11/18 20:00 Room Air 08/11/18 19:00 88 17 124/53 (76) 99 Room Air 08/11/18 17:00 86 20 150/68 (95) 98 Room Air 08/11/18 16:32 85 160/73 08/11/18 16:09 85 20 160/73 (102) 98 Room Air 08/11/18 16:04 Room Air 08/11/18 16:03 21.0 08/11/18 15:00 88 20 142/56 (84) 98 Room Air 08/11/18 14:00 89 20 148/72 (97) 98 Room Air 08/11/18 13:42 90 162/68 08/11/18 13:00 98.9 86 20 162/61 (94) 98 Room Air 98.9 08/11/18 12:00 21.0 08/11/18 12:00 90 20 144/68 (93) 98 Room Air 08/11/18 12:00 Room Air 08/11/18 11:00 81 20 142/61 (88) 98 Room Air 08/11/18 10:00 84 20 138/60 (86) 98 Room Air 08/11/18 09:00 87 20 140/55 (83) 98 Room Air 08/11/18 08:00 Room Air 08/11/18 08:00 92 20 144/55 (84) 98 Room Air 08/11/18 07:00 98.9 88 20 134/55 (81) 98 Room Air 98.9 08/11/18 07:00 21.0 Laboratory Laboratory Laboratory Tests Test 08/11/18 16:33 08/12/18 00:28 08/12/18 05:00 08/12/18 06:05 Glucose (Fingerstick) 206 mg/dL (70-99) 182 mg/dL (70-99) Sodium Level 138 mmol/L (136-145) Potassium Level 4.9 mmol/L (3.5-5.1) Chloride Level 102 mmol/L (98-107) Carbon Dioxide Level 29 mmol/L (21-32) Anion Gap 7 (6-14) Blood Urea Nitrogen 53 mg/dL (7-20) Creatinine 2.0 mg/dL (0.6-1.0) Estimated GFR (Cockcroft-Gault) 23.9 Glucose Level 267 mg/dL (70-99) Calcium Level 9.7 mg/dL (8.5-10.1) White Blood Count 11.8 x10^3/uL (4.0-11.0) Red Blood Count 3.52 x10^6/uL (3.50-5.40) Hemoglobin 11.5 g/dL (12.0-15.5) Hematocrit 34.2 % (36.0-47.0) Mean Corpuscular Volume 97 fL (79-100) Mean Corpuscular Hemoglobin 33 pg (25-35) Mean Corpuscular Hemoglobin Concent 34 g/dL (31-37) Red Cell Distribution Width 14.8 % (11.5-14.5) Platelet Count 244 x10^3/uL (140-400) Neutrophils (%) (Auto) 83 % (31-73) Lymphocytes (%) (Auto) 9 % (24-48) Monocytes (%) (Auto) 6 % (0-9) Eosinophils (%) (Auto) 1 % (0-3) Basophils (%) (Auto) 0 % (0-3) Neutrophils # (Auto) 9.8 x10^3uL (1.8-7.7) Lymphocytes # (Auto) 1.1 x10^3/uL (1.0-4.8) Monocytes # (Auto) 0.7 x10^3/uL (0.0-1.1) Eosinophils # (Auto) 0.1 x10^3/uL (0.0-0.7) Basophils # (Auto) 0.0 x10^3/uL (0.0-0.2) Test 08/12/18 08:51 08/12/18 12:48 Glucose (Fingerstick) 286 mg/dL (70-99) 198 mg/dL (70-99) Microbiology 08/06/18 Blood Culture - Final, Complete NO GROWTH AFTER 5 DAYS Medication Medications Current Medications Aspirin (Aspirin) 300 mg DAILY OR ; Start 08/13/18 at 09:00 Bumetanide (Bumex) 1 mg [id number] IV Last administered on 08/12/18at 10:45; Start 08/12/18 at 10:00 Furosemide (Lasix) 20 mg 1X ONCE IVP ; Start 08/12/18 at 12:00; Stop 08/12/18 at 12:21; Status DC Comment Review of Relevant I have reviewed the following items alejandra (where applicable) has been applied. SAM PENA MD Aug 12, 2018 14:20
--- NOTE | 2018-08-12 14:45 | NUR ---
SS following up with discharge planning. Palliative care meeting with family and awaiting EEG results. PT/OT recommending long term unit. SS will await EEG results and Palliative Care meeting with family and will proceed accordingly.
[2018-08-12] MEDS: ENOXAPARIN 30 MG/0.3 ML SYRINGE. SQ SCH (16:17)
[2018-08-12] MEDS ORDERED: INSULIN LISPRO 300 UNITS/3 ML INSULN.PEN. SQ SCH (17:00)
[2018-08-12] MEDS ORDERED: DEXTROSE 50% 25 GM / 50ML DISP.SYRIN. IV PRN (17:00)
[2018-08-12] MEDS: BISACODYL 10 MG SUPP.RECT. PR PRN (17:29)
--- NOTE | 2018-08-12 19:55 | EEG ---
DATE OF SERVICE: 08/12/2018 EEG NUMBER: [id number]. OBJECTIVE: This is an 83-year-old female patient who had metabolic encephalopathy and multiple strokes. EEG was requested to evaluate cerebral activity. METHODS: Twenty electrodes were applied according to the international 10-20 electrode placement system. EKG monitoring, hyperventilation, intermittent photic stimulation, monopolar and bipolar montages are routinely utilized. The record was obtained on a digital system with video monitoring. FINDINGS: 1. Background: The patient was recorded in the decreased response state. No physiological awake, drowsy, and sleep states were recorded. The overall background amplitude is variable. No clear well-organized posterior dominant rhythm is observed. The overall background rhythm is with diffuse slowing in the theta and delta frequencies throughout the entire recording. 2. Abnormalities: No specific epileptiform discharge or electrographic seizure is seen. Diffuse slowing in the theta and delta frequencies throughout the entire recording. 3. Activation: Hyperventilation was not performed because the patient was in unresponsive state. Intermittent photic stimulation was performed with photic driving. IMPRESSION: This EEG is an abnormal study for the decreased response state. No physiological awake, drowsy, and sleep states were recorded. No well-organized posterior dominant rhythm is observed. The overall background rhythm is with diffuse slowing in the theta and delta frequencies throughout the entire recording. No focal, lateralizing, specific epileptiform discharge or electrographic seizure is seen. This pattern of EEG is suggestive of diffuse encephalopathy. SAM PENA MD DR: CAROLINE/colten JOB#: [id number] / [id number] FRANK
[2018-08-12] MEDS: DOCUSATE 100 MG/10 ML SOLUTION. PO SCH (21:25)
[2018-08-12] MEDS: MIRTAZAPINE 7.5 MG TABLET. PO SCH (21:25)
[2018-08-12] MEDS: ATORVASTATIN CALCIUM 40 MG TABLET. PO SCH (21:25)
[2018-08-13] VITALS (15 sets, daily range): BP systolic 97–154; BP diastolic 50–109
[2018-08-13] MEDS: METOPROLOL TARTRATE 5 MG/5 ML VIAL. IVP SCH ×3 (00:16→12:37)
[2018-08-13] MEDS: INSULIN LISPRO 300 UNITS/3 ML INSULN.PEN. SQ SCH ×5 (00:22→23:41)
[2018-08-13 05:15] LABS: BASO % 0 % (0-3); EOS # 0.3 x10^3/uL (0.0-0.7); EOS % 2 % (0-3); HEMATOCRIT 34.3 % (36.0-47.0); HEMOGLOBIN 11.5 g/dL (12.0-15.5); LYMPH # 1.2 x10^3/uL (1.0-4.8); LYMPH % 9 % (24-48); MEAN CORPUSCULAR HEMOGLOBIN 33 pg (25-35); MEAN CORPUSCULAR HGB CONC 34 g/dL (31-37); MEAN CORPUSCULAR VOLUME 98 fL (79-100); MONO # 0.7 x10^3/uL (0.0-1.1); MONO % 6 % (0-9); NEUT # 10.7 x10^3uL (1.8-7.7); NEUT % 83 % (31-73); PLATELET COUNT 276 x10^3/uL (140-400); RED BLOOD COUNT 3.51 x10^6/uL (3.50-5.40); RED CELL DISTRIBUTION WIDTH 14.5 % (11.5-14.5); WHITE BLOOD COUNT 12.9 x10^3/uL (4.0-11.0)
[2018-08-13 05:50] LABS: CREATININE 1.7 mg/dL (0.6-1.0); GFR 28.8; POTASSIUM 4.5 mmol/L (3.5-5.1)
[2018-08-13] MEDS: POLYETHYLENE GLYCOL 3350 17 GM PACKET. PO SCH (07:56)
[2018-08-13] MEDS: DOCUSATE 100 MG/10 ML SOLUTION. PO SCH ×2 (07:56→20:51)
[2018-08-13] MEDS: MECLIZINE HCL 12.5 MG TABLET. PO SCH ×2 (07:57→20:50)
[2018-08-13] MEDS: CITALOPRAM 20 MG TABLET. PO SCH (07:57)
[2018-08-13] MEDS: ASPIRIN RECTAL 300 MG SUPP. PR SCH (07:57)
[2018-08-13] MEDS: FAMOTIDINE 20 MG TABLET. PO SCH (07:57)
[2018-08-13] MEDS: levETIRAcetam 500 MG in IV DEXTROSE 5% 100ML 100 ML IV SCH (07:57)
[2018-08-13] MEDS: BUMETANIDE 1 MG/4 ML VIAL. IV SCH ×2 (08:04→16:11)
[2018-08-13] MEDS: INSULIN GLARGINE 300 UNITS/3 ML INSULN.PEN. SQ SCH (08:24)
--- NOTE | 2018-08-13 08:30 | PDOC ---
PULMONARY PROGRESS NOTES Subjective no response, off bipap RN c/o chest congestion Vitals Vital Signs Date Time Temp Pulse Resp B/P (MAP) Pulse Ox O2 Delivery O2 Flow Rate FiO2 08/13/18 07:40 Room Air 08/13/18 07:00 98.4 90 16 125/69 (87) 100 2.0 98.4 HEENT: Other (nc at perrl ) Lungs: Other (few rhonchi) Cardiovascular: S1, S2 Abdomen: Soft, Non-tender Extremities: No Edema Skin: Warm Labs Laboratory Tests Test 08/11/18 13:37 08/11/18 16:33 08/12/18 00:28 08/12/18 05:00 Glucose (Fingerstick) 245 mg/dL (70-99) 206 mg/dL (70-99) 182 mg/dL (70-99) Sodium Level 138 mmol/L (136-145) Potassium Level 4.9 mmol/L (3.5-5.1) Chloride Level 102 mmol/L (98-107) Carbon Dioxide Level 29 mmol/L (21-32) Anion Gap 7 (6-14) Blood Urea Nitrogen 53 mg/dL (7-20) Creatinine 2.0 mg/dL (0.6-1.0) Estimated GFR (Cockcroft-Gault) 23.9 Glucose Level 267 mg/dL (70-99) Calcium Level 9.7 mg/dL (8.5-10.1) Test 08/12/18 06:05 08/12/18 08:51 08/12/18 12:48 08/12/18 17:15 White Blood Count 11.8 x10^3/uL (4.0-11.0) Red Blood Count 3.52 x10^6/uL (3.50-5.40) Hemoglobin 11.5 g/dL (12.0-15.5) Hematocrit 34.2 % (36.0-47.0) Mean Corpuscular Volume 97 fL (79-100) Mean Corpuscular Hemoglobin 33 pg (25-35) Mean Corpuscular Hemoglobin Concent 34 g/dL (31-37) Red Cell Distribution Width 14.8 % (11.5-14.5) Platelet Count 244 x10^3/uL (140-400) Neutrophils (%) (Auto) 83 % (31-73) Lymphocytes (%) (Auto) 9 % (24-48) Monocytes (%) (Auto) 6 % (0-9) Eosinophils (%) (Auto) 1 % (0-3) Basophils (%) (Auto) 0 % (0-3) Neutrophils # (Auto) 9.8 x10^3uL (1.8-7.7) Lymphocytes # (Auto) 1.1 x10^3/uL (1.0-4.8) Monocytes # (Auto) 0.7 x10^3/uL (0.0-1.1) Eosinophils # (Auto) 0.1 x10^3/uL (0.0-0.7) Basophils # (Auto) 0.0 x10^3/uL (0.0-0.2) Glucose (Fingerstick) 286 mg/dL (70-99) 198 mg/dL (70-99) 107 mg/dL (70-99) Test 08/13/18 00:15 08/13/18 04:30 08/13/18 05:56 Glucose (Fingerstick) 173 mg/dL (70-99) 204 mg/dL (70-99) White Blood Count 12.9 x10^3/uL (4.0-11.0) Red Blood Count 3.51 x10^6/uL (3.50-5.40) Hemoglobin 11.5 g/dL (12.0-15.5) Hematocrit 34.3 % (36.0-47.0) Mean Corpuscular Volume 98 fL (79-100) Mean Corpuscular Hemoglobin 33 pg (25-35) Mean Corpuscular Hemoglobin Concent 34 g/dL (31-37) Red Cell Distribution Width 14.5 % (11.5-14.5) Platelet Count 276 x10^3/uL (140-400) Neutrophils (%) (Auto) 83 % (31-73) Lymphocytes (%) (Auto) 9 % (24-48) Monocytes (%) (Auto) 6 % (0-9) Eosinophils (%) (Auto) 2 % (0-3) Basophils (%) (Auto) 0 % (0-3) Neutrophils # (Auto) 10.7 x10^3uL (1.8-7.7) Lymphocytes # (Auto) 1.2 x10^3/uL (1.0-4.8) Monocytes # (Auto) 0.7 x10^3/uL (0.0-1.1) Eosinophils # (Auto) 0.3 x10^3/uL (0.0-0.7) Basophils # (Auto) 0.0 x10^3/uL (0.0-0.2) Sodium Level 139 mmol/L (136-145) Potassium Level 4.5 mmol/L (3.5-5.1) Chloride Level 101 mmol/L (98-107) Carbon Dioxide Level 29 mmol/L (21-32) Anion Gap 9 (6-14) Blood Urea Nitrogen 58 mg/dL (7-20) Creatinine 1.7 mg/dL (0.6-1.0) Estimated GFR (Cockcroft-Gault) 28.8 Glucose Level 196 mg/dL (70-99) Calcium Level 10.0 mg/dL (8.5-10.1) Laboratory Tests Test 08/12/18 08:51 08/12/18 12:48 08/12/18 17:15 08/13/18 00:15 Glucose (Fingerstick) 286 mg/dL (70-99) 198 mg/dL (70-99) 107 mg/dL (70-99) 173 mg/dL (70-99) Test 08/13/18 04:30 08/13/18 05:56 White Blood Count 12.9 x10^3/uL (4.0-11.0) Red Blood Count 3.51 x10^6/uL (3.50-5.40) Hemoglobin 11.5 g/dL (12.0-15.5) Hematocrit 34.3 % (36.0-47.0) Mean Corpuscular Volume 98 fL (79-100) Mean Corpuscular Hemoglobin 33 pg (25-35) Mean Corpuscular Hemoglobin Concent 34 g/dL (31-37) Red Cell Distribution Width 14.5 % (11.5-14.5) Platelet Count 276 x10^3/uL (140-400) Neutrophils (%) (Auto) 83 % (31-73) Lymphocytes (%) (Auto) 9 % (24-48) Monocytes (%) (Auto) 6 % (0-9) Eosinophils (%) (Auto) 2 % (0-3) Basophils (%) (Auto) 0 % (0-3) Neutrophils # (Auto) 10.7 x10^3uL (1.8-7.7) Lymphocytes # (Auto) 1.2 x10^3/uL (1.0-4.8) Monocytes # (Auto) 0.7 x10^3/uL (0.0-1.1) Eosinophils # (Auto) 0.3 x10^3/uL (0.0-0.7) Basophils # (Auto) 0.0 x10^3/uL (0.0-0.2) Sodium Level 139 mmol/L (136-145) Potassium Level 4.5 mmol/L (3.5-5.1) Chloride Level 101 mmol/L (98-107) Carbon Dioxide Level 29 mmol/L (21-32) Anion Gap 9 (6-14) Blood Urea Nitrogen 58 mg/dL (7-20) Creatinine 1.7 mg/dL (0.6-1.0) Estimated GFR (Cockcroft-Gault) 28.8 Glucose Level 196 mg/dL (70-99) Calcium Level 10.0 mg/dL (8.5-10.1) Glucose (Fingerstick) 204 mg/dL (70-99) Medications Active Scripts Medications Dose Route/Sig Max Daily Dose Days Date Category Doxycycline Hyclate 100 Mg Tablet 100 Mg PO BID 08/07/18 Reported Eliquis (Apixaban) 5 Mg Tablet 5 Mg PO BID 08/06/18 Reported Aspercreme 10% Cream (Trolamine Salicylate/Aloe Vera) 35.4 Gm Cream..g. 35.4 Gm TP TID PRN PRN 08/06/18 Reported Isosorbide Mononitrate Er (Isosorbide Mononitrate) 60 Mg Tab.er.24h 60 Mg PO DAILY 08/06/18 Reported Aspercreme (Lidocaine) 1 Each Adh..patch 1 Each TP DAILY 08/06/18 Reported Bumetanide 2 Mg Tablet 4 Mg PO BID 08/06/18 Reported Spironolactone 25 Mg Tablet 25 Mg PO DAILY 02/24/18 Reported Potassium Chloride 10 Meq Tablet.er 10 Meq PO DAILY 02/24/18 Reported Omeprazole 40 Mg Capsule.dr 40 Mg PO DAILY 02/24/18 Reported NITROGLYCERIN SubLingual (Nitroglycerin) 0.4 Mg Tab.subl 0.4 Mg SL PRN Q5MIN PRN 09/19/17 Reported Escitalopram Oxalate 20 Mg Tablet 1 Tab PO DAILY 09/19/17 Reported Diltiazem 24HR Cd (Diltiazem Hcl) 180 Mg Cap.er.24h 1 Cap PO DAILY 09/19/17 Reported Ascorbic Acid 500 Mg Tablet 500 Mg PO 06/29/17 Reported Multivitamins (Multivitamin) 1 Each Tablet 1 Tab PO DAILY 06/29/17 Reported Metolazone 5 Mg Tablet 5 Mg PO DAILY 05/15/17 Reported Novolog Flexpen (Insulin Aspart) 100 Unit/1 Ml Insuln.pen 10 Unit SQ TIDAC 05/15/17 Reported Tresiba Flextouch U-100 (Insulin Degludec) 100 Unit/1 Ml Insuln.pen 34 Unit SQ [id number] 03/12/17 Reported Ferrous Sulfate 325 Mg Tablet 1 Tab PO DAILY 01/04/17 Reported Dulcolax (Bisacodyl) 10 Mg Supp.rect 10 Mg RC PRN DAILY PRN 01/04/17 Reported Aspirin 325 Mg Tablet 1 Tab PO DAILY 12/28/16 Reported Metoprolol Tartrate 25 Mg Tablet 25 Tab PO BID 03/24/16 Reported Acetaminophen 500 Mg Tablet 500 Mg PO PRN Q8HRS PRN 02/16/16 Reported Meclizine Hcl 12.5 Mg Tablet 1 Tab PO BID 01/17/16 Reported Hydrocodone-Apap 5-325 (Hydrocodone Bit/Acetaminophen) 1 Each Tablet 1 Tab PO Q12HR PRN 01/17/16 Reported Stool Softener (Docusate Sodium) 100 Mg Capsule 100 Mg PO BID 05/10/13 Reported Losartan Potassium 100 Mg Tablet 50 Mg PO DAILY 05/10/13 Reported Comments MRI IMPRESSION: 1. Evidence of a new acute infarction in the region of the right thalamus, and possibly posterior right internal capsule and medial left thalamus. 2. Left temporal infarction changes are again seen. There may be a new tiny focus of acute infarction in the anterior left temporal lobe. 3. Otherwise, severe motion degradation limits the usefulness of this exam. Impression . 1. Acute metabolic encephalopathy due to new acute infarction in the region of the right thalamus, and possibly posterior right internal capsule and medial left thalamus. ABGs showed no evidence of any hypercapnia. 2. Acute stroke with extension. 3. Johnny-Silva breathing pattern related to her stroke. Ejection fraction was normal. Now resolved 3. No significant history of tobacco use. 4. Chest x-ray slightly abnormal on admission with mildly prominent interstitial markings, could be mild neurogenic edema. Plan . 1. off BiPAP 2. DNR and DNI. 3. May consider hospice 4. Avoid any narcotics. 6. palliative care following, poor prognosis 7. CXR with mild Interstitial infiltrate, try lasix discussed w OPAL Lugo MD Aug 13, 2018 08:30
--- NOTE | 2018-08-13 10:47 | PDOC ---
PROGRESS NOTES Chief Complaint Chief Complaint Acute CVA w/ dysarthria/confusion New rigth sided CVA with thalamus involvement. MRI showed Evidence of a new acute infarction in the region of the right thalamus, and possibly posterior right internal capsule and medial left thalamus. Left temporal infarction changes are again seen. There may be a new tiny focus of acute infarction in the anterior left temporal lobe. Elevated troponin 0.385low concern for cardiac etiology suspect CVA and renal insufficiency contributing Recent mechanical Fall: no significant traumatic injury Recent Coumadin induced coagulopathy, transitioned to eliquis Cervical/lumbar stenosis with chronic L RTC tear Chronic A FIB CAD: past stents HTN HLP CKD3 acute on chronic insufficiency, will try diuresing in light of physical exam and supporting pfindings on xray with vascular congestion Plan: follow recommendations from neurology pharmacy consultant EEG done early in the day will follow results congestion on physical exam, x ray noted, will give Bumex BID supportive measures further recommendations based on clinical course. improving over the last 24 hours History of Present Illness History of Present Illness Patient more responsive today compared to yesterday. 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 ) Skin: No breakdown, No significant lesion, Other (Biloxi indurated b/l lower extremities ) Labs LABS Laboratory Tests Test 08/12/18 12:48 08/12/18 17:15 08/13/18 00:15 08/13/18 04:30 Glucose (Fingerstick) 198 mg/dL (70-99) 107 mg/dL (70-99) 173 mg/dL (70-99) White Blood Count 12.9 x10^3/uL (4.0-11.0) Red Blood Count 3.51 x10^6/uL (3.50-5.40) Hemoglobin 11.5 g/dL (12.0-15.5) Hematocrit 34.3 % (36.0-47.0) Mean Corpuscular Volume 98 fL (79-100) Mean Corpuscular Hemoglobin 33 pg (25-35) Mean Corpuscular Hemoglobin Concent 34 g/dL (31-37) Red Cell Distribution Width 14.5 % (11.5-14.5) Platelet Count 276 x10^3/uL (140-400) Neutrophils (%) (Auto) 83 % (31-73) Lymphocytes (%) (Auto) 9 % (24-48) Monocytes (%) (Auto) 6 % (0-9) Eosinophils (%) (Auto) 2 % (0-3) Basophils (%) (Auto) 0 % (0-3) Neutrophils # (Auto) 10.7 x10^3uL (1.8-7.7) Lymphocytes # (Auto) 1.2 x10^3/uL (1.0-4.8) Monocytes # (Auto) 0.7 x10^3/uL (0.0-1.1) Eosinophils # (Auto) 0.3 x10^3/uL (0.0-0.7) Basophils # (Auto) 0.0 x10^3/uL (0.0-0.2) Sodium Level 139 mmol/L (136-145) Potassium Level 4.5 mmol/L (3.5-5.1) Chloride Level 101 mmol/L (98-107) Carbon Dioxide Level 29 mmol/L (21-32) Anion Gap 9 (6-14) Blood Urea Nitrogen 58 mg/dL (7-20) Creatinine 1.7 mg/dL (0.6-1.0) Estimated GFR (Cockcroft-Gault) 28.8 Glucose Level 196 mg/dL (70-99) Calcium Level 10.0 mg/dL (8.5-10.1) Test 08/13/18 05:56 Glucose (Fingerstick) 204 mg/dL (70-99) Assessment and Plan Assessmemt and Plan Problems Medical Problems: (1) Change in mental status Status: Acute Comment Review of Relevant I have reviewed the following items alejandra (where applicable) has been applied. Labs Laboratory Tests Test 08/11/18 13:37 08/11/18 16:33 08/12/18 00:28 08/12/18 05:00 Glucose (Fingerstick) 245 mg/dL (70-99) 206 mg/dL (70-99) 182 mg/dL (70-99) Sodium Level 138 mmol/L (136-145) Potassium Level 4.9 mmol/L (3.5-5.1) Chloride Level 102 mmol/L (98-107) Carbon Dioxide Level 29 mmol/L (21-32) Anion Gap 7 (6-14) Blood Urea Nitrogen 53 mg/dL (7-20) Creatinine 2.0 mg/dL (0.6-1.0) Estimated GFR (Cockcroft-Gault) 23.9 Glucose Level 267 mg/dL (70-99) Calcium Level 9.7 mg/dL (8.5-10.1) Test 08/12/18 06:05 08/12/18 08:51 08/12/18 12:48 08/12/18 17:15 White Blood Count 11.8 x10^3/uL (4.0-11.0) Red Blood Count 3.52 x10^6/uL (3.50-5.40) Hemoglobin 11.5 g/dL (12.0-15.5) Hematocrit 34.2 % (36.0-47.0) Mean Corpuscular Volume 97 fL (79-100) Mean Corpuscular Hemoglobin 33 pg (25-35) Mean Corpuscular Hemoglobin Concent 34 g/dL (31-37) Red Cell Distribution Width 14.8 % (11.5-14.5) Platelet Count 244 x10^3/uL (140-400) Neutrophils (%) (Auto) 83 % (31-73) Lymphocytes (%) (Auto) 9 % (24-48) Monocytes (%) (Auto) 6 % (0-9) Eosinophils (%) (Auto) 1 % (0-3) Basophils (%) (Auto) 0 % (0-3) Neutrophils # (Auto) 9.8 x10^3uL (1.8-7.7) Lymphocytes # (Auto) 1.1 x10^3/uL (1.0-4.8) Monocytes # (Auto) 0.7 x10^3/uL (0.0-1.1) Eosinophils # (Auto) 0.1 x10^3/uL (0.0-0.7) Basophils # (Auto) 0.0 x10^3/uL (0.0-0.2) Glucose (Fingerstick) 286 mg/dL (70-99) 198 mg/dL (70-99) 107 mg/dL (70-99) Test 08/13/18 00:15 08/13/18 04:30 08/13/18 05:56 Glucose (Fingerstick) 173 mg/dL (70-99) 204 mg/dL (70-99) White Blood Count 12.9 x10^3/uL (4.0-11.0) Red Blood Count 3.51 x10^6/uL (3.50-5.40) Hemoglobin 11.5 g/dL (12.0-15.5) Hematocrit 34.3 % (36.0-47.0) Mean Corpuscular Volume 98 fL (79-100) Mean Corpuscular Hemoglobin 33 pg (25-35) Mean Corpuscular Hemoglobin Concent 34 g/dL (31-37) Red Cell Distribution Width 14.5 % (11.5-14.5) Platelet Count 276 x10^3/uL (140-400) Neutrophils (%) (Auto) 83 % (31-73) Lymphocytes (%) (Auto) 9 % (24-48) Monocytes (%) (Auto) 6 % (0-9) Eosinophils (%) (Auto) 2 % (0-3) Basophils (%) (Auto) 0 % (0-3) Neutrophils # (Auto) 10.7 x10^3uL (1.8-7.7) Lymphocytes # (Auto) 1.2 x10^3/uL (1.0-4.8) Monocytes # (Auto) 0.7 x10^3/uL (0.0-1.1) Eosinophils # (Auto) 0.3 x10^3/uL (0.0-0.7) Basophils # (Auto) 0.0 x10^3/uL (0.0-0.2) Sodium Level 139 mmol/L (136-145) Potassium Level 4.5 mmol/L (3.5-5.1) Chloride Level 101 mmol/L (98-107) Carbon Dioxide Level 29 mmol/L (21-32) Anion Gap 9 (6-14) Blood Urea Nitrogen 58 mg/dL (7-20) Creatinine 1.7 mg/dL (0.6-1.0) Estimated GFR (Cockcroft-Gault) 28.8 Glucose Level 196 mg/dL (70-99) Calcium Level 10.0 mg/dL (8.5-10.1) Laboratory Tests Test 08/12/18 12:48 08/12/18 17:15 08/13/18 00:15 08/13/18 04:30 Glucose (Fingerstick) 198 mg/dL (70-99) 107 mg/dL (70-99) 173 mg/dL (70-99) White Blood Count 12.9 x10^3/uL (4.0-11.0) Red Blood Count 3.51 x10^6/uL (3.50-5.40) Hemoglobin 11.5 g/dL (12.0-15.5) Hematocrit 34.3 % (36.0-47.0) Mean Corpuscular Volume 98 fL (79-100) Mean Corpuscular Hemoglobin 33 pg (25-35) Mean Corpuscular Hemoglobin Concent 34 g/dL (31-37) Red Cell Distribution Width 14.5 % (11.5-14.5) Platelet Count 276 x10^3/uL (140-400) Neutrophils (%) (Auto) 83 % (31-73) Lymphocytes (%) (Auto) 9 % (24-48) Monocytes (%) (Auto) 6 % (0-9) Eosinophils (%) (Auto) 2 % (0-3) Basophils (%) (Auto) 0 % (0-3) Neutrophils # (Auto) 10.7 x10^3uL (1.8-7.7) Lymphocytes # (Auto) 1.2 x10^3/uL (1.0-4.8) Monocytes # (Auto) 0.7 x10^3/uL (0.0-1.1) Eosinophils # (Auto) 0.3 x10^3/uL (0.0-0.7) Basophils # (Auto) 0.0 x10^3/uL (0.0-0.2) Sodium Level 139 mmol/L (136-145) Potassium Level 4.5 mmol/L (3.5-5.1) Chloride Level 101 mmol/L (98-107) Carbon Dioxide Level 29 mmol/L (21-32) Anion Gap 9 (6-14) Blood Urea Nitrogen 58 mg/dL (7-20) Creatinine 1.7 mg/dL (0.6-1.0) Estimated GFR (Cockcroft-Gault) 28.8 Glucose Level 196 mg/dL (70-99) Calcium Level 10.0 mg/dL (8.5-10.1) Test 08/13/18 05:56 Glucose (Fingerstick) 204 mg/dL (70-99) Microbiology 08/06/18 Blood Culture - Final, Complete NO GROWTH AFTER 5 DAYS Medications Current Medications Sodium Chloride 500 ml @ 500 mls/hr 1X ONCE IV Last administered on 08/06/18 16:21; Start 08/06/18 at 16:00; Stop 08/06/18 at 16:59; Status DC Ondansetron HCl (Zofran) 4 mg PRN Q6HRS PRN IV NAUSEA/VOMITING; Start 08/06/18 at 18:15 Morphine Sulfate (Morphine Sulfate) 1 mg PRN Q1HR PRN IV PAIN; Start 08/06/18 at 18:15 Lactulose (Lactulose) 20 gm PRN Q12HR PRN PO CONSTIPATION, 2ND CHOICE; Start at 18:15 Heparin Sodium (Porcine) (Heparin Sodium) 5,000 unit Q12HR SQ ; Start 08/06/18 at 21:00; Stop 08/06/18 at 21:00; Status DC Ascorbic Acid (Vitamin C) 500 mg DAILY PO Last administered on 08/08/18 08:57; Start 08/07/18 at 09:00; Stop 08/12/18 at 16:59; Status DC Aspirin (Derek Aspirin) 325 mg DAILY PO Last administered on 08/08/18 08:56; Start 08/07/18 at 09:00; Stop 08/08/18 at 15:05; Status DC Calcium/Vitamin D (Oscal D 500mg/ 200uts) 1 tab DAILY PO Last administered on 08:57; Start 08/07/18 at 09:00; Stop 08/12/18 at 16:59; Status DC Docusate Sodium (Colace) 100 mg BID PO Last administered on 08/10/18 20:50; Start 08/06/18 at 21:00; Stop 08/12/18 at 20:37; Status DC Ferrous Sulfate (Feosol) 325 mg DAILY PO Last administered on 08/08/18 08:56; Start 08/07/18 at 09:00; Stop 08/12/18 at 16:59; Status DC Acetaminophen/ Hydrocodone Bitart (Lortab 5/325) 1 tab PRN Q12HRS PRN PO MODERATE PAIN Last administered on 08/08/18 02:32; Start 08/06/18 at 18:15 Metoprolol Tartrate (Lopressor) 25 mg BID PO Last administered on 08/08/18 08: 57; Start 08/06/18 at 21:00; Stop 08/09/18 at 19:16; Status DC Nitroglycerin (Nitrostat) 0.4 mg PRN Q5MIN PRN SL CHEST PAIN; Start 08/06/18 at 18:15 Oxycodone/ Acetaminophen (Percocet 5/325) 1 tab PRN Q6HRS PRN PO SEVERE PAIN Last administered on 08/07/18 21:12; Start 08/06/18 at 18:15 Potassium Chloride (Klor-Con) 10 meq DAILY PO Last administered on 08/08/18 08: 56; Start 08/07/18 at 09:00; Stop 08/12/18 at 16:59; Status DC Acetaminophen (Tylenol) 500 mg PRN Q8HRS PRN PO MILD PAIN / TEMP Last administered on 08/07/18 14:07; Start 08/06/18 at 19:00; Stop 08/08/18 at 14:52; Status DC Bisacodyl (Dulcolax Supp) 10 mg PRN DAILY PRN ID CONSTIPATION Last administered on 08/12/18 17:29; Start 08/06/18 at 19:00 Diltiazem HCl (Cardizem 24hr Cd) 180 mg DAILY PO Last administered on 08/08/18 08:56; Start 08/07/18 at 09:00; Stop 08/09/18 at 11:49; Status DC Citalopram Hydrobromide (CeleXA) 40 mg DAILY PO Last administered on 08/13/18 07:57; Start 08/07/18 at 09:00 Insulin Human Lispro (HumaLOG) 10 units TIDWMEALS SQ Last administered on 12:51; Start 08/06/18 at 19:30; Stop 08/12/18 at 16:59; Status DC Insulin Glargine (Lantus) 34 units DAILYWBKFT SQ Last administered on 08/13/18 08:24; Start 08/07/18 at 08:00 Losartan Potassium (Cozaar) 50 mg DAILY PO Last administered on 08/07/18 09:26 ; Start 08/07/18 at 09:00; Stop 08/08/18 at 07:30; Status DC Magnesium Hydroxide (Milk Of Magnesia) 2,400 mg PRN DAILY PRN PO CONSTIPATION, 1ST CHOICE; Start 08/06/18 at 19:00 Meclizine HCl (Antivert) 12.5 mg BID PO Last administered on 08/13/18 07:57; Start 08/06/18 at 21:00 Metolazone (Zaroxolyn) 5 mg DAILY PO Last administered on 08/07/18 09:23; Start 08/07/18 at 09:00; Stop 08/07/18 at 10:37; Status DC Multivitamins (Thera M Plus) 1 tab DAILY PO Last administered on 08/08/18 08:57 ; Start 08/07/18 at 09:00; Stop 08/12/18 at 16:59; Status DC Pantoprazole Sodium (Protonix) 40 mg DAILYAC PO Last administered on 08/09/18 09:28; Start 08/07/18 at 07:30; Stop 08/12/18 at 16:59; Status DC Polyethylene Glycol (miraLAX PACKET) 17 gm DAILY PO Last administered on 07:56; Start 08/07/18 at 09:00 Famotidine (Pepcid) 20 mg DAILY PO Last administered on 08/13/18 07:57; Start 08/07/18 at 09:00 Spironolactone (Aldactone) 25 mg DAILY PO Last administered on 08/07/18 09:27; Start 08/07/18 at 09:00; Stop 08/08/18 at 12:43; Status DC Warfarin Sodium (Coumadin) 5 mg DAILY16 PO ; Start 08/06/18 at 19:30; Stop at 20:46; Status DC Warfarin Sodium (Coumadin Per Physician) 1 each PRN DAILY PRN MC SEE COMMENTS; Start 08/06/18 at 19:00; Stop 08/06/18 at 20:46; Status DC Bumetanide (Bumex) 4 mg BID94 PO Last administered on 08/07/18at 09:23; Start 08/07/18 at 09:00; Stop 08/07/18 at 10:33; Status DC Isosorbide Mononitrate (Imdur) 60 mg DAILY PO Last administered on 08/07/18at 09: 27; Start 08/07/18 at 09:00; Stop 08/08/18 at 07:30; Status DC Non-Formulary Medication (Lidocaine (Aspercreme)) 1 each DAILY TP ; Start at 09:00; Status UNV Non-Formulary Medication (Omeprazole ) 40 mg DAILY PO ; Start 08/07/18 at 09:00; Status UNV Multi-Ingredient Ointment (Analgesic Vallecitos) 1 marisol PRN TID PRN TP MUSCLE PAIN; Start 08/06/18 at 20:45; Stop 08/06/18 at 20:45; Status DC Mirtazapine (Remeron) 7.5 mg QHS PO Last administered on 08/12/18at 21:25; Start 08/06/18 at 21:00 Multi-Ingredient Ointment (Analgesic Vallecitos) 1 marisol PRN TID PRN TP MUSCLE PAIN Last administered on 08/06/18at 22:17; Start 08/06/18 at 20:45 Apixaban (Eliquis) 5 mg BID PO Last administered on 08/08/18at 08:57; Start at 21:00; Stop 08/08/18 at 13:15; Status DC Info (Anti-Coagulation Monitoring By Pharmacy) 1 each PRN DAILY PRN MC SEE COMMENTS Last administered on 08/08/18at 13:22; Start 08/06/18 at 21:00 Acetaminophen (Tylenol) 650 mg PRN Q6HRS PRN PO TEMP > 100.4F; Start 08/07/18 at 09:00 Acetaminophen (Tylenol Supp) 650 mg PRN Q4HRS PRN ID TEMP > 100.4F; Start at 09:00 Bumetanide (Bumex) 2 mg BID94 PO ; Start 08/07/18 at 16:00; Stop 08/08/18 at 12:43 ; Status DC Losartan Potassium (Cozaar) 50 mg NOON PO ; Start 08/08/18 at 12:00; Stop at 11:49; Status DC Naloxone HCl (Narcan) 0.4 mg 1X ONCE IV Last administered on 08/08/18at 10:47; Start 08/08/18 at 11:30; Stop 08/08/18 at 11:31; Status DC Atorvastatin Calcium (Lipitor) 40 mg QHS PO Last administered on 08/12/18at 21:25 ; Start 08/08/18 at 21:00 Levetiracetam 500 mg/Dextrose 105 ml @ 420 mls/hr Q12HR IV Last administered on 08/13/18at 07:57; Start 08/08/18 at 12:00 Apixaban (Eliquis) 2.5 mg BID PO ; Start 08/08/18 at 21:00; Stop 08/08/18 at 21:00 ; Status DC Enoxaparin Sodium (Lovenox 40mg Syringe) 40 mg Q24H SQ Last administered on 08/09at 18:37; Start 08/08/18 at 16:00; Stop 08/10/18 at 10:12; Status DC Metoprolol Tartrate (Lopressor Vial) 5 mg PRN Q6HRS PRN IVP HYPERTENSION, SEE COMMENTS; Start 08/08/18 at 15:45; Stop 08/08/18 at 17:09; Status DC Metoprolol Tartrate (Lopressor Vial) 5 mg Q6HRS IVP Last administered on at 05:57; Start 08/08/18 at 18:00 Dextrose (Dextrose 50%-Water Syringe) 25 gm STK-MED ONCE IV ; Start 08/08/18 at 17:25; Stop 08/08/18 at 17:26; Status DC Dextrose (Dextrose 50%-Water Syringe) 25 gm STK-MED ONCE IV ; Start 08/08/18 at 21:40; Stop 08/08/18 at 21:41; Status DC Dextrose (Dextrose 50%-Water Syringe) 12.5 gm PRN Q15MIN PRN IV SEE COMMENTS Last administered on 08/08/18at 21:45; Start 08/08/18 at 21:45 Dextrose (Dextrose 50%-Water Syringe) 25 gm STK-MED ONCE IV ; Start 08/08/18 at 18:00; Stop 08/09/18 at 08:52; Status DC Digoxin (Lanoxin) 250 mcg PRN DAILY PRN IV SEE COMMENTS; Start 08/09/18 at 12:00 Enoxaparin Sodium (Lovenox 30mg Syringe) 30 mg Q24H SQ Last administered on 08/12at 16:17; Start 08/10/18 at 16:00 Bumetanide (Bumex) 1 mg BID92 IV Last administered on 08/13/18at 08:04; Start 08/12/18 at 10:00 Furosemide (Lasix) 20 mg 1X ONCE IVP ; Start 08/12/18 at 12:00; Stop 08/12/18 at 12:21; Status DC Aspirin (Aspirin) 300 mg DAILY ID Last administered on 08/13/18at 07:57; Start at 09:00 Insulin Human Lispro (HumaLOG) 0-7 UNITS TIDWMEALS SQ ; Start 08/12/18 at 17:00; Stop 08/12/18 at 17:18; Status DC Dextrose (Dextrose 50%-Water Syringe) 12.5 gm PRN Q15MIN PRN IV SEE COMMENTS; Start 08/12/18 at 17:00 Insulin Human Lispro (HumaLOG) 0-7 UNITS Q6HRS SQ Last administered on at 06:01; Start 08/12/18 at 18:00 Docusate Sodium (Colace Solution) 100 mg BID PO Last administered on 08/13/18at 07:56; Start 08/12/18 at 20:37 Active Scripts Active Reported Doxycycline Hyclate 100 Mg Tablet 100 Mg PO BID Eliquis (Apixaban) 5 Mg Tablet 5 Mg PO BID Aspercreme 10% Cream (Trolamine Salicylate/Aloe Vera) 35.4 Gm Cream..g. 35.4 Gm TP TID PRN PRN Isosorbide Mononitrate Er (Isosorbide Mononitrate) 60 Mg Tab.er.24h 60 Mg PO DAILY Aspercreme (Lidocaine) 1 Each Adh..patch 1 Each TP DAILY Bumetanide 2 Mg Tablet 4 Mg PO BID Spironolactone 25 Mg Tablet 25 Mg PO DAILY Potassium Chloride 10 Meq Tablet.er 10 Meq PO DAILY Omeprazole 40 Mg Capsule.dr 40 Mg PO DAILY NITROGLYCERIN SubLingual (Nitroglycerin) 0.4 Mg Tab.subl 0.4 Mg SL PRN Q5MIN PRN Escitalopram Oxalate 20 Mg Tablet 1 Tab PO DAILY Diltiazem 24HR Cd (Diltiazem Hcl) 180 Mg Cap.er.24h 1 Cap PO DAILY Ascorbic Acid 500 Mg Tablet 500 Mg PO Multivitamins (Multivitamin) 1 Each Tablet 1 Tab PO DAILY Metolazone 5 Mg Tablet 5 Mg PO DAILY Novolog Flexpen (Insulin Aspart) 100 Unit/1 Ml Insuln.pen 10 Unit SQ TIDAC Tresiba Flextouch U-100 (Insulin Degludec) 100 Unit/1 Ml Insuln.pen 34 Unit SQ DAILYWBKFT Ferrous Sulfate 325 Mg Tablet 1 Tab PO DAILY Dulcolax (Bisacodyl) 10 Mg Supp.rect 10 Mg RC PRN DAILY PRN Aspirin 325 Mg Tablet 1 Tab PO DAILY Metoprolol Tartrate 25 Mg Tablet 25 Tab PO BID Acetaminophen 500 Mg Tablet 500 Mg PO PRN Q8HRS PRN Meclizine Hcl 12.5 Mg Tablet 1 Tab PO BID Hydrocodone-Apap 5-325 (Hydrocodone Bit/Acetaminophen) 1 Each Tablet 1 Tab PO Q12HR PRN Stool Softener (Docusate Sodium) 100 Mg Capsule 100 Mg PO BID Losartan Potassium 100 Mg Tablet 50 Mg PO DAILY Vitals/I & O Vital Sign - Last 24 Hours 08/12/18 08/12/18 08/12/18 08/12/18 11:00 12:00 12:15 12:16 Pulse 79 88 Resp 22 22 B/P (MAP) 148/69 (95) 143/68 (93) Pulse Ox 99 99 O2 Delivery Room Air Room Air Room Air O2 Flow Rate 21.0 08/12/18 08/12/18 08/12/18 08/12/18 12:50 13:07 15:35 16:00 Temp 98.3 98.3 Pulse 88 82 86 Resp 22 B/P (MAP) 143/68 124/71 (88) 119/54 (75) Pulse Ox 99 99 O2 Delivery Room Air Room Air Room Air 08/12/18 08/12/18 08/12/18 08/12/18 16:00 17:00 17:29 18:00 Pulse 83 70 70 97 Resp 22 16 22 B/P (MAP) 179/70 (106) 159/71 (100) 159/71 110/58 (75) Pulse Ox 99 100 99 O2 Delivery Room Air Room Air Room Air 08/12/18 08/12/18 08/12/18 08/12/18 19:00 20:01 20:05 21:04 Temp 97.4 97.4 Pulse 83 103 92 Resp 20 20 17 B/P (MAP) 100/54 (69) 105/61 (76) 141/75 (97) Pulse Ox 99 99 100 O2 Delivery Room Air Room Air Room Air Room Air 08/12/18 08/13/18 08/13/18 08/13/18 22:05 00:00 00:00 00:16 Temp 97.9 97.9 Pulse 78 75 90 Resp 17 7 B/P (MAP) 160/89 (112) 112/68 (83) 112/65 Pulse Ox 99 100 O2 Delivery Room Air Nasal Cannula Nasal Cannula O2 Flow Rate 2.0 2.0 08/13/18 08/13/18 08/13/18 08/13/18 01:00 02:00 03:00 04:17 Pulse 86 90 94 Resp 15 20 20 B/P (MAP) 113/50 (71) 97/60 (72) 114/50 (71) Pulse Ox 100 94 100 O2 Delivery Nasal Cannula Nasal Cannula Nasal Cannula Nasal Cannula O2 Flow Rate 2.0 2.0 2.0 2.0 08/13/18 08/13/18 08/13/18 08/13/18 04:18 05:00 05:57 06:04 Temp 98.0 98.0 Pulse 76 97 99 88 Resp 20 16 19 B/P (MAP) 146/65 (92) 154/67 (96) 154/67 149/109 (122) Pulse Ox 96 100 99 O2 Delivery Nasal Cannula Nasal Cannula Nasal Cannula O2 Flow Rate 2.0 2.0 2.0 08/13/18 08/13/18 08/13/18 08/13/18 07:00 07:40 08:00 09:00 Temp 98.4 98.4 Pulse 90 79 87 Resp 16 16 16 B/P (MAP) 125/69 (87) 121/61 (81) 135/51 (79) Pulse Ox 100 100 100 O2 Delivery Nasal Cannula Room Air Room Air Room Air O2 Flow Rate 2.0 08/13/18 10:00 Pulse 95 Resp 16 B/P (MAP) 119/51 (73) Pulse Ox 100 O2 Delivery Room Air Intake and Output 08/12/18 08/12/18 08/13/18 14:59 22:59 06:59 Intake Total 200 ml 537 ml 1100 ml Output Total 560 ml 465 ml 800 ml Balance -360 ml 72 ml 300 ml WILLY VINCENT MD Aug 13, 2018 10:47
--- NOTE | 2018-08-13 11:45 | NUR ---
pt transported per bed to room 672. nih stroke scale done at bedside with alvaro selby. Jessie, daughter, at bedside when pt arrived to room.
--- NOTE | 2018-08-13 13:12 | NUR ---
SS following up with discharge planning. SS discussed with palliative care RN. Palliative care requested SS send referral to [facility], ; fax [phone]. SS phoned and faxed referral to [facility]. Pt is accepted at [facility] at this time. Palliative care RN notified.
--- NOTE | 2018-08-13 15:00 | NUR ---
Wound Care: Wound care consult for gluteal cleft wound and L FA skin tear. Intertrigo to buttocks area. Calazime cream applied to buttocks, left VANDANA. Left FA skin tear cleaned and covered with contact layer and foam, recommend to change every 3 days. No other wounds noted on full skin inspection. PT/OT at bedside to work with pt. WC will continue to follow for possible changes.
--- NOTE | 2018-08-13 15:38 | PDOC2 ---
PALLIATIVE CARE Palliative Care Note Palliative Care Patient not responding to verbal stimuli. Spoke with dtr. Arora Plan family meeting tomorrow at 1400 OSIEL FERRO Aug 13, 2018 15:38
[2018-08-13] MEDS: ENOXAPARIN 30 MG/0.3 ML SYRINGE. SQ SCH (16:12)
--- NOTE | 2018-08-13 18:26 | PDOC ---
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 Recent temporal lobe stroke with aphasia, receptive and expressive components. 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 Cardioembolic phenomenon. The combination of bilateral infarcts, although each is fairly small and non- life-threatening, has rendered her in a near-comatose state. She is slowly improving. Metabolic encephalopathy. Respiratory distress. AFib. Hyperglycemia. Renal failure. DM. HTN. HLD. CHF. Obesity. Old superior L2 compression fracture, advanced degenerative disc disease L5-S1 , severe spinal stenosis L4-5, right greater than left L5-S1 neural foramina compromise, mild to moderate narrowing of the L5-S1 neural foramen, minimal narrowing of the left L5-S1 and L3-4 neural foramina, grade 1 anterior spondylolisthesis at L4-5, negligible anterior spondylolisthesis at L5-S1. There is facet degenerative change greater inferiorly of the lumbar spine. Cervical spondylosis: degenerative disc disease at C4-C7. Poor prognosis. RECOMMENDATIONS/PLAN: ASA 300 mg rectal daily at the present time. Statin HS. Treat medical diseases. Continue Keppra at the present time. Palliative care consulted. Discussed with her son-in-law in detail at bedside on 08/13/18. Past Medical History Cardiovascular: AFIB, CAD, CHF, HTN, Hyperlipidemia, Other ( endocarditis, deep vein thrombosis) Pulmonary: Pulmonary embolus, Pneumonia GI: Constipation, GERD, Other ( diarrhea) Heme/Onc: Anemia NOS, Other ( easy bruising) Psych: Depression Musculoskeletal: low back pain Endocrine: Diabetes Past Surgical History Appendectomy, Cholecystectomy, Cataract Removal, Total knee replacement ( bilateral), Tonsillectomy ( adenoids), Other ( coronary stents, left leg vein stripping, cardiac catheterization, right knee incision and drainage) Family History CAD Social History , lives in assisted living, no alcohol or tobacco Allergies Coded Allergies: Iodinated Contrast- Oral and IV Dye (Verified Allergy, Severe, Anaphylaxis , 07/19/17) adhesive tape (Verified Allergy, Intermediate, 07/19/17) I S O L A T I O N *CONTACT* (Verified Allergy, Unknown, 07/19/17) mrsa meperidine (Verified Adverse Reaction, Intermediate, Vomiting, 07/19/17) ROS Negative for fever, chills, weight loss, shortness of breath, chest pain, indigestion, hematochezia, melena, and dysuria. Full 14-point review of systems is negative. MEDICATIONS: Refer to [facility] PHYSICAL EXAMINATION: General appearance in subacute distress. HEENT: Normocephalic and nontraumatic. Eyes, nose, ears, and throat are unremarkable. Hearing decrease. Neck is supple. No lymphadenopathy. No Crepitus. Cardiovascular: S1, S2, irregular rate and rhythm. Pulmonary: Decreased to auscultation bilaterally. Abdomen: Bowel sounds are positive. Extremities: Edema and ecchymoses noted. No restriction of range of motion, but mo active movements noted. NEUROLOGICAL EXAMINATION: Eyes closed. Unresponsiveness to verbal stimuli. Not oriented to time, place and person. PERRL. EOMI not elicited. CN: Not able to access due to not follow commands. Muscle tone: Decreased. Muscle strength: Minimal movements to stimuli. DTR: 1 Plantar reflex: Neutral response bilaterally Gait: not able to walk. Sensory exam: Minimal movements to stimuli. Not able to access cerebellar signs. F-T-N test not performed due to not follow commands. Objective Objective Vital Signs Date Time Temp Pulse Resp B/P (MAP) Pulse Ox O2 Delivery O2 Flow Rate FiO2 08/13/18 14:38 81 17 131/72 (91) 96 Room Air 08/13/18 07:00 98.4 2.0 98.4 Intake and Output 08/13/18 07:00 Intake Total 1837 ml Output Total 1795 ml Balance 42 ml Intake Oral 0 ml IV Total 205 ml Tube Feeding 1232 ml Other 400 ml Output Urine Total 1795 ml Vitals Signs Vitals VS - Last 72 Hours, by Label Date Time Temp Pulse Resp B/P (MAP) Pulse Ox O2 Delivery O2 Flow Rate FiO2 08/13/18 14:38 81 17 131/72 (91) 96 Room Air 08/13/18 12:37 106 08/13/18 11:00 98 16 125/76 (92) 100 Room Air 08/13/18 10:00 95 16 119/51 (73) 100 Room Air 08/13/18 09:00 87 16 135/51 (79) 100 Room Air 08/13/18 08:00 79 16 121/61 (81) 100 Room Air 08/13/18 07:40 Room Air 08/13/18 07:00 98.4 90 16 125/69 (87) 100 Nasal Cannula 2.0 98.4 08/13/18 06:04 88 19 149/109 (122) 99 Nasal Cannula 2.0 08/13/18 05:57 99 154/67 08/13/18 05:00 97 16 154/67 (96) 100 Nasal Cannula 2.0 08/13/18 04:18 98.0 76 20 146/65 (92) 96 Nasal Cannula 2.0 98.0 08/13/18 04:17 Nasal Cannula 2.0 08/13/18 03:00 94 20 114/50 (71) 100 Nasal Cannula 2.0 08/13/18 02:00 90 20 97/60 (72) 94 Nasal Cannula 2.0 08/13/18 01:00 86 15 113/50 (71) 100 Nasal Cannula 2.0 08/13/18 00:16 90 112/65 08/13/18 00:00 97.9 75 7 112/68 (83) 100 Nasal Cannula 2.0 97.9 08/13/18 00:00 Nasal Cannula 2.0 08/12/18 22:05 78 17 160/89 (112) 99 Room Air 08/12/18 21:04 92 17 141/75 (97) 100 Room Air 08/12/18 20:05 97.4 103 20 105/61 (76) 99 Room Air 97.4 08/12/18 20:01 Room Air 08/12/18 19:00 83 20 100/54 (69) 99 Room Air 08/12/18 18:00 97 22 110/58 (75) 99 Room Air 08/12/18 17:29 70 159/71 08/12/18 17:00 70 16 159/71 (100) 100 Room Air 08/12/18 16:00 83 22 179/70 (106) 99 Room Air 08/12/18 16:00 Room Air 08/12/18 15:35 98.3 86 119/54 (75) 99 Room Air 98.3 08/12/18 13:07 82 22 124/71 (88) 99 Room Air 08/12/18 12:50 88 143/68 08/12/18 12:16 Room Air 08/12/18 12:15 21.0 08/12/18 12:00 88 22 143/68 (93) 99 Room Air 08/12/18 11:00 79 22 148/69 (95) 99 Room Air 08/12/18 10:00 92 22 153/83 (106) 99 Room Air 08/12/18 09:00 84 22 133/64 (87) 99 Room Air 08/12/18 08:00 21.0 08/12/18 08:00 97 22 134/74 (94) 99 Room Air 08/12/18 08:00 Room Air 08/12/18 07:00 98.3 83 22 138/80 (99) 99 Room Air 98.3 Laboratory Laboratory Laboratory Tests Test 08/13/18 00:15 08/13/18 04:30 08/13/18 05:56 08/13/18 12:15 Glucose (Fingerstick) 173 mg/dL (70-99) 204 mg/dL (70-99) 285 mg/dL (70-99) White Blood Count 12.9 x10^3/uL (4.0-11.0) Red Blood Count 3.51 x10^6/uL (3.50-5.40) Hemoglobin 11.5 g/dL (12.0-15.5) Hematocrit 34.3 % (36.0-47.0) Mean Corpuscular Volume 98 fL (79-100) Mean Corpuscular Hemoglobin 33 pg (25-35) Mean Corpuscular Hemoglobin Concent 34 g/dL (31-37) Red Cell Distribution Width 14.5 % (11.5-14.5) Platelet Count 276 x10^3/uL (140-400) Neutrophils (%) (Auto) 83 % (31-73) Lymphocytes (%) (Auto) 9 % (24-48) Monocytes (%) (Auto) 6 % (0-9) Eosinophils (%) (Auto) 2 % (0-3) Basophils (%) (Auto) 0 % (0-3) Neutrophils # (Auto) 10.7 x10^3uL (1.8-7.7) Lymphocytes # (Auto) 1.2 x10^3/uL (1.0-4.8) Monocytes # (Auto) 0.7 x10^3/uL (0.0-1.1) Eosinophils # (Auto) 0.3 x10^3/uL (0.0-0.7) Basophils # (Auto) 0.0 x10^3/uL (0.0-0.2) Sodium Level 139 mmol/L (136-145) Potassium Level 4.5 mmol/L (3.5-5.1) Chloride Level 101 mmol/L (98-107) Carbon Dioxide Level 29 mmol/L (21-32) Anion Gap 9 (6-14) Blood Urea Nitrogen 58 mg/dL (7-20) Creatinine 1.7 mg/dL (0.6-1.0) Estimated GFR (Cockcroft-Gault) 28.8 Glucose Level 196 mg/dL (70-99) Calcium Level 10.0 mg/dL (8.5-10.1) Test 08/13/18 18:04 Glucose (Fingerstick) 139 mg/dL (70-99) Microbiology 08/06/18 Blood Culture - Final, Complete NO GROWTH AFTER 5 DAYS Medication Medications Current Medications Aspirin (Aspirin) 300 mg DAILY DE Last administered on 08/13/18at 07:57; Start at 09:00 Bumetanide (Bumex) 1 mg BID92 PO ; Start 08/14/18 at 09:00 Docusate Sodium (Colace Solution) 100 mg BID PO Last administered on 08/13/18at 07:56; Start 08/12/18 at 20:37 Levetiracetam (Keppra) 500 mg BID PEG ; Start 08/13/18 at 21:00 Metoprolol Tartrate (Lopressor) 12.5 mg BID PO ; Start 08/13/18 at 21:00 Comment Review of Relevant I have reviewed the following items alejandra (where applicable) has been applied. SAM PENA MD Aug 13, 2018 18:26
[2018-08-13] MEDS: ATORVASTATIN CALCIUM 40 MG TABLET. PO SCH (20:50)
[2018-08-13] MEDS: MIRTAZAPINE 7.5 MG TABLET. PO SCH (20:50)
[2018-08-13] MEDS: METOPROLOL TART IMMED RELEASE 25 MG TABLET. PO SCH (21:03)
[2018-08-14 03:41] VITALS: BP 133/80
[2018-08-14] MEDS: INSULIN LISPRO 300 UNITS/3 ML INSULN.PEN. SQ SCH ×2 (05:54→12:18)
[2018-08-14 07:00] VITALS: BP 118/50
[2018-08-14] MEDS: DOCUSATE 100 MG/10 ML SOLUTION. PO SCH (08:31)
[2018-08-14] MEDS: METOPROLOL TART IMMED RELEASE 25 MG TABLET. PO SCH (08:32)
[2018-08-14] MEDS: FAMOTIDINE 20 MG TABLET. PO SCH (08:32)
[2018-08-14] MEDS: BUMETANIDE 1 MG TABLET. PO SCH ×2 (08:33→14:14)
[2018-08-14] MEDS: POLYETHYLENE GLYCOL 3350 17 GM PACKET. PO SCH (08:33)
[2018-08-14] MEDS: ASPIRIN RECTAL 300 MG SUPP. PR SCH (08:33)
[2018-08-14] MEDS: MECLIZINE HCL 12.5 MG TABLET. PO SCH (08:33)
[2018-08-14] MEDS: CITALOPRAM 20 MG TABLET. PO SCH (08:33)
[2018-08-14] MEDS: INSULIN GLARGINE 300 UNITS/3 ML INSULN.PEN. SQ SCH (08:40)
[2018-08-14 09:49] LABS: BASO # 0.1 x10^3/uL (0.0-0.2); BASO % 1 % (0-3); EOS # 0.3 x10^3/uL (0.0-0.7); EOS % 3 % (0-3); HEMATOCRIT 35.1 % (36.0-47.0); HEMOGLOBIN 11.6 g/dL (12.0-15.5); LYMPH # 1.3 x10^3/uL (1.0-4.8); LYMPH % 13 % (24-48); MEAN CORPUSCULAR HEMOGLOBIN 32 pg (25-35); MEAN CORPUSCULAR HGB CONC 33 g/dL (31-37); MEAN CORPUSCULAR VOLUME 98 fL (79-100); MONO # 0.7 x10^3/uL (0.0-1.1); MONO % 7 % (0-9); NEUT # 7.6 x10^3uL (1.8-7.7); NEUT % 76 % (31-73); PLATELET COUNT 300 x10^3/uL (140-400); RED BLOOD COUNT 3.58 x10^6/uL (3.50-5.40); RED CELL DISTRIBUTION WIDTH 14.5 % (11.5-14.5)
[2018-08-14 10:05] LABS: CALCIUM 9.8 mg/dL (8.5-10.1); CREATININE 1.6 mg/dL (0.6-1.0); GFR 30.9; POTASSIUM 4.3 mmol/L (3.5-5.1)
--- NOTE | 2018-08-14 10:45 | PDOC ---
PROGRESS NOTES Chief Complaint Chief Complaint IMPRESSION Acute CVA w/ dysarthria/confusion New Subacute bilateral infarctions in the region of the right thalamus, and posterior right internal capsule and medial left thalamus, MRI showed Evidence of a new acute infarction in the region of the right thalamus, and possibly posterior right internal capsule and medial left thalamus. Left temporal infarction changes are again seen. There may be a new tiny focus of acute infarction in the anterior left temporal lobe. Elevated troponin 0.385 low concern for cardiac etiology suspect CVA and renal insufficiency contributing Recent mechanical Fall: no significant traumatic injury Recent Coumadin induced coagulopathy, transitioned to eliquis Cervical/lumbar stenosis with chronic L RTC tear Chronic A FIB CAD: past stents HTN HLP CKD3 , YULIANA acute on chronic insufficiency, will try diuresing in light of physical exam and supporting findings on x-ray with vascular congestion There is significant/critical stenosis with greater than than 90% luminal diameter reduction of the right P1 segment. 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 no significant stenosis identified of the cervical internal carotid arteries. ON MRI NECK Plan: follow recommendations from neurology hr shared services consultant EEG done early in the day will follow results congestion on physical exam, x ray noted, CONTINUE Bumex BID supportive measures PER MY CHART REVIEW, complex medical decision making, new cva, critical p1 segment stenosis, high fall risk, HIGH RISK OF CVA EXTENSION History of Present Illness History of Present Illness Patient more responsive today compared to yesterday. 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 Comparison: None Findings: Determination of any degree of stenosis is based on NASCET criteria. There is significant motion degradation. Left vertebral artery constitutes the basilar artery. Right vertebral artery is not seen. Region of PICAs is not included. There is visualization left AICA, not well seen on the right. There is visualization of segments of bilateral superior cerebellar arteries. There is patent left posterior communicating artery, small vessel in region of right posterior communicating artery more likely venous. There is visualization of the internal carotid arteries bilaterally at the skull base. No significant anterior communicating artery is visualized. Accurate evaluation for stenosis is limited due to degree of motion. There is likely at least moderate stenosis of the more distal right P2 segment. There is significant/critical stenosis with greater than than 90% luminal diameter reduction of the right P1 segment. There are likely tandem stenoses of the proximal left superior cerebellar artery, at least moderate luminal diameter reduction. 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 There is degree of stenoses of the cavernous internal carotid arteries bilaterally difficult to accurately quantify due to motion. There is other wall irregularity of the middle and anterior cerebral arteries likely due to intracranial atherosclerotic disease. There is at least mild stenosis near origin of the left A1 segment. Impression: 1. There is significant motion degradation. There is significant/critical stenosis right P1 segment. There are moderate tandem stenoses of the proximal left superior cerebellar artery. There is degree of narrowing of the cavernous internal carotid arteries bilaterally due to plaque. Neck MRA without contrast History: Weakness, suspected right CVA, acute change in level of consciousness Technique: [id number] MR angiography was performed of the neck. Comparison: None Findings: Determination of any degree of stenosis is based on NASCET criteria. There is significant motion degradation. There is antegrade flow of segments of the bilateral vertebral arteries although right vertebral artery very small in caliber and variably poorly visualized. There is antegrade flow in the bilateral common and internal carotid arteries. No significant stenosis is identified of the cervical internal carotid arteries allowing for significant motion. Brachiocephalic artery is not well-visualized in its entirety due to signal loss and motion. Impression: 1. Exam is limited due to motion, no significant stenosis identified of the cervical internal carotid arteries. Right vertebral artery is variably poorly visualized and small in caliber, may be chronic. Electronically signed by: Lance Knight MD (08/08/2018 3:17 PM) [id number] DICTATED and SIGNED BY: LANCE KNIGHT MD DATE: 08/08/18 1517 Laboratory Tests Test 08/13/18 12:15 08/13/18 18:04 08/13/18 23:32 08/14/18 05:51 Glucose (Fingerstick) 285 mg/dL (70-99) 139 mg/dL (70-99) 177 mg/dL (70-99) 191 mg/dL (70-99) Test 08/14/18 09:05 White Blood Count 10.0 x10^3/uL (4.0-11.0) Red Blood Count 3.58 x10^6/uL (3.50-5.40) Hemoglobin 11.6 g/dL (12.0-15.5) Hematocrit 35.1 % (36.0-47.0) Mean Corpuscular Volume 98 fL (79-100) Mean Corpuscular Hemoglobin 32 pg (25-35) Mean Corpuscular Hemoglobin Concent 33 g/dL (31-37) Red Cell Distribution Width 14.5 % (11.5-14.5) Platelet Count 300 x10^3/uL (140-400) Neutrophils (%) (Auto) 76 % (31-73) Lymphocytes (%) (Auto) 13 % (24-48) Monocytes (%) (Auto) 7 % (0-9) Eosinophils (%) (Auto) 3 % (0-3) Basophils (%) (Auto) 1 % (0-3) Neutrophils # (Auto) 7.6 x10^3uL (1.8-7.7) Lymphocytes # (Auto) 1.3 x10^3/uL (1.0-4.8) Monocytes # (Auto) 0.7 x10^3/uL (0.0-1.1) Eosinophils # (Auto) 0.3 x10^3/uL (0.0-0.7) Basophils # (Auto) 0.1 x10^3/uL (0.0-0.2) Sodium Level 140 mmol/L (136-145) Potassium Level 4.3 mmol/L (3.5-5.1) Chloride Level 102 mmol/L (98-107) Carbon Dioxide Level 30 mmol/L (21-32) Anion Gap 8 (6-14) Blood Urea Nitrogen 63 mg/dL (7-20) Creatinine 1.6 mg/dL (0.6-1.0) Estimated GFR (Cockcroft-Gault) 30.9 Glucose Level 233 mg/dL (70-99) Calcium Level 9.8 mg/dL (8.5-10.1) Assessment and Plan Assessmemt and Plan Problems Medical Problems: (1) Change in mental status Status: Acute Comment Review of Relevant I have reviewed the following items alejandra (where applicable) has been applied. Labs Laboratory Tests Test 08/12/18 12:48 08/12/18 17:15 08/13/18 00:15 08/13/18 04:30 Glucose (Fingerstick) 198 mg/dL (70-99) 107 mg/dL (70-99) 173 mg/dL (70-99) White Blood Count 12.9 x10^3/uL (4.0-11.0) Red Blood Count 3.51 x10^6/uL (3.50-5.40) Hemoglobin 11.5 g/dL (12.0-15.5) Hematocrit 34.3 % (36.0-47.0) Mean Corpuscular Volume 98 fL (79-100) Mean Corpuscular Hemoglobin 33 pg (25-35) Mean Corpuscular Hemoglobin Concent 34 g/dL (31-37) Red Cell Distribution Width 14.5 % (11.5-14.5) Platelet Count 276 x10^3/uL (140-400) Neutrophils (%) (Auto) 83 % (31-73) Lymphocytes (%) (Auto) 9 % (24-48) Monocytes (%) (Auto) 6 % (0-9) Eosinophils (%) (Auto) 2 % (0-3) Basophils (%) (Auto) 0 % (0-3) Neutrophils # (Auto) 10.7 x10^3uL (1.8-7.7) Lymphocytes # (Auto) 1.2 x10^3/uL (1.0-4.8) Monocytes # (Auto) 0.7 x10^3/uL (0.0-1.1) Eosinophils # (Auto) 0.3 x10^3/uL (0.0-0.7) Basophils # (Auto) 0.0 x10^3/uL (0.0-0.2) Sodium Level 139 mmol/L (136-145) Potassium Level 4.5 mmol/L (3.5-5.1) Chloride Level 101 mmol/L (98-107) Carbon Dioxide Level 29 mmol/L (21-32) Anion Gap 9 (6-14) Blood Urea Nitrogen 58 mg/dL (7-20) Creatinine 1.7 mg/dL (0.6-1.0) Estimated GFR (Cockcroft-Gault) 28.8 Glucose Level 196 mg/dL (70-99) Calcium Level 10.0 mg/dL (8.5-10.1) Test 08/13/18 05:56 08/13/18 12:15 08/13/18 18:04 08/13/18 23:32 Glucose (Fingerstick) 204 mg/dL (70-99) 285 mg/dL (70-99) 139 mg/dL (70-99) 177 mg/dL (70-99) Test 08/14/18 05:51 08/14/18 09:05 Glucose (Fingerstick) 191 mg/dL (70-99) White Blood Count 10.0 x10^3/uL (4.0-11.0) Red Blood Count 3.58 x10^6/uL (3.50-5.40) Hemoglobin 11.6 g/dL (12.0-15.5) Hematocrit 35.1 % (36.0-47.0) Mean Corpuscular Volume 98 fL (79-100) Mean Corpuscular Hemoglobin 32 pg (25-35) Mean Corpuscular Hemoglobin Concent 33 g/dL (31-37) Red Cell Distribution Width 14.5 % (11.5-14.5) Platelet Count 300 x10^3/uL (140-400) Neutrophils (%) (Auto) 76 % (31-73) Lymphocytes (%) (Auto) 13 % (24-48) Monocytes (%) (Auto) 7 % (0-9) Eosinophils (%) (Auto) 3 % (0-3) Basophils (%) (Auto) 1 % (0-3) Neutrophils # (Auto) 7.6 x10^3uL (1.8-7.7) Lymphocytes # (Auto) 1.3 x10^3/uL (1.0-4.8) Monocytes # (Auto) 0.7 x10^3/uL (0.0-1.1) Eosinophils # (Auto) 0.3 x10^3/uL (0.0-0.7) Basophils # (Auto) 0.1 x10^3/uL (0.0-0.2) Sodium Level 140 mmol/L (136-145) Potassium Level 4.3 mmol/L (3.5-5.1) Chloride Level 102 mmol/L (98-107) Carbon Dioxide Level 30 mmol/L (21-32) Anion Gap 8 (6-14) Blood Urea Nitrogen 63 mg/dL (7-20) Creatinine 1.6 mg/dL (0.6-1.0) Estimated GFR (Cockcroft-Gault) 30.9 Glucose Level 233 mg/dL (70-99) Calcium Level 9.8 mg/dL (8.5-10.1) Laboratory Tests Test 08/13/18 12:15 08/13/18 18:04 08/13/18 23:32 08/14/18 05:51 Glucose (Fingerstick) 285 mg/dL (70-99) 139 mg/dL (70-99) 177 mg/dL (70-99) 191 mg/dL (70-99) Test 08/14/18 09:05 White Blood Count 10.0 x10^3/uL (4.0-11.0) Red Blood Count 3.58 x10^6/uL (3.50-5.40) Hemoglobin 11.6 g/dL (12.0-15.5) Hematocrit 35.1 % (36.0-47.0) Mean Corpuscular Volume 98 fL (79-100) Mean Corpuscular Hemoglobin 32 pg (25-35) Mean Corpuscular Hemoglobin Concent 33 g/dL (31-37) Red Cell Distribution Width 14.5 % (11.5-14.5) Platelet Count 300 x10^3/uL (140-400) Neutrophils (%) (Auto) 76 % (31-73) Lymphocytes (%) (Auto) 13 % (24-48) Monocytes (%) (Auto) 7 % (0-9) Eosinophils (%) (Auto) 3 % (0-3) Basophils (%) (Auto) 1 % (0-3) Neutrophils # (Auto) 7.6 x10^3uL (1.8-7.7) Lymphocytes # (Auto) 1.3 x10^3/uL (1.0-4.8) Monocytes # (Auto) 0.7 x10^3/uL (0.0-1.1) Eosinophils # (Auto) 0.3 x10^3/uL (0.0-0.7) Basophils # (Auto) 0.1 x10^3/uL (0.0-0.2) Sodium Level 140 mmol/L (136-145) Potassium Level 4.3 mmol/L (3.5-5.1) Chloride Level 102 mmol/L (98-107) Carbon Dioxide Level 30 mmol/L (21-32) Anion Gap 8 (6-14) Blood Urea Nitrogen 63 mg/dL (7-20) Creatinine 1.6 mg/dL (0.6-1.0) Estimated GFR (Cockcroft-Gault) 30.9 Glucose Level 233 mg/dL (70-99) Calcium Level 9.8 mg/dL (8.5-10.1) Microbiology 08/06/18 Blood Culture - Final, Complete NO GROWTH AFTER 5 DAYS Medications Current Medications Sodium Chloride 500 ml @ 500 mls/hr 1X ONCE IV Last administered on 08/06/18at 16:21; Start 08/06/18 at 16:00; Stop 08/06/18 at 16:59; Status DC Ondansetron HCl (Zofran) 4 mg PRN Q6HRS PRN IV NAUSEA/VOMITING; Start 08/06/18 at 18:15 Morphine Sulfate (Morphine Sulfate) 1 mg PRN Q1HR PRN IV PAIN; Start 08/06/18 at 18:15 Lactulose (Lactulose) 20 gm PRN Q12HR PRN PO CONSTIPATION, 2ND CHOICE; Start at 18:15 Heparin Sodium (Porcine) (Heparin Sodium) 5,000 unit Q12HR SQ ; Start 08/06/18 at 21:00; Stop 08/06/18 at 21:00; Status DC Ascorbic Acid (Vitamin C) 500 mg DAILY PO Last administered on 08/08/18 08:57; Start 08/07/18 at 09:00; Stop 08/12/18 at 16:59; Status DC Aspirin (Derek Aspirin) 325 mg DAILY PO Last administered on 08/08/18 08:56; Start 08/07/18 at 09:00; Stop 08/08/18 at 15:05; Status DC Calcium/Vitamin D (Oscal D 500mg/ 200uts) 1 tab DAILY PO Last administered on 08:57; Start 08/07/18 at 09:00; Stop 08/12/18 at 16:59; Status DC Docusate Sodium (Colace) 100 mg BID PO Last administered on 08/10/18 20:50; Start 08/06/18 at 21:00; Stop 08/12/18 at 20:37; Status DC Ferrous Sulfate (Feosol) 325 mg DAILY PO Last administered on 08/08/18 08:56; Start 08/07/18 at 09:00; Stop 08/12/18 at 16:59; Status DC Acetaminophen/ Hydrocodone Bitart (Lortab 5/325) 1 tab PRN Q12HRS PRN PO MODERATE PAIN Last administered on 08/08/18 02:32; Start 08/06/18 at 18:15 Metoprolol Tartrate (Lopressor) 25 mg BID PO Last administered on 08/08/18 08: 57; Start 08/06/18 at 21:00; Stop 08/09/18 at 19:16; Status DC Nitroglycerin (Nitrostat) 0.4 mg PRN Q5MIN PRN SL CHEST PAIN; Start 08/06/18 at 18:15 Oxycodone/ Acetaminophen (Percocet 5/325) 1 tab PRN Q6HRS PRN PO SEVERE PAIN Last administered on 08/07/18 21:12; Start 08/06/18 at 18:15 Potassium Chloride (Klor-Con) 10 meq DAILY PO Last administered on 08/08/18 08: 56; Start 08/07/18 at 09:00; Stop 08/12/18 at 16:59; Status DC Acetaminophen (Tylenol) 500 mg PRN Q8HRS PRN PO MILD PAIN / TEMP Last administered on 08/07/18 14:07; Start 08/06/18 at 19:00; Stop 08/08/18 at 14:52; Status DC Bisacodyl (Dulcolax Supp) 10 mg PRN DAILY PRN NV CONSTIPATION Last administered on 08/12/18 17:29; Start 08/06/18 at 19:00 Diltiazem HCl (Cardizem 24hr Cd) 180 mg DAILY PO Last administered on 08/08/18 08:56; Start 08/07/18 at 09:00; Stop 08/09/18 at 11:49; Status DC Citalopram Hydrobromide (CeleXA) 40 mg DAILY PO Last administered on 08/14/18 08:33; Start 08/07/18 at 09:00 Insulin Human Lispro (HumaLOG) 10 units TIDWMEALS SQ Last administered on 12:51; Start 08/06/18 at 19:30; Stop 08/12/18 at 16:59; Status DC Insulin Glargine (Lantus) 34 units DAILYWBKFT SQ Last administered on 08:40; Start 08/07/18 at 08:00 Losartan Potassium (Cozaar) 50 mg DAILY PO Last administered on 08/07/18 09:26 ; Start 08/07/18 at 09:00; Stop 08/08/18 at 07:30; Status DC Magnesium Hydroxide (Milk Of Magnesia) 2,400 mg PRN DAILY PRN PO CONSTIPATION, 1ST CHOICE; Start 08/06/18 at 19:00 Meclizine HCl (Antivert) 12.5 mg BID PO Last administered on 08/14/18 08:33; Start 08/06/18 at 21:00 Metolazone (Zaroxolyn) 5 mg DAILY PO Last administered on 08/07/18 09:23; Start 08/07/18 at 09:00; Stop 08/07/18 at 10:37; Status DC Multivitamins (Thera M Plus) 1 tab DAILY PO Last administered on 08/08/18 08:57 ; Start 08/07/18 at 09:00; Stop 08/12/18 at 16:59; Status DC Pantoprazole Sodium (Protonix) 40 mg DAILYAC PO Last administered on 08/09/18 09:28; Start 08/07/18 at 07:30; Stop 08/12/18 at 16:59; Status DC Polyethylene Glycol (miraLAX PACKET) 17 gm DAILY PO Last administered on 08:33; Start 08/07/18 at 09:00 Famotidine (Pepcid) 20 mg DAILY PO Last administered on 08/14/18 08:32; Start 08/07/18 at 09:00 Spironolactone (Aldactone) 25 mg DAILY PO Last administered on 08/07/18 09:27; Start 08/07/18 at 09:00; Stop 08/08/18 at 12:43; Status DC Warfarin Sodium (Coumadin) 5 mg DAILY16 PO ; Start 08/06/18 at 19:30; Stop at 20:46; Status DC Warfarin Sodium (Coumadin Per Physician) 1 each PRN DAILY PRN MC SEE COMMENTS; Start 08/06/18 at 19:00; Stop 08/06/18 at 20:46; Status DC Bumetanide (Bumex) 4 mg BID94 PO Last administered on 08/07/18 09:23; Start 08/07/18 at 09:00; Stop 08/07/18 at 10:33; Status DC Isosorbide Mononitrate (Imdur) 60 mg DAILY PO Last administered on 08/07/18 09: 27; Start 08/07/18 at 09:00; Stop 08/08/18 at 07:30; Status DC Non-Formulary Medication (Lidocaine (Aspercreme)) 1 each DAILY TP ; Start at 09:00; Status UNV Non-Formulary Medication (Omeprazole ) 40 mg DAILY PO ; Start 08/07/18 at 09:00; Status UNV Multi-Ingredient Ointment (Analgesic [place]) 1 marisol PRN TID PRN TP MUSCLE PAIN; Start 08/06/18 at 20:45; Stop 08/06/18 at 20:45; Status DC Mirtazapine (Remeron) 7.5 mg QHS PO Last administered on 08/13/18at 20:50; Start 08/06/18 at 21:00 Multi-Ingredient Ointment (Analgesic [place]) 1 marisol PRN TID PRN TP MUSCLE PAIN Last administered on 08/06/18 22:17; Start 08/06/18 at 20:45 Apixaban (Eliquis) 5 mg BID PO Last administered on 08/08/18 08:57; Start at 21:00; Stop 08/08/18 at 13:15; Status DC Info (Anti-Coagulation Monitoring By Pharmacy) 1 each PRN DAILY PRN MC SEE COMMENTS Last administered on 08/08/18 13:22; Start 08/06/18 at 21:00 Acetaminophen (Tylenol) 650 mg PRN Q6HRS PRN PO TEMP > 100.4F; Start 08/07/18 at 09:00 Acetaminophen (Tylenol Supp) 650 mg PRN Q4HRS PRN NV TEMP > 100.4F Last administered on 08/13/18at 23:33; Start 08/07/18 at 09:00 Bumetanide (Bumex) 2 mg BID94 PO ; Start 08/07/18 at 16:00; Stop 08/08/18 at 12:43 ; Status DC Losartan Potassium (Cozaar) 50 mg NOON PO ; Start 08/08/18 at 12:00; Stop at 11:49; Status DC Naloxone HCl (Narcan) 0.4 mg 1X ONCE IV Last administered on 08/08/18at 10:47; Start 08/08/18 at 11:30; Stop 08/08/18 at 11:31; Status DC Atorvastatin Calcium (Lipitor) 40 mg QHS PO Last administered on 08/13/18 20:50 ; Start 08/08/18 at 21:00 Levetiracetam 500 mg/Dextrose 105 ml @ 420 mls/hr Q12HR IV Last administered on 08/13/18 07:57; Start 08/08/18 at 12:00; Stop 08/13/18 at 16:51; Status DC Apixaban (Eliquis) 2.5 mg BID PO ; Start 08/08/18 at 21:00; Stop 08/08/18 at 21:00 ; Status DC Enoxaparin Sodium (Lovenox 40mg Syringe) 40 mg Q24H SQ Last administered on 08/09 18:37; Start 08/08/18 at 16:00; Stop 08/10/18 at 10:12; Status DC Metoprolol Tartrate (Lopressor Vial) 5 mg PRN Q6HRS PRN IVP HYPERTENSION, SEE COMMENTS; Start 08/08/18 at 15:45; Stop 08/08/18 at 17:09; Status DC Metoprolol Tartrate (Lopressor Vial) 5 mg Q6HRS IVP Last administered on at 12:37; Start 08/08/18 at 18:00; Stop 08/13/18 at 16:51; Status DC Dextrose (Dextrose 50%-Water Syringe) 25 gm STK-MED ONCE IV ; Start 08/08/18 at 17:25; Stop 08/08/18 at 17:26; Status DC Dextrose (Dextrose 50%-Water Syringe) 25 gm STK-MED ONCE IV ; Start 08/08/18 at 21:40; Stop 08/08/18 at 21:41; Status DC Dextrose (Dextrose 50%-Water Syringe) 12.5 gm PRN Q15MIN PRN IV SEE COMMENTS Last administered on 08/08/18at 21:45; Start 08/08/18 at 21:45; Stop 08/13/18 at 20: 56; Status DC Dextrose (Dextrose 50%-Water Syringe) 25 gm STK-MED ONCE IV ; Start 08/08/18 at 18:00; Stop 08/09/18 at 08:52; Status DC Digoxin (Lanoxin) 250 mcg PRN DAILY PRN IV SEE COMMENTS; Start 08/09/18 at 12:00 Enoxaparin Sodium (Lovenox 30mg Syringe) 30 mg Q24H SQ Last administered on 08/13at 16:12; Start 08/10/18 at 16:00 Bumetanide (Bumex) 1 mg BID92 IV Last administered on 08/13/18at 16:11; Start 08/12/18 at 10:00; Stop 08/13/18 at 16:51; Status DC Furosemide (Lasix) 20 mg 1X ONCE IVP ; Start 08/12/18 at 12:00; Stop 08/12/18 at 12:21; Status DC Aspirin (Aspirin) 300 mg DAILY NV Last administered on 08/14/18at 08:33; Start 08/13/18 at 09:00 Insulin Human Lispro (HumaLOG) 0-7 UNITS TIDWMEALS SQ ; Start 08/12/18 at 17:00; Stop 08/12/18 at 17:18; Status DC Dextrose (Dextrose 50%-Water Syringe) 12.5 gm PRN Q15MIN PRN IV SEE COMMENTS; Start 08/12/18 at 17:00 Insulin Human Lispro (HumaLOG) 0-7 UNITS Q6HRS SQ Last administered on at 05:54; Start 08/12/18 at 18:00 Docusate Sodium (Colace Solution) 100 mg BID PO Last administered on 08/14/18at 08:31; Start 08/12/18 at 20:37 Metoprolol Tartrate (Lopressor) 12.5 mg BID PO Last administered on 08/14/18at 08:32; Start 08/13/18 at 21:00 Levetiracetam (Keppra) 500 mg BID PEG Last administered on 08/14/18at 08:31; Start 08/13/18 at 21:00 Bumetanide (Bumex) 1 mg BID92 PO Last administered on 08/14/18at 08:33; Start at 09:00 Active Scripts Active Reported Doxycycline Hyclate 100 Mg Tablet 100 Mg PO BID Eliquis (Apixaban) 5 Mg Tablet 5 Mg PO BID Aspercreme 10% Cream (Trolamine Salicylate/Aloe Vera) 35.4 Gm Cream..g. 35.4 Gm TP TID PRN PRN Isosorbide Mononitrate Er (Isosorbide Mononitrate) 60 Mg Tab.er.24h 60 Mg PO DAILY Aspercreme (Lidocaine) 1 Each Adh..patch 1 Each TP DAILY Bumetanide 2 Mg Tablet 4 Mg PO BID Spironolactone 25 Mg Tablet 25 Mg PO DAILY Potassium Chloride 10 Meq Tablet.er 10 Meq PO DAILY Omeprazole 40 Mg Capsule.dr 40 Mg PO DAILY NITROGLYCERIN SubLingual (Nitroglycerin) 0.4 Mg Tab.subl 0.4 Mg SL PRN Q5MIN PRN Escitalopram Oxalate 20 Mg Tablet 1 Tab PO DAILY Diltiazem 24HR Cd (Diltiazem Hcl) 180 Mg Cap.er.24h 1 Cap PO DAILY Ascorbic Acid 500 Mg Tablet 500 Mg PO Multivitamins (Multivitamin) 1 Each Tablet 1 Tab PO DAILY Metolazone 5 Mg Tablet 5 Mg PO DAILY Novolog Flexpen (Insulin Aspart) 100 Unit/1 Ml Insuln.pen 10 Unit SQ TIDAC Tresiba Flextouch U-100 (Insulin Degludec) 100 Unit/1 Ml Insuln.pen 34 Unit SQ DAILYWBKFT Ferrous Sulfate 325 Mg Tablet 1 Tab PO DAILY Dulcolax (Bisacodyl) 10 Mg Supp.rect 10 Mg RC PRN DAILY PRN Aspirin 325 Mg Tablet 1 Tab PO DAILY Metoprolol Tartrate 25 Mg Tablet 25 Tab PO BID Acetaminophen 500 Mg Tablet 500 Mg PO PRN Q8HRS PRN Meclizine Hcl 12.5 Mg Tablet 1 Tab PO BID Hydrocodone-Apap 5-325 (Hydrocodone Bit/Acetaminophen) 1 Each Tablet 1 Tab PO Q12HR PRN Stool Softener (Docusate Sodium) 100 Mg Capsule 100 Mg PO BID Losartan Potassium 100 Mg Tablet 50 Mg PO DAILY Vitals/I & O Vital Sign - Last 24 Hours 08/13/18 08/13/18 08/13/18 08/13/18 11:00 12:37 14:38 19:33 Temp 97.4 97.4 Pulse 98 106 81 98 Resp 16 17 24 B/P (MAP) 125/76 (92) 131/72 (91) 150/69 (96) Pulse Ox 100 96 99 O2 Delivery Room Air Room Air Nasal Cannula O2 Flow Rate 1.0 08/13/18 08/13/18 08/13/18 08/14/18 20:00 21:03 23:19 03:41 Temp 98.8 98.6 98.8 98.6 Pulse 98 88 108 Resp 16 20 B/P (MAP) 150/69 151/104 (120) 133/80 (97) Pulse Ox 95 99 O2 Delivery Nasal Cannula Nasal Cannula Nasal Cannula O2 Flow Rate 2.0 2.0 2.0 08/14/18 08/14/18 07:00 08:32 Temp 97.9 97.9 Pulse 109 109 B/P (MAP) 118/50 (72) 118/50 Pulse Ox 99 O2 Delivery Nasal Cannula O2 Flow Rate 2.0 Intake and Output 08/13/18 08/13/18 08/14/18 15:00 23:00 07:00 Intake Total 485 ml 200 ml 100 ml Output Total 330 ml 550 ml Balance 155 ml 200 ml -450 ml FULBRIGHT,LORA W MD Aug 14, 2018 10:45
[2018-08-14 11:00] VITALS: BP 103/53
[2018-08-14] MEDS: oxyCODONE/APAP 5/325 1 TAB TABLET PO PRN (13:12)
--- NOTE | 2018-08-14 14:46 | PDOC ---
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 Recent temporal lobe stroke with aphasia, receptive and expressive components. 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 Cardioembolic phenomenon. The combination of bilateral infarcts, although each is fairly small and non- life-threatening, has rendered her in a near-comatose state. She is slowly improving. Metabolic encephalopathy. Respiratory distress. AFib. Hyperglycemia. Renal failure. DM. HTN. HLD. CHF. Obesity. Old superior L2 compression fracture, advanced degenerative disc disease L5-S1 , severe spinal stenosis L4-5, right greater than left L5-S1 neural foramina compromise, mild to moderate narrowing of the L5-S1 neural foramen, minimal narrowing of the left L5-S1 and L3-4 neural foramina, grade 1 anterior spondylolisthesis at L4-5, negligible anterior spondylolisthesis at L5-S1. There is facet degenerative change greater inferiorly of the lumbar spine. Cervical spondylosis: degenerative disc disease at C4-C7. Poor prognosis. RECOMMENDATIONS/PLAN: ASA 300 mg rectal daily at the present time. Statin HS. Treat medical diseases. Continue Keppra at the present time. Palliative care consulted. Discussed with her son-in-law in detail at bedside on 08/13/18. Past Medical History Cardiovascular: AFIB, CAD, CHF, HTN, Hyperlipidemia, Other ( endocarditis, deep vein thrombosis) Pulmonary: Pulmonary embolus, Pneumonia GI: Constipation, GERD, Other ( diarrhea) Heme/Onc: Anemia NOS, Other ( easy bruising) Psych: Depression Musculoskeletal: low back pain Endocrine: Diabetes Past Surgical History Appendectomy, Cholecystectomy, Cataract Removal, Total knee replacement ( bilateral), Tonsillectomy ( adenoids), Other ( coronary stents, left leg vein stripping, cardiac catheterization, right knee incision and drainage) Family History CAD Social History , lives in assisted living, no alcohol or tobacco Allergies Coded Allergies: Iodinated Contrast- Oral and IV Dye (Verified Allergy, Severe, Anaphylaxis , 07/19/17) adhesive tape (Verified Allergy, Intermediate, 07/19/17) I S O L A T I O N *CONTACT* (Verified Allergy, Unknown, 07/19/17) mrsa meperidine (Verified Adverse Reaction, Intermediate, Vomiting, 07/19/17) ROS Negative for fever, chills, weight loss, shortness of breath, chest pain, indigestion, hematochezia, melena, and dysuria. Full 14-point review of systems is negative. MEDICATIONS: Refer to [facility] PHYSICAL EXAMINATION: General appearance in subacute distress. HEENT: Normocephalic and nontraumatic. Eyes, nose, ears, and throat are unremarkable. Hearing decrease. Neck is supple. No lymphadenopathy. No Crepitus. Cardiovascular: S1, S2, irregular rate and rhythm. Pulmonary: Decreased to auscultation bilaterally. Abdomen: Bowel sounds are positive. Extremities: Edema and ecchymoses noted. No restriction of range of motion, but mo active movements noted. NEUROLOGICAL EXAMINATION: Eyes closed. Unresponsiveness to verbal stimuli. Not oriented to time, place and person. PERRL. EOMI not elicited. CN: Not able to access due to not follow commands. Muscle tone: Decreased. Muscle strength: Minimal movements to stimuli. DTR: 1 Plantar reflex: Neutral response bilaterally Gait: not able to walk. Sensory exam: Minimal movements to stimuli. Not able to access cerebellar signs. F-T-N test not performed due to not follow commands. Objective Objective Vital Signs Date Time Temp Pulse Resp B/P (MAP) Pulse Ox O2 Delivery O2 Flow Rate FiO2 08/14/18 14:14 Room Air 08/14/18 13:12 100 2.0 08/14/18 11:00 97.8 68 16 103/53 (70) 97.8 Intake and Output 08/14/18 06:59 Intake Total 785 ml Output Total 880 ml Balance -95 ml Intake Oral 180 ml IV Total 105 ml Tube Feeding 500 ml Output Urine Total 880 ml Vitals Signs Vitals VS - Last 72 Hours, by Label Date Time Temp Pulse Resp B/P (MAP) Pulse Ox O2 Delivery O2 Flow Rate FiO2 08/14/18 14:14 Room Air 08/14/18 13:12 100 Nasal Cannula 2.0 08/14/18 11:00 97.8 68 16 103/53 (70) 100 Nasal Cannula 2.0 97.8 08/14/18 08:32 109 118/50 08/14/18 08:00 Nasal Cannula 2.0 08/14/18 07:00 97.9 109 118/50 (72) 99 Nasal Cannula 2.0 97.9 08/14/18 03:41 98.6 108 20 133/80 (97) 99 Nasal Cannula 2.0 98.6 08/13/18 23:19 98.8 88 16 151/104 (120) 95 Nasal Cannula 2.0 98.8 08/13/18 21:03 98 150/69 08/13/18 20:00 Nasal Cannula 2.0 08/13/18 19:33 97.4 98 24 150/69 (96) 99 Nasal Cannula 1.0 97.4 08/13/18 14:38 81 17 131/72 (91) 96 Room Air 08/13/18 12:37 106 08/13/18 11:00 98 16 125/76 (92) 100 Room Air 08/13/18 10:00 95 16 119/51 (73) 100 Room Air 08/13/18 09:00 87 16 135/51 (79) 100 Room Air 08/13/18 08:00 79 16 121/61 (81) 100 Room Air 08/13/18 07:40 Room Air 08/13/18 07:00 98.4 90 16 125/69 (87) 100 Nasal Cannula 2.0 98.4 Laboratory Laboratory Laboratory Tests Test 08/13/18 18:04 08/13/18 23:32 08/14/18 05:51 08/14/18 09:05 Glucose (Fingerstick) 139 mg/dL (70-99) 177 mg/dL (70-99) 191 mg/dL (70-99) White Blood Count 10.0 x10^3/uL (4.0-11.0) Red Blood Count 3.58 x10^6/uL (3.50-5.40) Hemoglobin 11.6 g/dL (12.0-15.5) Hematocrit 35.1 % (36.0-47.0) Mean Corpuscular Volume 98 fL (79-100) Mean Corpuscular Hemoglobin 32 pg (25-35) Mean Corpuscular Hemoglobin Concent 33 g/dL (31-37) Red Cell Distribution Width 14.5 % (11.5-14.5) Platelet Count 300 x10^3/uL (140-400) Neutrophils (%) (Auto) 76 % (31-73) Lymphocytes (%) (Auto) 13 % (24-48) Monocytes (%) (Auto) 7 % (0-9) Eosinophils (%) (Auto) 3 % (0-3) Basophils (%) (Auto) 1 % (0-3) Neutrophils # (Auto) 7.6 x10^3uL (1.8-7.7) Lymphocytes # (Auto) 1.3 x10^3/uL (1.0-4.8) Monocytes # (Auto) 0.7 x10^3/uL (0.0-1.1) Eosinophils # (Auto) 0.3 x10^3/uL (0.0-0.7) Basophils # (Auto) 0.1 x10^3/uL (0.0-0.2) Sodium Level 140 mmol/L (136-145) Potassium Level 4.3 mmol/L (3.5-5.1) Chloride Level 102 mmol/L (98-107) Carbon Dioxide Level 30 mmol/L (21-32) Anion Gap 8 (6-14) Blood Urea Nitrogen 63 mg/dL (7-20) Creatinine 1.6 mg/dL (0.6-1.0) Estimated GFR (Cockcroft-Gault) 30.9 Glucose Level 233 mg/dL (70-99) Calcium Level 9.8 mg/dL (8.5-10.1) Test 08/14/18 11:56 Glucose (Fingerstick) 265 mg/dL (70-99) Microbiology 08/06/18 Blood Culture - Final, Complete NO GROWTH AFTER 5 DAYS Medication Medications Current Medications Bumetanide (Bumex) 1 mg BID92 PO Last administered on 08/14/18at 14:14; Start at 09:00 Levetiracetam (Keppra) 500 mg BID PEG Last administered on 08/14/18at 08:31; Start 08/13/18 at 21:00 Metoprolol Tartrate (Lopressor) 12.5 mg BID PO Last administered on 08/14/18at 08:32; Start 08/13/18 at 21:00 Morphine Sulfate (Roxanol Conc) 5 mg PRN Q3HRS PRN SL PAIN; Start 08/14/18 at 12:00 Comment Review of Relevant I have reviewed the following items alejandra (where applicable) has been applied. SAM PENA MD Aug 14, 2018 14:46
[2018-08-14 15:00] VITALS: BP 144/66
--- NOTE | 2018-08-14 15:00 | PDOC2 ---
PALLIATIVE CARE Palliative Care Note Palliative Care Patient having periods of apnea. 15 sec. Spoke with daughters Alis, Maite, Jessie, Kizzy per phone, son- Denny Reviewed medical condition. Family has good understanding of patient's medical condition. Reviewed Advanced Directive Family would like to focus on comfort and allow natural . They would like [facility]. Christos CABRERA will fax information to [facility]. Outside the Hospital DNR/DNI has been completed. Plan: DNR/DNI Discontinue all meds that are not adding to comfort. Margarette will call physician for orders. [facility] contacted. No beds available OSIEL Barillas Aug 14, 2018 15:00
--- NOTE | 2018-08-14 15:06 | NUR ---
SW following pt. SW phoned and faxed referral to [facility] hospice house, phone: [phone], fax: [phone]. SW provided RN phone number to call as well. They reported they currently do not have an open bed at this time but will call SW/RN to set up time for bed side assessment. Pt acceptance and admission pending. Will continue to follow.
--- NOTE | 2018-08-14 15:33 | NUR ---
Patient family spoke with Pat from palliative, they have decided to go hospice care. This RN called Dr. Griffith with this update, any medication that does not contribute to comfort has been discontinued. Feedings stopped and Dobhoff removed. Vitals to be Qshift, no fingersticks. Christos CABRERA has faxed paperwork to hospice house who will evaluate patient tomorrow. Family at bedside and reiterated to this nurse that they agree with the hospice plan.
[2018-08-14] MEDS: MORPHINE SULFATE 20 MG/ML CONC SOLUTION. SL PRN ×2 (17:42→21:03)
--- NOTE | 2018-08-14 19:04 | PDOC2 ---
CONSULT Date of Consult Date of Consult DATE: 08/14/18 TIME: 18:51 Referring Physician Referring Physician: GRACIELA/CKD Identification/Chief Complaint Chief Complaint Unable to Obtain Pt Non verbal post stroke Source Source: Chart review, Patient History of Present Illness Reason for Visit: Pt is 83 yo female known to me from Office folow up of CKD admitted on 08/06 for altered mental status. She resides at [facility]. She noticed herself unable to speak and called her niece and for some reason she was able to dial her niece's phone number. She was found to be confused. No visual or auditory disturbances but complained of some CRUZ but no chest pain, palpitations, nausea, vomiting. . She got better and was speaking better and able to follow directions with no unilateral weakness except for her LUE to which she has chronic tear to her RTC. 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 Mukherjee as an outpt. She has chronic AFIB and CAD and saw Dr. Cast in the past . As per daughter she had total 3 strokes including her initia one and 2 during hospitalization . Now she is unable to speak, Opens her eyes Occasionally . Not sure is she recognizes anyone Today decision taken by family for Hospice Past Medical History Cardiovascular: AFIB, CAD, CHF, HTN, Hyperlipidemia, Other ( endocarditis, deep vein thrombosis) Pulmonary: Pulmonary embolus, Pneumonia CENTRAL NERVOUS SYSTEM: Other (No pertinent history) GI: Constipation, GERD, Other ( diarrhea) Heme/Onc: Anemia NOS, Other ( easy bruising) Hepatobiliary: No pertinent hx Psych: Depression Musculoskeletal: low back pain Rheumatologic: No pertinent hx Infectious disease: No pertinent hx ENT: Other (menieres) Renal/: Chronic renal insuff (CKD3), UTI, Urinary Incontinence Endocrine: Diabetes Dermatology: No pertinent hx Past Surgical History Past Surgical History: Appendectomy, Cholecystectomy, Cataract Removal, Total knee replacement ( bilateral), Tonsillectomy ( adenoids), Other ( coronary stents, left leg vein stripping, cardiac catheterization, right knee incision and drainage) Family History Family History: Diabetes, Hypertension Social History No ALCOHOL: none Drugs: None Lives: with Family Current Problem List Problem List Problems Medical Problems: (1) Change in mental status Status: Acute Current Medications Current Medications Current Medications Sodium Chloride 500 ml @ 500 mls/hr 1X ONCE IV Last administered on 08/06/18 16:21; Start 08/06/18 at 16:00; Stop 08/06/18 at 16:59; Status DC Ondansetron HCl (Zofran) 4 mg PRN Q6HRS PRN IV NAUSEA/VOMITING; Start 08/06/18 at 18:15; Stop 08/14/18 at 15:22; Status DC Morphine Sulfate (Morphine Sulfate) 1 mg PRN Q1HR PRN IV PAIN; Start 08/06/18 at 18:15; Stop 08/14/18 at 15:22; Status DC Lactulose (Lactulose) 20 gm PRN Q12HR PRN PO CONSTIPATION, 2ND CHOICE; Start at 18:15; Stop 08/14/18 at 15:22; Status DC Heparin Sodium (Porcine) (Heparin Sodium) 5,000 unit Q12HR SQ ; Start 08/06/18 at 21:00; Stop 08/06/18 at 21:00; Status DC Ascorbic Acid (Vitamin C) 500 mg DAILY PO Last administered on 08/08/18 08:57; Start 08/07/18 at 09:00; Stop 08/12/18 at 16:59; Status DC Aspirin (Derek Aspirin) 325 mg DAILY PO Last administered on 08/08/18 08:56; Start 08/07/18 at 09:00; Stop 08/08/18 at 15:05; Status DC Calcium/Vitamin D (Oscal D 500mg/ 200uts) 1 tab DAILY PO Last administered on 08:57; Start 08/07/18 at 09:00; Stop 08/12/18 at 16:59; Status DC Docusate Sodium (Colace) 100 mg BID PO Last administered on 08/10/18at 20:50; Start 08/06/18 at 21:00; Stop 08/12/18 at 20:37; Status DC Ferrous Sulfate (Feosol) 325 mg DAILY PO Last administered on 08/08/18 08:56; Start 08/07/18 at 09:00; Stop 08/12/18 at 16:59; Status DC Acetaminophen/ Hydrocodone Bitart (Lortab 5/325) 1 tab PRN Q12HRS PRN PO MODERATE PAIN Last administered on 08/08/18 02:32; Start 08/06/18 at 18:15; Stop 08/14/18 at 15:22; Status DC Metoprolol Tartrate (Lopressor) 25 mg BID PO Last administered on 08/08/18 08: 57; Start 08/06/18 at 21:00; Stop 08/09/18 at 19:16; Status DC Nitroglycerin (Nitrostat) 0.4 mg PRN Q5MIN PRN SL CHEST PAIN; Start 08/06/18 at 18:15 Oxycodone/ Acetaminophen (Percocet 5/325) 1 tab PRN Q6HRS PRN PO SEVERE PAIN Last administered on 08/14/18 13:12; Start 08/06/18 at 18:15; Stop 08/14/18 at 15:22; Status DC Potassium Chloride (Klor-Con) 10 meq DAILY PO Last administered on 08/08/18 08: 56; Start 08/07/18 at 09:00; Stop 08/12/18 at 16:59; Status DC Acetaminophen (Tylenol) 500 mg PRN Q8HRS PRN PO MILD PAIN / TEMP Last administered on 08/07/18 14:07; Start 08/06/18 at 19:00; Stop 08/08/18 at 14:52; Status DC Bisacodyl (Dulcolax Supp) 10 mg PRN DAILY PRN ME CONSTIPATION Last administered on 08/12/18 17:29; Start 08/06/18 at 19:00; Stop 08/14/18 at 15:22; Status DC Diltiazem HCl (Cardizem 24hr Cd) 180 mg DAILY PO Last administered on 08/08/18 08:56; Start 08/07/18 at 09:00; Stop 08/09/18 at 11:49; Status DC Citalopram Hydrobromide (CeleXA) 40 mg DAILY PO Last administered on 08/14/18 08:33; Start 08/07/18 at 09:00; Stop 08/14/18 at 15:22; Status DC Insulin Human Lispro (HumaLOG) 10 units TIDWMEALS SQ Last administered on 12:51; Start 08/06/18 at 19:30; Stop 08/12/18 at 16:59; Status DC Insulin Glargine (Lantus) 34 units DAILYWBKFT SQ Last administered on at 08:40; Start 08/07/18 at 08:00; Stop 08/14/18 at 15:22; Status DC Losartan Potassium (Cozaar) 50 mg DAILY PO Last administered on 08/07/18 09:26 ; Start 08/07/18 at 09:00; Stop 08/08/18 at 07:30; Status DC Magnesium Hydroxide (Milk Of Magnesia) 2,400 mg PRN DAILY PRN PO CONSTIPATION, 1ST CHOICE; Start 08/06/18 at 19:00; Stop 08/14/18 at 15:22; Status DC Meclizine HCl (Antivert) 12.5 mg BID PO Last administered on 08/14/18 08:33; Start 08/06/18 at 21:00; Stop 08/14/18 at 15:22; Status DC Metolazone (Zaroxolyn) 5 mg DAILY PO Last administered on 08/07/18 09:23; Start 08/07/18 at 09:00; Stop 08/07/18 at 10:37; Status DC Multivitamins (Thera M Plus) 1 tab DAILY PO Last administered on 08/08/18 08:57 ; Start 08/07/18 at 09:00; Stop 08/12/18 at 16:59; Status DC Pantoprazole Sodium (Protonix) 40 mg DAILYAC PO Last administered on 08/09/18 09:28; Start 08/07/18 at 07:30; Stop 08/12/18 at 16:59; Status DC Polyethylene Glycol (miraLAX PACKET) 17 gm DAILY PO Last administered on 08:33; Start 08/07/18 at 09:00; Stop 08/14/18 at 15:22; Status DC Famotidine (Pepcid) 20 mg DAILY PO Last administered on 08/14/18 08:32; Start 08/07/18 at 09:00; Stop 08/14/18 at 15:22; Status DC Spironolactone (Aldactone) 25 mg DAILY PO Last administered on 08/07/18at 09:27; Start 08/07/18 at 09:00; Stop 08/08/18 at 12:43; Status DC Warfarin Sodium (Coumadin) 5 mg DAILY16 PO ; Start 08/06/18 at 19:30; Stop at 20:46; Status DC Warfarin Sodium (Coumadin Per Physician) 1 each PRN DAILY PRN MC SEE COMMENTS; Start 08/06/18 at 19:00; Stop 08/06/18 at 20:46; Status DC Bumetanide (Bumex) 4 mg BID94 PO Last administered on 08/07/18at 09:23; Start 08/07/18 at 09:00; Stop 08/07/18 at 10:33; Status DC Isosorbide Mononitrate (Imdur) 60 mg DAILY PO Last administered on 08/07/18at 09: 27; Start 08/07/18 at 09:00; Stop 08/08/18 at 07:30; Status DC Non-Formulary Medication (Lidocaine (Aspercreme)) 1 each DAILY TP ; Start at 09:00; Status UNV Non-Formulary Medication (Omeprazole ) 40 mg DAILY PO ; Start 08/07/18 at 09:00; Status UNV Multi-Ingredient Ointment (Analgesic [place]) 1 marisol PRN TID PRN TP MUSCLE PAIN; Start 08/06/18 at 20:45; Stop 08/06/18 at 20:45; Status DC Mirtazapine (Remeron) 7.5 mg QHS PO Last administered on 08/13/18at 20:50; Start 08/06/18 at 21:00; Stop 08/14/18 at 15:22; Status DC Multi-Ingredient Ointment (Analgesic [place]) 1 marisol PRN TID PRN TP MUSCLE PAIN Last administered on 08/06/18at 22:17; Start 08/06/18 at 20:45 Apixaban (Eliquis) 5 mg BID PO Last administered on 08/08/18at 08:57; Start at 21:00; Stop 08/08/18 at 13:15; Status DC Info (Anti-Coagulation Monitoring By Pharmacy) 1 each PRN DAILY PRN MC SEE COMMENTS Last administered on 08/08/18at 13:22; Start 08/06/18 at 21:00; Stop 08/14 at 15:22; Status DC Acetaminophen (Tylenol) 650 mg PRN Q6HRS PRN PO TEMP > 100.4F; Start 08/07/18 at 09:00; Stop 08/14/18 at 15:22; Status DC Acetaminophen (Tylenol Supp) 650 mg PRN Q4HRS PRN ME TEMP > 100.4F Last administered on 08/13/18at 23:33; Start 08/07/18 at 09:00 Bumetanide (Bumex) 2 mg BID94 PO ; Start 08/07/18 at 16:00; Stop 08/08/18 at 12:43 ; Status DC Losartan Potassium (Cozaar) 50 mg NOON PO ; Start 08/08/18 at 12:00; Stop at 11:49; Status DC Naloxone HCl (Narcan) 0.4 mg 1X ONCE IV Last administered on 08/08/18at 10:47; Start 08/08/18 at 11:30; Stop 08/08/18 at 11:31; Status DC Atorvastatin Calcium (Lipitor) 40 mg QHS PO Last administered on 08/13/18at 20:50 ; Start 08/08/18 at 21:00; Stop 08/14/18 at 15:22; Status DC Levetiracetam 500 mg/Dextrose 105 ml @ 420 mls/hr Q12HR IV Last administered on 08/13/18at 07:57; Start 08/08/18 at 12:00; Stop 08/13/18 at 16:51; Status DC Apixaban (Eliquis) 2.5 mg BID PO ; Start 08/08/18 at 21:00; Stop 08/08/18 at 21:00 ; Status DC Enoxaparin Sodium (Lovenox 40mg Syringe) 40 mg Q24H SQ Last administered on 08/09at 18:37; Start 08/08/18 at 16:00; Stop 08/10/18 at 10:12; Status DC Metoprolol Tartrate (Lopressor Vial) 5 mg PRN Q6HRS PRN IVP HYPERTENSION, SEE COMMENTS; Start 08/08/18 at 15:45; Stop 08/08/18 at 17:09; Status DC Metoprolol Tartrate (Lopressor Vial) 5 mg Q6HRS IVP Last administered on at 12:37; Start 08/08/18 at 18:00; Stop 08/13/18 at 16:51; Status DC Dextrose (Dextrose 50%-Water Syringe) 25 gm STK-MED ONCE IV ; Start 08/08/18 at 17:25; Stop 08/08/18 at 17:26; Status DC Dextrose (Dextrose 50%-Water Syringe) 25 gm STK-MED ONCE IV ; Start 08/08/18 at 21:40; Stop 08/08/18 at 21:41; Status DC Dextrose (Dextrose 50%-Water Syringe) 12.5 gm PRN Q15MIN PRN IV SEE COMMENTS Last administered on 08/08/18at 21:45; Start 08/08/18 at 21:45; Stop 08/13/18 at 20: 56; Status DC Dextrose (Dextrose 50%-Water Syringe) 25 gm STK-MED ONCE IV ; Start 08/08/18 at 18:00; Stop 08/09/18 at 08:52; Status DC Digoxin (Lanoxin) 250 mcg PRN DAILY PRN IV SEE COMMENTS; Start 08/09/18 at 12:00 ; Stop 08/14/18 at 15:22; Status DC Enoxaparin Sodium (Lovenox 30mg Syringe) 30 mg Q24H SQ Last administered on 08/13at 16:12; Start 08/10/18 at 16:00; Stop 08/14/18 at 15:22; Status DC Bumetanide (Bumex) 1 mg BID92 IV Last administered on 08/13/18at 16:11; Start 08/12/18 at 10:00; Stop 08/13/18 at 16:51; Status DC Furosemide (Lasix) 20 mg 1X ONCE IVP ; Start 08/12/18 at 12:00; Stop 08/12/18 at 12:21; Status DC Aspirin (Aspirin) 300 mg DAILY ME Last administered on 08/14/18at 08:33; Start 08/13/18 at 09:00; Stop 08/14/18 at 15:22; Status DC Insulin Human Lispro (HumaLOG) 0-7 UNITS TIDWMEALS SQ ; Start 08/12/18 at 17:00; Stop 08/12/18 at 17:18; Status DC Dextrose (Dextrose 50%-Water Syringe) 12.5 gm PRN Q15MIN PRN IV SEE COMMENTS; Start 08/12/18 at 17:00 Insulin Human Lispro (HumaLOG) 0-7 UNITS Q6HRS SQ Last administered on at 12:18; Start 08/12/18 at 18:00; Stop 08/14/18 at 15:22; Status DC Docusate Sodium (Colace Solution) 100 mg BID PO Last administered on 08/14/18at 08:31; Start 08/12/18 at 20:37; Stop 08/14/18 at 15:22; Status DC Metoprolol Tartrate (Lopressor) 12.5 mg BID PO Last administered on 08/14/18at 08:32; Start 08/13/18 at 21:00; Stop 08/14/18 at 15:22; Status DC Levetiracetam (Keppra) 500 mg BID PEG Last administered on 08/14/18at 08:31; Start 08/13/18 at 21:00; Stop 08/14/18 at 15:22; Status DC Bumetanide (Bumex) 1 mg BID92 PO Last administered on 08/14/18at 14:14; Start at 09:00; Stop 08/14/18 at 15:22; Status DC Morphine Sulfate (Roxanol Conc) 5 mg PRN Q3HRS PRN SL PAIN Last administered on 08/14/18at 17:42; Start 08/14/18 at 12:00 Active Scripts Active Reported Doxycycline Hyclate 100 Mg Tablet 100 Mg PO BID Eliquis (Apixaban) 5 Mg Tablet 5 Mg PO BID Aspercreme 10% Cream (Trolamine Salicylate/Aloe Vera) 35.4 Gm Cream..g. 35.4 Gm TP TID PRN PRN Isosorbide Mononitrate Er (Isosorbide Mononitrate) 60 Mg Tab.er.24h 60 Mg PO DAILY Aspercreme (Lidocaine) 1 Each Adh..patch 1 Each TP DAILY Bumetanide 2 Mg Tablet 4 Mg PO BID Spironolactone 25 Mg Tablet 25 Mg PO DAILY Potassium Chloride 10 Meq Tablet.er 10 Meq PO DAILY Omeprazole 40 Mg Capsule.dr 40 Mg PO DAILY NITROGLYCERIN SubLingual (Nitroglycerin) 0.4 Mg Tab.subl 0.4 Mg SL PRN Q5MIN PRN Escitalopram Oxalate 20 Mg Tablet 1 Tab PO DAILY Diltiazem 24HR Cd (Diltiazem Hcl) 180 Mg Cap.er.24h 1 Cap PO DAILY Ascorbic Acid 500 Mg Tablet 500 Mg PO Multivitamins (Multivitamin) 1 Each Tablet 1 Tab PO DAILY Metolazone 5 Mg Tablet 5 Mg PO DAILY Novolog Flexpen (Insulin Aspart) 100 Unit/1 Ml Insuln.pen 10 Unit SQ TIDAC Tresiba Flextouch U-100 (Insulin Degludec) 100 Unit/1 Ml Insuln.pen 34 Unit SQ DAILYWBKFT Ferrous Sulfate 325 Mg Tablet 1 Tab PO DAILY Dulcolax (Bisacodyl) 10 Mg Supp.rect 10 Mg RC PRN DAILY PRN Aspirin 325 Mg Tablet 1 Tab PO DAILY Metoprolol Tartrate 25 Mg Tablet 25 Tab PO BID Acetaminophen 500 Mg Tablet 500 Mg PO PRN Q8HRS PRN Meclizine Hcl 12.5 Mg Tablet 1 Tab PO BID Hydrocodone-Apap 5-325 (Hydrocodone Bit/Acetaminophen) 1 Each Tablet 1 Tab PO Q12HR PRN Stool Softener (Docusate Sodium) 100 Mg Capsule 100 Mg PO BID Losartan Potassium 100 Mg Tablet 50 Mg PO DAILY Allergies Allergies: Coded Allergies: Iodinated Contrast- Oral and IV Dye (Verified Allergy, Severe, Anaphylaxis , 07/19/17) adhesive tape (Verified Allergy, Intermediate, 07/19/17) meperidine (Verified Adverse Reaction, Intermediate, Vomiting, 07/19/17) ROS Review of System Unable to Obtain Physical Exam Physical Exam General NAD ,Unresponsiveness to verbal stimuli. HEENT: Eyes closed. Neck is supple. Cardiovascular: S1, S2, irregular rate and rhythm. Pulmonary: Decreased to auscultation bilaterally. Abdomen: Bowel sounds present Extremities: Edema and ecchymoses noted. [place] + Neuro-Not oriented to time, place and person Unresponsiveness to verbal stimuli. Vital Signs Vital Signs Date Time Temp Pulse Resp B/P (MAP) Pulse Ox O2 Delivery O2 Flow Rate FiO2 08/14/18 17:42 Nasal Cannula 2.0 08/14/18 15:00 98.0 84 18 144/66 (92) 95 98.0 Assessment & Plan GRACIELA- Non oliguric , Pre-renal back to baseline renal function CKD stage 3- Baseline 1.4-1.7 Seen by me as OP Subacute bilateral infarctions in the region of the right thalamus, and possibly posterior right internal capsule and medial left thalamus, Recent temporal lobe stroke with aphasia, receptive and expressive components. combination of bilateral infarcts,has rendered her in a near-comatose state. Metabolic encephalopathy. Later Daughter informed me that family has has taken decision for Hospice as per Pt's wishes Labs Labs Laboratory Tests Test 08/13/18 00:15 08/13/18 04:30 08/13/18 05:56 08/13/18 12:15 Glucose (Fingerstick) 173 mg/dL (70-99) 204 mg/dL (70-99) 285 mg/dL (70-99) White Blood Count 12.9 x10^3/uL (4.0-11.0) Red Blood Count 3.51 x10^6/uL (3.50-5.40) Hemoglobin 11.5 g/dL (12.0-15.5) Hematocrit 34.3 % (36.0-47.0) Mean Corpuscular Volume 98 fL (79-100) Mean Corpuscular Hemoglobin 33 pg (25-35) Mean Corpuscular Hemoglobin Concent 34 g/dL (31-37) Red Cell Distribution Width 14.5 % (11.5-14.5) Platelet Count 276 x10^3/uL (140-400) Neutrophils (%) (Auto) 83 % (31-73) Lymphocytes (%) (Auto) 9 % (24-48) Monocytes (%) (Auto) 6 % (0-9) Eosinophils (%) (Auto) 2 % (0-3) Basophils (%) (Auto) 0 % (0-3) Neutrophils # (Auto) 10.7 x10^3uL (1.8-7.7) Lymphocytes # (Auto) 1.2 x10^3/uL (1.0-4.8) Monocytes # (Auto) 0.7 x10^3/uL (0.0-1.1) Eosinophils # (Auto) 0.3 x10^3/uL (0.0-0.7) Basophils # (Auto) 0.0 x10^3/uL (0.0-0.2) Sodium Level 139 mmol/L (136-145) Potassium Level 4.5 mmol/L (3.5-5.1) Chloride Level 101 mmol/L (98-107) Carbon Dioxide Level 29 mmol/L (21-32) Anion Gap 9 (6-14) Blood Urea Nitrogen 58 mg/dL (7-20) Creatinine 1.7 mg/dL (0.6-1.0) Estimated GFR (Cockcroft-Gault) 28.8 Glucose Level 196 mg/dL (70-99) Calcium Level 10.0 mg/dL (8.5-10.1) Test 08/13/18 18:04 08/13/18 23:32 08/14/18 05:51 08/14/18 09:05 Glucose (Fingerstick) 139 mg/dL (70-99) 177 mg/dL (70-99) 191 mg/dL (70-99) White Blood Count 10.0 x10^3/uL (4.0-11.0) Red Blood Count 3.58 x10^6/uL (3.50-5.40) Hemoglobin 11.6 g/dL (12.0-15.5) Hematocrit 35.1 % (36.0-47.0) Mean Corpuscular Volume 98 fL (79-100) Mean Corpuscular Hemoglobin 32 pg (25-35) Mean Corpuscular Hemoglobin Concent 33 g/dL (31-37) Red Cell Distribution Width 14.5 % (11.5-14.5) Platelet Count 300 x10^3/uL (140-400) Neutrophils (%) (Auto) 76 % (31-73) Lymphocytes (%) (Auto) 13 % (24-48) Monocytes (%) (Auto) 7 % (0-9) Eosinophils (%) (Auto) 3 % (0-3) Basophils (%) (Auto) 1 % (0-3) Neutrophils # (Auto) 7.6 x10^3uL (1.8-7.7) Lymphocytes # (Auto) 1.3 x10^3/uL (1.0-4.8) Monocytes # (Auto) 0.7 x10^3/uL (0.0-1.1) Eosinophils # (Auto) 0.3 x10^3/uL (0.0-0.7) Basophils # (Auto) 0.1 x10^3/uL (0.0-0.2) Sodium Level 140 mmol/L (136-145) Potassium Level 4.3 mmol/L (3.5-5.1) Chloride Level 102 mmol/L (98-107) Carbon Dioxide Level 30 mmol/L (21-32) Anion Gap 8 (6-14) Blood Urea Nitrogen 63 mg/dL (7-20) Creatinine 1.6 mg/dL (0.6-1.0) Estimated GFR (Cockcroft-Gault) 30.9 Glucose Level 233 mg/dL (70-99) Calcium Level 9.8 mg/dL (8.5-10.1) Test 08/14/18 11:56 Glucose (Fingerstick) 265 mg/dL (70-99) Laboratory Tests Test 08/13/18 23:32 08/14/18 05:51 08/14/18 09:05 08/14/18 11:56 Glucose (Fingerstick) 177 mg/dL (70-99) 191 mg/dL (70-99) 265 mg/dL (70-99) White Blood Count 10.0 x10^3/uL (4.0-11.0) Red Blood Count 3.58 x10^6/uL (3.50-5.40) Hemoglobin 11.6 g/dL (12.0-15.5) Hematocrit 35.1 % (36.0-47.0) Mean Corpuscular Volume 98 fL (79-100) Mean Corpuscular Hemoglobin 32 pg (25-35) Mean Corpuscular Hemoglobin Concent 33 g/dL (31-37) Red Cell Distribution Width 14.5 % (11.5-14.5) Platelet Count 300 x10^3/uL (140-400) Neutrophils (%) (Auto) 76 % (31-73) Lymphocytes (%) (Auto) 13 % (24-48) Monocytes (%) (Auto) 7 % (0-9) Eosinophils (%) (Auto) 3 % (0-3) Basophils (%) (Auto) 1 % (0-3) Neutrophils # (Auto) 7.6 x10^3uL (1.8-7.7) Lymphocytes # (Auto) 1.3 x10^3/uL (1.0-4.8) Monocytes # (Auto) 0.7 x10^3/uL (0.0-1.1) Eosinophils # (Auto) 0.3 x10^3/uL (0.0-0.7) Basophils # (Auto) 0.1 x10^3/uL (0.0-0.2) Sodium Level 140 mmol/L (136-145) Potassium Level 4.3 mmol/L (3.5-5.1) Chloride Level 102 mmol/L (98-107) Carbon Dioxide Level 30 mmol/L (21-32) Anion Gap 8 (6-14) Blood Urea Nitrogen 63 mg/dL (7-20) Creatinine 1.6 mg/dL (0.6-1.0) Estimated GFR (Cockcroft-Gault) 30.9 Glucose Level 233 mg/dL (70-99) Calcium Level 9.8 mg/dL (8.5-10.1) Review All relevant outside records, renal labs, imaging studies, telemetry/EKG's were reviewed. IGNACIO BRAND MD Aug 14, 2018 19:04
[2018-08-15 07:00] VITALS: BP 134/63
--- NOTE | 2018-08-15 08:33 | NUR ---
SW following. Spoke with J[facility] at Hospice and they a liaison will visit at 1100 for bed side assessment. Acceptance and admission pending. Will continue to follow. FATOU MCKEE.
[2018-08-15] MEDS ORDERED: LORazepam INTENSOL 2 MG/ML ORAL.CONC SL PRN (09:00)
[2018-08-15 10:23] VITALS: BP 90/38
--- NOTE | 2018-08-15 12:34 | PDOC ---
PROGRESS NOTES Chief Complaint Chief Complaint IMPRESSION HOSPICE, DNR Acute CVA w/ dysarthria/confusion New Subacute bilateral infarctions in the region of the right thalamus, and posterior right internal capsule and medial left thalamus, MRI showed Evidence of a new acute infarction in the region of the right thalamus, and possibly posterior right internal capsule and medial left thalamus. Left temporal infarction changes are again seen. There may be a new tiny focus of acute infarction in the anterior left temporal lobe. Elevated troponin 0.385 low concern for cardiac etiology suspect CVA and renal insufficiency contributing Recent mechanical Fall: no significant traumatic injury Recent Coumadin induced coagulopathy, transitioned to eliquis Cervical/lumbar stenosis with chronic L RTC tear Chronic A FIB CAD: past stents HTN HLP CKD3 , YULIANA acute on chronic insufficiency, will try diuresing in light of physical exam and supporting findings on x-ray with vascular congestion There is significant/critical stenosis with greater than than 90% luminal diameter reduction of the right P1 segment. 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 no significant stenosis identified of the cervical internal carotid arteries. ON MRI NECK History of Present Illness History of Present Illness Pt transferred out of ICU 08/14/18 Cannot recognize family members Now on hospice DNR-appropriately [facility] has no beds today will try again tomorrow Discussed with family members at bedside Patient has a new on chronic CVA. A lot of comorbidities namely A. fib on Coumadin DJD etc. PLAN: Off telemetry DNR Hospice packet initiated including Intensol, roxanol etc. 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 Labs Laboratory Tests Test 08/13/18 18:04 08/13/18 23:32 08/14/18 05:51 08/14/18 09:05 Glucose (Fingerstick) 139 mg/dL (70-99) 177 mg/dL (70-99) 191 mg/dL (70-99) White Blood Count 10.0 x10^3/uL (4.0-11.0) Red Blood Count 3.58 x10^6/uL (3.50-5.40) Hemoglobin 11.6 g/dL (12.0-15.5) Hematocrit 35.1 % (36.0-47.0) Mean Corpuscular Volume 98 fL (79-100) Mean Corpuscular Hemoglobin 32 pg (25-35) Mean Corpuscular Hemoglobin Concent 33 g/dL (31-37) Red Cell Distribution Width 14.5 % (11.5-14.5) Platelet Count 300 x10^3/uL (140-400) Neutrophils (%) (Auto) 76 % (31-73) Lymphocytes (%) (Auto) 13 % (24-48) Monocytes (%) (Auto) 7 % (0-9) Eosinophils (%) (Auto) 3 % (0-3) Basophils (%) (Auto) 1 % (0-3) Neutrophils # (Auto) 7.6 x10^3uL (1.8-7.7) Lymphocytes # (Auto) 1.3 x10^3/uL (1.0-4.8) Monocytes # (Auto) 0.7 x10^3/uL (0.0-1.1) Eosinophils # (Auto) 0.3 x10^3/uL (0.0-0.7) Basophils # (Auto) 0.1 x10^3/uL (0.0-0.2) Sodium Level 140 mmol/L (136-145) Potassium Level 4.3 mmol/L (3.5-5.1) Chloride Level 102 mmol/L (98-107) Carbon Dioxide Level 30 mmol/L (21-32) Anion Gap 8 (6-14) Blood Urea Nitrogen 63 mg/dL (7-20) Creatinine 1.6 mg/dL (0.6-1.0) Estimated GFR (Cockcroft-Gault) 30.9 Glucose Level 233 mg/dL (70-99) Calcium Level 9.8 mg/dL (8.5-10.1) Test 08/14/18 11:56 Glucose (Fingerstick) 265 mg/dL (70-99) Microbiology 08/06/18 Blood Culture - Final, Complete NO GROWTH AFTER 5 DAYS Medications Current Medications Sodium Chloride 500 ml @ 500 mls/hr 1X ONCE IV Last administered on 08/06/18at 16:21; Start 08/06/18 at 16:00; Stop 08/06/18 at 16:59; Status DC Ondansetron HCl (Zofran) 4 mg PRN Q6HRS PRN IV NAUSEA/VOMITING; Start 08/06/18 at 18:15; Stop 08/14/18 at 15:22; Status DC Morphine Sulfate (Morphine Sulfate) 1 mg PRN Q1HR PRN IV PAIN; Start 08/06/18 at 18:15; Stop 08/14/18 at 15:22; Status DC Lactulose (Lactulose) 20 gm PRN Q12HR PRN PO CONSTIPATION, 2ND CHOICE; Start at 18:15; Stop 08/14/18 at 15:22; Status DC Heparin Sodium (Porcine) (Heparin Sodium) 5,000 unit Q12HR SQ ; Start 08/06/18 at 21:00; Stop 08/06/18 at 21:00; Status DC Ascorbic Acid (Vitamin C) 500 mg DAILY PO Last administered on 08/08/18at 08:57; Start 08/07/18 at 09:00; Stop 08/12/18 at 16:59; Status DC Aspirin (Derek Aspirin) 325 mg DAILY PO Last administered on 08/08/18 08:56; Start 08/07/18 at 09:00; Stop 08/08/18 at 15:05; Status DC Calcium/Vitamin D (Oscal D 500mg/ 200uts) 1 tab DAILY PO Last administered on 08:57; Start 08/07/18 at 09:00; Stop 08/12/18 at 16:59; Status DC Docusate Sodium (Colace) 100 mg BID PO Last administered on 08/10/18 20:50; Start 08/06/18 at 21:00; Stop 08/12/18 at 20:37; Status DC Ferrous Sulfate (Feosol) 325 mg DAILY PO Last administered on 08/08/18 08:56; Start 08/07/18 at 09:00; Stop 08/12/18 at 16:59; Status DC Acetaminophen/ Hydrocodone Bitart (Lortab 5/325) 1 tab PRN Q12HRS PRN PO MODERATE PAIN Last administered on 08/08/18 02:32; Start 08/06/18 at 18:15; Stop 08/14/18 at 15:22; Status DC Metoprolol Tartrate (Lopressor) 25 mg BID PO Last administered on 08/08/18 08: 57; Start 08/06/18 at 21:00; Stop 08/09/18 at 19:16; Status DC Nitroglycerin (Nitrostat) 0.4 mg PRN Q5MIN PRN SL CHEST PAIN; Start 08/06/18 at 18:15 Oxycodone/ Acetaminophen (Percocet 5/325) 1 tab PRN Q6HRS PRN PO SEVERE PAIN Last administered on 08/14/18 13:12; Start 08/06/18 at 18:15; Stop 08/14/18 at 15:22; Status DC Potassium Chloride (Klor-Con) 10 meq DAILY PO Last administered on 08/08/18 08: 56; Start 08/07/18 at 09:00; Stop 08/12/18 at 16:59; Status DC Acetaminophen (Tylenol) 500 mg PRN Q8HRS PRN PO MILD PAIN / TEMP Last administered on 08/07/18 14:07; Start 08/06/18 at 19:00; Stop 08/08/18 at 14:52; Status DC Bisacodyl (Dulcolax Supp) 10 mg PRN DAILY PRN [place] CONSTIPATION Last administered on 08/12/18 17:29; Start 08/06/18 at 19:00; Stop 08/14/18 at 15:22; Status DC Diltiazem HCl (Cardizem 24hr Cd) 180 mg DAILY PO Last administered on 08/08/18 08:56; Start 08/07/18 at 09:00; Stop 08/09/18 at 11:49; Status DC Citalopram Hydrobromide (CeleXA) 40 mg DAILY PO Last administered on 08/14/18at 08:33; Start 08/07/18 at 09:00; Stop 08/14/18 at 15:22; Status DC Insulin Human Lispro (HumaLOG) 10 units TIDWMEALS SQ Last administered on at 12:51; Start 08/06/18 at 19:30; Stop 08/12/18 at 16:59; Status DC Insulin Glargine (Lantus) 34 units [id number] SQ Last administered on 08:40; Start 08/07/18 at 08:00; Stop 08/14/18 at 15:22; Status DC Losartan Potassium (Cozaar) 50 mg DAILY PO Last administered on 08/07/18 09:26 ; Start 08/07/18 at 09:00; Stop 08/08/18 at 07:30; Status DC Magnesium Hydroxide (Milk Of Magnesia) 2,400 mg PRN DAILY PRN PO CONSTIPATION, 1ST CHOICE; Start 08/06/18 at 19:00; Stop 08/14/18 at 15:22; Status DC Meclizine HCl (Antivert) 12.5 mg BID PO Last administered on 08/14/18 08:33; Start 08/06/18 at 21:00; Stop 08/14/18 at 15:22; Status DC Metolazone (Zaroxolyn) 5 mg DAILY PO Last administered on 08/07/18 09:23; Start 08/07/18 at 09:00; Stop 08/07/18 at 10:37; Status DC Multivitamins (Thera M Plus) 1 tab DAILY PO Last administered on 08/08/18 08:57 ; Start 08/07/18 at 09:00; Stop 08/12/18 at 16:59; Status DC Pantoprazole Sodium (Protonix) 40 mg DAILYAC PO Last administered on 08/09/18 09:28; Start 08/07/18 at 07:30; Stop 08/12/18 at 16:59; Status DC Polyethylene Glycol (miraLAX PACKET) 17 gm DAILY PO Last administered on at 08:33; Start 08/07/18 at 09:00; Stop 08/14/18 at 15:22; Status DC Famotidine (Pepcid) 20 mg DAILY PO Last administered on 08/14/18at 08:32; Start 08/07/18 at 09:00; Stop 08/14/18 at 15:22; Status DC Spironolactone (Aldactone) 25 mg DAILY PO Last administered on 08/07/18at 09:27; Start 08/07/18 at 09:00; Stop 08/08/18 at 12:43; Status DC Warfarin Sodium (Coumadin) 5 mg DAILY16 PO ; Start 08/06/18 at 19:30; Stop at 20:46; Status DC Warfarin Sodium (Coumadin Per Physician) 1 each PRN DAILY PRN MC SEE COMMENTS; Start 08/06/18 at 19:00; Stop 08/06/18 at 20:46; Status DC Bumetanide (Bumex) 4 mg BID94 PO Last administered on 08/07/18at 09:23; Start 08/07/18 at 09:00; Stop 08/07/18 at 10:33; Status DC Isosorbide Mononitrate (Imdur) 60 mg DAILY PO Last administered on 08/07/18at 09: 27; Start 08/07/18 at 09:00; Stop 08/08/18 at 07:30; Status DC Non-Formulary Medication (Lidocaine (Aspercreme)) 1 each DAILY TP ; Start at 09:00; Status UNV Non-Formulary Medication (Omeprazole ) 40 mg DAILY PO ; Start 08/07/18 at 09:00; Status UNV Multi-Ingredient Ointment (Analgesic [place]) 1 marisol PRN TID PRN TP MUSCLE PAIN; Start 08/06/18 at 20:45; Stop 08/06/18 at 20:45; Status DC Mirtazapine (Remeron) 7.5 mg QHS PO Last administered on 08/13/18at 20:50; Start 08/06/18 at 21:00; Stop 08/14/18 at 15:22; Status DC Multi-Ingredient Ointment (Analgesic [place]) 1 marisol PRN TID PRN TP MUSCLE PAIN Last administered on 08/06/18 22:17; Start 08/06/18 at 20:45 Apixaban (Eliquis) 5 mg BID PO Last administered on 08/08/18at 08:57; Start at 21:00; Stop 08/08/18 at 13:15; Status DC Info (Anti-Coagulation Monitoring By Pharmacy) 1 each PRN DAILY PRN MC SEE COMMENTS Last administered on 08/08/18at 13:22; Start 08/06/18 at 21:00; Stop 08/14 at 15:22; Status DC Acetaminophen (Tylenol) 650 mg PRN Q6HRS PRN PO TEMP > 100.4F; Start 08/07/18 at 09:00; Stop 08/14/18 at 15:22; Status DC Acetaminophen (Tylenol Supp) 650 mg PRN Q4HRS PRN W[place] TEMP > 100.4F Last administered on 08/13/18at 23:33; Start 08/07/18 at 09:00 Bumetanide (Bumex) 2 mg BID94 PO ; Start 08/07/18 at 16:00; Stop 08/08/18 at 12:43 ; Status DC Losartan Potassium (Cozaar) 50 mg NOON PO ; Start 08/08/18 at 12:00; Stop at 11:49; Status DC Naloxone HCl (Narcan) 0.4 mg 1X ONCE IV Last administered on 08/08/18at 10:47; Start 08/08/18 at 11:30; Stop 08/08/18 at 11:31; Status DC Atorvastatin Calcium (Lipitor) 40 mg QHS PO Last administered on 08/13/18at 20:50 ; Start 08/08/18 at 21:00; Stop 08/14/18 at 15:22; Status DC Levetiracetam 500 mg/Dextrose 105 ml @ 420 mls/hr Q12HR IV Last administered on 08/13/18at 07:57; Start 08/08/18 at 12:00; Stop 08/13/18 at 16:51; Status DC Apixaban (Eliquis) 2.5 mg BID PO ; Start 08/08/18 at 21:00; Stop 08/08/18 at 21:00 ; Status DC Enoxaparin Sodium (Lovenox 40mg Syringe) 40 mg Q24H SQ Last administered on 08/09at 18:37; Start 08/08/18 at 16:00; Stop 08/10/18 at 10:12; Status DC Metoprolol Tartrate (Lopressor Vial) 5 mg PRN Q6HRS PRN IVP HYPERTENSION, SEE COMMENTS; Start 08/08/18 at 15:45; Stop 08/08/18 at 17:09; Status DC Metoprolol Tartrate (Lopressor Vial) 5 mg Q6HRS IVP Last administered on at 12:37; Start 08/08/18 at 18:00; Stop 08/13/18 at 16:51; Status DC Dextrose (Dextrose 50%-Water Syringe) 25 gm STK-MED ONCE IV ; Start 08/08/18 at 17:25; Stop 08/08/18 at 17:26; Status DC Dextrose (Dextrose 50%-Water Syringe) 25 gm STK-MED ONCE IV ; Start 08/08/18 at 21:40; Stop 08/08/18 at 21:41; Status DC Dextrose (Dextrose 50%-Water Syringe) 12.5 gm PRN Q15MIN PRN IV SEE COMMENTS Last administered on 08/08/18at 21:45; Start 08/08/18 at 21:45; Stop 08/13/18 at 20: 56; Status DC Dextrose (Dextrose 50%-Water Syringe) 25 gm STK-MED ONCE IV ; Start 08/08/18 at 18:00; Stop 08/09/18 at 08:52; Status DC Digoxin (Lanoxin) 250 mcg PRN DAILY PRN IV SEE COMMENTS; Start 08/09/18 at 12:00 ; Stop 08/14/18 at 15:22; Status DC Enoxaparin Sodium (Lovenox 30mg Syringe) 30 mg Q24H SQ Last administered on 08/13at 16:12; Start 08/10/18 at 16:00; Stop 08/14/18 at 15:22; Status DC Bumetanide (Bumex) 1 mg BID92 IV Last administered on 08/13/18at 16:11; Start 08/12/18 at 10:00; Stop 08/13/18 at 16:51; Status DC Furosemide (Lasix) 20 mg 1X ONCE IVP ; Start 08/12/18 at 12:00; Stop 08/12/18 at 12:21; Status DC Aspirin (Aspirin) 300 mg DAILY WV Last administered on 08/14/18at 08:33; Start 08/13/18 at 09:00; Stop 08/14/18 at 15:22; Status DC Insulin Human Lispro (HumaLOG) 0-7 UNITS TIDWMEALS SQ ; Start 08/12/18 at 17:00; Stop 08/12/18 at 17:18; Status DC Dextrose (Dextrose 50%-Water Syringe) 12.5 gm PRN Q15MIN PRN IV SEE COMMENTS; Start 08/12/18 at 17:00 Insulin Human Lispro (HumaLOG) 0-7 UNITS Q6HRS SQ Last administered on at 12:18; Start 08/12/18 at 18:00; Stop 08/14/18 at 15:22; Status DC Docusate Sodium (Colace Solution) 100 mg BID PO Last administered on 08/14/18at 08:31; Start 08/12/18 at 20:37; Stop 08/14/18 at 15:22; Status DC Metoprolol Tartrate (Lopressor) 12.5 mg BID PO Last administered on 08/14/18at 08:32; Start 08/13/18 at 21:00; Stop 08/14/18 at 15:22; Status DC Levetiracetam (Keppra) 500 mg BID PEG Last administered on 08/14/18at 08:31; Start 08/13/18 at 21:00; Stop 08/14/18 at 15:22; Status DC Bumetanide (Bumex) 1 mg BID92 PO Last administered on 08/14/18at 14:14; Start at 09:00; Stop 08/14/18 at 15:22; Status DC Morphine Sulfate (Roxanol Conc) 5 mg PRN Q3HRS PRN SL PAIN Last administered on 08/14/18at 21:03; Start 08/14/18 at 12:00 Lorazepam (Ativan Intensol) 2 mg PRN Q6HRS PRN SL ANXIETY / AGITATION; Start at 09:00 Active Scripts Active Reported Doxycycline Hyclate 100 Mg Tablet 100 Mg PO BID Eliquis (Apixaban) 5 Mg Tablet 5 Mg PO BID Aspercreme 10% Cream (Trolamine Salicylate/Aloe Vera) 35.4 Gm Cream..g. 35.4 Gm TP TID PRN PRN Isosorbide Mononitrate Er (Isosorbide Mononitrate) 60 Mg Tab.er.24h 60 Mg PO DAILY Aspercreme (Lidocaine) 1 Each Adh..patch 1 Each TP DAILY Bumetanide 2 Mg Tablet 4 Mg PO BID Spironolactone 25 Mg Tablet 25 Mg PO DAILY Potassium Chloride 10 Meq Tablet.er 10 Meq PO DAILY Omeprazole 40 Mg Capsule.dr 40 Mg PO DAILY NITROGLYCERIN SubLingual (Nitroglycerin) 0.4 Mg Tab.subl 0.4 Mg SL PRN Q5MIN PRN Escitalopram Oxalate 20 Mg Tablet 1 Tab PO DAILY Diltiazem 24HR Cd (Diltiazem Hcl) 180 Mg Cap.er.24h 1 Cap PO DAILY Ascorbic Acid 500 Mg Tablet 500 Mg PO Multivitamins (Multivitamin) 1 Each Tablet 1 Tab PO DAILY Metolazone 5 Mg Tablet 5 Mg PO DAILY Novolog Flexpen (Insulin Aspart) 100 Unit/1 Ml Insuln.pen 10 Unit SQ TIDAC Tresiba Flextouch U-100 (Insulin Degludec) 100 Unit/1 Ml Insuln.pen 34 Unit SQ DAILYWBKFT Ferrous Sulfate 325 Mg Tablet 1 Tab PO DAILY Dulcolax (Bisacodyl) 10 Mg Supp.rect 10 Mg RC PRN DAILY PRN Aspirin 325 Mg Tablet 1 Tab PO DAILY Metoprolol Tartrate 25 Mg Tablet 25 Tab PO BID Acetaminophen 500 Mg Tablet 500 Mg PO PRN Q8HRS PRN Meclizine Hcl 12.5 Mg Tablet 1 Tab PO BID Hydrocodone-Apap 5-325 (Hydrocodone Bit/Acetaminophen) 1 Each Tablet 1 Tab PO Q12HR PRN Stool Softener (Docusate Sodium) 100 Mg Capsule 100 Mg PO BID Losartan Potassium 100 Mg Tablet 50 Mg PO DAILY Vitals/I & O Vital Sign - Last 24 Hours 08/14/18 08/14/18 08/14/18 08/14/18 13:12 14:14 15:00 17:42 Temp 98.0 98.0 Pulse 84 Resp 18 B/P (MAP) 144/66 (92) Pulse Ox 100 95 O2 Delivery Nasal Cannula Room Air Nasal Cannula Nasal Cannula O2 Flow Rate 2.0 2.0 2.0 08/14/18 08/14/18 08/14/18 08/15/18 20:00 21:03 22:05 07:00 Temp 97.5 97.5 Pulse 88 Resp 16 12 B/P (MAP) 134/63 (86) Pulse Ox 95 95 100 O2 Delivery Nasal Cannula Nasal Cannula Nasal Cannula Nasal Cannula O2 Flow Rate 2.0 2.0 2.0 2.0 08/15/18 10:23 Temp 96.8 96.8 Pulse 88 Resp 12 B/P (MAP) 90/38 (55) Pulse Ox 97 O2 Delivery Nasal Cannula O2 Flow Rate 2.0 Intake and Output 08/14/18 08/14/18 08/15/18 14:59 22:59 06:59 Intake Total 100 ml 0 ml Output Total 300 ml Balance 100 ml -300 ml 0 ml JOVANA GARCIA MD Aug 15, 2018 12:34
--- NOTE | 2018-08-15 13:35 | PDOC2 ---
PALLIATIVE CARE Palliative Care Note Palliative Care Patient remains minimally responsive. Does not follow commands. [facility] has evaluated and accepted patient. No beds available today. Maite --daughter aware. OSIEL FERRO Aug 15, 2018 13:35
--- NOTE | 2018-08-15 14:15 | NUR ---
[facility] has evaluated and accepted patient. No beds available today. Will continue to follow.
[2018-08-15] MEDS: MORPHINE SULFATE 20 MG/ML CONC SOLUTION. SL PRN (16:06)
--- NOTE | 2018-08-15 16:52 | PDOC ---
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 Recent temporal lobe stroke with aphasia, receptive and expressive components. 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 Cardioembolic phenomenon. The combination of bilateral infarcts, although each is fairly small and non- life-threatening, has rendered her in a near-comatose state. She is slowly improving. Metabolic encephalopathy. Respiratory distress. AFib. Hyperglycemia. Renal failure. DM. HTN. HLD. CHF. Obesity. Old superior L2 compression fracture, advanced degenerative disc disease L5-S1 , severe spinal stenosis L4-5, right greater than left L5-S1 neural foramina compromise, mild to moderate narrowing of the L5-S1 neural foramen, minimal narrowing of the left L5-S1 and L3-4 neural foramina, grade 1 anterior spondylolisthesis at L4-5, negligible anterior spondylolisthesis at L5-S1. There is facet degenerative change greater inferiorly of the lumbar spine. Cervical spondylosis: degenerative disc disease at C4-C7. Poor prognosis. RECOMMENDATIONS/PLAN: Palliative care consulted. Family decided for comfort care. Discussed with her daughter and [id number] in detail at bedside on 08/15/18. Past Medical History Cardiovascular: AFIB, CAD, CHF, HTN, Hyperlipidemia, Other ( endocarditis, deep vein thrombosis) Pulmonary: Pulmonary embolus, Pneumonia GI: Constipation, GERD, Other ( diarrhea) Heme/Onc: Anemia NOS, Other ( easy bruising) Psych: Depression Musculoskeletal: low back pain Endocrine: Diabetes Past Surgical History Appendectomy, Cholecystectomy, Cataract Removal, Total knee replacement ( bilateral), Tonsillectomy ( adenoids), Other ( coronary stents, left leg vein stripping, cardiac catheterization, right knee incision and drainage) Family History CAD Social History , lives in assisted living, no alcohol or tobacco Allergies Coded Allergies: Iodinated Contrast- Oral and IV Dye (Verified Allergy, Severe, Anaphylaxis , 07/19/17) adhesive tape (Verified Allergy, Intermediate, 07/19/17) I S O L A T I O N *CONTACT* (Verified Allergy, Unknown, 07/19/17) mrsa meperidine (Verified Adverse Reaction, Intermediate, Vomiting, 07/19/17) ROS Negative for fever, chills, weight loss, shortness of breath, chest pain, indigestion, hematochezia, melena, and dysuria. Full 14-point review of systems is negative. MEDICATIONS: Refer to [facility] PHYSICAL EXAMINATION: General appearance in subacute distress. HEENT: Normocephalic and nontraumatic. Eyes, nose, ears, and throat are unremarkable. Hearing decrease. Neck is supple. No lymphadenopathy. No Crepitus. Cardiovascular: S1, S2, irregular rate and rhythm. Pulmonary: Decreased to auscultation bilaterally. Abdomen: Bowel sounds are positive. Extremities: Edema and ecchymoses noted. No restriction of range of motion, but mo active movements noted. NEUROLOGICAL EXAMINATION: Eyes closed. Unresponsiveness to verbal stimuli. Not oriented to time, place and person. PERRL. EOMI not elicited. CN: Not able to access due to not follow commands. Muscle tone: Decreased. Muscle strength: Minimal movements to stimuli. DTR: 1 Plantar reflex: Neutral response bilaterally Gait: not able to walk. Sensory exam: Minimal movements to stimuli. Not able to access cerebellar signs. F-T-N test not performed due to not follow commands. Objective Objective Vital Signs Date Time Temp Pulse Resp B/P (MAP) Pulse Ox O2 Delivery O2 Flow Rate FiO2 08/15/18 16:06 97 Nasal Cannula 2.0 08/15/18 10:23 96.8 88 12 90/38 (55) 96.8 Intake and Output 08/15/18 07:00 Intake Total 100 ml Output Total 300 ml Balance -200 ml Intake Oral 0 ml Tube Feeding 100 ml Output Urine Total 300 ml Vitals Signs Vitals VS - Last 72 Hours, by Label Date Time Temp Pulse Resp B/P (MAP) Pulse Ox O2 Delivery O2 Flow Rate FiO2 08/15/18 16:06 97 Nasal Cannula 2.0 08/15/18 10:23 96.8 88 12 90/38 (55) 97 Nasal Cannula 2.0 96.8 08/15/18 07:00 97.5 88 12 134/63 (86) 100 Nasal Cannula 2.0 97.5 08/14/18 22:05 16 95 Nasal Cannula 2.0 08/14/18 21:03 95 Nasal Cannula 2.0 08/14/18 20:00 Nasal Cannula 2.0 08/14/18 17:42 Nasal Cannula 2.0 08/14/18 15:00 98.0 84 18 144/66 (92) 95 Nasal Cannula 2.0 98.0 08/14/18 14:14 Room Air 08/14/18 13:12 100 Nasal Cannula 2.0 08/14/18 11:00 97.8 68 16 103/53 (70) 100 Nasal Cannula 2.0 97.8 08/14/18 08:32 109 118/50 08/14/18 08:00 Nasal Cannula 2.0 08/14/18 07:00 97.9 109 118/50 (72) 99 Nasal Cannula 2.0 97.9 Laboratory Laboratory Microbiology 08/06/18 Blood Culture - Final, Complete NO GROWTH AFTER 5 DAYS Medication Medications Current Medications Lorazepam (Ativan Intensol) 2 mg PRN Q6HRS PRN SL ANXIETY / AGITATION; Start at 09:00 Comment Review of Relevant I have reviewed the following items alejandra (where applicable) has been applied. SAM PENA MD Aug 15, 2018 16:52
[2018-08-15 19:00] VITALS: BP 146/58
[2018-08-16 07:00] VITALS: BP 137/57
[2018-08-16] MEDS: MORPHINE SULFATE 20 MG/ML CONC SOLUTION. SL PRN ×2 (08:10→11:11)
--- NOTE | 2018-08-16 08:36 | NUR ---
Spoke with [facility]. They only have one bed available and Pt is 2nd on wait list at this time. provided a phone number to call once beds open as they have few patients that are close to expiring. Will continue to follow.
[2018-08-16] MEDS ORDERED: LORA2ORA7 SL (09:04)
[2018-08-16] MEDS ORDERED: MORP100S3 SL (09:04)
--- NOTE | 2018-08-16 10:59 | PDOC3 ---
Discharge Summary Visit Information Date of Admission: Aug 06, 2018 Date of Discharge: Aug 16, 2018 Admitting Diagnosis Comment: HOSPICE, DNR Acute CVA w/ dysarthria/confusion New Subacute bilateral infarctions in the region of the right thalamus, and posterior right internal capsule and medial left thalamus, MRI showed Evidence of a new acute infarction in the region of the right thalamus, and possibly posterior right internal capsule and medial left thalamus. Left temporal infarction changes are again seen. There may be a new tiny focus of acute infarction in the anterior left temporal lobe. Elevated troponin 0.385 low concern for cardiac etiology suspect CVA and renal insufficiency contributing Recent mechanical Fall: no significant traumatic injury Recent Coumadin induced coagulopathy, transitioned to eliquis Cervical/lumbar stenosis with chronic L RTC tear Chronic A FIB CAD: past stents HTN HLP CKD3 , YULIANA acute on chronic insufficiency, will try diuresing in light of physical exam and supporting findings on x-ray with vascular congestion There is significant/critical stenosis with greater than than 90% luminal diameter reduction of the right P1 segment. 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 no significant stenosis identified of the cervical internal carotid arteries. ON MRI NECK Final Diagnosis Problems Medical Problems: (1) Change in mental status Status: Acute Brief Hospital Course Allergies Allergies Coded Allergies Type Severity Reaction Last Updated Verified Iodinated Contrast- Oral and IV Dye Allergy Severe Anaphylaxis 07/19/17 Yes adhesive tape Allergy Intermediate 07/19/17 Yes meperidine Adverse Reaction Intermediate Vomiting 07/19/17 Yes Vital Signs Vital Signs Date Time Temp Pulse Resp B/P (MAP) Pulse Ox O2 Delivery O2 Flow Rate FiO2 08/16/18 08:10 16 98 Nasal Cannula 2.0 08/16/18 07:00 97.7 96 137/57 (83) 97.7 Lab Results Laboratory Tests Test 08/14/18 11:56 Glucose (Fingerstick) 265 mg/dL (70-99) Brief Hospital Course Ms. Astorga is a 83 old white female with lots of comorbidities some of which include an old CVA, A. fib on eliquis. She came in with another new CVA despite being on blood thinners. Unfortunately she was not able to recover quality-of- life this last CVA. Family appropriately opted for DNR and hospice. We are only doing comfort meds. She is not waking up, nonverbal, not recognizing family. But is calm. We are waitlisted second list on [facility] hospice. Hospice packet of outside DNR form signed Patient seen and examined, discussed with family members Discharge Information Condition at Discharge: Stable Disposition/Orders: D/C to Home w/ Hospice Scheduled Apixaban (Eliquis) 5 Mg Tablet, 5 MG PO BID for afib, (Reported) Entered as Reported by: JACQUIE GILMORE on 08/06/182049 Last Action: Continued on 08/06/182050 by WILLY VINCENT MD Aspirin (Aspirin) 325 Mg Tablet, 1 TAB PO DAILY, #30 Ref 5 (Reported) Entered as Reported by: PENNIE MILLER on 12/28/161921 Last Action: Continued on 08/06/181813 by WILLY VINCENT MD Bumetanide (Bumetanide) 2 Mg Tablet, 4 MG PO BID for ., (Reported) Entered as Reported by: JACQUIE GILMORE on 08/06/182017 Last Action: Converted on 08/06/182029 by WILLY VINCENT MD Diltiazem Hcl (Diltiazem 24HR Cd) 180 Mg Cap.er.24h, 1 CAP PO DAILY, #30 Ref 5 ( Reported) Entered as Reported by: RAYMOND TINEO on 09/19/172043 Last Action: Converted on 08/06/181814 by WILLY VINCENT MD Docusate Sodium (Stool Softener) 100 Mg Capsule, 100 MG PO BID, (Reported) Entered as Reported by: JAZZ DELCID on 05/10/132049 Last Action: Continued on 08/06/181814 by WILLY VINCENT MD Doxycycline Hyclate (Doxycycline Hyclate) 100 Mg Tablet, 100 MG PO BID for chronic leg infection, (Reported) Entered as Reported by: JACQUIE GILMORE on 08/07/18413 Last Action: New Order on 08/07/18413 by JACQUIE GILMORE Escitalopram Oxalate (Escitalopram Oxalate) 20 Mg Tablet, 1 TAB PO DAILY, #30 Ref 5 (Reported) Entered as Reported by: RAYMOND TINEO on 09/19/172043 Last Action: Converted on 08/06/181814 by WILLY VINCENT MD Ferrous Sulfate (Ferrous Sulfate) 325 Mg Tablet, 1 TAB PO DAILY, #30 Ref 3 ( Reported) Entered as Reported by: ARABELLA BUCKNER on 01/04/17 1347 Last Action: Continued on 08/06/181814 by WILLY VINCENT MD Insulin Aspart (Novolog Flexpen) 100 Unit/1 Ml Insuln.pen, 10 UNIT SQ TIDAC, ( Reported) Entered as Reported by: Marie Jimenez on 05/15/17 1444 Last Action: Converted on 08/06/181814 by WILLY VINCENT MD Insulin Degludec (Tresiba Flextouch U-100) 100 Unit/1 Ml Insuln.pen, 34 UNIT SQ DAILYWBKFT, (Reported) Entered as Reported by: JAMEEL VALLADARES on 03/12/17 1003 Last Action: Converted on 08/06/181814 by WILLY VINCENT MD Isosorbide Mononitrate (Isosorbide Mononitrate Er) 60 Mg Tab.er.24h, 60 MG PO DAILY for htn, (Reported) Entered as Reported by: JACQUIE GILMORE on 08/06/182017 Last Action: Converted on 08/06/182029 by WILLY VINCENT MD Lidocaine (Aspercreme) 1 Each Adh..patch, 1 EACH TP DAILY for joint pain, ( Reported) Entered as Reported by: JACQUIE GILMORE on 08/06/182017 Last Action: Converted on 08/06/182029 by WILLY VINCENT MD Losartan Potassium (Losartan Potassium) 100 Mg Tablet, 50 MG PO DAILY, (Reported ) Entered as Reported by: JAZZ DELCID on 05/10/132049 Last Action: Converted on 08/06/181814 by WILLY VINCENT MD Meclizine Hcl (Meclizine Hcl) 12.5 Mg Tablet, 1 TAB PO BID, #60 (Reported) Entered as Reported by: ALHAJI POPE on 01/17/16 0905 Last Action: Converted on 08/06/181814 by WILLY VINCENT MD Metolazone (Metolazone) 5 Mg Tablet, 5 MG PO DAILY, #30 Ref 0 (Reported) Entered as Reported by: Marie Jimenez on 05/15/17 1447 Last Action: Converted on 08/06/181814 by WILLY VINCENT MD Metoprolol Tartrate (Metoprolol Tartrate) 25 Mg Tablet, 25 TAB PO BID, #180 Ref 1 (Reported) Entered as Reported by: PEBBLES MENESES on 03/24/16 1403 Last Action: Continued on 08/06/181814 by WILLY VINCENT MD Multivitamin (Multivitamins) 1 Each Tablet, 1 TAB PO DAILY, #90 Ref 3 (Reported) Entered as Reported by: PARISH HDZ on 06/29/17 1555 Last Action: Converted on 08/06/181814 by WILLY VINCENT MD Omeprazole (Omeprazole) 40 Mg Capsule.dr, 40 MG PO DAILY, (Reported) Entered as Reported by: HARJIT LYLES on 02/24/181920 Last Action: Converted on 08/06/181814 by WILLY VINCENT MD Potassium Chloride (Potassium Chloride) 10 Meq Tablet.er, 10 MEQ PO DAILY, ( Reported) Entered as Reported by: HARJIT LYLES on 02/24/181920 Last Action: Continued on 08/06/181814 by WILLY VINCENT MD Spironolactone (Spironolactone) 25 Mg Tablet, 25 MG PO DAILY, (Reported) Entered as Reported by: HARJIT LYLES on 02/24/181920 Last Action: Converted on 08/06/181814 by WILLY VINCENT MD Scheduled PRN Acetaminophen (Acetaminophen) 500 Mg Tablet, 500 MG PO PRN Q8HRS PRN for PAIN, ( Reported) Entered as Reported by: JAYLYN MONCADA on 02/16/16 1936 Last Action: Converted on 08/06/181814 by WILLY VINCENT MD Bisacodyl (Dulcolax) 10 Mg Supp.rect, 10 MG RC PRN DAILY PRN for CONSTIPATION, Ref 0 (Reported) Entered as Reported by: ARABELLA BUCKNER on 01/04/17 1147 Last Action: Converted on 08/06/181814 by WILLY VINCENT MD Hydrocodone Bit/Acetaminophen (Hydrocodone-Apap 5-325 ) 1 Each Tablet, 1 TAB PO Q12HR PRN for PAIN, Ref 0 (Reported) Entered as Reported by: ALHAJI POPE on 01/17/16 0905 Last Action: Continued on 08/06/181814 by WILLY VINCENT MD Lorazepam (Lorazepam Intensol) 2 Mg/1 Ml Oral.conc, 2 MG SL PRN Q6HRS PRN for ANXIETY / AGITATION MDD 1, #30 Prescribed by: JOVANA GARCIA on 08/16/18 0904 Morphine Sulfate (Morphine Sulfate) 100 Mg/5 Ml Solution, 5 MG SL PRN Q3HRS PRN for PAIN MDD 1, #30 Prescribed by: JOVANA GARCIA on 08/16/18 0904 Nitroglycerin (NITROGLYCERIN SubLingual) 0.4 Mg Tab.subl, 0.4 MG SL PRN Q5MIN PRN for CHEST PAIN, (Reported) Entered as Reported by: RAYMOND TINEO on 09/19/172054 Last Action: Continued on 08/06/181814 by WILLY VINCENT MD Trolamine Salicylate/Aloe Vera (Aspercreme 10% Cream) 35.4 Gm Cream..g., 35.4 GM TP TID PRN PRN for PAIN, (Reported) Entered as Reported by: JACQUIE GILMORE on 08/06/182017 Last Action: Converted on 08/06/182029 by WILLY VINCENT MD Miscellaneous Medications Ascorbic Acid (Ascorbic Acid) 500 Mg Tablet, 500 MG PO, (Reported) Entered as Reported by: PARISH HDZ on 06/29/17 3333 Last Action: Continued on 08/06/181813 by MD JOSE STEELE CHERRIE Y MD Aug 16, 2018 10:59
--- NOTE | 2018-08-16 11:00 | SNU/HH DC ---
DISCHARGE ORDERS DISCHARGE INFORMATION: DISCHARGE DATE: Aug 16, 2018 FINAL DIAGNOSIS Problems Medical Problems: (1) Change in mental status Status: Acute CONDITION ON DISCHARGE: Stable CODE STATUS: Code Status: DNR/DNI [facility]: SNF STAY <30 DAYS: No HOSPICE: HOSPICE: Yes HOSPICE EVAL & TREAT: Yes LTAC: ADMIT TO LTAC: No POST DISCHARGE ORDERS: ACTIVITY ORDERS: No restrictions WEIGHT BEARING STATUS: No restrictions DIET AFTER DISCHARGE: WOUND/INCISION CARE: No wound care needed CHECKS AFTER DISCHARGE: CHECKS AFTER DISCHARGE: Weigh Yourself Daily COMMENTS: on hospice, DNR TREATMENT/EQUIPMENT ORDERS: ADAPTIVE EQUIPMENT NEEDED: None DISCHARGE MEDICATIONS: Home Meds Active Scripts Lorazepam (LORAZEPAM INTENSOL) 2 Mg/1 Ml Oral.conc, 2 MG SL PRN Q6HRS PRN for ANXIETY / AGITATION MDD 1, #30 MISC Prov:JOVANA GARCIA MD 08/16/18 Morphine Sulfate (MORPHINE SULFATE) 100 Mg/5 Ml Solution, 5 MG SL PRN Q3HRS PRN for PAIN MDD 1, #30 MISC Prov:JOVANA GARCIA MD 08/16/18 Reported Medications Doxycycline Hyclate (DOXYCYCLINE HYCLATE) 100 Mg Tablet, 100 MG PO BID for chronic leg infection, TAB 08/07/18 Apixaban (ELIQUIS) 5 Mg Tablet, 5 MG PO BID for afib, TAB 08/06/18 Trolamine Salicylate/Aloe Vera (ASPERCREME 10% CREAM) 35.4 Gm Cream..g., 35.4 GM TP TID PRN PRN for PAIN, EACH 08/06/18 Isosorbide Mononitrate (ISOSORBIDE MONONITRATE ER) 60 Mg Tab.er.24h, 60 MG PO DAILY for htn, TAB.SR 08/06/18 Lidocaine (Aspercreme) 1 Each Adh..patch, 1 EACH TP DAILY for joint pain, PATCH 08/06/18 Bumetanide (BUMETANIDE) 2 Mg Tablet, 4 MG PO BID for ., TAB 08/06/18 Spironolactone (SPIRONOLACTONE) 25 Mg Tablet, 25 MG PO DAILY, TAB 02/24/18 Potassium Chloride (POTASSIUM CHLORIDE) 10 Meq Tablet.er, 10 MEQ PO DAILY, TAB 02/24/18 Omeprazole (OMEPRAZOLE) 40 Mg Capsule.dr, 40 MG PO DAILY, CAP 02/24/18 Nitroglycerin (NITROGLYCERIN SubLingual) 0.4 Mg Tab.subl, 0.4 MG SL PRN Q5MIN PRN for CHEST PAIN, BOTTLE 09/19/17 Escitalopram Oxalate (ESCITALOPRAM OXALATE) 20 Mg Tablet, 1 TAB PO DAILY, #30 TAB 5 Refills 09/19/17 Diltiazem Hcl (DILTIAZEM 24HR CD) 180 Mg Cap.er.24h, 1 CAP PO DAILY, #30 CAP 5 Refills 09/19/17 Ascorbic Acid (ASCORBIC ACID) 500 Mg Tablet, 500 MG PO, TAB 06/29/17 Multivitamin (MULTIVITAMINS) 1 Each Tablet, 1 TAB PO DAILY, #90 TAB 3 Refills 06/29/17 Metolazone (METOLAZONE) 5 Mg Tablet, 5 MG PO DAILY, #30 TAB 0 Refills 05/15/17 Insulin Aspart (NOVOLOG FLEXPEN) 100 Unit/1 Ml Insuln.pen, 10 UNIT SQ TIDAC, SYR 05/15/17 Insulin Degludec (Tresiba Flextouch U-100) 100 Unit/1 Ml Insuln.pen, 34 UNIT SQ DAILYWBKFT, EACH 03/12/17 Ferrous Sulfate (FERROUS SULFATE) 325 Mg Tablet, 1 TAB PO DAILY, #30 TAB 3 Refills 01/04/17 Bisacodyl (DULCOLAX) 10 Mg Supp.rect, 10 MG RC PRN DAILY PRN for CONSTIPATION, SUPP.RECT 0 Refills 01/04/17 Aspirin (ASPIRIN) 325 Mg Tablet, 1 TAB PO DAILY, #30 TAB 5 Refills 12/28/16 Metoprolol Tartrate (METOPROLOL TARTRATE) 25 Mg Tablet, 25 TAB PO BID, #180 TAB 1 Refill 03/24/16 Acetaminophen (ACETAMINOPHEN) 500 Mg Tablet, 500 MG PO PRN Q8HRS PRN for PAIN 02/16/16 Meclizine Hcl (MECLIZINE HCL) 12.5 Mg Tablet, 1 TAB PO BID, #60 TAB 01/17/16 Hydrocodone Bit/Acetaminophen (HYDROCODONE-APAP 5-325 ) 1 Each Tablet, 1 TAB PO Q12HR PRN for PAIN, TAB 0 Refills 01/17/16 Docusate Sodium (STOOL SOFTENER) 100 Mg Capsule, 100 MG PO BID 05/10/13 Losartan Potassium (LOSARTAN POTASSIUM) 100 Mg Tablet, 50 MG PO DAILY 05/10/13 JOVANA GARCIA MD Aug 16, 2018 11:00
--- NOTE | 2018-08-16 11:30 | NUR ---
SW following pt. Pt has been at [facility] and will transport via [email or web address] at 1330. Pt's granddaughter notified of plan in room.
--- NOTE | 2018-08-16 13:50 | NUR ---
Report called to receiving nurse Joanne at [facility]. Pt dismissed to [facility] per bed at 1450 per ambulance. Transfer orders given to ambulance drivers. Addendum: 08/16/18 at 1354 by ARABELLA BUCKNER RN Correction on time of discharge 1350 not 1450.
== END 2018-08-16 13:50 | disposition hospice, inpatient (51) | DRG 64 ==
LOC: ER 15:29 → 6 SOUTH 18:10 → 1 WEST ICU 08-08 11:35 → 6 SOUTH 08-13 11:41 → 5 NORTH 08-14 19:30
PROVIDERS: ADMIT Internal Medicine; ATTEND Internal Medicine
PROC: 5A09357 Assistance with Respiratory Ventilation, Less than 24 Consecutive Hours, Continuous Positive Airway Pressure (ICD-10-PCS; principal; 2018-08-09)
PROC: 5A09357 Assistance with Respiratory Ventilation, Less than 24 Consecutive Hours, Continuous Positive Airway Pressure (ICD-10-PCS; 2018-08-10)
DX: I63.233 Cerebral infarction due to unspecified occlusion or stenosis of bilateral carotid arteries (principal); G93.41 Metabolic encephalopathy; J96.00 Acute respiratory failure, unspecified whether with hypoxia or hypercapnia; I13.0 Hypertensive heart and chronic kidney disease with heart failure and stage 1 through stage 4 chronic kidney disease, or unspecified chronic kidney disease; I25.10 Atherosclerotic heart disease of native coronary artery without angina pectoris; R47.1 Dysarthria and anarthria; E11.22 Type 2 diabetes mellitus with diabetic chronic kidney disease; E66.01 Morbid (severe) obesity due to excess calories; I48.2 Chronic atrial fibrillation; I50.9 Heart failure, unspecified; N18.3 Chronic kidney disease, stage 3 (moderate); E11.65 Type 2 diabetes mellitus with hyperglycemia; E78.5 Hyperlipidemia, unspecified; F41.9 Anxiety disorder, unspecified; G89.29 Other chronic pain; I69.320 Aphasia following cerebral infarction; J45.909 Unspecified asthma, uncomplicated; K21.9 Gastro-esophageal reflux disease without esophagitis; M43.16 Spondylolisthesis, lumbar region; M43.17 Spondylolisthesis, lumbosacral region; M46.90 Unspecified inflammatory spondylopathy, site unspecified; M47.812 Spondylosis without myelopathy or radiculopathy, cervical region; M48.061 Spinal stenosis, lumbar region without neurogenic claudication; M51.36 Other intervertebral disc degeneration, lumbar region; M51.37 Other intervertebral disc degeneration, lumbosacral region; M54.16 Radiculopathy, lumbar region; Z51.5 Encounter for palliative care; Z66 Do not resuscitate; Z96.653 Presence of artificial knee joint, bilateral; F32.9 Major depressive disorder, single episode, unspecified; Z79.01 Long term (current) use of anticoagulants; Z79.2 Long term (current) use of antibiotics; Z79.4 Long term (current) use of insulin; Z79.82 Long term (current) use of aspirin; Z79.899 Other long term (current) drug therapy; Z82.49 Family history of ischemic heart disease and other diseases of the circulatory system; Z83.3 Family history of diabetes mellitus; Z85.3 Personal history of malignant neoplasm of breast; Z86.14 Personal history of Methicillin resistant Staphylococcus aureus infection; Z86.72 Personal history of thrombophlebitis; Z86.711 Personal history of pulmonary embolism; Z90.12 Acquired absence of left breast and nipple; Z90.49 Acquired absence of other specified parts of digestive tract; Z90.710 Acquired absence of both cervix and uterus; Z95.5 Presence of coronary angioplasty implant and graft; Z87.01 Personal history of pneumonia (recurrent); Z87.440 Personal history of urinary (tract) infections; Z68.30 Body mass index [BMI] 30.0-30.9, adult
CPT/HCPCS: 36415; 36600; 70450; 70544; 70547; 70551; 71045; 72125; 72128; 72148; 73030; 73060; 74018; 74176; 80048; 80053; 80061; 81001; 82274; 82553; 82805; 82962; 83605; 83735; 84443; 84484; 85007; 85025; 85610; 85730; 87040; 87641; 87804; 93005; 93306; 93880; 94660; 95816; 96360; J1650; J1815; J1953; J2310; J3490; J7040; J7042; J8597; 92610; 97110; 97112; 97530; 97535; 99285-25